=== PATIENT | female | born 1960 | race Caucasian/White ===

== ENCOUNTER → 2020-06-18 10:12 | Outpatient (BNVA) | payer MEDICARE, MEDICAID, SELFPAY | PROVIDERS: PCP Internal Medicine; Referring Provider Internal Medicine; Visit Provider Internal Medicine Gastroenterology | DX: Z13.89 Encounter for screening for other disorder (principal) | CPT/HCPCS: Q3014 ==

== ENCOUNTER 2020-06-25 15:34 | Outpatient (REF) | payer MEDICARE, MEDICAID, SELFPAY | END 2020-06-25 15:35 | disposition home or self-care (01) | LOC: HO.LAB 15:34 | PROVIDERS: Visit Provider Internal Medicine | DX: Z20.828 Contact with and (suspected) exposure to other viral communicable diseases (principal) | CPT/HCPCS: C9803; U0003 ==

== ENCOUNTER → 2020-07-04 10:17 | Outpatient (BNVA) | payer MEDICARE, MEDICAID, SELFPAY | PROVIDERS: PCP Internal Medicine; Referring Provider Internal Medicine; Visit Provider Nurse Practitioner Gerontology | DX: Z13.89 Encounter for screening for other disorder (principal) | CPT/HCPCS: Q3014 ==

== ENCOUNTER → 2020-10-12 09:39 | Outpatient (BNVA) | payer MEDICARE, MEDICAID, SELFPAY | PROVIDERS: PCP Internal Medicine; Visit Provider Internal Medicine Gastroenterology | DX: K85.80 Other acute pancreatitis without necrosis or infection (principal) | CPT/HCPCS: Q3014 ==

== ENCOUNTER 2020-11-15 12:39 | Outpatient (REF) | payer MEDICARE, MEDICAID, SELFPAY | END 2020-11-15 12:40 | disposition home or self-care (01) | LOC: HO.LAB 12:39 | PROVIDERS: PCP Internal Medicine; Visit Provider Internal Medicine | DX: Z13.89 Encounter for screening for other disorder (principal) ==

== ENCOUNTER 2020-11-16 09:38 | Outpatient (REF) | payer MEDICARE, MEDICAID, SELFPAY ==
[2020-11-16 10:18] LABS: MANUAL DIFF FLAG NO
[2020-11-16 10:31] LABS: Eosinophils Absolute Auto 0.1 X10*3/uL (0.0-0.4); Hemoglobin 12.9 g/dl (12.0-16.0); Imm Gran Abs Auto 0.01 X10*3/uL (0.00-0.03); Imm Gran Pct Auto 0.3 % (0.0-0.4); Lymphocytes Absolute Auto 1.2 X10*3/uL (1.2-4.9); Lymphocytes Percent Auto 30.2 % (20-40); Mean Corpuscular HGB Conc 32.3 g/dl (31.0-35.0); Mean Corpuscular Hemoglobin 33.6 pg (27.0-33.0); Mean Corpuscular Volume 104.2 fL (80-98); Mean Platelet Volume 9.7 fL (9.4-12.3); Monocytes Absolute Auto 0.4 X10*3/uL (0.1-1.2); Monocytes Percent Auto 9.6 % (2-11); Neutrophils Absolute Auto 2.3 X10*3/uL (2.0-8.3); Neutrophils Percent Auto 56.9 % (45-73); Platelet Count 178 X10*3/uL (160-400); Red Blood Count 3.84 X10*6/uL (4.20-5.50); Red Cell Distribution Width 13.5 % (11.0-16.0)
[2020-11-16 10:44] LABS: Amylase 62 U/L (28-100); Lipase 17 U/L (8-78)
[2020-11-16 10:50] LABS: Alanine Aminotransferase 19 U/L (0-31); Albumin Level 3.7 g/dL (3.5-5.0); Alkaline Phosphatase 98 U/L (39-117); Anion Gap 10 (12-20); Aspartate Amino Transferase 19 U/L (5-31); Bilirubin Total 0.3 mg/dL (0.0-1.0); Blood Urea Nitrogen 17 mg/dL (9-16); Carbon Dioxide 35 mmol/L (22-29); Chloride 101 mmol/L (96-108); Cholesterol 196 mg/dL; Estimated Glomerular Filt Rate > 60; Glucose Random 86 mg/dL (60-115); HDL Cholesterol 58 mg/dL; LDL Cholesterol Calculated 122 mg/dl; Potassium 4.2 mmol/L (3.3-5.1); Sodium 142 mmol/L (135-145); Total Protein 6.5 g/dL (6.5-8.0); Triglycerides 83 mg/dL
[2020-11-16 11:06] LABS: Free T4 (Free Thyroxine) 0.91 ng/dL (0.71-1.85); Vitamin D 25-OH Total 49.1 ng/mL (>30)
[2020-11-16 11:14] LABS: Ferritin 112 ng/mL (10-250)
[2020-11-16 11:24] LABS: Vitamin B12 483 pg/mL (200-900)
== END 2020-11-16 09:39 | disposition home or self-care (01) ==
LOC: HO.LAB 09:38
PROVIDERS: Internal Medicine Gastroenterology; PCP Internal Medicine; Visit Provider Internal Medicine
DX: K85.80 Other acute pancreatitis without necrosis or infection (principal); E78.00 Pure hypercholesterolemia, unspecified; E03.9 Hypothyroidism, unspecified
CPT/HCPCS: 36415; 80053; 80061; 82150; 82306; 82607; 82728; 82746; 83690; 84439; 84443; 85025

== ENCOUNTER 2020-11-19 12:59 | Outpatient (REF) | payer MEDICARE, MEDICAID, SELFPAY ==
[2020-11-19 13:18] LABS: Glucose Urine UA NEG (NEG); Leukocyte Esterase Urine 2+ (NEG); Nitrite Urine NEG (NEG); Specific Gravity - Urine 1.015 (1.005-1.025); UACC Culture Trigger YES; Urine Blood NEG (NEG); Urine Ketones NEG (NEG); Urine Protein NEG (NEG-TRACE)
[2020-11-19 13:22] LABS: Appearance Urine CLOUDY; Color Urine YELLOW
[2020-11-19 13:44] LABS: Amorphous Sediment Urine 2+ /LPF; Mucus Urine 1+ /LPF; RBC Urine 0 /HPF (0); Squamous Epithelial Cell Urine 1+ /LPF
== END 2020-11-19 13:00 | disposition home or self-care (01) ==
LOC: HO.LNP 12:59
PROVIDERS: Visit Provider Internal Medicine
DX: R30.0 Dysuria (principal)
CPT/HCPCS: 81001; 81003; 87086

== ENCOUNTER 2021-01-04 09:01 | Outpatient (REF) | payer MEDICARE, MEDICAID, SELFPAY ==
[2021-01-04 11:18] LABS: Free T4 (Free Thyroxine) 0.87 ng/dL (0.71-1.85); Thyroid Stimulating Hormone 0.91 uIU/mL (0.32-4.0)
== END 2021-01-04 09:02 | disposition home or self-care (01) ==
LOC: HO.LAB 09:01
PROVIDERS: Nurse Practitioner Gerontology; PCP Internal Medicine; Visit Provider Internal Medicine
DX: E03.8 Other specified hypothyroidism (principal)
CPT/HCPCS: 36415; 84439; 84443

== ENCOUNTER 2021-01-08 14:22 | Outpatient (REF) | payer MEDICARE, MEDICAID, SELFPAY ==
[2021-01-08 14:54] LABS: Glucose Urine UA NEG (NEG); Leukocyte Esterase Urine 1+ (NEG); Nitrite Urine NEG (NEG); Specific Gravity - Urine 1.015 (1.005-1.025); Urine Blood NEG (NEG); Urine Ketones NEG (NEG); Urine Protein NEG (NEG-TRACE)
[2021-01-08 14:57] LABS: Appearance Urine CLEAR; Color Urine YELLOW
[2021-01-08 15:12] LABS: RBC Urine 0-2 /HPF (0)
== END 2021-01-08 14:23 | disposition home or self-care (01) ==
LOC: HO.LNP 14:22
PROVIDERS: Visit Provider Internal Medicine
DX: E03.9 Hypothyroidism, unspecified (principal)
CPT/HCPCS: 81001

== ENCOUNTER → 2021-05-28 09:12 | Outpatient (BNVA) | payer MEDICARE, MEDICAID, SELFPAY | PROVIDERS: PCP Internal Medicine; Visit Provider Internal Medicine Gastroenterology | DX: K85.80 Other acute pancreatitis without necrosis or infection (principal) | CPT/HCPCS: Q3014 ==

== ENCOUNTER 2021-06-24 09:31 | Outpatient (REF) | payer MEDICARE, MEDICAID, SELFPAY | END 2021-06-24 09:32 | disposition home or self-care (01) | LOC: HO.LAB 09:31 | PROVIDERS: PCP Internal Medicine; Visit Provider Internal Medicine | DX: Z13.89 Encounter for screening for other disorder (principal) ==

== ENCOUNTER 2021-08-12 10:15 | Outpatient (REF) | payer MEDICARE, MEDICAID, SELFPAY ==
[2021-08-12 10:53] LABS: MANUAL DIFF FLAG NO
[2021-08-12 11:15] LABS: Basophils Absolute Auto 0.1 X10*3/uL (0.0-0.2); Basophils Percent Auto 1.1 % (0-2); Eosinophils Absolute Auto 0.1 X10*3/uL (0.0-0.4); Eosinophils Percent Auto 1.3 % (0-4); Hematocrit 42.9 % (37.0-47.0); Hemoglobin 13.8 g/dl (12.0-16.0); Imm Gran Abs Auto 0.02 X10*3/uL (0.00-0.03); Imm Gran Pct Auto 0.4 % (0.0-0.4); Lymphocytes Absolute Auto 1.2 X10*3/uL (1.2-4.9); Lymphocytes Percent Auto 25.7 % (20-40); Mean Corpuscular HGB Conc 32.2 g/dl (31.0-35.0); Mean Corpuscular Hemoglobin 33.2 pg (27.0-33.0); Mean Corpuscular Volume 103.1 fL (80.0-98.0); Mean Platelet Volume 9.4 fL (9.4-12.3); Monocytes Absolute Auto 0.4 X10*3/uL (0.1-1.2); Neutrophils Absolute Auto 2.9 x10*3/uL (2.0-8.3); Neutrophils Percent Auto 63.5 % (45-73); Platelet Count 183 X10*3/uL (160-400); Red Blood Count 4.16 X10*6/uL (4.20-5.50); Red Cell Distribution Width 13.7 % (11.0-16.0); White Blood Count 4.6 X10*3/uL (4.8-10.8)
[2021-08-12 11:22] LABS: Appearance Urine CLEAR; Color Urine STRAW; Glucose Urine UA NEG (NEG); Leukocyte Esterase Urine TRACE (NEG); Nitrite Urine NEG (NEG); PH 6.5 (5.0-8.0); Specific Gravity - Urine 1.015 (1.005-1.025); UACC Culture Trigger YES; Urine Blood NEG (NEG); Urine Ketones NEG (NEG); Urine Protein NEG (NEG-TRACE)
[2021-08-12 12:01] LABS: TSH reflex Free T4 0.71 uIU/mL (0.32-4.0)
[2021-08-12 12:02] LABS: Renal Epithelial Cells Urine TRACE /LPF; Squamous Epithelial Cell Urine TRACE /LPF
[2021-08-12 12:03] LABS: RBC Urine 0 /HPF (0)
[2021-08-12 12:09] LABS: Estimated Average Glucose 108 mg/dL; Hemoglobin A1c % 5.4 %
[2021-08-12 12:11] LABS: Alanine Aminotransferase 17 U/L (0-31); Albumin Level 3.8 g/dL (3.5-5.0); Alkaline Phosphatase 104 U/L (39-117); Anion Gap 9 (12-20); Aspartate Amino Transferase 21 U/L (5-31); Bilirubin Total 0.5 mg/dL (0.0-1.0); Blood Urea Nitrogen 17 mg/dL (9-16); Carbon Dioxide 34 mmol/L (22-29); Chloride 103 mmol/L (96-108); Cholesterol 223 mg/dL; Estimated Glomerular Filt Rate 53; Glucose Fasting 94 mg/dL (60-99); HDL Cholesterol 61 mg/dL; LDL Cholesterol Calculated 145 mg/dl; Lipase 14 U/L (8-78); Potassium 4.4 mmol/L (3.3-5.1); Sodium 142 mmol/L (135-145); Total Protein 6.9 g/dL (6.5-8.0); Triglycerides 88 mg/dL
== END 2021-08-12 10:16 | disposition home or self-care (01) ==
LOC: HO.LAB 10:15
PROVIDERS: PCP Internal Medicine; Visit Provider Nurse Practitioner Acute Care
DX: R41.82 Altered mental status, unspecified (principal)
CPT/HCPCS: 36415; 80053; 80061; 81001; 83036; 83690; 84443; 85025; 87086

== ENCOUNTER 2021-08-16 14:05 | Outpatient (REF) | payer MEDICARE, MEDICAID, SELFPAY ==
[2021-08-16 16:12] LABS: Free T4 (Free Thyroxine) 0.81 ng/dL (0.71-1.85); Thyroid Stimulating Hormone 0.92 uIU/mL (0.32-4.0)
[2021-08-20 18:42] LABS: Thyrotropin Receptor Antibody 3.68 IU/L (<=2.00)
[2021-08-23 15:31] LABS: Thyroid Stimulating Immunoglob <89 % baseline (<140)
== END 2021-08-16 14:06 | disposition home or self-care (01) ==
LOC: HO.LAB 14:05
PROVIDERS: PCP Internal Medicine; Visit Provider Nurse Practitioner Gerontology
DX: E03.9 Hypothyroidism, unspecified (principal); E06.3 Autoimmune thyroiditis; Q90.9 Down syndrome, unspecified; Z86.73 Personal history of transient ischemic attack (TIA), and cerebral infarction without residual deficits
CPT/HCPCS: 36415; 83520; 84439; 84443; 84445; 99212

== ENCOUNTER 2021-12-11 13:05 | Outpatient (REF) | payer MEDICARE, MEDICAID, SELFPAY ==
[2021-12-11 14:15] LABS: Appearance Urine CLEAR; Color Urine YELLOW; Glucose Urine UA NEG (NEG); Leukocyte Esterase Urine NEG (NEG); Nitrite Urine NEG (NEG); PH 5.5 (5.0-8.0); Specific Gravity - Urine <= 1.005 (1.005-1.025); Urine Blood NEG (NEG); Urine Ketones NEG (NEG); Urine Protein NEG (NEG-TRACE)
== END 2021-12-11 13:06 | disposition home or self-care (01) ==
LOC: HO.LAB 13:05
PROVIDERS: PCP Internal Medicine; Visit Provider Internal Medicine
DX: R30.0 Dysuria (principal); R41.82 Altered mental status, unspecified
CPT/HCPCS: 81003

== ENCOUNTER → 2022-06-17 09:06 | Outpatient (BNVA) | payer MEDICARE, MEDICAID, SELFPAY | PROVIDERS: PCP Internal Medicine; Visit Provider Urology | DX: R33.9 Retention of urine, unspecified (principal) | CPT/HCPCS: 99212 ==

== ENCOUNTER → 2022-07-10 09:51 | Outpatient (REF) | payer MEDICARE, MEDICAID, SELFPAY ==
--- NOTE | 2022-07-10 10:57 | ECG_ITS ---
Test Reason : preop Blood Pressure : / mmHG Vent. Rate : 055 BPM Atrial Rate : 055 BPM P-R Int : 220 ms QRS Dur : 130 ms QT Int : 478 ms P-R-T Axes : 049 -55 022 degrees QTc Int : 457 ms Sinus bradycardia with 1st degree A-V block Left axis deviation Left bundle branch block Abnormal ECG When compared with ECG of 07-SEP-2019 10:19, Left bundle branch block is now Present Referred By: Yahaira Arana Electronically Signed By:ALESHIA CID
== END ==
LOC: HO.CARD 09:51
PROVIDERS: PCP Internal Medicine; Visit Provider Nurse Practitioner Family
DX: Z01.818 Encounter for other preprocedural examination (principal); E03.9 Hypothyroidism, unspecified
CPT/HCPCS: 93005; 99212

== ENCOUNTER 2022-07-10 10:30 | Outpatient (REF) | payer MEDICARE, MEDICAID, SELFPAY ==
[2022-07-10 13:32] LABS: MANUAL DIFF FLAG NO
[2022-07-10 14:09] LABS: Basophils Percent Auto 1.2 % (0-2); Eosinophils Absolute Auto 0.1 X10*3/uL (0.0-0.4); Eosinophils Percent Auto 3.7 % (0-4); Hematocrit 40.4 % (37.0-47.0); Imm Gran Abs Auto 0.01 X10*3/uL (0.00-0.03); Imm Gran Pct Auto 0.3 % (0.0-0.4); Lymphocytes Absolute Auto 1.1 X10*3/uL (1.2-4.9); Lymphocytes Percent Auto 32.4 % (20-40); Mean Corpuscular HGB Conc 32.2 g/dl (31.0-35.0); Mean Corpuscular Hemoglobin 33.9 pg (27.0-33.0); Mean Corpuscular Volume 105.2 fL (80.0-98.0); Mean Platelet Volume 10.3 fL (9.4-12.3); Monocytes Absolute Auto 0.4 X10*3/uL (0.1-1.2); Monocytes Percent Auto 10.8 % (2-11); Neutrophils Absolute Auto 1.7 x10*3/uL (2.0-8.3); Neutrophils Percent Auto 51.6 % (45-73); Platelet Count 156 X10*3/uL (160-400); Red Blood Count 3.84 X10*6/uL (4.20-5.50); Red Cell Distribution Width 13.4 % (11.0-16.0); White Blood Count 3.2 X10*3/uL (4.8-10.8)
[2022-07-10 14:14] LABS: Prothrombin Time 11.3 SEC (10.0-13.1)
[2022-07-10 14:44] LABS: Alanine Aminotransferase 9 U/L (0-31); Albumin Level 3.7 g/dL (3.5-5.0); Alkaline Phosphatase 97 U/L (39-117); Anion Gap 11 (12-20); Aspartate Amino Transferase 17 U/L (5-31); Bilirubin Total 0.3 mg/dL (0.0-1.0); Blood Urea Nitrogen 19 mg/dL (9-16); Calcium 8.7 mg/dL (8.4-10.2); Carbon Dioxide 31 mmol/L (22-29); Chloride 104 mmol/L (96-108); Cholesterol 186 mg/dL; Estimated Glomerular Filt Rate > 60; Glucose Random 78 mg/dL (60-115); HDL Cholesterol 53 mg/dL; LDL Cholesterol Calculated 112 mg/dl; Potassium 4.2 mmol/L (3.3-5.1); Sodium 142 mmol/L (135-145); Total Protein 6.6 g/dL (6.5-8.0); Triglycerides 107 mg/dL
[2022-07-10 14:48] LABS: Free T4 (Free Thyroxine) 0.97 ng/dL (0.71-1.85); Thyroid Stimulating Hormone 0.55 uIU/mL (0.32-4.0); Vitamin D 25-OH Total 44.9 ng/mL (>30)
[2022-07-10 14:50] LABS: TSH reflex Free T4 0.56 uIU/mL (0.32-4.0)
[2022-07-10 14:51] LABS: Free T4 (Free Thyroxine) 0.93 ng/dL (0.71-1.85); Thyroid Stimulating Hormone 0.52 uIU/mL (0.32-4.0)
[2022-07-10 15:02] LABS: Vitamin B12 347 pg/mL (200-900)
== END 2022-07-10 10:31 | disposition home or self-care (01) ==
LOC: HO.10HDL 10:30
PROVIDERS: Internal Medicine Endocrinology, Diabetes & Metabolism; Absent Provider Internal Medicine; Referring Provider Nurse Practitioner Family; Visit Provider Internal Medicine
DX: Z01.818 Encounter for other preprocedural examination (principal); Z13.29 Encounter for screening for other suspected endocrine disorder; E03.9 Hypothyroidism, unspecified; R41.82 Altered mental status, unspecified; E78.00 Pure hypercholesterolemia, unspecified
CPT/HCPCS: 36415; 80053; 80061; 82306; 82607; 82746; 84439; 84443; 85025; 85610

== ENCOUNTER → 2022-07-31 14:02 | Outpatient (BNVA) | payer MEDICARE, MEDICAID, SELFPAY | PROVIDERS: PCP Internal Medicine; Referring Provider Internal Medicine; Visit Provider Internal Medicine | DX: Z01.810 Encounter for preprocedural cardiovascular examination (principal); I44.7 Left bundle-branch block, unspecified | CPT/HCPCS: 99202 ==

== ENCOUNTER → 2022-08-05 13:51 | Outpatient (REF) | payer MEDICARE, MEDICAID, SELFPAY ==
--- NOTE | 2022-08-05 13:54 | CA_ITS ---
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 The visually estimated ejection fraction is between 65-70%. - E/E prime ratio is >15, consistent with elevated filling pressures. Evidence suggests grade I (mild) diastolic dysfunction. - There is moderate posterior mitral annular calcification. Findings Left Ventricle Normal left ventricular cavity size. The left ventricular systolic function is normal. The visually estimated ejection fraction is between 65-70%. There is no evidence of regional wall motion abnormalities. E/E prime ratio is >15, consistent with elevated filling pressures. Evidence suggests grade I (mild) diastolic dysfunction. There is mild septal asymmetric hypertrophy. LV peak GLS -20.6%. Right Ventricle Normal right ventricular cavity size and systolic function. Atria The left atrium is mildly dilated. Interatrial shunt cannot be excluded. The right atrium is normal in size. Aortic Valve There is a normal trileaflet aortic valve. There is no aortic valve stenosis. There is trace (trivial) aortic valve regurgitation. Mitral Valve There is moderate posterior mitral annular calcification. There is trace mitral valve regurgitation. There is no mitral valve stenosis. Pulmonic Valve The pulmonic valve is likely normal. Tricuspid Valve Normal tricuspid valve structure. There is mild tricuspid valve regurgitation. There is no evidence of pulmonary hypertension. Great Vessels The asc aorta is normal in size. Venous The inferior vena cava is normal in size and collapses greater than 50% with inspiration. Pericardium/Pleural There is no evidence of pericardial effusion. Prior Study Comparison No significant change compared to prior study dated: 07/04/2018. Measurements 2D Linear Measurements IVSd: 1.16 0.6-0.9/0.6-1.0 cm LVIDd: 3.25 3.9-5.3/4.2-5.9 cm LVIDd Index: 2.78 2.4-3.2/2.2-3.1 cm/m2 LVIDs: 1.62 2.0-3.6 cm LVPWd: 1.00 0.7-1.1 cm LA Diam: 2.90 2.7-3.8/3.0-4.0 cm LAIDs Index: 2.48 1.5-2.3 cm/m2 LV Mass: 128.70 67-162/88-224 g LV Mass Index: 110.00 43-95/49-115 g/m2 LVOT Diam: 2.00 3.0+(-)1.3 cm 2D Systolic Function EF 4C: 69.80 >55% EF 2C: 78.10 >55% EF BiP: 74.90 >55% Mitral Valve MV Pk E: 1.03 MV PK A: 1.12 MV Decel Time: 369.00 E/A: 0.90 E'Lateral: 5.48 E'Medial: 5.03 E/E' Med: 20.50 E/E' Lat: 18.80 PHT: 108.00 MVA PHT: 2.04 Decel Blackford: 2.81 Aortic Valve AoV Pk Paul: 1.48 AoV Mn Paul: 1.10 AoV VTI: 0.37 AoV Pk Grad: 9.00 Aov Mn Grad: 5.00 HAL Cont.VTI: 2.74 LVOT LVOT Pk Paul: 1.25 LVOT Mn Paul: 0.95 LVOT VTI: 0.33 LVOT Pk Grad: 6.00 LVOT Mn Grad: 4.00 LVOT Diam: 2.00 LVOT Area: 3.14 Diastolic Function MV Pk E: 1.03 MV Pk A: 1.12 E/A: 0.90 E'Medial: 5.03 E/E' Med: 20.50 E' Laterial: 5.48 E/E' Lat: 18.80 Right Ventricle TAPSE (mm): 20.00 TVS' Paul: 11.40 Tricuspid Valve TR Pk Paul: 2.50 TR Pk Grad: 25.00 RA Press: 3.00 RVSP: 28.00 Great Vessels Aorta Sinus of Valsalva: 3.46 2.0-3.[address] Ridge: 2.36 1.7-3.4 cm Ao Asc: 3.30 2.1-3.4 cm Updated in Other Vendor System with Status of Final Tian Crane MD electronically signed on 08/06/2022 9:01:37 AM with status of Final
== END ==
LOC: HO.CARD 13:51
PROVIDERS: Visit Provider Internal Medicine
DX: Z01.810 Encounter for preprocedural cardiovascular examination (principal); I44.7 Left bundle-branch block, unspecified
CPT/HCPCS: 93306; 93356

== ENCOUNTER 2022-08-19 08:00 | Outpatient (REF) | payer MEDICARE, MEDICAID, SELFPAY ==
[2022-08-19 08:30] LABS: MANUAL DIFF FLAG NO
[2022-08-19 09:21] LABS: Basophils Absolute Auto 0.1 X10*3/uL (0.0-0.2); Basophils Percent Auto 1.3 % (0-2); Eosinophils Absolute Auto 0.1 X10*3/uL (0.0-0.4); Eosinophils Percent Auto 1.3 % (0-4); Hematocrit 38.3 % (37.0-47.0); Hemoglobin 12.2 g/dl (12.0-16.0); Imm Gran Abs Auto 0.01 X10*3/uL (0.00-0.03); Imm Gran Pct Auto 0.3 % (0.0-0.4); Lymphocytes Absolute Auto 0.8 X10*3/uL (1.2-4.9); Lymphocytes Percent Auto 21.5 % (20-40); Mean Corpuscular HGB Conc 31.9 g/dl (31.0-35.0); Mean Corpuscular Hemoglobin 33.8 pg (27.0-33.0); Mean Corpuscular Volume 106.1 fL (80.0-98.0); Mean Platelet Volume 10.2 fL (9.4-12.3); Monocytes Absolute Auto 0.3 X10*3/uL (0.1-1.2); Monocytes Percent Auto 9.1 % (2-11); Neutrophils Absolute Auto 2.5 x10*3/uL (2.0-8.3); Neutrophils Percent Auto 66.5 % (45-73); Platelet Count 159 X10*3/uL (160-400); Red Blood Count 3.61 X10*6/uL (4.20-5.50); Red Cell Distribution Width 13.2 % (11.0-16.0); White Blood Count 3.7 X10*3/uL (4.8-10.8)
[2022-08-19 10:19] LABS: Anion Gap 13 (12-20); Blood Urea Nitrogen 24 mg/dL (9-16); Calcium 8.9 mg/dL (8.4-10.2); Carbon Dioxide 31 mmol/L (22-29); Chloride 105 mmol/L (96-108); Estimated Glomerular Filt Rate 56; Glucose Random 83 mg/dL (60-115); Potassium 4.2 mmol/L (3.3-5.1); Sodium 145 mmol/L (135-145)
== END 2022-08-19 08:01 | disposition home or self-care (01) ==
LOC: HO.LAB 08:00
PROVIDERS: PCP Internal Medicine; Visit Provider Nurse Practitioner Family
DX: Z01.818 Encounter for other preprocedural examination (principal); Z13.0 Encounter for screening for diseases of the blood and blood-forming organs and certain disorders involving the immune mechanism
CPT/HCPCS: 36415; 80048; 85025

== ENCOUNTER 2023-01-07 12:56 | Outpatient (REF) | payer MEDICARE, MEDICAID, SELFPAY ==
[2023-01-07 14:02] LABS: Hematocrit 40.7 % (37.0-47.0); Hemoglobin 13.2 g/dl (12.0-16.0); Mean Corpuscular HGB Conc 32.4 g/dl (31.0-35.0); Mean Corpuscular Hemoglobin 34.6 pg (27.0-33.0); Mean Corpuscular Volume 106.5 fL (80.0-98.0); Mean Platelet Volume 10.1 fL (9.4-12.3); Platelet Count 170 X10*3/uL (160-400); Red Blood Count 3.82 X10*6/uL (4.20-5.50); Red Cell Distribution Width 13.8 % (11.0-16.0); White Blood Count 3.8 X10*3/uL (4.8-10.8)
[2023-01-07 14:33] LABS: Anion Gap 15 (12-20); Blood Urea Nitrogen 17 mg/dL (9-16); Calcium 9.2 mg/dL (8.4-10.2); Carbon Dioxide 26 mmol/L (22-29); Chloride 108 mmol/L (96-108); Estimated Glomerular Filt Rate > 60; Glucose Random 68 mg/dL (60-115); Potassium 4.5 mmol/L (3.3-5.1); Sodium 144 mmol/L (135-145)
[2023-01-07 14:53] LABS: TSH reflex Free T4 1.02 uIU/mL (0.32-4.0)
== END 2023-01-07 12:57 | disposition home or self-care (01) ==
LOC: HO.LAB 12:56
PROVIDERS: PCP Internal Medicine; Visit Provider Nurse Practitioner Family
DX: Z01.818 Encounter for other preprocedural examination (principal)
CPT/HCPCS: 36415; 80048; 84443; 85027; 85610; 93005

== ENCOUNTER 2023-04-27 15:47 | Inpatient (IN) | payer MEDICARE, MEDICAID, SELFPAY ==
--- NOTE | ~2023-04-27 | CT_ITS ---
EXAMINATION: CT ANGIOGRAM OF THE CHEST WITH AND WITHOUT CONTRAST (CT PULMONARY ANGIOGRAM FOR PE) CLINICAL INFORMATION: Reason for Exam hypoxia, covid 3wk ago COMPARISON: Previous chest x-ray most recent from 2019 TECHNIQUE: Prior to contrast administration, noncontrast localization images were obtained. Subsequently, multidetector volumetric imaging was performed from the thoracic inlet to below the diaphragms following the administration of 80 mL Omnipaque 350 intravenous contrast. No contrast reaction reported Sagittal, coronal, and MIP oblique sagittal reformatted images were obtained on the CT workstation, uploaded to PACS, and reviewed. This CT examination was performed using dose optimization techniques as appropriate, variously including the following: *Automated exposure control *Adjustment of mA and/or kV according to patient size (this includes techniques or standardized protocols for targeted exams where dose is matched to indication/reason for exam; i.e. extremities or head) *Use of iterative reconstruction technique Total exam dose-length product 137 mGy-cm FINDINGS: QUALITY OF STUDY/CONTRAST BOLUS: Satisfactory. PULMONARY ARTERIES: No pulmonary emboli. THORACIC AORTA: No aneurysm. LUNG: Large area of right or space disease suggestive of pneumonia. Smaller areas of airspace right middle lobe and left lower lobe small areas well. PLEURA: No pleural effusion or pneumothorax. MEDIASTINUM: Slightly enlarged heart size. No pericardial effusion. Enlarged right subcarinal lymph node measuring 2 cm in short axis. Additional smaller mediastinal lymph nodes. Difficult to exclude wall thickening of the midthoracic esophagus versus mediastinal adenopathy or changes due to underdistention. No evidence of septal bowing or right heart strain. CORONARY ARTERY CALCIFICATION: None visualized on this study. CHEST WALL/AXILLA: No axillary or internal mammary lymphadenopathy. OSSEOUS STRUCTURES: No acute or suspicious osseous abnormality. UPPER ABDOMEN: Small cyst in the right lobe of the liver. There is Reflux of contrast into the hepatic veins to suggest elevated right heart pressures. CT/CT angio chest PE protocol IMPRESSION: No evidence of pulmonary embolism. Right lower lobe pneumonia and smaller pneumonia in the right middle and left lower lobes. Enlarged right subcarinal mediastinal lymph node. Question enlarged left precarinal lymph node versus thickening of the esophagus. Chest CT follow-up with IV contrast following resolution of pneumonia recommended. VTE:
--- NOTE | ~2023-04-27 | CT_ITS ---
EXAMINATION: CT ABDOMEN AND PELVIS WITH CONTRAST CLINICAL INFORMATION: Abdominal pain and diarrhea COMPARISON: Previous CT ultrasound and MR of the abdomen from 2019 TECHNIQUE: Multidetector volumetric images were obtained from the superior aspect of the liver through the pubic symphysis following administration 85 mL of Omnipaque 350 intravenous contrast. Sagittal and coronal reformatted images were obtained on the technologist's workstation. Oral contrast: Yes This CT examination was performed using dose optimization techniques as appropriate, variously including the following: *Automated exposure control *Adjustment of mA and/or kV according to patient size (this includes techniques or standardized protocols for targeted exams where dose is matched to indication/reason for exam; i.e. extremities or head) *Use of iterative reconstruction technique DLP: 286 mGy-cm FINDINGS: Limited due to motion artifact. LUNG BASES: See chest CT from today LIVER, GALLBLADDER, AND BILIARY TREE: The liver is normal in size, shape, and attenuation. Stable 1 cm low-attenuation lesion in posterior segment of the right lobe the liver suggestive of a cyst. No other focal hepatic lesion or biliary ductal dilatation is present. The gallbladder is unremarkable with no evidence of radiopaque gallstones, gallbladder wall thickening, or obvious pericholecystic inflammatory changes. PANCREAS: Unremarkable. SPLEEN: Unremarkable. ADRENAL GLANDS: Unremarkable. KIDNEYS AND URETERS: The kidneys are normal in size, shape, and attenuation. No hydronephrosis, hydroureter, or calculi seen. No perinephric stranding. BLADDER: Well distended bladder. GASTROINTESTINAL TRACT: The small and large bowel are unremarkable. The appendix is not seen. The stomach is slightly dilated and fluid filled. ABDOMINAL WALL: No significant hernia is appreciated. LYMPH NODES: Normal. VASCULAR: Unremarkable. PELVIC VISCERA: Unremarkable. OSSEOUS STRUCTURES: Mild anterior subluxation of L3 with respect to L4 probably secondary to facet arthritis. CT/CT abdomen pelvis w IV con IMPRESSION: Limited due to motion artifact. Slightly dilated fluid-filled stomach. Stable liver cyst. Distended bladder. Fleischner guidelines were followed.
[2023-04-27 15:58] VITALS: BP 100/58; BP 126/83; PULSE 55; PULSE 69; RESP 18; TEMP 37.1; O2SAT 90; O2SAT 92; BMI 18.7
[2023-04-27 16:00] VITALS: O2SAT 86
--- NOTE | 2023-04-27 16:17 | ED_ITS ---
HPI - Abdominal Pain General Chief Complaint: Abdominal Pain Stated Complaint: abd pain, diarrhea, non verbal Time Seen by Provider: 04/27/23 15:57 Source: EMS and other (snf staff) Mode of arrival: EMS Limitations: physical limitation (Dementia, Down syndrome,) History of Present Illness HPI narrative: Patient is a 63-year-old female was brought to the emergency department via EMS with detention. Patient reportedly had two semi formed bowel movements today. After the last one she appeared as though she turned very white and per the anhydrous ammonia production supervisor present, the prior staff member thought as though her knees were going to give way so she lowered the patient to the floor. There was no reported loss of consciousness. Upon palpating her abdomen the patient appeared to be wincing in pain at that time, EMS was then called. When asked, staff deny any recent constipation or straining, having difficulty with bowel movements. Patient is noted to be hypoxic on room air with O2 saturation 86% upon arrival, when asked, staff reports that she has not had any recent respiratory symptoms, the household had COVID-19 3 weeks ago, patient reportedly had a mild cough in the beginning but has not had any issues since then. She does have dysphagia and is a aspiration precaution with thickened liquids and pureed diet Related Data Home Medications Medication Instructions Recorded Confirmed gabapentin 300 mg capsule 300 mg PO BID 01/10/21 04/27/23 fluoride (sodium) 1.1 % dental 1 appl PO BEDTIME 06/17/22 04/27/23 cream (SF 5000 Plus) oxcarbazepine 300 mg tablet 300 mg PO BID 06/17/22 04/27/23 ondansetron HCl 4 mg tablet 4 mg PO Q6H PRN Nausea And Vomiting 07/31/22 04/27/23 oxcarbazepine 150 mg tablet 150 mg PO BID 07/31/22 04/27/23 (Trileptal) lorazepam 1 mg tablet 1 mg PO DAILY PRN Anxiety 04/27/23 04/27/23 Previous Rx's Medication Instructions Recorded trazodone 50 mg tablet 50 mg PO BEDTIME PRN sleep 90 days 06/24/22 #90 tabs cholecalciferol (vitamin D3) 25 25 mcg PO QAM #90 tabs 07/02/22 mcg (1,000 unit) tablet starch (thickening) (Thick-It oral See Rx Instructions PO TIDWMEAL 07/25/22 powder) #6,120 grams aspirin 81 mg chewable tablet 81 mg PO DAILY #90 tabs 08/12/22 sennosides 8.6 mg-docusate sodium 1 tab PO BEDTIME #28 tabs 08/12/22 50 mg tablet (Senna Plus) calcium carbonate 600 mg-vitamin 1 tab PO BID 28 days #180 tabs 09/23/22 D3 10 mcg (400 unit) tablet Synthroid 137 mcg tablet 137 mcg PO DAILY 30 days #90 tabs 01/01/23 (levothyroxine) ibuprofen 100 mg/5 mL oral 200 mg (10 mL) PO Q6H PRN pain 03/16/23 suspension #120 mL acetaminophen 650 mg/20.3 mL oral 650 mg (20.3 mL) PO Q6H PRN fever 04/22/23 solution or pain #609 mL Allergies Allergy/AdvReac Type Severity Reaction Status Date / Time Sulfa (Sulfonamide Allergy Mild HIVES Verified 01/07/23 12:13 Antibiotics) sulfamethoxazole Allergy Mild HIVES Verified 01/07/23 12:13 [From Bactrim] amoxicillin [Amoxicillin] Allergy Unknown HIVES Verified 01/07/23 12:13 Clindamycin HCl Allergy Unknown rash Verified 01/07/23 12:13 trimethoprim [From Bactrim] Allergy Unknown HIVES Verified 01/07/23 12:13 Review of Systems Review of Systems Yes Unobtainable due to mental status PMFSH Past Medical History Attestation statement: The following information was validated with the patient. Source: old records reviewed Medical History Preoperative cardiovascular examination New onset left bundle branch block (LBBB) Lethargy COVID-19 virus infection Mental status alteration Medicare annual wellness visit, subsequent Colon cancer screening Atlantoaxial instability Cholelithiasis Mental and behavioral problem Hypercholesterolemia Vitamin D deficiency Closed right ankle fracture Patent foramen ovale Hypothyroid Megaloblastic anemia CVA (cerebral vascular accident) Cataracts, bilateral Down syndrome Jorge L's disease Surgical History Clubfoot Hx of tubal ligation Hx of cataract surgery History of colonoscopy Family History Family History Father No problems noted. Mother Hx of cancer of lung Social History Social History Household Members: Unknown / Unable to assess Household Members Other:: CHD Housing: Other Housing Other:: detention Unable to assess alcohol history related to: Unable to respond and Unknown Alcohol intake: never Patient Tobacco Use Status: Never used Tobacco e-Cigarette/Vaping Use: Never Used Second Hand Smoke Exposure: No Advance Directives Date on File: 04/27/23 service: No Current occupational status: disabled Cognitive needs: Yes Hearing needs: No Vision needs: No Physical Exam ED Vital Signs: Vital Signs - 24 hr 04/27/23 15:58 04/27/23 16:00 04/27/23 20:01 Temperature 98.8 F Pulse Rate 69 77 Respiratory Rate 18 16 Blood Pressure 100/58 L Pulse Oximetry 90 L 86 L 88 L Oxygen Delivery Method Nasal Cannula Room Air Room Air BMI result Body Mass Index 18.7 Appearance: Alert.? Nonverbal. No acute distress.? Baseline affect per staff member. Eyes: Pupils equal, round and reactive to light.? ENT: Pharynx normal.?? Neck: Normal inspection.? Neck supple.?? CVS: Heart sounds normal. Normal heart rate and rhythm.? Pulses normal.?? Respiratory: No respiratory distress.? Lung sounds clear to auscultation bilaterally. Room-air hypoxia?? Abdomen: Soft and non-tender. Hyperactive bowel sounds. No pulsatile mass.?? Skin: Skin warm and dry.? Normal skin color.? ? Extremities: No lower extremity edema.? No calf ttp? Neuro: Moves all extremities spontaneously. Course Reevaluation(s) Reevaluation #1: CBC is without leukocytosis. Does not meet SIRS criteria. Lactic acid is 2.2, likely secondary to hypoxia, not consistent with sepsis. CT angio of the chest without evidence of pulmonary embolism, there is however a multilobar pneumonia, given history of dysphagia, concern for aspiration pneumonia, will cover with ceftriaxone and metronidazole given allergies. Discussed this case with hospitalist, Dr. Patel, accepted for admission to medicine service Time: 20:03 Medical Decision Making Medical Decision Making MDM Narrative: Patient is a 63-year-old female with past medical history of Down syndrome, left bundle-branch block, urinary retention, hypercholesterolemia, Jorge L's, hypothyroidism, pancreatitis, dementia, dysphagia, CVA, patent Preston ovale, cholelithiasis presenting to emergency department after a reported near syncopal episode after bowel movement, initial concern of abdominal pain upon palpation. Upon arrival her abdominal examination is benign, she has hyperactive bowel sounds, no rigidity guarding or distension. She is noted to have room air hypoxia without any respiratory distress, she is afebrile without tachycardia. She had recent COVID-19 infection, this coupled with her history of dysphagia, plan to obtain CT angio of the chest to exclude pulmonary embolism vs. pneumonia with aspiration risk. Im addition will obtain CT of the abdomen and pelvis to exclude intra-abdominal pathology. Will obtain CBC to evaluate for leukocytosis/ anemia, CMP and lipase to evaluate for abnormal electrolytes /abnormal renal function/ abnormal hepatic/biliary function, and Urinalysis. Differential Diagnosis Differential Diagnoses: The differential diagnosis associated with the presentation includes (Gastroenteritis, diverticulitis, appendicitis, bowel obstruction, aspiration will plan, pneumonia, pulmonary embolism, presyncope, vasovagal) Admission/Observation Consideration of admission/observation: Escalation of care including admission/observation considered (Considered admission for near syncope, hypoxia, see course narrative for further detail) Lab Data MDM Lab Attestation statement: I reviewed the patient's lab results. (See course narrative for further detail) 04/27/23 16:43 04/27/23 16:43 Labs: Lab Results 04/27/23 04/27/23 04/27/23 Range/Units 16:43 19:02 19:50 WBC 5.6 (4.8-10.8) X10*3/uL RBC 4.11 L (4.20-5.50) X10*6/uL Hgb 14.0 (12.0-16.0) g/dl Hct 43.3 (37.0-47.0) % MCV 105.4 H (80.0-98.0) fL MCH 34.1 H (27.0-33.0) pg MCHC 32.3 (31.0-35.0) g/dl RDW 13.8 (11.0-16.0) % Plt Count 163 (160-400) X10*3/uL MPV 9.5 (9.4-12.3) fL Immature Gran % (Auto) 0.5 H (0.0-0.4) % Neut % (Auto) 85.4 H (45-73) % Lymph % (Auto) 11.0 L (20-40) % Barrow % (Auto) 2.3 (2-11) % Eos % (Auto) 0.4 (0-4) % Baso % (Auto) 0.4 (0-2) % Lymph # (Auto) 0.6 L (1.2-4.9) X10*3/uL Barrow # (Auto) 0.1 (0.1-1.2) X10*3/uL Eos # (Auto) 0.0 (0.0-0.4) X10*3/uL Baso # (Auto) 0.0 (0.0-0.2) X10*3/uL Abs Immat Gran (auto) 0.03 (0.00-0.03) X10*3/uL Absolute Neuts (auto) 4.8 (2.0-8.3) x10*3/uL Absolute Nucleated RBC 0.000 (0.0-0.012) X10*3/uL Nucleated RBC % (auto) 0.0 (0.0-0.2) /100WBC PT 10.4 L (11.1-13.3) SEC INR 0.9 (0.9-1.1) Sodium 143 (135-145) mmol/L Potassium 4.2 (3.3-5.1) mmol/L Chloride 104 (96-108) mmol/L Carbon Dioxide 30 H (22-29) mmol/L Anion Gap 13 (12-20) BUN 23 H (9-16) mg/dL Creatinine 0.94 (0.5-1.4) mg/dL Estim Creat Clear Calc 39.1 Estimated GFR > 60 Random Glucose 109 (60-115) mg/dL Lactic Acid 2.2 H* (0.5-2.0) mmol/L Lactic Acid F/U @ 2Hr 1.5 (0.5-2.0) mmol/L Calcium 9.2 (8.4-10.2) mg/dL Magnesium 2.1 (1.6-2.6) mg/dL Total Bilirubin 0.2 (0.0-1.0) mg/dL AST 23 (5-31) U/L ALT 16 (0-31) U/L Alkaline Phosphatase 88 (39-117) U/L B-Natriuretic Peptide 92 (<100) pg/mL Total Protein 7.0 (6.5-8.0) g/dL Albumin 3.6 (3.5-5.0) g/dL Lipase 13 (8-78) U/L Urine Color Yellow Urine Appearance Clear Urine pH 7.5 (5.0-9.0) Ur Specific Tabiona 1.020 (1.005-1.025) Urine Protein Negative (Neg-Trace) mg/dL Urine Glucose (UA) Negative (Negative) mg/dL Urine Ketones Negative (Negative) mg/dL Urine Blood Negative (Negative) Urine Nitrite Negative (Negative) Ur Leukocyte Esterase Negative (Negative) Stool Occult Blood NEGATIVE (NEGATIVE) COVID-19 (DENIZ) Positive A (Negative) COVID-19 Clin Com See Note Influenza Type A (EDILBERTO) Negative (Negative) Influenza Type B (EDILBERTO) Negative (Negative) Influenza A & B Note See Note Independent Interpretation I performed an independent interpretation of an: CT Scan Radiology Impression Discussion of test interpretation with radiology: I have reviewed the radiologist's reading. Radiologist Impression: CT/CT angio chest PE protocol IMPRESSION: No evidence of pulmonary embolism. Right lower lobe pneumonia and smaller pneumonia in the right middle and left lower lobes. Enlarged right subcarinal mediastinal lymph node. Question enlarged left precarinal lymph node versus thickening of the esophagus. Chest CT follow-up with IV contrast following resolution of pneumonia recommended. CT/CT abdomen pelvis w IV con IMPRESSION: Limited due to motion artifact. Slightly dilated fluid-filled stomach. Stable liver cyst. Distended bladder. Independent Historian Clinical information obtained from an independent historian. History obtained from or confirmed by: EMS and Other (snf staff) External Record Review External record reviewed: Outpatient record and Prior outpatient labs Medications Administered Generic Name Dose Route Start Last Admin Trade Name Freq PRN Reason Stop Dose Admin Dexamethasone Sodium Phosphate 6 mg 04/27/23 20:15 04/27/23 21:44 Dexamethasone Sod Phosphate 4 Mg/Ml Vial IVPUSH 6 mg DAILY DANDY Administration Enoxaparin Sodium 40 mg 04/27/23 21:00 04/27/23 21:44 Enoxaparin Sodium 40 Mg/0.4 Ml Syringe SUBCUT 40 mg Q24H DANDY Administration Azithromycin 500 mg/ Sodium 250 mls @ 125 mls/hr 04/27/23 21:00 04/28/23 00:43 Chloride IV Infused Q24H DANDY Infusion Sodium Chloride 3 ml 04/28/23 00:00 04/28/23 00:43 0.9 % Sodium Chloride Flush 3 Ml Syringe IVFLUSH 3 ml QSHIFT DANDY Administration Discontinued Medications Generic Name Dose Route Start Last Admin Trade Name Lion PRN Reason Stop Dose Admin Sodium Chloride 1,000 mls @ 999 mls/hr 04/27/23 17:15 04/27/23 19:26 Ns IV 04/27/23 18:15 Infused .Q1H1M DANDY Infusion Ceftriaxone Sodium 1 gm/ 50 mls @ 100 mls/hr 04/27/23 20:05 04/27/23 21:22 Sodium Chloride IV 04/27/23 20:34 Infused ONCE ONE Infusion Metronidazole 500 mg in 100 mls @ 100 mls/hr 04/27/23 20:05 04/27/23 22:26 Flagyl IV 04/27/23 21:04 Infused ONCE ONE Infusion Iohexol 100 ml 04/27/23 18:34 04/27/23 18:34 Iohexol 350 Mg/Ml 100 Ml Infus..Btl IV 04/27/23 18:35 65 ml ONCE ONE Administration Lorazepam 1 mg 04/27/23 19:14 04/27/23 19:24 Lorazepam 1 Mg Tablet PO 04/27/23 19:15 1 mg ONCE ONE Administration Lorazepam 1 mg 04/27/23 20:23 04/27/23 20:41 Lorazepam 2 Mg/Ml Vial IVPUSH 04/27/23 20:24 1 mg STAT STA Administration Oxcarbazepine 300 mg 04/27/23 20:49 04/27/23 21:44 Oxcarbazepine 300 Mg Tablet PO 04/27/23 20:50 300 mg ONCE ONE Administration Critical Care Time Critical Care Time Critical Care Time: Yes Total Critical Care Time: 35 Attestation: I personally attest to this critical care time spent taking care of the patient exclusive of all other billable procedures was approximately 35 minutes including initial evaluation of patient, ordering tests, x-ray interpretation, EKG interpretation, medical consultation, documentation, re-evaluation. Discharge Plan Discharge Clinical Impression: Acute hypoxic respiratory failure, Pneumonia Patient Disposition: Admitted As Inpatient Interventions: Admission Worksheet (ED) Last Done: 04/27/23 23:40 Discharge Date/Time: 04/27/23 23:59
[2023-04-27 16:51] LABS: MANUAL DIFF FLAG NO
[2023-04-27 16:53] LABS: OBS Int Ctl Valid YES; OBS1 NEGATIVE (NEGATIVE)
[2023-04-27 16:58] LABS: Basophils Percent Auto 0.4 % (0-2); Eosinophils Percent Auto 0.4 % (0-4); Hematocrit 43.3 % (37.0-47.0); Imm Gran Abs Auto 0.03 X10*3/uL (0.00-0.03); Imm Gran Pct Auto 0.5 % (0.0-0.4); Lymphocytes Absolute Auto 0.6 X10*3/uL (1.2-4.9); Mean Corpuscular HGB Conc 32.3 g/dl (31.0-35.0); Mean Corpuscular Hemoglobin 34.1 pg (27.0-33.0); Mean Corpuscular Volume 105.4 fL (80.0-98.0); Mean Platelet Volume 9.5 fL (9.4-12.3); Monocytes Absolute Auto 0.1 X10*3/uL (0.1-1.2); Monocytes Percent Auto 2.3 % (2-11); Neutrophils Absolute Auto 4.8 x10*3/uL (2.0-8.3); Neutrophils Percent Auto 85.4 % (45-73); Platelet Count 163 X10*3/uL (160-400); Red Blood Count 4.11 X10*6/uL (4.20-5.50); Red Cell Distribution Width 13.8 % (11.0-16.0); White Blood Count 5.6 X10*3/uL (4.8-10.8)
[2023-04-27 17:01] LABS: INTERNATIONAL NORM RATIO 0.9 (0.9-1.1); Prothrombin Time 10.4 SEC (11.1-13.3)
[2023-04-27 17:07] LABS: COVID-19 Test Positive (Negative); IDNOW Serial# BCCEAD1C; Lactic Acid 2.2 mmol/L (0.5-2.0)
[2023-04-27 17:09] LABS: IDNOW Serial# 9DB6401D; Influenza A Negative (Negative); Influenza B2 Negative (Negative)
[2023-04-27 17:12] LABS: Alanine Aminotransferase 16 U/L (0-31); Albumin Level 3.6 g/dL (3.5-5.0); Alkaline Phosphatase 88 U/L (39-117); Anion Gap 13 (12-20); Aspartate Amino Transferase 23 U/L (5-31); Bilirubin Total 0.2 mg/dL (0.0-1.0); Blood Urea Nitrogen 23 mg/dL (9-16); Calcium 9.2 mg/dL (8.4-10.2); Carbon Dioxide 30 mmol/L (22-29); Chloride 104 mmol/L (96-108); Creatinine Clr Calc Pharmacy 39.1; Estimated Glomerular Filt Rate > 60; Glucose Random 109 mg/dL (60-115); Lipase 13 U/L (8-78); Magnesium 2.1 mg/dL (1.6-2.6); Potassium 4.2 mmol/L (3.3-5.1); Sodium 143 mmol/L (135-145)
[2023-04-27 17:14] LABS: B Type Natriuretic Peptide 92 pg/mL (<100)
[2023-04-27] MEDS: 0.9 % Sodium Chloride 1,000 ML 999 ML IV (17:33)
[2023-04-27] MEDS: iohexoL 350 MG/ML 100 ML INFUS..BTL IV (18:34)
[2023-04-27 18:49] LABS: Reflex Lactate? Lactic Acid Added
[2023-04-27 19:18] LABS: ~Lactic Acid-LAB USE ONLY 1.5 mmol/L (0.5-2.0)
--- NOTE | 2023-04-27 19:20 | PC.NURSE ---
Patient refusing to put on oxygen and O2 sat monitor on. Cody RENTERIA notified [facility] gives her 1mg ativan po. Patient still refusing to put on oxygen.
[2023-04-27] MEDS: LORazepam 1 MG TABLET PO (19:24)
--- NOTE | 2023-04-27 19:59 | PC.NURSE ---
Addendum entered by Marysol Negron 04/27/23 20:20: Dr. Patel also aware. Addendum entered by Marysol Negron 04/27/23 20:01: pt also refusing bp. Original Note: pt straight cathed for UA; pt tolerated well. 300mL urine upon insertion; sent to lab for UA. retirement staff at bedside. pt refusing nasal cannula for o2 administration; sats 88% on RA. [facility] THERAPY COORDINATOR aware. respirations even and unlabored; no respiratory distress noted at this time. pt able to speak full clear sentences.
[2023-04-27 20:01] VITALS: PULSE 77; RESP 16; O2SAT 88
[2023-04-27 20:12] LABS: Appearance Urine Clear; Color Urine Yellow; Glucose Urine UA Negative (Negative); Leukocyte Esterase Urine Negative (Negative); Nitrite Urine Negative (Negative); PH 7.5 (5.0-9.0); Urine Blood Negative (Negative); Urine Ketones Negative (Negative); Urine Protein Negative (Neg-Trace)
--- NOTE | 2023-04-27 20:16 | P.HPHOSP_ITS ---
History of Present Illness Date of Service: 04/27/23 Chief Complaint: Generalized weakness This is a 63-year-old female with pertinent history of Down syndrome with moderate intellectual disability, hypothyroidism, mood disorder who was sent to the emergency department from [place] [facility] for evaluation of diarrhea and weakness. Unable to obtain history from the patient due to Down syndrome and moderate intellectual disability. History obtained from mall plant caretaker at bedside and ER provider. Patient had 2 semi-formed bowel movements and abdominal discomfort. In the emergency department and upon EMS arrival, patient was noted to be hypoxemic. Unable to obtain review of systems. Does have mild cough. No cough with eating. She is on thickened liquids with pureed diet. Review of Systems 2 Review of Systems: Yes Unobtainable due to mental condition [facility] Medical History Preoperative cardiovascular examination New onset left bundle branch block (LBBB) Lethargy COVID-19 virus infection Mental status alteration Medicare annual wellness visit, subsequent Colon cancer screening Atlantoaxial instability Cholelithiasis Mental and behavioral problem Hypercholesterolemia Vitamin D deficiency Closed right ankle fracture Patent foramen ovale Hypothyroid Megaloblastic anemia CVA (cerebral vascular accident) Cataracts, bilateral Down syndrome Jorge L's disease Family History Father No problems noted. Mother Hx of cancer of lung Surgical History Clubfoot Hx of tubal ligation Hx of cataract surgery History of colonoscopy Social History Household Members Other:: [facility] Housing: Other Housing Other:: [facility] [employer] Unable to assess alcohol history related to: Unable to respond Alcohol intake: never Patient Tobacco Use Status: Never used Tobacco Smoked in Last 30 Days: No e-Cigarette/Vaping Use: Never Used Second Hand Smoke Exposure: No Use of substances other than those prescribed or required for medical reasons: No Advance Directives: Yes Advance Directives Information Provided: No Advance Directives on File: No Patient : No service: No Current occupational status: disabled Cognitive needs: Yes Hearing needs: No Vision needs: No Meds Allergies Allergy/AdvReac Type Severity Reaction Status Date / Time Sulfa (Sulfonamide Allergy Mild HIVES Verified 01/07/23 12:13 Antibiotics) sulfamethoxazole Allergy Mild HIVES Verified 01/07/23 12:13 [From Bactrim] amoxicillin [Amoxicillin] Allergy Unknown HIVES Verified 01/07/23 12:13 Clindamycin HCl Allergy Unknown rash Verified 01/07/23 12:13 trimethoprim [From Bactrim] Allergy Unknown HIVES Verified 01/07/23 12:13 Active Medications: Current Medications Ceftriaxone Sodium 1 gm/ (Sodium Chloride) 50 mls @ 100 mls/hr IV ONCE ONE Stop: 04/27/23 20:34 Metronidazole (Flagyl) 500 mg in 100 mls @ 100 mls/hr IV ONCE ONE Stop: 04/27/23 21:04 Home Medications Medication Instructions Recorded Confirmed Last Taken Type gabapentin 300 mg capsule 300 mg PO BID 01/10/21 01/07/23 Unknown History ketoconazole 2 % topical cream 1 appl topical 07/15/21 01/07/23 Unknown History fluoride (sodium) 1.1 % dental appl PO 06/17/22 01/07/23 Unknown History cream (SF 5000 Plus) oxcarbazepine 300 mg tablet 300 mg PO BID 06/17/22 01/07/23 Unknown History ondansetron HCl 4 mg tablet 4 mg PO Q6H PRN 07/31/22 01/07/23 Unknown History oxcarbazepine 150 mg tablet 150 mg PO BID 07/31/22 01/07/23 Unknown History (Trileptal) Physical Exam 2 Vital Signs and Narrative: Vital Signs: Last Vital Signs Temp 98.8 F 04/27/23 15:58 Pulse 77 04/27/23 20:01 Resp 16 04/27/23 20:01 BP 100/58 L 04/27/23 15:58 Pulse Ox 88 L 04/27/23 20:01 O2 Del Method Room Air 04/27/23 20:01 Oxygen Flow Rate 2 04/27/23 15:58 BMI result Body Mass Index 18.7 Middle-aged female lying in bed on supplemental oxygen Neck supple, no JVD Regular rate and rhythm, S1-S2 heard Bilateral crackles without wheezing Abdomen soft nontender, no guarding, no rigidity Patient is awake, alert and minimally verbal, does not follow commands, non conversational, unable to assess orientation Psych: Anxious Results Labs 04/27/23 16:43 04/27/23 16:43 Labs: Laboratory Results - last 24 hr 04/27/23 04/27/23 04/27/23 16:43 19:02 19:50 MCV 105.4 H MCH 34.1 H MCHC 32.3 RDW 13.8 Plt Count 163 MPV 9.5 Immature Gran % (Auto) 0.5 H Neut % (Auto) 85.4 H Lymph % (Auto) 11.0 L [place] % (Auto) 2.3 Eos % (Auto) 0.4 Baso % (Auto) 0.4 Lymph # (Auto) 0.6 L [place] # (Auto) 0.1 Eos # (Auto) 0.0 Baso # (Auto) 0.0 Abs Immat Gran (auto) 0.03 Absolute Neuts (auto) 4.8 Absolute Nucleated RBC 0.000 Nucleated RBC % (auto) 0.0 PT 10.4 L INR 0.9 Anion Gap 13 Estim Creat Clear Calc 39.1 Estimated GFR > 60 Random Glucose 109 Lactic Acid 2.2 H* Lactic Acid F/U @ 2Hr 1.5 Calcium 9.2 Magnesium 2.1 Total Bilirubin 0.2 AST 23 ALT 16 Alkaline Phosphatase 88 B-Natriuretic Peptide 92 Total Protein 7.0 Albumin 3.6 Lipase 13 Urine Color Yellow Urine Appearance Clear Urine pH 7.5 Ur Specific [place] 1.020 Urine Protein Negative Urine Glucose (UA) Negative Urine Ketones Negative Urine Blood Negative Urine Nitrite Negative Ur Leukocyte Esterase Negative Stool Occult Blood NEGATIVE COVID-19 (DENIZ) Positive A COVID-19 Clin Com See Note Influenza Type A (EDILBERTO) Negative Influenza Type B (EDILBERTO) Negative Influenza A & B Note See Note Imaging Radiologist's Impressions: Impressions Abdomen/Pelvis CT 04/27/23 18:31 IMPRESSION: Limited due to motion artifact. Slightly dilated fluid-filled stomach. Stable liver cyst. Distended bladder. Fleischner guidelines were followed. Chest CTA 04/27/23 18:31 IMPRESSION: No evidence of pulmonary embolism. Right lower lobe pneumonia and smaller pneumonia in the right middle and left lower lobes. Enlarged right subcarinal mediastinal lymph node. Question enlarged left precarinal lymph node versus thickening of the esophagus. Chest CT follow-up with IV contrast following resolution of pneumonia recommended. VTE: Assessment and Plan (1) Acute hypoxemic respiratory failure due to COVID-19: Status: Acute (2) Pneumonia: Status: Acute Plan This is a 63-year-old female with pertinent history of Down syndrome with moderate intellectual disability, hypothyroidism, mood disorder who was sent to the emergency department from [place] [facility] for evaluation of weakness and found to be hypoxemic in the ER. #. Acute hypoxic repiratory failure due to COVID-19 infection and right sided PNA: Will admit patient with supplemental oxygen. Initiating empiric IV abx and IV decadron. Maintain oxygen saturation greater than 90%. No sepsis. Follow blood culture. #. Acute lactic acidosis due to hypoxia. No sepsis #. Mood disorder: Continue home mood stabilizers #. Hypothyroidism: On Synthroid #. Down's syndrome with behavioral disturbance: Maintain sleep wake cycle Med Rec pending Full code Admit as inpatient and will require two night minimum hospital stay for supplemental oxygen and IV antibiotics Time Spent With Patient Time: Total time managing care of this patient today ____ minutes. Quality Stroke Does the patient have a stroke diagnosis?: No VTE Prior VTE?: No VTE Risk Level:: Medical - moderate - high VTE Device Contraindication: Treatment Not Indicated VTE Drug Contraindication: N/A - Med Ordered
[2023-04-27] MEDS: cefTRIAXone sodium 1 GM in 0.9 % Sodium Chloride 50 ML IV (20:17)
--- NOTE | 2023-04-27 20:20 | PC.NURSE ---
Addendum entered by Marysol Negron 04/27/23 20:21: Dr. Jorge shine. Original Note: IV abx infusing per mar. pt appears agitated; requesting to go home and attempting to pull off IV.
[2023-04-27] MEDS: LORazepam 2 MG/ML VIAL 1 MG IVPUSH (20:41)
--- NOTE | 2023-04-27 21:09 | PHA.MEDREC ---
Pharmacy Consult ? Medication Reconciliation Pharmacy has completed the medication reconciliation. SPOKE TO FAMILY MEMBER AND RN AT FACILITY TO CONFIRM MEDS. NO LIST IN PTS CHART. NUMBER FOR [facility] IS [phone]
[2023-04-27] MEDS: metroNIDAZOLE/NS 500 MG/100 ML PIGGYBACK 100 MG IV (21:22)
[2023-04-27 21:43] VITALS: PULSE 79; RESP 16; O2SAT 96
[2023-04-27] MEDS: OXcarbazepine 300 MG TABLET PO (21:44)
[2023-04-27] MEDS: Enoxaparin Sodium 40 MG/0.4 ML SYRINGE SUBCUT (21:44)
[2023-04-27] MEDS: dexAMETHasone sod phosphate 4 MG/ML VIAL 6 MG IVPUSH (21:44)
--- NOTE | 2023-04-27 21:58 | PC.NURSE ---
pt medicated per sep; 2nd iv abx infusing. pt sleeping but arousable to name. able to place nasal cannula briefly on pt sats 99% on 2L. pt took of cannula; sats remain 94-95% on RA. staff at bedside. call costa within reach.
--- NOTE | 2023-04-27 22:24 | PC.NURSE ---
delay in abx administration as pt only has 1 iv access and pt continues to bend arm.
[2023-04-27] MEDS: Azithromycin 500 MG in 0.9 % Sodium Chloride 250 ML 125 MG IV (22:34)
--- NOTE | 2023-04-27 22:35 | PC.NURSE ---
abx infusing per mar. sats remain 95% on RA.
--- NOTE | 2023-04-27 23:39 | PC.NURSE ---
report given to imc rn.
[2023-04-28] VITALS (7 sets, daily range): BP systolic 90–125; BP diastolic 53–71; PULSE 53–80; RESP 16–20; TEMP 36.2–37.1; O2SAT 92–95; BMI 18.7
[2023-04-28] MEDS: 0.9 % Sodium Chloride Flush 3 ML SYRINGE IVFLUSH ×2 (00:43→08:55)
[2023-04-28 06:41] LABS: Basophils Percent Auto 0.2 % (0-2); Hematocrit 39.6 % (37.0-47.0); Hemoglobin 12.7 g/dl (12.0-16.0); Imm Gran Abs Auto 0.05 X10*3/uL (0.00-0.03); Imm Gran Pct Auto 0.3 % (0.0-0.4); Lymphocytes Absolute Auto 0.6 X10*3/uL (1.2-4.9); Lymphocytes Percent Auto 4.2 % (20-40); MANUAL DIFF FLAG SCAN; Mean Corpuscular HGB Conc 32.1 g/dl (31.0-35.0); Mean Corpuscular Hemoglobin 33.3 pg (27.0-33.0); Mean Corpuscular Volume 103.9 fL (80.0-98.0); Mean Platelet Volume 9.6 fL (9.4-12.3); Monocytes Absolute Auto 0.3 X10*3/uL (0.1-1.2); Monocytes Percent Auto 2.1 % (2-11); Neutrophils Absolute Auto 13.4 x10*3/uL (2.0-8.3); Neutrophils Percent Auto 93.2 % (45-73); Platelet Count 157 X10*3/uL (160-400); Red Blood Count 3.81 X10*6/uL (4.20-5.50); SCAN SMEAR FLAG 1; White Blood Count 14.4 X10*3/uL (4.8-10.8)
[2023-04-28 06:49] LABS: Anion Gap 13 (12-20); Blood Urea Nitrogen 18 mg/dL (9-16); Calcium 8.7 mg/dL (8.4-10.2); Carbon Dioxide 22 mmol/L (22-29); Chloride 112 mmol/L (96-108); Estimated Glomerular Filt Rate > 60; Glucose Random 119 mg/dL (60-115); Potassium 4.3 mmol/L (3.3-5.1); Sodium 143 mmol/L (135-145)
[2023-04-28 07:19] LABS: SLIDE REVIEW VERIFIED
[2023-04-28] MEDS: Lactated Ringers 1,000 ML 100 ML IVCONT (08:49)
[2023-04-28] MEDS: dexAMETHasone sod phosphate 4 MG/ML VIAL 6 MG IVPUSH (08:55)
[2023-04-28] MEDS: Aspirin 81 MG TAB.CHEW PO (08:57)
[2023-04-28] MEDS: Gabapentin 300 MG CAPSULE PO ×2 (08:57→21:40)
[2023-04-28] MEDS: OXcarbazepine 300 MG TABLET PO ×2 (08:57→21:40)
[2023-04-28] MEDS: Cholecalciferol (Vitamin D3) 25 MCG TABLET PO (08:57)
--- NOTE | 2023-04-28 08:58 | MHC.CM.PN ---
CM spoke with Patient's Guardian/Sister/Pat @ [phone] and addressed IMM with her (original will be mailed certified letter to Pat and a copy has been placed on the chart). CM has asked Pat to fax CM a copy of the Guardianship and she is agreeable to do so. [facility] [place] and returning there is the goal, once Patient is medically cleared for dc. KAMAR has initiated and will follow for dc planning. PCP is Dr. Fuentes Po.
--- NOTE | 2023-04-28 09:50 | MHC.CM.PN ---
Copy of the Guardianship has been uploaded into [employer] and placed on the chart.
[2023-04-28] MEDS: OXcarbazepine 150 MG TABLET PO ×2 (10:14→21:40)
--- NOTE | 2023-04-28 13:14 | P.PNIM_ITS ---
Subjective Subjective Date of Service: 04/28/23 Interval History: Seen and evaluated better overall non verbal Tolerating diet No fever Review of Systems Review of Systems: Yes all other systems are reviewed and are negative Physical Exam 2 Vital Signs: Vital Signs: Last Vital Signs Temp 98.5 F 04/28/23 11:07 Pulse 53 04/28/23 11:07 Resp 20 04/28/23 11:07 BP 115/53 L 04/28/23 11:07 Pulse Ox 95 04/28/23 11:07 O2 Del Method Room Air 04/28/23 11:07 O2 Flow Rate 2 04/27/23 21:43 Oxygen Flow Rate 2 04/27/23 15:58 BMI result Body Mass Index 18.7 Const: Other: Constitutional : Awake, interactive, Down syndrome, not in distress Neck : Normal inspection, Supple Cardiovascular : RRR, no JVP, no lower extremity edema Respiratory : good bilateral air entry, no crackles, fine expiratory wheezes Gastrointestinal: soft, lax, Normal bowel sounds, Non tender Skin : Warm, Dry Neurological : Alert & oriented x3, No focal deficit Objective Data Active Medications Acetaminophen (Acetaminophen 325 Mg Tablet) 650 mg PO Q6H PRN PRN Reason: Pain, Mild (Pain Scale 1-3) Acetaminophen (Acetaminophen Supp 650 Mg Supp.Rect) 650 mg DE Q6H PRN PRN Reason: Pain, Mild (Pain Scale 1-3) Acetaminophen (Acetaminophen Oral Liquid 650 Mg/20.3 Ml Solution) 650 mg PO Q6H PRN PRN Reason: fever or pain Aspirin (Aspirin 81 Mg Tab.Chew) 81 mg PO DAILY [facility] Last Admin: 04/28/23 08:57 Dose: 81 mg Documented By: BRITT Dexamethasone Sodium Phosphate (Dexamethasone Sod Phosphate 4 Mg/Ml Vial) 6 mg IVPUSH DAILY [facility] Last Admin: 04/28/23 08:55 Dose: 6 mg Documented By: BRITT Enoxaparin Sodium (Enoxaparin Sodium 40 Mg/0.4 Ml Syringe) 40 mg SUBCUT Q24H [facility] Last Admin: 04/27/23 21:44 Dose: 40 mg Documented By: FRANK Gabapentin (Gabapentin 300 Mg Capsule) 300 mg PO BID [facility] Last Admin: 04/28/23 08:57 Dose: 300 mg Documented By: BRITT Ceftriaxone Sodium 1 gm/ (Sodium Chloride) 50 mls @ 100 mls/hr IV Q24H [facility] Azithromycin 500 mg/ Sodium (Chloride) 250 mls @ 125 mls/hr IV Q24H [facility] Last Infusion: 04/28/23 00:43 Dose: Infused Documented By: TANNA Lactated Ringer's (Lr) 1,000 mls @ 100 mls/hr IVCONT .Q10H [facility] Last Admin: 04/28/23 08:49 Dose: 100 mls/hr Documented By: BRITT Levothyroxine Sodium (Levothyroxine Sodium 112 Mcg Tablet) 112 mcg PO DAILY@0600 [facility] Levothyroxine Sodium (Levothyroxine Sodium 25 Mcg Tablet) 25 mcg PO DAILY@0600 [facility] Lorazepam (Lorazepam 1 Mg Tablet) 1 mg PO DAILY PRN PRN Reason: Anxiety Melatonin (Melatonin 3 Mg Tablet) 6 mg PO BEDTIME PRN PRN Reason: Insomnia Ondansetron HCl (Ondansetron Hcl 4 Mg/2 Ml Vial) 4 mg IVPUSH Q8H PRN PRN Reason: Nausea and Vomiting Oxcarbazepine (Oxcarbazepine 300 Mg Tablet) 300 mg PO BID [facility] Last Admin: 04/28/23 08:57 Dose: 300 mg Documented By: BRITT Oxcarbazepine (Oxcarbazepine 150 Mg Tablet) 150 mg PO BID [facility] Last Admin: 04/28/23 10:14 Dose: 150 mg Documented By: BRITT Senna/Docusate Sodium (Sennosides/Docusate Sodium Tablet) 1 tab PO BEDTIME [facility] Sodium Chloride (0.9 % Sodium Chloride Flush 3 Ml Syringe) 3 ml IVFLUSH QSHIFT [facility] Last Admin: 04/28/23 08:55 Dose: 3 ml Documented By: BRITT Trazodone HCl (Trazodone Hcl 50 Mg Tablet) 50 mg PO BEDTIME PRN PRN Reason: sleep Vitamin D (Cholecalciferol (Vitamin D3) 25 Mcg Tablet) 25 mcg PO DAILY [facility] Last Admin: 04/28/23 08:57 Dose: 25 mcg Documented By: BRITT Labs 04/28/23 06:05 04/28/23 06:05 Labs: Laboratory Results - last 24 hr 04/27/23 04/27/23 04/27/23 16:43 19:02 19:50 MCV 105.4 H MCH 34.1 H MCHC 32.3 RDW 13.8 Plt Count 163 MPV 9.5 Immature Gran % (Auto) 0.5 H Neut % (Auto) 85.4 H Lymph % (Auto) 11.0 L [place] % (Auto) 2.3 Eos % (Auto) 0.4 Baso % (Auto) 0.4 Lymph # (Auto) 0.6 L [place] # (Auto) 0.1 Eos # (Auto) 0.0 Baso # (Auto) 0.0 Abs Immat Gran (auto) 0.03 Absolute Neuts (auto) 4.8 Absolute Nucleated RBC 0.000 Nucleated RBC % (auto) 0.0 Smear Tech's Comments PT 10.4 L INR 0.9 Anion Gap 13 Estim Creat Clear Calc 39.1 Estimated GFR > 60 Random Glucose 109 Lactic Acid 2.2 H* Lactic Acid F/U @ 2Hr 1.5 Calcium 9.2 Magnesium 2.1 Total Bilirubin 0.2 AST 23 ALT 16 Alkaline Phosphatase 88 B-Natriuretic Peptide 92 Total Protein 7.0 Albumin 3.6 Lipase 13 Urine Color Yellow Urine Appearance Clear Urine pH 7.5 Ur Specific [place] 1.020 Urine Protein Negative Urine Glucose (UA) Negative Urine Ketones Negative Urine Blood Negative Urine Nitrite Negative Ur Leukocyte Esterase Negative Stool Occult Blood NEGATIVE COVID-19 (DENIZ) Positive A COVID-19 Clin Com See Note Influenza Type A (EDILBERTO) Negative Influenza Type B (EDILBERTO) Negative Influenza A & B Note See Note 04/28/23 06:05 MCV 103.9 H MCH 33.3 H MCHC 32.1 RDW 14.0 Plt Count 157 L MPV 9.6 Immature Gran % (Auto) 0.3 Neut % (Auto) 93.2 H Lymph % (Auto) 4.2 L [place] % (Auto) 2.1 Eos % (Auto) 0.0 Baso % (Auto) 0.2 Lymph # (Auto) 0.6 L [place] # (Auto) 0.3 Eos # (Auto) 0.0 Baso # (Auto) 0.0 Abs Immat Gran (auto) 0.05 H Absolute Neuts (auto) 13.4 H Absolute Nucleated RBC 0.000 Nucleated RBC % (auto) 0.0 Smear Tech's Comments VERIFIED PT INR Anion Gap 13 Estim Creat Clear Calc 46.0 Estimated GFR > 60 Random Glucose 119 H Lactic Acid Lactic Acid F/U @ 2Hr Calcium 8.7 Magnesium Total Bilirubin AST ALT Alkaline Phosphatase B-Natriuretic Peptide Total Protein Albumin Lipase Urine Color Urine Appearance Urine pH Ur Specific [place] Urine Protein Urine Glucose (UA) Urine Ketones Urine Blood Urine Nitrite Ur Leukocyte Esterase Stool Occult Blood COVID-19 (DENIZ) COVID-19 Clin Com Influenza Type A (EDILBERTO) Influenza Type B (EDILBERTO) Influenza A & B Note Assessment and Plan (1) Pneumonia: Status: Acute (2) Acute hypoxic respiratory failure: Status: Acute (3) Acute hypoxemic respiratory failure due to COVID-19: Status: Acute Plan This is a 63-year-old female with pertinent history of Down syndrome with moderate intellectual disability, hypothyroidism, mood disorder who [facility] and found to be hypoxemic in the ER. # Acute hypoxic repiratory failure due to COVID-19 infection and right sided PNA Pending cultures IV abx IV decadron Wean O2 down as tolerated. # Acute lactic acidosis due to hypoxia not sepsis # Mood disorder Continue home mood stabilizers # Hypothyroidism Synthroid # Down's syndrome with behavioral disturbance: Maintain sleep wake cycle, home meds Full code will require overnight minimum hospital stay for supplemental oxygen and IV antibiotics Time Spent With Patient Time: Total time managing care of this patient today ____ minutes. Quality Stroke Does the patient have a stroke diagnosis?: No VTE Prior VTE?: No VTE Risk Level:: Medical - moderate - high VTE Device Contraindication: Treatment Not Indicated VTE Drug Contraindication: N/A - Med Ordered
[2023-04-28] MEDS: cefTRIAXone sodium 1 GM in 0.9 % Sodium Chloride 50 ML IV (21:40)
[2023-04-28] MEDS: Enoxaparin Sodium 40 MG/0.4 ML SYRINGE SUBCUT (21:40)
[2023-04-28] MEDS: Sennosides/Docusate Sodium TABLET 1 TAB PO (21:40)
[2023-04-28] MEDS: LORazepam 1 MG TABLET PO (23:14)
[2023-04-28] MEDS: Azithromycin 500 MG in 0.9 % Sodium Chloride 250 ML 125 MG IV (23:16)
[2023-04-29] VITALS (7 sets, daily range): BP systolic 100–130; BP diastolic 55–76; PULSE 51–75; RESP 14–18; TEMP 36.1–37.1; O2SAT 87–97
[2023-04-29] MEDS: traZODone HCL 50 MG TABLET PO (00:13)
[2023-04-29] MEDS: Lactated Ringers 1,000 ML 100 ML IVCONT (01:51)
[2023-04-29] MEDS: Levothyroxine Sodium 112 MCG TABLET PO (05:43)
[2023-04-29] MEDS: Levothyroxine Sodium 25 MCG TABLET PO (05:43)
[2023-04-29] MEDS: Aspirin 81 MG TAB.CHEW PO (09:06)
[2023-04-29] MEDS: 0.9 % Sodium Chloride Flush 3 ML SYRINGE IVFLUSH ×3 (09:06→23:46)
[2023-04-29] MEDS: dexAMETHasone sod phosphate 4 MG/ML VIAL 6 MG IVPUSH (09:06)
[2023-04-29] MEDS: Cholecalciferol (Vitamin D3) 25 MCG TABLET PO (09:06)
[2023-04-29] MEDS: OXcarbazepine 150 MG TABLET PO ×2 (09:06→20:19)
[2023-04-29] MEDS: Gabapentin 300 MG CAPSULE PO ×2 (09:06→20:19)
[2023-04-29] MEDS: OXcarbazepine 300 MG TABLET PO ×2 (09:06→20:19)
[2023-04-29] MEDS: LORazepam 2 MG/ML VIAL 1 MG IVPUSH (10:50)
--- NOTE | 2023-04-29 10:58 | HO.PM.IMPN ---
Subjective Subjective Date of Service: 04/29/23 Interval History: Seen and evaluated better overall non verbal Tolerating diet No fever Review of Systems Review of Systems: Yes all other systems are reviewed and are negative Physical Exam Vital Signs: Vital Signs: Last Vital Signs Temp 97.0 F 04/29/23 07:31 Pulse 51 04/29/23 07:31 Resp 16 04/29/23 07:31 BP 104/58 L 04/29/23 07:31 Pulse Ox 92 04/29/23 07:31 O2 Del Method Room Air 04/29/23 07:31 O2 Flow Rate 2 04/29/23 04:30 Oxygen Flow Rate 2 04/27/23 15:58 BMI result Body Mass Index 18.7 Const: Other: Constitutional : Awake, interactive, Down syndrome, not in distress Neck : Normal inspection, Supple Cardiovascular : RRR, no JVP, no lower extremity edema Respiratory : good bilateral air entry, no crackles, fine expiratory wheezes Gastrointestinal: soft, lax, Normal bowel sounds, Non tender Skin : Warm, Dry Neurological : Alert & oriented x3, No focal deficit Objective Data Active Medications Acetaminophen (Acetaminophen 325 Mg Tablet) 650 mg PO Q6H PRN PRN Reason: Pain, Mild (Pain Scale 1-3) Acetaminophen (Acetaminophen Supp 650 Mg Supp.Rect) [address] Q6H PRN PRN Reason: Pain, Mild (Pain Scale 1-3) Acetaminophen (Acetaminophen Oral Liquid 650 Mg/20.3 Ml Solution) 650 mg PO Q6H PRN PRN Reason: fever or pain Aspirin (Aspirin 81 Mg Tab.Chew) 81 mg PO DAILY [facility] Last Admin: 04/29/23 09:06 Dose: 81 mg Documented By: SHEILA Dexamethasone Sodium Phosphate (Dexamethasone Sod Phosphate 4 Mg/Ml Vial) 6 mg IVPUSH DAILY [facility] Last Admin: 04/29/23 09:06 Dose: 6 mg Documented By: SHEILA Enoxaparin Sodium (Enoxaparin Sodium 40 Mg/0.4 Ml Syringe) 40 mg SUBCUT Q24H [facility] Last Admin: 04/28/23 21:40 Dose: 40 mg Documented By: JOSE Gabapentin (Gabapentin 300 Mg Capsule) 300 mg PO BID [facility] Last Admin: 04/29/23 09:06 Dose: 300 mg Documented By: SHEILA Ceftriaxone Sodium 1 gm/ (Sodium Chloride) 50 mls @ 100 mls/hr IV Q24H [facility] Last Infusion: 04/28/23 23:13 Dose: Infused Documented By: WILLIAM Azithromycin 500 mg/ Sodium (Chloride) 250 mls @ 125 mls/hr IV Q24H [facility] Last Infusion: 04/29/23 01:53 Dose: Infused Documented By: JOSE Lactated Ringer's (Lr) 1,000 mls @ 100 mls/hr IVCONT .Q10H [facility] Last Admin: 04/29/23 09:20 Dose: Not Given Documented By: SHEILA Non-Admin Reason: Med D?C Levothyroxine Sodium (Levothyroxine Sodium 112 Mcg Tablet) 112 mcg PO DAILY@0600 [facility] Last Admin: 04/29/23 05:43 Dose: 112 mcg Documented By: JOSE Levothyroxine Sodium (Levothyroxine Sodium 25 Mcg Tablet) 25 mcg PO DAILY@0600 [facility] Last Admin: 04/29/23 05:43 Dose: 25 mcg Documented By: JOSE Lorazepam (Lorazepam 1 Mg Tablet) 1 mg PO DAILY PRN PRN Reason: Anxiety Last Admin: 04/28/23 23:14 Dose: 1 mg Documented By: JOSE Melatonin (Melatonin 3 Mg Tablet) 6 mg PO BEDTIME PRN PRN Reason: Insomnia Ondansetron HCl (Ondansetron Hcl 4 Mg/2 Ml Vial) 4 mg IVPUSH Q8H PRN PRN Reason: Nausea and Vomiting Oxcarbazepine (Oxcarbazepine 300 Mg Tablet) 300 mg PO BID [facility] Last Admin: 04/29/23 09:06 Dose: 300 mg Documented By: SHEILA Oxcarbazepine (Oxcarbazepine 150 Mg Tablet) 150 mg PO BID [facility] Last Admin: 04/29/23 09:06 Dose: 150 mg Documented By: SHEILA Senna/Docusate Sodium (Sennosides/Docusate Sodium Tablet) 1 tab PO BEDTIME [facility] Last Admin: 04/28/23 21:40 Dose: 1 tab Documented By: JOSE Sodium Chloride (0.9 % Sodium Chloride Flush 3 Ml Syringe) 3 ml IVFLUSH QSHIFT [facility] Last Admin: 04/29/23 09:06 Dose: 3 ml Documented By: SHEILA Trazodone HCl (Trazodone Hcl 50 Mg Tablet) 50 mg PO BEDTIME PRN PRN Reason: sleep Last Admin: 04/29/23 00:13 Dose: 50 mg Documented By: JOSE Vitamin D (Cholecalciferol (Vitamin D3) 25 Mcg Tablet) 25 mcg PO DAILY [facility] Last Admin: 04/29/23 09:06 Dose: 25 mcg Documented By: SHEILA Labs 04/28/23 06:05 04/28/23 06:05 Microbiology Microbiology Results: Microbiology 04/27/23 16:53 Blood Culture - Preliminary Blood - Venous No growth after 24 hours. 04/27/23 16:43 Blood Culture - Preliminary Blood - Venous No growth after 24 hours. Assessment and Plan (1) Pneumonia: Status: Acute (2) Acute hypoxic respiratory failure: Status: Acute (3) Acute hypoxemic respiratory failure due to COVID-19: Status: Acute Plan 63F PMH Down syndrome with moderate intellectual disability, hypothyroidism, mood disorder who was sent to the emergency department from retirement for evaluation of weakness and found to be hypoxemic in the ER. Acute hypoxic repiratory failure due to COVID-19 infection and right sided PNA - suspect aspiration now on room air Continue Rocephin, azithromycin, dexamethasone Hypothyroid Synthroid Dysphagia Pureed diet Down's syndrome with behavioral disturbance: Maintain sleep wake cycle, continue trileptal, ativan prn Full code dvt prophylaxis - lovenox reason for continued hospitalization:monitoring to see if can maintain saturation off o2 Time Spent With Patient Time: Total time managing care of this patient today ____ minutes. Quality Stroke Does the patient have a stroke diagnosis?: No VTE Prior VTE?: No VTE Risk Level:: Medical - moderate - high VTE Device Contraindication: Treatment Not Indicated VTE Drug Contraindication: N/A - Med Ordered
--- NOTE | 2023-04-29 11:19 | MHC.CM.PN ---
EMR REVIEWED, PER HOSPITALIST CECELIA PT WILL BE MEDICALLY CLEARED FOR DC TOMORROW, KAMAR CONTACTED PT'S GH ABATTOIR SUPERVISOR ERLIN AT 10:15AM AT NUMBER ON FILE, PER ERLIN SHE IS AWARE OF CECELIA D/C SHE SPOKE W/HOSPITALIST EARLIER TODAY, ERLIN WILL FAX NEEDED PAPERWORK TO BE SIGNED BY TO CM OFFICE FAX AND ONCE SIGNED ON DAY OF DC IT SHOULD BE FAXED BACK TO [phone], ERLIN ALSO REPORTS STAFF WILL TRANSPORT PT UPON DC.
[2023-04-29] MEDS: cefTRIAXone sodium 1 GM in 0.9 % Sodium Chloride 50 ML IV (20:17)
[2023-04-29] MEDS: Enoxaparin Sodium 40 MG/0.4 ML SYRINGE SUBCUT (20:19)
[2023-04-29] MEDS: Sennosides/Docusate Sodium TABLET 1 TAB PO (20:19)
[2023-04-29] MEDS: Azithromycin 500 MG in 0.9 % Sodium Chloride 250 ML 125 MG IV (21:01)
[2023-04-30 03:28] VITALS: BP 122/58; PULSE 52; RESP 14; TEMP 36; O2SAT 97
[2023-04-30] MEDS: Levothyroxine Sodium 25 MCG TABLET PO (06:20)
[2023-04-30] MEDS: Levothyroxine Sodium 112 MCG TABLET PO (06:20)
[2023-04-30 07:21] LABS: Hematocrit 40.6 % (37.0-47.0); Hemoglobin 13.2 g/dl (12.0-16.0); Mean Corpuscular HGB Conc 32.5 g/dl (31.0-35.0); Mean Corpuscular Hemoglobin 33.7 pg (27.0-33.0); Mean Corpuscular Volume 103.6 fL (80.0-98.0); Mean Platelet Volume 10.3 fL (9.4-12.3); Platelet Count 149 X10*3/uL (160-400); Red Blood Count 3.92 X10*6/uL (4.20-5.50); Red Cell Distribution Width 14.4 % (11.0-16.0); White Blood Count 7.5 X10*3/uL (4.8-10.8)
[2023-04-30 07:38] VITALS: BP 92/50; PULSE 52; RESP 18; TEMP 36.1; O2SAT 95
[2023-04-30 07:47] LABS: Anion Gap 15 (12-20); Blood Urea Nitrogen 15 mg/dL (9-16); Calcium 8.9 mg/dL (8.4-10.2); Carbon Dioxide 25 mmol/L (22-29); Chloride 109 mmol/L (96-108); Creatinine Clr Calc Pharmacy 48.4; Estimated Glomerular Filt Rate > 60; Glucose Fasting 72 mg/dL (60-99); Potassium 4.4 mmol/L (3.3-5.1); Sodium 145 mmol/L (135-145)
[2023-04-30 08:12] LABS: Folate 6.1 ng/mL (> or = 4.0); Vitamin B12 442 pg/mL (200-900)
[2023-04-30] MEDS: OXcarbazepine 300 MG TABLET PO (09:35)
[2023-04-30] MEDS: Cholecalciferol (Vitamin D3) 25 MCG TABLET PO (09:36)
[2023-04-30] MEDS: Aspirin 81 MG TAB.CHEW PO (09:36)
[2023-04-30] MEDS: 0.9 % Sodium Chloride Flush 3 ML SYRINGE IVFLUSH (09:36)
[2023-04-30] MEDS: Gabapentin 300 MG CAPSULE PO (09:36)
[2023-04-30] MEDS: dexAMETHasone sod phosphate 4 MG/ML VIAL 6 MG IVPUSH (09:36)
[2023-04-30] MEDS: OXcarbazepine 150 MG TABLET PO (09:36)
--- NOTE | 2023-04-30 09:37 | P.DS_ITS ---
DS: Providers Provider Date of Service: 04/30/23 Date of admission: 04/27/23 20:13 Primary care physician: Alfredo Walls MD DS: Diagnosis Discharge Diagnosis (1) Pneumonia: Status: Acute (2) Acute hypoxic respiratory failure: Status: Acute (3) Acute hypoxemic respiratory failure due to COVID-19: Status: Acute DS: Summary Hospital Course Hospital Course: from initial hpi: 63-year-old female with pertinent history of Down syndrome with moderate intellectual disability, hypothyroidism, mood disorder who was sent to the emergency department from [facility] for evaluation of diarrhea and weakness. Unable to obtain history from the patient due to Down syndrome and moderate intellectual disability. History obtained from residential plumber at bedside and ER provider. Patient had 2 semi-formed bowel movements and abdominal discomfort. In the emergency department and upon EMS arrival, patient was noted to be hypoxemic. Unable to obtain review of systems. Does have mild cough. No cough with eating. She is on thickened liquids with pureed diet. hospital course: Patient was admitted for acute hypoxic respiratory failure due to COVID-19 and right-sided pneumonia, possible aspiration. She was treated with ceftriaxone, azithromycin, dexamethasone. She was weaned to room air. She is feeling much better. Will be discharged home on 5 more days of cefuroxime and prednisone. For hypothyroidism was continue on Synthroid. For dysphagia was continue on pureed diet. For down syndrome with behavioral disturbances was continued on Trileptal and Ativan p.r.n. Time Spent with Patient Time attestation: Total time managing care of this patient today ____ minutes. Discharge coordination time: Greater than 30 minutes Quality: Safe Use of Opioids Does Pt have an Active Cancer Diagnosis on the Problem List?: No Quality: Stroke Does the patient have a stroke diagnosis?: No Physical Exam Vital Signs: Vital Signs: Last Vital Signs Temp 97.0 F 04/30/23 07:38 Pulse 52 04/30/23 07:38 Resp 18 04/30/23 07:38 BP 92/50 L 04/30/23 07:38 Pulse Ox 95 04/30/23 07:38 O2 Del Method Room Air 04/30/23 07:38 O2 Flow Rate 2 04/29/23 23:45 Oxygen Flow Rate 2 04/27/23 15:58 BMI result Body Mass Index 18.7 Const: Other: Constitutional : Awake, interactive, Down syndrome, not in distress Neck : Normal inspection, Supple Cardiovascular : RRR, no JVP, no lower extremity edema Respiratory : good bilateral air entry, no crackles, fine expiratory wheezes Gastrointestinal: soft, lax, Normal bowel sounds, Non tender Skin : Warm, Dry Neurological : Alert & oriented x3, No focal deficit DS: Data Data Completed and Pending Labs on day of discharge: Laboratory Results - last 24 hr 04/30/23 06:24 WBC 7.5 RBC 3.92 L Hgb 13.2 Hct 40.6 MCV 103.6 H MCH 33.7 H MCHC 32.5 RDW 14.4 Plt Count 149 L MPV 10.3 Absolute Nucleated RBC 0.000 Nucleated RBC % (auto) 0.0 Sodium 145 Potassium 4.4 Chloride 109 H Carbon Dioxide 25 Anion Gap 15 BUN 15 Creatinine 0.76 Estim Creat Clear Calc 48.4 Estimated GFR > 60 Fasting Glucose 72 Calcium 8.9 Vitamin B12 442 Folate 6.1 Preliminary micro results at discharge 04/27/23 16:53 Blood Culture - Preliminary Blood - Venous No growth after 48 hours. 04/27/23 16:43 Blood Culture - Preliminary Blood - Venous Prelim: GPC Gram Stain only Discharge Plan Discharge Anticipated Discharge Date/Time: 04/30/23 09:33 Patient Disposition: Home, Self-Care Discharge Diagnosis: pna, covid Referrals: Po,Alfredo Khalil MD [Primary Care Provider] - 1 Week Discharge Medications: New cefuroxime axetil 500 mg tablet 500 mg PO BID Qty: 10 0RF prednisone 20 mg tablet 40 mg PO DAILY Qty: 10 0RF Continued trazodone 50 mg tablet 50 mg PO BEDTIME PRN (Reason: sleep) 90 Days Qty: 90 3RF cholecalciferol (vitamin D3) 25 mcg (1,000 unit) tablet 25 mcg PO QAM Qty: 90 3RF Thick-It Powder See Rx Instructions PO TIDWMEAL Qty: 6120 4RF Rx Instructions: Thick-It - Powder as directed Orally-Mix with food 3 times a day aspirin 81 mg tablet,chewable 81 mg PO DAILY Qty: 90 3RF sennosides-docusate sodium [Senna Plus] 8.6-50 mg tablet 1 tab PO BEDTIME Qty: 28 11RF calcium carbonate-vitamin D3 600 mg-10 mcg (400 unit) tablet 1 tab PO BID 28 Days Qty: 180 2RF levothyroxine [Synthroid] 137 mcg tablet 137 mcg PO DAILY 30 Days Qty: 90 3RF ibuprofen 100 mg/5 mL suspension 200 mg PO Q6H PRN (Reason: pain) Qty: 120 0RF acetaminophen 650 mg/20.3 mL solution 650 mg PO Q6H PRN (Reason: fever or pain) Qty: 609 0RF lorazepam 1 mg tablet 1 mg PO DAILY PRN (Reason: Anxiety) gabapentin 300 mg capsule 300 mg PO BID oxcarbazepine [Trileptal] 150 mg tablet 150 mg PO BID ondansetron HCl 4 mg tablet 4 mg PO Q6H PRN (Reason: Nausea And Vomiting) fluoride (sodium) [SF 5000 Plus] 1.1 % cream 1 appl PO BEDTIME oxcarbazepine 300 mg tablet 300 mg PO BID Discharge Orders: Discharge Order (Routine); Ordered 04/30/23 Ordered By: Rayo Cutler Diet: pureed Activity on Discharge: As tolerated Stand Alone Forms: Patient Portal Discharge page Care Plan Goals: recovery Health Concerns: pna, covid Plan of Treatment: 5 days of ceftin and prednisone Assessment: see above
--- NOTE | 2023-04-30 09:38 | MHC.CM.PN ---
Addendum entered by Cynthia Heaton RN 04/30/23 09:48: MED ORDERS SIGNED BY HOSPITALIST AND GIVEN TO ELECTROTYPE FINISHER ERLIN AT BEDSIDE Original Note: PT MEDICALLY CLEARED FOR D/C, CM CONTACTED PT'S GUARDIAN THIERRY LOPEZ AT 9:35AM AT NUMBER ON FILE, PAT AGREEABLE TO DC PLAN AND IMM TO BE EMAILED TO [email or web address] PER DISCUSSION.
== END 2023-04-30 10:35 | disposition home or self-care (01) | DRG 177 ==
LOC: HO.ED 17:10 → HO.EDOVER 20:34 → HO.IMC 23:02
PROVIDERS: Nurse Practitioner Family; Admitting Provider Student in an Organized Health Care Education/Training Program; Emergency Provider Emergency Medicine; PCP Internal Medicine; Visit Provider Internal Medicine
DX: U07.1 COVID-19 (principal); J18.9 Pneumonia, unspecified organism; J96.01 Acute respiratory failure with hypoxia; E87.21 Acute metabolic acidosis; F71 Moderate intellectual disabilities; E03.9 Hypothyroidism, unspecified; F39 Unspecified mood [affective] disorder; Q90.9 Down syndrome, unspecified; Z79.890 Hormone replacement therapy; Z79.899 Other long term (current) drug therapy
CPT/HCPCS: 36415; 71275; 74177; 80048; 80053; 81003; 82272; 82607; 82746; 83605; 83690; 83735; 83880; 85025; 85027; 85610; 87040; 87205; 87502; 87635; 99285; J0456; J0696; J1100; J1650; J2060; Q9967

== ENCOUNTER → 2023-04-27 20:13 | Outpatient (BNV) | payer MEDICARE, MEDICAID, SELFPAY | PROVIDERS: Admitting Provider Student in an Organized Health Care Education/Training Program; Emergency Provider Emergency Medicine; PCP Internal Medicine; Visit Provider Student in an Organized Health Care Education/Training Program | DX: U07.1 COVID-19 (principal); J96.01 Acute respiratory failure with hypoxia; J18.9 Pneumonia, unspecified organism | CPT/HCPCS: 99222; 99232; 99233; 99239 ==

== ENCOUNTER 2023-06-11 12:00 | Outpatient (AMB) | payer MEDICARE, MEDICAID, SELFPAY ==
--- NOTE | 2023-06-11 12:02 | MHC.PC.OV ---
Vital Signs 06/11/23 12:12 06/11/23 12:36 BP 90/70 Blood Pressure Location Lt brachial Position Sitting Pulse 27 L 50 Pulse Source Pulse Oximeter Pulse Oximeter Pulse Oximetry (%) 99 Oxygen Delivery Method Room Air Intake Visit Reasons: [facility] 04/27-04/30 covid then pneumonia Geriatric Physician Required: No Administrative Support Assoc: Present Accompanied by: care provider Allergies Sulfa (Sulfonamide Antibiotics) Allergy (Mild, Verified 06/11/23 12:23) HIVES sulfamethoxazole [From Bactrim] Allergy (Mild, Verified 06/11/23 12:23) HIVES amoxicillin [Amoxicillin] Allergy (Unknown, Verified 06/11/23 12:23) HIVES Clindamycin HCl Allergy (Unknown, Verified 06/11/23 12:) rash trimethoprim [From Bactrim] Allergy (Unknown, Verified 06/11/23 12:23) HIVES Medication List - Last Reconciled 06/11/23 by JOSE Ferguson acetaminophen 650 mg (20.3 mL) PO Q6H PRN aspirin 81 mg PO DAILY calcium carbonate-vitamin D3 600 mg-10 mcg (400 unit) 1 tab PO BID 28 days cefuroxime axetil 500 mg PO BID cholecalciferol (vitamin D3) 25 mcg PO QAM gabapentin 300 mg PO BID ibuprofen 200 mg (10 mL) PO Q6H PRN lorazepam 1 mg PO DAILY PRN ondansetron HCl 4 mg PO Q6H PRN oxcarbazepine 300 mg PO BID oxcarbazepine (Trileptal) 150 mg PO BID prednisone 40 mg (2 x 20 mg) PO DAILY sennosides-docusate sodium 8.6-50 mg (Senna Plus) 1 tab PO BEDTIME starch (thickening) (Thick-It oral powder) Thick-It - Powder as directed Orally-Mix with food 3 times a day Synthroid (levothyroxine) 137 mcg PO DAILY 30 days NS trazodone 50 mg PO BEDTIME PRN 90 days Tobacco use date assessed: 01/07/23 Dental Screening Dental Screen Date: 06/11/23 Did you have a dental visit in the last 12 months?: Yes Did you have a dental problem in the last 6 months where you did not have access to dental care?: No Was dental information given to patient?: Patient has dentist HPI HPI Comments History of Present Illness Details 63-year-old female past medical history significant for Down syndrome with moderate intellectual disability, hypothyroidism, mood disorder. Patient Dr. Walls presents today for Hospital discharge follow up. For COVID/PNA in April, hospital course is noted below. hospital course: Patient was admitted for acute hypoxic respiratory failure due to COVID-19 and right-sided pneumonia, possible aspiration. She was treated with ceftriaxone, azithromycin, dexamethasone. She was weaned to room air. She is feeling much better. Will be discharged home on 5 more days of cefuroxime and prednisone. For hypothyroidism was continue on Synthroid. For dysphagia was continue on pureed diet. For down syndrome with behavioral disturbances was continued on Trileptal and Ativan p.r.n. Patient presents today with [facility] staff reports she has been overall doing well. Denies any acute concerns. Heart rate recorded by CARMEN Calderon, heart rate repeated 50 on pulse oximetry. Attempted to man manual heart rate however patient would not sit still to have this completed get moving her arms and stating she needs to get up. Patient would not sit still for examination. Patient apparently getting agitated with being at doctor's office, given repeat heart rate 50 on pulse ox located discharge back to her home. Per [facility] staff states that patient has been in good health and that when they check her heart rate at the house it is within normal limits. Patient was given Ativan prior to the arrival of this appointment as she does not tolerate going to the doctors. [facility] staff notified if they get any low heart rates to notify PCP or seek emergency medical attention for further evaluation. [facility] Medical History Preoperative cardiovascular examination New onset left bundle branch block (LBBB) Lethargy COVID-19 virus infection Mental status alteration Medicare annual wellness visit, subsequent Colon cancer screening Atlantoaxial instability Cholelithiasis Mental and behavioral problem Hypercholesterolemia Vitamin D deficiency Closed right ankle fracture Patent foramen ovale Hypothyroid Megaloblastic anemia CVA (cerebral vascular accident) Cataracts, bilateral Down syndrome Jorge L's disease Surgical History Clubfoot Hx of tubal ligation Hx of cataract surgery History of colonoscopy Family History Father No problems noted. 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 Monico Cuellar, Peggy Morris, Parvez Guerrier and colleagues, with an educational tesha from [email or web address]. Review of Systems Const Denies chills, Denies fatigue, Denies fever(s) and Denies poor appetite Eyes Denies no additional complaints ENT Reports Normal hearing present Card Denies chest pain, Denies syncope, Denies rapid heart rate and Denies dyspnea Resp Denies cough and Denies dyspnea GI Denies change in stool character, Denies constipation, Denies diarrhea, Denies nausea and Denies vomiting Denies urinary frequency, Denies dysuria and Denies urinary urgency Neuro Reports Normal hearing present, Denies confusion and Denies syncope Psych Denies confusion Endo Denies fatigue Physical exam (Primary Care) Vital Signs: Last Vital Signs Pulse 27 L 06/11/23 12:12 BP 90/70 06/11/23 12:12 Pulse Ox 99 06/11/23 12:12 Oxygen Delivery Method Room Air 06/11/23 12:12 Tobacco/Smoking Status: Tobacco use Status Tobacco use date assessed 01/07/23 06/11/23 12:10 Patient Tobacco Use Status Never used Tobacco 06/11/23 12:10 e-Cigarette/Vaping Use Never Used 06/11/23 12:10 Thrive Assessment: Date of Thrive Assessment Date Thrive assessed 04/28/23 06/11/23 12:10 Const General: No confusion Orientation/consciousness: No confusion HENMT Head: Yes normocephalic and Yes atraumatic Eyes Conjunctivae: conjunctivae normal Chest Chest palpation & inspection: normal inspection of the chest Resp Other: Patient not cooperative to allow me to listen to lungs Effort & Inspection: normal respiratory effort Cardio Rate: regular rate Rhythm: regular rhythm Heart sounds: S1 normal heart sound present and S2 normal heart sound present GI Inspection: Yes normal to inspection Neuro General: No confusion Cranial nerves: Yes Normal hearing present Extrem General: No edema Assessment and Plan Assessment & Plan (1) Down syndrome: Code(s): Q90.9 - Down syndrome, unspecified (2) Hospital discharge follow-up: Code(s): Z09 - Encounter for follow-up examination after completed treatment for conditions other than malignant neoplasm (3) New onset left bundle branch block (LBBB): Code(s): I44.7 - Left bundle-branch block, unspecified Plan: Previously noted on EKG, HR: 50. Has been seen by Cardiology for this. Signs and symptoms reviewed with [facility] staff when to seek emergency medical attention. Plan keep scheduled follow up with pcp or follow up sooner if needed. Coding Level of Care Code Est Pt Level 3 (39960) Diagnoses Down syndrome Q90.9 Hospital discharge follow-up Z09 New onset left bundle branch block (LBBB) I44.7
[2023-06-11 12:12] VITALS: BP 90/70; PULSE 27; O2SAT 99
[2023-06-11 12:36] VITALS: PULSE 50
== END 2023-06-11 12:35 | disposition home or self-care (01) ==
PROVIDERS: PCP Internal Medicine; Visit Provider Internal Medicine
DX: Q90.9 Down syndrome, unspecified (principal); Z09 Encounter for follow-up examination after completed treatment for conditions other than malignant neoplasm; I44.7 Left bundle-branch block, unspecified
CPT/HCPCS: 99213

== ENCOUNTER 2023-09-07 09:46 | Outpatient (AMB) | payer MEDICARE, MEDICAID, SELFPAY ==
--- NOTE | 2023-09-07 09:49 | AM.OFFVISMDC ---
Intake Vital Signs 09/07/23 09:53 Height 4 ft 10 in Weight 92 lb 13.034 oz BMI 19.4 BP 120/70 Blood Pressure Location Lt brachial Position Sitting Intake Visit Reasons: AWV Intake Note: Patient is here for an Annual Wellness Visit. Turf Grower Required: No Quality Systems Engineer: Quality Systems Engineer Present Accompanied by: staff Allergies Sulfa (Sulfonamide Antibiotics) Allergy (Mild, Verified 09/07/23 09:52) HIVES sulfamethoxazole [From Bactrim] Allergy (Mild, Verified 09/07/23 09:52) HIVES amoxicillin [Amoxicillin] Allergy (Unknown, Verified 09/07/23 09:52) HIVES Clindamycin HCl Allergy (Unknown, Verified 09/07/23 09:52) rash trimethoprim [From Bactrim] Allergy (Unknown, Verified 09/07/23 09:52) HIVES Medication List - Last Reconciled 09/07/23 by Alfredo Walls MD acetaminophen 650 mg (20.3 mL) PO Q6H PRN aspirin 81 mg PO DAILY calcium carbonate-vitamin D3 600 mg-10 mcg (400 unit) 1 tab PO BID 28 days cholecalciferol (vitamin D3) 25 mcg PO QAM dextromethorphan-guaifenesin 10-100 mg/5 mL 10 mL PO Q4-6H PRN fluticasone propionate 50 mcg/actuation sprays intranasal gabapentin 300 mg PO BID ibuprofen 200 mg (10 mL) PO Q6H PRN lorazepam 1 mg PO DAILY PRN oxcarbazepine 300 mg PO BID oxcarbazepine (Trileptal) 150 mg PO BID sennosides-docusate sodium 8.6-50 mg (Senna Plus) 1 tab PO BEDTIME starch (thickening) (Thick-It oral powder) Thick-It - Powder as directed Orally-Mix with food 3 times a day Synthroid (levothyroxine) 137 mcg PO DAILY 30 days NS trazodone 50 mg PO BEDTIME PRN trazodone 50 mg PO BEDTIME PRN 90 days HPI AWV HPI Details 63-year-old female with down syndrome hypothyroid hypercholesterolemia with mental and behavioral change coming in for annual well visit. Last seen in June 2023 had new onset left bundle branch block patient has been followed up by Cardiology.. Reviewed notes received notes in August for swallow evaluation as patient has risk of aspiration pneumonia moderate advised ground solids liquids compared to honey [facility] Medical History (Updated 09/07/23 @ 19:27 by Alfredo Walls MD) Medicare annual wellness visit, subsequent Preoperative cardiovascular examination New onset left bundle branch block (LBBB) Lethargy COVID-19 virus infection Mental status alteration Colon cancer screening Atlantoaxial instability Cholelithiasis Mental and behavioral problem Hypercholesterolemia Vitamin D deficiency Closed right ankle fracture Patent foramen ovale Hypothyroid Megaloblastic anemia CVA (cerebral vascular accident) Cataracts, bilateral Down syndrome Jorge L's disease Surgical History Clubfoot Hx of tubal ligation Hx of cataract surgery History of colonoscopy Family History (Updated 09/07/23 @ 09:52 by BREANNA Amador) Father No problems noted. 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 Patient Tobacco Use Status: Never used Tobacco e-Cigarette/Vaping Use: Never Used Second Hand Smoke Exposure: No Advance Directives Date on File: 04/27/23 service: No Current occupational status: disabled Cognitive needs: Yes Hearing needs: No Vision needs: No Questionnaire Medicare Wellness Checkup What is your age?: 65-69 (63) What gender do you identify with?: female During the past 4 weeks, has your physical & emotional health limited your social activities with family, friends, neighbors, or groups?: not at all During the past 4 weeks, how much bodily pain have you generally had?: mild pain During the past 4 weeks, was someone available to help you if you needed & wanted help?: yes, as much as I wanted During the past 4 weeks, what was the hardest physical activity you could do for at least 2 minutes?: moderate Can you get to places out of walking distance without help? (For eg., can you travel alone on buses, taxis or drive your car?): No Can you go shopping for groceries or clothes without someone's help?: No Can you prepare your own meals?: No Can you do your housework without help?: No Because of any health problems, do you need the help of another person with your personal care needs such as eating, bathing, dressing or getting around the house?: Yes Can you handle your own money without help?: No During the past 4 weeks, how would you rate your health in general?: fair During the past 4 weeks how have things been going for you?: pretty well Are you having difficulties driving your car?: not applicable, I don't use a car Do you always fasten your seat belt when you are in a car?: yes, usually During past 4 weeks, have you been bothered by the following: never: Falling or dizzy when standing up, Sexual problems?, Trouble eating well? and Teeth or denture problems?, sometimes: Tiredness or fatigue? and always: Problems using the telephone? Have you fallen 2 or more times in the past year?: Yes Are you afraid of falling?: Yes Are you a smoker?: no During the past 4 weeks, how many drinks of wine, beer, or other alcoholic beverages did you have?: no alcohol at all Do you exercise for about 20 minutes 3 or more times a week?: yes, most of the time Have you been given information to help with the following?: yes: Hazards in your house that might hurt you? and no: Keeping track of your medications? How often do you have trouble taking medicines the way you have been told to take them?: I always take medicine as prescribed What is your race?: White PHQ-9 Over the last 2 weeks, how often have you been bothered by any of the following problems? 3. Trouble falling or staying asleep, or sleeping too much: more than half the days 5. Poor appetite or overeating: not at all 6. Feeling bad about yourself - or that you are a failure or have let yourself or your family down: not at all 7. Trouble concentrating on things, such as reading the newspaper or watching television: nearly every day 8. Moving or speaking so slowly that other people could have noticed. Or the opposite - being so fidgety or restless that you have been moving around a lot more than usual: not at all 9. Thoughts that you would be better off or of hurting yourself in some way: not at all Depression Screening Interpretation: Negative Depression Screening Done: Yes Source: Developed by Drs. Monico Cuellar, Peggy Morris, Parvez Guerrier and colleagues, with an educational tesha from [employer]. Thrive Questionnaire Date Thrive assessed: 09/07/23 I am a: Patient What is your living situation today?: I have a steady place to live Within the past 12 months, did the food you bought not last and you didn't have the money to get more?: Never true Within the past 12 months, did you worry whether your food would run out before you got money to buy more?: Never true Do you have trouble paying for medicines?: No Do you have trouble getting transportation to medical appointments?: No Do you have trouble paying your heating and electricity bill?: No Do you have trouble taking care of your child, family member or friend?: No Do you have trouble with day-to-day activities such as bathing, preparing meals, shopping, managing finances, etc.?: No Are you currently unemployed and looking for a job?: No Are you interested in more education?: No Currently or been in a relationship where the following occur: no concerns reported THRIVE Score: 0 NEHA-7 AMB Questionnaire NEHA-7 Date NEHA - 7 assessed: 09/07/23 Feeling nervous, anxious, or on edge: 1 = Several days Not being able to stop or control worryin = Not at all Worrying too much about different things: 0 = Not at all Trouble relaxin = Not at all Being so restless that it is hard to sit still: 0 = Not at all Becoming easily annoyed or irritable: 1 = Several days Feeling afraid as if something awful might happen: 0 = Not at all Total NEHA-7 score (0-4 normal; 5-9 mild; 10-14 moderate; 15-21 severe): 2 Source: Developed by Drs. Monico Cuellar, Parvez Murdock and colleagues, with an educational tesha from [employer]. AUDIT C Alcohol Use Questionnaire (AUDIT-C) 1. How often do you have a drink containing alcohol?: Never Total Score: 0 Review of Systems Const Denies poor appetite and Denies weakness Eyes Denies no additional complaints ENT Reports Normal hearing present, Denies dizziness, Denies nasal congestion, Denies tinnitus and Denies sore throat Card Denies chest pain, Denies syncope, Denies rapid heart rate and Denies dyspnea Resp Denies cough and Denies dyspnea GI Denies change in stool character, Reports constipation, Denies diarrhea, Denies nausea and Denies vomiting Denies urinary frequency, Denies difficulty voiding and Denies dysuria Neuro Reports Normal hearing present, Denies confusion, Denies dizziness, Denies syncope and Denies weakness Psych Denies confusion Physical Exam Vital Signs: Last Vital Signs BP 120/70 09/07/23 09:53 BMI result Body Mass Index 19.4 Const General: No confusion Orientation/consciousness: No confusion HEENT Head: Yes normocephalic Ears: external ears normal and TM's normal bilaterally Face and sinus: Yes normal facial exam Mouth: moist mucous membranes Throat: Yes tonsils normal Eyes Conjunctivae: conjunctivae normal Pupils: Equal, round and reactive pupils present and Pupil accommodation reflex normal Direct Ophthalmoscopy: normal light reflex Neck Neck: No lymphadenopathy Thyroid: Thyroid normal Chest Chest palpation & inspection: normal inspection of the chest Resp Effort & Inspection: normal respiratory effort and no audible wheezes Auscultation: clear to auscultation bilaterally, no crackles, no wheezes and lung sounds not diminished Cardio Rate: regular rate Rhythm: regular rhythm Peripheral pulses: radial pulses present and dorsalis pedis present GI Palpation (GI): no masses Auscultation: normal bowel sounds and normoactive bowel sounds Rectal Exam - Female: deferred Skin General skin exam: no rashes or lesions noted Rashes: no rashes Neuro General: No confusion Cranial nerves: Yes Equal, round and reactive pupils present and Yes Normal hearing present Cognition (Neuro): normal cognition Gait exam (Neuro): Normal gait present Motor exam (neuro): 5/5 motor strength present throughout Deep tendon reflexes (DTR's): Right brachioradialis reflex intensity grade: 2+, Left brachioradialis reflex intensity grade: 2+, Right patellar reflex intensity grade: 2+ and Left patellar reflex intensity grade: 2+ Extrem General: No edema Immunizations tetanus-diphtheria toxoids-Td 2 Lf unit-2 Lf unit/0.5 mL IM suspension Performing Provider: Alfredo Walls MD [facility] Administered by: BREANNA Her on 09/07/23 10:44 Dose Route Admin Location Dispensed Lot Number Expiration Date NDC [employer] 0.5 mL IM Left Deltoid 0.5 mL [id number] 08/15/24 [address]-1 [employer] VIS Given Date VIS Provided VIS Publication Date 09/07/23 Single Vaccine 21 Eligibility Eligibility Date Funding Source Not [facility] Eligible 09/07/23 State funds Assessment & Plan Assessment & Plan (1) Hypothyroid: Comment: Myxedema March 2019 Code(s): E03.9 - Hypothyroidism, unspecified Qualifiers: Hypothyroidism type: unspecified Qualified Code(s): E03.9 - Hypothyroidism, unspecified Plan: Continue with thyroid medication blood work as needed (2) Hypercholesterolemia: Code(s): E78.00 - Pure hypercholesterolemia, unspecified Plan: Avoid fried foods, chicken skin, eggs, butter margarine, pastries and meat. Be it pork or beef they have a lot of cholesterol advised to get blood work done (3) Mental and behavioral problem: Code(s): F48.9 - Nonpsychotic mental disorder, unspecified; F69 - Unspecified disorder of adult personality and behavior Plan: Continue follow-up with counseling and therapy (4) Breast cancer screening by mammogram: Code(s): Z12.31 - Encounter for screening mammogram for malignant neoplasm of breast Plan: Reminded about mammogram (5) Medicare annual wellness visit, subsequent: Code(s): Z00.00 - Encounter for general adult medical examination without abnormal findings Plan: Keep well hydrated, eat healthy and keep active (6) Down syndrome: Code(s): Q90.9 - Down syndrome, unspecified Plan: Stable (7) New onset left bundle branch block (LBBB): Code(s): I44.7 - Left bundle-branch block, unspecified Plan: Continuing to just monitor. Orders: Orders MM tomosynthesis screening BI Today Z00.00 - Encounter for general adult medical examination without abnormal findings, Z12.31 - Encounter for screening mammogram for malignant neoplasm of breast Td State Immunization Today Z23 - Encounter for immunization Coding Level of Care Code Medicare Subsequent (G0439) Diagnoses Hypothyroidism, unspecified type E03.9 Hypothyroidism type: unspecified Hypercholesterolemia E78.00 Mental and behavioral problem F48.9; F69 Breast cancer screening by mammogram Z12.31 Medicare annual wellness visit, subsequent Z00.00 Down syndrome Q90.9 New onset left bundle branch block (LBBB) I44.7
[2023-09-07 09:53] VITALS: BP 120/70; BMI 19.4
== END 2023-09-07 10:46 | disposition home or self-care (01) ==
PROVIDERS: PCP Internal Medicine; Visit Provider Internal Medicine
DX: E03.9 Hypothyroidism, unspecified (principal); E78.00 Pure hypercholesterolemia, unspecified; F48.9 Nonpsychotic mental disorder, unspecified; F69 Unspecified disorder of adult personality and behavior; Z12.31 Encounter for screening mammogram for malignant neoplasm of breast; Z00.00 Encounter for general adult medical examination without abnormal findings; Q90.9 Down syndrome, unspecified; I44.7 Left bundle-branch block, unspecified; Z23 Encounter for immunization
CPT/HCPCS: 90471; 90714; G0439

== ENCOUNTER 2023-09-08 09:46 | Outpatient (REF) | payer MEDICARE, MEDICAID, SELFPAY ==
[2023-09-08 10:10] LABS: MANUAL DIFF FLAG NO
[2023-09-08 11:07] LABS: Hematocrit 41.8 % (37.0-47.0); Hemoglobin 13.6 g/dl (12.0-16.0); Mean Corpuscular Hemoglobin 34.1 pg (27.0-33.0); Mean Corpuscular Volume 104.8 fL (80.0-98.0); Red Blood Count 3.99 X10*6/uL (4.20-5.50); White Blood Count 5.7 X10*3/uL (4.8-10.8)
[2023-09-08 11:08] LABS: Basophils Absolute Auto 0.1 X10*3/uL (0.0-0.2); Basophils Percent Auto 0.9 % (0-2); Eosinophils Absolute Auto 0.2 X10*3/uL (0.0-0.4); Imm Gran Abs Auto 0.02 X10*3/uL (0.00-0.03); Imm Gran Pct Auto 0.4 % (0.0-0.4); Mean Corpuscular HGB Conc 32.5 g/dl (31.0-35.0); Mean Platelet Volume 9.9 fL (9.4-12.3); Monocytes Absolute Auto 0.5 X10*3/uL (0.1-1.2); Neutrophils Percent Auto 70.7 % (45-73); Platelet Count 159 X10*3/uL (160-400); Red Cell Distribution Width 13.8 % (11.0-16.0)
[2023-09-08 11:42] LABS: Alanine Aminotransferase 14 U/L (0-31); Albumin Level 3.6 g/dL (3.5-5.0); Alkaline Phosphatase 100 U/L (39-117); Anion Gap 10 (12-20); Aspartate Amino Transferase 19 U/L (5-31); Bilirubin Total 0.2 mg/dL (0.0-1.0); Blood Urea Nitrogen 16 mg/dL (9-16); Carbon Dioxide 33 mmol/L (22-29); Chloride 104 mmol/L (96-108); Cholesterol 189 mg/dL (<200); Estimated Glomerular Filt Rate > 60; Glucose Random 85 mg/dL (60-115); HDL Cholesterol 59 mg/dL (>40); LDL Cholesterol Calculated 115 mg/dL (<100); Magnesium 2.1 mg/dL (1.6-2.6); Potassium 4.5 mmol/L (3.3-5.1); Sodium 142 mmol/L (135-145); Triglycerides 78 mg/dL (<150)
[2023-09-08 12:00] LABS: Free T4 (Free Thyroxine) 0.62 ng/dL (0.71-1.85); Thyroid Stimulating Hormone 9.07 uIU/mL (0.32-4.0); Vitamin D 25-OH Total 43.6 ng/mL (>30)
[2023-09-08 12:11] LABS: Folate 9.1 ng/mL (> or = 4.0); Vitamin B12 481 pg/mL (200-900)
== END 2023-09-08 09:47 | disposition home or self-care (01) ==
LOC: HO.LAB 09:46
PROVIDERS: PCP Internal Medicine; Visit Provider Internal Medicine
DX: I44.7 Left bundle-branch block, unspecified (principal); E78.00 Pure hypercholesterolemia, unspecified
CPT/HCPCS: 36415; 80053; 80061; 82306; 82607; 82746; 83735; 84439; 84443; 85025

== ENCOUNTER 2023-09-22 09:59 | Outpatient (REF) | payer MEDICARE, MEDICAID, SELFPAY | END 2023-09-22 10:00 | disposition home or self-care (01) | LOC: HO.MAMMO 09:59 | PROVIDERS: PCP Internal Medicine; Visit Provider Internal Medicine | DX: Z13.89 Encounter for screening for other disorder (principal) ==

== ENCOUNTER 2023-09-29 14:53 | Outpatient (AMB) | payer MEDICARE, MEDICAID, SELFPAY ==
[2023-09-29 14:56] VITALS: BP 110/62; PULSE 61; O2SAT 95; BMI 19.6
--- NOTE | 2023-09-29 14:56 | A.OFFPC_ITS ---
Vital Signs 09/29/23 14:56 Height 4 ft 10 in Weight 93 lb 14.671 oz BMI 19.6 BP 110/62 Blood Pressure Location Rt brachial Position Sitting Pulse 61 Pulse Source Pulse Oximeter Pulse Oximetry (%) 95 Oxygen Delivery Method Room Air Intake Visit Reasons: Hemorrhoids Marketing Production Specialist Required: No Allergies Sulfa (Sulfonamide Antibiotics) Allergy (Mild, Verified 09/29/23 14:56) HIVES sulfamethoxazole [From Bactrim] Allergy (Mild, Verified 09/29/23 14:56) HIVES amoxicillin [Amoxicillin] Allergy (Unknown, Verified 09/29/23 14:56) HIVES Clindamycin HCl Allergy (Unknown, Verified 09/29/23 14:56) rash trimethoprim [From Bactrim] Allergy (Unknown, Verified 09/29/23 14:56) HIVES Medication List - Last Reconciled 09/29/23 by Alfredo Walls MD acetaminophen 650 mg (20.3 mL) PO Q6H PRN aspirin 81 mg PO DAILY calcium carbonate-vitamin D3 600 mg-10 mcg (400 unit) 1 tab PO BID 28 days cholecalciferol (vitamin D3) 25 mcg PO QAM dextromethorphan-guaifenesin 10-100 mg/5 mL 10 mL PO Q4-6H PRN fluticasone propionate 50 mcg/actuation sprays intranasal gabapentin 300 mg PO BID hydrocortisone 2.5% (Proctosol HC) 1 appl CA BID PRN ibuprofen 200 mg (10 mL) PO Q6H PRN lorazepam 1 mg PO DAILY PRN oxcarbazepine 300 mg PO BID oxcarbazepine (Trileptal) 150 mg PO BID sennosides-docusate sodium 8.6-50 mg (Senna Plus) 1 tab PO BEDTIME starch (thickening) (Thick-It oral powder) Thick-It - Powder as directed Orally-Mix with food 3 times a day Synthroid (levothyroxine) 137 mcg PO DAILY 30 days NS trazodone 50 mg PO BEDTIME PRN trazodone 50 mg PO BEDTIME PRN 90 days Tobacco use date assessed: 09/29/23 HPI Hemorrhoids HPI Details 63-year-old female with down syndrome wi th hypothyroidism hypercholesterolemia coming in for follow-up. Last seen early this month for annual well visit. concern on hemorhoid patient is not sure to have constipation and not sure whether there is blood in the stools. [facility] Medical History (Updated 09/29/23 @ 15:19 by Alfredo Walls MD) Medicare annual wellness visit, subsequent Preoperative cardiovascular examination New onset left bundle branch block (LBBB) Lethargy COVID-19 virus infection Mental status alteration Colon cancer screening Atlantoaxial instability Cholelithiasis Mental and behavioral problem Hypercholesterolemia Vitamin D deficiency Closed right ankle fracture Patent foramen ovale Hypothyroid Megaloblastic anemia CVA (cerebral vascular accident) Cataracts, bilateral Down syndrome Jorge L's disease Surgical History Clubfoot Hx of tubal ligation Hx of cataract surgery History of colonoscopy Family History (Updated 09/07/23 @ 09:52 by BREANNA Amador) Father No problems noted. 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 How often do you have a drink containing alcohol?: Never Total Score: 0 NEHA-7 AMB Questionnaire NEHA-7 Date NEHA - 7 assessed: 09/07/23 Source: Developed by Drs. Monico Cuellar, Peggy Morris, Parvez Guerrier and colleagues, with an educational tesha from [employer]. Physical exam (Primary Care) Vital Signs: Oxygen Delivery Method Room Air 09/29/23 14:56 BMI result Body Mass Index 19.6 Tobacco/Smoking Status: Tobacco use Status Tobacco use date assessed 09/29/23 09/29/23 15:03 Patient Tobacco Use Status Never used Tobacco 09/29/23 15:03 e-Cigarette/Vaping Use Never Used 09/29/23 15:03 Thrive Assessment: Date of Thrive Assessment Date Thrive assessed 09/07/23 09/29/23 15:03 Const General: alert; No acute distress Eyes Conjunctivae: conjunctivae normal Resp Auscultation: clear to auscultation bilaterally Cardio Rate: regular rate Rhythm: regular rhythm GI Other: Hemorrhoids noted Extrem General: Yes normal to inspection and No edema Assessment and Plan Assessment & Plan (1) Hypothyroid: Comment: Myxedema March 2019 Code(s): E03.9 - Hypothyroidism, unspecified Qualifiers: Hypothyroidism type: unspecified Qualified Code(s): E03.9 - Hypothyroidism, unspecified Plan: long discussion on the need to take synthroid by itself with no food or other medicine with it. so will take in 6 am - will need to retest in 6 weeks TSH and T4 (2) Hypercholesterolemia: Code(s): E78.00 - Pure hypercholesterolemia, unspecified Plan: Avoid fried foods, chicken skin, eggs, butter margarine, pastries and meat. Be it pork or beef they have a lot of cholesterol. Blood work is within normal limits. (3) Down syndrome: Code(s): Q90.9 - Down syndrome, unspecified (4) Constipation: Code(s): K59.00 - Constipation, unspecified Plan: Three rules for constipation 1. Diet need to have a high fiber diet less of meat 2. Increase oral fluids 3. Exercise (5) Hemorrhoid: Code(s): K64.9 - Unspecified hemorrhoids Plan: Proctosol prescription cream sent in twice a day for 1 month. But discussed the need to avoid getting constipated Medications: New hydrocortisone 2.5% (Proctosol HC) 1 appl CA BID PRN 30 grams 2RF hemorrhoids K64.9 - Unspecified hemorrhoids Coding Level of Care Code Est Pt Level 4 (48496) Diagnoses Hypothyroidism, unspecified type E03.9 Hypothyroidism type: unspecified Hypercholesterolemia E78.00 Down syndrome Q90.9 Constipation K59.00 Hemorrhoid K64.9
== END 2023-09-29 15:35 | disposition home or self-care (01) ==
PROVIDERS: PCP Internal Medicine; Visit Provider Internal Medicine
DX: E03.9 Hypothyroidism, unspecified (principal); E78.00 Pure hypercholesterolemia, unspecified; Q90.9 Down syndrome, unspecified; K59.00 Constipation, unspecified; K64.9 Unspecified hemorrhoids
CPT/HCPCS: 99214

== ENCOUNTER 2023-10-08 14:25 | Outpatient (REF) | payer MEDICARE, MEDICAID, SELFPAY ==
--- NOTE | ~2023-10-08 | MM_ITS ---
EXAMINATION: BONE DENSITOMETRY CLINICAL INDICATION: Age-related osteoporosis without current pathological fracture. COMPARISON: Previous BD dated 12/04/2017 and baseline BD dated 03/02/2012. TECHNIQUE: Using a [employer] DXA System (software version: 13.1) manufactured by [employer], dual-energy x-ray absorptiometry was performed of the lumbar spine and left hip. The images are of good technical quality. Summary results are attached. FINDINGS: LEFT FEMUR, NECK: Current: BMD 0.547 g/cm2, Z-score -1.7, T-score -3.5, osteoporosis. Prior: BMD 0.733 g/cm2. Baseline: BMD 0.784 g/cm2. LEFT FEMUR, TOTAL: Current: BMD 0.582 g/cm2, Z-score -1.7, T-score -3.4, osteoporosis, 22.4% decrease from previous, 32.9% decrease from baseline (<5% change is not significant). Prior: BMD 0.750 g/cm2. Baseline: BMD 0.867 g/cm2. AP SPINE L1-L4: Current: BMD 0.824 g/cm2, Z-score -0.8, T-score -3.0, osteoporosis, 7.5% decrease from previous, 11.6% decrease from baseline (<5% change is not significant). Prior: BMD 0.891 g/cm2. Baseline: BMD 0.932 g/cm2. IDENTIFIED RISK FACTORS: Dementia, menopause, recurrent falls, secondary osteoporosis (hyperthyroidism). HISTORY OF FRACTURE: None listed. MEDICATIONS: Calcium, vitamin D. MM/XR DEXA axial skeleton IMPRESSION: 1. DIAGNOSIS: Osteoporosis based on the lowest T-score value of -3.5 in the femoral neck applying World Health Organization criteria. 2. 10-YEAR FRACTURE RISK PREDICTION, FRAX: According to the guidelines, FRAX calculation should only be performed on patients in the osteopenia bone density category. Therefore, FRAX was not performed on this patient.? 3. Treatment Recommendations: NOF guidelines recommend consideration for treatment in postmenopausal women and men age 50 and older presenting with the following: -A hip or vertebral (clinical or morphometric) fracture. -T-score less than or equal to -2.5 at the femoral neck or spine after appropriate evaluation to exclude secondary causes. -Low bone mass at the hip or spine and a 10-year fracture probability by FRAX of greater than or equal to 3% for hip fracture or greater than or equal to 20% for major osteoporotic fracture based on the [place] adapted WHO algorithm. 4. Other Recommendations: All treatment decisions require clinical judgment and consideration of individual patient factors, including patient preferences, comorbidities, previous drug use, risk factors not captured in the FRAX model (e.g. frailty, falls, vitamin D deficiency, increased bone turnover, interval significant decline in bone density) and possible under or overestimation of fracture risk by FRAX. Additional medical evaluation for secondary cause of low bone mineral density may be appropriate. FUTURE SCAN RECOMMENDATION: People with diagnosed cases of osteoporosis or at high risk for fracture should have regular bone mineral density tests. For patients eligible for Medicare, routine testing is allowed once every 2 years. The testing frequency can be increased to one year for patients who have rapidly progressing disease, those who are receiving or discontinuing medical therapy to restore bone mass, or have additional risk factors.
== END 2023-10-08 14:26 | disposition home or self-care (01) ==
LOC: HO.MAMMO 14:25
PROVIDERS: PCP Internal Medicine; Visit Provider Internal Medicine
DX: Z13.820 Encounter for screening for osteoporosis (principal); Z78.0 Asymptomatic menopausal state; M85.80 Other specified disorders of bone density and structure, unspecified site; M81.0 Age-related osteoporosis without current pathological fracture
CPT/HCPCS: 77080

== ENCOUNTER 2023-11-04 08:30 | Outpatient (REF) | payer MEDICARE, MEDICAID, SELFPAY ==
[2023-11-04 10:10] LABS: Free T4 (Free Thyroxine) 1.05 ng/dL (0.71-1.85); Thyroid Stimulating Hormone 1.33 uIU/mL (0.32-4.0)
== END 2023-11-04 08:31 | disposition home or self-care (01) ==
LOC: HO.LAB 08:30
PROVIDERS: PCP Internal Medicine; Visit Provider Internal Medicine
DX: E03.9 Hypothyroidism, unspecified (principal)
CPT/HCPCS: 36415; 84439; 84443

== ENCOUNTER 2023-12-11 06:34 | Inpatient (IN) | payer MEDICARE, MEDICAID, SELFPAY ==
[2023-12-11] VITALS (11 sets, daily range): BP systolic 92–121; BP diastolic 60–76; PULSE 58–73; RESP 14–20; TEMP 35.9–37; O2SAT 86–98; BMI 18.4
--- NOTE | ~2023-12-11 | XR_ITS ---
EXAMINATION: XR CHEST CLINICAL INFORMATION: Syncope. Fall. COMPARISON: Previous chest x-ray from 2018 and CTA from 2022 TECHNIQUE: Frontal view of the chest was obtained. FINDINGS: The patient is rotated to the right. Cardiac and mediastinal contours are unremarkable. There is question of bronchial wall thickening at the lung bases versus changes due to patient rotation and positioning. Lungs otherwise clear. No pleural effusion or pneumothorax. Degenerative changes of the spine and right shoulder. XR/XR chest 1V IMPRESSION: Limited exam due to patient rotation. No evidence for acute acute traumatic change in the chest. Question bronchial wall thickening at the lung bases.
--- NOTE | 2023-12-11 06:56 | ED_ITS ---
HPI - Syncope General Chief Complaint: Syncope Stated Complaint: syncope Time Seen by Provider: 12/11/23 06:52 Source: patient Mode of arrival: ambulatory Limitations: no limitations History of Present Illness ED Provider: Dr. Chris Moulton HPI narrative: 63-year-old female with history of Down syndrome, Jorge L's thyroiditis, gallstones, patent foramen ovale, stroke who presents emergency department for evaluation of syncopal episode. The patient is nonverbal and does and is not able to give a history. EMS reported that the staff members at the nursing home were new and did not know the patient well. Our nursing triage note states that the patient was incontinent of stool in urine on arrival. Patient was found to be hypoxic with an O2 saturation of 86% on room air and was placed on 2 L of oxygen via nasal cannula with O2 saturations in the 92-96% range. The patient's nursing home staff member did come to emergency department states the patient has had unusual fatigue over the last several days with good oral intake, she has also had a cough that has developed over the last several days. Related Data Home Medications ?Medication ?Instructions ?Recorded ?Confirmed gabapentin 300 mg capsule 300 mg PO BID 01/10/21 09/29/23 oxcarbazepine 300 mg tablet 300 mg PO BID 06/17/22 09/29/23 oxcarbazepine 150 mg tablet 150 mg PO BID 07/31/22 09/29/23 (Trileptal) trazodone 50 mg tablet 50 mg PO BEDTIME PRN 09/07/23 09/29/23 Previous Rx's ?Medication ?Instructions ?Recorded trazodone 50 mg tablet 50 mg PO BEDTIME PRN sleep 90 days 06/24/22 #90 tabs ibuprofen 100 mg/5 mL oral 200 mg (10 mL) PO Q6H PRN pain 03/16/23 suspension #120 mL acetaminophen 650 mg/20.3 mL oral 650 mg (20.3 mL) PO Q6H PRN fever 04/22/23 solution or pain #609 mL cholecalciferol (vitamin D3) 25 25 mcg PO QAM #90 tabs 06/02/23 mcg (1,000 unit) tablet calcium carbonate 600 mg-vitamin 1 tab PO BID 28 days #180 tabs 06/14/23 D3 10 mcg (400 unit) tablet aspirin 81 mg chewable tablet 81 mg PO DAILY #90 tabs 06/30/23 sennosides 8.6 mg-docusate sodium 1 tab PO BEDTIME #28 tabs 06/30/23 50 mg tablet (Senna Plus) starch (thickening) (Thick-It oral See Rx Instructions PO TIDWMEAL 08/28/23 powder) #6,120 grams hydrocortisone 2.5 % topical cream 1 appl GA BID PRN hemorrhoids #30 09/29/23 with perineal applicator grams (Proctosol HC) dextromethorphan-guaifenesin 10 10 ml PO Q4-6H PRN cough #237 mL 10/02/23 mg-100 mg/5 mL oral syrup fluticasone propionate 50 1 spray intranasal DAILY #16 grams 10/02/23 mcg/actuation nasal spray,suspension lorazepam 1 mg tablet 1 mg PO DAILY PRN Anxiety #30 tabs 10/07/23 Synthroid 137 mcg tablet 137 mcg PO DAILY 30 days #90 tabs 12/09/23 (levothyroxine) Allergies Allergy/AdvReac Type Severity Reaction Status Date / Time Sulfa (Sulfonamide Allergy Mild HIVES Verified 12/11/23 06:45 Antibiotics) sulfamethoxazole Allergy Mild HIVES Verified 12/11/23 06:45 [From Bactrim] amoxicillin [Amoxicillin] Allergy Unknown HIVES Verified 12/11/23 06:45 Clindamycin HCl Allergy Unknown rash Verified 12/11/23 06:45 trimethoprim [From Bactrim] Allergy Unknown HIVES Verified 12/11/23 06:45 Review of Systems 2 Review of Systems: Yes Unobtainable due to mental condition (Down syndrome, nonverbal) [facility] Past Medical History Medical History (Updated 12/11/23 @ 11:11 by Chris Moulton MD) Medicare annual wellness visit, subsequent Preoperative cardiovascular examination New onset left bundle branch block (LBBB) Lethargy COVID-19 virus infection Mental status alteration Colon cancer screening Atlantoaxial instability Cholelithiasis Mental and behavioral problem Hypercholesterolemia Vitamin D deficiency Closed right ankle fracture Patent foramen ovale Hypothyroid Megaloblastic anemia CVA (cerebral vascular accident) Cataracts, bilateral Down syndrome Jorge L's disease Surgical History Clubfoot Hx of tubal ligation Hx of cataract surgery History of colonoscopy Family History Family History (Updated 09/07/23 @ 09:52 by BREANNA Amador) Father No problems noted. Mother Hx of cancer of lung Social History Social History Household Members: Unknown / Unable to assess Household Members Other:: [facility] Housing: Other Housing Other:: nursing home Unable to assess alcohol history related to: Unable to respond and Unknown Alcohol intake: never Comment: patient home care associate at bed side Patient Tobacco Use Status: Never used Tobacco e-Cigarette/Vaping Use: Never Used Second Hand Smoke Exposure: No Advance Directives: No Advance Directives Information Provided: No Advance Directives Date on File: 04/27/23 Patient : No service: No Current occupational status: disabled Cognitive needs: Yes Hearing needs: No Vision needs: No Physical Exam 2 Vital Signs: Vital Signs: Last Vital Signs Temp 98.2 F 12/11/23 11:17 Pulse 66 12/11/23 11:17 Resp 14 12/11/23 11:17 BP 107/63 12/11/23 11:17 Pulse Ox 95 12/11/23 11:17 O2 Del Method Room Air 12/11/23 11:17 O2 Flow Rate 2 12/11/23 06:45 BMI result Body Mass Index 18.4 Vital signs were normal Exam: General: Awake, alert , nonverbal, down syndrome features, does not appear to be in distress Head: atraumatic EENT: PERRL, Lids normal, sclera normal, conjunctiva normal, nose normal , ears normal, throat without erythema or exudates Neck: Supple, no adenopathy Lung: breath sounds symmetric, no wheezing, rales or rhonchi Chest: symmetric movement, nontender Heart: regular rate and rhythm, normal S1, S2 no murmurs or rubs Abdomen: soft, non-tender, nondistended, normal bowel sounds Back: no vertebral tenderness, no CVAT Extremities: no deformities, moves all extremities symmetrically Neuro: Awake, alert,cranial nerves intact appear to be intact, moves all extremities symmetrically Psych: Pleasant, cooperative Medications Administered Discontinued Medications Generic Name Dose Route Start Last Admin Trade Name Freq PRN Reason Stop Dose Admin Ceftriaxone Sodium 1 gm/ 50 mls @ 100 mls/hr 12/11/23 09:00 12/11/23 10:14 Sodium Chloride IV 12/11/23 09:29 Infused ONCE ONE Infusion Azithromycin 500 mg/ Sodium 250 mls @ 125 mls/hr 12/11/23 09:00 12/11/23 12:22 Chloride IV 12/11/23 10:59 Infused ONCE ONE Infusion Sodium Chloride 1,239 mls @ 1,239 mls/hr 12/11/23 09:25 12/11/23 10:47 Ns 30 ml/kg infuse over 1 hr (1239 ml) 12/11/23 10:24 Infused IV Infusion .Q1H STA Medical Decision Making Medical Decision Making MDM Narrative: 63-year-old female with history of Down syndrome, Jorge L's thyroiditis, gallstones, patent foramen ovale, stroke who presents emergency department for evaluation of syncopal episode while she was taking a shower, syncope was witnessed and the patient was lower to the ground and had no reported head trauma. Patient was hypoxic on arrival with an O2 saturation of 86% on room air which improved with 2 L of oxygen via nasal cannula. Vital signs were normal except for O2 saturations dropping as low as 84% on room air which improved on oxygen via nasal cannula. Exam is consistent with her down syndrome. Differential diagnosis: 09:00 Includes but is not limited to myocardial infarction, myocardial ischemia, bradyarrhythmia, tachyarrhythmia, vasovagal syncope, anemia, electrolyte abnormalities Following evaluation was ordered: CBC, CMP, troponin, COVID-19, RSV, influenza EKG, chest x-ray one view Course: 09:00 My interpretation patient's laboratory evaluation is as follows: WBC was normal 7600 with a left shift 87 neutrophils, 4 lymphocytes no bands. CO2 elevated 33, BUN elevated 23 with a normal creatinine of 1.19. LFTs were normal. Lactic acid was normal 1.1. COVID-19, RSV and influenza were negative. Initial high sensitive troponin I troponin was detectable but not elevated at 5.5. Repeat 3 hour troponin pending My interpretation the patient's chest x-ray is left lower lobe infiltrate, radiologist felt that the patient at question bronchial wall thickening of the lung bases. Given her hypoxia and need for oxygen, I suspect that she has an early left lower lobe pneumonia. Patient was treated with oxygen 2 L via nasal cannula, normal saline bolus 30 cc/kilogram, ceftriaxone 1 g IV and azithromycin 500 mg IV. I suspect that the patient's syncopal episode was more consistent with a vasovagal syncope since it occurred while she was taking shower. 12:31 Repeat 3 hour troponin was 4.9 which is not significantly changed from the 1st troponin suggesting that she did not have myocardial injury or infarction is the cause of her syncope I did discuss the patient's presentation over tiger text with the covering hospitalist, Sirisha Jefferson and the patient will be admitted for further management. Admission/Observation Consideration of admission/observation: Escalation of care including admission/observation considered Consult Healthcare Provider Management of the patient was discussed with: Hospitalist Lab Data MDM Lab Attestation statement: I reviewed the patient's lab results. 12/11/23 07:47 12/11/23 07:47 Labs: Lab Results 12/11/23 12/11/23 12/11/23 Range/Units 07:47 09:36 11:13 WBC 7.6 (4.8-10.8) X10*3/uL RBC 4.49 (4.20-5.50) X10*6/uL Hgb 15.5 (12.0-16.0) g/dl Hct 46.6 (37.0-47.0) % MCV 103.8 H (80.0-98.0) fL MCH 34.5 H (27.0-33.0) pg MCHC 33.3 (31.0-35.0) g/dl RDW 13.0 (11.0-16.0) % Plt Count 156 L (160-400) X10*3/uL MPV 9.5 (9.4-12.3) fL Immature Gran % (Auto) 0.5 H (0.0-0.4) % Neut % (Auto) 87.2 H (45-73) % Lymph % (Auto) 4.1 L (20-40) % [place] % (Auto) 6.2 (2-11) % Eos % (Auto) 1.6 (0-4) % Baso % (Auto) 0.4 (0-2) % Lymph # (Auto) 0.3 L (1.2-4.9) X10*3/uL [place] # (Auto) 0.5 (0.1-1.2) X10*3/uL Eos # (Auto) 0.1 (0.0-0.4) X10*3/uL Baso # (Auto) 0.0 (0.0-0.2) X10*3/uL Abs Immat Gran (auto) 0.04 H (0.00-0.03) X10*3/uL Absolute Neuts (auto) 6.7 (2.0-8.3) x10*3/uL Absolute Nucleated RBC 0.000 (0.0-0.012) X10*3/uL Nucleated RBC % (auto) 0.0 (0.0-0.2) /100WBC Sodium 143 (135-145) mmol/L Potassium 4.8 (3.3-5.1) mmol/L Chloride 103 (96-108) mmol/L Carbon Dioxide 33 H (22-29) mmol/L Anion Gap 12 (12-20) BUN 23 H (9-16) mg/dL Creatinine 1.19 (0.5-1.4) mg/dL Estim Creat Clear Calc 31.5 Estimated GFR 46 Random Glucose 113 (60-115) mg/dL Lactic Acid 1.1 (0.5-2.0) mmol/L Calcium 9.6 D (8.4-10.2) mg/dL Total Bilirubin 0.4 (0.0-1.0) mg/dL AST 20 (5-31) U/L ALT 18 (0-31) U/L Alkaline Phosphatase 107 (39-117) U/L Troponin I High Sens 5.5 4.9 (<3.5-17.0) ng/L B-Natriuretic Peptide 48 (<100) pg/mL Total Protein 7.5 (6.5-8.0) g/dL Albumin 3.8 (3.5-5.0) g/dL Influenza Type A (PCR) NEGATIVE (Negative) Influenza Type B (PCR) NEGATIVE (Negative) RSV RNA Qual (PCR) NEGATIVE (Negative) SARS-CoV-2 RNA (RT-PCR) NEGATIVE (Negative) Independent Interpretation I performed an independent interpretation of an: EKG and Plain X-Ray Interpretation: My interpretation patient's chest x-ray is as follows: Left lower lobe infiltrate My interpretation patient's 12 EKG done at 07:32 hours is as follows: Sinus rhythm with a first-degree AV block with a rate of 65 and a GA interval of 210 milliseconds, prolonged QRS duration of 122 milliseconds, normal QTC interval of 470 milliseconds, left bundle-branch block, no ST segment elevation, no ST segment depression Radiology Impression Discussion of test interpretation with radiology: I have reviewed the radiologist's reading. Radiologist Impression: R chest 1V IMPRESSION: Limited exam due to patient rotation. No evidence for acute acute traumatic change in the chest. Question bronchial wall thickening at the lung bases. Dictated By: Stacia Umanzor MD Critical Care Time Critical Care Time Critical Care Time: Yes Total Critical Care Time: 45 Attestation: Critical Care: The patient was critically ill with a high probability of imminent or life threatening deterioration. I spent greater than 30 minutes of discontinuous time evaluating the patient,delivering critical care at the bedside, discussing and evaluating pertinent data with consultants. Critical care time does not include time spent performing separately billable procedures or teaching. Total time spent performing critical care was 45 minutes. Discharge Plan Discharge Prescriptions: No Action trazodone 50 mg tablet 50 mg PO BEDTIME PRN (Reason: sleep) 90 Days Qty: 90 3RF ibuprofen 100 mg/5 mL suspension 200 mg PO Q6H PRN (Reason: pain) Qty: 120 0RF acetaminophen 650 mg/20.3 mL solution 650 mg PO Q6H PRN (Reason: fever or pain) Qty: 609 0RF cholecalciferol (vitamin D3) 25 mcg (1,000 unit) tablet 25 mcg PO QAM Qty: 90 3RF calcium carbonate-vitamin D3 600 mg-10 mcg (400 unit) tablet 1 tab PO BID 28 Days Qty: 180 2RF aspirin 81 mg tablet,chewable 81 mg PO DAILY Qty: 90 3RF sennosides-docusate sodium [Senna Plus] 8.6-50 mg tablet 1 tab PO BEDTIME Qty: 28 11RF Thick-It Powder See Rx Instructions PO TIDWMEAL Qty: 6120 4RF Rx Instructions: Thick-It - Powder as directed Orally-Mix with food 3 times a day fluticasone propionate 50 mcg/actuation spray,suspension 1 spray intranasal DAILY Qty: 16 5RF dextromethorphan-guaifenesin 10-100 mg/5 mL syrup 10 ml PO Q4-6H PRN (Reason: cough) Qty: 237 1RF lorazepam 1 mg tablet 1 mg PO DAILY PRN (Reason: Anxiety) Qty: 30 0RF levothyroxine [Synthroid] 137 mcg tablet 137 mcg PO DAILY 30 Days Qty: 90 0RF gabapentin 300 mg capsule 300 mg PO BID oxcarbazepine [Trileptal] 150 mg tablet 150 mg PO BID trazodone 50 mg tablet 50 mg PO BEDTIME PRN Rx Instructions: Dr. Dent hydrocortisone [Proctosol HC] 2.5 % cream with perineal applicator 1 appl GA BID PRN (Reason: hemorrhoids) Qty: 30 2RF oxcarbazepine 300 mg tablet 300 mg PO BID Print Language: Kiswahili
--- NOTE | 2023-12-11 07:09 | ECG_ITS ---
Test Reason : SYNCOPE Blood Pressure : / mmHG Vent. Rate : 065 BPM Atrial Rate : 065 BPM P-R Int : 210 ms QRS Dur : 122 ms QT Int : 452 ms P-R-T Axes : 037 -39 022 degrees QTc Int : 470 ms Sinus rhythm with 1st degree A-V block Left axis deviation Left bundle branch block Abnormal ECG When compared with ECG of 07-JAN-2023 13:19, Nonspecific T wave abnormality now evident in Lateral leads Referred By: Chris Moulton Electronically Signed By:ALESHIA CID
[2023-12-11 07:52] LABS: MANUAL DIFF FLAG NO
[2023-12-11 07:55] LABS: Basophils Percent Auto 0.4 % (0-2); Eosinophils Absolute Auto 0.1 X10*3/uL (0.0-0.4); Eosinophils Percent Auto 1.6 % (0-4); Hematocrit 46.6 % (37.0-47.0); Hemoglobin 15.5 g/dl (12.0-16.0); Imm Gran Abs Auto 0.04 X10*3/uL (0.00-0.03); Imm Gran Pct Auto 0.5 % (0.0-0.4); Lymphocytes Absolute Auto 0.3 X10*3/uL (1.2-4.9); Lymphocytes Percent Auto 4.1 % (20-40); Mean Corpuscular HGB Conc 33.3 g/dl (31.0-35.0); Mean Corpuscular Hemoglobin 34.5 pg (27.0-33.0); Mean Corpuscular Volume 103.8 fL (80.0-98.0); Mean Platelet Volume 9.5 fL (9.4-12.3); Monocytes Absolute Auto 0.5 X10*3/uL (0.1-1.2); Monocytes Percent Auto 6.2 % (2-11); Neutrophils Absolute Auto 6.7 x10*3/uL (2.0-8.3); Neutrophils Percent Auto 87.2 % (45-73); Platelet Count 156 X10*3/uL (160-400); Red Blood Count 4.49 X10*6/uL (4.20-5.50); White Blood Count 7.6 X10*3/uL (4.8-10.8)
[2023-12-11 08:10] LABS: Alanine Aminotransferase 18 U/L (0-31); Albumin Level 3.8 g/dL (3.5-5.0); Alkaline Phosphatase 107 U/L (39-117); Anion Gap 12 (12-20); Aspartate Amino Transferase 20 U/L (5-31); Bilirubin Total 0.4 mg/dL (0.0-1.0); Blood Urea Nitrogen 23 mg/dL (9-16); Calcium 9.6 mg/dL (8.4-10.2); Carbon Dioxide 33 mmol/L (22-29); Chloride 103 mmol/L (96-108); Creatinine Clr Calc Pharmacy 31.5; Estimated Glomerular Filt Rate 46; Glucose Random 113 mg/dL (60-115); Potassium 4.8 mmol/L (3.3-5.1); Sodium 143 mmol/L (135-145); Total Protein 7.5 g/dL (6.5-8.0)
[2023-12-11 08:17] LABS: Troponin-I High Sensitivity 5.5 ng/L (<3.5-17.0)
[2023-12-11 08:29] LABS: Influenza A PCR NEGATIVE (Negative); Influenza B PCR NEGATIVE (Negative); Resp Syncy Virus RNA Qual PCR NEGATIVE (Negative); SARS COV2 PCR INHOUSE NEGATIVE (Negative)
[2023-12-11] MEDS: cefTRIAXone sodium 1 GM in 0.9 % Sodium Chloride 50 ML IV (09:36)
[2023-12-11] MEDS: 0.9 % Sodium Chloride 1,239 ML 1239 ML IV (09:36)
[2023-12-11 09:46] LABS: B Type Natriuretic Peptide 48 pg/mL (<100)
[2023-12-11 09:52] LABS: Lactic Acid 1.1 mmol/L (0.5-2.0)
--- NOTE | 2023-12-11 10:05 | PC.NURSE ---
delay in abx d/t pt needing blood cultures/lactic/IV, RN and tech at bedside obtaining access/labs. 20G PIV L forearm - wrapped d/t pt pulling at lines. sepsis fld bolus running, medicated per SEP, pt resting quietly, vss - hypoxia noted on RA improved w 2L O2 via NC, provider aware.
[2023-12-11] MEDS: Azithromycin 500 MG in 0.9 % Sodium Chloride 250 ML 125 MG IV (10:14)
[2023-12-11 11:41] LABS: Troponin-I High Sensitivity 4.9 ng/L (<3.5-17.0)
--- NOTE | 2023-12-11 11:48 | PC.NURSE ---
pt arrived to ED from assisted, per staff near syncope while in shower, lowered to floor, no injuries sustained. pt non verbal at baseline. noted to by hypoxic on arrival - O2 sat improved to mid 90s on 2L, pt intermittently compliant w O2 via NC, O2 sat 86-95 on RA. provider aware. other vss. 20G PIV placed L forearm. medicated per SEP. assisted staff at bedside. this RN spoke w [facility] RN re pt status and poss admission. no new orders at this time.
--- NOTE | 2023-12-11 13:31 | PHA.MEDREC ---
Pharmacy Consult ? Medication Reconciliation Pharmacy has completed the medication reconciliation. used list from [facility].
--- NOTE | 2023-12-11 13:49 | P.HPHOSP_ITS ---
History of Present Illness Date of Service: 12/11/23 Attending physician on admission: [facility] Chief Complaint: Syncope Pt is a 63-year-old female with a PMH significant for?down syndrome with moderate intellectual disability, hypothyroidism, and hx of stroke who presents to the ED from long-term?after syncopal episode. Patient primarily nonverbal at baseline, not responding to or answering questions. HPI provided from long-term staff who is at bedside. Staff apparently found patient this morning covered in feces from ?explosive diarrhea?. They took patient into the shower to wash off where she proceeded to have an episode of vomiting and then ?passed out?. Staff where there to support patient from falling and gently lowered her to the floor. Patient was then brought to the emergency room for further evaluation where she was noted to be hypoxic as low as 86% on RA. The patient is otherwise unable provide ROS, though staff note she seemed to be in her normal state of health last night. No known physical complaints such as difficulty breathing or cough. Of note, staff report one other long-term resident has been experiencing similar GI symptoms of nausea, vomiting, and diarrhea. In the ED pt was hypoxic as low as 86% on RA, vitals otherwise stable and WNL. Labs were grossly unremarkable and around baseline for patient. No leukocytosis. Stable H&H. No significant electrolyte abnormalities. Renal and hepatic function WNL. Serial troponins negative at 5.5 with repeat 4.9. Lactic acid 1.1. BNP WNL at 48. Tested negative flu, RSV, and COVID. CXR limited due to patient rotation, but found question of bronchial wall thickening at lung bases. EKG demonstrated sinus bradycardia 50 with first-degree AV block, and nonspecific intraventricular conduction block. Pt was treated with IVF, ceftriaxone, and azithromycin. Pt will be admitted to the hospital for treatment and further evaluation of syncopal episode in the setting of acute hypoxic respiratory failure likely secondary to aspiration. Review of Systems 2 Review of Systems: Unable to obtain due to patient's mentation [facility] Medical History Medicare annual wellness visit, subsequent Preoperative cardiovascular examination New onset left bundle branch block (LBBB) Lethargy COVID-19 virus infection Mental status alteration Colon cancer screening Atlantoaxial instability Cholelithiasis Mental and behavioral problem Hypercholesterolemia Vitamin D deficiency Closed right ankle fracture Patent foramen ovale Hypothyroid Megaloblastic anemia CVA (cerebral vascular accident) Cataracts, bilateral Down syndrome Jorge L's disease Family History Father No problems noted. Mother Hx of cancer of lung Surgical History Clubfoot Hx of tubal ligation Hx of cataract surgery History of colonoscopy Social History Household Members: Unknown / Unable to assess Household Members Other:: [facility]D Housing: Other Housing Other:: long-term Unable to assess alcohol history related to: Unable to respond and Unknown Alcohol intake: never Comment: patient hearing care practitioner at bed side Patient Tobacco Use Status: Never used Tobacco e-Cigarette/Vaping Use: Never Used Second Hand Smoke Exposure: No Advance Directives: No Advance Directives Information Provided: No Advance Directives Date on File: 04/27/23 Patient : No service: No Current occupational status: disabled Cognitive needs: Yes Hearing needs: No Vision needs: No Meds Allergies Allergy/AdvReac Type Severity Reaction Status Date / Time Sulfa (Sulfonamide Allergy Mild HIVES Verified 12/11/23 06:45 Antibiotics) sulfamethoxazole Allergy Mild HIVES Verified 12/11/23 06:45 [From Bactrim] amoxicillin [Amoxicillin] Allergy Unknown HIVES Verified 12/11/23 06:45 Clindamycin HCl Allergy Unknown rash Verified 12/11/23 06:45 trimethoprim [From Bactrim] Allergy Unknown HIVES Verified 12/11/23 06:45 Home Medications ?Medication ?Instructions ?Recorded ?Confirmed ?Last Taken ?Type gabapentin 300 mg capsule 300 mg PO BID 01/10/21 12/11/23 Unknown History oxcarbazepine 300 mg tablet 300 mg PO BID 06/17/22 12/11/23 Unknown History oxcarbazepine 150 mg tablet 150 mg PO BID 07/31/22 12/11/23 Unknown History (Trileptal) trazodone 50 mg tablet 50 mg PO BEDTIME PRN Sleep 09/07/23 12/11/23 Unknown History acetaminophen 650 mg/20.3 mL oral 650 mg PO Q4H PRN fever or pain 12/11/23 12/11/23 Unknown History solution cetyl and stearate 1 appl topical MOTH 12/11/23 12/11/23 Unknown History alcohol-propylen glycol-sls topical cream (Cetaphil topical cream) dextromethorphan-guaifenesin 10 10 ml PO Q4H PRN cough 12/11/23 12/11/23 Unknown History mg-100 mg/5 mL oral syrup ketoconazole 2 % topical cream 1 appl topical MOTH 12/11/23 12/11/23 Unknown History sodium fluoride 1.1 %-potassium 1 appl PO BID 12/11/23 12/11/23 Unknown History nitrate 5 % dental paste Physical Exam 2 Vital Signs and Narrative: Vital Signs: Last Vital Signs Temp 98.2 F 12/11/23 11:17 Pulse 66 12/11/23 11:17 Resp 14 12/11/23 11:17 BP 107/63 12/11/23 11:17 Pulse Ox 95 12/11/23 11:17 O2 Del Method Room Air 12/11/23 11:17 O2 Flow Rate 2 12/11/23 06:45 BMI result Body Mass Index 18.4 General: Alert but limited ability to interact due to moderate to severe down syndrome, no acute distress Resp: CTA bilaterally CVS: S1, S2, RRR GI: +BS, NT, no distention Skin: Warm, dry Neuro: Cranial nerves II-XII grossly intact bilaterally. Motor grossly intact bilaterally Extremities: No edema Results Labs 12/11/23 07:47 12/11/23 07:47 Labs: Laboratory Results - last 24 hr 12/11/23 12/11/23 12/11/23 07:47 09:36 11:13 MCV 103.8 H MCH 34.5 H MCHC 33.3 RDW 13.0 Plt Count 156 L MPV 9.5 Immature Gran % (Auto) 0.5 H Neut % (Auto) 87.2 H Lymph % (Auto) 4.1 L [place] % (Auto) 6.2 Eos % (Auto) 1.6 Baso % (Auto) 0.4 Lymph # (Auto) 0.3 L [place] # (Auto) 0.5 Eos # (Auto) 0.1 Baso # (Auto) 0.0 Abs Immat Gran (auto) 0.04 H Absolute Neuts (auto) 6.7 Absolute Nucleated RBC 0.000 Nucleated RBC % (auto) 0.0 Anion Gap 12 Estim Creat Clear Calc 31.5 Estimated GFR 46 Random Glucose 113 Lactic Acid 1.1 Calcium 9.6 D Total Bilirubin 0.4 AST 20 ALT 18 Alkaline Phosphatase 107 Troponin I High Sens 5.5 4.9 B-Natriuretic Peptide 48 Total Protein 7.5 Albumin 3.8 Influenza Type A (PCR) NEGATIVE Influenza Type B (PCR) NEGATIVE RSV RNA Qual (PCR) NEGATIVE SARS-CoV-2 RNA (RT-PCR) NEGATIVE Imaging Radiologist's Impressions: Impressions Chest X-Ray 12/11/23 08:17 IMPRESSION: Limited exam due to patient rotation. No evidence for acute acute traumatic change in the chest. Question bronchial wall thickening at the lung bases. Assessment and Plan (1) Hypoxia: Status: Acute (2) Aspiration into lower respiratory tract: Status: Acute Plan Pt is a 63-year-old female with a PMH significant for?down syndrome with moderate intellectual disability, hypothyroidism, and hx of stroke who presents to the ED from long-term?after syncopal episode. Pt will be admitted to the hospital for treatment and further evaluation of acute hypoxic respiratory failure likely secondary to aspiration in the setting syncopal episode. Acute hypoxic respiratory failure in the setting of likely aspiration Patient desatting as low as 86% on RA, witnessed to have vomited at long-term Patient with significant dysphagia secondary to down syndrome, is on pureed diet and nectar thick liquid accurate home CXR with question of bronchial wall thickening at the lung bases Patient does not meet sepsis criteria: No tachycardia, tachypnea, or leukocytosis; lactic acid WNL Patient given IVF and treated with broad-spectrum antibiotics in the ED Will treat with ceftriaxone, started 12/11/2023 Titrate supplemental O2 >92, wean as tolerated NPO diet pending speech beside swallow evaluation Monitor respiratory status Syncopal episode Unclear etiology: Patient experienced explosive diarrhea and at least 1 episode of vomiting at long-term 1 other long-term resident with similar symptoms Cardiac versus vasovagal vs orthostatic vs GI lossess Will check orthostatics GI flow coordinator on telemetry Hypothyroidism Continue levothyroxine Hx of stroke Continue aspirin Full Code Attending:?Dr. Olivo DVT Prophylaxis: Lovenox Pt will require a hospitalization of at least two nights for treatment of acute hypoxic respiratory failure in the setting of?syncopal episode. Patient will require treatment with IV antibiotics and supplemental oxygen as well as close monitoring of vitals and respiratory status. Quality Stroke Does the patient have a stroke diagnosis?: No VTE Prior VTE?: No VTE Risk Level:: Medical - moderate - high VTE Device Contraindication: Treatment Not Indicated VTE Drug Contraindication: N/A - Med Ordered
[2023-12-11] MEDS: Enoxaparin Sodium 30 MG/0.3 ML SYRINGE SUBCUT (15:49)
[2023-12-11] MEDS: 0.9 % Sodium Chloride Flush 3 ML SYRINGE IVFLUSH (15:50)
[2023-12-11 16:45] LABS: Adenovirus PCR Not Detected (Not Detect.); Bordetella parapertussis PCR Not Detected (Not Detect.); Bordetella pertussis PCR Not Detected (Not Detect.); Chlamydia pneumoniae PCR Not Detected (Not Detect.); Coronavirus 229E PCR Not Detected (Not Detect.); Coronavirus HKU1 PCR Not Detected (Not Detect.); Coronavirus NL63 PCR Not Detected (Not Detect.); Coronavirus OC43 PCR Not Detected (Not Detect.); Human metapneumovirus PCR Not Detected (Not Detect.); Influenza A PCR Not Detected (Not Detect.); Influenza B PCR Not Detected (Not Detect.); Mycoplasma pneumoniae PCR Not Detected (Not Detect.); Parainfluenza 1 PCR Not Detected (Not Detect.); Parainfluenza 2 PCR Not Detected (Not Detect.); Parainfluenza 3 PCR Not Detected (Not Detect.); Parainfluenza 4 PCR Not Detected (Not Detect.); RSV PCR Not Detected (Not Detect.); Rhino/Enterovirus PCR Not Detected (Not Detect.)
[2023-12-11 17:26] LABS: SARS-CoV-2 PCR Not Detected (Not Detect.)
--- NOTE | 2023-12-11 18:00 | MHC.SL.SWA ---
Speech Pathologist Impression: Risk of aspiration, oropharyngeal dysphagia Risk of Aspiration Due to: Reduced Cognition Dysphasia Diet Status: Start on NDD1/NTL Liquid Consistency and Strategies for Safe Swallow: Liquid Intake Recommendation: [place] Thick Liquid Intake Strategies: Small Sips No Straws Solid Food Consistency: Dietary Recommendations: Pureed (NDD1) Additional Modifications to Solid Foods: Recommend UPGRADE from NPO, START on PUREED diet (NDD1) and NECTAR THICK liquids via teaspoon or very small sips by controlled cup, pills CRUSHED in PUREE. Patient will need 1:1 feeding and strict aspiration precautions. This is reportedly her baseline at her long-term. Oral Medication Intake: Crushed with Puree Please contact the pharmacy regarding appropriate crushable or liquid drug formulations that are available whenever modified delivery is recommended. Compensatory Strategies and Precautions to be Taken for Safe Swallow: Sitting Upright (90 deg) No Straw Liquids from Cup Liquids from Spoon Small Bites and Sips Alternate Liquids/Solids Rate of Ingestion Change Oral Check Avoid Specific Foods Supervision While Eating and Drinking for Safe Swallow: Total Assistance (1:1) Foods to Avoid: Mixed consistencies Swallowing Recommended Treatments: Compens. Strategy Educat. Recommendation for Speech: Inpatient Speech Therapy Comment: ECHO TECHNICIAN will continue to follow during inpatient stay Frequency/Duration: PRN M-F Date Range for Service Req: Timeline to reassess: Vehicle Detailer Clinican/Clinical Fellow: No Supervisory Statement: I have reviewed and agree with the student/clinical fellow's documentation: N/A Speech Language Pathologist: Mague Peralta M.A., [facility]-ECHO TECHNICIAN
--- NOTE | 2023-12-11 19:20 | PC.NURSE ---
This RN assumed pt care @ 1900. Pt resting in bed watching tv. Pt alert, calm and, cooperative, no signs of distress. Sitter at bedside. Plan of care ongoing.
--- NOTE | 2023-12-11 20:51 | PC.NURSE ---
Pt transferred into hospital bed for comfort. longterm sitter with pt. Plan of care ongoing
[2023-12-11] MEDS: Gabapentin 300 MG CAPSULE PO (21:44)
[2023-12-11] MEDS: OXcarbazepine 300 MG TABLET PO (21:44)
[2023-12-11] MEDS: OXcarbazepine 150 MG TABLET PO (21:45)
[2023-12-11] MEDS: Sennosides/Docusate Sodium TABLET 1 TAB PO (21:45)
--- NOTE | 2023-12-11 21:53 | PC.NURSE ---
Pt medicated per sep. Grp home staff remains at bedside. Plan of care ongoing.
[2023-12-12] VITALS (7 sets, daily range): BP systolic 99–139; BP diastolic 55–87; PULSE 57–67; RESP 20; TEMP 36.1–36.7; O2SAT 91–96; BMI 16.9
[2023-12-12] MEDS: 0.9 % Sodium Chloride Flush 3 ML SYRINGE IVFLUSH ×4 (01:30→20:27)
[2023-12-12] MEDS: Levothyroxine Sodium 112 MCG, Levothyroxine Sodium 25 MCG 137 MCG PO (05:33)
[2023-12-12] MEDS: Aspirin 81 MG TAB.CHEW PO (09:01)
[2023-12-12] MEDS: Gabapentin 300 MG CAPSULE PO ×2 (09:01→20:27)
[2023-12-12] MEDS: OXcarbazepine 150 MG TABLET PO ×2 (09:01→20:27)
[2023-12-12] MEDS: OXcarbazepine 300 MG TABLET PO ×2 (09:02→20:27)
[2023-12-12] MEDS: Cholecalciferol (Vitamin D3) 25 MCG TABLET PO (09:02)
[2023-12-12] MEDS: Enoxaparin Sodium 30 MG/0.3 ML SYRINGE SUBCUT (15:34)
--- NOTE | 2023-12-12 16:09 | P.PNIM_ITS ---
Subjective Subjective Date of Service: 12/12/23 Interval History: f/u synocpe, aspiration doing well, no hypoxia, no arrythmia noted Physical Exam 2 Vital Signs: Vital Signs: Last Vital Signs Temp 98.0 F 12/12/23 15:48 Pulse 67 12/12/23 15:48 Resp 20 12/12/23 15:48 BP 139/87 12/12/23 15:48 Pulse Ox 94 12/12/23 15:48 O2 Del Method Room Air 12/12/23 15:48 O2 Flow Rate 2 12/11/23 06:45 BMI result Body Mass Index 16.9 Const: Other: General:alert, not verbalizing Resp: CTA bilateral CVS: S1,S2,RRR GI: +BS, NT, no distention Skin: No rash Neuro: motor grossly intact Psych: appropriate affect Objective Data Active Medications Acetaminophen (Acetaminophen Oral Liquid 650 Mg/20.3 Ml Solution) 650 mg PO Q4H PRN PRN Reason: fever or pain Aspirin (Aspirin 81 Mg Tab.Chew) 81 mg PO DAILY [facility] Last Admin: 12/12/23 09:01 Dose: 81 mg Documented By: REID Docusate Sodium (Docusate Sodium 100 Mg Capsule) 100 mg PO DAILY PRN PRN Reason: Constipation Enoxaparin Sodium (Enoxaparin Sodium 30 Mg/0.3 Ml Syringe) 30 mg SUBCUT Q24H [facility] Last Admin: 12/12/23 15:34 Dose: 30 mg Documented By: REID Fluticasone Propionate (Fluticasone Propionate Nasal 16 Gm [place]) 1 spray NOSTRIL-B DAILY [facility] Last Admin: 12/12/23 10:31 Dose: Not Given Documented By: REID Non-Admin Reason: Med Not Available Gabapentin (Gabapentin 300 Mg Capsule) 300 mg PO BID [facility] Last Admin: 12/12/23 09:01 Dose: 300 mg Documented By: REID Guaifenesin/Dextromethorphan (Guaifenesin Dm 100/10/5 Ml 5 Ml Syrup) 10 ml PO Q4H PRN PRN Reason: cough Ceftriaxone Sodium 1 gm/ (Sodium Chloride) 50 mls @ 100 mls/hr IV Q24H [facility] Levothyroxine Sodium 112 mcg/ (Levothyroxine Sodium 25 mcg) 137 mcg PO DAILY@0600 [facility] Last Admin: 12/12/23 05:33 Dose: 137 mcg Documented By: MIKEY Lorazepam (Lorazepam 1 Mg Tablet) 1 mg PO DAILY PRN PRN Reason: Anxiety Ondansetron HCl (Ondansetron Hcl 4 Mg/2 Ml Vial) 4 mg IVPUSH Q8H PRN PRN Reason: Nausea and Vomiting Oxcarbazepine (Oxcarbazepine 300 Mg Tablet) 300 mg PO BID [facility] Last Admin: 12/12/23 09:02 Dose: 300 mg Documented By: REID Oxcarbazepine (Oxcarbazepine 150 Mg Tablet) 150 mg PO BID [facility] Last Admin: 12/12/23 09:01 Dose: 150 mg Documented By: REID Senna/Docusate Sodium (Sennosides/Docusate Sodium Tablet) 1 tab PO BEDTIME [facility] Last Admin: 12/11/23 21:45 Dose: 1 tab Documented By: COLLEEN Sodium Chloride (0.9 % Sodium Chloride Flush 3 Ml Syringe) 3 ml IVFLUSH QSHIFT [facility] Last Admin: 12/12/23 15:34 Dose: 3 ml Documented By: REID Trazodone HCl (Trazodone Hcl 50 Mg Tablet) 50 mg PO BEDTIME PRN PRN Reason: Sleep Vitamin D (Cholecalciferol (Vitamin D3) 25 Mcg Tablet) 25 mcg PO DAILY [facility] Last Admin: 12/12/23 09:02 Dose: 25 mcg Documented By: REID Labs 12/11/23 07:47 12/11/23 07:47 Labs: Laboratory Results - last 24 hr 12/11/23 14:21 Respiratory Panel Ca See Note Adenovirus (Rapid PCR) Not Detected B.pert (TEM-PCR) Not Detected B.parapertussis DNA PCR Not Detected C. pneumoniae DNA (PCR) Not Detected Coronavirus OC43 (PCR) Not Detected Coronavirus HKU1 (PCR) Not Detected Coronavirus 229E (PCR) Not Detected Coronavirus NL63 (PCR) Not Detected Human Metapneumovir PCR Not Detected Influenza A (RT-PCR) Not Detected Influenza B (RT-PCR) Not Detected M. pneumoniae (PCR) Not Detected Parainfluenza 1 (PCR) Not Detected Parainfluenza 2 (PCR) Not Detected Parainfluenza 3 (PCR) Not Detected Parainfluenza 4 (PCR) Not Detected RSV (PCR) Not Detected Entero/Rhino (PCR) Not Detected SARS-CoV-2 RNA (RT-PCR) Not Detected Microbiology Microbiology Results: Microbiology 12/11/23 09:40 Blood Culture - Preliminary Blood - Venous No growth after 24 hours. 12/11/23 09:36 Blood Culture - Preliminary Blood - Venous No growth after 24 hours. Assessment and Plan (1) Aspiration into lower respiratory tract: Status: Acute (2) Hypoxia: Status: Acute Plan Pt is a 63-year-old female with a PMH significant for?down syndrome with moderate intellectual disability, hypothyroidism, and hx of stroke who presents to the ED from snf?after syncopal episode. Pt will be admitted to the hospital for treatment and further evaluation of acute hypoxic respiratory failure likely secondary to aspiration in the setting syncopal episode. Acute hypoxic respiratory failure in the setting of likely aspiration Patient desatting as low as 86% on RA, witnessed to have vomited at snf Patient with significant dysphagia secondary to down syndrome, is on pureed diet and nectar thick liquid accurate home CXR with question of bronchial wall thickening at the lung bases Patient did not meet sepsis criteria: No tachycardia, tachypnea, or leukocytosis; lactic acid WNL Patient given IVF and treated with broad-spectrum antibiotics in the ED Will treat with ceftriaxone, started 12/11/2023 Titrate supplemental O2 >92, wean as tolerated per speech recommendation Syncopal episode Unclear etiology: Patient experienced explosive diarrhea and at least 1 episode of vomiting at snf 1 other snf resident with similar symptoms Cardiac versus vasovagal vs orthostatic vs GI lossess no arrythmia noted Monitor on telemetry Hypothyroidism Continue levothyroxine Hx of stroke Continue aspirin Full Code lovenox for dvt need for inpatient: syncope, aspiration pna Discharge tomorrow Quality Stroke Does the patient have a stroke diagnosis?: No VTE Prior VTE?: No VTE Risk Level:: Medical - moderate - high VTE Device Contraindication: Treatment Not Indicated VTE Drug Contraindication: N/A - Med Ordered
[2023-12-12] MEDS: traZODone HCL 50 MG TABLET PO (20:27)
[2023-12-12] MEDS: cefTRIAXone sodium 1 GM in 0.9 % Sodium Chloride 50 ML IV (20:34)
[2023-12-13] VITALS (7 sets, daily range): BP systolic 91–104; BP diastolic 50–64; PULSE 50–65; RESP 16–20; TEMP 36.1–36.7; O2SAT 91–96
[2023-12-13] MEDS: Aspirin 81 MG TAB.CHEW PO (09:26)
[2023-12-13] MEDS: OXcarbazepine 300 MG TABLET PO ×2 (09:26→20:47)
[2023-12-13] MEDS: Cholecalciferol (Vitamin D3) 25 MCG TABLET PO (09:26)
[2023-12-13] MEDS: OXcarbazepine 150 MG TABLET PO ×2 (09:26→20:47)
[2023-12-13] MEDS: 0.9 % Sodium Chloride Flush 3 ML SYRINGE IVFLUSH ×3 (09:26→20:47)
[2023-12-13] MEDS: Gabapentin 300 MG CAPSULE PO ×2 (09:26→20:47)
[2023-12-13] MEDS: Fluticasone Propionate Nasal 16 GM SPRAY 1 SPRAY NOSTRIL-B (09:31)
--- NOTE | 2023-12-13 10:11 | MHC.CM.PN ---
Addendum entered by Elizabeth Henderson 12/13/23 10:21: KAMAR SPOKE TO PTS SISTER/GUARDIAN, THIERRY LOPEZ [phone] MEDICARE RIGHTS DELIVERED COPY EMAILED TO HER AT [email or web address] THIERRY IS AWARE THE CURRENT PLAN IS FOR PT TO DC HOME TOMORROW AND THAT SHE WILL BE CONTACTED ONCE CONFIRMED Original Note: KAMAR SPOKE TO [facility] HOUSING QUALITY STANDARD INSPECTOR, ERLIN [phone] SHE REPORTS THE PT IS INDEPENDENT WITH AMBULATION, ALTHOUGH REQUIRES SOME SUPERVISION SHE IS A FALL RISK SHE SAYS THE PT ENJOYS FOLDING LAUNDRY WHEN SHE IS BORED PTS MEDS ARE BUBBLE PACKED, THEY DO NOT HAVE A NURSE ON DUTY DAILY IN THE THEY USE [facility] ON [facility] IN [place] ERLIN WILL FAX PTS MED ORDER FORMS TO CM TODAY FOR MD TO SIGN NEW MEDS SHOULD BE WRITTEN IN ERLIN IS AWARE PT WILL DC TOMORROW, SHE WILL TRANSPORT
--- NOTE | 2023-12-13 10:29 | HO.PM.IMPN ---
Subjective Subjective Date of Service: 12/13/23 Interval History: f/u on aspiration eventk, syncope interval history; no new issues comfortable, with no difficulty breathing Physical Exam Vital Signs: Vital Signs: Last Vital Signs Temp 97.2 F 12/13/23 07:57 Pulse 50 12/13/23 07:57 Resp 19 12/13/23 07:57 BP 92/64 12/13/23 07:57 Pulse Ox 93 12/13/23 07:57 O2 Del Method Room Air 12/13/23 07:57 O2 Flow Rate 2 12/11/23 06:45 BMI result Body Mass Index 16.9 Const: Other: General:alert, not verbalizing Resp: CTA bilateral CVS: S1,S2,RRR GI: +BS, NT, no distention Skin: No rash Neuro: motor grossly intact Psych: appropriate affect Objective Data Active Medications Acetaminophen (Acetaminophen Oral Liquid 650 Mg/20.3 Ml Solution) 650 mg PO Q4H PRN PRN Reason: fever or pain Aspirin (Aspirin 81 Mg Tab.Chew) 81 mg PO DAILY [facility] Last Admin: 12/13/23 09:26 Dose: 81 mg Documented By: REID Docusate Sodium (Docusate Sodium 100 Mg Capsule) 100 mg PO DAILY PRN PRN Reason: Constipation Enoxaparin Sodium (Enoxaparin Sodium 30 Mg/0.3 Ml Syringe) 30 mg SUBCUT Q24H [facility] Last Admin: 12/12/23 15:34 Dose: 30 mg Documented By: REID Fluticasone Propionate (Fluticasone Propionate Nasal 16 Gm [place]) 1 spray NOSTRIL-B DAILY [facility] Last Admin: 12/13/23 09:31 Dose: 1 spray Documented By: REID Gabapentin (Gabapentin 300 Mg Capsule) 300 mg PO BID [facility] Last Admin: 12/13/23 09:26 Dose: 300 mg Documented By: REID Guaifenesin/Dextromethorphan (Guaifenesin Dm 100/10/5 Ml 5 Ml Syrup) 10 ml PO Q4H PRN PRN Reason: cough Ceftriaxone Sodium 1 gm/ (Sodium Chloride) 50 mls @ 100 mls/hr IV Q24H [facility] Last Infusion: 12/12/23 21:04 Dose: Infused Documented By: MIKEY Levothyroxine Sodium 112 mcg/ (Levothyroxine Sodium 25 mcg) 137 mcg PO DAILY@0600 [facility] Last Admin: 12/13/23 06:00 Dose: Not Given Documented By: MIKEY Non-Admin Reason: Patient Asleep Lorazepam (Lorazepam 1 Mg Tablet) 1 mg PO DAILY PRN PRN Reason: Anxiety Ondansetron HCl (Ondansetron Hcl 4 Mg/2 Ml Vial) 4 mg IVPUSH Q8H PRN PRN Reason: Nausea and Vomiting Oxcarbazepine (Oxcarbazepine 300 Mg Tablet) 300 mg PO BID [facility] Last Admin: 12/13/23 09:26 Dose: 300 mg Documented By: REID Oxcarbazepine (Oxcarbazepine 150 Mg Tablet) 150 mg PO BID [facility] Last Admin: 12/13/23 09:26 Dose: 150 mg Documented By: REID Senna/Docusate Sodium (Sennosides/Docusate Sodium Tablet) 1 tab PO BEDTIME [facility] Last Admin: 12/12/23 21:27 Dose: Not Given Documented By: MIKEY Non-Admin Reason: Patient Condition Contraindication Sodium Chloride (0.9 % Sodium Chloride Flush 3 Ml Syringe) 3 ml IVFLUSH QSHIFT [facility] Last Admin: 12/13/23 09:26 Dose: 3 ml Documented By: REID Trazodone HCl (Trazodone Hcl 50 Mg Tablet) 50 mg PO BEDTIME PRN PRN Reason: Sleep Last Admin: 12/12/23 20:27 Dose: 50 mg Documented By: MIKEY Vitamin D (Cholecalciferol (Vitamin D3) 25 Mcg Tablet) 25 mcg PO DAILY [facility] Last Admin: 12/13/23 09:26 Dose: 25 mcg Documented By: REID Labs 12/11/23 07:47 12/11/23 07:47 Microbiology Microbiology Results: Microbiology 12/11/23 09:40 Blood Culture - Preliminary Blood - Venous No growth after 24 hours. 12/11/23 09:36 Blood Culture - Preliminary Blood - Venous No growth after 24 hours. Assessment and Plan (1) Aspiration into lower respiratory tract: Status: Acute (2) Hypoxia: Status: Acute Plan 63-year-old female with a PMH significant for?down syndrome with moderate intellectual disability, hypothyroidism, and hx of stroke who presents to the ED from senior care?after syncopal episode. Pt will be admitted to the hospital for treatment and further evaluation of acute hypoxic respiratory failure likely secondary to aspiration in the setting syncopal episode. Acute hypoxic respiratory failure in the setting of likely aspiration--hypoxia resolved. suspected aspiration--no symptoms of PNA at this time. Continue Abx, change to Ceftin for total of 7 days Syncopal episode Unclear etiology: Patient experienced explosive diarrhea and at least 1 episode of vomiting at senior care 1 other senior care resident with similar symptoms likely vasovagal episode, no arrythmia noted on tele. Doesn't appear that further testing indicated at this time Hypothyroidism Continue levothyroxine Hx of stroke Continue aspirin Full Code lovenox for dvt need for inpatient: syncope, aspiration pna on iv ab Discharge tomorrow Quality Stroke Does the patient have a stroke diagnosis?: No VTE Prior VTE?: No VTE Risk Level:: Medical - moderate - high VTE Device Contraindication: Treatment Not Indicated VTE Drug Contraindication: N/A - Med Ordered
[2023-12-13] MEDS: Enoxaparin Sodium 30 MG/0.3 ML SYRINGE SUBCUT (15:28)
[2023-12-13] MEDS: Sennosides/Docusate Sodium TABLET 1 TAB PO (20:47)
[2023-12-13] MEDS: cefTRIAXone sodium 1 GM in 0.9 % Sodium Chloride 50 ML IV (20:49)
[2023-12-14 03:46] VITALS: BP 84/56; PULSE 50; RESP 16; TEMP 36; O2SAT 94
[2023-12-14] MEDS: 0.9 % Sodium Chloride 1,000 ML 999 ML IV (03:51)
[2023-12-14 05:08] VITALS: BP 113/61; PULSE 54
[2023-12-14] MEDS: Levothyroxine Sodium 112 MCG, Levothyroxine Sodium 25 MCG 137 MCG PO (05:27)
[2023-12-14 07:38] VITALS: BP 94/58; PULSE 51; RESP 12; TEMP 36; O2SAT 97
[2023-12-14 08:29] VITALS: BP 102/69; PULSE 51
[2023-12-14] MEDS: Cholecalciferol (Vitamin D3) 25 MCG TABLET PO (08:44)
[2023-12-14] MEDS: OXcarbazepine 150 MG TABLET PO (08:44)
[2023-12-14] MEDS: Gabapentin 300 MG CAPSULE PO (08:44)
[2023-12-14] MEDS: OXcarbazepine 300 MG TABLET PO (08:44)
[2023-12-14] MEDS: Aspirin 81 MG TAB.CHEW PO (08:44)
[2023-12-14] MEDS: 0.9 % Sodium Chloride Flush 3 ML SYRINGE IVFLUSH (08:45)
--- NOTE | 2023-12-14 10:25 | P.DS_ITS ---
DS: Providers Provider Date of Service: 12/14/23 Date of admission: 12/11/23 15:23 Primary care physician: Alfredo Walls MD DS: Diagnosis Discharge Diagnosis (1) Aspiration into lower respiratory tract: Status: Acute (2) Hypoxia: Status: Acute DS: Summary Hospital Course Hospital Course: admission hpi Chief Complaint: Syncope Pt is a 63-year-old female with a PMH significant for?down syndrome with moderate intellectual disability, hypothyroidism, and hx of stroke who [facility]. Patient primarily nonverbal at baseline, not responding to or answering questions. HPI provided from [facility]iary staff who is at bedside. Staff apparently found patient this morning covered in feces from ?explosive diarrhea?. They took patient into the shower to wash off where she proceeded to have an episode of vomiting and then ?passed out?. Staff where there to support patient from falling and gently lowered her to the floor. Patient was then brought to the emergency room for further evaluation where she was noted to be hypoxic as low as 86% on RA. The patient is otherwise unable provide ROS, though staff note she seemed to be in her normal state of health last night. No known physical complaints such as difficulty breathing or cough. Of note, staff report one other [facility]iary resident has been experiencing similar GI symptoms of nausea, vomiting, and diarrhea. In the ED pt was hypoxic as low as 86% on RA, vitals otherwise stable and WNL. Labs were grossly unremarkable and around baseline for patient. No leukocytosis. Stable H&H. No significant electrolyte abnormalities. Renal and hepatic function WNL. Serial troponins negative at 5.5 with repeat 4.9. Lactic acid 1.1. BNP WNL at 48. Tested negative flu, RSV, and COVID. CXR limited due to patient rotation, but found question of bronchial wall thickening at lung bases. EKG demonstrated sinus bradycardia 50 with first-degree AV block, and nonspecific intraventricular conduction block. Pt was treated with IVF, ceftriaxone, and azithromycin. Pt will be admitted to the hospital for treatment and further evaluation of syncopal episode in the setting of acute hypoxic respiratory failure likely secondary to aspiration. hospital course: The patient presented after a syncopal episode preceded by explosive diarrhea and vomiting. She lost consciousness and was safely lowered to the floor. Subsequently, she was noted to be hypoxic. A chest X-ray revealed bronchial wall thickening without discrete infiltrates. She was empirically started on intravenous antibiotics and admitted for observation. Since admission, she has had no further hypoxia or fever, and her white blood cell count has remained normal. Cardiac telemetry showed no arrhythmias contributing to the syncopal event. It is likely that the syncopal episode was vasovagal in nature, leading to aspiration. She has been receiving Ceftriaxone for 3 days, CXR finding are more suggestive of bronchitis rather pneumonia and therefore will add Doxycyline for possible bronchitis. The patient has returned to her baseline status, including normal eating and drinking. She can resume her prior medications and activities. Time Attestation Discharge Coordination Time (in mins): 35 Quality: Safe Use of Opioids Does Pt have an Active Cancer Diagnosis on the Problem List?: No Quality: Stroke Does the patient have a stroke diagnosis?: No Physical Exam Vital Signs: Vital Signs: Last Vital Signs Temp 96.8 F 12/14/23 07:38 Pulse 51 12/14/23 08:29 Resp 12 12/14/23 07:38 BP 102/69 12/14/23 08:29 Pulse Ox 97 12/14/23 07:38 O2 Del Method Room Air 12/14/23 07:38 O2 Flow Rate 2 12/11/23 06:45 BMI result Body Mass Index 16.9 Const: Other: General:alert, not verbalizing Resp: CTA bilateral CVS: S1,S2,RRR GI: +BS, NT, no distention Skin: No rash Neuro: motor grossly intact Psych: appropriate affect DS: Data Data Completed and Pending Labs on day of discharge: Preliminary micro results at discharge 12/11/23 09:40 Blood Culture - Preliminary Blood - Venous No growth after 48 hours. 12/11/23 09:36 Blood Culture - Preliminary Blood - Venous No growth after 48 hours. Discharge Plan Discharge Anticipated Discharge Date/Time: 12/14/23 10:28 Patient Disposition: Home, Self-Care Discharge Diagnosis: Syncope, aspiration, Pneumonia Referrals: Po,Alfredo Khalil MD [Primary Care Provider] - 1 Week Discharge Medications: No Action ibuprofen 100 mg/5 mL suspension 200 mg PO Q6H PRN (Reason: pain) Qty: 120 0RF cholecalciferol (vitamin D3) 25 mcg (1,000 unit) tablet 25 mcg PO QAM Qty: 90 3RF calcium carbonate-vitamin D3 600 mg-10 mcg (400 unit) tablet 1 tab PO BID 28 Days Qty: 180 2RF aspirin 81 mg tablet,chewable 81 mg PO DAILY Qty: 90 3RF sennosides-docusate sodium [Senna Plus] 8.6-50 mg tablet 1 tab PO BEDTIME Qty: 28 11RF Thick-It Powder See Rx Instructions PO TIDWMEAL Qty: 6120 4RF Rx Instructions: Thick-It - Powder as directed Orally-Mix with food 3 times a day with food and beverages fluticasone propionate 50 mcg/actuation spray,suspension 1 spray intranasal DAILY Qty: 16 5RF lorazepam 1 mg tablet 1 mg PO DAILY PRN (Reason: Anxiety) Qty: 30 0RF Rx Instructions: and prn 30 min before appointments levothyroxine [Synthroid] 137 mcg tablet 137 mcg PO DAILY 30 Days Qty: 90 0RF ketoconazole 2 % cream 1 appl topical MOTH Cetaphil Cream 1 appl TOPICAL MOTH Rx Instructions: after showers on Thursday and sodium fluoride-pot nitrate 1.1-5 % paste 1 appl PO BID dextromethorphan-guaifenesin 10-100 mg/5 mL syrup 10 ml PO Q4H PRN (Reason: cough) acetaminophen 650 mg/20.3 mL solution 650 mg PO Q4H PRN (Reason: fever or pain) gabapentin 300 mg capsule 300 mg PO BID oxcarbazepine [Trileptal] 150 mg tablet 150 mg PO BID trazodone 50 mg tablet 50 mg PO BEDTIME PRN (Reason: Sleep) Rx Instructions: Dr. Dent hydrocortisone [Proctosol HC] 2.5 % cream with perineal applicator 1 appl MO BID PRN (Reason: hemorrhoids) Qty: 30 2RF oxcarbazepine 300 mg tablet 300 mg PO BID Discharge Orders: Discharge Order (Routine); Ordered 12/14/23 Ordered By: Salvador Olivo Diet: Advance to usual diet Activity on Discharge: As tolerated Stand Alone Forms: Patient Portal Discharge page Print Language: Divehi Care Plan Goals: recovery from pneumonia, aspiration and a syncopal episode Health Concerns: aspiration, pneumonia, and syncope Plan of Treatment: take Cefuroxime (Ceftin) 500 mg twice daily for 3 more days follow up with PCP Assessment: see the above
--- NOTE | 2023-12-14 11:13 | MHC.CM.PN ---
PT WILL DC BACK TO [facility] TODAY COLLISION WORKER, ERLIN, BEDSIDE MED ORDER FORMS SIGNED BY AND GIVEN TO ERLIN WHO WILL PROVIDE PT TRANSPORT CM CALLED PTS GUARDIAN, PAT, SHE IS ALSO AWARE OF DC/TIME/PLAN
--- NOTE | 2023-12-14 11:29 | MHC.SLORD ---
Speech Language Pathology Order Status: PUBLIC RELATIONS ANALYST visited patient at bedside this morning. Patient was awake and alert, sitting up in bed, and accompanied by a staff member from her halfway. TABLEAU ARCHITECT was present as well and attempting to get patient's vitals with patient uncooperative with care and refusing. Patient also refused PO trials, despite encouragement from PUBLIC RELATIONS ANALYST and halfway staff. Per staff, patient has been tolerating pureed diet with nectar thick liquids, which was recommended to her after she had an MBSS with [facility] a couple months ago. Patient is being discharged today. Recommend continue on modified diet with 1:1 feeding and strict aspiration precautions.
[2023-12-14] MEDS: Doxycycline Monohydrate 100 MG CAPSULE PO (11:35)
--- NOTE | 2023-12-14 12:33 | P.CDIM_ITS ---
PROVIDER RESPONSE TEXT: To clarify, the appropriate diagnosis supported by the clinical indicators: Underweight QUERY TEXT: PHYSICIAN'S DOCUMENTATION REQUEST Date of Query: 12/14/2023 08:29 AM EDT Patient Name: Whitney Lucero Admit Date: 12/11/2023 Dear Salvador Olivo, A review of the medical record indicates additional documentation may be needed. Please review below and update the documentation accordingly. Clinical Indicators: Height: 4ft 11in Weight: 38kg BMI: 16.9 Other Clinical Notes Supporting Significance of the BMI: Nursing notes Height and Weight: Underweight with BMI 16.9. If possible, please provide an associated diagnosis related to the abnormal BMI, such as: Underweight Weight loss Cachexia Anorexia Other (explain) Clinically unable to determine (explain) Thank you, Colleen Beckford, CCS, CDIS Use of terms such as suspected, likely, concern for, or probable (associated with a specific diagnosi s that is being evaluated, monitored, or treated as if it exists) are acceptable and can be coded in the inpatient se tting, when documented at the time of discharge. Please use your independent medical judgment in providing your response. THIS QUERY IS PART OF THE PERMANENT MEDICAL RECORD
== END 2023-12-14 11:43 | disposition home or self-care (01) | DRG 202 ==
LOC: HO.ED 11:11 → HO.EDOVER 15:25 → HO.IMC 22:47 → HO.S3 12-13 18:15
PROVIDERS: Admitting Provider Student in an Organized Health Care Education/Training Program; Emergency Provider Emergency Medicine Emergency Medical Services; PCP Internal Medicine; Visit Provider Internal Medicine
DX: J40 Bronchitis, not specified as acute or chronic (principal); J96.01 Acute respiratory failure with hypoxia; Q21.12 Patent foramen ovale; Z68.1 Body mass index [BMI] 19.9 or less, adult; Q90.9 Down syndrome, unspecified; R55 Syncope and collapse; E06.3 Autoimmune thyroiditis; R63.6 Underweight; F71 Moderate intellectual disabilities; Z20.822 Contact with and (suspected) exposure to COVID-19; Z86.73 Personal history of transient ischemic attack (TIA), and cerebral infarction without residual deficits; Z79.51 Long term (current) use of inhaled steroids; Z79.82 Long term (current) use of aspirin; Z79.890 Hormone replacement therapy; Z79.899 Other long term (current) drug therapy
CPT/HCPCS: 0241U; 36415; 71045; 80053; 83605; 83880; 84484; 85025; 87040; 87633; 92610; 93005; 99285; J0456; J0696; J1650

== ENCOUNTER → 2023-12-11 07:09 | Outpatient (BNV) | payer MEDICARE, MEDICAID, SELFPAY | PROVIDERS: Admitting Provider Student in an Organized Health Care Education/Training Program; Emergency Provider Emergency Medicine Emergency Medical Services; PCP Internal Medicine; Visit Provider Internal Medicine | DX: R55 Syncope and collapse (principal) | CPT/HCPCS: 93010 ==

== ENCOUNTER → 2023-12-11 15:23 | Outpatient (BNV) | payer MEDICARE, MEDICAID, SELFPAY | PROVIDERS: Admitting Provider Student in an Organized Health Care Education/Training Program; Emergency Provider Emergency Medicine Emergency Medical Services; PCP Internal Medicine; Visit Provider Student in an Organized Health Care Education/Training Program | DX: R55 Syncope and collapse (principal); J96.01 Acute respiratory failure with hypoxia; E03.9 Hypothyroidism, unspecified | CPT/HCPCS: 99223; 99232; 99239 ==

== ENCOUNTER 2023-12-15 13:21 | Outpatient (AMB) | payer MEDICARE, MEDICAID, SELFPAY ==
[2023-12-15 13:25] VITALS: BP 110/58; PULSE 59; O2SAT 96; BMI 18.0
--- NOTE | 2023-12-15 13:25 | A.OFFPC_ITS ---
Vital Signs 12/15/23 13:25 Height 4 ft 11 in Weight 89 lb BMI 18.0 BP 110/58 L Blood Pressure Location Lt brachial Position Sitting Pulse 59 Pulse Source Pulse Oximeter Pulse Oximetry (%) 96 Oxygen Delivery Method Room Air Intake Visit Reasons: anemia Intake Note: Looking to decrease ativan medication. Patient is refusing to drink anything. Allergies Sulfa (Sulfonamide Antibiotics) Allergy (Mild, Verified 12/15/23 13:26) HIVES sulfamethoxazole [From Bactrim] Allergy (Mild, Verified 12/15/23 13:26) HIVES amoxicillin [Amoxicillin] Allergy (Unknown, Verified 12/15/23 13:26) HIVES Clindamycin HCl Allergy (Unknown, Verified 12/15/23 13:26) rash trimethoprim [From Bactrim] Allergy (Unknown, Verified 12/15/23 13:26) HIVES Tobacco use date assessed: 09/29/23 Dental Screening Dental Screen Date: 12/15/23 Did you have a dental visit in the last 12 months?: Yes Did you have a dental problem in the last 6 months where you did not have access to dental care?: No Was dental information given to patient?: Patient has dentist HPI anemia HPI Details 63-year-old female with down syndrome desouza ving hypothyroidism hypercholesterolemia coming in for follow-up. Last seen in 09/23/2023 review of the notes had a recent hospitalization for aspiration. Had a syncopal episode having had diarrhea as they wash her she started vomiting and passed out. In the ER noted to have hypoxia treated for aspiration with doxycycline. PAtent , had episode of urinary incotinence, and poor apetitte, presently , does not wants anybody touching her but [facility] Medical History Medicare annual wellness visit, subsequent Preoperative cardiovascular examination New onset left bundle branch block (LBBB) Lethargy COVID-19 virus infection Mental status alteration Colon cancer screening Atlantoaxial instability Cholelithiasis Mental and behavioral problem Hypercholesterolemia Vitamin D deficiency Closed right ankle fracture Patent foramen ovale Hypothyroid Megaloblastic anemia CVA (cerebral vascular accident) Cataracts, bilateral Down syndrome Jorge L's disease Surgical History Clubfoot Hx of tubal ligation Hx of cataract surgery History of colonoscopy Family History Father No problems noted. Mother Hx of cancer of lung Social History Household Members: Other Household Members Other:: [facility] Housing: Assisted Living Facility Housing Other:: half-way Do you presently have visiting nurse or other home services: No Unable to assess alcohol history related to: Unable to respond and Unknown Alcohol intake: never Comment: half-way staff at bedside Patient Tobacco Use Status: Never used Tobacco e-Cigarette/Vaping Use: Never Used Second Hand Smoke Exposure: No Advance Directives Date on File: 04/27/23 service: No Current occupational status: disabled Cognitive needs: Yes Hearing needs: No Vision needs: No Questionnaire PHQ-9 Over the last 2 weeks, how often have you been bothered by any of the following problems? 3. Trouble falling or staying asleep, or sleeping too much: more than half the days 5. Poor appetite or overeating: not at all 6. Feeling bad about yourself - or that you are a failure or have let yourself or your family down: not at all 7. Trouble concentrating on things, such as reading the newspaper or watching television: nearly every day 8. Moving or speaking so slowly that other people could have noticed. Or the opposite - being so fidgety or restless that you have been moving around a lot more than usual: not at all 9. Thoughts that you would be better off or of hurting yourself in some way: not at all Depression Screening Interpretation: Negative Depression Screening Done: Yes Source: Developed by Drs. Monico Cuellar, Parvez Murdock and colleagues, with an educational tesha from [employer]. Thrive Questionnaire Date Thrive assessed: 12/13/23 AUDIT C Alcohol Use Questionnaire (AUDIT-C) 1. How often do you have a drink containing alcohol?: Never Total Score: 0 NEHA-7 AMB Questionnaire NEHA-7 Date NEHA - 7 assessed: 09/07/23 Source: Developed by Drs. Monico Cuellar, Parvez Murdock and colleagues, with an educational tesha from [employer]. Physical exam (Primary Care) Vital Signs: Last Vital Signs Pulse 59 12/15/23 13:25 BP 110/58 L 12/15/23 13:25 Pulse Ox 96 12/15/23 13:25 Oxygen Delivery Method Room Air 12/15/23 13:25 BMI result Body Mass Index 18.0 Tobacco/Smoking Status: Tobacco use Status Tobacco use date assessed 09/29/23 12/15/23 13:35 Patient Tobacco Use Status Never used Tobacco 12/15/23 13:35 e-Cigarette/Vaping Use Never Used 12/15/23 13:35 Depression Screening Interpretation: Negative Thrive Assessment: Date of Thrive Assessment Date Thrive assessed 12/13/23 12/15/23 13:35 Const General: alert; No acute distress Eyes Conjunctivae: conjunctivae normal Resp Auscultation: clear to auscultation bilaterally Cardio Rate: regular rate Rhythm: regular rhythm GI Inspection: Yes normal to inspection Extrem General: Yes normal to inspection and No edema Assessment and Plan Assessment & Plan (1) Aspiration into lower respiratory tract: Code(s): T17.800A - Unspecified foreign body in other parts of respiratory tract causing asphyxiation, initial encounter Plan: continue with Antibiotics (2) Gastroenteritis: Code(s): K52.9 - Noninfective gastroenteritis and colitis, unspecified Plan: keep well hydrated (3) Hypothyroid: Comment: Myxedema March 2019 Code(s): E03.9 - Hypothyroidism, unspecified Qualifiers: Hypothyroidism type: unspecified Qualified Code(s): E03.9 - Hypothyroidism, unspecified Plan: continue with meds (4) Down syndrome: Code(s): Q90.9 - Down syndrome, unspecified (5) Urinary incontinence: Code(s): R32 - Unspecified urinary incontinence Orders: Orders UA CC w/rflx Micro + Cult Today R30.0 - Dysuria, R32 - Unspecified urinary incontinence Coding Level of Care Code Est Pt Level 4 (18486) Diagnoses Aspiration into lower respiratory tract T17.800A Gastroenteritis K52.9 Hypothyroidism, unspecified type E03.9 Hypothyroidism type: unspecified Down syndrome Q90.9 Urinary incontinence R32
== END 2023-12-15 14:08 | disposition home or self-care (01) ==
PROVIDERS: PCP Internal Medicine; Visit Provider Internal Medicine
DX: T17.800A Unspecified foreign body in other parts of respiratory tract causing asphyxiation, initial encounter (principal); K52.9 Noninfective gastroenteritis and colitis, unspecified; E03.9 Hypothyroidism, unspecified; Q90.9 Down syndrome, unspecified; R32 Unspecified urinary incontinence
CPT/HCPCS: 99214

== ENCOUNTER 2023-12-18 12:38 | Outpatient (REF) | payer MEDICARE, MEDICAID, SELFPAY ==
[2023-12-18 12:50] LABS: Appearance Urine Clear; Color Urine Straw; Glucose Urine UA Negative (Negative); Leukocyte Esterase Urine Trace (Negative); Nitrite Urine Negative (Negative); Specific Gravity - Urine >= 1.030 (1.005-1.025); UMIC TRIGGER UACC YES; Urine Blood Negative (Negative); Urine Ketones Negative (Negative); Urine Protein Negative (Neg-Trace)
[2023-12-18 13:36] LABS: Bacteria Urine None Seen (None Seen); Hyaline Casts Urine 0-2 /LPF (0-2); RBC Urine 0-2 /HPF (0-2); WBC Urine 0-5 /HPF (0-5)
== END 2023-12-18 12:39 | disposition home or self-care (01) ==
LOC: HO.LNP 12:38
PROVIDERS: Visit Provider Internal Medicine
DX: R30.0 Dysuria (principal); R32 Unspecified urinary incontinence
CPT/HCPCS: 81001; 81003

== ENCOUNTER 2024-01-18 16:26 | Emergency (ER) | payer MEDICARE, MEDICAID, SELFPAY ==
--- NOTE | ~2024-01-18 | CT_ITS ---
EXAMINATION: CT KNEE WITHOUT CONTRAST, LEFT CLINICAL INFORMATION: Fracture/irregularity on prior radiograph. COMPARISON: Radiograph left knee earlier today. TECHNIQUE: Contiguous axial imaging was performed of the left knee without intravenous administration of contrast. Coronal and sagittal reformats were obtained at the acquisition workstation. This CT examination was performed using dose optimization techniques as appropriate, variously including the following: *Automated exposure control *Adjustment of mA and/or kV according to patient size (this includes techniques or standardized protocols for targeted exams where dose is matched to indication/reason for exam; i.e. extremities or head) *Use of iterative reconstruction technique DLP: 194.5 mGy-cm FINDINGS: No acute fracture or subluxation. Mild tricompartmental degenerative changes with trace subcortical sclerosis and joint space narrowing, more prominent in the medial and patellofemoral compartments. Small subchondral cystic changes in the lateral femoral condyle (7:64). No aggressive appearing osseous lesions. Prominent mixed density soft tissue thickening in the anteromedial compartment of the knee for example measuring 6.4 x 2 x 7.4 cm (4:107:27). Trace joint effusion. A few foci of subcutaneous air in the medial thigh (4:3). CT/CT knee LT wo IV con IMPRESSION: 1. No acute fracture or subluxation. 2. Significant mixed density soft tissue thickening in the anteromedial compartment of the knee, possibly representing a hematoma in the setting of recent trauma. 3. Mild tricompartmental degenerative changes, more prominent in the medial and patellofemoral compartments. 4. Trace joint effusion.
--- NOTE | ~2024-01-18 | XR_ITS ---
EXAMINATION: XR KNEE, LEFT CLINICAL INFORMATION: Fall, pain/hematoma. COMPARISON: None available. TECHNIQUE: Two views of the left knee. FINDINGS: Equivocal nonspecific minimal irregularity of the lateral femoral condyle and lateral tibial plateau with adjacent soft tissue swelling. No joint effusion. No unexpected radiopaque foreign bodies. XR/XR knee LT 2V IMPRESSION: Equivocal minimal irregularity of the lateral femoral condyle and lateral tibial plateau with adjacent soft tissue swelling. Recommend correlation for point tenderness and if indicated further evaluation with a CT of the left knee without IV contrast, underlying fracture is not excluded.
[2024-01-18 16:29] VITALS: BP 110/80
[2024-01-18 16:52] VITALS: BP 91/54; PULSE 62; RESP 16; O2SAT 98; BMI 26.5
--- NOTE | 2024-01-18 17:04 | ED_ITS ---
HPI - Fall General Chief Complaint: Fall Stated Complaint: FALL, L KNEE INJ, -LOC, -HS, FROM PER EMS Time Seen by Provider: 01/18/24 16:31 Source: EMS and other ([facility] staff member) Mode of arrival: EMS Limitations: other (History obtained from care home staff member due to patient's underlying Down syndrome and inability to provide history) History of Present Illness HPI Narrative: Patient is a 63-year-old female who presents to the emergency department via EMS coming from a care home. She had a mechanical fall, according to her care home staff member; Declan. There was a commode that was set aside against a wall that was donated to the home, patient was moving this and subsequently fell landing on the bilateral hands and knees. No reported head strike or loss of consciousness. She was able to ambulate after this occurred. Staff noted bruising and swelling to the left lateral knee and she was brought for evaluation. Related Data Home Medications ?Medication ?Instructions ?Recorded ?Confirmed gabapentin 300 mg capsule 300 mg PO BID 01/10/21 12/11/23 oxcarbazepine 300 mg tablet 300 mg PO BID 06/17/22 12/11/23 oxcarbazepine 150 mg tablet 150 mg PO BID 07/31/22 12/11/23 (Trileptal) trazodone 50 mg tablet 50 mg PO BEDTIME PRN Sleep 09/07/23 12/11/23 acetaminophen 650 mg/20.3 mL oral 650 mg PO Q4H PRN fever or pain 12/11/23 12/11/23 solution cetyl and stearate 1 appl topical MOTH 12/11/23 12/11/23 alcohol-propylen glycol-sls topical cream (Cetaphil topical cream) ketoconazole 2 % topical cream 1 appl topical MOTH 12/11/23 12/11/23 sodium fluoride 1.1 %-potassium 1 appl PO BID 12/11/23 12/11/23 nitrate 5 % dental paste Previous Rx's ?Medication ?Instructions ?Recorded ibuprofen 100 mg/5 mL oral 200 mg (10 mL) PO Q6H PRN pain 03/16/23 suspension #120 mL cholecalciferol (vitamin D3) 25 25 mcg PO QAM #90 tabs 06/02/23 mcg (1,000 unit) tablet calcium carbonate 600 mg-vitamin 1 tab PO BID 28 days #180 tabs 06/14/23 D3 10 mcg (400 unit) tablet aspirin 81 mg chewable tablet 81 mg PO DAILY #90 tabs 06/30/23 sennosides 8.6 mg-docusate sodium 1 tab PO BEDTIME #28 tabs 06/30/23 50 mg tablet (Senna Plus) starch (thickening) (Thick-It oral See Rx Instructions PO TIDWMEAL 08/28/23 powder) #6,120 grams hydrocortisone 2.5 % topical cream 1 appl AL BID PRN hemorrhoids #30 09/29/23 with perineal applicator grams (Proctosol HC) fluticasone propionate 50 1 spray intranasal DAILY #16 grams 10/02/23 mcg/actuation nasal spray,suspension Synthroid 137 mcg tablet 137 mcg PO DAILY 30 days #90 tabs 12/09/23 (levothyroxine) doxycycline monohydrate 100 mg 100 mg PO Q12H #6 caps 12/14/23 capsule lorazepam 0.5 mg tablet 0.5 mg PO DAILY PRN Anxiety #7 tabs 12/18/23 dextromethorphan-guaifenesin 10 10 ml PO Q4H PRN cough #500 mL 12/24/23 mg-100 mg/5 mL oral syrup Allergies Allergy/AdvReac Type Severity Reaction Status Date / Time Sulfa (Sulfonamide Allergy Mild HIVES Verified 01/18/24 16:58 Antibiotics) sulfamethoxazole Allergy Mild HIVES Verified 01/18/24 16:58 [From Bactrim] amoxicillin [Amoxicillin] Allergy Unknown HIVES Verified 01/18/24 16:58 Clindamycin HCl Allergy Unknown rash Verified 01/18/24 16:58 trimethoprim [From Bactrim] Allergy Unknown HIVES Verified 01/18/24 16:58 Review of Systems Review of Systems: Yes all other systems are reviewed and are negative PMFSH Past Medical History Attestation statement: The following information was validated with the patient. Source: old records reviewed Medical History Medicare annual wellness visit, subsequent Preoperative cardiovascular examination New onset left bundle branch block (LBBB) Lethargy COVID-19 virus infection Mental status alteration Colon cancer screening Atlantoaxial instability Cholelithiasis Mental and behavioral problem Hypercholesterolemia Vitamin D deficiency Closed right ankle fracture Patent foramen ovale Hypothyroid Megaloblastic anemia CVA (cerebral vascular accident) Cataracts, bilateral Down syndrome Jorge L's disease Surgical History Clubfoot Hx of tubal ligation Hx of cataract surgery History of colonoscopy Family History Family History Father No problems noted. Mother Hx of cancer of lung Social History Social History Household Members: Other Household Members Other:: [facility] Housing: Assisted Living Facility Housing Other:: care home Do you presently have visiting nurse or other home services: No Unable to assess alcohol history related to: Unable to respond and Unknown Alcohol intake: never Comment: care home staff at bedside Patient Tobacco Use Status: Never used Tobacco Smoked in Last 30 Days: No e-Cigarette/Vaping Use: Never Used Second Hand Smoke Exposure: No Use of substances other than those prescribed or required for medical reasons: No Advance Directives: Yes Advance Directives on File: Yes Advance Directives Date on File: 04/27/23 Do you have a plan to hurt others: No Plan service: No Current occupational status: disabled Cognitive needs: Yes Hearing needs: No Vision needs: No Physical Exam Vital Signs: Vital Signs: Last Vital Signs Pulse 58 01/18/24 21:21 Resp 18 01/18/24 21:21 BP 123/85 01/18/24 21:21 Pulse Ox 94 01/18/24 21:21 O2 Del Method Room Air 01/18/24 21:21 BMI result Body Mass Index 26.5 Appearance: Alert.? No acute distress.?Normal affect. Eyes: Pupils equal, round and reactive to light.? ENT: Pharynx normal.?? Neck: Normal inspection.? Neck supple.?? CVS: Heart sounds normal. Normal heart rate and rhythm.? Pulses normal.?? Respiratory: No respiratory distress.? Lung sounds clear to auscultation bilaterally?? Abdomen: Soft and non-tender. Normoactive bowel sounds. ? Skin: Skin warm and dry.? Normal skin color.? Extremities: No pedal edema.? No calf ttp. Left knee with ecchymosis and hematoma, tenderness upon palpation, appears to be in pain with flexion of the knee. 2+ DP/PT pulse bilaterally. Neuro: Moves all extremities spontaneously. Sensation intact bilaterally. Ambulates with normal steady gait. Medications Administered Discontinued Medications Generic Name Dose Route Start Last Admin Trade Name Lion PRN Reason Stop Dose Admin Diphenhydramine HCl 25 mg 01/18/24 21:58 01/18/24 22:39 Diphenhydramine Hcl 50 Mg/Ml Vial IM 01/18/24 21:59 Not Given ONCE ONE Haloperidol Lactate 2.5 mg 01/18/24 21:58 01/18/24 22:39 Haloperidol Lactate 5 Mg/Ml Vial IM 01/18/24 21:59 Not Given ONCE ONE Lorazepam 1 mg 01/18/24 20:26 01/18/24 20:40 Lorazepam 2 Mg/Ml Vial IM 01/18/24 20:27 1 mg ONCE ONE Administration Medical Decision Making Medical Decision Making [facility] Narrative: Patient is a 63-year-old female with history of Down syndrome, Jorge L's thyroiditis, gallstones, patent foramen ovale, stroke who presents to the em ergency department for evaluation after a mechanical fall without reported head or loss consciousness, found to have ecchymosis and hematoma to the left knee. On examination does appear to have tenderness upon palpation, decreased flexion of the knee. The extremity is neurovascularly intact distally. XR was obtained to evaluate for fracture/dislocation there is a subtle irregularity concerning for possible fracture along the lateral tibial plateau, corresponding with point tenderness in area of ecchymosis. Radiology recommendation for evaluation with CT scan. Discussed this with home member, patient had difficulty remaining still for XR to be obtained. She typically takes lorazepam prior to doctor's appointment, trial lorazepam at this time for CT to be obtained. - CT negative for acute fracture stable for discharge back to care home, outpatient follow-up with PCP Differential Diagnosis Differential Diagnoses: The differential diagnosis associated with the presentation includes (See narrative above) Admission/Observation Consideration of admission/observation: Escalation of care including admission/observation considered Independent Interpretation I performed an independent interpretation of an: Plain X-Ray (No obvious fracture or dislocation) Radiology Impression Discussion of test interpretation with radiology: I have reviewed the radiologist's reading. Radiologist Impression: CT/CT knee LT wo IV con IMPRESSION: 1. No acute fracture or subluxation. 2. Significant mixed density soft tissue thickening in the anteromedial compartment of the knee, possibly representing a hematoma in the setting of recent trauma. 3. Mild tricompartmental degenerative changes, more prominent in the medial and patellofemoral compartments. 4. Trace joint effusion. XR/XR knee LT 2V IMPRESSION: Equivocal minimal irregularity of the lateral femoral condyle and lateral tibial plateau with adjacent soft tissue swelling. Recommend correlation for point tenderness and if indicated further evaluation with a CT of the left knee without IV contrast, underlying fracture is not excluded. Independent Historian Clinical information obtained from an independent historian. History obtained from or confirmed by: Other ([facility] staff member) External Record Review External record reviewed: Outpatient record Prescription Management I considered prescription management with: Pain Medication Discharge Plan Discharge Clinical Impression: Contusion of knee, left Qualifiers: Encounter type: initial encounter Qualified Code(s): S80.02XA - Contusion of left knee, initial encounter Patient Disposition: Home, Self-Care Instructions: Contusion in Adults (ED), R.I.C.E. Treatment (ED) Prescriptions: No Action ibuprofen 100 mg/5 mL suspension 200 mg PO Q6H PRN (Reason: pain) Qty: 120 0RF cholecalciferol (vitamin D3) 25 mcg (1,000 unit) tablet 25 mcg PO QAM Qty: 90 3RF calcium carbonate-vitamin D3 600 mg-10 mcg (400 unit) tablet 1 tab PO BID 28 Days Qty: 180 2RF aspirin 81 mg tablet,chewable 81 mg PO DAILY Qty: 90 3RF sennosides-docusate sodium [Senna Plus] 8.6-50 mg tablet 1 tab PO BEDTIME Qty: 28 11RF Thick-It Powder See Rx Instructions PO TIDWMEAL Qty: 6120 4RF Rx Instructions: Thick-It - Powder as directed Orally-Mix with food 3 times a day with food and beverages fluticasone propionate 50 mcg/actuation spray,suspension 1 spray intranasal DAILY Qty: 16 5RF levothyroxine [Synthroid] 137 mcg tablet 137 mcg PO DAILY 30 Days Qty: 90 0RF lorazepam 0.5 mg tablet 0.5 mg PO DAILY PRN (Reason: Anxiety) Qty: 7 0RF Rx Instructions: and prn 30 min before appointments dextromethorphan-guaifenesin 10-100 mg/5 mL syrup 10 ml PO Q4H PRN (Reason: cough) Qty: 500 0RF ketoconazole 2 % cream 1 appl topical MOTH Cetaphil Cream 1 appl TOPICAL MOTH Rx Instructions: after showers on Thursday and sodium fluoride-pot nitrate 1.1-5 % paste 1 appl PO BID acetaminophen 650 mg/20.3 mL solution 650 mg PO Q4H PRN (Reason: fever or pain) doxycycline monohydrate 100 mg Capsule 100 mg PO Q12H Qty: 6 0RF gabapentin 300 mg capsule 300 mg PO BID oxcarbazepine [Trileptal] 150 mg tablet 150 mg PO BID trazodone 50 mg tablet 50 mg PO BEDTIME PRN (Reason: Sleep) Rx Instructions: Dr. Dent hydrocortisone [Proctosol HC] 2.5 % cream with perineal applicator 1 appl AL BID PRN (Reason: hemorrhoids) Qty: 30 2RF oxcarbazepine 300 mg tablet 300 mg PO BID Referrals: Po,Alfredo Khalil MD [Primary Care Provider] - Discharge Date/Time: 01/19/24 00:40 Print Language: Omani
[2024-01-18] MEDS: LORazepam 2 MG/ML VIAL 1 MG IM (20:40)
[2024-01-18 21:21] VITALS: BP 123/85; PULSE 58; RESP 18; O2SAT 94
== END 2024-01-19 00:40 | disposition home or self-care (01) ==
PROVIDERS: Emergency Provider Emergency Medicine; PCP Internal Medicine
DX: S80.02XA Contusion of left knee, initial encounter (principal); M25.562 Pain in left knee; X58.XXXA Exposure to other specified factors, initial encounter; W01.0XXA Fall on same level from slipping, tripping and stumbling without subsequent striking against object, initial encounter; Y93.9 Activity, unspecified; Y92.099 Unspecified place in other non-institutional residence as the place of occurrence of the external cause; Y99.8 Other external cause status; Z79.899 Other long term (current) drug therapy
CPT/HCPCS: 73560; 73700; 96372; 99284; J2060

== ENCOUNTER 2024-01-29 11:52 | Outpatient (AMB) | payer MEDICARE, MEDICAID, SELFPAY ==
[2024-01-29 11:54] VITALS: BP 100/60; PULSE 62; O2SAT 90; BMI 26.9
--- NOTE | 2024-01-29 11:54 | MHC.PC.OV ---
Vital Signs 01/29/24 11:54 Height 4 ft Weight 88 lb BMI 26.9 BP 100/60 Blood Pressure Location Lt brachial Position Sitting Pulse 62 Pulse Source Pulse Oximeter Pulse Oximetry (%) 90 L Oxygen Delivery Method Room Air Intake Visit Reasons: hypothyroid Theatre Instructor: Present Allergies Sulfa (Sulfonamide Antibiotics) Allergy (Mild, Verified 01/29/24 11:55) HIVES sulfamethoxazole [From Bactrim] Allergy (Mild, Verified 01/29/24 11:55) HIVES amoxicillin [Amoxicillin] Allergy (Unknown, Verified 01/29/24 11:55) HIVES Clindamycin HCl Allergy (Unknown, Verified 01/29/24 11:55) rash trimethoprim [From Bactrim] Allergy (Unknown, Verified 01/29/24 11:55) HIVES Tobacco use date assessed: 09/29/23 Dental Screening Dental Screen Date: 12/15/23 HPI hypothyroid HPI Details 63-year-old female with down syndrome having hypothyroidism urinary incontinence last seen in December 2023 due to aspiration. Patient is here for follow-up. Noted ER visit in January 17 for mechanical fall landing on both hands and knees no head trauma patient had a CT of the knee did show mild arthritis trace joint effusion. unwitnessed fall but was found on the knee. PAtient is able to walk with a little limp L side [facility] Medical History Medicare annual wellness visit, subsequent Preoperative cardiovascular examination New onset left bundle branch block (LBBB) Lethargy COVID-19 virus infection Mental status alteration Colon cancer screening Atlantoaxial instability Cholelithiasis Mental and behavioral problem Hypercholesterolemia Vitamin D deficiency Closed right ankle fracture Patent foramen ovale Hypothyroid Megaloblastic anemia CVA (cerebral vascular accident) Cataracts, bilateral Down syndrome Jorge L's disease Surgical History Clubfoot Hx of tubal ligation Hx of cataract surgery History of colonoscopy Family History Father No problems noted. Mother Hx of cancer of lung Social History Household Members: Other Household Members Other:: [facility] Housing: Assisted Living Facility Housing Other:: snf Do you presently have visiting nurse or other home services: No Unable to assess alcohol history related to: Unable to respond and Unknown Alcohol intake: never Comment: snf staff at bedside Patient Tobacco Use Status: Never used Tobacco e-Cigarette/Vaping Use: Never Used Second Hand Smoke Exposure: No Advance Directives Date on File: 04/27/23 service: No Current occupational status: disabled Cognitive needs: Yes Hearing needs: No Vision needs: No Questionnaire Thrive Questionnaire Date Thrive assessed: 12/13/23 NEHA-7 AMB Questionnaire NEHA-7 Date NEHA - 7 assessed: 09/07/23 Source: Developed by Drs. Monico Cuellar, Peggy Morris, Parvez Guerrier and colleagues, with an educational tesha from [employer] Physical exam (Primary Care) Vital Signs: Last Vital Signs Pulse 62 01/29/24 11:54 BP 100/60 01/29/24 11:54 Pulse Ox 90 L 01/29/24 11:54 Oxygen Delivery Method Room Air 01/29/24 11:54 Next steps: hematoma L knee, but no grimace on moving legs BMI result Body Mass Index 26.9 Tobacco/Smoking Status: Tobacco use Status Tobacco use date assessed 09/29/23 01/29/24 12:03 Patient Tobacco Use Status Never used Tobacco 01/29/24 12:03 e-Cigarette/Vaping Use Never Used 01/29/24 12:03 Thrive Assessment: Date of Thrive Assessment Date Thrive assessed 12/13/23 01/29/24 12:03 Const General: alert; No acute distress Eyes Conjunctivae: conjunctivae normal Resp Auscultation: clear to auscultation bilaterally Cardio Rate: regular rate Rhythm: regular rhythm GI Inspection: Yes normal to inspection Assessment and Plan Assessment & Plan (1) Hypothyroid: Comment: Myxedema March 2019 Code(s): E03.9 - Hypothyroidism, unspecified Qualifiers: Hypothyroidism type: unspecified Qualified Code(s): E03.9 - Hypothyroidism, unspecified Plan: 11/2023 continue with present dose (2) Down syndrome: Code(s): Q90.9 - Down syndrome, unspecified (3) Contusion of knee, left: Code(s): S80.02XA - Contusion of left knee, initial encounter Qualifiers: Encounter type: initial encounter Qualified Code(s): S80.02XA - Contusion of left knee, initial encounter Plan: resolving , hot compress, tesha active Coding Level of Care Code Est Pt Level 3 (73983) Diagnoses Hypothyroidism, unspecified type E03.9 Hypothyroidism type: unspecified Down syndrome Q90.9 Contusion of knee, left S80.02XA Encounter type: initial encounter
== END 2024-01-29 12:32 | disposition home or self-care (01) ==
PROVIDERS: PCP Internal Medicine; Visit Provider Internal Medicine
DX: E03.9 Hypothyroidism, unspecified (principal); Q90.9 Down syndrome, unspecified; S80.02XA Contusion of left knee, initial encounter
CPT/HCPCS: 99213

== ENCOUNTER 2024-08-24 09:48 | Outpatient (REF) | payer MEDICARE, MEDICAID, SELFPAY ==
--- NOTE | ~2024-08-24 | XR_ITS ---
EXAMINATION: XR CHEST CLINICAL INFORMATION: R05.9 - Cough, unspecified COMPARISON: December 11, 2023. TECHNIQUE: 2 views of the chest were obtained. FINDINGS: Pulmonary reticular pattern. Indistinct margins in the perihilar regions. Linear opacities both mid lower hemithoraces. Cardiomediastinal silhouette is enlarged. No pneumothorax. No gross pleural effusion. S-shaped curvature of the thoracolumbar spine. Multilevel thoracolumbar spondylosis. Degenerative changes in the right shoulder. XR/XR chest 2V IMPRESSION: Pulmonary edema versus multifocal pneumonia. Cardiomegaly versus pericardial effusion. Electronically signed by: Jordan Woods MD 08/24/2024 10:36 AM [facility]
--- OUTSIDE RECORDS SUMMARY | 2024-08-24 10:15 | XMS_ITS | Data Portability ---
Author Organization [facility], [address] Address [address] [place] [address] Assessment No assessment recorded. Plan of Treatment Reminders Order Date Submit Date Provider Last Modified By Organization Details Last Modified Time Details Appointments None recorded. Lab None recorded. Referral emergency medicine referral 2022 023 [email or web address] [facility], [address] [place], [address], 3 08:00:22 Procedures None recorded. Surgeries None recorded. Imaging None recorded. Medication Orders None recorded. Patient TargetsNo targets recorded. Patient Instructions Encounter Date Encounter Id Patient Instructions Last Modified By Organization Details Last Modified Time 10/21/2022 [id number] You have been advised to go now to the Emergency Department for further evaluation. [facility] ER has been advised of your impending arrival. [email or web address] Not available 10/21/2022 17:01:48 Reason for Referral Emergency Medicine Referral for Petechiae of skin New petechial rash bilateral lower extremities (since last night) Referring Physician: vSeta Martin, Urgent Care, Encounter Date: 10/21/2022 Problems Name Problem SNOMED Code Status Onset Date Resolution Date Notes Provider Name and Address Organization Details Recorded Time Feeling agitated 63698379 Active 2022 IRIS COUVERTIE R null, [place] - [facility] 3 15:15:15 Mood disorder 19394760 Active 2022 IRIS COUVERTIE R null, [place] - [facility] 3 15:15:25 Aggressive behavior 60620432 Active 2022 IRIS COUVERTIE R null, [place] - [facility] 3 15:15:36 Constipation 43154739 Active 2022 IRIS COUVERTIE R null, [place] - [facility] 3 15:15:52 Hypothyroidism 08140413 Active 2022 IRIS COUVERTIE R null, [place] - [facility] 3 15:16:05 Allergic rhinitis 19721870 Active 2022 IRIS COUVERTIE R null, [place] - [facility] 3 15:16:38 Tinea pedis 8226350 Active 2022 IRIS COUVERTIE R null, [place] - [facility] 3 15:16:53 Sleep disorder 58296919 Active 2022 IRIS COUVERTIE R null, [place] - [facility] 3 15:18:09 Problem Notes None recorded. Medical Equipment None Reported. Allergies Allergen ID Allergen Name Allergen Category Reaction Reaction Severity Criticality Documentation Date Start Date Code Code System Note Provider Name and Address Organization Details Recorded Time 281269 amoxicill in medicatio n Not available Not available Not available 10/21/2022 723 RxNorm IRIS COUVERTIE R null, [place] - [facility] 3 15:04:10 755225 Bactrim medicatio n Not available Not available Not available 10/21/2022 43163 9 RxNorm IRIS COUVERTIE R null, [place] - [facility] 3 15:04:17 441970 Substance with sulfonami de structure and antibacte rial mechanism of action (substanc e) medicatio n Not available Not available Not available 10/21/2022 31126 8003 SNOMED IRIS COUVERTIE R null, [place] - [facility] 3 15:04:22 191908 clindamyc in Not available Not available Not available Not available 10/21/2022 2582 RxNorm IRIS COUVERTIE R null, [place] - [facility] 3 15:04:27 Medications Name Sig Start Date Stop Date Status Note LastModified by Organization Details LastModified Time oxcarbazepine 150 mg tablet 10/21 completed Not Available Not Available Not Available acetaminophen 325 mg tablet 10/21 completed Not Available Not Available Not Available trazodone 50 mg tablet active Not Available Not Available Not Available Thick-It oral powder active Not Available Not Available Not Available oxcarbazepine 300 mg tablet 10/21 completed Not Available Not Available Not Available gabapentin 300 mg capsule 10/21 completed Not Available Not Available Not Available aspirin 81 mg chewable tablet active Not Available Not Availa ble Not Available lorazepam 1 mg tablet active Not Available Not Available Not Available ibuprofen 100 mg/5 mL oral suspension active Not Available Not Available N ot Available ketoconazole 2 % topical cream active Not Available Not Availabl e Not Available SF 5000 Plus 1.1 % dental cream active Not Available Not Availab le Not Available fluticasone propionate 50 mcg/actuation nasal spray,suspension active Not Available Not Avail able Not Available Synthroid 137 mcg tablet active Not Available Not Available N ot Available senna active Not Available Not Availa ble Not Available Desyrel active Not Available Not Avail able Not Available Tylenol active Not Available Not Avail able Not Available Neurontin active Not Available Not Rachel ilable Not Available Trileptal active Not Available Not Rachel ilable Not Available cholecalciferol (vitamin D3) 25 mcg (1,000 unit) tablet active Not Available Not Available Not Available calcium 600 mg (as carbonate)-vitam in D3 10 mcg (400 unit) tablet 10/21 completed Not Available Not Available Not Available Stimulant Laxative Plus 8.6 mg-50 mg tablet active Not Available Not Available Not Available Zofran (base) active Not Available Not Available Not Available Vitals Date Recorded Body temperature Respiratory rate Heart rate Oxygen saturation Oxygen saturation in Arterial blood by Pulse oximetry Body height Body mass index (BMI) Body weight Systolic blood pressure Diastolic blood pressure Provider Name and Address Organization Details Last Updated DateTime 3 98.2 [degF] 18 /min 58 /min 94 % 94 % 124.46 cm 24.7 kg/m2 65412.8 6 g 96 mm[Hg] 69 mm[Hg] [facility] 3 15:11:15 Social History Question Answer Notes LastModified by Organizat ion Details LastModified Time Tobacco Smoking Status Never Smoker [facility] 10/21/2022 15:06:57 What Is Your Level Of Alcohol Consumption? None Information not available 10/21/2022 What Is Your Water Source? City Information not available 10/21/2022 What Is Your Heat Source? Other Information not available 10/21/2022 Have You Had Direct Contact, Or Contact During Intimacy, With Monkeypox Rash, Scabs, Or Body Fluids From A Person With Monkeypox? No Information not available 10/21/2022 Do You Use Any Illicit Or Recreational Drugs? No Information not available 10/21/2022 Have You Recently Traveled Abroad? No Information not available 10/21/2022 Do You Or Have You Ever Used Any Other Forms Of Tobacco Or Nicotine? No Information not available 10/21/2022 Sex: Unknown Functional Status None recorded. Mental Status None recorded. Family History Nothing Reported. Medical History No medical history recorded. Gynecological HistoryNo gynecological history recorded. Obstetrics History GPAL:G 0 P 0 0 0 0 Past Encounters Encounter ID Performer Location Encounter Start Date Encounter Closed Date Diagnosis/Indication Diagnosis SNOMED-CT Code Diagnosis ICD10 Code Diagnosis Note [id number] [place] [address] [address] 10/21/2022 09:24:57 10/21/2022 17:07:10 Petechiae of skin 935685229 R23.3 Health Concerns Section Related Observation LastModified by Organization Detai ls LastModified Time None Recorded Concern Status LastModified by Organization Details LastModified Time None Recorded Advance Directives Directive None Recorded Payers Encounter Date Sequence Insurance Name Policy Number Policy Lu Covered Member ID Lu Member ID Guarantor Name 10/21/2022 1 [place] [employer] Whitney Lucero [id number] Whitney Lucero 10/21/2022 2 [place] [facility] Whitney Lucero [id number] Whitney Lucero Notes Date Note Type Note Provider Name and Address Organization Details Recorded Time 3 text/html UC Rash/Skin LesionReported bypatient.source of patient informationInformation obtained from other; Patient arrived at Urgent Care ambulatory Location:legs Quality:spreading Severity:moderate Duration:Began last night. Context:no new detergent or skin product; no recent change in medication; no recent travel; no recent illness; not affiliated with chemicals/pesticides Associated Symptoms:no fever; no fatigue Treatment History:no history of treatmentNotes:62 year old female with hx of Down's syndrome brought by senior living staff member for evaluation of a red rash to her lower legs noted first last night. The patient is a poor historian and history obtained by senior living staff member. No hx of fever, runny nose, cough, vomiting, diarrhea. No new medications, soaps or lotions. The rash does not appear to be itchy but seems to be spreading. Sveta Martin MD [address] [place], [address], [place] - [facility] 10/21/2022 17:07:58 OBGyn Episode No OBEpisode recorded.
[2024-08-24 10:49] LABS: Influenza A PCR NEGATIVE (Negative); Influenza B PCR NEGATIVE (Negative); Resp Syncy Virus RNA Qual PCR NEGATIVE (Negative); SARS COV2 PCR INHOUSE NEGATIVE (Negative)
== END 2024-08-24 09:49 | disposition home or self-care (01) ==
LOC: HO.LAB 09:48
PROVIDERS: PCP Internal Medicine; Visit Provider Internal Medicine
DX: Z13.89 Encounter for screening for other disorder (principal)
CPT/HCPCS: 0241U; 71046

== ENCOUNTER → 2024-08-24 10:10 | Outpatient (BNV) | payer MEDICARE, MEDICAID, SELFPAY | PROVIDERS: PCP Internal Medicine; Visit Provider Radiology Diagnostic Radiology | DX: R05.9 Cough, unspecified (principal) | CPT/HCPCS: 71046; 71275 ==

== ENCOUNTER 2024-08-24 12:10 | Inpatient (IN) | payer MEDICARE, MEDICAID, SELFPAY ==
[2024-08-24] VITALS (33 sets, daily range): BP systolic 80–148; BP diastolic 40–80; PULSE 1–93; RESP 10–22; TEMP 35.4–37; O2SAT 74–100; BMI 18.8
--- NOTE | ~2024-08-24 | XR_ITS ---
CLINICAL HISTORY: ETT placement 1 view chest x-ray. Comparison: CT/[place]/SR - CT ANGIO CHEST PE PROTOCOL - 08/24/24 13:58 EST CR/SR - XR CHEST 2V - 08/24/24 10:17 EST Findings: Endotracheal tube in place. The distal tip of the endotracheal tube is visualized near the caridad. The caridad is obscured by an overlying cardiac lead. The heart size is borderline enlarged. Minimal to mild bibasilar opacities are present. No pneumothorax or significant pleural effusion visualized. Enteric tube identified coursing below the diaphragm. The distal tip of the enteric tube is not included on this examination. Impression: 1. Endotracheal tube in place with the distal tip near the caridad. The caridad is obscured by an overlying cardiac lead. Recommend endotracheal tube retraction. 2. Borderline cardiomegaly with minimal to mild bibasilar atelectasis versus infiltrates. This document has been electronically signed by: Rigo Davis MD on 08/25/2024 00:52:04
--- NOTE | ~2024-08-24 | CT_ITS ---
EXAMINATION: CT ANGIOGRAM CHEST CLINICAL INFORMATION: Hypoxia, cough, shortness of breath COMPARISON: 04/27/2023. Chest x-ray dated 08/24/2024. TECHNIQUE: Multiple axial images were obtained through the chest after the administration of 65 mL of Omnipaque 350 intravenous contrast. Extensive vascular post-processing including two-dimensional and three-dimensional reformatted images were created and reviewed on an independent workstation. This CT examination was performed using dose optimization techniques as appropriate, variously including the following: *Automated exposure control *Adjustment of mA and/or kV according to patient size (this includes techniques or standardized protocols for targeted exams where dose is matched to indication/reason for exam; i.e. extremities or head) *Use of iterative reconstruction technique FINDINGS: VASCULAR: There is no evidence of pulmonary embolus. Mildly prominent main normally artery. No evidence of acute aortic syndrome. No aortic aneurysm. Moderate cardiomegaly. Calcification of the mitral annulus. No pericardial effusion. LUNGS: Expiratory appearance, with indwelling of the posterior membranous trachea. Mild motion degradation. There are bibasilar consolidations consistent with bibasilar pneumonia. Generalized mosaic attenuation in mild haziness of the interstitium with interlobular septal thickening suggests superimposed mild interstitial edema. Evaluation for nodule is limited due to motion. Grossly no nodules seen. PLEURA: There is no pleural effusion. No pleural mass or thickening. MEDIASTINUM: There is no definite lymphadenopathy. There is mild anasarca. The esophagus appears unremarkable. AXILLA/CHEST WALL: No lymphadenopathy. Mild anasarca. UPPER ABDOMEN: Limited evaluation due to contrast timing. There is a right hepatic cyst in segment 7 measuring 1.6 cm. OSSEOUS STRUCTURES: No suspicious lytic or blastic bone lesions. Advanced degenerative spondylosis of the mid and upper thoracic spine with extensive sclerosis of the endplates. Associated scoliosis. CT/CT angio chest PE protocol IMPRESSION: 1. No evidence of pulmonary embolus. No evidence acute aortic syndrome. 2. Evaluation of lungs limited due to expiratory state and respiratory motion. There are bibasilar airspace consolidations consistent with bibasilar pneumonia. There is likely a degree of superimposed interstitial pulmonary edema. There are no effusions or pneumothorax. 3. There is moderate cardiomegaly. 4. There is mild anasarca of the soft tissues. Electronically signed by: Logan Singh MD 08/24/2024 02:38 PM EST RP
--- NOTE | ~2024-08-24 | XR_ITS ---
EXAMINATION: XR CHEST CLINICAL INFORMATION: ETT position COMPARISON: August 25, 2024 TECHNIQUE: Frontal view of the chest was obtained. FINDINGS: The endotracheal tube is 2 cm above caridad. Bilateral multifocal patchy opacities both lungs. No pneumothorax. No gross pleural effusion. Cardiomediastinal silhouette size is enlarged. S-shaped curvature of the thoracic spine. Degenerative changes in the shoulders. XR/XR chest 1V IMPRESSION: ET tube 2 cm above caridad. Overall worsening airspace disease versus increased pulmonary edema versus pulmonary hemorrhage versus pneumonitis among other etiologies. Electronically signed by: Jordan Woods MD 09/01/2024 03:57 PM EST
--- NOTE | 2024-08-24 12:43 | ED.URI ---
HPI - URI/Sore Throat General Chief Complaint: Dyspnea Stated Complaint: intermediate, low SpO2/lethargy, down syndrome Time Seen by Provider: 08/24/24 12:36 Source: patient, EMS, RN notes reviewed and old records reviewed Mode of arrival: EMS Limitations: other History of Present Illness ED Provider: Octavia Becker PA-C HPI Narrative: 64-year-old female with a past medical history of HLD, hypothyroid, CVA, Down syndrome, dementia, Jorge L's, presenting to the ED via EMS from intermediate complaining of upper respiratory symptoms of cough, SOB, and lethargy times 2-3 days. Patient had outpatient viral testing and CXR done today. Per intermediate staff at baseline patient is alert and oriented, ambulatory however has not been walking today, increasing lethargic. No reported falls or trauma. Remaining history limited due to patient's baseline and acute mental status Related Data Home Medications ?Medication ?Instructions ?Recorded ?Confirmed gabapentin 300 mg capsule 300 mg PO BID 01/10/21 08/24/24 oxcarbazepine 300 mg tablet 300 mg PO BID 06/17/22 08/24/24 oxcarbazepine 150 mg tablet 150 mg PO BID 07/31/22 08/24/24 (Trileptal) acetaminophen 650 mg/20.3 mL oral 650 mg PO Q4H PRN fever or pain 12/11/23 08/24/24 solution cetyl and stearate 1 appl topical MOTH 12/11/23 08/24/24 alcohol-propylen glycol-sls topical cream (Cetaphil topical cream) ketoconazole 2 % topical cream 1 appl topical MOTH 12/11/23 08/24/24 sodium fluoride 1.1 %-potassium 1 appl PO BID 12/11/23 08/24/24 nitrate 5 % dental paste calcium 600 mg (as 1 tab PO BID@1600,2000 08/24/24 08/24/24 carbonate)-vitamin D3 10 mcg (400 unit) tablet cholecalciferol (vitamin D3) 25 25 mcg PO DAILY 08/24/24 08/24/24 mcg (1,000 unit) tablet levothyroxine 137 mcg tablet 137 mcg PO DAILY@0600 08/24/24 08/24/24 (Synthroid) trazodone 50 mg tablet 50 mg PO BEDTIME PRN Sleep 08/24/24 08/24/24 Previous Rx's ?Medication ?Instructions ?Recorded hydrocortisone 2.5 % topical cream 1 appl RI BID PRN hemorrhoids #30 09/29/23 with perineal applicator grams (Proctosol HC) lorazepam 0.5 mg tablet 0.5 mg PO DAILY PRN Anxiety #7 tabs 12/18/23 dextromethorphan-guaifenesin 10 10 ml PO Q4H PRN cough #500 mL 08/11/24 mg-100 mg/5 mL oral syrup fluticasone propionate 50 1 spray intranasal DAILY #16 grams 08/11/24 mcg/actuation nasal spray,suspension ibuprofen 100 mg/5 mL oral 200 mg (10 mL) PO Q6H PRN pain 08/11/24 suspension #120 mL sennosides 8.6 mg-docusate sodium 1 tab PO BEDTIME #28 tabs 08/11/24 50 mg tablet (Senna Plus) aspirin 81 mg chewable tablet 81 mg PO DAILY #90 tabs 08/23/24 Allergies Allergy/AdvReac Type Severity Reaction Status Date / Time Sulfa (Sulfonamide Allergy Mild HIVES Verified 08/24/24 12:37 Antibiotics) sulfamethoxazole Allergy Mild HIVES Verified 08/24/24 12:37 [From Bactrim] amoxicillin [Amoxicillin] Allergy Unknown HIVES Verified 08/24/24 12:37 Clindamycin HCl Allergy Unknown rash Verified 08/24/24 12:37 trimethoprim [From Bactrim] Allergy Unknown HIVES Verified 08/24/24 12:37 Review of Systems Review of Systems: Yes all other systems are reviewed and are negative Constitutional: Constitutional: Reports as per [facility] Past Medical History Attestation statement: The following information was validated with the patient. Source: old records reviewed Medical History Medicare annual wellness visit, subsequent Preoperative cardiovascular examination New onset left bundle branch block (LBBB) Lethargy COVID-19 virus infection Mental status alteration Colon cancer screening Atlantoaxial instability Cholelithiasis Mental and behavioral problem Hypercholesterolemia Vitamin D deficiency Closed right ankle fracture Patent foramen ovale Hypothyroid Megaloblastic anemia CVA (cerebral vascular accident) Cataracts, bilateral Down syndrome Jorge L's disease Surgical History Clubfoot Hx of tubal ligation Hx of cataract surgery History of colonoscopy Family History Family History Father No problems noted. Mother Hx of cancer of lung Social History Social History Household Members: Other Household Members Other:: [facility] Housing: Assisted Living Facility Housing Other:: intermediate Do you presently have visiting nurse or other home services: No Unable to assess alcohol history related to: Unable to respond and Unknown Alcohol intake: never Comment: intermediate staff at bedside Patient Tobacco Use Status: Never used Tobacco Smoked in Last 30 Days: No e-Cigarette/Vaping Use: Never Used Second Hand Smoke Exposure: No Use of substances other than those prescribed or required for medical reasons: No Advance Directives: No Advance Directives Information Provided: No Advance Directives Date on File: 04/27/23 Patient : No service: No Current occupational status: disabled Cognitive needs: Yes Hearing needs: No Vision needs: No Physical Exam Vital Signs: Vital Signs: Last Vital Signs Temp 98.6 F 08/24/24 15:54 Pulse 78 08/24/24 16:39 Resp 20 08/24/24 16:39 BP 93/51 L 08/24/24 16:39 Pulse Ox 94 08/24/24 16:39 O2 Del Method Oxymask 08/24/24 16:39 O2 Flow Rate 10 08/24/24 16:39 Oxygen Flow Rate 5 08/24/24 12:35 BMI result Body Mass Index 18.8 Const: General: no acute distress and lethargic Orientation/consciousness: lethargic Limitations: no limitations HEENT: Head: Yes normal to inspection and Yes atraumatic Ears: hearing grossly normal bilaterally General nose exam: Normal external nose present Face and sinus: Yes normal facial exam Eyes: General: appearance normal, both eyes and all related structures EOM: EOMs intact bilaterally Neck: Neck: Yes normal visual inspection and Yes no meningeal signs Resp: Effort & Inspection: normal respiratory effort and no respiratory distress Auscultation: crackles on the right in the upper lung pelayo and diminished lung sounds diffuse Cardio: Rate: regular rate Heart sounds: S1 normal heart sound present and S2 normal heart sound present GI: Inspection: Yes normal to inspection Palpation (GI): Soft to palpation, nontender, no guarding and not rigid Skin: Rashes: no rashes Wounds: no wounds Neuro: General: tone normal and no meningeal signs Cranial nerves: Yes CN's II-XII intact bilaterally Gait exam (Neuro): Normal gait present Extrem: Other: 1+ bilateral LE pitting edema General: Yes normal to inspection Course Course Course Narrative: XR chest 2V IMPRESSION: Pulmonary edema versus multifocal pneumonia. Cardiomegaly versus pericardial effusion. -viral testing negative 1357--infection now suspected. Leukocytosis of 17.4 > will obtain lactic/blood cultures and give empiric IV antibiotics -BUN acute on chronically elevated. Troponin 21 > will obtain 3 hour repeat. BNP 705 > Lasix ordered 1443--CT angio chest PE protocol IMPRESSION: 1. No evidence of pulmonary embolus. No evidence acute aortic syndrome. 2. Evaluation of lungs limited due to expiratory state and respiratory motion. There are bibasilar airspace consolidations consistent with bibasilar pneumonia. There is likely a degree of superimposed interstitial pulmonary edema. There are no effusions or pneumothorax. 3. There is moderate cardiomegaly. 4. There is mild anasarca of the soft tissues. > plan to admit for further management, case discussed with hospitalist > BP soft, holding on admission until improvement. We will give albumin and small bolus of slow fluids. Avoiding 30 mg / kg IVF secondary to fluid overload concern 1705--ED care transferred to [facility] pending BP improvement and admission. Hospitalist aware Medications Administered Discontinued Medications Generic Name Dose Route Start Last Admin Trade Name Lion PRN Reason Stop Dose Admin Ceftriaxone Sodium 1 gm 08/24/24 13:56 08/24/24 14:24 Ceftriaxone Sodium 1 Gm Vial IVPUSH 08/24/24 13:57 1 gm ONCE ONE Administration Albuterol Sulfate 2.5 mg/ 0 mg 08/24/24 12:52 08/24/24 12:59 Albuterol/Ipratropium 3 ml INHALE 08/24/24 12:53 5 dose ONCE ONE Administration Furosemide 40 mg 08/24/24 13:58 08/24/24 14:29 Furosemide 40 Mg/4 Ml Vial IVPUSH 08/24/24 13:59 40 mg ONCE ONE Administration Protocol Azithromycin 500 mg/ Sodium 250 mls @ 125 mls/hr 08/24/24 13:56 08/24/24 16:36 Chloride IV 08/24/24 15:55 Infused ONCE ONE Infusion Sodium Chloride 500 mls @ 999 mls/hr 08/24/24 16:15 08/24/24 16:58 Ns IV 08/24/24 16:45 Infused .Q31M DANDY Infusion Albumin Human 50 mls @ 100 mls/hr 08/24/24 16:10 08/24/24 16:34 Kedbumin 25 % IV 08/24/24 16:39 100 mls/hr ONCE ONE Administration Iohexol 65 ml 08/24/24 14:24 08/24/24 14:24 Iohexol 350 Mg/Ml 100 Ml Infus..Btl IV 08/24/24 14:25 65 ml ONCE ONE Administration Lorazepam 1 mg 08/24/24 14:18 08/24/24 14:31 Lorazepam 1 Mg Tablet PO 08/24/24 14:19 1 mg ONCE ONE Administration Lorazepam 0.5 mg 08/24/24 14:38 08/24/24 14:42 Lorazepam 2 Mg/Ml Vial IVPUSH 08/24/24 14:39 0.5 mg STAT STA Administration Methylprednisolone Sodium Succinate 60 mg 08/24/24 12:53 08/24/24 13:17 Methylprednisolone Sod Succ 125 Mg/2 Ml Vial IVPUSH 08/24/24 12:54 60 mg ONCE ONE Administration Medical Decision Making Medical Decision Making MDM Narrative: 64-year-old female with a past medical history of HLD, hypothyroid, CVA, Down syndrome, dementia, Jorge L's, presenting to the ED via EMS from intermediate complaining of upper respiratory symptoms of cough, SOB, and lethargy times 2-3 days. On exam de-satted 70's on room air, diminished lung sound throughout with crackles in RUL. 1+ LE pitting edema. Concern for URI sx vs pneumonia/bronchitis vs CHF vs PE. Low suspicion for severe sepsis at this time Plan: EKG, labs, CTA, ED bronch protocol, IV Solu-Medrol, anticipated admission Please refer to course for remaining clinical decision making, interpretation of labs/imaging results, and discussions with consultants and/or family members. Differential Diagnosis Differential Diagnoses: The differential diagnosis associated with the presentation includes As above Admission/Observation Consideration of admission/observation: Escalation of care including admission/observation considered Consult Healthcare Provider Management of the patient was discussed with: Hospitalist Lab Data MDM Lab Attestation statement: I reviewed the patient's lab results. 08/24/24 13:32 08/24/24 13:13 Labs: Lab Results 08/24/24 08/24/24 08/24/24 Range/Units 13:13 13:32 15:48 WBC 17.4 H (4.8-10.8) X10*3/uL RBC 3.91 L (4.20-5.50) X10*6/uL Hgb 13.6 (12.0-16.0) g/dl Hct 41.9 (37.0-47.0) % MCV 107.2 H (80.0-98.0) fL MCH 34.8 H (27.0-33.0) pg MCHC 32.5 (31.0-35.0) g/dl RDW 14.5 (11.0-16.0) % Plt Count 145 L (160-400) X10*3/uL MPV 9.7 (9.4-12.3) fL Immature Gran % (Auto) 0.7 H (0.0-0.4) % Neut % (Auto) 84.2 H (45-73) % Lymph % (Auto) 10.3 L (20-40) % [place] % (Auto) 4.4 (2-11) % Eos % (Auto) 0.1 (0-4) % Baso % (Auto) 0.3 (0-2) % Lymph # (Auto) 1.8 (1.2-4.9) X10*3/uL [place] # (Auto) 0.8 (0.1-1.2) X10*3/uL Eos # (Auto) 0.0 (0.0-0.4) X10*3/uL Baso # (Auto) 0.1 (0.0-0.2) X10*3/uL Abs Immat Gran (auto) 0.12 H (0.00-0.03) X10*3/uL Absolute Neuts (auto) 14.6 H (2.0-8.3) x10*3/uL Absolute Nucleated RBC 0.000 (0.0-0.012) X10*3/uL Nucleated RBC % (auto) 0.0 (0.0-0.2) /100WBC Sodium 144 (135-145) mmol/L Potassium 4.6 (3.3-5.1) mmol/L Chloride 111 H (96-108) mmol/L Carbon Dioxide 23 (22-29) mmol/L Anion Gap 15 (12-20) BUN 29 H (9-16) mg/dL Creatinine 1.11 (0.5-1.4) mg/dL Estim Creat Clear Calc 31.2 Estimated GFR 49 Random Glucose 109 (60-115) mg/dL Lactic Acid 3.2 H* (0.5-2.0) mmol/L Calcium 9.3 (8.4-10.2) mg/dL Magnesium 2.2 (1.6-2.6) mg/dL Total Bilirubin 0.4 (0.0-1.0) mg/dL Direct Bilirubin 0.1 (0.0-0.5) mg/dL AST 24 (5-31) U/L ALT 18 (0-31) U/L Alkaline Phosphatase 88 (39-117) U/L Troponin I High Sens 21.0 H D 17.9 H (<3.5-17.0) ng/L B-Natriuretic Peptide 705 H (<100) pg/mL Total Protein 7.7 (6.5-8.0) g/dL Albumin 3.5 (3.5-5.0) g/dL Urine Color Urine Appearance Urine pH (5.0-9.0) Ur Specific [place] (1.005-1.025) Urine Protein (Neg-Trace) mg/dL Urine Glucose (UA) (Negative) mg/dL Urine Ketones (Negative) mg/dL Urine Blood (Negative) Urine Nitrite (Negative) Ur Leukocyte Esterase (Negative) Urine RBC (0-2) /HPF Urine WBC (0-5) /HPF Ur Squamous Epith Cells (0-2) /HPF Urine Bacteria (None Seen) Hyaline Casts (0-2) /LPF 08/24/24 Range/Units 16:05 WBC (4.8-10.8) X10*3/uL RBC (4.20-5.50) X10*6/uL Hgb (12.0-16.0) g/dl Hct (37.0-47.0) % MCV (80.0-98.0) fL MCH (27.0-33.0) pg MCHC (31.0-35.0) g/dl RDW (11.0-16.0) % Plt Count (160-400) X10*3/uL MPV (9.4-12.3) fL Immature Gran % (Auto) (0.0-0.4) % Neut % (Auto) (45-73) % Lymph % (Auto) (20-40) % [place] % (Auto) (2-11) % Eos % (Auto) (0-4) % Baso % (Auto) (0-2) % Lymph # (Auto) (1.2-4.9) X10*3/uL [place] # (Auto) (0.1-1.2) X10*3/uL Eos # (Auto) (0.0-0.4) X10*3/uL Baso # (Auto) (0.0-0.2) X10*3/uL Abs Immat Gran (auto) (0.00-0.03) X10*3/uL Absolute Neuts (auto) (2.0-8.3) x10*3/uL Absolute Nucleated RBC (0.0-0.012) X10*3/uL Nucleated RBC % (auto) (0.0-0.2) /100WBC Sodium (135-145) mmol/L Potassium (3.3-5.1) mmol/L Chloride (96-108) mmol/L Carbon Dioxide (22-29) mmol/L Anion Gap (12-20) BUN (9-16) mg/dL Creatinine (0.5-1.4) mg/dL Estim Creat Clear Calc Estimated GFR Random Glucose (60-115) mg/dL Lactic Acid (0.5-2.0) mmol/L Calcium (8.4-10.2) mg/dL Magnesium (1.6-2.6) mg/dL Total Bilirubin (0.0-1.0) mg/dL Direct Bilirubin (0.0-0.5) mg/dL AST (5-31) U/L ALT (0-31) U/L Alkaline Phosphatase (39-117) U/L Troponin I High Sens (<3.5-17.0) ng/L B-Natriuretic Peptide (<100) pg/mL Total Protein (6.5-8.0) g/dL Albumin (3.5-5.0) g/dL Urine Color Yellow Urine Appearance Clear Urine pH 6.0 (5.0-9.0) Ur Specific [place] 1.025 (1.005-1.025) Urine Protein Negative (Neg-Trace) mg/dL Urine Glucose (UA) Negative (Negative) mg/dL Urine Ketones Negative (Negative) mg/dL Urine Blood Negative (Negative) Urine Nitrite Negative (Negative) Ur Leukocyte Esterase Small (1+) H (Negative) Urine RBC 0-2 (0-2) /HPF Urine WBC 11-20 H (0-5) /HPF Ur Squamous Epith Cells 0-2 (0-2) /HPF Urine Bacteria None Seen (None Seen) Hyaline Casts 0-2 (0-2) /LPF Independent Interpretation I performed an independent interpretation of an: EKG, Plain X-Ray and CT Scan Radiology Impression Discussion of test interpretation with radiology: I have reviewed the radiologist's reading. Independent Historian Clinical information obtained from an independent historian. History obtained from or confirmed by: EMS and Other ([facility] staff) External Record Review External record reviewed: Inpatient record, Office record, Outpatient record, Prior outpatient labs, Prior outpatient radiology, Primary care record and Outside ED record Tests considered The following testing was considered but not selected: As above Prescription Management I considered prescription management with: Pain Medication and Antibiotic Chronic Conditions Patient?s care impacted by: Other (Dementia, Down syndrome, hypothyroid) Social Determinants Patient?s care significantly limited by Social Determinants of Health including: Problems related to primary support group and Other Social Determinant of Health Critical Care Time Critical Care Time Critical Care Time: Yes Total Critical Care Time: 45 Attestation: I have personally provided critical care time exclusive of time spent on separately billable procedures. Time includes review of lab data, radiology results, discussion with consultants, and monitoring for potential decompensation. Intervention performed as documented. Discharge Plan Discharge Clinical Impression: Multifocal pneumonia, Hypoxia, Pulmonary edema Patient Disposition: Admitted As Inpatient Print Language: Danish
--- NOTE | 2024-08-24 12:44 | ECG_ITS ---
Test Reason : SOB Blood Pressure : */* mmHG Vent. Rate : 67 BPM Atrial Rate : 67 BPM P-R Int : 192 ms QRS Dur : 126 ms QT Int : 444 ms P-R-T Axes : 44 -46 21 degrees QTcB Int : 469 ms Normal sinus rhythm Left axis deviation Left bundle branch block Abnormal ECG When compared with ECG of 11-Dec-2023 07:32, No significant change was found Referred By: Octavia Becker Electronically Signed By: ALESHIA CID
[2024-08-24] MEDS: Albuterol Sulfate 2.5 MG, Albuterol/Iprat 2.5/0.5MG 3 ML 3 ML INHALE (12:59)
[2024-08-24] MEDS: methylPREDNISolone Sod Succ 125 MG/2 ML VIAL 60 MG IVPUSH (13:17)
[2024-08-24 13:40] LABS: Alanine Aminotransferase 18 U/L (0-31); Albumin Level 3.5 g/dL (3.5-5.0); Alkaline Phosphatase 88 U/L (39-117); Anion Gap 15 (12-20); Aspartate Amino Transferase 24 U/L (5-31); Bilirubin Direct 0.1 mg/dL (0.0-0.5); Bilirubin Total 0.4 mg/dL (0.0-1.0); Blood Urea Nitrogen 29 mg/dL (9-16); Calcium 9.3 mg/dL (8.4-10.2); Carbon Dioxide 23 mmol/L (22-29); Chloride 111 mmol/L (96-108); Creatinine Clr Calc Pharmacy 31.2; Estimated Glomerular Filt Rate 49; Glucose Random 109 mg/dL (60-115); Magnesium 2.2 mg/dL (1.6-2.6); Potassium 4.6 mmol/L (3.3-5.1); Sodium 144 mmol/L (135-145); Total Protein 7.7 g/dL (6.5-8.0)
[2024-08-24 13:42] LABS: Basophils Absolute Auto 0.1 X10*3/uL (0.0-0.2); Basophils Percent Auto 0.3 % (0-2); Eosinophils Percent Auto 0.1 % (0-4); Hematocrit 41.9 % (37.0-47.0); Hemoglobin 13.6 g/dl (12.0-16.0); Imm Gran Abs Auto 0.12 X10*3/uL (0.00-0.03); Imm Gran Pct Auto 0.7 % (0.0-0.4); Lymphocytes Absolute Auto 1.8 X10*3/uL (1.2-4.9); Lymphocytes Percent Auto 10.3 % (20-40); Mean Corpuscular HGB Conc 32.5 g/dl (31.0-35.0); Mean Corpuscular Hemoglobin 34.8 pg (27.0-33.0); Mean Corpuscular Volume 107.2 fL (80.0-98.0); Mean Platelet Volume 9.7 fL (9.4-12.3); Monocytes Absolute Auto 0.8 X10*3/uL (0.1-1.2); Monocytes Percent Auto 4.4 % (2-11); Neutrophils Absolute Auto 14.6 x10*3/uL (2.0-8.3); Neutrophils Percent Auto 84.2 % (45-73); Platelet Count 145 X10*3/uL (160-400); Red Blood Count 3.91 X10*6/uL (4.20-5.50); Red Cell Distribution Width 14.5 % (11.0-16.0); White Blood Count 17.4 X10*3/uL (4.8-10.8)
[2024-08-24 13:44] LABS: B Type Natriuretic Peptide 705 pg/mL (<100)
[2024-08-24] MEDS: cefTRIAXone sodium 1 GM VIAL IVPUSH (14:24)
[2024-08-24] MEDS: iohexoL 350 MG/ML 100 ML INFUS..BTL 65 ML IV (14:24)
[2024-08-24] MEDS: Furosemide 40 MG/4 ML VIAL IVPUSH (14:29)
[2024-08-24] MEDS: Azithromycin 500 MG in 0.9 % Sodium Chloride 250 ML 125 MG IV (14:31)
[2024-08-24] MEDS: LORazepam 1 MG TABLET PO (14:31)
--- NOTE | 2024-08-24 14:35 | PC.NURSE ---
Pt spit out ativan. Provider alerted
[2024-08-24] MEDS: LORazepam 2 MG/ML VIAL 0.5 MG IVPUSH (14:42)
--- NOTE | 2024-08-24 15:09 | PC.NURSE ---
[facility] cough and lethargy, sick X2 days. Pt has down syndrome and has communication barriers at baseline, staff staying with her at baseline. Pt went to urgent care earlier today and had labs and x-ray done. Pt is very lethargic on arrival but had period of restlessness, ripping off wires and O2. Pt had to be continually redirected by staff, medicated per MAR with good effect. RA SPO2 drops to 70s, improves quickly on oxymask 7-9L to >92%. NSR on bedside monitor.
--- NOTE | 2024-08-24 15:15 | PC.NURSE ---
Per staff, pt takes pills crushed in applesauce or pudding. med list and [facility] information sheets in pts chart
--- NOTE | 2024-08-24 15:16 | PC.NURSE ---
Delay in urine sample and some labs due to increase in agitation which staff reports happens from time to time. Pt gets ativan at correction, medicated here and pt becoming more calm. Will complete tasks.
--- NOTE | 2024-08-24 15:20 | PHA.MEDREC ---
Addendum entered by Palmer Sarah RPh 08/24/24 16:24: Med rec was reviewed by [facility]. Spoke to Tiffany Renteria and Edy to confirm direction of flonase nasal spray as 1 spray in each nostril every morning . Original Note: Pharmacy Consult ? Medication Reconciliation Pharmacy has completed the medication reconciliation. Utilized list from [facility] to confirm med list.
--- NOTE | 2024-08-24 15:31 | PM.IMHP ---
History of Present Illness Date of Service: 08/24/24 Chief Complaint: Hypoxia A 64 years old lady with PMH of HLD, hypothyroid, CVA, Down syndrome, dementia, Jorge L's, [facility] with cough, SOB and Hypoxia with lethargy for 2-3 days now. The patient was noted to thave low O2 sat of 74% on RA. Had outpatient work u before presenting to hospital as her baseline is alert and oriented but has been more lethargic and tired for the last 2 days. unable to provide much of history from altered mentation. In ED found to have low O2 sat improved on O2 supplement. BNP elevated at 705. Leukocytosis. CTA negative for PE but showing bilateral pneumonia with pulmonary edema. Started on Lasix, Azithromycin and Ceftriaxone. Admitted for further work up and management. Review of Systems Review of Systems: Yes Unobtainable due to mental status [facility] Medical History Medicare annual wellness visit, subsequent Preoperative cardiovascular examination New onset left bundle branch block (LBBB) Lethargy COVID-19 virus infection Mental status alteration Colon cancer screening Atlantoaxial instability Cholelithiasis Mental and behavioral problem Hypercholesterolemia Vitamin D deficiency Closed right ankle fracture Patent foramen ovale Hypothyroid Megaloblastic anemia CVA (cerebral vascular accident) Cataracts, bilateral Down syndrome Jorge L's disease Family History Father No problems noted. Mother Hx of cancer of lung Surgical History Clubfoot Hx of tubal ligation Hx of cataract surgery History of colonoscopy Social History Household Members: Other Household Members Other:: CHD Housing: Assisted Living Facility Housing Other:: jail Do you presently have visiting nurse or other home services: No Unable to assess alcohol history related to: Unable to respond and Unknown Alcohol intake: never Comment: jail staff at bedside Patient Tobacco Use Status: Never used Tobacco Smoked in Last 30 Days: No e-Cigarette/Vaping Use: Never Used Second Hand Smoke Exposure: No Use of substances other than those prescribed or required for medical reasons: No Advance Directives: No Advance Directives Information Provided: No Advance Directives Date on File: 04/27/23 Patient : No service: No Current occupational status: disabled Cognitive needs: Yes Hearing needs: No Vision needs: No Meds Allergies Allergy/AdvReac Type Severity Reaction Status Date / Time Sulfa (Sulfonamide Allergy Mild HIVES Verified 08/24/24 12:37 Antibiotics) sulfamethoxazole Allergy Mild HIVES Verified 08/24/24 12:37 [From Bactrim] amoxicillin [Amoxicillin] Allergy Unknown HIVES Verified 08/24/24 12:37 Clindamycin HCl Allergy Unknown rash Verified 08/24/24 12:37 trimethoprim [From Bactrim] Allergy Unknown HIVES Verified 08/24/24 12:37 Active Medications: Current Medications Azithromycin 500 mg/ Sodium (Chloride) 250 mls @ 125 mls/hr IV ONCE ONE Stop: 08/24/24 15:55 Last Admin: 08/24/24 14:31 Dose: 125 mls/hr Home Medications ?Medication ?Instructions ?Recorded ?Confirmed ?Last Taken ?Type gabapentin 300 mg capsule 300 mg PO BID 01/10/21 08/24/24 Unknown History oxcarbazepine 300 mg tablet 300 mg PO BID 06/17/22 08/24/24 Unknown History oxcarbazepine 150 mg tablet 150 mg PO BID 07/31/22 08/24/24 Unknown History (Trileptal) acetaminophen 650 mg/20.3 mL oral 650 mg PO Q4H PRN fever or pain 12/11/23 08/24/24 Unknown History solution cetyl and stearate 1 appl topical MOTH 12/11/23 08/24/24 Unknown History alcohol-propylen glycol-sls topical cream (Cetaphil topical cream) ketoconazole 2 % topical cream 1 appl topical MOTH 12/11/23 08/24/24 Unknown History sodium fluoride 1.1 %-potassium 1 appl PO BID 12/11/23 08/24/24 Unknown History nitrate 5 % dental paste cholecalciferol (vitamin D3) 25 25 mcg PO DAILY 08/24/24 08/24/24 Unknown History mcg (1,000 unit) tablet levothyroxine 137 mcg tablet 137 mcg PO DAILY@0600 08/24/24 08/24/24 Unknown History (Synthroid) trazodone 50 mg tablet 50 mg PO BEDTIME PRN Sleep 08/24/24 08/24/24 Unknown History Physical Exam Vital Signs and Narrative: Vital Signs: Last Vital Signs Temp 98.1 F 08/24/24 12:35 Pulse 90 08/24/24 14:36 Resp 22 H 08/24/24 14:36 BP 111/76 08/24/24 14:36 Pulse Ox 94 08/24/24 14:36 O2 Del Method Oxymask 08/24/24 14:36 O2 Flow Rate 8 08/24/24 14:36 Oxygen Flow Rate 5 08/24/24 12:35 BMI result Body Mass Index 18.8 Const: Other: Constitutional : Awake, interactive, not in distress Neck : Normal inspection, Supple Cardiovascular : RRR, no JVP, no lower extremity edema Respiratory : dcecreased bilateral air entry, basal bilateral crackles, fine expiratory wheezes , On O2 supplement Gastrointestinal: soft, lax, Normal bowel sounds, Non tender Skin : Warm, Dry Neurological : Alert with stimulation, oriented to self , Moving extremities Results Labs 08/24/24 13:32 08/24/24 13:13 Labs: Laboratory Results - last 24 hr 08/24/24 08/24/24 13:13 13:32 MCV 107.2 H MCH 34.8 H MCHC 32.5 RDW 14.5 Plt Count 145 L MPV 9.7 Immature Gran % (Auto) 0.7 H Neut % (Auto) 84.2 H Lymph % (Auto) 10.3 L [place] % (Auto) 4.4 Eos % (Auto) 0.1 Baso % (Auto) 0.3 Lymph # (Auto) 1.8 [place] # (Auto) 0.8 Eos # (Auto) 0.0 Baso # (Auto) 0.1 Abs Immat Gran (auto) 0.12 H Absolute Neuts (auto) 14.6 H Absolute Nucleated RBC 0.000 Nucleated RBC % (auto) 0.0 Anion Gap 15 Estim Creat Clear Calc 31.2 Estimated GFR 49 Random Glucose 109 Calcium 9.3 Magnesium 2.2 Total Bilirubin 0.4 Direct Bilirubin 0.1 AST 24 ALT 18 Alkaline Phosphatase 88 B-Natriuretic Peptide 705 H Total Protein 7.7 Albumin 3.5 Imaging Radiologist's Impressions: Impressions Chest CTA 08/24/24 13:58 IMPRESSION: 1. No evidence of pulmonary embolus. No evidence acute aortic syndrome. 2. Evaluation of lungs limited due to expiratory state and respiratory motion. There are bibasilar airspace consolidations consistent with bibasilar pneumonia. There is likely a degree of superimposed interstitial pulmonary edema. There are no effusions or pneumothorax. 3. There is moderate cardiomegaly. 4. There is mild anasarca of the soft tissues. Electronically signed by: Logan Singh MD 08/24/2024 02:38 PM [facility] Assessment and Plan (1) Pulmonary edema: Status: Acute (2) Hypoxia: Status: Acute (3) Multifocal pneumonia: Status: Acute Plan A 64 years old lady with PMH of HLD, hypothyroid, CVA, Down syndrome, dementia, Jorge L's, presenting [facility] with cough, SOB and Hypoxia. Acute hypoxic respiratory fdailure 2/2 pneumonia complicated with acute toxic-metabolic encephalopathy not septic Treated with IV Azithromycin and Ceftriaxone Pending cultures Wean O2 down as toelrated recurrent orientation Fluid overload seen on CT scan Elevated BNP IV Lasix follow I\O Elevated Trop I no T\ST wave changes no chest pain likely type 2 , follow trend Mood disorder Continue home mood stabilizers Hypothyroidism Synthroid Down's syndrome with behavioral disturbance: Maintain sleep wake cycle, home meds Full code will require 2 overnight hospital stay for treatment of pneumonia and hypoxia on supplemental oxygen and IV antibiotics
[2024-08-24] MEDS: 0.9 % Sodium Chloride 500 ML 999 ML IV (16:11)
--- NOTE | 2024-08-24 16:12 | PC.NURSE ---
Pt straight cath without issue, approx 500 mL of urine output. Brief soaked in urine. Purewick placed for urine incontinence
[2024-08-24 16:15] LABS: Troponin-I High Sensitivity 17.9 ng/L (<3.5-17.0)
[2024-08-24 16:17] LABS: Appearance Urine Clear; Color Urine Yellow; Glucose Urine UA Negative (Negative); Leukocyte Esterase Urine Small (1+) (Negative); Nitrite Urine Negative (Negative); Specific Gravity - Urine 1.025 (1.005-1.025); UMIC TRIGGER UACC YES; Urine Blood Negative (Negative); Urine Ketones Negative (Negative); Urine Protein Negative (Neg-Trace)
[2024-08-24 16:19] LABS: Bacteria Urine None Seen (None Seen); Hyaline Casts Urine 0-2 /LPF (0-2); RBC Urine 0-2 /HPF (0-2); Squamous Epithelial Cell Urine 0-2 /HPF (0-2); UACC Culture Trigger YES
[2024-08-24] MEDS: Albumin Human 25 % 50 ML 100 ML IV ×2 (16:34→17:07)
--- NOTE | 2024-08-24 16:38 | PC.NURSE ---
Provider aware of low BPs, meds infusing
[2024-08-24] MEDS: Lactated Ringers 500 ML 999 ML IV ×2 (17:42→18:49)
[2024-08-24 17:52] LABS: Reflex Lactate? Lactic Acid Added
--- NOTE | 2024-08-24 18:45 | PC.NURSE ---
BPs continue to be low, pt continues to sleep. airway patent, sating well on 10L oxy mask. Provider aware
--- NOTE | 2024-08-24 19:17 | PC.NURSE ---
Took over care from JUSTINA Villatoro, pt been having low blood pressure, Dr. Goins at the bed side to assess pt and discuss plan of care, awaiting disposition.
[2024-08-24 19:22] LABS: Lactic Acid 3.8 mmol/L (0.5-2.0)
[2024-08-24] MEDS: Norepinephrine Bitartrate/D5W 8 MG/250 ML PLAST..BAG 3.7 MG IVCONT (19:46)
--- NOTE | 2024-08-24 19:54 | PC.NURSE ---
levo started, verified with JUSTINA Ann.
[2024-08-24 20:28] LABS: Lactic Acid 3.2 mmol/L (0.5-2.0)
[2024-08-24 20:55] LABS: Reflex Lactate? Lactic Acid Added
[2024-08-24] MEDS: Heparin Sodium,Porcine 5,000 UNIT/ML VIAL 5000 UNIT SUBCUT (21:26)
[2024-08-24 21:36] LABS: Phosphorus 3.4 mg/dL (2.7-4.5)
--- NOTE | 2024-08-24 21:43 | PC.NURSE ---
pt incontinent of urine, complete bed changed, pt medicated per mar, pt transferred to [facility] with respiratory.
[2024-08-24 21:52] LABS: ~Lactic Acid-LAB USE ONLY 3.3 mmol/L (0.5-2.0)
--- NOTE | 2024-08-24 22:14 | P.HPCC_ITS ---
History of Present Illness Date of Service: 08/24/24 Attending physician on admission: Keisha Krishna Chief Complaint: Dyspnea Review of Systems 2 Review of Systems: Yes Unobtainable due to mental status Neurologic: Reports Abnormal speech present [facility] Past Medical History Medical History Medicare annual wellness visit, subsequent Preoperative cardiovascular examination New onset left bundle branch block (LBBB) Lethargy COVID-19 virus infection Mental status alteration Colon cancer screening Atlantoaxial instability Cholelithiasis Mental and behavioral problem Hypercholesterolemia Vitamin D deficiency Closed right ankle fracture Patent foramen ovale Hypothyroid Megaloblastic anemia CVA (cerebral vascular accident) Cataracts, bilateral Down syndrome Jorge L's disease Family History Family History Father No problems noted. Mother Hx of cancer of lung Surgical History Surgical History Clubfoot Hx of tubal ligation Hx of cataract surgery History of colonoscopy Social History Social History Household Members: Other Household Members Other:: CHD Housing: Other Housing Other:: care home Do you presently have visiting nurse or other home services: Yes Unable to assess alcohol history related to: Unable to respond and Unknown Alcohol intake: never Comment: [place] [facility] staff at bedside Patient Tobacco Use Status: Never used Tobacco Smoked in Last 30 Days: No e-Cigarette/Vaping Use: Never Used Second Hand Smoke Exposure: No Use of substances other than those prescribed or required for medical reasons: Unable to respond Advance Directives: No Advance Directives Information Provided: No Advance Directives Date on File: 04/27/23 Do you have a plan to hurt others: No Plan Recently lost weight without trying: Unsure Patient : No Poor oral hygiene: Yes service: No Current occupational status: disabled Cognitive needs: Yes Hearing needs: No Vision needs: No Narrative Narrative: Miss Whitney Lucero is a 64 year old lady with PMH of HLD, hypothyroid, CVA, Down syndrome, dementia, Jorge L's who presented to the ED via EMS from her [place] [facility] with cough, SOB, hypoxia and lethargy for the last 2-3 days. She is alert and oriented, ambulatory at baseline. The Pt had outpatient viral testing and CXR done today. On arrival to the ER, her BP was 105/58, heart rate 64, respiratory rate 20, O2 sat 93% on 5 L NC. Temp 98.1? F. Laboratory data significant for WBC 17.4, BUN 29 (baseline), troponin 21.0, BNP 705.? Initial lactic acid 3.2.? VBG 7.38 51 100 31. UA negative for UTI.? Influenza, RSV, COVID 19? negative. Imaging:? CTA negative for PE but showing bilateral pneumonia with pulmonary edema. ED course:? The pt was given 1 L? LR, albumin, furosemide 40 mg, lorazepam, azithromycin 500 mg, ceftriaxone 1 g, DuoNeb, Solu-Medrol 60 mg. Sepsis suspected; bolus exclusion due to concern for volume overload.? She became hypotensive and was started on Levophed.? She became hypothermic; a Dez Hugger was placed. Meds Allergies Allergy/AdvReac Type Severity Reaction Status Date / Time Sulfa (Sulfonamide Allergy Mild HIVES Verified 08/24/24 12:37 Antibiotics) sulfamethoxazole Allergy Mild HIVES Verified 08/24/24 12:37 [From Bactrim] amoxicillin [Amoxicillin] Allergy Unknown HIVES Verified 08/24/24 12:37 Clindamycin HCl Allergy Unknown rash Verified 08/24/24 12:37 trimethoprim [From Bactrim] Allergy Unknown HIVES Verified 08/24/24 12:37 Active Medications: Current Medications Heparin Sodium (Porcine) (Heparin Sodium,Porcine 5,000 Unit/Ml Vial) 5,000 unit SUBCUT Q12H [facility] Last Admin: 08/24/24 21:26 Dose: 5,000 unit Norepinephrine Bitartrate (Levophed) 8 mg in 250 mls @ 0 mls/hr IVCONT .Q0M DANDY; Protocol Last Titration: 08/24/24 21:14 Dose: 0.07 mcg/kg/min, 5.17 mls/hr Home Medications ?Medication ?Instructions ?Recorded ?Confirmed ?Last Taken ?Type gabapentin 300 mg capsule 300 mg PO BID 01/10/21 08/24/24 Unknown History oxcarbazepine 300 mg tablet 300 mg PO BID 06/17/22 08/24/24 Unknown History oxcarbazepine 150 mg tablet 150 mg PO BID 07/31/22 08/24/24 Unknown History (Trileptal) acetaminophen 650 mg/20.3 mL oral 650 mg PO Q4H PRN fever or pain 12/11/23 08/24/24 Unknown History solution cetyl and stearate 1 appl topical MOTH 12/11/23 08/24/24 Unknown History alcohol-propylen glycol-sls topical cream (Cetaphil topical cream) ketoconazole 2 % topical cream 1 appl topical MOTH 12/11/23 08/24/24 Unknown History sodium fluoride 1.1 %-potassium 1 appl PO BID 12/11/23 08/24/24 Unknown History nitrate 5 % dental paste calcium 600 mg (as 1 tab PO BID@1600,199908/24/24 08/24/24 Unknown History carbonate)-vitamin D3 10 mcg (400 unit) tablet cholecalciferol (vitamin D3) 25 25 mcg PO DAILY 08/24/24 08/24/24 Unknown History mcg (1,000 unit) tablet levothyroxine 137 mcg tablet 137 mcg PO DAILY@0600 08/24/24 08/24/24 Unknown History (Synthroid) trazodone 50 mg tablet 50 mg PO BEDTIME PRN Sleep 08/24/24 08/24/24 Unknown History Physical Exam 2 Vital Signs: Vital Signs: Last Vital Signs Temp 97.6 F 08/24/24 22:00 Pulse 56 08/24/24 22:00 Resp 12 08/24/24 22:00 BP 87/42 L 08/24/24 22:00 Pulse Ox 91 L 08/24/24 22:00 O2 Del Method High Flow Nasal C annula 08/24/24 22:00 O2 Flow Rate 40 08/24/24 22:00 FiO2 40 08/24/24 22:00 Oxygen Flow Rate 5 08/24/24 12:35 BMI result Body Mass Index 18.8 Const: General: no acute distress Nutritional Appearance: thin L imitations: behavioral limitations (d/t down's syndrome. Pt is redirectable) HEENT: Head: Yes normocephalic and Yes atraumatic Ears: hearing grossly normal bilaterally General nose exam: Normal external nose present Mouth: mucous membranes dry (mouth, tongue, lips very dry. ) and tongue abnormal (macroglossia) Teeth and gingiva: caries and poor dentition Neck: Neck: Yes supple (no thyromegaly, trachea midline.) Carotids: normal carotid upstroke Resp: Effort & Inspection: symmetric chest movement Auscultation: rales bilateral in the lower lung pelayo Cardio: Jugular venous distension: no JVD Rate: regular rate Rhythm: r egular rhythm Heart sounds: no gallops, no murmurs and no rubs Peripheral pulses: Peripheral pulses 2+ throughout GI: Palpation (GI): Soft to palpation (nondistended.) and nontender Skin: General skin exam: no rashes or lesions noted Wounds: no wounds H air: normal Neuro: General: CN's II-XI intact bilaterally and other (lethargic but arousable. ) Speech: Abnormal speech present Extrem: General: Yes full ROM, Yes capillary refill normal and Yes no clubbing, cyanosis or edema Psych: Appearance: well kempt Speech and movement: No Clear speech present Results Labs 08/24/24 13:32 08/24/24 13:13 Labs: Laboratory Results - last 24 hr 08/24/24 08/24/24 08/24/24 13:13 13:32 15:48 MCV 107.2 H MCH 34.8 H MCHC 32.5 RDW 14.5 Plt Count 145 L MPV 9.7 Immature Gran % (Auto) 0.7 H Neut % (Auto) 84.2 H Lymph % (Auto) 10.3 L [place] % (Auto) 4.4 Eos % (Auto) 0.1 Baso % (Auto) 0.3 Lymph # (Auto) 1.8 [place] # (Auto) 0.8 Eos # (Auto) 0.0 Baso # (Auto) 0.1 Abs Immat Gran (auto) 0.12 H Absolute Neuts (auto) 14.6 H Absolute Nucleated RBC 0.000 Nucleated RBC % (auto) 0.0 Anion Gap 15 Estim Creat Clear Calc 31.2 Estimated GFR 49 Random Glucose 109 Lactic Acid 3.2 H* Lactic Acid F/U @ 2Hr Calcium 9.3 Phosphorus Magnesium 2.2 Total Bilirubin 0.4 Direct Bilirubin 0.1 AST 24 ALT 18 Alkaline Phosphatase 88 B-Natriuretic Peptide 705 H Total Protein 7.7 Albumin 3.5 Urine Color Urine Appearance Urine pH Ur Specific [place] Urine Protein Urine Glucose (UA) Urine Ketones Urine Blood Urine Nitrite Ur Leukocyte Esterase Urine RBC Urine WBC Ur Squamous Epith Cells Urine Bacteria Hyaline Casts 08/24/24 08/24/24 08/24/24 16:05 18:52 21:13 MCV MCH MCHC RDW Plt Count MPV Immature Gran % (Auto) Neut % (Auto) Lymph % (Auto) [place] % (Auto) Eos % (Auto) Baso % (Auto) Lymph # (Auto) [place] # (Auto) Eos # (Auto) Baso # (Auto) Abs Immat Gran (auto) Absolute Neuts (auto) Absolute Nucleated RBC Nucleated RBC % (auto) Anion Gap Estim Creat Clear Calc Estimated GFR Random Glucose Lactic Acid 3.8 H* Lactic Acid F/U @ 2Hr 3.3 H* Calcium Phosphorus 3.4 Magnesium Total Bilirubin Direct Bilirubin AST ALT Alkaline Phosphatase B-Natriuretic Peptide Total Protein Albumin Urine Color Yellow Urine Appearance Clear Urine pH 6.0 Ur Specific [place] 1.025 Urine Protein Negative Urine Glucose (UA) Negative Urine Ketones Negative Urine Blood Negative Urine Nitrite Negative Ur Leukocyte Esterase Small (1+) H Urine RBC 0-2 Urine WBC 11-20 H Ur Squamous Epith Cells 0-2 Urine Bacteria None Seen Hyaline Casts 0-2 Imaging Radiologist's Impressions: Impressions Chest CTA 08/24/24 13:58 IMPRESSION: 1. No evidence of pulmonary embolus. No evidence acute aortic syndrome. 2. Evaluation of lungs limited due to expiratory state and respiratory motion. There are bibasilar airspace consolidations consistent with bibasilar pneumonia. There is likely a degree of superimposed interstitial pulmonary edema. There are no effusions or pneumothorax. 3. There is moderate cardiomegaly. 4. There is mild anasarca of the soft tissues. Electronically signed by: Logan Singh MD 08/24/2024 02:[address] [facility] Assessment and Plan (1) Acute hypoxic respiratory failure: Status: Acute (2) Multifocal pneumonia: Status: Acute (3) Pulmonary edema: Qualifiers: Chronicity: acute Qualified Code(s): J81.0 - Acute pulmonary edema Status: Acute Plan 64 yo F with history of HLD, hypothyroid, CVA, Down syndrome, dementia, Jorge L's admitted with acute hypoxic respiratory failure d/t? bilateral pneumonia c/b?acute encephalopathy. Neuro: Acute encephalopathy Cardiac: Sepsis. hypothermia, leukocytosis, hypotension. Elevated BNP.? Bilateral pneumonia likely source. Fluid?bolus exclusion due to concern for volume overload;?received 1 L crystalloid,100 mL colloid. Levophed, cross- titrate to dopamine d/t? bradycardia. Wean as tolerated. Pulmonary: CTA negative for PE but showing bilateral pneumonia with pulmonary edema. Hi-Flow. Wean as able. Renal: ?underlying Jorge L?s.? Check TSH Endo: ?no acute issues GI: ?no acute issues ID: Sepsis. Bilateral pneumonia likely source. Cultures pending. Continue empiric antibiotics. Heme/Onc: ?No acute issues. Psych: No acute issues Prophylaxis: pneumatic hoses,? Heparin Diet: NPO Of note:? Patient?s guardian is her sister Karyna Suazo [phone].?Karyna requested that information be given to the patient?s caseworker intake at her [place] [facility], [facility], if she calls for an update. Patient's care was discussed in detail with Dr. Krishna.?She is aware of all the above as well as the plan of care for this patient. Total time managing care of this patient today: 60 minutes.
[2024-08-24] MEDS: DOPamine HCL/D5W 400 MG/250 ML PLAST..BAG 7.4 MG IVCONT (22:35)
[2024-08-24 23:16] LABS: Reflex Lactate? 2 Y
[2024-08-24] MEDS: propofoL 200 MG/20 ML VIAL 100 MG IVPUSH (23:24)
[2024-08-24] MEDS: Etomidate 20 MG/10 ML VIAL IVPUSH (23:39)
[2024-08-24] MEDS: Rocuronium Bromide 50 MG/5 ML VIAL 30 MG IVPUSH (23:41)
[2024-08-24] MEDS: propofoL 1,000 MG/100 ML VIAL 7.1 MG IVCONT (23:54)
--- NOTE | 2024-08-24 23:57 | W.PM.CCHP ---
Procedures Date of Service Date of Service: 08/24/24 Intubation Consent for Procedure: Elective - informed consent obtained (phone consent: Pt's guardian - Karyna Machado (sister)) Time out performed: Yes Sedative: etomidate (100) Mg given: 20 Paralytic: rocuronium Mg given: 30 Laryngoscope: fiber optic video scope ET tube size: 7 ET tube uncuffed: Yes Tube secured depth (cm): 24 Tube secured location: lips Tube placement confirmation: visualized tube passing through cords, equal breath sounds bilaterally, no breath sounds over epigastrium and confirmation by capnometry Patient tolerated procedure: well Intubation complications: difficult intubation (macroglossia)
[2024-08-25] VITALS (57 sets, daily range): BP systolic 50–169; BP diastolic 16–103; PULSE 44–77; RESP 14–20; TEMP 33–37.2; O2SAT 90–100; BMI 14.8; BMI 15.6
--- NOTE | 2024-08-25 | ECG_ITS ---
Test Reason : arrhythmia Blood Pressure : */* mmHG Vent. Rate : 61 BPM Atrial Rate : 53 BPM P-R Int : 248 ms QRS Dur : 126 ms QT Int : 488 ms P-R-T Axes : * -52 -19 degrees QTcB Int : 491 ms Sinus bradycardia with 1st degree A-V block with Premature atrial complexes Left axis deviation Left bundle branch block Abnormal ECG When compared with ECG of 24-Aug-2024 13:00, Premature atrial complexes are now Present OK interval has increased Referred By: Nesha Raines Electronically Signed By: ALESHIA CID
[2024-08-25 00:10] LABS: VBG Base Excess 5.1 mmol/L; VBG HCO3 31 mmol/L (22-26); VBG pCO2 51 mmHg; VBG pH 7.38 (7.32-7.43); VBG pO2 100 mmHg
[2024-08-25] MEDS: Rocuronium Bromide 50 MG/5 ML VIAL 30 MG IVPUSH (00:18)
[2024-08-25 00:21] LABS: Venous Blood Gas Refer to POC result
[2024-08-25 00:35] LABS: ~Lactic Acid-LAB USE ONLY 2.2 mmol/L (0.5-2.0)
[2024-08-25 01:22] LABS: TSH reflex Free T4 1.34 uIU/mL (0.32-4.0)
[2024-08-25] MEDS: cefTRIAXone sodium 1 GM VIAL IVPUSH (01:39)
[2024-08-25] MEDS: vancomycin HCL 1,000 MG in 0.9 % Sodium Chloride 250 ML 270 MG IV (01:39)
--- NOTE | 2024-08-25 01:58 | PM.CCN ---
Critical Care Event Note Summary Date of Service: 08/24/24 Code activated: No Narrative: This case had a high probability of a clinically significant, sudden, or life threatening deterioration of this patient's condition which required my full and direct attention, intervention and personal management. Critical Care Time (minutes): 60 Comment: At approx 11pm after arriving in the ICU, the patient was noted to be bradycardic down to the 30s sustaining, likely due to aspiration. She was lethargic with periods of apnea, rales auscultated at bilateral lung bases. Persistent productive cough noted. Levophed cross titrated to dopamine. Decision was made to intubate for airway protection. The patient?s guardian Karyna Suazo, who is her sister,? was updated on the patient?s condition by phone. Verbal consent was given for the intubation.
[2024-08-25] MEDS: propofoL 1,000 MG/100 ML VIAL 11.84 MG IVCONT ×3 (05:20→19:34)
[2024-08-25] MEDS: Pantoprazole Sodium 40 MG/10 ML VIAL IVPUSH (05:21)
[2024-08-25 05:48] LABS: VBG Base Excess 6.8 mmol/L; VBG HCO3 28 mmol/L (22-26); VBG pCO2 31 mmHg; VBG pH 7.57 (7.32-7.43); VBG pO2 105 mmHg
[2024-08-25 05:48] LABS: Venous Blood Gas Refer to POC result
--- NOTE | 2024-08-25 05:50 | PC.NURSE ---
Pt arrived to ICU at 2150. Pt has developmental disability?- oriented to name only. Drowsy, but restless when awake. HR 30-50s sinus yesica with 1st degree avb/bundle branch block on tele. BP stable with MAP > 65 on levophed at 0.07 mcg/kg/min. Order for dopamine gtt d/t bradycardia, started per protocol -? Per SALVAGE GRINDER cross titrate off levophed - see emar for titrations. Arrived on 15L oxymask, placed on HFNC by RT, maintaining spO2 >90%. Temp sensing?Bartholomew placed - draining clear yellow urine. Coccyx red and blanchable - foam applied. long termadult family home program manager?at bedside. 0 - Pt lethargic, HR dropping more frequently to 30s. Decision to intubate for airway protection per SALVAGE GRINDER. Propofol 100 mg IVP, Etomidate 20 mg IVP, and Rocuronium?30 mg IVP given for RSI. ETT #7.0, 24?@ lip. ET suctioned - thick olmstead, blood streaked secretions. On AC settings - see vent flow sheet. OG tube placed.?Cxr to confirm placement. Propofol gtt started and titrated per emar.?Pt adequately sedated and having vent?dyssynchrony?- SALVAGE GRINDER notified. Rocuronium 30 mg IVP ordered and administered with good effect.? Core temp 96.4 - ruslan hugger applied. Oral care provided and repositioned Q2H.?Safety measures in place.
[2024-08-25 06:01] LABS: MANUAL DIFF FLAG NO
[2024-08-25 06:04] LABS: Basophils Percent Auto 0.1 % (0-2); Hematocrit 37.2 % (37.0-47.0); Hemoglobin 12.6 g/dl (12.0-16.0); Imm Gran Abs Auto 0.07 X10*3/uL (0.00-0.03); Imm Gran Pct Auto 0.7 % (0.0-0.4); Lymphocytes Absolute Auto 0.8 X10*3/uL (1.2-4.9); Lymphocytes Percent Auto 7.9 % (20-40); Mean Corpuscular HGB Conc 33.9 g/dl (31.0-35.0); Mean Corpuscular Hemoglobin 34.5 pg (27.0-33.0); Mean Corpuscular Volume 101.9 fL (80.0-98.0); Mean Platelet Volume 10.1 fL (9.4-12.3); Monocytes Absolute Auto 0.3 X10*3/uL (0.1-1.2); Monocytes Percent Auto 2.7 % (2-11); Neutrophils Absolute Auto 8.8 x10*3/uL (2.0-8.3); Neutrophils Percent Auto 88.6 % (45-73); Platelet Count 162 X10*3/uL (160-400); Red Blood Count 3.65 X10*6/uL (4.20-5.50); Red Cell Distribution Width 13.8 % (11.0-16.0); White Blood Count 9.9 X10*3/uL (4.8-10.8)
[2024-08-25 06:30] LABS: Albumin Level 3.6 g/dL (3.5-5.0); Anion Gap 13 (12-20); Blood Urea Nitrogen 22 mg/dL (9-16); Calcium 8.9 mg/dL (8.4-10.2); Carbon Dioxide 25 mmol/L (22-29); Chloride 111 mmol/L (96-108); Creatinine Clr Calc Pharmacy 33.9; Estimated Glomerular Filt Rate > 60; Glucose Random 149 mg/dL (60-115); Magnesium 1.9 mg/dL (1.6-2.6); Potassium 3.2 mmol/L (3.3-5.1); Sodium 146 mmol/L (135-145)
--- NOTE | 2024-08-25 06:34 | PHA.PROG ---
Admission Date/Time: August 24, 2024 20:24 Indication: Respiratory Weight in k kg Adjusted body weight in Kg: [place] body weight in Kg: Obesity Dosing Indication % IBW: Serum Creatinine - Last 168 Hours 08/24/24 08/25/24 13:13 05:40 Creatinine 1.11 0.82 Estimated CrCl and GFR - Last 168 Hours 08/24/24 08/25/24 13:13 05:40 Estim Creat Clear Calc 31.2 33.9 Estimated GFR 49 > 60 Vancomycin Loading Dose: 1000mg Current Vancomycin Dosing Regimen: 750mg q24h Vancomycin Monitoring using AUC goal of 400 - 600 range with trough as surrogate marker: ~480mg/L Date and Time for next Vancomycin Level to be drawn: 08/26/2024 @0700 Pharmacist Comments on Vancomycin Plan: Pt is small and received a 31mg/kg loading dose. Will get random tomorrow before start of regimen to make sure it has cleared effectively before starting 750mg q24h Vancomycin dosing will take advantage of [employer] as a clinical decision support tool that uses Bayesian modeling to calculate individual patient's pharmacokinetic parameters and forecast the patient's drug concentration time course with the target goal AUC 24 range of 400 - 600 mg/L/hr.
[2024-08-25 06:59] LABS: Phosphorus 1.4 mg/dL (2.7-4.5)
[2024-08-25] MEDS: Heparin Sodium,Porcine 5,000 UNIT/ML VIAL 5000 UNIT SUBCUT (07:24)
[2024-08-25] MEDS: Chlorhexidine Gluc Oral Rinse 15 ML MOUTHWASH BUCCAL ×3 (07:24→20:23)
[2024-08-25] MEDS: Potassium Chloride Packet 20 MEQ PACKET 40 MEQ PO (07:25)
--- NOTE | 2024-08-25 07:56 | PM.CCPN ---
Subjective Subjective Date of Service: 08/25/24 Critical Care Time (minutes): 60 Physical Exam Vital Signs: Vital Signs: Last Vital Signs Temp 98.6 F 08/25/24 07:00 Pulse 56 08/25/24 07:00 Resp 20 08/25/24 07:00 BP 99/49 L 08/25/24 07:00 Pulse Ox 98 08/25/24 07:40 O2 Del Method Mechanical Ventil ation 08/25/24 07:00 O2 Flow Rate 40 08/24/24 22:59 FiO2 50 08/25/24 07:40 Oxygen Flow Rate 5 08/24/24 12:35 BMI result Body Mass Index 14.8 Const: Other: intubated, sedated; no appreciable spontaneous movements; no appreciable movements to noxious stimulus General: no acute distress HEENT: Head: Yes normal to inspection, Yes normocephalic and Yes atraumatic Eyes: General: appearance normal, both eyes and all related structures Neck: Neck: Yes normal visual inspection, Yes full ROM, Yes no meningeal signs, Yes trachea midline and Yes supple Chest: Chest palpation & inspection: normal inspection of the chest Resp: Other: no appreciable overt rales, rhonchi, wheezing Effort & Inspection: normal respiratory effort Cardio: Rate: bradycardic Rhythm: regular rhythm GI: Inspection: Yes normal to inspection, No Abdominal wall edema and No distended Palpation (GI): Soft to palpation, not firm, nontender, no guarding and not rigid Skin: General skin exam: no rashes or lesions noted Neuro: General: tone normal and no meningeal signs Extrem: Other: appreciable trace pitting edema to bilateral shins General: Yes normal to inspection, Yes full ROM and Yes capillary refill normal Psych: Other: unable to assess Objective Data Labs 08/25/24 05:40 08/25/24 05:40 Labs: Laboratory Results - last 24 hr 08/24/24 08/24/24 08/24/24 13:13 13:32 15:48 WBC 17.4 H RBC 3.91 L Hgb 13.6 Hct 41.9 MCV 107.2 H MCH 34.8 H MCHC 32.5 RDW 14.5 Plt Count 145 L MPV 9.7 Immature Gran % (Auto) 0.7 H Neut % (Auto) 84.2 H Lymph % (Auto) 10.3 L [place] % (Auto) 4.4 Eos % (Auto) 0.1 Baso % (Auto) 0.3 Lymph # (Auto) 1.8 [place] # (Auto) 0.8 Eos # (Auto) 0.0 Baso # (Auto) 0.1 Abs Immat Gran (auto) 0.12 H Absolute Neuts (auto) 14.6 H Absolute Nucleated RBC 0.000 Nucleated RBC % (auto) 0.0 VBG pH VBG pCO2 VBG pO2 VBG HCO3 VBG O2 Saturation VBG Base Excess Sodium 144 Potassium 4.6 Chloride 111 H Carbon Dioxide 23 Anion Gap 15 BUN 29 H Creatinine 1.11 Estim Creat Clear Calc 31.2 Estimated GFR 49 Random Glucose 109 Lactic Acid 3.2 H* Lactic Acid F/U @ 2Hr Lactic Acid F/U @ 4Hr Calcium 9.3 Phosphorus Magnesium 2.2 Total Bilirubin 0.4 Direct Bilirubin 0.1 AST 24 ALT 18 Alkaline Phosphatase 88 Troponin I High Sens 21.0 H D 17.9 H B-Natriuretic Peptide 705 H Total Protein 7.7 Albumin 3.5 TSH Urine Color Urine Appearance Urine pH Ur Specific Salol Urine Protein Urine Glucose (UA) Urine Ketones Urine Blood Urine Nitrite Ur Leukocyte Esterase Urine RBC Urine WBC Ur Squamous Epith Cells Urine Bacteria Hyaline Casts 08/24/24 08/24/24 08/24/24 16:05 18:52 21:13 WBC RBC Hgb Hct MCV MCH MCHC RDW Plt Count MPV Immature Gran % (Auto) Neut % (Auto) Lymph % (Auto) [place] % (Auto) Eos % (Auto) Baso % (Auto) Lymph # (Auto) [place] # (Auto) Eos # (Auto) Baso # (Auto) Abs Immat Gran (auto) Absolute Neuts (auto) Absolute Nucleated RBC Nucleated RBC % (auto) VBG pH VBG pCO2 VBG pO2 VBG HCO3 VBG O2 Saturation VBG Base Excess Sodium Potassium Chloride Carbon Dioxide Anion Gap BUN Creatinine Estim Creat Clear Calc Estimated GFR Random Glucose Lactic Acid 3.8 H* Lactic Acid F/U @ 2Hr 3.3 H* Lactic Acid F/U @ 4Hr Calcium Phosphorus 3.4 Magnesium Total Bilirubin Direct Bilirubin AST ALT Alkaline Phosphatase Troponin I High Sens B-Natriuretic Peptide Total Protein Albumin TSH 1.34 Urine Color Yellow Urine Appearance Clear Urine pH 6.0 Ur Specific [place] 1.025 Urine Protein Negative Urine Glucose (UA) Negative Urine Ketones Negative Urine Blood Negative Urine Nitrite Negative Ur Leukocyte Esterase Small (1+) H Urine RBC 0-2 Urine WBC 11-20 H Ur Squamous Epith Cells 0-2 Urine Bacteria None Seen Hyaline Casts 0-2 08/25/24 08/25/24 08/25/24 00:06 00:07 05:40 WBC 9.9 RBC 3.65 L Hgb 12.6 Hct 37.2 MCV 101.9 H D MCH 34.5 H MCHC 33.9 RDW 13.8 Plt Count 162 MPV 10.1 Immature Gran % (Auto) 0.7 H Neut % (Auto) 88.6 H Lymph % (Auto) 7.9 L [place] % (Auto) 2.7 Eos % (Auto) 0.0 Baso % (Auto) 0.1 Lymph # (Auto) 0.8 L [place] # (Auto) 0.3 Eos # (Auto) 0.0 Baso # (Auto) 0.0 Abs Immat Gran (auto) 0.07 H Absolute Neuts (auto) 8.8 H Absolute Nucleated RBC 0.000 Nucleated RBC % (auto) 0.0 VBG pH 7.38 VBG pCO2 51 VBG pO2 100 VBG HCO3 31 H VBG O2 Saturation 99.0 VBG Base Excess 5.1 Sodium 146 H Potassium 3.2 L D Chloride 111 H Carbon Dioxide 25 Anion Gap 13 BUN 22 H Creatinine 0.82 Estim Creat Clear Calc 33.9 Estimated GFR > 60 Random Glucose 149 H Lactic Acid Lactic Acid F/U @ 2Hr Lactic Acid F/U @ 4Hr 2.2 H* Calcium 8.9 Phosphorus 1.4 L Magnesium 1.9 Total Bilirubin Direct Bilirubin AST ALT Alkaline Phosphatase Troponin I High Sens B-Natriuretic Peptide Total Protein Albumin 3.6 TSH Urine Color Urine Appearance Urine pH Ur Specific Salol Urine Protein Urine Glucose (UA) Urine Ketones Urine Blood Urine Nitrite Ur Leukocyte Esterase Urine RBC Urine WBC Ur Squamous Epith Cells Urine Bacteria Hyaline Casts 08/25/24 05:45 WBC RBC Hgb Hct MCV MCH MCHC RDW Plt Count MPV Immature Gran % (Auto) Neut % (Auto) Lymph % (Auto) [place] % (Auto) Eos % (Auto) Baso % (Auto) Lymph # (Auto) [place] # (Auto) Eos # (Auto) Baso # (Auto) Abs Immat Gran (auto) Absolute Neuts (auto) Absolute Nucleated RBC Nucleated RBC % (auto) VBG pH 7.57 H VBG pCO2 31 VBG pO2 105 VBG HCO3 28 H VBG O2 Saturation 99.0 VBG Base Excess 6.8 Sodium Potassium Chloride Carbon Dioxide Anion Gap BUN Creatinine Estim Creat Clear Calc Estimated GFR Random Glucose Lactic Acid Lactic Acid F/U @ 2Hr Lactic Acid F/U @ 4Hr Calcium Phosphorus Magnesium Total Bilirubin Direct Bilirubin AST ALT Alkaline Phosphatase Troponin I High Sens B-Natriuretic Peptide Total Protein Albumin TSH Urine Color Urine Appearance Urine pH Ur Specific Salol Urine Protein Urine Glucose (UA) Urine Ketones Urine Blood Urine Nitrite Ur Leukocyte Esterase Urine RBC Urine WBC Ur Squamous Epith Cells Urine Bacteria Hyaline Casts Progress Note: A&P Assessment and plan (1) Acute hypoxic respiratory failure: Status: Acute (2) Pneumonia: Status: Acute (3) Pulmonary edema: Status: Acute Plan Patient is a 64 Y F w/ hyperlipidemia c/b prior CVA, hasimoto's thyroiditis c/b hypothyoridism, trisomy 21 c/b dementia presenting from [facility] on 08/24 w/ cough, dyspnea, found to have CT C c/f pneumonia and pulmonary edema; emergency department course c/b hypoxic respiratory failure and shock, intubated 08/24 PM N: intubated, sedated w/ propofol gtt, wean as tolerated; trisomy 21 c/b dementia CV: shock, c/f septic shock; bradycardia on dopamine gtt, wean as tolerated R: acute hypoxic respiratory failure, likely mult-factorial, d/t pneumonia, pulmonary edema, intubated 08/25, wean as tolerated GI: NPO : no acute issues; to closely monitor renal indices, electrolytes H: no acute issues; chemical DVT prophylaxis w/ enoxaparin SQ ID: c/f pneumonia, on vancomycin/cefepime/azithromycin E: hypothyroidism on home levothyroxine P: no acute issues Quality Stroke Does the patient have a stroke diagnosis?: No VTE Prior VTE?: No VTE Risk Level:: Medical - moderate - high VTE Device Contraindication: N/A - Device Ordered VTE Drug Contraindication: N/A - Med Ordered
[2024-08-25] MEDS: Magnesium Sulfate/D5W 1 GM/100 ML PIGGYBACK IV (08:08)
[2024-08-25] MEDS: Potassium Phosphate/NS 15 MMOL/250 ML PLAST..BAG 62.5 MMOL IV ×2 (08:08→12:23)
[2024-08-25] MEDS: Aspirin 81 MG TAB.CHEW PO (08:12)
[2024-08-25] MEDS: Furosemide 20 MG/2 ML VIAL IVPUSH (08:24)
[2024-08-25] MEDS: cefEPime HCl/D5W 2 GM/50 ML PIGGYBACK IV ×2 (08:25→20:24)
[2024-08-25] MEDS: Azithromycin 500 MG TABLET PO (13:06)
--- NOTE | 2024-08-25 14:27 | MHC.CM.PN ---
Pt intubated and unable to participate in CM assessment: information obtained from EMR, pt's sister/HCP and longterm staff in with pt. Pt resides at a [facility] - no services or DME. She requires cueing for ADL completion and is on a puree and thickened liquid diet. Pt's sister serve as coguardians. Pt will return to home when medically cleared; longterm will transport and will bring in forms necessary for MD to complete prior to pt's discharge. Long Term RN Director is Marissa [phone]. CM to follow for finalization of d/c needs: Guardianship on file, IMM in chart
[2024-08-25] MEDS: DOPamine HCL/D5W 400 MG/250 ML PLAST..BAG 22.2 MG IVCONT (16:18)
[2024-08-26] VITALS (40 sets, daily range): BP systolic 73–137; BP diastolic 41–73; PULSE 44–82; RESP 17–21; TEMP 34.8–37.7; O2SAT 90–99; BMI 15.6
[2024-08-26] MEDS: propofoL 1,000 MG/100 ML VIAL 11.84 MG IVCONT ×2 (01:18→07:47)
[2024-08-26] MEDS: DOPamine HCL/D5W 400 MG/250 ML PLAST..BAG 22.2 MG IVCONT ×2 (02:34→13:48)
[2024-08-26 05:24] LABS: Venous Blood Gas Refer to POC result
[2024-08-26 05:27] LABS: VBG Base Excess 5.3 mmol/L; VBG HCO3 26 mmol/L (22-26); VBG pCO2 29 mmHg; VBG pH 7.56 (7.32-7.43); VBG pO2 77 mmHg
[2024-08-26 05:40] LABS: MANUAL DIFF FLAG NO
[2024-08-26 05:43] LABS: Basophils Absolute Auto 0.1 X10*3/uL (0.0-0.2); Basophils Percent Auto 0.5 % (0-2); Eosinophils Percent Auto 0.2 % (0-4); Hematocrit 40.2 % (37.0-47.0); Hemoglobin 13.4 g/dl (12.0-16.0); Imm Gran Abs Auto 0.03 X10*3/uL (0.00-0.03); Imm Gran Pct Auto 0.3 % (0.0-0.4); Mean Corpuscular HGB Conc 33.3 g/dl (31.0-35.0); Mean Corpuscular Hemoglobin 33.8 pg (27.0-33.0); Mean Corpuscular Volume 101.5 fL (80.0-98.0); Mean Platelet Volume 9.7 fL (9.4-12.3); Monocytes Absolute Auto 0.3 X10*3/uL (0.1-1.2); Neutrophils Absolute Auto 7.2 x10*3/uL (2.0-8.3); Platelet Count 167 X10*3/uL (160-400); Red Blood Count 3.96 X10*6/uL (4.20-5.50); Red Cell Distribution Width 14.2 % (11.0-16.0); White Blood Count 9.6 X10*3/uL (4.8-10.8)
[2024-08-26] MEDS: Levothyroxine Sodium 100 MCG/5 ML VIAL 75 MCG IVPUSH (05:43)
[2024-08-26] MEDS: Pantoprazole Sodium 40 MG/10 ML VIAL IVPUSH (05:43)
[2024-08-26 05:58] LABS: Anion Gap 14 (12-20); Blood Urea Nitrogen 20 mg/dL (9-16); Calcium 8.6 mg/dL (8.4-10.2); Carbon Dioxide 23 mmol/L (22-29); Chloride 111 mmol/L (96-108); Creatinine Clr Calc Pharmacy 36.6; Estimated Glomerular Filt Rate > 60; Glucose Random 93 mg/dL (60-115); Magnesium 2.1 mg/dL (1.6-2.6); Phosphorus 2.4 mg/dL (2.7-4.5); Potassium 3.6 mmol/L (3.3-5.1); Sodium 144 mmol/L (135-145)
--- NOTE | 2024-08-26 06:34 | PC.NURSE ---
Assumed care at 1900, pt intubated and sedated. RASS -3 on propofol at 50 mcg/kg/min. On AC settings - see vent flowsheet. Sinus yesica on tele HR 40-50s, dropping to 30s at times. Maintaining?MAPs >65. On dopamine at 15 mcg/kg/min - see emar for titrations. Titrated off epi gtt per RECYCLING PROGRAM MANAGER - see emar. Oral care provided, repositioned?Q2H. Safety measures in place.
--- NOTE | 2024-08-26 07:41 | P.CDIM_ITS ---
PROVIDER RESPONSE TEXT: To clarify, the appropriate diagnosis supported by the clinical indicators: Aspiration Pneumonitis: saliva QUERY TEXT: PHYSICIAN'S DOCUMENTATION REQUEST Date of Query: 08/25/2024 08:28 AM EST Patient Name: Whitney Lucero Admit Date: 08/25/2024 Dear Keisha Krishna MD, A review of the medical record indicates additional documentation may be needed. Please review below and update the documentation accordingly. Clinical Indicators: ICU progress note dated 08/25 - At approx 11pm patient was noted to be bradycardic down to the 30's wells staining, likely due to Aspiration. She was lethargic with periods of apnea, rales auscultated at bilateral franki g bases. Intubated on vent. Based on the above, could you clarify in the Progress Notes further information regarding the noted A spiration, if known: Aspiration Pneumonia Please indicate substance such as food or vomitus, oils, or other solids or liquids Aspiration Pneumonitis Please indicate substance such as foot or vomitus, gastric secretions etc. Other specifics Other (explain) Clinically unable to determine (explain) Thank you, Colleen Beckford, CCS, CDIS Use of terms such as suspected, likely, concern for, or probable (associated with a specific diagnosi s that is being evaluated, monitored, or treated as if it exists) are acceptable and can be coded in the inpatient se tting, when documented at the time of discharge. Please use your independent medical judgment in providing your response. THIS QUERY IS PART OF THE PERMANENT MEDICAL RECORD
--- NOTE | 2024-08-26 07:41 | P.CDIM_ITS ---
PROVIDER RESPONSE TEXT: To clarify, the appropriate diagnosis supported by the clinical indicators: Underweight QUERY TEXT: PHYSICIAN'S DOCUMENTATION REQUEST Date of Query: 08/25/2024 09:47 AM EST Patient Name: Whitney Lucero Admit Date: 08/25/2024 Dear Keisha Krishna MD, A review of the medical record indicates additional documentation may be needed. Please review below and update the documentation accordingly. Clinical Indicators: Height: 4 ft 9in Weight: 31kg BMI: 14.8 Other Clinical Notes Supporting Significance of the BMI: Clinical nutrition notes Underweight. Significant wt loss x 7 months with usual body weight approx 41kg. If possible, please provide an associated diagnosis related to the abnormal BMI, such as: Underweight Cachexia Anorexia Other (explain) Clinically unable to determine (explain) Thank you, Colleen Beckford, CCS, CDIS Use of terms such as suspected, likely, concern for, or probable (associated with a specific diagnosi s that is being evaluated, monitored, or treated as if it exists) are acceptable and can be coded in the inpatient se tting, when documented at the time of discharge. Please use your independent medical judgment in providing your response. THIS QUERY IS PART OF THE PERMANENT MEDICAL RECORD
--- NOTE | 2024-08-26 07:42 | PM.CCPN ---
Subjective Subjective Date of Service: 08/26/24 Interval History: no significant overnight events Critical Care Time (minutes): 60 Physical Exam Vital Signs: Vital Signs: Last Vital Signs Temp 97.9 F 08/26/24 07:00 Pulse 52 08/26/24 07:00 Resp 20 08/26/24 07:00 BP 123/66 08/26/24 07:00 Pulse Ox 97 08/26/24 07:31 O2 Del Method Mechanical Ventil ation 08/26/24 07:00 O2 Flow Rate 40 08/24/24 22:59 FiO2 50 08/26/24 07:31 Oxygen Flow Rate 5 08/24/24 12:35 BMI result Body Mass Index 15.6 Const: Other: intubated, sedated; no appreciable spontaneous movements General: no acute distress HEENT: Head: Yes normal to inspection, Yes normocephalic and Yes atraumatic Eyes: General: appearance normal, both eyes and all related structures Neck: Neck: Yes normal visual inspection, Yes full ROM, Yes no meningeal signs, Yes trachea midline and Yes supple Chest: Chest palpation & inspection: normal inspection of the chest Resp: Other: no appreciable overt rales, rhonchi, wheezing Effort & Inspection: normal respiratory effort Cardio: Rate: bradycardic Rhythm: regular rhythm GI: Inspection: Yes normal to inspection, No Abdominal wall edema and No distended Palpation (GI): Soft to palpation, not firm, nontender, no guarding and not rigid Skin: General skin exam: no rashes or lesions noted Neuro: General: tone normal and no meningeal signs Extrem: Other: appreciable 1+ pitting edema to bilateral shins General: Yes normal to inspection, Yes full ROM and Yes capillary refill normal Psych: Other: unable to assess Objective Data Labs 08/26/24 05:13 08/26/24 05:13 Labs: Laboratory Results - last 24 hr 08/26/24 08/26/24 05:13 05:22 WBC 9.6 RBC 3.96 L Hgb 13.4 Hct 40.2 MCV 101.5 H MCH 33.8 H MCHC 33.3 RDW 14.2 Plt Count 167 MPV 9.7 Immature Gran % (Auto) 0.3 Neut % (Auto) 75.0 H Lymph % (Auto) 21.0 [place] % (Auto) 3.0 Eos % (Auto) 0.2 Baso % (Auto) 0.5 Lymph # (Auto) 2.0 [place] # (Auto) 0.3 Eos # (Auto) 0.0 Baso # (Auto) 0.1 Abs Immat Gran (auto) 0.03 Absolute Neuts (auto) 7.2 Absolute Nucleated RBC 0.000 Nucleated RBC % (auto) 0.0 VBG pH 7.56 H VBG pCO2 29 VBG pO2 77 VBG HCO3 26 VBG O2 Saturation 99.0 VBG Base Excess 5.3 Sodium 144 Potassium 3.6 Chloride 111 H Carbon Dioxide 23 Anion Gap 14 BUN 20 H Creatinine 0.80 Estim Creat Clear Calc 36.6 Estimated GFR > 60 Random Glucose 93 Calcium 8.6 Phosphorus 2.4 L Magnesium 2.1 Microbiology Microbiology Results: Microbiology 08/24/24 13:13 Blood - Venous Blood Culture - Preliminary No growth after 24 hours. 08/24/24 13:13 Blood - Venous Blood Culture - Preliminary No growth after 24 hours. 08/24/24 Unknown Urine clean catch - Clean Catch Midstream Urine Culture - Preliminary No growth to date. Progress Note: A&P Assessment and plan (1) Aspiration pneumonia: Status: Acute (2) Acute hypoxic respiratory failure: Status: Acute Plan Patient is a 64 Y F w/ hyperlipidemia c/b prior CVA, hasimoto's thyroiditis c/b hypothyoridism, trisomy 21 c/b dementia presenting from [facility] on 08/[facility] w/ cough, dyspnea, found to have CT C c/f pneumonia and pulmonary edema; emergency department course c/b hypoxic respiratory failure and shock, intubated 08/24 PM N: intubated, sedated w/ propofol gtt, wean as tolerated; trisomy 21 c/b dementia CV: shock, c/f septic shock; bradycardia on dopamine gtt, wean as tolerated R: acute hypoxic respiratory failure, likely multi-factorial, d/t aspiration pneumonia, pulmonary edema, intubated 08/25, wean as tolerated GI: NPO; of note, sister reports history of aspiration : no acute issues; to closely monitor renal indices, electrolytes H: no acute issues; chemical DVT prophylaxis w/ enoxaparin SQ ID: c/f pneumonia, on vancomycin/cefepime/azithromycin E: hypothyroidism on home levothyroxine P: no acute issues Quality Stroke Does the patient have a stroke diagnosis?: No VTE Prior VTE?: No VTE Risk Level:: Medical - moderate - high VTE Device Contraindication: N/A - Device Ordered VTE Drug Contraindication: N/A - Med Ordered
[2024-08-26] MEDS: Potassium Phosphate/NS 15 MMOL/250 ML PLAST..BAG 62.5 MMOL IV (07:57)
[2024-08-26 07:59] LABS: Vancomycin Random 5.2 mcg/mL (15-20)
[2024-08-26] MEDS: Furosemide 20 MG/2 ML VIAL IVPUSH ×2 (08:00→17:17)
[2024-08-26] MEDS: Aspirin 81 MG TAB.CHEW PO (08:00)
[2024-08-26] MEDS: Enoxaparin Sodium 40 MG/0.4 ML SYRINGE SUBCUT (08:00)
[2024-08-26] MEDS: Chlorhexidine Gluc Oral Rinse 15 ML MOUTHWASH BUCCAL (08:01)
[2024-08-26] MEDS: cefEPime HCl/D5W 2 GM/50 ML PIGGYBACK IV ×2 (08:01→20:31)
--- NOTE | 2024-08-26 08:10 | HE.PHANOTE ---
RE: bhakti Changed dose to 500mg Q12H with predicted trough of 15.8mg/L, AUC of 494 mg/L. Next level to be drawn 08/27 @0700
[2024-08-26] MEDS: vancomycin HCL 500 MG in 0.9 % Sodium Chloride 100 ML 110 MG IV ×2 (09:08→20:35)
--- NOTE | 2024-08-26 10:37 | MHC.CLN ---
NUTRITION PATIENT IS INTUBATED. SEDATION CURRENTLY ON HOLD. BMI=15.6, UNDERWEIGHT, SHOWING SIGNIFICANT WEIGHT LOSS X 7 MONTHS WITH USUAL BODY WEIGHT APPROX 41 KG. MILD DEPLETION OF BODY FAT NOTED WITH RIB CAGE. QUALIFIES MODERATELY MALNOURISHED IN THE CONTEXT OF CHRONIC ILLNESS. RD FOLLOWING FOR NUTRITION SUPPORT AND PLAN OF CARE. SEE CLINICAL NUTRITION ASESSMENT.
[2024-08-26] MEDS: Azithromycin 500 MG in 0.9 % Sodium Chloride 250 ML 125 MG IV (14:24)
--- NOTE | 2024-08-26 14:41 | MHC.CM.PN ---
Pt extubated and on n/c O2. Pt from a [facility] and will return when medically cleared. Pt's sister/guardian and snf staff in to visit today: [facility] to transport. CM to follow
--- NOTE | 2024-08-26 18:10 | PC.NURSE ---
Patient extubated to [place] at 1030. Unable to titrate dopamine gtt down - MD aware. Care ongoing.
[2024-08-26] MEDS: 0.9 % Sodium Chloride Flush 3 ML SYRINGE IVFLUSH (20:36)
[2024-08-26] MEDS: DOPamine HCL/D5W 400 MG/250 ML PLAST..BAG 25.9 MG IVCONT (22:53)
[2024-08-27] VITALS (47 sets, daily range): BP systolic 57–161; BP diastolic 30–88; PULSE 38–122; RESP 13–25; TEMP 36.5–37.7; O2SAT 86–99; BMI 15.6
[2024-08-27] MEDS: Levothyroxine Sodium 100 MCG/5 ML VIAL 75 MCG IVPUSH (04:54)
--- NOTE | 2024-08-27 05:05 | PC.NURSE ---
Upon initial assessment at 1999- pt alert, difficult to assess orientation but near baseline per group leader wafer polishing at bedside. Afebrile. NSR/SB on tele, HR 50-60s. Dopmaine gtt infusing per SEP, attempted but unable to titrate down d/t HR dropping < 60 and MAP < 65. Oxygen titrated up to 5L NC to maintain SpO2 > 92%. Remains NPO pending speech eval. No BM. Urinary catheter in place, UOP approx 30-50 mL/hr. Skin overall intact. Repositioned in bed q2hr with pillows. Bed locked in lowest position.
[2024-08-27 06:55] LABS: MANUAL DIFF FLAG NO
[2024-08-27 07:01] LABS: Basophils Absolute Auto 0.1 X10*3/uL (0.0-0.2); Basophils Percent Auto 0.7 % (0-2); Eosinophils Absolute Auto 0.1 X10*3/uL (0.0-0.4); Eosinophils Percent Auto 2.1 % (0-4); Hematocrit 44.7 % (37.0-47.0); Hemoglobin 14.9 g/dl (12.0-16.0); Imm Gran Abs Auto 0.03 X10*3/uL (0.00-0.03); Imm Gran Pct Auto 0.4 % (0.0-0.4); Lymphocytes Absolute Auto 1.1 X10*3/uL (1.2-4.9); Lymphocytes Percent Auto 15.6 % (20-40); Mean Corpuscular HGB Conc 33.3 g/dl (31.0-35.0); Mean Corpuscular Hemoglobin 33.9 pg (27.0-33.0); Mean Corpuscular Volume 101.6 fL (80.0-98.0); Mean Platelet Volume 9.6 fL (9.4-12.3); Monocytes Absolute Auto 0.5 X10*3/uL (0.1-1.2); Monocytes Percent Auto 7.9 % (2-11); Neutrophils Percent Auto 73.3 % (45-73); Platelet Count 149 X10*3/uL (160-400); Red Cell Distribution Width 13.5 % (11.0-16.0); White Blood Count 6.8 X10*3/uL (4.8-10.8)
[2024-08-27 07:12] LABS: Vancomycin Trough 10.8 mcg/mL (10.0-20.0)
[2024-08-27] MEDS: DOPamine HCL/D5W 400 MG/250 ML PLAST..BAG 25.9 MG IVCONT (07:13)
[2024-08-27 07:15] LABS: Albumin Level 3.7 g/dL (3.5-5.0); Anion Gap 15 (12-20); Blood Urea Nitrogen 21 mg/dL (9-16); Calcium 9.2 mg/dL (8.4-10.2); Carbon Dioxide 25 mmol/L (22-29); Chloride 105 mmol/L (96-108); Creatinine Clr Calc Pharmacy 37.1; Estimated Glomerular Filt Rate > 60; Glucose Random 112 mg/dL (60-115); Magnesium 2.3 mg/dL (1.6-2.6); Phosphorus 3.4 mg/dL (2.7-4.5); Potassium 3.4 mmol/L (3.3-5.1); Sodium 142 mmol/L (135-145)
[2024-08-27] MEDS: 0.9 % Sodium Chloride Flush 3 ML SYRINGE IVFLUSH ×2 (07:15→15:51)
--- NOTE | 2024-08-27 08:23 | PM.CCPN ---
Subjective Subjective Date of Service: 08/27/24 Interval History: no significant overnight events Critical Care Time (minutes): 60 Physical Exam Vital Signs: Vital Signs: Last Vital Signs Temp 99.1 F 08/27/24 08:00 Pulse 57 08/27/24 08:00 Resp 15 08/27/24 08:00 BP 100/65 08/27/24 08:00 Pulse Ox 92 08/27/24 08:00 O2 Del Method Nasal Cannula 08/27/24 08:00 O2 Flow Rate 5 08/27/24 08:00 FiO2 50 08/26/24 09:00 Oxygen Flow Rate 3 08/26/24 22:47 BMI result Body Mass Index 15.6 Const: General: cooperative, healthy appearing, comfortable, no acute distress, well developed, alert, awake and Physically active HEENT: Head: Yes normal to inspection, Yes normocephalic and Yes atraumatic Eyes: General: appearance normal, both eyes and all related structures Neck: Neck: Yes normal visual inspection, Yes full ROM, Yes no meningeal signs, Yes trachea midline and Yes supple Chest: Chest palpation & inspection: normal inspection of the chest Resp: Other: no appreciable overt rales, rhonchi, wheezing Effort & Inspection: normal respiratory effort Cardio: Rate: bradycardic Rhythm: regular rhythm GI: Inspection: Yes normal to inspection, No Abdominal wall edema and No distended Palpation (GI): Soft to palpation, not firm, nontender, no guarding and not rigid Skin: General skin exam: no rashes or lesions noted Neuro: General: tone normal, moves all extremities, no meningeal signs and no focal motor deficits Extrem: Other: some appreciable non-pitting edema to bilateral shins General: Yes normal to inspection, Yes full ROM and Yes capillary refill normal Psych: Appearance: grossly normal Objective Data Labs 08/27/24 06:47 08/27/24 06:47 Labs: Laboratory Results - last 24 hr 08/27/24 06:47 WBC 6.8 RBC 4.40 Hgb 14.9 Hct 44.7 MCV 101.6 H MCH 33.9 H MCHC 33.3 RDW 13.5 Plt Count 149 L MPV 9.6 Immature Gran % (Auto) 0.4 Neut % (Auto) 73.3 H Lymph % (Auto) 15.6 L [place] % (Auto) 7.9 Eos % (Auto) 2.1 Baso % (Auto) 0.7 Lymph # (Auto) 1.1 L [place] # (Auto) 0.5 Eos # (Auto) 0.1 Baso # (Auto) 0.1 Abs Immat Gran (auto) 0.03 Absolute Neuts (auto) 5.0 Absolute Nucleated RBC 0.000 Nucleated RBC % (auto) 0.0 Sodium 142 Potassium 3.4 Chloride 105 Carbon Dioxide 25 Anion Gap 15 BUN 21 H Creatinine 0.79 Estim Creat Clear Calc 37.1 Estimated GFR > 60 Random Glucose 112 Calcium 9.2 D Phosphorus 3.4 Magnesium 2.3 Albumin 3.7 Vancomycin Trough 10.8 Microbiology Microbiology Results: Microbiology 08/24/24 13:13 Blood - Venous Blood Culture - Preliminary No growth after 48 hours. 08/24/24 13:13 Blood - Venous Blood Culture - Preliminary No growth after 48 hours. 08/24/24 Unknown Urine clean catch - Clean Catch Midstream Urine Culture - Final No growth. Progress Note: A&P Assessment and plan (1) Acute hypoxic respiratory failure: Status: Acute (2) Aspiration pneumonia: Status: Acute (3) Pulmonary edema: Status: Acute Plan Patient is a 64 Y F w/ hyperlipidemia c/b prior CVA, hasimoto's thyroiditis c/b hypothyoridism, trisomy 21 c/b dementia presenting from [facility] w/ cough, dyspnea, found to have CT C c/f pneumonia and pulmonary edema; emergency department course c/b hypoxic respiratory failure and shock, intubated 08/24 PM N: no acute issues; trisomy 21 c/b dementia, appears at baseline per family CV: shock, c/f septic shock; bradycardia on dopamine gtt, wean as tolerated R: acute hypoxic respiratory failure, likely multi-factorial, d/t aspiration pneumonia, pulmonary edema, intubated 08/25, extubated 08/26, 5L NC, wean as tolerated GI: NPO; of note, sister reports history of aspiration; to follow-up speech/swallow evaluation : no acute issues; diuresis as tolerated; to closely monitor renal indices, electrolytes H: no acute issues; chemical DVT prophylaxis w/ enoxaparin SQ ID: c/f pneumonia, on vancomycin/cefepime/azithromycin E: hypothyroidism on home levothyroxine P: no acute issues Quality Stroke Does the patient have a stroke diagnosis?: No VTE Prior VTE?: No VTE Risk Level:: Medical - moderate - high VTE Device Contraindication: N/A - Device Ordered VTE Drug Contraindication: N/A - Med Ordered
[2024-08-27] MEDS: Furosemide 20 MG/2 ML VIAL 10 MG IVPUSH ×2 (09:01→17:23)
[2024-08-27] MEDS: cefEPime HCl/D5W 2 GM/50 ML PIGGYBACK IV ×2 (09:04→20:40)
[2024-08-27] MEDS: Enoxaparin Sodium 40 MG/0.4 ML SYRINGE SUBCUT (09:05)
[2024-08-27] MEDS: vancomycin HCL 500 MG in 0.9 % Sodium Chloride 100 ML 110 MG IV ×2 (09:41→20:40)
[2024-08-27 10:42] LABS: Cortisol Random 16.1 ug/dL
--- NOTE | 2024-08-27 11:32 | MHC.SL.SWA ---
Speech Pathologist Impression: Baseline oropharyngeal dysphagia Risk of Aspiration Due to: Reduced Cognition Weak Cough Hx of dysphagia Hx of PNA Dysphasia Diet Status: Patient comes from a senior care. At baseline she eats a pureed diet with nectar thick liquids. Per staff, pt has had MBSS with [facility]. Liquid Consistency and Strategies for Safe Swallow: Liquid Intake Recommendation: NPO Liquid Intake Strategies: Solid Food Consistency: Dietary Recommendations: NPO Additional Modifications to Solid Foods: Oral Medication Intake: NPO Please contact the pharmacy regarding appropriate crushable or liquid drug formulations that are available whenever modified delivery is recommended. Compensatory Strategies and Precautions to be Taken for Safe Swallow: Supervision While Eating and Drinking for Safe Swallow: PO with ATTENDING PHYSICIAN Foods to Avoid: Swallowing Recommended Treatments: Compens. Strategy Educat. Recommendation for Speech: Inpatient Speech Therapy Comment: Cough on all trials, ATTENDING PHYSICIAN to re-assess daily, anticipate resumption of PO baseline diet within a day or two. Frequency/Duration: Daily M-F Date Range for Service Req: Timeline to reassess: Special Population Paraprofessional Clinican/Clinical Fellow: No Supervisory Statement: I have reviewed and agree with the student/clinical fellow's documentation: N/A Speech Language Pathologist: Mattie Mann M.S., CCC-ATTENDING PHYSICIAN
[2024-08-27] MEDS: DOPamine HCL/D5W 400 MG/250 ML PLAST..BAG 29.6 MG IVCONT (15:49)
[2024-08-27] MEDS: Azithromycin 500 MG in 0.9 % Sodium Chloride 250 ML 125 MG IV (15:50)
[2024-08-27] MEDS: Norepinephrine Bitartrate/D5W 8 MG/250 ML PLAST..BAG 3.07 MG IVCONT (17:19)
[2024-08-27] MEDS: Lactated Ringers 1,000 ML 999 ML IV (18:30)
--- NOTE | 2024-08-27 19:13 | PC.NURSE ---
Patient Alert, minimally verbal at baseline, smiles and winks, calm, pulling at NC this evening regrettable. Dopamine titrated up to 20mcg/hr for decreasing BP. HR elevated 120's and Provider aware, ordered patient be titrated to Levophed, on titration patient became Hypotensive, 1L LR bolus ordered and started. Urine output decreased to 15ml for 3 hours, but increased with Lasix small BM noted this shift
[2024-08-28] VITALS (31 sets, daily range): BP systolic 66–154; BP diastolic 29–88; PULSE 53–65; RESP 13–21; TEMP 37.2–37.7; O2SAT 5–97; BMI 15.6
[2024-08-28] MEDS: DOPamine HCL/D5W 400 MG/250 ML PLAST..BAG 14.8 MG IVCONT ×2 (05:50→19:29)
[2024-08-28] MEDS: Levothyroxine Sodium 100 MCG/5 ML VIAL 75 MCG IVPUSH (05:50)
[2024-08-28 05:59] LABS: MANUAL DIFF FLAG NO
[2024-08-28 06:15] LABS: Lactic Acid 0.7 mmol/L (0.5-2.0)
[2024-08-28 06:16] LABS: Anion Gap 13 (12-20); Blood Urea Nitrogen 23 mg/dL (9-16); Calcium 8.6 mg/dL (8.4-10.2); Carbon Dioxide 26 mmol/L (22-29); Chloride 106 mmol/L (96-108); Creatinine Clr Calc Pharmacy 40.7; Estimated Glomerular Filt Rate > 60; Glucose Random 118 mg/dL (60-115); Magnesium 2.1 mg/dL (1.6-2.6); Potassium 3.5 mmol/L (3.3-5.1); Sodium 141 mmol/L (135-145)
[2024-08-28 06:35] LABS: Basophils Absolute Auto 0.1 X10*3/uL (0.0-0.2); Eosinophils Absolute Auto 0.2 X10*3/uL (0.0-0.4); Eosinophils Percent Auto 2.7 % (0-4); Hemoglobin 13.9 g/dl (12.0-16.0); Imm Gran Abs Auto 0.05 X10*3/uL (0.00-0.03); Imm Gran Pct Auto 0.7 % (0.0-0.4); Lymphocytes Percent Auto 15.1 % (20-40); Mean Corpuscular HGB Conc 33.1 g/dl (31.0-35.0); Mean Corpuscular Hemoglobin 33.9 pg (27.0-33.0); Mean Corpuscular Volume 102.4 fL (80.0-98.0); Mean Platelet Volume 9.5 fL (9.4-12.3); Monocytes Absolute Auto 0.5 X10*3/uL (0.1-1.2); Monocytes Percent Auto 7.9 % (2-11); Neutrophils Absolute Auto 4.9 x10*3/uL (2.0-8.3); Neutrophils Percent Auto 72.6 % (45-73); Platelet Count 162 X10*3/uL (160-400); Red Cell Distribution Width 13.2 % (11.0-16.0); White Blood Count 6.7 X10*3/uL (4.8-10.8)
[2024-08-28] MEDS: cefEPime HCl/D5W 2 GM/50 ML PIGGYBACK IV ×2 (08:19→21:10)
[2024-08-28] MEDS: vancomycin HCL 500 MG in 0.9 % Sodium Chloride 100 ML 110 MG IV (08:19)
[2024-08-28] MEDS: Enoxaparin Sodium 40 MG/0.4 ML SYRINGE SUBCUT (08:19)
[2024-08-28] MEDS: 0.9 % Sodium Chloride Flush 3 ML SYRINGE IVFLUSH ×3 (08:20→21:12)
--- NOTE | 2024-08-28 10:36 | P.PNCC_ITS ---
Subjective Subjective Date of Service: 08/28/24 Interval History: no significant overnight events Critical Care Time (minutes): 60 Physical Exam 2 Vital Signs: Vital Signs: Last Vital Signs Temp 99.1 F 08/28/24 09:00 Pulse 61 08/28/24 09:00 Resp 20 08/28/24 09:00 BP 95/54 L 08/28/24 09:00 Pulse Ox 90 L 08/28/24 09:00 O2 Del Method Mechanical Ventil ation 08/28/24 09:00 O2 Flow Rate 7 08/28/24 09:00 FiO2 50 08/26/24 09:00 Oxygen Flow Rate 3 08/26/24 22:47 BMI result Body Mass Index 15.6 Const: General: cooperative, healthy appearing, comfortable, no acute distress, well developed, alert, awake and Physically active HEENT: Head: Yes normal to inspection, Yes normocephalic and Yes atraumatic Eyes: General: appearance normal, both eyes and all related structures Neck: Neck: Yes normal visual inspection, Yes full ROM, Yes no meningeal signs, Yes trachea midline and Yes supple Chest: Chest palpation & inspection: normal inspection of the chest Resp: Other: no appreciable overt rales, rhonchi, wheezing Effort & Inspection: normal respiratory effort Cardio: Rate: bradycardic Rhythm: regular rhythm GI: Inspection: Yes normal to inspection, No Abdominal wall edema and No distended Palpation (GI): Soft to palpation, not firm, nontender, no guarding and not rigid Skin: General skin exam: no rashes or lesions noted Neuro: Other: answers some yes-no questions General: tone normal, moves all extremities, no meningeal signs and no focal motor deficits Extrem: General: Yes normal to inspection, Yes full ROM, Yes capillary refill normal and Yes no clubbing, cyanosis or edema Psych: Appearance: grossly normal Objective Data Labs 08/28/24 05:52 08/28/24 05:52 Labs: Laboratory Results - last 24 hr 08/27/24 08/28/24 09:39 05:52 WBC 6.7 RBC 4.10 L Hgb 13.9 Hct 42.0 MCV 102.4 H MCH 33.9 H MCHC 33.1 RDW 13.2 Plt Count 162 MPV 9.5 Immature Gran % (Auto) 0.7 H Neut % (Auto) 72.6 Lymph % (Auto) 15.1 L [place] % (Auto) 7.9 Eos % (Auto) 2.7 Baso % (Auto) 1.0 Lymph # (Auto) 1.0 L [place] # (Auto) 0.5 Eos # (Auto) 0.2 Baso # (Auto) 0.1 Abs Immat Gran (auto) 0.05 H Absolute Neuts (auto) 4.9 Absolute Nucleated RBC 0.000 Nucleated RBC % (auto) 0.0 Sodium 141 Potassium 3.5 Chloride 106 Carbon Dioxide 26 Anion Gap 13 BUN 23 H Creatinine 0.72 Estim Creat Clear Calc 40.7 Estimated GFR > 60 Random Glucose 118 H Lactic Acid 0.7 Calcium 8.6 D Phosphorus 2.0 L Magnesium 2.1 Random Cortisol 16.1 Microbiology Microbiology Results: Microbiology 08/24/24 13:13 Blood - Venous Blood Culture - Preliminary No growth after 48 hours. 08/24/24 13:13 Blood - Venous Blood Culture - Preliminary No growth after 48 hours. 08/24/24 Unknown Urine clean catch - Clean Catch Midstream Urine Culture - Final No growth. Progress Note: A&P Assessment and plan (1) Acute hypoxic respiratory failure: Status: Acute (2) Aspiration pneumonia: Status: Acute (3) Bradycardia: Status: Acute Plan Patient is a 64 Y F w/ hyperlipidemia c/b prior CVA, hasimoto's thyroiditis c/b hypothyoridism, trisomy 21 c/b dementia presenting [facility] w/ cough, dyspnea, found to have CT C c/f pneumonia and pulmonary edema; emergency department course c/b hypoxic respiratory failure and shock, intubated 08/24 PM N: no acute issues; trisomy 21 c/b dementia, appears at baseline per family, caretakers CV: shock, c/f septic shock; bradycardia on dopamine and norepinephrine gtt, wean as tolerated R: acute hypoxic respiratory failure, likely multi-factorial, d/t aspiration pneumonia, pulmonary edema, intubated 08/25, extubated 08/26, 5L NC, wean as tolerated GI: NPO; of note, sister reports history of aspiration; to follow-up speech/swallow evaluation : no acute issues; diuresis as tolerated; to closely monitor renal indices, electrolytes H: no acute issues; chemical DVT prophylaxis w/ enoxaparin SQ ID: c/f pneumonia, on vancomycin/cefepime/azithromycin E: hypothyroidism on home levothyroxine P: no acute issues Quality Stroke Does the patient have a stroke diagnosis?: No VTE Prior VTE?: No VTE Risk Level:: Medical - moderate - high VTE Device Contraindication: N/A - Device Ordered VTE Drug Contraindication: N/A - Med Ordered
[2024-08-28] MEDS: Potassium Phosphate/NS 15 MMOL/250 ML PLAST..BAG 62.5 MMOL IV (11:32)
[2024-08-28] MEDS: Azithromycin 500 MG in 0.9 % Sodium Chloride 250 ML 125 MG IV (14:32)
--- NOTE | 2024-08-28 18:42 | PC.NURSE ---
N- patient alert but minimally verbal, does not follow commands, cognitive deficits. CV- patient continues on Levophen and Dopamine, unable to titrate Dopamine due to HR low 50?s, increased Levophed this afternoon for MAP <65, see MAR for rates. MD aware. Pulm- increased O2 to 7L [place] from 5l NC due to O2 sat drop to 85-88%, goal to keep above 90% GI- no BM noted today, continues to be NPO due to failed swallow eval yesterday with speech therapy - araiza in place, decreased urine output. MD aware. Turn and repo as tolerated every 2hours to maintain skin integrity
[2024-08-28 19:23] LABS: Vancomycin Trough 12.4 mcg/mL (10.0-20.0)
[2024-08-28] MEDS: Norepinephrine Bitartrate/D5W 8 MG/250 ML PLAST..BAG 8.58 MG IVCONT (19:24)
[2024-08-28] MEDS: vancomycin HCL 750 MG in 0.9 % Sodium Chloride 250 ML 265 MG IV (21:33)
[2024-08-29] VITALS (37 sets, daily range): BP systolic 63–153; BP diastolic 21–116; PULSE 50–90; RESP 14–26; TEMP 36.8–37.5; O2SAT 91–99; BMI 16.5
[2024-08-29 04:34] LABS: VBG Base Excess 4.6 mmol/L; VBG HCO3 28 mmol/L (22-26); VBG pCO2 38 mmHg; VBG pH 7.47 (7.32-7.43); VBG pO2 55 mmHg
[2024-08-29 05:06] LABS: MANUAL DIFF FLAG NO
[2024-08-29 05:14] LABS: Basophils Absolute Auto 0.1 X10*3/uL (0.0-0.2); Basophils Percent Auto 0.8 % (0-2); Eosinophils Absolute Auto 0.2 X10*3/uL (0.0-0.4); Eosinophils Percent Auto 2.5 % (0-4); Hematocrit 38.3 % (37.0-47.0); Hemoglobin 12.6 g/dl (12.0-16.0); Imm Gran Abs Auto 0.09 X10*3/uL (0.00-0.03); Lymphocytes Absolute Auto 1.2 X10*3/uL (1.2-4.9); Lymphocytes Percent Auto 13.6 % (20-40); Mean Corpuscular HGB Conc 32.9 g/dl (31.0-35.0); Mean Corpuscular Hemoglobin 33.8 pg (27.0-33.0); Mean Corpuscular Volume 102.7 fL (80.0-98.0); Mean Platelet Volume 9.8 fL (9.4-12.3); Monocytes Absolute Auto 0.7 X10*3/uL (0.1-1.2); Monocytes Percent Auto 7.4 % (2-11); Neutrophils Absolute Auto 6.5 x10*3/uL (2.0-8.3); Neutrophils Percent Auto 74.7 % (45-73); Platelet Count 177 X10*3/uL (160-400); Red Blood Count 3.73 X10*6/uL (4.20-5.50); Red Cell Distribution Width 12.9 % (11.0-16.0); White Blood Count 8.7 X10*3/uL (4.8-10.8)
[2024-08-29] MEDS: Levothyroxine Sodium 100 MCG/5 ML VIAL 75 MCG IVPUSH (05:30)
[2024-08-29 05:32] LABS: Albumin Level 3.5 g/dL (3.5-5.0); Anion Gap 13 (12-20); Blood Urea Nitrogen 22 mg/dL (9-16); Calcium 8.7 mg/dL (8.4-10.2); Carbon Dioxide 27 mmol/L (22-29); Chloride 108 mmol/L (96-108); Creatinine Clr Calc Pharmacy 39.1; Estimated Glomerular Filt Rate > 60; Glucose Random 117 mg/dL (60-115); Magnesium 2.2 mg/dL (1.6-2.6); Phosphorus 2.3 mg/dL (2.7-4.5); Potassium 3.6 mmol/L (3.3-5.1); Sodium 144 mmol/L (135-145)
[2024-08-29] MEDS: Potassium Phosphate/NS 15 MMOL/250 ML PLAST..BAG 62.5 MMOL IV ×2 (06:24→11:49)
[2024-08-29 08:31] LABS: Venous Blood Gas Refer to POC result
[2024-08-29] MEDS: 0.9 % Sodium Chloride Flush 3 ML SYRINGE IVFLUSH ×3 (08:38→19:53)
[2024-08-29] MEDS: Enoxaparin Sodium 40 MG/0.4 ML SYRINGE SUBCUT (08:47)
--- NOTE | 2024-08-29 09:41 | MHC.SL.SWA ---
Speech Pathologist Impression: High risk for aspiration d/t severity of dysphagia, overt s/s of aspiration on minimal trials. MD and RN consulted, STICK FEEDER will follow as indicated. Risk of Aspiration Due to: Reduced Cognition Weak Cough Dysphasia Diet Status: Patient comes from a intermediate. At baseline she eats a pureed diet with nectar thick liquids. Per staff, she had MBSS with [facility] a couple months ago and has this done every once in a while. Liquid Consistency and Strategies for Safe Swallow: Liquid Intake Recommendation: NPO Liquid Intake Strategies: Solid Food Consistency: Dietary Recommendations: NPO Additional Modifications to Solid Foods: Oral Medication Intake: NPO Please contact the pharmacy regarding appropriate crushable or liquid drug formulations that are available whenever modified delivery is recommended. Compensatory Strategies and Precautions to be Taken for Safe Swallow: Supervision While Eating and Drinking for Safe Swallow: PO with STICK FEEDER Foods to Avoid: Swallowing Recommended Treatments: Compens. Strategy Educat. Recommendation for Speech: Inpatient Speech Therapy Comment: Daily re-assess, remains NPO d/t overt s/s of aspiration, high risk for respiratory compromise. Frequency/Duration: Daily M-F Date Range for Service Req: Timeline to reassess: Manufacturing Quality Technician Clinican/Clinical Fellow: No Supervisory Statement: I have reviewed and agree with the student/clinical fellow's documentation: N/A Speech Language Pathologist: Mattie Mann M.S., CCC-STICK FEEDER
[2024-08-29] MEDS: vancomycin HCL 750 MG in 0.9 % Sodium Chloride 250 ML 265 MG IV (10:14)
--- NOTE | 2024-08-29 10:30 | MHC.CLN ---
PT IS DAY 6 NPO IN ICU DISCUSSED AT ROUNDS WITH MD-PLAN TO START PPN REVIEWED LABS AND DISCUSSED WITH PHARMACY RECOMMEND PPN AT 45ML/HR TO PROVIDE 551KCALS, 108G DEXTROSE, 46G PROTEIN REPLETE LYTES NEEDED SEE ALSO FULL CLINICAL NUTRITION ASSESSMENT
[2024-08-29] MEDS: cefEPime HCl/D5W 2 GM/50 ML PIGGYBACK IV (11:37)
[2024-08-29] MEDS: DOPamine HCL/D5W 400 MG/250 ML PLAST..BAG 10.36 MG IVCONT (13:05)
--- NOTE | 2024-08-29 13:33 | PM.CCPN ---
Subjective Subjective Date of Service: 08/29/24 Interval History: 64-year-old lady with underlying Down syndrome, hypothyroidism, dementia, Jorge L's admitted on 08/24/2024 with dyspnea, hypoxia, and worsening lethargy. On ER evaluation patient hypotensive with poor response to initial IV fluids requiring pressor support, admitted to the intensive care unit. Hospital course further complicated by aspiration pneumonia requiring intubation 08/25/2024 and extubation within 24 hours. Patient continues with recurrent small volume aspiration resulting in hypoxemia and bradycardia requiring further supplemental oxygen and pressor support. No events overnight. Critical Care Time (minutes): 60 Physical Exam Vital Signs: Vital Signs: Last Vital Signs Temp 99.0 F 08/29/24 13:00 Pulse 61 08/29/24 13:05 Resp 26 H 08/29/24 13:00 BP 140/68 H 08/29/24 13:05 Pulse Ox 96 08/29/24 13:00 O2 Del Method Nasal Cannula 08/29/24 13:00 O2 Flow Rate 7 08/29/24 13:00 FiO2 50 08/26/24 09:00 Oxygen Flow Rate 3 08/26/24 22:47 BMI result Body Mass Index 16.5 Const: General: no acute distress, alert and awake Eyes: Sclerae: sclerae normal EOM: EOMs intact bilaterally Neck: Neck: Yes no lymphadenopathy, Yes trachea midline and Yes supple Resp: Effort & Inspection: normal respiratory effort and no respiratory distress Auscultation: rales (Bilateral) diffuse Cardio: Rate: bradycardic Rhythm: regular rhythm Heart sounds: no gallops, no murmurs and no rubs GI: Palpation (GI): Soft to palpation and Other GI palpation findings present ( Nontender) Auscultation: normal bowel sounds Extrem: General: Yes no pedal edema, No clubbing and No cyanosis Objective Data Labs 08/29/24 04:25 08/29/24 04:25 Labs: Laboratory Results - last 24 hr 08/28/24 08/29/24 08/29/24 19:04 04:25 04:29 WBC 8.7 RBC 3.73 L Hgb 12.6 Hct 38.3 MCV 102.7 H MCH 33.8 H MCHC 32.9 RDW 12.9 Plt Count 177 MPV 9.8 Immature Gran % (Auto) 1.0 H Neut % (Auto) 74.7 H Lymph % (Auto) 13.6 L [place] % (Auto) 7.4 Eos % (Auto) 2.5 Baso % (Auto) 0.8 Lymph # (Auto) 1.2 [place] # (Auto) 0.7 Eos # (Auto) 0.2 Baso # (Auto) 0.1 Abs Immat Gran (auto) 0.09 H Absolute Neuts (auto) 6.5 Absolute Nucleated RBC 0.000 Nucleated RBC % (auto) 0.0 VBG pH 7.47 H VBG pCO2 38 VBG pO2 55 VBG HCO3 28 H VBG O2 Saturation 87.0 VBG Base Excess 4.6 Sodium 144 Potassium 3.6 Chloride 108 Carbon Dioxide 27 Anion Gap 13 BUN 22 H Creatinine 0.79 Estim Creat Clear Calc 39.1 Estimated GFR > 60 Random Glucose 117 H Calcium 8.7 Phosphorus 2.3 L Magnesium 2.2 Albumin 3.5 Vancomycin Trough 12.4 Microbiology Microbiology Results: Microbiology 08/24/24 13:13 Blood - Venous Blood Culture - Preliminary No growth after 48 hours. 08/24/24 13:13 Blood - Venous Blood Culture - Preliminary No growth after 48 hours. 08/24/24 Unknown Urine clean catch - Clean Catch Midstream Urine Culture - Final No growth. Progress Note: A&P Assessment and plan (1) Down syndrome: Status: Acute (2) Jorge L's disease: Status: Acute (3) Acute hypoxic respiratory failure: Status: Acute (4) Pulmonary aspiration: Status: Acute (5) Bradycardia: Status: Acute (6) Shock: Status: Acute Plan Assessment: 64-year-old lady with underlying Down syndrome admitted with dyspnea/hypoxia/hypotension secondary to pulmonary aspiration initially requiring ventilatory support, now extubated, however with persistent recurrent small volume aspirations resulting in hypoxia and bradycardia requiring supplemental oxygen and pressor support Plan: Neuro: Underlying Down syndrome and dementia. Cardiac: Shock, continue to titrate off pressor support as tolerated. Underlying diastolic dysfunction. Pulmonary: Acute hypoxic respiratory failure secondary to recurrent aspirations, continue to titrate off pressor support as tolerated. Renal: No acute issues. Endo: No acute issues. Underlying history of Jorge L's hypothyroidism, continue Synthroid. GI: No acute issues. ID: Empiric coverage pulmonary aspiration. Heme/Onc: No acute issues. Psych: No acute issues. Miscellaneous: No acute issues. Prophylaxis: Heparin Diet: PPN Critical care time spent: 60 minutes Quality Stroke Does the patient have a stroke diagnosis?: No VTE Prior VTE?: No VTE Risk Level:: Medical - moderate - high VTE Device Contraindication: N/A - Device Ordered VTE Drug Contraindication: N/A - Med Ordered
--- NOTE | 2024-08-29 14:02 | MHC.CM.PN ---
Pt continues care in ICU: Remains on IV levophed and dopamine for BP support. Pt to continue on PPN at this time. Pt is from a [facility] and would return if home could meet her medical needs. No referrals to SNF at this time pending improvement in physical condition. CM to follow
[2024-08-29] MEDS: levoFLOXacin/D5W 750 MG/150 ML PIGGYBACK 100 MG IV (14:35)
[2024-08-29] MEDS: Norepinephrine Bitartrate/D5W 8 MG/250 ML PLAST..BAG 9.81 MG IVCONT (16:12)
[2024-08-29] MEDS: Parenteral Nutrition 1,080 ML 45 ML IV (19:52)
[2024-08-30] VITALS (33 sets, daily range): BP systolic 77–132; BP diastolic 42–74; PULSE 50–77; RESP 16–26; TEMP 36.3–38; O2SAT 91–98; BMI 17.3
[2024-08-30] MEDS: Levothyroxine Sodium 100 MCG/5 ML VIAL 75 MCG IVPUSH (05:16)
[2024-08-30 05:32] LABS: VBG Base Excess 4.1 mmol/L; VBG HCO3 28 mmol/L (22-26); VBG pCO2 41 mmHg; VBG pH 7.44 (7.32-7.43); VBG pO2 51 mmHg
[2024-08-30 05:33] LABS: Venous Blood Gas Refer to POC result
[2024-08-30 05:50] LABS: MANUAL DIFF FLAG NO
[2024-08-30 05:52] LABS: Basophils Percent Auto 0.5 % (0-2); Eosinophils Absolute Auto 0.2 X10*3/uL (0.0-0.4); Eosinophils Percent Auto 2.9 % (0-4); Hematocrit 35.5 % (37.0-47.0); Hemoglobin 12.2 g/dl (12.0-16.0); Imm Gran Abs Auto 0.09 X10*3/uL (0.00-0.03); Imm Gran Pct Auto 1.1 % (0.0-0.4); Lymphocytes Absolute Auto 1.1 X10*3/uL (1.2-4.9); Lymphocytes Percent Auto 13.4 % (20-40); Mean Corpuscular HGB Conc 34.4 g/dl (31.0-35.0); Mean Corpuscular Hemoglobin 34.1 pg (27.0-33.0); Mean Corpuscular Volume 99.2 fL (80.0-98.0); Monocytes Absolute Auto 0.8 X10*3/uL (0.1-1.2); Monocytes Percent Auto 9.6 % (2-11); Neutrophils Absolute Auto 6.1 x10*3/uL (2.0-8.3); Neutrophils Percent Auto 72.5 % (45-73); Platelet Count 167 X10*3/uL (160-400); Red Blood Count 3.58 X10*6/uL (4.20-5.50); White Blood Count 8.3 X10*3/uL (4.8-10.8)
[2024-08-30 06:07] LABS: Anion Gap 11 (12-20); Blood Urea Nitrogen 22 mg/dL (9-16); Calcium 8.3 mg/dL (8.4-10.2); Carbon Dioxide 25 mmol/L (22-29); Chloride 111 mmol/L (96-108); Creatinine Clr Calc Pharmacy 47.9; Estimated Glomerular Filt Rate > 60; Glucose Random 129 mg/dL (60-115); Magnesium 2.2 mg/dL (1.6-2.6); Phosphorus 2.2 mg/dL (2.7-4.5); Sodium 143 mmol/L (135-145); Triglycerides 113 mg/dL (<150)
--- NOTE | 2024-08-30 06:39 | PC.NURSE ---
Upon initial assessment at 1999: patient alert but difficult to assess orientation. Patient minimally verbal at baseline, able to occasionally say yes/no. Speech largely incomprehensible, occasionally follows commands. SB on tele, HR 50s-60s. Dopamine gtt dc'd per MEDICAL LAB SPECIALIST [place], see SEP. Levophed gtt continued for BP support. Pt lung sounds dim, with intermittent non-productive cough. 8L on Sharp NC, O2 goal >90%. Abdomen soft and active bs x4. Incontinent of small loose BM. PPN started per SEP. Bartholomew catheter patent, draining clear yellow urine. Skin warm dry and intact, patient largely repositions self. intermediatemotor home electrical foreman at bedside. Bed locked in lowest possible?position, bed alarm on, [employer] camera in place.? Approx 0240: Patient notably more vocal and restless. Speech?still garbled and largely incomprehensible.? Now: Patient resting comfortably, RR even and unlabored. Bed locked in lowest possible position, personal belongings within reach, bed alarm on.?
[2024-08-30] MEDS: Potassium Phosphate/NS 15 MMOL/250 ML PLAST..BAG 62.5 MMOL IV ×2 (07:52→20:21)
[2024-08-30] MEDS: Albumin Human 25 % 100 ML IV ×3 (07:55→20:20)
[2024-08-30] MEDS: 0.9 % Sodium Chloride Flush 3 ML SYRINGE IVFLUSH ×3 (07:55→21:23)
[2024-08-30] MEDS: Enoxaparin Sodium 40 MG/0.4 ML SYRINGE SUBCUT (08:00)
--- NOTE | 2024-08-30 09:20 | PM.CCPN ---
Subjective Subjective Date of Service: 08/30/24 Interval History: 64-year-old lady with underlying Down syndrome, hypothyroidism, dementia, Jorge L's admitted on 08/24/2024 with dyspnea, hypoxia, and worsening lethargy. On ER evaluation patient hypotensive with poor response to initial IV fluids requiring pressor support, admitted to the intensive care unit. Hospital course further complicated by aspiration pneumonia requiring intubation 08/25/2024 and extubation within 24 hours. Patient continues with recurrent small volume aspiration resulting in hypoxemia and bradycardia requiring further supplemental oxygen and pressor support. No events overnight. Titrated off dopamine, but continues to require Levophed drip. Critical Care Time (minutes): 45 Physical Exam Vital Signs: Vital Signs: Last Vital Signs Temp 99.7 F 08/30/24 09:00 Pulse 53 08/30/24 09:00 Resp 18 08/30/24 09:00 BP 99/57 L 08/30/24 09:00 Pulse Ox 94 08/30/24 09:00 O2 Del Method Nasal Cannula 08/30/24 09:00 O2 Flow Rate 7 08/30/24 09:00 FiO2 50 08/26/24 09:00 Oxygen Flow Rate 3 08/26/24 22:47 BMI result Body Mass Index 17.3 Const: General: no acute distress and alert Nutritional Appearance: not obese Orientation/consciousness: Other orientation findings ( oriented) HEENT: Head: Yes atraumatic Eyes: General: appearance normal, both eyes and all related structures Sclerae: sclerae normal EOM: EOMs intact bilaterally Neck: Neck: Yes supple Lymphatic: no lymphadenopathy noted Resp: Effort & Inspection: normal respiratory effort and no use of accessory muscles Auscultation: crackles (Mild bibasilar) Cardio: Rate: regular rate Rhythm: regular rhythm Heart sounds: no gallops, no murmurs and no rubs Skin: General skin exam: other ( warm) Extrem: General: No clubbing, No cyanosis and No edema Objective Data Labs 08/30/24 05:15 08/30/24 05:15 Labs: Laboratory Results - last 24 hr 08/30/24 08/30/24 05:15 05:27 WBC 8.3 RBC 3.58 L Hgb 12.2 Hct 35.5 L MCV 99.2 H MCH 34.1 H MCHC 34.4 RDW 13.0 Plt Count 167 MPV 10.0 Immature Gran % (Auto) 1.1 H Neut % (Auto) 72.5 Lymph % (Auto) 13.4 L [place] % (Auto) 9.6 Eos % (Auto) 2.9 Baso % (Auto) 0.5 Lymph # (Auto) 1.1 L [place] # (Auto) 0.8 Eos # (Auto) 0.2 Baso # (Auto) 0.0 Abs Immat Gran (auto) 0.09 H Absolute Neuts (auto) 6.1 Absolute Nucleated RBC 0.000 Nucleated RBC % (auto) 0.0 VBG pH 7.44 H VBG pCO2 41 VBG pO2 51 VBG HCO3 28 H VBG O2 Saturation 83.0 VBG Base Excess 4.1 Sodium 143 Potassium 4.0 Chloride 111 H Carbon Dioxide 25 Anion Gap 11 L BUN 22 H Creatinine 0.68 Estim Creat Clear Calc 47.9 Estimated GFR > 60 Random Glucose 129 H Calcium 8.3 L Phosphorus 2.2 L Magnesium 2.2 Albumin 3.0 L Triglycerides 113 Microbiology Microbiology Results: Microbiology 08/24/24 13:13 Blood - Venous Blood Culture - Final No growth after 5 days. 08/24/24 13:13 Blood - Venous Blood Culture - Final No growth after 5 days. 08/24/24 Unknown Urine clean catch - Clean Catch Midstream Urine Culture - Final No growth. Progress Note: A&P Assessment and plan (1) Bradycardia: Status: Acute (2) Shock: Status: Acute (3) Down syndrome: Status: Acute (4) Jorge L's disease: Status: Acute (5) Acute hypoxic respiratory failure: Status: Acute (6) Pulmonary aspiration: Status: Acute Plan Assessment: 64-year-old lady with underlying Down syndrome admitted with dyspnea/hypoxia/hypotension secondary to pulmonary aspiration initially requiring ventilatory support, now extubated, however with persistent recurrent small volume aspirations resulting in hypoxia and bradycardia requiring supplemental oxygen and pressor support Plan: Neuro: Underlying Down syndrome and dementia. Cardiac: Shock, continue to titrate off pressor support as tolerated. Underlying diastolic dysfunction. Pulmonary: Acute hypoxic respiratory failure secondary to recurrent aspirations, continue to titrate off pressor support as tolerated. Renal: No acute issues. Endo: No acute issues. Underlying history of Jorge L's hypothyroidism, continue Synthroid. GI: Continues to fail swallowing evaluation, will likely require PEG placement. ID: Empiric coverage pulmonary aspiration. Heme/Onc: No acute issues. Psych: No acute issues. Miscellaneous: No acute issues. Prophylaxis: Heparin Diet: PPN Critical care time spent: 45 minutes Quality Stroke Does the patient have a stroke diagnosis?: No VTE Prior VTE?: No VTE Risk Level:: Medical - moderate - high VTE Device Contraindication: N/A - Device Ordered VTE Drug Contraindication: N/A - Med Ordered
--- NOTE | 2024-08-30 10:08 | MHC.CLN ---
F/U DISCUSSED AT ROUNDS WITH MD-PLAN TO CONTINUE PPN REVIEWED LABS TRIGS 113 DISCUSSED WITH PHARMACY RECOMMEND PPN AT 55ML/HR WITH 49G LIPIDS TO PROVIDE 1163KCALS, 132G DEXTROSE, 56G PROTEIN REPLETE LYTES NEEDED
[2024-08-30] MEDS: Norepinephrine Bitartrate/D5W 8 MG/250 ML PLAST..BAG 7.36 MG IVCONT (12:36)
[2024-08-30] MEDS: levoFLOXacin/D5W 750 MG/150 ML PIGGYBACK 100 MG IV (13:09)
--- NOTE | 2024-08-30 14:43 | MHC.CM.PN ---
Addendum entered by Sheba Mascorro 08/30/24 14:55: Call placed to [facility] who states the long-term is able to take pt back with a gastric feeding tube if family opts to have this placed. Family has not made a definitive decision and would like to see how pt does clinically in the next 48 hours. CM to follow. Original Note: Pt continues on vasopressors: weaned down to Levophed: pt likely to transfer to medical floor once off of pressors. Pt may require a peg tube d/t continued aspirations - will contact the long-term to ensure they could potentially manage pt. CM to follow
--- NOTE | 2024-08-30 17:05 | PC.NURSE ---
Assumed care at 0700. Pt remains on norepinephrine gtt, titrated per MAR. Pt. remains SR/SB on tele, rate 50s-60s with PVCs. Pt. remains on NC, titrated to 5L, 02 sats remain >92%. PPN infusing per SEP. Pt. re-evaluated by speech therapy- see note. Bartholomew removed at 1700, DTV by 2300. Q2 repositioning and oral care performed. Bed locked in lowest position, call costa within reach, avasys camera in place. Plan of care ongoing.
--- NOTE | 2024-08-30 18:03 | MHC.SL.SWA ---
Speech Pathologist Impression: Risk of Aspiration, Oropharyngeal Dysphagia Risk of Aspiration Due to: Reduced Cognition Weak Cough Dysphasia Diet Status: No change. Patient comes from a correction. At baseline she eats a pureed diet with nectar thick liquids. Per staff, she had MBSS with [facility] a couple months ago and has this done every once in a while. Liquid Consistency and Strategies for Safe Swallow: Liquid Intake Recommendation: NPO Solid Food Consistency: Dietary Recommendations: NPO Additional Modifications to Solid Foods: Per RD, patient continues on PPN. Provide frequent oral care for hygiene and comfort Oral Medication Intake: NPO Please contact the pharmacy regarding appropriate crushable or liquid drug formulations that are available whenever modified delivery is recommended. Supervision While Eating and Drinking for Safe Swallow: PO with OPEN HEARTH WORKER Recommendation for Speech: Inpatient Speech Therapy Comment: Re-assess tomorrow. Frequency/Duration: Daily M-F Date Range for Service Req: Timeline to reassess: Health Promotion Specialist Clinican/Clinical Fellow: No Supervisory Statement: I have reviewed and agree with the student/clinical fellow's documentation: N/A Speech Language Pathologist: Mague Peralta M.A., CCC-OPEN HEARTH WORKER
[2024-08-30 19:49] LABS: Anion Gap 13 (12-20); Blood Urea Nitrogen 15 mg/dL (9-16); Calcium 8.7 mg/dL (8.4-10.2); Carbon Dioxide 26 mmol/L (22-29); Chloride 108 mmol/L (96-108); Creatinine Clr Calc Pharmacy 48.5; Estimated Glomerular Filt Rate > 60; Glucose Random 126 mg/dL (60-115); Magnesium 2.3 mg/dL (1.6-2.6); Phosphorus 2.3 mg/dL (2.7-4.5); Potassium 4.1 mmol/L (3.3-5.1); Sodium 143 mmol/L (135-145)
[2024-08-30] MEDS: Parenteral Nutrition 1,320 ML 55 ML IV (21:21)
[2024-08-30] MEDS: LORazepam 2 MG/ML VIAL 0.5 MG IVPUSH (22:06)
[2024-08-31] VITALS (33 sets, daily range): BP systolic 61–128; BP diastolic 35–93; PULSE 60–90; RESP 15–29; TEMP 36.4–37.3; O2SAT 91–97; BMI 17.1
[2024-08-31] MEDS: Albumin Human 25 % 100 ML IV (02:08)
[2024-08-31] MEDS: Levothyroxine Sodium 100 MCG/5 ML VIAL 75 MCG IVPUSH (05:29)
[2024-08-31 05:43] LABS: VBG Base Excess 6.4 mmol/L; VBG HCO3 28 mmol/L (22-26); VBG pCO2 31 mmHg; VBG pH 7.56 (7.32-7.43); VBG pO2 66 mmHg
[2024-08-31 05:44] LABS: Venous Blood Gas Refer to POC result
[2024-08-31 05:48] LABS: MANUAL DIFF FLAG NO
[2024-08-31 05:51] LABS: Basophils Percent Auto 0.5 % (0-2); Eosinophils Absolute Auto 0.2 X10*3/uL (0.0-0.4); Eosinophils Percent Auto 2.8 % (0-4); Hematocrit 34.3 % (37.0-47.0); Hemoglobin 11.4 g/dl (12.0-16.0); Imm Gran Abs Auto 0.33 X10*3/uL (0.00-0.03); Imm Gran Pct Auto 4.4 % (0.0-0.4); Lymphocytes Absolute Auto 1.1 X10*3/uL (1.2-4.9); Lymphocytes Percent Auto 14.5 % (20-40); Mean Corpuscular HGB Conc 33.2 g/dl (31.0-35.0); Mean Corpuscular Hemoglobin 33.5 pg (27.0-33.0); Mean Corpuscular Volume 100.9 fL (80.0-98.0); Mean Platelet Volume 10.1 fL (9.4-12.3); Monocytes Absolute Auto 0.6 X10*3/uL (0.1-1.2); Monocytes Percent Auto 7.9 % (2-11); Neutrophils Absolute Auto 5.2 x10*3/uL (2.0-8.3); Neutrophils Percent Auto 69.9 % (45-73); Platelet Count 143 X10*3/uL (160-400); Red Cell Distribution Width 13.1 % (11.0-16.0); White Blood Count 7.4 X10*3/uL (4.8-10.8)
[2024-08-31 06:04] LABS: Albumin Level 4.7 g/dL (3.5-5.0); Anion Gap 12 (12-20); Blood Urea Nitrogen 13 mg/dL (9-16); Carbon Dioxide 28 mmol/L (22-29); Chloride 108 mmol/L (96-108); Creatinine Clr Calc Pharmacy 46.7; Estimated Glomerular Filt Rate > 60; Glucose Random 119 mg/dL (60-115); Magnesium 2.4 mg/dL (1.6-2.6); Phosphorus 3.3 mg/dL (2.7-4.5); Potassium 3.9 mmol/L (3.3-5.1); Sodium 144 mmol/L (135-145)
--- NOTE | 2024-08-31 07:18 | PC.NURSE ---
1999: Upon initial assessment, patient remains alert to name though difficult to assess orientation. Speech slightly clearer but still garbled. Moves all extremities and occasionally follows commands. SB/SR on tele, continues on pressor support with goals of titrating down. Lung sounds dim, 5L NC for O2 goal >90%. Intermittent weak wet cough. Attempted suctioning?but patient resistant. Abdomen soft and nontender, PPN continues per SEP. Bartholomew removed on previous shift, DTV by 230. Skin warm dry and intact, patient repositions self with assistance. FDChome stager at bedside, personal items within reach, bed alarm on, avasys camera in place for safety. 2099: FDChome stager's shift ended, patient became restless and agitated, pulling off O2 and requiring frequent redirection. 0.5mg of ativan IVP ordered, see SEP. 1-1 sitter obtained for safety. 0700: Report given to oncoming RN. Patient resting comfortably, bed locked in lowest possible possible position, 1-1 sitter at bedside, avasys camera in place.
[2024-08-31] MEDS: 0.9 % Sodium Chloride Flush 3 ML SYRINGE IVFLUSH ×2 (08:40→16:31)
[2024-08-31] MEDS: Enoxaparin Sodium 40 MG/0.4 ML SYRINGE SUBCUT (08:43)
--- NOTE | 2024-08-31 09:39 | MHC.CLN ---
F/U DISCUSSED AT ROUNDS WITH MD-FAMILY MEETING TO DISCUSS PEG PLACEMENT REVIEWED LABS DISCUSSED WITH PHARMACY CONTINUE PPN AT 55ML/HR WITH 49G LIPIDS PROVIDES 1163KCALS (32KCALS/KG), 132G DEXTROSE, 56G PROTEIN (1.5G/KG) REPLETE LYTES NEEDED
--- NOTE | 2024-08-31 10:17 | PM.CCPN ---
Subjective Subjective Date of Service: 08/31/24 Interval History: 64-year-old lady with underlying Down syndrome, hypothyroidism, dementia, Jorge L's admitted on 08/24/2024 with dyspnea, hypoxia, and worsening lethargy. On ER evaluation patient hypotensive with poor response to initial IV fluids requiring pressor support, admitted to the intensive care unit. Hospital course further complicated by aspiration pneumonia requiring intubation 08/25/2024 and extubation within 24 hours. Patient continues with recurrent small volume aspiration resulting in hypoxemia and bradycardia requiring further supplemental oxygen and pressor support. No events overnight. Continues to fail swallow evaluation. Critical Care Time (minutes): 45 Physical Exam Vital Signs: Vital Signs: Last Vital Signs Temp 97.5 F 08/31/24 08:00 Pulse 67 08/31/24 10:00 Resp 18 08/31/24 10:00 BP 101/59 L 08/31/24 10:00 Pulse Ox 95 08/31/24 10:00 O2 Del Method Nasal Cannula 08/31/24 10:00 O2 Flow Rate 5 08/31/24 10:00 FiO2 50 08/26/24 09:00 Oxygen Flow Rate 3 08/26/24 22:47 BMI result Body Mass Index 17.1 Const: General: no acute distress and awake Eyes: Sclerae: sclerae normal EOM: EOMs intact bilaterally Neck: Neck: Yes no lymphadenopathy, Yes trachea midline and Yes supple Resp: Effort & Inspection: normal respiratory effort and no respiratory distress Auscultation: crackles (Mild bibasilar) Cardio: Rate: regular rate Rhythm: regular rhythm Heart sounds: no gallops, no murmurs and no rubs GI: Palpation (GI): Soft to palpation and Other GI palpation findings present ( Nontender) Auscultation: normal bowel sounds Extrem: General: Yes no pedal edema, No clubbing and No cyanosis Objective Data Labs 08/31/24 05:32 08/31/24 05:32 Labs: Laboratory Results - last 24 hr 08/30/24 08/31/24 08/31/24 19:27 05:32 05:39 WBC 7.4 RBC 3.40 L Hgb 11.4 L Hct 34.3 L MCV 100.9 H MCH 33.5 H MCHC 33.2 RDW 13.1 Plt Count 143 L MPV 10.1 Immature Gran % (Auto) 4.4 H Neut % (Auto) 69.9 Lymph % (Auto) 14.5 L [place] % (Auto) 7.9 Eos % (Auto) 2.8 Baso % (Auto) 0.5 Lymph # (Auto) 1.1 L [place] # (Auto) 0.6 Eos # (Auto) 0.2 Baso # (Auto) 0.0 Abs Immat Gran (auto) 0.33 H Absolute Neuts (auto) 5.2 Absolute Nucleated RBC 0.000 Nucleated RBC % (auto) 0.0 VBG pH 7.56 H VBG pCO2 31 VBG pO2 66 VBG HCO3 28 H VBG O2 Saturation 94.0 VBG Base Excess 6.4 Sodium 143 144 Potassium 4.1 3.9 Chloride 108 108 Carbon Dioxide 26 28 Anion Gap 13 12 BUN 15 13 Creatinine 0.67 0.69 Estim Creat Clear Calc 48.5 46.7 Estimated GFR > 60 > 60 Random Glucose 126 H 119 H Calcium 8.7 9.0 Phosphorus 2.3 L 3.3 Magnesium 2.3 2.4 Albumin 4.7 Microbiology Microbiology Results: Microbiology 08/24/24 13:13 Blood - Venous Blood Culture - Final No growth after 5 days. 08/24/24 13:13 Blood - Venous Blood Culture - Final No growth after 5 days. 08/24/24 Unknown Urine clean catch - Clean Catch Midstream Urine Culture - Final No growth. Progress Note: A&P Assessment and plan (1) Shock: Status: Acute (2) Acute hypoxic respiratory failure: Status: Acute (3) Pulmonary aspiration: Status: Acute (4) Down syndrome: Status: Acute Plan Assessment: 64-year-old lady with underlying Down syndrome admitted with dyspnea/hypoxia/hypotension secondary to pulmonary aspiration initially requiring ventilatory support, now extubated, however with persistent recurrent small volume aspirations resulting in hypoxia and bradycardia requiring supplemental oxygen and pressor support Plan: Neuro: Underlying Down syndrome and dementia. Cardiac: Shock, continue to titrate off pressor support as tolerated. Underlying diastolic dysfunction. Pulmonary: Acute hypoxic respiratory failure secondary to recurrent aspirations, continue to titrate off pressor support as tolerated. Renal: No acute issues. Endo: No acute issues. Underlying history of Jorge L's hypothyroidism, continue Synthroid. GI: Continues to fail swallowing evaluation, requires PEG placement, will discuss with healthcare proxy. ID: Empiric coverage pulmonary aspiration. Heme/Onc: No acute issues. Psych: No acute issues. Miscellaneous: No acute issues. Prophylaxis: Heparin Diet: PPN Critical care time spent: 45 minutes Quality Stroke Does the patient have a stroke diagnosis?: No VTE Prior VTE?: No VTE Risk Level:: Medical - moderate - high VTE Device Contraindication: N/A - Device Ordered VTE Drug Contraindication: N/A - Med Ordered
--- NOTE | 2024-08-31 12:23 | MHC.SLORD ---
Speech Language Pathology Order Status: TOP COATER, MD and RN consulted, pt [place] [employer] [facility] [place] Diagnosis was as follows: Patient presents with severe oropharyngeal dysphagia, affecting the safety and efficiency of the swallow. Nutrition/hydration as well as the respiratory status may be impacted by this patine'st current pathophysiology and swallowing profile . Recommendations were as follows: Ground solids, moistened by puree or sauce to bind itmes together, Mildly thick liquids via 5 cc or 10 cc Provale Cup, HTL, [place] Free Water Protocol, speech treatment to improve swallow function, upright positioning/reduce distractions/supervised PO feedings'. Inpatient course complicated by respiratory decline. TOP COATER recc NPO strict, alternative nutrition d/t severity and likelihood of recurrent PNAs. MD meeting with pt caregivers today to discuss POC.
--- NOTE | 2024-08-31 14:00 | MHC.CM.PN ---
Addendum entered by Sheba Mascorro 08/31/24 15:32: Received call from Angela Lara RN at [facility] [place] [phone]: she states if family opts for more comfort focused goals of care, [facility] will need to have a virtual meeting with family, [facility] and hospital dermatology sales representative to ensure the goals of care are appropriate and in agreement by all parties. Informed Angela that plans have not been finalized at this time. CM to contact Angela should family move toward palliative/hospice level of care. Original Note: Pt continues care in ICU - pressor weaning - MD to speak with pt's HCP's re: possible Peg tube placement. Pt's detention is able to accomodate pts return should she require Peg feedings. CM to follow for coordination of d/c planning needs.
[2024-08-31] MEDS: levoFLOXacin/D5W 750 MG/150 ML PIGGYBACK 100 MG IV (14:21)
--- NOTE | 2024-08-31 14:57 | P.CONGS_ITS ---
History of Present Illness Consult details Consult date: 08/31/24 Narrative: 64 year female with Down syndrome, dementia, referred for PEG tube placement. She was admitted to the ICU on 08/24/2024 because of hypoxic respiratory failure. She was diagnosed to have pneumonia, bilateral and likely secondary aspiration at that time. She remained on the ventilator but was extubated yesterday. She apparently had a swallow eval last year which showed aspiration. Since this is the likely etiology of her pneumonia, she is being referred for PEG tube placement because of this risk of we aspiration. She is from a senior living Her healthcare proxy is her sister Karyna Machado. She is awake answers some questions. She appears comfortable currently. Review of Systems 2 Constitutional: Constitutional: Denies chills and Denies fever(s) Cardiovascular: Cardiovascular: Denies chest pain Respiratory: Comments: Recently on the ventilator, extubated yesterday Gastrointestinal: Gastrointestinal: Denies abdominal pain PMFSH Past Medical History Medical History Medicare annual wellness visit, subsequent Preoperative cardiovascular examination New onset left bundle branch block (LBBB) Lethargy COVID-19 virus infection Mental status alteration Colon cancer screening Atlantoaxial instability Cholelithiasis Mental and behavioral problem Hypercholesterolemia Vitamin D deficiency Closed right ankle fracture Patent foramen ovale Hypothyroid Megaloblastic anemia CVA (cerebral vascular accident) Cataracts, bilateral Down syndrome Jorge L's disease Family History Family History Father No problems noted. Mother Hx of cancer of lung Surgical History Surgical History Clubfoot Hx of tubal ligation Hx of cataract surgery History of colonoscopy Social History Social History Household Members: Other Household Members Other:: [facility] Housing: Other Housing Other:: shelter Do you presently have visiting nurse or other home services: Yes Unable to assess alcohol history related to: Unable to respond and Unknown Alcohol intake: never Comment: senior living staff at bedside Patient Tobacco Use Status: Never used Tobacco Smoked in Last 30 Days: No e-Cigarette/Vaping Use: Never Used Second Hand Smoke Exposure: No Use of substances other than those prescribed or required for medical reasons: Unable to respond Currently Displaying Signs/Symptoms of Drug Intoxication Withdrawal: No Advance Directives: No Advance Directives Information Provided: No Advance Directives Date on File: 04/27/23 Do you have a plan to hurt others: No Plan Recently lost weight without trying: Unsure Patient : No Poor oral hygiene: Yes service: No Current occupational status: disabled Cognitive needs: Yes Hearing needs: No Vision needs: No Meds Allergies Allergy/AdvReac Type Severity Reaction Status Date / Time Sulfa (Sulfonamide Allergy Mild HIVES Verified 08/24/24 12:37 Antibiotics) sulfamethoxazole Allergy Mild HIVES Verified 08/24/24 12:37 [From Bactrim] amoxicillin [Amoxicillin] Allergy Unknown HIVES Verified 08/24/24 12:37 Clindamycin HCl Allergy Unknown rash Verified 08/24/24 12:37 trimethoprim [From Bactrim] Allergy Unknown HIVES Verified 08/24/24 12:37 Active Medications: Current Medications Enoxaparin Sodium (Enoxaparin Sodium 40 Mg/0.4 Ml Syringe) 40 mg SUBCUT Q24H COUNTS INCLUDE 234 BEDS AT THE [facility] Last Admin: 08/31/24 08:43 Dose: 40 mg Norepinephrine Bitartrate (Levophed) 8 mg in 250 mls @ 0 mls/hr IVCONT .Q0M COUNTS INCLUDE 234 BEDS AT THE [facility]; Protocol Last Titration: 08/31/24 09:14 Dose: 0.08 mcg/kg/min, 4.91 mls/hr Levofloxacin (Levaquin) 750 mg in 150 mls @ 100 mls/hr IV Q24H COUNTS INCLUDE 234 BEDS AT THE [facility] Last Admin: 08/31/24 14:21 Dose: 100 mls/hr Nutrition (Parenteral) (Parenteral Nutrition) 1,320 mls @ 55 mls/hr IV .Q24H COUNTS INCLUDE 234 BEDS AT THE [facility]; Protocol Stop: 08/31/24 20:59 Last Admin: 08/30/24 21:21 Dose: 55 mls/hr Nutrition (Parenteral) (Parenteral Nutrition) 1,320 mls @ 55 mls/hr IV .Q24H COUNTS INCLUDE 234 BEDS AT THE [facility]; Protocol Stop: 09/01/24 20:59 Levothyroxine Sodium (Levothyroxine Sodium 100 Mcg/5 Ml Vial) 75 mcg IVPUSH DAILY@0600 COUNTS INCLUDE 234 BEDS AT THE [facility] Last Admin: 08/31/24 05:29 Dose: 75 mcg Pharmacy Consult (Consult Rx Parenteral Nutrition Ordering) 1 each MISCELLANE DAILY PRN PRN Reason: Consult order Sodium Chloride (0.9 % Sodium Chloride Flush 3 Ml Syringe) [facility] Last Admin: 08/31/24 08:40 Dose: 3 ml Home Medications ?Medication ?Instructions ?Recorded ?Confirmed ?Last Taken ?Type gabapentin 300 mg capsule 300 mg PO BID 01/10/21 08/24/24 Unknown History oxcarbazepine 300 mg tablet 300 mg PO BID 06/17/22 08/24/24 Unknown History oxcarbazepine 150 mg tablet 150 mg PO BID 07/31/22 08/24/24 Unknown History (Trileptal) acetaminophen 650 mg/20.3 mL oral 650 mg PO Q4H PRN fever or pain 12/11/23 08/24/24 Unknown History solution cetyl and stearate 1 appl topical MOTH 12/11/23 08/24/24 Unknown History alcohol-propylen glycol-sls topical cream (Cetaphil topical cream) ketoconazole 2 % topical cream 1 appl topical MOTH 12/11/23 08/24/24 Unknown History sodium fluoride 1.1 %-potassium 1 appl PO BID 12/11/23 08/24/24 Unknown History nitrate 5 % dental paste calcium 600 mg (as 1 tab PO BID@1600,2000 08/24/24 08/24/24 Unknown History carbonate)-vitamin D3 10 mcg (400 unit) tablet cholecalciferol (vitamin D3) 25 25 mcg PO DAILY 08/24/24 08/24/24 Unknown History mcg (1,000 unit) tablet levothyroxine 137 mcg tablet 137 mcg PO DAILY@0600 08/24/24 08/24/24 Unknown History (Synthroid) trazodone 50 mg tablet 50 mg PO BEDTIME PRN Sleep 08/24/24 08/24/24 Unknown History Physical Exam 2 Vital Signs: Vital Signs: Last Vital Signs Temp 98.8 F 08/31/24 12:00 Pulse 64 08/31/24 13:00 Resp 22 H 08/31/24 13:00 BP 93/50 L 08/31/24 13:00 Pulse Ox 97 08/31/24 13:00 O2 Del Method Nasal Cannula 08/31/24 13:00 O2 Flow Rate 5 08/31/24 13:00 FiO2 50 08/26/24 09:00 Oxygen Flow Rate 3 08/26/24 22:47 BMI result Body Mass Index 17.1 Const: Other: Awake, answers simple questions General: comfortable Resp: Effort & Inspection: normal respiratory effort Cardio: Rate: regular rate GI: Other: No surgical scars on the abdomen Palpation (GI): Soft to palpation, not firm and nontender Results Labs 09/01/24 05:05 09/01/24 05:05 Labs: Abnormal lab results 08/30/24 08/31/24 08/31/24 Range/Units 19:27 05:32 05:39 RBC 3.40 L (4.20-5.50) X10*6/uL Hgb 11.4 L (12.0-16.0) g/dl Hct 34.3 L (37.0-47.0) % MCV 100.9 H (80.0-98.0) fL MCH 33.5 H (27.0-33.0) pg Plt Count 143 L (160-400) X10*3/uL Immature Gran % (Auto) 4.4 H (0.0-0.4) % Lymph % (Auto) 14.5 L (20-40) % Lymph # (Auto) 1.1 L (1.2-4.9) X10*3/uL Abs Immat Gran (auto) 0.33 H (0.00-0.03) X10*3/uL VBG pH 7.56 H (7.32-7.43) VBG HCO3 28 H (22-26) mmol/L Random Glucose 126 H 119 H (60-115) mg/dL Phosphorus 2.3 L (2.7-4.5) mg/dL Short CBC 08/31/24 Range/Units 05:32 WBC 7.4 (4.8-10.8) X10*3/uL Hgb 11.4 L (12.0-16.0) g/dl Hct 34.3 L (37.0-47.0) % Plt Count 143 L (160-400) X10*3/uL BMP 08/30/24 08/31/24 19:27 05:32 Sodium 143 144 Potassium 4.1 3.9 Chloride 108 108 Carbon Dioxide 26 28 BUN 15 13 Creatinine 0.67 0.69 Calcium 8.7 9.0 Liver Function 08/31/24 Range/Units 05:32 Albumin 4.7 (3.5-5.0) g/dL Urine 08/24/24 Range/Units 16:05 Urine Color Yellow Urine Appearance Clear Urine pH 6.0 (5.0-9.0) Ur Specific [place] 1.025 (1.005-1.025) Urine Protein Negative (Neg-Trace) mg/dL Urine Glucose (UA) Negative (Negative) mg/dL All other labs normal. Assessment and Plan (1) Aspiration pneumonia: Status: Acute She had been admitted last week and had been on the ventilator because of bilateral pneumonia secondary to aspiration. She apparently had a failed swallow eval last year I was therefore consulted for PEG tube placement in view of her risk for we aspiration in view of her dysphagia. I had a long discussion with her sister Kaylen Machado about the technique of PEG tube placement. I explained the risks including but not limited to bleeding, infections, injury to bowel, loss of airway, tube dislodgement, as well as the benefits and alternatives. She has given consent on her behalf. We will put her on the schedule for tomorrow for PEG tube placement in the OR and we will proceed if she is medically ready. Procedures Date of Service Date of Service: 09/01/24
[2024-08-31] MEDS: Norepinephrine Bitartrate/D5W 8 MG/250 ML PLAST..BAG 8.58 MG IVCONT (18:09)
--- NOTE | 2024-08-31 18:29 | PC.NURSE ---
General surgery consulted for PEG tube placement, consent signed. Levo drip titrated up for MAP goal, currently at .16. PPN running for nutrition. Bathe done 0800, tolerated well
[2024-08-31] MEDS: Parenteral Nutrition 1,320 ML 55 ML IV (20:55)
[2024-09-01] VITALS (35 sets, daily range): BP systolic 81–139; BP diastolic 47–71; PULSE 46–78; RESP 14–30; TEMP 34.8–37.1; O2SAT 90–98; BMI 17.1
[2024-09-01] MEDS: 0.9 % Sodium Chloride Flush 3 ML SYRINGE IVFLUSH ×4 (01:10→21:40)
[2024-09-01] MEDS: LORazepam 2 MG/ML VIAL 0.5 MG IVPUSH (01:10)
[2024-09-01 05:20] LABS: VBG HCO3 27 mmol/L (22-26); VBG pCO2 31 mmHg; VBG pH 7.54 (7.32-7.43); VBG pO2 96 mmHg
[2024-09-01 05:23] LABS: Venous Blood Gas Refer to POC result
[2024-09-01 05:56] LABS: MANUAL DIFF FLAG NO
[2024-09-01 06:06] LABS: Basophils Absolute Auto 0.1 X10*3/uL (0.0-0.2); Basophils Percent Auto 0.7 % (0-2); Eosinophils Absolute Auto 0.2 X10*3/uL (0.0-0.4); Hematocrit 34.7 % (37.0-47.0); Hemoglobin 11.6 g/dl (12.0-16.0); Imm Gran Abs Auto 0.17 X10*3/uL (0.00-0.03); Lymphocytes Absolute Auto 1.3 X10*3/uL (1.2-4.9); Lymphocytes Percent Auto 15.5 % (20-40); Mean Corpuscular HGB Conc 33.4 g/dl (31.0-35.0); Mean Corpuscular Hemoglobin 33.6 pg (27.0-33.0); Mean Corpuscular Volume 100.6 fL (80.0-98.0); Mean Platelet Volume 10.7 fL (9.4-12.3); Monocytes Absolute Auto 0.6 X10*3/uL (0.1-1.2); Monocytes Percent Auto 6.5 % (2-11); Neutrophils Absolute Auto 6.3 x10*3/uL (2.0-8.3); Neutrophils Percent Auto 73.3 % (45-73); Platelet Count 181 X10*3/uL (160-400); Red Blood Count 3.45 X10*6/uL (4.20-5.50); Red Cell Distribution Width 13.3 % (11.0-16.0); White Blood Count 8.6 X10*3/uL (4.8-10.8)
[2024-09-01] MEDS: Levothyroxine Sodium 100 MCG/5 ML VIAL 75 MCG IVPUSH (06:06)
[2024-09-01 06:12] LABS: Albumin Level 4.1 g/dL (3.5-5.0); Anion Gap 13 (12-20); Blood Urea Nitrogen 22 mg/dL (9-16); Calcium 8.8 mg/dL (8.4-10.2); Carbon Dioxide 25 mmol/L (22-29); Chloride 107 mmol/L (96-108); Creatinine Clr Calc Pharmacy 42.9; Estimated Glomerular Filt Rate > 60; Glucose Random 116 mg/dL (60-115); Magnesium 2.5 mg/dL (1.6-2.6); Phosphorus 3.6 mg/dL (2.7-4.5); Potassium 3.9 mmol/L (3.3-5.1); Sodium 141 mmol/L (135-145)
[2024-09-01] MEDS: Enoxaparin Sodium 40 MG/0.4 ML SYRINGE SUBCUT (08:25)
--- NOTE | 2024-09-01 09:43 | PM.PNGS ---
Subjective Subjective Date of Service: 09/01/24 Interval history: No events overnight On low-dose Levo Physical Exam Vital Signs: Vital Signs: Last Vital Signs Temp 98.5 F 09/01/24 08:00 Pulse 61 09/01/24 09:00 Resp 18 09/01/24 09:00 BP 111/54 L 09/01/24 09:00 Pulse Ox 93 09/01/24 09:00 O2 Del Method Nasal Cannula 09/01/24 09:00 O2 Flow Rate 5 09/01/24 09:00 FiO2 50 08/26/24 09:00 Oxygen Flow Rate 3 08/26/24 22:47 BMI result Body Mass Index 17.1 Const: General: comfortable and no acute distress Resp: Effort & Inspection: normal respiratory effort Cardio: Rate: regular rate GI: Other: No obvious surgical scars Palpation (GI): Soft to palpation, not firm and nontender Objective Data Active Medications Enoxaparin Sodium (Enoxaparin Sodium 40 Mg/0.4 Ml Syringe) 40 mg SUBCUT Q24H [facility] Last Admin: 09/01/24 08:25 Dose: 40 mg Documented By: BENJAMIN Norepinephrine Bitartrate (Levophed) 8 mg in 250 mls @ 0 mls/hr IVCONT .Q0M [facility]; Protocol Last Titration: 09/01/24 08:47 Dose: 0.14 mcg/kg/min, 8.58 mls/hr Documented By: BENJAMIN Levofloxacin (Levaquin) 750 mg in 150 mls @ 100 mls/hr IV Q24H [facility] Last Infusion: 08/31/24 16:24 Dose: Infused Documented By: BENJAMIN Nutrition (Parenteral) (Parenteral Nutrition) 1,320 mls @ 55 mls/hr IV .Q24H [facility]; Protocol Stop: 09/01/24 20:59 Last Admin: 08/31/24 20:55 Dose: 55 mls/hr Documented By: SARA Levothyroxine Sodium (Levothyroxine Sodium 100 Mcg/5 Ml Vial) 75 mcg IVPUSH DAILY@0600 [facility] Last Admin: 09/01/24 06:06 Dose: 75 mcg Documented By: SARA Pharmacy Consult (Consult Rx Parenteral Nutrition Ordering) 1 each MISCELLANE DAILY PRN PRN Reason: Consult order Sodium Chloride (0.9 % Sodium Chloride Flush 3 Ml Syringe) 3 ml IVFLUSH QSHIFT [facility] Last Admin: 09/01/24 08:25 Dose: 3 ml Documented By: BENJAMIN Labs 09/01/24 05:05 09/01/24 05:05 Labs: Laboratory Results - last 24 hr 09/01/24 09/01/24 05:05 05:16 MCV 100.6 H MCH 33.6 H MCHC 33.4 RDW 13.3 Plt Count 181 D MPV 10.7 Immature Gran % (Auto) 2.0 H Neut % (Auto) 73.3 H Lymph % (Auto) 15.5 L [place] % (Auto) 6.5 Eos % (Auto) 2.0 Baso % (Auto) 0.7 Lymph # (Auto) 1.3 [place] # (Auto) 0.6 Eos # (Auto) 0.2 Baso # (Auto) 0.1 Abs Immat Gran (auto) 0.17 H Absolute Neuts (auto) 6.3 Absolute Nucleated RBC 0.000 Nucleated RBC % (auto) 0.0 VBG pH 7.54 H VBG pCO2 31 VBG pO2 96 VBG HCO3 27 H VBG O2 Saturation 99.0 VBG Base Excess 5.0 Anion Gap 13 Estim Creat Clear Calc 42.9 Estimated GFR > 60 Random Glucose 116 H Calcium 8.8 Phosphorus 3.6 Magnesium 2.5 Albumin 4.1 Procedures Date of Service Date of Service: 09/01/24 Progress Note: A&P Assessment and plan (1) Aspiration pneumonia: Status: Acute Assessment and Plan: Referred for PEG tube placement in view of risks of recurrent aspiration I had discussed the procedure with the patient's healthcare proxy Pat and she was given consent I have reviewed old CT scan images of the abdomen and there appears to be a good window for accessing the stomach epigastric area Anesthesia wants to hold off on peg tube placement until patient is off Levophed Time Spent With Patient Time: Total time managing care of this patient today ____ minutes. Quality Stroke Does the patient have a stroke diagnosis?: No VTE Prior VTE?: No VTE Risk Level:: Medical - moderate - high VTE Device Contraindication: N/A - Device Ordered VTE Drug Contraindication: N/A - Med Ordered
--- NOTE | 2024-09-01 10:11 | MHC.CLN ---
F/U DISCUSSED AT ROUNDS WITH PEG PLACEMENT PENDING REVIEWED LABS DISCUSSED WITH PHARMACY CONTINUE PPN AT 55ML/HR WITH 49G LIPIDS PROVIDES 1163KCALS (32KCALS/KG), 132G DEXTROSE, 56G PROTEIN (1.5G/KG) REPLETE LYTES NEEDED
--- NOTE | 2024-09-01 10:23 | MHC.CM.PN ---
Pt continues care in ICU: on low dose levophed: family has opted for peg placement: unknown OR date/time. call placed to JUSTINA Miller [facility] director to relay information. Discussed pt's need for peg feedings, home O2, VNA: theses are treatments the retirement is able to manage but will need 24-48 hours for all staff to be trained. Angela will call JUSTINA Ann the director of pt's retirement to relay above information and to initiate staff training. CM to refer pt to VNA and home infusion for feedings.
--- NOTE | 2024-09-01 13:28 | P.CONAN_ITS ---
HPI - Anesthesia Eval Consult details Narrative: 64 yo F with Trisomy 21 and dementia admitted to ICU due to respiratory failure from pneumonia secondary to chronic aspiration. Previously intubated during this admission, now extubated and on levophed 0.14 mcg/kg/min. PMF Active Problems Active Problems: All Active Problems Shock (Acute) Pulmonary aspiration (Acute) Bradycardia (Acute) Aspiration pneumonia (Acute) Pulmonary edema (Acute) Hypoxia (Acute) Multifocal pneumonia (Acute) Cough (Acute) Urinary incontinence (Acute) Gastroenteritis (Acute) Pneumonia (Acute) Hemorrhoid (Acute) Constipation (Acute) Medicare annual wellness visit, subsequent (Acute) Pneumonia (Acute) Acute hypoxic respiratory failure (Acute) Pneumonia (Acute) Acute hypoxemic respiratory failure due to COVID-19 (Acute) Extraction of tooth needed (Acute) Preoperative clearance (Acute) Osteopenia (Acute) Down syndrome (Acute) New onset left bundle branch block (LBBB) (Acute) Urinary retention with incomplete bladder emptying (Acute) Breast cancer screening by mammogram (Acute) Annual physical exam (Acute) Allergic rhinitis (Acute) Mental and behavioral problem (Acute) Hypercholesterolemia (Acute) Hypothyroid (Acute) Jorge L's disease (Acute) Pancreatitis (Acute) Past Medical History Medical History Medicare annual wellness visit, subsequent Preoperative cardiovascular examination New onset left bundle branch block (LBBB) Lethargy COVID-19 virus infection Mental status alteration Colon cancer screening Atlantoaxial instability Cholelithiasis Mental and behavioral problem Hypercholesterolemia Vitamin D deficiency Closed right ankle fracture Patent foramen ovale Hypothyroid Megaloblastic anemia CVA (cerebral vascular accident) Cataracts, bilateral Down syndrome Jorge L's disease Family History Family History Father No problems noted. Mother Hx of cancer of lung Family history of problems with anesthesia: No Surgical History Surgical History Clubfoot Hx of tubal ligation Hx of cataract surgery History of colonoscopy History of Problems with Anesthesia: No Social History Social History Household Members: Other Household Members Other:: CHD Housing: Other Housing Other:: custodial Do you presently have visiting nurse or other home services: Yes Unable to assess alcohol history related to: Unable to respond and Unknown Alcohol intake: never Comment: [facility] staff at bedside Patient Tobacco Use Status: Never used Tobacco Smoked in Last 30 Days: No e-Cigarette/Vaping Use: Never Used Second Hand Smoke Exposure: No Use of substances other than those prescribed or required for medical reasons: Unable to respond Currently Displaying Signs/Symptoms of Drug Intoxication Withdrawal: No Advance Directives: No Advance Directives Information Provided: No Advance Directives Date on File: 04/27/23 Do you have a plan to hurt others: No Plan Recently lost weight without trying: Unsure Patient : No Poor oral hygiene: Yes service: No Current occupational status: disabled Cognitive needs: Yes Hearing needs: No Vision needs: No Meds Allergies Allergy/AdvReac Type Severity Reaction Status Date / Time Sulfa (Sulfonamide Allergy Mild HIVES Verified 08/24/24 12:37 Antibiotics) sulfamethoxazole Allergy Mild HIVES Verified 08/24/24 12:37 [From Bactrim] amoxicillin [Amoxicillin] Allergy Unknown HIVES Verified 08/24/24 12:37 Clindamycin HCl Allergy Unknown rash Verified 08/24/24 12:37 trimethoprim [From Bactrim] Allergy Unknown HIVES Verified 08/24/24 12:37 Active Medications: Current Medications Enoxaparin Sodium (Enoxaparin Sodium 40 Mg/0.4 Ml Syringe) 40 mg SUBCUT Q24H [facility] Last Admin: 09/01/24 08:25 Dose: 40 mg Norepinephrine Bitartrate (Levophed) 8 mg in 250 mls @ 0 mls/hr IVCONT .Q0M DNADY; Protocol Last Titration: 09/01/24 08:47 Dose: 0.14 mcg/kg/min, 8.58 mls/hr Levofloxacin (Levaquin) 750 mg in 150 mls @ 100 mls/hr IV Q24H [facility]ANDY Last Infusion: 08/31/24 16:24 Dose: Infused Nutrition (Parenteral) (Parenteral Nutrition) 1,320 mls @ 55 mls/hr IV .Q24H [facility]; Protocol Stop: 09/01/24 20:59 Last Admin: 08/31/24 20:55 Dose: 55 mls/hr Nutrition (Parenteral) (Parenteral Nutrition) 1,320 mls @ 55 mls/hr IV .Q24H [facility]; Protocol Stop: 09/02/24 20:59 Levothyroxine Sodium (Levothyroxine Sodium 100 Mcg/5 Ml Vial) 75 mcg IVPUSH DAILY@0600 [facility] Last Admin: 09/01/24 06:06 Dose: 75 mcg Pharmacy Consult (Consult Rx Parenteral Nutrition Ordering) 1 each MISCELLANE DAILY PRN PRN Reason: Consult order Sodium Chloride (0.9 % Sodium Chloride Flush 3 Ml Syringe) 3 ml IVFLUSH QSHIFT [facility] Last Admin: 09/01/24 08:25 Dose: 3 ml Home Medications ?Medication ?Instructions ?Recorded ?Confirmed ?Last Taken ?Type gabapentin 300 mg capsule 300 mg PO BID 01/10/21 08/24/24 Unknown History oxcarbazepine 300 mg tablet 300 mg PO BID 06/17/22 08/24/24 Unknown History oxcarbazepine 150 mg tablet 150 mg PO BID 07/31/22 08/24/24 Unknown History (Trileptal) acetaminophen 650 mg/20.3 mL oral 650 mg PO Q4H PRN fever or pain 12/11/23 08/24/24 Unknown History solution cetyl and stearate 1 appl topical MOTH 12/11/23 08/24/24 Unknown History alcohol-propylen glycol-sls topical cream (Cetaphil topical cream) ketoconazole 2 % topical cream 1 appl topical MOTH 12/11/23 08/24/24 Unknown History sodium fluoride 1.1 %-potassium 1 appl PO BID 12/11/23 08/24/24 Unknown History nitrate 5 % dental paste calcium 600 mg (as 1 tab PO BID@1600,2000 08/24/24 08/24/24 Unknown History carbonate)-vitamin D3 10 mcg (400 unit) tablet cholecalciferol (vitamin D3) 25 25 mcg PO DAILY 08/24/24 08/24/24 Unknown History mcg (1,000 unit) tablet levothyroxine 137 mcg tablet 137 mcg PO DAILY@0600 08/24/24 08/24/24 Unknown History (Synthroid) trazodone 50 mg tablet 50 mg PO BEDTIME PRN Sleep 08/24/24 08/24/24 Unknown History Exam Exam Date and Time: 09/01/24 1330 Height,Weight and Vital Signs: Height 4 ft 9 in Weight 35.9 kg Last Vital Signs Temp 98.5 F 09/01/24 08:00 Pulse 57 09/01/24 12:00 Resp 20 09/01/24 12:00 BP 115/59 L 09/01/24 12:00 Pulse Ox 90 L 09/01/24 12:00 O2 Del Method Nasal Cannula 09/01/24 12:00 O2 Flow Rate 5 09/01/24 12:00 FiO2 50 08/26/24 09:00 Oxygen Flow Rate 3 08/26/24 22:47 Pertinent Lab Results Pertinent Lab Results: Laboratory Tests 08/24/24 08/24/24 08/24/24 13:13 13:32 15:48 WBC 17.4 H RBC 3.91 L Hgb 13.6 Hct 41.9 MCV 107.2 H MCH 34.8 H MCHC 32.5 RDW 14.5 Plt Count 145 L MPV 9.7 Immature Gran % (Auto) 0.7 H Neut % (Auto) 84.2 H Lymph % (Auto) 10.3 L Petroleum % (Auto) 4.4 Eos % (Auto) 0.1 Baso % (Auto) 0.3 Lymph # (Auto) 1.8 Petroleum # (Auto) 0.8 Eos # (Auto) 0.0 Baso # (Auto) 0.1 Abs Immat Gran (auto) 0.12 H Absolute Neuts (auto) 14.6 H Absolute Nucleated RBC 0.000 Nucleated RBC % (auto) 0.0 VBG pH VBG pCO2 VBG pO2 VBG HCO3 VBG O2 Saturation VBG Base Excess Sodium 144 Potassium 4.6 Chloride 111 H Carbon Dioxide 23 Anion Gap 15 BUN 29 H Creatinine 1.11 Estim Creat Clear Calc 31.2 Estimated GFR 49 Random Glucose 109 Lactic Acid 3.2 H* Lactic Acid F/U @ 2Hr Lactic Acid F/U @ 4Hr Calcium 9.3 Phosphorus Magnesium 2.2 Total Bilirubin 0.4 Direct Bilirubin 0.1 AST 24 ALT 18 Alkaline Phosphatase 88 Troponin I High Sens 21.0 H D 17.9 H B-Natriuretic Peptide 705 H Total Protein 7.7 Albumin 3.5 Triglycerides TSH Random Cortisol Urine Color Urine Appearance Urine pH Ur Specific [place] Urine Protein Urine Glucose (UA) Urine Ketones Urine Blood Urine Nitrite Ur Leukocyte Esterase Urine RBC Urine WBC Ur Squamous Epith Cells Urine Bacteria Hyaline Casts Vancomycin Trough Random Vancomycin 08/24/24 08/24/24 08/24/24 16:05 18:52 21:13 WBC RBC Hgb Hct MCV MCH MCHC RDW Plt Count MPV Immature Gran % (Auto) Neut % (Auto) Lymph % (Auto) Petroleum % (Auto) Eos % (Auto) Baso % (Auto) Lymph # (Auto) Petroleum # (Auto) Eos # (Auto) Baso # (Auto) Abs Immat Gran (auto) Absolute Neuts (auto) Absolute Nucleated RBC Nucleated RBC % (auto) VBG pH VBG pCO2 VBG pO2 VBG HCO3 VBG O2 Saturation VBG Base Excess Sodium Potassium Chloride Carbon Dioxide Anion Gap BUN Creatinine Estim Creat Clear Calc Estimated GFR Random Glucose Lactic Acid 3.8 H* Lactic Acid F/U @ 2Hr 3.3 H* Lactic Acid F/U @ 4Hr Calcium Phosphorus 3.4 Magnesium Total Bilirubin Direct Bilirubin AST ALT Alkaline Phosphatase Troponin I High Sens B-Natriuretic Peptide Total Protein Albumin Triglycerides TSH 1.34 Random Cortisol Urine Color Yellow Urine Appearance Clear Urine pH 6.0 Ur Specific [place] 1.025 Urine Protein Negative Urine Glucose (UA) Negative Urine Ketones Negative Urine Blood Negative Urine Nitrite Negative Ur Leukocyte Esterase Small (1+) H Urine RBC 0-2 Urine WBC 11-20 H Ur Squamous Epith Cells 0-2 Urine Bacteria None Seen Hyaline Casts 0-2 Vancomycin Trough Random Vancomycin 08/25/24 08/25/24 08/25/24 00:06 00:07 05:40 WBC 9.9 RBC 3.65 L Hgb 12.6 Hct 37.2 MCV 101.9 H D MCH 34.5 H MCHC 33.9 RDW 13.8 Plt Count 162 MPV 10.1 Immature Gran % (Auto) 0.7 H Neut % (Auto) 88.6 H Lymph % (Auto) 7.9 L Petroleum % (Auto) 2.7 Eos % (Auto) 0.0 Baso % (Auto) 0.1 Lymph # (Auto) 0.8 L Petroleum # (Auto) 0.3 Eos # (Auto) 0.0 Baso # (Auto) 0.0 Abs Immat Gran (auto) 0.07 H Absolute Neuts (auto) 8.8 H Absolute Nucleated RBC 0.000 Nucleated RBC % (auto) 0.0 VBG pH 7.38 VBG pCO2 51 VBG pO2 100 VBG HCO3 31 H VBG O2 Saturation 99.0 VBG Base Excess 5.1 Sodium 146 H Potassium 3.2 L D Chloride 111 H Carbon Dioxide 25 Anion Gap 13 BUN 22 H Creatinine 0.82 Estim Creat Clear Calc 33.9 Estimated GFR > 60 Random Glucose 149 H Lactic Acid Lactic Acid F/U @ 2Hr Lactic Acid F/U @ 4Hr 2.2 H* Calcium 8.9 Phosphorus 1.4 L Magnesium 1.9 Total Bilirubin Direct Bilirubin AST ALT Alkaline Phosphatase Troponin I High Sens B-Natriuretic Peptide Total Protein Albumin 3.6 Triglycerides TSH Random Cortisol Urine Color Urine Appearance Urine pH Ur Specific [place] Urine Protein Urine Glucose (UA) Urine Ketones Urine Blood Urine Nitrite Ur Leukocyte Esterase Urine RBC Urine WBC Ur Squamous Epith Cells Urine Bacteria Hyaline Casts Vancomycin Trough Random Vancomycin 08/25/24 08/26/24 08/26/24 05:45 05:13 05:22 WBC 9.6 RBC 3.96 L Hgb 13.4 Hct 40.2 MCV 101.5 H MCH 33.8 H MCHC 33.3 RDW 14.2 Plt Count 167 MPV 9.7 Immature Gran % (Auto) 0.3 Neut % (Auto) 75.0 H Lymph % (Auto) 21.0 Petroleum % (Auto) 3.0 Eos % (Auto) 0.2 Baso % (Auto) 0.5 Lymph # (Auto) 2.0 Petroleum # (Auto) 0.3 Eos # (Auto) 0.0 Baso # (Auto) 0.1 Abs Immat Gran (auto) 0.03 Absolute Neuts (auto) 7.2 Absolute Nucleated RBC 0.000 Nucleated RBC % (auto) 0.0 VBG pH 7.57 H 7.56 H VBG pCO2 31 29 VBG pO2 105 77 VBG HCO3 28 H 26 VBG O2 Saturation 99.0 99.0 VBG Base Excess 6.8 5.3 Sodium 144 Potassium 3.6 Chloride 111 H Carbon Dioxide 23 Anion Gap 14 BUN 20 H Creatinine 0.80 Estim Creat Clear Calc 36.6 Estimated GFR > 60 Random Glucose 93 Lactic Acid Lactic Acid F/U @ 2Hr Lactic Acid F/U @ 4Hr Calcium 8.6 Phosphorus 2.4 L Magnesium 2.1 Total Bilirubin Direct Bilirubin AST ALT Alkaline Phosphatase Troponin I High Sens B-Natriuretic Peptide Total Protein Albumin Triglycerides TSH Random Cortisol Urine Color Urine Appearance Urine pH Ur Specific [place] Urine Protein Urine Glucose (UA) Urine Ketones Urine Blood Urine Nitrite Ur Leukocyte Esterase Urine RBC Urine WBC Ur Squamous Epith Cells Urine Bacteria Hyaline Casts Vancomycin Trough Random Vancomycin 08/26/24 08/27/24 08/27/24 07:37 06:47 09:39 WBC 6.8 RBC 4.40 Hgb 14.9 Hct 44.7 MCV 101.6 H MCH 33.9 H MCHC 33.3 RDW 13.5 Plt Count 149 L MPV 9.6 Immature Gran % (Auto) 0.4 Neut % (Auto) 73.3 H Lymph % (Auto) 15.6 L Petroleum % (Auto) 7.9 Eos % (Auto) 2.1 Baso % (Auto) 0.7 Lymph # (Auto) 1.1 L Petroleum # (Auto) 0.5 Eos # (Auto) 0.1 Baso # (Auto) 0.1 Abs Immat Gran (auto) 0.03 Absolute Neuts (auto) 5.0 Absolute Nucleated RBC 0.000 Nucleated RBC % (auto) 0.0 VBG pH VBG pCO2 VBG pO2 VBG HCO3 VBG O2 Saturation VBG Base Excess Sodium 142 Potassium 3.4 Chloride 105 Carbon Dioxide 25 Anion Gap 15 BUN 21 H Creatinine 0.79 Estim Creat Clear Calc 37.1 Estimated GFR > 60 Random Glucose 112 Lactic Acid Lactic Acid F/U @ 2Hr Lactic Acid F/U @ 4Hr Calcium 9.2 D Phosphorus 3.4 Magnesium 2.3 Total Bilirubin Direct Bilirubin AST ALT Alkaline Phosphatase Troponin I High Sens B-Natriuretic Peptide Total Protein Albumin 3.7 Triglycerides TSH Random Cortisol 16.1 Urine Color Urine Appearance Urine pH Ur Specific [place] Urine Protein Urine Glucose (UA) Urine Ketones Urine Blood Urine Nitrite Ur Leukocyte Esterase Urine RBC Urine WBC Ur Squamous Epith Cells Urine Bacteria Hyaline Casts Vancomycin Trough 10.8 Random Vancomycin 5.2 L 08/28/24 08/28/24 08/29/24 05:52 19:04 04:25 WBC 6.7 8.7 RBC 4.10 L 3.73 L Hgb 13.9 12.6 Hct 42.0 38.3 MCV 102.4 H 102.7 H MCH 33.9 H 33.8 H MCHC 33.1 32.9 RDW 13.2 12.9 Plt Count 162 177 MPV 9.5 9.8 Immature Gran % (Auto) 0.7 H 1.0 H Neut % (Auto) 72.6 74.7 H Lymph % (Auto) 15.1 L 13.6 L Petroleum % (Auto) 7.9 7.4 Eos % (Auto) 2.7 2.5 Baso % (Auto) 1.0 0.8 Lymph # (Auto) 1.0 L 1.2 Petroleum # (Auto) 0.5 0.7 Eos # (Auto) 0.2 0.2 Baso # (Auto) 0.1 0.1 Abs Immat Gran (auto) 0.05 H 0.09 H Absolute Neuts (auto) 4.9 6.5 Absolute Nucleated RBC 0.000 0.000 Nucleated RBC % (auto) 0.0 0.0 VBG pH VBG pCO2 VBG pO2 VBG HCO3 VBG O2 Saturation VBG Base Excess Sodium 141 144 Potassium 3.5 3.6 Chloride 106 108 Carbon Dioxide 26 27 Anion Gap 13 13 BUN 23 H 22 H Creatinine 0.72 0.79 Estim Creat Clear Calc 40.7 39.1 Estimated GFR > 60 > 60 Random Glucose 118 H 117 H Lactic Acid 0.7 Lactic Acid F/U @ 2Hr Lactic Acid F/U @ 4Hr Calcium 8.6 D 8.7 Phosphorus 2.0 L 2.3 L Magnesium 2.1 2.2 Total Bilirubin Direct Bilirubin AST ALT Alkaline Phosphatase Troponin I High Sens B-Natriuretic Peptide Total Protein Albumin 3.5 Triglycerides TSH Random Cortisol Urine Color Urine Appearance Urine pH Ur Specific [place] Urine Protein Urine Glucose (UA) Urine Ketones Urine Blood Urine Nitrite Ur Leukocyte Esterase Urine RBC Urine WBC Ur Squamous Epith Cells Urine Bacteria Hyaline Casts Vancomycin Trough 12.4 Random Vancomycin 08/29/24 08/30/24 08/30/24 04:29 05:15 05:27 WBC 8.3 RBC 3.58 L Hgb 12.2 Hct 35.5 L MCV 99.2 H MCH 34.1 H MCHC 34.4 RDW 13.0 Plt Count 167 MPV 10.0 Immature Gran % (Auto) 1.1 H Neut % (Auto) 72.5 Lymph % (Auto) 13.4 L Petroleum % (Auto) 9.6 Eos % (Auto) 2.9 Baso % (Auto) 0.5 Lymph # (Auto) 1.1 L Petroleum # (Auto) 0.8 Eos # (Auto) 0.2 Baso # (Auto) 0.0 Abs Immat Gran (auto) 0.09 H Absolute Neuts (auto) 6.1 Absolute Nucleated RBC 0.000 Nucleated RBC % (auto) 0.0 VBG pH 7.47 H 7.44 H VBG pCO2 38 41 VBG pO2 55 51 VBG HCO3 28 H 28 H VBG O2 Saturation 87.0 83.0 VBG Base Excess 4.6 4.1 Sodium 143 Potassium 4.0 Chloride 111 H Carbon Dioxide 25 Anion Gap 11 L BUN 22 H Creatinine 0.68 Estim Creat Clear Calc 47.9 Estimated GFR > 60 Random Glucose 129 H Lactic Acid Lactic Acid F/U @ 2Hr Lactic Acid F/U @ 4Hr Calcium 8.3 L Phosphorus 2.2 L Magnesium 2.2 Total Bilirubin Direct Bilirubin AST ALT Alkaline Phosphatase Troponin I High Sens B-Natriuretic Peptide Total Protein Albumin 3.0 L Triglycerides 113 TSH Random Cortisol Urine Color Urine Appearance Urine pH Ur Specific [place] Urine Protein Urine Glucose (UA) Urine Ketones Urine Blood Urine Nitrite Ur Leukocyte Esterase Urine RBC Urine WBC Ur Squamous Epith Cells Urine Bacteria Hyaline Casts Vancomycin Trough Random Vancomycin 08/30/24 08/31/24 08/31/24 19:27 05:32 05:39 WBC 7.4 RBC 3.40 L Hgb 11.4 L Hct 34.3 L MCV 100.9 H MCH 33.5 H MCHC 33.2 RDW 13.1 Plt Count 143 L MPV 10.1 Immature Gran % (Auto) 4.4 H Neut % (Auto) 69.9 Lymph % (Auto) 14.5 L Petroleum % (Auto) 7.9 Eos % (Auto) 2.8 Baso % (Auto) 0.5 Lymph # (Auto) 1.1 L Petroleum # (Auto) 0.6 Eos # (Auto) 0.2 Baso # (Auto) 0.0 Abs Immat Gran (auto) 0.33 H Absolute Neuts (auto) 5.2 Absolute Nucleated RBC 0.000 Nucleated RBC % (auto) 0.0 VBG pH 7.56 H VBG pCO2 31 VBG pO2 66 VBG HCO3 28 H VBG O2 Saturation 94.0 VBG Base Excess 6.4 Sodium 143 144 Potassium 4.1 3.9 Chloride 108 108 Carbon Dioxide 26 28 Anion Gap 13 12 BUN 15 13 Creatinine 0.67 0.69 Estim Creat Clear Calc 48.5 46.7 Estimated GFR > 60 > 60 Random Glucose 126 H 119 H Lactic Acid Lactic Acid F/U @ 2Hr Lactic Acid F/U @ 4Hr Calcium 8.7 9.0 Phosphorus 2.3 L 3.3 Magnesium 2.3 2.4 Total Bilirubin Direct Bilirubin AST ALT Alkaline Phosphatase Troponin I High Sens B-Natriuretic Peptide Total Protein Albumin 4.7 Triglycerides TSH Random Cortisol Urine Color Urine Appearance Urine pH Ur Specific [place] Urine Protein Urine Glucose (UA) Urine Ketones Urine Blood Urine Nitrite Ur Leukocyte Esterase Urine RBC Urine WBC Ur Squamous Epith Cells Urine Bacteria Hyaline Casts Vancomycin Trough Random Vancomycin 09/01/24 09/01/24 05:05 05:16 WBC 8.6 RBC 3.45 L Hgb 11.6 L Hct 34.7 L MCV 100.6 H MCH 33.6 H MCHC 33.4 RDW 13.3 Plt Count 181 D MPV 10.7 Immature Gran % (Auto) 2.0 H Neut % (Auto) 73.3 H Lymph % (Auto) 15.5 L Petroleum % (Auto) 6.5 Eos % (Auto) 2.0 Baso % (Auto) 0.7 Lymph # (Auto) 1.3 Petroleum # (Auto) 0.6 Eos # (Auto) 0.2 Baso # (Auto) 0.1 Abs Immat Gran (auto) 0.17 H Absolute Neuts (auto) 6.3 Absolute Nucleated RBC 0.000 Nucleated RBC % (auto) 0.0 VBG pH 7.54 H VBG pCO2 31 VBG pO2 96 VBG HCO3 27 H VBG O2 Saturation 99.0 VBG Base Excess 5.0 Sodium 141 Potassium 3.9 Chloride 107 Carbon Dioxide 25 Anion Gap 13 BUN 22 H Creatinine 0.75 Estim Creat Clear Calc 42.9 Estimated GFR > 60 Random Glucose 116 H Lactic Acid Lactic Acid F/U @ 2Hr Lactic Acid F/U @ 4Hr Calcium 8.8 Phosphorus 3.6 Magnesium 2.5 Total Bilirubin Direct Bilirubin AST ALT Alkaline Phosphatase Troponin I High Sens B-Natriuretic Peptide Total Protein Albumin 4.1 Triglycerides TSH Random Cortisol Urine Color Urine Appearance Urine pH Ur Specific [place] Urine Protein Urine Glucose (UA) Urine Ketones Urine Blood Urine Nitrite Ur Leukocyte Esterase Urine RBC Urine WBC Ur Squamous Epith Cells Urine Bacteria Hyaline Casts Vancomycin Trough Random Vancomycin Airway Mallampati Class: III TM Dist: <=3cm Loose/Missing/Broken Teeth: Yes Heart: S1S2 Lungs: Bilateral rhonchi Assessment and Plan Assessment Anesthesia Assessment: Anesthesia Plan Discussed and Chart Reviewed Final Anesthetic Review Family History of Problems with Anesthesia: No History of Problems with Anesthesia: No NPO: Yes ASA Class: III Final Preanesthetic Review: No Changes in Pt Med Stat, Meds/Allgs Chart Reviewed, Consent Obtained/Reviewed (consent obtained from Karyna Burton (sister and healthcare proxy)) and Anes Risks/Benef Reviewed Patient Risk: High Procedure Risk: Low Anesthetic Plan Anesthetic Plan: GA and Agree w/ Assess. and Plan Disposition: Inp. Admit - ICU (patient will remain intubated after procedure and transferrred back to ICU)
--- NOTE | 2024-09-01 14:05 | P.OP_ITS ---
Operative Note Operative Note Date of Service: 09/01/24 Narrative: Preop diagnosis: Dysphagia, aspiration pneumonia Postop diagnosis: The same Procedure: PEG tube placement Surgeon: Magnus Cornelius MD paralegal assistant: MYRA Pérez The patient is a 64 year female admitted for the patient pneumonia. She was therefore referred to me for PEG tube placement in view of the risk of we aspiration with her dysphagia. Her sister Karyna who was her healthcare proxy had given consent on her behalf. The patient was brought to the operating room from the ICU. She was intubated on the ICU bed. She was placed in a reverse Trendelenburg position. A surgical time-out was done. The patient was receiving scheduled IV antibiotics in the ICU I inserted the scope into the oral orifice all the way to the oropharynx. The esophageal slit was seen. This was intubated and the scope was advanced gently through the entire length of the esophagus into the stomach. The stomach was insufflated and transillumination was easily seen in the left upper quadrant. Indentation of the anterior stomach wall on this same area was also seen with pressure on this abdominal wall with an index finger. This area was therefore chosen for the insertion site. This was prepped and draped. Lidocaine 1% was used for local anesthesia. A small stab incision was made. A large bore needle with the cannula sheath was inserted all the way to the stomach lumen. The needle was removed. The guidewire was inserted through the cannula and this was has with a snare. I put the guidewire out through the oral cavity and we loop the PEG tube into this. The guidewire was pulled out from the abdominal wall along with the PEG tube until this felt snug on the abdominal wall. I reinserted the scope. I examined the stomach lumen. The inner bolster was seen. This appeared to be in good position. There was no bleeding or any lesions seen. The scope was then withdrawn completely The external bolster was positioned to be snug on the skin. The procedure was then completed. The patient tolerated procedure well. There were no immediate complications. There was minimal blood loss. The patient was then transferred to the ICU intubated.
--- NOTE | 2024-09-01 14:30 | PM.CCPN ---
Subjective Subjective Date of Service: 09/01/24 Interval History: 64-year-old lady with underlying Down syndrome, hypothyroidism, dementia, Jorge L's admitted on 08/24/2024 with dyspnea, hypoxia, and worsening lethargy. On ER evaluation patient hypotensive with poor response to initial IV fluids requiring pressor support, admitted to the intensive care unit. Hospital course further complicated by aspiration pneumonia requiring intubation 08/25/2024 and extubation within 24 hours. Patient continues with recurrent small volume aspiration resulting in hypoxemia and bradycardia requiring further supplemental oxygen and pressor support. Now status post placement of prednisone gastrostomy on 09/01/2024, returned postop intubated. No events overnight. Critical Care Time (minutes): 60 Physical Exam Vital Signs: Vital Signs: Last Vital Signs Temp 98.5 F 09/01/24 08:00 Pulse 70 09/01/24 13:00 Resp 20 09/01/24 13:00 BP 105/56 L 09/01/24 13:00 Pulse Ox 98 09/01/24 13:00 O2 Del Method Nasal Cannula 09/01/24 13:00 O2 Flow Rate 5 09/01/24 13:00 FiO2 50 08/26/24 09:00 Oxygen Flow Rate 3 08/26/24 22:47 BMI result Body Mass Index 17.1 Const: General: no acute distress and other (Sedated on ventilatory support) Eyes: Sclerae: sclerae normal EOM: EOMs intact bilaterally Neck: Neck: Yes no lymphadenopathy, Yes trachea midline and Yes supple Resp: Auscultation: clear to auscultation bilaterally Cardio: Rate: regular rate Rhythm: regular rhythm Heart sounds: no gallops, no murmurs and no rubs GI: Inspection: Yes G-tube present Palpation (GI): Soft to palpation and Other GI palpation findings present ( Nontender) Auscultation: normal bowel sounds Extrem: General: Yes no pedal edema, No clubbing and No cyanosis Objective Data Labs 09/01/24 05:05 09/01/24 05:05 Labs: Laboratory Results - last 24 hr 09/01/24 09/01/24 05:05 05:16 WBC 8.6 RBC 3.45 L Hgb 11.6 L Hct 34.7 L MCV 100.6 H MCH 33.6 H MCHC 33.4 RDW 13.3 Plt Count 181 D MPV 10.7 Immature Gran % (Auto) 2.0 H Neut % (Auto) 73.3 H Lymph % (Auto) 15.5 L [place] % (Auto) 6.5 Eos % (Auto) 2.0 Baso % (Auto) 0.7 Lymph # (Auto) 1.3 [place] # (Auto) 0.6 Eos # (Auto) 0.2 Baso # (Auto) 0.1 Abs Immat Gran (auto) 0.17 H Absolute Neuts (auto) 6.3 Absolute Nucleated RBC 0.000 Nucleated RBC % (auto) 0.0 VBG pH 7.54 H VBG pCO2 31 VBG pO2 96 VBG HCO3 27 H VBG O2 Saturation 99.0 VBG Base Excess 5.0 Sodium 141 Potassium 3.9 Chloride 107 Carbon Dioxide 25 Anion Gap 13 BUN 22 H Creatinine 0.75 Estim Creat Clear Calc 42.9 Estimated GFR > 60 Random Glucose 116 H Calcium 8.8 Phosphorus 3.6 Magnesium 2.5 Albumin 4.1 Microbiology Microbiology Results: Microbiology 08/24/24 13:13 Blood - Venous Blood Culture - Final No growth after 5 days. 08/24/24 13:13 Blood - Venous Blood Culture - Final No growth after 5 days. 08/24/24 Unknown Urine clean catch - Clean Catch Midstream Urine Culture - Final No growth. Progress Note: A&P Assessment and plan (1) PEG (percutaneous endoscopic gastrostomy) status: Status: Acute (2) Shock: Status: Acute (3) Down syndrome: Status: Acute (4) Jorge L's disease: Status: Acute (5) Pulmonary aspiration: Status: Acute Plan Assessment: 64-year-old lady with underlying Down syndrome admitted with dyspnea/hypoxia/hypotension secondary to pulmonary aspiration initially requiring ventilatory support, now extubated, however with persistent recurrent small volume aspirations resulting in hypoxia and bradycardia requiring supplemental oxygen and pressor support Plan: Neuro: Underlying Down syndrome and dementia. Cardiac: Shock, continue to titrate off pressor support as tolerated. Underlying diastolic dysfunction. Pulmonary: Acute hypoxic respiratory failure secondary to recurrent aspirations, now status post pilonidal gastrostomy, returned intubated postop, continue to titrate off ventilatory support as tolerated. Renal: No acute issues. Endo: No acute issues. Underlying history of Jorge L's hypothyroidism, continue Synthroid. GI: Status post PEG on 09/01/2024. General surgery service care appreciated. ID: Empiric coverage pulmonary aspiration. Heme/Onc: No acute issues. Psych: No acute issues. Miscellaneous: No acute issues. Prophylaxis: Heparin Diet: PPN Critical care time spent: 60 minutes Quality Stroke Does the patient have a stroke diagnosis?: No VTE Prior VTE?: No VTE Risk Level:: Medical - moderate - high VTE Device Contraindication: N/A - Device Ordered VTE Drug Contraindication: N/A - Med Ordered
[2024-09-01] MEDS: propofoL 1,000 MG/100 ML VIAL 6.46 MG IVCONT (14:35)
[2024-09-01 14:39] LABS: VBG HCO3 26 mmol/L (22-26); VBG pCO2 30 mmHg; VBG pH 7.54 (7.32-7.43); VBG pO2 114 mmHg
[2024-09-01] MEDS: levoFLOXacin/D5W 750 MG/150 ML PIGGYBACK 100 MG IV (14:47)
[2024-09-01] MEDS: Chlorhexidine Gluc Oral Rinse 15 ML MOUTHWASH BUCCAL ×2 (14:47→21:39)
[2024-09-01] MEDS: Norepinephrine Bitartrate/D5W 8 MG/250 ML PLAST..BAG 11.04 MG IVCONT (15:18)
[2024-09-01 19:16] LABS: Venous Blood Gas Refer to POC result
[2024-09-01] MEDS: Parenteral Nutrition 1,320 ML 55 ML IV (21:40)
[2024-09-01] MEDS: propofoL 1,000 MG/100 ML VIAL 10.77 MG IVCONT (23:18)
[2024-09-02] VITALS (44 sets, daily range): BP systolic 87–127; BP diastolic 40–88; PULSE 48–82; RESP 14–29; TEMP 35–36.9; O2SAT 65–99; BMI 16.3
[2024-09-02] MEDS: Levothyroxine Sodium 100 MCG/5 ML VIAL 75 MCG IVPUSH (05:14)
[2024-09-02 05:20] LABS: VBG Base Excess 4.2 mmol/L; VBG HCO3 27 mmol/L (22-26); VBG pCO2 34 mmHg; VBG pO2 64 mmHg
[2024-09-02 05:21] LABS: Venous Blood Gas Refer to POC result
[2024-09-02 05:42] LABS: MANUAL DIFF FLAG NO
[2024-09-02 05:46] LABS: Basophils Absolute Auto 0.1 X10*3/uL (0.0-0.2); Basophils Percent Auto 0.8 % (0-2); Eosinophils Absolute Auto 0.2 X10*3/uL (0.0-0.4); Hematocrit 34.8 % (37.0-47.0); Hemoglobin 11.7 g/dl (12.0-16.0); Imm Gran Abs Auto 0.15 X10*3/uL (0.00-0.03); Imm Gran Pct Auto 1.5 % (0.0-0.4); Lymphocytes Absolute Auto 1.2 X10*3/uL (1.2-4.9); Lymphocytes Percent Auto 11.6 % (20-40); Mean Corpuscular HGB Conc 33.6 g/dl (31.0-35.0); Mean Corpuscular Hemoglobin 34.2 pg (27.0-33.0); Mean Corpuscular Volume 101.8 fL (80.0-98.0); Mean Platelet Volume 10.7 fL (9.4-12.3); Monocytes Absolute Auto 0.6 X10*3/uL (0.1-1.2); Monocytes Percent Auto 6.1 % (2-11); Neutrophils Absolute Auto 7.9 x10*3/uL (2.0-8.3); Platelet Count 205 X10*3/uL (160-400); Red Blood Count 3.42 X10*6/uL (4.20-5.50); Red Cell Distribution Width 13.3 % (11.0-16.0); White Blood Count 10.1 X10*3/uL (4.8-10.8)
--- NOTE | 2024-09-02 05:57 | PC.NURSE ---
Addendum entered by Tyron Stanford RN 09/02/24 06:41: PROPOFOL WEANED FROM 50 TO 30 MCG/KG/MIN THIS AM...PATIENT AWAKE..TRACKS SPEAKER...DOWNS SPONTANEOUSLY BUT NOT TO COMMAND..BILATERAL SOFT WRIST RESTRAINTS REMAIN IN PLACE FOR AIRWAY SAFETY Original Note: CARE ASSUMED 7PM..REMAINS INTUBATED/VCV VENT SUPPORT POST-OP FROM PEG PLACEMENT...PROPOFOL AND LEVOPHED PER SEP....HAD NOT VOIDED 7PM-12AM...BLADDER SCANNED 401ml 12AM AND 696ml 5AM....TO STRAIGHT CATH PER ICU PHOTOFLASH POWDER MIXER BUT VOIDED 400ml VIA PURWIK EXTERNAL CATHETER BEFORE CATHETERIZATION...CATHETERIZATION HELD AT PRESENT PER ICU PHOTOFLASH POWDER MIXER.....MAP GOAL 60 OR . PER PROVIDER
[2024-09-02 06:02] LABS: Albumin Level 3.7 g/dL (3.5-5.0); Anion Gap 13 (12-20); Blood Urea Nitrogen 24 mg/dL (9-16); Calcium 8.8 mg/dL (8.4-10.2); Carbon Dioxide 24 mmol/L (22-29); Chloride 106 mmol/L (96-108); Creatinine Clr Calc Pharmacy 45.7; Estimated Glomerular Filt Rate > 60; Glucose Random 123 mg/dL (60-115); Magnesium 2.5 mg/dL (1.6-2.6); Phosphorus 3.6 mg/dL (2.7-4.5); Potassium 4.3 mmol/L (3.3-5.1); Sodium 139 mmol/L (135-145)
[2024-09-02] MEDS: 0.9 % Sodium Chloride Flush 3 ML SYRINGE IVFLUSH ×3 (08:11→23:22)
--- NOTE | 2024-09-02 08:11 | HO.POSTANES ---
Post Anesthesia Evaluation Post Anesthesia Evaluation Date of Service: 09/02/24 Vital Signs: Vital Signs Temp Pulse Resp BP Pulse Ox O2 Del Method FiO2 09/02/24 07:37 99 30 09/02/24 07:28 30 09/02/24 06:59 53 18 110/53 L 92 Mechanical Ventilation 35 09/02/24 06:21 56 24 H 111/59 L 94 09/02/24 06:00 56 21 H 111/59 L 92 Mechanical Ventilation 09/02/24 04:58 52 17 109/58 L 94 Mechanical Ventilation 09/02/24 04:46 30 09/02/24 03:55 97.3 F 50 14 103/47 L 94 Mechanical Ventilation 09/02/24 03:21 30 09/02/24 02:57 53 17 98/49 L 95 Mechanical Ventilation 09/02/24 02:00 48 L 16 98/44 L 95 Mechanical Ventilation 09/02/24 01:17 52 94/41 L 09/02/24 00:57 48 L 15 100/40 L 93 Mechanical Ventilation 09/02/24 00:43 52 16 90/41 L 93 09/02/24 00:00 30 09/02/24 00:00 97.7 F 59 16 99/45 L 94 Mechanical Ventilation 09/01/24 23:45 30 09/01/24 23:18 54 18 96/52 L 95 09/01/24 23:18 54 18 96/52 L 95 09/01/24 22:52 50 17 101/47 L 95 Mechanical Ventilation 09/01/24 21:51 48 L 14 98/50 L 94 Mechanical Ventilation 09/01/24 21:00 98.4 F 50 14 102/56 L 96 Mechanical Ventilation 09/01/24 20:12 30 Anesthesia: General Endotracheal-GETA Mental Status: Sedated Hydration: Adequate Anesthesia-Related Issues: No Anes. Related Issues Comments: Patient remains intubated and sedated in ICU. Still on levophed. Care per primary ICU team. Anesthesia team to follow-up as necessary.
--- NOTE | 2024-09-02 08:19 | P.PNGS_ITS ---
Subjective Subjective Date of Service: 09/02/24 <Gill Pérez PA-C - Last Filed: 09/02/24 08:27> 09/02/24 <Magnus Cornelius MD - Last Filed: 09/02/24 10:06> Interval history: No events overnight. Remains intubated, on vent. Weaning sedation per RN. <Gill Pérez PA-C - Last Filed: 09/02/24 08:27> Physical Exam 2 Vital Signs: Vital Signs: Last Vital Signs Temp 97.3 F 09/02/24 03:55 Pulse 62 09/02/24 08:11 Resp 18 09/02/24 06:59 BP 112/59 L 09/02/24 08:11 Pulse Ox 99 09/02/24 07:37 O2 Del Method Mechanical Ventil ation 09/02/24 06:59 O2 Flow Rate 5 09/01/24 15:00 FiO2 30 09/02/24 07:37 Oxygen Flow Rate 3 08/26/24 22:47 BMI result Body Mass Index 16.3 <Gill Pérez PA-C - Last Filed: 09/02/24 08:27> Const: Other: moves to verbal and tactile stimuli <Gill Pérez PA-C - Last Filed: 09/02/24 08:27> General: no acute distress <Gill Pérez PA-C - Last Filed: 09/02/24 08:27> GI: Other: abd soft bolster snug and in place <Gill Pérez PA-C - Last Filed: 09/02/24 08:27> Palpation (GI): nontender and no guarding <Gill Pérez PA-C - Last Filed: 09/02/24 08:27> Skin: General skin exam: no rashes or lesions noted <DANIEL Gray Last Filed: 09/02/24 08:27> Objective Data Active Medications Chlorhexidine Gluconate (Chlorhexidine Gluc Oral Rinse 15 Ml Mouthwash) 15 ml BUCCAL TID [facility] Last Admin: 09/01/24 21:39 Dose: 15 ml Documented By: VIVIANA Enoxaparin Sodium (Enoxaparin Sodium 40 Mg/0.4 Ml Syringe) 40 mg SUBCUT Q24H DANDY Last Admin: 09/01/24 08:25 Dose: 40 mg Documented By: BENJAMIN Famotidine (Famotidine/Pf 20 Mg/2 Ml Vial) 20 mg IVPUSH DAILY [facility] Norepinephrine Bitartrate (Levophed) 8 mg in 250 mls @ 0 mls/hr IVCONT .Q0M DANDY; Protocol Last Titration: 09/02/24 08:11 Dose: 0.2 mcg/kg/min, 12.26 mls/hr Documented By: FARZANEH Levofloxacin (Levaquin) 750 mg in 150 mls @ 100 mls/hr IV Q24H DANDY Last Infusion: 09/01/24 16:19 Dose: Infused Documented By: SOLISPE Nutrition (Parenteral) (Parenteral Nutrition) 1,320 mls @ 55 mls/hr IV .Q24H DANDY; Protocol Stop: 09/02/24 20:59 Last Admin: 09/01/24 21:40 Dose: 55 mls/hr Documented By: VIVIANA Propofol (Diprivan) 1,000 mg in 100 mls @ 0 mls/hr IVCONT .Q0M DANDY; Protocol Last Titration: 09/02/24 08:11 Dose: 20 mcg/kg/min, 4.31 mls/hr Documented By: FARZANEH Levothyroxine Sodium (Levothyroxine Sodium 100 Mcg/5 Ml Vial) 75 mcg IVPUSH DAILY@0600 [facility] Last Admin: 09/02/24 05:14 Dose: 75 mcg Documented By: VIVIANA Pharmacy Consult (Consult Rx Parenteral Nutrition Ordering) 1 each MISCELLANE DAILY PRN PRN Reason: Consult order Sodium Chloride (0.9 % Sodium Chloride Flush 3 Ml Syringe) 3 ml IVFLUSH QSHIFT [facility] Last Admin: 09/02/24 08:11 Dose: 3 ml Documented By: FARZANEH <Gill Pérez PA-C - Last Filed: 09/02/24 08:27> Labs CBC & Chem 7: 09/02/24 05:12 09/02/24 05:12 <Gill Pérez PA-C - Last Filed: 09/02/24 08:27> Labs: Laboratory Results - last 24 hr 09/01/24 09/02/24 09/02/24 14:35 05:12 05:16 MCV 101.8 H MCH 34.2 H MCHC 33.6 RDW 13.3 Plt Count 205 MPV 10.7 Immature Gran % (Auto) 1.5 H Neut % (Auto) 78.0 H Lymph % (Auto) 11.6 L [place] % (Auto) 6.1 Eos % (Auto) 2.0 Baso % (Auto) 0.8 Lymph # (Auto) 1.2 [place] # (Auto) 0.6 Eos # (Auto) 0.2 Baso # (Auto) 0.1 Abs Immat Gran (auto) 0.15 H Absolute Neuts (auto) 7.9 Absolute Nucleated RBC 0.000 Nucleated RBC % (auto) 0.0 VBG pH 7.54 H 7.50 H VBG pCO2 30 34 VBG pO2 114 64 VBG HCO3 26 27 H VBG O2 Saturation 100.0 92.0 VBG Base Excess 4.0 4.2 Anion Gap 13 Estim Creat Clear Calc 45.7 Estimated GFR > 60 Random Glucose 123 H Calcium 8.8 Phosphorus 3.6 Magnesium 2.5 Albumin 3.7 <Gill Pérez PA-C - Last Filed: 09/02/24 08:27> Procedures Date of Service Date of Service: 09/02/24 <Gill Pérez PA-C - Last Filed: 09/02/24 08:27> 09/02/24 <Magnus Cornelius MD - Last Filed: 09/02/24 10:06> Progress Note: A&P Assessment and plan (1) PEG (percutaneous endoscopic gastrostomy) status: Status: Acute <Gill Pérez PA-C - Last Filed: 09/02/24 08:27> Assessment and Plan: No events overnight Looks comfortable Still intubated but with good spontaneous breaths, good volumes Abdomen is soft and benign Okay to start tube feeds today To be extubated as well Seen and examined independently <Magnus Cornelius MD - Last Filed: 09/02/24 10:06> (2) Aspiration pneumonia: Status: Acute <Gill Pérez PA-C - Last Filed: 09/02/24 08:27> Assessment and Plan: POD #1 s/p PEG tube placement. Abd benign, peg tube in place, bolster remains snug, site clean and dry. Ok to begin to use PEG tube today. <Gill Pérez PA-C - Last Filed: 09/02/24 08:27> Time Spent With Patient Time: Total time managing care of this patient today ____ minutes. <Gill Pérez PA-C - Last Filed: 09/02/24 08:27> Quality Stroke Does the patient have a stroke diagnosis?: No <Gill Pérez PA-C - Last Filed: 09/02/24 08:27> VTE Prior VTE?: No <Gill Pérez PA-C - Last Filed: 09/02/24 08:27> VTE Risk Level:: Medical - moderate - high <Gill Pérez PA-C - Last Filed: 09/02/24 08:27> VTE Device Contraindication: N/A - Device Ordered <DANIEL Gray Last Filed: 09/02/24 08:27> VTE Drug Contraindication: N/A - Med Ordered <Gill Pérez PA-C - Last Filed: 09/02/24 08:27>
[2024-09-02] MEDS: Chlorhexidine Gluc Oral Rinse 15 ML MOUTHWASH BUCCAL (08:50)
[2024-09-02] MEDS: Famotidine/PF 20 MG/2 ML VIAL IVPUSH (08:51)
[2024-09-02] MEDS: Enoxaparin Sodium 40 MG/0.4 ML SYRINGE SUBCUT (08:51)
--- NOTE | 2024-09-02 09:53 | P.CDIM_ITS ---
PROVIDER RESPONSE TEXT: To clarify, the appropriate diagnosis supported by the clinical indicators: Acute pulmonary edema due to heart failure: Secondary to acute on chronic diastolic heart failure QUERY TEXT: PHYSICIAN'S DOCUMENTATION REQUEST Date of Query: 09/02/2024 07:55 AM EST Patient Name: Whitney Lucero Admit Date: 08/25/2024 Dear Alan Abraham MD, A review of the medical record indicates additional documentation may be needed. Please review below and update the documentation accordingly. Clinical Indicators: ICU progress note 08/28 - Acute hypoxic respiratory failure, likely multi-factorial, d/t aspiration pn eumonia, pulmonary edema. ICU progress note 09/01 - Shock, continue to titrate off pressor support as tolerated. Underlying diastolic dysfunction. pitting edema, BNP 705 History of Echo performed. Based on the above, could you please provide, in the Progress Notes, further specificity regarding th e acuity and etiology of the pulmonary edema? Acute non-cardiac pulmonary edema due to other cause Please specify other cause Acute pulmonary edema due to heart failure Please further specify the type and acuity Chronic pulmonary edema due to non-cardiac etiology Please specify cause Chronic pulmonary edema due to heart failure Please further specify the type and acuity Other (explain) Clinically unable to determine (explain) Thank you, Colleen Beckford, CCS, CDIS Use of terms such as suspected, likely, concern for, or probable (associated with a specific diagnosi s that is being evaluated, monitored, or treated as if it exists) are acceptable and can be coded in the inpatient se tting, when documented at the time of discharge. Please use your independent medical judgment in providing your response. THIS QUERY IS PART OF THE PERMANENT MEDICAL RECORD
--- NOTE | 2024-09-02 10:28 | MHC.CLN ---
PT IS S/P PEG TUBE DISCUSSED AT ROUNDS WITH MD-PLAN TO START TF REVIEWED LABS RECOMMEND TF OSMOLITE 1.5 AT MAX GOAL RATE 30ML/HR WITH 240ML FREE WATER FLUSHES Q 8 HRS TO PROVIDE 1080KCALS (30KCALS/KG), 45G PROTEIN (1.2G/KG), 1269ML TOTAL WATER FROM FORMULA AND FLUSHES (35ML/KG) START FORMULA AT 20ML/HR AND INCREASE BY 10ML Q 4 HRS UNTIL MAX GOAL IS ACHIEVED MONITOR TOLERANCE AND LYTES REPLETE LYTES NEEDED SEE ALSO FULL CLINICAL NUTRITION ASSESSMENT
[2024-09-02] MEDS: Norepinephrine Bitartrate/D5W 8 MG/250 ML PLAST..BAG 9.81 MG IVCONT (10:41)
--- NOTE | 2024-09-02 11:55 | PM.CCPN ---
Subjective Subjective Date of Service: 09/02/24 Interval History: 64-year-old lady with underlying Down syndrome, hypothyroidism, dementia, Jorge L's admitted on 08/24/2024 with dyspnea, hypoxia, and worsening lethargy. On ER evaluation patient hypotensive with poor response to initial IV fluids requiring pressor support, admitted to the intensive care unit. Hospital course further complicated by aspiration pneumonia requiring intubation 08/25/2024 and extubation within 24 hours. Patient continues with recurrent small volume aspiration resulting in hypoxemia and bradycardia requiring further supplemental oxygen and pressor support. Now status post placement of prednisone gastrostomy on 09/01/2024, returned postop intubated. No events overnight. Extubated uneventfully this a.m. Critical Care Time (minutes): 45 Physical Exam Vital Signs: Vital Signs: Last Vital Signs Temp 97.6 F 09/02/24 08:00 Pulse 70 09/02/24 11:21 Resp 17 09/02/24 11:00 BP 107/64 09/02/24 11:21 Pulse Ox 96 09/02/24 11:00 O2 Del Method Nasal Cannula 09/02/24 11:00 O2 Flow Rate 2 09/02/24 11:00 FiO2 30 09/02/24 09:44 Oxygen Flow Rate 3 08/26/24 22:47 BMI result Body Mass Index 16.3 Const: General: no acute distress, alert and awake Eyes: Sclerae: sclerae normal EOM: EOMs intact bilaterally Neck: Neck: Yes no lymphadenopathy, Yes trachea midline and Yes supple Resp: Effort & Inspection: normal respiratory effort and no respiratory distress Auscultation: clear to auscultation bilaterally Cardio: Rate: regular rate Rhythm: regular rhythm Heart sounds: no gallops, no murmurs and no rubs GI: Inspection: Yes G-tube present Palpation (GI): Soft to palpation and Other GI palpation findings present ( Nontender) Auscultation: normal bowel sounds Extrem: General: Yes no pedal edema, No clubbing and No cyanosis Objective Data Labs 09/02/24 05:12 09/02/24 05:12 Labs: Laboratory Results - last 24 hr 09/01/24 09/02/24 09/02/24 14:35 05:12 05:16 WBC 10.1 RBC 3.42 L Hgb 11.7 L Hct 34.8 L MCV 101.8 H MCH 34.2 H MCHC 33.6 RDW 13.3 Plt Count 205 MPV 10.7 Immature Gran % (Auto) 1.5 H Neut % (Auto) 78.0 H Lymph % (Auto) 11.6 L [place] % (Auto) 6.1 Eos % (Auto) 2.0 Baso % (Auto) 0.8 Lymph # (Auto) 1.2 [place] # (Auto) 0.6 Eos # (Auto) 0.2 Baso # (Auto) 0.1 Abs Immat Gran (auto) 0.15 H Absolute Neuts (auto) 7.9 Absolute Nucleated RBC 0.000 Nucleated RBC % (auto) 0.0 VBG pH 7.54 H 7.50 H VBG pCO2 30 34 VBG pO2 114 64 VBG HCO3 26 27 H VBG O2 Saturation 100.0 92.0 VBG Base Excess 4.0 4.2 Sodium 139 Potassium 4.3 Chloride 106 Carbon Dioxide 24 Anion Gap 13 BUN 24 H Creatinine 0.67 Estim Creat Clear Calc 45.7 Estimated GFR > 60 Random Glucose 123 H Calcium 8.8 Phosphorus 3.6 Magnesium 2.5 Albumin 3.7 Microbiology Microbiology Results: Microbiology 08/24/24 13:13 Blood - Venous Blood Culture - Final No growth after 5 days. 08/24/24 13:13 Blood - Venous Blood Culture - Final No growth after 5 days. 08/24/24 Unknown Urine clean catch - Clean Catch Midstream Urine Culture - Final No growth. Progress Note: A&P Assessment and plan (1) Shock: Status: Acute (2) Down syndrome: Status: Acute (3) Jorge L's disease: Status: Acute (4) PEG (percutaneous endoscopic gastrostomy) status: Status: Acute (5) Pulmonary aspiration: Status: Acute Plan Assessment: 64-year-old lady with underlying Down syndrome admitted with dyspnea/hypoxia/hypotension secondary to pulmonary aspiration initially requiring ventilatory support, now extubated, however with persistent recurrent small volume aspirations resulting in hypoxia and bradycardia requiring supplemental oxygen and pressor support Plan: Neuro: Underlying Down syndrome and dementia. Cardiac: Shock, continue to titrate off pressor support as tolerated. Underlying diastolic dysfunction. Pulmonary: Acute hypoxic respiratory failure secondary to recurrent aspirations, now status post pilonidal gastrostomy, returned intubated postop, extubated uneventfully this a.m. Renal: No acute issues. Endo: No acute issues. Underlying history of Jorge L's hypothyroidism, continue Synthroid. GI: Status post PEG on 09/01/2024. General surgery service care appreciated. ID: Empiric coverage for pulmonary aspiration. Heme/Onc: No acute issues. Psych: No acute issues. Miscellaneous: No acute issues. Prophylaxis: Heparin Diet: Tube feeds Critical care time spent: 45 minutes Quality Stroke Does the patient have a stroke diagnosis?: No VTE Prior VTE?: No VTE Risk Level:: Medical - moderate - high VTE Device Contraindication: N/A - Device Ordered VTE Drug Contraindication: N/A - Med Ordered
--- NOTE | 2024-09-02 13:30 | MHC.SLORD ---
Speech Language Pathology Order Status: Per RN, patient was extubated today. Patient is s/p PEG placement, with plan to start TFs. Patient is resting comfortably in bed. No PO trials given d/t elevated aspiration risk. [employer] RECEIPT [employer]ER will continue to follow.
--- NOTE | 2024-09-02 14:34 | MHC.CM.PN ---
PT REMAINS IN ICU, CONTINUES WITH PRESSOR SUPPORT. PT TO START ON TUBE FEEDS S/P PEG PLACEMENT, [facility]
--- NOTE | 2024-09-02 18:56 | PC.NURSE ---
Assumed care at 0700- pt. vented and sedated. Sedation vacation performed per SEP, PSV trial done per vent assessment. Pt. extubated at approx. 0935 without incident. Norepinephrine gtt titrated per SEP. TF began via PEG- see TF assessment. Plan of care ongoing.
[2024-09-02] MEDS: diphenhydrAMINE HCL 50 MG/ML VIAL 25 MG IVPUSH (23:20)
--- NOTE | 2024-09-02 23:31 | HO.SKINPHOTO ---
Location: R forearm Category: Stage: Length: Width: Depth: cm Location: L lateral forearm Category: Stage: Length: Width: Depth: cm
[2024-09-03] VITALS (30 sets, daily range): BP systolic 84–145; BP diastolic 42–90; PULSE 55–93; RESP 15–28; TEMP 36.2–37.1; O2SAT 89–98; BMI 13.4
[2024-09-03] MEDS: Levothyroxine Sodium 100 MCG/5 ML VIAL 75 MCG IVPUSH (04:59)
[2024-09-03] MEDS: Furosemide 40 MG/4 ML VIAL IVPUSH (04:59)
[2024-09-03 05:24] LABS: VBG Base Excess 7.3 mmol/L; VBG HCO3 32 mmol/L (22-26); VBG pCO2 44 mmHg; VBG pH 7.46 (7.32-7.43); VBG pO2 58 mmHg
[2024-09-03 05:55] LABS: MANUAL DIFF FLAG NO
[2024-09-03 05:57] LABS: Basophils Absolute Auto 0.1 X10*3/uL (0.0-0.2); Basophils Percent Auto 0.6 % (0-2); Eosinophils Absolute Auto 0.1 X10*3/uL (0.0-0.4); Eosinophils Percent Auto 0.9 % (0-4); Hematocrit 36.1 % (37.0-47.0); Hemoglobin 12.1 g/dl (12.0-16.0); Imm Gran Abs Auto 0.08 X10*3/uL (0.00-0.03); Lymphocytes Absolute Auto 1.1 X10*3/uL (1.2-4.9); Lymphocytes Percent Auto 13.6 % (20-40); Mean Corpuscular HGB Conc 33.5 g/dl (31.0-35.0); Mean Corpuscular Hemoglobin 33.5 pg (27.0-33.0); Monocytes Absolute Auto 0.6 X10*3/uL (0.1-1.2); Monocytes Percent Auto 7.2 % (2-11); Neutrophils Absolute Auto 6.3 x10*3/uL (2.0-8.3); Neutrophils Percent Auto 76.7 % (45-73); Platelet Count 208 X10*3/uL (160-400); Red Blood Count 3.61 X10*6/uL (4.20-5.50); Red Cell Distribution Width 13.8 % (11.0-16.0); White Blood Count 8.2 X10*3/uL (4.8-10.8)
[2024-09-03 06:13] LABS: Albumin Level 3.9 g/dL (3.5-5.0); Anion Gap 14 (12-20); Blood Urea Nitrogen 21 mg/dL (9-16); Calcium 9.4 mg/dL (8.4-10.2); Carbon Dioxide 27 mmol/L (22-29); Chloride 108 mmol/L (96-108); Creatinine Clr Calc Pharmacy 38.8; Estimated Glomerular Filt Rate > 60; Glucose Random 110 mg/dL (60-115); Magnesium 2.4 mg/dL (1.6-2.6); Phosphorus 3.5 mg/dL (2.7-4.5); Sodium 145 mmol/L (135-145)
--- NOTE | 2024-09-03 06:32 | PC.NURSE ---
Assumed care at 1900 - pt alert to name only at baseline. On levophed maintaining MAPs >60 - see emar for titrations. HR 60-80s SR on tele. Tolerating tube feeds - see? tube feed assessment. Redness, swelling, and tenderness noted to previously removed? IV sites (R forearm, L forearm) - see previous skin note/photo. [employer] made aware. Benadryl ordered and administered. Sites marked and heat packs applied.? 0500 - Pt sounds course throughout lung pelayo, with audible congestion, spO2 86% on 4L NC increased to 10L NC to maintain spO2 >90%.? NT suctioned - thick [place] blood streak secretions out. [employer] notified. Lasix 40 mg IVP ordered and administered. Purewick in place.? Oral care provided, repositioned Q2H. Safety measures in place.?
[2024-09-03] MEDS: 0.9 % Sodium Chloride Flush 3 ML SYRINGE IVFLUSH ×2 (08:06→17:53)
[2024-09-03] MEDS: Enoxaparin Sodium 40 MG/0.4 ML SYRINGE SUBCUT (08:06)
[2024-09-03] MEDS: Midodrine HCl 10 MG TABLET PO ×3 (09:50→17:53)
--- NOTE | 2024-09-03 10:20 | PM.CCPN ---
Subjective Subjective Date of Service: 09/03/24 Interval History: 64-year-old lady with underlying Down syndrome, hypothyroidism, dementia, Jorge L's admitted on 08/24/2024 with dyspnea, hypoxia, and worsening lethargy. On ER evaluation patient hypotensive with poor response to initial IV fluids requiring pressor support, admitted to the intensive care unit. Hospital course further complicated by aspiration pneumonia requiring intubation 08/25/2024 and extubation within 24 hours. Patient continues with recurrent small volume aspiration resulting in hypoxemia and bradycardia requiring further supplemental oxygen and pressor support. Now status post placement of prednisone gastrostomy on 09/01/2024, returned postop intubated, extubated 09/02/2024. No events overnight. Critical Care Time (minutes): 45 Physical Exam Vital Signs: Vital Signs: Last Vital Signs Temp 98.5 F 09/03/24 08:00 Pulse 62 09/03/24 10:00 Resp 15 09/03/24 10:00 BP 98/50 L 09/03/24 10:00 Pulse Ox 96 09/03/24 10:00 O2 Del Method Nasal Cannula 09/03/24 10:00 O2 Flow Rate 6 09/03/24 10:00 FiO2 30 09/02/24 09:44 Oxygen Flow Rate 3 08/26/24 22:47 BMI result Body Mass Index 13.4 Const: General: no acute distress, alert and awake Eyes: Sclerae: sclerae normal EOM: EOMs intact bilaterally Neck: Neck: Yes no lymphadenopathy, Yes trachea midline and Yes supple Resp: Effort & Inspection: normal respiratory effort and no respiratory distress Auscultation: clear to auscultation bilaterally Cardio: Rate: regular rate Rhythm: regular rhythm Heart sounds: no gallops, no murmurs and no rubs GI: Inspection: Yes G-tube present Palpation (GI): Soft to palpation and Other GI palpation findings present ( Nontender) Auscultation: normal bowel sounds Extrem: General: Yes no pedal edema, No clubbing and No cyanosis Objective Data Labs 09/03/24 05:16 09/03/24 05:16 Labs: Laboratory Results - last 24 hr 09/03/24 09/03/24 05:16 05:20 WBC 8.2 RBC 3.61 L Hgb 12.1 Hct 36.1 L MCV 100.0 H MCH 33.5 H MCHC 33.5 RDW 13.8 Plt Count 208 MPV 11.0 Immature Gran % (Auto) 1.0 H Neut % (Auto) 76.7 H Lymph % (Auto) 13.6 L [place] % (Auto) 7.2 Eos % (Auto) 0.9 Baso % (Auto) 0.6 Lymph # (Auto) 1.1 L [place] # (Auto) 0.6 Eos # (Auto) 0.1 Baso # (Auto) 0.1 Abs Immat Gran (auto) 0.08 H Absolute Neuts (auto) 6.3 Absolute Nucleated RBC 0.000 Nucleated RBC % (auto) 0.0 VBG pH 7.46 H VBG pCO2 44 VBG pO2 58 VBG HCO3 32 H VBG O2 Saturation 87.0 VBG Base Excess 7.3 Sodium 145 Potassium 4.0 Chloride 108 Carbon Dioxide 27 Anion Gap 14 BUN 21 H Creatinine 0.79 Estim Creat Clear Calc 38.8 Estimated GFR > 60 Random Glucose 110 Calcium 9.4 D Phosphorus 3.5 Magnesium 2.4 Albumin 3.9 Microbiology Microbiology Results: Microbiology 08/24/24 13:13 Blood - Venous Blood Culture - Final No growth after 5 days. 08/24/24 13:13 Blood - Venous Blood Culture - Final No growth after 5 days. 08/24/24 Unknown Urine clean catch - Clean Catch Midstream Urine Culture - Final No growth. Progress Note: A&P Assessment and plan (1) Down syndrome: Status: Acute (2) Jorge L's disease: Status: Acute (3) PEG (percutaneous endoscopic gastrostomy) status: Status: Acute (4) Pulmonary aspiration: Status: Acute (5) Acute hypoxic respiratory failure: Status: Acute Plan Assessment: 64-year-old lady with underlying Down syndrome admitted with dyspnea/hypoxia/hypotension secondary to pulmonary aspiration initially requiring ventilatory support, now extubated, however with persistent recurrent small volume aspirations resulting in hypoxia and bradycardia requiring supplemental oxygen and pressor support Plan: Neuro: Underlying Down syndrome and dementia. Cardiac: Shock, continue to titrate off pressor support as tolerated. Underlying diastolic dysfunction. Pulmonary: Acute hypoxic respiratory failure secondary to recurrent aspirations, now status post parenteral gastrostomy, returned intubated postop, extubated 09/02/2024. Renal: No acute issues. Endo: No acute issues. Underlying history of Jorge L's hypothyroidism, continue Synthroid. GI: Status post PEG on 09/01/2024. General surgery service care appreciated. ID: Empiric coverage for pulmonary aspiration. Heme/Onc: No acute issues. Psych: No acute issues. Miscellaneous: No acute issues. Prophylaxis: Heparin Diet: Tube feeds Critical care time spent: 45 minutes Quality Stroke Does the patient have a stroke diagnosis?: No VTE Prior VTE?: No VTE Risk Level:: Medical - moderate - high VTE Device Contraindication: N/A - Device Ordered VTE Drug Contraindication: N/A - Med Ordered
[2024-09-03] MEDS: Norepinephrine Bitartrate/D5W 8 MG/250 ML PLAST..BAG 3.68 MG IVCONT (11:33)
[2024-09-03 12:12] LABS: Venous Blood Gas Refer to POC result
[2024-09-03] MEDS: levoFLOXacin/D5W 750 MG/150 ML PIGGYBACK 100 MG IV (14:08)
--- NOTE | 2024-09-03 18:30 | PC.NURSE ---
Assumed care at 0700. Pt was drowsy but roused to name. titrated levophed and began midodrine per mar. Pt became more active and vocal as the day progressed.
[2024-09-04] VITALS (24 sets, daily range): BP systolic 94–138; BP diastolic 45–63; PULSE 53–94; RESP 13–26; TEMP 36.1–36.8; O2SAT 90–97; BMI 14.1
[2024-09-04] MEDS: 0.9 % Sodium Chloride Flush 3 ML SYRINGE IVFLUSH ×3 (01:09→16:39)
[2024-09-04] MEDS: Levothyroxine Sodium 100 MCG/5 ML VIAL 75 MCG IVPUSH (06:13)
[2024-09-04 06:34] LABS: MANUAL DIFF FLAG NO
[2024-09-04 06:36] LABS: Basophils Absolute Auto 0.1 X10*3/uL (0.0-0.2); Basophils Percent Auto 0.7 % (0-2); Eosinophils Absolute Auto 0.1 X10*3/uL (0.0-0.4); Eosinophils Percent Auto 1.1 % (0-4); Hematocrit 33.8 % (37.0-47.0); Hemoglobin 11.2 g/dl (12.0-16.0); Imm Gran Abs Auto 0.06 X10*3/uL (0.00-0.03); Imm Gran Pct Auto 0.7 % (0.0-0.4); Lymphocytes Absolute Auto 0.8 X10*3/uL (1.2-4.9); Lymphocytes Percent Auto 9.2 % (20-40); Mean Corpuscular HGB Conc 33.1 g/dl (31.0-35.0); Mean Corpuscular Hemoglobin 34.3 pg (27.0-33.0); Mean Corpuscular Volume 103.4 fL (80.0-98.0); Mean Platelet Volume 10.9 fL (9.4-12.3); Monocytes Absolute Auto 0.7 X10*3/uL (0.1-1.2); Monocytes Percent Auto 7.8 % (2-11); Neutrophils Absolute Auto 7.3 x10*3/uL (2.0-8.3); Neutrophils Percent Auto 80.5 % (45-73); Platelet Count 216 X10*3/uL (160-400); Red Blood Count 3.27 X10*6/uL (4.20-5.50); Red Cell Distribution Width 13.7 % (11.0-16.0)
--- NOTE | 2024-09-04 06:36 | PC.NURSE ---
Assumed care at 1900 - pt awake and alert to name only. Titrated off levophed - see emar for titrations. Maintaining spO2 >90% on 6L NC. Tolerating tube feeds. Pt had not voided - bladder scanned?at 0200 for 280 ml. MUSIC COMPOSITION TEACHER notified, order for straight cath - 200 ml clear yellow urine out. Repositioned Q2H, safety measures in place.
[2024-09-04 06:58] LABS: Albumin Level 3.5 g/dL (3.5-5.0); Anion Gap 15 (12-20); Blood Urea Nitrogen 28 mg/dL (9-16); Calcium 9.5 mg/dL (8.4-10.2); Carbon Dioxide 27 mmol/L (22-29); Chloride 104 mmol/L (96-108); Creatinine Clr Calc Pharmacy 33.6; Estimated Glomerular Filt Rate > 60; Glucose Random 112 mg/dL (60-115); Magnesium 2.2 mg/dL (1.6-2.6); Phosphorus 3.3 mg/dL (2.7-4.5); Sodium 142 mmol/L (135-145)
[2024-09-04] MEDS: Midodrine HCl 10 MG TABLET PO ×3 (07:50→16:39)
[2024-09-04] MEDS: Enoxaparin Sodium 40 MG/0.4 ML SYRINGE SUBCUT (09:25)
--- NOTE | 2024-09-04 09:38 | P.PNCC_ITS ---
Subjective Subjective Date of Service: 09/04/24 Interval History: 64-year-old lady with underlying Down syndrome, hypothyroidism, dementia, Jorge L's admitted on 08/24/2024 with dyspnea, hypoxia, and worsening lethargy. On ER evaluation patient hypotensive with poor response to initial IV fluids requiring pressor support, admitted to the intensive care unit. Hospital course further complicated by aspiration pneumonia requiring intubation 08/25/2024 and extubation within 24 hours. Patient continues with recurrent small volume aspiration resulting in hypoxemia and bradycardia requiring further supplemental oxygen and pressor support. Now status post placement of prednisone gastrostomy on 09/01/2024, returned postop intubated, extubated 09/02/2024. No events overnight. Titrated off pressor support. Critical Care Time (minutes): 45 Physical Exam 2 Vital Signs: Vital Signs: Last Vital Signs Temp 97.3 F 09/04/24 08:00 Pulse 66 09/04/24 09:00 Resp 13 09/04/24 09:00 BP 94/52 L 09/04/24 09:00 Pulse Ox 94 09/04/24 09:00 O2 Del Method Nasal Cannula 09/04/24 09:00 O2 Flow Rate 4 09/04/24 09:00 FiO2 30 09/02/24 09:44 Oxygen Flow Rate 3 08/26/24 22:47 BMI result Body Mass Index 14.1 Const: General: no acute distress and alert Nutritional Appearance: not obese Orientation/consciousness: Other orientation findings ( oriented) HEENT: Head: Yes atraumatic Eyes: General: appearance normal, both eyes and all related structures S clerae: sclerae normal EOM: EOMs intact bilaterally Neck: Neck: Yes supple Lymphatic: no lymphadenopathy noted Resp: Effort & Inspection: normal respiratory effort and no use of accessory muscles Auscultation: clear to auscultation bilaterally Cardio: Rate: regular rate Rhythm: regular rhythm Heart sounds: no gallops, no murmurs and no rubs GI: Inspection: Yes G-tube present Skin: General skin exam: other ( warm) Extrem: General: No clubbing, No cyanosis and No edema Objective Data Labs 09/04/24 01:07 09/04/24 05:23 Labs: Laboratory Results - last 24 hr 09/04/24 09/04/24 01:07 05:23 WBC 9.0 RBC 3.27 L Hgb 11.2 L Hct 33.8 L MCV 103.4 H MCH 34.3 H MCHC 33.1 RDW 13.7 Plt Count 216 MPV 10.9 Immature Gran % (Auto) 0.7 H Neut % (Auto) 80.5 H Lymph % (Auto) 9.2 L [place] % (Auto) 7.8 Eos % (Auto) 1.1 Baso % (Auto) 0.7 Lymph # (Auto) 0.8 L [place] # (Auto) 0.7 Eos # (Auto) 0.1 Baso # (Auto) 0.1 Abs Immat Gran (auto) 0.06 H Absolute Neuts (auto) 7.3 Absolute Nucleated RBC 0.000 Nucleated RBC % (auto) 0.0 Sodium 142 Potassium 4.0 Chloride 104 Carbon Dioxide 27 Anion Gap 15 BUN 28 H Creatinine 0.79 Estim Creat Clear Calc 33.6 Estimated GFR > 60 Random Glucose 112 Calcium 9.5 Phosphorus 3.3 Magnesium 2.2 Albumin 3.5 Microbiology Microbiology Results: Microbiology 08/24/24 13:13 Blood - Venous Blood Culture - Final No growth after 5 days. 08/24/24 13:13 Blood - Venous Blood Culture - Final No growth after 5 days. 08/24/24 Unknown Urine clean catch - Clean Catch Midstream Urine Culture - Final No growth. Progress Note: A&P Assessment and plan (1) Down syndrome: Status: Acute (2) Jorge L's disease: Status: Acute (3) PEG (percutaneous endoscopic gastrostomy) status: Status: Acute (4) Acute hypoxic respiratory failure: Status: Acute (5) Pulmonary aspiration: Status: Acute Plan Assessment: 64-year-old lady with underlying Down syndrome admitted with dyspnea/hypoxia/hypotension secondary to pulmonary aspiration initially requiring ventilatory support, now extubated, however with persistent recurrent small volume aspirations resulting in hypoxia and bradycardia requiring supplemental oxygen and pressor support Plan: Neuro: Underlying Down syndrome and dementia. Cardiac: Shock, reolved, titrated off pressor support as tolerated. Underlying diastolic dysfunction. Pulmonary: Acute hypoxic respiratory failure secondary to recurrent aspirations, now status post parenteral gastrostomy, returned intubated postop, extubated 09/02/2024. Continue to titrate off supplemental oxygen as tolerated. Renal: No acute issues. Endo: No acute issues. Underlying history of Jorge L's hypothyroidism, continue Synthroid. GI: Status post PEG on 09/01/2024. General surgery service care appreciated. ID: Empiric coverage for pulmonary aspiration. Heme/Onc: No acute issues. Psych: No acute issues. Miscellaneous: No acute issues. Prophylaxis: Heparin Diet: Tube feeds Critical care time spent: 45 minutes Quality Stroke Does the patient have a stroke diagnosis?: No VTE Prior VTE?: No VTE Risk Level:: Medical - moderate - high VTE Device Contraindication: N/A - Device Ordered VTE Drug Contraindication: N/A - Med Ordered
--- NOTE | 2024-09-04 18:06 | PC.NURSE ---
Assumed care at 0700. Pt able to answer simple questions and make some needs known. TF continued at goal rate of 30mL/hr. Pt did require frequent redirection and education regarding removal of nasal cannula. For details regarding medications, see mar. Pt to be transferred to [facility].
[2024-09-05 04:00] VITALS: BP 115/55; PULSE 66; RESP 17; TEMP 36.3; O2SAT 92
[2024-09-05] MEDS: Levothyroxine Sodium 112 MCG, Levothyroxine Sodium 25 MCG 137 MCG PO (04:57)
[2024-09-05] MEDS: 0.9 % Sodium Chloride Flush 3 ML SYRINGE IVFLUSH ×4 (04:57→19:24)
[2024-09-05 07:35] LABS: Albumin Level 3.5 g/dL (3.5-5.0); Blood Urea Nitrogen 23 mg/dL (9-16); Calcium 9.3 mg/dL (8.4-10.2); Creatinine Clr Calc Pharmacy 38.4; Estimated Glomerular Filt Rate > 60; Glucose Random 101 mg/dL (60-115); Magnesium 2.3 mg/dL (1.6-2.6); Phosphorus 4.3 mg/dL (2.7-4.5)
[2024-09-05 07:43] LABS: Anion Gap 12 (12-20); Carbon Dioxide 32 mmol/L (22-29); Chloride 102 mmol/L (96-108); Sodium 142 mmol/L (135-145)
[2024-09-05] MEDS: Enoxaparin Sodium 40 MG/0.4 ML SYRINGE SUBCUT (08:43)
[2024-09-05] MEDS: Midodrine HCl 10 MG TABLET PO ×3 (08:43→17:44)
--- NOTE | 2024-09-05 11:08 | MHC.CLN ---
F/U PT IS S/P PEG TUBE REVIEWED LABS-UNREMARKABLE CONTINUE TF OSMOLITE 1.5 AT MAX GOAL RATE 30ML/HR WITH 240ML FREE WATER FLUSHES Q 8 HRS PROVIDES 1080KCALS (30KCALS/KG), 45G PROTEIN (1.2G/KG), 1269ML TOTAL WATER FROM FORMULA AND FLUSHES (35ML/KG) MONITOR TOLERANCE AND LYTES
[2024-09-05 11:20] VITALS: BP 96/60; PULSE 65; RESP 18; TEMP 36.2; O2SAT 92
--- NOTE | 2024-09-05 13:00 | MHC.CM.PN ---
Per rounds, pt. is not medically cleared for DC yet. She has a new PEG tube and requires supplemental O2. CM reached out to [facility] residential nurse, Marissa, she is on vacation, covering nurse is Cynthia Jackson at [phone]. Cynthia will send info via email and reach out to her training nurse to begin to prepare for care of pt. when she is medically ready to return to residential.
--- NOTE | 2024-09-05 13:02 | MHC.SLORD ---
Speech Language Pathology Order Status: RN consulted. Pt is stable. ST tx not indicated in acute setting d/t severity of pt dysphagia; pt is s/p PEG placement, nutrition has been started. SOCIAL SERVICES COUNSELOR intervention to be requested if indicated post d/c.
[2024-09-05] MEDS: levoFLOXacin/D5W 750 MG/150 ML PIGGYBACK 100 MG IV (14:45)
[2024-09-05 16:00] VITALS: BP 100/56; PULSE 61; RESP 18; TEMP 36.2; O2SAT 92
--- NOTE | 2024-09-05 18:28 | HO.PM.IMPN ---
Subjective Subjective Date of Service: 09/05/24 Interval History: 64-year-old lady with underlying Down syndrome, hypothyroidism, dementia, Jorge L's admitted on 08/24/2024 with dyspnea, hypoxia, and worsening lethargy. On ER evaluation patient hypotensive with poor response to initial IV fluids requiring pressor support, admitted to the intensive care unit. Hospital course further complicated by aspiration pneumonia requiring intubation 08/25/2024 and extubation within 24 hours. Patient continues with recurrent small volume aspiration resulting in hypoxemia and bradycardia requiring further supplemental oxygen and pressor support. Now status post placement of gastrostomy tube on 09/01/2024, returned postop intubated, extubated 09/02/2024. Transfered to medical floor on 09/04. Respiratory status appear ok, however sounds congested and seems to be tolerating tube feed. Physical Exam Vital Signs: Vital Signs: Last Vital Signs Temp 97.2 F 09/05/24 16:00 Pulse 61 09/05/24 16:00 Resp 18 09/05/24 16:00 BP 100/56 L 09/05/24 16:00 Pulse Ox 92 09/05/24 16:00 O2 Del Method Nasal Cannula 09/05/24 16:00 O2 Flow Rate 2.5 09/05/24 16:00 FiO2 30 09/02/24 09:44 Oxygen Flow Rate 3 08/26/24 22:47 BMI result Body Mass Index 14.1 Const: Other: General: no acute distress Resp: rhonchi CVS: S1,S2,RRR GI: +BS, NT, no distention Skin: No rash Neuro: motor grossly intact Psych: appropriate affect Objective Data Active Medications Enoxaparin Sodium (Enoxaparin Sodium 40 Mg/0.4 Ml Syringe) 40 mg SUBCUT Q24H [facility] Last Admin: 09/05/24 08:43 Dose: 40 mg Documented By: ARNULFO Levofloxacin (Levaquin) 750 mg in 150 mls @ 100 mls/hr IV Q48H [facility] Last Infusion: 09/05/24 17:42 Dose: 100 mls/hr Documented By: ARNULFO Levothyroxine Sodium 112 mcg/ (Levothyroxine Sodium 25 mcg) 137 mcg PO DAILY@0600 [facility] Last Admin: 09/05/24 04:57 Dose: 137 mcg Documented By: LUCERO Midodrine (Midodrine Hcl 10 Mg Tablet) 10 mg PO TIDWM [facility] Last Admin: 09/05/24 17:44 Dose: 10 mg Documented By: ARNULFO Pharmacy Consult (Consult Rx Parenteral Nutrition Ordering) 1 each MISCELLANE DAILY PRN PRN Reason: Consult order Sodium Chloride (0.9 % Sodium Chloride Flush 3 Ml Syringe) 3 ml IVFLUSH QSHIFT [facility] Last Admin: 09/05/24 14:46 Dose: 3 ml Documented By: ARNULFO Labs 09/04/24 01:07 09/05/24 06:30 Labs: Laboratory Results - last 24 hr 09/05/24 06:30 Anion Gap 12 Estim Creat Clear Calc 38.4 Estimated GFR > 60 Random Glucose 101 Calcium 9.3 Phosphorus 4.3 Magnesium 2.3 Albumin 3.5 Assessment and Plan (1) Shock: Status: Acute (2) Jorge L's disease: Status: Acute (3) Acute hypoxemic respiratory failure due to COVID-19: Status: Acute (4) Pneumonia: Status: Acute Plan 64-year-old lady with underlying Down syndrome admitted with dyspnea/hypoxia/hypotension secondary to pulmonary aspiration initially requiring ventilatory support, now extubated, however with persistent recurrent small volume aspirations resulting in hypoxia and bradycardia requiring supplemental oxygen and pressor support Plan: Neuro: Underlying Down syndrome and dementia. stable Cardiac: Shock requied vasopressors. resolved., Pulmonary: Acute hypoxic respiratory failure secondary to recurrent aspirations, now status post parenteral gastrostomy, intubated postop, extubated 09/02/2024. Continue to titrate off supplemental oxygen as tolerated. Renal: No acute issues. Endo: No acute issues. Underlying history of Jorge L's hypothyroidism, continue Synthroid. GI: Status post PEG on 09/01/2024. General surgery service care appreciated. ID: Empiric coverage for pulmonary aspiration. Heme/Onc: No acute issues. Psych: No acute issues. Miscellaneous: No acute issues. Prophylaxis: Heparin Diet: Tube feeds Full code, Dispo: [place] is ultimately to return to intermediate. Quality Stroke Does the patient have a stroke diagnosis?: No VTE Prior VTE?: No VTE Risk Level:: Medical - moderate - high VTE Device Contraindication: N/A - Device Ordered VTE Drug Contraindication: N/A - Med Ordered
[2024-09-05 19:28] VITALS: BP 95/60; PULSE 71; RESP 17; TEMP 36.4; O2SAT 92
[2024-09-06] VITALS: BP 100/60; PULSE 76; RESP 18; TEMP 36.5; O2SAT 92
[2024-09-06 04:00] VITALS: BP 92/52; PULSE 55; RESP 17; TEMP 36.8; O2SAT 95
[2024-09-06] MEDS: Levothyroxine Sodium 112 MCG, Levothyroxine Sodium 25 MCG 137 MCG PO (05:42)
[2024-09-06 07:13] LABS: Albumin Level 3.3 g/dL (3.5-5.0); Anion Gap 11 (12-20); Blood Urea Nitrogen 21 mg/dL (9-16); Calcium 9.1 mg/dL (8.4-10.2); Carbon Dioxide 34 mmol/L (22-29); Chloride 102 mmol/L (96-108); Creatinine Clr Calc Pharmacy 37.4; Estimated Glomerular Filt Rate > 60; Glucose Random 98 mg/dL (60-115); Magnesium 2.4 mg/dL (1.6-2.6); Phosphorus 3.7 mg/dL (2.7-4.5); Sodium 143 mmol/L (135-145)
[2024-09-06] MEDS: Midodrine HCl 10 MG TABLET PO ×3 (07:17→16:11)
[2024-09-06] MEDS: 0.9 % Sodium Chloride Flush 3 ML SYRINGE IVFLUSH ×3 (07:17→22:39)
[2024-09-06 07:54] VITALS: BP 101/56; PULSE 60; RESP 18; TEMP 36.7; O2SAT 95
--- NOTE | 2024-09-06 08:25 | MHC.CM.PN ---
[facility] nurse informed CM that the [facility] that they work with and request referral to is [facility]: phone: [phone], fax: [phone]. The nurse said that this [facility] is able to cover for the home infusion needs. Referral submitted via [facility].
--- NOTE | 2024-09-06 09:00 | P.PNIM_ITS ---
Subjective Subjective Date of Service: 09/06/24 Interval History: 64-year-old lady with underlying Down syndrome, hypothyroidism, dementia, Jorge L's admitted on 08/24/2024 with dyspnea, hypoxia, and worsening lethargy. On ER evaluation patient hypotensive with poor response to initial IV fluids requiring pressor support, admitted to the intensive care unit. Hospital course further complicated by aspiration pneumonia requiring intubation 08/25/2024 and extubation within 24 hours. Patient continues with recurrent small volume aspiration resulting in hypoxemia and bradycardia requiring further supplemental oxygen and pressor support. Now status post placement of gastrostomy tube on 09/01/2024, returned postop intubated, extubated 09/02/2024. Transfered to medical floor on 09/04. Respiratory status appear ok, however sounds congested and seems to be tolerating tube feed. Physical Exam 2 Vital Signs: Vital Signs: Last Vital Signs Temp 98.1 F 09/06/24 07:54 Pulse 60 09/06/24 07:54 Resp 18 09/06/24 07:54 BP 101/56 L 09/06/24 07:54 Pulse Ox 95 09/06/24 07:54 O2 Del Method Room Air 09/06/24 07:54 O2 Flow Rate 4 09/06/24 04:00 FiO2 30 09/02/24 09:44 Oxygen Flow Rate 3 08/26/24 22:47 BMI result Body Mass Index 14.1 Const: Other: General: no acute distress Resp: rhonchi CVS: S1,S2,RRR GI: +BS, NT, no distention Skin: No rash Neuro: motor grossly intact Psych: appropriate affect Objective Data Active Medications Enoxaparin Sodium (Enoxaparin Sodium 40 Mg/0.4 Ml Syringe) 40 mg SUBCUT Q24H [facility] Last Admin: 09/05/24 08:43 Dose: 40 mg Documented By: ARNULFO Levofloxacin (Levofloxacin 750 Mg Tablet) 750 mg PO Q48H [facility] Levothyroxine Sodium 112 mcg/ (Levothyroxine Sodium 25 mcg) 137 mcg PO DAILY@0600 [facility] Last Admin: 09/06/24 05:42 Dose: 137 mcg Documented By: ELIZABETH Midodrine (Midodrine Hcl 10 Mg Tablet) 10 mg PO TIDWM [facility] Last Admin: 09/06/24 07:17 Dose: 10 mg Documented By: ARNULFO Pharmacy Consult (Consult Rx Parenteral Nutrition Ordering) 1 each MISCELLANE DAILY PRN PRN Reason: Consult order Sodium Chloride (0.9 % Sodium Chloride Flush 3 Ml Syringe) 3 ml IVFLUSH QSHIFT [facility] Last Admin: 09/06/24 07:17 Dose: 3 ml Documented By: ARNULFO Labs 09/04/24 01:07 09/06/24 06:25 Labs: Laboratory Results - last 24 hr 09/06/24 06:25 Hold Purple Top SEE NOTE Anion Gap 11 L Estim Creat Clear Calc 37.4 Estimated GFR > 60 Random Glucose 98 Calcium 9.1 Phosphorus 3.7 Magnesium 2.4 Albumin 3.3 L Assessment and Plan (1) Shock: Status: Acute (2) Jorge L's disease: Status: Acute (3) Acute hypoxemic respiratory failure due to COVID-19: Status: Acute (4) Pneumonia: Status: Acute Plan 64-year-old lady with underlying Down syndrome admitted with dyspnea/hypoxia/hypotension secondary to pulmonary aspiration initially requiring ventilatory support, now extubated, however with persistent recurrent small volume aspirations resulting in hypoxia and bradycardia requiring supplemental oxygen and pressor support Shock required vasopressors. resolved. Acute hypoxic respiratory failure secondary due to recurrent aspirations, now status post parenteral gastrostomy, intubated postop, extubated 09/02/2024 (second time). Continue to titrate off supplemental oxygen as tolerated. Empiric coverage for pulmonary aspiration with Levaquin stop after 7 dayss Underlying history of Jorge L's hypothyroidism continue Synthroid. Chronic Hypotension midodrine Dysphagia/recurrent aspiration Status post PEG on 09/01/2024. Continue tube feed seizure d/o--Trileptal Underlying Down syndrome and dementia. stable Miscellaneous: No acute issues. Prophylaxis: Heparin Diet: Tube feeds Full code, Dispo: [place] is ultimately to return to halfway. Quality Stroke Does the patient have a stroke diagnosis?: No VTE Prior VTE?: No VTE Risk Level:: Medical - moderate - high VTE Device Contraindication: N/A - Device Ordered VTE Drug Contraindication: N/A - Med Ordered
--- NOTE | 2024-09-06 09:37 | MHC.CM.PN ---
Addendum entered by Cynthia Heaton, RN 09/06/24 09:47: CM CONTACTED CYNTHIA ORTEGA [facility] NURSE AT 9:42AM [phone], CYNTHIA AWARE [facility] IS REVIEWING PT'S REFERRAL AND THAT THEY DO NOT DELIVER GTUBE FEEDS/MEDS. CYNTHIA HAS NO PREFERENCE ON O2 COMPANIES. CYNTHIA ALSO REQUESTING PT/OT EVALS PT IS INDEP AT BASELINE. Original Note: PT W/NEW GTUBE FEEDS AND POSSIBLE NEW HOME O2, REF PLACED TO [facility] PER [facility] REQUEST, NO ANSWER RECEIVED OVER [facility], KAMAR CALLED [facility] WHO REPORTED THE [facility] INFUSIONS HOWEVER THEY DO NOT SUPPLY THE NUTRITION/GTUBE SUPPLIES, CM WILL FOLLOW UP W/[facility] NURSE CYNTHIA.
[2024-09-06] MEDS: Enoxaparin Sodium 40 MG/0.4 ML SYRINGE SUBCUT (09:43)
[2024-09-06] MEDS: OXcarbazepine 150 MG TABLET PO ×2 (10:17→22:39)
[2024-09-06] MEDS: OXcarbazepine 300 MG TABLET PO ×2 (10:17→22:39)
[2024-09-06 11:39] VITALS: BP 97/59; PULSE 62; RESP 19; TEMP 37; O2SAT 95
--- NOTE | 2024-09-06 14:03 | MHC.CM.PN ---
Addendum entered by Cynthia eHaton RN 09/06/24 14:34: DIETARY WILL CHANGE GTUBE NUTRITION TO BOLUS FEEDS. Original Note: CM PARTICIPATED IN DC MEETING W/ NURSE PENNY, PT'S SISTER THIERRY AND MULTIPLE OTHER NURSES/STAFF AT 1300PM. THE FOLLOWING ARE REQUESTS FOR DC. 1) WILL HAVE A FAVORITE STAFF OF PT TO BE HERE WHEN P.T. WORKS W/PT TOMORROW. 2) IF HOSPITALIST HAS ANY CONCERNS FOR DROP IN HR OR BP WHEN STANDING/AMBULATING. 3) IF PT CAN DO A TRIAL OF BOLUS FEEDS PRIOR TO DC 4) O2 WILL NEED TO BE DELIVERED PRIOR TO DC HOME FOR TRAINING PURPOSES. 5) MED LIST W/GTUBE FOR ROUTE AND IF MED CAN BE CRUSHED, IF MED CAN BE ORDERED IN LIQUID FORM 6) THIERRY IS AGREEABLE TO STR IF PT DOES NOT DO WELL W/P.T. TOMORROW HOWEVER DOES PREFER PT RETURN TO . CM WILL FOLLOW UP W/ NURSE PENNY TOMORROW 3/, THEY ARE REQUESTING EXTRADAYS FOR TRAINING STAFF ON O2/GTUBE FEEDS.
--- NOTE | 2024-09-06 14:38 | MHC.CLN ---
RE: CONSULT PER CM CM REPORTED GH AND FAMILY WANTED TO TRIAL BOLUS TUBE FEEDING BEFORE DISCHARGE DISCUSSED WITH NURSE REVIEWED LABS-UNREMARKABLE RECOMMEND TF OSMOLITE 1.5 BOLUS FEED 240ML (8OZ) TID (WHILE AWAKE) WITH 240ML FREE WATER FLUSHES Q 8 HRS PROVIDES 1080KCALS (30KCALS/KG), 45G PROTEIN (1.2G/KG), 1269ML TOTAL WATER FROM FORMULA AND FLUSHES (35ML/KG) MONITOR TOLERANCE AND LYTES
[2024-09-06 15:54] VITALS: BP 104/61; PULSE 61; RESP 19; TEMP 37.1; O2SAT 91
[2024-09-06] MEDS: Calcium + Vitamin D 250 MG TABLET PO ×2 (16:11→22:39)
[2024-09-06 20:00] VITALS: BP 125/56; PULSE 58; RESP 20; TEMP 36.6; O2SAT 96
[2024-09-06] MEDS: Sennosides/Docusate Sodium TABLET 1 TAB PO (22:40)
[2024-09-07] VITALS (12 sets, daily range): BP systolic 96–142; BP diastolic 51–90; PULSE 56–80; RESP 12–20; TEMP 36.2–37.2; O2SAT 94–100
[2024-09-07] MEDS: Levothyroxine Sodium 112 MCG, Levothyroxine Sodium 25 MCG 137 MCG PO (05:31)
[2024-09-07 07:11] LABS: Albumin Level 3.6 g/dL (3.5-5.0); Anion Gap 11 (12-20); Blood Urea Nitrogen 22 mg/dL (9-16); Calcium 9.6 mg/dL (8.4-10.2); Carbon Dioxide 37 mmol/L (22-29); Chloride 100 mmol/L (96-108); Creatinine Clr Calc Pharmacy 35.4; Estimated Glomerular Filt Rate > 60; Glucose Random 95 mg/dL (60-115); Magnesium 2.4 mg/dL (1.6-2.6); Phosphorus 4.3 mg/dL (2.7-4.5); Potassium 4.2 mmol/L (3.3-5.1); Sodium 144 mmol/L (135-145)
[2024-09-07] MEDS: 0.9 % Sodium Chloride Flush 3 ML SYRINGE IVFLUSH ×3 (09:01→22:28)
[2024-09-07] MEDS: Midodrine HCl 10 MG TABLET PO ×3 (09:01→16:44)
[2024-09-07] MEDS: Cholecalciferol (Vitamin D3) 25 MCG TABLET PO (09:01)
[2024-09-07] MEDS: Enoxaparin Sodium 40 MG/0.4 ML SYRINGE SUBCUT (09:01)
[2024-09-07] MEDS: OXcarbazepine 150 MG TABLET PO ×2 (09:01→22:28)
[2024-09-07] MEDS: OXcarbazepine 300 MG TABLET PO ×2 (09:01→22:28)
--- NOTE | 2024-09-07 09:22 | MHC.CM.PN ---
Addendum entered by Cynthia Heaton RN 09/07/24 09:30: CM RECEIVED MESSAGE FROM [facility] THAT THEY ARE WORKING ON REFERRAL AND WORKING W/TANK PUMPER PANELBOARD NATHEN. Original Note: EMR REVIEWED, PER PLAN PT'S WILL SEND ONE OF PT'S FAVORITE STAFF IN FROM 9AM-3PM TODAY TO ASSIST IN MOTIVATING PT TO PARTICIPATE MORE IN P.T., CM DISCUSSED W/P.T. AND ATTEMPTED TO DISCUSS W/PT'S STAFF HOWEVER NO STAFF AT BEDSIDE AT TIME OF THIS NOTE, CM REQUESTED PT'S NURSE MESSAGE CM ONCE STAFF COMES IN. PT WILL LIKELY NEED STR, CM WILL CONTACT PT'S GUARDIAN/SISTER ERIN AFTER P.T. WORKS WITH PT. CM STILL AWAITING PAPERWORK FROM AND PROTOCOLS THAT NEED WILL NEED TO BE SIGNED IF PLAN IS FOR HOME.
--- NOTE | 2024-09-07 13:30 | MHC.CM.PN ---
CM CONTACTED PT'S SISTER/GUARDIAN PAT AT NUMBER ON FILE TO DISCUSS DISPO EARLIER IN SHIFT, PAT AWARE PT WILL NEED STR AND WILL DISCUSS PREFERENCES W/FAMILY MEMBER AND LET CM KNOW. CM RECEIVED MESSAGE FROM CM CROFT ERGONOMICS TECHNICIAN THAT PAT'S PREFERRED FACILITIES WERE [facility] AND [facility], REFERRAL PLACED AND [facility] ACCEPTING AND REQUESTING LESS THAN 30 DAY FOR PASRR, HOSPITALIST AWARE, NOTICE OF INTENT TO ADMIT AND PT TO DC ON THURSDAY W/ENOUGH GTUBE NUTRITION TO GET THROUGH UNTIL TUESDAY 09/12, CM CHECKED W/PLATE FITTER WHO REPORTS WE WOULD BE ABLE TO SEND REQUESTED AMT. CM DIRECTOR COMPLETED NOTICE OF INTENT AND CM DELIVERED TO PAT AT BEDSIDE. PLAN FOR PT TO DC TO [facility] EARLY THURSDAY VIA BLS.
--- NOTE | 2024-09-07 13:54 | HO.PM.IMPN ---
Subjective Subjective Date of Service: 09/07/24 Interval History: Patient refusing to keep O2, case mgr at bedside, feels patient is not ready for discharge to retirement No bowel movement in last several days Tolerating G-tube feeds Review of Systems Unable to obtain due to mental status Physical Exam Vital Signs: Vital Signs: Last Vital Signs Temp 97.3 F 09/07/24 11:27 Pulse 73 09/07/24 11:27 Resp 20 09/07/24 11:27 BP 106/56 L 09/07/24 11:54 Pulse Ox 97 09/07/24 11:27 O2 Del Method Nasal Cannula 09/07/24 11:27 O2 Flow Rate 2 09/07/24 11:27 FiO2 30 09/02/24 09:44 Oxygen Flow Rate 3 08/26/24 22:47 BMI result Body Mass Index 14.1 Const: Other: General in no acute distress. Neck no JVD. CVS regular rate rhythm, Respiratory lungs bilateral rhonchi, no respiratory distress. Gastrointestinal abdomen soft, G-tube in place, no guarding , no rigidity. Extremities no edema. Neuro moving all 4 extremity. Objective Data Active Medications Calcium Carbonate/Cholecalciferol (Calcium + Vitamin D 250 Mg Tablet) 250 mg PO BID@1600,2000 [facility] Last Admin: 09/06/24 22:39 Dose: 250 mg Documented By: CORNELIUS Clotrimazole (Clotrimazole 1 % Cream 15 Gm Tube) 1 appl TOPICAL MOTH [facility] Enoxaparin Sodium (Enoxaparin Sodium 40 Mg/0.4 Ml Syringe) 40 mg SUBCUT Q24H [facility] Last Admin: 09/07/24 09:01 Dose: 40 mg Documented By: AMARILIS Guaifenesin/Dextromethorphan (Guaifenesin Dm 100/10/5 Ml 5 Ml Syrup) 10 ml PO Q4H PRN PRN Reason: cough Levothyroxine Sodium 112 mcg/ (Levothyroxine Sodium 25 mcg) 137 mcg PO DAILY@0600 [facility] Last Admin: 09/07/24 05:31 Dose: 137 mcg Documented By: CORNELIUS Lorazepam (Lorazepam 0.5 Mg Tablet) 0.5 mg PO DAILY PRN PRN Reason: Anxiety Magnesium Citrate (Magnesium Citrate 300 Ml Solution) 300 ml PO ONCE ONE Stop: 09/07/24 13:54 Midodrine (Midodrine Hcl 10 Mg Tablet) 10 mg PO TIDWM [facility] Last Admin: 09/07/24 11:54 Dose: 10 mg Documented By: AMARILIS Non-Formulary Medication (Sodium Fluoride-Pot Nitrate) 1 appl PO BID [facility] Oxcarbazepine (Oxcarbazepine 150 Mg Tablet) 150 mg PO BID [facility] Last Admin: 09/07/24 09:01 Dose: 150 mg Documented By: AMARILIS Oxcarbazepine (Oxcarbazepine 300 Mg Tablet) 300 mg PO BID [facility] Last Admin: 09/07/24 09:01 Dose: 300 mg Documented By: AMARILIS Pharmacy Consult (Consult Rx Parenteral Nutrition Ordering) 1 each MISCELLANE DAILY PRN PRN Reason: Consult order Senna/Docusate Sodium (Sennosides/Docusate Sodium Tablet) 1 tab PO BEDTIME [facility] Last Admin: 09/06/24 22:40 Dose: 1 tab Documented By: MARTHA-SINDHU Sodium Chloride (0.9 % Sodium Chloride Flush 3 Ml Syringe) 3 ml IVFLUSH QSHIFT [facility] Last Admin: 09/07/24 09:01 Dose: 3 ml Documented By: AMARILIS Trazodone HCl (Trazodone Hcl 50 Mg Tablet) 50 mg PO BEDTIME PRN PRN Reason: Sleep Vitamin D (Cholecalciferol (Vitamin D3) 25 Mcg Tablet) 25 mcg PO DAILY [facility] Last Admin: 09/07/24 09:01 Dose: 25 mcg Documented By: AMARILIS Labs 09/04/24 01:07 09/07/24 06:23 Labs: Laboratory Results - last 24 hr 09/07/24 06:23 Hold Purple Top SEE NOTE Anion Gap 11 L Estim Creat Clear Calc 35.4 Estimated GFR > 60 Random Glucose 95 Calcium 9.6 Phosphorus 4.3 Magnesium 2.4 Albumin 3.6 Assessment and Plan (1) PEG (percutaneous endoscopic gastrostomy) status: Status: Acute (2) Constipation: Status: Acute (3) Acute hypoxic respiratory failure: Status: Acute Plan 64-year-old lady with underlying Down syndrome, hypothyroidism, dementia, Jorge L's admitted on 08/24/2024 with dyspnea, hypoxia, and worsening lethargy. On ER evaluation patient hypotensive with poor response to initial IV fluids requiring pressor support, admitted to the intensive care unit. Hospital course further complicated by aspiration pneumonia requiring intubation 08/25/2024 and extubation within 24 hours. Patient continues with recurrent small volume aspiration resulting in hypoxemia and bradycardia requiring further supplemental oxygen and pressor support. Now status post placement of gastrostomy tube on 09/01/2024, returned postop intubated, extubated 09/02/2024. Transfered to medical floor on 09/04. Respiratory status appear ok, tolerating tube feed. Hypotensive Shock required vasopressors. resolved. Acute hypoxic respiratory failure secondary due to recurrent aspirations, now status post parenteral gastrostomy, intubated postop, extubated 09/02/2024 (second time). Continue to titrate off supplemental oxygen as tolerated. DC Levaquin Underlying history of Jorge L's hypothyroidism continue levothyroxine Constipation continue Senokot S will give Mag citrate x1,follow clinical Chronic Hypotension Stable, continue midodrine Dysphagia/recurrent aspiration Status post PEG on 09/01/2024. Continue tube feed seizure d/o--Trileptal Underlying Down syndrome and unspecified dementia. stable Prophylaxis: Lovenox Full code, Dispo: Short-term rehab/CM arranging for safe disposition to [place] [facility] via [facility] for less than 30 days stay Quality Stroke Does the patient have a stroke diagnosis?: No VTE Prior VTE?: No VTE Risk Level:: Medical - moderate - high VTE Device Contraindication: N/A - Device Ordered VTE Drug Contraindication: N/A - Med Ordered
[2024-09-07] MEDS: Magnesium Citrate 300 ML SOLUTION PO (14:19)
--- NOTE | 2024-09-07 15:13 | MHC.CLN ---
F/U TF BOLUS TRIAL CONTINUE NOTED CONSTIPATION REVIEWED LABS-UNREMARKABLE RECEIVING TF OSMOLITE 1.5 BOLUS FEED 240ML (8OZ) TID (WHILE AWAKE) WITH 240ML FREE WATER FLUSHES Q 8 HRS PROVIDES 1080KCALS (30KCALS/KG), 45G PROTEIN (1.2G/KG), 1269ML TOTAL WATER FROM FORMULA AND FLUSHES (35ML/KG) TOLERATING BOLUS TF PER NURSING CONTINUE TO MONITOR TOLERANCE AND LYTES
[2024-09-07] MEDS: Calcium + Vitamin D 250 MG TABLET PO ×2 (16:44→22:28)
[2024-09-07] MEDS: guaiFENesin DM 100/10/5 ML 5 ML SYRUP 10 ML PO (22:28)
[2024-09-07] MEDS: traZODone HCL 50 MG TABLET PO (23:17)
[2024-09-07] MEDS: LORazepam 0.5 MG TABLET PO (23:18)
[2024-09-08] VITALS (10 sets, daily range): BP systolic 88–117; BP diastolic 53–80; PULSE 60–74; RESP 16–20; TEMP 36.3–37.1; O2SAT 96–100
[2024-09-08] MEDS: Levothyroxine Sodium 112 MCG, Levothyroxine Sodium 25 MCG 137 MCG PO (05:49)
[2024-09-08 07:06] LABS: Albumin Level 3.4 g/dL (3.5-5.0); Anion Gap 11 (12-20); Blood Urea Nitrogen 19 mg/dL (9-16); Calcium 9.2 mg/dL (8.4-10.2); Carbon Dioxide 35 mmol/L (22-29); Chloride 100 mmol/L (96-108); Creatinine Clr Calc Pharmacy 33.6; Estimated Glomerular Filt Rate > 60; Glucose Random 83 mg/dL (60-115); Magnesium 2.7 mg/dL (1.6-2.6); Phosphorus 4.5 mg/dL (2.7-4.5); Potassium 4.4 mmol/L (3.3-5.1); Sodium 142 mmol/L (135-145)
[2024-09-08] MEDS: OXcarbazepine 300 MG TABLET PO ×2 (08:51→21:54)
[2024-09-08] MEDS: Midodrine HCl 10 MG TABLET PO ×3 (08:51→16:30)
[2024-09-08] MEDS: guaiFENesin DM 100/10/5 ML 5 ML SYRUP 10 ML PO (08:51)
[2024-09-08] MEDS: OXcarbazepine 150 MG TABLET PO ×2 (08:51→21:54)
[2024-09-08] MEDS: Cholecalciferol (Vitamin D3) 25 MCG TABLET PO (08:51)
[2024-09-08] MEDS: Enoxaparin Sodium 40 MG/0.4 ML SYRINGE SUBCUT (08:51)
[2024-09-08] MEDS: 0.9 % Sodium Chloride Flush 3 ML SYRINGE IVFLUSH ×2 (08:51→16:30)
[2024-09-08] MEDS: Clotrimazole 1 % Cream 15 GM TUBE 1 APPL TOPICAL (11:04)
--- NOTE | 2024-09-08 13:37 | HO.PM.IMPN ---
Subjective Subjective Date of Service: 09/08/24 Interval History: Resting comfortably, no acute events overnight keeping nasal cannula , residual 45, vitals stable. Review of Systems Unable to obtain due to mental status Physical Exam Vital Signs: Vital Signs: Last Vital Signs Temp 98.2 F 09/08/24 11:49 Pulse 69 09/08/24 11:49 Resp 20 09/08/24 11:49 BP 96/59 L 09/08/24 12:22 Pulse Ox 98 09/08/24 11:49 O2 Del Method Nasal Cannula 09/08/24 11:49 O2 Flow Rate 2 09/08/24 11:49 FiO2 30 09/02/24 09:44 Oxygen Flow Rate 3 08/26/24 22:47 BMI result Body Mass Index 14.1 Const: Other: General in no acute distress. Neck no JVD. CVS regular rate rhythm, Respiratory no respiratory distress. Gastrointestinal abdomen soft, G-tube in place, no guarding , no rigidity. Extremities no edema. Neuro moving all 4 extremity. Objective Data Active Medications Calcium Carbonate/Cholecalciferol (Calcium + Vitamin D 250 Mg Tablet) 250 mg PO BID@1600,2000 [facility] Last Admin: 09/07/24 22:28 Dose: 250 mg Documented By: CORNELIUS Clotrimazole (Clotrimazole 1 % Cream 15 Gm Tube) 1 appl TOPICAL MOTH [facility] Last Admin: 09/08/24 11:04 Dose: 1 appl Documented By: AMARILIS Enoxaparin Sodium (Enoxaparin Sodium 40 Mg/0.4 Ml Syringe) 40 mg SUBCUT Q24H [facility] Last Admin: 09/08/24 08:51 Dose: 40 mg Documented By: AMARILIS Guaifenesin/Dextromethorphan (Guaifenesin Dm 100/10/5 Ml 5 Ml Syrup) 10 ml PO Q4H PRN PRN Reason: cough Last Admin: 09/08/24 08:51 Dose: 10 ml Documented By: AMARILIS Levothyroxine Sodium 112 mcg/ (Levothyroxine Sodium 25 mcg) 137 mcg PO DAILY@0600 [facility] Last Admin: 09/08/24 05:49 Dose: 137 mcg Documented By: CORNELIUS Lorazepam (Lorazepam 0.5 Mg Tablet) 0.5 mg PO DAILY PRN PRN Reason: Anxiety Last Admin: 09/07/24 23:18 Dose: 0.5 mg Documented By: CORNELIUS Midodrine (Midodrine Hcl 10 Mg Tablet) 10 mg PO TIDWM [facility] Last Admin: 09/08/24 12:22 Dose: 10 mg Documented By: AMARILIS Oxcarbazepine (Oxcarbazepine 150 Mg Tablet) 150 mg PO BID [facility] Last Admin: 09/08/24 08:51 Dose: 150 mg Documented By: AMARILIS Oxcarbazepine (Oxcarbazepine 300 Mg Tablet) 300 mg PO BID [facility] Last Admin: 09/08/24 08:51 Dose: 300 mg Documented By: AMARILIS Senna/Docusate Sodium (Sennosides/Docusate Sodium Tablet) 1 tab PO BEDTIME [facility] Last Admin: 09/07/24 23:26 Dose: Not Given Documented By: CORNELIUS Non-Admin Reason: diarrhea Sodium Chloride (0.9 % Sodium Chloride Flush 3 Ml Syringe) 3 ml IVFLUSH QSHIFT [facility] Last Admin: 09/08/24 08:51 Dose: 3 ml Documented By: AMARILIS Trazodone HCl (Trazodone Hcl 50 Mg Tablet) 50 mg PO BEDTIME PRN PRN Reason: Sleep Last Admin: 09/07/24 23:17 Dose: 50 mg Documented By: CORNELIUS Vitamin D (Cholecalciferol (Vitamin D3) 25 Mcg Tablet) 25 mcg PO DAILY [facility] Last Admin: 09/08/24 08:51 Dose: 25 mcg Documented By: AMARILIS Labs 09/04/24 01:07 09/08/24 06:06 Labs: Laboratory Results - last 24 hr 09/08/24 06:06 Anion Gap 11 L Estim Creat Clear Calc 33.6 Estimated GFR > 60 Random Glucose 83 Calcium 9.2 Phosphorus 4.5 Magnesium 2.7 H Albumin 3.4 L Assessment and Plan (1) PEG (percutaneous endoscopic gastrostomy) status: Status: Acute (2) Pulmonary aspiration: Status: Acute (3) Hypoxia: Status: Acute (4) Multifocal pneumonia: Status: Acute Plan 64-year-old lady with underlying Down syndrome, hypothyroidism, dementia, Jorge L's admitted on 08/24/2024 with dyspnea, hypoxia, and worsening lethargy. On ER evaluation patient hypotensive with poor response to initial IV fluids requiring pressor support, admitted to the intensive care unit. Hospital course further complicated by aspiration pneumonia requiring intubation 08/25/2024 and extubation within 24 hours. Patient continues with recurrent small volume aspiration resulting in hypoxemia and bradycardia requiring further supplemental oxygen and pressor support. Now status post placement of gastrostomy tube on 09/01/2024, returned postop intubated, extubated 09/02/2024. Transfered to medical floor on 09/04. Respiratory status appear ok, tolerating tube feed. Hypotensive Shock required vasopressors. resolved. Acute hypoxic respiratory failure secondary to recurrent aspirations, now status post parenteral gastrostomy, intubated postop, extubated 09/02/2024 (second time). Continue to titrate off supplemental oxygen as tolerated. Finished course of antibiotic Underlying history of Jorge L's hypothyroidism continue levothyroxine all meds given through feeding tube Constipation resolved continue Senokot S Chronic Hypotension Stable, continue midodrine Dysphagia/recurrent aspiration Status post PEG on 09/01/2024.Continue tube feed seizure d/o--on Trileptal Underlying Down syndrome and unspecified dementia. stable Prophylaxis: Lovenox Full code, Dispo: Short-term rehab/CM arranging for safe disposition to [place] [facility] via [facility] for less than 30 days stay Quality Stroke Does the patient have a stroke diagnosis?: No VTE Prior VTE?: No VTE Risk Level:: Medical - moderate - high VTE Device Contraindication: N/A - Device Ordered VTE Drug Contraindication: N/A - Med Ordered
--- NOTE | 2024-09-08 15:33 | MHC.CM.PN ---
DP is to [facility]. A < 30 days clause was provided to the [facility], on a progress note 09/07/24. It was sent to the facility today. The completed Intent to admit form has been requested. It will be obtained from [facility] and sent to the SNF. The Tube feeds requested by the SNF have been obtained from [facility] [place] [place] dietitian.
[2024-09-08] MEDS: Calcium + Vitamin D 250 MG TABLET PO ×2 (16:30→21:54)
[2024-09-09] VITALS: BP 114/63; PULSE 71; RESP 20; TEMP 37.1; O2SAT 92
[2024-09-09 04:00] VITALS: BP 114/56; PULSE 66; RESP 20; TEMP 36.9; O2SAT 94
[2024-09-09] MEDS: Levothyroxine Sodium 112 MCG, Levothyroxine Sodium 25 MCG 137 MCG PO (06:22)
[2024-09-09 08:00] VITALS: PULSE 67; RESP 20; TEMP 36.8; O2SAT 93
--- NOTE | 2024-09-09 10:47 | P.DS_ITS ---
DS: Providers Provider Date of Service: 09/09/24 Date of admission: 08/24/24 20:24 Date of discharge: 09/09/24 Primary care physician: Alfredo Walls MD Consults: 08/31/24 13:29 Consult to General Surgery Routine Consulting Provider: [facility] General Surgeons Reason for consultation: Evaluate for PEG placement Has provider been notified: No DS: Diagnosis Discharge Diagnosis (1) PEG (percutaneous endoscopic gastrostomy) status: Status: Acute (2) Pulmonary aspiration: Status: Acute (3) Hypoxia: Status: Acute (4) Multifocal pneumonia: Status: Acute DS: Summary Hospital Course Hospital Course: History of presenting illness. Miss Whitney Lucero is a 64 year old lady with PMH of HLD, hypothyroid, CVA, Down syndrome, dementia, Jorge L's who presented to the ED via EMS from her long-term with cough, SOB, hypoxia and lethargy for the last 2-3 days. She is alert and oriented, ambulatory at baseline. The Pt had outpatient viral testing and CXR done today. On arrival to the ER, her BP was 105/58, heart rate 64, respiratory rate 20, O2 sat 93% on 5 L NC. Temp 98.1? F. Laboratory data significant for WBC 17.4, BUN 29 (baseline), troponin 21.0, BNP 705.? Initial lactic acid 3.2.? VBG 7.38 51 100 31. UA negative for UTI.? Influenza, RSV, COVID 19? negative. Imaging:? CTA negative for PE but showing bilateral pneumonia with pulmonary edema. ED course:? The pt was given 1 L? LR, albumin, furosemide 40 mg, lorazepam, azithromycin 500 mg, ceftriaxone 1 g, DuoNeb, Solu-Medrol 60 mg. Sepsis suspected; bolus exclusion due to concern for volume overload.? She became hypotensive and was started on Levophed.? She became hypothermic; a Dez Hugger was placed and subsequently admitted to intensive care unit. With diagnosis of acute hypoxic respiratory failure due to bilateral pneumonia complicated by acute encephalopathy. Hospital course: 64-year-old lady with underlying Down syndrome, hypothyroidism, dementia, Jorge L's admitted on 08/24/2024 with dyspnea, hypoxia, and worsening lethargy. On ER evaluation patient hypotensive with poor response to initial IV fluids requiring pressor support, admitted to the intensive care unit. Hospital course further complicated by aspiration pneumonia requiring intubation 08/25/2024 and extubation within 24 hours. Patient continues with recurrent small volume aspiration resulting in hypoxemia and bradycardia requiring further supplemental oxygen and pressor support subsequently gastrostomy tube placed on 09/01/2024 due to recurrent aspiration, postop intubated, extubated 09/02/2024. Transfered to medical floor on 09/04 since respiratory status improved and patient tolerating tube feed. Hypotensive Shock required vasopressors and treatment and ICU resolved. Acute hypoxic respiratory failure secondary to recurrent aspirations, pneumonia, status post parenteral gastrostomy, intubated postop, extubated 09/02/2024 (second time), currently tolerating G-tube feedings with no residual, has finished course of antibiotic requiring 1-2 L of oxygen keep finger oximetry> 90. History of Jorge L's hypothyroidism continue levothyroxine all meds given through feeding tube Constipation resolved continue Senokot S . Chronic Hypotension Stable, continue midodrine. seizure d/o continue Trileptal . Underlying Down syndrome and unspecified dementia. stable Time Attestation Discharge Coordination Time (in mins): 40 Quality: Safe Use of Opioids Does Pt have an Active Cancer Diagnosis on the Problem List?: No Quality: Stroke Does the patient have a stroke diagnosis?: No Physical Exam Vital Signs: Vital Signs: Last Vital Signs Temp 98.3 F 09/09/24 08:00 Pulse 67 09/09/24 08:00 Resp 20 09/09/24 08:00 BP 114/56 L 09/09/24 04:00 Pulse Ox 93 09/09/24 08:00 O2 Del Method Nasal Cannula, Hu midified O2 09/09/24 08:00 O2 Flow Rate 5 09/09/24 08:00 FiO2 30 09/02/24 09:44 Oxygen Flow Rate 3 08/26/24 22:47 BMI result Body Mass Index 14.1 Const: Other: General resting comfortably in no acute distress. Neck no JVD. CVS regular rate rhythm, Respiratory no respiratory distress. Gastrointestinal abdomen soft, G-tube in place, no guarding , no rigidity. Extremities no edema. Neuro moving all 4 extremity. Discharge Plan Discharge Anticipated Discharge Date/Time: 09/09/24 10:43 Patient Disposition: [facility] Discharge Diagnosis: Hypotensive shock Acute hypoxic respiratory failure due to recurrent aspirations Status post PEG tube placement Referrals: [facility] [Outside] - 1 Week Po,Alfredo Khalil MD [Primary Care Provider] - 1 Week Discharge Medications: Continued fluticasone propionate 50 mcg/actuation spray,suspension 1 spray intranasal DAILY Qty: 16 0RF sennosides-docusate sodium [Senna Plus] 8.6-50 mg tablet 1 tab PO BEDTIME Qty: 28 0RF calcium carbonate-vitamin D3 600 mg-10 mcg (400 unit) tablet 1 tab PO BID@1600,2000 ketoconazole 2 % cream 1 appl topical MOTH Cetaphil Cream 1 appl TOPICAL MOTH Rx Instructions: after showers on Thursday and hydrocortisone [Proctosol HC] 2.5 % cream with perineal applicator 1 appl KS BID PRN (Reason: hemorrhoids) Qty: 30 2RF Changed levothyroxine [Synthroid] 137 mcg tablet 137 mcg feeding tube DAILY@0600 Qty: 30 0RF oxcarbazepine [Trileptal] 150 mg tablet 150 mg feeding tube BID Qty: 60 0RF trazodone 50 mg Tablet 50 mg feeding tube BEDTIME PRN (Reason: Sleep) Qty: 30 0RF oxcarbazepine 300 mg tablet 300 mg feeding tube BID Qty: 60 0RF dextromethorphan-guaifenesin 10-100 mg/5 mL syrup 10 ml feeding tube Q4H PRN (Reason: cough) Qty: 500 0RF gabapentin 300 mg capsule 300 mg feeding tube BID Qty: 60 0RF aspirin 81 mg tablet,chewable 81 mg feeding tube DAILY Qty: 90 0RF cholecalciferol (vitamin D3) 25 mcg (1,000 unit) tablet 25 mcg feeding tube DAILY Qty: 30 0RF acetaminophen 650 mg/20.3 mL solution 650 mg feeding tube Q4H PRN (Reason: fever or pain) Qty: 609 0RF Discontinued ibuprofen 100 mg/5 mL suspension 200 mg PO Q6H PRN (Reason: pain) Qty: 120 0RF sodium fluoride-pot nitrate 1.1-5 % paste 1 appl PO BID Discharge Orders: Discharge Order (Routine); Ordered 09/09/24 Ordered By: Don Tyler Diet: G-tube feedings Activity on Discharge: As tolerated Stand Alone Forms: Patient Portal Discharge page Print Language: Kazakh Care Plan Goals: Continue G-tube feedings Osmolite 1.5 240 mL every 8 hours x3, water flush 240 mL every 8 hours Acute hypoxic respiratory failure continue O2 support to keep finger oximetry greater than 90% All meds needs to be given through G-tube including senna and calcium carbonate. Health Concerns: Down syndrome Jorge L thyroiditis Plan of Treatment: Outpatient follow-up with primary care physician Assessment: As above Discharge Date/Time: 09/09/24 12:50
[2024-09-09] MEDS: Enoxaparin Sodium 40 MG/0.4 ML SYRINGE SUBCUT (10:59)
[2024-09-09] MEDS: OXcarbazepine 300 MG TABLET PO (11:00)
[2024-09-09] MEDS: OXcarbazepine 150 MG TABLET PO (11:00)
[2024-09-09] MEDS: Cholecalciferol (Vitamin D3) 25 MCG TABLET PO (11:00)
[2024-09-09] MEDS: Midodrine HCl 10 MG TABLET PO (11:01)
[2024-09-09] MEDS: 0.9 % Sodium Chloride Flush 3 ML SYRINGE IVFLUSH (11:01)
--- NOTE | 2024-09-09 11:03 | MHC.CM.PN ---
Patient is discharged today to [facility]. BLS transport is scheduled 12pm pick up operator. Patients sister Kaylen has been notified of the transfer time. Feeds sent with patient @ facility request.
== END 2024-09-09 12:50 | disposition skilled nursing facility (03) | DRG 871 ==
LOC: HO.ED 14:12 → HO.EDOVER 20:47 → HO.ICU 20:49 → HO.IMC 09-04 18:11
PROVIDERS: Internal Medicine Critical Care Medicine; Internal Medicine Pulmonary Disease; Physician Assistant; Registered Nurse Community Health; Student in an Organized Health Care Education/Training Program; Surgery; Admitting Provider Nurse Practitioner Family; Emergency Provider Emergency Medicine; PCP Internal Medicine; Visit Provider Hospitalist
PROC: 0DH63UZ Insertion of Feeding Device into Stomach, Percutaneous Approach (ICD-10-PCS; CPT 43246; principal; 2024-09-01 13:00)
DX: A41.9 Sepsis, unspecified organism (principal); I50.33 Acute on chronic diastolic (congestive) heart failure; J69.0 Pneumonitis due to inhalation of food and vomit; J96.01 Acute respiratory failure with hypoxia; R65.21 Severe sepsis with septic shock; R57.8 Other shock; Z68.1 Body mass index [BMI] 19.9 or less, adult; E44.0 Moderate protein-calorie malnutrition; G93.40 Encephalopathy, unspecified; G40.909 Epilepsy, unspecified, not intractable, without status epilepticus; E06.3 Autoimmune thyroiditis; R13.10 Dysphagia, unspecified; F03.90 Unspecified dementia, unspecified severity, without behavioral disturbance, psychotic disturbance, mood disturbance, and anxiety; I95.89 Other hypotension; Q90.9 Down syndrome, unspecified; Z79.51 Long term (current) use of inhaled steroids; Z79.82 Long term (current) use of aspirin; Z79.890 Hormone replacement therapy; Z79.899 Other long term (current) drug therapy
CPT/HCPCS: 0241U; 36415; 71045; 71046; 71275; 80048; 80076; 80202; 81001; 82040; 82533; 82803; 83605; 83735; 83880; 84100; 84443; 84478; 84484; 85025; 87040; 87086; 92526; 92610; 93005; 94002; 94003; 94640; 94799; 97162; 97530; 99285; C1758; J0171; J0456; J0651; J0692; J0696; J1200; J1265; J1596; J1644; J1650; J1940; J1956; J2003; J2060; J2371; J2470; J2704; J2919; J3010; J3370; J3475; J7120; P9047; Q9967

== ENCOUNTER → 2024-08-24 12:44 | Outpatient (BNV) | payer MEDICARE, MEDICAID, SELFPAY | PROVIDERS: Emergency Provider Emergency Medicine; PCP Internal Medicine; Visit Provider Internal Medicine | DX: I44.7 Left bundle-branch block, unspecified (principal); I44.0 Atrioventricular block, first degree; I49.1 Atrial premature depolarization | CPT/HCPCS: 93010 ==

== ENCOUNTER 2024-08-24 20:24 | Outpatient (BNV) | payer MEDICARE, MEDICAID, SELFPAY | END 2024-08-25 02:03 | PROVIDERS: Admitting Provider Nurse Practitioner Family; Emergency Provider Emergency Medicine; PCP Internal Medicine; Visit Provider Internal Medicine | DX: I44.0 Atrioventricular block, first degree (principal); I49.1 Atrial premature depolarization; I44.7 Left bundle-branch block, unspecified; R00.1 Bradycardia, unspecified | CPT/HCPCS: 93010 ==

== ENCOUNTER 2024-08-24 20:24 | Outpatient (BNV) | payer MEDICARE, MEDICAID, SELFPAY | END 2024-09-01 15:30 | PROVIDERS: Admitting Provider Nurse Practitioner Family; Emergency Provider Emergency Medicine; PCP Internal Medicine; Visit Provider Radiology Diagnostic Radiology | DX: R06.00 Dyspnea, unspecified (principal) | CPT/HCPCS: 71045 ==

== ENCOUNTER → 2024-08-24 20:24 | Outpatient (BNV) | payer MEDICARE, MEDICAID, SELFPAY | PROVIDERS: Admitting Provider Nurse Practitioner Family; Emergency Provider Emergency Medicine; PCP Internal Medicine; Visit Provider Internal Medicine Pulmonary Disease | DX: J96.01 Acute respiratory failure with hypoxia (principal); R00.1 Bradycardia, unspecified; R57.9 Shock, unspecified; Q90.9 Down syndrome, unspecified; E06.3 Autoimmune thyroiditis; T17.900A Unspecified foreign body in respiratory tract, part unspecified causing asphyxiation, initial encounter | CPT/HCPCS: 99291 ==

== ENCOUNTER → 2024-08-24 20:24 | Outpatient (BNV) | payer MEDICARE, MEDICAID, SELFPAY | PROVIDERS: Admitting Provider Nurse Practitioner Family; Emergency Provider Emergency Medicine; PCP Internal Medicine; Visit Provider Internal Medicine | DX: J18.9 Pneumonia, unspecified organism (principal); T17.900A Unspecified foreign body in respiratory tract, part unspecified causing asphyxiation, initial encounter; Z93.1 Gastrostomy status | CPT/HCPCS: 99232; 99233; 99239 ==

== ENCOUNTER → 2024-08-24 20:24 | Outpatient (BNV) | payer MEDICARE, MEDICAID, SELFPAY | PROVIDERS: Admitting Provider Nurse Practitioner Family; Emergency Provider Emergency Medicine; PCP Internal Medicine; Visit Provider Surgery | DX: R13.10 Dysphagia, unspecified (principal); J69.0 Pneumonitis due to inhalation of food and vomit; Z93.1 Gastrostomy status | CPT/HCPCS: 43246; 99222; 99232 ==

== ENCOUNTER → 2024-08-24 20:24 | Outpatient (BNV) | payer MEDICARE, MEDICAID, SELFPAY | PROVIDERS: Admitting Provider Nurse Practitioner Family; Emergency Provider Emergency Medicine; PCP Internal Medicine; Visit Provider Nurse Practitioner Family | DX: J96.01 Acute respiratory failure with hypoxia (principal); J69.0 Pneumonitis due to inhalation of food and vomit; R00.1 Bradycardia, unspecified | CPT/HCPCS: 31500; 99291; 99292 ==

== ENCOUNTER 2024-09-23 11:11 | Emergency (ER) | payer MEDICARE, MEDICAID, SELFPAY ==
[2024-09-23] VITALS (7 sets, daily range): BP systolic 113–130; BP diastolic 67–82; PULSE 60–76; RESP 16–19; TEMP 36.6–37.6; O2SAT 92–97; BMI 17.5
--- NOTE | ~2024-09-23 | XR_ITS ---
EXAMINATION: XR CHEST CLINICAL INFORMATION: cough, concern for aspiration COMPARISON: September 01, 2024. TECHNIQUE: Frontal view of the chest was obtained. FINDINGS: Patchy opacity in the right lower hemithorax and likely left retrocardiac region. Pulmonary reticular pattern. No pleural effusion. No pneumothorax. Cardiomediastinal silhouette size is normal. Mild multilevel thoracic spondylosis with a dextroconvex curvature. XR/XR chest 1V IMPRESSION: Concerning multifocal pneumonia, lung bases. EXAMINATION: X-RAY KUB. CLINICAL INFORMATION: Gastric tube placement. COMPARISON: Correlated to CT dated April 27, 2023. TECHNIQUE: AP view chest upper abdomen in supine position following the instillation of contrast through the J-tube by the technologist. FINDINGS: Intraluminal contrast stomach and gastric antrum. No extraluminal contrast. Airspace disease lung bases. IMPRESSION: Contrast within the lumen of the stomach without leak. Negative. Electronically signed by: Jordan Woods MD 09/23/2024 03:24 PM EDT
--- NOTE | ~2024-09-23 | XR_ITS ---
EXAMINATION: XR CHEST CLINICAL INFORMATION: cough, concern for aspiration COMPARISON: September 01, 2024. TECHNIQUE: Frontal view of the chest was obtained. FINDINGS: Patchy opacity in the right lower hemithorax and likely left retrocardiac region. Pulmonary reticular pattern. No pleural effusion. No pneumothorax. Cardiomediastinal silhouette size is normal. Mild multilevel thoracic spondylosis with a dextroconvex curvature. XR/XR KUB IMPRESSION: Concerning multifocal pneumonia, lung bases. EXAMINATION: X-RAY KUB. CLINICAL INFORMATION: Gastric tube placement. COMPARISON: Correlated to CT dated April 27, 2023. TECHNIQUE: AP view chest upper abdomen in supine position following the instillation of contrast through the J-tube by the technologist. FINDINGS: Intraluminal contrast stomach and gastric antrum. No extraluminal contrast. Airspace disease lung bases. IMPRESSION: Contrast within the lumen of the stomach without leak. Negative. Electronically signed by: Jordan Woods MD 09/23/2024 03:24 PM EDT
[2024-09-23] MEDS: cefTRIAXone sodium 1 GM VIAL IVPUSH (14:16)
--- NOTE | 2024-09-23 14:24 | PC.NURSE ---
Medication delay d/t difficult stick. Unable to obtain IV access. 22g IV placed in right hand
--- NOTE | 2024-09-23 14:27 | P.CONGS_ITS ---
History of Present Illness Consult details Consult date: 09/23/24 <Gill Pérez PA-C - Last Filed: 09/23/24 15:28> Narrative: 64 year old female with PMH significant for HLD, hypothyroid, CVA, Down syndrome, dementia, Jorge L's admitted to [facility] [place] [facility] from 08/22/24-09/09/24 for sepsis, aspiration PNA requiring intubation and pressor support in ICU. She had recurrent aspirations and required PEG tube placement on 09/01/24. Procedure was uncomplicated. She was tolerating tube feeds without residual. She was transferred to SNF on 09/09/24. She was sent to ED from the SNF after pulling out her PEG tube. <DANIEL Gray Last Filed: 09/23/24 15:28> Review of Systems 2 Review of Systems: Yes Unobtainable due to mental condition <DANIEL Gray Last Filed: 09/23/24 15:28> [facility] Past Medical History Medical History: Medical History Medicare annual wellness visit, subsequent Preoperative cardiovascular examination New onset left bundle branch block (LBBB) Lethargy COVID-19 virus infection Mental status alteration Colon cancer screening Atlantoaxial instability Cholelithiasis Mental and behavioral problem Hypercholesterolemia Vitamin D deficiency Closed right ankle fracture Patent foramen ovale Hypothyroid Megaloblastic anemia CVA (cerebral vascular accident) Cataracts, bilateral Down syndrome Jorge L's disease <DANIEL Gray Last Filed: 09/23/24 15:28> Family History Family History: Family History Father No problems noted. Mother Hx of cancer of lung <DANIEL Gray Last Filed: 09/23/24 15:28> Surgical History Surgical History: Surgical History Clubfoot Hx of tubal ligation Hx of cataract surgery History of colonoscopy <DANIEL Gray Last Filed: 09/23/24 15:28> Social History Social History: Social History Household Members: Other Household Members Other:: CHD Housing: Other Housing Other:: alf Do you presently have visiting nurse or other home services: Yes Unable to assess alcohol history related to: Unable to respond and Unknown Alcohol intake: never Comment: nursing home staff at bedside Patient Tobacco Use Status: Never used Tobacco Smoked in Last 30 Days: No e-Cigarette/Vaping Use: Never Used Second Hand Smoke Exposure: No Use of substances other than those prescribed or required for medical reasons: No Advance Directives: Yes Advance Directives on File: Yes Advance Directives Date on File: 04/27/23 Do you have a plan to hurt others: No Plan Patient : No service: No Current occupational status: disabled Cognitive needs: Yes Hearing needs: No Vision needs: No <Gill Pérez PA-C - Last Filed: 09/23/24 15:28> Meds Allergies/Adverse reactions: Allergies Allergy/AdvReac Type Severity Reaction Status Date / Time Sulfa (Sulfonamide Allergy Mild HIVES Verified 09/23/24 11:25 Antibiotics) sulfamethoxazole Allergy Mild HIVES Verified 09/23/24 11:25 [From Bactrim] amoxicillin [Amoxicillin] Allergy Unknown HIVES Verified 09/23/24 11:25 Clindamycin HCl Allergy Unknown rash Verified 09/23/24 11:25 trimethoprim [From Bactrim] Allergy Unknown HIVES Verified 09/23/24 11:25 <Gill Pérez PA-C - Last Filed: 09/23/24 15:28> Home medications: Home Medications ?Medication ?Instructions ?Recorded ?Confirmed ?Last Taken ?Type cetyl and stearate 1 appl topical MOTH 12/11/23 08/24/24 Unknown History alcohol-propylen glycol-sls topical cream (Cetaphil topical cream) ketoconazole 2 % topical cream 1 appl topical MOTH 12/11/23 08/24/24 Unknown History <Gill Pérez PA-C - Last Filed: 09/23/24 15:28> Physical Exam 2 Vital Signs: Vital Signs: Last Vital Signs Pulse 63 09/23/24 11:22 Resp 16 09/23/24 11:22 BP 113/71 09/23/24 11:22 Pulse Ox 97 09/23/24 11:22 O2 Del Method Nasal Cannula 09/23/24 11:22 Oxygen Flow Rate 4 09/23/24 11:22 BMI result Body Mass Index 17.5 <Gill Pérez PA-C - Last Filed: 09/23/24 15:28> Const: General: comfortable, no acute distress and alert <Gill Pérez PA-C - Last Filed: 09/23/24 15:28> Resp: Effort & Inspection: normal respiratory effort <Gill Pérez PA-C - Last Filed: 09/23/24 15:28> GI: Other: gastrostomy tube site in epigastric/left upper quadrant, tract appears normal <Gill Pérez PA-C - Last Filed: 09/23/24 15:28> Inspection: No distended <Gill Pérez PA-C - Last Filed: 09/23/24 15:28> Palpation (GI): Soft to palpation and nontender <Gill Pérez PA-C - Last Filed: 09/23/24 15:28> Skin: General skin exam: no rashes or lesions noted <DANIEL Gray Last Filed: 09/23/24 15:28> Neuro: General: moves all extremities <Gill Pérez PA-C - Last Filed: 09/23/24 15:28> Results Labs Result diagrams: 09/23/24 14:37 09/23/24 14:37 <Gill Pérez PA-C - Last Filed: 09/23/24 15:28> Labs: All other labs normal. <Gill Pérez PA-C - Last Filed: 09/23/24 15:28> Assessment and Plan (1) PEG (percutaneous endoscopic gastrostomy) status: Status: Acute <Gill Pérez PA-C - Last Filed: 09/23/24 15:28> (2) Dislodged gastrostomy tube: Status: Acute <Gill Pérez PA-C - Last Filed: 09/23/24 15:28> PEG TUBE replaced with a grayson 16 Fr tube Tested with bulb syringe and normal saline Gastric contents aspirated after irrigation Abdomen is soft Rest of care as per ER Seen and examined independently <Magnus Cornelius MD - Last Filed: 09/23/24 16:11> 64 year old female with PMH significant for HLD, hypothyroid, CVA, Down syndrome, dementia, Jorge L's with PEG tube placed on 09/01/24 for recurrent aspiration sent from SNF for dislodged PEG tube. Her abdomen is benign with well formed normal appearing tract in LUQ/epigastric region. A lubricated 14F red rubber was inserted into the G tube tract easily and then the tract was dilated with a lubricated 16F red rubber. A 16F GRAYSON G tube was then inserted into the tract. The balloon was inflated and the tube was aspirated which demonstrated bilious drainage and saline was flushed easily. Patient tolerated this well. < Gill Pérez PA-C - Last Filed: 09/23/24 15:28> Procedures Date of Service Date of Service: 09/23/24 <Gill Pérez PA-C - Last Filed: 09/23/24 15:28> 09/23/24 <Magnus Corenlius MD - Last Filed: 09/23/24 16:11>
--- NOTE | 2024-09-23 14:39 | ED_ITS ---
HPI - General Adult General Chief complaint: General Medical Stated complaint: DISLODGE G TUBE PER EMS Time Seen by Provider: 09/23/24 13:12 Source: EMS and old records reviewed Mode of arrival: EMS Limitations: altered mental status History of Present Illness ED Provider: SHANA BISHOP narrative: 64 yo female with PMH of multifocal pneumonia, dysphagia, dementia, aspiration, down syndrome, who is here with c/o dislodged feeding tube and coarse cough. Tube out for 3 hours it was first placed 09/01/24. She is also removing her O2 and has been 88% on RA. The patient cannot provide any other complaints. She does respond to 2L NC. Patient was just admitted here until 09/09 in ICU on pressors and was sent home on O2 complaint: disloged feeding tube Onset (ago): hour(s) (few) Location: abdomen Radiation: non-radiation Severity: mild Relieving factors: none Exacerbating factors: none Associated symptoms: denies other symptoms Treatments prior to arrival: none Related Data Home Medications ?Medication ?Instructions ?Recorded ?Confirmed cetyl and stearate 1 appl topical MOTH 12/11/23 08/24/24 alcohol-propylen glycol-sls topical cream (Cetaphil topical cream) ketoconazole 2 % topical cream 1 appl topical MOTH 12/11/23 08/24/24 Previous Rx's ?Medication ?Instructions ?Recorded hydrocortisone 2.5 % topical cream 1 appl MA BID PRN hemorrhoids #30 09/29/23 with perineal applicator grams (Proctosol HC) fluticasone propionate 50 1 spray intranasal DAILY #16 grams 08/11/24 mcg/actuation nasal spray,suspension acetaminophen 650 mg/20.3 mL oral 650 mg (20.3 mL) feeding tube Q4H 09/08/24 solution PRN fever or pain #609 mL aspirin 81 mg chewable tablet 81 mg feeding tube DAILY #90 tabs 09/08/24 cholecalciferol (vitamin D3) 25 25 mcg feeding tube DAILY #30 tabs 09/08/24 mcg (1,000 unit) tablet dextromethorphan-guaifenesin 10 10 ml feeding tube Q4H PRN cough 09/08/24 mg-100 mg/5 mL oral syrup #500 mL gabapentin 300 mg capsule 300 mg feeding tube BID #60 caps 09/08/24 levothyroxine 137 mcg tablet 137 mcg feeding tube DAILY@0600 09/08/24 (Synthroid) #30 tabs oxcarbazepine 150 mg tablet 150 mg feeding tube BID #60 tabs 09/08/24 (Trileptal) oxcarbazepine 300 mg tablet 300 mg feeding tube BID #60 tabs 09/08/24 trazodone 50 mg tablet 50 mg feeding tube BEDTIME PRN 09/08/24 Sleep #30 tabs calcium 600 mg (as 1 tab PO BID@1600,2000 #60 tabs 09/21/24 carbonate)-vitamin D3 10 mcg (400 unit) tablet sennosides 8.6 mg-docusate sodium 1 tab PO BEDTIME #28 tabs 09/21/24 50 mg tablet (Senna Plus) cefdinir 250 mg/5 mL oral 300 mg (6 mL) PO BID 7 days #84 mL 09/23/24 suspension metronidazole 500 mg/5 mL oral 500 mg (5 mL) PO BID 6 days #60 mL 09/23/24 suspension Allergies Allergy/AdvReac Type Severity Reaction Status Date / Time Sulfa (Sulfonamide Allergy Mild HIVES Verified 09/23/24 11:25 Antibiotics) sulfamethoxazole Allergy Mild HIVES Verified 09/23/24 11:25 [From Bactrim] amoxicillin [Amoxicillin] Allergy Unknown HIVES Verified 09/23/24 11:25 Clindamycin HCl Allergy Unknown rash Verified 09/23/24 11:25 trimethoprim [From Bactrim] Allergy Unknown HIVES Verified 09/23/24 11:25 Review of Systems 2 Review of Systems: ROS unable to be obtained due to altered mental status PMFSH Past Medical History Attestation statement: The following information was validated with the patient. Source: old records reviewed Medical History Medicare annual wellness visit, subsequent Preoperative cardiovascular examination New onset left bundle branch block (LBBB) Lethargy COVID-19 virus infection Mental status alteration Colon cancer screening Atlantoaxial instability Cholelithiasis Mental and behavioral problem Hypercholesterolemia Vitamin D deficiency Closed right ankle fracture Patent foramen ovale Hypothyroid Megaloblastic anemia CVA (cerebral vascular accident) Cataracts, bilateral Down syndrome Jorge L's disease Surgical History Clubfoot Hx of tubal ligation Hx of cataract surgery History of colonoscopy Family History Family History Father No problems noted. Mother Hx of cancer of lung Social History Social History Household Members: Other Household Members Other:: CHD Housing: Other Housing Other:: senior living Do you presently have visiting nurse or other home services: Yes Unable to assess alcohol history related to: Unable to respond and Unknown Alcohol intake: never Comment: [facility] staff at bedside Patient Tobacco Use Status: Never used Tobacco Smoked in Last 30 Days: No e-Cigarette/Vaping Use: Never Used Second Hand Smoke Exposure: No Use of substances other than those prescribed or required for medical reasons: No Advance Directives: Yes Advance Directives on File: Yes Advance Directives Date on File: 04/27/23 Do you have a plan to hurt others: No Plan Patient : No service: No Current occupational status: disabled Cognitive needs: Yes Hearing needs: No Vision needs: No Physical Exam ED Vital Signs: Vital Signs - 24 hr 09/23/24 11:22 09/23/24 14:24 09/23/24 15:50 Temperature 97.9 F 99.7 F Pulse Rate 63 74 76 Respiratory Rate 16 19 18 Blood Pressure 113/71 119/67 120/73 Pulse Oximetry 97 92 95 Oxygen Delivery Method Nasal Cannula Room Air Oxymask Nasal Cannula Oxygen Flow Rate 2 2 BMI result Body Mass Index 17.5 Appearance: Alert. Nonverbal No acute distress. Eyes: Pupils equal, round and reactive to light. ENT: Pharynx normal. Has coarse cough. Neck: Normal inspection. Neck supple. CVS: Normal heart rate and rhythm. Pulses normal. Respiratory: No respiratory distress. Breath sounds diminished bases. Abdomen: Soft and non-tender. does not grimace, PEG tube site is not bleeding appears somewhat closed. Skin: Skin warm and dry. Normal skin color. Normal skin turgor. Extremities: No lower extremity edema. Neuro: No motor deficit. No sensory deficit. Medications Administered Discontinued Medications Generic Name Dose Route Start Last Admin Trade Name Freq PRN Reason Stop Dose Admin Ceftriaxone Sodium 1 gm 09/23/24 13:35 09/23/24 14:16 Ceftriaxone Sodium 1 Gm Vial IVPUSH 09/23/24 13:36 1 gm ONCE ONE Administration Medical Decision Making Medical Decision Making [facility] Narrative: 64 yo female with PMH of multifocal pneumonia, dysphagia, aspiration, down syndrome, who is here with c/o very coarse cough and pulled her feeding tube out at this time I am going to obtain labs, cultures, lactic acid, CXR for aspiration given fresh feeding tube I plan on consulting surgery for placement Differential Diagnosis Differential Diagnoses: The differential diagnosis associated with the presentation includes pulled feeding tube, aspiration Admission/Observation Consideration of admission/observation: Escalation of care including admission/observation considered no WBC count, neg lactic acid, VS stable, rectal temp only 99.7, CRP only 2 at this time review of chest xray shows no sig worsening from most recent it actually looks better compared to 09/01 I feel she can go home on G tube antibiotics sister Pat aware and okay to go back Consult Healthcare Provider Management of the patient was discussed with: Hospitalist Lab Data MDM Lab Attestation statement: I reviewed the patient's lab results. 09/23/24 14:37 09/23/24 15:50 Labs: Lab Results 09/23/24 09/23/24 Range/Units 14:37 15:50 WBC 5.2 (4.8-10.8) X10*3/uL RBC 3.83 L (4.20-5.50) X10*6/uL Hgb 12.7 (12.0-16.0) g/dl Hct 40.6 D (37.0-47.0) % MCV 106.0 H (80.0-98.0) fL MCH 33.2 H (27.0-33.0) pg MCHC 31.3 (31.0-35.0) g/dl RDW 15.6 (11.0-16.0) % Plt Count 283 D (160-400) X10*3/uL MPV 10.6 (9.4-12.3) fL Immature Gran % (Auto) 1.2 H (0.0-0.4) % Neut % (Auto) 72.1 (45-73) % Lymph % (Auto) 17.9 L (20-40) % Hamlin % (Auto) 6.6 (2-11) % Eos % (Auto) 1.6 (0-4) % Baso % (Auto) 0.6 (0-2) % Lymph # (Auto) 0.9 L (1.2-4.9) X10*3/uL [place]lin # (Auto) 0.3 (0.1-1.2) X10*3/uL Eos # (Auto) 0.1 (0.0-0.4) X10*3/uL Baso # (Auto) 0.0 (0.0-0.2) X10*3/uL Abs Immat Gran (auto) 0.06 H (0.00-0.03) X10*3/uL Absolute Neuts (auto) 3.7 (2.0-8.3) x10*3/uL Absolute Nucleated RBC 0.000 (0.0-0.012) X10*3/uL Nucleated RBC % (auto) 0.0 (0.0-0.2) /100WBC PT 11.0 (10.9-12.4) SEC INR 0.9 (0.9-1.1) Sodium 145 (135-145) mmol/L Potassium 4.3 (3.3-5.1) mmol/L Chloride 100 (96-108) mmol/L Carbon Dioxide 34 H (22-29) mmol/L Anion Gap 15 (12-20) BUN 20 H (9-16) mg/dL Creatinine 0.77 (0.5-1.4) mg/dL Estim Creat Clear Calc 47.3 Estimated GFR > 60 Random Glucose 107 (60-115) mg/dL Lactic Acid 1.3 (0.5-2.0) mmol/L Calcium 8.9 (8.4-10.2) mg/dL Magnesium 2.3 (1.6-2.6) mg/dL Total Bilirubin 0.2 (0.0-1.0) mg/dL Direct Bilirubin < 0.2 (0.0-0.5) mg/dL AST 49 H (5-31) U/L ALT 31 (0-31) U/L Alkaline Phosphatase 136 H (39-117) U/L Troponin I High Sens 6.3 D (<3.5-17.0) ng/L C-Reactive Protein 2.57 H (< or = 0.50) mg/dL B-Natriuretic Peptide 158 H (<100) pg/mL Total Protein 7.5 (6.5-8.0) g/dL Albumin 3.2 L (3.5-5.0) g/dL Lipase 14 (8-78) U/L Independent Interpretation I performed an independent interpretation of an: EKG and Plain X-Ray (g tube in place, opacities in both lungs) Interpretation: Rate: 65 Rhythm: NSR [place]: left, LVH Normal P waves. Normal DEE. NSIVCD ST T wave : flat t waves anterior leads, no NICOLETTE, artifact noted qTC: 455 prior studies: no acute ischemia The study has been interpreted contemporaneously by me. . Radiology Impression Discussion of test interpretation with radiology: I have reviewed the radiologist's reading. External Record Review External record reviewed: Inpatient record and Outpatient record Prescription Management I considered prescription management with: Antibiotic Discharge Plan Discharge Clinical Impression: Complaint associated with gastric tube, At high risk for aspiration Patient Disposition: Home, Self-Care Instructions: How to Use and Care for Your PEG Tube (ED) Additional Instructions: feeding tube placed by Dr. Cornelius no issues wear an abdominal binder to prevent it from coming off labs reassuring, no new O2 needs Chest xray improved from August given cough and risk of aspiration would continue ceftin and flagyl for 6 more days. return for any worsening symptoms such as fever, unable to eat or drink, drop in O2 while on oxygen, Prescriptions: New metronidazole 500 mg/5 mL suspension 500 mg PO BID 6 Days Qty: 60 0RF cefdinir 250 mg/5 mL suspension for reconstitution 300 mg PO BID 7 Days Qty: 84 0RF No Action fluticasone propionate 50 mcg/actuation spray,suspension 1 spray intranasal DAILY Qty: 16 0RF sennosides-docusate sodium [Senna Plus] 8.6-50 mg tablet 1 tab PO BEDTIME Qty: 28 0RF calcium carbonate-vitamin D3 600 mg-10 mcg (400 unit) tablet 1 tab PO BID@1600,2000 Qty: 60 0RF levothyroxine [Synthroid] 137 mcg tablet 137 mcg feeding tube DAILY@0600 Qty: 30 0RF oxcarbazepine [Trileptal] 150 mg tablet 150 mg feeding tube BID Qty: 60 0RF trazodone 50 mg Tablet 50 mg feeding tube BEDTIME PRN (Reason: Sleep) Qty: 30 0RF oxcarbazepine 300 mg tablet 300 mg feeding tube BID Qty: 60 0RF dextromethorphan-guaifenesin 10-100 mg/5 mL syrup 10 ml feeding tube Q4H PRN (Reason: cough) Qty: 500 0RF gabapentin 300 mg capsule 300 mg feeding tube BID Qty: 60 0RF aspirin 81 mg tablet,chewable 81 mg feeding tube DAILY Qty: 90 0RF cholecalciferol (vitamin D3) 25 mcg (1,000 unit) tablet 25 mcg feeding tube DAILY Qty: 30 0RF acetaminophen 650 mg/20.3 mL solution 650 mg feeding tube Q4H PRN (Reason: fever or pain) Qty: 609 0RF ketoconazole 2 % cream 1 appl topical MOTH Cetaphil Cream 1 appl TOPICAL MOTH Rx Instructions: after showers on Thursday and hydrocortisone [Proctosol HC] 2.5 % cream with perineal applicator 1 appl MA BID PRN (Reason: hemorrhoids) Qty: 30 2RF Print Language: French
[2024-09-23 14:44] LABS: MANUAL DIFF FLAG NO
[2024-09-23 14:55] LABS: INTERNATIONAL NORM RATIO 0.9 (0.9-1.1)
[2024-09-23 14:56] LABS: Basophils Percent Auto 0.6 % (0-2); Eosinophils Absolute Auto 0.1 X10*3/uL (0.0-0.4); Eosinophils Percent Auto 1.6 % (0-4); Hematocrit 40.6 % (37.0-47.0); Hemoglobin 12.7 g/dl (12.0-16.0); Imm Gran Abs Auto 0.06 X10*3/uL (0.00-0.03); Imm Gran Pct Auto 1.2 % (0.0-0.4); Lymphocytes Absolute Auto 0.9 X10*3/uL (1.2-4.9); Lymphocytes Percent Auto 17.9 % (20-40); Mean Corpuscular HGB Conc 31.3 g/dl (31.0-35.0); Mean Corpuscular Hemoglobin 33.2 pg (27.0-33.0); Mean Platelet Volume 10.6 fL (9.4-12.3); Monocytes Absolute Auto 0.3 X10*3/uL (0.1-1.2); Monocytes Percent Auto 6.6 % (2-11); Neutrophils Absolute Auto 3.7 x10*3/uL (2.0-8.3); Neutrophils Percent Auto 72.1 % (45-73); Platelet Count 283 X10*3/uL (160-400); Red Blood Count 3.83 X10*6/uL (4.20-5.50); Red Cell Distribution Width 15.6 % (11.0-16.0); White Blood Count 5.2 X10*3/uL (4.8-10.8)
[2024-09-23 15:00] LABS: Lactic Acid 1.3 mmol/L (0.5-2.0)
--- NOTE | 2024-09-23 15:11 | ECG_ITS ---
Test Reason : DYSPNEA Blood Pressure : */* mmHG Vent. Rate : 65 BPM Atrial Rate : 65 BPM P-R Int : 184 ms QRS Dur : 110 ms QT Int : 438 ms P-R-T Axes : 55 -47 13 degrees QTcB Int : 455 ms Normal sinus rhythm Left axis deviation Minimal voltage criteria for LVH, may be normal variant ( Tushar product ) Anteroseptal infarct , age undetermined Abnormal ECG When compared with ECG of 25-Aug-2024 02:03, Premature atrial complexes are no longer Present CA interval has decreased Left bundle branch block is no longer Present Anteroseptal infarct is now Present Referred By: Lelia Goins Electronically Signed By: Zaki Pepe
[2024-09-23 15:50] LABS: B Type Natriuretic Peptide 158 pg/mL (<100)
[2024-09-23 16:14] LABS: Anion Gap 15 (12-20)
[2024-09-23 16:17] LABS: Alanine Aminotransferase 31 U/L (0-31); Albumin Level 3.2 g/dL (3.5-5.0); Aspartate Amino Transferase 49 U/L (5-31); Bilirubin Direct < 0.2 mg/dL (0.0-0.5); Bilirubin Total 0.2 mg/dL (0.0-1.0); Blood Urea Nitrogen 20 mg/dL (9-16); Calcium 8.9 mg/dL (8.4-10.2); Carbon Dioxide 34 mmol/L (22-29); Chloride 100 mmol/L (96-108); Creatinine Clr Calc Pharmacy 47.3; Estimated Glomerular Filt Rate > 60; Glucose Random 107 mg/dL (60-115); Lipase 14 U/L (8-78); Magnesium 2.3 mg/dL (1.6-2.6); Potassium 4.3 mmol/L (3.3-5.1); Sodium 145 mmol/L (135-145); Total Protein 7.5 g/dL (6.5-8.0)
[2024-09-23 16:19] LABS: Troponin-I High Sensitivity 6.3 ng/L (<3.5-17.0)
[2024-09-23 16:29] LABS: Alkaline Phosphatase 136 U/L (39-117); C Reactive Protein 2.57 mg/dL (< or = 0.50)
[2024-09-23 16:59] LABS: Influenza A PCR NEGATIVE (Negative); Influenza B PCR NEGATIVE (Negative); Resp Syncy Virus RNA Qual PCR NEGATIVE (Negative); SARS COV2 PCR INHOUSE NEGATIVE (Negative)
[2024-09-23] MEDS: metroNIDAZOLE/NS 500 MG/100 ML PIGGYBACK 100 MG IV (17:13)
[2024-09-23] MEDS: Acetaminophen 1,000 MG/100 ML PIGGYBACK 400 MG IV (17:14)
== END 2024-09-23 18:20 | disposition home or self-care (01) ==
PROVIDERS: Emergency Provider Emergency Medicine; PCP Internal Medicine
DX: K94.20 Gastrostomy complication, unspecified (principal); R06.02 Shortness of breath; R94.31 Abnormal electrocardiogram [ECG] [EKG]; R05.9 Cough, unspecified; Z79.899 Other long term (current) drug therapy; Z03.818 Encounter for observation for suspected exposure to other biological agents ruled out
CPT/HCPCS: 0241U; 36415; 71045; 74018; 80048; 80076; 83605; 83690; 83735; 83880; 84484; 85025; 85610; 86140; 87040; 93005; 96365; 96375; 99284; 99285; J0131; J0696; J1836

== ENCOUNTER → 2024-09-23 11:46 | Outpatient (BNV) | payer MEDICARE, MEDICAID, SELFPAY | PROVIDERS: Emergency Provider Emergency Medicine; PCP Internal Medicine; Visit Provider Physician Assistant Surgical | DX: Z93.1 Gastrostomy status (principal); T85.528A Displacement of other gastrointestinal prosthetic devices, implants and grafts, initial encounter | CPT/HCPCS: 43762; 99284 ==

== ENCOUNTER → 2024-09-23 13:36 | Outpatient (BNV) | payer MEDICARE, MEDICAID, SELFPAY | PROVIDERS: Emergency Provider Emergency Medicine; PCP Internal Medicine; Visit Provider Radiology Diagnostic Radiology | DX: R05.9 Cough, unspecified (principal); Z46.59 Encounter for fitting and adjustment of other gastrointestinal appliance and device | CPT/HCPCS: 71045; 74018 ==

== ENCOUNTER → 2024-09-23 15:11 | Outpatient (BNV) | payer MEDICARE, MEDICAID, SELFPAY | PROVIDERS: Emergency Provider Emergency Medicine; PCP Internal Medicine; Visit Provider Internal Medicine Cardiovascular Disease | DX: R94.31 Abnormal electrocardiogram [ECG] [EKG] (principal); R06.00 Dyspnea, unspecified | CPT/HCPCS: 93010 ==

== ENCOUNTER 2024-09-28 07:06 | Emergency (ER) | payer MEDICARE, MEDICAID, SELFPAY ==
--- NOTE | ~2024-09-28 | XR_ITS ---
EXAMINATION: XR CHEST CLINICAL INFORMATION: cough COMPARISON: September 23, 2024. TECHNIQUE: Frontal view of the chest was obtained. FINDINGS: Patchy opacities in the perihilar regions and extending into the right middle lung lobe lingula. Prominence of the interstitial markings. No gross pleural effusion or pneumothorax. Cardiomediastinal silhouette margins are indistinct. Dextroconvex curvature of the mid thoracic spine. XR/XR chest 1V IMPRESSION: Consider pulmonary edema in the correct clinical settings. Superimposed pneumonia cannot be excluded. Electronically signed by: Jordan Woods MD 09/28/2024 10:11 AM EDT
--- NOTE | 2024-09-28 07:12 | ED_ITS ---
HPI - GI Bleed General Chief complaint: GI Bleed Stated complaint: BRIGHT RED BLOOD IN STOOL Source: patient, EMS and old records reviewed Mode of arrival: EMS Limitations: altered mental status History of Present Illness ED Provider: SHANA BISHOP Narrative: 64 yo female with PMH of multifocal pneumonia now with home O2, dysphagia, dementia, aspiration, down syndrome, s/p G tube 09/01/24 who pulled it out on 09/23 and was replaced by surgery with confirmatory xray. She is not on blood thinners. She is sent back to the ED today with c/o diarrhea since this AM with blood in it. She offers no other complaints given her CXR appearance and cough on last visit she was started on flagyl and cefdinir. Patient has no complaints on arrival she has a large amount of brown stool in her adult brief MD complaint: other (diarrhea) Onset (ago): day(s) (1) Severity: moderate Relieving factors: none Exacerbating factors: none Context: other (recent abx use) Associated symptoms: denies other symptoms Treatments Prior to Arrival: none Related Data Home Medications ?Medication ?Instructions ?Recorded ?Confirmed cetyl and stearate 1 appl topical MOTH 12/11/23 09/28/24 alcohol-propylen glycol-sls topical cream (Cetaphil topical cream) acetaminophen 650 mg/20.3 mL oral 640 mg feeding tube Q4H PRN fever 09/28/24 09/28/24 solution or pain bisacodyl 10 mg rectal suppository 10 mg NM DAILY PRN Constipation 09/28/24 09/28/24 ipratropium 0.5 mg-albuterol 3 mg 3 ml inhalation Q6H PRN Dyspnea 09/28/24 09/28/24 (2.5 mg base)/3 mL nebulization soln magnesium hydroxide 400 mg/5 mL 30 ml PO DAILY PRN Constipation 09/28/24 09/28/24 oral suspension midodrine 5 mg tablet 5 mg PO DAILY 09/28/24 09/28/24 sodium phosphates 19 gram-7 118 ml NM DAILY PRN Constipation 09/28/24 09/28/24 gram/118 mL enema (Fleet Enema) Previous Rx's ?Medication ?Instructions ?Recorded hydrocortisone 2.5 % topical cream 1 appl NM BID PRN hemorrhoids #30 09/29/23 with perineal applicator grams (Proctosol HC) aspirin 81 mg chewable tablet 81 mg feeding tube DAILY #90 tabs 09/08/24 cholecalciferol (vitamin D3) 25 25 mcg feeding tube DAILY #30 tabs 09/08/24 mcg (1,000 unit) tablet dextromethorphan-guaifenesin 10 10 ml feeding tube Q4H PRN cough 09/08/24 mg-100 mg/5 mL oral syrup #500 mL gabapentin 300 mg capsule 300 mg feeding tube BID #60 caps 09/08/24 levothyroxine 137 mcg tablet 137 mcg feeding tube DAILY@0600 09/08/24 (Synthroid) #30 tabs oxcarbazepine 150 mg tablet 150 mg feeding tube BID #60 tabs 09/08/24 (Trileptal) oxcarbazepine 300 mg tablet 300 mg feeding tube BID #60 tabs 09/08/24 trazodone 50 mg tablet 50 mg feeding tube BEDTIME PRN 09/08/24 Sleep #30 tabs calcium 600 mg (as 1 tab PO BID@1600,2000 #60 tabs 09/21/24 carbonate)-vitamin D3 10 mcg (400 unit) tablet sennosides 8.6 mg-docusate sodium 1 tab PO BEDTIME #28 tabs 09/21/24 50 mg tablet (Senna Plus) cefdinir 250 mg/5 mL oral 300 mg (6 mL) PO BID 7 days #84 mL 09/23/24 suspension metronidazole 500 mg/5 mL oral 500 mg (5 mL) PO BID 6 days #60 mL 09/23/24 suspension fluticasone propionate 50 1 spray intranasal DAILY #16 grams 09/27/24 mcg/actuation nasal spray,suspension vancomycin 50 mg/mL oral solution 125 mg (2.5 mL) PO QID 10 days 09/28/24 #100 mL Allergies Allergy/AdvReac Type Severity Reaction Status Date / Time Sulfa (Sulfonamide Allergy Mild HIVES Verified 09/28/24 07:16 Antibiotics) sulfamethoxazole Allergy Mild HIVES Verified 09/23/24 11:25 [From Bactrim] amoxicillin [Amoxicillin] Allergy Unknown HIVES Verified 09/23/24 11:25 Clindamycin HCl Allergy Unknown rash Verified 09/23/24 11:25 trimethoprim [From Bactrim] Allergy Unknown HIVES Verified 09/23/24 11:25 Review of Systems 2 Review of Systems: ROS unable to be obtained due to altered mental status [facility] Past Medical History Attestation statement: The following information was validated with the patient. Source: old records reviewed Medical History Medicare annual wellness visit, subsequent Preoperative cardiovascular examination New onset left bundle branch block (LBBB) Lethargy COVID-19 virus infection Mental status alteration Colon cancer screening Atlantoaxial instability Cholelithiasis Mental and behavioral problem Hypercholesterolemia Vitamin D deficiency Closed right ankle fracture Patent foramen ovale Hypothyroid Megaloblastic anemia CVA (cerebral vascular accident) Cataracts, bilateral Down syndrome Jorge L's disease Surgical History Clubfoot Hx of tubal ligation Hx of cataract surgery History of colonoscopy Family History Family History Father No problems noted. Mother Hx of cancer of lung Social History Social History Household Members: Other Household Members Other:: CHD Housing: Other Housing Other:: half-way Do you presently have visiting nurse or other home services: Yes Unable to assess alcohol history related to: Unable to respond and Unknown Alcohol intake: never Comment: [facility] staff at bedside Patient Tobacco Use Status: Never used Tobacco Smoked in Last 30 Days: No e-Cigarette/Vaping Use: Never Used Second Hand Smoke Exposure: No Advance Directives: Yes Advance Directives on File: Yes Advance Directives Date on File: 04/27/23 service: No Current occupational status: disabled Cognitive needs: Yes Hearing needs: No Vision needs: No Physical Exam 2 Vital Signs: Vital Signs: Last Vital Signs Temp 97.5 F 09/28/24 07:14 Pulse 56 09/28/24 07:14 Resp 16 09/28/24 07:14 BP 103/55 L 09/28/24 07:14 Pulse Ox 93 09/28/24 07:14 O2 Del Method Nasal Cannula 09/28/24 07:14 Oxygen Flow Rate 2 09/28/24 07:14 BMI result Body Mass Index 21.5 Appearance: Alert. Nonverbal sometimes but then occasionally says yes or no and nurse. No acute distress. Eyes: Pupils equal, round and reactive to light. ENT: Pharynx normal. Neck: Normal inspection. Neck supple. CVS: Normal heart rate and rhythm. Pulses normal. Respiratory: No respiratory distress. Breath sounds normal. Has coarse cough again Abdomen: Soft and nontender. G tube in place slight yellow mucous around opening but no signs of infection Rectal: brown stool copious amounts in adult brief no blood noted visually Skin: Skin warm and dry. Normal skin color. Normal skin turgor. Extremities: No lower extremity edema. Neuro: appears at baseline. No motor deficit. No sensory deficit. CN2-12 intact Medications Administered Discontinued Medications Generic Name Dose Route Start Last Admin Trade Name Freq PRN Reason Stop Dose Admin Vancomycin HCl 125 mg 09/28/24 09:46 09/28/24 10:18 Vancomycin Hcl Oral Solution 125 Mg/5 Ml Soln.Recon PO 09/28/24 09:47 125 mg ONCE ONE Administration Medical Decision Making Medical Decision Making [facility] Narrative: 64 yo female with PMH of multifocal pneumonia now with home O2, dysphagia, dementia, aspiration, down syndrome, s/p G tube 09/01/24 here with reported diarrhea with blood in it on exam large watery amounts of diarrhea - no blood noted at this time she has no grimace to palpation of the abdomen - she will need labs, stool studies, occult blood stool suspect more cdiff vs abx associated diarrhea. Differential Diagnosis Differential Diagnoses: The differential diagnosis associated with the presentation includes abx associated diarrhea, cdiff, colitis from abx Admission/Observation Consideration of admission/observation: Escalation of care including admission/observation considered CXR unchanged BNP negative occult blood negative lytes normal WBC count normal abdominal exam benign would start on vancomycin and DC back Lab Data [facility] Lab Attestation statement: I reviewed the patient's lab results. 09/28/24 08:01 09/28/24 09:13 Labs: Lab Results 09/28/24 09/28/24 Range/Units 08:01 09:13 WBC 5.7 (4.8-10.8) X10*3/uL RBC 3.65 L (4.20-5.50) X10*6/uL Hgb 12.5 (12.0-16.0) g/dl Hct 38.1 (37.0-47.0) % MCV 104.4 H (80.0-98.0) fL MCH 34.2 H (27.0-33.0) pg MCHC 32.8 (31.0-35.0) g/dl RDW 16.7 H (11.0-16.0) % Plt Count 284 (160-400) X10*3/uL MPV 10.0 (9.4-12.3) fL Immature Gran % (Auto) 0.5 H (0.0-0.4) % Neut % (Auto) 70.8 (45-73) % Lymph % (Auto) 17.3 L (20-40) % Randolph % (Auto) 6.3 (2-11) % Eos % (Auto) 4.4 H (0-4) % Baso % (Auto) 0.7 (0-2) % Lymph # (Auto) 1.0 L (1.2-4.9) X10*3/uL Randolph # (Auto) 0.4 (0.1-1.2) X10*3/uL Eos # (Auto) 0.3 (0.0-0.4) X10*3/uL Baso # (Auto) 0.0 (0.0-0.2) X10*3/uL Abs Immat Gran (auto) 0.03 (0.00-0.03) X10*3/uL Absolute Neuts (auto) 4.0 (2.0-8.3) x10*3/uL Absolute Nucleated RBC 0.000 (0.0-0.012) X10*3/uL Nucleated RBC % (auto) 0.0 (0.0-0.2) /100WBC PT 10.4 L (10.9-12.4) SEC INR 0.9 (0.9-1.1) Sodium 141 (135-145) mmol/L Potassium 5.1 (3.3-5.1) mmol/L Chloride 104 (96-108) mmol/L Carbon Dioxide 31 H (22-29) mmol/L Anion Gap 11 L (12-20) BUN 16 (9-16) mg/dL Creatinine 0.65 (0.5-1.4) mg/dL Estim Creat Clear Calc 62.7 Estimated GFR > 60 Random Glucose 84 (60-115) mg/dL Calcium 8.8 (8.4-10.2) mg/dL Magnesium 2.2 (1.6-2.6) mg/dL Total Bilirubin 0.2 (0.0-1.0) mg/dL Direct Bilirubin < 0.2 (0.0-0.5) mg/dL AST 50 H (5-31) U/L ALT 46 H (0-31) U/L Alkaline Phosphatase 115 (39-117) U/L B-Natriuretic Peptide 95 (<100) pg/mL Total Protein 7.0 (6.5-8.0) g/dL Albumin 3.1 L (3.5-5.0) g/dL Lipase 24 (8-78) U/L Stool Occult Blood NEGATIVE (NEGATIVE) Stl C. cayetanensis PCR Not Detected (Not Detect.) Stool Rotavirus A PCR Not Detected (Not Detect.) Stl Adenov F 40/41 PCR Not Detected (Not Detect.) Stool Astrovirus (PCR) Not Detected (Not Detect.) Stool Campylobacter PCR Not Detected (Not Detect.) Stool Cryptosporidium PCR Not Detected (Not Detect.) Stl Sh Tox Pr E STEC PCR Not Detected (Not Detect.) Stool E coli O157 PCR Not applicable (Not Detect.) Stl Enterotoxigenic E PCR Not Detected (Not Detect.) Stool EPEC (PCR) Not Detected (Not Detect.) Stool EAEC (PCR) Not Detected (Not Detect.) Stl E. histolytica PCR Not Detected (Not Detect.) Stool Giardia Lamblia PCR Not Detected (Not Detect.) Stl P. shigelloides PCR Not Detected (Not Detect.) Stool Salmonella PCR Not Detected (Not Detect.) Stool Sapovirus (PCR) Not Detected (Not Detect.) Stl Shigella/EIEC PCR Not Detected (Not Detect.) St Y.enterocolitica PCR Not Detected (Not Detect.) Stool Vibrio (PCR) Not Detected (Not Detect.) Stl Vibrio cholerae PCR Not Detected (Not Detect.) Stl Norovirus GI/GII PCR Not Detected (Not Detect.) C. difficile Tox B Gene POSITIVE A* (Negative) C. difficile Toxin A&B Positive A* (Negative) C. difficile Interpret SEE NOTE Blood Type A Positive Antibody Screen NEGATIVE Independent Interpretation I performed an independent interpretation of an: Plain X-Ray (unchanged) Radiology Impression Discussion of test interpretation with radiology: I have reviewed the radiologist's reading. Independent Historian Clinical information obtained from an independent historian. History obtained from or confirmed by: EMS External Record Review External record reviewed: Inpatient record and Outpatient record Prescription Management I considered prescription management with: Antibiotic Discharge Plan Discharge Clinical Impression: C. difficile diarrhea Patient Disposition: Home, Self-Care Instructions: C. Diff (Clostridioides Difficile) Infection (ED) Additional Instructions: negative for blood in stool labs and lytes reassuring chest xray the same from last visit, CHF markers negative given first dose of oral vancomycin return for fevers, unable to eat or drink, abdominal distention, worsening symptoms Prescriptions: New vancomycin 50 mg/mL recon soln 125 mg PO QID 10 Days Qty: 100 0RF No Action sennosides-docusate sodium [Senna Plus] 8.6-50 mg tablet 1 tab PO BEDTIME Qty: 28 0RF calcium carbonate-vitamin D3 600 mg-10 mcg (400 unit) tablet 1 tab PO BID@1600,2000 Qty: 60 0RF fluticasone propionate 50 mcg/actuation spray,suspension 1 spray intranasal DAILY Qty: 16 0RF levothyroxine [Synthroid] 137 mcg tablet 137 mcg feeding tube DAILY@0600 Qty: 30 0RF oxcarbazepine [Trileptal] 150 mg tablet 150 mg feeding tube BID Qty: 60 0RF trazodone 50 mg Tablet 50 mg feeding tube BEDTIME PRN (Reason: Sleep) Qty: 30 0RF oxcarbazepine 300 mg tablet 300 mg feeding tube BID Qty: 60 0RF dextromethorphan-guaifenesin 10-100 mg/5 mL syrup 10 ml feeding tube Q4H PRN (Reason: cough) Qty: 500 0RF gabapentin 300 mg capsule 300 mg feeding tube BID Qty: 60 0RF aspirin 81 mg tablet,chewable 81 mg feeding tube DAILY Qty: 90 0RF cholecalciferol (vitamin D3) 25 mcg (1,000 unit) tablet 25 mcg feeding tube DAILY Qty: 30 0RF metronidazole 500 mg/5 mL suspension 500 mg PO BID 6 Days Qty: 60 0RF Rx Instructions: END DATE 10/02/2024 cefdinir 250 mg/5 mL suspension for reconstitution 300 mg PO BID 7 Days Qty: 84 0RF Rx Instructions: END DATE 10/01/2024 Cetaphil Cream 1 appl TOPICAL MOTH Rx Instructions: after showers on Thursday and ipratropium-albuterol 0.5 mg-3 mg(2.5 mg base)/3 mL Solution For Nebulization 3 ml INHALATION Q6H PRN (Reason: Dyspnea) midodrine 5 mg Tablet 5 mg PO DAILY Rx Instructions: hold for SBP >130 magnesium hydroxide 400 mg/5 mL Suspension 30 ml PO DAILY PRN (Reason: Constipation) bisacodyl 10 mg Suppository 10 mg NM DAILY PRN (Reason: Constipation) Fleet Enema 19-7 gram/118 mL Enema 118 ml NM DAILY PRN (Reason: Constipation) acetaminophen 650 mg/20.3 mL solution 640 mg feeding tube Q4H PRN (Reason: fever or pain) hydrocortisone [Proctosol HC] 2.5 % cream with perineal applicator 1 appl NM BID PRN (Reason: hemorrhoids) Qty: 30 2RF Print Language: German
[2024-09-28 07:14] VITALS: BP 103/55; BP 118/70; PULSE 56; RESP 16; TEMP 36.4; O2SAT 93; O2SAT 94; BMI 21.5
[2024-09-28 08:11] LABS: MANUAL DIFF FLAG NO
[2024-09-28 08:14] LABS: Basophils Percent Auto 0.7 % (0-2); Eosinophils Absolute Auto 0.3 X10*3/uL (0.0-0.4); Eosinophils Percent Auto 4.4 % (0-4); Hematocrit 38.1 % (37.0-47.0); Hemoglobin 12.5 g/dl (12.0-16.0); Imm Gran Abs Auto 0.03 X10*3/uL (0.00-0.03); Imm Gran Pct Auto 0.5 % (0.0-0.4); Lymphocytes Percent Auto 17.3 % (20-40); Mean Corpuscular HGB Conc 32.8 g/dl (31.0-35.0); Mean Corpuscular Hemoglobin 34.2 pg (27.0-33.0); Mean Corpuscular Volume 104.4 fL (80.0-98.0); Monocytes Absolute Auto 0.4 X10*3/uL (0.1-1.2); Monocytes Percent Auto 6.3 % (2-11); Neutrophils Percent Auto 70.8 % (45-73); Platelet Count 284 X10*3/uL (160-400); Red Blood Count 3.65 X10*6/uL (4.20-5.50); Red Cell Distribution Width 16.7 % (11.0-16.0); White Blood Count 5.7 X10*3/uL (4.8-10.8)
[2024-09-28 08:18] LABS: OBS1 NEGATIVE (NEGATIVE)
[2024-09-28 08:19] LABS: OBS Int Ctl Valid YES
[2024-09-28 08:21] LABS: INTERNATIONAL NORM RATIO 0.9 (0.9-1.1); Prothrombin Time 10.4 SEC (10.9-12.4)
[2024-09-28 09:36] LABS: Alanine Aminotransferase 46 U/L (0-31); Albumin Level 3.1 g/dL (3.5-5.0); Alkaline Phosphatase 115 U/L (39-117); Anion Gap 11 (12-20); Aspartate Amino Transferase 50 U/L (5-31); Bilirubin Direct < 0.2 mg/dL (0.0-0.5); Bilirubin Total 0.2 mg/dL (0.0-1.0); Blood Urea Nitrogen 16 mg/dL (9-16); Calcium 8.8 mg/dL (8.4-10.2); Carbon Dioxide 31 mmol/L (22-29); Chloride 104 mmol/L (96-108); Creatinine Clr Calc Pharmacy 62.7; Estimated Glomerular Filt Rate > 60; Glucose Random 84 mg/dL (60-115); Lipase 24 U/L (8-78); Magnesium 2.2 mg/dL (1.6-2.6); Potassium 5.1 mmol/L (3.3-5.1); Sodium 141 mmol/L (135-145)
[2024-09-28 09:39] LABS: CDiff Gene PCR POSITIVE (Negative)
[2024-09-28 09:41] LABS: Adenovirus F 40/41 Not Detected (Not Detect.); Astrovirus Not Detected (Not Detect.); Campylobacter Not Detected (Not Detect.); Cryptosporidium Not Detected (Not Detect.); Cyclospora cayetanensis Not Detected (Not Detect.); E. coli EAEC Not Detected (Not Detect.); E. coli EPEC Not Detected (Not Detect.); E. coli ETEC Not Detected (Not Detect.); E. coli STEC Not Detected (Not Detect.); Entamoeba histolytica Not Detected (Not Detect.); Giardia lamblia Not Detected (Not Detect.); Norovirus GI/GII Not Detected (Not Detect.); Plesiomonas shigelloides Not Detected (Not Detect.); Rotavirus A Not Detected (Not Detect.); Salmonella Not Detected (Not Detect.); Sapovirus Not Detected (Not Detect.); Shigella sp./EIEC Not Detected (Not Detect.); Vibrio Not Detected (Not Detect.); Vibrio Cholerae Not Detected (Not Detect.); Yersinia enterocolitica Not Detected (Not Detect.)
[2024-09-28 10:05] LABS: CDiff Toxin Positive (Negative)
[2024-09-28 10:06] LABS: CDIFF Internal ctrl Dots and bkg OK (V)
[2024-09-28] MEDS: vancomycin HCL Oral Solution 125 MG/5 ML SOLN.RECON PO (10:18)
--- NOTE | 2024-09-28 10:31 | PHA.MEDREC ---
Pharmacy Consult ? Medication Reconciliation Pharmacy has completed the medication reconciliation, utilized list from [facility] and [facility], also utilized claims for things patient had on list and most recently filled.
[2024-09-28 11:19] LABS: B Type Natriuretic Peptide 95 pg/mL (<100)
[2024-09-28 11:26] VITALS: BP 117/66; PULSE 65; RESP 15; TEMP 36.7; O2SAT 90
[2024-09-28 12:40] VITALS: BP 117/66; PULSE 65; RESP 15; TEMP 36.7; O2SAT 90
== END 2024-09-28 12:42 | disposition home or self-care (01) ==
PROVIDERS: Emergency Provider Emergency Medicine; PCP Internal Medicine
DX: A04.8 Other specified bacterial intestinal infections (principal); E78.00 Pure hypercholesterolemia, unspecified; E03.9 Hypothyroidism, unspecified; I44.7 Left bundle-branch block, unspecified; Q90.9 Down syndrome, unspecified; D53.1 Other megaloblastic anemias, not elsewhere classified; J96.01 Acute respiratory failure with hypoxia; J18.8 Other pneumonia, unspecified organism; Z99.81 Dependence on supplemental oxygen; Z79.82 Long term (current) use of aspirin; Z79.899 Other long term (current) drug therapy; Z86.73 Personal history of transient ischemic attack (TIA), and cerebral infarction without residual deficits
CPT/HCPCS: 36415; 71045; 80048; 80076; 82272; 83690; 83735; 83880; 85025; 85610; 86850; 86900; 86901; 87324; 87493; 87507; 99283; 99284

== ENCOUNTER → 2024-09-28 09:37 | Outpatient (BNV) | payer MEDICARE, MEDICAID, SELFPAY | PROVIDERS: Emergency Provider Emergency Medicine; PCP Internal Medicine; Visit Provider Radiology Diagnostic Radiology | DX: R05.9 Cough, unspecified (principal) | CPT/HCPCS: 71045 ==

== ENCOUNTER 2024-10-26 15:39 | Emergency (ER) | payer MEDICARE, MEDICAID, SELFPAY ==
--- NOTE | ~2024-10-26 | CT_ITS ---
CLINICAL HISTORY: sob CT head without contrast COMPARISON: CT/SR - CT HEAD/BRAIN WO IV CON - 10/26/24 19:08 EDT FINDINGS: Global cerebral volume loss and chronic microvascular ischemic changes. No acute intracranial hemorrhage, extra-axial fluid collection, mass effect, or midline shift. Ventricular system and basilar cisterns are patent. Gonsalves-white matter differentiation is maintained. No gross orbital abnormality. No suspicious or acute bone lesion. Mastoid air cells and paranasal sinuses are predominantly clear. IMPRESSION: 1. No acute intracranial abnormality. 2. Global cerebral volume loss and chronic microvascular ischemic changes. This document has been electronically signed by: Kalyan Rawls MD on 10/26/2024 22:16:05
--- NOTE | ~2024-10-26 | XR_ITS ---
CLINICAL HISTORY: seizure Single view of the chest. Comparison comparison 09/28/2024. Findings: The heart is enlarged. There is possible ill-defined consolidation in the lower lungs. No pleural effusion is seen. Impression: Possible ill-defined consolidation in the lower lungs. There is mild nonspecific interstitial prominence. Mild edema is a possibility. This document has been electronically signed by: Galen Fuentes MD on 10/26/2024 17:34:02
--- NOTE | ~2024-10-26 | CT_ITS ---
CLINICAL HISTORY: sob CT chest without contrast Comparison: CT/PA/SR - CT ANGIO CHEST PE PROTOCOL - 08/24/24 13:58 EST Findings: Bilateral lower lobe consolidation with associated atelectasis and bronchiectasis. Findings of not significantly changed overall when compared with the prior study. No pleural effusion or pneumothorax. Cardiomegaly. No pericardial effusion. No thoracic aortic aneurysm. No acute fracture or suspicious bone lesion. IMPRESSION: 1. Bilateral lower lobe consolidation consistent with pneumonia, possibly due to aspiration given the distribution. Findings are not significantly changed from the previous study and appear chronic as there is some associated bronchiectasis. 2. Cardiomegaly with findings of pulmonary edema similar to the previous exam. This document has been electronically signed by: Kalyan Rawls MD on 10/26/2024 22:15:41
--- NOTE | ~2024-10-26 | CT_ITS ---
CLINICAL HISTORY: sz new CT of the head without contrast. No comparison. Findings: Motion artifact markedly limits the exam. There is atrophy with white matter changes. There is mild encephalomalacia bilaterally. There is mild relative enlargement of the lateral ventricles that is indeterminate. There is basilar invagination with prominent protrusion of the dens into the foramen magnum. Impression: Markedly limited study with no definite acute hemorrhage or infarct. Indeterminate enlargement of the lateral ventricles. Recommend comparison to previous or follow-up to exclude the possibility of mild hydrocephalus. This document has been electronically signed by: Galen Fuentes MD on 10/26/2024 20:06:26
[2024-10-26 15:55] VITALS: BP 112/60; BP 94/66; PULSE 77; PULSE 94; RESP 20; O2SAT 74; O2SAT 96; BMI 18.6
[2024-10-26 15:58] VITALS: O2SAT 92
--- NOTE | 2024-10-26 16:16 | ECG_ITS ---
Test Reason : siezure Blood Pressure : */* mmHG Vent. Rate : 60 BPM Atrial Rate : 60 BPM P-R Int : 194 ms QRS Dur : 120 ms QT Int : 448 ms P-R-T Axes : 25 -48 26 degrees QTcB Int : 448 ms Normal sinus rhythm Left axis deviation Incomplete left bundle branch block Minimal voltage criteria for LVH, may be normal variant ( Tushar product ) Nonspecific ST abnormality Abnormal ECG When compared with ECG of 23-Sep-2024 15:39, No significant change was found Referred By: Octavia Becker Electronically Signed By: ALESHIA CID
[2024-10-26 16:47] LABS: MANUAL DIFF FLAG NO
[2024-10-26 16:48] LABS: Basophils Absolute Auto 0.1 X10*3/uL (0.0-0.2); Basophils Percent Auto 0.3 % (0-2); Eosinophils Absolute Auto 0.1 X10*3/uL (0.0-0.4); Eosinophils Percent Auto 0.3 % (0-4); Hematocrit 39.7 % (37.0-47.0); Hemoglobin 12.9 g/dl (12.0-16.0); Imm Gran Abs Auto 0.08 X10*3/uL (0.00-0.03); Imm Gran Pct Auto 0.5 % (0.0-0.4); Lymphocytes Percent Auto 5.9 % (20-40); Mean Corpuscular HGB Conc 32.5 g/dl (31.0-35.0); Mean Corpuscular Hemoglobin 34.4 pg (27.0-33.0); Mean Corpuscular Volume 105.9 fL (80.0-98.0); Monocytes Percent Auto 5.8 % (2-11); Neutrophils Absolute Auto 15.1 x10*3/uL (2.0-8.3); Neutrophils Percent Auto 87.2 % (45-73); Platelet Count 194 X10*3/uL (160-400); Red Blood Count 3.75 X10*6/uL (4.20-5.50); Red Cell Distribution Width 17.2 % (11.0-16.0); White Blood Count 17.3 X10*3/uL (4.8-10.8)
[2024-10-26 17:04] LABS: Alanine Aminotransferase 24 U/L (0-31); Albumin Level 3.5 g/dL (3.5-5.0); Alkaline Phosphatase 91 U/L (39-117); Anion Gap 15 (12-20); Aspartate Amino Transferase 38 U/L (5-31); Bilirubin Direct < 0.2 mg/dL (0.0-0.5); Bilirubin Total 0.2 mg/dL (0.0-1.0); Blood Urea Nitrogen 37 mg/dL (9-16); Calcium 9.4 mg/dL (8.4-10.2); Carbon Dioxide 30 mmol/L (22-29); Chloride 102 mmol/L (96-108); Creatinine Clr Calc Pharmacy 35.3; Estimated Glomerular Filt Rate 57; Ethanol < 10 mg/dL; Glucose Random 108 mg/dL (60-115); Magnesium 2.5 mg/dL (1.6-2.6); Potassium 4.8 mmol/L (3.3-5.1); Sodium 142 mmol/L (135-145); Total Protein 7.5 g/dL (6.5-8.0)
--- NOTE | 2024-10-26 17:11 | ED.SEIZURE ---
HPI - Seizure General Chief Complaint: Seizure Stated Complaint: seizure lasting 1 min with no previous history Time Seen by Provider: 10/26/24 16:42 History of Present Illness HPI Narrative: 64-year-old female with Down syndrome having hypothyroidism from Jorge L's, hypercholesterolemia baseline is on Trileptal 300 mg twice a day initially. Now weaned down recently to 150 mg twice a day. Also on Neurontin 450 mg twice a day down to 150 mg twice a day. Patient was noted to have a seizure episode it seems to be tonic clonic. It lasted for about a minute. Patient was sitting on the couch at that time. Patient has significant support in the family. No fever no chills. No chest pain or shortness breath no diaphoresis. Mental status is back to baseline moving all extremities. There was no trauma. Baseline oriented to self only. Related Data Home Medications ?Medication ?Instructions ?Recorded ?Confirmed cetyl and stearate 1 appl topical MOTH 12/11/23 09/28/24 alcohol-propylen glycol-sls topical cream (Cetaphil topical cream) acetaminophen 650 mg/20.3 mL oral 640 mg feeding tube Q4H PRN fever 09/28/24 09/28/24 solution or pain bisacodyl 10 mg rectal suppository 10 mg GA DAILY PRN Constipation 09/28/24 09/28/24 ipratropium 0.5 mg-albuterol 3 mg 3 ml inhalation Q6H PRN Dyspnea 09/28/24 09/28/24 (2.5 mg base)/3 mL nebulization soln magnesium hydroxide 400 mg/5 mL 30 ml PO DAILY PRN Constipation 09/28/24 09/28/24 oral suspension midodrine 5 mg tablet 5 mg PO DAILY 09/28/24 09/28/24 sodium phosphates 19 gram-7 118 ml GA DAILY PRN Constipation 09/28/24 09/28/24 gram/118 mL enema (Fleet Enema) Previous Rx's ?Medication ?Instructions ?Recorded hydrocortisone 2.5 % topical cream 1 appl GA BID PRN hemorrhoids #30 09/29/23 with perineal applicator grams (Proctosol HC) aspirin 81 mg chewable tablet 81 mg feeding tube DAILY #90 tabs 09/08/24 cholecalciferol (vitamin D3) 25 25 mcg feeding tube DAILY #30 tabs 03/06/25 mcg (1,000 unit) tablet dextromethorphan-guaifenesin 10 10 ml feeding tube Q4H PRN cough 09/08/24 mg-100 mg/5 mL oral syrup #500 mL gabapentin 300 mg capsule 300 mg feeding tube BID #60 caps 09/08/24 levothyroxine 137 mcg tablet 137 mcg feeding tube DAILY@0600 09/08/24 (Synthroid) #30 tabs oxcarbazepine 150 mg tablet 150 mg feeding tube BID #60 tabs 09/08/24 (Trileptal) oxcarbazepine 300 mg tablet 300 mg feeding tube BID #60 tabs 09/08/24 trazodone 50 mg tablet 50 mg feeding tube BEDTIME PRN 09/08/24 Sleep #30 tabs calcium 600 mg (as 1 tab PO BID@1600,2000 #60 tabs 09/21/24 carbonate)-vitamin D3 10 mcg (400 unit) tablet sennosides 8.6 mg-docusate sodium 1 tab PO BEDTIME #28 tabs 09/21/24 50 mg tablet (Senna Plus) cefdinir 250 mg/5 mL oral 300 mg (6 mL) PO BID 7 days #84 mL 09/23/24 suspension metronidazole 500 mg/5 mL oral 500 mg (5 mL) PO BID 6 days #60 mL 09/23/24 suspension fluticasone propionate 50 1 spray intranasal DAILY #16 grams 09/27/24 mcg/actuation nasal spray,suspension vancomycin 50 mg/mL oral solution 125 mg (2.5 mL) PO QID 10 days 09/28/24 #100 mL Allergies Allergy/AdvReac Type Severity Reaction Status Date / Time Sulfa (Sulfonamide Allergy Mild HIVES Verified 10/26/24 15:58 Antibiotics) sulfamethoxazole Allergy Mild HIVES Verified 10/26/24 15:58 [From Bactrim] amoxicillin [Amoxicillin] Allergy Unknown HIVES Verified 10/26/24 15:58 Clindamycin HCl Allergy Unknown rash Verified 10/26/24 15:58 trimethoprim [From Bactrim] Allergy Unknown HIVES Verified 10/26/24 15:58 Review of Systems Review of Systems: Positive seizure episode Unable to give detailed review of systems PMFSH Past Medical History Attestation statement: The following information was validated with the patient. Medical History Medicare annual wellness visit, subsequent Preoperative cardiovascular examination New onset left bundle branch block (LBBB) Lethargy COVID-19 virus infection Mental status alteration Colon cancer screening Atlantoaxial instability Cholelithiasis Mental and behavioral problem Hypercholesterolemia Vitamin D deficiency Closed right ankle fracture Patent foramen ovale Hypothyroid Megaloblastic anemia CVA (cerebral vascular accident) Cataracts, bilateral Down syndrome Jorge L's disease Surgical History Clubfoot Hx of tubal ligation Hx of cataract surgery History of colonoscopy Family History Family History Father No problems noted. Mother Hx of cancer of lung Social History Social History Household Members: Other Household Members Other:: CHD Housing: Other Housing Other:: long-term Do you presently have visiting nurse or other home services: Yes Unable to assess alcohol history related to: Unknown Alcohol intake: never Comment: skilled nursing staff at bedside Patient Tobacco Use Status: Never used Tobacco Smoked in Last 30 Days: No e-Cigarette/Vaping Use: Never Used Second Hand Smoke Exposure: No Use of substances other than those prescribed or required for medical reasons: No Advance Directives: Yes Advance Directives on File: Yes Advance Directives Date on File: 04/27/23 service: No Current occupational status: disabled Cognitive needs: Yes Hearing needs: No Vision needs: No Physical Exam Vital Signs: Vital Signs: Last Vital Signs Temp 99.8 F 10/26/24 17:43 Pulse 63 10/26/24 22:09 Resp 16 10/26/24 22:09 BP 120/65 10/26/24 22:09 Pulse Ox 97 10/26/24 22:09 O2 Del Method Room Air 10/26/24 22:09 O2 Flow Rate 4 10/26/24 15:58 BMI result Body Mass Index 18.6 Appearance: Alert. Oriented X3. No acute distress. Eyes: Pupils equal, round and reactive to light. ENT: Pharynx normal. Neck: Normal inspection. Neck supple. No lymph nodes noted. No crepitus CVS: Normal heart rate and rhythm. Pulses normal. Normal S1 and S2 Respiratory: No respiratory distress. Breath sounds normal. No Wheezing. No rales Abdomen: Soft and nontender. No rigidity. No distention. good BS x4 Skin: Skin warm and dry. Normal skin color. Normal skin turgor. Extremities: No lower extremity edema. Neurovascular intact to all extremities. No Lacerations. No Rash Neuro: Oriented X 3. No motor deficit. No sensory deficit. Moving all extermities. No slurred speech Medications Administered Discontinued Medications Generic Name Dose Route Start Last Admin Trade Name Lion PRN Reason Stop Dose Admin Diazepam 2.5 mg 10/26/24 19:39 10/26/24 19:54 Diazepam 10 Mg/2 Ml Cartridge IM 10/26/24 19:40 2.5 mg STAT STA Administration Medical Decision Making Medical Decision Making [facility] Narrative: 64 years old has a history of being on gabapentin and Trileptal the dose of which was recently reduced. Patient baseline has no history of seizure has a history of Down syndrome. Is more advanced in age at 64. We did a CT scan of the head which was grossly negative for any acute evidence of bleeding. Patient's labs showed an elevated white count. Chest x-ray showed question infiltrate. Had a long discussion with patient's family. Patient has a history of aspiration. Was on antibiotics. Was evaluated previously for the aspiration in the past. Patient had a previous CT scan which showed the infiltrate. Because of the elevated white count we did additional lab testing. Including a COVID flu RSV which were all negative. Patient's urine showed a question UTI with small amount of leukocyte esterase 21-50 white cells but some squamous cell 3-5. Patient is flu COVID RSV were all negative. My interpretation patient's chest x-ray showed a question bilateral infiltrate because of this we went ahead and did a CT scan of the chest. It did show chronic appearing infiltrate. There is no changes. Patient recently was discharged with a diagnosis of C diff. question the white count secondary to C diff. family complaints patient is still having some diarrhea. Considering patient's age patient's condition elected not to treat patient's chronic aspiration. Not to treat patient's questionable UTI. Will ask for patient to be maintained on current Trileptal and Neurontin. Patient is at risk for additional seizures. [place] at this time risk and benefit warrants us not to give another antibiotic in the setting of history of C diff recently. Still having diarrhea. Had a long discussion with family feel comfortable with that plan. Will discharge patient home. Close follow-up on an outpatient basis. Seizure precaution. Of note patient's O2 sat was 97% on room air on recheck multiple times. There is no hypoxia there is no increased work of breathing. Differential Diagnosis Differential Diagnoses: The differential diagnosis associated with the presentation includes New seizure, aspiration, UTI, C diff Admission/Observation Consideration of admission/observation: Escalation of care including admission/observation considered Consult Healthcare Provider Attempted to contact patient's primary physician multiple times unfortunately we are not able to get a hold of him. Lab Data MDM Lab Attestation statement: I reviewed the patient's lab results. 10/26/24 16:43 10/26/24 16:43 Labs: Lab Results 10/26/24 10/26/24 10/26/24 Range/Units 16:42 16:43 17:42 WBC 17.3 H (4.8-10.8) X10*3/uL RBC 3.75 L (4.20-5.50) X10*6/uL Hgb 12.9 (12.0-16.0) g/dl Hct 39.7 (37.0-47.0) % MCV 105.9 H (80.0-98.0) fL MCH 34.4 H (27.0-33.0) pg MCHC 32.5 (31.0-35.0) g/dl RDW 17.2 H (11.0-16.0) % Plt Count 194 D (160-400) X10*3/uL MPV 11.0 (9.4-12.3) fL Immature Gran % (Auto) 0.5 H (0.0-0.4) % Neut % (Auto) 87.2 H (45-73) % Lymph % (Auto) 5.9 L (20-40) % [place] % (Auto) 5.8 (2-11) % Eos % (Auto) 0.3 (0-4) % Baso % (Auto) 0.3 (0-2) % Lymph # (Auto) 1.0 L (1.2-4.9) X10*3/uL [place] # (Auto) 1.0 (0.1-1.2) X10*3/uL Eos # (Auto) 0.1 (0.0-0.4) X10*3/uL Baso # (Auto) 0.1 (0.0-0.2) X10*3/uL Abs Immat Gran (auto) 0.08 H (0.00-0.03) X10*3/uL Absolute Neuts (auto) 15.1 H (2.0-8.3) x10*3/uL Absolute Nucleated RBC 0.000 (0.0-0.012) X10*3/uL Nucleated RBC % (auto) 0.0 (0.0-0.2) /100WBC Sodium 142 (135-145) mmol/L Potassium 4.8 (3.3-5.1) mmol/L Chloride 102 (96-108) mmol/L Carbon Dioxide 30 H (22-29) mmol/L Anion Gap 15 (12-20) BUN 37 H (9-16) mg/dL Creatinine 0.98 (0.5-1.4) mg/dL Estim Creat Clear Calc 35.3 Estimated GFR 57 Random Glucose 108 (60-115) mg/dL Lactic Acid 2.0 (0.5-2.0) mmol/L Calcium 9.4 D (8.4-10.2) mg/dL Magnesium 2.5 (1.6-2.6) mg/dL Total Bilirubin 0.2 (0.0-1.0) mg/dL Direct Bilirubin < 0.2 (0.0-0.5) mg/dL AST 38 H (5-31) U/L ALT 24 (0-31) U/L Alkaline Phosphatase 91 (39-117) U/L Total Protein 7.5 (6.5-8.0) g/dL Albumin 3.5 (3.5-5.0) g/dL TSH 15.64 H (0.32-4.0) uIU/mL Urine Color Dark Yellow Urine Appearance Clear Urine pH 6.0 (5.0-9.0) Ur Specific [place] 1.020 (1.005-1.025) Urine Protein 30 (1+) H (Neg-Trace) mg/dL Urine Glucose (UA) Negative (Negative) mg/dL Urine Ketones Negative (Negative) mg/dL Urine Blood Negative (Negative) Urine Nitrite Negative (Negative) Ur Leukocyte Esterase Small (1+) H (Negative) Urine RBC 0-2 (0-2) /HPF Urine WBC 21-50 H (0-5) /HPF Ur Squamous Epith Cells 3-5 (0-2) /HPF Urine Bacteria None Seen (None Seen) Hyaline Casts 6-10 (0-2) /LPF WBC Casts Present Urine Opiates Screen Not Detected (Not Detect) Ur Buprenorphine Scrn Not Detected (Not Detect) ng/mL Ur Oxycodone Screen Not Detected (Not Detect) ng/mL Urine Methadone Screen Not Detected (Not Detect) ng/mL Urine Fentanyl Screen Not Detected (Not Detect) Ur Barbiturates Screen Not Detected (Not Detect) Ur Phencyclidine Scrn Not Detected (Not Detect) Ur Amphetamines Screen Not Detected (Not Detect) U Benzodiazepines Scrn Not Detected (Not Detect) Urine Cocaine Screen Not Detected (Not Detect) U Marijuana (THC) Screen Not Detected (Not Detect) Ethyl Alcohol < 10 mg/dL Influenza Type A (PCR) NEGATIVE (Negative) Influenza Type B (PCR) NEGATIVE (Negative) RSV RNA Qual (PCR) NEGATIVE (Negative) SARS-CoV-2 RNA (RT-PCR) NEGATIVE (Negative) Independent Interpretation I performed an independent interpretation of an: CT Scan (CT head was grossly negative) Radiology Impression Discussion of test interpretation with radiology: I have reviewed the radiologist's reading. External Record Review External record reviewed: Office record Discharge Plan Discharge Clinical Impression: New onset seizure Patient Disposition: Home, Self-Care Instructions: Epilepsy in Older Adults (ED) Additional Instructions: Seizure precautions. No activities where if patient had a seizure at that time would cause her harm. Recommend to keep current doses of Trileptal and also gabapentin Prescriptions: No Action sennosides-docusate sodium [Senna Plus] 8.6-50 mg tablet 1 tab PO BEDTIME Qty: 28 0RF calcium carbonate-vitamin D3 600 mg-10 mcg (400 unit) tablet 1 tab PO BID@1600,2000 Qty: 60 0RF fluticasone propionate 50 mcg/actuation spray,suspension 1 spray intranasal DAILY Qty: 16 0RF levothyroxine [Synthroid] 137 mcg tablet 137 mcg feeding tube DAILY@0600 Qty: 30 0RF oxcarbazepine [Trileptal] 150 mg tablet 150 mg feeding tube BID Qty: 60 0RF trazodone 50 mg Tablet 50 mg feeding tube BEDTIME PRN (Reason: Sleep) Qty: 30 0RF oxcarbazepine 300 mg tablet 300 mg feeding tube BID Qty: 60 0RF dextromethorphan-guaifenesin 10-100 mg/5 mL syrup 10 ml feeding tube Q4H PRN (Reason: cough) Qty: 500 0RF gabapentin 300 mg capsule 300 mg feeding tube BID Qty: 60 0RF aspirin 81 mg tablet,chewable 81 mg feeding tube DAILY Qty: 90 0RF cholecalciferol (vitamin D3) 25 mcg (1,000 unit) tablet 25 mcg feeding tube DAILY Qty: 30 0RF metronidazole 500 mg/5 mL suspension 500 mg PO BID 6 Days Qty: 60 0RF Rx Instructions: END DATE 10/02/2024 cefdinir 250 mg/5 mL suspension for reconstitution 300 mg PO BID 7 Days Qty: 84 0RF Rx Instructions: END DATE 10/01/2024 Cetaphil Cream 1 appl TOPICAL MOTH Rx Instructions: after showers on Thursday and ipratropium-albuterol 0.5 mg-3 mg(2.5 mg base)/3 mL Solution For Nebulization 3 ml INHALATION Q6H PRN (Reason: Dyspnea) midodrine 5 mg Tablet 5 mg PO DAILY Rx Instructions: hold for SBP >130 magnesium hydroxide 400 mg/5 mL Suspension 30 ml PO DAILY PRN (Reason: Constipation) bisacodyl 10 mg Suppository 10 mg GA DAILY PRN (Reason: Constipation) Fleet Enema 19-7 gram/118 mL Enema 118 ml GA DAILY PRN (Reason: Constipation) acetaminophen 650 mg/20.3 mL solution 640 mg feeding tube Q4H PRN (Reason: fever or pain) vancomycin 50 mg/mL recon soln 125 mg PO QID 10 Days Qty: 100 0RF hydrocortisone [Proctosol HC] 2.5 % cream with perineal applicator 1 appl GA BID PRN (Reason: hemorrhoids) Qty: 30 2RF Referrals: Dulce Krishnamurthy MD [Physician] - 11/04/24 Print Language: Persian
[2024-10-26 17:27] LABS: Influenza A PCR NEGATIVE (Negative); Influenza B PCR NEGATIVE (Negative); Resp Syncy Virus RNA Qual PCR NEGATIVE (Negative); SARS COV2 PCR INHOUSE NEGATIVE (Negative)
[2024-10-26 17:43] VITALS: TEMP 37.7
--- NOTE | 2024-10-26 17:43 | MHC.EDTECH ---
Attempted to call listed provider, , in pt's chart per request of . Number was not in service. Called other numbers listed online for this provider but they were also not in service or did not lead to any real progress in contacting provider or answering service. Reached out to [facility] to get an updated number but the one given also did not work.
[2024-10-26 17:56] LABS: Appearance Urine Clear; Color Urine Dark Yellow; Glucose Urine UA Negative (Negative); Leukocyte Esterase Urine Small (1+) (Negative); Nitrite Urine Negative (Negative); UMIC TRIGGER UACC YES; Urine Blood Negative (Negative); Urine Ketones Negative (Negative); Urine Protein 30 (1+) mg/dL (Neg-Trace)
[2024-10-26 18:08] LABS: Amphetamine Screen Urine Not Detected (Not Detect); Barbiturates, Urine Not Detected (Not Detect); Benzodiazepines Screen Urine Not Detected (Not Detect); Buprenorphine Scr Not Detected (Not Detect); Cannabinoid Screen Urine Not Detected (Not Detect); Cocaine Screen Urine Not Detected (Not Detect); Fentanyl, urine Not Detected (Not Detect); Methadone Screen, Urine Not Detected (Not Detect); Opiate Screen Urine Not Detected (Not Detect); Oxycodone Screen Urine Not Detected (Not Detect); Phencyclidine Screen Urine Not Detected (Not Detect)
[2024-10-26 18:08] LABS: Thyroid Stimulating Hormone 15.64 uIU/mL (0.32-4.0)
[2024-10-26 18:10] LABS: Bacteria Urine None Seen (None Seen); RBC Urine 0-2 /HPF (0-2); UACC Culture Trigger YES; WBC Urine 21-50 /HPF (0-5); White Blood Cell Casts Urine Present
[2024-10-26 18:30] VITALS: BP 103/59; PULSE 73; RESP 18; O2SAT 96
--- OUTSIDE RECORDS SUMMARY | 2024-10-26 18:37 | XMS_ITS | Encounter Summary ---
Author Organization [facility] Address [address] [place] [address] Care Team Providers Care Fabric Worker Supervisor Name Role Phone Erickson Melton MD Primary Care Provider [phone] Encounter Details Date Type Department Care Team (Late st Contact Info) Description 10/26/2024 Lab Requisition [facility] - Main Lab [address] [facility] [place] [address] Erickson Melton MD [address] [place] [address] Diarrhea, unspecified Social History Tobacco Use Types Packs/Day Years Used Date Smoking Tobacco: Never Smokeless Tobacco: Never Housing Instability Answer Date Recorde d Are you worried that in the next 2 months you may not have stable housing? Unable to respond 10/06/2024 Food Access & Nutrition Answer Date Rec orded Do you have access to a vari ety of food including fruits and vegetables? Unable to respond 10/06/2024 Health Literacy Answer Date Recorded How often do you need to hav e someone help you when you read instructions, pamphlets, or other written material from your doctor or pharmacy? Unable to respond 10/06/2024 Caregiver: How often do you need to have someone help you when you read instructions, pamphlets, or other written material from your doctor or pharmacy? Not on file 025 Financial Risk Answer Date Recorded How hard is it for you to pa y for the very basics like food, housing, medical care, and air conditioning / heating? Unable to respond 10/06/2024 Transportation Answer Date Recorded Has the lack of transportati on kept you from meetings, work, or from getting things needed for daily living? Unable to respond 10/06/2024 Has the lack of transportati on kept you from medical appointments or from getting medications? Unable to respond 10/06/2024 Social Isolation Answer Date Recorded How often do you feel lonely or isolated from those around you? Unable to respond 10/06/2024 Food Risk Answer Date Recorded Within the past 12 months we worried whether our food would run out before we got money to buy more. Unable to respond 025 Within the past 12 months th e food we bought just didn't last and we didn't have money to get more. Unable to respond 09/2024 Dependent Care Answer Date Recorded Do you need help finding or paying for care for your loved ones. For example, child welfare counselor or elderly care for an older adult? Unable to respond 10/06/2024 Education Answer Date Recorded Do you think completing more education or training, like finishing a GED, going to college, or learning a trade, would be helpful for you? Unable to respond 10/06/2024 Employment and Income Answer Date Recor ded During the last four weeks, have you been actively looking for work? Unable to respond 10/06/2024 Living Situation Answer Date Recorded What is your living situation? 0 10/06/2024 Interpersonal Safety Answer Date Record ed Physical Abuse 10/10/2024 Verbal Abuse 10/10/2024 Comments No Sex and Gender Information Value Date Recorded Sex Assigned at Female 09/30/2024 10:42 PM EDT Legal Sex Female 5:46 PM EST Gender Identity Female 09/30/2024 10:42 PM EDT Sexual Orientation Straight 09/30/2024 10 :42 PM EDT documented as of this encounter Plan of Treatment Not on file documented as of this encounter Procedures Procedure Name Priority Date/Time Associated Diagnosis Comments CLOSTRIDIUM DIFFICILE TOXIN Routine 10/26/2024 12:00 AM EDT Diarrhea, unspecified documented in this encounter Results * (ABNORMAL) Clostridium difficile toxin (10/26/2024 12:00 AM EDT) Clostridium difficile GDH Antigen Positive( A) Negative 10/26/2024 4:33 PM EDT [facility] C difficile Toxins A+B, EIA Positive( AA) Negative 10/26/2024 4:33 PM EDT [facility] Comment: CRITICAL RESULT POSITIVE FOR TOXIN PRODUCING CLOSTRIDIOIDES DIFFICILE, NO ADDITIONAL TESTING IS NECESSARY. REPEAT SAMPLES SHOULD NOT BE SUBMITTED FOR TEST OF CURE. Stool Rectum structure / Unknown 10/26/2024 10/26/2024 3:36 PM EDT us Erickson Melton MD LAB MICROBIOLOGY - GENERAL ORDERABLES Final Result [facility] [address] [place] [address], documented in this encounter Visit Diagnoses Diagnosis Diarrhea, unspecified documented in this encounter Additional Health Concerns Infection Onset Date Last Indicated Resolved Time C. difficile Comment:Tested (+) at SNF; started on PO ABT 09/29/24 NL 09/29/2024 10/26/2024 documented as of this encounter Care Teams Fabric Worker Supervisor Relationship Specialty Start Date End Date Erickson Melton MD [address] [place] [address] PCP - General Internal Medicine 09/13/24 documented as of this encounter
--- OUTSIDE RECORDS SUMMARY | 2024-10-26 18:37 | XMS_ITS | Encounter Summary ---
Author Organization [facility] Address [address] [place] [address] Care Team Providers Care Ball Winder Name Role Phone Erickson Melton MD Primary Care Provider +1- [phone] Encounter Details Date Type Department Care Team (Late st Contact Info) Description 10/17/2024 Lab Requisition [facility] - Main Lab [address] [facility] [place] [address] Erickson Melton MD [address] [place] [address] Pneumonia, unspecified organism; Anemia, unspecified Social History Tobacco Use Types Packs/Day [...] care for your loved ones. For example, childcare center administrator or elderly care for an older adult? [...] Procedure Name Priority Date/Time Associated Diagnosis Comments COMPLETE BLOOD COUNT Routine 10/18/2024 8:38 AM EDT Pneumonia, unspecified organism Anemia, unspecified BASIC METABOLIC PANEL Routine 10/18/2024 8:38 AM EDT Pneumonia, unspecified organism Anemia, unspecified documented in this encounter Results * (ABNORMAL) Basic metabolic panel (10/18/2024 8:38 AM EDT) Sodium 139 133 - 145 mmol/L LAB CHEMISTRY METHOD 10/18/2024 11:47 AM [facility] Potassium 4.0 3.5 - 5.5 mmol/L LAB CHEMISTRY METHOD 10/18/2024 11:47 AM [facility] Chloride 99 96 - 110 mmol/L LAB CHEMISTRY METHOD 10/18/2024 11:47 AM [facility] CO2 35(H) 21 - 32 mmol/L LAB CHEMISTRY METHOD 10/18/2024 11:47 AM [facility] Anion Gap 5 3 - 11 LAB CHEMISTRY METHOD 10/18/2024 11:47 AM [facility] Glucose 76 70 - 100 mg/dL LAB CHEMISTRY METHOD 10/18/2024 11:47 AM [facility] BUN 19 5 - 25 mg/dL LAB CHEMISTRY METHOD 10/18/2024 11:47 AM [facility] Creatinine 0.71 0.50 - 1.10 mg/dL LAB CHEMISTRY METHOD 10/18/2024 11:47 AM [facility] eGFR 95 >=60 mL/min/1. 73m2 LAB CHEMISTRY METHOD 10/18/2024 11:47 AM [facility] Comment:Calculation based on the??Chronic Kidney Disease Epidemiology Collaboration (CKD-EPI) equation refit??without adjustment for race. BUN/Creatinine Ratio 26.8 LAB CHEMISTRY METHOD 10/18/2024 11:47 AM [facility] Calcium 9.4 8.5 - 10.5 mg/dL LAB CHEMISTRY METHOD 10/18/2024 11:47 AM [facility] Blood Venous blood specimen / Unknown Venipuncture / Unknown 10/18/2024 8:38 AM EDT 10/18/2024 10:05 AM EDT Erickson Melton MD LAB BLOOD ORDERABLES Final Result [facility] [address] [place] [address], * (ABNORMAL) Complete blood count (10/18/2024 8:38 AM EDT) WBC 2.4(L) 4.8 - 10.8 K/mcL LAB HEMETOLOGY METHOD 10/18/2024 11:22 AM EDT [facility] RBC 3.60(L) 3.80 - 4.80 M/mcL LAB HEMETOLOGY METHOD 10/18/2024 11:22 AM [facility] Hemoglobin 12.3 11.5 - 16.0 g/dL LAB HEMETOLOGY METHOD 10/18/2024 11:22 AM [facility] Hematocrit 39.0 35.0 - 47.0 % LAB HEMETOLOGY METHOD 10/18/2024 11:22 AM [facility] MCV 107.7(H) 79.0 - 98.0 FL LAB HEMETOLOGY METHOD 10/18/2024 11:22 AM [facility] MCH 34.0(H) 27.0 - 32.0 pcg LAB HEMETOLOGY METHOD 10/18/2024 11:22 AM [facility] MCHC 31.5(L) 32.0 - 37.0 g/dL LAB HEMETOLOGY METHOD 10/18/2024 11:22 AM [facility] RDW 17.2(H) 11.0 - 15.0 % LAB HEMETOLOGY METHOD 10/18/2024 11:22 AM [facility] Platelets 238 130 - 400 K/mcL LAB HEMETOLOGY METHOD 10/18/2024 11:22 AM [facility] MPV 10.8 7.0 - 11.0 FL LAB HEMETOLOGY METHOD 10/18/2024 11:22 AM EDT [facility] NRBC 0.0 <1.0 % LAB HEMETOLOGY METHOD 10/18/2024 11:22 AM EDT [facility] NRBC Absolute 0.00 <0.10 K/mcL LAB HEMETOLOGY METHOD 10/18/2024 11:22 AM EDT [facility] Blood Venous blood specimen / Unknown Venipuncture / Unknown 10/18/2024 8:38 AM EDT 10/18/2024 10:05 AM EDT us Erickson Melton MD LAB BLOOD ORDERABLES Final Result [facility] [address] [place] [address], documented in this encounter Visit Diagnoses Diagnosis Pneumonia, unspecified organism Anemia, unspecified documented in this encounter Additional Health Concerns Infection Onset Date Last Indicated Resolved Time C. difficile Comment:Tested (+) at SNF; started on PO ABT 09/29/24 NL 09/29/2024 10/26/2024 documented as of this encounter Care Teams Ball Winder Relationship Specialty Start Date End Date Erickson Melton MD [address] [place] [address] PCP - General Internal Medicine 09/13/24 documented as of this encounter
--- OUTSIDE RECORDS SUMMARY | 2024-10-26 18:37 | XMS_ITS | Data Portability ---
Author Organization [facility], [address] Address [address] [place] [address] Assessment No assessment recorded. Plan of Treatment Reminders Order Date Submit Date Provider Last Modified By Organization Details Last Modified Time Details Appointments None recorded. Lab None recorded. Referral emergency medicine referral 2022 023 [email or web address] [facility] Emergency Room, [address] [place], [address], 3 08:00:22 Procedures None recorded. Surgeries None recorded. Imaging None recorded. Medication Orders None recorded. Patient TargetsNo targets recorded. Patient Instructions Encounter Date Encounter Id Patient Instructions Last Modified By Organization Details Last Modified Time 10/21/2022 [id number] You have been advised to go now to the Emergency Department for further evaluation. [facility] ER has been advised of your impending arrival. [email or web address] Not available 10/21/2022 17:01:48 Reason for Referral Emergency Medicine Referral for Petechiae of skin New petechial rash bilateral lower extremities (since last night) Referring Physician: Sveta Martin, Urgent Care, Encounter Date: 10/21/2022 Problems Name Problem SNOMED Code Status Onset Date Resolution Date Notes Provider Name and Address Organization Details Recorded Time Feeling agitated 10755614 Active 2022 IRIS COUVERTIE R null, [place] - [facility] 3 15:15:15 Mood disorder 51613307 Active 2022 IRIS COUVERTIE R null, [place] - [facility] 3 15:15:25 Aggressive behavior 37044334 Active 2022 IRIS COUVERTIE R null, [place] - [facility] 3 15:15:36 Constipation 32604194 Active 2022 IRIS COUVERTIE R null, [place] - [facility] 3 15:15:52 Hypothyroidism 89998020 Active 2022 IRIS COUVERTIE R null, [place] - [facility] 3 15:16:05 Allergic rhinitis 65423707 Active 2022 IRIS COUVERTIE R null, [place] - [facility] 3 15:16:38 Tinea pedis 9222257 Active 2022 IRIS COUVERTIE R null, [place] - [facility] 3 15:16:53 Sleep disorder 78818137 Active 2022 IRIS COUVERTIE R null, [place] - [facility] 3 15:18:09 Problem Notes None recorded. Medical Equipment None Reported. Allergies Allergen ID Allergen Name Allergen Category Reaction Reaction Severity Criticality Documentation Date Start Date Code Code System Note Provider Name and Address Organization Details Recorded Time 000904 amoxicill in medicatio n Not available Not available Not available 10/21/2022 723 RxNorm IRIS COUVERTIE R null, [place] - [facility] 3 15:04:10 255713 Bactrim medicatio n Not available Not available Not available 10/21/2022 78441 9 RxNorm IRIS COUVERTIE R null, [place] - [facility] 3 15:04:17 972153 Substance with sulfonami de structure and antibacte rial mechanism of action (substanc e) medicatio n Not available Not available Not available 10/21/2022 91697 8003 SNOMED IRIS COUVERTIE R null, [place] - [facility] 3 15:04:22 687458 clindamyc in Not available Not available Not [...] % 94 % 124.46 cm 24.7 kg/m2 93837.8 6 g 96 mm[Hg] 69 mm[Hg] LIBORIO [...] SNOMED-CT Code Diagnosis ICD10 Code Diagnosis Note [id number] [place] [address] [address] 10/21/2022 09:24:57 10/21/2022 17:07:10 Petechiae of skin 329024005 R23.3 Health Concerns Section Related Observation LastModified by Organization Detai ls LastModified Time None Recorded Concern Status LastModified by Organization Details LastModified Time None Recorded Advance Directives Directive None Recorded Payers Encounter Date Sequence Insurance Name Policy Number Policy Lu Covered Member ID Lu Member ID Guarantor Name 10/21/2022 1 [place] [employer] Whitney Lucero [id number] Whitney Lucero 10/21/2022 2 [place] [facility] Whitney Lucero [id number] Whitney Lucero Notes Date Note Type Note [...] with hx of Down's syndrome brought by skilled nursing staff member for evaluation of a red rash to her lower legs noted first last night. The patient is a poor historian and history obtained by skilled nursing staff member. No hx of fever, runny nose, cough, vomiting, diarrhea. No new medications, soaps or lotions. The rash does not appear to be itchy but seems to be spreading. Sveta Martin MD [address] [facility] [place], [address], [place] - [facility] 10/21/2022 17:07:58 OBGyn Episode No OBEpisode recorded.
--- OUTSIDE RECORDS SUMMARY | 2024-10-26 18:37 | XMS_ITS | Encounter Summary ---
Author Organization [facility] Address [address] [place] [address] Care Team Providers Care Payroll Examiner Name Role Phone Erickson Melton MD Primary Care Provider +1- [phone] Encounter Details Date Type Department Care Team (Late st Contact Info) Description 09/19/2024 Lab Requisition [facility] - Main Lab 299 [facility] [place] [address] Erickson Melton MD [address] [place] [address] Other seizures (CMS/HCC V24, CMS/HCC V28); Hypothyroidism, unspecified Social History Tobacco Use Types Packs/Day Years Used Date Smoking Tobacco: Never Assessed Comments Unknown Sex and Gender Information Value Date Recorded [...] Associated Diagnosis Comments COMPLETE BLOOD COUNT Routine 09/19/2024 9:04 AM EDT Other seizures (CMS/HCC) Hypothyroidism, unspecified THYROXINE TOTAL Routine 09/19/2024 9:04 AM EDT Other seizures (CMS/HCC) Hypothyroidism, unspecified COMPREHENSIVE METABOLIC PANEL Routine 09/19/2024 9:04 AM EDT Other seizures (CMS/HCC) Hypothyroidism, unspecified documented in this encounter Results * (ABNORMAL) Thyroxine total (09/19/2024 9:04 AM EDT) [facility] T4, Total 2.8(L) 4.5 - 10.9 mcg/dL LAB CHEMISTRY METHOD 09/19/2024 1:40 PM EDT [facility] Blood Venous blood specimen / Unknown Venipuncture / Unknown 09/19/2024 9:04 AM EDT 09/19/2024 11:18 AM EDT Erickson Melton MD LAB BLOOD ORDERABLES Final Result [facility] [address] [place] [address], * (ABNORMAL) Comprehensive metabolic panel (09/19/2024 9:04 AM EDT) [facility] Sodium 139 133 - 145 mmol/L LAB CHEMISTRY METHOD 09/19/2024 1:38 PM [facility] Potassium 4.2 3.5 - 5.5 mmol/L LAB CHEMISTRY METHOD 09/19/2024 1:38 PM [facility] Chloride 97 96 - 110 mmol/L LAB CHEMISTRY METHOD 09/19/2024 1:38 PM T [facility] CO2 38(H) 21 - 32 mmol/L LAB CHEMISTRY METHOD 09/19/2024 1:38 PM [facility] Anion Gap 4 3 - 11 LAB CHEMISTRY METHOD 09/19/2024 1:38 PM [facility] Glucose 98 70 - 100 mg/dL LAB CHEMISTRY METHOD 09/19/2024 1:38 PM [facility] BUN 27(H) 5 - 25 mg/dL LAB CHEMISTRY METHOD 09/19/2024 1:38 PM T [facility] Creatinine 0.67 0.50 - 1.10 mg/dL LAB CHEMISTRY METHOD 09/19/2024 1:38 PM T [facility] eGFR 98 >=60 mL/min/1. 73m2 LAB CHEMISTRY METHOD 09/19/2024 1:38 PM T [facility] Comment:Calculation based on the??Chronic Kidney Disease Epidemiology Collaboration (CKD-EPI) equation refit??without adjustment for race. BUN/Creatinine Ratio 40.3 LAB CHEMISTRY METHOD 09/19/2024 1:38 PM T [facility] Calcium 8.9 8.5 - 10.5 mg/dL LAB CHEMISTRY METHOD 09/19/2024 1:38 PM [facility] AST (SGOT) 20 10 - 42 unit/L LAB CHEMISTRY METHOD 09/19/2024 1:38 PM [facility] ALT (SGPT) 32 10 - 60 unit/L LAB CHEMISTRY METHOD 09/19/2024 1:38 PM [facility] Alkaline Phosphatase 144(H) 42 - 121 unit/L LAB CHEMISTRY METHOD 09/19/2024 1:38 PM [facility] Total Protein 6.6 6.0 - 8.0 g/dL LAB CHEMISTRY METHOD 09/19/2024 1:38 PM [facility] Albumin 2.6(L) 3.2 - 5.0 g/dL LAB CHEMISTRY METHOD 09/19/2024 1:38 PM EDT [facility] Total Bilirubin 0.2 0.0 - 1.4 mg/dL LAB CHEMISTRY METHOD 09/19/2024 1:38 PM [facility] Blood Venous blood specimen / Unknown Venipuncture / Unknown 09/19/2024 9:04 AM EDT 09/19/2024 11:18 AM EDT us Erickson Melton MD LAB BLOOD ORDERABLES Final Result [facility] [address] [place] [address], * (ABNORMAL) Complete blood count (09/19/2024 9:04 AM EDT) [facility] WBC 7.4 4.8 - 10.8 K/mcL LAB HEMETOLOGY METHOD 09/19/2024 11:51 AM EDT [facility] RBC 3.30(L) 3.80 - 4.80 M/mcL LAB HEMETOLOGY METHOD 09/19/2024 11:51 AM EDT [facility] Hemoglobin 11.0(L) 11.5 - 16.0 g/dL LAB HEMETOLOGY METHOD 09/19/2024 11:51 AM EDT [facility] Hematocrit 35.4 35.0 - 47.0 % LAB HEMETOLOGY METHOD 09/19/2024 11:51 AM EDT [facility] MCV 108.3(H) 79.0 - 98.0 FL LAB HEMETOLOGY METHOD 09/19/2024 11:51 AM EDT [facility] MCH 33.6(H) 27.0 - 32.0 pcg LAB HEMETOLOGY METHOD 09/19[facility]2024 11[facility] MCHC 31.1(L) 32.0 - 37.0 g/dL LAB HEMETOLOGY METHOD 09/19/2024 11:51 AM EDT [facility] RDW 14.5 11.0 - 15.0 % LAB HEMETOLOGY METHOD 09/19/2024 11:51 AM EDT [facility] Platelets 291 130 - 400 K/mcL LAB HEMETOLOGY METHOD 09/19/2024 11:51 AM EDT [facility] MPV 11.1(H) 7.0 - 11.0 FL LAB HEMETOLOGY METHOD 09/19/2024 11:51 AM EDT [facility] NRBC 0.0 <1.0 % LAB HEMETOLOGY METHOD 09/19/2024 11:51 AM EDT [facility] NRBC Absolute 0.00 <0.10 K/mcL LAB HEMETOLOGY METHOD 09/19/2024 11:51 AM EDT [facility] Blood Venous blood specimen / Unknown Venipuncture / Unknown 09/19/2024 9:04 AM EDT 09/19/2024 11:18 AM EDT us Erickson Melton MD LAB BLOOD ORDERABLES Final Result [facility] [address] [place] [address], documented in this encounter Visit Diagnoses Diagnosis Other seizures (CMS/HCC V24, CMS/HCC V28) Hypothyroidism, unspecified documented in this encounter Additional Health Concerns Infection Onset Date Last Indicated Resolved Time C. difficile Comment:Tested (+) at SNF; started on PO ABT 09/29/24 NL 09/29/2024 10/26/2024 Respiratory Rule-Out 09/30/2024 09/30/2024 025 11:14 PM EDT COVID-19 Rule-Out 09/30/2024 09/30/2024 09/30/2024 11:14 PM EDT Respiratory Rule-Out 10/05/2024 10/05/2024 025 5:43 PM EDT COVID-19 Rule-Out 10/05/2024 10/05/2024 10/05/2024 5:43 PM EDT documented as of this encounter Care Teams Payroll Examiner Relationship Specialty Start Date End Date Erickson Melton MD [address] [place] [id number] PCP - General Internal Medicine 09/13/24 documented as of this encounter
--- OUTSIDE RECORDS SUMMARY | 2024-10-26 18:37 | XMS_ITS | Encounter Summary ---
Author Organization [facility] Address [address] [place] [address] Care Team Providers Care Senior Field Engineer Name Role Phone Erickson Melton MD Primary Care Provider +1- [phone] Encounter Details Date Type Department Care Team (Late st Contact Info) Description 09/26/2024 Lab Requisition [facility] - Main Lab 299 [facility] [place] [address] Erickson Melton MD [address] [place] [address] Anemia, unspecified; Hypothyroidism, unspecified; Other seizures (CMS/HCC V24, CMS/HCC V28) Social History Tobacco Use Types Packs/Day Years [...] Associated Diagnosis Comments COMPLETE BLOOD COUNT Routine 09/27/2024 7:12 AM EDT Anemia, unspecified Hypothyroidism, unspecified Other seizures (CMS/HCC) BASIC METABOLIC PANEL Routine 09/27/2024 7:12 AM EDT Anemia, unspecified Hypothyroidism, unspecified Other seizures (CMS/HCC) documented in this encounter Results * (ABNORMAL) Basic metabolic panel (09/27/2024 7:12 AM EDT) Sodium 142 133 - 145 mmol/L LAB CHEMISTRY METHOD 09/27/2024 8:30 AM [facility] Potassium 3.9 3.5 - 5.5 mmol/L LAB CHEMISTRY METHOD 09/27/2024 8:30 AM [facility] Chloride 102 96 - 110 mmol/L LAB CHEMISTRY METHOD 09/27/2024 8:30 AM [facility] CO2 37(H) 21 - 32 mmol/L LAB CHEMISTRY METHOD 09/27/2024 8:30 AM [facility] Anion Gap 3 3 - 11 LAB CHEMISTRY METHOD 09/27/2024 8:30 AM [facility] Glucose 108(H) 70 - 100 mg/dL LAB CHEMISTRY METHOD 09/27/2024 8:30 AM [facility] BUN 18 5 - 25 mg/dL LAB CHEMISTRY METHOD 09/27/2024 8:30 AM [facility] Creatinine 0.67 0.50 - 1.10 mg/dL LAB CHEMISTRY METHOD 09/27/2024 8:30 AM [facility] eGFR 98 >=60 mL/min/1. 73m2 LAB CHEMISTRY METHOD 09/27/2024 8:30 AM [facility] Comment:Calculation based on the??Chronic Kidney Disease Epidemiology Collaboration (CKD-EPI) equation refit??without adjustment for race. BUN/Creatinine Ratio 26.9 LAB CHEMISTRY METHOD 09/27/2024 8:30 AM [facility] Calcium 8.7 8.5 - 10.5 mg/dL LAB CHEMISTRY METHOD 09/27/2024 8:30 AM [facility] Blood Venous blood specimen / Unknown Venipuncture / Unknown 09/27/2024 7:12 AM EDT 09/27/2024 8:01 AM EDT us Erickson Melton MD LAB BLOOD ORDERABLES Final Result [facility] [address] [place] [address], * (ABNORMAL) Complete blood count (09/27/2024 7:12 AM EDT) WBC 7.2 4.8 - 10.8 K/mcL LAB HEMETOLOGY METHOD 09/27/2024 8:09 AM EDT [facility] RBC 3.20(L) 3.80 - 4.80 M/mcL LAB HEMETOLOGY METHOD 09/27/2024 8:09 AM EDT [facility] Hemoglobin 10.9(L) 11.5 - 16.0 g/dL LAB HEMETOLOGY METHOD 09/27/2024 8:09 AM EDT [facility] Hematocrit 35.3 35.0 - 47.0 % LAB HEMETOLOGY METHOD 09/27/2024 8:09 AM EDT [facility] MCV 109.6(H) 79.0 - 98.0 FL LAB HEMETOLOGY [facility] M[facility] 33.9(H) 27.0 - 32.0 pcg LAB HEMETOLOGY METHOD [facility]24 [facility] MCHC 30.9(L) 32.0 - 37.0 g/dL LAB HEMETOLOGY METHOD [facility]24 [facility] RDW 16.3(H) 11.0 - 15.0 % LAB HEMETOLOGY METHOD 09/27/2024 8[facility] Platelets 268 130 - 400 K/mcL LAB HEMETOLOGY METHOD 09/27/2024 8:09 AM EDT [facility] MPV 10.7 7.0 - 11.0 FL LAB HEMETOLOGY METHOD 09/27/2024 8:09 AM EDT [facility] NRBC 0.0 <1.0 % LAB HEMETOLOGY METHOD 09/27/2024 8:09 AM EDT [facility] NRBC Absolute 0.00 <0.10 K/mcL LAB HEMETOLOGY METHOD 09/27/2024 8:09 AM EDT [facility] Blood Venous blood specimen / Unknown Venipuncture / Unknown 09/27/2024 7:12 AM EDT 09/27/2024 8:01 AM EDT Erickson Melton MD LAB BLOOD ORDERABLES Final Result [facility] [address] [place] [address], documented in this encounter Visit Diagnoses Diagnosis Anemia, unspecified Hypothyroidism, unspecified Other seizures (CMS/HCC V24, CMS/HCC V28) documented in this encounter Additional Health Concerns [...] documented as of this encounter Care Teams Senior Field Engineer Relationship Specialty Start Date End Date Erickson Melton MD [address] [place] [id number] PCP - General Internal Medicine 09/13/24 documented as of this encounter
--- OUTSIDE RECORDS SUMMARY | 2024-10-26 18:37 | XMS_ITS | Encounter Summary ---
Author Organization [facility] Address [address] [place] [address] Care Team Providers Care Foundry Operator Name Role Phone Erickson Melton MD Primary Care Provider [phone]- [phone] Encounter Details Date Type Department Care Team (Late st Contact Info) Description 10/24/2024 Lab Requisition [facility] - Main Lab [address] [facility] [place] [address] Erickson Melton MD [address] [place] [address] Pneumonia, unspecified organism; Anemia, unspecified Social History [...] care for your loved ones. For example, children's author or elderly care for an older adult? [...] Associated Diagnosis Comments COMPLETE BLOOD COUNT Routine 10/25/2024 8:09 AM EDT Pneumonia, unspecified organism Anemia, unspecified BASIC METABOLIC PANEL Routine 10/25/2024 8:09 AM EDT Pneumonia, unspecified organism Anemia, unspecified documented in this encounter Results * (ABNORMAL) Basic metabolic panel (10/25/2024 8:09 AM EDT) Sodium 142 133 - 145 mmol/L LAB CHEMISTRY METHOD 10/25/2024 11:17 AM [facility] Potassium 4.2 3.5 - 5.5 mmol/L LAB CHEMISTRY METHOD 10/25/2024 11:17 AM [facility] Chloride 102 96 - 110 mmol/L LAB CHEMISTRY METHOD 10/25/2024 11:17 AM [facility] CO2 31 21 - 32 mmol/L LAB CHEMISTRY METHOD 10/25/2024 11:17 AM [facility] Anion Gap 9 3 - 11 LAB CHEMISTRY METHOD 10/25/2024 11:17 AM [facility] Glucose 98 70 - 100 mg/dL LAB CHEMISTRY METHOD 10/25/2024 11:17 AM [facility] BUN 26(H) 5 - 25 mg/dL LAB CHEMISTRY METHOD 10/25/2024 11:17 AM [facility] Creatinine 0.71 0.50 - 1.10 mg/dL LAB CHEMISTRY METHOD 10/25/2024 11:17 AM [facility] eGFR 95 >=60 mL/min/1. 73m2 LAB CHEMISTRY METHOD 10/25/2024 11:17 AM [facility] Comment:Calculation based on the??Chronic Kidney Disease Epidemiology Collaboration (CKD-EPI) equation refit??without adjustment for race. BUN/Creatinine Ratio 36.6 LAB CHEMISTRY METHOD 10/25/2024 11:17 AM [facility] Calcium 8.8 8.5 - 10.5 mg/dL LAB CHEMISTRY METHOD 10/25/2024 11:17 AM [facility] Blood Venous blood specimen / Unknown Venipuncture / Unknown 10/25/2024 8:09 AM EDT 10/25/2024 9:05 AM EDT Erickson Melton MD LAB BLOOD ORDERABLES Final Result [facility] [address] [place] [address], * (ABNORMAL) Complete blood count (10/25/2024 8:09 AM EDT) [facility] Signature WBC 5.1 4.8 - 10.8 K/mcL LAB HEMETOLOGY METHOD 10/25/2024 10:40 AM EDT [facility] RBC 3.70(L) 3.80 - 4.80 M/mcL LAB HEMETOLOGY METHOD 10/25/2024 10:40 AM EDT [facility] Hemoglobin 12.7 11.5 - 16.0 g/dL LAB HEMETOLOGY METHOD 10/25/2024 10:40 AM [facility] Hematocrit 40.0 35.0 - 47.0 % LAB HEMETOLOGY METHOD 10/[facility] MCV 107.2(H) 79.0 - 98.0 FL LAB HEMETOLOGY METHOD 10/25/2024 10:40 AM [facility] MCH 34.0(H) 27.0 - 32.0 pcg LAB HEMETOLOGY METHOD 10/25/2024 10:40 AM [facility] MCHC 31.8(L) 32.0 - 37.0 g/dL LAB HEMETOLOGY METHOD 10/25/2024 10:40 AM EDT [facility] RDW 16.7(H) 11.0 - 15.0 % LAB HEMETOLOGY METHOD 10/25/2024 10:40 AM EDT [facility] Platelets 189 130 - 400 K/mcL LAB HEMETOLOGY METHOD 10/25/2024 10:40 AM [facility] MPV 11.2(H) 7.0 - 11.0 FL LAB HEMETOLOGY METHOD 10/25/2024 10:40 AM EDT [facility] NRBC 0.0 <1.0 % LAB HEMETOLOGY METHOD 10/25/2024 10:40 AM EDT [facility] NRBC Absolute 0.00 <0.10 K/mcL LAB HEMETOLOGY METHOD 10/25/2024 10:40 AM EDT [facility] Blood Venous blood specimen / Unknown Venipuncture / Unknown 10/25/2024 8:09 AM EDT 10/25/2024 9:05 AM EDT us Erickson Melton MD LAB BLOOD ORDERABLES Final Result [facility] [address] [place] [address], documented in this encounter Visit Diagnoses Diagnosis Pneumonia, unspecified organism Anemia, unspecified documented in this encounter Additional Health Concerns Infection Onset Date Last Indicated Resolved Time C. difficile Comment:Tested (+) at [facility]; started on PO ABT 09/29/24 NL 09/29/2024 10/26/2024 documented as of this encounter Care Teams Foundry Operator Relationship Specialty Start Date End Date Erickson Mleton MD [address] [place] [id number] PCP - General Internal Medicine 09/13/24 documented as of this encounter
--- OUTSIDE RECORDS SUMMARY | 2024-10-26 18:37 | XMS_ITS | Clinical Summary ---
Author Organization [address] Address [address] [place] [phone] Phone Care Team Providers Care Senior System Operator Name Role Phone Erickson Melton MD Primary Care Provider [phone] Allergies Active Allergy Reactions Criticality Noted Date Comments Amoxicillin Unknown 09/30/2024 Patient has tolerated cefdinir in 2024 at [facility] and also ceftriaxone at [facility] 2024 Clindamycin Unknown 09/30/2024 Sulfa (Sulfonamide Antibiotics) 09/30/2024 Sulfamethoxazole Unknown 09/30/2024 Trimethoprim Unknown 09/30/2024 Medications Synthroid 137 mcg tablet Take 1 tablet (137 mcg total) via g-tube 1 (one) time each day before breakfast. 8 Active traZODone (DESYREL) 50 mg tablet Take 1 tablet (50 mg total) by mouth at bedtime as needed for sleep. 3 Active aspirin 81 mg EC tablet Take 1 tablet (81 mg total) by mouth 1 (one) time each day. Active OXcarbazepine (TRILEPTAL) 300 mg tablet Take 1 tablet (300 mg total) via g-tube 2 (two) times a day. Active acetaminophen 160 mg/5 mL elixir Take 640 mg via g-tube every 6 (six) hours if needed (fever). Active gabapentin (NEURONTIN) 300 mg capsule Take 1 capsule (300 mg total) via g-tube at bedtime. 5 Active midodrine (PROAMATINE) 5 mg tablet Take 2 tablets (10 mg total) via g-tube 3 (three) times a day before meals. 5 Active multivitamin with iron-minerals 9 mg iron/15 mL liquid Take 15 mL via g-tube 1 (one) time each day. 5 11/05/19 25 Active midodrine (PROAMATINE) 5 mg tablet Take 1 tablet (5 mg total) via g-tube 3 (three) times a day before meals. 10/05/19 25 Discontinued vancomycin 50 mg/mL recon soln Take 2.5 mL by mouth 4 (four) times a day. 10/05/19 25 Discontinued gabapentin (NEURONTIN) 300 mg capsule Take 1 capsule (300 mg total) via g-tube 2 (two) times a day. 10/05/19 25 Discontinued vancomycin 50 mg/mL recon soln Take 2.5 mL by mouth 4 (four) times a day for 11 days. 5 10/16/19 25 cefpodoxime (VANTIN) 200 mg tablet Take 1 tablet (200 mg total) by mouth 2 (two) times a day for 4 days. 5 10/07/19 25 Discontinued guaiFENesin (ROBITUSSIN) 100 mg/5 mL liquid Take 10 mL (200 mg total) by mouth 3 (three) times a day if needed for cough for up to 10 days. 120 mL 5 10/15/19 25 Active Problems Problem Noted Date Diagnosed Date Pneumonia of both lower lobes due to infectious organism 10/01/2024 Resolved Problems Problem Noted Date Diagnosed Date Resolved Date Fever 10/01/2024 10/01/2024 Encounters Date Type Department Care Team Description 10/26/2024 Lab Requisition [facility] Lab [address] [place] [address] Erickson Melton MD Diarrhea, unspecified 10/24/2024 Lab Requisition [facility] Lab [address] [place] [address] Erickson Melton MD Pneumonia, unspecified organism; Anemia, unspecified 10/17/2024 Lab Requisition [facility] Lab [address] [place] [address] Erickson Melton MD Pneumonia, unspecified organism; Anemia, unspecified 10/08/2024 11:59 PM EDT Anesthesia Event [facility] Main OR [address] [place] [phone] Martin Faria CRNA 10/08/2024 12:44 PM EDT Anesthesia Event [facility] Interventional Radiology [address] [place] [phone] Denilson Sharpe MD 10/05/2024 3:50 PM EDT - 10/10/2024 4:30 PM EDT Hospital Encounter [facility] Urology Unit [address] [place] [phone] Bayron Dias MD Mohani, Priya, MD Seralathan, Manikandan, MD Rasul, Yar M, MD Pneumonia of both lower lobes due to infectious organism (Primary Dx); 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[facility] V24, [facility] V28) Discharge Disposition: Halfway Facility 10/03/2024 Lab Requisition [facility] Lab [address] [facility] [place] [phone] Erickson Melton MD Anemia, unspecified; Hypothyroidism, unspecified; Other seizures ([facility] V24, [facility] V28) 09/30/2024 9:22 PM EDT - 10/04/2024 2:46 PM EDT Hospital Encounter [facility] Urology Unit [address] [place] [phone] Madelyn Woodard MD Maduakor, Emmanuel C, MD Japaridze, Anna, MD Kokosadze, Estate, MD Pneumonia of both lower lobes due to infectious organism (Primary Dx); Sepsis with acute hypoxic respiratory failure without septic shock, due to unspecified organism ([facility] V24, [facility] V28); C. difficile colitis Discharge Disposition: Halfway Facility 09/26/2024 Lab Requisition [facility] Lab [address] [place] [phone] Erickson Melton MD Anemia, unspecified; Hypothyroidism, unspecified; Other seizures ([facility] V24, [facility] V28) 09/19/2024 Lab Requisition [facility] [address] [place] [phone] Erickson Melton MD Anemia, unspecified; Hypothyroidism, unspecified; Other seizures ([facility] V24, [facility] V28) 09/19/2024 Lab Requisition [facility] [address] [place] [phone] Erickson Melton MD Other seizures ([facility] V24, [facility] V28); Hypothyroidism, unspecified 09/13/2024 Lab Requisition [facility] [address] [place] [phone] Erickson Melton MD Anemia, unspecified; Hypothyroidism, unspecified; Other seizures ([facility] V24, [facility] V28) from Last 3 Months Surgical History Surgery Date Site/Laterality Comments TUBAL LIGATION GASTROTOMY CATARACT EXTRACTION Medical History Medical History Date Comments Down syndrome Dementia ([facility] V24, [facility] V28) CVA (cerebral vascular accident) ([facility] V24, [place] V28) Hypothyroidism Aspiration pneumonia ([facility] V24, [facility] V28) C. difficile colitis Social History Tobacco Use Types Packs/Day Years Used Date Smoking Tobacco: Never Smokeless Tobacco: Never Tobacco Cessation:Counseling Given: Not Answered Housing Instability Answer Date Recorde d Are [...] for your loved ones. For example, child psychology teacher or elderly care for an older adult? [...] Orientation Straight 09/30/2024 10 :42 PM EDT Obstetrics History Last Filed Vital Signs Vital Sign Reading Time Taken Comments Blood Pressure 143/69 10/10/2024 2:15 PM EDT Pulse 60 10/10/2024 2:15 PM EDT Temperature 36.3 ??C (97.3 ??F) 10/10/2024 7:28 AM ED T Respiratory Rate 18 10/10/2024 2:15 PM EDT Oxygen Saturation 98% 10/10/2024 2:15 PM EDT Inhaled Oxygen Concentration - - Weight 40.8 kg (90 lb) 10/05/2024 3:59 PM EDT Height 121.9 cm (4') 10/05/2024 3:59 PM EDT Body Mass Index 27.46 10/05/2024 3:59 PM EDT Plan of Treatment Health Maintenance Due Date Last Done Comments Cervical Cancer Screening: Pap Smear 1981 Pneumococcal Vaccine: 50+ Years (1 of 1 - PCV) 2010 Zoster Vaccines (1 of 2) 2010 Breast Cancer Screening 11/02/2011 11/01/2009 Cholesterol Screening (Lipid Panel) 09/13/2024 Colorectal Cancer Screening: Colonoscopy 09/13/2024 Depression Screening 09/13/2024 HIV Screening 09/13/2024 Hepatitis C Screening 09/13/2024 Medicare Annual Wellness Visit 09/13/2024 Social Influencers of Health Screening 10/06/2025 10/06/2024 DTaP,Tdap,and Td Vaccines (2 - Td or Tdap) 09/06/2033 09/07/2023 RSV Immunization Adult Patients (1 - 1-dose 75+ series) 2035 COVID-19 Vaccine Completed 04/29/2024, , 04/30/2021, Additional history exists Influenza Vaccine Completed 04/29/2024, , 05/16/2022, Additional history exists HIB Vaccines Aged Out No longer eligi ble based on patient's age to complete this topic HPV Vaccines Aged Out No longer eligi ble based on patient's age to complete this topic Hepatitis A Vaccines Aged Out No long er eligible based on patient's age to complete this topic Hepatitis B Vaccines Aged Out No long er eligible based on patient's age to complete this topic IPV Vaccines Aged Out No longer eligi ble based on patient's age to complete this topic MMR Vaccines Aged Out No longer eligi ble based on patient's age to complete this topic Meningococcal ACWY Vaccine Aged Out N o longer eligible based on patient's age to complete this topic Meningococcal B Vaccine Aged Out No l onger eligible based on patient's age to complete this topic Pneumococcal Vaccine: Pediatrics (0 to 5 Years) and At-Risk Patients (6 to 64 Years) Aged Out No longer eligible based on patient's age to complete this topic RSV Immunization Patients Under 20 months Aged Out No longer eligible based on patient's age to complete this topic Varicella Vaccines Aged Out No longer eligible based on patient's age to complete this topic Procedures Procedure Name Priority Date/Time Associated Diagnosis Comments CLOSTRIDIUM DIFFICILE TOXIN Routine 10/26/2024 12:00 AM EDT Diarrhea, unspecified BASIC METABOLIC PANEL Routine 10/25/2024 8:09 AM EDT Pneumonia, unspecified organism Anemia, unspecified COMPLETE BLOOD COUNT Routine 10/25/2024 8:09 AM EDT Pneumonia, unspecified organism Anemia, unspecified BASIC METABOLIC PANEL Routine 10/18/2024 8:38 AM EDT Pneumonia, unspecified organism Anemia, unspecified COMPLETE BLOOD COUNT Routine 10/18/2024 8:38 AM EDT Pneumonia, unspecified organism Anemia, unspecified ECG ANNOTATED 10/11/2024 MANUAL DIFFERENTIAL - SYSMEX WAM Routine 10/10/2024 6:46 AM EDT CBC WITH AUTO DIFFERENTIAL Routine 10/10/2024 6:46 AM EDT CBC AND DIFFERENTIAL Routine 10/10/2024 6:46 AM EDT BASIC METABOLIC PANEL Routine 10/10/2024 6:46 AM EDT MAGNESIUM Routine 10/10/2024 6:46 AM EDT PHOSPHORUS Routine 10/10/2024 6:46 AM EDT MANUAL DIFFERENTIAL - SYSMEX WAM Routine 10/09/2024 8:54 AM EDT CBC WITH AUTO DIFFERENTIAL Routine 10/09/2024 8:54 AM EDT CBC AND DIFFERENTIAL Routine 10/09/2024 8:54 AM EDT BASIC METABOLIC PANEL Routine 10/09/2024 8:54 AM EDT MAGNESIUM Routine 10/09/2024 8:54 AM EDT PHOSPHORUS Routine 10/09/2024 8:54 AM EDT TH AN ENDOTRACHEAL(NO CHARGE) Routine 10/08/2024 2:30 PM EDT IR REPLACE G-TUBE PERC W FLUORO Routine 10/08/2024 1:39 PM EDT OXCARBAZEPINE LEVEL Timed 10/08/2024 6 :21 AM EDT LAVENDER - EDTA Routine 10/08/2024 6:14 AM EDT SST - GOLD Routine 10/08/2024 6:14 AM EDT EXTRA TUBES Routine 10/08/2024 6:14 AM EDT CBC WITH AUTO DIFFERENTIAL Routine 10/07/2024 6:09 AM EDT PHOSPHORUS Routine 10/07/2024 6:09 AM EDT MAGNESIUM Routine 10/07/2024 6:09 AM EDT CBC AND DIFFERENTIAL Routine 10/07/2024 6:09 AM EDT BASIC METABOLIC PANEL Routine 10/07/2024 6:09 AM EDT XR ABDOMEN 1 VIEW STAT 10/06/2024 3:3 7 PM EDT GONSALVES URINE CULTURE TUBE STAT 10/06/2024 1:13 PM EDT URINALYSIS WITH REFLEX MICROSCOPIC AND CULTURE STAT 10/06/2024 1:13 PM EDT URINALYSIS WITH REFLEX MICROSCOPIC AND CULTURE STAT 10/06/2024 1:13 PM EDT CBC WITH AUTO DIFFERENTIAL Routine 10/06/2024 6:16 AM EDT CBC AND DIFFERENTIAL Routine 10/06/2024 6:16 AM EDT BASIC METABOLIC PANEL Routine 10/06/2024 6:16 AM EDT MRSA PCR Routine 10/06/2024 2:10 AM EDT MRSA PCR Routine 10/05/2024 9:28 PM EDT TROPONIN I HIGH SENSITIVITY STAT 10/05/2024 7:01 PM EDT TROPONIN I HIGH SENSITIVITY STAT 10/05/2024 5:44 PM EDT XR CHEST 1 VIEW STAT 10/05/2024 5:[address] ABDOMEN PELVIS W CONTRAST STAT 10/05/2024 5:22 PM EDT BASIC METABOLIC PANEL STAT 10/05/2024 5:07 PM EDT ECG 12-LEAD STAT 10/05/2024 4:32 PM EDT RESPIRATORY VIRUS PANEL MOLECULAR STUDY STAT 10/05/2024 4:18 PM EDT CBC WITH AUTO DIFFERENTIAL STAT 10/05/2024 4:02 PM EDT CBC AND DIFFERENTIAL STAT 10/05/2024 4:02 PM EDT POCT GLUCOSE BLOOD Routine 10/04/2024 7: 26 AM EDT CBC WITH AUTO DIFFERENTIAL Routine 10/04/2024 6:43 AM EDT PHOSPHORUS Routine 10/04/2024 6:43 AM EDT MAGNESIUM Routine 10/04/2024 6:43 AM EDT BASIC METABOLIC PANEL Routine 10/04/2024 6:43 AM EDT CBC AND DIFFERENTIAL Routine 10/04/2024 6:43 AM EDT POCT GLUCOSE BLOOD Routine 10/04/2024 2: 28 AM EDT POCT GLUCOSE BLOOD Routine 10/03/2024 6: 28 PM EDT POCT GLUCOSE BLOOD Routine 10/03/2024 11 :39 AM EDT ECG 12-LEAD Routine 10/03/2024 8:43 AM EDT OXYGEN THERAPY, ADULT Routine 10/03/2024 8:02 AM EDT POCT GLUCOSE BLOOD Routine 10/03/2024 6: 04 AM EDT CBC WITH AUTO DIFFERENTIAL Routine 10/03/2024 5:27 AM EDT CBC AND DIFFERENTIAL Routine 10/03/2024 5:27 AM EDT BASIC METABOLIC PANEL Routine 10/03/2024 5:27 AM EDT POCT GLUCOSE BLOOD Routine 10/02/2024 11 :34 PM EDT OXYGEN THERAPY, ADULT Routine 10/02/2024 8:01 PM EDT POCT GLUCOSE BLOOD Routine 10/02/2024 5: 42 PM EDT OXYGEN THERAPY, ADULT Routine 10/02/2024 12:08 PM EDT OXYGEN THERAPY, ADULT Routine 10/02/2024 12:08 PM EDT OXYGEN THERAPY, ADULT Routine 10/02/2024 12:08 PM EDT CBC WITH AUTO DIFFERENTIAL Routine 10/02/2024 6:38 AM EDT MAGNESIUM Routine 10/02/2024 6:38 AM EDT CBC AND DIFFERENTIAL Routine 10/02/2024 6:38 AM EDT BASIC METABOLIC PANEL Routine 10/02/2024 6:38 AM EDT POCT GLUCOSE BLOOD Routine 10/02/2024 4: 43 AM EDT POCT GLUCOSE BLOOD Routine 10/01/2024 8: 40 PM EDT POCT GLUCOSE BLOOD Routine 10/01/2024 4: 03 PM EDT MRSA PCR Routine 10/01/2024 9:29 AM EDT MRSA PCR STAT 10/01/2024 7:45 AM EDT LACTATE Routine 10/01/2024 7:00 AM EDT CBC WITH AUTO DIFFERENTIAL Routine 10/01/2024 7:00 AM EDT BASIC METABOLIC PANEL Routine 10/01/2024 7:00 AM EDT CBC AND DIFFERENTIAL Routine 10/01/2024 7:00 AM EDT LACTATE, WITH REFLEX Timed 10/01/2024 2:[address] CHEST WO CONTRAST STAT 10/01/2024 1:[address] ABDOMEN PELVIS W CONTRAST STAT 10/01/2024 1:59 AM EDT MRSA PCR STAT 10/01/2024 12:22 AM EDT XR CHEST 1 VIEW STAT 10/01/2024 12:20 AM EDT CULTURE BLOOD STAT 09/30/2024 11:46 PM EDT GONSALVES URINE CULTURE TUBE STAT 09/30/2024 10:57 PM EDT URINALYSIS WITH REFLEX MICROSCOPIC AND CULTURE STAT 09/30/2024 10:57 PM EDT URINALYSIS WITH REFLEX MICROSCOPIC AND CULTURE STAT 09/30/2024 10:57 PM EDT LEGIONELLA ANTIGEN URINE, EIA STAT Add-on 09/30/2024 10:57 PM EDT CULTURE URINE STAT 09/30/2024 10:57 PM EDT ECG 12-LEAD STAT 09/30/2024 10:15 PM EDT RESPIRATORY VIRUS PANEL MOLECULAR STUDY STAT 09/30/2024 10:15 PM EDT CBC WITH AUTO DIFFERENTIAL STAT 09/30/2024 10:13 PM EDT LIPASE STAT 09/30/2024 10:13 PM EDT MAGNESIUM STAT 09/30/2024 10:13 PM EDT COMPREHENSIVE METABOLIC PANEL STAT 09/30/2024 10:13 PM EDT CBC AND DIFFERENTIAL STAT 09/30/2024 10:13 PM EDT LACTATE, WITH REFLEX STAT 09/30/2024 10:13 PM EDT CULTURE BLOOD STAT 09/30/2024 10:13 PM EDT BASIC METABOLIC PANEL Routine 09/27/2024 7:12 AM EDT Anemia, unspecified Hypothyroidism, unspecified Other seizures (CMS/HCC) COMPLETE BLOOD COUNT Routine 09/27/2024 7:12 AM EDT Anemia, unspecified Hypothyroidism, unspecified Other seizures (CMS/HCC) BASIC METABOLIC PANEL Routine 09/20/2024 7:49 AM EDT Anemia, unspecified Hypothyroidism, unspecified Other seizures (CMS/HCC) COMPLETE BLOOD COUNT Routine 09/20/2024 7:49 AM EDT Anemia, unspecified Hypothyroidism, unspecified Other seizures (CMS/HCC) THYROXINE TOTAL Routine 09/19/2024 9:04 AM EDT Other seizures (CMS/HCC) Hypothyroidism, unspecified COMPREHENSIVE METABOLIC PANEL Routine 09/19/2024 9:04 AM EDT Other seizures (CMS/HCC) Hypothyroidism, unspecified COMPLETE BLOOD COUNT Routine 09/19/2024 9:04 AM EDT Other seizures (CMS/HCC) Hypothyroidism, unspecified OXCARBAZEPINE LEVEL Routine 09/13/2024 8 :54 AM EDT Anemia, unspecified Hypothyroidism, unspecified Other seizures (CMS/HCC) THYROID STIMULATING HORMONE Routine 09/13/2024 8:54 AM EDT Anemia, unspecified Hypothyroidism, unspecified Other seizures (CMS/HCC) COMPREHENSIVE METABOLIC PANEL Routine 09/13/2024 8:54 AM EDT Anemia, unspecified Hypothyroidism, unspecified Other seizures (CMS/HCC) COMPLETE BLOOD COUNT Routine 09/13/2024 8:54 AM EDT Anemia, unspecified Hypothyroidism, unspecified Other seizures (CMS/HCC) from Last 3 Months Results * (ABNORMAL) Clostridium difficile toxin (10/26/2024 12:00 AM EDT) Pathologist [facility] [place] Clostridium difficile GDH Antigen Positive( A) Negative 10/26/2024 4:33 PM EDT [facility] LAB C difficile Toxins A+B, EIA Positive( AA) Negative [facility]: CRITICAL RESULT POSITIVE FOR TOXIN PRODUCING CLOSTRIDIOIDES DIFFICILE, NO ADDITIONAL TESTING IS NECESSARY. REPEAT SAMPLES SHOULD NOT BE SUBMITTED FOR TEST OF CURE. Stool Rectum structure / Unknown 10/26/2024 10/26/2024 3:36 PM EDT us Erickson Melton MD LAB MICROBIOLOGY - GENERAL ORDERABLES Final Result [facility] [address] [place] [address], [place] [phone] * (ABNORMAL) Complete blood count (10/25/2024 8:09 AM EDT) Only the most recent of6 resultswithin the time period is included. WBC 5.1 4.8 - 10.8 K/mcL LAB HEMETOLOGY METHOD 10/25/2024 10:40 AM [facility] RBC 3.70(L) 3.80 - 4.80 M/mcL LAB HEMETOLOGY METHOD 10/25/2024 10:40 AM [facility] Hemoglobin 12.7 11.5 - 16.0 g/dL LAB HEMETOLOGY METHOD 10/25/2024 10:40 AM [facility] Hematocrit 40.0 35.0 - 47.0 % LAB HEMETOLOGY METHOD 10/25/2024 10:40 AM [facility] MCV 107.2(H) 79.0 - 98.0 FL LAB HEMETOLOGY METHOD 10/25/2024 10:40 AM [facility] MCH 34.0(H) 27.0 - 32.0 pcg LAB HEMETOLOGY METHOD 10/25/2024 10:40 AM [facility] MCHC 31.8(L) 32.0 - 37.0 g/dL LAB HEMETOLOGY METHOD 10/25/2024 10:40 AM [facility] RDW 16.7(H) 11.0 - 15.0 % LAB HEMETOLOGY METHOD 10/25/2024 10:40 AM EDT [facility] Platelets 189 130 - 400 K/mcL LAB HEMETOLOGY METHOD 10/25/2024 10:40 AM EDT [facility] MPV 11.2(H) 7.0 - 11.0 FL LAB HEMETOLOGY METHOD 10/25/2024 10:40 AM EDT [facility] NRBC 0.0 <1.0 % LAB HEMETOLOGY METHOD 10/25/2024 10:40 AM EDT [facility] NRBC Absolute 0.00 <0.10 K/mcL LAB HEMETOLOGY METHOD 10/25/2024 10:40 AM EDT [facility] Blood Venous blood specimen / Unknown Venipuncture / Unknown 10/25/2024 8:09 AM EDT 10/25/2024 9:05 AM EDT us Erickson Melton MD LAB BLOOD ORDERABLES Final Result [facility] [address] [place] [address], [place] [phone] * (ABNORMAL) Basic metabolic panel (10/25/2024 8:09 AM EDT) Only the most recent of13 resultswithin the time period is included. Sodium 142 133 - 145 mmol/L LAB CHEMISTRY METHOD 10/25/2024 11:17 AM EDT [facility] Potassium 4.2 3.5 - 5.5 mmol/L LAB CHEMISTRY METHOD 10/25/2024 11:17 AM EDT [facility] Chloride 102 96 - 110 mmol/L LAB CHEMISTRY METHOD 10/25/2024 11:17 AM T [facility] CO2 31 21 - 32 mmol/L LAB CHEMISTRY METHOD 10/25/2024 11:17 AM [facility] Anion Gap 9 3 - 11 LAB CHEMISTRY METHOD 10/25/2024 11:17 AM [facility] Glucose 98 70 - 100 mg/dL LAB CHEMISTRY METHOD 10/25/2024 11:17 AM [facility] BUN 26(H) 5 - 25 mg/dL LAB CHEMISTRY METHOD 10/25/2024 11:17 AM [facility] Creatinine 0.71 0.50 - 1.10 mg/dL LAB CHEMISTRY METHOD 10/25/2024 11:17 AM [facility] eGFR 95 >=60 mL/min/1. 73m2 LAB CHEMISTRY METHOD 10/25/2024 11:17 AM [facility] Comment:Calculation based on the??Chronic Kidney Disease Epidemiology Collaboration (CKD-EPI) equation refit??without adjustment for race. BUN/Creatinine Ratio 36.6 LAB CHEMISTRY METHOD 10/25/2024 11:17 AM [facility] Calcium 8.8 8.5 - 10.5 mg/dL LAB CHEMISTRY METHOD 10/25/2024 11:17 AM [facility] Blood Venous blood specimen / Unknown Venipuncture / Unknown 10/25/2024 8:09 AM EDT 10/25/2024 9:05 AM EDT Erickson Melton MD LAB BLOOD ORDERABLES Final Result [facility] [address] [place] [address], * ECG-Annotated (10/11/2024) us Provider Onbase ECG ORDERABLES Final Result * (ABNORMAL) Manual differential (10/10/2024 6:46 AM EDT) Only the most recent of2 resultswithin the time period is included. Neutrophils % 70.0 % LAB HEMETOLOGY METHOD 10/10/2024 7:51 AM [facility] Lymphocytes % 22.0 % LAB HEMETOLOGY METHOD 10/10/2024 7:51 AM [facility] Monocytes % 5.0 % LAB HEMETOLOGY METHOD 10/10/2024 7:51 AM [facility] Eosinophils % 2.0 % LAB HEMETOLOGY METHOD 10/10/2024 7:51 AM [facility] Basophils % 1.0 % LAB HEMETOLOGY METHOD 10/10/2024 7:51 AM [facility] Metamyelocytes % 1.0(H) % LAB HEMETOLOGY METHOD 10/10/2024 7:51 AM [facility] Neutrophils Absolute Manual 2.94 1.50 - 7.00 K/mcL LAB HEMETOLOGY METHOD 10/10/2024 7:51 AM [facility] Lymphocytes Absolute 0.92(L) 1.00 - 5.00 K/mcL LAB HEMETOLOGY METHOD 10/10/2024 7:51 AM [facility] Monocytes Absolute Manual 0.21 0.20 - 1.00 K/mcL LAB HEMETOLOGY METHOD 10/10/2024 7:51 AM [facility] Eosinophils Absolute Manual 0.08 0.00 - 0.50 K/mcL LAB HEMETOLOGY METHOD 10/10/2024 7:51 AM [facility] Basophils Absolute Manual 0.04 0.00 - 0.20 K/mcL LAB HEMETOLOGY METHOD 10/10/2024 7:51 AM [facility] Metamyelocytes Absolute Manual 0.04(H) 0.00 - 0.00 K/mcL LAB HEMETOLOGY METHOD 10/10/2024 7:51 AM [facility] Rbc Morphology See comment( A) Consistent with indices, Normal for [place] LAB HEMETOLOGY METHOD 10/10/2024 7:51 AM EDT [facility] Comment:RBC: Morphology agre es with CBC Platelet Morphology - WAM See Note(A) Normal LAB HEMETOLOGY METHOD 10/10/2024 7:51 AM EDT [facility] Comment:PLT: Normal Blood Venous blood specimen / Unknown Venipuncture / Unknown 10/10/2024 6:46 AM EDT 10/10/2024 7:00 AM EDT Kunal Jade MD LAB BLOOD ORDERABLES Fi nal Result [facility] [address] [place] [address], [place] [phone] * (ABNORMAL) CBC auto differential (10/10/2024 6:46 AM EDT) Only the most recent of10 resultswithin the time period is included. WBC 4.2(L) 4.8 - 10.8 K/mcL LAB HEMETOLOGY METHOD 10/10/2024 7:51 AM [facility] RBC 3.20(L) 3.80 - 4.80 M/mcL LAB HEMETOLOGY METHOD 10/10/2024 7:51 AM [facility] Hemoglobin 10.7(L) 11.5 - 16.0 g/dL LAB HEMETOLOGY METHOD 10/10/2024 7:51 AM EDT [facility] Hematocrit 34.0(L) 35.0 - 47.0 % LAB HEMETOLOGY METHOD [facility]24 [facility] MCV 105.9(H) 79.0 - 98.0 FL LAB HEMETOLOGY METHOD 10/10/2024 7:51 AM [facility] MCH 33.3(H) 27.0 - 32.0 pcg LAB HEMETOLOGY METHOD 10/10/2024 7:51 AM EDT [facility] MCHC 31.5(L) 32.0 - 37.0 g/dL LAB HEMETOLOGY METHOD 10/10/2024 7:51 AM EDT [facility] RDW 16.5(H) 11.0 - 15.0 % LAB HEMETOLOGY METHOD 10/10/2024 7:51 AM EDT [facility] Platelets 233 130 - 400 K/mcL LAB HEMETOLOGY METHOD 10/10/2024 7:51 AM EDT [facility] MPV 10.5 7.0 - 11.0 FL LAB HEMETOLOGY METHOD 10/10/2024 7:51 AM EDT [facility] NRBC 0.0 <1.0 % LAB HEMETOLOGY METHOD 10/10/2024 7:51 AM EDT [facility] NRBC Absolute 0.00 <0.10 K/mcL LAB HEMETOLOGY METHOD 10/10/2024 7:51 AM EDT [facility] Blood Venous blood specimen / Unknown Venipuncture / Unknown 10/10/2024 6:46 AM EDT 10/10/2024 7:00 AM EDT Kunal Jade MD LAB BLOOD ORDERABLES Fi nal Result [facility] [address] [place] [address], * Phosphorus (10/10/2024 6:46 AM EDT) Only the most recent of4 resultswithin the time period is included. Phosphorus 3.5 2.5 - 4.5 mg/dL LAB CHEMISTRY METHOD 10/10/2024 7:38 AM EDT [facility] Blood Venous blood specimen / Unknown Venipuncture / Unknown 10/10/2024 6:46 AM EDT 10/10/2024 7:00 AM EDT Kunal Jade MD LAB BLOOD ORDERABLES Fi nal Result Performing Organization Address [facility]/ZIP Co de Phone Number [facility] [address] [place] [address], [place] [phone] * Magnesium (10/10/2024 6:46 AM EDT) Only the most recent of6 resultswithin the time period is included. Magnesium 1.9 1.9 - 2.6 mg/dL LAB CHEMISTRY METHOD 10/10/2024 7:38 AM EDT [facility] Blood Venous blood specimen / Unknown Venipuncture / Unknown 10/10/2024 6:46 AM EDT 10/10/2024 7:00 AM EDT Kunal Jade MD LAB BLOOD ORDERABLES Fi nal Result Performing Organization Address [facility] de Phone Number [facility] [address] [place] [address], [place] [phone] * TH AN ENDOTRACHEAL(NO CHARGE) (10/08/2024 2:30 PM EDT) Martin Batres CRNA - 10/08/2024 2:30 PM EDT Martin Faria CRNA ? 10/08/2024 ??2:35 PM General Information and Staff Patient location during procedure: OR Performed: resident/DENTAL SERVICES DIRECTOR/CAA Performed by: Martin Faria CRNA Authorized by: Denilson Sharpe MD ?? Intubation Airway not difficult Urgency: elective Final Airway Details Successful airway: ETT Cuffed: yes Successful intubation technique: video laryngoscopy Facilitating devices/methods: intubating stylet Endotracheal tube insertion site: oral Blade: Anjana Blade size: #3 ETT size (mm): 6.0 Cormack-Lehane Classification: grade I - full view of glottis Placement verified by: chest auscultation and capnometry Cuff volume (mL): 7 Measured from: lips ETT to lips (cm): 20 Number of attempts at approach: 1Final airway type: endotracheal airway Indications and Patient Condition Indications for airway management: anesthesia and airway protection Spontaneous ventilation: present Sedation level: Yes Preoxygenated: yes Soft Tissue Damage: No Dentition Unchanged: Yes Patient position: reverse Trendelenburg MILS not maintained throughout Mask difficulty assessment: 1 - vent by mask us Denilson Sharpe MD ANESTHESIA ORDERABLES Final Re sult * IR Replace G-Tube Perc w Fluoro (10/08/2024 1:39 PM EDT) Anatomical Region Laterality Modality N/A Interventional R adiology 10/08/2024 2:04 PM EDT Impressions 10/08/2024 2:11 PM EDT Gastrostomy tube replacement with fluoroscopic guidance. -------- FINAL REPORT -------- Dictated By: Shola Leija Dictated Date: 10/08/2024 14:04 ET Assigned Physician: Shola Leija Reviewed and Electronically Signed By: Shola Leija Signed Date: 10/08/2024 14:11 ET Workstation ID: [id number] Transcribed By: Self Edit Transcribed Date: 10/08/2024 14:04 ET Narrative 10/08/2024 2:11 PM EDT Indication: Dislodgment of gastrostomy tube Procedure: Written informed consent obtained from the patient's healthcare proxy. Anesthesia services were utilized for sedation during the procedure. Gastric tube site prepped and draped sterilely. 7 Venezuelan dilator placed into the tract and contrast injected demonstrating opacification of the tract and gastric lumen. Short Amplatz wire advanced into the gastric lumen. Tract dilated up to 20 Venezuelan and placement of a 18 Venezuelan gastric tube. 10 mL of sterile water injected into the retention balloon. Catheter retracted and then external fixation disc advanced to the skin surface. Subsequent injection of tube demonstrates adequate positioning within the gastric lumen with balloon well insufflated. Total patient dose (air kerma): 3 mGy Procedure Note Shola Leija MD - 10/08/2024 Indication: Dislodgment of gastrostomy tube Procedure: Written informed consent obtained from the patient's healthcareproxy. Anesthesia services were utilized for sedation during theprocedure. Gastric tube site prepped and draped sterilely. 7 Venezuelan dilator placedinto the tract and contrast injected demonstrating opacification of thetract and gastric lumen. Short Amplatz wire advanced into the gastriclumen. Tract dilated up to 20 Venezuelan and placement of a 18 Venezuelan gastrictube. 10 mL of sterile water injected into the retention balloon. Catheterretracted and then external fixation disc advanced to the skin surface.Subsequent injection of tube demonstrates adequate positioning within thegastric lumen with balloon well insufflated. Total patient dose (air kerma): 3 mGy IMPRESSION: Gastrostomy tube replacement with fluoroscopic guidance. -------- FINAL REPORT -------- Dictated By: Shola Leija Dictated Date: 10/08/2024 14:04 ET Assigned Physician: Shola Leija Reviewed and Electronically Signed By: Shola Leija Signed Date: 10/08/2024 14:11 ET Workstation ID: [id number] Transcribed By: Self Edit Transcribed Date: 10/08/2024 14:04 ET Carmita RENTERIA IMG IR PROCEDURES Final Result * (ABNORMAL) Oxcarbazepine level (10/08/2024 6:21 AM EDT) Only the most recent of2 resultswithin the time period is included. Oxcarbazepine 3.3(L) 10 - 35 ug/mL 10/10/2024 11:[address] [facility] Comment: If applicable, any drug confirmation testing reported here was developed and the performance characteristics determined by [facility]. This confirmation testing has not been cleared or approved by the FDA. The laboratory is regulated under CLIA as qualified to perform high-complexity testing. This test is used for patient testing purposes. It should not be regarded as investigational or for research. Test performed at [facility], [email or web address] , [place], [place] ??[address] ? [phone] Yessy Coulter MD, PhD - [employer] Blood Venous blood specimen / Unknown Venipuncture / Unknown 10/08/2024 6:21 AM EDT 10/08/2024 6:47 AM EDT Zelalem RENTERIA LAB BLOOD ORDERABLES Final Res ult [facility] [address] [place] [address] * SST tube (10/08/2024 6:14 AM EDT) Extra Tube Hold for add-ons. 10/08/2024 8:01 AM EDT [facility] Comment:Auto resulted. Blood Venous blood specimen / Unknown Venipuncture / Unknown 10/08/2024 6:14 AM EDT 10/08/2024 6:49 AM EDT Kunal Jade MD LAB BLOOD ORDERABLES Fi nal Result Performing Organization Address [facility] de Phone Number [facility] [address] [place] [address], [place] [phone] * Lavender tube (10/08/2024 6:14 AM EDT) Extra Tube Hold for add-ons. 10/08/2024 8:01 AM EDT [facility] Comment:Auto resulted. Blood Venous blood specimen / Unknown Venipuncture / Unknown 10/08/2024 6:14 AM EDT 10/08/2024 6:49 AM EDT us Kunal Jade MD LAB BLOOD ORDERABLES Fi nal Result Performing Organization Address [facility] Co de Phone Number [facility] [address] [place] [address], [place] [phone] * XR Abdomen 1 View (10/06/2024 3:37 PM EDT) Anatomical Region Laterality Modality Body Radiographic Caridad ging 10/06/2024 4:3 6 PM EDT Impressions 10/06/2024 4:37 PM EDT FINDINGS/IMPRESSION: Limited examination status post contrast injection to percutaneous enteric tube demonstrates opacification of the stomach. -------- FINAL REPORT -------- Dictated By: Sima Lawrence Dictated Date: 10/06/2024 16:36 ET Assigned Physician: Sima Lawrence Reviewed and Electronically Signed By: Sima Lawrence Signed Date: 10/06/2024 16:37 ET Workstation ID: [id number] Transcribed By: Self Edit Transcribed Date: 10/06/2024 16:36 ET Narrative 10/06/2024 4:37 PM EDT XR ABDOMEN 1 VIEW INDICATION: confirm G tube placement TECHNIQUE: XR ABDOMEN 1 VIEW COMPARISON: No priors available. Procedure Note Sima Lawrence MD - 10/06/2024 XR ABDOMEN 1 VIEW INDICATION: confirm G tube placement TECHNIQUE: XR ABDOMEN 1 VIEW COMPARISON: No priors available. IMPRESSION: FINDINGS/IMPRESSION: Limited examination status post contrast injection topercutaneous enteric tube demonstrates opacification of the stomach. -------- FINAL REPORT -------- Dictated By: Sima Lawrence Dictated Date: 10/06/2024 16:36 ET Assigned Physician: Sima Lawrence Reviewed and Electronically Signed By: Sima Lawrence Signed Date: 10/06/2024 16:37 ET Workstation ID: [id number] Transcribed By: Self Edit Transcribed Date: 10/06/2024 16:36 ET Anna RENTERIA IMG XR PROCEDURES Final Result * Urinalysis with reflex microscopic and culture (10/06/2024 1:13 PM EDT) Only the most recent of2 resultswithin the time period is included. Specific [place] Urine 1.018 1.003 - 1.030 LAB URINALYSIS - AUTOMATED METHOD 10/06/2024 1:56 PM EDT [facility] pH, Urine 7.5 5.0 - 8.0 pH LAB URINALYSIS - AUTOMATED METHOD 10/06/2024 1:56 PM EDT [facility] Leukocytes, Urine Negative Negative LAB URINALYSIS - AUTOMATED METHOD 10/06/2024 1:56 PM EDT [facility] Nitrite, Urine Negative Negative LAB URINALYSIS - AUTOMATED METHOD 10/06/2024 1:56 PM EDT [facility] Protein, Urine Negative <=Trace mg/dL LAB URINALYSIS - AUTOMATED METHOD 10/06/2024 1:56 PM EDT [facility] Glucose, Urine Negative Negative mg/dL LAB URINALYSIS - AUTOMATED METHOD 10/06/2024 1:56 PM EDT [facility] Ketones, Urine Negative Negative mg/dL LAB URINALYSIS - AUTOMATED METHOD 10/06/2024 1:56 PM EDT [facility] Urobilinogen, Urine 0.2 0.2 - 1.0 mg/dL LAB URINALYSIS - AUTOMATED METHOD 10/06/2024 1:56 PM EDT [facility] Bilirubin, Urine Negative Negative LAB URINALYSIS - AUTOMATED METHOD 10/06/2024 1:56 PM EDT [facility] Blood, Urine Negative Negative LAB URINALYSIS - AUTOMATED METHOD 10/06/2024 1:56 PM EDT [facility] Urine Urine specimen obtained by clean catch procedure / Unknown Non-blood Collection / Unknown 10/06/2024 1:13 PM EDT 10/06/2024 1:45 PM EDT us Anna RENTERIA LAB URINE ORDERABLES Final Resul t [facility] [address] [place] [address], * Gonsalves urine culture tube (10/06/2024 1:13 PM EDT) Only the most recent of2 resultswithin the time period is included. Extra Tube Hold for add-ons. 10/06/2024 3:02 PM EDT [facility] Comment:Auto resulted. Urine Urine specimen obtained by clean catch procedure / Unknown Non-blood Collection / Unknown 10/06/2024 1:13 PM EDT 10/06/2024 1:45 PM EDT Anna RENTERIA LAB URINE ORDERABLES Final Resul t Performing Organization Address City/[facility]/ZIP Co de Phone Number [facility] [address] [place] [address], [place] [phone] * MRSA molecular study (10/06/2024 2:10 AM EDT) Only the most recent of5 resultswithin the time period is included. [facility] MRSA Screen PCR Not Detected Not Detected LAB MICROBIOLOGY METHOD 10/06/2024 8:38 AM EDT [facility] Swab Both anterior nares / Unknown Non-blood Collection / Unknown 10/06/2024 2:10 AM EDT 10/06/2024 2:19 AM EDT Nadege RENTERIA LAB MICROBIOLOGY - GENE RAL ORDERABLES Final Result Performing Organization Address [facility] de Phone Number [facility] [address] [place] [address], [place] [phone] * Troponin I high sensitivity (10/05/2024 7:01 PM EDT) Only the most recent of2 resultswithin the time period is included. [facility] High Sensitivity Troponin I 52 <=54 ng/L LAB CHEMISTRY METHOD 10/05/2024 7:53 PM EDT [facility] Blood Venous blood specimen / Unknown Venipuncture / Unknown 10/05/2024 7:01 PM EDT 10/05/2024 7:25 PM EDT Narrative [facility] - 10/05/2024 7:53 PM EDT High levels of biotin in samples may falsely decrease hsTroponin values. ??Use caution when interpreting hsTroponin results in patients taking biotin who exhibit renal impairment (eGFR <60) or in patients taking more than 20 mg/day of biotin. Peewee [facility] LAB BLOOD ORDERABLES Final Re sult [facility] ([facility] [address] [place] [address], * XR Chest 1 View (10/05/2024 5:27 PM EDT) Only the most recent of2 resultswithin the time period is included. Anatomical Region Laterality Modality Body Radiographic Caridad ging 10/06/2024 11:1 3 AM EDT Impressions 10/06/2024 11:13 AM EDT FINDINGS/IMPRESSION: Increased pulmonary edema with small bilateral pleural effusions and adjacent atelectasis. ??Cardiac silhouette is stably enlarged. ??No pneumothorax. ??Bones are unchanged. -------- FINAL REPORT -------- Dictated By: ONUR TOPETE Dictated Date: 10/06/2024 11:13 ET Assigned Physician: ONUR TOPETE Reviewed and Electronically Signed By: ONUR TOPETE Signed Date: 10/06/2024 11:13 ET Workstation ID: [id number] Transcribed By: Self Edit Transcribed Date: 10/06/2024 11:13 ET Narrative 10/06/2024 11:13 AM EDT XR CHEST 1 VIEW INDICATION: ??Dyspnea TECHNIQUE: XR CHEST 1 VIEW COMPARISON: 10/01/2024 Procedure Note Onur Topete MD - 10/06/2024 XR CHEST 1 VIEW INDICATION: Dyspnea TECHNIQUE: XR CHEST 1 VIEW COMPARISON: 10/01/2024 IMPRESSION: FINDINGS/IMPRESSION: Increased pulmonary edema with small bilateralpleural effusions and adjacent atelectasis. Cardiac silhouette is stablyenlarged. No pneumothorax. Bones are unchanged. -------- FINAL REPORT -------- Dictated By: ONUR TOPETE Dictated Date: 10/06/2024 11:13 ET Assigned Physician: ONUR TOPETE Reviewed and Electronically Signed By: ONUR TOPETE Signed Date: 10/06/2024 11:13 ET Workstation ID: [id number] Transcribed By: Self Edit Transcribed Date: 10/06/2024 11:13 ET Peewee RENTERIA IMG XR PROCEDURES Final Resul t * CT Abdomen Pelvis w Contrast (10/05/2024 5:22 PM EDT) Only the most recent of2 resultswithin the time period is included. Anatomical Region Laterality Modality Body Computed Tomogra phy 10/05/2024 6:00 PM EDT Impressions 10/05/2024 6:00 PM EDT 1. Decompressed colon with apparent wall thickening could be due to decompression or due to pancolitis. 2. Mild free fluid in the abdomen and pelvis could be reactive. 3. Urinary bladder wall thickening, correlate with urinalysis for cystitis. 4. Interval worsening of bilateral basilar consolidation suspicious for pneumonia with new small bilateral pleural effusions and new small pericardial effusion. 5. Diffuse subcutaneous fat stranding/edema. 6. Additional findings as described. This document has been electronically signed by: Tawana Guzmán MD on 10/05/2024 18:00:27 Narrative 10/05/2024 6:00 PM EDT INDICATION: pain CT abdomen and pelvis with contrast Comparison: CT - CT ABD PEL W CONTRAST - 10/01/24 01:35 EDT Findings: Study limited and degraded by significant diffuse artifact. Cardiac enlargement and small pericardial effusion. Interval worsening of bilateral lower lobe consolidations/airspace opacities with new small pleural effusions. The liver is enlarged. 1.8 cm right hepatic lobe cyst. Spleen grossly within normal limits. Pancreas within normal limits. Gallbladder is contracted with possible small stones or mild sludge. Mild free fluid anterior to the liver and around the gallbladder. No biliary ductal dilatation. PEG tube in the stomach. Focal thickening in the region of the pylorus/1st part of the duodenum. The colon is decompressed with apparent wall thickening which could be due to decompression but colitis not excluded. Mild free fluid in lower abdomen and pelvis. No bowel obstruction, pneumoperitoneum, or pneumatosis. Appendix not visualized. Urinary bladder nearly empty with significant wall thickening up to 1.5 cm, correlate with urinalysis for cystitis. Uterus is absent. No aneurysm of abdominal aorta. No acute osseous process diffuse subcutaneous fat stranding/edema. Procedure Note Tawana Guzmán MD - 10/05/2024 INDICATION: pain CT abdomen and pelvis with contrast Comparison: CT - CT ABD PEL W CONTRAST - 10/01/24 01:35 EDT Findings: Study limited and degraded by significant diffuse artifact. Cardiac enlargement and small pericardial effusion. Interval worsening of bilateral lower lobe consolidations/airspace opacities with new small pleural effusions. The liver is enlarged. 1.8 cm right hepatic lobe cyst. Spleen grossly within normal limits. Pancreas within normal limits. Gallbladder is contracted with possible small stones or mild sludge.Mild free fluid anterior to the liver and around the gallbladder. No biliary ductal dilatation. PEG tube in the stomach. Focal thickening in the region of thepylorus/1st part of the duodenum. The colon is decompressed with apparent wall thickening which could bedue to decompression but colitis not excluded. Mild free fluid in lower abdomen and pelvis. No bowel obstruction, pneumoperitoneum, or pneumatosis. Appendix not visualized. Urinary bladder nearly empty with significant wall thickening up to 1.5 cm, correlate with urinalysis for cystitis. Uterus is absent. No aneurysm of abdominal aorta. No acute osseous process diffuse subcutaneous fat stranding/edema. IMPRESSION: 1. Decompressed colon with apparent wall thickening could be due to decompression or due to pancolitis. 2. Mild free fluid in the abdomen and pelvis could be reactive. 3. Urinary bladder wall thickening, correlate with urinalysis forcystitis. 4. Interval worsening of bilateral basilar consolidation suspicious for pneumonia with new small bilateral pleural effusions and new small pericardial effusion. 5. Diffuse subcutaneous fat stranding/edema. 6. Additional findings as described. This document has been electronically signed by: Tawana Guzmán MD on 10/05/2024 18:00:[address] PROCEDURES Final Resul t * ECG 12 lead (10/05/2024 4:32 PM EDT) Only the most recent of3 resultswithin the time period is included. Ventricular Rate ECG 62 BPM GEMUSE Atrial Rate 62 BPM GEMUSE P-R Interval 202 ms GEMUSE QRS Duration 110 ms GEMUSE Q-T Interval 404 ms GEMUSE QTc 410 ms GEMUSE P Wave [place] 16 degrees GEMUSE R [place] -33 degrees GEMUSE T [place] 2 degrees GEMUSE ECG Interpretation Normal sinus rhythm Left axis deviation Non-specific intra-ventricu lar conduction delay Possible Septal infarct (cited on or before 05-OCT-2024) Abnormal ECG When compared with ECG of 03-OCT-2024 08:43, Premature ventricular complexes are no longer Present Confirmed by DENILSON SULLIVAN ([id number]) on 10/05/2024 8:20:07 PM GEMUSE 10/05/2024 4:32 PM EDT 10/05/2024 8:20 PM EDT Peewee RENTERIA ECG ORDERABLES Final Result GEMUSE * Respiratory virus panel molecular study (10/05/2024 4:18 PM EDT) Only the most recent of2 resultswithin the time period is included. [facility] Adenovirus Detection by PCR Not Detected Not Detected LAB MICROBIOLOGY METHOD 10/05/2024 5:43 PM EDT [facility] Influenza A PCR Not Detected Not Detected LAB MICROBIOLOGY METHOD 10/05/2024 5:43 PM EDT [facility] Influenza B PCR Not Detected Not Detected LAB MICROBIOLOGY METHOD 10/05/2024 5:43 PM EDT [facility] Coronavirus 229E Not Detected Not Detected LAB MICROBIOLOGY METHOD 10/05/2024 5:43 PM EDT [facility] Coronavirus HKU1 Not Detected Not Detected LAB MICROBIOLOGY METHOD 10/05/2024 5:43 PM EDT [facility] Coronavirus OC43 Not Detected Not Detected LAB MICROBIOLOGY METHOD 10/05/2024 5:43 PM EDT [facility] Coronavirus NL63 Not Detected Not Detected LAB MICROBIOLOGY METHOD 10/05/2024 5:43 PM EDT [facility] Parainfluenza Virus 1 Not Detected Not Detected LAB MICROBIOLOGY METHOD 10/05/2024 5:43 PM EDT [facility] Parainfluenza Virus 2 Not Detected Not Detected LAB MICROBIOLOGY METHOD 10/05/2024 5:43 PM EDT [facility] Parainfluenza Virus 3 Not Detected Not Detected LAB MICROBIOLOGY METHOD 10/05/2024 5:43 PM EDT [facility] Parainfluenza Virus 4 Not Detected Not Detected LAB MICROBIOLOGY METHOD 10/05/2024 5:43 PM EDT [facility] RSV PCR Not Detected Not Detected LAB MICROBIOLOGY METHOD 10/05/2024 5:43 PM EDT [facility] Human Metapneumovirus A and B Not Detected Not Detected LAB MICROBIOLOGY METHOD 10/05/2024 5:43 PM EDT [facility] Rhinovirus/Entero virus Not Detected Not Detected LAB MICROBIOLOGY METHOD 10/05/2024 5:43 PM EDT [facility] Bordetella pertussis Not Detected Not Detected LAB MICROBIOLOGY METHOD 10/05/2024 5:43 PM EDT [facility] Bordetella parapertussis Not Detected Not Detected LAB MICROBIOLOGY METHOD 10/05/2024 5:43 PM EDT [facility] Mycoplasma pneumo by PCR Not Detected Not Detected LAB MICROBIOLOGY METHOD 10/05/2024 5:43 PM EDT [facility] Chlamydia pneumoniae Not Detected Not Detected LAB MICROBIOLOGY METHOD 10/05/2024 5:43 PM EDT [facility] SARS COV-2 Not Detected Not Detected LAB MICROBIOLOGY METHOD 10/05/2024 5:43 PM EDT [facility] Swab Both anterior nares / Unknown Non-blood Collection / Unknown 10/05/2024 4:18 PM EDT 10/05/2024 4:39 PM EDT Narrative [facility] - 10/05/2024 5:43 PM EDT Testing was performed using the [employer] Respiratory Pathogen PCR Assay. All results must be correlated with the clinical findings. Results should not be used as the sole basis for diagnosis. False Negative results may occur from the presence of sequence variants in the region targeted by the assay or the presence of inhibitors. Results may be affected by concurrent antiviral/antimicrobial therapy or levels of organisms that are below the limit of detection. Peewee R[facility] LAB MICROBIOLOGY - GENERAL OR DERABLES Final Result Performing Organization Address [facility]/ZIP Co de Phone Number [facility] [address] [place] [address], * (ABNORMAL) POCT Glucose, blood (10/04/2024 7:26 AM EDT) Only the most recent of10 resultswithin the time period is included. Glucose POCT 123(H) 70 - 100 mg/dL 10/04/2024 7:27 AM EDT [facility] Blood Capillary blood specimen / Unknown 10/04/2024 7:26 AM EDT 10/04/2024 7:28 AM EDT Rolanda Granados MD LAB POINT OF CARE TE ST DOCKED DEVICE UNSOLICITED RESULTS Final Result Performing Organization Address [facility]/ZIP Co de Phone Number [facility] [address] [place] [address], * Lactate (10/01/2024 7:00 AM EDT) Lactate 2.0 0.4 - 2.0 mmol/L LAB CHEMISTRY METHOD 10/01/2024 8:34 AM EDT [facility] Blood Venous blood specimen / Unknown Venipuncture / Unknown 10/01/2024 7:00 AM EDT 10/01/2024 7:38 AM EDT Zelalem RENTERIA LAB BLOOD ORDERABLES Final Res ult Performing Organization Address City/[facility]/ZIP Co de Phone Number [facility] [address] [place] [address], [place] [phone] * (ABNORMAL) Lactate, with reflex (10/01/2024 2:10 AM EDT) Only the most recent of2 resultswithin the time period is included. LACTIC ACID 2.2(H) 0.4 - 2.0 mmol/L LAB CHEMISTRY METHOD 10/01/2024 2:52 AM EDT [facility] Blood Venous blood specimen / Unknown Venipuncture / Unknown 10/01/2024 2:10 AM EDT 10/01/2024 2:26 AM EDT Madelyn Woodard MD LAB BLOOD ORDERABLES Fin al Result Performing Organization Address [facility]/ZIP Co de Phone Number [facility] [address] [place] [address], [place] [phone] * CT Chest wo Contrast (10/01/2024 1:59 AM EDT) Anatomical Region Laterality Modality Body Computed Tomogra phy 10/01/2024 2:26 AM EDT Impressions 10/01/2024 2:26 AM EDT Impression: Prominent coarse bilateral lower lobe infiltrates with air bronchograms and bronchial wall thickening. Moderate cardiomegaly. This document has been electronically signed by: Kitty Kramer MD on 10/01/2024 02:26:59 Narrative 10/01/2024 2:26 AM EDT INDICATION: Respiratory failure Exam: CT chest without IV contrast. Comparison: None Findings: Lungs: Prominent coarse bilateral lower lobe infiltrates with air bronchograms and bronchial wall thickening. No mass. No edema. Mediastinum: Moderate cardiomegaly. Dense mitral valve annular calcification. Trace pericardial effusion. No thoracic aortic aneurysm. Pleura: No pneumothorax or significant effusion. Lymphatic: No adenopathy. Upper abdomen: Refer to CT AP report. Soft tissues: No acute pathology. Bones: No acute pathology. Degenerative changes. Procedure Note Kitty Kramer MD - 10/01/2024 INDICATION: Respiratory failure Exam: CT chest without IV contrast. Comparison: None Findings: Lungs: Prominent coarse bilateral lower lobe infiltrates with air bronchograms and bronchial wall thickening. No mass. No edema. Mediastinum: Moderate cardiomegaly. Dense mitral valve annular calcification. Trace pericardial effusion. No thoracic aortic aneurysm. Pleura: No pneumothorax or significant effusion. Lymphatic: No adenopathy. Upper abdomen: Refer to CT AP report. Soft tissues: No acute pathology. Bones: No acute pathology. Degenerative changes. IMPRESSION: Impression: Prominent coarse bilateral lower lobe infiltrates with air bronchograms and bronchial wall thickening. Moderate cardiomegaly. This document has been electronically signed by: Kitty Kramer MD on 10/01/2024 02:26:[address] PROCEDURES Ness l Result * Culture blood (09/30/2024 11:46 PM EDT) Only the most recent of2 resultswithin the time period is included. Culture, Blood No growth at 5 days 10/06/2024 3:09 AM EDT [facility] Blood Venous blood specimen / Unknown Venipuncture / Unknown 09/30/2024 11:46 PM EDT 09/30/2024 11:51 PM EDT Madelyn Woodard MD LAB MICROBIOLOGY - GENER AL ORDERABLES Final Result [facility] [address] [place] [address], * Legionella antigen urine, EIA (09/30/2024 10:57 PM EDT) Legionella Antigen, Ur Negative Negative 10/01/2024 9:25 AM EDT [facility] Urine Urine specimen obtained by clean catch procedure / Unknown Non-blood Collection / Unknown 09/30/2024 10:57 PM EDT 09/30/2024 11:40 PM EDT Narrative [facility] - 10/01/2024 9:25 AM EDT Negative for Legionella pneumophilia serogroup 1 antigen. This presumptive result suggests no current or recent infection due to L. pneumophilia serogroup 1. Culture is recommended if Legionella infection is till suspected, as other serogroups and species of Legionella are not detected by this test. Zelalem RENTERIA LAB URINE ORDERABLES Final Res ult Performing Organization Address City/[facility]/ZIP Co de Phone Number [facility] [address] [place] [address], [place] [phone] * Culture urine (09/30/2024 10:57 PM EDT) Culture, Urine No growth 10/02/2024 11:03 AM EDT [facility] Urine Urine specimen obtained by clean catch procedure / Unknown Non-blood Collection / Unknown 09/30/2024 10:57 PM EDT 09/30/2024 11:40 PM EDT Carline RENTERIA LAB MICROBIOLOGY - GEN ERAL ORDERABLES Final Result [facility] [address] [place] [address], [place] [phone] * Lipase (09/30/2024 10:13 PM EDT) Lipase 22 13 - 75 unit/L LAB CHEMISTRY METHOD 09/30/2024 10:50 PM EDT [facility] Blood Venous blood specimen / Unknown Venipuncture / Unknown 09/30/2024 10:13 PM EDT 09/30/2024 10:24 PM EDT Madelyn Woodard MD LAB BLOOD ORDERABLES Fin al Result [facility] [address] [place] [address], [place] [phone] * (ABNORMAL) Comprehensive metabolic panel (09/30/2024 10:13 PM EDT) Only the most recent of3 resultswithin the time period is included. Sodium 140 133 - 145 mmol/L LAB CHEMISTRY METHOD 09/30/2024 10:50 PM EDT [facility] Potassium 4.4 3.5 - 5.5 mmol/L LAB CHEMISTRY METHOD 09/30/2024 10:50 PM EDT [facility] Chloride 101 96 - 110 mmol/L LAB CHEMISTRY METHOD 09/30/2024 10:50 PM [facility] CO2 35(H) 21 - 32 mmol/L LAB CHEMISTRY METHOD 09/30/2024 10:50 PM EDT [facility] Anion Gap 4 3 - 11 LAB CHEMISTRY METHOD 09/30/2024 10:50 PM EDT [facility] Glucose 107(H) 70 - 100 mg/dL LAB CHEMISTRY METHOD 09/30/2024 10:50 PM [facility] BUN 19 5 - 25 mg/dL LAB CHEMISTRY METHOD 09/30/2024 10:50 PM EDT [facility] Creatinine 0.85 0.50 - 1.10 mg/dL LAB CHEMISTRY METHOD 09/30/2024 10:50 PM EDT [facility] eGFR 77 >=60 mL/min/1. 73m2 LAB CHEMISTRY METHOD 09/30/2024 10:50 PM EDT [facility] Comment:Calculation based on the??Chronic Kidney Disease Epidemiology Collaboration (CKD-EPI) equation refit??without adjustment for race. BUN/Creatinine Ratio 22.4 LAB CHEMISTRY METHOD 09/30/2024 10:50 PM EDT [facility] Calcium 8.9 8.5 - 10.5 mg/dL LAB CHEMISTRY METHOD 09/30/2024 10:50 PM EDT [facility] AST (SGOT) 22 10 - 42 unit/L LAB CHEMISTRY METHOD 09/30/2024 10:50 PM EDT [facility] ALT (SGPT) 33 10 - 60 unit/L LAB CHEMISTRY METHOD 09/30/2024 10:50 PM EDT [facility] Alkaline Phosphatase 125(H) 42 - 121 unit/L LAB CHEMISTRY METHOD 09/30/2024 10:50 PM EDT [facility] Total Protein 6.9 6.0 - 8.0 g/dL LAB CHEMISTRY METHOD 09/30/2024 10:50 PM EDT [facility] Albumin 2.9(L) 3.2 - 5.0 g/dL LAB CHEMISTRY METHOD 09/30/2024 10:50 PM EDT [facility] Total Bilirubin 0.3 0.0 - 1.4 mg/dL LAB CHEMISTRY METHOD 09/30/2024 10:50 PM EDT [facility] Blood Venous blood specimen / Unknown Venipuncture / Unknown 09/30/2024 10:13 PM EDT 09/30/2024 10:24 PM EDT us Madelyn Woodard MD LAB BLOOD ORDERABLES Fin al Result [facility] [address] [place] [address], * (ABNORMAL) Thyroxine total (09/19/2024 9:04 AM EDT) T4, Total 2.8(L) 4.5 - 10.9 mcg/dL LAB CHEMISTRY METHOD 09/19/2024 1:40 PM EDT [facility] Blood Venous blood specimen / Unknown Venipuncture / Unknown 09/19/2024 9:04 AM EDT 09/19/2024 11:18 AM EDT us Erickson Melton MD LAB BLOOD ORDERABLES Final Result Performing Organization Address [facility]/ZIP Co de Phone Number [facility] [address] [place] [address], [place] [phone] * (ABNORMAL) Thyroid stimulating hormone (09/13/2024 8:54 AM EDT) TSH 7.10(H) 0.40 - 4.00 mcIU/mL LAB CHEMISTRY METHOD 09/13/2024 1:18 PM EDT [facility] Blood Venous blood specimen / Unknown Venipuncture / Unknown 09/13/2024 8:54 AM EDT 09/13/2024 10:34 AM EDT us Erickson Melton MD LAB BLOOD ORDERABLES Final Result Performing Organization Address [facility]/RUST de Phone Number [facility] [address] [place] [address], [place] [phone] from Last 3 Months Additional Health Concerns Infection Onset Date Last Indicated C. difficile Comment:Tested (+) at SNF; started on PO ABT 09/29/24 NL 09/29/2024 10/26/2024 Insurance MEDICARE [place]ICA[place] - [place] Advance Directives Documents on File Type Date Recorded Patient Government Relations Analyst Expl anation Advance Directives and Livin g Will 10/06/2024 9:25 AM [facility]OLST * Full Code - Default (Latest Code Status on File) Date Activated Date Inactivated Comments 10/05/2024 9:03 PM 10/10/2024 7:25 PM This is order is used when code status has not been discussed with the patient, or code status is otherwise unknown/unconfirmed To update the patient's code status, place a code status order. Do not modify or discontinue any currently active code status orders. * Full Code - Default Date Activated Date Inactivated Comments 10/01/2024 4:35 AM 10/04/2024 4:46 PM This is order is used when code status has not been discussed with the patient, or code status is otherwise unknown/unconfirmed To update the patient's code status, place a code status order. Do not modify or discontinue any currently active code status orders. Healthcare Agents on File Name Relationship Healthcare Agent [facility] Communication [facility] Care Agent Care Teams Senior System Operator Relationship Specialty Start Date End Date Erickson Melton MD [address] [place] [id number] PCP - General Internal Medicine 09/13/24
--- OUTSIDE RECORDS SUMMARY | 2024-10-26 18:37 | XMS_ITS | Encounter Summary ---
Author Organization [facility] Address [address] [place] [address] Care Team Providers Care Lubrication Equipment Servicer Name Role Phone Erickson Melton MD Primary Care Provider [phone]- [phone] Encounter Details Date Type Department Care Team (Late st Contact Info) Description 09/19/2024 Lab Requisition [facility] - Main Lab [address] [facility] [place] [address] Erickson Melton MD [address] [place] [id number] Anemia, unspecified; Hypothyroidism, unspecified; Other seizures (CMS/HCC [...] Associated Diagnosis Comments COMPLETE BLOOD COUNT Routine 09/20/2024 7:49 AM EDT Anemia, unspecified Hypothyroidism, unspecified Other seizures (CMS/HCC) BASIC METABOLIC PANEL Routine 09/20/2024 7:49 AM EDT Anemia, unspecified Hypothyroidism, unspecified Other seizures (CMS/HCC) documented in this encounter Results * (ABNORMAL) Basic metabolic panel (09/20/2024 7:49 AM EDT) Sodium 139 133 - 145 mmol/L LAB CHEMISTRY METHOD 09/20/2024 11:27 AM [facility] Potassium 4.0 3.5 - 5.5 mmol/L LAB CHEMISTRY METHOD 09/20/2024 11:27 AM [facility] Chloride 97 96 - 110 mmol/L LAB CHEMISTRY METHOD 09/20/2024 11:27 AM [facility] CO2 36(H) 21 - 32 mmol/L LAB CHEMISTRY METHOD 09/20/2024 11:27 AM [facility] Anion Gap 6 3 - 11 LAB CHEMISTRY METHOD 09/20/2024 11:27 AM [facility] Glucose 121(H) 70 - 100 mg/dL LAB CHEMISTRY METHOD 09/20/2024 11:27 AM [facility] BUN 27(H) 5 - 25 mg/dL LAB CHEMISTRY METHOD 09/20/2024 11:27 AM [facility] Creatinine 0.71 0.50 - 1.10 mg/dL LAB CHEMISTRY METHOD 09/20/2024 11:27 AM [facility] eGFR 95 >=60 mL/min/1. 73m2 LAB CHEMISTRY METHOD 09/20/2024 11:27 AM [facility] Comment:Calculation based on the??Chronic Kidney Disease Epidemiology Collaboration (CKD-EPI) equation refit??without adjustment for race. BUN/Creatinine Ratio 38.0 LAB CHEMISTRY METHOD 09/20/2024 11:27 AM [facility] Calcium 8.4(L) 8.5 - 10.5 mg/dL LAB CHEMISTRY METHOD 09/20/2024 11:27 AM [facility] Blood Venous blood specimen / Unknown Venipuncture / Unknown 09/20/2024 7:49 AM EDT 09/20/2024 10:04 AM EDT us Erickson Melton MD LAB BLOOD ORDERABLES Final Result [facility] [address] [place] [address], [place] [phone] * (ABNORMAL) Complete blood count (09/20/2024 7:49 AM EDT) WBC 6.1 4.8 - 10.8 K/mcL LAB HEMETOLOGY METHOD 09/20/2024 10:34 AM EDT [facility] RBC 3.30(L) 3.80 - 4.80 M/mcL LAB HEMETOLOGY METHOD 09/20/2024 10:34 AM EDT [facility] Hemoglobin 11.1(L) 11.5 - 16.0 g/dL LAB HEMETOLOGY METHOD 09/20/2024 10:34 AM EDT [facility] Hematocrit 36.2 35.0 - 47.0 % LAB HEMETOLOGY METHOD 09/20/2024 10:34 AM EDT [facility] MCV 109.7(H) 79.0 - 98.0 FL LAB HEMETOLOGY METHOD [facility] MCH 33.6(H) 27.0 - 32.0 pcg LAB HEMETOLOGY METHOD 09/20/2024 10:34 AM EDT [facility] MCHC 30.7(L) 32.0 - 37.0 g/dL LAB HEMETOLOGY METHOD 09/20/2024 10:34 AM EDT [facility] RDW 14.6 11.0 - 15.0 % LAB HEMETOLOGY METHOD [facility]20[facility]24 [facility] Platelets 269 130 - 400 K/mcL LAB HEMETOLOGY METHOD 09/20/2024 10:34 AM EDT [facility] MPV 11.5(H) 7.0 - 11.0 FL LAB HEMETOLOGY METHOD 09/20/2024 10:34 AM EDT [facility] NRBC 0.0 <1.0 % LAB HEMETOLOG METHOD 09/20/2024 10:34 AM EDT [facility] NRBC Absolute 0.00 <0.10 K/mcL LAB HEMETOLOGY METHOD 09/20/2024 10:34 AM EDT [facility] Blood Venous blood specimen / Unknown Venipuncture / Unknown 09/20/2024 7:49 AM EDT 09/20/2024 10:04 AM EDT Erickson Melton MD LAB BLOOD ORDERABLES Final Result [facility] [address] [place] [address], documented in this encounter Visit Diagnoses Diagnosis [...] documented as of this encounter Care Teams Lubrication Equipment Servicer Relationship Specialty Start Date End Date Erickson Melton MD [address] [place] [address] PCP - General Internal Medicine 09/13/24 documented as of this encounter
--- OUTSIDE RECORDS SUMMARY | 2024-10-26 18:37 | XMS_ITS | Encounter Summary ---
Author Organization [facility] Address [address] [place] [address] Care Team Providers Care Chick Grader Name Role Phone Erickson Melton MD Primary Care Provider +1- [phone] Encounter Details Date Type Department Care Team (Late st Contact Info) Description 09/13/2024 Lab Requisition [facility] - Main Lab [address] [facility] [place] [address] Erickson Melton MD [address] [place] [address] Anemia, unspecified; Hypothyroidism, unspecified; Other seizures (CMS/HCC [...] Procedure Name Priority Date/Time Associated Diagnosis Comments OXCARBAZEPINE LEVEL Routine 09/13/2024 8 :54 AM [...] (CMS/HCC) documented in this encounter Results * Oxcarbazepine level (09/13/2024 8:54 AM EDT) Oxcarbazepine 24.4 10 - 35 ug/mL 09/16/2024 12:30 PM EDT [facility] Comment: If applicable, any drug confirmation testing reported here was developed and the performance characteristics determined by [facility]. This confirmation testing has not been cleared or approved by the FDA. The laboratory is regulated under CLIA as qualified to perform high-complexity testing. This test is used for patient testing purposes. It should not be regarded as investigational or for research. Test performed at [facility], [address] , [place], [place] ??[address] ? [phone] Yessy Coulter MD, PhD - Aircraft Powerplant Repairer Blood Venous blood specimen / Unknown Venipuncture / Unknown 09/13/2024 8:54 AM EDT 09/13/2024 10:34 AM EDT Erickson Melton MD LAB BLOOD ORDERABLES Final Result [facility] [address] [place] [address] * (ABNORMAL) Thyroid stimulating hormone (09/13/2024 8:54 AM EDT) TSH 7.10(H) 0.40 - 4.00 mcIU/mL LAB CHEMISTRY METHOD 09/13/2024 1:18 PM EDT [facility] Blood Venous blood specimen / Unknown Venipuncture / Unknown 09/13/2024 8:54 AM EDT 09/13/2024 10:34 AM EDT us Erickson Melton MD LAB BLOOD ORDERABLES Final Result [facility] [address] [place] [address], * (ABNORMAL) Comprehensive metabolic panel (09/13/2024 8:54 AM EDT) Sodium 142 133 - 145 mmol/L LAB CHEMISTRY METHOD 09/13/2024 1:41 PM [facility] Potassium 4.3 3.5 - 5.5 mmol/L LAB CHEMISTRY METHOD 09/13/2024 1:41 PM [facility] Chloride 99 96 - 110 mmol/L LAB CHEMISTRY METHOD 09/13/2024 1:41 PM [facility] CO2 36(H) 21 - 32 mmol/L LAB CHEMISTRY METHOD 09/13/2024 1:41 PM [facility] Comment:Results verified by repeat testing Anion Gap 7 3 - 11 LAB CHEMISTRY METHOD 09/13/2024 1:41 PM [facility] Glucose 105(H) 70 - 100 mg/dL LAB CHEMISTRY METHOD 09/13/2024 1:41 PM [facility] BUN 23 5 - 25 mg/dL LAB CHEMISTRY METHOD 09/13/2024 1:41 PM [facility] Creatinine 0.77 0.50 - 1.10 mg/dL LAB CHEMISTRY METHOD 09/13/2024 1:41 PM [facility] eGFR 86 >=60 mL/min/1. 73m2 LAB CHEMISTRY METHOD 09/13/2024 1:41 PM [facility] Comment:Calculation based on the??Chronic Kidney Disease Epidemiology Collaboration (CKD-EPI) equation refit??without adjustment for race. BUN/Creatinine Ratio 29.9 LAB CHEMISTRY METHOD 09/13/2024 1:41 PM [facility] Calcium 8.9 8.5 - 10.5 mg/dL LAB CHEMISTRY METHOD 09/13/2024 1:41 PM EDT [facility] AST (SGOT) 25 10 - 42 unit/L LAB CHEMISTRY METHOD 09/13/2024 1:41 PM T [facility] ALT (SGPT) 24 10 - 60 unit/L LAB CHEMISTRY METHOD 09/13/2024 1:41 PM T [facility] Alkaline Phosphatase 118 42 - 121 unit/L LAB CHEMISTRY METHOD 09/13/2024 1:41 PM T [facility] Total Protein 6.9 6.0 - 8.0 g/dL LAB CHEMISTRY METHOD 09/13/2024 1:41 PM [facility] Albumin 2.8(L) 3.2 - 5.0 g/dL LAB CHEMISTRY METHOD 09/13/2024 1:41 PM [facility] Total Bilirubin 0.2 0.0 - 1.4 mg/dL LAB CHEMISTRY METHOD 09/13/2024 1:41 PM [facility] Blood Venous blood specimen / Unknown Venipuncture / Unknown 09/13/2024 8:54 AM EDT 09/13/2024 10:34 AM EDT Erickson Melton MD LAB BLOOD ORDERABLES Final Result [facility] [address] [place] [address], * (ABNORMAL) Complete blood count (09/13/2024 8:54 AM EDT) WBC 7.6 4.8 - 10.8 K/mcL LAB HEMETOLOGY METHOD 09/13/2024 12:06 PM [facility] RBC 3.60(L) 3.80 - 4.80 M/mcL LAB HEMETOLOGY METHOD 09/13/2024 12:06 PM [facility] Hemoglobin 12.1 11.5 - 16.0 g/dL LAB HEMETOLOGY METHOD 09/13/2024 12:06 PM [facility] Hematocrit 38.2 35.0 - 47.0 % LAB HEMETOLOGY METHOD 09/13/2024 12:06 PM [facility] MCV 107.0(H) 79.0 - 98.0 FL LAB HEMETOLOGY METHOD 09/13/2024 12:06 PM [facility] MCH 33.9(H) 27.0 - 32.0 pcg LAB HEMETOLOGY METHOD 09/13/2024 12:06 PM [facility] MCHC 31.7(L) 32.0 - 37.0 g/dL LAB HEMETOLOGY METHOD 09/13/2024 12:06 PM [facility] RDW 14.0 11.0 - 15.0 % LAB HEMETOLOGY METHOD 09/13/2024 12:06 PM [facility] Platelets 327 130 - 400 K/mcL LAB HEMETOLOGY METHOD 09/13/2024 12:06 PM [facility] MPV 11.0 7.0 - 11.0 FL LAB HEMETOLOGY METHOD 09/13/2024 12:06 PM [facility] NRBC 0.0 <1.0 % LAB HEMETOLOGY METHOD 09/13/2024 12:06 PM [facility] NRBC Absolute 0.00 <0.10 K/mcL LAB HEMETOLOGY METHOD 09/13/2024 12:06 PM [facility] Blood Venous blood specimen / Unknown Venipuncture / Unknown 09/13/2024 8:54 AM EDT 09/13/2024 10:34 AM EDT us Erickson Melton MD LAB BLOOD ORDERABLES Final Result [facility] [place] [facility] [address] [place] [address], documented in this encounter Visit Diagnoses Diagnosis [...] documented as of this encounter Care Teams Chick Grader Relationship Specialty Start Date End Date Erickson Melton MD [address] [place] [address] PCP - General Internal Medicine 09/13/24 documented as of this encounter
--- OUTSIDE RECORDS SUMMARY | 2024-10-26 18:37 | XMS_ITS | Encounter Summary ---
Author Organization [facility] Address [address] [place] [address] Care Team Providers Care Final Cleaner Name Role Phone Erickson Melton MD Primary Care Provider +1- [phone] Encounter Details Date Type Department Care Team (Late st Contact Info) Description 10/03/2024 Lab Requisition [facility] - Main Lab [address] [facility] [place] [address] Erickson Melton MD [address] [place] [address] Anemia, unspecified; Hypothyroidism, unspecified; Other seizures (CMS/HCC [...] care for your loved ones. For example, early childhood associate or elderly care for an older adult? [...] Safety Answer Date Record ed Physical Abuse 10/07/2024 Verbal Abuse 10/07/2024 Comments Unknown Sex and Gender Information Value Date Recorded Sex Assigned at Female 09/30/2024 10:42 PM EDT Legal Sex Female 5:46 PM EST Gender Identity Female 09/30/2024 10:42 PM EDT Sexual Orientation Straight 09/30/2024 10 :42 PM EDT documented as of this encounter Plan of Treatment Not on file documented as of this encounter Visit Diagnoses Diagnosis Anemia, unspecified Hypothyroidism, unspecified Other seizures (CMS/HCC V24, CMS/HCC V28) documented in this encounter Additional Health Concerns Infection Onset Date Last Indicated Resolved Time C. difficile Comment:Tested (+) at SNF; started on PO ABT 09/29/24 NL 09/29/2024 10/26/2024 Respiratory Rule-Out 10/05/2024 10/05/2024 025 5:43 PM EDT COVID-19 Rule-Out 10/05/2024 10/05/2024 10/05/2024 5:43 PM EDT documented as of this encounter Care Teams Final Cleaner Relationship Specialty Start Date End Date Erickson Melton MD [address] [place] [address] PCP - General Internal Medicine 09/13/24 documented as of this encounter
[2024-10-26 19:03] VITALS: PULSE 77; O2SAT 97
--- NOTE | 2024-10-26 19:03 | PC.NURSE ---
this rn assumed care of pt, pt taken off o2 at this time,sating 97% on room air. pt unable to voice complaints, pt appears comfortable in stretcher, sister remains at bedside.
[2024-10-26] MEDS: diazePAM 10 MG/2 ML CARTRIDGE 2.5 MG IM (19:54)
--- NOTE | 2024-10-26 20:07 | PC.NURSE ---
pt unable to lay still during ct. aware. pt medicated per mar
[2024-10-26 22:09] VITALS: BP 120/65; PULSE 63; RESP 16; O2SAT 97
== END 2024-10-26 23:43 | disposition home or self-care (01) ==
PROVIDERS: Physician Assistant; Emergency Provider Emergency Medicine Emergency Medical Services
DX: R56.9 Unspecified convulsions (principal); R06.02 Shortness of breath; Q90.9 Down syndrome, unspecified; E06.3 Autoimmune thyroiditis; E78.00 Pure hypercholesterolemia, unspecified; Z79.899 Other long term (current) drug therapy; Z03.818 Encounter for observation for suspected exposure to other biological agents ruled out
CPT/HCPCS: 0241U; 36415; 70450; 71045; 71250; 80048; 80076; 80307; 81001; 83605; 83735; 84443; 85025; 87086; 93005; 96372; 99284; J3360

== ENCOUNTER → 2024-10-26 16:15 | Outpatient (BNV) | payer MEDICARE, MEDICAID, SELFPAY | PROVIDERS: Emergency Provider Emergency Medicine Emergency Medical Services; Visit Provider Radiology Diagnostic Radiology | DX: R56.9 Unspecified convulsions (principal) | CPT/HCPCS: 70450; 71250 ==

== ENCOUNTER → 2024-10-26 16:16 | Outpatient (BNV) | payer MEDICARE, MEDICAID, SELFPAY | PROVIDERS: Emergency Provider Emergency Medicine Emergency Medical Services; Visit Provider Internal Medicine | DX: I44.7 Left bundle-branch block, unspecified (principal) | CPT/HCPCS: 93010 ==

== ENCOUNTER 2024-11-07 11:49 | Emergency (ER) | payer MEDICARE, MEDICAID, SELFPAY ==
--- NOTE | ~2024-11-07 | XR_ITS ---
EXAMINATION: XR ABDOMEN KUB CLINICAL INDICATION: Proving G-tube is in place COMPARISON: 09/23/2024. TECHNIQUE: AP view of the abdomen. FINDINGS: G-tube is in place, which has been injected with a small amount water-soluble contrast material. Contrast opacifies the stomach, proving appropriate positioning of the G-tube balloon. There is no extravasation of contrast. Bowel gas pattern is normal/nonspecific. There is no focally dilated loop. There is no indirect evidence of free air. No significant stool burden seen. Mild linear opacities in both lung bases medially, similar to prior exams and likely chronic. No effusions. The heart appears mildly enlarged. No suspicious bony abnormalities. There is a mild to moderate right convex lumbar scoliosis with a rotatory component. XR/XR KUB IMPRESSION: 1 no acute findings in the abdomen. 2. G-tube is appropriately situated within the gastric body. No extravasation of contrast. Electronically signed by: Logan Singh MD 11/07/2024 01:01 PM EDT
[2024-11-07 11:59] VITALS: BP 110/86; PULSE 94; O2SAT 99
[2024-11-07 12:25] VITALS: BMI 17.5
--- NOTE | 2024-11-07 12:27 | ED_ITS ---
HPI - Abdominal Pain General Chief Complaint: General Medical Stated Complaint: WEAK,GI BLOCK PER EMS Time Seen by Provider: 11/07/24 11:53 History of Present Illness HPI narrative: Patient is a 64-year-old female G-tube got clogged. Has a history of Down syndrome. Presented to the ED for help. The G-tube was placed in August it has fell out multiple times in the past. Related Data Home Medications ?Medication ?Instructions ?Recorded ?Confirmed cetyl and stearate 1 appl topical MOTH 12/11/23 09/28/24 alcohol-propylen glycol-sls topical cream (Cetaphil topical cream) acetaminophen 650 mg/20.3 mL oral 640 mg feeding tube Q4H PRN fever 09/28/24 09/28/24 solution or pain bisacodyl 10 mg rectal suppository 10 mg OK DAILY PRN Constipation 09/28/24 09/28/24 ipratropium 0.5 mg-albuterol 3 mg 3 ml inhalation Q6H PRN Dyspnea 09/28/24 09/28/24 (2.5 mg base)/3 mL nebulization soln magnesium hydroxide 400 mg/5 mL 30 ml PO DAILY PRN Constipation 09/28/24 09/28/24 oral suspension midodrine 5 mg tablet 5 mg PO DAILY 09/28/24 09/28/24 sodium phosphates 19 gram-7 118 ml OK DAILY PRN Constipation 09/28/24 09/28/24 gram/118 mL enema (Fleet Enema) Previous Rx's ?Medication ?Instructions ?Recorded hydrocortisone 2.5 % topical cream 1 appl OK BID PRN hemorrhoids #30 09/29/23 with perineal applicator grams (Proctosol HC) aspirin 81 mg chewable tablet 81 mg feeding tube DAILY #90 tabs 09/08/24 cholecalciferol (vitamin D3) 25 25 mcg feeding tube DAILY #30 tabs 09/08/24 mcg (1,000 unit) tablet dextromethorphan-guaifenesin 10 10 ml feeding tube Q4H PRN cough 09/08/24 mg-100 mg/5 mL oral syrup #500 mL gabapentin 300 mg capsule 300 mg feeding tube BID #60 caps 09/08/24 levothyroxine 137 mcg tablet 137 mcg feeding tube DAILY@0600 09/08/24 (Synthroid) #30 tabs oxcarbazepine 150 mg tablet 150 mg feeding tube BID #60 tabs 09/08/24 (Trileptal) oxcarbazepine 300 mg tablet 300 mg feeding tube BID #60 tabs 09/08/24 trazodone 50 mg tablet 50 mg feeding tube BEDTIME PRN 09/08/24 Sleep #30 tabs calcium 600 mg (as 1 tab PO BID@1600,2000 #60 tabs 09/21/24 carbonate)-vitamin D3 10 mcg (400 unit) tablet sennosides 8.6 mg-docusate sodium 1 tab PO BEDTIME #28 tabs 09/21/24 50 mg tablet (Senna Plus) cefdinir 250 mg/5 mL oral 300 mg (6 mL) PO BID 7 days #84 mL 09/23/24 suspension metronidazole 500 mg/5 mL oral 500 mg (5 mL) PO BID 6 days #60 mL 09/23/24 suspension fluticasone propionate 50 1 spray intranasal DAILY #16 grams 09/27/24 mcg/actuation nasal spray,suspension vancomycin 50 mg/mL oral solution 125 mg (2.5 mL) PO QID 10 days 09/28/24 #100 mL Allergies Allergy/AdvReac Type Severity Reaction Status Date / Time Sulfa (Sulfonamide Allergy Mild HIVES Verified 11/07/24 12:29 Antibiotics) sulfamethoxazole Allergy Mild HIVES Verified 11/07/24 12:29 [From Bactrim] amoxicillin [Amoxicillin] Allergy Unknown HIVES Verified 11/07/24 12:29 Clindamycin HCl Allergy Unknown rash Verified 11/07/24 12:29 trimethoprim [From Bactrim] Allergy Unknown HIVES Verified 11/07/24 12:29 Review of Systems Review of Systems No specific complaints per family. G-tube not working Yes all other systems are reviewed and are negative [facility] Past Medical History Source: unable to obtain Medical History Medicare annual wellness visit, subsequent Preoperative cardiovascular examination New onset left bundle branch block (LBBB) Lethargy COVID-19 virus infection Mental status alteration Colon cancer screening Atlantoaxial instability Cholelithiasis Mental and behavioral problem Hypercholesterolemia Vitamin D deficiency Closed right ankle fracture Patent foramen ovale Hypothyroid Megaloblastic anemia CVA (cerebral vascular accident) Cataracts, bilateral Down syndrome Jorge L's disease Surgical History Clubfoot Hx of tubal ligation Hx of cataract surgery History of colonoscopy Family History Family History Father No problems noted. Mother Hx of cancer of lung Social History Social History Household Members: Other Household Members Other:: CHD Housing: Other Housing Other:: [facility]DC Do you presently have visiting nurse or other home services: Yes Unable to assess alcohol history related to: Unknown Alcohol intake: never Comment: care home staff at bedside Patient Tobacco Use Status: Never used Tobacco e-Cigarette/Vaping Use: Never Used Second Hand Smoke Exposure: No Advance Directives: Yes Advance Directives Information Provided: No Advance Directives on File: No Advance Directives Date on File: 04/27/23 Do you have a plan to hurt others: No Plan service: No Current occupational status: disabled Cognitive needs: Yes Hearing needs: No Vision needs: No Physical Exam ED Vital Signs: Vital Signs - 24 hr 11/07/24 12:59 Temperature 97.4 F Pulse Rate 68 Respiratory Rate 16 Blood Pressure 130/98 H Pulse Oximetry 96 Oxygen Delivery Method Room Air BMI result Body Mass Index 17.5 Appearance: Alert. No acute distress. Eyes: Pupils equal, round and reactive to light. ENT: Pharynx normal. Neck: Normal inspection. Neck supple. No lymph nodes noted. No crepitus CVS: Normal heart rate and rhythm. Pulses normal. Normal S1 and S2 Respiratory: No respiratory distress. Breath sounds normal. No Wheezing. No rales Abdomen: Soft and nontender. No rigidity. No distention. good BS x4 Skin: Skin warm and dry. Normal skin color. Normal skin turgor. Extremities: No lower extremity edema. Neurovascular intact to all extremities. No Lacerations. No Rash Neuro: Alert contracted Medical Decision Making Medical Decision Making MDM Narrative: Patient positive G-tube that is seems to be clogged. I replaced the G-tube without any complications. Procedure note patient identified with a 18 Lithuanian G-tube. The old G-tube was checked it was grossly clot. The balloon was deflated. Subsequently a new 18 Lithuanian G-tube was replaced. There was no complication to balloon popped up to 9 cc without any complications. A KUB was then done. My interpretation of the K UB shows good placement of the G-tube. Differential Diagnosis Differential Diagnoses: The differential diagnosis associated with the presen tation includes Clogged G-tube Admission/Observation Consideration of admission/observation: Escalation of care including admis judy/observation considered No need to admit patient did not grossly appear dehydrated Consult Healthcare Provider Additional history obtained through patient's sister Lab Data MDM Lab Attestation statement: I reviewed the patient's lab results. External Record Review External record reviewed: Inpatient record Chronic Conditions Down syndrome Medications Administered Discontinued Medications Generic Name Dose Route Start Last Admin Trade Name Freq PRN Reason Stop Dose Admin Diatrizoate Meglum/Diatrizoate Sod 30 ml 11/07/24 12:53 11/07/24 12:54 Diatrizoate Meglumine, Sodium 30 Ml Solution PO 11/07/24 12:54 30 ml ONCE ONE Administration Discharge Plan Discharge Clinical Impression: Complaint associated with gastric tube Patient Disposition: Home, Self-Care Instructions: How to Use and Care for Your PEG Tube (DC) Prescriptions: No Action sennosides-docusate sodium [Senna Plus] 8.6-50 mg tablet 1 tab PO BEDTIME Qty: 28 0RF calcium carbonate-vitamin D3 600 mg-10 mcg (400 unit) tablet 1 tab PO BID@1600,2000 Qty: 60 0RF fluticasone propionate 50 mcg/actuation spray,suspension 1 spray intranasal DAILY Qty: 16 0RF levothyroxine [Synthroid] 137 mcg tablet 137 mcg feeding tube DAILY@0600 Qty: 30 0RF oxcarbazepine [Trileptal] 150 mg tablet 150 mg feeding tube BID Qty: 60 0RF trazodone 50 mg Tablet 50 mg feeding tube BEDTIME PRN (Reason: Sleep) Qty: 30 0RF oxcarbazepine 300 mg tablet 300 mg feeding tube BID Qty: 60 0RF dextromethorphan-guaifenesin 10-100 mg/5 mL syrup 10 ml feeding tube Q4H PRN (Reason: cough) Qty: 500 0RF gabapentin 300 mg capsule 300 mg feeding tube BID Qty: 60 0RF aspirin 81 mg tablet,chewable 81 mg feeding tube DAILY Qty: 90 0RF cholecalciferol (vitamin D3) 25 mcg (1,000 unit) tablet 25 mcg feeding tube DAILY Qty: 30 0RF metronidazole 500 mg/5 mL suspension 500 mg PO BID 6 Days Qty: 60 0RF Rx Instructions: END DATE 10/02/2024 cefdinir 250 mg/5 mL suspension for reconstitution 300 mg PO BID 7 Days Qty: 84 0RF Rx Instructions: END DATE 10/01/2024 Cetaphil Cream 1 appl TOPICAL MOTH Rx Instructions: after showers on Thursday and ipratropium-albuterol 0.5 mg-3 mg(2.5 mg base)/3 mL Solution For Nebulization 3 ml INHALATION Q6H PRN (Reason: Dyspnea) midodrine 5 mg Tablet 5 mg PO DAILY Rx Instructions: hold for SBP >130 magnesium hydroxide 400 mg/5 mL Suspension 30 ml PO DAILY PRN (Reason: Constipation) bisacodyl 10 mg Suppository 10 mg OK DAILY PRN (Reason: Constipation) Fleet Enema 19-7 gram/118 mL Enema 118 ml OK DAILY PRN (Reason: Constipation) acetaminophen 650 mg/20.3 mL solution 640 mg feeding tube Q4H PRN (Reason: fever or pain) vancomycin 50 mg/mL recon soln 125 mg PO QID 10 Days Qty: 100 0RF hydrocortisone [Proctosol HC] 2.5 % cream with perineal applicator 1 appl OK BID PRN (Reason: hemorrhoids) Qty: 30 2RF Print Language: Northern Irish
--- NOTE | 2024-11-07 12:45 | PC.NURSE ---
Chaves at bedside to replaced patient G-tube. Per patient sister patient denies pain to site but some with tube movement.
[2024-11-07] MEDS: Diatrizoate Meglumine, Sodium 30 ML SOLUTION PO (12:54)
[2024-11-07 12:59] VITALS: BP 130/98; PULSE 68; RESP 16; TEMP 36.3; O2SAT 96
--- OUTSIDE RECORDS SUMMARY | 2024-11-07 14:53 | XMS_ITS | Encounter Summary ---
Author Organization [facility] Address [address] [place] [address] Care Team Providers Care Hi Low Truck Driver Name Role Phone Erickson Melton MD Primary Care Provider [phone]- [phone] Encounter Details Date Type Department Care Team (Late st Contact Info) Description 09/19/2024 Lab Requisition [facility] - Main Lab [address] [facility] [place] [address] Erickson Melton MD [address] [place] [id number] Other seizures (CMS/HCC V24, CMS/HCC V28); Hypothyroidism, [...] (ABNORMAL) Thyroxine total (09/19/2024 9:04 AM EDT) [facility] T4, Total 2.8(L) 4.5 - 10.9 mcg/dL LAB CHEMISTRY METHOD 09/19/2024 1:[address] [facility] Blood Venous blood specimen / Unknown Venipuncture / Unknown 09/19/2024 9:04 AM EDT 09/19/2024 11:18 AM EDT Erickson Melton MD LAB BLOOD ORDERABLES Final Result [facility] [address] [place] [address], * (ABNORMAL) Comprehensive metabolic panel (09/19/2024 9:04 AM EDT) [facility] Sodium 139 133 - 145 mmol/L LAB CHEMISTRY METHOD 09/19/2024 1:38 PM [facility] Potassium 4.2 3.5 - 5.5 mmol/L LAB CHEMISTRY METHOD 09/19/2024 1:38 PM [facility] Chloride 97 96 - 110 mmol/L LAB CHEMISTRY METHOD 09/19/2024 1:[address] [facility] CO2 38(H) 21 - 32 mmol/L LAB CHEMISTRY METHOD 09/19/2024 1:38 PM [facility] Anion Gap 4 3 - 11 LAB CHEMISTRY METHOD 09/19/2024 1:38 PM [facility] Glucose 98 70 - 100 mg/dL LAB CHEMISTRY METHOD 09/19/2024 1:38 PM [facility] BUN 27(H) 5 - 25 mg/dL LAB CHEMISTRY METHOD 09/19/2024 1:[address] [facility] Creatinine 0.67 0.50 - 1.10 mg/dL LAB CHEMISTRY METHOD 09/19/2024 1:[address] [facility] eGFR 98 >=60 mL/min/1. 73m2 LAB CHEMISTRY METHOD 09/19/2024 1:[address] [facility] Comment:Calculation based on the??Chronic Kidney Disease Epidemiology Collaboration (CKD-EPI) equation refit??without adjustment for race. BUN/Creatinine Ratio 40.3 LAB CHEMISTRY METHOD 09/19/2024 1:[address] [facility] Calcium 8.9 8.5 - 10.5 mg/dL LAB CHEMISTRY METHOD 09/19/2024 1:38 PM [facility] AST (SGOT) 20 10 - 42 unit/L LAB CHEMISTRY METHOD 09/19/2024 1:38 PM [facility] ALT (SGPT) 32 10 - 60 unit/L LAB CHEMISTRY METHOD 09/19/2024 1:38 PM [facility] Alkaline Phosphatase 144(H) 42 - 121 unit/L LAB CHEMISTRY METHOD 09/19/2024 1:38 PM [facility] Total Protein 6.6 6.0 - 8.0 g/dL LAB CHEMISTRY METHOD 09/19/2024 1:38 PM [facility] Albumin 2.6(L) 3.2 - 5.0 g/dL LAB CHEMISTRY METHOD 09/19/2024 1:[address] [facility] Total Bilirubin 0.2 0.0 - 1.4 mg/dL LAB CHEMISTRY METHOD 09/19/2024 1:38 PM [facility] Blood Venous blood specimen / Unknown Venipuncture / Unknown 09/19/2024 9:04 AM EDT 09/19/2024 11:18 AM EDT us Erickson Melton MD LAB BLOOD ORDERABLES Final Result [facility] [address] [place] [address], * (ABNORMAL) Complete blood count (09/19/2024 9:04 AM EDT) [facility] WBC 7.4 4.8 - 10.8 K/mcL LAB HEMETOLOGY METHOD 09/19/2024 11:[address] [facility] RBC 3.30(L) 3.80 - 4.80 M/mcL LAB HEMETOLOGY METHOD 09/19/2024 11:[address] [facility] Hemoglobin 11.0(L) 11.5 - 16.0 g/dL LAB HEMETOLOGY METHOD 09/19/2024 11:[address] [facility] Hematocrit 35.4 35.0 - 47.0 % LAB HEMETOLOGY METHOD 09/19/2024 11:[address] [facility] MCV 108.3(H) 79.0 - 98.0 FL LAB HEMETOLOGY METHOD 09/19/2024 11:[address] [facility] MCH 33.6(H) 27.0 - 32.0 pcg LAB HEMETOLOGY [facility] MCHC 31.1(L) 32.0 - 37.0 g/dL LAB HEMETOLOGY METHOD 09/19/2024 11:[address] [facility] RDW 14.5 11.0 - 15.0 % LAB HEMETOLOGY METHOD 09/19/2024 11:[address] [facility] Platelets 291 130 - 400 K/mcL LAB HEMETOLOGY METHOD 09/19/2024 11:[address] [facility] MPV 11.1(H) 7.0 - 11.0 FL LAB HEMETOLOGY METHOD 09/19/2024 11:[address] [facility] NRBC 0.0 <1.0 % LAB HEMETOLOGY METHOD 09/19/2024 11:[address] [facility] NRBC Absolute 0.00 <0.10 K/mcL LAB HEMETOLOGY METHOD 09/19/2024 11:[address] [facility] Blood Venous blood specimen / Unknown Venipuncture / Unknown 09/19/2024 9:04 AM EDT 09/19/2024 11:18 AM EDT us Erickson Melton MD LAB BLOOD ORDERABLES Final Result [facility] [address] [place] [address], documented in this encounter Visit Diagnoses Diagnosis [...] documented as of this encounter Care Teams Hi Low Truck Driver Relationship Specialty Start Date End Date Erickson Melton MD [address] [place] [phone] PCP - General Internal Medicine 09/13/24 documented as of this encounter
--- OUTSIDE RECORDS SUMMARY | 2024-11-07 14:53 | XMS_ITS | Data Portability ---
Author Organization [facility], [id number] Address [address] [place] [address] Assessment No assessment recorded. Plan of Treatment Reminders Order Date Submit Date Provider Last Modified By Organization Details Last Modified Time Details Appointments None recorded. Lab None recorded. Referral emergency medicine referral 2022 023 [email or web address] [facility] Emergency Room, [address] [place], [address], 3 08:00:22 Procedures None recorded. Surgeries None recorded. Imaging None recorded. Medication Orders None recorded. Patient TargetsNo targets recorded. Patient Instructions Encounter Date Encounter Id Patient Instructions Last Modified By Organization Details Last Modified Time 10/21/2022 [id number] You have been advised to go now to the Emergency Department for further evaluation. [facility] ER has been advised of your impending arrival. [email or web address] Not available 10/21/2022 17:01:48 Reason for Referral Emergency Medicine Referral for Petechiae of skin New petechial rash bilateral lower extremities (since last night) Referring Physician: Sveta Martin, Urgent Care, Encounter Date: 10/21/2022 Problems Name Problem SNOMED Code Status Onset Date Resolution Date Notes Provider Name and Address Organization Details Recorded Time Feeling agitated 58566422 Active 2022 IRIS COUVERTIE R null, [place] - [facility] 3 15:15:15 Mood disorder 54863478 Active 2022 IRIS COUVERTIE R null, [place] - [facility] 3 15:15:25 Aggressive behavior 35984117 Active 2022 IRIS COUVERTIE R null, [place] - [facility] 3 15:15:36 Constipation 24730222 Active 2022 IRIS COUVERTIE R null, [place] - [facility] 3 15:15:52 Hypothyroidism 11771693 Active 2022 IRIS COUVERTIE R null, [place] - [facility] 3 15:16:05 Allergic rhinitis 83062159 Active 2022 IRIS COUVERTIE R null, [place] - [facility] 3 15:16:38 Tinea pedis 7119403 Active 2022 IRIS COUVERTIE R null, [place] - [facility] 3 15:16:53 Sleep disorder 45151762 Active 2022 IRIS COUVERTIE R null, [place] - [facility] 3 15:18:09 Problem Notes None recorded. Medical Equipment None Reported. Allergies Allergen ID Allergen Name Allergen Category Reaction Reaction Severity Criticality Documentation Date Start Date Code Code System Note Provider Name and Address Organization Details Recorded Time 168638 amoxicill in medicatio n Not available Not available Not available 10/21/2022 723 RxNorm IRIS COUVERTIE R null, [place] - [facility] 3 15:04:10 625013 Bactrim medicatio n Not available Not available Not available 10/21/2022 43521 9 RxNorm IRIS COUVERTIE R null, [place] - [facility] 3 15:04:17 958693 Substance with sulfonami de structure and antibacte rial mechanism of action (substanc e) medicatio n Not available Not available Not available 10/21/2022 85278 8003 SNOMED IRIS COUVERTIE R null, [place] - [facility] 3 15:04:22 424246 clindamyc in Not available Not available Not [...] % 94 % 124.46 cm 24.7 kg/m2 19410.8 6 g 96 mm[Hg] 69 mm[Hg] LIBORIO [...] SNOMED-CT Code Diagnosis ICD10 Code Diagnosis Note [id number] [place] [id number] [address] 10/21/2022 09:24:57 10/21/2022 17:07:10 Petechiae of skin 621252285 R23.3 Health Concerns Section Related Observation LastModified by Organization Detai ls LastModified Time None Recorded Concern Status LastModified by Organization Details LastModified Time None Recorded Advance Directives Directive None Recorded Payers Encounter Date Sequence Insurance Name Policy Number Policy Lu Covered Member ID Lu Member ID Guarantor Name 10/21/2022 1 [place] [employer] Whitney Lucero [id number] Whitney Lucero 10/21/2022 2 [place] [facility] Lucero [id number] Whitney Lucero Notes Date Note Type Note [...] with hx of Down's syndrome brought by long-term staff member for evaluation of a red rash to her lower legs noted first last night. The patient is a poor historian and history obtained by long-term staff member. No hx of fever, runny nose, cough, vomiting, diarrhea. No new medications, soaps or lotions. The rash does not appear to be itchy but seems to be spreading. Sveta Martin MD [address] [place], [address], [place] - [facility] 10/21/2022 17:07:58 OBGyn Episode No OBEpisode recorded.
--- OUTSIDE RECORDS SUMMARY | 2024-11-07 14:53 | XMS_ITS | Encounter Summary ---
Author Organization [facility] Address [address] [place] [address] Care Team Providers Care Unit Trust Manager Name Role Phone Erickson Melton MD Primary Care Provider +1- [phone] Encounter Details Date Type Department Care Team (Late st Contact Info) Description 10/31/2024 Lab Requisition [facility] - Main Lab [address] [facility] [place] [address] Erickson Melton MD [address] [place] [address] Pneumonia, unspecified organism; Anemia, unspecified Social History [...] for your loved ones. For example, child and family counselor or elderly care for an older [...] Associated Diagnosis Comments COMPLETE BLOOD COUNT Routine 11/01/2024 6:41 AM EDT Pneumonia, unspecified organism Anemia, unspecified BASIC METABOLIC PANEL Routine 11/01/2024 6:41 AM EDT Pneumonia, unspecified organism Anemia, unspecified documented in this encounter Results * (ABNORMAL) Basic metabolic panel (11/01/2024 6:41 AM EDT) Sodium 141 133 - 145 mmol/L LAB CHEMISTRY METHOD 11/01/2024 11:26 AM [facility] Potassium 4.1 3.5 - 5.5 mmol/L LAB CHEMISTRY METHOD 11/01/2024 11:26 AM [facility] Chloride 102 96 - 110 mmol/L LAB CHEMISTRY METHOD 11/01/2024 11:26 AM [facility] CO2 34(H) 21 - 32 mmol/L LAB CHEMISTRY METHOD 11/01/2024 11:26 AM [facility] Anion Gap 5 3 - 11 LAB CHEMISTRY METHOD 11/01/2024 11:26 AM [facility] Glucose 86 70 - 100 mg/dL LAB CHEMISTRY METHOD 11/01/2024 11:26 AM [facility] BUN 23 5 - 25 mg/dL LAB CHEMISTRY METHOD 11/01/2024 11:26 AM [facility] Creatinine 0.74 0.50 - 1.10 mg/dL LAB CHEMISTRY METHOD 11/01/2024 11:26 AM [facility] eGFR 90 >=60 mL/min/1. 73m2 LAB CHEMISTRY METHOD 11/01/2024 11:26 AM [facility] Comment:Calculation based on the??Chronic Kidney Disease Epidemiology Collaboration (CKD-EPI) equation refit??without adjustment for race. BUN/Creatinine Ratio 31.1 LAB CHEMISTRY METHOD 11/01/2024 11:26 AM [facility] Calcium 8.6 8.5 - 10.5 mg/dL LAB CHEMISTRY METHOD 11/01/2024 11:26 AM [facility] Blood Venous blood specimen / Unknown Venipuncture / Unknown 11/01/2024 6:41 AM EDT 11/01/2024 10:40 AM EDT Erickson Melton MD LAB BLOOD ORDERABLES Final Result [facility] [address] [place] [address], * (ABNORMAL) Complete blood count (11/01/2024 6:41 AM EDT) [facility] Signature WBC 9.2 4.8 - 10.8 K/mcL LAB HEMETOLOGY METHOD 11/01/2024 10:[address] [facility] RBC 3.90 3.80 - 4.80 M/mcL LAB HEMETOLOGY METHOD 11/01/2024 10:[address] [facility] Hemoglobin 13.5 11.5 - 16.0 g/dL LAB HEMETOLOGY METHOD [facility]24 [facility] Hematocrit 43.3 35.0 - 47.0 % LAB HEMETOLOGY METHOD 11/01/2024 10[facility] MCV 110.7(H) 79.0 - 98.0 FL LAB HEMETOLOGY METHOD 11/01/2024 10[facility] MCH 34.5(H) 27.0 - 32.0 pcg LAB HEMETOLOGY METHOD 11/01/2024 10[facility]57 [facility] MCHC 31.2(L) 32.0 - 37.0 g/dL LAB HEMETOLOGY METHOD 11/01/2024 10:[address] [facility] RDW 16.9(H) 11.0 - 15.0 % LAB HEMETOLOGY METHOD 11/01/2024 10:[address] [facility] Platelets 210 130 - 400 K/mcL LAB HEMETOLOGY METHOD 11/01/2024 10[facility]57 [facility] MPV 11.2(H) 7.0 - 11.0 FL LAB HEMETOLOGY METHOD 11/01/2024 10:[address] [facility] NRBC 0.0 <1.0 % LAB HEMETOLOGY METHOD 11/01/2024 10:[address] [facility] NRBC Absolute 0.00 <0.10 K/mcL LAB HEMETOLOGY METHOD 11/01/2024 10:[address] [facility] Blood Venous blood specimen / Unknown Venipuncture / Unknown 11/01/2024 6:41 AM EDT 11/01/2024 10:36 AM EDT us Erickson Melton MD LAB BLOOD ORDERABLES Final Result [facility] [address] [place] [address], documented in this encounter Visit Diagnoses Diagnosis Pneumonia, unspecified organism Anemia, unspecified documented in this encounter Additional Health Concerns Infection Onset Date Last Indicated Resolved Time C. difficile Comment:Tested (+) at SNF; started on PO ABT 09/29/24 NL 09/29/2024 10/26/2024 documented as of this encounter Care Teams Unit Trust Manager Relationship Specialty Start Date End Date Erickson Melton MD [address] [place] [address] PCP - General Internal Medicine 09/13/24 documented as of this encounter
--- OUTSIDE RECORDS SUMMARY | 2024-11-07 14:53 | XMS_ITS | Encounter Summary ---
Author Organization [facility] Address [address] [place] [address] Care Team Providers Care Relief Driller Name Role Phone Erickson Melton MD Primary Care Provider +1- [phone] Encounter Details Date Type Department Care Team (Late st Contact Info) Description 10/27/[address] [facility] - Main Lab [address] [facility] [place] [address] Erickson Melton MD [address] [place] [address] Enterocolitis due to Clostridium difficile, not specified as recurrent Social History Tobacco Use Types Packs/Day Years [...] for your loved ones. For example, child care center assistant director or elderly care for an older adult? [...] Associated Diagnosis Comments COMPLETE BLOOD COUNT Routine 10/27/2024 6:46 AM EDT Enterocolitis due to Clostridium difficile, not specified as recurrent BASIC METABOLIC PANEL Routine 10/27/2024 6:46 AM EDT Enterocolitis due to Clostridium difficile, not specified as recurrent documented in this encounter Results * (ABNORMAL) Basic metabolic panel (10/27/2024 6:46 AM EDT) Sodium 140 133 - 145 mmol/L LAB CHEMISTRY METHOD 10/27/2024 9:33 AM [facility] Potassium 4.3 3.5 - 5.5 mmol/L LAB CHEMISTRY METHOD 10/27/2024 9:33 AM [facility] Comment:Hemolysis present Chloride 105 96 - 110 mmol/L LAB CHEMISTRY METHOD 10/27/2024 9:33 AM [facility] CO2 29 21 - 32 mmol/L LAB CHEMISTRY METHOD 10/27/2024 9:33 AM [facility] Anion Gap 6 3 - 11 LAB CHEMISTRY METHOD 10/27/2024 9:33 AM [facility] Glucose 82 70 - 100 mg/dL LAB CHEMISTRY METHOD 10/27/2024 9:33 AM [facility] BUN 33(H) 5 - 25 mg/dL LAB CHEMISTRY METHOD 10/27/2024 9:33 AM [facility] Creatinine 0.68 0.50 - 1.10 mg/dL LAB CHEMISTRY METHOD 10/27/2024 9:33 AM [facility] eGFR 97 >=60 mL/min/1. 73m2 LAB CHEMISTRY METHOD 10/27/2024 9:33 AM [facility] Comment:Calculation based on the??Chronic Kidney Disease Epidemiology Collaboration (CKD-EPI) equation refit??without adjustment for race. BUN/Creatinine Ratio 48.5 LAB CHEMISTRY METHOD 10/27/2024 9:33 AM [facility] Calcium 8.7 8.5 - 10.5 mg/dL LAB CHEMISTRY METHOD 10/27/2024 9:33 AM [facility] Blood Venous blood specimen / Unknown Venipuncture / Unknown 10/27/2024 6:46 AM EDT 10/27/2024 7:59 AM EDT us Erickson Melton MD LAB BLOOD ORDERABLES Final Result [facility] [address] [place] [address], * (ABNORMAL) Complete blood count (10/27/2024 6:46 AM EDT) WBC 10.5 4.8 - 10.8 K/mcL LAB HEMETOLOGY METHOD 10/27/2024 8:39 AM EDT [facility] RBC 3.80 3.80 - 4.80 M/mcL LAB HEMETOLOGY METHOD 10/27/2024 8:39 AM [facility] Hemoglobin 13.0 11.5 - 16.0 g/dL LAB HEMETOLOGY METHOD 10/27/2024 8:39 AM [facility] Hematocrit 42.2 35.0 - 47.0 % LAB HEMETOLOGY METHOD 10/27/2024 8:39 AM [facility] MCV 111.9(H) 79.0 - 98.0 FL LAB HEMETOLOGY METHOD 10/27/2024 8:39 AM [facility] MCH 34.5(H) 27.0 - 32.0 pcg LAB HEMETOLOGY METHOD 10/27/2024 8:39 AM [facility] MCHC 30.8(L) 32.0 - 37.0 g/dL LAB HEMETOLOGY METHOD 10/27/2024 8:39 AM [facility] RDW 17.3(H) 11.0 - 15.0 % LAB HEMETOLOGY METHOD 10/27/2024 8:39 AM [facility] Platelets 181 130 - 400 K/mcL LAB HEMETOLOGY METHOD 10/27/2024 8:39 AM T [facility] MPV 10.6 7.0 - 11.0 FL LAB HEMETOLOGY METHOD 10/27/2024 8:39 AM EDT [facility] NRBC 0.0 <1.0 % LAB HEMETOLOGY METHOD 10/27/2024 8:39 AM EDT [facility] NRBC Absolute 0.00 <0.10 K/mcL LAB HEMETOLOGY METHOD 10/27/2024 8:39 AM EDT [facility] Blood Venous blood specimen / Unknown Venipuncture / Unknown 10/27/2024 6:46 AM EDT 10/27/2024 7:59 AM EDT Erickson Melton MD LAB BLOOD ORDERABLES Final Result [facility] [address] [place] [address], documented in this encounter Visit Diagnoses Diagnosis Enterocolitis due to Clostridium difficile, not specified as recurrent documented in this encounter Additional Health Concerns Infection Onset Date Last Indicated Resolved Time C. difficile Comment:Tested (+) at SNF; started on PO ABT 09/29/24 NL 09/29/2024 10/26/2024 documented as of this encounter Care Teams Relief Driller Relationship Specialty Start Date End Date Erickson Melton MD [address] [place] [id number] PCP - General Internal Medicine 09/13/24 documented as of this encounter
--- OUTSIDE RECORDS SUMMARY | 2024-11-07 14:53 | XMS_ITS | Encounter Summary ---
Author Organization [facility] Address [address] [place] [address] Care Team Providers Care Butcher Chicken And Fish Name Role Phone Erickson Melton MD Primary Care Provider +1- [phone] Encounter Details Date Type Department Care Team (Late st Contact Info) Description 10/26/2024 Lab Requisition [facility] - Main Lab [address] [facility] [place] [address] Erickson Melton MD [address] [place] [address] Diarrhea, unspecified Social History Tobacco Use Types [...] for your loved ones. For example, child psychologist or elderly care for an older adult? [...] Positive( A) Negative 10/26/2024 4:33 PM EDT [facility] C difficile Toxins A+B, EIA Positive( AA) Negative 10/26/2024 4:33 PM EDT [facility] Comment: CRITICAL RESULT POSITIVE FOR TOXIN PRODUCING CLOSTRIDIOIDES DIFFICILE, NO ADDITIONAL TESTING IS NECESSARY. REPEAT SAMPLES SHOULD NOT BE SUBMITTED FOR TEST OF CURE. Stool Rectum structure / Unknown 10/26/2024 10/26/2024 3:36 PM EDT us Erikcson Melton MD LAB MICROBIOLOGY - GENERAL ORDERABLES Final Result [facility] [address] [place] [address], documented in this encounter Visit Diagnoses Diagnosis Diarrhea, unspecified documented in this encounter Additional Health Concerns Infection Onset Date Last Indicated Resolved Time C. difficile Comment:Tested (+) at SNF; started on PO ABT 09/29/24 NL 09/29/2024 10/26/2024 documented as of this encounter Care Teams Butcher Chicken And Fish Relationship Specialty Start Date End Date Erickson Melton MD [address] [place] [address] PCP - General Internal Medicine 09/13/24 documented as of this encounter
--- OUTSIDE RECORDS SUMMARY | 2024-11-07 14:53 | XMS_ITS | Encounter Summary ---
Author Organization [facility] Address [address] [place] [address] Care Team Providers Care Lawn Mower Repairer Name Role Phone Erickson Melton MD Primary Care Provider +1- [phone] Encounter Details Date Type Department Care Team (Late st Contact Info) Description 09/13/2024 Lab Requisition [facility] - Main Lab 299 [facility] [place] [address] Erickson Melton MD [address] [place] [address] Anemia, unspecified; Hypothyroidism, unspecified; Other seizures (CMS/HCC [...] - 35 ug/mL 09/16/2024 12:30 PM EDT [facility] Comment: If applicable, any drug confirmation testing reported here was developed and the performance characteristics determined by [facility]. This confirmation testing has not been cleared or approved by the FDA. The laboratory is regulated under CLIA as qualified to perform high-complexity testing. This test is used for patient testing purposes. It should not be regarded as investigational or for research. Test performed at [facility], [address] , [place], [place] ??[address] ? [phone] Yessy Coulter MD, PhD - Computer Systems Support Specialist Blood Venous blood specimen / Unknown Venipuncture / Unknown 09/13/2024 8:54 AM EDT 09/13/2024 10:34 AM EDT Erickson Melton MD LAB BLOOD ORDERABLES Final Result [facility] [address] [place] [address] * (ABNORMAL) Thyroid stimulating hormone (09/13/2024 8:54 AM EDT) TSH 7.10(H) 0.40 - 4.00 mcIU/mL LAB CHEMISTRY METHOD 09/13/2024 1:18 PM EDT [facility] Blood Venous blood specimen / Unknown Venipuncture / Unknown 09/13/2024 8:54 AM EDT 09/13/2024 10:34 AM EDT us Erickson Melton MD LAB BLOOD ORDERABLES Final Result [facility] [address] [place] [address], * (ABNORMAL) Comprehensive metabolic panel (09/13/2024 8:54 AM EDT) Sodium 142 133 - 145 mmol/L LAB CHEMISTRY METHOD 09/13/2024 1:41 PM [facility] Potassium 4.3 3.5 - 5.5 mmol/L LAB CHEMISTRY METHOD 09/13/2024 1:41 PM [facility] Chloride 99 96 - 110 mmol/L LAB CHEMISTRY METHOD 09/13/2024 1:41 PM [facility] CO2 36(H) 21 - 32 mmol/L LAB CHEMISTRY METHOD 09/13/2024 1:41 PM [facility] Comment:Results verified by repeat testing Anion Gap 7 3 - 11 LAB CHEMISTRY METHOD 09/13/2024 1:41 PM [facility] Glucose 105(H) 70 - 100 mg/dL LAB CHEMISTRY METHOD 09/13/2024 1:41 PM [facility] BUN 23 5 - 25 mg/dL LAB CHEMISTRY METHOD 09/13/2024 1:41 PM [facility] Creatinine 0.77 0.50 - 1.10 mg/dL LAB CHEMISTRY METHOD 09/13/2024 1:41 PM [facility] eGFR 86 >=60 mL/min/1. 73m2 LAB CHEMISTRY METHOD 09/13/2024 1:41 PM [facility] Comment:Calculation based on the??Chronic Kidney Disease Epidemiology Collaboration (CKD-EPI) equation refit??without adjustment for race. BUN/Creatinine Ratio 29.9 LAB CHEMISTRY METHOD 09/13/2024 1:41 PM [facility] Calcium 8.9 8.5 - 10.5 mg/dL LAB CHEMISTRY METHOD 09/13/2024 1:41 PM EDT [facility] AST (SGOT) 25 10 - 42 unit/L LAB CHEMISTRY METHOD 09/13/2024 1:41 PM T [facility] ALT (SGPT) 24 10 - 60 unit/L LAB CHEMISTRY METHOD 09/13/2024 1:41 PM T [facility] Alkaline Phosphatase 118 42 - 121 unit/L LAB CHEMISTRY METHOD 09/13/2024 1:41 PM T [facility] Total Protein 6.9 6.0 - 8.0 g/dL LAB CHEMISTRY METHOD 09/13/2024 1:41 PM [facility] Albumin 2.8(L) 3.2 - 5.0 g/dL LAB CHEMISTRY METHOD 09/13/2024 1:41 PM [facility] Total Bilirubin 0.2 0.0 - 1.4 mg/dL LAB CHEMISTRY METHOD 09/13/2024 1:41 PM [facility] Blood Venous blood specimen / Unknown Venipuncture / Unknown 09/13/2024 8:54 AM EDT 09/13/2024 10:34 AM EDT Erickson Melton MD LAB BLOOD ORDERABLES Final Result [facility] [address] [place] [address], * (ABNORMAL) Complete blood count (09/13/2024 8:54 AM EDT) WBC 7.6 4.8 - 10.8 K/mcL LAB HEMETOLOGY METHOD 09/13/2024 12:06 PM [facility] RBC 3.60(L) 3.80 - 4.80 M/mcL LAB HEMETOLOGY METHOD 09/13/2024 12:06 PM [facility] Hemoglobin 12.1 11.5 - 16.0 g/dL LAB HEMETOLOGY METHOD 09/13/2024 12:06 PM [facility] Hematocrit 38.2 35.0 - 47.0 % LAB HEMETOLOGY METHOD 09/13/2024 12:06 PM [facility] MCV 107.0(H) 79.0 - 98.0 FL LAB HEMETOLOGY METHOD 09/13/2024 12:06 PM [facility] MCH 33.9(H) 27.0 - 32.0 pcg LAB HEMETOLOGY METHOD 09/13/2024 12:06 PM [facility] MCHC 31.7(L) 32.0 - 37.0 g/dL LAB HEMETOLOGY METHOD 09/13/2024 12:06 PM [facility] RDW 14.0 11.0 - 15.0 % LAB HEMETOLOGY METHOD 09/13/2024 12:06 PM [facility] Platelets 327 130 - 400 K/mcL LAB HEMETOLOGY METHOD 09/13/2024 12:06 PM [facility] MPV 11.0 7.0 - 11.0 FL LAB HEMETOLOGY METHOD 09/13/2024 12:06 PM [facility] NRBC 0.0 <1.0 % LAB HEMETOLOGY METHOD 09/13/2024 12:06 PM [facility] NRBC Absolute 0.00 <0.10 K/mcL LAB HEMETOLOGY METHOD 09/13/2024 12:06 PM [facility] Blood Venous blood specimen / Unknown Venipuncture / Unknown 09/13/2024 8:54 AM EDT 09/13/2024 10:34 AM EDT us Erickson Melton MD LAB BLOOD ORDERABLES Final Result [facility] [place] [facility] [address] [place] [address], documented in this encounter Visit Diagnoses Diagnosis [...] documented as of this encounter Care Teams Lawn Mower Repairer Relationship Specialty Start Date End Date Erickson Melton MD [address] [place] [id number] PCP - General Internal Medicine 09/13/24 documented as of this encounter
--- OUTSIDE RECORDS SUMMARY | 2024-11-07 14:53 | XMS_ITS | Encounter Summary ---
Author Organization [facility] Address [address] [place] [address] Care Team Providers Care Agility Instructor Name Role Phone Erickson Melton MD Primary Care Provider +1- [phone] Encounter Details Date Type Department Care Team (Late st Contact Info) Description 10/24/2024 Lab Requisition [facility] - Main Lab 299 [facility] [place] [address] Erickson Melton MD [address] [place] [address] Pneumonia, unspecified organism; Anemia, unspecified Social History [...] your loved ones. For example, child and adolescent psychologist or elderly care for an older [...] mmol/L LAB CHEMISTRY METHOD 10/25/2024 11:17 AM [facility] Potassium 4.2 3.5 - 5.5 mmol/L LAB CHEMISTRY METHOD 10/25/2024 11:17 AM [facility] Chloride 102 96 - 110 mmol/L LAB CHEMISTRY METHOD 10/25/2024 11:17 AM [facility] CO2 31 21 - 32 mmol/L LAB CHEMISTRY METHOD 10/25/2024 11:17 AM [facility] Anion Gap 9 3 - 11 LAB CHEMISTRY METHOD 10/25/2024 11:17 AM [facility] Glucose 98 70 - 100 mg/dL LAB CHEMISTRY METHOD 10/25/2024 11:17 AM [facility] BUN 26(H) 5 - 25 mg/dL LAB CHEMISTRY METHOD 10/25/2024 11:17 AM [facility] Creatinine 0.71 0.50 - 1.10 mg/dL LAB CHEMISTRY METHOD 10/25/2024 11:17 AM [facility] eGFR 95 >=60 mL/min/1. 73m2 LAB CHEMISTRY METHOD 10/25/2024 11:17 AM [facility] Comment:Calculation based on the??Chronic Kidney Disease Epidemiology Collaboration (CKD-EPI) equation refit??without adjustment for race. BUN/Creatinine Ratio 36.6 LAB CHEMISTRY METHOD 10/25/2024 11:17 AM [facility] Calcium 8.8 8.5 - 10.5 mg/dL LAB CHEMISTRY METHOD 10/25/2024 11:17 AM [facility] Blood Venous blood specimen / Unknown Venipuncture / Unknown 10/25/2024 8:09 AM EDT 10/25/2024 9:05 AM EDT Erickson Melton MD LAB BLOOD ORDERABLES Final Result [facility] [address] [place] [address], * (ABNORMAL) Complete blood count (10/25/2024 8:09 AM EDT) [facility] Signature WBC 5.1 4.8 - 10.8 K/mcL LAB HEMETOLOGY METHOD 10/25/2024 10:40 AM EDT [facility] RBC 3.70(L) 3.80 - 4.80 M/mcL LAB HEMETOLOGY METHOD 10/25/2024 10:40 AM EDT [facility] Hemoglobin 12.7 11.5 - 16.0 g/dL LAB HEMETOLOGY METHOD 10/25/2024 10:40 AM [facility] Hematocrit 40.0 35.0 - 47.0 % LAB HEMETOLOGY METHOD [facility]24 [facility] MCV 107.2(H) 79.0 - 98.0 FL LAB HEMETOLOGY METHOD 10/25/2024 10:40 AM [facility] MCH 34.0(H) 27.0 - 32.0 pcg LAB HEMETOLOGY METHOD 10/25/2024 10:40 AM [facility] MCHC 31.8(L) 32.0 - 37.0 g/dL LAB HEMETOLOGY METHOD 10/25/2024 10:40 AM EDT [facility] RDW 16.7(H) 11.0 - 15.0 % LAB HEMETOLOGY METHOD 10/25/2024 10:40 AM EDT [facility] Platelets 189 130 - 400 K/mcL LAB HEMETOLOGY METHOD 10/25/2024 10:40 AM [facility] MPV 11.2(H) 7.0 - 11.0 FL LAB HEMETOLOGY METHOD 10/25/2024 10:40 AM EDT [facility] NRBC 0.0 <1.0 % LAB HEMETOLOGY METHOD 10/25/2024 10:40 AM EDT [facility] NRBC Absolute 0.00 <0.10 K/mcL LAB HEMETOLOGY METHOD 10/25/2024 10:40 AM EDT [facility] Blood Venous blood specimen / Unknown Venipuncture / Unknown 10/25/2024 8:09 AM EDT 10/25/2024 9:05 AM EDT us Erickson Melton MD LAB BLOOD ORDERABLES Final Result [facility] [address] [place] [address], documented in this encounter Visit Diagnoses Diagnosis Pneumonia, unspecified organism Anemia, unspecified documented in this encounter Additional Health Concerns Infection Onset Date Last Indicated Resolved Time C. difficile Comment:Tested (+) at SNF; started on PO ABT 09/29/24 NL 09/29/2024 10/26/2024 documented as of this encounter Care Teams Agility Instructor Relationship Specialty Start Date End Date Erickson Melton MD [address] [place] [id number] PCP - General Internal Medicine 09/13/24 documented as of this encounter
--- OUTSIDE RECORDS SUMMARY | 2024-11-07 14:53 | XMS_ITS | Encounter Summary ---
Author Organization [facility] Address [address] [place] [address] Care Team Providers Care Pug Mill Operator Name Role Phone Erickson Melton MD Primary Care Provider +1- [phone] Encounter Details Date Type Department Care Team (Late st Contact Info) Description 09/19/2024 Lab Requisition [facility] - Main Lab [address] [facility] [place] [address] Erickson Melton MD [address] [place] [id number] Anemia, unspecified; Hypothyroidism, unspecified; Other seizures (CMS/HCC [...] mmol/L LAB CHEMISTRY METHOD 09/20/2024 11:27 AM [facility] Potassium 4.0 3.5 - 5.5 mmol/L LAB CHEMISTRY METHOD 09/20/2024 11:27 AM [facility] Chloride 97 96 - 110 mmol/L LAB CHEMISTRY METHOD 09/20/2024 11:27 AM [facility] CO2 36(H) 21 - 32 mmol/L LAB CHEMISTRY METHOD 09/20/2024 11:27 AM [facility] Anion Gap 6 3 - 11 LAB CHEMISTRY METHOD 09/20/2024 11:27 AM [facility] Glucose 121(H) 70 - 100 mg/dL LAB CHEMISTRY METHOD 09/20/2024 11:27 AM [facility] BUN 27(H) 5 - 25 mg/dL LAB CHEMISTRY METHOD 09/20/2024 11:27 AM [facility] Creatinine 0.71 0.50 - 1.10 mg/dL LAB CHEMISTRY METHOD 09/20/2024 11:27 AM [facility] eGFR 95 >=60 mL/min/1. 73m2 LAB CHEMISTRY METHOD 09/20/2024 11:27 AM [facility] Comment:Calculation based on the??Chronic Kidney Disease Epidemiology Collaboration (CKD-EPI) equation refit??without adjustment for race. BUN/Creatinine Ratio 38.0 LAB CHEMISTRY METHOD 09/20/2024 11:27 AM [facility] Calcium 8.4(L) 8.5 - 10.5 mg/dL LAB CHEMISTRY METHOD 09/20/2024 11:27 AM [facility] Blood Venous blood specimen / Unknown Venipuncture / Unknown 09/20/2024 7:49 AM EDT 09/20/2024 10:04 AM EDT us Erickson Melton MD LAB BLOOD ORDERABLES Final Result [facility] [address] [place] [address], [place] [phone] * (ABNORMAL) Complete blood count (09/20/2024 7:49 AM EDT) WBC 6.1 4.8 - 10.8 K/mcL LAB HEMETOLOGY METHOD 09/20/2024 10:34 AM EDT [facility] RBC 3.30(L) 3.80 - 4.80 M/mcL LAB HEMETOLOGY METHOD 09/20/2024 10:34 AM EDT [facility] Hemoglobin 11.1(L) 11.5 - 16.0 g/dL LAB HEMETOLOGY METHOD 09/20/2024 10:34 AM EDT [facility] Hematocrit 36.2 35.0 - 47.0 % LAB HEMETOLOGY METHOD 09/20/2024 10:34 AM EDT [facility] MCV 109.7(H) 79.0 - 98.0 FL LAB HEMETOLOGY METHOD 09/20[facility]2024 10[facility] MCH 33.6(H) 27.0 - 32.0 pcg LAB HEMETOLOGY METHOD 09/20/2024 10:34 AM EDT [facility] MCHC 30.7(L) 32.0 - 37.0 g/dL LAB HEMETOLOGY METHOD 09/20/2024 10:34 AM EDT [facility] RDW 14.6 11.0 - 15.0 % LAB HEMETOLOGY METHOD 09/20/2024 10:34 [facility] Platelets 269 130 - 400 K/mcL LAB HEMETOLOGY METHOD 09/20/2024 10:34 AM EDT [facility] MPV 11.5(H) 7.0 - 11.0 FL LAB HEMETOLOGY METHOD 09/20/2024 10:34 AM EDT [facility] NRBC 0.0 <1.0 % LAB HEMETOLOG METHOD 09/20/2024 10:34 AM EDT [facility] NRBC Absolute 0.00 <0.10 K/mcL LAB HEMETOLOGY METHOD 09/20/2024 10:34 AM EDT [facility] Blood Venous blood specimen / Unknown Venipuncture / Unknown 09/20/2024 7:49 AM EDT 09/20/2024 10:04 AM EDT Erickson Melton MD LAB BLOOD ORDERABLES Final Result [facility] [address] [place] [address], documented in this encounter Visit Diagnoses Diagnosis [...] documented as of this encounter Care Teams Pug Mill Operator Relationship Specialty Start Date End Date Erickson Melton MD [address] [place] [address] PCP - General Internal Medicine 09/13/24 documented as of this encounter
--- OUTSIDE RECORDS SUMMARY | 2024-11-07 14:53 | XMS_ITS | Encounter Summary ---
Author Organization [facility] Address [address] [place] [address] Care Team Providers Care Waste Baler Name Role Phone Erickson Melton MD Primary Care Provider [phone]- [phone] Encounter Details Date Type Department Care Team (Late st Contact Info) Description 10/17/2024 Lab Requisition [facility] - Main Lab [address] [facility] [place] [address] Erickson Melton MD [address] [place] [address] Pneumonia, unspecified organism; Anemia, unspecified Social History [...] care for your loved ones. For example, assistant child care teacher or elderly care for an older [...] mmol/L LAB CHEMISTRY METHOD 10/18/2024 11:47 AM [facility] Potassium 4.0 3.5 - 5.5 mmol/L LAB CHEMISTRY METHOD 10/18/2024 11:47 AM [facility] Chloride 99 96 - 110 mmol/L LAB CHEMISTRY METHOD 10/18/2024 11:47 AM [facility] CO2 35(H) 21 - 32 mmol/L LAB CHEMISTRY METHOD 10/18/2024 11:47 AM [facility] Anion Gap 5 3 - 11 LAB CHEMISTRY METHOD 10/18/2024 11:47 AM [facility] Glucose 76 70 - 100 mg/dL LAB CHEMISTRY METHOD 10/18/2024 11:47 AM [facility] BUN 19 5 - 25 mg/dL LAB CHEMISTRY METHOD 10/18/2024 11:47 AM [facility] Creatinine 0.71 0.50 - 1.10 mg/dL LAB CHEMISTRY METHOD 10/18/2024 11:47 AM [facility] eGFR 95 >=60 mL/min/1. 73m2 LAB CHEMISTRY METHOD 10/18/2024 11:47 AM [facility] Comment:Calculation based on the??Chronic Kidney Disease Epidemiology Collaboration (CKD-EPI) equation refit??without adjustment for race. BUN/Creatinine Ratio 26.8 LAB CHEMISTRY METHOD 10/18/2024 11:47 AM [facility] Calcium 9.4 8.5 - 10.5 mg/dL LAB CHEMISTRY METHOD 10/18/2024 11:47 AM [facility] Blood Venous blood specimen / Unknown Venipuncture / Unknown 10/18/2024 8:38 AM EDT 10/18/2024 10:05 AM EDT Erickson Melton MD LAB BLOOD ORDERABLES Final Result [facility] [address] [place] [address], * (ABNORMAL) Complete blood count (10/18/2024 8:38 AM EDT) WBC 2.4(L) 4.8 - 10.8 K/mcL LAB HEMETOLOGY METHOD 10/18/2024 11:22 AM EDT [facility] RBC 3.60(L) 3.80 - 4.80 M/mcL LAB HEMETOLOGY METHOD 10/18/2024 11:22 AM [facility] Hemoglobin 12.3 11.5 - 16.0 g/dL LAB HEMETOLOGY METHOD 10/18/2024 11:22 AM [facility] Hematocrit 39.0 35.0 - 47.0 % LAB HEMETOLOGY METHOD 10/18/2024 11:22 AM [facility] MCV 107.7(H) 79.0 - 98.0 FL LAB HEMETOLOGY METHOD 10/18/2024 11:22 AM [facility] MCH 34.0(H) 27.0 - 32.0 pcg LAB HEMETOLOGY METHOD 10/18/2024 11:22 AM [facility] MCHC 31.5(L) 32.0 - 37.0 g/dL LAB HEMETOLOGY METHOD 10/18/2024 11:22 AM [facility] RDW 17.2(H) 11.0 - 15.0 % LAB HEMETOLOGY METHOD 10/18/2024 11:22 AM [facility] Platelets 238 130 - 400 K/mcL LAB HEMETOLOGY METHOD 10/18/2024 11:22 AM [facility] MPV 10.8 7.0 - 11.0 FL LAB HEMETOLOGY METHOD 10/18/2024 11:22 AM EDT [facility] NRBC 0.0 <1.0 % LAB HEMETOLOGY METHOD 10/18/2024 11:22 AM EDT [facility] NRBC Absolute 0.00 <0.10 K/mcL LAB HEMETOLOGY METHOD 10/18/2024 11:22 AM EDT [facility] Blood Venous blood specimen / Unknown Venipuncture / Unknown 10/18/2024 8:38 AM EDT 10/18/2024 10:05 AM EDT us Erickson Melton MD LAB BLOOD ORDERABLES Final Result [facility] [address] [place] [address], documented in this encounter Visit Diagnoses Diagnosis Pneumonia, unspecified organism Anemia, unspecified documented in this encounter Additional Health Concerns Infection Onset Date Last Indicated Resolved Time C. difficile Comment:Tested (+) at [facility]; started on PO ABT 09/29/24 NL 09/29/2024 10/26/2024 documented as of this encounter Care Teams Waste Baler Relationship Specialty Start Date End Date Erickson Melton MD [address] [place] [id number] PCP - General Internal Medicine 09/13/24 documented as of this encounter
--- OUTSIDE RECORDS SUMMARY | 2024-11-07 14:54 | XMS_ITS | Clinical Summary ---
Author Organization [address] Address [address] [place] [phone] Phone Care Team Providers Care Elastic Yarn Twister Helper Name Role Phone Erickson Melton MD Primary Care Provider [phone] Allergies Active Allergy Reactions Criticality Noted Date Comments Amoxicillin Unknown 09/30/2024 Patient has tolerated cefdinir in 2024 at [facility] and also ceftriaxone at [facility] 2024 Clindamycin Unknown 09/30/2024 Sulfa (Sulfonamide Antibiotics) 09/30/2024 Sulfamethoxazole Unknown 09/30/2024 Trimethoprim Unknown 09/30/2024 Medications Synthroid 137 mcg tablet Take 1 tablet (137 mcg total) via g-tube 1 (one) time each day before breakfast. 12/14/2017 Active traZODone (DESYREL) 50 mg tablet Take 1 tablet (50 mg total) by mouth at bedtime as needed for sleep. 01/23/2023 Active aspirin 81 mg EC tablet Take [...] (300 mg total) via g-tube at bedtime. 10/04/2024 Active midodrine (PROAMATINE) 5 mg tablet Take 2 tablets (10 mg total) via g-tube 3 (three) times a day before meals. 10/04/2024 Active vancomycin 50 mg/mL recon soln Take 2.5 mL by mouth 4 (four) times a day for 11 days. 10/04/2024 10/16/19 25 multivitamin with iron-minerals 9 mg iron/15 mL liquid Take 15 mL via g-tube 1 (one) time each day. 10/05/2024 11/05/19 25 guaiFENesin (ROBITUSSIN) 100 mg/5 mL liquid Take 10 mL (200 mg total) by mouth 3 (three) times a day if needed for cough for up to 10 days. 120 mL 10/04/2024 10/15/19 25 Active Problems Problem Noted Date Diagnosed Date Pneumonia of both lower lobes due to infectious organism 10/01/2024 Resolved Problems Problem Noted Date Diagnosed Date Resolved Date Fever 10/01/2024 10/01/2024 Encounters Date Type Department Care Team Description 10/31/2024 Lab Requisition [facility] [address] [place] [phone] Erickson Melton MD Pneumonia, unspecified organism; Anemia, unspecified 10/27/2024 Lab Requisition [facility] [address] [place] [phone] Erickson Melton MD Enterocolitis due to Clostridium difficile, not specified as recurrent 10/26/2024 Lab Requisition [facility] [address] [place] [phone] Erickson Melton MD Diarrhea, unspecified 10/24/2024 Lab Requisition [facility] [address] [place] [phone] Erickson Melton MD Pneumonia, unspecified organism; Anemia, unspecified 10/17/2024 Lab Requisition [facility] [address] [place] [phone] Erickson Melton MD Pneumonia, unspecified organism; Anemia, unspecified 10/08/2024 11:59 PM EDT Anesthesia Event [facility] OR [address] [place] [address] [place] [phone] Martin Faria CRNA 10/08/2024 12:44 PM EDT Anesthesia Event [facility] [address] [place] [phone] Denilson Sharpe MD 10/05/2024 3:50 PM EDT - 10/10/2024 4:30 PM EDT Hospital Encounter [facility] [address] [place] [phone] Bayron Dias MD Mohani, Priya, MD Seralathan, Manikandan, MD Rasul, Yar M, MD Pneumonia of both lower lobes due to infectious organism (Primary Dx); 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[facility] V24, [facility] V28) Discharge Disposition: Jail Facility 10/03/2024 Lab Requisition [facility] Lab [address] [place] [address] Erickson Melton MD Anemia, unspecified; Hypothyroidism, unspecified; Other seizures ([facility] V24, [facility] V28) 09/30/2024 9:22 PM EDT - 10/04/2024 2:46 PM EDT Hospital Encounter [facility] [address] [place] [phone] Madelyn Woodard MD Maduakor, Emmanuel C, MD Japaridze, Anna, MD Kokosadze, Estate, MD Pneumonia of both lower lobes due to infectious organism (Primary Dx); Sepsis with acute hypoxic respiratory failure without septic shock, due to unspecified organism ([facility] V24, [facility] V28); C. difficile colitis Discharge Disposition: Jail Facility 09/26/2024 Lab Requisition [facility] [address] [place] [phone] Erickson Melton MD Anemia, unspecified; Hypothyroidism, unspecified; Other seizures ([facility] V24, [facility] V28) 09/19/2024 Lab Requisition [facility] [address] [place] [address] Erickson Melton MD Anemia, unspecified; Hypothyroidism, unspecified; Other seizures ([facility] V24, [facility] V28) 09/19/2024 Lab Requisition [facility] [address] [place] [address] Erickson Melton MD Other seizures ([facility] V24, [facility] V28); Hypothyroidism, unspecified 09/13/2024 Lab Requisition [facility] [address] [place] [phone] Erickson Melton MD Anemia, unspecified; Hypothyroidism, unspecified; Other seizures ([facility] V24, [facility] V28) from Last 3 Months Surgical History Surgery Date Site/Laterality Comments TUBAL LIGATION GASTROTOMY CATARACT EXTRACTION Medical History Medical History Date Comments Down syndrome Dementia ([facility] V24, [facility] V28) CVA (cerebral vascular accident) ([facility] V24, [facility] V28) Hypothyroidism Aspiration pneumonia ([facility] V24, [facility] V28) C. difficile colitis Social History Tobacco [...] for your loved ones. For example, child protective investigator or elderly care for an older adult? [...] 36.3 ??C (97.3 ??F) 10/10/2024 7:28 AM E DT Respiratory Rate 18 10/10/2024 2:15 PM EDT [...] Procedure Name Priority Date/Time Associated Diagnosis Comments BASIC METABOLIC PANEL Routine 11/01/2024 6:41 AM EDT Pneumonia, unspecified organism Anemia, unspecified COMPLETE BLOOD COUNT Routine 11/01/2024 6:41 AM EDT Pneumonia, unspecified organism Anemia, unspecified BASIC METABOLIC PANEL Routine 10/27/2024 6:46 AM EDT Enterocolitis due to Clostridium difficile, not specified as recurrent COMPLETE BLOOD COUNT Routine 10/27/2024 6:46 AM EDT Enterocolitis due to Clostridium difficile, not specified as recurrent CLOSTRIDIUM DIFFICILE TOXIN Routine 10/26/2024 12:00 AM [...] from Last 3 Months Results * (ABNORMAL) Complete blood count (11/01/2024 6:41 AM EDT) Only the most recent of8 resultswithin the time period is included. WBC 9.2 4.8 - 10.8 K/mcL LAB HEMETOLOGY METHOD 11/01/2024 10:57 AM [facility] RBC 3.90 3.80 - 4.80 M/mcL LAB HEMETOLOGY METHOD 11/01/2024 10:57 AM [facility] Hemoglobin 13.5 11.5 - 16.0 g/dL LAB HEMETOLOGY METHOD 11/01/2024 10:57 AM [facility] Hematocrit 43.3 35.0 - 47.0 % LAB HEMETOLOGY METHOD 11/01/2024 10:57 AM [facility] MCV 110.7(H) 79.0 - 98.0 FL LAB HEMETOLOGY METHOD 11/01/2024 10:57 AM [facility] MCH 34.5(H) 27.0 - 32.0 pcg LAB HEMETOLOGY METHOD 11/01/2024 10:57 AM [facility] MCHC 31.2(L) 32.0 - 37.0 g/dL LAB HEMETOLOGY METHOD 11/01/2024 10:57 AM [facility] RDW 16.9(H) 11.0 - 15.0 % LAB HEMETOLOGY METHOD 11/01/2024 10:57 AM [facility] Platelets 210 130 - 400 K/mcL LAB HEMETOLOGY METHOD 11/01/2024 10:57 AM [facility] MPV 11.2(H) 7.0 - 11.0 FL LAB HEMETOLOGY METHOD 11/01/2024 10:57 AM [facility] NRBC 0.0 <1.0 % LAB HEMETOLOGY METHOD 11/01/2024 10:57 AM EDT [facility] NRBC Absolute 0.00 <0.10 K/mcL LAB HEMETOLOGY METHOD 11/01/2024 10:57 AM EDT [facility] Blood Venous blood specimen / Unknown Venipuncture / Unknown 11/01/2024 6:41 AM EDT 11/01/2024 10:36 AM EDT us Erickson Melton MD LAB BLOOD ORDERABLES Final Result [facility] [address] [place] [address], [place] [phone] * (ABNORMAL) Basic metabolic panel (11/01/2024 6:41 AM EDT) Only the most recent of15 resultswithin the time period is included. Sodium 141 133 - 145 mmol/L LAB CHEMISTRY METHOD 11/01/2024 11:26 AM [facility] Potassium 4.1 3.5 - 5.5 mmol/L LAB CHEMISTRY METHOD 11/01/2024 11:26 AM [facility] Chloride 102 96 - 110 mmol/L LAB CHEMISTRY METHOD 11/01/2024 11:26 AM [facility] CO2 34(H) 21 - 32 mmol/L LAB CHEMISTRY METHOD 11/01/2024 11:26 AM [facility] Anion Gap 5 3 - 11 LAB CHEMISTRY METHOD 11/01/2024 11:26 AM [facility] Glucose 86 70 - 100 mg/dL LAB CHEMISTRY METHOD 11/01/2024 11:26 AM [facility] BUN 23 5 - 25 mg/dL LAB CHEMISTRY METHOD 11/01/2024 11:26 AM [facility] Creatinine 0.74 0.50 - 1.10 mg/dL LAB CHEMISTRY METHOD 11/01/2024 11:26 AM EDT [facility] eGFR 90 >=60 mL/min/1. 73m2 LAB CHEMISTRY METHOD 11/01/2024 11:26 AM EDT [facility] Comment:Calculation based on the??Chronic Kidney Disease Epidemiology Collaboration (CKD-EPI) equation refit??without adjustment for race. BUN/Creatinine Ratio 31.1 LAB CHEMISTRY METHOD 11/01/2024 11:26 AM EDT [facility] Calcium 8.6 8.5 - 10.5 mg/dL LAB CHEMISTRY METHOD 11/01/2024 11:26 AM EDT [facility] Blood Venous blood specimen / Unknown Venipuncture / Unknown 11/01/2024 6:41 AM EDT 11/01/2024 10:40 AM EDT us Erickson Melton MD LAB BLOOD ORDERABLES Final Result [facility] [address] [place] [address], * (ABNORMAL) Clostridium difficile toxin (10/26/2024 12:00 AM EDT) Pathologist [facility] Clostridium difficile GDH Antigen Positive( A) Negative 10/26/2024 4:33 PM EDT [facility] C difficile Toxins A+B, EIA Positive( AA) Negative 10/26/2024 4:33 PM EDT [facility] Comment: CRITICAL RESULT POSITIVE FOR TOXIN PRODUCING CLOSTRIDIOIDES DIFFICILE, NO ADDITIONAL TESTING IS NECESSARY. REPEAT SAMPLES SHOULD NOT BE SUBMITTED FOR TEST OF CURE. Stool Rectum structure / Unknown 10/26/2024 10/26/2024 3:36 PM EDT us Erickson Melton MD LAB MICROBIOLOGY - GENERAL ORDERABLES Final Result [facility] [address] [place] [address], [place] [phone] * ECG-Annotated (10/11/2024) us Provider Onbase MD ECG ORDERABLES Final Result * (ABNORMAL) Manual differential (10/10/2024 6:46 AM EDT) Only the most recent of2 resultswithin the time period is included. Neutrophils % 70.0 % LAB HEMETOLOGY METHOD 10/10/2024 7:51 AM EDT [facility] Lymphocytes % 22.0 % LAB [facility]OLOGY [facility] Monocytes % 5.0 % LAB HEMETOLOGY METHOD 10/10/2024 7:51 AM [facility] Eosinophils % 2.0 % LAB HEMETOLOGY METHOD 10/10/2024 7:51 AM EDT [facility] Basophils % 1.0 % LAB HEMETOLOGY METHOD [facility]24 7[facility] Metamyelocytes % 1.0(H) % LAB HEMETOLOGY METHOD 10/10/2024 7:51 AM [facility] Neutrophils Absolute Manual 2.94 1.50 - 7.00 K/mcL LAB HEMETOLOGY METHOD 10/10[facility]2024 7[facility] Lymphocytes Absolute 0.92(L) 1.00 - 5.00 K/mcL LAB HEMETOLOGY METHOD 10/10/2024 7[facility] Monocytes Absolute Manual 0.21 0.20 - 1.00 K/mcL LAB HEMETOLOGY METHOD 10/10/2024 7:51 AM [facility] Eosinophils Absolute Manual 0.08 0.00 - 0.50 K/mcL LAB HEMETOLOGY METHOD 10/10/2024 7:51 AM EDT [facility] Basophils Absolute Manual 0.04 0.00 - 0.20 K/[facility] LAB HEMETOLOGY METHOD 10/10/2024 7:51 AM EDT [facility] Metamyelocytes Absolute Manual 0.04(H) 0.00 - 0.00 K/[facility] LAB HEMETOLOGY METHOD 10/10/2024 7:51 AM EDT [facility] Rbc Morphology See comment( A) Consistent with indices, Normal for LAB HEMETOLOGY METHOD 10/10/2024 7:51 AM EDT [facility] Comment:RBC: Morphology agre es with CBC Platelet Morphology - WAM See Note(A) Normal LAB HEMETOLOGY METHOD 10/10/2024 7:51 AM EDT [facility] Comment:PLT: Normal Blood Venous blood specimen / Unknown Venipuncture / Unknown 10/10/2024 6:46 AM EDT 10/10/2024 7:00 AM EDT uKnal Jade MD LAB BLOOD ORDERABLES Fi nal Result [facility] [address] [place] [address], * (ABNORMAL) CBC auto differential (10/10/2024 6:46 AM EDT) Only the most recent of10 resultswithin the time period is included. WBC 4.2(L) 4.8 - 10.8 K/mcL LAB HEMETOLOGY METHOD 10/10/2024 7:51 AM EDT [facility] RBC 3.20(L) 3.80 - 4.80 M/mcL LAB HEMETOLOGY METHOD 10/10/2024 7:51 AM EDT [facility] Hemoglobin 10.7(L) 11.5 - 16.0 g/dL LAB HEMETOLOGY METHOD 10/10/2024 7:51 AM EDT [facility] Hematocrit 34.0(L) 35.0 - 47.0 % LAB HEMETOLOGY METHOD 10/10/2024 7:51 AM EDT [facility] MCV 105.9(H) 79.0 - 98.0 FL LAB HEMETOLOGY METHOD 10/10/2024 7:[facility] MCH 33.3(H) 27.0 - 32.0 pcg LAB HEMETOLOGY METHOD 10/10/2024 7:51 AM EDT [facility] MCHC 31.5(L) 32.0 - 37.0 g/dL LAB HEMETOLOGY METHOD 10/10/2024 7:51 AM [facility] RDW 16.5(H) 11.0 - 15.0 % LAB HEMETOLOGY METHOD 10/10/2024 7:[facility] Platelets 233 130 - 400 K/mcL LAB HEMETOLOGY METHOD 10/10/2024 7:51 AM EDT [facility] MPV 10.5 7.0 - 11.0 FL LAB HEMETOLOGY METHOD 10/10/2024 7:51 AM [facility] NRBC 0.0 <1.0 % LAB HEMETOLOGY METHOD 10/10/2024 7:51 AM [facility] NRBC Absolute 0.00 <0.10 K/mcL LAB HEMETOLOGY METHOD 10/10/2024 7:51 AM [facility] Blood Venous blood specimen / Unknown Venipuncture / Unknown 10/10/2024 6:46 AM EDT 10/10/2024 7:00 AM EDT Kunal Jade MD LAB BLOOD ORDERABLES Fi nal Result [facility] [address] [place] [address], * Phosphorus (10/10/2024 6:46 AM EDT) Only the most recent of4 resultswithin the time period is included. Phosphorus 3.5 2.5 - 4.5 mg/dL LAB CHEMISTRY METHOD 10/10/2024 7:38 AM EDT [facility] Blood Venous blood specimen / Unknown Venipuncture / Unknown 10/10/2024 6:46 AM EDT 10/10/2024 7:00 AM EDT us Kunal Jade MD LAB BLOOD ORDERABLES Fi nal Result Performing Organization Address [facility] de Phone Number [facility] [address] [place] [address], * Magnesium (10/10/2024 6:46 AM EDT) Only the most recent of6 resultswithin the time period is included. Magnesium 1.9 1.9 - 2.6 mg/dL LAB CHEMISTRY METHOD 10/10/2024 7:38 AM EDT [facility] Blood Venous blood specimen / Unknown Venipuncture / Unknown 10/10/2024 6:46 AM EDT 10/10/2024 7:00 AM EDT Kunal Jade MD LAB BLOOD ORDERABLES Fi nal Result Performing Organization Address City/[facility]/ZIP Co de Phone Number [facility] [address] [place] [address], [place] [phone] * TH AN ENDOTRACHEAL(NO CHARGE) (10/08/2024 2:30 PM EDT) Narrative Martin Faria CRNA - 10/08/2024 2:30 PM EDT Martin Faria CRNA ? 10/08/2024 ??2:35 PM General Information and Staff Patient location during procedure: OR Performed: resident/QUICK PRINT OPERATOR/CAA Performed by: Martin Faria CRNA Authorized by: [...] Signed Date: 10/08/2024 14:11 ET Workstation ID: [id number] Transcribed By: Self Edit Transcribed Date: 10/08/2024 14:04 ET Narrative 10/08/2024 2:11 PM EDT Indication: Dislodgment of gastrostomy tube Procedure: Written informed consent obtained from the patient's healthcare proxy. Anesthesia services were utilized for sedation during the procedure. Gastric tube site prepped and draped sterilely. 7 Cameroonian dilator placed into the tract and contrast injected demonstrating opacification of the tract and gastric lumen. Short Amplatz wire advanced into the gastric lumen. Tract dilated up to 20 Cameroonian and placement of a 18 Cameroonian gastric tube. 10 mL of sterile water [...] tube site prepped and draped sterilely. 7 Cameroonian dilator placedinto the tract and contrast injected demonstrating opacification of thetract and gastric lumen. Short Amplatz wire advanced into the gastriclumen. Tract dilated up to 20 Cameroonian and placement of a 18 Cameroonian gastrictube. 10 mL of sterile water injected [...] Signed Date: 10/08/2024 14:11 ET Workstation ID: [id number] Transcribed By: Self Edit Transcribed Date: 10/08/2024 14:04 ET Carmita RENTERIA IMG IR PROCEDURES Final Result * (ABNORMAL) Oxcarbazepine level (10/08/2024 6:21 AM EDT) Only the most recent of2 resultswithin the time period is included. Oxcarbazepine 3.3(L) 10 - 35 ug/mL 10/10/2024 11:53 AM EDT [facility] Comment: If applicable, any drug confirmation testing reported here was developed and the performance characteristics determined by [facility]. This confirmation testing has not been cleared or approved by the FDA. The laboratory is regulated under CLIA as qualified to perform high-complexity testing. This test is used for patient testing purposes. It should not be regarded as investigational or for research. Test performed at [facility], [address] , [place], [place] ??[address] ? [phone] Yessy Coulter MD, PhD - Medical Unit Secretary Blood Venous blood specimen / Unknown Venipuncture / Unknown 10/08/2024 6:21 AM EDT 10/08/2024 6:47 AM EDT Zelalem RENTERIA LAB BLOOD ORDERABLES Final Res ult [facility] [address] [place] [address] * SST tube (10/08/2024 6:14 AM EDT) Extra Tube Hold for add-ons. 10/08/2024 8:01 AM EDT [facility] Comment:Auto resulted. Blood Venous blood specimen / Unknown Venipuncture / Unknown 10/08/2024 6:14 AM EDT 10/08/2024 6:49 AM EDT Kunal Jade MD LAB BLOOD ORDERABLES Fi nal Result [facility] [address] [place] [address], [place] [phone] * Lavender tube (10/08/2024 6:14 AM EDT) Extra Tube Hold for add-ons. 10/08/2024 8:01 AM EDT [facility] Comment:Auto resulted. Blood Venous blood specimen / Unknown Venipuncture / Unknown 10/08/2024 6:14 AM EDT 10/08/2024 6:49 AM EDT Kunal Jade MD LAB BLOOD ORDERABLES Fi nal Result [facility] [address] [place] [address], [place] [phone] * XR Abdomen 1 View (10/06/2024 3:37 PM EDT) Anatomical Region Laterality Modality Body Radiographic Caridad ging 10/06/2024 4:36 PM EDT Impressions 10/06/2024 4:37 PM EDT FINDINGS/IMPRESSION: Limited examination status post contrast injection to percutaneous enteric tube demonstrates opacification of the stomach. -------- FINAL REPORT -------- Dictated By: Sima Lawrence Dictated Date: 10/06/2024 16:36 ET Assigned Physician: Sima Lawrence Reviewed and Electronically Signed By: Sima Lawrence Signed Date: 10/06/2024 16:37 ET Workstation ID: [id number] Transcribed By: Self Edit Transcribed Date: 10/06/2024 [...] Signed Date: 10/06/2024 16:37 ET Workstation ID: [id number] Transcribed By: Self Edit Transcribed Date: 10/06/2024 16:36 ET Anna RENTERIA IMG XR PROCEDURES Final Result * Urinalysis with reflex microscopic and culture (10/06/2024 1:13 PM EDT) Only the most recent of2 resultswithin the time period is included. Specific [place] Urine 1.018 1.003 - 1.030 LAB URINALYSIS - AUTOMATED METHOD 10/06/2024 1:56 PM EDT [facility] pH, Urine 7.5 5.0 - 8.0 pH LAB URINALYSIS - AUTOMATED METHOD 10/06/2024 1:56 PM EDT [facility] Leukocytes, Urine Negative Negative LAB URINALYSIS - AUTOMATED METHOD 10/06/2024 1:56 PM [facility] Nitrite, Urine Negative Negative LAB URINALYSIS - AUTOMATED METHOD 10/06/2024 1:56 PM [facility] Protein, Urine Negative <=Trace mg/dL LAB URINALYSIS - AUTOMATED METHOD 10/06/2024 1:56 PM [facility] Glucose, Urine Negative Negative mg/dL LAB URINALYSIS - AUTOMATED METHOD 10/06/2024 1:56 PM [facility] Ketones, Urine Negative Negative mg/dL LAB URINALYSIS - AUTOMATED METHOD 10/06/2024 1:56 PM [facility] Urobilinogen, Urine 0.2 0.2 - 1.0 mg/dL LAB URINALYSIS - AUTOMATED METHOD 10/06/2024 1:56 PM [facility] Bilirubin, Urine Negative Negative LAB URINALYSIS - AUTOMATED METHOD 10/06/2024 1:56 PM [facility] Blood, Urine Negative Negative LAB URINALYSIS - AUTOMATED METHOD 10/06/2024 1:56 PM [facility] Urine Urine specimen obtained by clean catch procedure / Unknown Non-blood Collection / Unknown 10/06/2024 1:13 PM EDT 10/06/2024 1:45 PM EDT Anna RENTERIA LAB URINE ORDERABLES Final Resul t Performing Organization Address City/[facility]/ZIP Co de Phone Number [facility] [address] [place] [address], [place] [phone] * Gonsalves urine culture tube (10/06/2024 1:13 PM EDT) Only the most recent of2 resultswithin the time period is included. [facility] Extra Tube Hold for add-ons. 10/06/2024 3:02 PM EDT [facility] Comment:Auto resulted. Urine Urine specimen obtained by clean catch procedure / Unknown Non-blood Collection / Unknown 10/06/2024 1:13 PM EDT 10/06/2024 1:45 PM EDT Anna RENTERIA LAB URINE ORDERABLES Final Resul t Performing Organization Address [facility] Co de Phone Number [facility] [address] [place] [address], [place] [phone] * MRSA molecular study (10/06/2024 2:10 AM EDT) Only the most recent of5 resultswithin the time period is included. [facility] MRSA Screen PCR Not Detected Not Detected LAB MICROBIOLOGY METHOD 10/06/2024 8:38 AM EDT [facility] Swab Both anterior nares / Unknown Non-blood Collection / Unknown 10/06/2024 2:10 AM EDT 10/06/2024 2:19 AM EDT Nadege RENTERIA LAB MICROBIOLOGY - GENE RAL ORDERABLES Final Result Performing Organization Address City/[facility]/ZIP Co de Phone Number [facility] [address] [place] [address], [place] [phone] * Troponin I high sensitivity (10/05/2024 7:01 PM EDT) Only the most recent of2 resultswithin the time period is included. [facility] High Sensitivity Troponin I 52 <=54 ng/L LAB CHEMISTRY METHOD 10/05/2024 7:53 PM EDT [facility] Blood Venous blood specimen / Unknown Venipuncture / Unknown 10/05/2024 7:01 PM EDT 10/05/2024 7:25 PM EDT Narrative [facility] - 10/05/2024 7:53 PM EDT High levels of biotin in samples may falsely decrease hsTroponin values. ??Use caution when interpreting hsTroponin results in patients taking biotin who exhibit renal impairment (eGFR <60) or in patients taking more than 20 mg/day of biotin. us Peewee RENTERIA LAB BLOOD ORDERABLES Final Re sult [facility] [address] [place] [address], * XR Chest 1 View (10/05/2024 5:27 [...] Signed Date: 10/06/2024 11:13 ET Workstation ID: [id number] Transcribed By: Self Edit Transcribed Date: 10/06/2024 [...] Signed Date: 10/06/2024 11:13 ET Workstation ID: [id number] Transcribed By: Self Edit Transcribed Date: 10/06/2024 11:13 ET us Peewee RENTERIA IMG XR PROCEDURES Final Resul [...] of3 resultswithin the time period is included. [facility] Ventricular Rate ECG 62 BPM GEMUSE Atrial Rate 62 BPM GEMUSE P-R Interval 202 ms GEMUSE QRS Duration 110 ms GEMUSE Q-T Interval 404 ms GEMUSE QTc 410 ms GEMUSE P Wave [place] 16 degrees GEMUSE R [place] -33 degrees GEMUSE T [place] 2 degrees GEMUSE ECG Interpretation Normal sinus [...] of2 resultswithin the time period is included. [facility] Adenovirus Detection by PCR Not Detected Not Detected LAB MICROBIOLOGY METHOD 10/05/2024 5:43 PM EDT [facility] Influenza A PCR Not Detected Not Detected LAB MICROBIOLOGY METHOD 10/05/2024 5:43 PM EDT [facility] Influenza B PCR Not Detected Not Detected LAB MICROBIOLOGY METHOD 10/05/2024 5:43 PM EDT [facility] Coronavirus 229E Not Detected Not Detected LAB MICROBIOLOGY METHOD 10/05/2024 5:43 PM EDT [facility] Coronavirus HKU1 Not Detected Not Detected LAB MICROBIOLOGY METHOD 10/05/2024 5:43 PM EDT [facility] Coronavirus OC43 Not Detected Not Detected LAB MICROBIOLOGY METHOD 10/05/2024 5:43 PM EDT [facility] Coronavirus NL63 Not Detected Not Detected LAB MICROBIOLOGY METHOD 10/05/2024 5:43 PM EDT [facility] Parainfluenza Virus 1 Not Detected Not Detected LAB MICROBIOLOGY METHOD 10/05/2024 5:43 PM EDT [facility] Parainfluenza Virus 2 Not Detected Not Detected LAB MICROBIOLOGY METHOD 10/05/2024 5:43 PM EDT [facility] Parainfluenza Virus 3 Not Detected Not Detected LAB MICROBIOLOGY METHOD 10/05/2024 5:43 PM EDT [facility] Parainfluenza Virus 4 Not Detected Not Detected LAB MICROBIOLOGY METHOD 10/05/2024 5:43 PM EDT [facility] RSV PCR Not Detected Not Detected LAB MICROBIOLOGY METHOD 10/05/2024 5:43 PM EDT [facility] Human Metapneumovirus A and B Not Detected Not Detected LAB MICROBIOLOGY METHOD 10/05/2024 5:43 PM EDT [facility] Rhinovirus/Entero virus Not Detected Not Detected LAB MICROBIOLOGY METHOD 10/05/2024 5:43 PM EDT [facility] Bordetella pertussis Not Detected Not Detected LAB MICROBIOLOGY METHOD 10/05/2024 5:43 PM EDT [facility] Bordetella parapertussis Not Detected Not Detected LAB MICROBIOLOGY METHOD 10/05/2024 5:43 PM EDT [facility] Mycoplasma pneumo by PCR Not Detected Not Detected LAB MICROBIOLOGY METHOD 10/05/2024 5:43 PM EDT [facility] Chlamydia pneumoniae Not Detected Not Detected LAB MICROBIOLOGY METHOD 10/05/2024 5:43 PM EDT [facility] SARS COV-2 Not Detected Not Detected LAB MICROBIOLOGY METHOD 10/05/2024 5:43 PM EDT [facility] Swab Both anterior nares / Unknown Non-blood Collection / Unknown 10/05/2024 4:18 PM EDT 10/05/2024 4:39 PM EDT Narrative [facility] - 10/05/2024 5:43 PM EDT Testing was performed using the [employer] Respiratory Pathogen PCR Assay. All results must [...] OR DERABLES Final Result Performing Organization Address City/[facility]/ZIP Co de Phone Number [facility] [address] [place] [address], [place] [phone] * (ABNORMAL) POCT Glucose, blood (10/04/2024 7:26 AM EDT) Only the most recent of10 resultswithin the time period is included. Glucose POCT 123(H) 70 - 100 mg/dL 10/04/2024 7:27 AM EDT [facility] Blood Capillary blood specimen / Unknown 10/04/2024 7:26 AM EDT 10/04/2024 7:28 AM EDT Rolanda Granados MD LAB POINT OF CARE TE ST DOCKED DEVICE UNSOLICITED RESULTS Final Result Performing Organization Address [facility]/ZIP Co de Phone Number [facility] [address] [place] [address], [place] [phone] * Lactate (10/01/2024 7:00 AM EDT) Lactate 2.0 0.4 - 2.0 mmol/L LAB CHEMISTRY METHOD 10/01/2024 8:34 AM EDT [facility] Blood Venous blood specimen / Unknown Venipuncture / Unknown 10/01/2024 7:00 AM EDT 10/01/2024 7:38 AM EDT Zelalem RENTERIA LAB BLOOD ORDERABLES Final Res ult Performing Organization Address [facility] Co de Phone Number [facility] [address] [place] [address], [place] [phone] * (ABNORMAL) Lactate, with reflex (10/01/2024 2:10 AM EDT) Only the most recent of2 resultswithin the time period is included. LACTIC ACID 2.2(H) 0.4 - 2.0 mmol/L LAB CHEMISTRY METHOD 10/01/2024 2:52 AM EDT [facility] Blood Venous blood specimen / Unknown Venipuncture / Unknown 10/01/2024 2:10 AM EDT 10/01/2024 2:26 AM EDT Madelyn Woodard MD LAB BLOOD ORDERABLES Fin al Result Performing Organization Address [facility]/ZIP Co de Phone Number [facility] [address] [place] [address], [place] [phone] * CT Chest wo Contrast (10/01/2024 1:59 [...] at 5 days 10/06/2024 3:09 AM EDT [facility] Blood Venous blood specimen / Unknown Venipuncture / Unknown 09/30/2024 11:46 PM EDT 09/30/2024 11:51 PM EDT Madelyn Woodard MD LAB MICROBIOLOGY - GENER AL ORDERABLES Final Result Performing Organization Address [facility]/ZIP Co de Phone Number [facility] [address] [place] [address], * Legionella antigen urine, EIA (09/30/2024 10:57 PM EDT) Legionella Antigen, Ur Negative Negative 10/01/2024 9:25 AM EDT [facility] Urine Urine specimen obtained by clean catch procedure / Unknown Non-blood Collection / Unknown 09/30/2024 10:57 PM EDT 09/30/2024 11:40 PM EDT Narrative [facility] - 10/01/2024 9:25 AM EDT Negative for Legionella pneumophilia serogroup 1 antigen. This presumptive result suggests no current or recent infection due to L. pneumophilia serogroup 1. Culture is recommended if Legionella infection is till suspected, as other serogroups and species of Legionella are not detected by this test. Zelalem RENTERIA LAB URINE ORDERABLES Final Res ult Performing Organization Address [facility] Co de Phone Number [facility] [address] [place] [address], * Culture urine (09/30/2024 10:57 PM EDT) Culture, Urine No growth 10/02/2024 11:03 AM EDT [facility] Urine Urine specimen obtained by clean catch procedure / Unknown Non-blood Collection / Unknown 09/30/2024 10:57 PM EDT 09/30/2024 11:40 PM EDT Carline RENTERIA LAB MICROBIOLOGY - GEN ERAL ORDERABLES Final Result Performing Organization Address [facility]/ZIP Co de Phone Number [facility] [address] [place] [address], * Lipase (09/30/2024 10:13 PM EDT) Lipase 22 13 - 75 unit/L LAB CHEMISTRY METHOD 09/30/2024 10:50 PM EDT [facility] Blood Venous blood specimen / Unknown Venipuncture / Unknown 09/30/2024 10:13 PM EDT 09/30/2024 10:24 PM EDT us Madelyn Woodard MD LAB BLOOD ORDERABLES Fin al Result [facility] [address] [place] [address], * (ABNORMAL) Comprehensive metabolic panel (09/30/2024 10:13 PM EDT) Only the most recent of3 resultswithin the time period is included. Pathologist [facility] [place] Sodium 140 133 - 145 mmol/L LAB CHEMISTRY METHOD 09/30/2024 10:50 PM [facility] Potassium 4.4 3.5 - 5.5 mmol/L LAB CHEMISTRY METHOD 09/30/2024 10:50 PM [facility] Chloride 101 96 - 110 mmol/L LAB CHEMISTRY METHOD 09/30/2024 10:50 PM [facility] CO2 35(H) 21 - 32 mmol/L LAB CHEMISTRY METHOD 09/30/2024 10:50 PM [facility] Anion Gap 4 3 - 11 LAB CHEMISTRY METHOD 09/30/2024 10:50 PM [facility] Glucose 107(H) 70 - 100 mg/dL LAB CHEMISTRY METHOD 09/30/2024 10:50 PM [facility] BUN 19 5 - 25 mg/dL LAB CHEMISTRY METHOD 09/30/2024 10:50 PM [facility] Creatinine 0.85 0.50 - 1.10 mg/dL LAB CHEMISTRY METHOD 09/30/2024 10:50 PM EDT [facility] eGFR 77 >=60 mL/min/1. 73m2 LAB CHEMISTRY METHOD 09/30/2024 10:50 PM [facility] Comment:Calculation based on the??Chronic Kidney Disease Epidemiology Collaboration (CKD-EPI) equation refit??without adjustment for race. BUN/Creatinine Ratio 22.4 LAB CHEMISTRY METHOD 09/30/2024 10:50 PM T [facility] Calcium 8.9 8.5 - 10.5 mg/dL LAB CHEMISTRY METHOD 09/30/2024 10:50 PM [facility] AST (SGOT) 22 10 - 42 unit/L LAB CHEMISTRY METHOD 09/30/2024 10:50 PM [facility] ALT (SGPT) 33 10 - 60 unit/L LAB CHEMISTRY METHOD 09/30/2024 10:50 PM [facility] Alkaline Phosphatase 125(H) 42 - 121 unit/L LAB CHEMISTRY METHOD 09/30/2024 10:50 PM [facility] Total Protein 6.9 6.0 - 8.0 g/dL LAB CHEMISTRY METHOD 09/30/2024 10:50 PM [facility] Albumin 2.9(L) 3.2 - 5.0 g/dL LAB CHEMISTRY METHOD 09/30/2024 10:50 PM [facility] Total Bilirubin 0.3 0.0 - 1.4 mg/dL LAB CHEMISTRY METHOD 09/30/2024 10:50 PM [facility] Blood Venous blood specimen / Unknown Venipuncture / Unknown 09/30/2024 10:13 PM EDT 09/30/2024 10:24 PM EDT us Madelyn Woodard MD LAB BLOOD ORDERABLES Fin al Result [facility] [address] [place] [address], [place] [phone] * (ABNORMAL) Thyroxine total (09/19/2024 9:04 AM EDT) T4, Total 2.8(L) 4.5 - 10.9 mcg/dL LAB CHEMISTRY METHOD 09/19/2024 1:40 PM EDT [facility] Blood Venous blood specimen / Unknown Venipuncture / Unknown 09/19/2024 9:04 AM EDT 09/19/2024 11:18 AM EDT us Erickson Melton MD LAB BLOOD ORDERABLES Final Result Performing Organization Address City/[facility]/ZIP Co de Phone Number [facility] [address] [place] [address], [place] [phone] * (ABNORMAL) Thyroid stimulating hormone (09/13/2024 8:54 AM EDT) TSH 7.10(H) 0.40 - 4.00 mcIU/mL LAB CHEMISTRY METHOD 09/13/2024 1:18 PM EDT [facility] Blood Venous blood specimen / Unknown Venipuncture / Unknown 09/13/2024 8:54 AM EDT 09/13/2024 10:34 AM EDT us Erickson Melton MD LAB BLOOD ORDERABLES Final Result [facility] [address] [place] [address], [place] [phone] from Last 3 Months Additional Health Concerns Infection Onset Date Last Indicated C. 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
--- OUTSIDE RECORDS SUMMARY | 2024-11-07 14:54 | XMS_ITS | Encounter Summary ---
Author Organization [facility] Address [address] [place] [address] Care Team Providers Care Route Sales Representative Name Role Phone Erickson Melton MD Primary Care Provider [phone] Encounter Details Date Type Department Care Team (Late st Contact Info) Description 09/26/2024 Lab Requisition [facility] - Main Lab [address] [facility] [place] [address] Erickson Melton MD [address] [place] [id number] Anemia, unspecified; Hypothyroidism, unspecified; Other seizures (CMS/HCC [...] mmol/L LAB CHEMISTRY METHOD 09/27/2024 8:30 AM [facility] Potassium 3.9 3.5 - 5.5 mmol/L LAB CHEMISTRY METHOD 09/27/2024 8:30 AM [facility] Chloride 102 96 - 110 mmol/L LAB CHEMISTRY METHOD 09/27/2024 8:30 AM [facility] CO2 37(H) 21 - 32 mmol/L LAB CHEMISTRY METHOD 09/27/2024 8:30 AM [facility] Anion Gap 3 3 - 11 LAB CHEMISTRY METHOD 09/27/2024 8:30 AM [facility] Glucose 108(H) 70 - 100 mg/dL LAB CHEMISTRY METHOD 09/27/2024 8:30 AM [facility] BUN 18 5 - 25 mg/dL LAB CHEMISTRY METHOD 09/27/2024 8:30 AM [facility] Creatinine 0.67 0.50 - 1.10 mg/dL LAB CHEMISTRY METHOD 09/27/2024 8:30 AM [facility] eGFR 98 >=60 mL/min/1. 73m2 LAB CHEMISTRY METHOD 09/27/2024 8:30 AM [facility] Comment:Calculation based on the??Chronic Kidney Disease Epidemiology Collaboration (CKD-EPI) equation refit??without adjustment for race. BUN/Creatinine Ratio 26.9 LAB CHEMISTRY METHOD 09/27/2024 8:30 AM [facility] Calcium 8.7 8.5 - 10.5 mg/dL LAB CHEMISTRY METHOD 09/27/2024 8:30 AM [facility] Blood Venous blood specimen / Unknown Venipuncture / Unknown 09/27/2024 7:12 AM EDT 09/27/2024 8:01 AM EDT us Erickson Melton MD LAB BLOOD ORDERABLES Final Result [facility] [address] [place] [address], * (ABNORMAL) Complete blood count (09/27/2024 7:12 AM EDT) WBC 7.2 4.8 - 10.8 K/mcL LAB HEMETOLOGY METHOD 09/27/2024 8:09 AM EDT [facility] RBC 3.20(L) 3.80 - 4.80 M/mcL LAB HEMETOLOGY METHOD 09/27/2024 8:09 AM EDT [facility] Hemoglobin 10.9(L) 11.5 - 16.0 g/dL LAB HEMETOLOGY METHOD 09/27/2024 8:09 AM EDT [facility] Hematocrit 35.3 35.0 - 47.0 % LAB HEMETOLOGY METHOD 09/27/2024 8:09 AM EDT [facility] MCV 109.6(H) 79.0 - 98.0 FL LAB HEMETOLOGY METHOD [facility]24 [facility] MCH 33.9(H) 27.0 - 32.0 pcg LAB HEMETOLOGY METHOD 09/27/2024 8:[facility] MCHC 30.9(L) 32.0 - 37.0 g/dL LAB HEMETOLOGY METHOD 09/27/2024 8:[facility] RDW 16.3(H) 11.0 - 15.0 % LAB HEMETOLOGY METHOD 09/27/2024 8:[facility] Platelets 268 130 - 400 K/mcL LAB HEMETOLOGY METHOD 09/27/2024 8:09 AM EDT [facility] MPV 10.7 7.0 - 11.0 FL LAB HEMETOLOGY METHOD 09/27/2024 8:09 AM EDT [facility] NRBC 0.0 <1.0 % LAB HEMETOLOGY METHOD 09/27/2024 8:09 AM EDT [facility] NRBC Absolute 0.00 <0.10 K/mcL LAB HEMETOLOGY METHOD 09/27/2024 8:09 AM EDT [facility] Blood Venous blood specimen / Unknown Venipuncture / Unknown 09/27/2024 7:12 AM EDT 09/27/2024 8:01 AM EDT Erickson Melton MD LAB BLOOD ORDERABLES Final Result [facility] [address] [place] [address], documented in this encounter Visit Diagnoses Diagnosis [...] documented as of this encounter Care Teams Route Sales Representative Relationship Specialty Start Date End Date Erickson Melton MD [address] [place] [id number] PCP - General Internal Medicine 09/13/24 documented as of this encounter
[2024-11-07 16:32] VITALS: BP 130/98; PULSE 68; RESP 16; TEMP 36.3; O2SAT 96
== END 2024-11-07 16:36 | disposition skilled nursing facility (03) ==
PROVIDERS: Emergency Provider Emergency Medicine Emergency Medical Services; PCP Internal Medicine
DX: K94.23 Gastrostomy malfunction (principal)
CPT/HCPCS: 74018; 99282; 99283

== ENCOUNTER → 2024-11-07 12:25 | Outpatient (BNV) | payer MEDICARE, MEDICAID, SELFPAY | PROVIDERS: Emergency Provider Emergency Medicine Emergency Medical Services; PCP Internal Medicine; Visit Provider Radiology Diagnostic Radiology | DX: Z93.1 Gastrostomy status (principal) | CPT/HCPCS: 74018 ==

== ENCOUNTER 2024-12-13 19:11 | Emergency (ER) | payer MEDICARE, MEDICAID, SELFPAY ==
[2024-12-13 19:14] VITALS: PULSE 65; O2SAT 96
--- NOTE | 2024-12-13 19:33 | ED_ITS ---
HPI - General Adult General Chief complaint: General Medical Stated complaint: g-tube site infection from [facility] [place] [facility] Time Seen by Provider: 12/13/24 19:32 Source: other (spiritual care coordinator) Limitations: other (Down syndrome) History of Present Illness ED Provider: Imelda Bartholomew PA-C HPI narrative: 64-year-old female with a history of, hypothyroid, CVA, Down syndrome, dementia, Jorge L's, with G-tube dependence secondary to dysphagia and recurrent aspiration pneumonia status post PEG on September 01, 2024, presents given concern for infection at G-tube site. I spoke with the director from [facility] the jail where the patient [facility], she just returned from rehab, they are unfamiliar with the G-tube, they are noticing yellow secretions at the site. The patient has not had a fever. There was another issue, the patient does not have her TPN, the provider from the rehab facility did not initiate a prescription. They reached out to the patient's primary care provider, she will have her TPN tomorrow evening. Related Data Home Medications ?Medication ?Instructions ?Recorded ?Confirmed cetyl and stearate 1 appl topical MOTH 12/11/23 09/28/24 alcohol-propylen glycol-sls topical cream (Cetaphil topical cream) acetaminophen 650 mg/20.3 mL oral 640 mg feeding tube Q4H PRN fever 09/28/24 09/28/24 solution or pain bisacodyl 10 mg rectal suppository 10 mg AZ DAILY PRN Constipation 09/28/24 09/28/24 ipratropium 0.5 mg-albuterol 3 mg 3 ml inhalation Q6H PRN Dyspnea 09/28/24 09/28/24 (2.5 mg base)/3 mL nebulization soln magnesium hydroxide 400 mg/5 mL 30 ml PO DAILY PRN Constipation 09/28/24 09/28/24 oral suspension midodrine 5 mg tablet 5 mg PO DAILY 09/28/24 09/28/24 sodium phosphates 19 gram-7 118 ml AZ DAILY PRN Constipation 09/28/24 09/28/24 gram/118 mL enema (Fleet Enema) Previous Rx's ?Medication ?Instructions ?Recorded aspirin 81 mg chewable tablet 81 mg feeding tube DAILY #90 tabs 09/08/24 cholecalciferol (vitamin D3) 25 25 mcg feeding tube DAILY #30 tabs 09/08/24 mcg (1,000 unit) tablet dextromethorphan-guaifenesin 10 10 ml feeding tube Q4H PRN cough 09/08/24 mg-100 mg/5 mL oral syrup #500 mL gabapentin 300 mg capsule 300 mg feeding tube BID #60 caps 09/08/24 levothyroxine 137 mcg tablet 137 mcg feeding tube DAILY@0600 09/08/24 (Synthroid) #30 tabs oxcarbazepine 150 mg tablet 150 mg feeding tube BID #60 tabs 09/08/24 (Trileptal) oxcarbazepine 300 mg tablet 300 mg feeding tube BID #60 tabs 09/08/24 trazodone 50 mg tablet 50 mg feeding tube BEDTIME PRN 09/08/24 Sleep #30 tabs calcium 600 mg (as 1 tab PO BID@1600,2000 #60 tabs 09/21/24 carbonate)-vitamin D3 10 mcg (400 unit) tablet sennosides 8.6 mg-docusate sodium 1 tab PO BEDTIME #28 tabs 09/21/24 50 mg tablet (Senna Plus) cefdinir 250 mg/5 mL oral 300 mg (6 mL) PO BID 7 days #84 mL 09/23/24 suspension metronidazole 500 mg/5 mL oral 500 mg (5 mL) PO BID 6 days #60 mL 09/23/24 suspension vancomycin 50 mg/mL oral solution 125 mg (2.5 mL) PO QID 10 days 09/28/24 #100 mL hydrocortisone 2.5 % topical cream 1 appl AZ BID PRN hemorrhoids #30 11/08/24 with perineal applicator grams (Proctosol HC) fluticasone propionate 50 1 spray intranasal DAILY #16 grams 12/13/24 mcg/actuation nasal spray,suspension Allergies Allergy/AdvReac Type Severity Reaction Status Date / Time Sulfa (Sulfonamide Allergy Mild HIVES Verified 12/13/24 20:15 Antibiotics) sulfamethoxazole Allergy Mild HIVES Verified 12/13/24 20:15 [From Bactrim] amoxicillin [Amoxicillin] Allergy Unknown HIVES Verified 12/13/24 20:15 Clindamycin HCl Allergy Unknown rash Verified 12/13/24 20:15 trimethoprim [From Bactrim] Allergy Unknown HIVES Verified 12/13/24 20:15 Review of Systems 2 Review of Systems: Yes all other systems are reviewed and are negative Constitutional: Constitutional: Denies fatigue and Denies fever(s) Cardiovascular: Cardiovascular: Denies chest pain and Denies dyspnea Respiratory: Respiratory: Denies dyspnea Gastrointestinal: Gastrointestinal: Denies abdominal pain, Denies nausea and Denies vomiting Endocrine: Endocrine: Denies fatigue [facility] Past Medical History Attestation statement: The following information was validated with the patient. Medical History Medicare annual wellness visit, subsequent Preoperative cardiovascular examination New onset left bundle branch block (LBBB) Lethargy COVID-19 virus infection Mental status alteration Colon cancer screening Atlantoaxial instability Cholelithiasis Mental and behavioral problem Hypercholesterolemia Vitamin D deficiency Closed right ankle fracture Patent foramen ovale Hypothyroid Megaloblastic anemia CVA (cerebral vascular accident) Cataracts, bilateral Down syndrome Jorge L's disease Surgical History Clubfoot Hx of tubal ligation Hx of cataract surgery History of colonoscopy Family History Family History Father No problems noted. Mother Hx of cancer of lung Social History Social History Household Members: Other Household Members Other:: [facility] Housing: Other Housing Other:: [facility] Do you presently have visiting nurse or other home services: Yes Unable to assess alcohol history related to: Unknown Alcohol intake: never Comment: jail staff at bedside Patient Tobacco Use Status: Never used Tobacco e-Cigarette/Vaping Use: Never Used Second Hand Smoke Exposure: No Advance Directives: No Advance Directives Information Provided: No Advance Directives Date on File: 04/27/23 service: No Current occupational status: disabled Cognitive needs: Yes Hearing needs: No Vision needs: No Physical Exam ED Vital Signs: Vital Signs - 24 hr 12/13/24 20:10 Pulse Rate 70 Respiratory Rate 16 Blood Pressure 104/79 BMI result Body Mass Index 30.4 Const Other: Alert Resp Effort & Inspection: normal respiratory effort Cardio Other: Normal peripheral perfusion GI Other: G-tube was intact, the skin surrounding the site cars without erythema or warmth, it is not tender to the patient, I see dried stomach contents, Skin Other: Warm dry no rash Neuro General: no focal motor deficits and CN's II-XI intact bilaterally Psych Other: Pleasant cooperative Medical Decision Making Medical Decision Making MDM Narrative: 64-year-old female with a history of, hypothyroid, CVA, Down syndrome, dementia, Jorge L's, with G-tube dependence secondary to dysphagia and recurrent aspiration pneumonia status post PEG on September 01, 2024, presents given concern for infection at G-tube site. I spoke with the director from [facility], the jail where the patient resides, she just returned from rehab, they are unfamiliar with the G-tube, they are noticing yellow secretions at the site. The patient has not had a fever. There was another issue, the patient does not have her TPN, the provider from the rehab facility did not initiate a prescription. They reached out to the patient's primary care provider, she will have her TPN tomorrow evening. Problem: G-tube dependent History: Per patient's administrative medical director I have considered the following differential diagnoses: Cellulitis, purulent cellulitis, intra-abdominal abscess, electrolyte abnormality, dehydration Plan: There was no evidence of infection, there was just unfamiliar already with the G-tube. In regard to the TPN issue, we will screen basic labs to be sure there was no abnormality. We do not need to admit the patient, I spoke with the hospitalist, we are unable to obtain TPN overnight, the pharmacy typically formulate it is the TPN. I spoke with the director, they are able to give the patient and sure, they just need a written order stated in the discharge instructions. We will do so I have independently reviewed the following tests: Labs: No leukocytosis, not anemic, no electrolyte abnormality noted Lab Data 12/13/24 20:22 12/13/24 20:22 Labs: Lab Results 12/13/24 Range/Units 20:22 WBC 4.0 L (4.8-10.8) X10*3/uL RBC 3.82 L (4.20-5.50) X10*6/uL Hgb 13.1 (12.0-16.0) g/dl Hct 40.4 (37.0-47.0) % MCV 105.8 H (80.0-98.0) fL MCH 34.3 H (27.0-33.0) pg MCHC 32.4 (31.0-35.0) g/dl RDW 14.6 (11.0-16.0) % Plt Count 178 (160-400) X10*3/uL MPV 10.5 (9.4-12.3) fL Immature Gran % (Auto) 0.3 (0.0-0.4) % Neut % (Auto) 48.9 (45-73) % Lymph % (Auto) 34.4 (20-40) % Robertson % (Auto) 11.3 H (2-11) % Eos % (Auto) 3.8 (0-4) % Baso % (Auto) 1.3 (0-2) % Lymph # (Auto) 1.4 (1.2-4.9) X10*3/uL Robertson # (Auto) 0.5 (0.1-1.2) X10*3/uL Eos # (Auto) 0.2 (0.0-0.4) X10*3/uL Baso # (Auto) 0.1 (0.0-0.2) X10*3/uL Abs Immat Gran (auto) 0.01 (0.00-0.03) X10*3/uL Absolute Neuts (auto) 2.0 (2.0-8.3) x10*3/uL Absolute Nucleated RBC 0.000 (0.0-0.012) X10*3/uL Nucleated RBC % (auto) 0.0 (0.0-0.2) /100WBC Sodium 145 (135-145) mmol/L Potassium 4.3 (3.3-5.1) mmol/L Chloride 105 (96-108) mmol/L Carbon Dioxide 32 H (22-29) mmol/L Anion Gap 12 (12-20) BUN 27 H (9-16) mg/dL Creatinine 0.66 (0.5-1.4) mg/dL Estim Creat Clear Calc 24.9 Estimated GFR > 60 Random Glucose 86 (60-115) mg/dL Calcium 9.4 (8.4-10.2) mg/dL Magnesium 2.3 (1.6-2.6) mg/dL Discharge Plan Discharge Clinical Impression: G tube feedings Patient Disposition: Home, Self-Care Additional Instructions: Screening labs were obtained, there were no abnormalities noted. There was also no infection associated with the G-tube, when I am visualizing is normal stomach contents. For overnight, until the patient receives her TPN, you should use Ensure, per her regular feeding schedule. Prescriptions: No Action sennosides-docusate sodium [Senna Plus] 8.6-50 mg tablet 1 tab PO BEDTIME Qty: 28 0RF calcium carbonate-vitamin D3 600 mg-10 mcg (400 unit) tablet 1 tab PO BID@1600,2000 Qty: 60 0RF hydrocortisone [Proctosol HC] 2.5 % cream with perineal applicator 1 appl AZ BID PRN (Reason: hemorrhoids) Qty: 30 0RF fluticasone propionate 50 mcg/actuation spray,suspension 1 spray intranasal DAILY Qty: 16 0RF levothyroxine [Synthroid] 137 mcg tablet 137 mcg feeding tube DAILY@0600 Qty: 30 0RF oxcarbazepine [Trileptal] 150 mg tablet 150 mg feeding tube BID Qty: 60 0RF trazodone 50 mg Tablet 50 mg feeding tube BEDTIME PRN (Reason: Sleep) Qty: 30 0RF oxcarbazepine 300 mg tablet 300 mg feeding tube BID Qty: 60 0RF dextromethorphan-guaifenesin 10-100 mg/5 mL syrup 10 ml feeding tube Q4H PRN (Reason: cough) Qty: 500 0RF gabapentin 300 mg capsule 300 mg feeding tube BID Qty: 60 0RF aspirin 81 mg tablet,chewable 81 mg feeding tube DAILY Qty: 90 0RF cholecalciferol (vitamin D3) 25 mcg (1,000 unit) tablet 25 mcg feeding tube DAILY Qty: 30 0RF metronidazole 500 mg/5 mL suspension 500 mg PO BID 6 Days Qty: 60 0RF Rx Instructions: END DATE 10/02/2024 cefdinir 250 mg/5 mL suspension for reconstitution 300 mg PO BID 7 Days Qty: 84 0RF Rx Instructions: END DATE 10/01/2024 Cetaphil Cream 1 appl TOPICAL MOTH Rx Instructions: after showers on Thursday and ipratropium-albuterol 0.5 mg-3 mg(2.5 mg base)/3 mL Solution For Nebulization 3 ml INHALATION Q6H PRN (Reason: Dyspnea) midodrine 5 mg Tablet 5 mg PO DAILY Rx Instructions: hold for SBP >130 magnesium hydroxide 400 mg/5 mL Suspension 30 ml PO DAILY PRN (Reason: Constipation) bisacodyl 10 mg Suppository 10 mg AZ DAILY PRN (Reason: Constipation) Fleet Enema 19-7 gram/118 mL Enema 118 ml AZ DAILY PRN (Reason: Constipation) acetaminophen 650 mg/20.3 mL solution 640 mg feeding tube Q4H PRN (Reason: fever or pain) vancomycin 50 mg/mL recon soln 125 mg PO QID 10 Days Qty: 100 0RF Print Language: Vietnamese
[2024-12-13 20:10] VITALS: BP 104/79; PULSE 70; RESP 16; BMI 30.4
--- NOTE | 2024-12-13 20:10 | PC.NURSE ---
unable to obtain rest of vitals as pt gets agitated with attempt.
[2024-12-13 20:25] LABS: MANUAL DIFF FLAG NO
[2024-12-13 20:26] LABS: Basophils Absolute Auto 0.1 X10*3/uL (0.0-0.2); Basophils Percent Auto 1.3 % (0-2); Eosinophils Absolute Auto 0.2 X10*3/uL (0.0-0.4); Eosinophils Percent Auto 3.8 % (0-4); Hematocrit 40.4 % (37.0-47.0); Hemoglobin 13.1 g/dl (12.0-16.0); Imm Gran Abs Auto 0.01 X10*3/uL (0.00-0.03); Imm Gran Pct Auto 0.3 % (0.0-0.4); Lymphocytes Absolute Auto 1.4 X10*3/uL (1.2-4.9); Lymphocytes Percent Auto 34.4 % (20-40); Mean Corpuscular HGB Conc 32.4 g/dl (31.0-35.0); Mean Corpuscular Hemoglobin 34.3 pg (27.0-33.0); Mean Corpuscular Volume 105.8 fL (80.0-98.0); Mean Platelet Volume 10.5 fL (9.4-12.3); Monocytes Absolute Auto 0.5 X10*3/uL (0.1-1.2); Monocytes Percent Auto 11.3 % (2-11); Neutrophils Percent Auto 48.9 % (45-73); Platelet Count 178 X10*3/uL (160-400); Red Blood Count 3.82 X10*6/uL (4.20-5.50); Red Cell Distribution Width 14.6 % (11.0-16.0)
[2024-12-13 20:40] LABS: Anion Gap 12 (12-20); Blood Urea Nitrogen 27 mg/dL (9-16); Calcium 9.4 mg/dL (8.4-10.2); Carbon Dioxide 32 mmol/L (22-29); Chloride 105 mmol/L (96-108); Creatinine Clr Calc Pharmacy 24.9; Estimated Glomerular Filt Rate > 60; Glucose Random 86 mg/dL (60-115); Magnesium 2.3 mg/dL (1.6-2.6); Potassium 4.3 mmol/L (3.3-5.1); Sodium 145 mmol/L (135-145)
[2024-12-13 22:00] VITALS: BP 104/79; PULSE 70; RESP 16; TEMP 36.6; O2SAT 0
== END 2024-12-13 22:00 | disposition home or self-care (01) ==
PROVIDERS: Physician Assistant Medical; Emergency Provider Emergency Medicine Emergency Medical Services; PCP Internal Medicine
DX: R13.10 Dysphagia, unspecified (principal); Z79.899 Other long term (current) drug therapy
CPT/HCPCS: 36415; 80048; 83735; 85025; 99282; 99283

== ENCOUNTER 2024-12-16 11:45 | Outpatient (AMB) | payer MEDICARE, MEDICAID, SELFPAY ==
--- NOTE | 2024-12-16 11:49 | MHC.PC.OV ---
Vital Signs 12/16/24 11:51 Weight 81 lb 12.664 oz BP 130/62 Blood Pressure Location Lt brachial Position Sitting Pulse 55 Pulse Source Pulse Oximeter Temp 97.4 F Temp Source Temporal Artery Scan Pulse Oximetry (%) 94 Oxygen Delivery Method Room Air Intake Visit [facility] Intake Note: Patient is here for hospital discharge follow up. Patient was discharged from [facility] on 12/06/24. Well Driller Required: No Solutions Manager: Present (Sister and Program superviser) Accompanied by: Staff Allergies Sulfa (Sulfonamide Antibiotics) Allergy (Mild, Verified 12/16/24 11:50) HIVES sulfamethoxazole [From Bactrim] Allergy (Mild, Verified 12/16/24 11:50) HIVES amoxicillin [Amoxicillin] Allergy (Unknown, Verified 12/16/24 11:50) HIVES Clindamycin HCl Allergy (Unknown, Verified 12/16/24 11:50) rash trimethoprim [From Bactrim] Allergy (Unknown, Verified 12/16/24 11:50) HIVES Tobacco use date assessed: 12/16/24 Fall risk assessment: No Falls in past year Last assessed Fall Risk: 12/16/24 Dental Screening Dental Screen Date: 12/16/24 Did you have a dental visit in the last 12 months?: Yes Did you have a dental problem in the last 6 months where you did not have access to dental care?: No Was dental information given to patient?: Patient has dentist [facility] Medical History Medicare annual wellness visit, subsequent Preoperative cardiovascular examination New onset left bundle branch block (LBBB) Lethargy COVID-19 virus infection Mental status alteration Colon cancer screening Atlantoaxial instability Cholelithiasis Mental and behavioral problem Hypercholesterolemia Vitamin D deficiency Closed right ankle fracture Patent foramen ovale Hypothyroid Megaloblastic anemia CVA (cerebral vascular accident) Cataracts, bilateral Down syndrome Jorge L's disease Surgical History Clubfoot Hx of tubal ligation Hx of cataract surgery History of colonoscopy Family History Father No problems noted. Mother Hx of cancer of lung Social History Household Members: Other Household Members Other:: [facility] Housing: Other Housing Other:: [facility] Do you presently have visiting nurse or other home services: Yes Unable to assess alcohol history related to: Unknown Alcohol intake: never Comment: long-term staff at bedside Patient Tobacco Use Status: Never used Tobacco e-Cigarette/Vaping Use: Never Used Second Hand Smoke Exposure: No Advance Directives Date on File: 04/27/23 service: No Current occupational status: disabled Cognitive needs: Yes (Wheelchair) Hearing needs: No Vision needs: Yes (Glasses) Questionnaire PHQ-9 Over the last 2 weeks, how often have you been bothered by any of the following problems? 1. Little interest or pleasure in doing things: not at all 2. Feeling down, depressed, or hopeless: not at all 3. Trouble falling or staying asleep, or sleeping too much: not at all 4. Feeling tired or having little energy: not at all 5. Poor appetite or overeating: not at all 6. Feeling bad about yourself - or that you are a failure or have let yourself or your family down: not at all 7. Trouble concentrating on things, such as reading the newspaper or watching television: not at all 8. Moving or speaking so slowly that other people could have noticed. Or the opposite - being so fidgety or restless that you have been moving around a lot more than usual: not at all 9. Thoughts that you would be better off or of hurting yourself in some way: not at all Total score: 0 Depression Screening Interpretation: Negative Depression Screening Done: Yes Source: Developed by Drs. Monico Cuellar, Peggy Morris, Parvez Guerrier and colleagues, with an educational tesha from [employer]. Thrive Questionnaire Date Thrive assessed: 08/25/24 AUDIT C Alcohol Use Questionnaire (AUDIT-C) 1. How often do you have a drink containing alcohol?: Never Total Score: 0 NEHA-7 AMB Questionnaire NEHA-7 Date NEHA - 7 assessed: 12/16/24 Feeling nervous, anxious, or on edge: 0 = Not at all Not being able to stop or control worryin = Not at all Worrying too much about different things: 0 = Not at all Trouble relaxin = Not at all Being so restless that it is hard to sit still: 0 = Not at all Becoming easily annoyed or irritable: 0 = Not at all Feeling afraid as if something awful might happen: 0 = Not at all Total NEHA-7 score (0-4 normal; 5-9 mild; 10-14 moderate; 15-21 severe): 0 Source: Developed by Drs. Monico Cuellar, Peggy Morris, Parvez Guerrier and colleagues, with an educational tesha from [employer]. Physical exam (Primary Care) Vital Signs: Last Vital Signs Temp 97.4 F 12/16/24 11:51 Pulse 55 12/16/24 11:51 BP 130/62 12/16/24 11:51 Pulse Ox 94 12/16/24 11:51 Oxygen Delivery Method Room Air 12/16/24 11:51 Tobacco/Smoking Status: Tobacco use Status Tobacco use date assessed 12/16/24 12/16/24 11:56 Patient Tobacco Use Status Never used Tobacco 12/16/24 11:56 e-Cigarette/Vaping Use Never Used 12/16/24 11:56 PHQ-9: PHQ-9 Score PHQ-9: Total score 0 12/16/24 12:12 Depression Screening Interpretation: Negative Thrive Assessment: Date of Thrive Assessment Date Thrive assessed 08/25/24 12/16/24 11:56 Const General: alert; No acute distress Eyes Conjunctivae: conjunctivae normal Resp Auscultation: clear to auscultation bilaterally Cardio Rate: regular rate Rhythm: regular rhythm Extrem General: Yes normal to inspection and No edema Coding Level of Care Code Est Pt Level 4 (41031) Complex EM visit Add On G2211 Diagnoses PEG (percutaneous endoscopic gastrostomy) status Z93.1 Down syndrome Q90.9 Hypothyroidism, unspecified type E03.9 Hypothyroidism type: unspecified Seizure disorder G40.909 Hypotension I95.9 C. difficile diarrhea A04.72 Right shoulder pain M25.511 Assessment & Plan Assessment & Plan (1) PEG (percutaneous endoscopic gastrostomy) status: Code(s): Z93.1 - Gastrostomy status Category: Surgical Plan: Receiving Osmolite (2) Down syndrome: Code(s): Q90.9 - Down syndrome, unspecified Category: Medical Plan: Supportive treatment (3) Hypothyroid: Comment: Myxedema March 2019 Code(s): E03.9 - Hypothyroidism, unspecified Category: Medical Qualifiers: Hypothyroidism type: unspecified Qualified Code(s): E03.9 - Hypothyroidism, unspecified Plan: Continue with thyroid medication 137 mcg once a day will need blood work (4) Seizure disorder: Code(s): G40.909 - Epilepsy, unspecified, not intractable, without status epilepticus Category: Medical Plan: Patient has seen Neurology continuing with gabapentin Trileptal and Magdaleno (5) Hypotension: Code(s): I95.9 - Hypotension, unspecified Category: Medical Plan: Patient placed on midodrine (6) C. difficile diarrhea: Code(s): A04.72 - Enterocolitis due to Clostridium difficile, not specified as recurrent Category: Medical Plan: s/p treatment (7) Right shoulder pain: Code(s): M25.511 - Pain in right shoulder Category: Medical Plan History of Present Illness The patient is a 64-year-old female presenting for follow-up after recent hospitalizations and management of multiple chronic conditions. The patient has a history of Down syndrome and dementia, which have been managed with supportive care and medications. She also has a seizure disorder for which she is on carbamazepine and gabapentin, with recent discussions about adjusting her medication regimen. The patient has a history of hypothyroidism, managed with thyroid medication, although recent blood work indicated elevated thyroid levels. She also has hypercholesterolemia and osteopenia, which are being monitored. The patient experienced aspiration pneumonia in the past, and she has a gastrostomy tube placed on September 01, 2024, to assist with feeding. She had an ER visit on December 13 for a suspected infection at the G-tube site, but no infection was found. She has a left bundle branch block and has experienced episodes of hypotension, which are being managed with midodrine. Her blood work from December 13 showed microcytosis and mild leukopenia, with normal renal function and electrolytes. The patient was hospitalized in August 2024 for bilateral pneumonia with pulmonary edema, requiring intubation and subsequent extubation. Health Maintenance Social History - Functional status: The patient has limited mobility and requires assistance with daily activities. - Exercise: The patient has no current exercise routine and is primarily sedentary. - Nutritional intake: The patient receives nutrition through a gastrostomy tube and has tolerated Ensure feeds. Review of Systems - Cardiovascular: Denies chest pain or palpitations. - Respiratory: Reports increased dizziness and dyspnea on exertion. - Neurological: Reports increased dizziness and denies recent seizures. - Gastrointestinal: Denies abdominal pain or changes in bowel habits. Physical Exam Results - Labs: Blood work on December 13 showed normal blood count, microcytosis, mild leukopenia, normal electrolytes, normal renal function, and elevated thyroid levels. - Imaging: CT scan in August 2024 showed bilateral pneumonia with pulmonary edema. Plan The patient will continue with her current thyroid medication regimen, with adjustments as needed based on follow-up blood work to monitor thyroid levels. For her seizure disorder, the plan includes continuing carbamazepine and considering adjustments to gabapentin or oxcarbazepine based on neurology recommendations. The patient's hypotension is being managed with midodrine, and her blood pressure will be monitored to ensure it remains within the target range. Nutritional support will continue through the gastrostomy tube, with adjustments to feeding schedules as needed to optimize her nutritional status and comfort. The patient will undergo further evaluation for her shoulder pain, including potential imaging and physical therapy interventions to improve mobility and reduce discomfort. Patient was informed and verbally consented to the use of an ambient scribe for clinic note documentation during this visit. Discussion Notes During the visit, we discussed the management of the patient's thyroid levels, emphasizing the importance of regular blood work to monitor and adjust her medication as needed. We also reviewed her seizure management plan, considering potential adjustments to her medication regimen in consultation with neurology. The patient's hypotension management with midodrine was addressed, and we agreed to monitor her blood pressure closely. Nutritional support through the gastrostomy tube was discussed, with a focus on optimizing her feeding schedule for comfort and nutritional adequacy. We also planned for further evaluation of her shoulder pain, including imaging and potential physical therapy to improve her mobility and reduce pain. Patient Instructions - Continue taking thyroid medication as prescribed and follow up with blood work to monitor levels. - Maintain current seizure medication regimen and consult neurology for any changes. - Monitor blood pressure regularly and report any significant changes. - Follow the gastrostomy tube feeding schedule and report any issues with feeding or discomfort. - Schedule follow-up for shoulder pain evaluation and potential physical therapy. Orders: Orders Complete Blood Count Auto Diff Today E03.9 - Hypothyroidism, unspecified Comprehensive Met. Panel Today E03.9 - Hypothyroidism, unspecified CDiff Gene PCR Today E03.9 - Hypothyroidism, unspecified Vitamin B12 and Folate Today E03.9 - Hypothyroidism, unspecified Magnesium Today E03.9 - Hypothyroidism, unspecified Phosphorus Today E03.9 - Hypothyroidism, unspecified Thyroid Stimulating Hormone Today E03.9 - Hypothyroidism, unspecified Free T4 (Free Thyroxine) Today E03.9 - Hypothyroidism, unspecified Vitamin D 25-OH Total Today E03.9 - Hypothyroidism, unspecified XR shoulder RT min 2V Today M25.511 - Pain in right shoulder Medications: New Lactobacillus acidophilus (Acidophilus capsule) 10 mg feeding tube DAILY 30 caps 0RF gabapentin 100 mg feeding tube BEDTIME 30 caps 0RF nutritional supplements (Osmolite 1.5 Drew) Bolus feed 24ml for a total of 1440ml daily. Elevate head of bed to 30-45 degrees during feed and 1 hour after. 1,440 ea feeding tube Q4H 237 mL 0RF Changed From oxcarbazepine 300 mg feeding tube BID 60 tabs 0RF G40.909 - Epilepsy, unspecified, not intractable, without status epilepticus To oxcarbazepine 75 mg (1/2 x 150 mg) feeding tube BID 30 tabs 3RF 30 days G40.909 - Epilepsy, unspecified, not intractable, without status epilepticus Discontinued cefdinir END DATE 10/01/2024 Discontinued Reason: Patient Completed Course 300 mg (6 mL) PO BID 7 days 84 mL 0RF metronidazole END DATE 10/02/2024 Discontinued Reason: Patient Completed Course 500 mg (5 mL) PO BID 6 days 60 mL 0RF sennosides-docusate sodium 8.6-50 mg (Senna Plus) Discontinued Reason: Patient no longer taking 1 tab PO BEDTIME 28 tabs 0RF
[2024-12-16 11:51] VITALS: BP 130/62; PULSE 55; TEMP 36.3; O2SAT 94
--- OUTSIDE RECORDS SUMMARY | 2024-12-16 12:42 | XMS_ITS | Data Portability ---
Author Organization [facility], [address] Address [address] [place] [address] Assessment No assessment recorded. Plan of Treatment Reminders Order Date Submit Date Provider Last Modified By Organization Details Last Modified Time Details Appointments None recorded. Lab None recorded. Referral emergency medicine referral 2022 023 [email or web address] [facility], [address] [place], [address], 3 08:00:22 Procedures None recorded. Surgeries None recorded. Imaging None recorded. Medication Orders None recorded. Patient TargetsNo targets recorded. Patient Instructions Encounter Date Encounter Id Patient Instructions Last Modified By Organization Details Last Modified Time 10/21/2022 [id number] You have been advised to go now to the Emergency Department for further evaluation. [facility] ER has been advised of your impending arrival. Not available 10/21/2022 17:01:48 Reason for Referral Emergency Medicine Referral for Petechiae of skin New petechial rash bilateral lower extremities (since last night) Referring Physician: Sveta Martin, Urgent Care, Encounter Date: 10/21/2022 Problems Name Problem SNOMED Code Status Onset Date Resolution Date Notes Provider Name and Address Organization Details Recorded Time Feeling agitated 10506052 Active 2022 IRIS COUVERTIE R null, [place] - [facility] 3 15:15:15 Mood disorder 55109611 Active 2022 IRIS COUVERTIE R null, [place] - [facility] 3 15:15:25 Aggressive behavior 74968816 Active 2022 IRIS COUVERTIE R null, PA - [facility] 3 15:15:36 Constipation 48592116 Active 2022 IRIS COUVERTIE R null, PA - [facility] 3 15:15:52 Hypothyroidism 74546443 Active 2022 IRIS COUVERTIE R null, [place] - [facility] 3 15:16:05 Allergic rhinitis 73519580 Active 2022 IRIS COUVERTIE R null, [place] - [facility] 3 15:16:38 Tinea pedis 8075198 Active 2022 IRIS COUVERTIE R null, [place] - [facility] 3 15:16:53 Sleep disorder 05961619 Active 2022 IRIS COUVERTIE R null, [place] - [facility] 3 15:18:09 Problem Notes None recorded. Medical Equipment None Reported. Allergies Allergen ID Allergen Name Allergen Category Reaction Reaction Severity Criticality Documentation Date Start Date Code Code System Note Provider Name and Address Organization Details Recorded Time 738429 amoxicill in medicatio n Not available Not available Not available 10/21/2022 723 RxNorm IRIS COUVERTIE R null, PA - [facility] 3 15:04:10 456455 Bactrim medicatio n Not available Not available Not available 10/21/2022 77480 9 RxNorm IRIS COUVERTIE R null, [place] - [facility] 3 15:04:17 219247 Substance with sulfonami de structure and antibacte rial mechanism of action (substanc e) medicatio n Not available Not available Not available 10/21/2022 89103 8003 SNOMED IRIS COUVERTIE R null, [place] - [facility] 3 15:04:22 031887 clindamyc in Not available Not available Not [...] % 94 % 124.46 cm 24.7 kg/m2 12318.8 6 g 96 mm[Hg] 69 mm[Hg] [facility]ORIO [facility] 3 15:11:15 Social History Question Answer Notes LastModified by Organizat ion Details LastModified Time Tobacco Smoking Status Never Smoker [facility] 10/21/2022 15:06:57 What Is Your Water Source? City Information not available 10/21/2022 What Is Your Heat Source? Other Information not available 10/21/2022 Have You Had Direct Contact, Or Contact During Intimacy, With Monkeypox Rash, Scabs, Or Body Fluids From A Person With Monkeypox? No Information not available 10/21/2022 Have You Recently Traveled Abroad? No Information not available 10/21/2022 Sex: Unknown Functional Status Question Answer Note LastModified by Organizat ion Details LastModified Time Do you use any illicit or recreational drugs? No Information not available 10/21/2022 Do you or have you ever used any other forms of tobacco or nicotine? No Information not available 10/21/2022 What is your level of alcohol consumption? None Information not available 10/21/2022 Mental Status None recorded. Family History Nothing Reported. Medical History No medical history recorded. Gynecological HistoryNo gynecological history recorded. Obstetrics History GPAL:G 0 P 0 0 0 0 Past Encounters Encounter ID Performer Location Encounter Start Date Encounter Closed Date Diagnosis/Indication Diagnosis SNOMED-CT Code Diagnosis ICD10 Code Diagnosis Note [id number] [place] [address] [address] 10/21/2022 09:24:57 10/21/2022 17:07:10 Petechiae of skin 919203166 R23.3 Health Concerns Section Related Observation LastModified by Organization Detai ls LastModified Time None Recorded Concern Status LastModified by Organization Details LastModified Time None Recorded Advance Directives Directive None Recorded Payers Insurance Date Sequence Insurance Name Policy Number Policy Lu Covered Member ID Lu Member ID Guarantor Name 10/21/2022 1 [place] [employer] Whitney Lucero [id number] Whitney Lucero 10/21/2022 2 [place] Whitney Szymanskity [id number] Whitney Lucero Notes Date Note Type Note [...] with hx of Down's syndrome brought by nursing home staff member for evaluation of a red rash to her lower legs noted first last night. The patient is a poor historian and history obtained by nursing home staff member. No hx of fever, runny nose, cough, vomiting, diarrhea. No new medications, soaps or lotions. The rash does not appear to be itchy but seems to be spreading. Sveta Martin MD [address] [place], [address], [place] - [facility] 10/21/2022 17:07:58 OBGyn Episode No OBEpisode recorded.
== END 2024-12-16 12:48 | disposition home or self-care (01) ==
PROVIDERS: PCP Internal Medicine; Visit Provider Internal Medicine
DX: Z93.1 Gastrostomy status (principal); Q90.9 Down syndrome, unspecified; E03.9 Hypothyroidism, unspecified; G40.909 Epilepsy, unspecified, not intractable, without status epilepticus; I95.9 Hypotension, unspecified; A04.72 Enterocolitis due to Clostridium difficile, not specified as recurrent; M25.511 Pain in right shoulder

== ENCOUNTER → 2024-12-16 11:45 | Outpatient (BNVA) | payer MEDICARE, MEDICAID, SELFPAY | PROVIDERS: PCP Internal Medicine; Visit Provider Internal Medicine | DX: Z93.1 Gastrostomy status (principal); Q90.9 Down syndrome, unspecified; E03.9 Hypothyroidism, unspecified; G40.909 Epilepsy, unspecified, not intractable, without status epilepticus; I95.9 Hypotension, unspecified; A04.72 Enterocolitis due to Clostridium difficile, not specified as recurrent; M25.511 Pain in right shoulder | CPT/HCPCS: 99212 ==

== ENCOUNTER 2025-01-11 16:33 | Emergency (ER) | payer MEDICARE, MEDICAID, SELFPAY ==
--- NOTE | ~2025-01-11 | XR_ITS ---
CLINICAL HISTORY: G tube placement confirm --- Additional Notes or Special Instructions: GASTROGRAFFIN Abdominal radiograph Comparison: 11/07/24 Findings: Percutaneous gastrostomy tube in the left upper quadrant status post injection of 30 cc of Gastrografin. Gastrografin is seen within the stomach and proximal duodenum. There is a nonobstructive bowel gas pattern. Stool quantity is normal. No pneumoperitoneum or pneumatosis. No acute osseous or soft tissue abnormality. Impression: Properly positioned and functioning percutaneous gastrostomy tube. This document has been electronically signed by: Aspen Gavin MD on 01/11/2025 18:24:17
[2025-01-11 16:47] VITALS: BP 108/68; PULSE 80; RESP 16; BMI 16.8
[2025-01-11 16:56] VITALS: PULSE 78; TEMP 36.4; O2SAT 92
--- OUTSIDE RECORDS SUMMARY | 2025-01-11 17:10 | XMS_ITS | Encounter Summary ---
Author Organization [facility] Address [address] [place] [address] Care Team Providers Care Hand Zipper Trimmer Name Role Phone Erickson Melton MD Primary Care Provider [phone] Encounter Details Date Type Department Care Team (Late st Contact Info) Description 10/27/2024 Lab Requisition [facility] Lab [address] [facility] [place] [address] Erickson Melton MD [address] [place] [address] Enterocolitis due to Clostridium difficile, not specified [...] your loved ones. For example, child welfare assistant or elderly care for an older adult? [...] mmol/L LAB CHEMISTRY METHOD 10/27/2024 9:[address] [facility] Potassium 4.3 3.5 - 5.5 mmol/L LAB CHEMISTRY METHOD 10/27/2024 9:[address] [facility] Comment:Hemolysis present Chloride 105 96 - 110 mmol/L LAB CHEMISTRY METHOD 10/27/2024 9:[address] [facility] CO2 29 21 - 32 mmol/L LAB CHEMISTRY METHOD 10/27/2024 9:[address] [facility] Anion Gap 6 3 - 11 LAB CHEMISTRY METHOD 10/27/2024 9:[address] [facility] Glucose 82 70 - 100 mg/dL LAB CHEMISTRY METHOD 10/27/2024 9:[address] [facility] BUN 33(H) 5 - 25 mg/dL LAB CHEMISTRY METHOD 10/27/2024 9:[address] [facility] Creatinine 0.68 0.50 - 1.10 mg/dL LAB CHEMISTRY METHOD 10/27/2024 9:[address] [facility] eGFR 97 >=60 mL/min/1. 73m2 LAB CHEMISTRY METHOD 10/27/2024 9:[address] [facility] Comment:Calculation based on the Chronic Kidney Disease Epidemiology Collaboration (CKD-EPI) equation refit without adjustment for race. BUN/Creatinine Ratio 48.5 LAB CHEMISTRY METHOD 10/27/2024 9:[address] [facility] Calcium 8.7 8.5 - 10.5 mg/dL LAB CHEMISTRY METHOD 10/27/2024 9:[address] [facility] Blood Venous blood specimen / Unknown Venipuncture / Unknown 10/27/2024 6:46 AM EDT 10/27/2024 7:59 AM EDT us Erickson Melton MD LAB BLOOD ORDERABLES Final Result [facility] [address] [place] [address], * (ABNORMAL) Complete blood count (10/27/2024 6:46 AM EDT) WBC 10.5 4.8 - 10.8 K/mcL LAB HEMETOLOGY METHOD 10/27/2024 8:39 AM EDT [facility] RBC 3.80 3.80 - 4.80 M/mcL LAB HEMETOLOGY METHOD 10/27/2024 8:[address] [facility] Hemoglobin 13.0 11.5 - 16.0 g/dL LAB HEMETOLOGY METHOD 10/27/2024 8:[address] [facility] Hematocrit 42.2 35.0 - 47.0 % LAB HEMETOLOGY METHOD 10/27/2024 8:[address] [facility] MCV 111.9(H) 79.0 - 98.0 FL LAB HEMETOLOGY METHOD 10/27/2024 8:[address] [facility] MCH 34.5(H) 27.0 - 32.0 pcg LAB HEMETOLOGY METHOD 10/27/2024 8:[address] [facility] MCHC 30.8(L) 32.0 - 37.0 g/dL LAB HEMETOLOGY METHOD 10/27/2024 8:[address] [facility] RDW 17.3(H) 11.0 - 15.0 % LAB HEMETOLOGY METHOD 10/27/2024 8:[address] [facility] Platelets 181 130 - 400 K/mcL LAB HEMETOLOGY METHOD 10/27/2024 8:[address] [facility] MPV 10.6 7.0 - 11.0 FL LAB HEMETOLOGY METHOD 10/27/2024 8:39 AM EDT [facility] NRBC 0.0 <1.0 % LAB HEMETOLOGY METHOD 10/27/2024 8:39 AM EDT [facility] NRBC Absolute 0.00 <0.10 K/mcL LAB HEMETOLOGY METHOD 10/27/2024 8:39 AM EDT [facility] Blood Venous blood specimen / Unknown Venipuncture / Unknown 10/27/2024 6:46 AM EDT 10/27/2024 7:59 AM EDT us Erickson Melton MD LAB BLOOD ORDERABLES Final Result [facility] [address] [place] [address], documented in this encounter Visit Diagnoses Diagnosis Enterocolitis due to Clostridium difficile, not specified as recurrent documented in this encounter Additional Health Concerns Infection Onset Date Last Indicated Resolved Time C. difficile Comment:Tested (+) at SNF; started on PO ABT 09/29/24 NL 09/29/2024 10/26/2024 11/19/2024 7:04 PM EDT documented as of this encounter Care Teams Hand Zipper Trimmer Relationship Specialty Start Date End Date Erickson Melton MD [address] [place] [id number] PCP - General Internal Medicine 09/13/24 documented as of this encounter
--- OUTSIDE RECORDS SUMMARY | 2025-01-11 17:10 | XMS_ITS | Patient Health Record ---
Author Organization [facility] Address [address] [facility] [facility] [address] [place] [address] Care Team Providers Care Computer Technical Specialist Name Role Phone Geronimo KEEN, Erickson Primary Care Provider Keisha Faye Unavailable [phone] Allergies Allergen (clinical drug ingredient) Drug/Non Drug Allergy documented on EMR Reaction Allergy Type Onset Date Status amoxicillin Amoxicillin Unknown Drug Allergy Act luisa clindamycin Clindamycin Unknown Drug Allergy Act luisa Substance with sulfonamide structure and antibacterial mechanism of action (substance) Sulfa Antibiotics Unknown Drug Allergy Active sulfamethoxazole Sulfamethoxazole Unknown Drug Allergy Active trimethoprim Trimethoprim Unknown Drug Allergy A ctive Reason For Referral No Information Medications Medication SIG (Take, Route, Frequency, Duration) Notes Start Date End Date Status Aspirin 81 MG 1 tablet G-Tube Once a day 09/10/2024 Active Levothyroxine Sodium 137 MCG 1 tablet G- Tube in the morning 09/10/2024 Active Acetaminophen 160 MG/5ML 20 mL G-Tube every 4 hrs As needed for pain 09/09/2024 Active Ipratropium-Albuterol 0.5-2.5 (3) MG/3ML 3 mL Inhalation every 6 hrs As needed 09/22/2024 Active Acetaminophen 160 MG/5ML 20 mL G-Tube every 4 hrs As needed for fever 09/09/2024 Active Gabapentin 300 MG 1 capsule G-Tube twi ce a day 09/09/2024 Active Fluticasone Propionate 50 MCG/ACT 1 spray in each nostril Nasally once a day 09/10/2024 Active Cetaphil Moisturizing - as directed Externally As needed 09/09/2024 Active Midodrine HCl 5 MG 1 tablet G-Tube 3 ti mes a day 09/24/2024 Active Calcium 600/Vitamin D 600-10 MG-MCG 1 tablet G-Tube twice a day 09/09/2024 Active Bisacodyl 10 MG 1 suppository Rectal Once a day As needed 09/09/2024 Active Magnesium Hydroxide 400 MG/5ML 30 mL Orally Once a day As needed 09/09/2024 Active Enema 7-19 GM/118ML as directed Rectal As needed 09/09/2024 Active Dextromethorphan-guaiFENesin 5-50 MG/5ML 10 mL G-Tube every 4 hrs As needed 09/09/2024 Active Senna Plus 8.6-50 MG 1 tablet G-Tube at bedtime 09/09/2024 Active Cholecalciferol 25 MCG (1000 UT) 1 tablet G-Tube Once a day 09/10/2024 Active Proctosol HC 2.5 % 1 application to rectum Externally Twice a day As needed 09/09/2024 Active OXcarbazepine 300 MG 1 tablet G-Tube Twi ce a day 09/22/2024 Active Problems Problem Type SNOMED Code ICD Code Onset Dates Problem Status W/U Status Risk Notes Problem Megaloblastic anemia (22413482) Other megaloblastic anemias, 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 Problem Hypothyroidism (54127080) Hypothyroidism, unspecified (E03.9) Active confirmed Problem Autoimmune thyroiditis (15910957) Autoimmune thyroiditis (E06.3) Active confirmed Problem Protein calorie malnutrition (093671115) Unspecified protein-calorie malnutrition (E46) Active confirmed Problem Vitamin D deficiency (74300981) Vitamin D deficiency, unspecified (E55.9) Active confirmed Problem Hyperlipidemia (64618515) Hyperlipidemia, unspecified (E78.5) Active confirmed Problem Encephalopathy (47256677) Encephalopathy, unspecified (G93.40) Active confirmed Problem Sequelae of cerebral infarction (872413699) Unspecified 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) Active confirmed Problem Pressure ulcer of sacral region, stage 1 (L89.151) Active confirmed Problem Acquired clubfoot, 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) Active confirmed Problem Down syndrome (44390215) Down syndrome, unspecified (Q90.9) Active confirmed Problem Oropharyngeal dysphagia (65051418) Dysphagia, oropharyngeal phase (R13.12) Active confirmed Problem Walking disability (730156972) Difficulty in walking, not elsewhere classified (R26.2) Active confirmed Problem Gastrostomy present (220700664) 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 confirmed Problem Dementia (81488594) Unspecified dementia, unspecified severity, without behavioral disturbance, psychotic disturbance, mood disturbance, and anxiety (F03.90) Active confirmed Vital Signs Weight 86.2 lbs 09/30/2024 Weight reflecte d from 09/30/24 on [facility] Encounters Encounter Location Date Provider Diagnosis [address] [place] [address] 09/30/2024 Keisha Segura Pressure ulcer of sacral region, stage 1 L89.151 ; Unspecified protein-calorie malnutrition E46 ; Unspecified sequelae of cerebral infarction I69.30 ; Down syndrome, unspecified Q90.9 and Unspecified dementia, unspecified severity, without behavioral disturbance, psychotic disturbance, mood disturbance, and anxiety F03.90 Assessments Encounter Date Diagnosis (ICD Code) Assessment Notes Treatment Notes Treatment Clinical Notes Section Notes 09/30/2024 Unspecified protein-calorie malnutrition (ICD-10 - E46) 09/30/2024 Pressure ulcer of sacral region, stage 1 (ICD-10 - L89.151) On exam, VSS, cooperative with care. We rolled her and examined her buttocks and coccyx region. They are CDI without open wounds ulcerations rashes or sxs infection. Triad paste was applied I recommended nursing apply HBC with care to her buttocks and coccyx. Turn, reposition & offload Q2 hours & PRN to aid in wound healing. RAFY mattress to remain in place. Encourage appropriate dietary supplementation to aid in skin integrity. She does not require a follow up at this time but I will follow up with new or reopened areas and nursing will reach out in the interim w any questions or concerns. Patient and nursing agree w plan of care. I Keisha Segura MSN, AGPCNP-BC examined, evaluated and treated the patient. Dr. Marti Martinez was available for any question or concerns that I may have had. 09/30/2024 Unspecified sequelae of cerebral infarction (ICD-10 - I69.30) 09/30/2024 Down syndrome, unspecified (ICD-10 - Q90.9) 09/30/2024 Unspecified dementia, unspecified severity, without behavioral disturbance, psychotic disturbance, mood disturbance, and anxiety (ICD-10 - F03.90) Plan Of Treatment No Information Insurance Providers Payer Name Payer Address Payer Phone Subscriber Number Group Number Insured Name Patient Relationship to Insured Coverage Start Date Coverage End Date Medicare [address] [place], [place] [id number] Whitney Lucero Self - patient is the insured [employer] (Medicaid) [address] [place], [place] [id number] Whitney Lucero Self - patient is the insured Medical (General) History Medical History History ICD Code Abnormal posture R29.3 Acute pulmonary edema J81.0 Acute respiratory failure with hypoxia J 96.01 Acquired clubfoot, unspecified foot M21. 549 Aspiration of fluid as the c ause of abnormal reaction of the patient, or of later complication, without mention of misadventure at the time of the procedure Y84.4 Autoimmune thyroiditis E06.3 Difficulty in walking, not elsewhere cla ssified R26.2 Down syndrome, unspecified Q90.9 Dysphagia, oropharyngeal phase R13.12 Encephalopathy, unspecified G93.40 Gastrostomy status Z93.1 Hyperlipidemia, unspecified E78.5 Hypothyroidism, unspecified E03.9 Muscle weakness (generalized) M62.81 Other megaloblastic anemias, not elsewhe re classified D53.1 Pneumonia, unspecified organism J18.9 Unspecified dementia, unspec ified severity, without behavioral disturbance, psychotic disturbance, mood disturbance, and anxiety F03.90 Unspecified protein-calorie malnutrition E46 Unspecified sequelae of cerebral infarct ion I69.30 Vitamin D deficiency, unspecified E55.9 Weakness R53.1
--- NOTE | 2025-01-11 17:16 | ED.GENADULT ---
HPI - General Adult General Chief complaint: General Medical Stated complaint: infect around g tube redness Time Seen by Provider: 01/11/25 17:15 Related Data Home Medications ?Medication ?Instructions ?Recorded ?Confirmed midodrine 5 mg tablet 10 mg feeding tube TID 12/16/24 Previous Rx's ?Medication ?Instructions ?Recorded vancomycin 50 mg/mL oral solution 125 mg (2.5 mL) PO QID 10 days 09/28/24 #100 mL Lactobacillus acidophilus 10 mg feeding tube DAILY #30 caps 12/16/24 (Acidophilus capsule) acetaminophen 650 mg/20.3 mL oral 640 mg (19.9877 mL) feeding tube 12/16/24 solution Q4H PRN fever or pain #1,015 mL aspirin 81 mg chewable tablet 81 mg feeding tube DAILY #90 tabs 12/16/24 bisacodyl 10 mg rectal suppository 10 mg VT DAILY PRN Constipation 12/16/24 #12 ea cetyl and stearate 1 appl topical MOTH #454 grams 12/16/24 alcohol-propylen glycol-sls topical cream (Cetaphil topical cream) cholecalciferol (vitamin D3) 25 25 mcg feeding tube DAILY #30 tabs 12/16/24 mcg (1,000 unit) tablet fluticasone propionate 50 1 spray intranasal DAILY #16 grams 12/16/24 mcg/actuation nasal spray,suspension gabapentin 100 mg capsule 100 mg feeding tube BEDTIME #30 12/16/24 caps hydrocortisone 2.5 % topical cream 1 appl VT BID PRN hemorrhoids #30 12/16/24 with perineal applicator grams (Proctosol HC) ipratropium 0.5 mg-albuterol 3 mg 3 ml inhalation Q6H PRN Dyspnea 12/16/24 (2.5 mg base)/3 mL nebulization #90 mL soln levothyroxine 137 mcg tablet 137 mcg feeding tube DAILY@0600 12/16/24 (Synthroid) #30 tabs magnesium hydroxide 400 mg/5 mL 30 ml PO DAILY PRN Constipation 12/16/24 oral suspension #355 mL nutritional supplements 0.06 1,440 ea feeding tube Q4H #237 mL 12/16/24 gram-1.5 kcal/mL oral liquid (Osmolite 1.5 Drew) oxcarbazepine 150 mg tablet 75 mg (1/2 x 150 mg) feeding tube 12/16/24 BID 30 days #30 tabs sodium phosphates 19 gram-7 118 ml VT DAILY PRN Constipation 12/16/24 gram/118 mL enema (Fleet Enema) #133 mL trazodone 50 mg tablet 50 mg feeding tube BEDTIME PRN 12/16/24 Sleep #30 tabs calcium 600 mg (as 1 tab PO BID@1600,2000 #60 tabs 01/09/25 carbonate)-vitamin D3 10 mcg (400 unit) tablet cefadroxil 500 mg capsule 500 mg PO BID 7 days #14 caps 01/11/25 vancomycin 125 mg capsule 125 mg PO QID 2 weeks #56 caps 01/11/25 Allergies Allergy/AdvReac Type Severity Reaction Status Date / Time Sulfa (Sulfonamide Allergy Mild HIVES Verified 01/11/25 16:48 Antibiotics) sulfamethoxazole (From Allergy Mild HIVES Verified 01/11/25 16:48 Bactrim) amoxicillin (Amoxicillin) Allergy Unknown HIVES Verified 01/11/25 16:48 Clindamycin HCl Allergy Unknown rash Verified 01/11/25 16:48 trimethoprim (From Bactrim) Allergy Unknown HIVES Verified 01/11/25 16:48 [facility] Past Medical History Medical History Medicare annual wellness visit, subsequent Preoperative cardiovascular examination New onset left bundle branch block (LBBB) Lethargy COVID-19 virus infection Mental status alteration Colon cancer screening Atlantoaxial instability Cholelithiasis Mental and behavioral problem Hypercholesterolemia Vitamin D deficiency Closed right ankle fracture Patent foramen ovale Hypothyroid Megaloblastic anemia CVA (cerebral vascular accident) Cataracts, bilateral Down syndrome Jorge L's disease Surgical History Clubfoot Hx of tubal ligation Hx of cataract surgery History of colonoscopy Family History Family History Father No problems noted. Mother Hx of cancer of lung Social History Social History Household Members: Other Household Members Other:: CHD Housing: Other Housing Other:: jail Do you presently have visiting nurse or other home services: Yes Unable to assess alcohol history related to: Unknown Alcohol intake: never Comment: snf staff at bedside Patient Tobacco Use Status: Never used Tobacco e-Cigarette/Vaping Use: Never Used Second Hand Smoke Exposure: No Advance Directives Date on File: 10/26/24 service: No Current occupational status: disabled Cognitive needs: Yes (Wheelchair) Hearing needs: No Vision needs: Yes (Glasses) Physical Exam ED Vital Signs: Vital Signs - 24 hr 01/11/25 16:47 01/11/25 16:56 01/11/25 16:56 Temperature 97.5 F Pulse Rate 80 78 Respiratory Rate 16 Blood Pressure 108/68 Pulse Oximetry 92 Oxygen Delivery Method Room Air Room Air 01/11/25 18:33 01/11/25 22:32 Temperature 97.3 F 97.3 F Pulse Rate 78 78 Respiratory Rate 16 16 Blood Pressure 112/92 H 112/92 H Pulse Oximetry 93 93 Oxygen Delivery Method Room Air Room Air BMI result Body Mass Index 16.8 Const Other: EXAM: Gen: Down facies Alert, awake, well appearing, well hydrated. Preoccupied with folding socks, pleasant and interactive Head: Atraumatic Eyes: Anicteric, Normal conjunctiva. ENT: Moist mucosa, no pallor. ? Neck: Supple. Skin: ?No observable rash or bruising on exposed or examined skin Respiratory: Breathing comfortably, No distress.Clear to auscultation bilaterally, symmetric chest expansion, No wheeze, rales, ronchi. Cardiovascular: Regular rate and rhythm. No murmurs or rub. Well perfused periphery, warm extremities. No edema. ? Abdominal: G-tube minimally erythematous there is mild perhaps purulent secretion around the edges and somewhat expressible from the ostomy site no fluctuance tube appears in adequate position externally. Flushing well. No focal tenderness. Soft, no objective distension. No palpable masses or obvious organomegaly. ?No guarding, no rebound tenderness or other peritoneal findings. : No flank tenderness. Neuro: Alert. Gross movement of all extremities intact. ? Psych: Calm. Cooperative. MSK: No grossly visible deformity. Vital signs: See flowsheet Medications Administered Discontinued Medications Generic Name Dose Route Start Last Admin Trade Name Freq PRN Reason Stop Dose Admin Diatrizoate Meglum/Diatrizoate Sod 30 ml 01/11/25 18:02 01/11/25 18:03 Diatrizoate Meglumine, Sodium 30 Ml Solution PO 01/11/25 18:03 30 ml ONCE ONE Administration Medical Decision Making Medical Decision Making MDM Narrative: Medical Decision Making: [age] female with Down sent for evaluation of low BP at the facility, recurrence of diarrhea in the setting of recent C diff treatment, and G-tube evaluation possibly misplaced and/or infected site. The patient was not hypotensive in our ED and looked comfortable. Abdomen is soft nontender as exam above shows possible purulence from the site though no severe findings to suggest abscess or fistula tracking or other severe complication. The tube is flushing well and the x-ray reveals adequate positioning per Radiology and my reading. Discharge with 1st time recurrent C diff antibiotic vancomycin 2 weeks crushed given through PEG tube. Cefadroxil for possible soft tissue infection related to ostomy site this needs to be watched closely. Preliminary Favored Differential Diagnosis: Possible G-tube malfunction or misplacement, gastrostomy infection, C diff recurrence no signs or symptoms or examination findings to suggest C diff complication or bowel perforation or obstruction among additional considered etiologies Testing Interpreted Independently: Not Applicable Radiology or Lab testing Results Reviewed: X-ray reveals adequate placement of 2 Consults: Not Applicable Independent Historians/External Chart Reviews: I spoke with supervising director of the facility to coordinate care aftercare and confirmed we evaluated for all the issues they were concerned about Social Determinants of Health Impacting MDM/Planning: Not Applicable Discharge Plan Discharge Clinical Impression: Cellulitis, Clostridial gastroenteritis Patient Disposition: Home, Self-Care Instructions: Cellulitis (ED) Additional Instructions: DISCHARGE DIAGNOSES: Confirm placement of gastric tube. Purulence of the gastric tube of unclear cause possibly infection this was cultured and we have started antibiotics prescribed see attached paperwork. Abdomen soft and nontender. We attempted to test her stool in the emergency department and we will empirically treat with another course of antibiotic for presumed Clostridium difficile HISTORY OF PRESENTATION: ?Per text messages shown to us you wanted us to evaluate discharge or possible infection from the ostomy site, placement of the ostomy, low blood pressures that we did not detect here in the emergency department and diarrhea in the setting of recent C diff treatment EMERGENCY DEPARTMENT COURSE,TESTS, TREATMENTS: While in the ED today x-ray was performed showing adequate placement of the gastric tube No low blood pressures were measured. Examination was reassuring DISCHARGE MEDICATIONS: ?[We have made no changes to your regular medication regimen] we have added cefadroxil for possible infection of the gastric tube site, PEG Vancomycine FOLLOW-UP: ?Call your primary or general physician soon as possible to discuss your symptoms, your ED visit and to discuss follow up plans Primary physician should evaluate this patient within 48 hours of ED discharge INSTRUCTIONS ?& RETURN PRECAUTIONS: If any symptoms change first call your primary physician, if it is after-hours your primary doctors office should have a provider concrete batching plant operator you can speak with. If the symptoms are severe or very concerning to you then call 911 or return to the ED. Noé Guerra MD Emergency Physician [facility] Prescriptions: New cefadroxil 500 mg capsule 500 mg PO BID 7 Days Qty: 14 0RF vancomycin 125 mg capsule 125 mg PO QID 14 Days Qty: 56 0RF No Action acetaminophen 650 mg/20.3 mL solution 640 mg feeding tube Q4H PRN (Reason: fever or pain) Qty: 1015 0RF aspirin 81 mg tablet,chewable 81 mg feeding tube DAILY Qty: 90 0RF bisacodyl 10 mg suppository 10 mg VT DAILY PRN (Reason: Constipation) Qty: 12 12RF Cetaphil Cream 1 appl TOPICAL MOTH Qty: 454 12RF Rx Instructions: after showers on Thursday and cholecalciferol (vitamin D3) 25 mcg (1,000 unit) tablet 25 mcg feeding tube DAILY Qty: 30 12RF fluticasone propionate 50 mcg/actuation spray,suspension 1 spray intranasal DAILY Qty: 16 12RF hydrocortisone [Proctosol HC] 2.5 % cream with perineal applicator 1 appl VT BID PRN (Reason: hemorrhoids) Qty: 30 0RF ipratropium-albuterol 0.5 mg-3 mg(2.5 mg base)/3 mL solution for nebulization 3 ml INHALATION Q6H PRN (Reason: Dyspnea) Qty: 90 0RF levothyroxine [Synthroid] 137 mcg tablet 137 mcg feeding tube DAILY@0600 Qty: 30 12RF magnesium hydroxide 400 mg/5 mL suspension 30 ml PO DAILY PRN (Reason: Constipation) Qty: 355 0RF oxcarbazepine 150 mg tablet 75 mg feeding tube BID 30 Days Qty: 30 3RF Fleet Enema 19-7 gram/118 mL enema 118 ml VT DAILY PRN (Reason: Constipation) Qty: 133 0RF trazodone 50 mg tablet 50 mg feeding tube BEDTIME PRN (Reason: Sleep) Qty: 30 0RF calcium carbonate-vitamin D3 600 mg-10 mcg (400 unit) tablet 1 tab PO BID@1600,2000 Qty: 60 0RF vancomycin 50 mg/mL recon soln 125 mg PO QID 10 Days Qty: 100 0RF midodrine 5 mg tablet 10 mg feeding tube TID Rx Instructions: hold for SBP >130 Acidophilus Capsule 10 mg feeding tube DAILY Qty: 30 0RF gabapentin 100 mg capsule 100 mg feeding tube BEDTIME Qty: 30 0RF Osmolite 1.5 Drew 0.06 gram-1.5 kcal/mL liquid 1,440 ea feeding tube Q4H Qty: 237 0RF Rx Instructions: Bolus feed 24ml for a total of 1440ml daily. Elevate head of bed to 30-45 degrees during feed and 1 hour after. Interventions: ED Discharge Assessment Last Done: 01/11/25 22:32 Discharge Date/Time: 01/11/25 22:33 Print Language: [place]
[2025-01-11 18:33] VITALS: BP 112/92; PULSE 78; RESP 16; TEMP 36.3; O2SAT 93
--- NOTE | 2025-01-11 18:33 | PC.NURSE ---
patient g tube noted to have redness and purulent dc, pus swabbed with culture and sent to lab. patient shows no signs of pain/discomfort at this time. patient folding socks she came with from [facility]. staff member at bedside, states he is willing to tx patient home.
[2025-01-11 22:32] VITALS: BP 112/92; PULSE 78; RESP 16; TEMP 36.3; O2SAT 93
--- OUTSIDE RECORDS SUMMARY | 2025-02-04 20:00 | XMS_ITS | Clinical Summary ---
Author Organization Unknown Care Team Providers Care Flight Nurse Name Role Phone NORIS KEEN, WANDA Unavailable Unavailable ZEINAB RN, AURE Unavailable Unavailable Payers Payer Name Policy Type Policy Number Effective Date Expira tion Date MEDIC[place] - [place] [id number] Problems Condition Name Condition Details Condition Category Status Onset Date Resolution Date Last Treatment Date Treating Clinician Comments ENTEROCOLITI S D/T CLOSTRIDIUM DIFFICILE, NOT SPCF RECUR Active 07-06 00:00: 00 ACUTE RESPIRATORY FAILURE WITH HYPOXIA Active 07-06 00:00: 00 ACUTE PULMONARY EDEMA Active 07-06 00:00: 00 PNEUMONITIS DUE TO INHALATION OF FOOD AND VOMIT Active 07-06 00:00: 00 HYPOTHYROIDI SM, UNSPECIFIED Active 07-06 00:00: 00 DEM IN OTH DIS CLASSD ELSWHR, UNSP SEV, WITH OTH BEH DISTRB Active 07-06 00:00: 00 GASTROSTOMY STATUS Active 07-06 00:00: 00 ANEMIA, UNSPECIFIED Active - 00:00: 00 OTHER HYPOTENSION Active 07-06 00:00: 00 HYPERLIPIDEM IA, UNSPECIFIED Active 07-06 00:00: 00 DOWN SYNDROME, UNSPECIFIED Active - 00:00: 00 ENCEPHALOPAT HY, UNSPECIFIED Active 07-06 00:00: 00 DYSPHASIA FOLLOWING CEREBRAL INFARCTION Active - 00:00: 00 DYSPHAGIA, UNSPECIFIED Active - 00:00: 00 Problems related to health literacy Active - 00:00: 00 DEPENDENCE ON WHEELCHAIR Active 07-06 00:00: 00 SCORER SINGLE (CURRENT) USE OF ASPIRIN Active 07-06 00:00: 00 OTHER SCORER SINGLE (CURRENT) DRUG THERAPY Active 07-06 00:00: 00 Allergies, Adverse Reactions, Alerts Allergy Name Allergy Type Status Severity Reaction(s) Onset Date Inactive Date Treating Clinician Comments AMOXICILLIN Propensity to adverse reactions Active 12-08 23:26: 45 CLINDAMYCIN HCL Propensity to adverse reactions Active 12-08 23:27: 03 SULFAMETHOXA ZOLE Propensity to adverse reactions Active 12-08 23:28: 12 TRIMETHOPRIM Propensity to adverse reactions Active 12-08 23:29: 57 SULFA (SULFONAMIDE ANTIBIOTICS) Propensity to adverse reactions Active 12-12 09:06: 05 Medications Ordered Medication Name Filled Medication Name Start Date Stop Date Current Medication? Ordering Clinician Indication Dosage Frequency Signature (SIG) Comments Components Acidophilus capsule 12-08 00:00: 00 Yes [id number] 1 capsule DAILY 1 capsule DAILY (route: oral) Alternate Route: G-TUBE. Med Classific ation: Gastroint estinal Therapy Agents Pain Relief (acetaminop hen) 160 mg/5 mL oral liquid 12-08 00:00: 00 Yes [id number] 640 mg EVERY 4 HOURS 640 mg EVERY 4 HOURS (route: oral) Alternate Route: G-TUBE. Med Classific ation: Analgesic , Anti-infl ammatory or Antipyret ic Aspirin Childrens 81 mg chewable tablet 12-08 00:00: 00 Yes [id number] 1 tablet DAILY 1 tablet DAILY (route: oral) Alternate Route: G-TUBE. Med Classific ation: Hematolog ical Agents Cetaphil Moisturizin g lotion 12-08 00:00: 00 Yes [id number] 1 mL NEEDED 1 mL NEEDED (route: topical) Med Classific ation: Dermatolo gical Dulcolax (magnesium hydroxide) 400 mg/5 mL oral suspension 12-08 00:00: 00 Yes [id number] 30 mL DAILY 30 mL DAILY (route: oral) Alternate Route: G-TUBE. Med Classific ation: Gastroint estinal Therapy Agents Fleet Enema 19 gram-7 gram/118 mL 12-08 00:00: 00 Yes [id number] 19 g DAILY 19 g EDWINA Y (route: rectal) Med Classific ation: Gastroint estinal Therapy Agents fluticasone propionate 50 mcg/actuati on nasal spray,suspe nsion 12-08 00:00: 00 Yes [id number] 1 spray DAILY 1 spray DAILY (route: nasal) Med Classific ation: Respirato ry Therapy Agents gabapentin 100 mg capsule 12-08 00:00: 00 Yes [id number] 1 capsule BEDTIME 1 capsule BEDTIME (route: oral) Alternate Route: G-TUBE. Med Classific ation: Central Nervous System Agents ipratropium 0.5 mg-albutero l 2.5 mg/2.5 mL solution for nebulizatio n 12-08 00:00: 00 Yes [id number] 3 mg NEEDED 3 mg NEEDED (route: inhalation ) Med Classific ation: Respirato ry Therapy Agents levothyroxi ne 137 mcg tablet 12-08 00:00: 00 Yes [id number] 1 tablet DAILY 1 tablet DAILY (route: oral) Alternate Route: G-TUBE. Med Classific ation: Endocrine midodrine 5 mg tablet 12-08 00:00: 00 Yes [id number] 2 tablet 3 TIMES DAILY 2 tablet 3 TIMES DAILY (route: oral) Alternate Route: G-TUBE. Med Classific ation: Cardiovas cular Therapy Agents oxcarbazepi ne 150 mg tablet 12-08 00:00: 00 Yes [id number] 1 tablet 2 TIMES DAILY 1 tablet 2 TIMES DAILY (route: oral) Alternate Route: G-TUBE. Med Classific ation: Central Nervous System Agents Proctosol HC 2.5 % topical cream perineal applicator 12-08 00:00: 00 Yes [id number] 1 applica tor 2 TIMES DAILY 1 applicator 2 TIMES DAILY (route: topical) Med Classific ation: Anorectal Preparati ons vancomycin 50 mg/mL oral solution 12-08 00:00: 00 Yes [id number] 2.5 mL EVERY OTHER DAY 2.5 mL EVERY OTHER DAY (route: oral) Alternate Route: G-TUBE. Med Classific ation: Anti-Infe ctive Agents Vital Signs Vital Name Observation Time Observation Value Commen ts Temperature 2025-01-07 11:30:00.000 97.4 [degF] Temperature 2025-01-04 11:23:00.000 97 [degF] Temperature 2024-12-30 11:56:00.000 97.8 [degF] Temperature 2024-12-28 10:42:00.000 98.2 [degF] Temperature 2024-12-28 10:40:00.000 98.2 [degF] Temperature 2024-12-23 10:10:00.000 97.8 [degF] Temperature 2024-12-22 09:34:00.000 98 [degF] Temperature 2024-12-19 11:05:00.000 97.8 [degF] Temperature 2024-12-13 10:24:00.000 97.1 [degF] Temperature 2024-12-08 09:17:00.000 97.5 [degF] BMI (%) 2024-12-08 09:17:00.000 17 kg/m2 Height 2024-12-08 09:17:00.000 56 [in_us] Pulse 2025-01-07 11:30:00.000 72 /min Pulse 2025-01-04 11:23:00.000 70 /min Pulse 2024-12-30 11:56:00.000 60 /min Pulse 2024-12-28 10:40:00.000 60 /min Pulse 2024-12-28 10:25:00.000 64 /min Pulse 2024-12-23 10:10:00.000 60 /min Pulse 2024-12-22 09:34:00.000 62 /min Pulse 2024-12-19 11:05:00.000 66 /min Pulse 2024-12-13 10:24:00.000 60 /min Pulse 2024-12-08 09:17:00.000 61 /min O2 Saturation (%) 2025-01-04 11:23:00.000 97 % O2 Saturation (%) 2024-12-28 10:40:00.000 93 % O2 Saturation (%) 2024-12-13 10:24:00.000 93 % O2 Saturation (%) 2024-12-08 09:17:00.000 94 % Respirations 2025-01-07 11:30:00.000 18 /min Respirations 2025-01-04 11:23:00.000 19 /min Respirations 2024-12-30 11:56:00.000 18 /min Respirations 2024-12-28 10:40:00.000 18 /min Respirations 2024-12-28 10:25:00.000 18 /min Respirations 2024-12-23 10:10:00.000 18 /min Respirations 2024-12-19 11:05:00.000 16 /min Respirations 2024-12-13 10:24:00.000 17 /min Respirations 2024-12-08 09:17:00.000 14 /min Weight (lbs) 2024-12-08 09:17:00.000 80 [lb_av] Systolic Blood Pressure 2025-01-07 11:30:00.000 122 mm [Hg] Systolic Blood Pressure 2025-01-04 11:23:00.000 126 mm [Hg] Systolic Blood Pressure 2024-12-30 11:56:00.000 116 mm [Hg] Systolic Blood Pressure 2024-12-28 10:42:00.000 128 mm [Hg] Systolic Blood Pressure 2024-12-28 10:40:00.000 128 mm [Hg] Systolic Blood Pressure 2024-12-23 10:10:00.000 114 mm [Hg] Systolic Blood Pressure 2024-12-22 09:34:00.000 110 mm [Hg] Systolic Blood Pressure 2024-12-19 11:05:00.000 112 mm [Hg] Systolic Blood Pressure 2024-12-13 10:24:00.000 118 mm [Hg] Systolic Blood Pressure 2024-12-08 09:17:00.000 122 mm [Hg] Diastolic Blood Pressure 2025-01-07 11:30:00.000 68 mm [Hg] Diastolic Blood Pressure 2025-01-04 11:23:00.000 70 mm [Hg] Diastolic Blood Pressure 2024-12-30 11:56:00.000 64 mm [Hg] Diastolic Blood Pressure 2024-12-28 10:42:00.000 62 mm [Hg] Diastolic Blood Pressure 2024-12-28 10:40:00.000 62 mm [Hg] Diastolic Blood Pressure 2024-12-23 10:10:00.000 64 mm [Hg] Diastolic Blood Pressure 2024-12-22 09:34:00.000 62 mm [Hg] Diastolic Blood Pressure 2024-12-19 11:05:00.000 64 mm [Hg] Diastolic Blood Pressure 2024-12-13 10:24:00.000 62 mm [Hg] Diastolic Blood Pressure 2024-12-08 09:17:00.000 76 mm [Hg] Plan of Treatment Planned Activity Planned Date Details Comments Future Scheduled Test SKILLED NU RSE TO EVALUATE PATIENT, IDENTIFY PRIMARY AND CO-MORBID CONDITIONS CODED PER CODING GUIDELINES, AND DEVELOP PATIENT SPECIFIC PLAN OF CARE THAT INCLUDES PATIENT GOAL FOR HOME HEALTH. [code = SKILLED NURSE TO EVALUATE PATIENT, IDENTIFY PRIMARY AND CO-MORBID CONDITIONS CODED PER CODING GUIDELINES, AND DEVELOP PATIENT SPECIFIC PLAN OF CARE THAT INCLUDES PATIENT GOAL FOR HOME HEALTH.] Future Scheduled Test SKILLED NU RSE FOR O/A, TEACHING RELATED TO GERD FOR EARLY IDENTIFICATION OF EXACERBATION OF DISEASE PROCESS. [code = SKILLED NURSE FOR O/A, TEACHING RELATED TO GERD FOR EARLY IDENTIFICATION OF EXACERBATION OF DISEASE PROCESS.] Future Scheduled Test SKILLED NU RSE FOR O/A OF RESPIRATORY SYSTEM TO IDENTIFY CHANGES ASSOCIATED WITH EXACERBATION AND TO PROVIDE SKILLED TEACHING ON MANAGEMENT OF RESPIRATORY FAILURE WITH HYPOXIA, PNA DISEASE PROCESS. [code = SKILLED NURSE FOR O/A OF RESPIRATORY SYSTEM TO IDENTIFY CHANGES ASSOCIATED WITH EXACERBATION AND TO PROVIDE SKILLED TEACHING ON MANAGEMENT OF RESPIRATORY FAILURE WITH HYPOXIA, PNA DISEASE PROCESS.] Future Scheduled Test SKILLED NU RSE FOR O/A AND SKILLED TEACHING RELATED TO SIGNS AND SYMPTOMS OF INFECTION AND INFECTION CONTROL MEASURES. [code = SKILLED NURSE FOR O/A AND SKILLED TEACHING RELATED TO SIGNS AND SYMPTOMS OF INFECTION AND INFECTION CONTROL MEASURES.] Future Scheduled Test SKILLED NU RSE FOR O/A OF SELF-CARE DEFICITS AND TO PROVIDE TEACHING RELATED TO SAFE PROVISION OF ADLS. [code = SKILLED NURSE FOR O/A OF SELF-CARE DEFICITS AND TO PROVIDE TEACHING RELATED TO SAFE PROVISION OF ADLS.] Future Scheduled Test SKILLED NU RSE FOR O/A OF MUSCULOSKELETAL STATUS AND TEACHING ON MEASURES TO MANAGE WEAKNESS AND TO MAINTAIN SAFETY WITH ACTIVITY [code = SKILLED NURSE FOR O/A OF MUSCULOSKELETAL STATUS AND TEACHING ON MEASURES TO MANAGE WEAKNESS AND TO MAINTAIN SAFETY WITH ACTIVITY] Future Scheduled Test SKILLED NU RSE FOR O/A AND TEACHING OF ENDOCRINE SYSTEM TO IDENTIFY CHANGES ASSOCIATED WITH EXACERBATION OF HYPOTHYROIDISM FOR EARLY INTERVENTION OF COMPLICATIONS. [code = SKILLED NURSE FOR O/A AND TEACHING OF ENDOCRINE SYSTEM TO IDENTIFY CHANGES ASSOCIATED WITH EXACERBATION OF HYPOTHYROIDISM FOR EARLY INTERVENTION OF COMPLICATIONS.] Future Scheduled Test SKILLED NU RSE FOR O/A TO IDENTIFY CHANGES ASSOCIATED WITH DOWN SYNDROME, ENCEPHALOPATHY, DYSPHASIA AND PROVIDE INSTRUCTION RELATED TO SAFETY MEASURES TO PREVENT INJURY SECONDARY TO IMPAIRED NEUROLOGICAL STATUS. SKILLED NURSE TO REPORT SIGNIFICANT CHANGES OF NEUROLOGIC STATUS TO PHYSICIAN FOR EARLY INTERVENTION. [code = SKILLED NURSE FOR O/A TO IDENTIFY CHANGES ASSOCIATED WITH DOWN SYNDROME, ENCEPHALOPATHY, DYSPHASIA AND PROVIDE INSTRUCTION RELATED TO SAFETY MEASURES TO PREVENT INJURY SECONDARY TO IMPAIRED NEUROLOGICAL STATUS. SKILLED NURSE TO REPORT SIGNIFICANT CHANGES OF NEUROLOGIC STATUS TO PHYSICIAN FOR EARLY INTERVENTION.] Future Scheduled Test PHYSICAL T HERAPIST TO EVALUATE PATIENT FOR GAIT TRAINING/BUILDING [code = PHYSICAL THERAPIST TO EVALUATE PATIENT FOR GAIT TRAINING/BUILDING] Future Scheduled Test SKILLED NU RSE FOR O/A AND SKILLED TEACHING RELATED TO ALTERED SKIN INTEGRITY RASH. [code = SKILLED NURSE FOR O/A AND SKILLED TEACHING RELATED TO ALTERED SKIN INTEGRITY RASH.] Future Scheduled Test SKILLED NU RSE FOR OBSERVATION AND ASSESSMENT TO IDENTIFY CHANGES ASSOCIATED WITH UNSPECIFIED DEMENTIA AND TEACHING RELATED TO SAFETY MEASURES TO PREVENT INJURY, ELOPEMENT RISKS, BEHAVIOR CHANGES, ACTIVITIES, AND ENVIRONMENTAL CHANGES ALL SECONDARY TO IMPAIRED COGNITIVE STATUS. [code = SKILLED NURSE FOR OBSERVATION AND ASSESSMENT TO IDENTIFY CHANGES ASSOCIATED WITH UNSPECIFIED DEMENTIA AND TEACHING RELATED TO SAFETY MEASURES TO PREVENT INJURY, ELOPEMENT RISKS, BEHAVIOR CHANGES, ACTIVITIES, AND ENVIRONMENTAL CHANGES ALL SECONDARY TO IMPAIRED COGNITIVE STATUS.] Future Scheduled Test SKILLED NU RSE FOR O/A AND TEACHING ON SIGNS AND SYMPTOMS AND MANAGEMENT OF HYPOTENSION [code = SKILLED NURSE FOR O/A AND TEACHING ON SIGNS AND SYMPTOMS AND MANAGEMENT OF HYPOTENSION] Future Scheduled Test SKILLED NU RSE FOR O/A AND SKILLED TEACHING RELATED TO SIGNS AND SYMPTOMS AND MANAGEMENT OF ANEMIA. [code = SKILLED NURSE FOR O/A AND SKILLED TEACHING RELATED TO SIGNS AND SYMPTOMS AND MANAGEMENT OF ANEMIA.] Future Scheduled Test VIRTUAL SIT FREQUENCY: 3 PRN VIRTUAL VISITS MAY BE PERFORMED UTILIZING [employer] SYSTEM TO OPTIMIZE SKILLED SERVICES FURNISHED ON THE PLAN OF CARE. SKILLED NURSE TO ESTABLISH SUPPORT MEASURES TO MINIMIZE RISK OF REHOSPITALIZATION, AND INSTRUCT PATIENT/CAREGIVER ON METHODS TO REDUCE AVOIDABLE HOSPITALIZATION. [code = VIRTUAL VISIT FREQUENCY: 3 PRN VIRTUAL VISITS MAY BE PERFORMED UTILIZING TELE[employer] SYSTEM TO OPTIMIZE SKILLED SERVICES FURNISHED ON THE PLAN OF CARE. SKILLED NURSE TO ESTABLISH SUPPORT MEASURES TO MINIMIZE RISK OF REHOSPITALIZATION, AND INSTRUCT PATIENT/CAREGIVER ON METHODS TO REDUCE AVOIDABLE HOSPITALIZATION.] Future Scheduled Test PATIENT NARVAEZ S A RISK OF HOSPITALIZATION AND ED USE. SKILLED NURSE TO ESTABLISH SUPPORT MEASURES TO MINIMIZE RISK OF HOSPITALIZATION AND ED USE, AND INSTRUCT PATIENT/CAREGIVER ON METHODS TO REDUCE AVOIDABLE HOSPITALIZATION AND ED USE. [code = PATIENT HAS A RISK OF HOSPITALIZATION AND ED USE. SKILLED NURSE TO ESTABLISH SUPPORT MEASURES TO MINIMIZE RISK OF HOSPITALIZATION AND ED USE, AND INSTRUCT PATIENT/CAREGIVER ON METHODS TO REDUCE AVOIDABLE HOSPITALIZATION AND ED USE.] Future Scheduled Test SKILLED NU RSE TO PROVIDE INSTRUCTION TO PATIENT/CAREGIVER RELATED TO DISCHARGE PLANNING. [code = SKILLED NURSE TO PROVIDE INSTRUCTION TO PATIENT/CAREGIVER RELATED TO DISCHARGE PLANNING.] Future Scheduled Test SKILLED NU RSE TO PERFORM ENVIRONMENTAL SAFETY RISK ASSESSMENT AND FALL RISK ASSESSMENT AND PROVIDE INSTRUCTION TO IMPLEMENT ENVIRONMENTAL SAFETY AND FALL PREVENTION STRATEGIES THROUGHOUT THE CERTIFICATION PERIOD. SKILLED NURSE WILL MAINTAIN SITUATIONAL AWARENESS AND WILL NOTIFY CLINICAL PHYSICIST CRYOGENICS AND PHYSICIAN/PROVIDER WITH ANY CHANGE IN CONDITION. [code = SKILLED NURSE TO PERFORM ENVIRONMENTAL SAFETY RISK ASSESSMENT AND FALL RISK ASSESSMENT AND PROVIDE INSTRUCTION TO IMPLEMENT ENVIRONMENTAL SAFETY AND FALL PREVENTION STRATEGIES THROUGHOUT THE CERTIFICATION PERIOD. SKILLED NURSE WILL MAINTAIN SITUATIONAL AWARENESS AND WILL NOTIFY CLINICAL PHYSICIST CRYOGENICS AND PHYSICIAN/PROVIDER WITH ANY CHANGE IN CONDITION.] Future Scheduled Test SKILLED NU RSE FOR OBSERVATION AND ASSESSMENT OF PATIENTS PAIN LEVEL AND EFFECTIVENESS OF PAIN MANAGEMENT REGIMEN. SKILLED NURSE TO INSTRUCT PATIENT/CAREGIVER REGARDING PHARMACOLOGIC AND NON-PHARMACOLOGIC PAIN CONTROL MEASURES. SKILLED NURSE TO REPORT TO PHYSICIAN IF PAIN LEVEL IS OUTSIDE OF ESTABLISHED PARAMETERS. [code = SKILLED NURSE FOR OBSERVATION AND ASSESSMENT OF PATIENTS PAIN LEVEL AND EFFECTIVENESS OF PAIN MANAGEMENT REGIMEN. SKILLED NURSE TO INSTRUCT PATIENT/CAREGIVER REGARDING PHARMACOLOGIC AND NON-PHARMACOLOGIC PAIN CONTROL MEASURES. SKILLED NURSE TO REPORT TO PHYSICIAN IF PAIN LEVEL IS OUTSIDE OF ESTABLISHED PARAMETERS.] Future Scheduled Test SKILLED NU RSE TO ASSESS PATIENT'S SKIN INTEGRITY AND INSTRUCT PATIENT/CAREGIVER ON MEASURES TO PREVENT PRESSURE ULCERS. [code = SKILLED NURSE TO ASSESS PATIENT'S SKIN INTEGRITY AND INSTRUCT PATIENT/CAREGIVER ON MEASURES TO PREVENT PRESSURE ULCERS.] Future Scheduled Test SKILLED NU RSE TO REVIEW PATIENT MEDICATIONS (PRESCRIPTION/OTC). INSTRUCT PATIENT/CAREGIVER ON ALL MEDICATIONS INCLUDING PURPOSE, WHEN TO TAKE, IMPORTANCE OF MEDICATION ADHERENCE, MONITORING OF EFFECTIVENESS, ADVERSE DRUG REACTIONS, POSSIBLE SIDE EFFECTS, AND WHEN TO NOTIFY AGENCY OR PHYSICIAN/PROVIDER OF ANY CONCERNS. [code = SKILLED NURSE TO REVIEW PATIENT MEDICATIONS (PRESCRIPTION/OTC). INSTRUCT PATIENT/CAREGIVER ON ALL MEDICATIONS INCLUDING PURPOSE, WHEN TO TAKE, IMPORTANCE OF MEDICATION ADHERENCE, MONITORING OF EFFECTIVENESS, ADVERSE DRUG REACTIONS, POSSIBLE SIDE EFFECTS, AND WHEN TO NOTIFY AGENCY OR PHYSICIAN/PROVIDER OF ANY CONCERNS.] Future Scheduled Test PHYSICAL T HERAPIST TO EVALUATE PATIENT SECONDARY TO FUNCTIONAL DEFICITS/SAFETY CONCERNS. PHYSICAL THERAPY TO ESTABLISH /UPGRADE/DOWNGRADE THERAPEUTIC EXERCISE PROGRAM AND INSTRUCT PATIENT/CAREGIVER ON EXERCISE PRECAUTIONS WITH WRITTEN HOME PROGRAM. MAY INCLUDE PROM, AAROM, AROM, RROM APPROPRIATE TO IMPROVE FUNCTIONAL STRENGTH AND RANGE OF MOTION. PHYSICAL THERAPY TO INSTRUCT PATIENT/CAREGIVER ON SAFE TRANSFER TECHNIQUES USING PROPER BODY MECHANICS AND EQUIPMENT. PHYSICAL THERAPY TO INSTRUCT PATIENT/CAREGIVER ON GAIT TRAINING TECHNIQUES USING APPROPRIATE ASSISTIVE DEVICE, PROPER BODY MECHANICS TO IMPROVE MOBILITY, AND PREVENT INJURY OF PATIENT AND/OR CAREGIVER. PHYSICAL THERAPY TO ASSESS AND RECOMMEND HOME SAFETY ADAPTATIONS AND EDUCATE PATIENT /CAREGIVER ON FALL PREVENTION STRATEGIES. SUMMARY OF THERAPY EVAL/ASSESSMENT FINDINGS AND REASON(S) SKILLS OF A THERAPIST ARE INDICATED: PATIENT REFERRED TO HOME THERAPY DUE TO RECENT HOSPITALIZATION FOR ASPIRATION PNEUMONIA. PATIENT IS NOW NPO. PATIENCE PRIOR LEVEL OF MOBILITY WAS INDEPENDENT IN PRISON. PATIENT HAS BEEN NON-AMBULATORY DID TAKE A FEW STEPS WITH HER SISTER YESTERDAY. PAST MEDICAL HISTORY INCLUDES CEREBRAL WHITE MATTER DISEASE, SYNCOPE, HYPERLIPIDEMIA, CONSTIPATION, DEMENTIA, DOWN SYNDROME, OSTEOPENIA, RIGHT ANKLE FRACTURE, CVA, MITRAL VALVE REGURGITATION, LEFT BBB IN PULMONARY EDEMA. PATIENT'S BASELINE WAS INDEPENDENT AND PRISON WITH AMBULATION. GOAL IS TO RETURN TO EMULATION. PATIENT IS PLEASANTLY CONFUSED ABLE TO FOLLOW COMMANDS WITH MINIMAL INSTRUCTION. NO PAIN CURRENTLY REPORTED. PATIENT DOES HAVE BLADDER INCONTINENCE. PATIENT REQUIRES ASSISTANCE TIMES ONE FOR ADL AND IADL CARE. RESTING VITAL SIGNS WITHIN NORMAL LIMITS. NO NOTED EDEMA. BILATERAL LOWER EXTREMITY WEAKNESS CAUSING DIFFICULTY WITH TRANSFERS. PATIENT REQUIRES ASSISTANCE TIMES ONE FOR BED MOBILITY TRANSFERS AND AMBULATION. PATIENT WAS ABLE TO TAKE FOUR STEPS. PATIENT HAS RAMP TO ENTER HOME. PHYSICAL THERAPY WILL FOLLOW ON CAREGIVER TRAINING FUNCTIONAL MOBILITY TRAINING STRENGTH TRAINING ENDURANCE TRAINING. PRISON AGREES WITH PLAN OF CARE. [code = PHYSICAL THERAPIST TO EVALUATE PATIENT SECONDARY TO FUNCTIONAL DEFICITS/SAFETY CONCERNS. PHYSICAL THERAPY TO ESTABLISH /UPGRADE/DOWNGRADE THERAPEUTIC EXERCISE PROGRAM AND INSTRUCT PATIENT/CAREGIVER ON EXERCISE PRECAUTIONS WITH WRITTEN HOME PROGRAM. MAY INCLUDE PROM, AAROM, AROM, RROM APPROPRIATE TO IMPROVE FUNCTIONAL STRENGTH AND RANGE OF MOTION. PHYSICAL THERAPY TO INSTRUCT PATIENT/CAREGIVER ON SAFE TRANSFER TECHNIQUES USING PROPER BODY MECHANICS AND EQUIPMENT. PHYSICAL THERAPY TO INSTRUCT PATIENT/CAREGIVER ON GAIT TRAINING TECHNIQUES USING APPROPRIATE ASSISTIVE DEVICE, PROPER BODY MECHANICS TO IMPROVE MOBILITY, AND PREVENT INJURY OF PATIENT AND/OR CAREGIVER. PHYSICAL THERAPY TO ASSESS AND RECOMMEND HOME SAFETY ADAPTATIONS AND EDUCATE PATIENT /CAREGIVER ON FALL PREVENTION STRATEGIES. SUMMARY OF THERAPY EVAL/ASSESSMENT FINDINGS AND REASON(S) SKILLS OF A THERAPIST ARE INDICATED: PATIENT REFERRED TO HOME THERAPY DUE TO RECENT HOSPITALIZATION FOR ASPIRATION PNEUMONIA. PATIENT IS NOW NPO. PATIENCE PRIOR LEVEL OF MOBILITY WAS INDEPENDENT IN PRISON. PATIENT HAS BEEN NON-AMBULATORY DID TAKE A FEW STEPS WITH HER SISTER YESTERDAY. PAST MEDICAL HISTORY INCLUDES CEREBRAL WHITE MATTER DISEASE, SYNCOPE, HYPERLIPIDEMIA, CONSTIPATION, DEMENTIA, DOWN SYNDROME, OSTEOPENIA, RIGHT ANKLE FRACTURE, CVA, MITRAL VALVE REGURGITATION, LEFT BBB IN PULMONARY EDEMA. PATIENT'S BASELINE WAS INDEPENDENT AND PRISON WITH AMBULATION. GOAL IS TO RETURN TO EMULATION. PATIENT IS PLEASANTLY CONFUSED ABLE TO FOLLOW COMMANDS WITH MINIMAL INSTRUCTION. NO PAIN CURRENTLY REPORTED. PATIENT DOES HAVE BLADDER INCONTINENCE. PATIENT REQUIRES ASSISTANCE TIMES ONE FOR ADL AND IADL CARE. RESTING VITAL SIGNS WITHIN NORMAL LIMITS. NO NOTED EDEMA. BILATERAL LOWER EXTREMITY WEAKNESS CAUSING DIFFICULTY WITH TRANSFERS. PATIENT REQUIRES ASSISTANCE TIMES ONE FOR BED MOBILITY TRANSFERS AND AMBULATION. PATIENT WAS ABLE TO TAKE FOUR STEPS. PATIENT HAS RAMP TO ENTER HOME. PHYSICAL THERAPY WILL FOLLOW ON CAREGIVER TRAINING FUNCTIONAL MOBILITY TRAINING STRENGTH TRAINING ENDURANCE TRAINING. PRISON AGREES WITH PLAN OF CARE.] Goal Patient Goal - P ER CG TO B ABLE TO WALK AGAIN Goal Provider Goal - A PLAN OF CARE WILL BE ESTABLISHED THAT MEETS PATIENT'S ASSISTED NEEDS AND INCLUDES PATIENT GOAL FOR HOME HEALTH. Goal Provider Goal - EXACERBATIONS OF GASTROINTESTINAL DISEASE WILL BE PROMPTLY IDENTIFIED AND INTERVENTIONS IMPLEMENTED TO MINIMIZE RISKS TO PATIENT BY END OF EPISODE. Goal Provider Goal - PATIENT/CAREGIVER WILL VERBALIZE/DEMONSTRATE MANAGEMENT OF RESPIRATORY DISEASE PROCESS. CHANGES IN RESPIRATORY STATUS WILL BE IDENTIFIED AND REPORTED TO PHYSICIAN FOR PROMPT INTERVENTION THROUGHOUT THE CERTIFICATION PERIOD. Goal Provider Goal - PATIENT/CAREGIVER WILL VERBALIZE/DEMONSTRATE UNDERSTANDING OF S/S OF INFECTION AND INFECTION CONTROL MEASURES. SIGNS AND SYMPTOMS OF INFECTION WILL BE IDENTIFIED AND PHYSICIAN NOTIFIED FOR PROMPT INTERVENTION THROUGHOUT THE CERTIFICATION PERIOD. Goal Provider Goal - PATIENT/CAREGIVER WILL VERBALIZE/DEMONSTRATE UNDERSTANDING OF SAFE PROVISION OF ADLS BY THE END OF THE CERTIFICATION PERIOD. Goal Provider Goal - PATIENT/CAREGIVER WILL VERBALIZE/DEMONSTRATE ABILITY TO MANAGE WEAKNESS MUSCULOSKELETAL DISEASE WHILE MAINTAINING SAFETY THROUGHOUT THE EPISODE. Goal Provider Goal - PATIENT/CAREGIVER WILL VERBALIZE SIGNS AND SYMPTOMS OF EXACERBATION OF ENDOCRINE DIAGNOSIS TO REPORT TO NURSE/PHYSICIAN THROUGHOUT THE CERTIFICATION PERIOD. Goal Provider Goal - CHANGES IN NEUROLOGIC STATUS WILL BE IDENTIFIED AND REPORTED TO THE PHYSICIAN FOR PROMPT INTERVENTION OF ASSOCIATED RISK. PATIENT/CAREGIVER WILL VERBALIZE/DEMONSTRATE APPROPRIATE SAFETY MEASURES TO PREVENT INJURY BY THE END OF THE CERTIFICATION PERIOD. Goal Provider Goal - A PHYSICAL THERAPY EVALUATION TO BE COMPLETED WITH RECOMMENDATIONS AND/OR WRITTEN PLAN OF TREATMENT ESTABLISHED FOR PHYSICIANS SIGNATURE. Goal Provider Goal - PATIENT/CAREGIVER WILL VERBALIZE/DEMONSTRATE UNDERSTANDING OF TEACHING RELATED TO ALTERED SKIN INTEGRITY RASH BY END OF CERTIFICATION PERIOD. Goal Provider Goal - PATIENT/CAREGIVER WILL VERBALIZE /DEMONSTRATE APPROPRIATE ENVIRONMENTAL/SAFETY MODIFICATIONS IN RESPONSE TO BEHAVIOR/COGNITIVE CHANGES ASSOCIATED WITH DEMENTIA DIAGNOSIS THROUGHOUT THE CERTIFICATION PERIOD. Goal Provider Goal - PATIENT/CAREGIVER WILL VERBALIZE SIGNS AND SYMPTOMS OF HYPOTENSION AND WILL BE ABLE TO DEMONSTRATE ABILITY TO MANAGE EXACERBATION BY END OF THE EPISODE. Goal Provider Goal - PATIENT/CARGIVER WILL VERBALIZE UNDERSTANDING OF ANEMIA INCLUDING SIGNS AND SYMPTOMS, MANAGEMENT OF COMPLICATIONS, AND PRESCRIBED TREATMENT REGIMEN BY END OF EPISODE. Goal Provider Goal - PATIENT/CAREGIVER WILL UTILIZE VIRTUAL VISITS TO ACHIEVE GOALS OUTLINED ON THE PLAN OF CARE. PATIENT WILL HAVE SUPPORT MEASURES ESTABLISHED TO PREVENT HOSPITALIZATION AND PATIENT/CAREGIVER WILL VERBALIZE/DEMONSTRATE METHODS TO REDUCE AVOIDABLE HOSPITALIZATION THROUGHOUT THE CERTIFICATION PERIOD. Goal Provider Goal - PATIENT WILL HAVE SUPPORT MEASURES ESTABLISHED TO PREVENT HOSPITALIZATION AND ED USE AND PATIENT/CAREGIVER WILL VERBALIZE/DEMONSTRATE METHODS TO REDUCE AVOIDABLE HOSPITALIZATION AND ED USE BY END OF EPISODE. Goal Provider Goal - PATIENT/CAREGIVER WILL VERBALIZE UNDERSTANDING OF DISCHARGE PLANNING INSTRUCTIONS BY DATE OF DISCHARGE. Goal Provider Goal - PATIENT/CAREGIVER WILL VERBALIZE/DEMONSTRATE EFFECTIVE ENVIRONMENTAL SAFETY AND FALL PREVENTION STRATEGIES, WILL REMAIN SAFE IN THE COMMUNITY, AND WILL BE FREE OF DANGER TO SELF AND OTHERS THROUGHOUT THE CERTIFICATION PERIOD. Goal Provider Goal - PATIENT/CAREGIVER WILL DEMONSTRATE UNDERSTANDING OF PHARMACOLOGIC AND NONPHARMACOLOGIC PAIN CONTROL MEASURES AND PATIENT WILL HAVE IMPROVEMENT IN PAIN INTERFERING WITH ACTIVITY EVIDENCED BY PAIN AT A LEVEL THAT IS ACCEPTABLE TO THE PATIENT AND PAIN LEVEL WITHIN ESTABLISHED PARAMETERS BY END OF CERTIFICATION PERIOD. Goal Provider Goal - PATIENT/CAREGIVER WILL VERBALIZE UNDERSTANDING OF PRESSURE ULCER PREVENTION BY END OF THE EPISODE. Goal Provider Goal - PATIENT/CAREGIVER WILL VERBALIZE UNDERSTANDING OF EDUCATION PROVIDED ON MEDICATIONS BY THE END OF THE CERTIFICATION PERIOD. Goal Provider Goal - PHYSICAL THERAPY EVALUATION TO BE COMPLETED WITH RECOMMENDATIONS AND/OR WRITTEN TREATMENT PLAN OF CARE ESTABLISHED FOR THE PHYSICIANS SIGNATURE PATIENT/CAREGIVER WILL PERFORM THERAPEUTIC EXERCISE/S AND DEMONSTRATE PARTICIPATION IN A HOME PROGRAM. PATIENT/CAREGIVER WILL DEMONSTRATE SAFE TRANSFERS USING APPROPRIATE ASSISTIVE DEVICE, BODY MECHANICS AND EQUIPMENT. PATIENT/CAREGIVER WILL DEMONSTRATE IMPROVED GAIT TECHNIQUES TO MINIMIZE RISK OF INJURY. PATIENT/CAREGIVER WILL DEMONSTRATE/VERBALIZE UNDERSTANDING OF RECOMMENDATIONS TO INCREASE SAFETY IN THE HOME AND FALL PREVENTION. Encounters Start Date/Time End Date/Time Encounter Type Admission Type Attending [facility] Care Department Encounter ID Discharge Date Discharge Status Discharge Condition Discharge Reason Percent Goals Met 2024-12-08 00:00:00 2025-02-05 00:00:00 Outpatient NEW ADMISSION [facility] [id number] 45.95
== END 2025-01-11 22:33 | disposition home or self-care (01) ==
PROVIDERS: Emergency Provider Emergency Medicine; PCP Internal Medicine
DX: K52.89 Other specified noninfective gastroenteritis and colitis (principal); L03.90 Cellulitis, unspecified; R19.7 Diarrhea, unspecified; Z79.899 Other long term (current) drug therapy
CPT/HCPCS: 74018; 87070; 87077; 87186; 87205; 99283; 99284

== ENCOUNTER → 2025-01-11 17:23 | Outpatient (BNV) | payer MEDICARE, MEDICAID, SELFPAY | PROVIDERS: Emergency Provider Emergency Medicine; PCP Internal Medicine; Visit Provider Radiology Diagnostic Radiology | DX: Z43.1 Encounter for attention to gastrostomy (principal) | CPT/HCPCS: 74018 ==

== ENCOUNTER → 2025-01-13 23:59 | Outpatient (BNV) | payer MEDICARE, MEDICAID, SELFPAY | PROVIDERS: PCP Internal Medicine; Visit Provider Internal Medicine | DX: J96.01 Acute respiratory failure with hypoxia (principal); J81.0 Acute pulmonary edema | CPT/HCPCS: G0180 ==

== ENCOUNTER 2025-02-17 10:35 | Outpatient (AMB) | payer MEDICARE, MEDICAID, SELFPAY ==
--- NOTE | 2025-02-17 10:39 | MHC.PC.OV ---
Vital Signs 02/17/25 10:41 Weight 78 lb 7.753 oz BP 108/58 L Blood Pressure Location Lt brachial Position Sitting Pulse 74 Pulse Oximetry (%) 98 Intake Visit Reasons: [facility] 01/25 Special Events Assistant Required: No Accompanied by: Self / Same As Patient Allergies Sulfa (Sulfonamide Antibiotics) Allergy (Mild, Verified 02/17/25 10:40) HIVES sulfamethoxazole (From Bactrim) Allergy (Mild, Verified 02/17/25 10:40) HIVES amoxicillin (Amoxicillin) Allergy (Unknown, Verified 02/17/25 10:40) HIVES Clindamycin HCl Allergy (Unknown, Verified 02/17/25 10:40) rash trimethoprim (From Bactrim) Allergy (Unknown, Verified 02/17/25 10:40) HIVES Tobacco use date assessed: 12/16/24 Fall risk assessment: No Falls in past year Dental Screening Dental Screen Date: 02/17/25 Did you have a dental visit in the last 12 months?: Yes Did you have a dental problem in the last 6 months where you did not have access to dental care?: No Was dental information given to patient?: Patient has dentist HPI HPI Comments History of Present Illness Details 64 y/o Female pateint who presents to the clinic accompanied by her pump servicer for HDF. Pt was admitted at [facility] on 01/12 - 01/25 for an evaluation and treatment of Cellulitis around the G-Tube and Cdiff infection. Pt also gets Cdiff infections frequently after Hospital discharges with administration of Abx. The Facility Worker reports that Pt might another infection currently due to loose stool with foul smell. Facility Worker wondering if she needed to bring her to the hospital for Abx administration. Pt has skin irritation around the Gtube/Stoma area that started 2 days ago. [facility] Medical History (Updated 02/17/25 @ 13:10 by Stephain Mackey NP) G-tube site cellulitis Cutaneous candidiasis Medicare annual wellness visit, subsequent Preoperative cardiovascular examination New onset left bundle branch block (LBBB) Lethargy COVID-19 virus infection Mental status alteration Colon cancer screening Atlantoaxial instability Cholelithiasis Mental and behavioral problem Hypercholesterolemia Vitamin D deficiency Closed right ankle fracture Patent foramen ovale Hypothyroid Megaloblastic anemia CVA (cerebral vascular accident) Cataracts, bilateral Down syndrome Jorge L's disease Surgical History Clubfoot Hx of tubal ligation Hx of cataract surgery History of colonoscopy Family History Father No problems noted. Mother Hx of cancer of lung Social History Household Members: Other Household Members Other:: [facility] Housing: Other Housing Other:: [facility] Do you presently have visiting nurse or other home services: Yes Unable to assess alcohol history related to: Unknown Alcohol intake: never Comment: residential staff at bedside Patient Tobacco Use Status: Never used Tobacco e-Cigarette/Vaping Use: Never Used Second Hand Smoke Exposure: No Advance Directives Date on File: 10/26/24 service: No Current occupational status: disabled Cognitive needs: Yes (Wheelchair) Hearing needs: No Vision needs: Yes (Glasses) Questionnaire PHQ-9 Over the last 2 weeks, how often have you been bothered by any of the following problems? 1. Little interest or pleasure in doing things: not at all 2. Feeling down, depressed, or hopeless: not at all Source: Developed by Drs. Monico Cuellar, Peggy Morris, Parvez Guerrier and colleagues, with an educational tesha from [email or web address]. Thrive Questionnaire Date Thrive assessed: 02/17/25 NEHA-7 AMB Questionnaire NEHA-7 Date NEHA - 7 assessed: 02/17/25 Source: Developed by Drs. Monico Cuellar, Peggy Morris, Parvez Guerrier and colleagues, with an educational tesha from [email or web address]. Review of Systems Const All systems reviewed & are unremarkable except as noted in HPI and below Physical exam (Primary Care) Vital Signs: Last Vital Signs Pulse 74 02/17/25 10:41 BP 108/58 L 02/17/25 10:41 Pulse Ox 98 02/17/25 10:41 Tobacco/Smoking Status: Tobacco use Status Tobacco use date assessed 12/16/24 02/17/25 10:41 Patient Tobacco Use Status Never used Tobacco 02/17/25 10:41 e-Cigarette/Vaping Use Never Used 02/17/25 10:41 Thrive Assessment: Date of Thrive Assessment Date Thrive assessed 02/17/25 02/17/25 10:41 Resp Effort & Inspection: normal respiratory effort Auscultation: clear to auscultation bilaterally Cardio Heart sounds: S1 normal heart sound present and S2 normal heart sound present GI Abdomen image:  1. Red, itchy, and scaly patches Coding Level of Care Code Est Pt Level 4 (89358) Diagnoses G-tube site cellulitis K94.22; L03.319 C. difficile diarrhea A04.72 Cutaneous candidiasis B37.2 Time Spent (min) 20 Assessment & Plan Assessment & Plan (1) G-tube site cellulitis: Code(s): K94.22 - Gastrostomy infection; L03.319 - Cellulitis of trunk, unspecified Category: Medical Plan: Resolved. (2) C. difficile diarrhea: Code(s): A04.72 - Enterocolitis due to Clostridium difficile, not specified as recurrent Category: Medical Plan: Advised to return to Hospital for Treatment with IV Abx. (3) Cutaneous candidiasis: Code(s): B37.2 - Candidiasis of skin and nail Category: Medical Plan: Ordered Fungal Cream. Medications: New clotrimazole 1% 1 appl topical BID 30 grams 0RF B37.2 - Candidiasis of skin and nail
--- OUTSIDE RECORDS SUMMARY | 2025-02-17 10:40 | XMS_ITS | Encounter Summary ---
Author Organization [facility] Address [address] [place] [address] Care Team Providers Care Rv Repair Technician Name Role Phone Erickson Melton MD Primary Care Provider [phone] Encounter Details Date Type Department Care Team (Late st Contact Info) Description 10/27/2024 Lab Requisition [facility] [address] [place] [address] Erickson Melton MD [address] [place] [address] Enterocolitis due to Clostridium difficile, not specified [...] care for your loved ones. For example, home child care provider or elderly care for an older adult? [...] mmol/L LAB CHEMISTRY METHOD 10/27/2024 9:33 AM [facility] Potassium 4.3 3.5 - 5.5 mmol/L LAB CHEMISTRY METHOD 10/27/2024 9:33 AM [facility] Comment:Hemolysis present Chloride 105 96 - 110 mmol/L LAB CHEMISTRY METHOD 10/27/2024 9:33 AM [facility] CO2 29 21 - 32 mmol/L LAB CHEMISTRY METHOD 10/27/2024 9:33 AM [facility] Anion Gap 6 3 - 11 LAB CHEMISTRY METHOD 10/27/2024 9:33 AM [facility] Glucose 82 70 - 100 mg/dL LAB CHEMISTRY METHOD 10/27/2024 9:33 AM [facility] BUN 33(H) 5 - 25 mg/dL LAB CHEMISTRY METHOD 10/27/2024 9:33 AM [facility] Creatinine 0.68 0.50 - 1.10 mg/dL LAB CHEMISTRY METHOD 10/27/2024 9:33 AM [facility] eGFR 97 >=60 mL/min/1. 73m2 LAB CHEMISTRY METHOD 10/27/2024 9:33 AM [facility] Comment:Calculation based on the Chronic Kidney Disease Epidemiology Collaboration (CKD-EPI) equation refit without adjustment for race. BUN/Creatinine Ratio 48.5 LAB CHEMISTRY METHOD 10/27/2024 9:33 AM [facility] Calcium 8.7 8.5 - 10.5 mg/dL LAB CHEMISTRY METHOD 10/27/2024 9:33 AM [facility] Blood Venous blood specimen / Unknown Venipuncture / Unknown 10/27/2024 6:46 AM EDT 10/27/2024 7:59 AM EDT us Erickson Melton MD LAB BLOOD ORDERABLES Final Result [facility] [address] [place] [address], * (ABNORMAL) Complete blood count (10/27/2024 6:46 AM EDT) WBC 10.5 4.8 - 10.8 K/mcL LAB HEMETOLOGY METHOD 10/27/2024 8:39 AM EDT [facility] RBC 3.80 3.80 - 4.80 M/mcL LAB HEMETOLOGY METHOD 10/27/2024 8:39 AM [facility] Hemoglobin 13.0 11.5 - 16.0 g/dL LAB HEMETOLOGY METHOD 10/27/2024 8:39 AM [facility] Hematocrit 42.2 35.0 - 47.0 % LAB HEMETOLOGY METHOD 10/27/2024 8:39 AM [facility] MCV 111.9(H) 79.0 - 98.0 FL LAB HEMETOLOGY METHOD 10/27/2024 8:39 AM [facility] MCH 34.5(H) 27.0 - 32.0 pcg LAB HEMETOLOGY METHOD 10/27/2024 8:39 AM [facility] MCHC 30.8(L) 32.0 - 37.0 g/dL LAB HEMETOLOGY METHOD 10/27/2024 8:39 AM [facility] RDW 17.3(H) 11.0 - 15.0 % LAB HEMETOLOGY METHOD 10/27/2024 8:39 AM [facility] Platelets 181 130 - 400 K/mcL LAB HEMETOLOGY METHOD 10/27/2024 8:39 AM [facility] MPV 10.6 7.0 - 11.0 FL LAB HEMETOLOGY METHOD 10/27/2024 8:39 AM EDT [facility] NRBC 0.0 <1.0 % LAB HEMETOLOGY METHOD 10/27/2024 8:39 AM EDT [facility] NRBC Absolute 0.00 <0.10 K/mcL LAB HEMETOLOGY METHOD 10/27/2024 8:39 AM EDT [facility] Blood Venous blood specimen / Unknown Venipuncture / Unknown 10/27/2024 6:46 AM EDT 10/27/2024 7:59 AM EDT Erickson Melton MD LAB BLOOD ORDERABLES Final Result [facility] [address] [place] [address], documented in this encounter Visit Diagnoses Diagnosis Enterocolitis due to Clostridium difficile, not specified as recurrent documented in this encounter Additional Health Concerns Infection Onset Date Last Indicated Resolved Time C. difficile Comment:Tested (+) at SNF; started on PO ABT 09/29/24 NL 09/29/2024 10/26/2024 11/19/2024 7:04 PM EDT C. difficile Rule-Out 01/13/2025 01/13/20252024 4:32 AM EDT C. difficile Rule-Out 01/13/2025 01/13/20252024 10:19 AM EDT C. difficile 01/13/2025 01/13/2025 02/06/2025 7:06 PM EDT documented as of this encounter Care Teams Rv Repair Technician Relationship Specialty Start Date End Date Erickson Melton MD [address] [place] [id number] PCP - General Internal Medicine 09/13/24 documented as of this encounter
[2025-02-17 10:41] VITALS: BP 108/58; PULSE 74; O2SAT 98
== END 2025-02-17 11:33 | disposition home or self-care (01) ==
LOC: HO.HMCH 10:35
PROVIDERS: PCP Internal Medicine; Visit Provider Nurse Practitioner Family
DX: K94.22 Gastrostomy infection (principal); L03.319 Cellulitis of trunk, unspecified; A04.72 Enterocolitis due to Clostridium difficile, not specified as recurrent; B37.2 Candidiasis of skin and nail

== ENCOUNTER → 2025-02-17 10:35 | Outpatient (BNVA) | payer MEDICARE, MEDICAID, SELFPAY | PROVIDERS: PCP Internal Medicine; Visit Provider Nurse Practitioner Family | DX: K94.22 Gastrostomy infection (principal); L03.319 Cellulitis of trunk, unspecified; A04.72 Enterocolitis due to Clostridium difficile, not specified as recurrent; B37.2 Candidiasis of skin and nail | CPT/HCPCS: 99212 ==

== ENCOUNTER 2025-03-04 22:09 | Inpatient (IN) | payer MEDICARE, MEDICAID, SELFPAY ==
--- OUTSIDE RECORDS SUMMARY | 2025-03-03 18:11 | XMS_ITS | Continuity of Care Document ---
Author Organization [facility] ter Address [address] [place] [id number] Care Team Providers Care Lead Front End Developer Name Role Phone Po Alfredo KEEN Primary Care Physician Encounter [facility] Date(s): 02/24/25 - 03/03/[address] [address]- Discharge Disposition: A-D/C Home Attending Physician: Stephani Baum DO Admitting Physician: Juan Diego Sanchez DO Referring Physician: Not on Staff, Referring MD Encounter Type: Disch IP Allergies, Adverse Reactions, Alerts Substance Criticality Severity Reaction Reaction Severity Status clindamycin Amoxycillin all ergy Allergy to sulfa drugs Active amoxicillin 1 Active trimethoprim hives Active sulfa drugs Active 1pt tolerated piperacilin/tazobactam in 11/2018 admission Medications acetaminophen 325 mg oral tablet 650 mg, 2, tablet, By Mouth, Every 8 hours, PRN, Refills 0, Maintenance, Pain, 12/14/17 3:09:08 PM EDT Start Date: 12/14/17 Status: Ordered Medication Dispense Status: Completed Total Allowed Fills: 1 Fills Dispensed: 0 Acidophilus See Instructions, 1 capsule By G tube Daily, 0 Refills, Maintenance, 02/25/25 1:29:00 PM EDT, Partial fill upon patient request if the prescription is for a schedule II opioid drug. Start Date: 02/25/25 Status: Ordered Medication Dispense Status: Completed Total Allowed Fills: 1 Fills Dispensed: 0 albuterol-ipratropium 3 mg-0.5 mg/3 ml inhalation solution 3 mL, Neb, Every 4 hours, PRN Wheezing/Shortness of Breath, # 60 each, 0 Refills, Maintenance, 02/25/25 1:26:00 PM EDT, Solution, Partial fill upon patient request if the prescription is for a schedule II opioid drug. Start Date: 02/25/25 Status: Ordered Medication Dispense Status: Completed Quantity: 60.0 Unit: each Total Allowed Fills: 1 Fills Dispensed: 0 Aspirin Low Dose 81 mg oral tablet, chewable 0 Refills, Maintenance, 01/23/23 11:47:00 AM EDT, Partial fill upon patient request if the prescription is for a schedule II opioid drug. Start Date: 01/23/23 Status: Ordered Medication Dispense Status: Completed Total Allowed Fills: 1 Fills Dispensed: 0 ketoconazole 2% topical cream See Instructions, 1 application Topically twice weekly, 0 Refills, Maintenance, 12/14/17 3:12:41 PM EDT, Cream Start Date: 12/14/17 Status: Ordered Medication Dispense Status: Completed Total Allowed Fills: 1 Fills Dispensed: 0 Levoxyl 0.137 mg oral tablet 1 tablet = 137 mcg, By Mouth, Daily in AM, 0 Refills, Maintenance, 12/14/17 3:08:24 PM EDT, Tablet Start Date: 12/14/17 Status: Ordered Medication Dispense Status: Completed Total Allowed Fills: 1 Fills Dispensed: 0 midodrine 10 mg oral tablet 1 tablet = 10 mg, By Mouth, 3 times a day, # 270 tablet, 0 Refills, Maintenance, 02/25/25 1:15:00 PMEDT, Tablet, Partial fill upon patient request if the prescription is for a schedule II opioid drug. Start Date: 02/25/25 Status: Ordered Medication Dispense Status: Completed Quantity: 270.0 Unit: tablet Total Allowed Fills: 1 Fills Dispensed: 0 midodrine 10 mg oral tablet 1 tablet = 10 mg, By Mouth, 3 times a day, PRN Blood Pressure, Hypotension, # 270 tablet, 0 Refills, Maintenance, 02/25/25 1:15:00 PM EDT, Tablet, Partial fill upon patient request if the prescriptionis for a schedule II opioid drug. Start Date: 02/25/25 Status: Ordered Medication Dispense Status: Completed Quantity: 270.0 Unit: tablet Total Allowed Fills: 1 Fills Dispensed: 0 traZODone 50 mg oral tablet 50 mg, 1, tablet, By Mouth, 2 times a day, PRN, # 30 tablet, Refills 0, Maintenance, Agitation, 01/23/23 11:47:00 AM EDT, Partial fill upon patient request if the prescription is for a schedule II opioid drug. Start Date: 01/23/23 Status: Ordered Medication Dispense Status: Completed Quantity: 30.0 Unit: tablet Total Allowed Fills: 1 Fills Dispensed: 0 Trileptal 150 mg oral tablet 75 mg, G Tube, 2 times a day, Refills 0, Maintenance, 03/01/25 12:46:00 PM EDT, Partial fill upon patient request if the prescription is for a schedule II opioid drug. Start Date: 03/01/25 Status: Ordered Medication Dispense Status: Completed Total Allowed Fills: 1 Fills Dispensed: 0 Problem List Condition Confirmation Course Effective Dates Status H ealth Status Informant Down's syndrome Confirmed Active Cerebrovascular accident (CVA) Confirmed Active COVID-19 1 Confirmed 11/12/21 Active Hyperlipidemia Confirmed Active Hypothyroid Confirmed Active Megaloblastic anemia Confirmed Active White matter disease, unspecified Confirmed Active 1Problem added by Discern Expert Results Radiology Reports * Exam Date Time Procedure Performing Provider Status 03/01/25 9:48 PM Abdomen Comp Inc Dec ub and/or Erect Auth (Verified) Notes: (Abdomen Comp Inc Decub and/or Erect) Reason For Exam: G-tube localization with contrast. Confirm gastric position, rule out leak;Localization Films RESULT: Abdomen Comp Inc Decub and/or Erect Abdomen Comp Inc Decub and/or Erect 1 view INDICATION/CLINICAL QUESTION: Reason: Localization Films; G-tube localization with contrast. Confirm gastric position, rule out leak; Clinical Question(s): Other:; Special Instructions: Please [id number] of gastrograffin into g-tube to confirm position. Page [id number] to inject contrast if needed; Order Comment: 03 01 2025 18:29:57 EDT rn not answering. SW COMPARISON: 02/27/2025 FINDINGS: Appropriately positioned gastrostomy tube with injected contrast in the stomach. Normal bowel gas pattern. No evidence of obstruction. No evidence of pneumoperitoneum. No organomegaly, masses or calcifications. No acute bone findings. Opacities at the lung bases. IMPRESSION: Appropriately positioned gastrostomy tube with injected contrast in the stomach. Opacities at the lung bases, may be atelectasis or pneumonia. Wet read was relayed to Dr. Fernando Shin by Dr. Jad Gardner over the phone on 03/02/2025 at 3:39 AM. I have personally reviewed the images and I agree with this report. WSN: [id number] Ordering Physician: Heidi Boyer Dictated By: Jad Gardner MD Dictated Date/Time: 03/02/25 7:45 am Reviewed By: Raghu Mendez MD, V Signed By: Raghu Mendez MD, V Signed Date/Time: 03/02/25 7:50 am Transcribed By: QUINCY Transcribed Date/Time: 03/02/25 3:40 am * Exam Date Time Procedure Performing Provider Status 02/27/25 10:12 AM Abdomen Comp Inc Dec ub and/or Erect Auth (Verified) Notes: (Abdomen Comp Inc Decub and/or Erect) Reason For Exam: G-tube localization with contrast. Confirm gastric position, rule out leak;Localization Films RESULT: Abdomen Comp Inc Decub and/or Erect Abdomen Comp Inc Decub and/or Erect 2 view INDICATION/CLINICAL QUESTION: Reason: Localization Films; G-tube localization with contrast. Confirm gastric position, rule out leak; Clinical Question(s): Other:; Special Instructions: Please [id number] of gastrograffin into g-tube to confirm position. Page [id number] to inject contrast if needed COMPARISON: CT abdomen/pelvis 02/24/2025 FINDINGS: Injected contrast surrounds the gastrostomy tube balloon within the gastric body and partially opacifies gastric folds. No extraluminal contrast extravasation. Normal bowel gas pattern. No evidence of obstruction. No evidence of pneumoperitoneum. No organomegaly, masses or calcifications. No acute bone findings. IMPRESSION: Appropriately positioned gastrostomy tube. No extraluminal contrast extravasation. I have personally reviewed the images and I agree with this report. WSN: [id number] Ordering Physician: Emily Benjamin Dictated By: Grecia Juarez DO Dictated Date/Time: 02/27/25 10:53 a Reviewed By: Raghu Mendez MD, V Signed By: Raghu Mendez MD, V Signed Date/Time: 02/27/25 10:58 am Transcribed By: QUINCY Transcribed Date/Time: 02/27/25 10:51 am * Exam Date Time Procedure Performing Provider Status 02/25/25 7:[address] Head/Brain W/O Contrast Auth (Verified) Notes: (CT Head/Brain W/O Contrast) Reason For Exam: ? seizure like activity;Other: RESULT: CT Head/Brain W/O Contrast CT Head/Brain W/O Contrast INDICATION: Reason: Other:; ? Seizure like activity; Clinical Question(s): Anoxic Ischemic Encephalopathy; Order Comment: TECHNIQUE: Noncontrast head CT using axial technique and reconstructed in axial and coronal planes.Iterative reconstruction techniques are used to optimize dose and image quality. CTDIvol Head: 48.30 mGy, DLP Head: 1546 mGy*cm. COMPARISON: CT head without contrast 07/29/2019. FINDINGS: Trimming Press Operator view findings, lines and tubes: None. BRAIN AND EXTRA-AXIAL SPACES: Encephalomalacia in the superior left frontal lobe is unchanged. Similar encephalomalacia in the anteroinferior right frontal lobe. Suspect a small focus of encephalomalacia in the lateral left temporal lobe. No parenchymal hemorrhage, midline shift, or mass effect. No definite acute loss of [place]-white matter differentiation. No acute infarct. Negative insular ribbon sign. Atherosclerotic vascular calcification of the carotid arteries but negative hyperdense vessel sign. Moderate prominence of the ventricles and sulci consistent with parenchymal volume loss, greater than would be expected for age. Moderate low-density white matter changes. No subarachnoid hemorrhage. No subdural or epidural collection. CALVARIUM, SKULL BASE, AND SOFT TISSUES: No fractures or suspicious bony lesions. There are superior protrusion of the dens which partially narrows the foramen magnum. There is contact with the brainstem and proximal cervical cord. There isalso widening of the atlantodental interval. There is only marginally more pronounced than the prior examination. The paranasal sinuses and mastoid air cells are clear. Status-post bilateral lens extraction. The extracranial soft tissues are unremarkable. IMPRESSION: No acute intracranial pathology. 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 Parenchymal volume loss greater than would be expected for age with chronic ischemic changes in thewhite matter which may be sequelae of microvascular disease. There are superior protrusion of the dens which partially narrows the foramen magnum. There is contact with the brainstem and proximal cervical cord. There is also widening of the atlantodental interval. There is only marginally more pronounced than the prior examination. The appearance is chronic,though incompletely evaluated on the current examination. If indicated clinically this would be better assessed with MRI of the cervical spine. WSN: [id number] Ordering Physician: Sujata Esqueda Dictated By: Lawrence Collins MD Dictated Date/Time: 02/25/25 8:19 pm Reviewed By: Lawrence Collins MD Signed By: Lawrence Collins MD Signed Date/Time: 02/25/25 8:19 pm Transcribed By: QUINCY Transcribed Date/Time: 02/25/25 8:10 pm * Exam Date Time Procedure Performing Provider Status 02/24/25 5:[address] Angio Chest Auth ([facility]) Notes: (CT Angio Chest) Reason For Exam: PE suspected, Intermediate prob, positive D-dimer;Other: RESULT: CT Angio Chest CT Angio Chest INDICATION: Hx of Present Illness: patient from half-way, staff witnessed seizure like activity lasting about 1 minute, no history of seizures; Reason: Other:; PE suspected, Intermediate prob, positive D-dimer; Clinical Question(s): Pulmonary Embolism; Order Comment: TECHNIQUE: Spiral CTA of the chest was performed after rapid IV contrast administration without cardiac gating, triggered by an JOELLE on the main pulmonary artery. Images are formatted in multiple planes using 2-D multiplanar and 3-D maximum intensity projection. 45 cc of Omnipaque 350 was administered intravenously. Weight-based protocol using automatic tube modulation was used to optimize exposure parameters. CTDIvol Body: 6.92 mGy, DLP Body: 273 mGy*cm. COMPARISONS: None ANGIOGRAPHIC FINDINGS: No pulmonary embolism to the subsegmental level. Normal caliber pulmonary arteries. No acute aortic abnormality seen on this study performed without cardiac gating. NON-ANGIOGRAPHIC FINDINGS: Trimming Press Operator view findings, lines and tubes: None. Trachea and airways: Patent without evidence of tracheal or endobronchial lesion. Lungs and pleura: There is airspace opacity and volume loss with air bronchograms in the right lower lobe consistent with pneumonia. There is a small right pleural effusion. No pneumothorax. Mediastinum and hoda: No mass or hematoma. No mediastinal or hilar lymphadenopathy. No esophageal abnormality. Normal thyroid. Heart: Heart is at the upper limits of normal for size. No pericardial effusion. Chest wall soft tissues: No acute abnormality. Diaphragm: Intact. Upper abdomen: No significant abnormality. Bones: No acute abnormality. IMPRESSION: No evidence of pulmonary embolism. Right lower lobe pneumonia. Small right pleural effusion. WSN: [id number] Ordering Physician: Esmer Britt Dictated By: Bo Zapien MD Dictated Date/Time: 02/24/25 6:06 pm Reviewed By: Bo Zapien MD Signed By: Bo Zapien MD Signed Date/Time: 02/24/25 6:06 pm Transcribed By: QUINCY Transcribed Date/Time: 02/24/25 5:55 pm * Exam Date Time Procedure Performing Provider Status 02/24/25 5:22 PM Chest 2 Views Frontal and Lat Auth (Verified) Notes: (Chest 2 Views Frontal and Lat) Reason For Exam: Shortness of Breath, Fever;Other: RESULT: Chest 2 Views Frontal and Lat Chest 2 Views Frontal and Lat Hx of Present Illness: patient from half-way, staff witnessed seizure like activity lasting about1 minute, no history of seizures; Reason: Other:; Shortness of Breath, Fever; Clinical Question(s):Pneumonia; Order Comment: pt going straight in CT room first @ 02 24 2025 10:48:36 EDT DE 02 24 2025 12:08:19 EDT still has not come over yet for CT. SW COMPARISON: [facility], most recent dated 07/29/2019 FINDINGS: LINES AND TUBES: None. LUNGS AND PLEURA: Best images obtainable as per technologist due to patient condition. Patient unable to raise arms for the lateral view. There is an apparent right basilar opacity which may be secondary to combination of small right pleural effusion and atelectasis versus pneumonia. Slight prominence of the interstitial markings in the lower lungs, likely due to minimal interstitial pulmonary edema. No left pleural effusion. No definite pneumothorax although the lung apices are partially obscured by patient's overlying chin. HEART, MEDIASTINUM AND HODA: Mild cardiomegaly. Normal mediastinal and hilar contour. BONES AND SOFT TISSUES: No acute abnormality. IMPRESSION: Right basilar opacity which may represent a combination of small right pleural effusion and atelectasis versus pneumonia. (Limited lateral view) Minimal interstitial pulmonary edema in the lung bases. Mild cardiomegaly. WSN: [id number] Ordering Physician: Esmer Britt Dictated By: Rola Jones MD Dictated Date/Time: 02/24/25 5:30 pm Reviewed By: Rola Jones MD Signed By: Rola Jones MD Signed Date/Time: 02/24/25 5:30 pm Transcribed By: QUINCY Transcribed Date/Time: 02/24/25 5:28 pm * Exam Date Time Procedure Performing Provider Status 02/24/25 1:[address] Abd/Pelvis W/ IV Contrast Only Auth (Verified) Notes: (CT Abd/Pelvis W/ IV Contrast Only) Reason For Exam: infected g tube ?abscess;Other: RESULT: CT Abd/Pelvis W/ IV Contrast Only CT Abd/Pelvis W/ IV Contrast Only INDICATION / CLINICAL QUESTION: Dementia. Down syndrome. New onset seizure-like activity with no history of seizure. TECHNIQUE: Spiral CT through the abdomen and pelvis with IV contrast formatted in 3 planes. 80 cc of Isovue 300 was administered intravenously. The study was performed without oral contrast. Weight-based protocol using automatic tube modulation was used to optimize exposure parameters. CTDIvol Body: 9.10 mGy, DLP Body: 440 mGy*cm. COMPARISON: None. FINDINGS: Trimming Press Operator View Findings, Lines and Tubes: None.. Visualized lower chest: There is an area of consolidation in the right lower lobe. Part of it does not enhance. Such failure of enhancement can be explained the a focus of necrotic pneumonia, or infarct such as from a nonvisualized pulmonary embolism. There is no pleural effusion. There is no pericardial effusion. Diaphragm: Unremarkable. Liver: 20 mm cyst posteriorly on the right. The liver is otherwise normal.. Portal venous system: No thrombosis involving the portal, splenic or superior mesenteric veins. Gallbladder: Normal size. Probable noncalcified gallstones. Borderline gallbladder wall thickening.. Bile ducts: No biliary dilatation. Spleen: Normal size. No focal abnormality. Pancreas: Normal. Adrenal Glands: Normal. Kidneys and Ureters: Right Kidney: Normal. Left Kidney: Normal. Bladder: Low volume. No focal abnormality or stone disease.. Stomach, Small bowel and Large Bowel: Stomach: Gastrostomy tube in satisfactory position. No gastric abnormality.. Small Bowel: No small bowel dilatation or gross inflammatory change. Large Bowel: No colonic dilatation or constipation. Abnormal appearance of the right colon with wall thickening and mucosal enhancement. There is a similar finding of wall thickening and mucosal enhancement in the sigmoid colon and rectum. The Appendix is normal. Reproductive/Pelvic organs: No pelvic mass or fluid collection. Peritoneum, retroperitoneum, omentum and mesentery: There is no free air. . There is no ascites. Lymph nodes: No enlarged lymph nodes Aorta and iliac vessels: No evidence of abdominal aortic or iliac artery aneurysm Abdominal wall: No abdominal wall hernia Bones: There is no compression fracture. There is no spondylolysis. Minimal grade 1 spondylolisthesis L3 on L4 and L4-L5.4 Moderate Central spinal stenosis L2-L3 and L3-L4. No fracture or bony pelvis or proximal femurs. IMPRESSION: 1. There is an area of consolidation in the right lower lobe suggestive of pneumonia. Part of this consolidated lung shows no enhancement. This regional nonenhancement could be explained either by an area of chronic pneumonia, or by a pulmonary embolism which is not identified on thisCT of the abdomen. . 2. Cholelithiasis. 3. Acute abnormality involving long segments of large bowel, suggestive of some type of nonspecificcolitis. This involves the entire right colon and also the entire sigmoid and rectum. WSN: [id number] Ordering Physician: Esmer Britt Dictated By: Nolan Liu MD Dictated Date/Time: 02/24/25 1:40 pm Reviewed By: Nolan Liu MD Signed By: Nolan Liu MD Signed Date/Time: 02/24/25 1:40 pm Transcribed By: QUINCY Transcribed Date/Time: 02/24/25 1:25 pm Social History Social History Type Response Smoking Status Never (less than 100 in lifetime) entered on: 11/15/18 Sex Female Sex Representation Female (finding) Procedure * Maribel Johnson RN: PERFORM Event Display: Procedures Invasive Line Authored Date: [id number] Vascular Access Insertion Entered On: 02/25/2025 16:58 EDT Performed On: 02/25/2025 16:55 EDT by Maribel Johnson RN Vascular Access Insertion Date of Vascular Access Insertion : 02/25/2025 EDT Procedure Location Vascular Access : D5A Person recording insertion : American Sign Language Teacher American Sign Language Teacher of Vascular Access : Maribel Johnson RN Occupation of Vascular Access 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 Sign Language Teacher : Registered nurse Was demand generator manager a member of PICC/IV Team : Yes Maribel Johnson RN 02/25/2025 16:55 EDT Procedural Comments Risk Factors and Labs Reviewed : Yes Anticoagulation Therapy : No Antiplatelet Therapy : No Maribel Johnson RN 02/25/2025 16:55 EDT Was vascular access order placed : Yes Vascular Access Type : Other: Midline Time Out Performed : Yes Time Out Data : Patient identified, Site verified, Procedure verified, RN attendance Reason for Vascular Access Insertion : Exhausted peripheral IV attempts Suspected Vascular Access Infection : No, the access was not exchanged over a guide wire Hand Hygiene prior to insertion : Yes Maximal sterile barriers used : Mask, Sterile gown, Sterile gloves, Ultrasound sterile cover, Cap, Other: modified sterile barrier Sterile Field Maintained : Yes Skin Preparation : Chlorhexidine (CHG) Skin Prep dry at first skin puncture : Yes Antimicrobial coated catheter used : No Successful central line placement : Yes Vascular Access Catheter Type : Other: PowerGlide Pro Midline Vascular Access Insertion Site : Other: LUE brachial vein Vascular Access Insertion Side : Left Vascular Access Catheter Size : 22g Vascular Access Catheter Length : 8cm Tip location termination site : Axilla Vessel Identified By : Ultrasound Ultrasound Images : Ultrasound Images Not Saved Vascular Access Insertion Circumstance : Non-emergent Vascular Access Catheter Securement : Statlock Vascular Access Dressing : Occlusive Maribel Johnson RN 02/25/2025 16:55 EDT DCP GENERIC CODE Suture needles : 0 Hyndman : 1 Scalpels : 0 Clamps : 0 Guide Wires : 1 Maribel Johnson RN 02/25/2025 16:55 EDT Complications during Insertion : None Tolerated CLIP procedure well : Yes Insertion Attempts : 1 Vascular Access Device QA : PowerGlide Pro Midline 22G x 8cm Vascular Access Device Lot Number : [id number] Vascular Access Device Code : [id number] Vascular Access Device Expiration Date : 03/05/2025 EDT Vascular Access Insertion Comments : V:C ratio <45% Maribel Johnson RN 02/25/2025 16:55 EDT Admission evaluation note * Yin KEEN, Sujata Keita: MODIFY, PERFORM, MODIFY Event Display: Admission Note Authored Date: [id number] Patient: ??VIRIDIANA, WHITNEY ? Age:??64 Years?Sex:??Female?:??1960?? Chief Complaint/Reason for Consultation patient from half-way, staff witnessed seizure like activity lasting about 1 minute, no hx of seizures, called 911 currently acting baseline. History of Present Illness 64-year-old female with past medical history of Down syndrome, hypothyroidism, cholelithiasis, hyperlipidemia, dysphagia who is G-tube dependent, recurrent C. difficile, hypotension on midodrine [facility] with concerns for G-tube infection/leak. History obtained from Marie Lopez, programmable logic controller assembler [phone]. Patient is G-tube was placed in [facility], on 02/08/2025 they upsize the tube to 22 Fr. nursing staff noticed worsening rash and purulent drainage starting earlier this week.?? She also had few episodes of diarrhea, concerning for C. difficile recurrence.?? Staff also noticed that she had some shaking movements with upward rolling of eyes and she was screaming that lasted for a minute on 02/24/2025, questionable seizures versus behavior. Patient was sent to the ED for further evaluation due to concern of G-tube malfunction and medication noncompliance. In the ED, vital signs-temperature of 97.7, heart rate 59, respiratory rate 14, blood pressure 89/65, 98% on room air. Labs with WBC of 6.6, hemoglobin 12.5, hematocrit 39.6, platelet 330.?? Basic metabolic profile wasnormal, LFTs within normal limit.?? Lactate was elevated to 2.7.?? Blood cultures were sent. She received 2 L of IV fluid with improvement of lactate 0.9 Given a dose of IV ceftriaxone 1 g, metronidazole 500 mg, vancomycin 1 g, midodrine [address] abdomen and pelvis showed area of consolidation in the right lower lobe suggestive of pneumonia/pulmonary embolism, cholelithiasis, acute abnormality of long segments of large bowel suggesting nonspecific colitis involving the right colon and entire sigmoid and rectum. Chest x-ray showed right basilar opacity.?? Further assessment with CT angio chest showed no evidence of PE, has right lower lobe pneumonia, small right pleural effusion. ?? Patient lives in[facility]in [place] Mother: Cancer of lung Father: of unknown cause Review of Systems Unable to obtain history from??patient Noted to have diarrhea, rash around G-tube site?? Objective Vital Signs?? Temperature: 97.6 DegF (02/25/25 12:00:00) Temperature Route: Axillary (02/25/25 12:00:00) Pulse Rate: 66 bpm (02/25/25 12:00:00) Respiratory Rate: 16 br/min (02/25/25 12:00:00) Systolic Blood Pressure:??87 mm Hg??Low (02/25/25 12:00:00) Diastolic Blood Pressure:??53 mm Hg??Low (02/25/25 12:00:00) Blood pressure sites: Arm, left (02/25/25 12:00:00) Mean Arterial Pressure: 76 mm Hg (02/25/25 05:27:00) Pulse Pressure: 51 mm Hg (02/25/25 05:27:00) Oxygen Saturation: 96 % (02/25/25 12:00:00) Mode of Delivery (Oxygen): Room air (02/25/25 12:00:00) Early Warning Score: 3 (02/25/25 12:02:11) ? Physical Exam General:??Alert, in no acute cardiopulmonary distress. HEENT: atraumatic/normocephalic, EOMI, PERRL Mental Status:??Minimally verbal??at baseline, very soft spoken as per [facility] records?? Respiratory:??Clear to auscultation, air entry appears equal bilaterally. Cardiovascular:??Heart sounds normal. No thrills. Regular rate and rhythm, no murmurs, rubs or gallops. Gastrointestinal:??Abdomen soft, non-tender, non-distended. Normal bowel sounds.?? G tube , pus noted around G tube site , erythema +?? Neurologic:??contracted extremities, minimally verbal at baseline? 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 Assessment:??64-year-old female with past medical history of Down syndrome, hypothyroidism, cholelithiasis, hyperlipidemia, dysphagia who is G-tube dependent, recurrent C. difficile, hypotension on midodrine presenting from [facility] home with concerns for G-tube infection/leak??admitted for further m anagement. ?? G-tube site cellulitis (K94.22) ?Associated with??Gastrostomy tube dependent (Z93.1) ? Patient has been G-tube dependent, strict npo ??G-tube??upsized??to 22 Fr??at [facility]??on 02/08/2023 Noted to have??rash and purulent drainage around the site X 5 days?? CT abdomen??and pelvis??showed??satisfactory positioning of the G-tube No evidence of??collection??or abscess. Surgery was??consulted, recommends??continuing local wound care around G tube, flushed adequately .?Surgery cleared her to use G-tube.? Wound care?? Blood cx NO growth detected at this time, follow-up culture results ? Diarrhea (R19.7) Recurrent Clostridioides difficile diarrhea (A04.71) ? diarrhea for the last few days, h/o recurrent c.diff?? Pt s sister reports that she??responded to??fidaxomicin in the past?? CT abdomen pelvis showed nonspecific colitis on the right??colon,??sigmoid and rectum Started on??vancomycin??prophylaxis??for C. difficile, contact isolation?? Check C. difficile??and??GI PCR profile ? Community acquired pneumonia of right lower lobe of lung (J18.9):??CT chest??showed??right lower lobe pneumonia Likely residual enhancement??from area of chronic pneumonia??due to aspiration Patient received IV ceftriaxone, Flagyl,??vancomycin in the ED Hold further antibiotics as procalcitonin??is??negative??encouraging??discouraging antibiotic use Keep head of bed??elevated??30 to 45 degrees If develops??symptoms or signs of??pneumonia,??please start antibiotic ?? Hypotension (I95.9):??Patient is on midodrine??10 mg??3 times daily??as needed hypertension Blood pressure has been soft,??received 2 L IV fluid bolus??in the ER Could be due to??ongoing diarrhea??and??tube feed being held?? IVF NS 500cc??bolus?? Restart tube feeds ?? Down syndrome (Q90.9):??Patient is on??Trileptal??75 mg twice daily??for??her behaviors,??not for seizure. Dose being weaned off??by her PCP As per??manager group home??Marie??patient did have a questionable??seizure-like??activity??involving??shaking of??her body and??eye rolling movement??with??patient screaming that lasted for??a minute??yesterday. Will get routine EEG, CT??head??without contrast ?? Hypophosphatemia IV Phos repleted Recheck levels in the evening and replete ?? Hypothyroidism (E03.9):??Subclinical hypothyroidism Continue levothyroxine ??Repeat levels in 4 weeks ?? VTE Prophylaxis:??Heparin subcu ?VTE Prophylaxis Assessment:??VTE Prophylaxis Ordered ?? Code Status:??Full code, confirmed by pt's sister and Guardian Erin? Histories Past Medical History/Problem List Active Problems(7) Cerebrovascular accident (CVA) COVID-19 Down's syndrome Hyperlipidemia Hypothyroid Megaloblastic anemia White matter disease, unspecified ? Past Surgical History Cataract Clubfoot - congenital ? Social History Alcohol Details:??Use: Never. Home/Environment Details: Living situation: Home with assistance. Lives with: [employer] Works for [employer] -> [employer]. Has 1:1 care. Substance Abuse Details:??Use: Never. Tobacco Details:??Use: Never (less than 100 in lifetime). ? Family History Mother: Cancer of lung ? Medications Home Medications Acetaminophen (acetaminophen 325 mg oral tablet)??650 Milligram 2 tablet By Mouth Every 8 hours as needed Pain Albuterol/Ipratropium (albuterol-ipratropium 3 mg-0.5 mg/3 ml inhalation solution)??3 Milliliter Neb Every 4 hours as needed Wheezing/Shortness of Breath Calcium And Vitamin D Combination (Calcium 600 +D)??By Mouth 2 times a day Cholecalciferol (Vitamin D3 1000 intl units oral tablet)??1 tab(s) 1,000 International Unit By Mouth Daily in AM Docusate-Senna (Senna Plus 50 mg-8.6 mg oral tablet)??2 tab(s) By Mouth Daily at bedtime fluoride-potassium nitrate topical (PreviDent 5000 Enamel Protect 1.1%-5% topical paste)??1 reynaldo Topically 2 times a day Fluticasone Nasal (Flonase 50 mcg/inh nasal spray)??2 spray(s) Nares, Both Daily Gabapentin (gabapentin 300 mg oral capsule)??300 Milligram 1 capsule By Mouth 2 times a day Guaifenesin (guaiFENesin 100 mg/5 mL oral liquid)??10 Milliliter 200 Milligram By Mouth Every 4 hours as needed for cough Ibuprofen (ibuprofen 100 mg oral tablet)??2 tab(s) 200 Milligram By Mouth Every 6 hours as needed for fever Ketoconazole (ketoconazole 2% topical cream)??See Instructions 1 application Topically twice weekly Lactobacillus Acidophilus (Acidophilus)??See Instructions 1 capsule By G tube ??Daily Levothyroxine (Levoxyl 0.137 mg oral tablet)??1 tab(s) 137 Microgram By Mouth Daily in AM Lorazepam (LORazepam 1 mg oral tablet)??1 tab(s) 1 Milligram By Mouth Daily as needed as needed foranxiety Midodrine (midodrine 10 mg oral tablet)??1 tab(s) 10 Milligram By Mouth 3 times a day Midodrine (midodrine 10 mg oral tablet)??1 tab(s) 10 Milligram By Mouth 3 times a day as needed Blood Pressure Hypotension Ondansetron (ondansetron 4 mg oral tablet)??1 tab(s) 4 Milligram By Mouth Every 6 hours Oxcarbazepine (Trileptal 150 mg oral tablet)??450 Milligram 3 tablet By Mouth 2 times a day Oxcarbazepine (Trileptal 150 mg oral tablet)??See Instructions 75 mg ??tablet By Mouth 2 times a day Trazodone (traZODone 50 mg oral tablet)??50 Milligram 1 tablet By Mouth 2 times a day as needed Agitation ? Results Recent Labs BACTERIOLOGY Blood Culture Results Preliminary report ()?? 02/24/2025 10:37 Blood Culture Isolate 1 Comment ()?? 02/24/2025 10:37 Blood Cult 2 Results Preliminary report ()?? 02/24/2025 10:37 Blood Culture 2 Isolate 1 Comment ()?? 02/24/2025 10:37 ?? BLOOD COUNT & DIFF WBC 6.6 k/mm3 ()?? 02/24/2025 10:37 RBC 3.78 m/mm3 (Low)?? 02/24/2025 10:37 Hgb 12.5 Gm/dL ()?? 02/24/2025 10:37 Hct 39.6 % ()?? 02/24/2025 10:37 MCV 104.8 femtoliters (High)?? 02/24/2025 10:37 MCH 33.1 pg ()?? 02/24/2025 10:37 MCHC 31.6 Gm/dL (Low)?? 02/24/2025 10:37 Platelet Count 330 k/mm3 ()?? 02/24/2025 10:37 RDW-SD 63.1 femtoliters (High)?? 02/24/2025 10:37 MPV 10.5 femtoliters ()?? 02/24/2025 10:37 Nucleated RBC (Automated) 0.0 #/100 WBC'S ()?? 02/24/2025 10:37 Abs. NRBC 0.0 k/mm3 ()?? 02/24/2025 10:37 Abs. Neut 4.9 k/mm3 ()?? 02/24/2025 10:37 Abs. Lymph 1.1 k/mm3 ()?? 02/24/2025 10:37 Abs. [place] 0.5 k/mm3 ()?? 02/24/2025 10:37 Abs. Eo 0.1 k/mm3 ()?? 02/24/2025 10:37 Abs. Baso 0.1 k/mm3 ()?? 02/24/2025 10:37 Neut % 73.7 % ()?? 02/24/2025 10:37 Lymph % 16.1 % ()?? 02/24/2025 10:37 [place]assen % 7.3 % ()?? 02/24/2025 10:37 Eos % 1.2 % ()?? 02/24/2025 10:37 Baso % 0.8 % ()?? 02/24/2025 10:37 Imm Gran 0.9 % ()?? 02/24/2025 10:37 Abs. Imm Gran 0.1 k/mm3 ()?? 02/24/2025 10:37 ?? CHEM GENERAL Sodium 142 mmol/L ()?? 02/25/2025 08:45 Potassium 3.6 mmol/L ()?? 02/25/2025 08:45 Chloride 107 mmol/L ()?? 02/25/2025 08:45 Bicarbonate Level 25 mmol/L ()?? 02/25/2025 08:45 Anion Gap 10 mmol/L ()?? 02/25/2025 08:45 Glucose Level 100 mg/dL (High)?? 02/25/2025 08:45 Glucose, POC 96 mg/dL ()?? 02/25/2025 08:52 BUN 10 mg/dL ()?? 02/25/2025 08:45 Creatinine-Blood 0.70 mg/dL ()?? 02/25/2025 08:45 Estimated GFR Creatinine 97 ML/MIN/1.73 M2 ()?? 02/25/2025 08:45 Calcium 7.9 mg/dL (Low)?? 02/25/2025 08:45 Phosphorus 1.9 mg/dL (Low)?? 02/25/2025 08:45 Magnesium 2.3 mg/dL ()?? 02/25/2025 08:45 Protein, Total 6.7 Gm/dL ()?? 02/24/2025 10:37 Albumin 3.2 Gm/dL (Low)?? 02/24/2025 10:37 AG Ratio 0.9 ()?? 02/24/2025 10:37 Alkaline Phosphatase 96 units/L ()?? 02/24/2025 10:37 Lipase, Serum/Plasma 19 units/L ()?? 02/24/2025 10:37 AST (SGOT) 20 units/L ()?? 02/24/2025 10:37 ALT (SGPT) 11 units/L ()?? 02/24/2025 10:37 Bilirubin, Total 0.3 mg/dL ()?? 02/24/2025 10:37 Lactate 0.9 mmol/L ()?? 02/25/2025 08:45 ?? ENDOCRINE/TUMOR MARKER TSH 40.30 uIU/mL (High)?? 02/24/2025 10:37 Free T4 1.25 ng/dL ()?? 02/24/2025 10:37 ?? MISC. CHEMISTRY Procalcitonin 0.04 ng/mL ()?? 02/25/2025 08:45 ?? UA/URINALYSIS Appear/Color, Urine COLORLESS ()?? 02/24/2025 13:00 Specific [place], Urine 1.008 ()?? 02/24/2025 13:00 pH, Urine 7.5 ()?? 02/24/2025 13:00 Albumin, Urine NEGATIVE ()?? 02/24/2025 13:00 Glucose, Urine NEGATIVE ()?? 02/24/2025 13:00 Ketones, Urine NEGATIVE ()?? 02/24/2025 13:00 Bilirubin, Urine NEGATIVE ()?? 02/24/2025 13:00 Hemoglobin, Urine NEGATIVE ()?? 02/24/2025 13:00 Nitrite, Urine NEGATIVE ()?? 02/24/2025 13:00 Leukocyte, Urine NEGATIVE ()?? 02/24/2025 13:00 Urobilinogen NORMAL mg/dL ()?? 02/24/2025 13:00 WBC's, Urine 1 /HPF ()?? 02/24/2025 13:00 RBC's, Urine <1 /HPF () 02/24/2025 13:00 Hold Urine Culture Testing available 48 hours from time of collection. ()?? 02/24/2025 13:00 ?? VIROLOGY Influenza A PCR NEGATIVE ()?? 02/24/2025 23:08 Influenza B PCR NEGATIVE ()?? 02/24/2025 23:08 RSV PCR NEGATIVE ()?? 02/24/2025 23:08 COVID-19 PCR Result NEGATIVE ()?? 02/24/2025 23:08 ? EKG study * Event Display: ECG 12-Lead Authored Date: Please click on pdf link to open report * Event Display: ECG 12-Lead Authored Date: Ventricular Rate: 57 BPM Atrial Rate: 57 BPM P-R Interval: 198 ms QRS Duration: 110 ms Q-T Interval: 466 ms QTC Calculation(Bazett): 453 ms P [place]: 22 degrees R [place]: -38 degrees T [place]: 24 degrees Sinus bradycardia Left axis deviation Incomplete left bundle branch block Poor R wave progression in V1-V3 may be normal variant or due to anteroseptal infarct or misplaced leads Abnormal ECG When compared with ECG of 29-Jul-2019 10:13, QRS duration has increased Confirmed by LYDIA KEEN, [facility] ([id number]) on 02/24/2025 12:39:40 PM [place]: [facility] * Dianne Trejo RN: PERFORM, SIGN, VERIFY, MODIFY, SIGN, MODIFY, SIGN Event Display: [facility] Authored Date: Patient: WHITNEY KEMP Age: 64 years Sex: Female : 1960 Associated Diagnoses: None Author: Dianne Trejo RN Findings Problem Related to Alteration in Neurological : Alteration in Neurological Function/new 03/02/2025 21:00 EDT Alteration in Neuro status Related to Other: AMS Goals & Outcomes, Neurological Lab studies/diagnostic tests within pt specific limits, Pt is safe with transfers & activities, Pt will be hemodynamically stable, Pt will be Neurologically stable, Pt will maintain intact skin integrity, Pt will remain free from injury, Pt will resume/maintain adequate cardiac output, Pt will state importance of adhering to medication regime, Pt/caregiver will receive psychosocial support as needed, Pt/caregiver will state understanding of rehab plan, Pt/caregiver will state strategies to reduce risk factors, Pt/caregiver will state understanding aspiration precautions, Pt/caregiver will state understanding dietary modifications, Pt/caregiver will state understanding of disease process, Pt/caregiver will state understanding of plan/goals of care, Pt/caregiver will state understanding of the D/C plan, Resolved problem, Goals/Outcomes met Interventions, Neurological Assess/monitor for abnormal posturing, Assess/monitor for gaze pattern/extraocular movements, Assess/monitor for increased Intracranial Pressure, Assess/monitor neurologicstatus, Assess/monitor VS per unit standards & prn, Call/Report variances in assessments to provider, Collaborate w/ provider to implement appropriate guidelines BH Goals/Interventions, Neurological Yes Neurological, Problem Start 02/25/2025 20:05 Reviewed plan with, Neurological Patient Patient Progression, Neurological Pt progressing according to plan . Nursing Data Neurological Data. : Neurological Data. 03/02/2025 20:00 EDT Tongue Disposition Midline Neurological Symptoms Alteration in speech quality, Difficulty swallowing, Impaired mental ability Level of Consciousness Confusion Orientated to person, place, time Person Hallucinations None Facial Symmetry Intact Characteristics of Speech Expressive aphasia Swallowing Difficulty None Pupil description, left Regular Pupil description, right Regular Pupil reaction, left Brisk Pupil reaction, right Brisk Strength LUE 5-Active movement against gravity & full resistance Strength RUE 5-Active movement against gravity & full resistance Strength LLE 5-Active movement against gravity & full resistance Strength RLE 5-Active movement against gravity & full resistance Tone LUE Normal Tone RUE Normal Tone LLE Normal Tone RLE Normal Sensation LUE Intact Sensation RUE Intact Sensation LLE Intact Sensation RLE Intact Movement LUE Spontaneous Movement RUE Spontaneous Movement LLE Spontaneous Movement RLE Spontaneous Gait Unable to assess Tremors None Response Eye Opening Spontaneously Motor Response-Adult Obeys commands Verbal Response-Adult Disoriented and converses [place] Coma Score 14 FACES Scale Score 4 Pain Interventions Pharmacological, PRN medication Neuro WNL except Corneal/Blink Reflex Intact right, Absent right Eyes and Movements Conjugate gaze: Move in same direction at same speed Headache None . Evaluation Patient received for care at ~2200 as a transfer from [facility]; VSS on room air, afebrile, alert and oriented to name only. Patient speech clear and appropriate; able to make some needs known but requiresreorientation and direction. Eyes PERRLA; tracks and follows bid writer during assessment. Patient strength 5/5 to all extremities. Does not exhibit or endorse any signs of numbness or tingling. Patient does not exhibit any changes to vision, dizziness, or blurred vision. Patient does not exhibit any n/v; tollerating dysphagia diet with regular thin liquids. Please see biophysical for complete head to toe assessment as per [facility] flowsheets. Plan of care ongoing; call costa left within reach. Safety paramters maintained. Patient remains in soft restraints as per orders to avoid removal of lines. 0300: Patient hypotensive with a blood pressure of as low as 80/40 (multiple checks), bradycardic with HR as low as 45. Patient given PRN Midodrine x 1 and placed in reverse trendelenburg with SBP still between 70-90's. Patient sleeping and unable to communicate if experiencing any symptoms at thistime but she is easily rousable. Teaching coverage made aware at this time. Awaiting new orders. 0500: 500 ml bolus of LR given as per MD orders; patient BP remains 92/56 and MD aware. Patient is apparently hypotensive at baseline and takes Midodrine. Plan of care continues; will continue to monitor.. * Dianne Trejo RN: VERIFY, PERFORM, SIGN Event Display: Progress Note Hospital Authored Date: Patient: WHITNEY KEMP Age: 64 years Sex: Female : 1960 Associated Diagnoses: None Author: Dianne Trejo RN Findings Problem Related to Alteration in Neurological : Alteration in Neurological Function/new 03/02/2025 21:00 EDT Alteration in Neuro status Related to Other: AMS Goals & Outcomes, Neurological Lab studies/diagnostic tests within pt specific limits, Pt is safe with transfers & activities, Pt will be hemodynamically stable, Pt will be Neurologically stable, Pt will maintain intact skin integrity, Pt will remain free from injury, Pt will resume/maintain adequate cardiac output, Pt will state importance of adhering to medication regime, Pt/caregiver will receive psychosocial support as needed, Pt/caregiver will state understanding of rehab plan, Pt/caregiver will state strategies to reduce risk factors, Pt/caregiver will state understanding aspiration precautions, Pt/caregiver will state understanding dietary modifications, Pt/caregiver will state understanding of disease process, Pt/caregiver will state understanding of plan/goals of care, Pt/caregiver will state understanding of the D/C plan, Resolved problem, Goals/Outcomes met Interventions, Neurological Assess/monitor for abnormal posturing, Assess/monitor for gaze pattern/extraocular movements, Assess/monitor for increased Intracranial Pressure, Assess/monitor neurologicstatus, Assess/monitor VS per unit standards & prn, Call/Report variances in assessments to provider, Collaborate w/ provider to implement appropriate guidelines BH Goals/Interventions, Neurological Yes Neurological, Problem Start 02/25/2025 20:05 Reviewed plan with, Neurological Patient Patient Progression, Neurological Pt progressing according to plan . Nursing Data Neurological Data. : Neurological Data. 03/02/2025 20:00 EDT Tongue Disposition Midline Neurological Symptoms Alteration in speech quality, Difficulty swallowing, Impaired mental ability Level of Consciousness Confusion Orientated to person, place, time Person Hallucinations None Facial Symmetry Intact Characteristics of Speech Expressive aphasia Swallowing Difficulty None Pupil description, left Regular Pupil description, right Regular Pupil reaction, left Brisk Pupil reaction, right Brisk Strength LUE 5-Active movement against gravity & full resistance Strength RUE 5-Active movement against gravity & full resistance Strength LLE 5-Active movement against gravity & full resistance Strength RLE 5-Active movement against gravity & full resistance Tone LUE Normal Tone RUE Normal Tone LLE Normal Tone RLE Normal Sensation LUE Intact Sensation RUE Intact Sensation LLE Intact Sensation RLE Intact Movement LUE Spontaneous Movement RUE Spontaneous Movement LLE Spontaneous Movement RLE Spontaneous Gait Unable to assess Tremors None Response Eye Opening Spontaneously Motor Response-Adult Obeys commands Verbal Response-Adult Disoriented and converses [place] Coma Score 14 FACES Scale Score 4 Pain Interventions Pharmacological, PRN medication Neuro WNL except Corneal/Blink Reflex Intact right, Absent right Eyes and Movements Conjugate gaze: Move in same direction at same speed Headache None . Evaluation Patient received for care at 1900; VSS on room air, afebrile, alert and oriented to name (unable toassess complete level of orienttion as patient is non-verbal). Patient was able to make some needs known by communicating pain to abdomen during application of bacitracin ointment and withdrawing from assessmet at this time; otherwise patient appears to be comfortable with no signs of pain or distresst. Eyes PERRLA; does not exhibit any changes to vision and tracks and follows bid writer during assessment. Patient strength 5/5 to all extremities. Does not exhibit any signs of numbness or tingling. Patient does not exhibit any changes to vision, dizziness, or blurred vision. Patient does not exhibit any n/v; remains NPO with continuation of tube feeeds at 2100 (was temporarily stopped from [id number] as per orders). G tube flushing and feeds ongoing as per orders; meds crushed and given via this route. Please see biophysical for complete head to toe assessment as per [facility] flowsheets. Plan of care ongoing; call costa left within reach. Safety paramters maintained. . * [place] KEEN, Keshav Saeed: PERFORM Event Display: Progress Note Hospital Authored Date: [id number] Patient: ??WHITNEY KEMP ? Age:??64 Years?Sex:??Female?:??1960?? Subjective Last night she??pulled her G-tube. ??It was replaced by surgery. ??X-ray was completed that showed appropriate positioning. ??Overnight she apparently had significant pain for which she was given??morphine by the night team.?? On evaluation this morning she is otherwise well-appearing and talk to both??legal guardians and they reported that she looks like she normally does.?? While we do not??think that her??G-tube removal was??intentional it does seem??like the most likely reason that might beexplaining why she is having so much irritation at the G-tube site. ??There is also concerns that is leaking around the??G-tube touch which is normal to some degree. ??There is cement irritation to the skin but this is??probably explained with??the significant mild irritation from??pulling at the G-tube. ?? Last 24 hours has been afebrile. ??Today there was a concern of systolic blood pressure in the 70s for which RT was consulted and they recommended IV fluids. ??She was otherwise well-appearing.?? Labs were collected that did not show any leukocytosis or any other significant abnormalities. ??K was mildly low for which which we replaced.?? Phosphorus was 3.0.?? Given pain and a watery diarrhea??this morning we??restarted investigations for C. difficile??given colitis on CT on admission.?? If we are able to collectible out then we can potentially discharge however??is possible this is within normal boundary for what she does at home.?? We will??continue to watch and we will??hope that she will remain stable and we can try to discharge her back to her half-way tomorrow afternoon. ?? Plan for today: ?CBC CMP and CRP in the morning ??? Contact precautions ?C. difficile and GI PCR for watery stool Review of Systems Review of systems negative except as stated above. Objective Vital Signs?? Temperature: 97.7 DegF (03/02/25 16:00:00) Temperature Route: Oral (03/02/25 16:00:00) Pulse Rate:??51 bpm??Low (03/02/25 16:00:00) Respiratory Rate: 16 br/min (03/02/25 16:00:00) Systolic Blood Pressure: 129 mm Hg (03/02/25 16:00:00) Diastolic Blood Pressure: 66 mm Hg (03/02/25 16:00:00) Blood pressure sites: Leg, left (03/02/25 16:00:00) Mean Arterial Pressure: 72 mm Hg (03/02/25 14:13:00) Pulse Pressure: 78 mm Hg (03/02/25 14:13:00) Oxygen Saturation:??90 %??Low (03/02/25 16:00:00) Mode of Delivery (Oxygen): Room air (03/02/25 16:00:00) Early Warning Score: 4 (03/02/25 16:42:25) ? Physical Exam Awake and active??in bed, no acute distress, contracted, small for age Folding socks happily. Lungs CTA No murmurs, RRR,??warm and well perfused Abdomen soft, nontender. Binder in place, G tube insertion site non infected appearing R gluteal pressure wound, otherwise no skin lesions Assessment/Plan Assessment:??64-year-old female with a history of Down syndrome, hypothyroidism, cholelithiasis, hyperlipidemia, dysphagia who is G-tube dependent, recurrent C. difficile, hypotension on midodrine presenting from [facility] with concerns for G-tube infection/leak admitted for further management. Does not appear to have infection or C diff. Some symptoms on 03/02, will delay DC and observe 1 moreday. ?? Gastrostomy tube dependent (Z93.1) Patient has been G-tube dependent, strict npo G-tube upsized to 22 Fr at [facility] on 02/08/2023 Noted to have rash and purulent drainage around the site X 5 days, but this may have been leakage of tube feeds around button with irritation CT abdomen and pelvis showed satisfactory positioning of the G-tube, no evidence of collection or abscess Surgery was consulted, recommends continuing local wound care around G tube, flushed adequately Surgery cleared her to use G-tube On exam G tube site appears non-erythematous,??non-purulent, not tender to palpation, self removed g tube MA 02/27, but replaced and KUB verified no leak. ?? Plan: - Continuous feeds - Surgery consult if g tube removal again - If ongoing intolerance GJ tube would be next step ?? 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 - No Vancomycin for C. difficile at this time -restart Contact isolation -F/u??C. difficile and GI PCR profile - CBC??BMP CRP in AM ?? Community acquired pneumonia of right lower lobe of lung (J18.9):?? CT chest showed right lower lobe pneumonia Likely residual enhancement from area of chronic pneumonia due to aspiration Patient received IV ceftriaxone, Flagyl, vancomycin in the ED Procalcitonin??0.04 ?? -Hold further abx at this time -Keep head of bed elevated 30 to 45 degrees ?? Hypotension (I95.9):?? Patient is on midodrine 10 mg 3 times daily as needed for??hypotension Blood pressure has been soft, received 2 L IV fluid bolus in the ER Could be due to ongoing diarrhea and tube feed being held ?? -Continue midodrine - 1 L IVF today ?? Hypophosphatemia (E83.39):?? IV Phos repleted ?? -Monitor phos level ?? Down syndrome (Q90.9):?? Patient is on Trileptal (oxcarbazepine) 75 mg twice daily for behavior, not for seizures Dose being weaned off by her PCP As per manager group home Marie patient did have a questionable seizure-like activity involving shaking of her body and eye rolling movement with patient screaming that lasted for a minute yesterday CTH w/o contrast was non-acute ?? -Continue oxcarbazepine -F/u??routine EEG ?? Hypothyroidism (E03.9):??Continue levothyroxine 137 ?? VTE Prophylaxis:??SQH Code Status:??Full Diet:??Tube feeds ?? Patient was discussed with attending physician, Dr. Baum ?? Keshav Fragoso PGY-4 Resident Physician Internal Medicine-Pediatrics Pager # [phone] ?? Please excuse any??typographical or grammatical errors given the use of??dictation software.? * Stephani Baum DO: PERFORM Event Display: Progress Note Hospital Authored Date: Attending Attestation:??I have seen and evaluated this patient. ??I have discussed the case and itsmanagement with the resident and agree with the findings and plan as documented in the resident???snote. ?? Consult note * Lizzie King RN: PERFORM, SIGN, VERIFY Event Display: Consultation Note Authored Date: [id number] Patient: WHITNEY KEMP Age: 64 years Sex: Female : 1960 Associated Diagnoses: None Author: Lizzie King RN R Ischium 03/03 Buttocks 03/03 GTube 03/03 History of Presenting Problem Reason for referral Wound: Description Location- Peristomal (Gtube) Etiology- Fungal Dermatitis Wound Bed- traction induced widening of the stomal tract with surrounding erythematous macular papular rash with satellite lesions extending to the groin and upper abdomen Janet Wound- intact Edges- irregular and diffuse Drainage- intact Odor- none No fluctuance or induration Goals- stabilization of the gtube, antifungal treatment with peristomal Miconazole 2% (with dimethicone) and allevyn foam dressing for offloading tubing . Wound: Description Location- R Ischium Etiology- Deep Tissue Pressure Injury Present on Admission Wound Bed- nonblanching purple discoloration with small area of full thickness skin loss centrally and exposed olmstead slough and pink tissue Janet Wound- intact, dry desquamation Edges- defined Drainage- scant serosanguineous Odor- none Patient endorsed pain with palpation No fluctuance or induration Goals- offloading, Triad cream for moist wound healing and enhanced autolytic debridement of slough . Wound RN consult entered to assess g tube stoma and gluteal soft tissue wounds and make topical recommendations. Patient was admitted from [facility] due to concern for G tube infection/leaking. Whitney has a PMH of down syndrome, hypothyroidism, cholelithiasis, HLD, dysphagia, GT dependence, recurrent C. Diff and hypotension. Upon entering the room patient is lying in bed with social group worker present. Wound RN role explained and social group worker is agreeable to assessment as well as photodocumentation. I introduced myself to Whitney and she greeted me with a big smile. I assessed her abdomen which is described in detail above. Of note she is noted to have a large/heavy gtube with a widened track. Whitney is able to roll onto her left side with some assistance to allow for assessment of her right ischium. I shared recommendations for Triad cream and provided incontinence care as she had a BM. Update provided to direct care RN and social group worker. Update also provided to Dr. Fragoso. Recommendations: 1.) GTube: Cleanse with normal saline. Pat dry. Apply Miconazole 2% ointment to the peristomal areaand extending to the upper abdomen and groin (anywhere with rash). Apply an Allevyn foam dressing beneath the bumper of the tube. Reapply Miconazole 2% every 12 hours. Change Allevyn daily. Ensure there is slack on the tubing and it is not pulling. May use commercial securement device 2.) Buttocks: Cleanse with pH balanced cleanser. Pat dry. Apply Triad dressing thinly to open areas. Reapply thin layer as needed with incontinence care. 3.) Continue use of specialty bed/low air loss mattress 4.) Turn and reposition every 2 hours and PRN 5.) Continue incontinence care as well as moisture management 6.) Continue to offload bony prominences with black wedges (distribution) 7.) Float heels with [employer]el[employer] boots (distribution) 8.) Continue to provide optimal nutritional support 9.) Provide offloading cushion to chair when patient OOB Please reconsult wound care RNs for deterioration in wound/skin status Plan Time spent 31-45 minutes * Cynthia Bowles: PERFORM Event Display: Consultation Note Authored Date: [id number] Patient: ??WHITNEY KEMP ? Age:??64 Years?Sex:??Female?:??1960?? History of Present Illness 64F??with PMH significant for??CVA, Down syndrome (nonverbal), HLD,??hypothyroidism, and megaloblastic anemia. Presented today from half-way for concerns of G-tube infection. Research Fellow from the??group??home stated she had this G-tube placed at [facility] in October of this year. Also noted she r epresented to their ED on 02/08, where??they upsized the tube to a 22 Fr. Nursing staff first noticed??a??worsening??rash at the surrounding skin 4 days ago, in addition to purulent discharge. G-tube was last used this morning and was able to be flushed appropriately. Slightly hypotensive otherwise hemodynamically stable upon arrival. Labs notable for WBC 6.6 and lactate 2.7 (pt was receiving??second 1L IVF bolus at the time of exam). CT A/P demonstrated??G-tube to be in good position and nonspecific large bowel colitis. EGS was consulted for further evaluation.?? Review of Systems Unable to obtain, pt is nonverbal.?? Physical Exam Vitals & Measurements T:??97.8?F?? HR:??59??(Peripheral)?? RR:??19?? BP:??99/59?? SpO2:??95%?? General:??Alert, no acute distress. Cardiac: RRR. Pulm: No increased WOB, RR even and unlabored. GI: Abdomen soft, non-tender, non-distended.??G-tube??in??place with??surrounding??erythema??at the??skin, small amount of purulent discharge around??tube,??non-malodorous.?? Neuro:??Moves all extremities spontaneously. Sensation intact bilat UE and LE.?? Assessment/Plan 64F??with PMH significant for??CVA, Down syndrome (nonverbal), HLD,??hypothyroidism, and megaloblastic anemia. Presented today from half-way for concerns of G-tube infection. Research Fellow from the??group??home stated she had this G-tube placed at [facility] in October of this year. Also noted she r epresented to their ED on 02/08, where??they upsized the tube to a 22 Fr. Nursing staff first noticed??a??worsening??rash at the surrounding skin 4 days ago, in addition to purulent discharge. G-tube was last used this morning and was able to be flushed appropriately. Slightly hypotensive otherwise hemodynamically stable upon arrival. Labs notable for WBC 6.6 and lactate 2.7 (pt was receiving??second 1L IVF bolus at the time of exam). CT A/P demonstrated??G-tube to be in good position and nonspecific large bowel colitis. EGS was consulted for further evaluation. Given her WBC is normal and??there is no evidence of abscess on imaging, no??surgical intervention warranted??at this time. Would rec ommend local wound care to the skin at G-tube site.? Recommendations: -No??surgical intervention warranted??at this time -Local wound care to the skin at G-tube site -Remainder of care per primary team, EGS will sign off ?? Discussed with Dr. Lombardi?? [place]??[phone] with questions or concerns. ?? Problem List/Past Medical History Ongoing Cerebrovascular accident (CVA) COVID-19 Down's syndrome Hyperlipidemia Hypothyroid Megaloblastic anemia White matter disease, unspecified Procedure/Surgical History Cataract Clubfoot - congenital Home Medications Acetaminophen: 650 mg = 2 tablet, By Mouth, Every 8 hours, PRN (Pain) Aspirin Calcium And Vitamin D Combination: By Mouth, 2 times a day Cholecalciferol: 1,000 International_Units = 1 tablet, By Mouth, Daily in AM Docusate-Senna: 2 tablet, By Mouth, Daily at bedtime fluoride-potassium nitrate topical: 1 application, Topically, 2 times a day Fluticasone Nasal: 2 sprays, Nares, Both, Daily Gabapentin: 300 mg = 1 capsule, By Mouth, 2 times a day Guaifenesin: 200 mg = 10 mL, By Mouth, Every 4 hours, PRN (for cough) Ibuprofen: 200 mg = 2 tablet, By Mouth, Every 6 hours, PRN (for fever) Ketoconazole: See Instructions, 1 application Topically twice weekly Levothyroxine: 137 mcg = 1 tablet, By Mouth, Daily in AM Lorazepam: 1 mg = 1 tablet, By Mouth, Daily, PRN (as needed for anxiety) Ondansetron: 4 mg = 1 tablet, By Mouth, Every 6 hours Oxcarbazepine: 450 mg = 3 tablet, By Mouth, 2 times a day Trazodone: 50 mg = 1 tablet, By Mouth, Daily at bedtime Allergies amoxicillin clindamycin??(Amoxycillin allergy, Allergy to sulfa drugs) sulfa drugs trimethoprim??(hives) Social History Alcohol Use: Never. Home/Environment Living situation: Home with assistance. Lives with: [employer] Works for [employer] -> [facility]. Has 1:1 care. Substance Abuse Use: Never. Tobacco Use: Never (less than 100 in lifetime). Family History Mother: Cancer of lung Lab Results Labs Last 24 Hours BLOOD COUNT & DIFF ? Event Name?? Event Result?? Date/Time?? WBC 6.6 k/mm3 02/24/25 10:37:00 RBC 3.78 m/mm3??Low 02/24/25 10:37:00 Hgb 12.5 Gm/dL 02/24/25 10:37:00 Hct 39.6 % 02/24/25 10:37:00 MCV 104.8 femtoliters??High 02/24/25 10:37:00 MCH 33.1 pg 02/24/25 10:37:00 MCHC 31.6 Gm/dL??Low 02/24/25 10:37:00 Platelet Count 330 k/mm3 02/24/25 10:37:00 MPV 10.5 femtoliters 02/24/25 10:37:00 Nucleated RBC (Automated) 0 #/100 WBC'S 02/24/25 10:37:00 ? CHEM GENERAL ? Event Name?? Event Result?? Date/Time?? Sodium 140 mmol/L 02/24/25 10:37:00 Chloride 98 mmol/L 02/24/25 10:37:00 Bicarbonate Level 29 mmol/L 02/24/25 10:37:00 Anion Gap 13 mmol/L 02/24/25 10:37:00 Glucose Level 88 mg/dL 02/24/25 10:37:00 BUN 17 mg/dL 02/24/25 10:37:00 Creatinine-Blood 0.8 mg/dL 02/24/25 10:37:00 Magnesium 2.4 mg/dL??High 02/24/25 10:37:00 Alkaline Phosphatase 96 units/L 02/24/25 10:37:00 AST (SGOT) 20 units/L 02/24/25 10:37:00 ALT (SGPT) 11 units/L 02/24/25 10:37:00 Bilirubin, Total 0.3 mg/dL 02/24/25 10:37:00 ? Images (02/24/2025 13:[address] Abd/Pelvis W/ IV Contrast Only) RESULT: CT Abd/Pelvis W/ IV Contrast Only CT Abd/Pelvis W/ IV Contrast Only? INDICATION / CLINICAL QUESTION: Dementia. Down syndrome. New onset seizure-like activity with no history of seizure. ?? TECHNIQUE: Spiral CT through the abdomen and pelvis with IV contrast formatted in 3 planes. 80 cc of Isovue 300 was administered intravenously. The study was performed without oral contrast. Weight-based protocol using automatic tube modulation was used to optimize exposure parameters. CTDIvol Body: 9.10 mGy, ??DLP Body: 440 mGy*cm. ? COMPARISON: None. ?? FINDINGS:? Trimming Press Operator View Findings, Lines and Tubes: None.. ?? Visualized lower chest: There is an area of consolidation in the right lower lobe. Part of it does not enhance. Such failure of enhancement can be explained the a focus of necrotic pneumonia, or infarct such as from a nonvisualized pulmonary embolism. ?There is no pleural effusion. There is no pericardial effusion.? Diaphragm: Unremarkable. ?? Liver: 20 mm cyst posteriorly on the right. The liver is otherwise normal.. ?? Portal venous system: No thrombosis involving the portal, splenic or superior mesenteric veins. ?? Gallbladder: Normal size. Probable noncalcified gallstones. Borderline gallbladder wall thickening.. ?? Bile ducts: No biliary dilatation. ?? Spleen: Normal size. No focal abnormality. ?? Pancreas: Normal. ?? Adrenal Glands: Normal. ?? Kidneys and Ureters: Right Kidney: Normal. ?? Left Kidney: Normal. ?? Bladder: Low volume. No focal abnormality or stone disease.. ?? Stomach, Small bowel and Large Bowel:?? Stomach: Gastrostomy tube in satisfactory position. No gastric abnormality.. Small Bowel: No small bowel dilatation or gross inflammatory change. Large Bowel: No colonic dilatation or constipation. Abnormal appearance of the right colon with wall thickening and mucosal enhancement. There is a similar finding of wall thickening and mucosal enhancement in the sigmoid colon and rectum. ?? The Appendix is normal. ?? Reproductive/Pelvic organs: No pelvic mass or fluid collection.? Peritoneum, retroperitoneum, omentum and mesentery:?? There is no free air. . There is no ascites. ?? Lymph nodes: No enlarged lymph nodes ?? Aorta and iliac vessels: No evidence of abdominal aortic or iliac artery aneurysm ? Abdominal wall: No abdominal wall hernia ?? Bones: ?? There is no compression fracture. There is no spondylolysis. Minimal grade 1 spondylolisthesis L3 on L4 and L4-L5.4 Moderate Central spinal stenosis L2-L3 and L3-L4. ??No fracture or bony pelvis or proximal femurs. ?? IMPRESSION:?? 1. There is an area of consolidation in the right lower lobe suggestive of pneumonia. Part of this consolidated lung shows no enhancement. This regional nonenhancement could be explained either by an area of chronic pneumonia, or by a pulmonary embolism which is not identified on thisCT of the abdomen. ?? .?? 2. Cholelithiasis. ?? 3. Acute abnormality involving long segments of large bowel, suggestive of some type of nonspecificcolitis. This involves the entire right colon and also the entire sigmoid and rectum. [1] [1]??CT Abd/Pelvis W/ IV Contrast Only; Noe KEEN, Nolan Agrawal 02/24/2025 13:15 EDT * Maria C KEEN, Alva Martinez: PERFORM Event Display: Consultation Note Authored Date: [id number] ?? Attending Attestation: ?? The patient was seen,??and discussed with the team on the date of service documented. ??The clinical course, labs, and radiological studies were reviewed by me and findings on exam confirmed. ??I agree with the findings and assessment and plan as delineated above. ?? --- Alva Lombardi MD Division of Trauma, Acute Care Surgery, and Surgical Critical Care Note * Liana Snyder RN: PERFORM Event Display: Discharge/Transfer Note Hospital Authored Date: [id number] Nursing Discharge Note Entered On: 03/03/2025 18:14 EDT Performed On: 03/03/2025 18:11 EDT by Liana Snyder RN Nursing Discharge Note 2 Discharge Time : 03/03/2025 18:11 EDT Discharge Level of Care at Discharge : Homehealth/VNA Discharge VNA/Hospice/Home Care(v001) : [facility] [place] [phone] Patient Left Unit Via : Ambulance Patient Accompanied Off Unit with : Ambulance/Chair Van Personnel Handover Given to Transport Personnel : Yes DC Instructions Provided & Signed by Pt : No Patient Understands D/C Instructions : No Patient Instructions Discharge Signed : No Instructions for Discharge Comments : DC to [facility], pt unable to sign Did Pt have Specialty Bed or Wound Vac : No Liana Snyder RN - 03/03/2025 18:13 EDT * Keshav Fragoso MD: PERFORM Event Display: Discharge/Transfer Note Hospital Authored Date: [id number] Patient: ??WHITNEY KEMP ? Age:??64 Years?Sex:??Female?:??1960?? 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) Hypothyroidism (E03.9) Down syndrome (Q90.9) H/O: CVA (cerebrovascular accident) (Z86.73) Hypotension (I95.9) Hypophosphatemia (E83.39) _ Discharge Medications Acetaminophen (acetaminophen 325 mg oral tablet)??650 Milligram 2 tablet By Mouth Every 8 hours as needed Pain Albuterol/Ipratropium (albuterol-ipratropium 3 mg-0.5 mg/3 ml inhalation solution)??3 Milliliter Neb Every 4 hours as needed Wheezing/Shortness of Breath Ketoconazole (ketoconazole 2% topical cream)??See Instructions 1 application Topically twice weekly Lactobacillus Acidophilus (Acidophilus)??See Instructions 1 capsule By G tube ??Daily Levothyroxine (Levoxyl 0.137 mg oral tablet)??1 tab(s) 137 Microgram By Mouth Daily in AM Midodrine (midodrine 10 mg oral tablet)??1 tab(s) 10 Milligram By Mouth 3 times a day Midodrine (midodrine 10 mg oral tablet)??1 tab(s) 10 Milligram By Mouth 3 times a day as needed Blood Pressure Hypotension Oxcarbazepine (Trileptal 150 mg oral tablet)??75 Milligram G Tube 2 times a day Trazodone (traZODone 50 mg oral tablet)??50 Milligram 1 tablet By Mouth 2 times a day as needed Agitation ? Discharge Medications Changed Oxcarbazepine (Trileptal 150 mg oral tablet)75 Milligram Gastrostomy/PEG Tube twice a day. Unchanged Acetaminophen (acetaminophen 325 mg oral tablet)2 tab(s) Oral every 8 hours as needed Pain. Albuterol/Ipratropium (albuterol-ipratropium 3 mg-0.5 mg/3 ml inhalation solution)3 Milliliter Nebulized inhalation every 4 hours as needed Wheezing/Shortness of Breath. Aspirin (Aspirin Low Dose 81 mg oral tablet, chewable) Ketoconazole (ketoconazole 2% topical cream)See Instructions. 1 application Topically twice weekly. Lactobacillus Acidophilus (Acidophilus)1 capsule By G tube Daily. Levothyroxine (Levoxyl 0.137 mg oral tablet)1 tab(s) Oral Daily in the morning. Midodrine (midodrine 10 mg oral tablet)1 tab(s) Oral 3 times a day as needed Blood Pressure. Hypotension. Midodrine (midodrine 10 mg oral tablet)1 tab(s) Oral 3 times a day. Trazodone (traZODone 50 mg oral tablet)1 tab(s) Oral twice a day as needed Agitation. Discontinued Calcium And Vitamin D Combination (Calcium 600 +D)Oral twice a day. Cholecalciferol (Vitamin D3 1000 intl units oral tablet)1 tab(s) Oral Daily in the morning. Docusate-Senna (Senna Plus 50 mg-8.6 mg oral tablet)2 tab(s) Oral Daily at Bedtime. fluoride-potassium nitrate topical (PreviDent 5000 Enamel Protect 1.1%-5% topical paste)1 reynaldo Topically twice a day. Fluticasone Nasal (Flonase 50 mcg/inh nasal spray)2 spray(s) Nares, Both Daily. Refills: 0. Gabapentin (gabapentin 300 mg oral capsule)1 capsule Oral twice a day. Guaifenesin (guaiFENesin 100 mg/5 mL oral liquid)10 Milliliter Oral every 4 hours as needed for cough. Ibuprofen (ibuprofen 100 mg oral tablet)2 tab(s) Oral every 6 hours as needed for fever. Lorazepam (LORazepam 1 mg oral tablet)1 tab(s) Oral Daily as needed as needed for anxiety. Ondansetron (ondansetron 4 mg oral tablet)1 tab(s) Oral every 6 hours. Hospital Course 64 year old female who awas admitted on 02/24/25 for evaluation of G tube, concern of cellulitis.??In the ED, vital signs-temperature of 97.7, heart rate 59, respiratory rate 14, blood pressure 89/65,98% on room air. Labs with WBC of 6.6, hemoglobin 12.5, hematocrit 39.6, platelet 330. Basic metabolic profile was normal, LFTs within normal limit. Lactate was elevated to 2.7. Blood cultures were sent. She received 2 L of IV fluid with improvement of lactate 0.9. Given a dose of IV ceftriaxone 1 g, metronidazole 500 mg, vancomycin 1 g, midodrine [address] abdomen and pelvis showed area of consolidation in the right lower lobe suggestive of pneumonia/pulmonary embolism, cholelithiasis, acute abnormality of long segments of large bowel suggesting nonspecific colitis involving the right colon and entire sigmoid and rectum. Chest x-ray showed right basilar opacity. Further assessment with CT angio chest showed no evidence of PE, has right lower lobe pneumonia, small right pleural effusion. Surgery was consulted for G tube evaluation, it was determined that there was no acute intervention and we did not appreciate concern for soft tissue infection around the g tube site. On 02/27/25, G tube button was self removed and subsequently replaced. KUB with contrast via G tube showed appropriateplacement without leakage. As we tried to restart tube feeds there was concern of discomfort and overflow around the button with bolus feeds so we changed her g-tube regimen to continuous feeds. She tolerated her feeds without concern thereafter. There was also concern of c. diff infection and oralvancomycin was initiated. We were unable to collect a stool sample for testing given small and infrequent bowel movements, and it was determined that her stools did not suggest c. diff infection. Vancomycin was discontinued. She otherwise was determined to be at baseline with elisa vital signs, labs and physical exam and decision to discharge back to half-way was made on 03/01/25. However, priorto morning of planned??discharge she??again self removed her G-tube for what surgery was called andit was replaced with KUB confirmation.??That same night she was also??showing signs for??severe abdominal pain for which??morphine was given by cross-cover team.??Morning of??03/02/2025 she had a watery bowel movement and there was concern of??hypotension for which we initiated??evaluation for??C. difficile or other GI infection.??Her labs at that time did not show any leukocytosis she was afebrile and she responded well with??intravenous fluids and her normal regimen of midodrine.??She did not have an additional bowel movement for the remainder of the day and the??hospital course after that was??uncomplicated with normal vital signs and??no fevers.??We called her half-way to??discuss and this does seem to be??a chronic pattern of??diarrhea and pain for her.??I had??numerous conversations with her??legal guardians and it was determined that??further management of the G-tube and her abdominal symptoms would??be continued??after discharge. She does not have a provider that manages her G-tube and I recommend that she be reestablished with the??provider who??placed the G-tube originally.??Legal guardian still working on establishing care. ? Recommendations: ??- Given pt not tolerating bolus feeds, will change regimen to continuous as follows: standard 1.2kcal/mL non-fiber containing formula (Osmolite 1.2) at a goal rate of 38mL/hr x 22hrs (to provide 2hr bowel rest). TF regimen will provide 1003kcals (28kcals/kg), 46g PRO (1.2gm/kg), 67% RDIs, 685mL free water which meets pt's nutritional needs. ??To sum: ??- 38cc/hr for 22 hours a day with standard 1.2kcal/mL non-fiber containing formula (Osmolite 1.2) ??- 205cc free water flushes every 8 hours ??- 30cc free water before and after medication administrations - Setup immediate follow up with specialists for Gtube evaluation and management - Should not be brought back to hospital for concern of c. diff unless having profuse watery diarrhea, more than 3 a day and fevers ? Objective Vital Signs?? Temperature: 97.6 DegF (03/03/25 11:00:00) Temperature Route: Axillary (03/03/25 11:00:00) Pulse Rate: 71 bpm (03/03/25 11:00:00) Respiratory Rate: 16 br/min (03/03/25 11:00:00) Systolic Blood Pressure:??141 mm Hg??High (03/03/25 11:00:00) Diastolic Blood Pressure:??92 mm Hg??High (03/03/25 11:00:00) Blood pressure sites: Leg, right (03/03/25 11:00:00) Mean Arterial Pressure: 72 mm Hg (03/02/25 14:13:00) Pulse Pressure: 49 mm Hg (03/03/25 11:00:00) Oxygen Saturation: 94 % (03/03/25 11:00:00) Mode of Delivery (Oxygen): Room air (03/03/25 11:00:00) Early Warning Score: 7 (03/03/25 11:41:30) ? . Physical Exam Sleeping in bed, awakens easily to voice,??no acute distress, contracted, small for age Lungs CTA No murmurs, RRR,??warm and well perfused Abdomen soft, nontender. Binder in place, G tube insertion site non infected appearing R gluteal pressure wound, otherwise no skin lesions [facility] Pending Results No Pending Results Follow-Up Appointments Added Follow Up ?Time Frame ?Comments Po Alfredo KEEN?Within one week Patient Instructions You were evaluated for concern of infection around G tube site. Surgery was consulted, however there was not evidence of infection. There was some difficulties with your tube feeds and your tube feeding regimen was changed to continuous. There was concern about colitis and C. difficile infection, however you did not have clinical features that would suggest this infection and your vitals and lab work continued to be normal. You are being discharged, you should have a follow up with your PCP within 1 week of discharge. Please establish??a??relationship with a??provided who??can manage your??G?? Tube??concerns going forward.??We did not make any changes to your medication regimen. Home Health Face to Face ^HomeHealthFTF Results Image ?XR Chest 2 Views Frontal and Lat??02/24/2025 17:22 by Sheba Brown ? RESULT: Chest 2 Views Frontal and Lat ? Chest 2 Views Frontal and Lat Hx of Present Illness: patient from half-way, staff witnessed seizure like activity lasting about 1 minute, no history of seizures; Reason: Other:; Shortness of Breath, Fever; Clinical Question(s): Pneumonia; Order Comment: pt going straight in CT room first @ 02 24 2025 10:48:36 EDT DE 02 24 2025 12:08:19 EDT still has not come over yet for CT. SW COMPARISON: [facility], most recent dated 07/29/2019 FINDINGS: LINES AND TUBES: None. LUNGS AND PLEURA: Best images obtainable as per technologist due to patient condition. Patient unable to raise arms for the lateral view.There is an apparent right basilar opacity which may be secondary to combination of small right pleural effusion and atelectasis versus pneumonia. Slight prominence of the interstitial markings in the lower lungs, likely due to minimal interstitial pulmonary edema. No left pleural effusion. No definite pneumothorax although the lung apices are partially obscured by patient's overlying chin. HEART, MEDIASTINUM AND HODA: Mild cardiomegaly. Normal mediastinal and hilar contour. BONES AND SOFT TISSUES: No acute abnormality. IMPRESSION: Right basilar opacity which may represent a combination of small right pleural effusion and atelectasis versus pneumonia. (Limited lateral view) Minimal interstitial pulmonary edema in the lung bases. Mild cardiomegaly. ?CT Abd/Pelvis W/ IV Contrast Only??02/24/2025 13:15 by Lina Gordillo ? RESULT: CT Abd/Pelvis W/ IV Contrast Only ? CT Abd/Pelvis W/ IV Contrast Only INDICATION / CLINICAL QUESTION: Dementia. Down syndrome. New onset seizure-like activity with no history of seizure. TECHNIQUE: Spiral CT through the abdomen and pelvis with IV contrast formatted in 3 planes. 80 cc of Isovue 300 was administered intravenously. The study was performed without oral contrast. Weight-based protocol using automatic tube modulation wasused to optimize exposure parameters. CTDIvol Body: 9.10 mGy, DLP Body: 440 mGy*cm. COMPARISON: None. FINDINGS: Trimming Press Operator View Findings, Lines and Tubes: None.. Visualized lower chest: There is an area of consolidation in the right lower lobe. Part of it does not enhance. Such failure of enhancement can be explained the a focus of necrotic pneumonia, or infarct such as from a nonvisualized pulmonary embolism. There is no pleural effusion. There is no pericardial effusion. Diaphragm: Unremarkable. Liver: 20 mm cyst posteriorly on the right. The liver is otherwise normal.. Portal venous system: No thrombosis involving the portal, splenic or superior mesenteric veins. Gallbladder: Normal size. Probable noncalcified gallstones. Borderline gallbladder wall thickening.. Bile ducts: No biliary dilatation. Spleen: Normal size. No focal abnormality. Pancreas: Normal. Adrenal Glands: Normal. Kidneys and Ureters: Right Kidney: Normal. Left Kidney: Normal. Bladder: Low volume. No focal abnormality orstone disease.. Stomach, Small bowel and Large Bowel: Stomach: Gastrostomy tube in satisfactory position. No gastric abnormality.. Small Bowel: No small bowel dilatation or gross inflammatory change.Large Bowel: No colonic dilatation or constipation. Abnormal appearance of the right colon with wall thickening and mucosal enhancement. There is a similar finding of wall thickening and mucosal enhancement in the sigmoid colon and rectum. The Appendix is normal. Reproductive/Pelvic organs: No pelvic mass or fluid collection. Peritoneum, retroperitoneum, omentum and mesentery: There is no free air. . There is no ascites. Lymph nodes: No enlarged lymph nodes Aorta and iliac vessels: No evidence of abdominal aortic or iliac artery aneurysm Abdominal wall: No abdominal wall hernia Bones: There is no compression fracture. There is no spondylolysis. Minimal grade 1 spondylolisthesis L3 on L4 andL4-L5.4 Moderate Central spinal stenosis L2-L3 and L3-L4. No fracture or bony pelvis or proximal femurs. IMPRESSION: 1. There is an area of consolidation in the right lower lobe suggestive of pneumonia. Part of this consolidated lung shows no enhancement. This regional nonenhancement could be explained either by an area of chronic pneumonia, or by a pulmonary embolism which is not identified on this CT of the abdomen. . 2. Cholelithiasis. 3. Acute abnormality involving long segments of large bowel, suggestive of some type of nonspecific colitis. This involves the entire right colon and also the entire sigmoid and rectum. ?CT Angio Chest??02/24/2025 17:39 by Beth Guzmán ? RESULT: CT Angio Chest ? CT Angio Chest INDICATION: Hx of Present Illness: patient from half-way, staff witnessed seizure like activity lasting about 1 minute, no history of seizures; Reason: Other:; PE suspected, Intermediate prob, positive D-dimer; Clinical Question(s): Pulmonary Embolism; Order Comment: TECHNIQUE: Spiral CTA of the chest was performed after rapid IV contrast administration without cardiac gating, triggered by an JOELLE on the main pulmonary artery. Images are formatted in multiple planes using 2-D multiplanar and 3-D maximum intensity projection. 45 cc of Omnipaque 350 was administered intravenously. Weight-based protocol using automatic tube modulation was used to optimize exposure parameters. CT DIvol Body: 6.92 mGy, DLP Body: 273 mGy*cm. COMPARISONS: None ANGIOGRAPHIC FINDINGS: No pulmonary embolism to the subsegmental level. Normal caliber pulmonary arteries. No acute aortic abnormality seen on this study performed without cardiac gating. NON-ANGIOGRAPHIC FINDINGS: Trimming Press Operator view findings, lines and tubes: None. Trachea and airways: Patent without evidence of tracheal or endobronchial lesion. Lungs and pleura: There is airspace opacity and volume loss with air bronchograms in the right lower lobe consistent with pneumonia. There is a small right pleural effusion. No pneumothorax. Mediastinum and hoda: No mass or hematoma. No mediastinal or hilar lymphadenopathy. No esophageal abnormality. Normal thyroid. Heart: Heart is at the upper limits of normal for size. No pericardial effusion. Chest wall soft tissues: No acute abnormality. Diaphragm: Intact. Upper abdomen: No significant abnormality. Bones: No acute abnormality. IMPRESSION: No evidence of pulmonary embolism. Right lower lobe pneumonia. Small right pleural effusion. WSN: [id number] Ordering Physician: Esmer Britt ?CT Head/Brain W/O Contrast??02/25/2025 19:47 by Lucero Nunes ? RESULT: CT Head/Brain W/O Contrast ? CT Head/Brain W/O Contrast INDICATION: Reason: Other:; ? Seizure like activity; Clinical Question(s): Anoxic Ischemic Encephalopathy; Order Comment: TECHNIQUE: Noncontrast head CT using axial technique and reconstructed in axial and coronal planes. Iterative reconstruction techniques are used to optimize dose and image quality. CTDIvol Head: 48.30 mGy, DLP Head: 1546 mGy*cm. COMPARISON: CT head wi thout contrast 07/29/2019. FINDINGS: Trimming Press Operator view findings, lines and tubes: None. BRAIN AND EXTRA-AXIAL SPACES: Encephalomalacia in the superior left frontal lobe is unchanged. Similar encephalomalaciain the anteroinferior right frontal lobe. Suspect a small focus of encephalomalacia in the lateral left temporal lobe. No parenchymal hemorrhage, midline shift, or mass effect. No definite acute [place]-white matter differentiation. No acute infarct. Negative insular ribbon sign. Atherosclerotic vascular calcification of the carotid arteries but negative hyperdense vessel sign. Moderate prominence of the ventricles and sulci consistent with parenchymal volume loss, greater than would be expected for age. Moderate low-density white matter changes. No subarachnoid hemorrhage. No subdural or epidural collection. CALVARIUM, SKULL BASE, AND SOFT TISSUES: No fractures or suspicious bony lesions. There are superior protrusion of the dens which partially narrows the foramen magnum. There is contact with the brainstem and proximal cervical cord. There is also widening of the atlantodental in terval. There is only marginally more pronounced than the prior examination. The paranasal sinuses and mastoid air cells are clear. Status-post bilateral lens extraction. The extracranial soft tissues are unremarkable. IMPRESSION: No acute intracranial pathology. 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 Parenchymal volume loss greater than would be expected for age with chronic ischemic changes in the white matter which may be sequelae of microvascular disease. There are superior protrusion of the dens which partially narrows the foramen magnum. There is contact with the brainstem and proximal cervical cord. There is also widening of the atlantodental interval. There is only marginally more pronounced than the prior examination. The appearance is chronic, though incompletelyevaluated on the current examination. If indicated clinically this would be better assessed with MRI of the cervical spine. WSN: [id number] Ordering Physician: Sujata Esqueda ?XR ABD COMP/DECUB/ERECT??02/27/2025 10:12 by Ally Lopez ? RESULT: Abdomen Comp Inc Decub and/or Erect ? Abdomen Comp Inc Decub and/or Erect 2 view INDICATION/CLINICAL QUESTION: Reason: Localization Films; G-tube localization with contrast. Confirm gastric position, rule out leak; Clinical Question(s): Other:; Special Instructions: Please inject 30cc of gastrograffin into g-tube to confirm position. Page [id number] to inject contrast if needed COMPARISON: CT abdomen/pelvis 02/24/2025 FINDINGS: Injected contrast surrounds the gastrostomy tube balloon within the gastric body and partially opacifies gastric folds. No extraluminal contrast extravasation. Normal bowel gas pattern. No evidence of obstruction. No evidence of pneumoperitoneum. No organomegaly, masses or calcifications. No acute bone findings. IMPRESSION: Appropriately positioned gastrostomy tube. No extraluminal contrast extravasation. I have personally reviewed the images and I agree with this report. WSN: [id number] Ordering Physician:Emily Benjamin ?? Signature Line ? Dictated By: Grecia Juarez DO Dictated Date/Time: 02/27/25 10:53 a Reviewed By: Raghu Mendez MD, V Signed By: Raghu Mendez MD, V Signed Date/Time: 02/27/25 10:58 am Transcribed By: CSRosina Transcribed Date/Time: 02/27/25 10:51 am ? Patient was discussed with attending physician, Dr. Baum ?? Keshav Fragoso PGY-4 Resident Physician Internal Medicine-Pediatrics Pager # [phone] ?? Please excuse any??typographical or grammatical errors given the use of??dictation software.? 50??minutes spent on discharge * Stephani Baum DO: PERFORM Event Display: Discharge/Transfer Note Hospital Authored Date: Attending Attestation:??I have seen and evaluated this patient. ??I have discussed the case and itsmanagement with the resident and agree with the findings and plan as documented in the resident???snote. ?? * Liana Snyder RN: PERFORM Event Display: Patient Education/Instruction Authored Date: [id number] Inpatient Adult Discharge Instructions. [address] [address] Name: WHITNEY KEMP : 1960?? Visit: 02/24/2025 18:57?? Current Date: 03/03/2025 13:13 ?? Account: [id number]?? Inpatient Adult Discharge Instructions We would like to thank you for allowing us to assist you with your healthcare needs. The following includes patient education materials and information regarding your injury/illness. Our entire staffstrives to provide an excellent experience for our patients and their families. PLEASE ENSURE YOU FOLLOW-UP PER THE INSTRUCTIONS BELOW! ?? YOUR OPINION IS IMPORTANT TO US! Please complete the survey you may receive by mail or email. Your feedback will be used to make improvements to the healthcare experiences of our patients and their families. Surveys are administered by [employer] ?? If further treatment with your primary care physician or another doctor is recommended, it is important for you to keep the appointment. Call your primary care physician or return to the Emergency Department immediately if your condition worsens, fails to improve, or new symptoms develop. If you need to find a doctor, you can call [facility] [employer] for a referral at [phone] or toll free at [phone]) or log in to [email or web address].. ?? [facility], in keeping with [facility] guidance, no longer requires face masks for staff, patientsor visitors in most situations. Similiar to time spent indoors at other locations, there is the chance that you were exposed to repiratory viruses during your time with us (such as flu or COVID-19). If you develop symptoms concerning for a viral respiratory infection, please seek testing (and treatment if indicated) from your medical provider or home test kit. ?? You can view and manage your care through the patient portal or by using a health care reynaldo of your choosing. [employer] is a website that allows you to securely view your medical information including your hospital discharge summary, office visit summaries, medications and follow-up visits. You can also request appointments, renew medications, and request access to your medical information using a health care reynaldo of your choosing, or just ask a question. You are entitled to know the individuals who participated in your treatment.This information is available within your medical record and will be provided upon your request. You can enroll at [email or web address] or register during your next office visit. You have been discharged from [facility], Patient Care Unit: D5A??. If you have any questions or concerns following your procedure, please call your surgeon?s office for assistance. [facility] Your Care Team Attending Physician Stephani Baum DO?? Consulting Providers Stephani Baum DO?? Discharging Providers [place] KEEN, Keshav Saeed Reason for Your Visit patient from half-way, staff witnessed seizure like activity lasting about 1 minute, no hx of seizures, called 911 currently acting baseline.?? Your Diagnosis Community acquired pneumonia of right lower lobe of lung Diarrhea Down syndrome G-tube site cellulitis Gastrostomy tube dependent H/O: CVA (cerebrovascular accident) Hypophosphatemia Hypotension Hypothyroidism Recurrent Clostridioides difficile diarrhea Tests Performed Below is a partial list of the tests performed during your hospitalization. You may have had other tests and procedures not included in this list. Please discuss all test results with your provider. Basic Metabolic Panel Blood Culture Blood Culture #2 Blood Culture 2 Results Blood Culture Result CBC CBC w/ Differential Comprehensive Metabolic Panel COVID-19, RSV, and Flu A/B, Rapid PCR CRP FREE T4 GLUCOSE POC HOLD GREEN TUBE Lactate Level Lipase Magnesium Level Mg Level Phosphorus Level PROCALCITONIN TSH with T4 Reflex (Adults Only) Urinalysis w/hold for Urine Culture CT Abd/Pelvis W/ IV Contrast Only CT Angio Chest CT Head/Brain W/O IV Contrast XR ABD COMP/DECUB/ERECT XR Chest 2 Views Frontal and Lat Basic Metabolic Panel?? Blood Culture?? Blood Culture #2?? Blood Culture 2 Results?? Blood Culture Result?? C Reactive Protein (CRP)?? CBC?? CBC w/ Differential?? COVID-19, RSV, and Flu A/B, Rapid PCR?? CT Abd/Pelvis W/ IV Contrast Only?? CT Angio Chest?? CT Head/Brain W/O Contrast (CT Head/Brain W/O IV Contrast)?? Comprehensive Metabolic Panel?? Free T4?? Glucose POC?? Hold Green Top Tube (HOLD GREEN TUBE)?? Lactic Acid Level (Lactate Level)?? Lipase?? Magnesium Level (Mg Level)?? Phosphorus Level?? Procalcitonin Level (PROCALCITONIN)?? TSH with T4 Reflex (Adults Only)?? Urinalysis w/hold for Urine Culture?? Abdomen Comp Inc Decub and/or Erect (XR ABD COMP/DECUB/ERECT)?? Chest 2 Views Frontal and Lat (XR Chest 2 Views Frontal and Lat)?? Primary Care Provider Alfredo Walls MD? Advance Directive Health Care Proxy on File No Discharge Vitals Temperature: 97.6 DegF Weight: 35.5 kg Pulse Rate: 71 bpm ?? Respiratory Rate: 16 br/min ?? Systolic Blood Pressure:??141 mm Hg??High ?? Diastolic Blood Pressure:??92 mm Hg??High ?? Oxygen Saturation: 94 % ?? Studies Pending All studies ordered during this hospital stay have been completed unless listed below. Please discuss all pending results with your provider listed above in these instructions. ?? No incomplete studies found?? What to do next Instructions From Your Doctor You were evaluated for concern of infection around G tube site. Surgery was consulted, however there was not evidence of infection. There was some difficulties with your tube feeds and your tube feeding regimen was changed to continuous. There was concern about colitis and C. difficile infection, however you did not have clinical features that would suggest this infection and your vitals and lab work continued to be normal. You are being discharged, you should have a follow up with your PCP within 1 week of discharge. Please establish??a??relationship with a??provided who??can manage your??G?? Tube??concerns going forward.??We did not make any changes to your medication regimen. ?? Orders?? to transport, time frame pending., ??03/03/25 12:34:00 EDT?? You Need to Schedule the Following Appointments Follow Up with??Alfredo Walls MD When:Within Within one week Where:[address] [place] [id number]- Discharge Medications WHITNEY KEMP :1960 Visit Date:02/24/2025 Medications: Please continue your medications until treatment is completed or stopped by your provider. Medications not listed below should be discontinued. Discuss any questions related to medications with your provider. What How Much When Instructions Next Dose Changed Oxcarbazepine (Trileptal 150 mg oral tablet) 75 Milligram Gastrostomy/PEG Tube Twice a day Ordering Physician: Keshav Fragoso MD 03/03/25 9pm Unchanged Acetaminophen (acetaminophen 325 mg oral tablet) 2 tab(s) Oral Every 8 hours as needed for Pain Take as prescribed Unchanged Albuterol/ Ipratropium (albuterol-ipratropium 3 mg-0.5 mg/ 3 ml inhalation solution) 3 Milliliter Nebulized inhalation Every 4 hours as needed for Wheezing/Shortness of Breath Take as prescribed Unchanged Aspirin (Aspirin Low Dose 81 mg oral tablet, chewable) Tomorrow 03/04/25 9am Unchanged Ketoconazole (ketoconazole 2% topical cream) See Instructions Special Instructions: 1 application Topically twice weekly ?? Not given, resume as prescribed Unchanged Lactobacillus Acidophilus (Acidophilus) See instructions Special Instructions: 1 capsule By G tube Daily Tomorrow 03/04/25 9am Unchanged Levothyroxine (Levoxyl 0.137 mg oral tablet) 1 tab(s) Oral Daily in the morning Tomorrow 03/04/25 7am Unchanged Midodrine (midodrine 10 mg oral tablet) 1 tab(s) Oral 3 times a day as needed for Blood Pressure Special Instructions: Hypotension ?? Take as prescribed Unchanged Midodrine (midodrine 10 mg oral tablet) 1 tab(s) Oral 3 times a day Today 03/03/25 3pm Unchanged Trazodone (traZODone 50 mg oral tablet) 1 tab(s) Oral Twice a day as needed for Agitation Take as prescribed ?? What How Much When Comments Stop Taking Calcium And Vitamin D Combination (Calcium 600 +D) Oral Twice a day Stop Taking Cholecalciferol (Vitamin D3 1000 intl units oral tablet) 1 tab(s) Oral Daily in the morning Stop Taking Docusate-Senna (Senna Plus 50 mg-8.6 mg oral tablet) 2 tab(s) Oral Daily at Bedtime Stop Taking fluoride-potassium nitrate topical (PreviDent 5000 Enamel Protect 1.1%-5% topical paste) 1 reynaldo Topically Twice a day Stop Taking Fluticasone Nasal (Flonase 50 mcg/ inh nasal spray) 2 spray(s) Nares, Both Daily Ordering Physician: Keshav Fragoso MD Stop Taking Gabapentin (gabapentin 300 mg oral capsule) 1 capsule Oral Twice a day Stop Taking Guaifenesin (guaiFENesin 100 mg/ 5 mL oral liquid) 10 Milliliter Oral Every 4 hours as needed for for cough Stop Taking Ibuprofen (ibuprofen 100 mg oral tablet) 2 tab(s) Oral Every 6 hours as needed for for fever Stop Taking Lorazepam (LORazepam 1 mg oral tablet) 1 tab(s) Oral Daily as needed for as needed for anxiety Stop Taking Ondansetron (ondansetron 4 mg oral tablet) 1 tab(s) Oral Every 6 hours Ordering Physician: Alfredo Walls MD Prescription Given During Visit No new medications prescribed at time of discharge.?? Laboratory Results Below is a partial list of the most recent Laboratory test results done prior to this discharge. You may have had other tests and procedures not included in this list. Please discuss all test resultswith your provider. Basic Metabolic Panel (03/03/2025) ???Sodium - 141 mmol/L???Potassium - 3.7 mmol/L???Chloride - 107 mmol/L???Bicarbonate Level - 31 mmol/L???Anion Gap - 3 mmol/L???Glucose Level - 107 mg/dL???BUN - 8 mg/dL???Creatinine-Blood - 0.59 mg/dL???Estimated GFR Creatinine - 101 ML/MIN/1.73 M2???Calcium - 7.8 mg/dL Blood Culture (02/24/2025) ???Blood Culture Results - Final report???Blood Culture Specimen Source - BLOOD Blood Culture #2 (02/24/2025) ???Blood Cult 2 Results - Final report???Blood Culture 2 Specimen Source - BLOOD Blood Culture 2 Results (02/24/2025) ???Blood Culture 2 Isolate 1 - Comment Blood Culture Result (02/24/2025) ???Blood Culture Isolate 1 - Comment CBC (02/27/2025) ???WBC - 5.1 k/mm3???RBC - 3.13 m/mm3???Hgb - 10.4 Gm/dL???Hct - 32.8 %???MCV - 104.8 femtoliters???MCH - 33.2 pg???MCHC - 31.7 Gm/dL???Platelet Count - 206 k/mm3???RDW-SD - 62.6 femtoliters???MPV - 10.3 femtoliters???Nucleated RBC (Automated) - 0.0 #/100 WBC'S???Abs. NRBC - 0.0 k/mm3 CBC w/ Differential (03/03/2025) ???WBC - 3.6 k/mm3???RBC - 3.10 m/mm3???Hgb - 10.2 Gm/dL???Hct - 32.4 %???MCV - 104.5 femtoliters???MCH - 32.9 pg???MCHC - 31.5 Gm/dL???Platelet Count - 180 k/mm3???RDW-SD - 64.6 femtoliters???MPV - 10.5 femtoliters???Nucleated RBC (Automated) - 0.0 #/100 WBC'S???Abs. NRBC - 0.0 k/mm3???Abs. Neut -2.2 k/mm3???Abs. Lymph - 0.8 k/mm3???Abs. Lassen - 0.3 k/mm3???Abs. Eo - 0.2 k/mm3???Abs. Baso - 0.0 k/mm3???Neut % - 62.1 %???Lymph % - 22.3 %???Lassen % - 9.2 %???Eos % - 4.7 %???Baso % - 1.1 %???Imm Gran - 0.6 %???Abs. Imm Gran - 0.0 k/mm3 Comprehensive Metabolic Panel (03/02/2025) ???Sodium - 143 mmol/L???Potassium - 3.2 mmol/L???Chloride - 106 mmol/L???Bicarbonate Level - 29 mmol/L???Anion Gap - 8 mmol/L???Glucose Level - 83 mg/dL???BUN - 8 mg/dL???Creatinine-Blood - 0.62 mg/dL???Estimated GFR Creatinine - 99 ML/MIN/1.73 M2???Calcium - 8.0 mg/dL???Protein, Total - 5.3 Gm/dL???Albumin - 2.5 Gm/dL???AG Ratio - 0.9???Alkaline Phosphatase - 68 units/L???AST (SGOT) - 19 units/L???ALT (SGPT) - 12 units/L???Bilirubin, Total - 0.3 mg/dL COVID-19, RSV, and Flu A/B, Rapid PCR (02/24/2025) ???Influenza A PCR - NEGATIVE???Influenza B PCR - NEGATIVE???RSV PCR - NEGATIVE???COVID-19 PCR Specimen Source - NASAL???COVID-19 PCR Result - NEGATIVE CRP (03/03/2025) ???C-Reactive Protein - 4.4 mg/dL FREE T4 (02/24/2025) ???Free T4 - 1.25 ng/dL GLUCOSE POC (03/03/2025) ???Glucose, POC - 97 mg/dL HOLD GREEN TUBE (02/25/2025) ???Hold Green Top - SPECIMEN DISCARDED AFTER 1 WEEK Lactate Level (03/02/2025) ???Lactate - 1.2 mmol/L Lipase (02/24/2025) ???Lipase, Serum/Plasma - 19 units/L Magnesium Level (02/27/2025) ???Magnesium - 2.0 mg/dL Mg Level (03/02/2025) ???Magnesium - 2.0 mg/dL Phosphorus Level (03/02/2025) ???Phosphorus - 3.0 mg/dL PROCALCITONIN (02/25/2025) ???Procalcitonin - 0.04 ng/mL TSH with T4 Reflex (Adults Only) (02/24/2025) ???TSH - 40.30 uIU/mL Urinalysis w/hold for Urine Culture (02/24/2025) ???Appear/Color, Urine - COLORLESS???Specific [place], Urine - 1.008???pH, Urine - 7.5???Albumin, Urine - NEGATIVE???Glucose, Urine - NEGATIVE???Ketones, Urine - NEGATIVE???Bilirubin, Urine - NEGATIVE???Hemoglobin, Urine - NEGATIVE???Nitrite, Urine - NEGATIVE???Leukocyte, Urine - NEGATIVE???Urobilin ogen - NORMAL WBC's, Urine - 1 /HPF RBC's, Urine - <1 /HPF Hold Urine Culture - Testing available 48 hours from time of collection. Allergies (NKA means No Known Allergies) amoxicillin clindamycin??Amoxycillin allergy, Allergy to sulfa drugs sulfa drugs trimethoprim??hives Problems Active Problems??(7) Cerebrovascular accident (CVA)?? COVID-19?? Down's syndrome?? Hyperlipidemia?? Hypothyroid?? Megaloblastic anemia?? White matter disease, unspecified?? Education Materials Below is the list of Educational Leaflet Providered with your Discharge Instructions. Valuables and Belongings I fully understand and agree that [facility] accepts no responsibility for all my personal property including clothing, toilet articles, radios, jewelry, dentures, hearing aids, rings, money, or any other property that is in my possession or is brought to me after admission. I understand certain valuables may be placed in a hospital safe for a short period of time. I understand that the hospital is not liable for loss or damage due to accident, fire, or other natural occurrence while said property is in the safe. I accept full responsibility for any personal property that I keep with me, and will not hold the hospital responsible in case of loss or disappearance. I acknowledge that i have been encouraged to send valuables and belongings home. ?? Date for Pt to Sign Valuables/Belongings: 02/25/25 05:47:00 ?? Other Discharge Information ? Pulmonary Rehab Status?? Pulmonary Rehab Discharge Status?? Respiratory Rate: 16 br/min ? Common Emergency Awareness Tips IS IT A STROKE? Act FAST and Check for these signs: FACE Does the face look uneven? ARM Does one arm drift down? SPEECH Does their speech sound strange? TIME Call at any sign of stroke ?? Heart Attack Signs Chest discomfort: Most heart attacks involve discomfort in the center of the chest and lasts more than a few minutes, or goes away and comes back. It can feel like uncomfortable pressure, squeezing, fullness or pain. Discomfort in upper body: Symptoms can include pain or discomfort in one or both arms, back, neck, jaw or stomach. Shortness of breath: With or without discomfort. Other signs: Breaking out in a cold sweat, nausea, or lightheaded. Remember, MINUTES DO MATTER. If you experience any of these heart attack warning signs, call to get immediate medical attention! ?? Smoking can increase your chances of developing chronic health problems and can cause harmful effects to other family members in your house. If you smoke, you are strongly encouraged to quit. Please call [facility] at [phone] or [phone]) or log in to [email or web address] for referrals to smoking cessation programs. ?? 183 Suicide & Crisis Lifeline is available 26/01 if you or someone you know needs to find a reason to keep living. By calling 541 you'll be connected to a skilled, trained counselor at a crisis center in your area. INPATIENT DISCHARGE INSTRUCTIONS SIGNATURE PAGE FELISA KEMPNDA Location:[facility] Registration Date and Time:02/24/2025 18:57 EDT Primary Care Physician: Alfredo Walls MD, Attending Physician: Stephani Baum DO, I WHITNEY KEMP, have received the above patient education materials/instructions and have verbalized understanding. If ambulance or transport services are being used I further acknowledge being given a choice of service. ?? If you need to contact me, please call me at this number: . Patient/Engineering Scientist Name: Patient/Engineering Scientist Signature: Relationship to Patient: Witness Name/Signature: Date: * Liana Snyder RN: PERFORM Event Display: Patient Education Leaflets Authored Date: [id number] Gastrostomy Feeding Tube Care: Flushing ?? 33962 Gastrostomy Feeding Tube Care: Flushing With gastrostomy tube feeding, you need to keep the tube from getting clogged. You do this by flushing it with warm water after each feeding and before and after giving any medicines. There are different types of gastrostomy feeding tubes. One type has a connection that lets you plug or push the syringe into the feeding tube port. A newer type has a twist-on safety connector. The twist-on safety connector means you must use a specific type of syringe that twists onto your feeding tube port. Check with your care team to make sure you are following the steps for your specific type of gastrostomy tube. Ask for written gastrostomy tube instructions. Review the material with a care customer solutions teammate before you leave the hospital. Don't hesitate to ask questions and take notes. Have the information repeated as many times as needed until it's clear to you. Wash your hands with soap and water before and after handling the feeding tube. Plug-in syringe and tube ?? Twist-on syringe and tube ?? For continuous feeding Flush the feeding tube with warm water and a clean the syringe before the first daily feeding, after the last daily feeding, and other times as instructed. Follow the steps below: 1. Fill a clean bowl with warm water. 2. Put the tip of the syringe in the water. 3. Draw up 15 to 30 cc (mL) of water.Follow your provider's specific instructions. The exact amount of water to use will vary depending on your age, condition, and situation. 4. Turn off the pump. 5. Close the clamp on the feeding bag tubing. 6. Remove the tubing from the port. 7. Put the tip of the syringe in the feeding port. ??? Plug-in port. If you have a plug-in feeding tube port, push the tip of the syringe into the feeding tube port. ??? Twist-on port. If you have a twist-on feeding tube port, screw the syringe tip onto your feeding port. 8. Push the plunger down. 9. Let the water run through the feeding tube. 10. Start the feeding or close the cap on the feeding port. 11. Tape the tube to the skin with medical tape. ?? Plug-in syringe and tube ?? Twist-on syringe and tube ?? For bolus feeding You may be told to flush the feeding tube before and after each feeding, or just after feedings. Use a clean syringe and warm water. Follow the steps below: 1. Fill a clean bowl with warm water. 2. Put the tip of the syringe in the water. 3. Draw up ____ cc (mL) of water. (Tap water is okay to use.)??Follow your provider's specific instructions. The exact amount of water to use will vary depending on your age, condition, and situation. 4. Open the cap on the feeding port. 5. Put the tip of the syringe in the feeding port. ??? Plug-in port. If you have a plug-in type feeding tube port, push the tip of the syringe into the feeding tube port. ??? Twist-on port. If you have a twist-on feeding tube port, screw the syringe tip onto your feeding port. 6. Push down on the plunger. Let the water run through the tube. 7. Close the cap. 8. Tape the tube to the skin with medical tape. ?? Last Reviewed Date: 2024 00:00:00 ?? [employer]. All rights reserved. This information is not intended as a substitute for professional medical care. Always follow your healthcare professional's instructions. ?? * Liana Snyder RN: PERFORM Event Display: Patient Education Leaflets Authored Date: [id number] Diarrhea with Uncertain Cause (Adult) ?? [id number] Diarrhea with Uncertain Cause (Adult) Diarrhea is when stools are loose and watery. This can be caused by: ??? Viral infections. ??? Bacterial infections. ??? Food poisoning. ??? Parasites. ??? Irritable bowel syndrome (IBS). ??? Inflammatory bowel diseases, such as ulcerative colitis, Crohn's disease, and celiac disease. ??? Food intolerance, such as to lactose, the sugar found in milk and milk products. ??? A reaction to medicines like antibiotics, laxatives, cancer medicines, and antacids. ??? Abdominal surgery. Along with diarrhea, you may also have: ??? Abdominal pain and cramping. ??? Nausea and vomiting. ??? Loss of bowel control. ??? A fever and chills. ??? Bloody stools. In some cases, antibiotics may help to treat diarrhea. You may have a stool sample test which is done to see what is causing your diarrhea, and if antibiotics will help treat it. The results of a stool sample test may take several days. The health care provider may not give you antibiotics until they have the stool test results. Diarrhea can cause dehydration. This is the loss of too much water and other fluids from the body. When this occurs, you must replace those body fluids. This can be done with oral rehydration solutions. Oral rehydration solutions are available at drugstores and grocery stores without a prescription. Sports drinks are not the best choice if you are very dehydrated. They usually have too much sugarand not enough electrolytes. Home care Follow all instructions given by your health care provider. Rest at home for the next 24 hours, or until you feel better. Stay away from caffeine, tobacco, and alcohol. These can make diarrhea, cramping, and pain worse. If taking medicines: ??? Whdj-vdj-zfmjqyi nausea and diarrhea medicines are generally OK unless you experience fever or blood in the stool. Check with your provider first in those circumstances. ??? You may use acetaminophen or nonsteroidal anti-inflammatory drugs (NSAIDs) such as ibuprofen or naproxen to reduce pain and fever. Don???t use these if you have chronic liver or kidney disease, or ever had a stomach ulceror gastrointestinal??bleeding. Don't use NSAID medicines on an empty stomach or if you are already taking a NSAID for another condition (like arthritis) or are on daily aspirin therapy (such as for heart disease or after a stroke). Talk with your provider first. ??? If antibiotics were prescribed, be sure you take them until they are finished. Don???t stop taking them even when you feel better. Antibiotics must be taken exactly as prescribed. To prevent the spread of illness: ??? Remember that washing with soap and clean, running water or using alcohol- based glass forming crew member are the best ways to prevent the spread of infection. Wash your hands after going to the bathroom. Dry your hands with a single-use towel (like a paper towel). ??? If possible, use a separate toilet if youare having diarrhea or clean the toilet after each use. ??? Wash your hands before eating. ??? Wash your hands before and after preparing food. Keep in mind that people with diarrhea or vomiting should not prepare food for others. ??? Wash your hands after using cutting boards, counter tops, and knives that have been in contact with raw foods. ??? Wash and then peel fruits and vegetables. ??? Keep uncooked meats away from cooked and rdure-gb-yji foods. ??? Use a food thermometer when cooking. Cook poultry to at least 165??F (74??C). Cook ground meat (beef, veal, pork, gotti) to at least 160??F(71??C). Cook fresh beef, veal, gotti, and pork to at least 145??F (63??C). ??? Don???t eat raw or undercooked eggs (poached or dave side up), poultry, meat, or unpasteurized milk and juices. Food and drinks The main goal while treating vomiting or diarrhea is to prevent dehydration. This is done by takingsmall amounts of liquids often. ??? Keep in mind that liquids are more important than food right now. ??? Drink only small amounts of liquids at a time. ??? Don???t force yourself to eat, especially if you are??having cramping, vomiting, or diarrhea. Don???t eat large amounts at a time, even if you are hungry. ??? If you eat, stay away from fatty, greasy, spicy, or fried foods. ??? Don???t eat dairy foods or drink milk if you have diarrhea.??These can make??diarrhea worse. During the first 24 hours you can try: ??? Oral rehydration solutions.??Sports drinks may be used if you are not too dehydrated and are otherwise healthy. ??? Soft drinks without caffeine. ??? Amy lalita. ??? Water (plain or flavored). ??? Decaf tea or coffee. ??? Clear broth, consomm??, or bouillon. ??? Gelatin, ice pops, or frozen fruit juice bars. The second 24 hours, if you are feeling better, you can add: ??? Hot cereal, plain toast, bread, rolls, or crackers. ??? Plain noodles, rice, mashed potatoes, chicken noodle soup, or rice soup. ??? Applesauce, unsweetened canned fruit (no pineapple). ??? Bananas. As you recover: ??? Broaden your diet when you feel ready. In general, a low-fat diet may be bettertolerated. This includes lean meat, poultry, and fish. ??? Limit fiber. Initially limit raw or lightly cooked vegetables, fresh fruits except bananas, or bran cereals. Add them back when you feel ready. ??? Limit caffeine and chocolate. ??? Limit dairy. If you tolerated dairy products before your diarrhea, add them back when you feel ready. Some people are lactose intolerant for a while after diarrhea. ??? Don???t use spices or seasonings except salt. ??? Go back to your normal diet over time, as you feel better and your symptoms improve. ??? If the symptoms come back, go back to a simple diet or clear liquids and contact your health care provider. ?? Follow-up care Follow up with your health care provider, or as advised. If a stool sample was taken or cultures were done, call the provider for the results as instructed. ?? Call 911 Call 911 if you have: ??? Trouble breathing. ??? Confusion. ??? Extreme drowsiness or trouble walking. ??? Loss of consciousness. ??? A rapid heart rate. ??? Chest pain. ??? A stiff neck. ??? A seizure. ?? When to get medical advice Contact your health care provider right away if: ??? You have abdominal pain that gets worse. ??? You have constant lower right abdominal pain. ??? You have continued vomiting and inability to keep liquids down. ??? You have diarrhea more than 5 times a day. ??? You have blood in vomit or stool. ??? You have dark urine or no urine for 8 hours, dry mouth and tongue, tiredness, weakness, or dizziness. ??? You have drowsiness. ??? You have a new rash. ??? You don???t get better in 2 to 3 days. ???You have a fever of 100.4??F (38??C) or higher, or as advised by your provider. ?? Last Reviewed Date: 2024 00:00:00 ?? 5536-0584 [employer]. All rights reserved. This information is not intended as a substitute for professional medical care. Always follow your healthcare professional's instructions. ?? * Liana Snyder RN: PERFORM Event Display: Patient Education Leaflets Authored Date: [id number] Treating Diarrhea ?? 68361 Treating Diarrhea Diarrhea happens when you have loose, watery, or frequent bowel movements. It's a common problem with many causes. Most cases of diarrhea clear up on their own. But certain cases may need treatment. Be sure to see your health care provider??if your symptoms don't get better in a few days. Getting relief Treatment of diarrhea depends on its cause. If it's caused by bacterial or parasite infection, it'soften treated with antibiotics. Diarrhea from other causes, such as a stomach virus, often improveswith simple home treatment. The tips below may help ease your symptoms. ??? Drink plenty of fluids. This helps prevent too much fluid loss (dehydration). The fluids shouldcontain water, salt, and sugar. Oral rehydration solution (ORS), a mixture of glucose and sodium, works best. You can buy it without a prescription. ??? Don't have drinks with caffeine. Don't drink al cohol, coffee, tea, or milk. These can irritate your intestines and??make symptoms worse. ??? Avoidfruits and vegetables that can cause gas. These include broccoli, peppers, beans, peas, berries, prunes, chickpeas, green leafy vegetables, and corn. ??? Don't drink fruit juices or liquids that are high in sugar. ??? Suck on ice chips first if drinking fluids makes you queasy. ??? Eat more starchyfoods like rice, cereal, and crackers. Don't eat red foods. They might look like blood in diarrhea.??? Return to your normal diet slowly. You may want to eat bland foods at first, such as rice and toast. You may need to stay away from certain foods for a while, such as dairy products. These can make symptoms worse. Ask your??health care provider??if there are any other foods you should stay awayfrom. ??? If your doctor prescribed antibiotics, take them as directed. Don't stop taking them justbecause you feel better. You need to take the full course of antibiotics. ??? Don't take anti-diarrhea medicines without asking your??provider??first. ??? Keep in mind that you may be infectious. Wash your hands often with soap and clean, running water. Or use an alcohol-based glass forming crew member that contains at least 60% alcohol. ?? Call your health care provider?? Call your provider right away if:? You have chills or a fever of 100.4??F ( 38.0??C) or higher, or as directed by your provider. ??? You have severe pain. ??? You have worsening diarrhea or diarrhea for more than 2 days. ??? Your vomit or stool has blood in it. ??? You have symptoms of dehydration (dizziness, dry mouth and tongue, rapid pulse, dark urine). ?? Last Reviewed Date: 2024 00:00:00 ?? 7768-5797 [employer]. All rights reserved. This information is not intended as a substitute for professional medical care. Always follow your healthcare professional's instructions. ?? * [place] KEEN, Keshav Saeed: MODIFY, PERFORM Event Display: Discharge/Transfer Note Hospital Authored Date: [id number] Patient: ??WHITNEY KEMP ? Age:??64 Years?Sex:??Female?:??1960?? 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) Hypothyroidism (E03.9) Down syndrome (Q90.9) H/O: CVA (cerebrovascular accident) (Z86.73) Hypotension (I95.9) Hypophosphatemia (E83.39) _ Discharge Medications Acetaminophen (acetaminophen 325 mg oral tablet)??650 Milligram 2 tablet By Mouth Every 8 hours as needed Pain Albuterol/Ipratropium (albuterol-ipratropium 3 mg-0.5 mg/3 ml inhalation solution)??3 Milliliter Neb Every 4 hours as needed Wheezing/Shortness of Breath Ketoconazole (ketoconazole 2% topical cream)??See Instructions 1 application Topically twice weekly Lactobacillus Acidophilus (Acidophilus)??See Instructions 1 capsule By G tube ??Daily Levothyroxine (Levoxyl 0.137 mg oral tablet)??1 tab(s) 137 Microgram By Mouth Daily in AM Midodrine (midodrine 10 mg oral tablet)??1 tab(s) 10 Milligram By Mouth 3 times a day Midodrine (midodrine 10 mg oral tablet)??1 tab(s) 10 Milligram By Mouth 3 times a day as needed Blood Pressure Hypotension Oxcarbazepine (Trileptal 150 mg oral tablet)??75 Milligram G Tube 2 times a day Trazodone (traZODone 50 mg oral tablet)??50 Milligram 1 tablet By Mouth 2 times a day as needed Agitation ? Discharge Medications Changed Oxcarbazepine (Trileptal 150 mg oral tablet)75 Milligram Gastrostomy/PEG Tube twice a day. Unchanged Acetaminophen (acetaminophen 325 mg oral tablet)2 tab(s) Oral every 8 hours as needed Pain. Albuterol/Ipratropium (albuterol-ipratropium 3 mg-0.5 mg/3 ml inhalation solution)3 Milliliter Nebulized inhalation every 4 hours as needed Wheezing/Shortness of Breath. Aspirin (Aspirin Low Dose 81 mg oral tablet, chewable) Ketoconazole (ketoconazole 2% topical cream)See Instructions. 1 application Topically twice weekly. Lactobacillus Acidophilus (Acidophilus)1 capsule By G tube Daily. Levothyroxine (Levoxyl 0.137 mg oral tablet)1 tab(s) Oral Daily in the morning. Midodrine (midodrine 10 mg oral tablet)1 tab(s) Oral 3 times a day as needed Blood Pressure. Hypotension. Midodrine (midodrine 10 mg oral tablet)1 tab(s) Oral 3 times a day. Trazodone (traZODone 50 mg oral tablet)1 tab(s) Oral twice a day as needed Agitation. Discontinued Calcium And Vitamin D Combination (Calcium 600 +D)Oral twice a day. Cholecalciferol (Vitamin D3 1000 intl units oral tablet)1 tab(s) Oral Daily in the morning. Docusate-Senna (Senna Plus 50 mg-8.6 mg oral tablet)2 tab(s) Oral Daily at Bedtime. fluoride-potassium nitrate topical (PreviDent 5000 Enamel Protect 1.1%-5% topical paste)1 reynaldo Topically twice a day. Fluticasone Nasal (Flonase 50 mcg/inh nasal spray)2 spray(s) Nares, Both Daily. Refills: 0. Gabapentin (gabapentin 300 mg oral capsule)1 capsule Oral twice a day. Guaifenesin (guaiFENesin 100 mg/5 mL oral liquid)10 Milliliter Oral every 4 hours as needed for cough. Ibuprofen (ibuprofen 100 mg oral tablet)2 tab(s) Oral every 6 hours as needed for fever. Lorazepam (LORazepam 1 mg oral tablet)1 tab(s) Oral Daily as needed as needed for anxiety. Ondansetron (ondansetron 4 mg oral tablet)1 tab(s) Oral every 6 hours. Hospital Course In the ED, vital signs-temperature of 97.7, heart rate 59, respiratory rate 14, blood pressure 89/65, 98% on room air.??Labs with WBC of 6.6, hemoglobin 12.5, hematocrit 39.6, platelet 330. Basic metabolic profile was normal, LFTs within normal limit. Lactate was elevated to 2.7. Blood cultures were sent.??She received 2 L of IV fluid with improvement of lactate 0.9.??Given a dose of IV ceftriaxone 1 g, metronidazole 500 mg, vancomycin 1 g, midodrine 5 mg.??CT abdomen and pelvis showed area of consolidation in the right lower lobe suggestive of pneumonia/pulmonary embolism, cholelithiasis, acute abnormality of long segments of large bowel suggesting nonspecific colitis involving the right colon and entire sigmoid and rectum.??Chest x-ray showed right basilar opacity. Further assessment with CT angio chest showed no evidence of PE, has right lower lobe pneumonia, small right pleural effusion. Surgery was consulted for G tube evaluation, it was determined that there was no acute intervention and we did not appreciate concern for soft tissue infection around the g tube site. On 02/27/25, G tube button was self removed and subsequently replaced. KUB with contrast via G tube showed appropriate placement without leakage. As we tried to restart tube feeds there was concern of discomfortand overflow around the button with bolus feeds so we changed her g-tube regimen to continuous feeds. She tolerated her feeds without concern thereafter. There was also concern of c. diff infection and oral vancomycin was initiated. We were unable to collect a stool sample for testing given small and infrequent bowel movements, and it was determined that her stools did not suggest c. diff infection. Vancomycin was discontinued. She otherwise was determined to be at baseline with elisa vital signs, labs and physical exam and decision to discharge back to half-way was made. ?? Recommendations: - Given pt not tolerating bolus feeds, will change regimen to continuos as follows: standard 1.2kcal/mL non-fiber containing formula (Osmolite 1.2) at a goal rate of 38mL/hr x 22hrs (to provide 2hr bowel rest). TF regimen will provide 1003kcals (28kcals/kg), 46g PRO (1.2gm/kg), 67% RDIs, 685mL freewater which meets pt's nutritional needs.?? To sum: -??38cc/hr for 22 hours a day with standard 1.2kcal/mL non-fiber containing formula (Osmolite 1.2) - 205cc free water flushes every 8 hours - 30cc free water before and after medication administrations Objective Vital Signs?? Temperature: 97.6 DegF (03/01/25 11:00:00) Temperature Route: Axillary (03/01/25 11:00:00) Pulse Rate:??53 bpm??Low (03/01/25 11:00:00) Respiratory Rate: 16 br/min (03/01/25 11:00:00) Systolic Blood Pressure: 105 mm Hg (03/01/25 11:00:00) Diastolic Blood Pressure: 61 mm Hg (03/01/25 11:00:00) Blood pressure sites: Arm, left (03/01/25 11:00:00) Pulse Pressure: 24 mm Hg (03/01/25 03:00:00) Oxygen Saturation:??93 %??Low (03/01/25 11:00:00) Mode of Delivery (Oxygen): Room air (03/01/25 11:00:00) Early Warning Score: 4 (03/01/25 11:12:45) ? . Physical Exam Sleeping in bed, awakens easily to voice,??no acute distress, contracted, small for age Lungs CTA No murmurs, RRR,??warm and well perfused Abdomen soft, nontender. Binder in place, G tube insertion site non infected appearing R gluteal pressure wound, otherwise no skin lesions [facility] Pending Results No Pending Results Follow-Up Appointments Added Follow Up ?Time Frame ?Comments Po Alfredo KEEN?Within one week Patient Instructions You were evaluated for concern of infection around G tube site. Surgery was consulted, however there was not evidence of infection. There was some difficulties with your tube feeds and your tube feeding regimen was changed to continuous. There was concern about colitis and C. difficile infection, however you did not have clinical features that would suggest this infection and your vitals and lab work continued to be normal. You are being discharged, you should have a follow up with your PCP within 1 week of discharge. We did not make any changes to your medication regimen. Home Health Face to Face ^HomeHealthFTF Results Image ?XR Chest 2 Views Frontal and Lat??02/24/2025 17:22 by Sheba Brown ? RESULT: Chest 2 Views Frontal and Lat ? Chest 2 Views Frontal and Lat Hx of Present Illness: patient from half-way, staff witnessed seizure like activity lasting about 1 minute, no history of seizures; Reason: Other:; Shortness of Breath, Fever; Clinical Question(s): Pneumonia; Order Comment: pt going straight in CT room first @ 02 24 2025 10:48:36 EDT DE 02 24 2025 12:08:19 EDT still has not come over yet for CT. SW COMPARISON: [facility], most recent dated 07/29/2019 FINDINGS: LINES AND TUBES: None. LUNGS AND PLEURA: Best images obtainable as per technologist due to patient condition. Patient unable to raise arms for the lateral view.There is an apparent right basilar opacity which may be secondary to combination of small right pleural effusion and atelectasis versus pneumonia. Slight prominence of the interstitial markings in the lower lungs, likely due to minimal interstitial pulmonary edema. No left pleural effusion. No definite pneumothorax although the lung apices are partially obscured by patient's overlying chin. HEART, MEDIASTINUM AND HODA: Mild cardiomegaly. Normal mediastinal and hilar contour. BONES AND SOFT TISSUES: No acute abnormality. IMPRESSION: Right basilar opacity which may represent a combination of small right pleural effusion and atelectasis versus pneumonia. (Limited lateral view) Minimal interstitial pulmonary edema in the lung bases. Mild cardiomegaly. ?CT Abd/Pelvis W/ IV Contrast Only??02/24/2025 13:15 by Lina Gordillo ? RESULT: CT Abd/Pelvis W/ IV Contrast Only ? CT Abd/Pelvis W/ IV Contrast Only INDICATION / CLINICAL QUESTION: Dementia. Down syndrome. New onset seizure-like activity with no history of seizure. TECHNIQUE: Spiral CT through the abdomen and pelvis with IV contrast formatted in 3 planes. 80 cc of Isovue 300 was administered intravenously. The study was performed without oral contrast. Weight-based protocol using automatic tube modulation wasused to optimize exposure parameters. CTDIvol Body: 9.10 mGy, DLP Body: 440 mGy*cm. COMPARISON: None. FINDINGS: Trimming Press Operator View Findings, Lines and Tubes: None.. Visualized lower chest: There is an area of consolidation in the right lower lobe. Part of it does not enhance. Such failure of enhancement can be explained the a focus of necrotic pneumonia, or infarct such as from a nonvisualized pulmonary embolism. There is no pleural effusion. There is no pericardial effusion. Diaphragm: Unremarkable. Liver: 20 mm cyst posteriorly on the right. The liver is otherwise normal.. Portal venous system: No thrombosis involving the portal, splenic or superior mesenteric veins. Gallbladder: Normal size. Probable noncalcified gallstones. Borderline gallbladder wall thickening.. Bile ducts: No biliary dilatation. Spleen: Normal size. No focal abnormality. Pancreas: Normal. Adrenal Glands: Normal. Kidneys and Ureters: Right Kidney: Normal. Left Kidney: Normal. Bladder: Low volume. No focal abnormality orstone disease.. Stomach, Small bowel and Large Bowel: Stomach: Gastrostomy tube in satisfactory position. No gastric abnormality.. Small Bowel: No small bowel dilatation or gross inflammatory change.Large Bowel: No colonic dilatation or constipation. Abnormal appearance of the right colon with wall thickening and mucosal enhancement. There is a similar finding of wall thickening and mucosal enhancement in the sigmoid colon and rectum. The Appendix is normal. Reproductive/Pelvic organs: No pelvic mass or fluid collection. Peritoneum, retroperitoneum, omentum and mesentery: There is no free air. . There is no ascites. Lymph nodes: No enlarged lymph nodes Aorta and iliac vessels: No evidence of abdominal aortic or iliac artery aneurysm Abdominal wall: No abdominal wall hernia Bones: There is no compression fracture. There is no spondylolysis. Minimal grade 1 spondylolisthesis L3 on L4 andL4-L5.4 Moderate Central spinal stenosis L2-L3 and L3-L4. No fracture or bony pelvis or proximal femurs. IMPRESSION: 1. There is an area of consolidation in the right lower lobe suggestive of pneumonia. Part of this consolidated lung shows no enhancement. This regional nonenhancement could be explained either by an area of chronic pneumonia, or by a pulmonary embolism which is not identified on this CT of the abdomen. . 2. Cholelithiasis. 3. Acute abnormality involving long segments of large bowel, suggestive of some type of nonspecific colitis. This involves the entire right colon and also the entire sigmoid and rectum. ?CT Angio Chest??02/24/2025 17:39 by Beth Guzmán ? RESULT: CT Angio Chest ? CT Angio Chest INDICATION: Hx of Present Illness: patient from half-way, staff witnessed seizure like activity lasting about 1 minute, no history of seizures; Reason: Other:; PE suspected, Intermediate prob, positive D-dimer; Clinical Question(s): Pulmonary Embolism; Order Comment: TECHNIQUE: Spiral CTA of the chest was performed after rapid IV contrast administration without cardiac gating, triggered by an JOELLE on the main pulmonary artery. Images are formatted in multiple planes using 2-D multiplanar and 3-D maximum intensity projection. 45 cc of Omnipaque 350 was administered intravenously. Weight-based protocol using automatic tube modulation was used to optimize exposure parameters. CT DIvol Body: 6.92 mGy, DLP Body: 273 mGy*cm. COMPARISONS: None ANGIOGRAPHIC FINDINGS: No pulmonary embolism to the subsegmental level. Normal caliber pulmonary arteries. No acute aortic abnormality seen on this study performed without cardiac gating. NON-ANGIOGRAPHIC FINDINGS: Trimming Press Operator view findings, lines and tubes: None. Trachea and airways: Patent without evidence of tracheal or endobronchial lesion. Lungs and pleura: There is airspace opacity and volume loss with air bronchograms in the right lower lobe consistent with pneumonia. There is a small right pleural effusion. No pneumothorax. Mediastinum and hoda: No mass or hematoma. No mediastinal or hilar lymphadenopathy. No esophageal abnormality. Normal thyroid. Heart: Heart is at the upper limits of normal for size. No pericardial effusion. Chest wall soft tissues: No acute abnormality. Diaphragm: Intact. Upper abdomen: No significant abnormality. Bones: No acute abnormality. IMPRESSION: No evidence of pulmonary embolism. Right lower lobe pneumonia. Small right pleural effusion. WSN: [id number] Ordering Physician: Esmer Britt ?CT Head/Brain W/O Contrast??02/25/2025 19:47 by Lucero Nunes ? RESULT: CT Head/Brain W/O Contrast ? CT Head/Brain W/O Contrast INDICATION: Reason: Other:; ? Seizure like activity; Clinical Question(s): Anoxic Ischemic Encephalopathy; Order Comment: TECHNIQUE: Noncontrast head CT using axial technique and reconstructed in axial and coronal planes. Iterative reconstruction techniques are used to optimize dose and image quality. CTDIvol Head: 48.30 mGy, DLP Head: 1546 mGy*cm. COMPARISON: CT head wi thout contrast 07/29/2019. FINDINGS: Trimming Press Operator view findings, lines and tubes: None. BRAIN AND EXTRA-AXIAL SPACES: Encephalomalacia in the superior left frontal lobe is unchanged. Similar encephalomalaciain the anteroinferior right frontal lobe. Suspect a small focus of encephalomalacia in the lateral left temporal lobe. No parenchymal hemorrhage, midline shift, or mass effect. No definite acute [place]-white matter differentiation. No acute infarct. Negative insular ribbon sign. Atherosclerotic vascular calcification of the carotid arteries but negative hyperdense vessel sign. Moderate prominence of the ventricles and sulci consistent with parenchymal volume loss, greater than would be expected for age. Moderate low-density white matter changes. No subarachnoid hemorrhage. No subdural or epidural collection. CALVARIUM, SKULL BASE, AND SOFT TISSUES: No fractures or suspicious bony lesions. There are superior protrusion of the dens which partially narrows the foramen magnum. There is contact with the brainstem and proximal cervical cord. There is also widening of the atlantodental in terval. There is only marginally more pronounced than the prior examination. The paranasal sinuses and mastoid air cells are clear. Status-post bilateral lens extraction. The extracranial soft tissues are unremarkable. IMPRESSION: No acute intracranial pathology. 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 Parenchymal volume loss greater than would be expected for age with chronic ischemic changes in the white matter which may be sequelae of microvascular disease. There are superior protrusion of the dens which partially narrows the foramen magnum. There is contact with the brainstem and proximal cervical cord. There is also widening of the atlantodental interval. There is only marginally more pronounced than the prior examination. The appearance is chronic, though incompletelyevaluated on the current examination. If indicated clinically this would be better assessed with MRI of the cervical spine. WSN: [id number] Ordering Physician: Sujata Esqueda ?XR ABD COMP/DECUB/ERECT??02/27/2025 10:12 by Ally Lopez ? RESULT: Abdomen Comp Inc Decub and/or Erect ? Abdomen Comp Inc Decub and/or Erect 2 view INDICATION/CLINICAL QUESTION: Reason: Localization Films; G-tube localization with contrast. Confirm gastric position, rule out leak; Clinical Question(s): Other:; Special Instructions: Please inject 30cc of gastrograffin into g-tube to confirm position. Page [id number] to inject contrast if needed COMPARISON: CT abdomen/pelvis 02/24/2025 FINDINGS: Injected contrast surrounds the gastrostomy tube balloon within the gastric body and partially opacifies gastric folds. No extraluminal contrast extravasation. Normal bowel gas pattern. No evidence of obstruction. No evidence of pneumoperitoneum. No organomegaly, masses or calcifications. No acute bone findings. IMPRESSION: Appropriately positioned gastrostomy tube. No extraluminal contrast extravasation. I have personally reviewed the images and I agree with this report. WSN: [id number] Ordering Physician:Emily Benjamin ?? Signature Line ? Dictated By: Grecia Juarez DO Dictated Date/Time: 02/27/25 10:53 a Reviewed By: Raghu Mendez MD, V Signed By: Raghu Mendez MD, V Signed Date/Time: 02/27/25 10:58 am Transcribed By: QUINCY Transcribed Date/Time: 02/27/25 10:51 am ?? Patient was discussed with attending physician, Dr. Benítez ?? Keshav Fragoso PGY-4 Resident Physician Internal Medicine-Pediatrics Pager # [phone] ?? Please excuse any??typographical or grammatical errors given the use of??dictation software.? 50??minutes spent on discharge * Keshav Fragoso MD: PERFORM Event Display: Discharge/Transfer Note Hospital Authored Date: [id number] No acute events overnight.?? She is nonverbal but otherwise is well-appearing and unchanged from previous on my examination. ?? Last 5 hours she has been afebrile hemodynamically stable. ??She is only had 1 bowel movement. ??Nonew??labs.?? She is in normal urine output. ??Seems to be??tolerating all of her feeds.?? We discussed her free water with nutrition added on 205 cc every 8 hours.?? We are now planning to discharge back to the half-way.?? We clarified??instructions??for her continuous tube feeds. ??We will plan to discharge tomorrow morning, today's note will be??serving as a progress note.?? In addition I spoke with??guardian Erin at length about G- tube issues??and I explained to her that any ongoing concerns with the G-tube needs to be managed by the provider that initially placed it. ??She will??look back in her records to find which provider placed at [place] and call them for immediate follow-up.?? She additionally had a question of whether the type of feeds were causing additional irritation for which this does not seem to be something that??would be expected and we will keep her out of her normal feeds for now. * Evelyn KEEN, Vin: PERFORM Event Display: Discharge/Transfer Note Hospital Authored Date: Attending Attestation:??I have seen and evaluated this patient. ??I have discussed the case and itsmanagement with the resident and agree with the findings and plan as documented in the resident???snote. Patient Care team information Care Team Personnel Name: Devon El RN Position: [facility] RN Member Role: Primary Care Nurse Name: Chery Yepez RN Position: [facility] RN Member Role: Primary Care Nurse Name: Stephanie Wall RN Position: [facility] RN Member Role: Primary Care Nurse Name: Shamika Finch NP Position: [facility] Associate Professional Member Role: Primary Care Nurse Name: Emily Bazzi RN Position: [facility] RN Member Role: Primary Care Nurse Name: Shauna Black Position: [facility] RN Supv Member Role: Primary Care Nurse Name: Suki Cerda RN Position: [facility] Financial Services Counselor Member Role: Primary Care Nurse Name: Fahad Bruner RN Position: [facility] RN Member Role: Primary Care Nurse Name: Ashanti Corrigan RN Position: [facility] ED RN W/OE and Tasks Member Role: Primary Care Nurse Name: Brooklyn Walden RN Position: [facility] AMB Nurse Member Role: Primary Care Nurse Name: Alfredo Walls MD Position: Reference Physician Member Role: PCP Address: [address] [place] [address] Telecom: Name: Benny HORN, Nadege Position: S RN Member Role: Primary Care Nurse Care Team Related Persons Name: ERIN LOPEZ Name: DONTE KEMP Insurance Providers Guarantor name: VALERIA Health Plan Information #: 1 Payer: MEDICARE A INPT 25 Payer Identifier: VALERIA Member Number: [id number] Group Number: [employer]ERIA Subscriber Identifier: [id number] Relationship to Subscriber: self Coverage Type: MEDICARE Coverage Verification Date: NA Telecom: NA Address: Health Plan Information #: 2 Payer: [employer] Payer Identifier: VALERIA Member Number: [id number] Group Number: Subscriber Identifier: [id number] Relationship to Subscriber: self Coverage Type: MEDICAID Coverage Verification Date: NA Telecom: Address:
--- NOTE | ~2025-03-04 | CT_ITS ---
CLINICAL HISTORY: Pleural effusions and aspiration pneumonia picked CT chest without contrast Comparison: CT/REG/SR - CT ABDOMEN PELVIS W IV CON - 03/05/25 01:36 EDT Findings: Multifocal areas of consolidation identified within the lungs. This is most pronounced within the left lower lobe where there is a dense area of consolidation. Trace associated left pleural effusion. Less pronounced areas of consolidation seen within the lingula, right middle lobe, and right lower lobe. Mainstem bronchi are patent. No pneumothorax. Calcification of the mitral valve and coronary arteries. No pathologically enlarged lymph nodes are identified. Generalized 3rd spacing. Moderate to severe degenerative change throughout the lower cervical spine and upper thoracic spine without acute fracture. IMPRESSION: 1. Multifocal areas of consolidation within the lungs, most pronounced within the left lower lobe. This is most characteristic of multifocal pneumonia. 2. Trace left pleural effusion. This document has been electronically signed by: Gilbert Babin MD on 03/05/2025 05:13:41
--- NOTE | ~2025-03-04 | US_ITS ---
CLINICAL HISTORY: LUE edema bruising Venous duplex ultrasound left upper extremity Comparison: None provided Findings: Acute deep venous thrombosis in the median cubital vein in the cephalic vein within the forearm. Remaining deep left upper extremity veins appear patent. The radial and ulnar veins were not visualized. IMPRESSION: 1. Positive for acute deep venous thrombosis in the median cubital vein and cephalic vein of the forearm. This document has been electronically signed by: Kalyan Rawls MD on 03/07/2025 20:00:45
--- NOTE | ~2025-03-04 | CT_ITS ---
CLINICAL HISTORY: g tube site infection? intra abdominal abscess CT abdomen and pelvis with contrast Comparison: CT/SR - CT ABDOMEN PELVIS WITH IV CONTRAST - 04/27/23 18:21 EDT Findings: The study is limited by motion artifact and artifact. There are minimal bilateral pleural effusions. There is a small loculated component of the right pleural effusion. There is consolidation in the left lower lobe. There is atelectasis in the right lung base. There may be some consolidation amongst the atelectasis in the right lower lobe. There is cholelithiasis. There is a small cyst in the right lobe of the liver. Liver is otherwise unremarkable. The pancreas, spleen, adrenal glands, and kidneys are unremarkable. There is a G-tube in the stomach. There is soft tissue induration in the abdominal wall around the subcutaneous portion of the G-tube. There is no abscess. There is no free fluid or free air. There is rectal wall thickening versus under distention. The remainder of the gastrointestinal tract is unremarkable. The aorta is normal in diameter. No enlarged lymph nodes are seen. There are small left periuterine varices. Uterus is atrophic. The bladder is unremarkable. There are degenerative changes in the lumbar spine. There is stable multilevel degenerative grade 1 anterolisthesis. There is no acute fracture or suspicious lytic or sclerotic lesion. IMPRESSION: 1. Study is limited by motion artifact. 2. Consolidation in the left lower lobe consistent with pneumonia or aspiration pneumonitis. Atelectasis and possible mild additional consolidation in the right lower lobe. 3. Minimal bilateral pleural effusions. 4. Soft tissue induration in the abdominal wall around the subcutaneous portion of the G-tube suggestive of cellulitis. There is no abscess. 5. Rectal wall thickening versus under distention. Mild proctitis is possible. This document has been electronically signed by: Sumit Jones MD on 03/05/2025 02:25:49
[2025-03-04 22:16] VITALS: BP 124/81; PULSE 61; O2SAT 94
[2025-03-04 22:43] VITALS: BP 122/64; PULSE 56; RESP 16; TEMP 37.1; O2SAT 96; BMI 21.6
--- NOTE | 2025-03-04 23:57 | ED_ITS ---
HPI - General Adult General Chief complaint: Wound/Laceration Stated complaint: G tube dislodged &bleeding, pain unable to rec med Time Seen by Provider: 03/04/25 22:19 Source: EMS History of Present Illness ED Provider: Imelda Bartholomew PA-C HPI narrative: 64-year-old female with a history of hypothyroid, CVA, Down syndrome, dementia, Jorge L's, with G-tube dependence secondary to dysphagia and recurrent aspiration pneumonia status post PEG on September 01, 2024, presents given concern for infection at G-tube site. Unclear duration of symptoms per longterm report and from EMS. History extremely limited secondary to patient's underlying cognitive impairment Related Data Previous Rx's ?Medication ?Instructions ?Recorded vancomycin 50 mg/mL oral solution 125 mg (2.5 mL) PO Q ID 10 days 09/28/24 #100 mL acetaminophen 650 mg/20.3 mL oral 640 mg (19.9877 mL) feeding tube 12/16/24 solution Q4H PRN fever or pain #1,015 mL bisacodyl 10 mg rectal suppository 10 mg NH DAILY PRN Constipation 12/16/24 #12 ea cetyl and stearate 1 appl topical MOTH #454 gra ms 12/16/24 alcohol-propylen glycol-sls topical cream (Cetaphil topical cream) cholecalciferol (vitamin D3) 25 25 mcg feeding tube DA CONOR #30 tabs 12/16/24 mcg (1,000 unit) tablet fluticasone propionate 50 1 spray intranasal DAILY #16 grams 12/16/24 mcg/actuation nasal spray,suspension gabapentin 100 mg capsule 100 mg feeding tube BEDTIME #30 12/16/24 caps hydrocortisone 2.5 % topical cream 1 appl NH BID PRN h emorrhoids #30 12/16/24 with perineal applicator grams (Proctosol HC) ipratropium 0.5 mg-albuterol 3 mg 3 ml inhalation Q6H PRN Dyspnea 12/16/24 (2.5 mg base)/3 mL nebulization #90 mL soln magnesium hydroxide 400 mg/5 mL 30 ml PO DAILY PRN Con stipation 12/16/24 oral suspension #355 mL nutritional supplements 0.06 1,440 ea feeding tube Q4H #237 mL 12/16/24 gram-1.5 kcal/mL oral liquid (Osmolite 1.5 Drew) oxcarbazepine 150 mg tablet 75 mg (1/2 x 150 mg) feedi ng tube 12/16/24 BID 30 days #30 tabs sodium phosphates 19 gram-7 118 ml NH DAILY PRN Consti pation 12/16/24 gram/118 mL enema (Fleet Enema) #133 mL trazodone 50 mg tablet 50 mg feeding tube BEDTIME P RN 12/16/24 Sleep #30 tabs cefadroxil 500 mg capsule 500 mg PO BID 7 days #14 cap s 01/11/25 vancomycin 125 mg capsule 125 mg PO QID 2 weeks #56 ca ps 01/11/25 clotrimazole 1 % topical cream 1 appl topical BID #30 grams 02/17/25 Lactobacillus acidophilus 10 mg feeding tube DAILY #30 caps 02/23/25 (Acidophilus capsule) aspirin 81 mg chewable tablet 81 mg feeding tube DAILY #90 tabs 02/23/25 calcium 600 mg (as 1 tab PO BID@1600,2000 #60 t abs 02/23/25 carbonate)-vitamin D3 10 mcg (400 unit) tablet levothyroxine 137 mcg tablet 137 mcg feeding tube EDWINA Y@0600 02/23/25 (Synthroid) #30 tabs midodrine 5 mg tablet 10 mg (2 x 5 mg) feeding tub e TID 02/23/25 #90 tabs Allergies Allergy/AdvReac Type Severity Reaction Status Date / Time Sulfa (Sulfonamide Allergy Mild HIVES Verified 03/04/25 22:46 Antibiotics) sulfamethoxazole (From Allergy Mild HIVES Verified 03/04/25 22:46 Bactrim) amoxicillin (Amoxicillin) Allergy Unknown HIVES Verified 03/04/25 22:46 Clindamycin HCl Allergy Unknown rash Verified 03/04/25 22:46 trimethoprim (From Bactrim) Allergy Unknown HIVES Verified 03/04/25 22:46 Review of Systems 2 Review of Systems: Unable to obtain secondary to underlying mental disability Yes all other systems are reviewed and are negative [facility] Past Medical History Attestation statement: The following information was validated with the patient. Medical History (Updated 03/05/25 @ 03:23 by MYRA Dominguez) G-tube site cellulitis Cutaneous candidiasis Medicare annual wellness visit, subsequent Preoperative cardiovascular examination New onset left bundle branch block (LBBB) Lethargy COVID-19 virus infection Mental status alteration Colon cancer screening Atlantoaxial instability Cholelithiasis Mental and behavioral problem Hypercholesterolemia Vitamin D deficiency Closed right ankle fracture Patent foramen ovale Hypothyroid Megaloblastic anemia CVA (cerebral vascular accident) Cataracts, bilateral Down syndrome Jorge L's disease Surgical History Clubfoot Hx of tubal ligation Hx of cataract surgery History of colonoscopy Family History Family History Father No problems noted. Mother Hx of cancer of lung Social History Social History Household Members: Other Household Members Other:: [facility] Housing: Other Housing Other:: [facility] Do you presently have visiting nurse or other home services: Yes Unable to assess alcohol history related to: Unknown Alcohol intake: never Comment: longterm staff at bedside Patient Tobacco Use Status: Never used Tobacco e-Cigarette/Vaping Use: Never Used Second Hand Smoke Exposure: No Advance Directives: Yes Advance Directives on File: Yes Advance Directives Date on File: 10/26/24 service: No Current occupational status: disabled Cognitive needs: Yes (Wheelchair) Hearing needs: No Vision needs: Yes (Glasses) Physical Exam ED Vital Signs: Vital Signs - 24 hr 03/04/25 22:43 Temperature 98.7 F Pulse Rate 56 Respiratory Rate 16 Blood Pressure 122/64 Pulse Oximetry 96 Oxygen Delivery Method Room Air BMI result Body Mass Index 21.6 Const Other: Alert Orientation/consciousness: oriented to person Resp Other: Poor inspiratory effort, patient not cooperating to auscultate lung pelayo Cardio Other: Normal peripheral perfusion GI Other: The tissues surrounding the G-tube site is macerated, indurated and erythematous, appears to be an mixed infection tinea versus cellulitis, with chafed skin Skin Other: warm dry no rash Neuro General: oriented to person, gait normal, no focal motor deficits and CN's II-XI intact bilaterally Psych Other: Somewhat uncooperative while trying to place an IV line Course Reevaluation(s) Reevaluation #1: speaking with the legal guardian Karyna Burton... She was aware that the patient was going to be brought to the emergency room. I questioned the erythema/cellulitis over the abdominal wall, she states it has been there for several days, it is still of unclear duration Time: 23:57 Reevaluation #2: Spoke with Karyna again, I relayed to her that the patient was going to be admitted for aspiration pneumonia, pleural effusions and cellulitis of the abdominal wall. I am adding on a dedicated chest CT secondary to the findings found on the abdominal CT, we will cover with ceftriaxone and doxycycline for the abdominal wall cellulitis, aspiration pneumonia. Time: 04:08 Medications Administered Discontinued Medications Generic Name Dose Route Start Last Admin Trade Name Trayq PRN Reason Stop Dose Admin Ceftriaxone Sodium 2 gm 03/05/25 03:16 03/05/25 03:59 Ceftriaxone Sodium 2 Gm Vial IVPUSH 03/05/25 03:17 2 gm ONCE ONE Administration Clotrimazole 1 appl 03/04/25 23:44 03/05/25 00:11 Clotrimazole 1 % Cream 15 Gm Tube TOPICAL 03/04/25 23:45 Not Given ONCE ONE Protocol Furosemide 20 mg 03/05/25 03:19 03/05/25 03:59 Furosemide 20 Mg/2 Ml Vial IVPUSH 03/05/25 03:20 20 mg ONCE ONE Administration Protocol Doxycycline Hyclate 100 mg/ 250 mls @ 166.67 mls/hr 03/05/25 03:16 03/05/25 04:09 Sodium Chloride IV 03/05/25 04:45 166.67 mls/hr ONCE ONE Administration Iohexol 85 ml 03/05/25 01:46 03/05/25 01:53 Iohexol 350 Mg/Ml 100 Ml Infus..Btl IV 03/05/25 01:47 85 ml ONCE ONE Administration Midazolam HCl 2.5 mg 03/05/25 01:10 03/05/25 01:17 Midazolam Hcl 5 Mg/Ml Vial IVPUSH 03/05/25 01:11 2.5 mg ONCE ONE Administration Midazolam HCl 2.5 mg 03/05/25 03:47 03/05/25 04:09 Midazolam Hcl 5 Mg/Ml Vial IVPUSH 03/05/25 03:48 2.5 mg ONCE ONE Administration Medical Decision Making Medical Decision Making MDM Narrative: 64-year-old female with a history of hypothyroid, CVA, Down syndrome, dementia, Jorge L's, with G-tube dependence secondary to dysphagia and recurrent aspiration pneumonia status post PEG on September 01, 2024, presents given concern for infection at G-tube site. Unclear duration of symptoms per longterm report and from EMS. History extremely limited secondary to patient's underlying cognitive impairment Problem: G-tube dependent, down syndrome, hypothyroidism, dementia, seizure disorder History: Per longterm record and EMS I have considered the following differential diagnoses: G-tube dysfunction, cellulitis, abdominal wall abscess versus intra-abdominal abscess, candidal infection Plan: Based on my exam, it appears the patient has a mixed infection of cellulitis versus candidal infection, the skin is chafed, and macerated in some areas. The G-tube is functioning, I flushed at bedside, this is not an issue. We will be obtaining CT scan abdomen and pelvis to be sure it is functional and to rule out other pathology such as intra-abdominal abscess. In addition to screening labs we will add on blood cultures and a lactate in the event that the patient does require antibiotics. In the meantime, her skin irritation we will be treated with a moisture barrier. I have independently reviewed the following tests: Labs: No overall leukocytosis, left shift noted, not anemic CT abdomen and pelvis:IMPRESSION: 1. Study is limited by motion artifact. 2. Consolidation in the left lower lobe consistent with pneumonia or aspiration pneumonitis. Atelectasis and possible mild additional consolidation in the right lower lobe. 3. Minimal bilateral pleural effusions. 4. Soft tissue induration in the abdominal wall around the subcutaneous portion of the G-tube suggestive of cellulitis. There is no abscess. 5. Rectal wall thickening versus under distention. Mild proctitis is possible. Differential Diagnosis Differential Diagnoses: The differential diagnosis associated with the presentation includes See medical decision-making Admission/Observation Consideration of admission/observation: Escalation of care including admission/observation considered We will be admitted Consult Healthcare Provider Management of the patient was discussed with: Hospitalist Lab Data MDM Lab Attestation statement: I reviewed the patient's lab results. 03/04/25 23:39 03/05/25 00:31 Labs: Lab Results 03/04/25 03/05/25 Range/Units 23:39 00:31 WBC 6.5 (4.8-10.8) X10*3/uL RBC 3.72 L (4.20-5.50) X10*6/uL Hgb 12.6 (12.0-16.0) g/dl Hct 37.5 (37.0-47.0) % MCV 100.8 H (80.0-98.0) fL MCH 33.9 H (27.0-33.0) pg MCHC 33.6 (31.0-35.0) g/dl RDW 17.5 H (11.0-16.0) % Plt Count 193 (160-400) X10*3/uL MPV 10.8 (9.4-12.3) fL Immature Gran % (Auto) 0.5 H (0.0-0.4) % Neut % (Auto) 75.8 H (45-73) % Lymph % (Auto) 14.2 L (20-40) % Faulk % (Auto) 7.2 (2-11) % Eos % (Auto) 1.7 (0-4) % Baso % (Auto) 0.6 (0-2) % Lymph # (Auto) 0.9 L (1.2-4.9) X10*3/uL Faulk # (Auto) 0.5 (0.1-1.2) X10*3/uL Eos # (Auto) 0.1 (0.0-0.4) X10*3/uL Baso # (Auto) 0.0 (0.0-0.2) X10*3/uL Abs Immat Gran (auto) 0.03 (0.00-0.03) X10*3/uL Absolute Neuts (auto) 4.9 (2.0-8.3) x10*3/uL Absolute Nucleated RBC 0.000 (0.0-0.012) X10*3/uL Nucleated RBC % (auto) 0.0 (0.0-0.2) /100WBC Sodium 143 (135-145) mmol/L Potassium 4.0 (3.3-5.1) mmol/L Chloride 103 (96-108) mmol/L Carbon Dioxide 29 (22-29) mmol/L Anion Gap 15 (12-20) BUN 10 (9-16) mg/dL Creatinine 0.64 (0.5-1.4) mg/dL Estim Creat Clear Calc 41.1 Estimated GFR > 60 Random Glucose 96 (60-115) mg/dL Lactic Acid 1.6 (0.5-2.0) mmol/L Calcium 8.7 D (8.4-10.2) mg/dL Magnesium 2.2 (1.6-2.6) mg/dL Total Bilirubin 0.4 (0.0-1.0) mg/dL AST 24 (5-31) U/L ALT 12 (0-31) U/L Alkaline Phosphatase 71 (39-117) U/L Total Protein 6.5 (6.5-8.0) g/dL Albumin 3.2 L (3.5-5.0) g/dL Radiology Impression Discussion of test interpretation with radiology: I have reviewed the radiologist's reading. Independent Historian Clinical information obtained from an independent historian. History obtained from or confirmed by: EMS Critical Care Time Critical Care Time Critical Care Time: Yes Total Critical Care Time: 35 Attestation: I Imelda Bartholomew PA-C have personally performed 35 minutes of critical to care time not including lines and procedures; need for IV antibiotic therapy, aspiration pneumonia, abdominal wall cellulitis, need for admission, reaching out to guardian, etc. Discharge Plan Discharge Clinical Impression: Bilateral pleural effusion, Abdominal wall cellulitis, Aspiration pneumonia Patient Disposition: Admitted As Inpatient
[2025-03-05] VITALS (13 sets, daily range): BP systolic 86–133; BP diastolic 45–86; PULSE 42–80; RESP 12–16; TEMP 35.6–36.2; O2SAT 91–97; BMI 23.0
--- NOTE | 2025-03-05 | ECG_ITS ---
Test Reason : BRADYCARDIA Blood Pressure : */* mmHG Vent. Rate : 52 BPM Atrial Rate : 52 BPM P-R Int : 194 ms QRS Dur : 112 ms QT Int : 528 ms P-R-T Axes : 63 -2 -14 degrees QTcB Int : 491 ms Sinus bradycardia Septal infarct , age undetermined Non-specific intra-ventricular conduction block Abnormal ECG When compared with ECG of 26-Oct-2024 16:59, QRS axis Shifted right ST now depressed in Inferior leads ST no longer elevated in Anterior leads Referred By: Satish Cristina Electronically Signed By: SAMEERA JOYNER MD
--- NOTE | 2025-03-05 00:03 | HO.SKINPHOTO ---
Location: Left abd area Category: Stage: Length: Width: Depth: cm Location: Category: Stage: Length: Width: Depth: cm Location: Category: Stage: Length: Width: Depth: cm Location: Category: Stage: Length: Width: Depth: cm Location: Category: Stage: Length: Width: Depth: cm Location: Category: Stage: Length: Width: Depth: cm
--- NOTE | 2025-03-05 00:05 | PC.NURSE ---
Multiple failed attempts at obtaining IV access. Pt did not tolerated well. Able to obtain 20G L wrist. Wrap. skilled nursing staff at bedside. Red/inflammed area around the g tube site. Tender to touch. Barrier cream applied per JANINA verbal order. Lotrimin cream not available in the pyxis. JANINA made aware. Will place new order in SEP. Barrier cream applied.
[2025-03-05 00:12] LABS: Hematocrit 37.5 % (37.0-47.0); Hemoglobin 12.6 g/dl (12.0-16.0); Imm Gran Abs Auto 0.03 X10*3/uL (0.00-0.03); Imm Gran Pct Auto 0.5 % (0.0-0.4); Lymphocytes Absolute Auto 0.9 X10*3/uL (1.2-4.9); MANUAL DIFF FLAG NO; Mean Corpuscular HGB Conc 33.6 g/dl (31.0-35.0); Mean Corpuscular Hemoglobin 33.9 pg (27.0-33.0); Mean Corpuscular Volume 100.8 fL (80.0-98.0); NRBC Abs Auto 0.000 X10*3/uL (0.0-0.012); NRBC Pct Auto 0.0 /100WBC (0.0-0.2); Platelet Count 193 X10*3/uL (160-400); Red Blood Count 3.72 X10*6/uL (4.20-5.50); White Blood Count 6.5 X10*3/uL (4.8-10.8)
--- OUTSIDE RECORDS SUMMARY | 2025-03-05 00:27 | XMS_ITS | Encounter Summary ---
Author Organization [facility] Address [address] [place] [address] Care Team Providers Care Cad Application Support Specialist Name Role Phone Erickson Melton MD Primary Care Provider [phone] Encounter Details Date Type Department Care Team (Late st Contact Info) Description 09/19/2024 Lab Requisition [facility] - Main Lab [address] [facility] [place] [address] Erickson Melton MD [address] [place] [id number] Anemia, unspecified; Hypothyroidism, unspecified; Other seizures (CMS/HCC [...] mmol/L LAB CHEMISTRY METHOD 09/20/2024 11:27 AM [facility] Potassium 4.0 3.5 - 5.5 mmol/L LAB CHEMISTRY METHOD 09/20/2024 11:27 AM [facility] Chloride 97 96 - 110 mmol/L LAB CHEMISTRY METHOD 09/20/2024 11:27 AM [facility] CO2 36(H) 21 - 32 mmol/L LAB CHEMISTRY METHOD 09/20/2024 11:27 AM [facility] Anion Gap 6 3 - 11 LAB CHEMISTRY METHOD 09/20/2024 11:27 AM [facility] Glucose 121(H) 70 - 100 mg/dL LAB CHEMISTRY METHOD 09/20/2024 11:27 AM [facility] BUN 27(H) 5 - 25 mg/dL LAB CHEMISTRY METHOD 09/20/2024 11:27 AM [facility] Creatinine 0.71 0.50 - 1.10 mg/dL LAB CHEMISTRY METHOD 09/20/2024 11:27 AM [facility] eGFR 95 >=60 mL/min/1. 73m2 LAB CHEMISTRY METHOD 09/20/2024 11:27 AM [facility] Comment:Calculation based on the Chronic Kidney Disease Epidemiology Collaboration (CKD-EPI) equation refit without adjustment for race. BUN/Creatinine Ratio 38.0 LAB CHEMISTRY METHOD 09/20/2024 11:27 AM [facility] Calcium 8.4(L) 8.5 - 10.5 mg/dL LAB CHEMISTRY METHOD 09/20/2024 11:27 AM [facility] Blood Venous blood specimen / Unknown Venipuncture / Unknown 09/20/2024 7:49 AM EDT 09/20/2024 10:04 AM EDT Erickson Melton MD LAB BLOOD ORDERABLES Final Result [facility] [address] [place] [address], * (ABNORMAL) Complete blood count (09/20/2024 7:49 AM EDT) WBC 6.1 4.8 - 10.8 K/mcL LAB HEMETOLOGY METHOD 09/20/2024 10:34 AM EDT [facility] RBC 3.30(L) 3.80 - 4.80 M/mcL LAB HEMETOLOGY METHOD 09/20/2024 10:34 AM EDT [facility] Hemoglobin 11.1(L) 11.5 - 16.0 g/dL LAB HEMETOLOGY METHOD 09/20/2024 10:34 AM EDT [facility] Hematocrit 36.2 35.0 - 47.0 % LAB HEMETOLOGY METHOD 09/20/2024 10:34 AM EDT [facility] MCV 109.7(H) 79.0 - 98.0 FL LAB [facility]OLOGY [facility] MCH 33.6(H) 27.0 - 32.0 pcg LAB HEMETOLOGY METHOD 09/20/2024 10:34 AM EDT [facility] MCHC 30.7(L) 32.0 - 37.0 g/dL LAB HEMETOLOGY METHOD 09/20/2024 10:34 AM EDT [facility] RDW 14.6 11.0 - 15.0 % LAB HEMETOLOGY METHOD [facility]20[facility]24 [facility] Platelets 269 130 - 400 K/mcL LAB HEMETOLOGY METHOD 09/20/2024 10:34 AM EDT [facility] MPV 11.5(H) 7.0 - 11.0 FL LAB HEMETOLOGY METHOD 09/20/2024 10:34 AM EDT [facility] NRBC 0.0 <1.0 % [facility] 09/20/2024 10:34 AM EDT [facility] NRBC Absolute 0.00 <0.10 K/mcL LAB HEMETOLOGY METHOD 09/20/2024 10:34 AM EDT [facility] Blood Venous blood specimen / Unknown Venipuncture / Unknown 09/20/2024 7:49 AM EDT 09/20/2024 10:04 AM EDT Erickson Melton MD LAB BLOOD ORDERABLES Final Result [facility] [address] [place] [address], documented in this encounter Visit Diagnoses Diagnosis Anemia, unspecified Hypothyroidism, unspecified Other seizures (CMS/HCC V24, CMS/HCC V28) documented in this encounter Additional Health Concerns Infection Onset Date Last Indicated Resolved Time C. difficile Comment:Tested (+) at SNF; started on PO ABT 09/29/24 NL 09/29/2024 10/26/2024 11/19/2024 7:04 PM EDT Respiratory Rule-Out 09/30/2024 09/30/2024 025 11:14 PM EDT COVID-19 Rule-Out 09/30/2024 09/30/2024 09/30/2024 11:14 PM EDT Respiratory Rule-Out 10/05/2024 10/05/2024 025 5:43 PM EDT COVID-19 Rule-Out 10/05/2024 10/05/2024 10/05/2024 5:43 PM EDT C. difficile Rule-Out 01/13/2025 01/13/20252024 4:32 AM EDT C. difficile Rule-Out 01/13/2025 01/13/20252024 10:19 AM EDT C. difficile 01/13/2025 01/13/2025 02/06/2025 7:06 PM EDT documented as of this encounter Care Teams Cad Application Support Specialist Relationship Specialty Start Date End Date Erickson Melton MD [address] [place] [address] PCP - General Internal Medicine 09/13/24 documented as of this encounter
--- OUTSIDE RECORDS SUMMARY | 2025-03-05 00:27 | XMS_ITS | Encounter Summary ---
Author Organization [facility] Address [address] [place] [address] Care Team Providers Care Driftman Name Role Phone Erickson Melton MD Primary Care Provider +1- [phone] Encounter Details Date Type Department Care Team (Late st Contact Info) Description 11/28/[address] [facility] - Main Lab 299 [facility] [place] [address] Erickson Melton MD [address] [place] [address] Pneumonia, unspecified organism; Anemia, unspecified Social History [...] Associated Diagnosis Comments COMPLETE BLOOD COUNT Routine 11/29/2024 5:44 AM EDT Pneumonia, unspecified organism Anemia, unspecified BASIC METABOLIC PANEL Routine 11/29/2024 5:44 AM EDT Pneumonia, unspecified organism Anemia, unspecified documented in this encounter Results * Basic metabolic panel (11/29/2024 5:44 AM EDT) Sodium 139 133 - 145 mmol/L LAB CHEMISTRY METHOD 11/29/2024 7:09 AM [facility] Potassium 4.2 3.5 - 5.5 mmol/L LAB CHEMISTRY METHOD 11/29/2024 7:09 AM [facility] Chloride 103 96 - 110 mmol/L LAB CHEMISTRY METHOD 11/29/2024 7:09 AM [facility] CO2 29 21 - 32 mmol/L LAB CHEMISTRY METHOD 11/29/2024 7:09 AM [facility] Anion Gap 7 3 - 11 LAB CHEMISTRY METHOD 11/29/2024 7:09 AM [facility] Glucose 89 70 - 100 mg/dL LAB CHEMISTRY METHOD 11/29/2024 7:09 AM [facility] BUN 23 5 - 25 mg/dL LAB CHEMISTRY METHOD 11/29/2024 7:09 AM [facility] Creatinine 0.64 0.50 - 1.10 mg/dL LAB CHEMISTRY METHOD 11/29/2024 7:09 AM [facility] eGFR 99 >=60 mL/min/1. 73m2 LAB CHEMISTRY METHOD 11/29/2024 7:09 AM [facility] Comment:Calculation based on the Chronic Kidney Disease Epidemiology Collaboration (CKD-EPI) equation refit without adjustment for race. BUN/Creatinine Ratio 35.9 LAB CHEMISTRY METHOD 11/29/2024 7:09 AM [facility] Calcium 9.6 8.5 - 10.5 mg/dL LAB CHEMISTRY METHOD 11/29/2024 7:09 AM [facility] Blood Venous blood specimen / Unknown Venipuncture / Unknown 11/29/2024 5:44 AM EDT 11/29/2024 6:24 AM EDT us Erickson Melton MD LAB BLOOD ORDERABLES Final Result [facility] [address] [place] [address], * (ABNORMAL) Complete blood count (11/29/2024 5:44 AM EDT) WBC 3.9(L) 4.8 - 10.8 K/mcL LAB HEMETOLOGY METHOD 11/29/2024 6:54 AM EDT [facility] RBC 3.90 3.80 - 4.80 M/mcL LAB HEMETOLOGY METHOD 11/29/2024 6:54 AM EDT [facility] Hemoglobin 13.1 11.5 - 16.0 g/dL LAB HEMETOLOGY METHOD 11/29/2024 6:54 AM EDT [facility] Hematocrit 41.5 35.0 - 47.0 % LAB HEMETOLOGY METHOD 11/29/2024 6:54 AM EDT [facility] MCV 106.1(H) 79.0 - 98.0 FL LAB HEMETOLOGY METHOD 11/29/2024 6:54 AM EDT [facility] MCH 33.5(H) 27.0 - 32.0 pcg LAB [facility]OLOG[facility] MCHC 31.6(L) 32.0 - 37.0 g/dL LAB HEMETOLOGY METHOD 11/29/2024 6:54 AM EDT [facility] RDW 15.2(H) 11.0 - 15.0 % LAB HEMETOLOGY METHOD 11/29/2024 6:54 AM EDT [facility] Platelets 200 130 - 400 K/mcL LAB HEMETOLOGY METHOD 11/29/2024 6:54 AM EDT [facility] MPV 10.8 7.0 - 11.0 FL LAB HEMETOLOGY METHOD 11/29/2024 6:54 AM EDT [facility] NRBC 0.0 <1.0 % LAB HEMETOLOGY METHOD 11/29/2024 6:54 AM EDT [facility] NRBC Absolute 0.00 <0.10 K/mcL LAB HEMETOLOGY METHOD 11/29/2024 6:54 AM EDT [facility] Blood Venous blood specimen / Unknown Venipuncture / Unknown 11/29/2024 5:44 AM EDT 11/29/2024 6:27 AM EDT Erickson Melton MD LAB BLOOD ORDERABLES Final Result [facility] [address] [place] [address], documented in this encounter Visit Diagnoses Diagnosis Pneumonia, unspecified organism Anemia, unspecified documented in this encounter Additional Health Concerns Infection Onset Date Last Indicated Resolved Time C. difficile Rule-Out 01/13/2025 01/13/20252024 4:32 AM EDT C. difficile Rule-Out 01/13/2025 01/13/20252024 10:19 AM EDT C. difficile 01/13/2025 01/13/2025 02/06/2025 7:06 PM EDT documented as of this encounter Care Teams Driftman Relationship Specialty Start Date End Date Erickson Melton MD [address] [place] [address] PCP - General Internal Medicine 09/13/24 documented as of this encounter
--- OUTSIDE RECORDS SUMMARY | 2025-03-05 00:27 | XMS_ITS | Encounter Summary ---
Author Organization [facility] Address [address] [place] [address] Care Team Providers Care Director Of Outreach Name Role Phone Erickson Melton MD Primary Care Provider +1- [phone] Encounter Details Date Type Department Care Team (Late st Contact Info) Description 09/26/2024 Lab Requisition [facility] - Main Lab 299 [facility] [place] [address] Erickson Melton MD [address] [place] [address] Anemia, unspecified; Hypothyroidism, unspecified; Other seizures (CMS/HCC [...] mmol/L LAB CHEMISTRY METHOD 09/27/2024 8:30 AM [facility] Potassium 3.9 3.5 - 5.5 mmol/L LAB CHEMISTRY METHOD 09/27/2024 8:30 AM [facility] Chloride 102 96 - 110 mmol/L LAB CHEMISTRY METHOD 09/27/2024 8:30 AM [facility] CO2 37(H) 21 - 32 mmol/L LAB CHEMISTRY METHOD 09/27/2024 8:30 AM [facility] Anion Gap 3 3 - 11 LAB CHEMISTRY METHOD 09/27/2024 8:30 AM [facility] Glucose 108(H) 70 - 100 mg/dL LAB CHEMISTRY METHOD 09/27/2024 8:30 AM [facility] BUN 18 5 - 25 mg/dL LAB CHEMISTRY METHOD 09/27/2024 8:30 AM [facility] Creatinine 0.67 0.50 - 1.10 mg/dL LAB CHEMISTRY METHOD 09/27/2024 8:30 AM [facility] eGFR 98 >=60 mL/min/1. 73m2 LAB CHEMISTRY METHOD 09/27/2024 8:30 AM [facility] Comment:Calculation based on the Chronic Kidney Disease Epidemiology Collaboration (CKD-EPI) equation refit without adjustment for race. BUN/Creatinine Ratio 26.9 LAB CHEMISTRY METHOD 09/27/2024 8:30 AM [facility] Calcium 8.7 8.5 - 10.5 mg/dL LAB CHEMISTRY METHOD 09/27/2024 8:30 AM [facility] Blood Venous blood specimen / Unknown Venipuncture / Unknown 09/27/2024 7:12 AM EDT 09/27/2024 8:01 AM EDT us Erickson Melton MD LAB BLOOD ORDERABLES Final Result [facility] [address] [place] [address], * (ABNORMAL) Complete blood count (09/27/2024 7:12 AM EDT) WBC 7.2 4.8 - 10.8 K/mcL LAB HEMETOLOGY METHOD 09/27/2024 8:09 AM EDT [facility] RBC 3.20(L) 3.80 - 4.80 M/mcL LAB HEMETOLOGY METHOD 09/27/2024 8:09 AM [facility] Hemoglobin 10.9(L) 11.5 - 16.0 g/dL LAB HEMETOLOGY METHOD 09/27/2024 8:09 AM [facility] Hematocrit 35.3 35.0 - 47.0 % LAB HEMETOLOGY METHOD 09/27/2024 8:09 AM [facility] MCV 109.6(H) 79.0 - 98.0 FL LAB HEMETOLOGY METHOD 09/27/2024 8:09 AM [facility] MCH 33.9(H) 27.0 - 32.0 pcg LAB HEMETOLOGY METHOD 09/27/2024 8:09 AM [facility] MCHC 30.9(L) 32.0 - 37.0 g/dL LAB HEMETOLOGY METHOD 09/27/2024 8:09 AM [facility] RDW 16.3(H) 11.0 - 15.0 % LAB HEMETOLOGY METHOD 09/27/2024 8:09 AM [facility] Platelets 268 130 - 400 K/mcL LAB HEMETOLOGY METHOD 09/27/2024 8:09 AM [facility] MPV 10.7 7.0 - 11.0 FL LAB HEMETOLOGY METHOD 09/27/2024 8:09 AM EDT [facility] NRBC 0.0 <1.0 % LAB HEMETOLOGY METHOD 09/27/2024 8:09 AM EDT [facility] NRBC Absolute 0.00 <0.10 K/mcL LAB HEMETOLOGY METHOD 09/27/2024 8:09 AM EDT [facility] Blood Venous blood specimen / Unknown Venipuncture / Unknown 09/27/2024 7:12 AM EDT 09/27/2024 8:01 AM EDT Erickson Melton MD LAB BLOOD ORDERABLES Final Result [facility] [address] [place] [address], documented in this encounter Visit Diagnoses Diagnosis Anemia, unspecified Hypothyroidism, unspecified Other seizures (CMS/HCC V24, CMS/HCC V28) documented in this encounter Additional Health Concerns Infection Onset Date Last Indicated Resolved Time C. difficile Comment:Tested (+) at [facility]; started on PO ABT 09/29/24 NL 09/29/2024 [...] documented as of this encounter Care Teams Director Of Outreach Relationship Specialty Start Date End Date Erickson Melton MD [address] [place] [id number] PCP - General Internal Medicine 09/13/24 documented as of this encounter
--- OUTSIDE RECORDS SUMMARY | 2025-03-05 00:27 | XMS_ITS | Encounter Summary ---
Author Organization [facility] Address [address] [place] [address] Care Team Providers Care Anesthesia Resident Name Role Phone Eirckson Melton MD Primary Care Provider +1- [phone] Encounter Details Date Type Department Care Team (Late st Contact Info) Description 10/17/2024 Lab Requisition [facility] - Main Lab 299 [facility] [place] [address] Erickson Melton MD [address] [place] [address] Pneumonia, unspecified organism; Anemia, unspecified Social History [...] for your loved ones. For example, child health associate or elderly care for an older [...] mmol/L LAB CHEMISTRY METHOD 10/18/2024 11:47 AM [facility] Potassium 4.0 3.5 - 5.5 mmol/L LAB CHEMISTRY METHOD 10/18/2024 11:47 AM [facility] Chloride 99 96 - 110 mmol/L LAB CHEMISTRY METHOD 10/18/2024 11:47 AM [facility] CO2 35(H) 21 - 32 mmol/L LAB CHEMISTRY METHOD 10/18/2024 11:47 AM [facility] Anion Gap 5 3 - 11 LAB CHEMISTRY METHOD 10/18/2024 11:47 AM [facility] Glucose 76 70 - 100 mg/dL LAB CHEMISTRY METHOD 10/18/2024 11:47 AM [facility] BUN 19 5 - 25 mg/dL LAB CHEMISTRY METHOD 10/18/2024 11:47 AM [facility] Creatinine 0.71 0.50 - 1.10 mg/dL LAB CHEMISTRY METHOD 10/18/2024 11:47 AM [facility] eGFR 95 >=60 mL/min/1. 73m2 LAB CHEMISTRY METHOD 10/18/2024 11:47 AM [facility] Comment:Calculation based on the Chronic Kidney Disease Epidemiology Collaboration (CKD-EPI) equation refit without adjustment for race. BUN/Creatinine Ratio 26.8 LAB CHEMISTRY METHOD 10/18/2024 11:47 AM [facility] Calcium 9.4 8.5 - 10.5 mg/dL LAB CHEMISTRY METHOD 10/18/2024 11:47 AM [facility] Blood Venous blood specimen / Unknown Venipuncture / Unknown 10/18/2024 8:38 AM EDT 10/18/2024 10:05 AM EDT us Erickson Melton MD LAB BLOOD ORDERABLES Final Result [facility] [address] [place] [address], * (ABNORMAL) Complete blood count (10/18/2024 8:38 AM EDT) WBC 2.4(L) 4.8 - 10.8 K/mcL LAB HEMETOLOGY METHOD 10/18/2024 11:22 AM EDT [facility] RBC 3.60(L) 3.80 - 4.80 M/mcL LAB HEMETOLOGY METHOD 10/[facility]24 [facility] Hemoglobin 12.3 11.5 - 16.0 g/dL LAB HEMETOLOGY METHOD 10/18/2024 11:22 AM [facility] Hematocrit 39.0 35.0 - 47.0 % LAB HEMETOLOGY METHOD 10/18/2024 11[facility] MCV 107.7(H) 79.0 - 98.0 FL LAB HEMETOLOGY METHOD 10/18/2024 11:22 AM [facility] MCH 34.0(H) 27.0 - 32.0 pcg LAB HEMETOLOGY METHOD 10/18/2024 11:22 AM [facility] MCHC 31.5(L) 32.0 - 37.0 g/dL LAB HEMETOLOGY METHOD 10/18/2024 11:22 AM [facility] RDW 17.2(H) 11.0 - 15.0 % LAB HEMETOLOGY METHOD 10/18/2024 11:22 AM [facility] Platelets 238 130 - 400 K/mcL LAB HEMETOLOGY METHOD 10/18/2024 11:22 AM [facility] MPV 10.8 7.0 - 11.0 [...] Final Result [facility] [address] [place] [address], documented in this encounter Visit Diagnoses Diagnosis [...] documented as of this encounter Care Teams Anesthesia Resident Relationship Specialty Start Date End Date Erickson Melton MD [address] [place] [id number] PCP - General Internal Medicine 09/13/24 documented as of this encounter
--- OUTSIDE RECORDS SUMMARY | 2025-03-05 00:27 | XMS_ITS | Encounter Summary ---
Author Organization [facility] Address [address] [place] [address] Care Team Providers Care Development Mgr Name Role Phone Erickson Melton MD Primary Care Provider +1- [phone] Encounter Details Date Type Department Care Team (Late st Contact Info) Description 10/26/2024 Lab Requisition [facility] - Main Lab 299 [facility] [place] [address] Erickson Melton MD [address] [place] [address] Diarrhea, unspecified Social History Tobacco Use Types [...] your loved ones. For example, child protective services specialist or elderly care for an older adult? [...] Positive( A) Negative 10/26/2024 4:33 PM EDT [facility] C difficile Toxins A+B, EIA Positive( AA) Negative 10/26/2024 4:33 PM EDT [facility] Comment: CRITICAL RESULT POSITIVE FOR TOXIN PRODUCING CLOSTRIDIOIDES DIFFICILE, NO ADDITIONAL TESTING IS NECESSARY. REPEAT SAMPLES SHOULD NOT BE SUBMITTED FOR TEST OF CURE. Stool Rectum structure / Unknown 10/26/2024 10/26/2024 3:36 PM EDT Erickson Melton MD LAB MICROBIOLOGY - GENERAL ORDERABLES Final Result [facility] [address] [place] [address], documented in this encounter Visit Diagnoses Diagnosis [...] documented as of this encounter Care Teams Development Mgr Relationship Specialty Start Date End Date Erickson Melton MD [address] [place] [address] PCP - General Internal Medicine 09/13/24 documented as of this encounter
--- OUTSIDE RECORDS SUMMARY | 2025-03-05 00:27 | XMS_ITS | Encounter Summary ---
Author Organization [facility] Address [address] [place] [address] Care Team Providers Care Commercial Title Examiner Name Role Phone Erickson Melton MD Primary Care Provider +1- [phone] Encounter Details Date Type Department Care Team (Late st Contact Info) Description 10/27/[address] [facility] - Main Lab 299 [facility] [place] [address] Erickson Melton MD [address] [place] [address] Enterocolitis due to Clostridium difficile, not specified [...] care for your loved ones. For example, registered nurse maternal child or elderly care for an older adult? [...] mmol/L LAB CHEMISTRY METHOD 10/27/2024 9:33 AM [facility] Potassium 4.3 3.5 - 5.5 mmol/L LAB CHEMISTRY METHOD 10/27/2024 9:33 AM [facility] Comment:Hemolysis present Chloride 105 96 - 110 mmol/L LAB CHEMISTRY METHOD 10/27/2024 9:33 AM [facility] CO2 29 21 - 32 mmol/L LAB CHEMISTRY METHOD 10/27/2024 9:33 AM [facility] Anion Gap 6 3 - 11 LAB CHEMISTRY METHOD 10/27/2024 9:33 AM [facility] Glucose 82 70 - 100 mg/dL LAB CHEMISTRY METHOD 10/27/2024 9:33 AM [facility] BUN 33(H) 5 - 25 mg/dL LAB CHEMISTRY METHOD 10/27/2024 9:33 AM [facility] Creatinine 0.68 0.50 - 1.10 mg/dL LAB CHEMISTRY METHOD 10/27/2024 9:33 AM [facility] eGFR 97 >=60 mL/min/1. 73m2 LAB CHEMISTRY METHOD 10/27/2024 9:33 AM [facility] Comment:Calculation based on the Chronic Kidney Disease Epidemiology Collaboration (CKD-EPI) equation refit without adjustment for race. BUN/Creatinine Ratio 48.5 LAB CHEMISTRY METHOD 10/27/2024 9:33 AM [facility] Calcium 8.7 8.5 - 10.5 mg/dL LAB CHEMISTRY METHOD 10/27/2024 9:33 AM [facility] Blood Venous blood specimen / Unknown Venipuncture / Unknown 10/27/2024 6:46 AM EDT 10/27/2024 7:59 AM EDT us Erickson Melton MD LAB BLOOD ORDERABLES Final Result [facility] [address] [place] [address], * (ABNORMAL) Complete blood count (10/27/2024 6:46 AM EDT) WBC 10.5 4.8 - 10.8 K/mcL LAB HEMETOLOGY METHOD 10/27/2024 8:39 AM EDT [facility] RBC 3.80 3.80 - 4.80 M/mcL LAB HEMETOLOGY METHOD 10/27/2024 8:39 AM [facility] Hemoglobin 13.0 11.5 - 16.0 g/dL LAB HEMETOLOGY METHOD 10/27/2024 8:39 AM [facility] Hematocrit 42.2 35.0 - 47.0 % LAB HEMETOLOGY METHOD 10/27/2024 8:39 AM [facility] MCV 111.9(H) 79.0 - 98.0 FL LAB HEMETOLOGY METHOD 10/27/2024 8:39 AM [facility] MCH 34.5(H) 27.0 - 32.0 pcg LAB HEMETOLOGY METHOD 10/27/2024 8:39 AM [facility] MCHC 30.8(L) 32.0 - 37.0 g/dL LAB HEMETOLOGY METHOD 10/27/2024 8:39 AM [facility] RDW 17.3(H) 11.0 - 15.0 % LAB HEMETOLOGY METHOD 10/27/2024 8:39 AM [facility] Platelets 181 130 - 400 K/mcL LAB HEMETOLOGY METHOD 10/27/2024 8:39 AM [facility] MPV 10.6 7.0 - 11.0 FL LAB HEMETOLOGY METHOD 10/27/2024 8:39 AM EDT [facility] NRBC 0.0 <1.0 % LAB HEMETOLOGY METHOD 10/27/2024 8:39 AM EDT [facility] NRBC Absolute 0.00 <0.10 K/mcL LAB HEMETOLOGY METHOD 10/27/2024 8:39 AM EDT [facility] Blood Venous blood specimen / Unknown Venipuncture / Unknown 10/27/2024 6:46 AM EDT 10/27/2024 7:59 AM EDT Erickson Melton MD LAB BLOOD ORDERABLES Final Result [facility] [address] [place] [address], documented in this encounter Visit Diagnoses Diagnosis [...] documented as of this encounter Care Teams Commercial Title Examiner Relationship Specialty Start Date End Date Erickson Melton MD [address] [place] [id number] PCP - General Internal Medicine 09/13/24 documented as of this encounter
--- OUTSIDE RECORDS SUMMARY | 2025-03-05 00:27 | XMS_ITS | Patient Health Record ---
Author Organization [facility] Address [address] [facility] [address] [place] [address] Care Team Providers Care Petroleum Analyst Name Role Phone Geroniom KEEN, Erickson Primary Care Provider Keisha Faye Unavailable [phone] Allergies Allergen (clinical drug ingredient) Drug/Non Drug Allergy documented on EMR Reaction Allergy Type Onset Date Status Information temporarily unavailable Amoxicillin Unknown Drug Allergy Active Information temporarily unavailable Clindamycin Unknown Drug Allergy Active Information temporarily unavailable Sulfa Antibiotics Unknown Drug Allergy Active Information temporarily unavailable Sulfamethoxazole Unknown Drug Allergy Active Information temporarily unavailable Trimethoprim Unknown Drug Allergy Active Reason For Referral No Information Medications Medication [...] Problem Status W/U Status Risk Notes Problem Information temporarily unavailable Other megaloblastic anemias, 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 Problem Information temporarily unavailable Hypothyroidism, unspecified (E03.9) Active confirmed Problem Information temporarily unavailable Autoimmune thyroiditis (E06.3) Active confirmed Problem Information temporarily unavailable Unspecified protein-calorie malnutrition (E46) Active confirmed Problem Information temporarily unavailable Vitamin D deficiency, unspecified (E55.9) Active confirmed Problem Information temporarily unavailable Hyperlipidemia, unspecified (E78.5) Active confirmed Problem Information temporarily unavailable Encephalopathy, unspecified (G93.40) Active confirmed Problem Information temporarily unavailable Unspecified 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) Active confirmed Problem Information temporarily unavailable Pressure ulcer of sacral region, stage 1 (L89.151) Active confirmed Problem Information temporarily unavailable Acquired clubfoot, 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) Active confirmed Problem Information temporarily unavailable Down syndrome, unspecified (Q90.9) Active confirmed Problem Information temporarily unavailable Dysphagia, oropharyngeal phase (R13.12) Active confirmed Problem Information temporarily unavailable Difficulty in walking, not elsewhere classified (R26.2) Active confirmed Problem Information temporarily unavailable 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 confirmed Problem Information temporarily unavailable Unspecified dementia, unspecified severity, without behavioral disturbance, psychotic disturbance, mood disturbance, and anxiety (F03.90) Active confirmed Vital Signs Weight 86.2 lbs 09/30/2024 Weight reflecte d from 09/30/24 on [facility] Encounters Encounter Location Date Provider Diagnosis [address] [place] [address] 09/30/2024 Keisha Segura Pressure ulcer of sacral [...] Coverage End Date Medicare [address] [place], [place] [id number] Whitney Lucero Self - patient is the insured [facility] (Medicaid) [address] [place], [place] [id number] Whitney Lucero Self - patient is the [...]
--- OUTSIDE RECORDS SUMMARY | 2025-03-05 00:27 | XMS_ITS | Encounter Summary ---
Author Organization [facility] Address [address] [place] [address] Care Team Providers Care Mold Yard Crane Operator Name Role Phone Erickson Melton MD Primary Care Provider +1- [phone] Encounter Details Date Type Department Care Team (Late st Contact Info) Description 12/12/2024 Lab Requisition [facility] - Main Lab [address] [facility] [place] [address] Erickson Melton MD [address] [place] [address] Pneumonia, unspecified organism; Anemia, unspecified Social History [...] your loved ones. For example, early childhood education specialist or elderly care for an older [...] as of this encounter Visit Diagnoses Diagnosis Pneumonia, unspecified organism Anemia, unspecified documented in this encounter Additional Health Concerns Infection Onset Date Last Indicated Resolved Time C. difficile Rule-Out 01/13/2025 01/13/20252024 4:32 AM EDT C. difficile Rule-Out 01/13/2025 01/13/20252024 10:19 AM EDT C. difficile 01/13/2025 01/13/202502/06/2025 7:06 PM EDT documented as of this encounter Care Teams Mold Yard Crane Operator Relationship Specialty Start Date End Date Erickson Melton MD [address] [place] [address] PCP - General Internal Medicine 09/13/24 documented as of this encounter
--- OUTSIDE RECORDS SUMMARY | 2025-03-05 00:27 | XMS_ITS | Encounter Summary ---
Author Organization [facility] Address [address] [place] [address] Care Team Providers Care Natural Science Manager Name Role Phone Erickson Melton MD Primary Care Provider +1- [phone] Encounter Details Date Type Department Care Team (Late st Contact Info) Description 11/14/2024 Lab Requisition [facility] - Main Lab [address] [facility] [place] [address] Erickson Melton MD [address] [place] [address] Pneumonia, unspecified organism; Anemia, unspecified Social History [...] your loved ones. For example, child care team lead or elderly care for an older adult? [...] Associated Diagnosis Comments COMPLETE BLOOD COUNT Routine 11/15/2024 8:04 AM EDT Pneumonia, unspecified organism Anemia, unspecified BASIC METABOLIC PANEL Routine 11/15/2024 8:04 AM EDT Pneumonia, unspecified organism Anemia, unspecified documented in this encounter Results * (ABNORMAL) Basic metabolic panel (11/15/2024 8:04 AM EDT) Sodium 138 133 - 145 mmol/L LAB CHEMISTRY METHOD 11/15/2024 11:23 AM [facility] Potassium 4.3 3.5 - 5.5 mmol/L LAB CHEMISTRY METHOD 11/15/2024 11:23 AM [facility] Chloride 103 96 - 110 mmol/L LAB CHEMISTRY METHOD 11/15/2024 11:23 AM [facility] CO2 30 21 - 32 mmol/L LAB CHEMISTRY METHOD 11/15/2024 11:23 AM [facility] Anion Gap 5 3 - 11 LAB CHEMISTRY METHOD 11/15/2024 11:23 AM [facility] Glucose 68(L) 70 - 100 mg/dL LAB CHEMISTRY METHOD 11/15/2024 11:23 AM [facility] BUN 26(H) 5 - 25 mg/dL LAB CHEMISTRY METHOD 11/15/2024 11:23 AM [facility] Creatinine 0.66 0.50 - 1.10 mg/dL LAB CHEMISTRY METHOD 11/15/2024 11:23 AM [facility] eGFR 98 >=60 mL/min/1. 73m2 LAB CHEMISTRY METHOD 11/15/2024 11:23 AM [facility] Comment:Calculation based on the Chronic Kidney Disease Epidemiology Collaboration (CKD-EPI) equation refit without adjustment for race. BUN/Creatinine Ratio 39.4 LAB CHEMISTRY METHOD 11/15/2024 11:23 AM [facility] Calcium 8.8 8.5 - 10.5 mg/dL LAB CHEMISTRY METHOD 11/15/2024 11:23 AM [facility] Blood Venous blood specimen / Unknown Venipuncture / Unknown 11/15/2024 8:04 AM EDT 11/15/2024 10:29 AM EDT Erickson Melton MD LAB BLOOD ORDERABLES Final Result [facility] [address] [place] [address], * (ABNORMAL) Complete blood count (11/15/2024 8:04 AM EDT) WBC 5.4 4.8 - 10.8 K/mcL LAB HEMETOLOGY METHOD 11/15/2024 11:00 AM EDT [facility] RBC 3.80 3.80 - 4.80 M/mcL LAB HEMETOLOGY METHOD 11/15/2024 11:00 AM [facility] Hemoglobin 13.0 11.5 - 16.0 g/dL LAB HEMETOLOGY METHOD 11/15/2024 11:00 AM [facility] Hematocrit 40.9 35.0 - 47.0 % LAB HEMETOLOGY METHOD 11/15/2024 11:00 AM [facility] MCV 107.3(H) 79.0 - 98.0 FL LAB HEMETOLOGY METHOD 11/15/2024 11:00 AM [facility] MCH 34.1(H) 27.0 - 32.0 pcg LAB HEMETOLOGY METHOD 11/15/2024 11:00 AM [facility] MCHC 31.8(L) 32.0 - 37.0 g/dL LAB HEMETOLOGY METHOD 11/15/2024 11:00 AM [facility] RDW 16.0(H) 11.0 - 15.0 % LAB HEMETOLOGY METHOD 11/15/2024 11:00 AM [facility] Platelets 225 130 - 400 K/mcL LAB HEMETOLOGY METHOD 11/15/2024 11:00 AM [facility] MPV 11.1(H) 7.0 - 11.0 FL LAB HEMETOLOGY METHOD 11/15/2024 11:00 AM EDT [facility] NRBC 0.0 <1.0 % LAB HEMETOLOGY METHOD 11/15/2024 11:00 AM EDT [facility] NRBC Absolute 0.00 <0.10 K/mcL LAB HEMETOLOGY METHOD 11/15/2024 11:00 AM EDT [facility] Blood Venous blood specimen / Unknown Venipuncture / Unknown 11/15/2024 8:04 AM EDT 11/15/2024 10:29 AM EDT Erickson Melton MD LAB BLOOD ORDERABLES Final Result [facility] [address] [place] [address], documented in this encounter Visit Diagnoses Diagnosis [...] documented as of this encounter Care Teams Natural Science Manager Relationship Specialty Start Date End Date Erickson Melton MD [address] [place] [id number] PCP - General Internal Medicine 09/13/24 documented as of this encounter
--- OUTSIDE RECORDS SUMMARY | 2025-03-05 00:27 | XMS_ITS | Encounter Summary ---
Author Organization [facility] Address [address] [place] [address] Care Team Providers Care Truck Engine Assembler Name Role Phone Erickson Melton MD Primary Care Provider +1- [phone] Encounter Details Date Type Department Care Team (Late st Contact Info) Description 11/07/[address] [facility] - Main Lab [address] [facility] [place] [address] Erickson Melton MD [address] [place] [address] Anemia, unspecified; Pneumonia, unspecified organism Social History Tobacco Use Types Packs/Day Years [...] for your loved ones. For example, children's literature professor or elderly care for an older adult? [...] Associated Diagnosis Comments COMPLETE BLOOD COUNT Routine 11/08/2024 7:23 AM EDT Anemia, unspecified Pneumonia, unspecified organism BASIC METABOLIC PANEL Routine 11/08/2024 7:23 AM EDT Anemia, unspecified Pneumonia, unspecified organism documented in this encounter Results * (ABNORMAL) Basic metabolic panel (11/08/2024 7:23 AM EDT) Sodium 142 133 - 145 mmol/L LAB CHEMISTRY METHOD 11/08/2024 1:23 PM [facility] Potassium 4.7 3.5 - 5.5 mmol/L LAB CHEMISTRY METHOD 11/08/2024 1:23 PM [facility] Comment:Hemolysis present Chloride 104 96 - 110 mmol/L LAB CHEMISTRY METHOD 11/08/2024 1:23 PM [facility] CO2 30 21 - 32 mmol/L LAB CHEMISTRY METHOD 11/08/2024 1:23 PM [facility] Anion Gap 8 3 - 11 LAB CHEMISTRY METHOD 11/08/2024 1:23 PM [facility] Glucose 80 70 - 100 mg/dL LAB CHEMISTRY METHOD 11/08/2024 1:23 PM [facility] BUN 25 5 - 25 mg/dL LAB CHEMISTRY METHOD 11/08/2024 1:23 PM [facility] Creatinine 0.74 0.50 - 1.10 mg/dL LAB CHEMISTRY METHOD 11/08/2024 1:23 PM [facility] eGFR 90 >=60 mL/min/1. 73m2 LAB CHEMISTRY METHOD 11/08/2024 1:23 PM [facility] Comment:Calculation based on the Chronic Kidney Disease Epidemiology Collaboration (CKD-EPI) equation refit without adjustment for race. BUN/Creatinine Ratio 33.8 LAB CHEMISTRY METHOD 11/08/2024 1:23 PM [facility] Calcium 8.3(L) 8.5 - 10.5 mg/dL LAB CHEMISTRY METHOD 11/08/2024 1:23 PM [facility] Blood Venous blood specimen / Unknown Venipuncture / Unknown 11/08/2024 7:23 AM EDT 11/08/2024 10:27 AM EDT Erickson Melton MD LAB BLOOD ORDERABLES Final Result [facility] [address] [place] [address], * (ABNORMAL) Complete blood count (11/08/2024 7:23 AM EDT) WBC 4.7(L) 4.8 - 10.8 K/mcL LAB HEMETOLOGY METHOD 11/08/2024 11:11 AM EDT [facility] RBC 3.90 3.80 - 4.80 M/mcL LAB HEMETOLOGY METHOD 11/[facility] Hemoglobin 13.1 11.5 - 16.0 g/dL LAB HEMETOLOGY METHOD 11/08/2024 11:11 AM [facility] Hematocrit 41.6 35.0 - 47.0 % LAB HEMETOLOGY METHOD 11/08/2024 11:[facility] MCV 107.5(H) 79.0 - 98.0 FL LAB HEMETOLOGY METHOD 11/08/2024 11:11 AM [facility] MCH 33.9(H) 27.0 - 32.0 pcg LAB HEMETOLOGY METHOD 11/08/2024 11:11 AM [facility] MCHC 31.5(L) 32.0 - 37.0 g/dL LAB HEMETOLOGY METHOD 11/08/2024 11:11 AM [facility] RDW 16.2(H) 11.0 - 15.0 % LAB HEMETOLOGY METHOD 11/08/2024 11:11 AM [facility] Platelets 225 130 - 400 K/mcL LAB HEMETOLOGY METHOD 11/08/2024 11:11 AM [facility] MPV 11.2(H) 7.0 - 11.0 FL LAB HEMETOLOGY METHOD 11/08/2024 11:11 AM EDT [facility] NRBC 0.0 <1.0 % LAB HEMETOLOGY METHOD 11/08/2024 11:11 AM EDT [facility] NRBC Absolute 0.00 <0.10 K/mcL LAB HEMETOLOGY METHOD 11/08/2024 11:11 AM EDT [facility] Blood Venous blood specimen / Unknown Venipuncture / Unknown 11/08/2024 7:23 AM EDT 11/08/2024 10:25 AM EDT us Erickson Melton MD LAB BLOOD ORDERABLES Final Result [facility] [address] [place] [address], documented in this encounter Visit Diagnoses Diagnosis Anemia, unspecified Pneumonia, unspecified organism documented in this encounter Additional Health Concerns Infection Onset Date Last Indicated Resolved Time C. difficile Comment:Tested (+) at SNF; started on PO ABT 09/29/24 NL 09/29/2024 10/26/2024 11/19/2024 7:04 PM EDT C. difficile Rule-Out 01/13/2025 01/13/20252024 4:32 AM EDT C. difficile Rule-Out 01/13/2025 01/13/20252024 10:19 AM EDT C. difficile 01/13/2025 01/13/2025 02/06/2025 7:06 PM EDT documented as of this encounter Care Teams Truck Engine Assembler Relationship Specialty Start Date End Date Erickson Melton MD [address] [place] [id number] PCP - General Internal Medicine 09/13/24 documented as of this encounter
--- OUTSIDE RECORDS SUMMARY | 2025-03-05 00:27 | XMS_ITS | Encounter Summary ---
Author Organization [facility] [address] Address [address] [place] [address] Care Team Providers Care Licensing Court Magistrate Name Role Phone Erickson Melton MD Primary Care Provider +1- [phone] Encounter Details Date Type Department Care Team (Late st Contact Info) Description 12/05/2024 Lab Requisition [facility] - Main Lab [address] [facility] [place] [address] Erickson Melton MD [address] [place] [address] Pneumonia, unspecified organism; Anemia, unspecified Social History [...] for your loved ones. For example, children's zoo caretaker or elderly care for an older adult? [...] Associated Diagnosis Comments COMPLETE BLOOD COUNT Routine 12/06/2024 7:48 AM EDT Pneumonia, unspecified organism Anemia, unspecified BASIC METABOLIC PANEL Routine 12/06/2024 7:48 AM EDT Pneumonia, unspecified organism Anemia, unspecified documented in this encounter Results * (ABNORMAL) Basic metabolic panel (12/06/2024 7:48 AM EDT) Sodium 142 133 - 145 mmol/L LAB CHEMISTRY METHOD 12/06/2024 11:47 AM [facility] Potassium 4.1 3.5 - 5.5 mmol/L LAB CHEMISTRY METHOD 12/06/2024 11:47 AM [facility] Comment:Hemolysis present Chloride 106 96 - 110 mmol/L LAB CHEMISTRY METHOD 12/06/2024 11:47 AM [facility] CO2 26 21 - 32 mmol/L LAB CHEMISTRY METHOD 12/06/2024 11:47 AM [facility] Anion Gap 10 3 - 11 LAB CHEMISTRY METHOD 12/06/2024 11:47 AM [facility] Glucose 73 70 - 100 mg/dL LAB CHEMISTRY METHOD 12/06/2024 11:47 AM [facility] BUN 24 5 - 25 mg/dL LAB CHEMISTRY METHOD 12/06/2024 11:47 AM [facility] Creatinine 0.65 0.50 - 1.10 mg/dL LAB CHEMISTRY METHOD 12/06/2024 11:47 AM [facility] eGFR 98 >=60 mL/min/1. 73m2 LAB CHEMISTRY METHOD 12/06/2024 11:47 AM [facility] Comment:Calculation based on the Chronic Kidney Disease Epidemiology Collaboration (CKD-EPI) equation refit without adjustment for race. BUN/Creatinine Ratio 36.9 LAB CHEMISTRY METHOD 12/06/2024 11:47 AM [facility] Calcium 8.4(L) 8.5 - 10.5 mg/dL LAB CHEMISTRY METHOD 12/06/2024 11:47 AM [facility] Blood Venous blood specimen / Unknown Venipuncture / Unknown 12/06/2024 7:48 AM EDT 12/06/2024 9:05 AM EDT Erickson Melton MD LAB BLOOD ORDERABLES Final Result [facility] [address] [place] [address], * (ABNORMAL) Complete blood count (12/06/2024 7:48 AM EDT) WBC 3.8(L) 4.8 - 10.8 K/mcL LAB HEMETOLOGY METHOD 12/06/2024 11:40 AM EDT [facility] RBC 3.80 3.80 - 4.80 M/mcL LAB HEMETOLOGY METHOD 12/06/2024 11:40 AM EDT [facility] Hemoglobin 12.7 11.5 - 16.0 g/dL LAB HEMETOLOGY METHOD 12/06/2024 11:[facility] Hematocrit 40.7 35.0 - 47.0 % LAB HEMETOLOGY METHOD 12/06/2024 11:40 AM EDT [facility] MCV 108.5(H) 79.0 - 98.0 FL LAB HEMETOLOGY METHOD 12/06/2024 11:40 AM EDT [facility] MCH 33.9(H) 27.0 - 32.0 pcg LAB HEMETOLOGY METHOD 12/06/2024 11:40 AM EDT [facility] MCHC 31.2(L) 32.0 - 37.0 g/dL LAB HEMETOLOGY METHOD 12/06/2024 11:40 AM EDT [facility] RDW 15.0 11.0 - 15.0 % LAB HEMETOLOGY METHOD 12/06/2024 11:40 AM EDT [facility] Platelets 160 130 - 400 K/mcL LAB HEMETOLOGY METHOD 12/06/2024 11:40 [facility] MPV 11.2(H) 7.0 - 11.0 FL LAB HEMETOLOGY METHOD 12/06/2024 11:40 AM EDT [facility] NRBC 0.0 <1.0 % LAB HEMETOLOGY METHOD 12/06/2024 11:40 AM EDT [facility] NRBC Absolute 0.00 <0.10 K/mcL LAB HEMETOLOGY METHOD 12/06/2024 11:40 AM EDT [facility] Blood Venous blood specimen / Unknown Venipuncture / Unknown 12/06/2024 7:48 AM EDT 12/06/2024 9:05 AM EDT Erickson Melton MD LAB BLOOD ORDERABLES Final Result [facility] [address] [place] [address], documented in this encounter Visit Diagnoses Diagnosis Pneumonia, unspecified organism Anemia, unspecified documented in this encounter Additional Health Concerns Infection Onset Date Last Indicated Resolved Time C. difficile Rule-Out 01/13/2025 01/13/20252024 4:32 AM EDT C. difficile Rule-Out 01/13/2025 01/13/20252024 10:19 AM EDT C. difficile 01/13/2025 01/13/2025 02/06/2025 7:06 PM EDT documented as of this encounter Care Teams Licensing Court Magistrate Relationship Specialty Start Date End Date Erickson Melton MD [address] [place] [address] PCP - General Internal Medicine 09/13/24 documented as of this encounter
--- OUTSIDE RECORDS SUMMARY | 2025-03-05 00:27 | XMS_ITS | Clinical Summary ---
Author Organization [address] Address [address] [place] [id number] Phone Care Team Providers Care Manager Of Regulatory Affairs Name Role Phone Erickson Melton MD Primary Care Provider [phone] Allergies Active Allergy Reactions Criticality Noted Date Comments Amoxicillin Unknown 09/30/2024 Patient has tolerated cefdinir in [address] [facility] and also ceftriaxone at [facility] 2024 Clindamycin Unknown 09/30/2024 Sulfa (Sulfonamide Antibiotics) 09/30/2024 Sulfamethoxazole Unknown 09/30/2024 Trimethoprim Unknown 09/30/2024 Medications Synthroid 137 mcg tablet Take 1 tablet (137 mcg total) via g-tube 1 (one) time each day before breakfast. 8 Active traZODone (DESYREL) 50 mg tablet Take 1 tablet (50 mg total) by mouth 2 (two) times a day if needed (AGITATION). 3 Active aspirin 81 mg chewable tablet 1 tablet (81 mg total) 1 (one) time each day. G-TUBE Active OXcarbazepine (TRILEPTAL) 150 mg tablet Take 0.5 tablets (75 mg total) via g-tube 2 (two) times a day. Active acetaminophen 160 mg/5 mL elixir Take 640 mg via g-tube every 6 (six) hours if needed (fever). Active Lactobacillus acidophilus (Acidophilus) capsule Take 1 capsule by mouth 1 (one) time each day. Active fluticasone propionate (FLONASE) 50 mcg/actuation nasal spray Administer 1 spray into each nostril 1 (one) time each day. 0 Active midodrine (PROAMATINE) 10 mg tablet Take 1 tablet (10 mg total) via g-tube 3 (three) times a day before meals. 5 Active nutritional supplements (Osmolite 1.5 Drew) 0.06 gram-1.5 kcal/mL liquid Take 1.5 g by mouth every 4 (four) hours. Active ipratropium-alb uteroL (DUONEB) 0.5-2.5 mg/3 mL nebulizer solution Take 3 mL by nebulization every 6 (six) hours if needed for shortness of breath. 5 Active hydrocortisone 2.5 % cream 1 Application 2 (two) times a day if needed (HEMORROIDS). 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 e 01/13/2025 Pneumonia of both lower lobes due to infectious organism 10/01/2024 Resolved Problems Problem Noted Date Diagnosed Date Resolved Date Fever 10/01/2024 10/01/2024 Encounters Date Type Department Care Team Description 02/08/2025 10:25 AM EDT - 02/08/2025 5:00 PM EDT Emergency [facility] [address] [place] [address] Yasmany Hand MD 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[facility] V24, [facility] V28) (Primary Dx) Discharge Disposition: Home or Self Care 01/18/2025 2:02 PM EDT Anesthesia Event [facility] Interventional Radiology [address] [place] [address] Kwaku Knutson DO 01/12/2025 3:45 PM EDT - 01/25/2025 4:30 PM EDT Hospital Encounter [facility] [address] [place] [address] Saran Willis MD Flores, Carlos M, MD Kela, MD Daniel Elena Yar M, MD 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) Discharge Disposition: [facility] 12/12/2024 Lab Requisition [facility] - Main Lab [address] [facility] [place] [address] Erickson Melton MD Pneumonia, unspecified organism; Anemia, unspecified 12/05/2024 Lab Requisition [facility] - Main Lab [address] [facility] [place] [address] Erickson Melton MD Pneumonia, unspecified organism; Anemia, unspecified from Last 3 Months Surgical History Surgery Date Site/Laterality Comments TUBAL LIGATION GASTROTOMY CATARACT EXTRACTION Medical History Medical History Date Comments Down syndrome Dementia ([facility] V24, [facility] V28) CVA (cerebral vascular accident) ([facility] V24, [facility] V28) Hypothyroidism Aspiration pneumonia ([facility] V24, [facility] V28) C. difficile colitis Social History Tobacco [...] for your loved ones. For example, children's librarian or elderly care for an older adult? [...] Safety Answer Date Record ed Physical Abuse 01/25/2025 Verbal Abuse 01/25/2025 Comments No Sex and Gender Information Value Date Recorded Sex Assigned at Female 09/30/2024 10:42 PM EDT Legal Sex Female 5:46 PM EST Gender Identity Female 09/30/2024 10:42 PM EDT Sexual Orientation Straight 09/30/2024 10 :42 PM EDT Obstetrics History Last Filed Vital Signs Vital Sign Reading Time Taken Comments Blood Pressure 97/60 02/08/2025 10:26 AM EDT Pulse 60 02/08/2025 10:26 AM EDT Temperature 36.4 C (97.6 F) 02/08/2025 10:26 AM EDT Respiratory Rate 12 02/08/2025 10:26 AM EDT Oxygen Saturation 93% 02/08/2025 10:26 AM EDT Inhaled Oxygen Concentration - - Weight [...] 2) 2010 Breast Cancer Screening 11/02/2011 11/01/2009 Depression Screening 07/06/2024 Cholesterol Screening (Lipid Panel) 09/13/2024 Colorectal Cancer Screening: Colonoscopy 09/13/2024 HIV Screening 09/13/2024 Hepatitis C Screening 09/13/2024 Medicare Annual Wellness Visit 09/13/2024 Influenza Vaccine (#1) 2025 , 03/31/2023, 05/16/2022, Additional history exists Social Influencers of Health Screening 10/06/2025 10/06/2024 DTaP,Tdap,and Td Vaccines (2 - Td or Tdap) 09/06/2033 09/07/2023 RSV Immunization Adult Patients (1 - 1-dose 75+ series) 2035 COVID-19 Vaccine Completed 04/29/2024, , 04/30/2021, Additional history exists HIB Vaccines Aged Out [...] Procedure Name Priority Date/Time Associated Diagnosis Comments ED FEEDING TUBE REPLACEMENT Routine 02/08/2025 3:35 PM EDT XR ABDOMEN 1 VIEW STAT 02/08/2025 1:5 6 PM EDT POCT GLUCOSE BLOOD Routine 01/25/2025 11 :43 AM EDT BASIC METABOLIC PANEL Timed 01/25/2025 6:58 AM EDT POCT GLUCOSE BLOOD Routine 01/24/2025 11 :33 PM EDT POCT GLUCOSE BLOOD Routine 01/24/2025 6: 53 PM EDT POCT GLUCOSE BLOOD Routine 01/24/2025 12 :09 PM EDT BASIC METABOLIC PANEL Timed 01/24/2025 6:54 AM EDT LAVENDER - EDTA Routine 01/24/2025 6:51 AM EDT EXTRA TUBES Routine 01/24/2025 6:51 AM EDT POCT GLUCOSE BLOOD Routine 01/24/2025 3: 59 AM EDT POCT GLUCOSE BLOOD Routine 01/23/2025 6: 08 PM EDT POCT GLUCOSE BLOOD Routine 01/23/2025 12 :03 PM EDT POCT GLUCOSE BLOOD Routine 01/23/2025 10 :33 AM EDT POCT GLUCOSE BLOOD Routine 01/23/2025 6: 31 AM EDT BASIC METABOLIC PANEL Timed 01/23/2025 6:15 AM EDT LAVENDER - EDTA Routine 01/23/2025 6:10 AM EDT EXTRA TUBES Routine 01/23/2025 6:10 AM EDT POCT GLUCOSE BLOOD Routine 01/23/2025 12 :01 AM EDT POCT GLUCOSE BLOOD Routine 01/22/2025 7: 58 PM EDT POCT GLUCOSE BLOOD Routine 01/22/2025 6: 07 PM EDT POCT GLUCOSE BLOOD Routine 01/22/2025 11 :07 AM EDT POCT GLUCOSE BLOOD Routine 01/22/2025 7: 27 AM EDT POCT GLUCOSE BLOOD Routine 01/22/2025 6: 42 AM EDT LAVENDER - EDTA Routine 01/22/2025 5:48 AM EDT EXTRA TUBES Routine 01/22/2025 5:48 AM EDT BASIC METABOLIC PANEL Timed 01/22/2025 5:48 AM EDT POCT GLUCOSE BLOOD Routine 01/21/2025 11 :46 PM EDT POCT GLUCOSE BLOOD Routine 01/21/2025 2: 50 PM EDT CBC WITH AUTO DIFFERENTIAL Timed 01/21/2025 5:34 AM EDT BASIC METABOLIC PANEL Timed 01/21/2025 5:34 AM EDT CBC AND DIFFERENTIAL Timed 01/21/2025 5:34 AM EDT POCT GLUCOSE BLOOD Routine 01/21/2025 5: 12 AM EDT POCT GLUCOSE BLOOD Routine 01/20/2025 3: 48 PM EDT POCT GLUCOSE BLOOD Routine 01/20/2025 10 :21 AM EDT POCT GLUCOSE BLOOD Routine 01/20/2025 5: 55 AM EDT CBC WITH AUTO DIFFERENTIAL Timed 01/20/2025 5:53 AM EDT BASIC METABOLIC PANEL Timed 01/20/2025 5:53 AM EDT CBC AND DIFFERENTIAL Timed 01/20/2025 5:53 AM EDT POCT GLUCOSE BLOOD Routine 01/20/2025 3: 25 AM EDT POCT GLUCOSE BLOOD Routine 01/19/2025 9: 33 PM EDT POCT GLUCOSE BLOOD Routine 01/19/2025 5: 51 PM EDT POCT GLUCOSE BLOOD Routine 01/19/2025 2: 41 PM EDT BASIC METABOLIC PANEL Timed 01/19/2025 7:10 AM EDT CBC WITH AUTO DIFFERENTIAL Timed 01/19/2025 7:09 AM EDT CBC AND DIFFERENTIAL Timed 01/19/2025 7:09 AM EDT POCT GLUCOSE BLOOD Routine 01/19/2025 6: 24 AM EDT POCT GLUCOSE BLOOD Routine 01/19/2025 12 :39 AM EDT POCT GLUCOSE BLOOD Routine 01/18/2025 5: 10 PM EDT IR CHANGE G-TUBE/GJ-TUBE PERC FLUORO Routine 01/18/2025 2:54 PM EDT TH AN ENDOTRACHEAL(NO CHARGE) Routine 01/18/2025 2:22 PM EDT CBC WITH AUTO DIFFERENTIAL Routine 01/18/2025 12:38 PM EDT CBC AND DIFFERENTIAL Routine 01/18/2025 12:38 PM EDT POCT GLUCOSE BLOOD Routine 01/18/2025 11 :36 AM EDT POCT GLUCOSE BLOOD Routine 01/18/2025 5: 44 AM EDT BASIC METABOLIC PANEL Timed 01/18/2025 5:28 AM EDT ECG 12-LEAD Routine 01/18/2025 1:53 AM EDT POCT GLUCOSE BLOOD Routine 01/17/2025 4: 26 PM EDT POCT GLUCOSE BLOOD Routine 01/17/2025 11 :13 AM EDT CBC WITH AUTO DIFFERENTIAL Timed 01/17/2025 10:26 AM EDT BASIC METABOLIC PANEL Timed 01/17/2025 10:26 AM EDT CBC AND DIFFERENTIAL Timed 01/17/2025 10:26 AM EDT POCT GLUCOSE BLOOD Routine 01/17/2025 7: 12 AM EDT POCT GLUCOSE BLOOD Routine 01/17/2025 6: 15 AM EDT POCT GLUCOSE BLOOD Routine 01/16/2025 11 :54 PM EDT POCT GLUCOSE BLOOD Routine 01/16/2025 11 :21 AM EDT POCT GLUCOSE BLOOD Routine 01/16/2025 7: 42 AM EDT POCT GLUCOSE BLOOD Routine 01/16/2025 6: 43 AM EDT LAVENDER - EDTA Routine 01/16/2025 6:22 AM EDT EXTRA TUBES Routine 01/16/2025 6:22 AM EDT BASIC METABOLIC PANEL Routine 01/16/2025 6:22 AM EDT POCT GLUCOSE BLOOD Routine 01/16/2025 12 :54 AM EDT POCT GLUCOSE BLOOD Routine 01/15/2025 3: 10 PM EDT POCT GLUCOSE BLOOD Routine 01/15/2025 7: 52 AM EDT CBC WITH AUTO DIFFERENTIAL Routine 01/15/2025 6:23 AM EDT CBC AND DIFFERENTIAL Routine 01/15/2025 6:23 AM EDT BASIC METABOLIC PANEL Routine 01/15/2025 6:23 AM EDT POCT GLUCOSE BLOOD Routine 01/15/2025 12 :32 AM EDT POCT GLUCOSE BLOOD Routine 01/14/2025 6: 08 PM EDT CBC WITH AUTO DIFFERENTIAL Routine 01/14/2025 6:23 AM EDT CBC AND DIFFERENTIAL Routine 01/14/2025 6:23 AM EDT MAGNESIUM Routine 01/14/2025 6:23 AM EDT BASIC METABOLIC PANEL Routine 01/14/2025 6:23 AM EDT POCT GLUCOSE BLOOD Routine 01/14/2025 6: 17 AM EDT CLOSTRIDIUM DIFFICILE PCR STAT 01/13/2025 8:53 AM EDT CLOSTRIDIUM DIFFICILE TOXIN STAT 01/13/2025 8:53 AM EDT CLOSTRIDIUM DIFFICILE TOXIN STAT 01/13/2025 3:36 AM EDT US ABDOMEN LIMITED STAT 01/13/2025 12 :[address] ABDOMEN PELVIS W CONTRAST STAT 01/12/2025 10:20 PM EDT LACTATE STAT 01/12/2025 7:40 PM EDT CBC WITH AUTO DIFFERENTIAL STAT 01/12/2025 6:55 PM EDT LIPASE STAT 01/12/2025 6:55 PM EDT MAGNESIUM STAT 01/12/2025 6:55 PM EDT COMPREHENSIVE METABOLIC PANEL STAT 01/12/2025 6:55 PM EDT CBC AND DIFFERENTIAL STAT 01/12/2025 6:55 PM EDT BASIC METABOLIC PANEL Routine 12/06/2024 7:48 AM EDT Pneumonia, unspecified organism Anemia, unspecified COMPLETE BLOOD COUNT Routine 12/06/2024 7:48 AM EDT Pneumonia, unspecified organism Anemia, unspecified from Last 3 Months Results * Feeding Tube Replacement (02/08/2025 3:35 PM EDT) Yasmany Andersen MD - 02/08/2025 3:35 PM EDT Yasmany Hand MD 02/08/2025 3:38 PM Feeding Tube Replacement Date/Time: 02/08/2025 3:35 PM Performed by: Yasmany Hand MD Authorized by: Yasmany Hand MD Consent: Consent given by: Healthcare agent Risks, benefits, and alternatives were discussed: yes [place] protocol: Patient identity confirmed: Arm band Pre-procedure details: Old tube type: Gastrostomy Old tube size: 18 Fr Sedation: Sedation type: None Procedure details: Patient position: Supine Procedure type: Replacement Bulb inflation volume: 22French 20 cc balloon Post-procedure details: Placement/position confirmation: Gastric contents aspirated and x-ray Placement difficulty: None Procedure completion: Tolerated well, no immediate complications us Yasmany Hand MD IN CLINIC/BEDSIDE ORDERAB LES Final Result * XR Abdomen 1 View (02/08/2025 1:56 PM EDT) Anatomical Region Laterality Modality Body Radiographic Caridad ging 02/08/2025 2:10 PM EDT Impressions 02/08/2025 2:11 PM EDT Well-positioned gastric tube. -------- FINAL REPORT -------- Dictated By: Shola Leija Dictated Date: 02/08/2025 14:10 ET Assigned Physician: Shola Leija Reviewed and Electronically Signed By: Shola Leija Signed Date: 02/08/2025 14:11 ET Workstation ID: [id number] Transcribed By: Self Edit Transcribed Date: 02/08/2025 14:10 ET Narrative 02/08/2025 2:11 PM EDT INDICATION: Evaluation of G-tube FINDINGS: Single view of the abdomen was obtained. Compared to study from October 06, 2024. G-tube is well positioned with balloon insufflated along the greater curvature of the stomach. Contrast is gastric lumen as well as along the duodenum and proximal jejunal loops. No extravasation. Procedure Note Shola Leija MD - 02/08/2025 INDICATION: Evaluation of G-tube FINDINGS: Single view of the abdomen was obtained. Compared to study fromOctober 06, 2024. G-tube is well positioned with balloon insufflated along the greatercurvature of the stomach. Contrast is gastric lumen as well as along theduodenum and proximal jejunal loops. No extravasation. IMPRESSION: Well-positioned gastric tube. -------- FINAL REPORT -------- Dictated By: Shola Leija Dictated Date: 02/08/2025 14:10 ET Assigned Physician: Shola Leija Reviewed and Electronically Signed By: Shola Leija Signed Date: 02/08/2025 14:11 ET Workstation ID: [id number] Transcribed By: Self Edit Transcribed Date: 02/08/2025 14:10 ET us Yasmany Hand MD IMG XR PROCEDURES Final R esult * POCT Glucose, blood (01/25/2025 11:43 AM EDT) Only the most recent of44 resultswithin the time period is included. [facility] Glucose POCT 87 70 - 100 mg/dL 01/25/2025 11:45 AM EDT [facility] Blood Capillary blood specimen / Unknown 01/25/2025 11:43 AM EDT 01/25/2025 11:46 AM EDT Jean Paul Medel MD LAB POINT O F CARE TEST DOCKED DEVICE UNSOLICITED RESULTS Final Result [facility] [address] [place] [address], * (ABNORMAL) Basic metabolic panel (01/25/2025 6:58 AM EDT) Only the most recent of13 resultswithin the time period is included. Sodium 139 133 - 145 mmol/L LAB CHEMISTRY METHOD 01/25/2025 8:[address] [facility] Potassium 4.9 3.5 - 5.5 mmol/L LAB CHEMISTRY METHOD 01/25/2025 8:[address] [facility] Chloride 102 96 - 110 mmol/L LAB CHEMISTRY METHOD 01/25/2025 8:[address] [facility] CO2 31 21 - 32 mmol/L LAB CHEMISTRY METHOD 01/25/2025 8:[address] [facility] Anion Gap 6 3 - 11 LAB CHEMISTRY METHOD 01/25/2025 8:[address] [facility] Glucose 82 70 - 100 mg/dL LAB CHEMISTRY METHOD 01/25/2025 8:[address] [facility] BUN 29(H) 5 - 25 mg/dL LAB CHEMISTRY METHOD 01/25/2025 8:[address] [facility] Creatinine 0.84 0.50 - 1.10 mg/dL LAB CHEMISTRY METHOD 01/25/2025 8:[address] [facility] eGFR 78 >=60 mL/min/1. 73m2 LAB CHEMISTRY METHOD 01/25/2025 8:[address] [facility] Comment:Calculation based on the Chronic Kidney Disease Epidemiology Collaboration (CKD-EPI) equation refit without adjustment for race. BUN/Creatinine Ratio 34.5 LAB CHEMISTRY METHOD 01/25/2025 8:06 AM EDT [facility] Calcium 9.3 8.5 - 10.5 mg/dL LAB CHEMISTRY METHOD 01/25/2025 8:06 AM EDT [facility] Blood Venous blood specimen / Unknown Venipuncture / Unknown 01/25/2025 6:58 AM EDT 01/25/2025 7:13 AM EDT Andrea Sanchez MD LAB BLOOD ORDERABLES Final Resul t Performing Organization Address [facility]/ZIP Co de Phone Number [facility] [address] [place] [address], [place] [phone] * Lavender tube (01/24/2025 6:51 AM EDT) Only the most recent of4 resultswithin the time period is included. Extra Tube Hold for add-ons. 01/24/2025 9:01 AM EDT [facility] Comment:Auto resulted. Blood Venous blood specimen / Unknown 01/24/2025 6:51 AM EDT 01/24/2025 7:15 AM EDT Jean Paul Medel MD LAB BLOOD ORDERABLE S Final Result Performing Organization Address City/[facility]/ZIP Co de Phone Number [facility] [address] [place] [address], [place] [phone] * (ABNORMAL) CBC auto differential (01/21/2025 5:34 AM EDT) Only the most recent of8 resultswithin the time period is included. WBC 7.0 4.8 - 10.8 K/[facility] LAB HEMETOLOGY METHOD 01/21/2025 7:15 AM EDT [facility] RBC 4.00 3.80 - 4.80 M/mcL LAB HEMETOLOGY METHOD 01/21/2025 7:15 AM EDT [facility] Hemoglobin 13.2 11.5 - 16.0 g/dL LAB HEMETOLOGY METHOD 01/21/2025 7:[address] [facility] Hematocrit 41.5 35.0 - 47.0 % LAB HEMETOLOGY METHOD 01/21/2025 7:[address] [facility] MCV 104.0(H) 79.0 - 98.0 FL LAB HEMETOLOGY METHOD 01/21/2025 7:[address] [facility] MCH 33.1(H) 27.0 - 32.0 pcg LAB HEMETOLOGY METHOD 01/21/2025 7:[address] [facility] MCHC 31.8(L) 32.0 - 37.0 g/dL LAB HEMETOLOGY METHOD 01/21/2025 7:[address] [facility] RDW 14.9 11.0 - 15.0 % LAB HEMETOLOGY METHOD 01/21/2025 7:[address] [facility] Platelets 216 130 - 400 K/mcL LAB HEMETOLOGY METHOD 01/21/2025 7:[address] [facility] MPV 10.4 7.0 - 11.0 FL LAB HEMETOLOGY METHOD 01/21/2025 7:[address] [facility] NRBC 0.0 <1.0 % LAB HEMETOLOGY METHOD 01/21/2025 7:[address] [facility] NRBC Absolute 0.00 <0.10 K/mcL LAB HEMETOLOGY METHOD 01/21/2025 7:[address] [facility] Neutrophils Relative 73.1 % LAB HEMETOLOGY METHOD 01/21/2025 7:[address] [facility] Lymphocytes Relative 12.1 % LAB HEMETOLOGY METHOD 01/21/2025 7:15 AM EDT [facility] Monocytes Relative 11.0 % LAB HEMETOLOGY METHOD 01/21/2025 7:[address] [facility] Eosinophils Relative 2.4 % LAB HEMETOLOGY METHOD 01/21/2025 7:15 AM T [facility] Basophils Relative 0.7 % LAB HEMETOLOGY METHOD 01/21/2025 7:[address] [facility] Immature Granulocytes Relative 0.7 % LAB HEMETOLOGY METHOD 01/21/2025 7:[address] [facility] Neutrophils Absolute 5.14 1.50 - 7.00 K/mcL LAB HEMETOLOGY METHOD 01/21/2025 7:[address] [facility] Lymphocytes Absolute 0.85(L) 1.00 - 5.00 K/mcL LAB HEMETOLOGY METHOD 01/21/2025 7:[address] [facility] Monocytes Absolute 0.77 0.20 - 1.00 K/mcL LAB HEMETOLOGY METHOD 01/21/2025 7:[address] [facility] Eosinophils Absolute 0.17 0.00 - 0.50 K/mcL LAB HEMETOLOGY METHOD 01/21/2025 7:[address] [facility] Basophils Absolute 0.05 0.00 - 0.20 K/mcL LAB HEMETOLOGY METHOD 01/21/2025 7:[address] [facility] Immature Granulocytes Absolute 0.05(H) 0.00 - 0.03 K/mcL LAB HEMETOLOGY METHOD 01/21/2025 7:[address] [facility] Blood Venous blood specimen / Unknown Venipuncture / Unknown 01/21/2025 5:34 AM EDT 01/21/2025 6:12 AM EDT us Andrea Sanchez MD LAB BLOOD ORDERABLES Final Resul t [facility] [address] [place] [address], * IR Change G-Tube/GJ-Tube Perc Fluoro (01/18/2025 2:54 PM EDT) Anatomical Region Laterality Modality N/A Interventional R adiology 01/19/2025 8:42 AM EDT Impressions 01/19/2025 8:46 AM EDT Impression: 18-Honduran gastrostomy tube replacement. Described cellulitis around the gastrostomy tube appears to be responding well to treatment. No progression noted. Anesthesia support required for gastrostomy tube placement due to patient's underlying condition. -------- FINAL REPORT -------- Dictated By: Yves Manning Dictated Date: 01/19/2025 08:42 ET Assigned Physician: Yves Manning Reviewed and Electronically Signed By: Yves Manning Signed Date: 01/19/2025 08:46 ET Workstation ID: [id number] Transcribed By: Self Edit Transcribed Date: 01/19/2025 08:42 ET Narrative 01/19/2025 8:46 AM EDT Gastrostomy tube exchange INDICATION: Patient with need for routine gastrostomy tube exchange. Cyst also concern for infection surrounding the gastrostomy tube. Patient is currently taking antibiotics for some redness that was noted around the gastrostomy site. COMPARISON: Gastrostomy exchange 10/06/2024. Due to the patient's underlying capacities, general anesthesia was necessitated for routine gastrostomy tube exchange as has been the past. Anesthesia assistance is greatly appreciated. A timeout was performed per institutional guidelines. Patient was assessed in the angiography suite. The patient's gastrostomy tube appears intact. There is a minor amount of pinkish discoloration surrounding the gastrostomy tube. There is a skin marker that is at least 2 times larger than the area of pinkness that had been drawn previously likely demonstrating the extent of the erythema. As such, she has responded well to her antibiotic course and there is no definite evidence of acute or progressive infection. Decision was made to move forward with exchange. Initial fluoroscopic imaging cancers appropriate positioning of the gastrostomy tube after injection of a dilute amount of contrast into the collapsed stomach. A 0.035 wire was advanced through the gastrostomy tube. The balloon was deflated. And the tube was removed utilizing pimple technique. A new 18-Honduran gastrostomy tube was easily advanced over the wire with balloon inflated in the stomach with a dilute mixture of STERILE WATER and contrast. Additional administration of contrast through the gastrostomy port demonstrates appropriate positioning. The Blake disc was advanced to the skin. After being extubated, the patient was discharged in stable condition. Anticipate exchange of gastrostomy tube in 4-6 months Procedure Note Yves Manning MD - 01/19/2025 Gastrostomy tube exchange INDICATION: Patient with need for routine gastrostomy tube exchange. Cystalso concern for infection surrounding the gastrostomy tube. Patient iscurrently taking antibiotics for some redness that was noted around thegastrostomy site. COMPARISON: Gastrostomy exchange 10/06/2024. Due to the patient's underlying capacities, general anesthesia wasnecessitated for routine gastrostomy tube exchange as has been the past.Anesthesia assistance is greatly appreciated. A timeout was performed per institutional guidelines. Patient was assessed in the angiography suite. The patient's gastrostomytube appears intact. There is a minor amount of pinkish discolorationsurrounding the gastrostomy tube. There is a skin marker that is at least2 times larger than the area of pinkness that had been drawn previouslylikely demonstrating the extent of the erythema. As such, she hasresponded well to her antibiotic course and there is no definite evidenceof acute or progressive infection. Decision was made to move forward withexchange. Initial fluoroscopic imaging cancers appropriate positioning of thegastrostomy tube after injection of a dilute amount of contrast into thecollapsed stomach. A 0.035 wire was advanced through the gastrostomytube. The balloon was deflated. And the tube was removed utilizingpimple technique. A new 18-Honduran gastrostomy tube was easily advancedover the wire with balloon inflated in the stomach with a dilute mixtureof STERILE WATER and contrast. Additional administration of contrastthrough the gastrostomy port demonstrates appropriate positioning. TheMolnar disc was advanced to the skin. After being extubated, the patient was discharged in stable condition.Anticipate exchange of gastrostomy tube in 4-6 months IMPRESSION: Impression: 18-Honduran gastrostomy tube replacement. Described cellulitis around the gastrostomy tube appears to be respondingwell to treatment. No progression noted. Anesthesia support required for gastrostomy tube placement due topatient's underlying condition. -------- FINAL REPORT -------- Dictated By: Yves Manning Dictated Date: 01/19/2025 08:42 ET Assigned Physician: Yves Manning Reviewed and Electronically Signed By: Yves Mannign Signed Date: 01/19/2025 08:46 ET Workstation ID: [id number] Transcribed By: Self Edit Transcribed Date: 01/19/2025 08:42 ET us Vincent Trejo MD IMG IR PROCEDURES Final Resul t * TH AN ENDOTRACHEAL(NO CHARGE) (01/18/2025 2:22 PM EDT) Margaret Garduno CRNA - 01/18/2025 2:22 PM EDT Margaret Poole CRNA 01/18/2025 2:23 PM General Information and Staff Patient location during procedure: OR Performed by: Margaret Poole CRNA Authorized by: Kwaku Knutson DO Intubation Airway not difficult Urgency: elective Final Airway Details Successful airway: ETT Cuffed: yes Successful intubation technique: video laryngoscopy Facilitating devices/methods: intubating stylet Endotracheal tube insertion site: oral Blade: Anjana Blade size: #3 ETT size (mm): 6.0 Cormack-Lehane Classification: grade I - full view of glottis Placement verified by: chest auscultation and capnometry Measured from: lips ETT to lips (cm): 22 Number of attempts at approach: 1 Ventilation between attempts: none Number of other approaches attempted: 0Final airway type: endotracheal airway Indications and Patient Condition Indications for airway management: anesthesia and airway protection Spontaneous ventilation: present Sedation level: Yes Preoxygenated: yes Soft Tissue Damage: No Dentition Unchanged: Yes Patient position: neutral MILS not maintained throughout Mask difficulty assessment: 0 - not attempted Start Time: 01/18/2025 2:11 PMStop Time: 01/18/2025 2:11 PM us Kwaku Knutson DO ANESTHESIA ORDERABLES Final Res ult * ECG 12 lead (01/18/2025 1:53 AM EDT) Pathologist [facility] Ventricular Rate ECG 59 BPM GEMUSE Atrial Rate 59 BPM GEMUSE P-R Interval 186 ms GEMUSE QRS Duration 120 ms GEMUSE Q-T Interval 488 ms GEMUSE QTc 483 ms GEMUSE P Wave Kn[place]ocker 49 degrees GEMUSE R [place]ocker -43 degrees GEMUSE ECG Interpretation Sinus bradycardia Left bundle branch block Abnormal ECG When compared with ECG of 05-OCT-2024 16:32, No significant change was found Confirmed by KENNETH WALTERS ([id number]) on 01/18/2025 10:18:31 AM GEMUSE 01/18/2025 1:53 AM EDT 01/18/2025 10:18 AM EDT Andrea Sanchez MD ECG ORDERABLES Final Result Performing Organization Address City/[facility]/ZIP Co de Phone Number GEMUSE * Magnesium (01/14/2025 6:23 AM EDT) Only the most recent of2 resultswithin the time period is included. [facility] Magnesium 2.1 1.9 - 2.6 mg/dL LAB CHEMISTRY METHOD 01/14/2025 7:27 AM EDT [facility] Blood Venous blood specimen / Unknown Venipuncture / Unknown 01/14/2025 6:23 AM EDT 01/14/2025 6:46 AM EDT Vincent Trejo MD LAB BLOOD ORDERABLES Final Re sult [facility] [address] [place] [address], * (ABNORMAL) Clostridium difficile molecular study (01/13/2025 8:53 AM EDT) [facility] Clostridium difficile PCR Positive (AA) Negative LAB MICROBIOLOGY METHOD 01/13/2025 11:19 AM EDT [facility] Comment: CRITICAL RESULT POSITIVE FOR TOXIN PRODUCING CLOSTRIDIOIDES DIFFICILE, NO ADDITIONAL TESTING IS NECESSARY. REPEAT SAMPLES SHOULD NOT BE SUBMITTED FOR TEST OF CURE. Stool Rectum structure / Unknown Non-blood Collection / Unknown 01/13/2025 8:53 AM EDT 01/13/2025 10:18 AM EDT us Vincent Trejo MD LAB MICROBIOLOGY - GENERAL OR DERABLES Final Result Performing Organization Address [facility]/[place] de Phone Number [facility] [address] [place] [address], [place] [phone] * Clostridium difficile toxin (01/13/2025 8:53 AM EDT) Only the most recent of2 resultswithin the time period is included. C difficile Toxins A+B, EIA 01/13/2025 10:19 AM EDT [facility] Comment:Refer to C. difficil e PCR assay for results. Stool Rectum structure / Unknown Non-blood Collection / Unknown 01/13/2025 8:53 AM EDT 01/13/2025 8:53 AM EDT us Vincent Trejo MD LAB MICROBIOLOGY - GENERAL OR DERABLES Final Result Performing Organization Address [facility] de Phone Number [facility] [address] [place] [address], [place] [phone] * US Abdomen Limited (01/13/2025 12:33 AM EDT) Anatomical Region Laterality Modality Body Ultrasound 01/13/2025 1:13 AM EDT Impressions 01/13/2025 1:13 AM EDT 1. Significantly limited exam due to patient inability to cooperate. 2. Cholelithiasis is noted. No definite pericholecystic fluid. Common bile duct is normal in caliber measuring 2 mm. This document has been electronically signed by: Igor Garza M.D. on 01/13/2025 01:13:24 Narrative 01/13/2025 1:13 AM EDT INDICATION: pain ULTRASOUND ABDOMEN LIMITED COMPARISON: CT abdomen/pelvis 01/12/2025. FINDINGS: Exam is significantly limited due to patient inability to cooperate. Pancreas is not well visualized due to overlying bowel gas. Liver is not optimally visualized. Cyst in the right hepatic lobe is estimated to measure 1.3 x 1.2 x 1.2 cm on image 33. Gallbladder is underdistended. Cholelithiasis is noted. Assessment is limited due to patient inability to be properly positioned. No definite pericholecystic fluid. Common bile duct measures 2 mm in caliber. Right kidney is not optimally visualized. There is no hydronephrosis. Procedure Note Igor Garza MD - 01/13/2025 INDICATION: pain ULTRASOUND ABDOMEN LIMITED COMPARISON: CT abdomen/pelvis 01/12/2025. FINDINGS: Exam is significantly limited due to patient inability to cooperate. Pancreas is not well visualized due to overlying bowel gas. Liver is not optimally visualized. Cyst in the right hepatic lobe is estimated to measure 1.3 x 1.2 x 1.2 cm on image 33. Gallbladder is underdistended. Cholelithiasis is noted. Assessment is limited due to patient inability to be properly positioned. No definite pericholecystic fluid. Common bile duct measures 2 mm in caliber. Right kidney is not optimally visualized. There is no hydronephrosis. IMPRESSION: 1. Significantly limited exam due to patient inability to cooperate. 2. Cholelithiasis is noted. No definite pericholecystic fluid. Commonbile duct is normal in caliber measuring 2 mm. This document has been electronically signed by: Igor Garza M.D. on 01/13/2025 01:13:24 us Scot Phyllis RUIZ US PROCEDURES Final Result * CT Abdomen Pelvis w Contrast (01/12/2025 10:20 PM EDT) Anatomical Region Laterality Modality Body Computed Tomogra phy 01/12/2025 11:2 5 PM EDT Impressions 01/12/2025 11:25 PM EDT 1. Findings suggesting proctocolitis, as detailed above. No evidence of a bowel obstruction or free air. No abscess. 2. Skin thickening is noted adjacent to the PEG tube site. This can be correlated with physical exam. 3. Distal stomach appears thick-walled. Mild stranding/haziness is questioned adjacent to a portion of the distal stomach. An infectious or inflammatory process is suspected. 3. Cholelithiasis is again suspected. A tiny amount of fluid is questioned in between the liver and gallbladder. This can be further assessed with a follow-up right upper quadrant ultrasound. 5. Additional findings are detailed above. This document has been electronically signed by: Igor Garza M.D. on 01/12/2025 23:25:24 Narrative 01/12/2025 11:25 PM EDT INDICATION: Abdominal pain, acute, nonlocalized CT ABDOMEN AND PELVIS WITH CONTRAST COMPARISON: 10/05/2024. FINDINGS: Gastrostomy tube is noted with balloon and tip terminating in the stomach. Skin thickening is noted adjacent to the PEG tube site, for example seen on axial image 60. This can be correlated with physical exam. Bibasilar atelectasis is present. Cardiomegaly is noted. Liver is enlarged and estimated to measure approximately 19.3 cm on coronal image 44. Cyst in the right hepatic lobe is again noted and measures 2.0 cm. A subcentimeter low-attenuation lesion in the left hepatic lobe is too small to characterize. Cholelithiasis is again suspected. Tiny amount of fluid is questioned in between the liver and gallbladder, for example seen on axial image 52. Distal stomach appears thick-walled. Mild stranding/haziness is questioned adjacent to a portion of the distal stomach on axial image 70. An infectious or inflammatory process is suspected. No CT evidence of acute pancreatitis. Spleen is unremarkable. Mild thickening of the adrenal glands is again noted. Subcentimeter low-attenuation lesion in the left kidney is too small to characterize. No hydronephrosis or obstructing stone. Urinary bladder is underdistended. Abdominal aorta is normal in caliber, without evidence of an aneurysm or dissection. Portions of small bowel and colon are partially obscured due to motion/streak artifact. No evidence of a bowel obstruction or free air. Mucosal enhancement is noted involving the colon and rectum. Accurate assessment for wall thickening is difficult due to underdistention, however portions of the rectum and colon are suspected to be thick-walled. Additionally, stranding/haziness is noted adjacent to portions of the colon, for example seen adjacent to the ascending colon on axial image 103. Imaging findings suggest proctocolitis. No abscess. What is suspected to represent a borderline sized low-density lymph node is noted adjacent to the left renal vein on axial image 52 and measures 10 mm in short axis dimension. This does not appear to be significantly changed. The bone windows demonstrate no acute abnormalities. There is mild anterolisthesis of L3 on L4, and L4 on L5. Procedure Note Igor Garza MD - 01/12/2025 INDICATION: Abdominal pain, acute, nonlocalized CT ABDOMEN AND PELVIS WITH CONTRAST COMPARISON: 10/05/2024. FINDINGS: Gastrostomy tube is noted with balloon and tip terminating in the stomach. Skin thickening is noted adjacent to the PEG tube site, for example seen on axial image 60. This can be correlated with physicalexam. Bibasilar atelectasis is present. Cardiomegaly is noted. Liver isenlarged and estimated to measure approximately 19.3 cm on coronal image 44. Cyst in the right hepatic lobe is again noted and measures 2.0 cm. A subcentimeter low-attenuation lesion in the left hepatic lobe is toosmall to characterize. Cholelithiasis is again suspected. Tiny amount of fluid is questioned in between the liver and gallbladder, for example seen on axial image 52. Distal stomach appears thick-walled. Mild stranding/haziness isquestioned adjacent to a portion of the distal stomach on axial image 70. An infectious or inflammatory process is suspected. No CT evidence of acute pancreatitis. Spleen is unremarkable. Mild thickening of the adrenal glands is again noted. Subcentimeter low-attenuation lesion in the left kidney is too small to characterize.No hydronephrosis or obstructing stone. Urinary bladder is underdistended. Abdominal aorta is normal in caliber, without evidence of an aneurysm or dissection. Portions of small bowel and colon are partially obscured due to motion/streak artifact. No evidence of a bowel obstruction or freeair. Mucosal enhancement is noted involving the colon and rectum. Accurate assessment for wall thickening is difficult due to underdistention, however portions of the rectum and colon are suspected to bethick-walled. Additionally, stranding/haziness is noted adjacent to portions of the colon, for example seen adjacent to the ascending colon on axial image 103. Imaging findings suggest proctocolitis. No abscess. What issuspected to represent a borderline sized low-density lymph node is noted adjacent to the left renal vein on axial image 52 and measures 10 mm in shortaxis dimension. This does not appear to be significantly changed. The bone windows demonstrate no acute abnormalities. There is mildanterolisthesis of L3 on L4, and L4 on L5. IMPRESSION: 1. Findings suggesting proctocolitis, as detailed above. No evidence ofa bowel obstruction or free air. No abscess. 2. Skin thickening is noted adjacent to the PEG tube site. This can be correlated with physical exam. 3. Distal stomach appears thick-walled. Mild stranding/haziness is questioned adjacent to a portion of the distal stomach. An infectious or inflammatory process is suspected. 3. Cholelithiasis is again suspected. A tiny amount of fluid isquestioned in between the liver and gallbladder. This can be further assessed witha follow-up right upper quadrant ultrasound. 5. Additional findings are detailed above. This document has been electronically signed by: Igor Garza M.D. on 01/12/2025 23:25:24 us Saran Willis MD IMG CT PROCEDURES Final Result * Lactate (01/12/2025 7:40 PM EDT) [facility] Lactate 0.9 0.4 - 2.0 mmol/L LAB CHEMISTRY METHOD 01/12/2025 8:10 PM EDT [facility] Blood Venous blood specimen / Unknown Venipuncture / Unknown 01/12/2025 7:40 PM EDT 01/12/2025 7:44 PM EDT us Saran Willis MD LAB BLOOD ORDERABLES Final Resu lt [facility] [address] [place] [address], [place] [phone] * Lipase (01/12/2025 6:55 PM EDT) [facility] Lipase 23 13 - 75 unit/L LAB CHEMISTRY METHOD 01/12/2025 7:[address] [facility] Blood Venous blood specimen / Unknown Venipuncture / Unknown 01/12/2025 6:55 PM EDT 01/12/2025 7:09 PM EDT us Bo RENTERIA LAB BLOOD ORDERABLES Ness l Result [facility] [address] [place] [address], * (ABNORMAL) Comprehensive metabolic panel (01/12/2025 6:55 PM EDT) Sodium 141 133 - 145 mmol/L LAB CHEMISTRY METHOD 01/12/2025 8:[address] [facility] Potassium 4.1 3.5 - 5.5 mmol/L LAB CHEMISTRY METHOD 01/12/2025 8:[address] [facility] Chloride 106 96 - 110 mmol/L LAB CHEMISTRY METHOD 01/12/2025 8:[address] [facility] CO2 32 21 - 32 mmol/L LAB CHEMISTRY METHOD 01/12/2025 8:[address] [facility] Anion Gap 3 3 - 11 LAB CHEMISTRY METHOD 01/12/2025 8:[address] [facility] Glucose 94 70 - 100 mg/dL LAB CHEMISTRY METHOD 01/12/2025 8:[address] [facility] BUN 24 5 - 25 mg/dL LAB CHEMISTRY METHOD 01/12/2025 8:[address] [facility] Creatinine 0.61 0.50 - 1.10 mg/dL LAB CHEMISTRY METHOD 01/12/2025 8:[address] [facility] eGFR 100 >=60 mL/min/1. 73m2 LAB CHEMISTRY METHOD 01/12/2025 8:[address] [facility] Comment:Calculation based on the Chronic Kidney Disease Epidemiology Collaboration (CKD-EPI) equation refit without adjustment for race. BUN/Creatinine Ratio 39.3 LAB CHEMISTRY METHOD 01/12/2025 8:[address] [facility] Calcium 8.5 8.5 - 10.5 mg/dL LAB CHEMISTRY METHOD 01/12/2025 8:[address] [facility] AST (SGOT) 22 10 - 42 unit/L LAB CHEMISTRY METHOD 01/12/2025 8:[address] [facility] ALT (SGPT) 19 10 - 60 unit/L LAB CHEMISTRY METHOD 01/12/2025 8:[address] [facility] Alkaline Phosphatase 80 42 - 121 unit/L LAB CHEMISTRY METHOD 01/12/2025 8:[address] [facility] Total Protein 6.0 6.0 - 8.0 g/dL LAB CHEMISTRY METHOD 01/12/2025 8:[address] [facility] Albumin 2.6(L) 3.2 - 5.0 g/dL LAB CHEMISTRY METHOD 01/12/2025 8:[address] [facility] Total Bilirubin 0.3 0.0 - 1.4 mg/dL LAB CHEMISTRY METHOD 01/12/2025 8:[address] [facility] Blood Venous blood specimen / Unknown Venipuncture / Unknown 01/12/2025 6:55 PM EDT 01/12/2025 7:09 PM EDT us Bo RENTERIA LAB BLOOD ORDERABLES Ness l Result [facility] [address] [place] [address], * (ABNORMAL) Complete blood count (12/06/2024 7:48 AM EDT) WBC 3.8(L) 4.8 - 10.8 K/mcL LAB HEMETOLOGY METHOD 12/06/2024 11:[address] [facility] RBC 3.80 3.80 - 4.80 M/mcL LAB HEMETOLOGY METHOD 12/06/2024 11:[address] [facility] Hemoglobin 12.7 11.5 - 16.0 g/dL LAB HEMETOLOGY METHOD 12/06/2024 11:[address] [facility] Hematocrit 40.7 35.0 - 47.0 % LAB HEMETOLOGY METHOD 12/06/2024 11:[address] [facility] MCV 108.5(H) 79.0 - 98.0 FL LAB HEMETOLOGY METHOD 12/06/2024 11:[address] [facility] MCH 33.9(H) 27.0 - 32.0 pcg LAB HEMETOLOGY METHOD 12/06/2024 11:[address] [facility] MCHC 31.2(L) 32.0 - 37.0 g/dL LAB HEMETOLOGY METHOD 12/06/2024 11:[address] [facility] RDW 15.0 11.0 - 15.0 % LAB HEMETOLOGY METHOD 12/06/2024 11:[address] [facility] Platelets 160 130 - 400 K/mcL LAB HEMETOLOGY METHOD 12/06/2024 11:[address] [facility] MPV 11.2(H) 7.0 - 11.0 FL LAB HEMETOLOGY METHOD 12/06/2024 11:[address] [facility] NRBC 0.0 <1.0 % LAB HEMETOLOGY METHOD 12/06/2024 11:[address] [facility] NRBC Absolute 0.00 <0.10 K/mcL LAB HEMETOLOGY METHOD 12/06/2024 11:[address] 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 Do not modify or discontinue any currently active code status orders. * Full Code - Default Date Activated Date Inactivated Comments 10/05/2024 9:03 [...] Agents on File Name Relationship Healthcare Agent [facility] Communication Karyna [facility] Care Agent Care Teams Manager Of Regulatory Affairs Relationship Specialty Start Date End Date Erickson Melton MD [address] [place] [address] PCP - General Internal Medicine 09/13/24
--- OUTSIDE RECORDS SUMMARY | 2025-03-05 00:27 | XMS_ITS | Encounter Summary ---
Author Organization [facility] Address [address] [place] [address] Care Team Providers Care Curriculum Specialist Name Role Phone Erickson Melton MD Primary Care Provider [phone]- [phone] Encounter Details Date Type Department Care Team (Late st Contact Info) Description 09/19/2024 Lab Requisition [facility] [address] [facility] [place] [address] Erickson Melton MD [address] [place] [id number] Other seizures (CMS/HCC V24, CMS/HCC V28); Hypothyroidism, [...] (ABNORMAL) Thyroxine total (09/19/2024 9:04 AM EDT) [facility] T4, Total 2.8(L) 4.5 - 10.9 mcg/dL LAB CHEMISTRY METHOD 09/19/2024 1:40 PM EDT [facility] Blood Venous blood specimen / Unknown Venipuncture / Unknown 09/19/2024 9:04 AM EDT 09/19/2024 11:18 AM EDT Erickson Melton MD LAB BLOOD ORDERABLES Final Result [facility] [address] [place] [address], * (ABNORMAL) Comprehensive metabolic panel (09/19/2024 9:04 AM EDT) [facility] Sodium 139 133 - 145 mmol/L LAB CHEMISTRY METHOD 09/19/2024 1:38 PM [facility] Potassium 4.2 3.5 - 5.5 mmol/L LAB CHEMISTRY METHOD 09/19/2024 1:38 PM [facility] Chloride 97 96 - 110 mmol/L LAB CHEMISTRY METHOD 09/19/2024 1:38 PM T [facility] CO2 38(H) 21 - 32 mmol/L LAB CHEMISTRY METHOD 09/19/2024 1:38 PM [facility] Anion Gap 4 3 - 11 LAB CHEMISTRY METHOD 09/19/2024 1:38 PM [facility] Glucose 98 70 - 100 mg/dL LAB CHEMISTRY METHOD 09/19/2024 1:38 PM [facility] BUN 27(H) 5 - 25 mg/dL LAB CHEMISTRY METHOD 09/19/2024 1:38 PM T [facility] Creatinine 0.67 0.50 - 1.10 mg/dL LAB CHEMISTRY METHOD 09/19/2024 1:38 PM T [facility] eGFR 98 >=60 mL/min/1. 73m2 LAB CHEMISTRY METHOD 09/19/2024 1:38 PM [facility] Comment:Calculation based on the Chronic Kidney Disease Epidemiology Collaboration (CKD-EPI) equation refit without adjustment for race. BUN/Creatinine Ratio 40.3 LAB CHEMISTRY METHOD 09/19/2024 1:38 PM T [facility] Calcium 8.9 8.5 - 10.5 mg/dL LAB CHEMISTRY METHOD 09/19/2024 1:38 PM [facility] AST (SGOT) 20 10 - 42 unit/L LAB CHEMISTRY METHOD 09/19/2024 1:38 PM [facility] ALT (SGPT) 32 10 - 60 unit/L LAB CHEMISTRY METHOD 09/19/2024 1:38 PM [facility] Alkaline Phosphatase 144(H) 42 - 121 unit/L LAB CHEMISTRY METHOD 09/19/2024 1:38 PM [facility] Total Protein 6.6 6.0 - 8.0 g/dL LAB CHEMISTRY METHOD 09/19/2024 1:38 PM [facility] Albumin 2.6(L) 3.2 - 5.0 g/dL LAB CHEMISTRY METHOD 09/19/2024 1:38 PM [facility] Total Bilirubin 0.2 0.0 - 1.4 mg/dL LAB CHEMISTRY METHOD 09/19/2024 1:38 PM [facility] Blood Venous blood specimen / Unknown Venipuncture / Unknown 09/19/2024 9:04 AM EDT 09/19/2024 11:18 AM EDT us Erickson Melton MD LAB BLOOD ORDERABLES Final Result [facility] [address] [place] [address], * (ABNORMAL) Complete blood count (09/19/2024 9:04 AM EDT) [facility] WBC 7.4 4.8 - 10.8 K/mcL LAB HEMETOLOGY METHOD 09/19/2024 11:51 AM EDT [facility] RBC 3.30(L) 3.80 - 4.80 M/mcL LAB HEMETOLOGY METHOD 09/19/2024 11:51 AM EDT [facility] Hemoglobin 11.0(L) 11.5 - 16.0 g/dL LAB HEMETOLOGY METHOD 09/19/2024 11:51 AM [facility] Hematocrit 35.4 35.0 - 47.0 % LAB HEMETOLOGY METHOD 09/19/2024 11:51 AM [facility] MCV 108.3(H) 79.0 - 98.0 FL LAB HEMETOLOGY METHOD 09/19/2024 11:51 AM [facility] MCH 33.6(H) 27.0 - 32.0 pcg LAB HEMETOLOGY METHOD 09/19/2024 11:51 AM [facility] MCHC 31.1(L) 32.0 - 37.0 g/dL LAB HEMETOLOGY METHOD 09/19/2024 11:51 AM [facility] RDW 14.5 11.0 - 15.0 % LAB HEMETOLOGY METHOD 09/19/2024 11:51 AM [facility] Platelets 291 130 - 400 K/mcL LAB HEMETOLOGY METHOD 09/19/2024 11:51 AM [facility] MPV 11.1(H) 7.0 - 11.0 FL [...] Final Result [facility] [address] [place] [address], documented in this encounter Visit Diagnoses Diagnosis [...] documented as of this encounter Care Teams Curriculum Specialist Relationship Specialty Start Date End Date Erickson Melton MD [address] [place] [address] PCP - General Internal Medicine 09/13/24 documented as of this encounter
--- OUTSIDE RECORDS SUMMARY | 2025-03-05 00:27 | XMS_ITS | Encounter Summary ---
Author Organization [facility] Address [address] [place] [address] Care Team Providers Care Card Lacer Name Role Phone Erickson Melton MD Primary Care Provider +1- [phone] Encounter Details Date Type Department Care Team (Late st Contact Info) Description 10/24/2024 Lab Requisition [facility] - Main Lab 299 [facility] [place] [address] Erickson Melton MD [address] [place] [address] Pneumonia, unspecified organism; Anemia, unspecified Social History [...] loved ones. For example, child and family therapist or elderly care for an older adult? [...] mmol/L LAB CHEMISTRY METHOD 10/25/2024 11:17 AM [facility] Potassium 4.2 3.5 - 5.5 mmol/L LAB CHEMISTRY METHOD 10/25/2024 11:17 AM [facility] Chloride 102 96 - 110 mmol/L LAB CHEMISTRY METHOD 10/25/2024 11:17 AM [facility] CO2 31 21 - 32 mmol/L LAB CHEMISTRY METHOD 10/25/2024 11:17 AM [facility] Anion Gap 9 3 - 11 LAB CHEMISTRY METHOD 10/25/2024 11:17 AM [facility] Glucose 98 70 - 100 mg/dL LAB CHEMISTRY METHOD 10/25/2024 11:17 AM [facility] BUN 26(H) 5 - 25 mg/dL LAB CHEMISTRY METHOD 10/25/2024 11:17 AM [facility] Creatinine 0.71 0.50 - 1.10 mg/dL LAB CHEMISTRY METHOD 10/25/2024 11:17 AM [facility] eGFR 95 >=60 mL/min/1. 73m2 LAB CHEMISTRY METHOD 10/25/2024 11:17 AM [facility] Comment:Calculation based on the Chronic Kidney Disease Epidemiology Collaboration (CKD-EPI) equation refit without adjustment for race. BUN/Creatinine Ratio 36.6 LAB CHEMISTRY METHOD 10/25/2024 11:17 AM [facility] Calcium 8.8 8.5 - 10.5 mg/dL LAB CHEMISTRY METHOD 10/25/2024 11:17 AM [facility] Blood Venous blood specimen / Unknown Venipuncture / Unknown 10/25/2024 8:09 AM EDT 10/25/2024 9:05 AM EDT us Erickson Melton MD LAB BLOOD ORDERABLES Final Result [facility] [address] [place] [address], * (ABNORMAL) Complete blood count (10/25/2024 8:09 AM EDT) WBC 5.1 4.8 - 10.8 K/mcL LAB HEMETOLOGY METHOD 10/25/2024 10:40 AM EDT [facility] RBC 3.70(L) 3.80 - 4.80 M/mcL LAB HEMETOLOGY METHOD 10/25/2024 10:40 AM EDT [facility] Hemoglobin 12.7 11.5 - 16.0 g/dL LAB HEMETOLOGY METHOD 10/25[facility]2024 10[facility]40 [facility] Hematocrit 40.0 35.0 - 47.0 % LAB HEMETOLOGY METHOD 10/25/2024 10:40 AM EDT [facility] MCV 107.2(H) 79.0 - 98.0 FL LAB HEMETOLOGY METHOD 10/25/2024 10:40 AM EDT [facility] MCH 34.0(H) 27.0 - 32.0 pcg LAB HEMETOLOGY METHOD 10/25/2024 10:40 [facility] MCHC 31.8(L) 32.0 - 37.0 g/dL LAB HEMETOLOGY METHOD 10/25/2024 10:40 AM EDT [facility] RDW 16.7(H) 11.0 - 15.0 % LAB HEMETOLOGY METHOD 10/25/2024 10:40 AM EDT [facility] Platelets 189 130 - 400 K/mcL LAB HEMETOLOGY METHOD 10/25/2024 10:40 [facility] MPV 11.2(H) 7.0 - 11.0 FL LAB HEMETOLOGY METHOD 10/25/2024 10:40 AM EDT [facility] NRBC 0.0 <1.0 % LAB HEMETOLOGY METHOD 10/25/2024 10:40 AM EDT [facility] NRBC Absolute 0.00 <0.10 K/mcL LAB HEMETOLOGY METHOD 10/25/2024 10:40 AM EDT [facility] Blood Venous blood specimen / Unknown Venipuncture / Unknown 10/25/2024 8:09 AM EDT 10/25/2024 9:05 AM EDT Erickson Melton MD LAB BLOOD ORDERABLES Final Result [facility] [address] [place] [address], documented in this encounter Visit Diagnoses Diagnosis [...] documented as of this encounter Care Teams Card Lacer Relationship Specialty Start Date End Date Erickson Melton MD [address] [place] [id number] PCP - General Internal Medicine 09/13/24 documented as of this encounter
--- OUTSIDE RECORDS SUMMARY | 2025-03-05 00:27 | XMS_ITS | Encounter Summary ---
Author Organization [facility] Address [address] [place] [address] Care Team Providers Care Light Equipment Operator Name Role Phone Erickson Melton MD Primary Care Provider +1- [phone] Encounter Details Date Type Department Care Team (Late st Contact Info) Description 11/21/2024 Lab Requisition [facility] - Main Lab 299 [facility] [place] [address] Erickson Melton MD [address] [place] [address] Pneumonia, unspecified organism; Anemia, unspecified Social History [...] for your loved ones. For example, child development instructor or elderly care for an older adult? [...] Associated Diagnosis Comments COMPLETE BLOOD COUNT Routine 11/22/2024 7:30 AM EDT Pneumonia, unspecified organism Anemia, unspecified BASIC METABOLIC PANEL Routine 11/22/2024 7:30 AM EDT Pneumonia, unspecified organism Anemia, unspecified documented in this encounter Results * (ABNORMAL) Basic metabolic panel (11/22/2024 7:30 AM EDT) Sodium 138 133 - 145 mmol/L LAB CHEMISTRY METHOD 11/22/2024 11:50 AM [facility] Potassium 4.0 3.5 - 5.5 mmol/L LAB CHEMISTRY METHOD 11/22/2024 11:50 AM [facility] Chloride 102 96 - 110 mmol/L LAB CHEMISTRY METHOD 11/22/2024 11:50 AM [facility] CO2 26 21 - 32 mmol/L LAB CHEMISTRY METHOD 11/22/2024 11:50 AM [facility] Anion Gap 10 3 - 11 LAB CHEMISTRY METHOD 11/22/2024 11:50 AM [facility] Glucose 88 70 - 100 mg/dL LAB CHEMISTRY METHOD 11/22/2024 11:50 AM [facility] BUN 27(H) 5 - 25 mg/dL LAB CHEMISTRY METHOD 11/22/2024 11:50 AM [facility] Creatinine 0.64 0.50 - 1.10 mg/dL LAB CHEMISTRY METHOD 11/22/2024 11:50 AM [facility] eGFR 99 >=60 mL/min/1. 73m2 LAB CHEMISTRY METHOD 11/22/2024 11:50 AM [facility] Comment:Calculation based on the Chronic Kidney Disease Epidemiology Collaboration (CKD-EPI) equation refit without adjustment for race. BUN/Creatinine Ratio 42.2 LAB CHEMISTRY METHOD 11/22/2024 11:50 AM [facility] Calcium 8.6 8.5 - 10.5 mg/dL LAB CHEMISTRY METHOD 11/22/2024 11:50 AM [facility] Blood Venous blood specimen / Unknown Venipuncture / Unknown 11/22/2024 7:30 AM EDT 11/22/2024 10:25 AM EDT us Erickson Melton MD LAB BLOOD ORDERABLES Final Result [facility] [address] [place] [address], * (ABNORMAL) Complete blood count (11/22/2024 7:30 AM EDT) WBC 5.4 4.8 - 10.8 K/mcL LAB HEMETOLOGY METHOD 11/22/2024 10:41 AM EDT [facility] RBC 3.80 3.80 - 4.80 M/mcL LAB HEMETOLOGY METHOD 11/22/2024 10:41 AM EDT [facility] Hemoglobin 13.1 11.5 - 16.0 g/dL LAB HEMETOLOGY METHOD 11/22/2024 10:41 AM EDT [facility] Hematocrit 40.5 35.0 - 47.0 % LAB HEMETOLOGY METHOD 11/22/2024 10:41 AM EDT [facility] MCV 105.5(H) 79.0 - 98.0 FL LAB HEMETOLOGY METHOD 11/22/2024 10:41 AM EDT [facility] MCH 34.1(H) 27.0 - 32.0 pcg LAB HEMETOLOGY METHOD 11/22/2024 10:41 AM EDT [facility] MCHC 32.3 32.0 - 37.0 g/dL LAB HEMETOLOGY METHOD 11/22/2024 10:41 AM EDT [facility] RDW 15.9(H) 11.0 - 15.0 % LAB HEMETOLOGY METHOD 11/22/2024 10:41 AM EDT [facility] Platelets 219 130 - 400 K/mcL LAB HEMETOLOGY METHOD 11/22/2024 10:41 AM EDT [facility] MPV 10.8 7.0 - 11.0 FL LAB HEMETOLOGY METHOD 11/22/2024 10:41 AM EDT [facility] NRBC 0.0 <1.0 % LAB HEMETOLOGY METHOD 11/22/2024 10:41 AM EDT [facility] NRBC Absolute 0.00 <0.10 K/mcL LAB HEMETOLOGY METHOD 11/22/2024 10:41 AM EDT [facility] Blood Venous blood specimen / Unknown Venipuncture / Unknown 11/22/2024 7:30 AM EDT 11/22/2024 10:25 AM EDT Erickson Melton MD LAB BLOOD ORDERABLES Final Result [facility] [address] [place] [address], documented in this encounter Visit Diagnoses Diagnosis Pneumonia, unspecified organism Anemia, unspecified documented in this encounter Additional Health Concerns Infection Onset Date Last Indicated Resolved Time C. difficile Rule-Out 01/13/2025 01/13/20252024 4:32 AM EDT C. difficile Rule-Out 01/13/2025 01/13/20252024 10:19 AM EDT C. difficile 01/13/2025 01/13/2025 02/06/2025 7:06 PM EDT documented as of this encounter Care Teams Light Equipment Operator Relationship Specialty Start Date End Date Erickson Melton MD [address] [place] [id number] PCP - General Internal Medicine 09/13/24 documented as of this encounter
--- OUTSIDE RECORDS SUMMARY | 2025-03-05 00:27 | XMS_ITS | Encounter Summary ---
Author Organization [facility] Address [address] [place] [address] Care Team Providers Care Freight Forwarder Name Role Phone Erickson Melton MD Primary Care Provider +1- [phone] Encounter Details Date Type Department Care Team (Late st Contact Info) Description 10/31/2024 Lab Requisition [facility] - Main Lab 299 [facility] [place] [address] Erickson Melton MD [address] [place] [address] Pneumonia, unspecified organism; Anemia, unspecified Social History [...] your loved ones. For example, child care associate teacher or elderly care for an older [...] mmol/L LAB CHEMISTRY METHOD 11/01/2024 11:26 AM [facility] Potassium 4.1 3.5 - 5.5 mmol/L LAB CHEMISTRY METHOD 11/01/2024 11:26 AM [facility] Chloride 102 96 - 110 mmol/L LAB CHEMISTRY METHOD 11/01/2024 11:26 AM [facility] CO2 34(H) 21 - 32 mmol/L LAB CHEMISTRY METHOD 11/01/2024 11:26 AM [facility] Anion Gap 5 3 - 11 LAB CHEMISTRY METHOD 11/01/2024 11:26 AM [facility] Glucose 86 70 - 100 mg/dL LAB CHEMISTRY METHOD 11/01/2024 11:26 AM [facility] BUN 23 5 - 25 mg/dL LAB CHEMISTRY METHOD 11/01/2024 11:26 AM [facility] Creatinine 0.74 0.50 - 1.10 mg/dL LAB CHEMISTRY METHOD 11/01/2024 11:26 AM [facility] eGFR 90 >=60 mL/min/1. 73m2 LAB CHEMISTRY METHOD 11/01/2024 11:26 AM [facility] Comment:Calculation based on the Chronic Kidney Disease Epidemiology Collaboration (CKD-EPI) equation refit without adjustment for race. BUN/Creatinine Ratio 31.1 LAB CHEMISTRY METHOD 11/01/2024 11:26 AM [facility] Calcium 8.6 8.5 - 10.5 mg/dL LAB CHEMISTRY METHOD 11/01/2024 11:26 AM [facility] Blood Venous blood specimen / Unknown Venipuncture / Unknown 11/01/2024 6:41 AM EDT 11/01/2024 10:40 AM EDT us Erickson Melton MD LAB BLOOD ORDERABLES Final Result [facility] [address] [place] [address], * (ABNORMAL) Complete blood count (11/01/2024 6:41 AM EDT) WBC 9.2 4.8 - 10.8 K/mcL LAB HEMETOLOGY METHOD 11/01/2024 10:57 AM EDT [facility] RBC 3.90 3.80 - 4.80 M/mcL LAB HEMETOLOGY METHOD 11/01/2024 10:57 AM EDT [facility] Hemoglobin 13.5 11.5 - 16.0 g/dL LAB HEMETOLOGY METHOD 11/01/2024 10:57 AM EDT [facility] Hematocrit 43.3 35.0 - 47.0 % LAB HEMETOLOGY METHOD 11/01/2024 10:57 AM EDT [facility] MCV 110.7(H) 79.0 - 98.0 FL LAB HEMETOLOGY METHOD 11/01/2024 10:57 AM EDT [facility] MCH 34.5(H) 27.0 - 32.0 pcg LAB HEMETOLOGY METHOD 11/01/2024 10:57 AM EDT [facility] MCHC 31.2(L) 32.0 - 37.0 g/dL LAB HEMETOLOGY METHOD 11/01/2024 10:57 AM EDT [facility] RDW 16.9(H) 11.0 - 15.0 % LAB HEMETOLOGY METHOD 11/01/2024 10:57 AM EDT [facility] Platelets 210 130 - 400 K/mcL LAB HEMETOLOGY METHOD 11/01/2024 10:57 AM EDT [facility] MPV 11.2(H) 7.0 - 11.0 FL LAB HEMETOLOGY METHOD 11/01/2024 10:57 AM EDT [facility] NRBC 0.0 <1.0 % LAB HEMETOLOGY METHOD 11/01/2024 10:57 AM EDT [facility] NRBC Absolute 0.00 <0.10 K/mcL LAB HEMETOLOGY METHOD 11/01/2024 10:57 AM EDT [facility] Blood Venous blood specimen / Unknown Venipuncture / Unknown 11/01/2024 6:41 AM EDT 11/01/2024 10:36 AM EDT Erickson Melton MD LAB BLOOD ORDERABLES Final Result [facility] [address] [place] [address], documented in this encounter Visit Diagnoses Diagnosis [...] documented as of this encounter Care Teams Freight Forwarder Relationship Specialty Start Date End Date Erickson Melton MD [address] [place] [id number] PCP - General Internal Medicine 09/13/24 documented as of this encounter
--- OUTSIDE RECORDS SUMMARY | 2025-03-05 00:27 | XMS_ITS | Encounter Summary ---
Author Organization [facility] Address [address] [place] [address] Care Team Providers Care Cvicu Rn Name Role Phone Erickson Melton MD Primary Care Provider +1- [phone] Encounter Details Date Type Department Care Team (Late st Contact Info) Description 09/13/2024 Lab Requisition [facility] - Main Lab 299 [facility] [place] [address] Erickson Melton MD [address] [place] [address] Anemia, unspecified; Hypothyroidism, unspecified; Other seizures (CMS/HCC [...] - 35 ug/mL 09/16/2024 12:30 PM EDT [facility] Comment: If applicable, any drug confirmation testing reported here was developed and the performance characteristics determined by [facility]. This confirmation testing has not been cleared or approved by the FDA. The laboratory is regulated under CLIA as qualified to perform high-complexity testing. This test is used for patient testing purposes. It should not be regarded as investigational or for research. Test performed at [facility], [address] , [place] [address] Yessy Coulter MD, PhD - Credit Administration Specialist Blood Venous blood specimen / Unknown Venipuncture / Unknown 09/13/2024 8:54 AM EDT 09/13/2024 10:34 AM EDT Erickson Melton MD LAB BLOOD ORDERABLES Final Result [facility] [address] [place] [address] * (ABNORMAL) Thyroid stimulating hormone (09/13/2024 8:54 AM EDT) TSH 7.10(H) 0.40 - 4.00 mcIU/mL LAB CHEMISTRY METHOD 09/13/2024 1:18 PM EDT [facility] Blood Venous blood specimen / Unknown Venipuncture / Unknown 09/13/2024 8:54 AM EDT 09/13/2024 10:34 AM EDT us Erickson Melton MD LAB BLOOD ORDERABLES Final Result [facility] [address] [place] [address], * (ABNORMAL) Comprehensive metabolic panel (09/13/2024 8:54 AM EDT) Sodium 142 133 - 145 mmol/L LAB CHEMISTRY METHOD 09/13/2024 1:41 PM [facility] Potassium 4.3 3.5 - 5.5 mmol/L LAB CHEMISTRY METHOD 09/13/2024 1:41 PM [facility] Chloride 99 96 - 110 mmol/L LAB CHEMISTRY METHOD 09/13/2024 1:41 PM [facility] CO2 36(H) 21 - 32 mmol/L LAB CHEMISTRY METHOD 09/13/2024 1:41 PM [facility] Comment:Results verified by repeat testing Anion Gap 7 3 - 11 LAB CHEMISTRY METHOD 09/13/2024 1:41 PM [facility] Glucose 105(H) 70 - 100 mg/dL LAB CHEMISTRY METHOD 09/13/2024 1:41 PM [facility] BUN 23 5 - 25 mg/dL LAB CHEMISTRY METHOD 09/13/2024 1:41 PM [facility] Creatinine 0.77 0.50 - 1.10 mg/dL LAB CHEMISTRY METHOD 09/13/2024 1:41 PM [facility] eGFR 86 >=60 mL/min/1. 73m2 LAB CHEMISTRY METHOD 09/13/2024 1:41 PM [facility] Comment:Calculation based on the Chronic Kidney Disease Epidemiology Collaboration (CKD-EPI) equation refit without adjustment for race. BUN/Creatinine Ratio 29.9 LAB CHEMISTRY METHOD 09/13/2024 1:41 PM [facility] Calcium 8.9 8.5 - 10.5 mg/dL LAB CHEMISTRY METHOD 09/13/2024 1:41 PM T [facility] AST (SGOT) 25 10 - 42 unit/L LAB CHEMISTRY METHOD 09/13/2024 1:41 PM [facility] ALT (SGPT) 24 10 - 60 unit/L LAB CHEMISTRY METHOD 09/13/2024 1:41 PM T [facility] Alkaline Phosphatase 118 42 - 121 unit/L LAB CHEMISTRY METHOD 09/13/2024 1:41 PM EDT [facility] Total Protein 6.9 6.0 - 8.0 g/dL LAB CHEMISTRY METHOD 09/13/2024 1:41 PM [facility] Albumin 2.8(L) 3.2 - 5.0 g/dL LAB CHEMISTRY METHOD 09/13/2024 1:41 PM [facility] Total Bilirubin 0.2 0.0 - 1.4 mg/dL LAB CHEMISTRY METHOD 09/13/2024 1:41 PM [facility] Blood Venous blood specimen / Unknown Venipuncture / Unknown 09/13/2024 8:54 AM EDT 09/13/2024 10:34 AM EDT Erickson Melton MD LAB BLOOD ORDERABLES Final Result [facility] [address] [place] [address], * (ABNORMAL) Complete blood count (09/13/2024 8:54 AM EDT) WBC 7.6 4.8 - 10.8 K/mcL LAB HEMETOLOGY METHOD 09/13/2024 12:06 PM [facility] RBC 3.60(L) 3.80 - 4.80 M/mcL LAB HEMETOLOGY METHOD 09/13/2024 12:06 PM [facility] Hemoglobin 12.1 11.5 - 16.0 g/dL LAB HEMETOLOGY METHOD 09/13/2024 12:06 PM EDT [facility] Hematocrit 38.2 35.0 - 47.0 % LAB HEMETOLOGY METHOD 09/13/2024 12:06 PM [facility] MCV 107.0(H) 79.0 - 98.0 FL LAB HEMETOLOGY METHOD [facility] MCH 33.9(H) 27.0 - 32.0 pcg LAB HEMETOLOGY METHOD 09/13/2024 12:06 PM [facility] MCHC 31.7(L) 32.0 - 37.0 g/dL LAB HEMETOLOGY METHOD 09/13/2024 12:06 PM [facility] RDW 14.0 11.0 - 15.0 % LAB HEMETOLOGY METHOD 09/13/2024 12:06 PM [facility] Platelets 327 130 - 400 K/mcL LAB HEMETOLOGY METHOD 09/13/2024 12:06 PM [facility] MPV 11.0 7.0 - 11.0 FL LAB HEMETOLOGY METHOD 09/13/2024 12:06 PM [facility] NRBC 0.0 <1.0 % LAB HEMETOLOGY METHOD 09/13/2024 12:06 PM [facility] NRBC Absolute 0.00 <0.10 K/mcL LAB HEMETOLOGY METHOD 09/13/2024 12:06 PM [facility] Blood Venous blood specimen / Unknown Venipuncture / Unknown 09/13/2024 8:54 AM EDT 09/13/2024 10:34 AM EDT us Erickson Melton MD LAB BLOOD ORDERABLES Final Result [facility] [address] [place] [address], documented in this encounter Visit Diagnoses Diagnosis [...] documented as of this encounter Care Teams Cvicu Rn Relationship Specialty Start Date End Date Erickson Melton MD [address] [place] [id number] PCP - General Internal Medicine 09/13/24 documented as of this encounter
--- OUTSIDE RECORDS SUMMARY | 2025-03-05 00:27 | XMS_ITS | Encounter Summary ---
Author Organization [facility] Address [address] [place] [address] Care Team Providers Care Cad Manager Name Role Phone Erickson Melton MD Primary Care Provider +1- [phone] Encounter Details Date Type Department Care Team (Late st Contact Info) Description 10/03/2024 Lab Requisition [facility] - Main Lab 299 [facility] [place] [address] Erickson Melton MD [address] [place] [address] Anemia, unspecified; Hypothyroidism, unspecified; Other seizures (CMS/HCC [...] for your loved ones. For example, children's tutor or elderly care for an older adult? [...] 10/26/2024 11/19/2024 7:04 PM EDT Respiratory Rule-Out 10/05/2024 10/05/2024 025 5:43 PM EDT COVID-19 Rule-Out 10/05/2024 10/05/2024 10/05/2024 5:43 PM EDT C. difficile Rule-Out 01/13/2025 01/13/20252024 4:32 AM EDT C. difficile Rule-Out 01/13/2025 01/13/20252024 10:19 AM EDT C. difficile 01/13/2025 01/13/2025 02/06/2025 7:06 PM EDT documented as of this encounter Care Teams Cad Manager Relationship Specialty Start Date End Date Erickson Melton MD [address] [place] [id number] PCP - General Internal Medicine 09/13/24 documented as of this encounter
[2025-03-05 00:51] LABS: Alanine Aminotransferase 12 U/L (0-31); Albumin Level 3.2 g/dL (3.5-5.0); Alkaline Phosphatase 71 U/L (39-117); Anion Gap 15 (12-20); Aspartate Amino Transferase 24 U/L (5-31); Blood Urea Nitrogen 10 mg/dL (9-16); Calcium 8.7 mg/dL (8.4-10.2); Carbon Dioxide 29 mmol/L (22-29); Chloride 103 mmol/L (96-108); Creatinine Clr Calc Pharmacy 41.1; Estimated Glomerular Filt Rate > 60; Magnesium 2.2 mg/dL (1.6-2.6); Potassium 4.0 mmol/L (3.3-5.1); Sodium 143 mmol/L (135-145); Total Protein 6.5 g/dL (6.5-8.0)
[2025-03-05] MEDS: iohexoL 350 MG/ML 100 ML INFUS..BTL 85 ML IV (01:53)
--- NOTE | 2025-03-05 03:33 | P.HPHOSP_ITS ---
History of Present Illness Date of Service: 03/05/25 Attending physician on admission: Efrain Garcia Chief Complaint: GT site issue Patient is a 64-year-old female with a past medical history significant for hypothyroidism, trisomy 21, through ensure, history CVA, G-tube dependency secondary to dysphagia and recurrent aspiration pneumonia, who presented to the ED due to a nonfunctioning G-tube per EMS. The patient had a G-tube replaced 2 days ago. Surrounding the G-tube site is red and tender to touch. The patient is unable to provide much history due to her intellectual disability, nursing home member could not offer any info either. Workup in the ED including abdominopelvic CT showed left lower lobe pneumonia possibly aspiration versus aspiration pneumonitis, and mild bilateral pleural effusions, cellulitis surrounding the G-tube site as well as rectal wall thickening ?proctitis. She was started on ceftriaxone and doxycycline in the ED for coverage of cellulitis and pneumonia. She was also given Lasix 20 mg for the bilateral pleural effusions. Her G she was tested in the ED and was functioning however does have surrounding cellulitis. Review of Systems 2 Review of Systems: Yes Unobtainable due to mental condition [facility] Medical History (Updated 03/05/25 @ 03:23 by MYRA Dominguez) G-tube site cellulitis Cutaneous candidiasis Medicare annual wellness visit, subsequent Preoperative cardiovascular examination New onset left bundle branch block (LBBB) Lethargy COVID-19 virus infection Mental status alteration Colon cancer screening Atlantoaxial instability Cholelithiasis Mental and behavioral problem Hypercholesterolemia Vitamin D deficiency Closed right ankle fracture Patent foramen ovale Hypothyroid Megaloblastic anemia CVA (cerebral vascular accident) Cataracts, bilateral Down syndrome Jorge L's disease Family History Father No problems noted. Mother Hx of cancer of lung Surgical History Clubfoot Hx of tubal ligation Hx of cataract surgery History of colonoscopy Social History Household Members: Other Household Members Other:: [facility] Housing: Other Housing Other:: senior living Do you presently have visiting nurse or other home services: Yes Unable to assess alcohol history related to: Unknown Alcohol intake: never Comment: nursing home staff at bedside Patient Tobacco Use Status: Never used Tobacco Smoked in Last 30 Days: No e-Cigarette/Vaping Use: Never Used Second Hand Smoke Exposure: No Use of substances other than those prescribed or required for medical reasons: No Advance Directives: Yes Advance Directives on File: Yes Advance Directives Date on File: 10/26/24 Nutrition Risks: Difficulty chewing, Difficulty swallowing and On aspiration precautions Patient : No service: No Current occupational status: disabled Cognitive needs: Yes (Wheelchair) Hearing needs: No Vision needs: Yes (Glasses) Meds Allergies Allergy/AdvReac Type Severity Reaction Status Date / Time Sulfa (Sulfonamide Allergy Mild HIVES Verified 03/04/25 22:46 Antibiotics) sulfamethoxazole (From Allergy Mild HIVES Verified 03/04/25 22:46 Bactrim) amoxicillin (Amoxicillin) Allergy Unknown HIVES Verified 03/04/25 22:46 Clindamycin HCl Allergy Unknown rash Verified 03/04/25 22:46 trimethoprim (From Bactrim) Allergy Unknown HIVES Verified 03/04/25 22:46 Active Medications: Current Medications Doxycycline Hyclate 100 mg/ (Sodium Chloride) 250 mls @ 166.67 mls/hr IV ONCE ONE Stop: 03/05/25 04:45 Physical Exam 2 Vital Signs and Narrative: Vital Signs: Last Vital Signs Temp 98.7 F 03/04/25 22:43 Pulse 56 03/04/25 22:43 Resp 16 03/04/25 22:43 BP 122/64 03/04/25 22:43 Pulse Ox 96 03/04/25 22:43 O2 Del Method Room Air 03/04/25 22:43 BMI result Body Mass Index 21.6 General: Alert and oriented to person, no acute distress Resp: CTA bilaterally, limited exam as patient is unable to follow commands CVS: S1, S2, RRR GI: +BS, NT, no distention Skin: Warm, dry. Erythema and warmth surrounding G-tube site Neuro: Motor grossly intact bilaterally Extremities: No pitting edema Psych: Appropriate affect Results Labs 03/04/25 23:39 03/05/25 00:31 Labs: Laboratory Results - last 24 hr 03/04/25 03/05/25 23:39 00:31 MCV 100.8 H MCH 33.9 H MCHC 33.6 RDW 17.5 H Plt Count 193 MPV 10.8 Immature Gran % (Auto) 0.5 H Neut % (Auto) 75.8 H Lymph % (Auto) 14.2 L [place] % (Auto) 7.2 Eos % (Auto) 1.7 Baso % (Auto) 0.6 Lymph # (Auto) 0.9 L [place] # (Auto) 0.5 Eos # (Auto) 0.1 Baso # (Auto) 0.0 Abs Immat Gran (auto) 0.03 Absolute Neuts (auto) 4.9 Absolute Nucleated RBC 0.000 Nucleated RBC % (auto) 0.0 Anion Gap 15 Estim Creat Clear Calc 41.1 Estimated GFR > 60 Random Glucose 96 Lactic Acid 1.6 Calcium 8.7 D Magnesium 2.2 Total Bilirubin 0.4 AST 24 ALT 12 Alkaline Phosphatase 71 Total Protein 6.5 Albumin 3.2 L Assessment and Plan (1) G-tube site cellulitis: Status: Acute (2) Aspiration pneumonia: Status: Acute Plan Patient is a 64-year-old female with a past medical history significant for hypothyroidism, trisomy 21, dementia, history CVA, G-tube dependency secondary to dysphagia, recent c diff, and recurrent aspiration pneumonia, who presented to the ED due to a nonfunctioning G-tube per EMS. G-tube/abdominal wall cellulitis - no leukocytosis, vital signs stable, lactic acid normal, blood cultures x2 pending, no sepsis - A/P CT with Consolidation in the left lower lobe consistent with pneumonia or aspiration pneumonitis. Atelectasis and possible mild additional consolidation in the right lower lobe.Minimal bilateral pleural effusions.Soft tissue induration in the abdominal wall around the subcutaneous portion of the G-tube suggestive of cellulitis. There is no abscess.Rectal wall thickening versus under distention. Mild proctitis is possible. - started on ceftriaxone and doxy in ED, continue - clotrimazole cream around G tube site - G tube functioning checked in ED, patent - monitor CBC and BMP Aspiration pneumonia - no leukocytosis, vital signs stable, lactic acid normal, blood cultures x2 pending, no sepsis - chest CT with Multifocal areas of consolidation within the lungs, most pronounced within the left lower lobe. This is most characteristic of multifocal pneumonia. Trace left pleural effusion. - on doxy and ceftriaxone, continue - given lasix 20mg x1 in ED - monitor CBC and BMP ?proctitis on CT - per med hx pt recently treated for c diff - no known diarrhea or rectal bleeding - continue to monitor hypothyroid - continue levothyroxine Hypotension - on midodrine 10 mg t.i.d., given 1x dose now pending med rec with good improvement of BP G-tube dependency - we will need G-tube feeds confirmed - on gentle IVF currently med rec pending full code (presumed from previous visits, nursing home member is calling to confirm) VTE prophy: lovenox Patient with abdominal wall cellulitis complicated by aspiration pneumonia, requiring admission for at least 2 midnight stay for IV antibiotics and monitoring. Quality Stroke Does the patient have a stroke diagnosis?: No VTE Prior VTE?: No VTE Risk Level:: Medical - moderate - high VTE Device Contraindication: Treatment Not Indicated VTE Drug Contraindication: N/A - Med Ordered
[2025-03-05] MEDS: Furosemide 20 MG/2 ML VIAL IVPUSH (03:59)
[2025-03-05] MEDS: Dextrose 5 % and 0.45 % NaCl 1,000 ML 50 ML IVCONT (07:18)
[2025-03-05] MEDS: 0.9 % Sodium Chloride Flush 3 ML SYRINGE IVFLUSH ×3 (07:19→23:40)
--- NOTE | 2025-03-05 07:54 | PC.NURSE ---
late entry, report was taken from previous rn pt currently asleep, [facility]. it was understood from report that pt was npo and being admitted for pna and cellulitus. IVF are infusing.
--- NOTE | 2025-03-05 08:20 | PHA.MEDREC ---
Addendum entered by Sara Thomson RPh 03/05/25 08:37: Reviewed by pharmacist Original Note: Pharmacy Consult ? Medication Reconciliation Pharmacy has completed the medication reconciliation.Confirmed med list with list provided by member of long term.
--- NOTE | 2025-03-05 09:11 | PC.NURSE ---
Pt has remained asleep, withdraws from light tactile stimuli but goes right back to sleep. hospitalist notified of VS, awaiting orders. her skin is pale cool and dry with clear ls and no peripheral edema. sinus yesica on monitor
--- NOTE | 2025-03-05 09:33 | PC.NURSE ---
PAC from the floor has evaluated pt, plan is to give 500ml bolus of LR and midrodine via g tube and monitor, admit changed to TELE.
[2025-03-05] MEDS: Lactated Ringers 500 ML 999 ML IV (09:35)
--- NOTE | 2025-03-05 10:30 | PM.EVENT ---
Event Note Date of Service: 03/05/25 Event Note: Assume care of the pt early in the morning. Notified by nursing that patient's heart rate was in the 40s and BP soft as 71/51. Pt primarily nonverbal but appears asymptomatic. Pt with a hx of bradycardia and hypotension. Gave pt 500cc bolus and home midodrine 10mg. BP currently 108/45. Will continue to closely monitor. Have reviewed plan by admitting provider and will have nutition see pt for tube feeding input in the setting of possible continue aspiration. Otherwise agree with plan as detailed there. Time Spent With Patient Time: Total time managing care of this patient today ____ minutes.
[2025-03-05] MEDS: Clotrimazole 1 % Cream 15 GM TUBE 1 APPL TOPICAL ×2 (15:37→22:43)
--- NOTE | 2025-03-05 20:36 | P.EN_ITS ---
Event Note Date of Service: 03/05/25 Event Note: Patient is a 64-year-old female with trisomy 21 and had a PEG tube placed in August of 2024 and had this changed over at [facility] in November. Complaints of the G-tube being leaking and causing skin breakdown and the surrounding skin and as a result we are being consulted. Patient does not eat or drink orally and gets bolus tube feeds but seems to be getting pneumonias from aspiration. Suggestions for her tube feeds--slow trickle feeds over longer period of time or smaller boluses multiple times in the day. Have patient be sitting up when gets the tube feed boluses. If still having issues consider converting the G into a gastrojejunostomy feeding tube with plan to decompress the G-gastric aspect but feed into the J aspect. As for the skin rash hold on the antifungal medication and plan on using zinc oxide at least 20% daily all around the area. We will try to secure the bolster so that it prevents the tube from falling back with laxity. Time Spent With Patient Time: Total time managing care of this patient today ____ minutes.
[2025-03-06] VITALS (9 sets, daily range): BP systolic 98–123; BP diastolic 50–81; PULSE 51–104; RESP 16–18; TEMP 34.6–36.6; O2SAT 92–98; BMI 23.0
[2025-03-06] MEDS: Dextrose 5 % and 0.45 % NaCl 1,000 ML 50 ML IVCONT ×2 (03:32→21:15)
--- NOTE | 2025-03-06 07:42 | HO.PM.IMPN ---
Subjective Subjective Date of Service: 03/06/25 Interval History: Patient continues to be mildly hypotensive however this appears to be her baseline given autonomic dysfunction Of bare hugger, mildly hypothermic-likely her baseline Patient was able to communicate yes every time I asked her if I could examine her this is likely an improvement her from her prior medical condition Seen by GI- we will likely start trickle feeds and uptitrate as tolerated Review of Systems Review of Systems: Yes Unobtainable due to mental status Physical Exam Vital Signs: Vital Signs: Last Vital Signs Temp 97.4 F 03/06/25 06:12 Pulse 53 03/06/25 04:00 Resp 16 03/06/25 04:00 BP 120/65 03/06/25 04:00 Pulse Ox 98 03/06/25 04:00 O2 Del Method Room Air 03/06/25 04:00 BMI result Body Mass Index 23.0 Objective Data Active Medications Acetaminophen (Acetaminophen 325 Mg Tablet) 650 mg G-TUBE Q6H PRN PRN Reason: Pain, Mild 1-3,fever,headache Albuterol/Ipratropium (Albuterol/Iprat 2.5/0.5mg 3 Ml Ampul.Neb) 3 ml INHALE Q6H PRN PRN Reason: Dyspnea Aspirin (Aspirin 81 Mg Tab.Chew) 81 mg G-TUBE DAILY D[facility] Calcium Carbonate (Calcium Carbonate 750 Mg Tab.Chew) 750 mg G-TUBE Q4H PRN PRN Reason: Heartburn Ceftriaxone Sodium (Ceftriaxone Sodium 1 Gm Vial) 1 gm IVPUSH Q24H COUNTS INCLUDE 234 BEDS AT THE [facility] Last Admin: 03/06/25 03:31 Dose: 1 gm Documented By: ANDREZ Clotrimazole (Clotrimazole 1 % Cream 15 Gm Tube) 1 appl TOPICAL BID DANDY; Protocol Last Admin: 03/05/25 22:43 Dose: 1 appl Documented By: GLORIA Enoxaparin Sodium (Enoxaparin Sodium 40 Mg/0.4 Ml Syringe) 40 mg SUBCUT Q24H COUNTS INCLUDE 234 BEDS AT THE [facility] Last Admin: 03/06/25 06:01 Dose: 40 mg Documented By: ANDREZ Fluticasone Propionate (Fluticasone Propionate Nasal 16 Gm [place]) 1 spray NOSTRIL-B DAILY COUNTS INCLUDE 234 BEDS AT THE [facility] Hydrocortisone (Hydrocortisone 2.5 % Rectal Cr 30 Gm Tube) 1 appl SC BID PRN PRN Reason: Hemorrhoids Dextrose/Sodium Chloride (D51/2ns) 1,000 mls @ 50 mls/hr IVCONT .Q20H COUNTS INCLUDE 234 BEDS AT THE [facility] Last Admin: 03/06/25 03:32 Dose: 50 mls/hr Documented By: ANDREZ Doxycycline Hyclate 100 mg/ (Sodium Chloride) 250 mls @ 166.67 mls/hr IV Q12H COUNTS INCLUDE 234 BEDS AT THE [facility] Last Infusion: 03/06/25 05:15 Dose: Infused Documented By: ANDREZ Levothyroxine Sodium (Levothyroxine Sodium 112 Mcg Tablet) 112 mcg G-TUBE DAILY@0600 COUNTS INCLUDE 234 BEDS AT THE [facility] Last Admin: 03/06/25 06:02 Dose: 112 mcg Documented By: ANDREZ Levothyroxine Sodium (Levothyroxine Sodium 25 Mcg Tablet) 25 mcg PO DAILY@0600 COUNTS INCLUDE 234 BEDS AT THE [facility] Last Admin: 03/06/25 06:02 Dose: 25 mcg Documented By: ANDREZ Magnesium Hydroxide (Milk Of Magnesia 30 Ml Oral.Susp) 30 ml G-TUBE DAILY PRN PRN Reason: Constipation Melatonin (Melatonin 3 Mg Tablet) 6 mg G-TUBE BEDTIME PRN PRN Reason: Insomnia Midodrine (Midodrine Hcl 10 Mg Tablet) 10 mg G-TUBE TID COUNTS INCLUDE 234 BEDS AT THE [facility] Last Admin: 03/05/25 23:17 Dose: Not Given Documented By: GLORIA Non-Admin Reason: SBP 133 Ondansetron HCl (Ondansetron Hcl 4 Mg/2 Ml Vial) 4 mg IVPUSH Q8H PRN PRN Reason: Nausea and Vomiting Oxcarbazepine (Oxcarbazepine 150 Mg Tablet) 75 mg G-TUBE BID COUNTS INCLUDE 234 BEDS AT THE [facility] Last Admin: 03/05/25 23:39 Dose: 75 mg Documented By: GLORIA Sodium Chloride (0.9 % Sodium Chloride Flush 3 Ml Syringe) 3 ml IVFLUSH QSHIFT COUNTS INCLUDE 234 BEDS AT THE [facility] Last Admin: 03/05/25 23:40 Dose: 3 ml Documented By: GLORIA Trazodone HCl (Trazodone Hcl 50 Mg Tablet) 50 mg G-TUBE BID PRN PRN Reason: behavioral disturbance/agitation Vitamin D (Cholecalciferol (Vitamin D3) 25 Mcg Tablet) 25 mcg G-TUBE DAILY COUNTS INCLUDE 234 BEDS AT THE [facility] Zinc Oxide (Zinc Oxide 20% Ointment 28.35 Gm Tube) 1 appl TOPICAL DAILY COUNTS INCLUDE 234 BEDS AT THE [facility]; Protocol Labs 03/06/25 08:09 03/06/25 09:01 Microbiology Microbiology Results: Microbiology 03/04/25 23:39 Blood Culture - Preliminary Blood - Venous No growth after 24 hours. 03/04/25 23:39 Blood Culture - Preliminary Blood - Venous No growth after 24 hours. Assessment and Plan (1) G-tube site cellulitis: Status: Acute Plan Patient is a 64-year-old female with a past medical history significant for hypothyroidism, trisomy 21, dementia, history CVA, G-tube dependency secondary to dysphagia, recent c diff, and recurrent aspiration pneumonia, who presented to the ED due to a nonfunctioning G-tube per EMS. G-tube/abdominal wall cellulitis History of C diff G-tube dependency Re-initiated G-tube feeds ? Proctitis on CT imaging Initially there was a question of GI tube area cellulitis versus displacement Surgery consulted -we will switch clotrimazole to zinc oxide per their recs CTA/P suggestive of mild abdominal wall induration suggestive of cellulitis We will continue ceftriaxone and doxy Patient is not hypoxic on room air Per surgery, the we will challenge her with trickle GI feeds and uptitrate poor tolerance Bolus fluid flushes in between No formulary probiotics, hence encouraged the staff to give probiotics in G-tube feeds- no indication for treatment for C diff at this time Left lower lobe consolidation- possible pneumonia Mild left pleural effusion-was given Lasix IV once in the ED We will continue ceftriaxone and doxycycline, deescalate based on sepsis workup Patient appears to have autonomic dysfunction causing chronically mild hypotension-appears to be asymptomatic Hypothermia-appears to be her baseline hypothyroid - continue levothyroxine Hypotension Possible autonomic dysfunction - on midodrine 10 mg t.i.d. full code (presumed from previous visits, [facility] member is calling to confirm) VTE prophy: lovenox Quality Stroke Does the patient have a stroke diagnosis?: No VTE Prior VTE?: No VTE Risk Level:: Medical - moderate - high VTE Device Contraindication: Treatment Not Indicated VTE Drug Contraindication: N/A - Med Ordered
[2025-03-06 08:17] LABS: Hematocrit 41.8 % (37.0-47.0); Hemoglobin 13.4 g/dl (12.0-16.0); Imm Gran Abs Auto 0.04 X10*3/uL (0.00-0.03); Imm Gran Pct Auto 1.5 % (0.0-0.4); Lymphocytes Absolute Auto 0.9 X10*3/uL (1.2-4.9); MANUAL DIFF FLAG SCAN; Mean Corpuscular HGB Conc 32.1 g/dl (31.0-35.0); Mean Corpuscular Hemoglobin 33.7 pg (27.0-33.0); Mean Corpuscular Volume 105.0 fL (80.0-98.0); NRBC Abs Auto 0.000 X10*3/uL (0.0-0.012); NRBC Pct Auto 0.0 /100WBC (0.0-0.2); Platelet Count 155 X10*3/uL (160-400); Red Blood Count 3.98 X10*6/uL (4.20-5.50); SCAN SMEAR FLAG 1; White Blood Count 2.7 X10*3/uL (4.8-10.8)
[2025-03-06 09:31] LABS: Anion Gap 14 (12-20); Blood Urea Nitrogen 6 mg/dL (9-16); Calcium 8.2 mg/dL (8.4-10.2); Carbon Dioxide 27 mmol/L (22-29); Chloride 105 mmol/L (96-108); Creatinine Clr Calc Pharmacy 43.2; Estimated Glomerular Filt Rate > 60; Potassium 3.7 mmol/L (3.3-5.1); Sodium 142 mmol/L (135-145)
--- NOTE | 2025-03-06 14:59 | MHC.CM.PN ---
IMM given 03/06. This CM met with pts sister/co-guardian Karyna, present at bedside, shelter employee also present in the room. Pt lives in a [facility] run shelter, she will return there via BLS once medically cleared. Per pts sister Karyna, she is the primary contact. Karyna requests we also call the manager publishing Marie at [phone]. This CM spoke with Marie the manager publishing to coordinate care, she understands that we will work with her on the pts discharge plan. PCP: Dr. Fuentes Po
--- NOTE | 2025-03-06 15:09 | MHC.CLN ---
NUTRITION PATIENT WITH PNEUMONIA AND QUESTION OF ASPIRATION FROM TUBE FEEDING. RECEIVES BOLUS TUBE FEEDINGS AT LONG TERM. RECOMMEND CONTINUOUS TUBE FEEDING, OSMOLITE 1.5 AT 30 ML PER HOUR, FREE WATER FLUSHES 120 ML Q 4 HOURS. PROVIDES 1080 KCALS (28 KCALS/KG), 45 G PROTEIN (1.2 G/KG), 1269 ML TOTAL FREE WATER FROM FORMULA AND FLUSHES (32.9 ML/KG). START TUBE FEED AT 10 ML PER HOUR. INCREASE BY 10 ML EVERY 4 HOURS TO MAX GOAL RATE 30 ML PER HOUR. FOLLOW FOR TUBE FEED TOLERANCE. SEE CLINICAL NUTRITION ASSESSMENT 03/06/25.
[2025-03-06] MEDS: 0.9 % Sodium Chloride Flush 3 ML SYRINGE IVFLUSH (17:32)
--- NOTE | 2025-03-06 18:49 | PM.PNGS ---
Subjective Subjective Date of Service: 03/06/25 Patient reports: no new complaints Interval history: pt seems more comfortable Physical Exam Vital Signs: Vital Signs: Last Vital Signs Temp 97.8 F 03/06/25 16:00 Pulse 71 03/06/25 16:00 Resp 18 03/06/25 16:00 BP 118/64 03/06/25 16:00 Pulse Ox 97 03/06/25 16:00 O2 Del Method Room Air 03/06/25 16:00 BMI result Body Mass Index 23.0 Skin: Other: the skin area around the tube is less excoriated the bolster doesn't stay secure Objective Data Active Medications Acetaminophen (Acetaminophen 325 Mg Tablet) 650 mg G-TUBE Q6H PRN PRN Reason: Pain, Mild 1-3,fever,headache Albuterol/Ipratropium (Albuterol/Iprat 2.5/0.5mg 3 Ml Ampul.Neb) 3 ml INHALE Q6H PRN PRN Reason: Dyspnea Aspirin (Aspirin 81 Mg Tab.Chew) 81 mg G-TUBE DAILY [facility] Last Admin: 03/06/25 08:41 Dose: 81 mg Documented By: JORGE Calcium Carbonate (Calcium Carbonate 750 Mg Tab.Chew) 750 mg G-TUBE Q4H PRN PRN Reason: Heartburn Ceftriaxone Sodium (Ceftriaxone Sodium 1 Gm Vial) 1 gm IVPUSH Q24H [facility] Last Admin: 03/06/25 03:31 Dose: 1 gm Documented By: ANDREZ Enoxaparin Sodium (Enoxaparin Sodium 40 Mg/0.4 Ml Syringe) 40 mg SUBCUT Q24H [facility] Last Admin: 03/06/25 06:01 Dose: 40 mg Documented By: ANDREZ Fluticasone Propionate (Fluticasone Propionate Nasal 16 Gm [place]) 1 spray NOSTRIL-B DAILY [facility] Last Admin: 03/06/25 12:15 Dose: Not Given Documented By: JORGE Non-Admin Reason: Patient Refused Hydrocortisone (Hydrocortisone 2.5 % Rectal Cr 30 Gm Tube) 1 appl [place] BID PRN PRN Reason: Hemorrhoids Dextrose/Sodium Chloride (D51/2ns) 1,000 mls @ 50 mls/hr IVCONT .Q20H [facility] Last Admin: 03/06/25 03:32 Dose: 50 mls/hr Documented By: ANDREZ Doxycycline Hyclate 100 mg/ (Sodium Chloride) 250 mls @ 166.67 mls/hr IV Q12H [facility] Last Infusion: 03/06/25 16:59 Dose: Infused Documented By: JORGE Ketorolac Tromethamine (Ketorolac Tromethamine 15 Mg/Ml Vial) 15 mg IM Q6H PRN PRN Reason: Pain, Moderate(Pain Scale 4-6) Last Admin: 03/06/25 15:28 Dose: 15 mg Documented By: JROGE Levothyroxine Sodium (Levothyroxine Sodium 112 Mcg Tablet) 112 mcg G-TUBE DAILY@0600 [facility] Last Admin: 03/06/25 06:02 Dose: 112 mcg Documented By: ANDREZ Levothyroxine Sodium (Levothyroxine Sodium 25 Mcg Tablet) 25 mcg PO DAILY@0600 [facility] Last Admin: 03/06/25 06:02 Dose: 25 mcg Documented By: ANDREZ Magnesium Hydroxide (Milk Of Magnesia 30 Ml Oral.Susp) 30 ml G-TUBE DAILY PRN PRN Reason: Constipation Melatonin (Melatonin 3 Mg Tablet) 6 mg G-TUBE BEDTIME PRN PRN Reason: Insomnia Midodrine (Midodrine Hcl 10 Mg Tablet) 10 mg G-TUBE TID [facility] Last Admin: 03/06/25 15:23 Dose: 10 mg Documented By: JORGE Ondansetron HCl (Ondansetron Hcl 4 Mg/2 Ml Vial) 4 mg IVPUSH Q8H PRN PRN Reason: Nausea and Vomiting Oxcarbazepine (Oxcarbazepine 150 Mg Tablet) 75 mg G-TUBE BID [facility] Last Admin: 03/06/25 08:41 Dose: 75 mg Documented By: JORGE Sodium Chloride (0.9 % Sodium Chloride Flush 3 Ml Syringe) 3 ml IVFLUSH QSHIFT [facility] Last Admin: 03/06/25 17:32 Dose: 3 ml Documented By: JORGE Trazodone HCl (Trazodone Hcl 50 Mg Tablet) 50 mg G-TUBE BID PRN PRN Reason: behavioral disturbance/agitation Vitamin D (Cholecalciferol (Vitamin D3) 25 Mcg Tablet) 25 mcg G-TUBE DAILY [facility] Last Admin: 03/06/25 08:41 Dose: 25 mcg Documented By: HO.CONND Zinc Oxide (Zinc Oxide 20% Ointment 28.35 Gm Tube) 1 appl TOPICAL DAILY [facility]; Protocol Last Admin: 03/06/25 12:17 Dose: 1 appl Documented By: JORGE Labs 03/06/25 08:09 03/06/25 09:01 Labs: Laboratory Results - last 24 hr 03/06/25 03/06/25 08:09 09:01 MCV 105.0 H MCH 33.7 H MCHC 32.1 RDW 17.8 H Plt Count 155 L MPV 11.3 Immature Gran % (Auto) 1.5 H Neut % (Auto) 51.3 Lymph % (Auto) 32.5 [place] % (Auto) 8.8 Eos % (Auto) 3.3 Baso % (Auto) 2.6 H Lymph # (Auto) 0.9 L [place] # (Auto) 0.2 Eos # (Auto) 0.1 Baso # (Auto) 0.1 Abs Immat Gran (auto) 0.04 H Absolute Neuts (auto) 1.4 L Absolute Nucleated RBC 0.000 Nucleated RBC % (auto) 0.0 Smear Tech's Comments VERIFIED Anion Gap 14 Estim Creat Clear Calc 43.2 Estimated GFR > 60 Random Glucose 89 Calcium 8.2 L Microbiology Microbiology Results: Microbiology 03/04/25 23:39 Blood Culture - Preliminary Blood - Venous No growth after 24 hours. 03/04/25 23:39 Blood Culture - Preliminary Blood - Venous No growth after 24 hours. Procedures Date of Service Date of Service: 03/06/25 Progress Note: A&P Assessment and plan (1) G-tube site cellulitis: Status: Acute Plan pt is doing a bit better re - skin - cont with zinc oxide spread widely to the area consider - suturing the bolster to her skin and secure around the tube so it does not slide in and out Note -- if pt aspirating causing pneumonia and needs tube feeds then consider consulting IR to do a Gastro - Jej tube where the feeds can be deposited distal to the stomach to prevent aspiration Time Spent With Patient Time: Total time managing care of this patient today ____ minutes. Quality Stroke Does the patient have a stroke diagnosis?: No VTE Prior VTE?: No VTE Risk Level:: Medical - moderate - high VTE Device Contraindication: Treatment Not Indicated VTE Drug Contraindication: N/A - Med Ordered
[2025-03-07] VITALS (7 sets, daily range): BP systolic 94–136; BP diastolic 53–68; PULSE 50–62; RESP 14–16; TEMP 36.1–36.7; O2SAT 95–98
[2025-03-07 08:07] LABS: MANUAL DIFF FLAG NO
[2025-03-07 08:13] LABS: Hematocrit 38.6 % (37.0-47.0); Hemoglobin 12.7 g/dl (12.0-16.0); Imm Gran Abs Auto 0.02 X10*3/uL (0.00-0.03); Imm Gran Pct Auto 0.5 % (0.0-0.4); Lymphocytes Absolute Auto 1.0 X10*3/uL (1.2-4.9); Mean Corpuscular HGB Conc 32.9 g/dl (31.0-35.0); Mean Corpuscular Hemoglobin 33.8 pg (27.0-33.0); Mean Corpuscular Volume 102.7 fL (80.0-98.0); NRBC Abs Auto 0.000 X10*3/uL (0.0-0.012); NRBC Pct Auto 0.0 /100WBC (0.0-0.2); Platelet Count 191 X10*3/uL (160-400); Red Blood Count 3.76 X10*6/uL (4.20-5.50); White Blood Count 4.2 X10*3/uL (4.8-10.8)
[2025-03-07 08:29] LABS: Alanine Aminotransferase 11 U/L (0-31); Albumin Level 3.0 g/dL (3.5-5.0); Alkaline Phosphatase 68 U/L (39-117); Anion Gap 13 (12-20); Aspartate Amino Transferase 30 U/L (5-31); Blood Urea Nitrogen 6 mg/dL (9-16); Calcium 8.2 mg/dL (8.4-10.2); Carbon Dioxide 26 mmol/L (22-29); Chloride 107 mmol/L (96-108); Creatinine Clr Calc Pharmacy 46.1; Estimated Glomerular Filt Rate > 60; Potassium 3.7 mmol/L (3.3-5.1); Sodium 142 mmol/L (135-145); Total Protein 6.6 g/dL (6.5-8.0)
--- NOTE | 2025-03-07 14:00 | HO.PM.IMPN ---
Subjective Subjective Date of Service: 03/07/25 Interval History: appears to be improving Review of Systems Review of Systems: Yes Unobtainable due to mental status Physical Exam Vital Signs: Vital Signs: Last Vital Signs Temp 97.5 F 03/07/25 11:53 Pulse 50 03/07/25 11:53 Resp 16 03/07/25 11:53 BP 104/61 03/07/25 11:53 Pulse Ox 97 03/07/25 11:53 O2 Del Method Room Air 03/07/25 11:53 BMI result Body Mass Index 23.0 Skin: Other: the skin area around the tube is less excoriated the bolster doesn't stay secure Objective Data Active Medications Acetaminophen (Acetaminophen 325 Mg Tablet) 650 mg G-TUBE Q6H PRN PRN Reason: Pain, Mild 1-3,fever,headache Albuterol/Ipratropium (Albuterol/Iprat 2.5/0.5mg 3 Ml Ampul.Neb) 3 ml INHALE Q6H PRN PRN Reason: Dyspnea Aspirin (Aspirin 81 Mg Tab.Chew) 81 mg G-TUBE DAILY [facility] Last Admin: 03/07/25 08:19 Dose: 81 mg Documented By: ROBER Calcium Carbonate (Calcium Carbonate 750 Mg Tab.Chew) 750 mg G-TUBE Q4H PRN PRN Reason: Heartburn Ceftriaxone Sodium (Ceftriaxone Sodium 1 Gm Vial) 1 gm IVPUSH Q24H [facility] Last Admin: 03/07/25 03:15 Dose: 1 gm Documented By: VIVIANA Enoxaparin Sodium (Enoxaparin Sodium 40 Mg/0.4 Ml Syringe) 40 mg SUBCUT Q24H [facility] Last Admin: 03/07/25 08:31 Dose: Not Given Documented By: ROBER Non-Admin Reason: Patient Refused Fluticasone Propionate (Fluticasone Propionate Nasal 16 Gm [place]) 1 spray NOSTRIL-B DAILY [facility] Last Admin: 03/07/25 08:31 Dose: Not Given Documented By: ROBER Non-Admin Reason: Patient Refused Hydrocortisone (Hydrocortisone 2.5 % Rectal Cr 30 Gm Tube) 1 appl [place] BID PRN PRN Reason: Hemorrhoids Doxycycline Hyclate 100 mg/ (Sodium Chloride) 250 mls @ 166.67 mls/hr IV Q12H [facility] Last Infusion: 03/07/25 06:03 Dose: Infused Documented By: VIVIANA Ketorolac Tromethamine (Ketorolac Tromethamine 15 Mg/Ml Vial) 15 mg IM Q6H PRN PRN Reason: Pain, Moderate(Pain Scale 4-6) Last Admin: 03/06/25 15:28 Dose: 15 mg Documented By: JORGE Levothyroxine Sodium (Levothyroxine Sodium 112 Mcg Tablet) 112 mcg G-TUBE DAILY@0600 [facility] Last Admin: 03/07/25 06:07 Dose: 112 mcg Documented By: VIVIANA Levothyroxine Sodium (Levothyroxine Sodium 25 Mcg Tablet) 25 mcg PO DAILY@0600 [facility] Last Admin: 03/07/25 06:07 Dose: 25 mcg Documented By: VIVIANA Magnesium Hydroxide (Milk Of Magnesia 30 Ml Oral.Susp) 30 ml G-TUBE DAILY PRN PRN Reason: Constipation Melatonin (Melatonin 3 Mg Tablet) 6 mg G-TUBE BEDTIME PRN PRN Reason: Insomnia Midodrine (Midodrine Hcl 10 Mg Tablet) 10 mg G-TUBE TID [facility] Last Admin: 03/07/25 08:19 Dose: 10 mg Documented By: ROBER Ondansetron HCl (Ondansetron Hcl 4 Mg/2 Ml Vial) 4 mg IVPUSH Q8H PRN PRN Reason: Nausea and Vomiting Oxcarbazepine (Oxcarbazepine 150 Mg Tablet) 75 mg G-TUBE BID [facility] Last Admin: 03/07/25 08:19 Dose: 75 mg Documented By: ROBER Sodium Chloride (0.9 % Sodium Chloride Flush 3 Ml Syringe) 3 ml IVFLUSH QSHIFT [facility] Last Admin: 03/07/25 08:20 Dose: Not Given Documented By: ROBER Non-Admin Reason: IV Running Trazodone HCl (Trazodone Hcl 50 Mg Tablet) 50 mg G-TUBE BID PRN PRN Reason: behavioral disturbance/agitation Vitamin D (Cholecalciferol (Vitamin D3) 25 Mcg Tablet) 25 mcg G-TUBE DAILY [facility] Last Admin: 03/07/25 08:19 Dose: 25 mcg Documented By: ROBER Zinc Oxide (Zinc Oxide 20% Ointment 28.35 Gm Tube) 1 appl TOPICAL DAILY [facility]; Protocol Last Admin: 03/07/25 08:19 Dose: 1 appl Documented By: ROBER Labs 03/07/25 06:59 03/07/25 06:59 Labs: Laboratory Results - last 24 hr 03/07/25 06:59 MCV 102.7 H MCH 33.8 H MCHC 32.9 RDW 17.4 H Plt Count 191 MPV 10.5 Immature Gran % (Auto) 0.5 H Neut % (Auto) 59.7 Lymph % (Auto) 22.6 [place] % (Auto) 15.0 H Eos % (Auto) 1.2 Baso % (Auto) 1.0 Lymph # (Auto) 1.0 L [place] # (Auto) 0.6 Eos # (Auto) 0.1 Baso # (Auto) 0.0 Abs Immat Gran (auto) 0.02 Absolute Neuts (auto) 2.5 Absolute Nucleated RBC 0.000 Nucleated RBC % (auto) 0.0 Anion Gap 13 Estim Creat Clear Calc 46.1 Estimated GFR > 60 Random Glucose 85 Calcium 8.2 L Total Bilirubin 0.4 AST 30 ALT 11 Alkaline Phosphatase 68 Total Protein 6.6 Albumin 3.0 L Microbiology Microbiology Results: Microbiology 03/04/25 23:39 Blood Culture - Preliminary Blood - Venous No growth after 48 hours. 03/04/25 23:39 Blood Culture - Preliminary Blood - Venous No growth after 48 hours. Assessment and Plan (1) G-tube site cellulitis: Status: Acute Plan Patient is a 64-year-old female with a past medical history significant for hypothyroidism, trisomy 21, dementia, history CVA, G-tube dependency secondary to dysphagia, recent c diff, and recurrent aspiration pneumonia, who presented to the ED due to a nonfunctioning G-tube per EMS - currently being challenged with diet and once resolved can DC. HDS is at her baseline G-tube/abdominal wall cellulitis History of C diff G-tube dependency Re-initiated G-tube feeds ? Proctitis on CT imaging Initially there was a question of GI tube area cellulitis versus displacement - appears to be more of a cellulitis given imgaing and response to abx Surgery consulted -we will switch clotrimazole to zinc oxide per their recs CTA/P suggestive of mild abdominal wall induration suggestive of cellulitis We will continue ceftriaxone and doxy Patient is not hypoxic on room air Per surgery, the we will challenge her with trickle GI feeds and uptitrate poor tolerance Bolus fluid flushes in between No formulary probiotics, hence encouraged the staff to give probiotics in G-tube feeds- no indication for treatment for C diff at this time Left lower lobe consolidation- possible pneumonia Mild left pleural effusion-was given Lasix IV once in the ED We will continue ceftriaxone and doxycycline, deescalate based on sepsis workup Patient appears to have autonomic dysfunction causing chronically mild hypotension-appears to be asymptomatic Hypothermia-appears to be her baseline hypothyroid - continue levothyroxine Hypotension Possible autonomic dysfunction - on midodrine 10 mg t.i.d. full code (presumed from previous visits, custodial member is calling to confirm) VTE prophy: Blockboard Quality Stroke Does the patient have a stroke diagnosis?: No VTE Prior VTE?: No VTE Risk Level:: Medical - moderate - high VTE Device Contraindication: Treatment Not Indicated VTE Drug Contraindication: N/A - Med Ordered
--- NOTE | 2025-03-07 15:56 | PC.NURSE ---
Assumed care at 0700 - pt from intermediate - no accompanying staff at bedside. Patient alert to person - unable to answer additional question - requires frequent redirection, uncooperative w/ care. Pt refusing AM lovenox. Edema to left hand below IV noted - IV patent. Worsening edema w/ bruising noted to left extremity noted - IV paused and removed - MD notified - US Venous ordered and pending - #20g ultrasound guided placed to DANIE - L extremity elevated and ice packs attempted but pt noncompliant. Care ongoing.
[2025-03-07] MEDS: 0.9 % Sodium Chloride Flush 3 ML SYRINGE IVFLUSH (20:52)
--- NOTE | 2025-03-07 21:03 | PC.NURSE ---
Notified Dr. Plunkett of pt. US left arm results: positive for DVT. Dr. Plunkett to look at report. Pt. on Lovenox q24hrs and refused dose this AM. Dr. Plunkett informed of this as well.
[2025-03-08] VITALS (8 sets, daily range): BP systolic 92–124; BP diastolic 54–80; PULSE 47–63; RESP 14–19; TEMP 36.1–36.6; O2SAT 96–99
[2025-03-08 08:07] LABS: Hematocrit 35.4 % (37.0-47.0); Hemoglobin 11.5 g/dl (12.0-16.0); Imm Gran Abs Auto 0.00 X10*3/uL (0.00-0.03); Imm Gran Pct Auto 0.0 % (0.0-0.4); Lymphocytes Absolute Auto 0.7 X10*3/uL (1.2-4.9); MANUAL DIFF FLAG SCAN; Mean Corpuscular HGB Conc 32.5 g/dl (31.0-35.0); Mean Corpuscular Hemoglobin 33.5 pg (27.0-33.0); Mean Corpuscular Volume 103.2 fL (80.0-98.0); NRBC Abs Auto 0.000 X10*3/uL (0.0-0.012); NRBC Pct Auto 0.0 /100WBC (0.0-0.2); Platelet Count 203 X10*3/uL (160-400); Red Blood Count 3.43 X10*6/uL (4.20-5.50); SCAN SMEAR FLAG 1
[2025-03-08 08:09] LABS: White Blood Count 2.5 X10*3/uL (4.8-10.8)
--- NOTE | 2025-03-08 08:16 | P.PNIM_ITS ---
Subjective Subjective Date of Service: 03/08/25 Interval History: Pt at goal TF, clinically back to baseline Spoke to wholesale manager - she needs some paperwork to sort through along with [place] [facility] [place] return to Review of Systems Review of Systems: Yes Unobtainable due to mental condition and Unobtainable due to mental status Physical Exam 2 Exam: Exam: G tube site - C/D/I Pt was resting peacefully at bedside Vital Signs: Vital Signs: Last Vital Signs Temp 97.8 F 03/08/25 08:00 Pulse 55 03/08/25 08:00 Resp 16 03/08/25 08:00 BP 100/58 L 03/08/25 08:00 Pulse Ox 96 03/08/25 08:00 O2 Del Method Room Air 03/08/25 08:00 BMI result Body Mass Index 23.0 Skin: Other: the skin area around the tube is less excoriated the bolster doesn't stay secure Objective Data Active Medications Acetaminophen (Acetaminophen 325 Mg Tablet) 650 mg G-TUBE Q6H PRN PRN Reason: Pain, Mild 1-3,fever,headache Albuterol/Ipratropium (Albuterol/Iprat 2.5/0.5mg 3 Ml Ampul.Neb) 3 ml INHALE Q6H PRN PRN Reason: Dyspnea Aspirin (Aspirin 81 Mg Tab.Chew) 81 mg G-TUBE DAILY [facility] Last Admin: 03/07/25 08:19 Dose: 81 mg Documented By: ROBER Calcium Carbonate (Calcium Carbonate 750 Mg Tab.Chew) 750 mg G-TUBE Q4H PRN PRN Reason: Heartburn Ceftriaxone Sodium (Ceftriaxone Sodium 1 Gm Vial) 1 gm IVPUSH Q24H [facility] Last Admin: 03/08/25 05:51 Dose: Not Given Documented By: THAD Non-Admin Reason: no iv-dr. rivero aware Enoxaparin Sodium (Enoxaparin Sodium 40 Mg/0.4 Ml Syringe) 40 mg SUBCUT Q24H [facility] Last Admin: 03/07/25 08:31 Dose: Not Given Documented By: ROBER Non-Admin Reason: Patient Refused Fluticasone Propionate (Fluticasone Propionate Nasal 16 Gm [place]) 1 spray NOSTRIL-B DAILY [facility] Last Admin: 03/07/25 08:31 Dose: Not Given Documented By: ROBER Non-Admin Reason: Patient Refused Hydrocortisone (Hydrocortisone 2.5 % Rectal Cr 30 Gm Tube) 1 appl [place] BID PRN PRN Reason: Hemorrhoids Doxycycline Hyclate 100 mg/ (Sodium Chloride) 250 mls @ 166.67 mls/hr IV Q12H [facility] Last Admin: 03/08/25 05:51 Dose: Not Given Documented By: THAD Non-Admin Reason: no iv dr. rivero aware Peg form given Ketorolac Tromethamine (Ketorolac Tromethamine 15 Mg/Ml Vial) 15 mg IM Q6H PRN PRN Reason: Pain, Moderate(Pain Scale 4-6) Last Admin: 03/06/25 15:28 Dose: 15 mg Documented By: JORGE Levothyroxine Sodium (Levothyroxine Sodium 112 Mcg Tablet) 112 mcg G-TUBE DAILY@0600 [facility] Last Admin: 03/08/25 04:21 Dose: 112 mcg Documented By: THAD Levothyroxine Sodium (Levothyroxine Sodium 25 Mcg Tablet) 25 mcg PO DAILY@0600 [facility] Last Admin: 03/08/25 04:21 Dose: 25 mcg Documented By: THAD Magnesium Hydroxide (Milk Of Magnesia 30 Ml Oral.Susp) 30 ml G-TUBE DAILY PRN PRN Reason: Constipation Melatonin (Melatonin 3 Mg Tablet) 6 mg G-TUBE BEDTIME PRN PRN Reason: Insomnia Last Admin: 03/07/25 20:51 Dose: 6 mg Documented By: THAD Midodrine (Midodrine Hcl 10 Mg Tablet) 10 mg G-TUBE TID [facility] Last Admin: 03/07/25 20:52 Dose: 10 mg Documented By: THAD Ondansetron HCl (Ondansetron Hcl 4 Mg/2 Ml Vial) 4 mg IVPUSH Q8H PRN PRN Reason: Nausea and Vomiting Oxcarbazepine (Oxcarbazepine 150 Mg Tablet) 75 mg G-TUBE BID [facility] Last Admin: 03/07/25 20:52 Dose: 75 mg Documented By: THAD Sodium Chloride (0.9 % Sodium Chloride Flush 3 Ml Syringe) 3 ml IVFLUSH QSHIFT [facility] Last Admin: 03/07/25 20:52 Dose: 3 ml Documented By: THAD Trazodone HCl (Trazodone Hcl 50 Mg Tablet) 50 mg G-TUBE BID PRN PRN Reason: behavioral disturbance/agitation Vitamin D (Cholecalciferol (Vitamin D3) 25 Mcg Tablet) 25 mcg G-TUBE DAILY [facility] Last Admin: 03/07/25 08:19 Dose: 25 mcg Documented By: ROBER Zinc Oxide (Zinc Oxide 20% Ointment 28.35 Gm Tube) 1 appl TOPICAL DAILY [facility]; Protocol Last Admin: 03/07/25 08:19 Dose: 1 appl Documented By: ROBER Labs 03/08/25 07:37 03/08/25 07:37 Labs: Laboratory Results - last 24 hr 03/07/25 03/08/25 06:59 07:37 MCV 103.2 H MCH 33.5 H MCHC 32.5 RDW 17.3 H Plt Count 203 MPV 10.4 Anion Gap 13 Estim Creat Clear Calc 46.1 Estimated GFR > 60 Random Glucose 85 Calcium 8.2 L Total Bilirubin 0.4 AST 30 ALT 11 Alkaline Phosphatase 68 Total Protein 6.6 Albumin 3.0 L Assessment and Plan (1) G-tube site cellulitis: Status: Acute Plan Patient is a 64-year-old female with a past medical history significant for hypothyroidism, trisomy 21, dementia, history CVA, G-tube dependency secondary to dysphagia, recent c diff, and recurrent aspiration pneumonia, who presented to the ED due to a nonfunctioning G-tube per EMS - currently being challenged with diet and once resolved can DC. HDS is at her baseline G-tube/abdominal wall cellulitis History of C diff G-tube dependency Re-initiated G-tube feeds ? Proctitis on CT imaging Pt at goal TF, clinically back to baseline Spoke to wholesale manager - she needs some paperwork to sort through along with [place] [facility] [place] to return [place] Surgery consulted -zinc oxide topical to G tube area CTA/P suggestive of mild abdominal wall induration suggestive of cellulitis We will stop all abx given Cdiff history and resolution of presumed cellulitis No formulary probiotics, hence encouraged the staff to give probiotics in G- tube feeds- no indication for treatment for C diff at this time Left lower lobe consolidation- possible pneumonia -resolved Mild left pleural effusion-was given Lasix IV once in the ED We will stop all abx given Cdiff history and resolution of presumed cellulitis Patient appears to have autonomic dysfunction causing chronically mild hypotension-appears to be asymptomatic Hypothermia-appears to be her baseline hypothyroid - continue levothyroxine Hypotension Possible autonomic dysfunction - on midodrine 10 mg t.i.d. VTE prophy: lovenox Quality Stroke Does the patient have a stroke diagnosis?: No VTE Prior VTE?: No VTE Risk Level:: Medical - moderate - high VTE Device Contraindication: Treatment Not Indicated VTE Drug Contraindication: N/A - Med Ordered
[2025-03-08 08:26] LABS: Alanine Aminotransferase 9 U/L (0-31); Albumin Level 2.8 g/dL (3.5-5.0); Alkaline Phosphatase 62 U/L (39-117); Anion Gap 9 (12-20); Aspartate Amino Transferase 28 U/L (5-31); Blood Urea Nitrogen 7 mg/dL (9-16); Calcium 8.0 mg/dL (8.4-10.2); Carbon Dioxide 28 mmol/L (22-29); Chloride 110 mmol/L (96-108); Creatinine Clr Calc Pharmacy 46.8; Estimated Glomerular Filt Rate > 60; Potassium 3.8 mmol/L (3.3-5.1); Sodium 143 mmol/L (135-145); Total Protein 6.0 g/dL (6.5-8.0)
--- NOTE | 2025-03-08 11:03 | MHC.CLN ---
F/U TF RUNNING AT MAX GOAL RATE-TOLERATING WELL PER NSG REVIEWED LABS CONTINUE OSMOLITE 1.5 TF AT 30 ML PER HOUR WITH 120 ML Q 4 HOURS FREE WATER FLUSHES PROVIDES 1080 KCALS (28 KCALS/KG), 45 G PROTEIN (1.2 G/KG), 1269 ML TOTAL FREE WATER FROM FORMULA AND FLUSHES (32.9 ML/KG) MONITOR TOLERANCE AND LYTES
--- NOTE | 2025-03-08 14:31 | MHC.CM.PN ---
Pt. has been medically cleared to DC, CM has contacted usp nurse, Marie, she had many questions, and forms needed to be completed for pt. to DC to home, awaiting those questions and forms to be sent to KAMAR from Marie.
[2025-03-09] VITALS (9 sets, daily range): BP systolic 98–149; BP diastolic 52–85; PULSE 50–60; RESP 14–18; TEMP 36.1–36.8; O2SAT 93–100
[2025-03-09 06:56] LABS: MANUAL DIFF FLAG NO
[2025-03-09 07:08] LABS: Hematocrit 38.3 % (37.0-47.0); Hemoglobin 12.2 g/dl (12.0-16.0); Imm Gran Abs Auto 0.02 X10*3/uL (0.00-0.03); Imm Gran Pct Auto 0.5 % (0.0-0.4); Lymphocytes Absolute Auto 0.9 X10*3/uL (1.2-4.9); Mean Corpuscular HGB Conc 31.9 g/dl (31.0-35.0); Mean Corpuscular Hemoglobin 32.9 pg (27.0-33.0); Mean Corpuscular Volume 103.2 fL (80.0-98.0); NRBC Abs Auto 0.000 X10*3/uL (0.0-0.012); NRBC Pct Auto 0.0 /100WBC (0.0-0.2); Platelet Count 204 X10*3/uL (160-400); Red Blood Count 3.71 X10*6/uL (4.20-5.50); White Blood Count 3.7 X10*3/uL (4.8-10.8)
[2025-03-09 07:28] LABS: Alanine Aminotransferase 14 U/L (0-31); Albumin Level 3.2 g/dL (3.5-5.0); Alkaline Phosphatase 67 U/L (39-117); Anion Gap 12 (12-20); Aspartate Amino Transferase 34 U/L (5-31); Blood Urea Nitrogen 9 mg/dL (9-16); Calcium 8.6 mg/dL (8.4-10.2); Carbon Dioxide 29 mmol/L (22-29); Chloride 105 mmol/L (96-108); Creatinine Clr Calc Pharmacy 46.8; Estimated Glomerular Filt Rate > 60; Potassium 3.8 mmol/L (3.3-5.1); Sodium 142 mmol/L (135-145); Total Protein 6.7 g/dL (6.5-8.0)
--- NOTE | 2025-03-09 08:58 | P.DS_ITS ---
DS: Providers Provider Date of Service: 03/09/25 Date of admission: 03/05/25 03:30 Date of discharge: 03/09/25 Primary care physician: Alfredo Walls MD Consults: 03/05/25 15:47 Consult to General Surgery Routine Consulting Provider: [facility] Reason for consultation: Stomach contents leaking around PEG tube, eval for button PEG? DS: Diagnosis Discharge Diagnosis (1) G-tube site cellulitis: Status: Acute DS: Summary Time Attestation Discharge Coordination Time (in mins): 35 Quality: Safe Use of Opioids Does Pt have an Active Cancer Diagnosis on the Problem List?: No Quality: Stroke Does the patient have a stroke diagnosis?: No Physical Exam Exam: Exam: G tube site - C/D/I Pt was resting peacefully at bedside Vital Signs: Vital Signs: Last Vital Signs Temp 97.0 F 03/09/25 07:46 Pulse 56 03/09/25 07:46 Resp 16 03/09/25 07:46 BP 99/63 03/09/25 07:46 Pulse Ox 93 03/09/25 07:46 O2 Del Method Room Air 03/09/25 07:46 BMI result Body Mass Index 23.0 Skin: Other: the skin area around the tube is less excoriated the bolster doesn't stay secure DS: Data Data Completed and Pending Completed studies during hospitalization [Text1]: Procedures Insertion of Endotracheal Airway into Trachea, Via Natural or Artificial Opening (08/24/24) Insertion of Feeding Device into Stomach, Percutaneous Approach (08/24/24) Introduction of Vasopressor into Peripheral Vein, Percutaneous Approach (08/24/24) Respiratory Ventilation, 24-96 Consecutive Hours (08/24/24) Respiratory Ventilation, Less than 24 Consecutive Hours (08/24/24) Labs on day of discharge: Laboratory Results - last 24 hr 03/09/25 06:39 WBC 3.7 L RBC 3.71 L Hgb 12.2 Hct 38.3 MCV 103.2 H MCH 32.9 MCHC 31.9 RDW 17.5 H Plt Count 204 MPV 10.4 Immature Gran % (Auto) 0.5 H Neut % (Auto) 61.2 Lymph % (Auto) 22.8 [place] % (Auto) 12.3 H Eos % (Auto) 2.1 Baso % (Auto) 1.1 Lymph # (Auto) 0.9 L [place] # (Auto) 0.5 Eos # (Auto) 0.1 Baso # (Auto) 0.0 Abs Immat Gran (auto) 0.02 Absolute Neuts (auto) 2.3 Absolute Nucleated RBC 0.000 Nucleated RBC % (auto) 0.0 Sodium 142 Potassium 3.8 Chloride 105 Carbon Dioxide 29 Anion Gap 12 BUN 9 Creatinine 0.58 Estim Creat Clear Calc 46.8 Estimated GFR > 60 Random Glucose 86 Calcium 8.6 D Total Bilirubin 0.3 AST 34 H ALT 14 Alkaline Phosphatase 67 Total Protein 6.7 Albumin 3.2 L Preliminary micro results at discharge 03/04/25 23:39 Blood Culture - Preliminary Blood - Venous No growth after 48 hours. 03/04/25 23:39 Blood Culture - Preliminary Blood - Venous No growth after 48 hours. Discharge Plan Discharge Anticipated Discharge Date/Time: 03/09/25 13:59 Patient Disposition: Home Health Service Discharge Diagnosis: G-tube site cellulitis/pneumonia-resolved Referrals: Po,Alfredo Khalil MD [Primary Care Provider, Internal Medicine] - 1 Week Discharge Medications: New zinc oxide 20 % Ointment 1 appl topical DAILY Qty: 2043.8 0RF Protocol: Apply to: Apply to: gtube site of irritation Continued cholecalciferol (vitamin D3) 25 mcg (1,000 unit) tablet 25 mcg feeding tube DAILY Qty: 30 12RF fluticasone propionate 50 mcg/actuation spray,suspension 1 spray intranasal DAILY Qty: 16 12RF hydrocortisone [Proctosol HC] 2.5 % cream with perineal applicator 1 appl [place] BID PRN (Reason: hemorrhoids) Qty: 30 0RF ipratropium-albuterol 0.5 mg-3 mg(2.5 mg base)/3 mL solution for nebulization 3 ml INHALATION Q6H PRN (Reason: Dyspnea) Qty: 90 0RF oxcarbazepine 150 mg tablet 75 mg feeding tube BID 30 Days Qty: 30 3RF aspirin 81 mg tablet,chewable 81 mg feeding tube DAILY Qty: 90 3RF midodrine 5 mg tablet 10 mg feeding tube TID Qty: 90 0RF Rx Instructions: hold for SBP >130 calcium carbonate-vitamin D3 600 mg-10 mcg (400 unit) tablet 1 tab PO BID@1600,2000 Qty: 60 12RF Acidophilus Capsule 10 mg feeding tube DAILY Qty: 30 12RF levothyroxine [Synthroid] 137 mcg tablet 137 mcg feeding tube DAILY@0600 Qty: 30 5RF acetaminophen 650 mg/20.3 mL solution 640 mg feeding tube Q4H PRN (Reason: fever or pain) trazodone 50 mg tablet 50 mg feeding tube BID PRN (Reason: behavioral disturbance/agitation) clotrimazole 1 % cream 1 appl topical BID Qty: 30 0RF Discharge Orders: Discharge Order (Routine); Ordered 03/09/25 Ordered By: Kera Salinas Diet: TF RUNNING AT MAX GOAL RA Activity on Discharge: As tolerated Stand Alone Forms: Patient Portal Discharge page Print Language: [place] Activity Restrictions/Additional Instructions: G-tube/abdominal wall cellulitis resolved History of C diff stable G-tube dependency chronic Re-initiated G-tube feeds tolerating well ? Proctitis on CT imaging -no current concerns Patient is a 64-year-old female with a past medical history significant for hypothyroidism, trisomy 21, dementia, history CVA, G-tube dependency secondary to dysphagia, recent c diff, and recurrent aspiration pneumonia, who presented to the ED due to a nonfunctioning G-tube per EMS . She was thought to have sepsis secondary to G-tube site cellulitis versus pneumonia as a possible etiology versus her chronic confusion/baseline which might have led to her site G-tube being dislodged. She was treated on broad-spectrum antibiotics for 4 days with good resolution. Surgery was consulted with G-tube and deemed it functional and no surgical management was needed during this hospitalization. Wound Care consulted wound care instructions as below. She is not being sent on antibiotics as the site seems to be healing well and she is tolerating the feeds for the past 3 days prior to discharge. She is at her baseline hemodynamic status-mildly soft blood pressure (90/50) bradycardic, hypothermic and is awake and interactive at these pressures and vitals at her baseline. She was challenged with diet for the past 3 days and has since tolerated it. manager architectural for any has been spoken to and they are in agreement with this current plan. currently being challenged with diet and once resolved can DC. HDS is at her baseline Left lower lobe consolidation- possible pneumonia -resolved Mild left pleural effusion-was given Lasix IV once in the ED Autonomic dysfunction-hypotensive, bradycardic, hypothermic appears to be her baseline She was initially treated with 4 days of antibiotics, and it was stopped prior to discharge given her history of C diff we did not want her to have a flare. She was not hypoxic at room air which is her baseline hypothyroid - continue levothyroxine Hypotension Possible autonomic dysfunction - on midodrine 10 mg t.i.d. Superficial arm DVT Likely provoked in the setting of infiltrated IV site-deemed superficial, would follow up with outpatient scan in about 1-2 3 months, outpatient workup. Risks versus benefits weight and patient would benefit from not starting anticoagulation given high has bled score VTE prophy: Was maintained with lovenox F/U TF RUNNING AT MAX GOAL RATE-TOLERATING WELL PER NSG REVIEWED LABS CONTINUE OSMOLITE 1.5 TF AT 30 ML PER HOUR WITH 120 ML Q 4 HOURS FREE WATER FLUSHES PROVIDES 1080 KCALS (28 KCALS/KG), 45 G PROTEIN (1.2 G/KG), 1269 ML TOTAL FREE WATER FROM FORMULA AND FLUSHES (32.9 ML/KG) MONITOR TOLERANCE AND LYTES Topical Wound Care Recommendations: Abdomen / G Tube site - Cleanse with Normal saline pat dry. Apply [place] skin protectant every other day, allow to dry. Cover skin under G-tube with Hydrocolloid (4x 4 square) with drain split cut, hold for a few seconds to ensure seal. Place gauze under bumper over hydrocolloid.? There should be ? - 1cm of laxity between entry point and the bumper to prevent ulceration.??Push bumper towards skin to minimize space not more than 1cm. Change hydrocolloid every other day and PRN. Change drain gauze sponges twice a day and as needed when wet. Care Plan Goals: Wound care healing Encouraged to have probiotics Health Concerns: See above Plan of Treatment: See above Assessment: See above
--- NOTE | 2025-03-09 11:48 | HO.WOUND ---
Wound Consult: Initial 64yr old?female admitted to [facility] on 03/05/25 03:30- See progress notes and H&P for detailed history.? Wound consult placed for Gtube site skin break down.? arrival to bedside patient was alone in room - she lives in a [facility]ci and is set for d./c today. Provider requested skin around G tube be assessed and topical recommendations made prior to d/c. Patient was alert and awake but did not converse with this engineering writer - she was agreeable to assessment.? G tube at resting position - skin folds creating space for bumper to extend and pooling of drainage / tube feeding Inferior skin break down Superior skin break down With Hydrocolloid in use - allows skin to have less creases improving dressing and skin healing. GTube Etiology: MASD?? Wound Bed: scattered open areas under and around g-tube, red pink moist wound bed Drainage / Odor: difficult to assess drainage from tube feeding vs drainage - yellow [place] mucus consistency Edges: ? irregular Janet wound: ?red pink improving erythema per chart review No Induration, Fluctuance or Warmth noted Pain: tender to touch per pt grimacing Goals of Treatment: ? Protect tissue from moisture and friction Recommendations: Abdomen / G Tube site - Cleanse with Normal saline pat dry. Apply [place] skin protectant every other day, allow to dry. Cover skin under G-tube with Hydrocolloid (4x 4 square) with drain split cut, hold for a few seconds to ensure seal. Place gauze under bumper over hydrocolloid.? There should be ? - 1cm of laxity between entry point and the bumper to prevent ulceration.??Push bumper towards skin to minimize space not more than 1cm. Change hydrocolloid every other day and PRN. Change drain gauze sponges twice a day and as needed when wet. Re-consult wound care Nurse for wound deterioration or wound changes.
--- NOTE | 2025-03-09 13:49 | MHC.CM.PN ---
Addendum entered by Elisha Figueroa 03/09/25 14:38: Per group controller Mraie, they need to cancel the discharge for today as they are still waiting for their nurse to write the wound care orders, and need to verify the tube feeding orders as well among other factors. BLS cancelled. Pts sister/co-guardian Karyna was called and notified. Hospitalist notified. Original Note: Pt is medically cleared for discharge back to her snf. This CM spoke with Marie the group controller. Marie requested a wound care consult which was completed, wound care recommendations sent to Marie and their nurse is writing up the orders per [place] regulations. Awaiting orders for MD to sign for the snf. Marie requested the pt return to the snf prior to 3pm. BLS/[facility] booked for 2:30pm today. This CM spoke with pts sister/co-guardian Karyna to discuss discharge plans, she is aware and in agreement with the discharge plan. Second IMM given 03/09, addressed with Karyna.
--- NOTE | 2025-03-09 14:46 | P.PNIM_ITS ---
Subjective Subjective Date of Service: 03/09/25 Interval History: Patient was initially supposed to be discharged today, [facility] needs further instructions specifically for tube feeds and wound care and hence she will continues to to stay inpatient today Review of Systems Review of Systems: Yes Unobtainable due to mental condition and Unobtainable due to mental status Physical Exam 2 Exam: Exam: G tube site - C/D/I Pt was resting peacefully at bedside Vital Signs: Vital Signs: Last Vital Signs Temp 97.9 F 03/09/25 11:44 Pulse 54 03/09/25 11:44 Resp 16 03/09/25 11:44 BP 107/57 L 03/09/25 11:44 Pulse Ox 99 03/09/25 11:44 O2 Del Method Room Air 03/09/25 11:44 BMI result Body Mass Index 23.0 Skin: Other: the skin area around the tube is less excoriated the bolster doesn't stay secure Objective Data Active Medications Acetaminophen (Acetaminophen 325 Mg Tablet) 650 mg G-TUBE Q6H PRN PRN Reason: Pain, Mild 1-3,fever,headache Albuterol/Ipratropium (Albuterol/Iprat 2.5/0.5mg 3 Ml Ampul.Neb) 3 ml INHALE Q6H PRN PRN Reason: Dyspnea Aspirin (Aspirin 81 Mg Tab.Chew) 81 mg G-TUBE DAILY ON LICENSE OF [facility] Last Admin: 03/09/25 09:10 Dose: 81 mg Documented By: CHARLOTTE Calcium Carbonate (Calcium Carbonate 750 Mg Tab.Chew) 750 mg G-TUBE Q4H PRN PRN Reason: Heartburn Doxycycline Monohydrate (Doxycycline Monohydrate 100 Mg Capsule) 100 mg PO Q12H ON LICENSE OF [facility] Last Admin: 03/09/25 05:02 Dose: 100 mg Documented By: THAD Enoxaparin Sodium (Enoxaparin Sodium 40 Mg/0.4 Ml Syringe) 40 mg SUBCUT Q24H ON LICENSE OF [facility] Last Admin: 03/09/25 09:09 Dose: 40 mg Documented By: CHARLOTTE Fluticasone Propionate (Fluticasone Propionate Nasal 16 Gm [place]) 1 spray NOSTRIL-B DAILY ON LICENSE OF [facility] Last Admin: 03/09/25 09:12 Dose: Not Given Documented By: CHARLOTTE Non-Admin Reason: called pharmacy Hydrocortisone (Hydrocortisone 2.5 % Rectal Cr 30 Gm Tube) 1 appl [place] BID PRN PRN Reason: Hemorrhoids Ketorolac Tromethamine (Ketorolac Tromethamine 15 Mg/Ml Vial) 15 mg IM Q6H PRN PRN Reason: Pain, Moderate(Pain Scale 4-6) Last Admin: 03/06/25 15:28 Dose: 15 mg Documented By: JORGE Levothyroxine Sodium (Levothyroxine Sodium 112 Mcg Tablet) 112 mcg G-TUBE DAILY@0600 ON LICENSE OF [facility] Last Admin: 03/09/25 05:06 Dose: 112 mcg Documented By: THAD Levothyroxine Sodium (Levothyroxine Sodium 25 Mcg Tablet) 25 mcg PO DAILY@0600 ON LICENSE OF [facility] Last Admin: 03/09/25 05:06 Dose: 25 mcg Documented By: THAD Magnesium Hydroxide (Milk Of Magnesia 30 Ml Oral.Susp) 30 ml G-TUBE DAILY PRN PRN Reason: Constipation Melatonin (Melatonin 3 Mg Tablet) 6 mg G-TUBE BEDTIME PRN PRN Reason: Insomnia Last Admin: 03/07/25 20:51 Dose: 6 mg Documented By: THAD Midodrine (Midodrine Hcl 10 Mg Tablet) 10 mg G-TUBE TID ON LICENSE OF [facility] Last Admin: 03/09/25 09:11 Dose: 10 mg Documented By: CHARLOTTE Ondansetron HCl (Ondansetron Hcl 4 Mg/2 Ml Vial) 4 mg IVPUSH Q8H PRN PRN Reason: Nausea and Vomiting Oxcarbazepine (Oxcarbazepine 150 Mg Tablet) 75 mg G-TUBE BID ON LICENSE OF [facility] Last Admin: 03/09/25 09:10 Dose: 75 mg Documented By: CHARLOTTE Sodium Chloride (0.9 % Sodium Chloride Flush 3 Ml Syringe) 3 ml IVFLUSH QSHIFT ON LICENSE OF [facility] Last Admin: 03/09/25 09:08 Dose: Not Given Documented By: CHARLOTTE Non-Admin Reason: No Access Trazodone HCl (Trazodone Hcl 50 Mg Tablet) 50 mg G-TUBE BID PRN PRN Reason: behavioral disturbance/agitation Vitamin D (Cholecalciferol (Vitamin D3) 25 Mcg Tablet) 25 mcg G-TUBE DAILY ON LICENSE OF [facility] Last Admin: 03/09/25 09:27 Dose: 25 mcg Documented By: CHARLOTTE Zinc Oxide (Zinc Oxide 20% Ointment 28.35 Gm Tube) 1 appl TOPICAL DAILY [facility]; Protocol Last Admin: 03/09/25 09:12 Dose: 1 appl Documented By: CHARLOTTE Labs 03/09/25 06:39 03/09/25 06:39 Labs: Laboratory Results - last 24 hr 03/09/25 06:39 MCV 103.2 H MCH 32.9 MCHC 31.9 RDW 17.5 H Plt Count 204 MPV 10.4 Immature Gran % (Auto) 0.5 H Neut % (Auto) 61.2 Lymph % (Auto) 22.8 [place] % (Auto) 12.3 H Eos % (Auto) 2.1 Baso % (Auto) 1.1 Lymph # (Auto) 0.9 L [place] # (Auto) 0.5 Eos # (Auto) 0.1 Baso # (Auto) 0.0 Abs Immat Gran (auto) 0.02 Absolute Neuts (auto) 2.3 Absolute Nucleated RBC 0.000 Nucleated RBC % (auto) 0.0 Anion Gap 12 Estim Creat Clear Calc 46.8 Estimated GFR > 60 Random Glucose 86 Calcium 8.6 D Total Bilirubin 0.3 AST 34 H ALT 14 Alkaline Phosphatase 67 Total Protein 6.7 Albumin 3.2 L Assessment and Plan (1) G-tube site cellulitis: Status: Acute Plan Patient is a 64-year-old female with a past medical history significant for hypothyroidism, trisomy 21, dementia, history CVA, G-tube dependency secondary to dysphagia, recent c diff, and recurrent aspiration pneumonia, who presented to the ED due to a nonfunctioning G-tube per EMS - currently being challenged with diet and once resolved can DC. HDS is at her baseline G-tube/abdominal wall cellulitis History of C diff G-tube dependency Re-initiated G-tube feeds ? Proctitis on CT imaging Pt at goal TF, clinically back to baseline Spoke to dog track kennel manager - she needs some paperwork to sort through along with our [facility] CM for the pt to return to Surgery consulted -zinc oxide topical to G tube area CTA/P suggestive of mild abdominal wall induration suggestive of cellulitis We will stop all abx given Cdiff history and resolution of presumed cellulitis No formulary probiotics, hence encouraged the staff to give probiotics in G- tube feeds- no indication for treatment for C diff at this time Left lower lobe consolidation- possible pneumonia -resolved Mild left pleural effusion-was given Lasix IV once in the ED We will stop all abx given Cdiff history and resolution of presumed cellulitis Patient appears to have autonomic dysfunction causing chronically mild hypotension-appears to be asymptomatic Hypothermia-appears to be her baseline Likely provoked Superficial left arm DVT Rescan in 1-2 months outpatient, conservative manage hypothyroid - continue levothyroxine Hypotension Possible autonomic dysfunction - on midodrine 10 mg t.i.d. VTE prophy: lovenox Quality Stroke Does the patient have a stroke diagnosis?: No VTE Prior VTE?: No VTE Risk Level:: Medical - moderate - high VTE Device Contraindication: Treatment Not Indicated VTE Drug Contraindication: N/A - Med Ordered
[2025-03-10] VITALS: BP 97/60; PULSE 55; RESP 16; TEMP 36.3; O2SAT 100
[2025-03-10 04:00] VITALS: BP 91/50; PULSE 55; RESP 16; TEMP 36.1; O2SAT 100
[2025-03-10 06:30] LABS: MANUAL DIFF FLAG NO
[2025-03-10 06:41] LABS: Hematocrit 37.0 % (37.0-47.0); Hemoglobin 12.1 g/dl (12.0-16.0); Imm Gran Abs Auto 0.01 X10*3/uL (0.00-0.03); Imm Gran Pct Auto 0.2 % (0.0-0.4); Lymphocytes Absolute Auto 0.8 X10*3/uL (1.2-4.9); Mean Corpuscular HGB Conc 32.7 g/dl (31.0-35.0); Mean Corpuscular Hemoglobin 33.4 pg (27.0-33.0); Mean Corpuscular Volume 102.2 fL (80.0-98.0); NRBC Abs Auto 0.000 X10*3/uL (0.0-0.012); NRBC Pct Auto 0.0 /100WBC (0.0-0.2); Platelet Count 201 X10*3/uL (160-400); Red Blood Count 3.62 X10*6/uL (4.20-5.50); White Blood Count 4.3 X10*3/uL (4.8-10.8)
[2025-03-10 06:56] LABS: Alanine Aminotransferase 14 U/L (0-31); Albumin Level 3.1 g/dL (3.5-5.0); Alkaline Phosphatase 71 U/L (39-117); Anion Gap 15 (12-20); Aspartate Amino Transferase 25 U/L (5-31); Blood Urea Nitrogen 8 mg/dL (9-16); Calcium 8.6 mg/dL (8.4-10.2); Carbon Dioxide 26 mmol/L (22-29); Chloride 105 mmol/L (96-108); Creatinine Clr Calc Pharmacy 46.8; Estimated Glomerular Filt Rate > 60; Potassium 4.0 mmol/L (3.3-5.1); Sodium 142 mmol/L (135-145); Total Protein 6.4 g/dL (6.5-8.0)
[2025-03-10 07:35] VITALS: BP 102/56; PULSE 56; RESP 16; TEMP 36.3; O2SAT 98
--- NOTE | 2025-03-10 11:12 | MHC.CM.PN ---
Addendum entered by Elisha Figueroa 03/10/25 13:53: halfway orders received, signed by MD and faxed back to Marie at the long term. Pt will discharge to the long term today via BLS/[facility]. Pts sister/co-guardian Karyna was called and notified. Original Note: EMR reviewed and per MD rounds, pt remains medically cleared for discharge. This CM continues to plan pts discharge to her long term. [facility] liaison in to complete tube feeding orders. This CM emailed store group manager Marie x 3 today with updates, awaiting response. This CM placed a call to Marie, voicemail left, awaiting return call. Still awaiting the long term orders for the pts wound care and tube feeding from the long term. No long term staff present in room when this CM checked.
[2025-03-10 11:32] VITALS: BP 117/58; PULSE 62; RESP 18; TEMP 36.7; O2SAT 96
--- NOTE | 2025-03-10 12:18 | MHC.CLN ---
F/U TF RUNNING AT MAX GOAL RATE-TOLERATING WELL PER NSG PT PREVIOUSLY RECEIVED TF PRIOR TO ADMISSION REVIEWED LABS CONTINUE OSMOLITE 1.5 TF AT 30 ML PER HOUR WITH 120 ML Q 4 HOURS FREE WATER FLUSHES PROVIDES 1080 KCALS (28 KCALS/KG), 45 G PROTEIN (1.2 G/KG), 1269 ML TOTAL FREE WATER FROM FORMULA AND FLUSHES (32.9 ML/KG) CONTINUE TO MONITOR TOLERANCE AND LYTES DISCUSSED CASE WITH CM AND [facility] REGARDING D/C [facility] AGREES WITH CONTINUOUS TF R/T PT'S HX ASPIRATION PNA-TF ORDER VERIFIED RD NAME AND CONTACT INFO GIVEN TO [facility] FOR FURTHER F/U IF NEEDED CM UPDATED
--- NOTE | 2025-03-10 12:20 | P.PNIM_ITS ---
Subjective Subjective Date of Service: 03/10/25 Interval History: No acute overnight events Review of Systems Review of Systems: Yes Unobtainable due to mental condition and Unobtainable due to mental status Physical Exam 2 Exam: Exam: G tube site - C/D/I Pt was resting peacefully at bedside Vital Signs: Vital Signs: Last Vital Signs Temp 98.1 F 03/10/25 11:32 Pulse 62 03/10/25 11:32 Resp 18 03/10/25 11:32 BP 117/58 L 03/10/25 11:32 Pulse Ox 96 03/10/25 11:32 O2 Del Method Room Air 03/10/25 11:32 BMI result Body Mass Index 23.0 Skin: Other: the skin area around the tube is less excoriated the bolster doesn't stay secure Objective Data Active Medications Acetaminophen (Acetaminophen 325 Mg Tablet) 650 mg G-TUBE Q6H PRN PRN Reason: Pain, Mild 1-3,fever,headache Albuterol/Ipratropium (Albuterol/Iprat 2.5/0.5mg 3 Ml Ampul.Neb) 3 ml INHALE Q6H PRN PRN Reason: Dyspnea Aspirin (Aspirin 81 Mg Tab.Chew) 81 mg G-TUBE DAILY [facility] Last Admin: 03/10/25 08:07 Dose: 81 mg Documented By: SLY Calcium Carbonate (Calcium Carbonate 750 Mg Tab.Chew) 750 mg G-TUBE Q4H PRN PRN Reason: Heartburn Doxycycline Monohydrate (Doxycycline Monohydrate 100 Mg Capsule) 100 mg PO Q12H [facility] Last Admin: 03/10/25 04:05 Dose: 100 mg Documented By: PRUDENCE Enoxaparin Sodium (Enoxaparin Sodium 40 Mg/0.4 Ml Syringe) 40 mg SUBCUT Q24H [facility] Last Admin: 03/10/25 06:31 Dose: 40 mg Documented By: PRUDENCE Fluticasone Propionate (Fluticasone Propionate Nasal 16 Gm [place]) 1 spray NOSTRIL-B DAILY [facility] Last Admin: 03/10/25 11:40 Dose: Not Given Documented By: SLY Non-Admin Reason: Med Not Available Hydrocortisone (Hydrocortisone 2.5 % Rectal Cr 30 Gm Tube) 1 appl [place] BID PRN PRN Reason: Hemorrhoids Ketorolac Tromethamine (Ketorolac Tromethamine 15 Mg/Ml Vial) 15 mg IM Q6H PRN PRN Reason: Pain, Moderate(Pain Scale 4-6) Last Admin: 03/06/25 15:28 Dose: 15 mg Documented By: JORGE Levothyroxine Sodium (Levothyroxine Sodium 112 Mcg Tablet) 112 mcg G-TUBE DAILY@0600 [facility] Last Admin: 03/10/25 05:35 Dose: 112 mcg Documented By: PRUDENCE Levothyroxine Sodium (Levothyroxine Sodium 25 Mcg Tablet) 25 mcg PO DAILY@0600 [facility] Last Admin: 03/10/25 08:07 Dose: 25 mcg Documented By: SLY Magnesium Hydroxide (Milk Of Magnesia 30 Ml Oral.Susp) 30 ml G-TUBE DAILY PRN PRN Reason: Constipation Melatonin (Melatonin 3 Mg Tablet) 6 mg G-TUBE BEDTIME PRN PRN Reason: Insomnia Last Admin: 03/07/25 20:51 Dose: 6 mg Documented By: THAD Midodrine (Midodrine Hcl 10 Mg Tablet) 10 mg G-TUBE TID [facility] Last Admin: 03/10/25 08:07 Dose: 10 mg Documented By: SLY Ondansetron HCl (Ondansetron Hcl 4 Mg/2 Ml Vial) 4 mg IVPUSH Q8H PRN PRN Reason: Nausea and Vomiting Oxcarbazepine (Oxcarbazepine 150 Mg Tablet) 75 mg G-TUBE BID [facility] Last Admin: 03/10/25 08:06 Dose: 75 mg Documented By: SLY Sodium Chloride (0.9 % Sodium Chloride Flush 3 Ml Syringe) 3 ml IVFLUSH QSHIFT [facility] Last Admin: 03/10/25 08:08 Dose: Not Given Documented By: SLY Non-Admin Reason: No Access Trazodone HCl (Trazodone Hcl 50 Mg Tablet) 50 mg G-TUBE BID PRN PRN Reason: behavioral disturbance/agitation Vitamin D (Cholecalciferol (Vitamin D3) 25 Mcg Tablet) 25 mcg G-TUBE DAILY [facility] Last Admin: 03/10/25 08:07 Dose: 25 mcg Documented By: SLY Zinc Oxide (Zinc Oxide 20% Ointment 28.35 Gm Tube) 1 appl TOPICAL DAILY [facility]; Protocol Last Admin: 03/10/25 08:09 Dose: 1 appl Documented By: SLY Labs 03/10/25 06:05 03/10/25 06:05 Labs: Laboratory Results - last 24 hr 03/10/25 06:05 MCV 102.2 H MCH 33.4 H MCHC 32.7 RDW 17.6 H Plt Count 201 MPV 10.3 Immature Gran % (Auto) 0.2 Neut % (Auto) 66.2 Lymph % (Auto) 18.4 L [place] % (Auto) 11.9 H Eos % (Auto) 2.6 Baso % (Auto) 0.7 Lymph # (Auto) 0.8 L [place] # (Auto) 0.5 Eos # (Auto) 0.1 Baso # (Auto) 0.0 Abs Immat Gran (auto) 0.01 Absolute Neuts (auto) 2.9 Absolute Nucleated RBC 0.000 Nucleated RBC % (auto) 0.0 Anion Gap 15 Estim Creat Clear Calc 46.8 Estimated GFR > 60 Random Glucose 73 Calcium 8.6 Total Bilirubin 0.4 AST 25 ALT 14 Alkaline Phosphatase 71 Total Protein 6.4 L Albumin 3.1 L Microbiology Microbiology Results: Microbiology 03/04/25 23:39 Blood Culture - Final Blood - Venous No growth after 5 days. 03/04/25 23:39 Blood Culture - Final Blood - Venous No growth after 5 days. Assessment and Plan (1) G-tube site cellulitis: Status: Acute Plan Patient is a 64-year-old female with a past medical history significant for hypothyroidism, trisomy 21, dementia, history CVA, G-tube dependency secondary to dysphagia, recent c diff, and recurrent aspiration pneumonia, who presented to the ED due to a nonfunctioning G-tube per EMS - currently being challenged with diet and once resolved can DC. HDS is at her baseline G-tube/abdominal wall cellulitis - resolved History of C diff - on Metronidazole G-tube dependency - Re-initiated G-tube feeds ? Proctitis on CT imaging Pt at goal TF, clinically back to baseline Spoke to forms analysis manager - she needs some paperwork to sort through along with our [facility] CM for the pt to return to Surgery consulted -zinc oxide topical to G tube area CTA/P suggestive of mild abdominal wall induration suggestive of cellulitis We will stop all abx given Cdiff history and resolution of presumed cellulitis No formulary probiotics, hence encouraged the staff to give probiotics in G- tube feeds- no indication for treatment for C diff at this time Left lower lobe consolidation- possible pneumonia -resolved Mild left pleural effusion-was given Lasix IV once in the ED We will stop all abx given Cdiff history and resolution of presumed cellulitis Patient appears to have autonomic dysfunction causing chronically mild hypotension-appears to be asymptomatic Hypothermia-appears to be her baseline Likely provoked Superficial left arm DVT Rescan in 1-2 months outpatient, conservative manage hypothyroid - continue levothyroxine Hypotension Possible autonomic dysfunction - on midodrine 10 mg t.i.d. VTE prophy: lovenox This note is constructed using voice recognition software. While every effort has been made to ensure accuracy, bundle cutter errors may have been included. Quality Stroke Does the patient have a stroke diagnosis?: No VTE Prior VTE?: No VTE Risk Level:: Medical - moderate - high VTE Device Contraindication: Treatment Not Indicated VTE Drug Contraindication: N/A - Med Ordered
--- NOTE | 2025-03-10 12:54 | HO.WOUND ---
Wound Consult: Follow up 64yr old?female admitted to [facility] [place] 03/05/25 03:30- See progress notes and H&P for detailed history.? Wound consult placed for Gtube site skin break down.? Follow up today as patient was not discharged back to alf as of yet. Todays assessment was to determine appropriate interventions. Hydroclloid remaining mostly in place - removed for skin assessment reveals improving skin integrity overall. Replaced hydrocolloid and dry gauze dressing - readjusted bumper that had migrated away from her skin. If the bumper continues to migrate away from her skin I recommend a replacement of the current size be inplace in an effort for the bumper to remain in place closer to the skin. The bumper aids in decreasing movement of the tube at skin interface. Additionally I added a Tube securement device to her abdoemn to mominmize tube movement leading to less leaking. No other new topical recommendations needed at this time. Detailed from yesterdays consultation: Wound Consult: Initial 64yr old?female admitted to [facility] on 03/05/25 03:30- See progress notes and H&P for detailed history.? Wound consult placed for Gtube site skin break down.? arrival to bedside patient was alone in room - she lives in a alf and is set for d./c today. Provider requested skin around G tube be assessed and topical recommendations made prior to d/c. Patient was alert and awake but did not converse with this advertising copywriter - she was agreeable to assessment.? ? G tube at resting position - skin folds creating space for bumper to extend and pooling of drainage / tube feeding Inferior skin break down Superior skin break down With Hydrocolloid in use - allows skin to have less creases improving dressing and skin healing. GTube Etiology: MASD?? Wound Bed: scattered open areas under and around g-tube, red pink moist wound bed Drainage / Odor: difficult to assess drainage from tube feeding vs drainage - yellow [place] mucus consistency Edges: ? irregular Janet wound: ?red pink improving erythema per chart review No Induration, Fluctuance or Warmth noted Pain: tender to touch per pt grimacing Goals of Treatment: ? Protect tissue from moisture and friction Recommendations: Abdomen / G Tube site - Cleanse with Normal saline pat dry. Apply [place] skin protectant every other day, allow to dry. Cover skin under G-tube with Hydrocolloid (4x 4 square) with drain split cut, hold for a few seconds to ensure seal. Place gauze under bumper over hydrocolloid.? There should be ? - 1cm of laxity between entry point and the bumper to prevent ulceration.??Push bumper towards skin to minimize space not more than 1cm. Change hydrocolloid every other day and PRN. Change drain gauze sponges twice a day and as needed when wet. Re-consult wound care Nurse for wound deterioration or wound changes.
--- NOTE | 2025-03-10 13:42 | P.DS_ITS ---
DS: Providers Provider Date of Service: 03/10/25 Date of admission: 03/05/25 03:30 Date of discharge: 03/10/25 Primary care physician: Alfredo Walls MD Consults: 03/05/25 15:47 Consult to General Surgery Routine Consulting Provider: [facility] [place] [facility] Reason for consultation: Stomach contents leaking around PEG tube, eval for button PEG? 03/09/25 10:45 Consult to Wound Care Routine Reason for consultation: wound care instruction DS: Diagnosis Discharge Diagnosis (1) G-tube site cellulitis: Status: Acute DS: Summary Hospital Course Hospital Course: G-tube/abdominal wall cellulitis - resolved History of C diff - on Metronidazole G-tube dependency - Re-initiated G-tube feeds ? Proctitis on CT imaging Patient is a 64-year-old female with a past medical history significant for hypothyroidism, trisomy 21, dementia, history CVA, G-tube dependency secondary to dysphagia, recent c diff, and recurrent aspiration pneumonia, who presented to the ED due to a nonfunctioning G-tube per EMS - currently being challenged with diet and once resolved can DC. HDS is at her baseline CTA/P suggestive of mild abdominal wall induration suggestive of cellulitis We will stop all abx given Cdiff history and resolution of presumed cellulitis No formulary probiotics, hence encouraged the staff to give probiotics in G- tube feeds- no indication for treatment for C diff at this time Surgery consulted -zinc oxide topical to G tube area Left lower lobe consolidation- possible pneumonia -resolved Mild left pleural effusion-was given Lasix IV once in the ED We will stop all abx given Cdiff history and resolution of presumed cellulitis Patient appears to have autonomic dysfunction causing chronically mild hypotension-appears to be asymptomatic Hypothermia-appears to be her baseline Likely provoked Superficial left arm DVT Rescan in 1-2 months outpatient, conservative manage hypothyroid - continue levothyroxine Hypotension Possible autonomic dysfunction - on midodrine 10 mg t.i.d. VTE prophy: lovenox This note is constructed using voice recognition software. While every effort has been made to ensure accuracy, buck swamper errors may have been included. Time Attestation Discharge Coordination Time (in mins): 35 Quality: Safe Use of Opioids Does Pt have an Active Cancer Diagnosis on the Problem List?: No Quality: Stroke Does the patient have a stroke diagnosis?: No Physical Exam Vital Signs: Vital Signs: Last Vital Signs Temp 98.1 F 03/10/25 11:32 Pulse 62 03/10/25 11:32 Resp 18 03/10/25 11:32 BP 117/58 L 03/10/25 11:32 Pulse Ox 96 03/10/25 11:32 O2 Del Method Room Air 03/10/25 11:32 BMI result Body Mass Index 23.0 DS: Data Data Completed and Pending Completed studies during hospitalization [Text1]: Procedures Insertion of Endotracheal Airway into Trachea, Via Natural or Artificial Opening (08/24/24) Insertion of Feeding Device into Stomach, Percutaneous Approach (08/24/24) Introduction of Vasopressor into Peripheral Vein, Percutaneous Approach () Respiratory Ventilation, 24-96 Consecutive Hours (08/24/24) Respiratory Ventilation, Less than 24 Consecutive Hours (08/24/24) Labs on day of discharge: Laboratory Results - last 24 hr 03/10/25 06:05 WBC 4.3 L RBC 3.62 L Hgb 12.1 Hct 37.0 MCV 102.2 H MCH 33.4 H MCHC 32.7 RDW 17.6 H Plt Count 201 MPV 10.3 Immature Gran % (Auto) 0.2 Neut % (Auto) 66.2 Lymph % (Auto) 18.4 L [place] % (Auto) 11.9 H Eos % (Auto) 2.6 Baso % (Auto) 0.7 Lymph # (Auto) 0.8 L [place] # (Auto) 0.5 Eos # (Auto) 0.1 Baso # (Auto) 0.0 Abs Immat Gran (auto) 0.01 Absolute Neuts (auto) 2.9 Absolute Nucleated RBC 0.000 Nucleated RBC % (auto) 0.0 Sodium 142 Potassium 4.0 Chloride 105 Carbon Dioxide 26 Anion Gap 15 BUN 8 L Creatinine 0.58 Estim Creat Clear Calc 46.8 Estimated GFR > 60 Random Glucose 73 Calcium 8.6 Total Bilirubin 0.4 AST 25 ALT 14 Alkaline Phosphatase 71 Total Protein 6.4 L Albumin 3.1 L Discharge Plan Discharge Anticipated Discharge Date/Time: 03/10/25 13:35 Patient Disposition: Home Health Service Discharge Diagnosis: G-tube site cellulitis/pneumonia-resolved Referrals: Po,Alfredo Khalil MD [Primary Care Provider, Internal Medicine] - 1 Week Discharge Medications: New zinc oxide 20 % Ointment 1 appl topical DAILY Qty: 2043.8 0RF Protocol: Apply to: Apply to: gtube site of irritation Continued cholecalciferol (vitamin D3) 25 mcg (1,000 unit) tablet 25 mcg feeding tube DAILY Qty: 30 12RF fluticasone propionate 50 mcg/actuation spray,suspension 1 spray intranasal DAILY Qty: 16 12RF hydrocortisone [Proctosol HC] 2.5 % cream with perineal applicator 1 appl MA BID PRN (Reason: hemorrhoids) Qty: 30 0RF ipratropium-albuterol 0.5 mg-3 mg(2.5 mg base)/3 mL solution for nebulization 3 ml INHALATION Q6H PRN (Reason: Dyspnea) Qty: 90 0RF oxcarbazepine 150 mg tablet 75 mg feeding tube BID 30 Days Qty: 30 3RF aspirin 81 mg tablet,chewable 81 mg feeding tube DAILY Qty: 90 3RF midodrine 5 mg tablet 10 mg feeding tube TID Qty: 90 0RF Rx Instructions: hold for SBP >130 calcium carbonate-vitamin D3 600 mg-10 mcg (400 unit) tablet 1 tab PO BID@1600,2000 Qty: 60 12RF Acidophilus Capsule 10 mg feeding tube DAILY Qty: 30 12RF levothyroxine [Synthroid] 137 mcg tablet 137 mcg feeding tube DAILY@0600 Qty: 30 5RF acetaminophen 650 mg/20.3 mL solution 640 mg feeding tube Q4H PRN (Reason: fever or pain) trazodone 50 mg tablet 50 mg feeding tube BID PRN (Reason: behavioral disturbance/agitation) clotrimazole 1 % cream 1 appl topical BID Qty: 30 0RF Discharge Orders: Discharge Order (Routine); Ordered 03/10/25 Ordered By: Kera Salinas Diet: TF RUNNING AT MAX GOAL RA Activity on Discharge: As tolerated Stand Alone Forms: Patient Portal Discharge page Print Language: Serbian Activity Restrictions/Additional Instructions: G-tube/abdominal wall cellulitis resolved History of C diff stable G-tube dependency chronic Re-initiated G-tube feeds tolerating well ? Proctitis on CT imaging -no current concerns Patient is a 64-year-old female with a past medical history significant for hypothyroidism, trisomy 21, dementia, history CVA, G-tube dependency secondary to dysphagia, recent c diff, and recurrent aspiration pneumonia, who presented to the ED due to a nonfunctioning G-tube per EMS . She was thought to have sepsis secondary to G-tube site cellulitis versus pneumonia as a possible etiology versus her chronic confusion/baseline which might have led to her site G-tube being dislodged. She was treated on broad-spectrum antibiotics for 4 days with good resolution. Surgery was consulted with G-tube and deemed it functional and no surgical management was needed during this hospitalization. Wound Care consulted wound care instructions as below. She is not being sent on antibiotics as the site seems to be healing well and she is tolerating the feeds for the past 3 days prior to discharge. She is at her baseline hemodynamic status-mildly soft blood pressure (90/50) bradycardic, hypothermic and is awake and interactive at these pressures and vitals at her baseline. She was challenged with diet for the past 3 days and has since tolerated it. manager market research for any has been spoken to and they are in agreement with this current plan. currently being challenged with diet and once resolved can DC. HDS is at her baseline Left lower lobe consolidation- possible pneumonia -resolved Mild left pleural effusion-was given Lasix IV once in the ED Autonomic dysfunction-hypotensive, bradycardic, hypothermic appears to be her baseline She was initially treated with 4 days of antibiotics, and it was stopped prior to discharge given her history of C diff we did not want her to have a flare. She was not hypoxic at room air which is her baseline hypothyroid - continue levothyroxine Hypotension Possible autonomic dysfunction - on midodrine 10 mg t.i.d. Superficial arm DVT Likely provoked in the setting of infiltrated IV site-deemed superficial, would follow up with outpatient scan in about 1-2 3 months, outpatient workup. Risks versus benefits weight and patient would benefit from not starting anticoagulation given high has bled score VTE prophy: Was maintained with lovenox F/U TF RUNNING AT MAX GOAL RATE-TOLERATING WELL PER NSG PT PREVIOUSLY RECEIVED TF PRIOR TO ADMISSION REVIEWED LABS CONTINUE OSMOLITE 1.5 TF AT 30 ML PER HOUR WITH 120 ML Q 4 HOURS FREE WATER FLUSHES PROVIDES 1080 KCALS (28 KCALS/KG), 45 G PROTEIN (1.2 G/KG), 1269 ML TOTAL FREE WATER FROM FORMULA AND FLUSHES (32.9 ML/KG) CONTINUE TO MONITOR TOLERANCE AND LYTES DISCUSSED CASE WITH CM AND [facility] REGARDING D/C [facility] AGREES WITH CONTINUOUS TF R/T PT'S HX ASPIRATION PNA-TF ORDER VERIFIED RD NAME AND CONTACT [facility] G[facility] IF NEEDED CM UPDATED Topical Wound Care Recommendations: Abdomen / G Tube site - Cleanse with Normal saline pat dry. Apply [place] skin protectant every other day, allow to dry. Cover skin under G-tube with Hydrocolloid (4x 4 square) with drain split cut, hold for a few seconds to ensure seal. Place gauze under bumper over hydrocolloid.? There should be ? - 1cm of laxity between entry point and the bumper to prevent ulceration.??Push bumper towards skin to minimize space not more than 1cm. Change hydrocolloid every other day and PRN. Change drain gauze sponges twice a day and as needed when wet. Re-consult wound care Nurse for wound deterioration or wound changes. Care Plan Goals: Wound care healing Encouraged to have probiotics Health Concerns: See above Plan of Treatment: See above Assessment: See above
--- OUTSIDE RECORDS SUMMARY | 2025-04-05 20:00 | XMS_ITS | Clinical Summary ---
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, RECURRENT Active 07-06 00:00: 00 GASTROSTOMY INFECTION Active 07-06 00:00: 00 HYPOTHYROIDI SM, UNSPECIFIED Active 07-06 00:00: 00 DEM IN OTH DIS CLASSD ELSWHR, UNSP SEV, WITH OTH BEH DISTRB Active 07-06 00:00: 00 ANEMIA, UNSPECIFIED Active 07-06 00:00: 00 OTHER HYPOTENSION Active 07-06 00:00: 00 DYSPHASIA FOLLOWING CEREBRAL INFARCTION Active 07-06 00:00: 00 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 Active 07-06 00:00: 00 HYPERLIPIDEM IA, UNSPECIFIED Active 07-06 00:00: 00 DOWN SYNDROME, UNSPECIFIED Active 07-06 00:00: 00 OTHER CONSTIPATION Active 07-06 00:00: 00 AUTOIMMUNE THYROIDITIS Active 07-06 00:00: 00 CATARACT EXTRACTION STATUS, RIGHT EYE Active 07-06 00:00: 00 CATARACT EXTRACTION STATUS, LEFT EYE Active 07-06 00:00: 00 Problems related to health literacy Active 07-06 00:00: 00 DEPENDENCE ON WHEELCHAIR Active 07-06 00:00: 00 LEGAL SUPPORT ANALYST (CURRENT) USE OF ASPIRIN Active 07-06 00:00: 00 OTHER LEGAL SUPPORT ANALYST (CURRENT) DRUG THERAPY Active 07-06 00:00: 00 Allergies, Adverse Reactions, Alerts Allergy Name Allergy Type Status Severity Reaction(s) Onset Date Inactive Date Treating Clinician Comments AMOXICILLIN Propensity to adverse reactions Active 12-08 23:26: 45 SULFAMETHOXA ZOLE Propensity to adverse reactions Active 12-08 23:28: 12 TRIMETHOPRIM Propensity to adverse reactions Active 12-08 23:29: 57 SULFA (SULFONAMIDE ANTIBIOTICS) Propensity to adverse reactions Active 12-12 09:06: 05 CLINDAMYCIN HCL Propensity to adverse reactions Active 12-08 23:27: 03 Medications Ordered Medication Name Filled Medication Name Start Date Stop Date Current Medication? Ordering Clinician Indication Dosage Frequency Signature (SIG) Comments Components Acidophilus capsule 12-08 00:00: 00 Yes [id number] 1 capsule DAILY 1 capsule DAILY (route: oral) Alternate Route: G-TUBE. Med Classific ation: Gastroint estinal Therapy Agents Pain Relief (acetaminop hen) 160 mg/5 mL oral liquid 12-08 00:00: 00 Yes [id number] 640 mg EVERY 4 HOURS 640 mg EVERY 4 HOURS (route: oral) Alternate Route: G-TUBE. Med Classific ation: Analgesic , Anti-infl ammatory or Antipyret ic Aspirin Childrens 81 mg chewable tablet 12-08 00:00: 00 Yes [id number] 1 tablet DAILY 1 tablet DAILY (route: oral) Alternate Route: G-TUBE. Med Classific ation: Hematolog ical Agents Cetaphil Moisturizin g lotion 12-08 00:00: 00 Yes [id number] 1 mL NEEDED 1 mL NEEDED (route: topical) Med Classific ation: Dermatolo gical Dulcolax (magnesium hydroxide) 400 mg/5 mL oral suspension 12-08 00:00: 00 Yes [id number] 30 mL DAILY 30 mL DAILY (route: oral) Alternate Route: G-TUBE. Med Classific ation: Gastroint estinal Therapy Agents Fleet Enema 19 gram-7 gram/118 mL 12-08 00:00: 00 Yes [id number] 19 g DAILY 19 g EDWINA Y (route: rectal) Med Classific ation: Gastroint estinal Therapy Agents fluticasone propionate 50 mcg/actuati on nasal spray,suspe nsion 12-08 00:00: 00 Yes [id number] 1 spray DAILY 1 spray DAILY (route: nasal) Med Classific ation: Respirato ry Therapy Agents gabapentin 100 mg capsule 12-08 00:00: 00 Yes [id number] 1 capsule BEDTIME 1 capsule BEDTIME (route: oral) Alternate Route: G-TUBE. Med Classific ation: Central Nervous System Agents ipratropium 0.5 mg-albutero l 2.5 mg/2.5 mL solution for nebulizatio n 12-08 00:00: 00 Yes [id number] 3 mg NEEDED 3 mg NEEDED (route: inhalation ) Med Classific ation: Respirato ry Therapy Agents levothyroxi ne 137 mcg tablet 12-08 00:00: 00 Yes [id number] 1 tablet DAILY 1 tablet DAILY (route: oral) Alternate Route: G-TUBE. Med Classific ation: Endocrine midodrine 5 mg tablet 12-08 00:00: 00 Yes [id number] 2 tablet 3 TIMES DAILY 2 tablet 3 TIMES DAILY (route: oral) Alternate Route: G-TUBE. Med Classific ation: Cardiovas cular Therapy Agents oxcarbazepi ne 150 mg tablet 12-08 00:00: 00 Yes [id number] 1 tablet 2 TIMES DAILY 1 tablet 2 TIMES DAILY (route: oral) Alternate Route: G-TUBE. Med Classific ation: Central Nervous System Agents Proctosol HC 2.5 % topical cream perineal applicator 12-08 00:00: 00 Yes [id number] 1 applica tor 2 TIMES DAILY 1 applicator 2 TIMES DAILY (route: topical) Med Classific ation: Anorectal Preparati ons vancomycin 50 mg/mL oral solution 12-08 00:00: 00 01-31 00:00 :00 No [id number] 2.5 mL EVERY OTHER DAY 2.5 mL EVERY OTHER DAY (route: oral) Alternate Route: G-TUBE. Med Classific ation: Anti-Infe ctive Agents zinc oxide topical ointment 02-06 00:00: 00 Yes [id number] Per instruc tions NEEDED Per instructio ns NEEDED (route: topical) Med Classific ation: Dermatolo gical Clotrimazol e AF 1 % topical cream 02-16 00:00: 00 Yes [id number] Per instruc tions 2 TIMES DAILY Per instructio ns 2 TIMES DAILY (route: topical) Med Classific ation: Dermatolo gical Vital Signs Vital Name Observation Time Observation Value Commen ts Temperature 2025-02-23 12:31:00.000 98 [degF] Temperature 2025-02-20 10:48:00.000 97.4 [degF] Temperature 2025-02-18 11:07:00.000 97.4 [degF] Temperature 2025-02-15 11:57:00.000 97.2 [degF] Temperature 2025-02-07 12:09:00.000 98.1 [degF] Pulse 2025-02-23 12:31:00.000 70 /min Pulse 2025-02-20 10:48:00.000 68 /min Pulse 2025-02-18 11:07:00.000 62 /min Pulse 2025-02-15 11:57:00.000 67 /min Pulse 2025-02-07 12:09:00.000 72 /min O2 Saturation (%) 2025-02-15 11:57:00.000 93 % O2 Saturation (%) 2025-02-07 12:09:00.000 92 % Respirations 2025-02-23 12:31:00.000 18 /min Respirations 2025-02-20 10:48:00.000 18 /min Respirations 2025-02-18 11:07:00.000 18 /min Respirations 2025-02-15 11:57:00.000 18 /min Systolic Blood Pressure 2025-02-23 12:31:00.000 102 mm [Hg] Systolic Blood Pressure 2025-02-20 10:48:00.000 98 mm[ Hg] Systolic Blood Pressure 2025-02-18 11:07:00.000 102 mm [Hg] Systolic Blood Pressure 2025-02-15 11:57:00.000 100 mm [Hg] Systolic Blood Pressure 2025-02-07 12:09:00.000 90 mm[ Hg] Diastolic Blood Pressure 2025-02-23 12:31:00.000 50 mm [Hg] Diastolic Blood Pressure 2025-02-20 10:48:00.000 52 mm [Hg] Diastolic Blood Pressure 2025-02-18 11:07:00.000 62 mm [Hg] Diastolic Blood Pressure 2025-02-15 11:57:00.000 58 mm [Hg] Diastolic Blood Pressure 2025-02-07 12:09:00.000 52 mm [Hg] Plan of Treatment Planned Activity [...] HEALTH.] Future Scheduled Test SKILLED NU RSE TO [...] PHYSICIAN/PROVIDER OF ANY CONCERNS.] Future Scheduled Test PATIENT NARVAEZ S A [...] MAINTAIN SITUATIONAL AWARENESS AND WILL NOTIFY CLINICAL DIVISION SALES MANAGER AND PHYSICIAN/PROVIDER WITH ANY CHANGE IN CONDITION. [code = SKILLED NURSE TO PERFORM ENVIRONMENTAL SAFETY RISK ASSESSMENT AND FALL RISK ASSESSMENT AND PROVIDE INSTRUCTION TO IMPLEMENT ENVIRONMENTAL SAFETY AND FALL PREVENTION STRATEGIES THROUGHOUT THE CERTIFICATION PERIOD. SKILLED NURSE WILL MAINTAIN SITUATIONAL AWARENESS AND WILL NOTIFY CLINICAL DIVISION SALES MANAGER AND PHYSICIAN/PROVIDER WITH ANY CHANGE IN CONDITION.] Future Scheduled Test SKILLED NU RSE FOR OBSERVATION AND ASSESSMENT OF PATIENT S PAIN LEVEL AND EFFECTIVENESS OF PAIN MANAGEMENT REGIMEN. SKILLED NURSE TO INSTRUCT PATIENT/CAREGIVER REGARDING PHARMACOLOGIC AND NON-PHARMACOLOGIC PAIN CONTROL MEASURES. SKILLED NURSE TO REPORT TO PHYSICIAN IF PAIN LEVEL IS OUTSIDE OF ESTABLISHED PARAMETERS. [code = SKILLED NURSE FOR OBSERVATION AND ASSESSMENT OF PATIENT S PAIN LEVEL AND EFFECTIVENESS OF PAIN MANAGEMENT [...] ULCERS.] Future Scheduled Test SKILLED NU RSE FOR O/A AND SKILLED TEACHING RELATED TO ALTERED SKIN INTEGRITY GTUBE SITE CARE [code = SKILLED NURSE FOR O/A AND SKILLED TEACHING RELATED TO ALTERED SKIN INTEGRITY GTUBE SITE CARE] Future Scheduled Test SKILLED NU RSE FOR TEACHING REGARDING THE ADMINISTRATION OF ENTERAL NUTRITION OSMOLITE 1.5CAL, 1 CAN Q4H INCLUDING TEACHING ON ASPIRATION PRECAUTIONS [code = SKILLED NURSE FOR TEACHING REGARDING THE ADMINISTRATION OF ENTERAL NUTRITION OSMOLITE 1.5CAL, 1 CAN Q4H INCLUDING TEACHING ON ASPIRATION PRECAUTIONS] Future Scheduled Test SKILLED NU RSE FOR O/A, TEACHING RELATED TO ENTEROCOLITIS FOR EARLY IDENTIFICATION OF EXACERBATION OF DISEASE PROCESS. [code = SKILLED NURSE FOR O/A, TEACHING RELATED TO ENTEROCOLITIS FOR EARLY IDENTIFICATION OF EXACERBATION OF DISEASE [...] AND INFECTION CONTROL MEASURES.] Future Scheduled Test VIRTUAL SIT FREQUENCY: 6 PRN VIRTUAL VISITS MAY BE PERFORMED UTILIZING TELECOMMUNICATIONS SYSTEM TO OPTIMIZE SKILLED SERVICES FURNISHED ON THE PLAN OF CARE. SKILLED NURSE TO ESTABLISH SUPPORT MEASURES TO MINIMIZE RISK OF REHOSPITALIZATION, AND INSTRUCT PATIENT/CAREGIVER ON METHODS TO REDUCE AVOIDABLE HOSPITALIZATION. [code = VIRTUAL VISIT FREQUENCY: 6 PRN VIRTUAL VISITS MAY BE PERFORMED UTILIZING TELECOMMUNICATIONS SYSTEM TO OPTIMIZE SKILLED SERVICES FURNISHED ON THE PLAN OF CARE. SKILLED NURSE TO ESTABLISH SUPPORT MEASURES TO MINIMIZE RISK OF REHOSPITALIZATION, AND INSTRUCT PATIENT/CAREGIVER ON METHODS TO REDUCE AVOIDABLE HOSPITALIZATION.] Future Scheduled Test NEED FOR C ONTINUATION OF PHYSICAL THERAPY SERVICES [code = NEED FOR CONTINUATION OF PHYSICAL THERAPY SERVICES] Future Scheduled Test PHYSICAL T HERAPIST TO [...] PRIOR LEVEL OF MOBILITY WAS INDEPENDENT IN [facility]. PATIENT HAS BEEN NON-AMBULATORY DID TAKE A FEW STEPS WITH HER SISTER YESTERDAY. PAST MEDICAL HISTORY INCLUDES CEREBRAL WHITE MATTER DISEASE, SYNCOPE, HYPERLIPIDEMIA, CONSTIPATION, DEMENTIA, DOWN SYNDROME, OSTEOPENIA, RIGHT ANKLE FRACTURE, CVA, MITRAL VALVE REGURGITATION, LEFT BBB IN PULMONARY EDEMA. BASELINE WAS INDEPENDENT IN [facility] AMBULATORY GENERAL GOAL IS TO RETURN TO AMBULATION. PATIENT PLEASANTLY CONFUSED ABLE TO FOLLOW COMMANDS WITH MINIMAL INSTRUCTION. NO PAIN REPORTED.. REPORTED BLADDER INCONTINENCE. PATIENT REQUIRES ASSISTANCE TIMES 1 FOR ADL AND IADL CARE. RESTING VITAL SIGNS WITHIN NORMAL LIMITS. NO NOTED EDEMA. BILATERAL LOWER EXTREMITY WEAKNESS CAUSING DIFFICULTY WITH TRANSFERS. PATIENT REQUIRES ASSISTANCE TIMES ONE FOR BED MOBILITY TRANSFERS AND AMBULATION. PATIENT WAS ABLE TO AMBULATEX 15 FEET WITH HAND HELD ASSISTANCE. . PATIENT HAS RAMP TO ENTER HOME. PHYSICAL THERAPY WILL FOLLOW ON CAREGIVER TRAINING FUNCTIONAL MOBILITY TRAINING STRENGTH TRAINING ENDURANCE TRAINING. [facility] AGREES WITH PLAN OF CARE. [code = [...] PRIOR LEVEL OF MOBILITY WAS INDEPENDENT IN [facility]. PATIENT HAS BEEN NON-AMBULATORY DID TAKE A FEW STEPS WITH HER SISTER YESTERDAY. PAST MEDICAL HISTORY INCLUDES CEREBRAL WHITE MATTER DISEASE, SYNCOPE, HYPERLIPIDEMIA, CONSTIPATION, DEMENTIA, DOWN SYNDROME, OSTEOPENIA, RIGHT ANKLE FRACTURE, CVA, MITRAL VALVE REGURGITATION, LEFT BBB IN PULMONARY EDEMA. BASELINE WAS INDEPENDENT IN [facility] AMBULATORY GENERAL GOAL IS TO RETURN TO AMBULATION. PATIENT PLEASANTLY CONFUSED ABLE TO FOLLOW COMMANDS WITH MINIMAL INSTRUCTION. NO PAIN REPORTED.. REPORTED BLADDER INCONTINENCE. PATIENT REQUIRES ASSISTANCE TIMES 1 FOR ADL AND IADL CARE. RESTING VITAL SIGNS WITHIN NORMAL LIMITS. NO NOTED EDEMA. BILATERAL LOWER EXTREMITY WEAKNESS CAUSING DIFFICULTY WITH TRANSFERS. PATIENT REQUIRES ASSISTANCE TIMES ONE FOR BED MOBILITY TRANSFERS AND AMBULATION. PATIENT WAS ABLE TO AMBULATEX 15 FEET WITH HAND HELD ASSISTANCE. . PATIENT HAS RAMP TO ENTER HOME. PHYSICAL THERAPY WILL FOLLOW ON CAREGIVER TRAINING FUNCTIONAL MOBILITY TRAINING STRENGTH TRAINING ENDURANCE TRAINING. [facility] AGREES WITH PLAN OF CARE.] Goal 2025-01-26 Patient Goal - P ER CG TO B ABLE TO WALK AGAIN Goal Patient Goal - P ER CG TO B ABLE TO WALK AGAIN Goal 2025-02-03 Patient Goal - P ER CG TO B ABLE TO WALK AGAIN Goal Provider Goal - A PLAN OF CARE WILL BE ESTABLISHED THAT MEETS PATIENT'S ASSISTED NEEDS AND INCLUDES PATIENT GOAL FOR HOME HEALTH. Goal Provider Goal - PATIENT/CAREGIVER WILL VERBALIZE [...] OF TEACHING RELATED TO ALTERED SKIN INTEGRITY BY END OF CERTIFICATION PERIOD. Goal Provider Goal - PATIENT/CAREGIVER WILL DEMONSTRATE ABILITY TO ADMINSITER ENTERAL NUTRITION, VERBALIZE METHODS TO PREVENT ASPIRATION AND PERFORM SITE CARE. PATIENT/CAREGIVER WILL REPORT COMPLICATIONS TO SKILLED NURSE /PHYSICIAN. Goal Provider Goal - EXACERBATIONS OF GASTROINTESTINAL [...] PERIOD. Goal Provider Goal - PATIENT/CAREGIVER WILL UTILIZE VIRTUAL VISITS TO ACHIEVE GOALS OUTLINED ON THE PLAN OF CARE. PATIENT WILL HAVE SUPPORT MEASURES ESTABLISHED TO PREVENT HOSPITALIZATION AND PATIENT/CAREGIVER WILL VERBALIZE/DEMONSTRATE METHODS TO REDUCE AVOIDABLE HOSPITALIZATION THROUGHOUT THE CERTIFICATION PERIOD. Goal Provider Goal - PHYSICAL THERAPY SERVICES TO CONTINUE AND PLAN OF TREATMENT CARE WILL BE RE-ESTABLISHED/UPDATED IN THE NEW CERTIFICATION PERIOD. Goal Provider Goal - PHYSICAL THERAPY EVALUATION TO BE COMPLETED WITH RECOMMENDATIONS AND/OR WRITTEN TREATMENT PLAN OF CARE ESTABLISHED FOR THE PHYSICIAN S SIGNATURE PATIENT/CAREGIVER WILL PERFORM THERAPEUTIC EXERCISE/S AND DEMONSTRATE PARTICIPATION IN A HOME PROGRAM. PATIENT/CAREGIVER WILL DEMONSTRATE SAFE TRANSFERS USING APPROPRIATE ASSISTIVE DEVICE, BODY MECHANICS AND EQUIPMENT. PATIENT/CAREGIVER WILL DEMONSTRATE IMPROVED GAIT TECHNIQUES TO MINIMIZE RISK OF INJURY. PATIENT/CAREGIVER WILL DEMONSTRATE/VERBALIZE UNDERSTANDING OF RECOMMENDATIONS TO INCREASE SAFETY IN THE HOME AND FALL PREVENTION. Encounters Start Date/Time End Date/Time Encounter Type Admission Type Attending [facility] Department Encounter ID Discharge Date Discharge Status Discharge Condition Discharge Reason Percent Goals Met 2025-02-06 00:00:00 2025-04-06 00:00:00 Outpatient DAIRTPALAK BRITO ([facility]), LALA [facility] [id number] 34.62
--- OUTSIDE RECORDS SUMMARY | 2025-04-05 20:00 | XMS_ITS | Clinical Summary ---
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 Med Classific ation: Gastroint estinal Therapy Agents Pain Relief (acetaminop hen) 160 mg/5 mL oral liquid 12-08 00:00: 00 Yes [id number] 640 mg EVERY 4 HOURS 640 mg EVERY 4 HOURS (route: oral) Alternate Route: G-TUBE. Med Classific ation: Analgesic , Anti-infl ammatory or Antipyret ic Aspirin Childrens 81 mg chewable tablet 12-08 00:00: 00 Yes [id number] 1 tablet DAILY 1 tablet DAILY (route: oral) Alternate Route: G-TUBE. Med Classific ation: Hematolog ical Agents Cetaphil Moisturizin g lotion 12-08 00:00: 00 Yes [id number] 1 mL NEEDED 1 mL NEEDED (route: topical) Med Classific ation: Dermatolo gical Dulcolax (magnesium hydroxide) 400 mg/5 mL oral suspension 12-08 00:00: 00 Yes [id number] 30 mL DAILY 30 mL DAILY (route: oral) Alternate Route: G-TUBE. Med Classific ation: Gastroint estinal Therapy Agents Fleet Enema 19 gram-7 gram/118 mL 12-08 00:00: 00 Yes [id number] 19 g DAILY 19 g EDWINA Y (route: rectal) Med Classific ation: Gastroint estinal Therapy Agents fluticasone propionate 50 mcg/actuati on nasal spray,suspe nsion 12-08 00:00: 00 Yes [id number] 1 spray DAILY 1 spray DAILY (route: nasal) Med Classific ation: Respirato ry Therapy Agents gabapentin 100 mg capsule 12-08 00:00: 00 Yes [id number] 1 capsule BEDTIME 1 capsule BEDTIME (route: oral) Alternate Route: G-TUBE. Med Classific ation: Central Nervous System Agents ipratropium 0.5 mg-albutero l 2.5 mg/2.5 mL solution for nebulizatio n 12-08 00:00: 00 Yes [id number] 3 mg NEEDED 3 mg NEEDED (route: inhalation ) Med Classific ation: Respirato ry Therapy Agents levothyroxi ne 137 mcg tablet 12-08 00:00: 00 Yes [id number] 1 tablet DAILY 1 tablet DAILY (route: oral) Alternate Route: G-TUBE. Med Classific ation: Endocrine midodrine 5 mg tablet 12-08 00:00: 00 Yes [id number] 2 tablet 3 TIMES DAILY 2 tablet 3 TIMES DAILY (route: oral) Alternate Route: G-TUBE. Med Classific ation: Cardiovas cular Therapy Agents oxcarbazepi ne 150 mg tablet 12-08 00:00: 00 Yes [id number] 1 tablet 2 TIMES DAILY 1 tablet 2 TIMES DAILY (route: oral) Alternate Route: G-TUBE. Med Classific ation: Central Nervous System Agents Proctosol HC 2.5 % topical cream perineal applicator 12-08 00:00: 00 Yes [id number] 1 applica tor 2 TIMES DAILY 1 applicator 2 TIMES DAILY (route: topical) Med Classific ation: Anorectal Preparati ons vancomycin 50 mg/mL oral solution 12-08 00:00: 00 01-31 00:00 :00 No [id number] 2.5 mL EVERY OTHER DAY 2.5 mL EVERY OTHER DAY (route: oral) Alternate Route: G-TUBE. Med Classific ation: Anti-Infe ctive Agents zinc oxide topical ointment 02-06 00:00: 00 Yes [id number] Per instruc tions NEEDED Per instructio ns NEEDED (route: topical) Med Classific ation: Dermatolo gical Clotrimazol e AF 1 % topical cream 02-16 00:00: 00 Yes [id number] Per instruc tions 2 TIMES DAILY Per [...] MAINTAIN SITUATIONAL AWARENESS AND WILL NOTIFY CLINICAL TRACK GRINDER AND PHYSICIAN/PROVIDER WITH ANY CHANGE IN CONDITION. [code = SKILLED NURSE TO PERFORM ENVIRONMENTAL SAFETY RISK ASSESSMENT AND FALL RISK ASSESSMENT AND PROVIDE INSTRUCTION TO IMPLEMENT ENVIRONMENTAL SAFETY AND FALL PREVENTION STRATEGIES THROUGHOUT THE CERTIFICATION PERIOD. SKILLED NURSE WILL MAINTAIN SITUATIONAL AWARENESS AND WILL NOTIFY CLINICAL TRACK GRINDER AND PHYSICIAN/PROVIDER WITH ANY CHANGE IN CONDITION.] [...] PRIOR LEVEL OF MOBILITY WAS INDEPENDENT IN [facility]. PATIENT HAS BEEN NON-AMBULATORY DID TAKE A FEW STEPS WITH HER SISTER YESTERDAY. PAST MEDICAL HISTORY INCLUDES CEREBRAL WHITE MATTER DISEASE, SYNCOPE, HYPERLIPIDEMIA, CONSTIPATION, DEMENTIA, DOWN SYNDROME, OSTEOPENIA, RIGHT ANKLE FRACTURE, CVA, MITRAL VALVE REGURGITATION, LEFT BBB IN PULMONARY EDEMA. BASELINE WAS INDEPENDENT IN [facility] AMBULATORY GENERAL GOAL IS TO RETURN TO [...] FUNCTIONAL MOBILITY TRAINING STRENGTH TRAINING ENDURANCE TRAINING. [facility] AGREES WITH PLAN OF CARE. [code = [...] PRIOR LEVEL OF MOBILITY WAS INDEPENDENT IN [facility]. PATIENT HAS BEEN NON-AMBULATORY DID TAKE A FEW STEPS WITH HER SISTER YESTERDAY. PAST MEDICAL HISTORY INCLUDES CEREBRAL WHITE MATTER DISEASE, SYNCOPE, HYPERLIPIDEMIA, CONSTIPATION, DEMENTIA, DOWN SYNDROME, OSTEOPENIA, RIGHT ANKLE FRACTURE, CVA, MITRAL VALVE REGURGITATION, LEFT BBB IN PULMONARY EDEMA. BASELINE WAS INDEPENDENT IN [facility] AMBULATORY GENERAL GOAL IS TO RETURN TO [...] FUNCTIONAL MOBILITY TRAINING STRENGTH TRAINING ENDURANCE TRAINING. [facility] AGREES WITH PLAN OF CARE.] Goal 2025-01-26 Patient Goal - P ER CG TO B ABLE TO WALK AGAIN Goal Patient Goal - P ER CG TO B ABLE TO WALK AGAIN Goal 2025-02-03 Patient Goal - P ER CG TO B ABLE TO WALK AGAIN Goal Provider Goal - A PLAN OF CARE WILL BE ESTABLISHED THAT MEETS PATIENT'S LONG-TERM NEEDS AND INCLUDES PATIENT GOAL FOR HOME [...] End Date/Time Encounter Type Admission Type Attending [facility] Department Encounter ID Discharge Date Discharge Status Discharge Condition Discharge Reason Percent Goals Met 2025-02-06 00:00:00 2025-04-06 00:00:00 Outpatient DAIRTPALAK BRITO ([facility]), [place] [facility] [id number] 34.62
== END 2025-03-10 15:01 | disposition home health service (06) | DRG 393 ==
LOC: HO.ED 03-05 03:28 → HO.EDOVER 03-05 04:19 → HO.S3 03-05 19:40 → HO.IMC 03-05 19:52
PROVIDERS: Physician Assistant Medical; Admitting Provider Physician Assistant; Emergency Provider Emergency Medicine; PCP Internal Medicine; Visit Provider Student in an Organized Health Care Education/Training Program
DX: K94.22 Gastrostomy infection (principal); J69.0 Pneumonitis due to inhalation of food and vomit; L03.311 Cellulitis of abdominal wall; I82.612 Acute embolism and thrombosis of superficial veins of left upper extremity; E03.9 Hypothyroidism, unspecified; K62.89 Other specified diseases of anus and rectum; F03.90 Unspecified dementia, unspecified severity, without behavioral disturbance, psychotic disturbance, mood disturbance, and anxiety; I95.89 Other hypotension; R13.10 Dysphagia, unspecified; G90.9 Disorder of the autonomic nervous system, unspecified; Q90.9 Down syndrome, unspecified; Z79.82 Long term (current) use of aspirin; Z79.890 Hormone replacement therapy; Z79.899 Other long term (current) drug therapy
CPT/HCPCS: 36415; 71250; 74177; 80048; 80053; 83605; 83735; 85025; 87040; 93005; 93971; 99285; J0696; J1271; J1650; J1885; J1938; J2250; J7120; Q9967

== ENCOUNTER → 2025-03-05 00:01 | Outpatient (BNV) | payer MEDICARE, MEDICAID, SELFPAY | PROVIDERS: Emergency Provider Emergency Medicine; PCP Internal Medicine; Visit Provider Radiology Diagnostic Radiology | DX: K94.22 Gastrostomy infection (principal) | CPT/HCPCS: 74177 ==

== ENCOUNTER 2025-03-05 03:30 | Outpatient (BNV) | payer MEDICARE, MEDICAID, SELFPAY | END 2025-03-05 09:53 | PROVIDERS: Admitting Provider Physician Assistant; Emergency Provider Emergency Medicine; PCP Internal Medicine; Visit Provider Internal Medicine Cardiovascular Disease | DX: I45.4 Nonspecific intraventricular block (principal); R00.1 Bradycardia, unspecified | CPT/HCPCS: 93010 ==

== ENCOUNTER 2025-03-05 03:30 | Outpatient (BNV) | payer MEDICARE, MEDICAID, SELFPAY | END 2025-03-07 15:22 | PROVIDERS: Admitting Provider Physician Assistant; Emergency Provider Emergency Medicine; PCP Internal Medicine; Visit Provider Radiology Diagnostic Radiology | DX: R22.32 Localized swelling, mass and lump, left upper limb (principal) | CPT/HCPCS: 93971 ==

== ENCOUNTER → 2025-03-05 03:30 | Outpatient (BNV) | payer MEDICARE, MEDICAID, SELFPAY | PROVIDERS: Admitting Provider Physician Assistant; Emergency Provider Emergency Medicine; PCP Internal Medicine; Visit Provider Surgery | DX: K94.22 Gastrostomy infection (principal); L03.319 Cellulitis of trunk, unspecified | CPT/HCPCS: 99231; 99499 ==

== ENCOUNTER → 2025-03-05 03:30 | Outpatient (BNV) | payer MEDICARE, MEDICAID, SELFPAY | PROVIDERS: Admitting Provider Physician Assistant; Emergency Provider Emergency Medicine; PCP Internal Medicine; Visit Provider Student in an Organized Health Care Education/Training Program | DX: K94.22 Gastrostomy infection (principal); L03.319 Cellulitis of trunk, unspecified; J69.0 Pneumonitis due to inhalation of food and vomit | CPT/HCPCS: 99223; 99499 ==

== ENCOUNTER 2025-03-17 12:41 | Outpatient (AMB) | payer MEDICARE, MEDICAID, SELFPAY ==
--- NOTE | 2025-03-17 12:46 | A.OFFPC_ITS ---
Vital Signs 03/17/25 12:49 Height 4 ft 3 in Weight 78 lb BMI 21.1 BP 100/70 Blood Pressure Location Lt brachial Position Sitting Temp 97.3 F Temp Source Temporal Artery Scan Intake Visit Reasons: [facility] 03/10 cellulitis Intake Note: Patient is here for hospital discharge and TCM follow up. Patient was discharged from [facility] on 03/11/25. Highway Engineering Teacher Required: No Point Of Care Specialist: Present Accompanied by: STAFF Allergies Sulfa (Sulfonamide Antibiotics) Allergy (Mild, Verified 03/17/25 12:48) HIVES sulfamethoxazole (From Bactrim) Allergy (Mild, Verified 03/17/25 12:48) HIVES amoxicillin (Amoxicillin) Allergy (Unknown, Verified 03/17/25 12:48) HIVES Clindamycin HCl Allergy (Unknown, Verified 03/17/25 12:48) rash trimethoprim (From Bactrim) Allergy (Unknown, Verified 03/17/25 12:48) HIVES Tobacco use date assessed: 03/17/25 Fall risk assessment: No Falls in past year Last assessed Fall Risk: 03/17/25 Dental Screening Dental Screen Date: 02/17/25 [facility] TCM TCM Information Date of Discharge 03/10/25 Discharged From [facility] HPI Comments History of Present Illness Details 64 y/o Female patient who [facility] to [facility] accompanied by Commodity Specialist for HDF. She was admitted at [facility] on 03/05 - 03/10 for an evaluation and treatment of Gtube/Abdominal wall Cellulitis, Cdiff infection due to chronic use of Abx and Pneumonia LLL. She was treated at the hospital and discharged back to Longterm on stable condition. Pt does have h/o Multiple Hospital admissions between [facility] and [facility] - due to chronic Aspiration pneumonia, C-diff infections and G-tube site leakage. The Commodity Specialist ([facility] home attendant) is concerned about this Pt's quality of life - She is planning to have a discussion with the Patient's Sister regarding Hospice Care. Commodity Specialist believes having a Hospice Nurse available 24/7 around the clock will be beneficial and hopeful prevent frequent hospital visits and admissions. She feels that the Caretakers at the senior living are not Skilled enough to care for this complex patient. She would like to have the PCP's (Dr. HAMM) Support on this and even initiate Hospice orders. I discussed the case with PCP (Dr. Hamm) who did not feel Hospice care is needed at this time - he will be willing to order retirement to come to the home to provide Care. [facility] Medical History (Updated 03/17/25 @ 15:29 by Stephani Mackey NP) G-tube site cellulitis Cutaneous candidiasis Medicare annual wellness visit, subsequent Preoperative cardiovascular examination New onset left bundle branch block (LBBB) Lethargy COVID-19 virus infection Mental status alteration Colon cancer screening Atlantoaxial instability Cholelithiasis Mental and behavioral problem Hypercholesterolemia Vitamin D deficiency Closed right ankle fracture Patent foramen ovale Hypothyroid Megaloblastic anemia CVA (cerebral vascular accident) Cataracts, bilateral Down syndrome Jorge L's disease Surgical History (Updated 03/17/25 @ 12:54 by BREANNA Amador) History of surgery Clubfoot Hx of tubal ligation Hx of cataract surgery History of colonoscopy Family History Father No problems noted. Mother Hx of cancer of lung Social History Household Members: Other Household Members Other:: long-term Housing: Other Housing Other:: long-term Do you presently have visiting nurse or other home services: No Unable to assess alcohol history related to: Unknown Alcohol intake: never Comment: long-term staff at bedside Patient Tobacco Use Status: Never used Tobacco e-Cigarette/Vaping Use: Never Used Second Hand Smoke Exposure: No Advance Directives Date on File: 10/26/24 service: No Current occupational status: disabled Cognitive needs: Yes (Wheelchair) Hearing needs: No Vision needs: Yes (Glasses) Questionnaire Thrive Questionnaire Date Thrive assessed: 03/06/25 NEHA-7 AMB Questionnaire NEHA-7 Date NEHA - 7 assessed: 02/17/25 Source: Developed by Drs. Monico Cuellar, Peggy Morris, Parvez Guerrier and colleagues, with an educational tesha from [employer]. Review of Systems Const All systems reviewed & are unremarkable except as noted in HPI and below Physical exam (Primary Care) Vital Signs: Last Vital Signs Temp 97.3 F 03/17/25 12:49 BP 100/70 03/17/25 12:49 BMI result Body Mass Index 21.1 Tobacco/Smoking Status: Tobacco use Status Tobacco use date assessed 03/17/25 03/17/25 12:56 Patient Tobacco Use Status Never used Tobacco 03/17/25 12:47 e-Cigarette/Vaping Use Never Used 03/17/25 12:47 Thrive Assessment: Date of Thrive Assessment Date Thrive assessed 03/06/25 03/17/25 12:47 Const Other: Pt sitting comfortably on her wheelchair General: no acute distress Nutritional Appearance: underweight Limitations: wheelchair Resp Effort & Inspection: normal respiratory effort Cardio Heart sounds: S1 normal heart sound present and S2 normal heart sound present Skin Other: The tissue surrounding the G-tube site is less excoriated, indurated and erythematous, appears to be a mixed infection Tinea versus cellulitis, with chafed skin. Coding Level of Care Code TCM Mod MDM <= 14 Days Diagnoses Aspiration pneumonia of left lower lobe, unspecified aspiration pneumonia type J69.0 Aspiration pneumonia type: unspecified Laterality: left Lung location: lower lobe of lung G-tube site cellulitis K94.22; L03.319 Urinary incontinence R32 Time Spent (min) 20 Assessment & Plan Assessment & Plan (1) Aspiration pneumonia: Code(s): J69.0 - Pneumonitis due to inhalation of food and vomit Category: Medical Qualifiers: Aspiration pneumonia type: unspecified Laterality: left Lung location: lower lobe of lung Qualified Code(s): J69.0 - Pneumonitis due to inhalation of food and vomit Plan: Resolved - stable. (2) G-tube site cellulitis: Code(s): K94.22 - Gastrostomy infection; L03.319 - Cellulitis of trunk, unspecified Category: Medical Plan: Mild improvement on the skin - still mixture of Tinea vs Cellulitis infection. She was prescribed Zinc Oxide to apply on the skin around the Gtube. (3) Urinary incontinence: Code(s): R32 - Unspecified urinary incontinence Category: Medical Plan: Ordered Small size Briefs/diapers and Gloves. Medications: New [ADULT BRIEFS/DIAPERS SMALL SIZE] As directed 60 ea 0RF R32 - Unspecified urinary incontinence [NITRILE GLOVES] As directed 4 ea 0RF R32 - Unspecified urinary incontinence
[2025-03-17 12:49] VITALS: BP 100/70; TEMP 36.3; BMI 21.1
--- OUTSIDE RECORDS SUMMARY | 2025-03-17 15:03 | XMS_ITS | Encounter Summary ---
Author Organization [facility] Address [address] [place] [address] Care Team Providers Care Biomedical Technician Name Role Phone Erickson Melton MD Primary Care Provider [phone] Encounter Details Date Type Department Care Team (Late st Contact Info) Description 09/13/2024 Lab Requisition [facility] Lab [address] [facility] [place] [address] Erickson Melton MD [address] [place] [id number] Anemia, unspecified; Hypothyroidism, unspecified; Other seizures (CMS/HCC [...] - 35 ug/mL 09/16/2024 12:30 PM EDT [facility] Comment: If applicable, any drug confirmation testing reported here was developed and the performance characteristics determined by [facility]. This confirmation testing has not been cleared or approved by the FDA. The laboratory is regulated under CLIA as qualified to perform high-complexity testing. This test is used for patient testing purposes. It should not be regarded as investigational or for research. Test performed at [facility], [address] , [place] [address] Yessy Coulter MD, PhD - Software Engineer Sales Blood Venous blood specimen / Unknown Venipuncture / Unknown 09/13/2024 8:54 AM EDT 09/13/2024 10:34 AM EDT Erickson Melton MD LAB BLOOD ORDERABLES Final Result [facility] [address] [place] [address] * (ABNORMAL) Thyroid stimulating hormone (09/13/2024 8:54 AM EDT) TSH 7.10(H) 0.40 - 4.00 mcIU/mL LAB CHEMISTRY METHOD 09/13/2024 1:18 PM EDT [facility] Blood Venous blood specimen / Unknown Venipuncture / Unknown 09/13/2024 8:54 AM EDT 09/13/2024 10:34 AM EDT us Erickson Melton MD LAB BLOOD ORDERABLES Final Result [facility] [address] [place] [address], * (ABNORMAL) Comprehensive metabolic panel (09/13/2024 8:54 AM EDT) Sodium 142 133 - 145 mmol/L LAB CHEMISTRY METHOD 09/13/2024 1:41 PM [facility] Potassium 4.3 3.5 - 5.5 mmol/L LAB CHEMISTRY METHOD 09/13/2024 1:41 PM [facility] Chloride 99 96 - 110 mmol/L LAB CHEMISTRY METHOD 09/13/2024 1:41 PM [facility] CO2 36(H) 21 - 32 mmol/L LAB CHEMISTRY METHOD 09/13/2024 1:41 PM [facility] Comment:Results verified by repeat testing Anion Gap 7 3 - 11 LAB CHEMISTRY METHOD 09/13/2024 1:41 PM [facility] Glucose 105(H) 70 - 100 mg/dL LAB CHEMISTRY METHOD 09/13/2024 1:41 PM [facility] BUN 23 5 - 25 mg/dL LAB CHEMISTRY METHOD 09/13/2024 1:41 PM [facility] Creatinine 0.77 0.50 - 1.10 mg/dL LAB CHEMISTRY METHOD 09/13/2024 1:41 PM [facility] eGFR 86 >=60 mL/min/1. 73m2 LAB CHEMISTRY METHOD 09/13/2024 1:41 PM [facility] Comment:Calculation based on the Chronic Kidney Disease Epidemiology Collaboration (CKD-EPI) equation refit without adjustment for race. BUN/Creatinine Ratio 29.9 LAB CHEMISTRY METHOD 09/13/2024 1:41 PM [facility] Calcium 8.9 8.5 - 10.5 mg/dL LAB CHEMISTRY METHOD 09/13/2024 1:41 PM T [facility] AST (SGOT) 25 10 - 42 unit/L LAB CHEMISTRY METHOD 09/13/2024 1:41 PM [facility] ALT (SGPT) 24 10 - 60 unit/L LAB CHEMISTRY METHOD 09/13/2024 1:41 PM T [facility] Alkaline Phosphatase 118 42 - 121 unit/L LAB CHEMISTRY METHOD 09/13/2024 1:41 PM EDT [facility] Total Protein 6.9 6.0 - 8.0 g/dL LAB CHEMISTRY METHOD 09/13/2024 1:41 PM [facility] Albumin 2.8(L) 3.2 - 5.0 g/dL LAB CHEMISTRY METHOD 09/13/2024 1:41 PM [facility] Total Bilirubin 0.2 0.0 - 1.4 mg/dL LAB CHEMISTRY METHOD 09/13/2024 1:41 PM [facility] Blood Venous blood specimen / Unknown Venipuncture / Unknown 09/13/2024 8:54 AM EDT 09/13/2024 10:34 AM EDT Erickson Melton MD LAB BLOOD ORDERABLES Final Result [facility] [address] [place] [address], * (ABNORMAL) Complete blood count (09/13/2024 8:54 AM EDT) WBC 7.6 4.8 - 10.8 K/mcL LAB HEMETOLOGY METHOD 09/13/2024 12:06 PM [facility] RBC 3.60(L) 3.80 - 4.80 M/mcL LAB HEMETOLOGY METHOD 09/13/2024 12:06 PM [facility] Hemoglobin 12.1 11.5 - 16.0 g/dL LAB HEMETOLOGY METHOD 09/13/2024 12:06 PM EDT [facility] Hematocrit 38.2 35.0 - 47.0 % LAB HEMETOLOGY METHOD 09/13/2024 12:06 PM [facility] MCV 107.0(H) 79.0 - 98.0 FL LAB HEMETOLOGY METHOD 09/13[facility]24 [facility] MCH 33.9(H) 27.0 - 32.0 pcg LAB HEMETOLOGY METHOD 09/13/2024 12:06 PM [facility] MCHC 31.7(L) 32.0 - 37.0 g/dL LAB HEMETOLOGY METHOD 09/13/2024 12:06 PM [facility] RDW 14.0 11.0 - 15.0 % LAB HEMETOLOGY METHOD 09/13/2024 12:06 PM [facility] Platelets 327 130 - 400 K/mcL LAB HEMETOLOGY METHOD 09/13/2024 12:06 PM [facility] MPV 11.0 7.0 - 11.0 FL LAB HEMETOLOGY METHOD 09/13/2024 12:06 PM [facility] NRBC 0.0 <1.0 % LAB HEMETOLOGY METHOD 09/13/2024 12:06 PM [facility] NRBC Absolute 0.00 <0.10 K/mcL LAB HEMETOLOGY METHOD 09/13/2024 12:06 PM [facility] Blood Venous blood specimen / Unknown Venipuncture / Unknown 09/13/2024 8:54 AM EDT 09/13/2024 10:34 AM EDT us Erickson Melton MD LAB BLOOD ORDERABLES Final Result [facility] [address] [place] [address], documented in this encounter Visit Diagnoses Diagnosis [...] documented as of this encounter Care Teams Biomedical Technician Relationship Specialty Start Date End Date Erickson Melton MD [address] [place] [phone] PCP - General Internal Medicine 09/13/24 documented as of this encounter
--- OUTSIDE RECORDS SUMMARY | 2025-03-17 15:03 | XMS_ITS | Encounter Summary ---
Author Organization [facility] Address [address] [place] [address] Care Team Providers Care Bordereau Clerk Name Role Phone Erickson Melton MD Primary Care Provider [phone]- [phone] Encounter Details Date Type Department Care Team (Late st Contact Info) Description 12/05/2024 Lab Requisition [facility] - Main Lab [address] [facility] [place] [address] Erickson Melton MD [address] [place] [address] Pneumonia, unspecified organism; Anemia, unspecified Social History [...] your loved ones. For example, child care education coordinator or elderly care for an older adult? [...] mmol/L LAB CHEMISTRY METHOD 12/06/2024 11:[address] [facility] Potassium 4.1 3.5 - 5.5 mmol/L LAB CHEMISTRY METHOD 12/06/2024 11:[address] [facility] Comment:Hemolysis present Chloride 106 96 - 110 mmol/L LAB CHEMISTRY METHOD 12/06/2024 11:[address] [facility] CO2 26 21 - 32 mmol/L LAB CHEMISTRY METHOD 12/06/2024 11:[address] [facility] Anion Gap 10 3 - 11 LAB CHEMISTRY METHOD 12/06/2024 11:[address] [facility] Glucose 73 70 - 100 mg/dL LAB CHEMISTRY METHOD 12/06/2024 11:[address] [facility] BUN 24 5 - 25 mg/dL LAB CHEMISTRY METHOD 12/06/2024 11:[address] [facility] Creatinine 0.65 0.50 - 1.10 mg/dL LAB CHEMISTRY METHOD 12/06/2024 11:[address] [facility] eGFR 98 >=60 mL/min/1. 73m2 LAB CHEMISTRY METHOD 12/06/2024 11:[address] [facility] Comment:Calculation based on the Chronic Kidney Disease Epidemiology Collaboration (CKD-EPI) equation refit without adjustment for race. BUN/Creatinine Ratio 36.9 LAB CHEMISTRY METHOD 12/06/2024 11:[address] [facility] Calcium 8.4(L) 8.5 - 10.5 mg/dL LAB CHEMISTRY METHOD 12/06/2024 11:[address] [facility] Blood Venous blood specimen / Unknown Venipuncture / Unknown 12/06/2024 7:48 AM EDT 12/06/2024 9:05 AM EDT Erickson Melton MD LAB BLOOD ORDERABLES Final Result [facility] [address] [place] [address], * (ABNORMAL) Complete blood count (12/06/2024 7:48 AM EDT) WBC 3.8(L) 4.8 - 10.8 K/mcL LAB HEMETOLOGY METHOD 12/06/2024 11:40 AM EDT [facility] RBC 3.80 3.80 - 4.80 M/mcL LAB HEMETOLOGY METHOD 12/06/2024 11:40 AM EDT [facility] Hemoglobin 12.7 11.5 - 16.0 g/dL LAB HEMETOLOGY METHOD [facility] Hematocrit 40.7 35.0 - 47.0 % LAB HEMETOLOGY METHOD 12/06/2024 11:40 AM EDT [facility] MCV 108.5(H) 79.0 - 98.0 FL LAB HEMETOLOGY METHOD 12/06/2024 11:40 AM EDT [facility] MCH 33.9(H) 27.0 - 32.0 pcg LAB HEMETOLOGY METHOD 12/06/2024 11:40 AM EDT [facility] MCHC 31.2(L) 32.0 - 37.0 g/dL LAB HEMETOLOGY METHOD 12/06/2024 11:40 AM EDT [facility] RDW 15.0 11.0 - 15.0 % LAB HEMETOLOGY METHOD 12/06/2024 11:40 AM EDT [facility] Platelets 160 130 - 400 K/mcL LAB HEMETOLOGY METHOD 12/06[facility]24 [facility] MPV 11.2(H) 7.0 - 11.0 FL LAB HEMETOLOGY METHOD 12/06/2024 11:40 AM EDT [facility] NRBC 0.0 <1.0 % LAB HEMETOLOGY METHOD 12/06/2024 11:40 AM EDT [facility] NRBC Absolute 0.00 <0.10 K/mcL LAB HEMETOLOGY METHOD 12/06/2024 11:40 AM EDT [facility] Blood Venous blood specimen / Unknown Venipuncture / Unknown 12/06/2024 7:48 AM EDT 12/06/2024 9:05 AM EDT Erickson Melton MD LAB BLOOD ORDERABLES Final Result [facility] [address] [place] [address], documented in this encounter Visit Diagnoses Diagnosis Pneumonia, unspecified organism Anemia, unspecified documented in this encounter Additional Health Concerns Infection Onset Date Last Indicated Resolved Time C. difficile Rule-Out 01/13/2025 01/13/20252024 4:32 AM EDT C. difficile Rule-Out 01/13/2025 01/13/20252024 10:19 AM EDT C. difficile 01/13/2025 01/13/2025 02/06/2025 7:06 PM EDT documented as of this encounter Care Teams [place] Clerk Relationship Specialty Start Date End Date Erickson Melton MD [address] [place] [address] PCP - General Internal Medicine 09/13/24 documented as of this encounter
--- OUTSIDE RECORDS SUMMARY | 2025-03-17 15:03 | XMS_ITS | Encounter Summary ---
Author Organization [facility] Address [address] [place] [address] Care Team Providers Care Lease Purchase Truck Driver Name Role Phone Erickson Melton MD Primary Care Provider +1- [phone] Encounter Details Date Type Department Care Team (Late st Contact Info) Description 09/19/2024 Lab Requisition [facility] - Main Lab [address] [facility] [place] [address] Erickson Melton MD [address] [place] [id number] Anemia, unspecified; Hypothyroidism, unspecified; Other seizures (CMS/HCC [...] mmol/L LAB CHEMISTRY METHOD 09/20/2024 11:[address] [facility] Potassium 4.0 3.5 - 5.5 mmol/L LAB CHEMISTRY METHOD 09/20/2024 11:[address] [facility] Chloride 97 96 - 110 mmol/L LAB CHEMISTRY METHOD 09/20/2024 11:[address] [facility] CO2 36(H) 21 - 32 mmol/L LAB CHEMISTRY METHOD 09/20/2024 11:[address] [facility] Anion Gap 6 3 - 11 LAB CHEMISTRY METHOD 09/20/2024 11:[address] [facility] Glucose 121(H) 70 - 100 mg/dL LAB CHEMISTRY METHOD 09/20/2024 11:[address] [facility] BUN 27(H) 5 - 25 mg/dL LAB CHEMISTRY METHOD 09/20/2024 11:[address] [facility] Creatinine 0.71 0.50 - 1.10 mg/dL LAB CHEMISTRY METHOD 09/20/2024 11:[address] [facility] eGFR 95 >=60 mL/min/1. 73m2 LAB CHEMISTRY METHOD 09/20/2024 11:[address] [facility] Comment:Calculation based on the Chronic Kidney Disease Epidemiology Collaboration (CKD-EPI) equation refit without adjustment for race. BUN/Creatinine Ratio 38.0 LAB CHEMISTRY METHOD 09/20/2024 11:[address] [facility] Calcium 8.4(L) 8.5 - 10.5 mg/dL LAB CHEMISTRY METHOD 09/20/2024 11:[address] [facility] Blood Venous blood specimen / Unknown Venipuncture / Unknown 09/20/2024 7:49 AM EDT 09/20/2024 10:04 AM EDT Erickson Melton MD LAB BLOOD ORDERABLES Final Result [facility] [address] [place] [address], * (ABNORMAL) Complete blood count (09/20/2024 7:49 AM EDT) WBC 6.1 4.8 - 10.8 K/mcL LAB HEMETOLOGY METHOD 09/20/2024 10:34 AM EDT [facility] RBC 3.30(L) 3.80 - 4.80 M/mcL LAB HEMETOLOGY METHOD 09/20/2024 10:34 AM EDT [facility] Hemoglobin 11.1(L) 11.5 - 16.0 g/dL LAB HEMETOLOGY METHOD 09/20/2024 10:34 AM EDT [facility] Hematocrit 36.2 35.0 - 47.0 % LAB HEMETOLOGY METHOD 09/20/2024 10:34 AM EDT [facility] MCV 109.7(H) 79.0 - 98.0 FL LAB HEMETOLOGY METHOD [facility] MCH 33.6(H) 27.0 - 32.0 pcg LAB HEMETOLOGY METHOD 09/20/2024 10:34 AM EDT [facility] MCHC 30.7(L) 32.0 - 37.0 g/dL LAB HEMETOLOGY METHOD 09/20/2024 10:34 AM EDT [facility] RDW 14.6 11.0 - 15.0 % LAB HEMETOLOGY METHOD [facility] Platelets 269 130 - 400 K/mcL LAB HEMETOLOGY METHOD 09/20/2024 10:34 AM EDT [facility] MPV 11.5(H) 7.0 - 11.0 FL LAB HEMETOLOGY METHOD 09/20/2024 10:34 AM EDT [facility] NRBC 0.0 <1.0 % [facility] 09/20/2024 10:34 AM EDT [facility] NRBC Absolute 0.00 <0.10 K/mcL LAB HEMETOLOGY METHOD 09/20/2024 10:34 AM EDT [facility] Blood Venous blood specimen / Unknown Venipuncture / Unknown 09/20/2024 7:49 AM EDT 09/20/2024 10:04 AM EDT Erickson Melton MD LAB BLOOD ORDERABLES Final Result [facility] [address] [place] [address], documented in this encounter Visit Diagnoses Diagnosis [...] documented as of this encounter Care Teams Lease Purchase Truck Driver Relationship Specialty Start Date End Date Erickson Melton MD [address] [place] [address] PCP - General Internal Medicine 09/13/24 documented as of this encounter
--- OUTSIDE RECORDS SUMMARY | 2025-03-17 15:03 | XMS_ITS | Encounter Summary ---
Author Organization [facility] Address [address] [place] [address] Care Team Providers Care Counter Control Operator Name Role Phone Erickson Melton MD Primary Care Provider +1- [phone] Encounter Details Date Type Department Care Team (Late st Contact Info) Description 11/14/2024 Lab Requisition [facility] - Main Lab [address] [facility] [place] [address] Erickson Melton MD [address] [place] [address] Pneumonia, unspecified organism; Anemia, unspecified Social History [...] for your loved ones. For example, child specialist or elderly care for an older [...] mmol/L LAB CHEMISTRY METHOD 11/15/2024 11:[address] [facility] Potassium 4.3 3.5 - 5.5 mmol/L LAB CHEMISTRY METHOD 11/15/2024 11:[address] [facility] Chloride 103 96 - 110 mmol/L LAB CHEMISTRY METHOD 11/15/2024 11:[address] [facility] CO2 30 21 - 32 mmol/L LAB CHEMISTRY METHOD 11/15/2024 11:[address] [facility] Anion Gap 5 3 - 11 LAB CHEMISTRY METHOD 11/15/2024 11:[address] [facility] Glucose 68(L) 70 - 100 mg/dL LAB CHEMISTRY METHOD 11/15/2024 11:[address] [facility] BUN 26(H) 5 - 25 mg/dL LAB CHEMISTRY METHOD 11/15/2024 11:[address] [facility] Creatinine 0.66 0.50 - 1.10 mg/dL LAB CHEMISTRY METHOD 11/15/2024 11:[address] [facility] eGFR 98 >=60 mL/min/1. 73m2 LAB CHEMISTRY METHOD 11/15/2024 11:[address] [facility] Comment:Calculation based on the Chronic Kidney Disease Epidemiology Collaboration (CKD-EPI) equation refit without adjustment for race. BUN/Creatinine Ratio 39.4 LAB CHEMISTRY METHOD 11/15/2024 11:[address] [facility] Calcium 8.8 8.5 - 10.5 mg/dL LAB CHEMISTRY METHOD 11/15/2024 11:[address] [facility] Blood Venous blood specimen / Unknown Venipuncture / Unknown 11/15/2024 8:04 AM EDT 11/15/2024 10:29 AM EDT Erickson Melton MD LAB BLOOD ORDERABLES Final Result [facility] [address] [place] [address], * (ABNORMAL) Complete blood count (11/15/2024 8:04 AM EDT) WBC 5.4 4.8 - 10.8 K/mcL LAB HEMETOLOGY METHOD 11/15/2024 11:00 AM EDT [facility] RBC 3.80 3.80 - 4.80 M/mcL LAB HEMETOLOGY METHOD 11/15/2024 11:[address] [facility] Hemoglobin 13.0 11.5 - 16.0 g/dL LAB HEMETOLOGY METHOD 11/15/2024 11:[address] [facility] Hematocrit 40.9 35.0 - 47.0 % LAB HEMETOLOGY METHOD 11/15/2024 11:[address] [facility] MCV 107.3(H) 79.0 - 98.0 FL LAB HEMETOLOGY METHOD 11/15/2024 11:[address] [facility] MCH 34.1(H) 27.0 - 32.0 pcg LAB HEMETOLOGY METHOD 11/15/2024 11:[address] [facility] MCHC 31.8(L) 32.0 - 37.0 g/dL LAB HEMETOLOGY METHOD 11/15/2024 11:[address] [facility] RDW 16.0(H) 11.0 - 15.0 % LAB HEMETOLOGY METHOD 11/15/2024 11:[address] [facility] Platelets 225 130 - 400 K/mcL LAB HEMETOLOGY METHOD 11/15/2024 11:[address] [facility] MPV 11.1(H) 7.0 - 11.0 FL LAB HEMETOLOGY METHOD 11/15/2024 11:00 AM EDT [facility] NRBC 0.0 <1.0 % LAB HEMETOLOGY METHOD 11/15/2024 11:00 AM EDT [facility] NRBC Absolute 0.00 <0.10 K/mcL LAB HEMETOLOGY METHOD 11/15/2024 11:00 AM EDT [facility] Blood Venous blood specimen / Unknown Venipuncture / Unknown 11/15/2024 8:04 AM EDT 11/15/2024 10:29 AM EDT Eirckson Melton MD LAB BLOOD ORDERABLES Final Result [facility] [address] [place] [address], documented in this encounter Visit Diagnoses Diagnosis [...] documented as of this encounter Care Teams Counter Control Operator Relationship Specialty Start Date End Date Erickson Melton MD [address] [place] [id number] PCP - General Internal Medicine 09/13/24 documented as of this encounter
--- OUTSIDE RECORDS SUMMARY | 2025-03-17 15:03 | XMS_ITS | Clinical Summary ---
Author Organization [address] Address [address] [place] [id number] Phone Care Team Providers Care Vinyl Welder And Fabricator Name Role Phone Erickson Melton MD Primary Care Provider +1- [phone] Allergies Active Allergy Reactions Criticality Noted Date Comments Amoxicillin Unknown 09/30/2024 Patient has tolerated cefdinir in 2024 at [facility] and also ceftriaxone at [facility] 2024 Clindamycin Unknown 09/30/2024 Sulfa (Sulfonamide Antibiotics) [...] EDT - 02/08/2025 5:00 PM EDT Emergency [facility] Emergency [address] [place] [address] Yasmany Hand MD 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[facility] V24, [facility] V28) (Primary Dx) Discharge Disposition: Home or Self Care 01/18/2025 2:02 PM EDT Anesthesia Event [facility] Interventional Radiology [address] [place] [address] Kwaku Knutson DO 01/12/2025 3:45 PM EDT - 01/25/2025 4:30 PM EDT Hospital Encounter [facility] Medical Surgical Unit [address] [place] [phone] Saran Willis MD Flores, Carlos M, MD Kela, Kashyap Devendrabhai, MD Rasul, Yar M, MD 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) Discharge Disposition: [facility] from Last 3 Months Surgical History Surgery Date Site/Laterality Comments TUBAL LIGATION GASTROTOMY CATARACT EXTRACTION Medical History Medical History Date Comments Down syndrome Dementia ([facility] V24, [facility] V28) CVA (cerebral vascular accident) ([facility] V24, [facility] [place] V28) Hypothyroidism Aspiration pneumonia ([facility] V24, [facility] V28) C. difficile colitis Social History Tobacco [...] loved ones. For example, child and family services specialist or elderly care for an [...] AM EDT POCT GLUCOSE BLOOD Routine 01/17/2025 7 :12 AM EDT POCT GLUCOSE BLOOD Routine 01/17/2025 [...] AND DIFFERENTIAL STAT 01/12/2025 6:55 PM EDT from Last 3 Months Results * Feeding Tube Replacement (02/08/2025 3:35 PM EDT) Narrative Yasmany Hand MD - 02/08/2025 3:35 PM EDT Yasmany Hand MD 02/08/2025 3:38 PM Feeding Tube Replacement Date/Time: 02/08/2025 3:35 PM Performed by: Yasmany Hand MD Authorized by: Yasmany Hand MD Consent: Consent given by: Healthcare agent Risks, benefits, and alternatives were discussed: yes [place] protocol: Patient identity confirmed: Arm band Pre-procedure details: Old tube type: Gastrostomy Old tube size: 18 Fr Sedation: Sedation type: None Procedure details: Patient position: Supine Procedure type: Replacement Bulb inflation volume: 22French 20 cc balloon Post-procedure details: Placement/position confirmation: Gastric contents aspirated and x-ray Placement difficulty: None Procedure completion: Tolerated well, no immediate complications Yasmany Hand MD IN CLINIC/BEDSIDE ORDERAB LES [...] Signed Date: 02/08/2025 14:11 ET Workstation ID: [id number] Transcribed By: Self Edit Transcribed Date: 02/08/2025 [...] the abdomen was obtained. [facility] G-tube is well positioned with balloon insufflated along the greatercurvature of the stomach. Contrast is gastric lumen as well as along theduodenum and proximal jejunal loops. No extravasation. IMPRESSION: Well-positioned gastric tube. -------- FINAL REPORT -------- Dictated By: Shola Leija Dictated Date: 02/08/2025 14:10 ET Assigned Physician: Shola Leija Reviewed and Electronically Signed By: Shola Leija Signed Date: 02/08/2025 14:11 ET Workstation ID: [id number] Transcribed By: Self Edit Transcribed Date: 02/08/2025 14:10 ET Yasmany Hand MD IMG XR PROCEDURES Final R esult * POCT Glucose, blood (01/25/2025 11:43 AM EDT) Only the most recent of44 resultswithin the time period is included. [facility] Glucose POCT 87 70 - 100 mg/dL 01/25/2025 11:45 AM EDT [facility] Blood Capillary blood specimen / Unknown 01/25/2025 11:43 AM EDT 01/25/2025 11:46 AM EDT Jean Paul Medel MD LAB POINT O F CARE TEST DOCKED DEVICE UNSOLICITED RESULTS Final Result [facility] [address] [place] [address], [place] [phone] * (ABNORMAL) Basic metabolic panel (01/25/2025 6:58 AM EDT) Only the most recent of12 resultswithin the time period is included. [facility] Sodium 139 133 - 145 mmol/L LAB CHEMISTRY METHOD 01/25/2025 8:06 AM [facility] Potassium 4.9 3.5 - 5.5 mmol/L LAB CHEMISTRY METHOD 01/25/2025 8:06 AM [facility] Chloride 102 96 - 110 mmol/L LAB CHEMISTRY METHOD 01/25/2025 8:06 AM [facility] CO2 31 21 - 32 mmol/L LAB CHEMISTRY METHOD 01/25/2025 8:06 AM [facility] Anion Gap 6 3 - 11 LAB CHEMISTRY METHOD 01/25/2025 8:06 AM [facility] Glucose 82 70 - 100 mg/dL LAB CHEMISTRY METHOD 01/25/2025 8:06 AM [facility] BUN 29(H) 5 - 25 mg/dL LAB CHEMISTRY METHOD 01/25/2025 8:06 AM [facility] Creatinine 0.84 0.50 - 1.10 mg/dL LAB CHEMISTRY METHOD 01/25/2025 8:06 AM [facility] eGFR 78 >=60 mL/min/1. 73m2 LAB CHEMISTRY METHOD 01/25/2025 8:06 AM [facility] Comment:Calculation based on the Chronic Kidney Disease Epidemiology Collaboration (CKD-EPI) equation refit without adjustment for race. BUN/Creatinine Ratio 34.5 LAB CHEMISTRY METHOD 01/25/2025 8:06 AM [facility] Calcium 9.3 8.5 - 10.5 mg/dL LAB CHEMISTRY METHOD 01/25/2025 8:06 AM [facility] Blood Venous blood specimen / Unknown Venipuncture / Unknown 01/25/2025 6:58 AM EDT 01/25/2025 7:13 AM EDT us Andrea Sanchez MD LAB BLOOD ORDERABLES Final Resul t [facility] [address] [place] [address], [place] [phone] * Lavender tube (01/24/2025 6:51 AM EDT) Only the most recent of4 resultswithin the time period is included. [facility] Extra Tube Hold for add-ons. 01/24/2025 9:01 AM EDT [facility] Comment:Auto resulted. Blood Venous blood specimen / Unknown 01/24/2025 6:51 AM EDT 01/24/2025 7:15 AM EDT Jean Paul Medel MD LAB BLOOD ORDERABLE S Final Result [facility] [address] [place] [address], [place] [phone] * (ABNORMAL) CBC auto differential (01/21/2025 5:34 AM EDT) Only the most recent of8 resultswithin the time period is included. [facility] WBC 7.0 4.8 - 10.8 K/mcL LAB HEMETOLOGY METHOD 01/21/2025 7:15 AM EDT [facility] RBC 4.00 3.80 - 4.80 M/mcL LAB HEMETOLOGY METHOD 01/21/2025 7:15 AM EDT [facility] Hemoglobin 13.2 11.5 - 16.0 g/dL LAB HEMETOLOGY METHOD 01/21/2025 7:15 AM EDT [facility] Hematocrit 41.5 35.0 - 47.0 % LAB HEMETOLOGY METHOD [facility] MCV 104.0(H) 79.0 - 98.0 FL LAB HEMETOLOGY METHOD 01/21/2025 7[facility] MCH 33.1(H) 27.0 - 32.0 pcg LAB HEMETOLOGY METHOD 01/21/2025 7:15 AM [facility] MCHC 31.8(L) 32.0 - 37.0 g/dL LAB HEMETOLOGY METHOD 01/21/2025 7:15 AM [facility] RDW 14.9 11.0 - 15.0 % LAB HEMETOLOGY METHOD 01/21/2025 7:15 AM [facility] Platelets 216 130 - 400 K/mcL LAB HEMETOLOGY METHOD 01/21/2025 7:15 AM [facility] MPV 10.4 7.0 - 11.0 FL LAB HEMETOLOGY METHOD 01/21/2025 7:15 AM [facility] NRBC 0.0 <1.0 % LAB HEMETOLOGY METHOD 01/21/2025 7:15 AM [facility] NRBC Absolute 0.00 <0.10 K/mcL LAB HEMETOLOGY METHOD 01/21/2025 7:15 AM [facility] Neutrophils Relative 73.1 % LAB HEMETOLOGY METHOD 01/21/2025 7:15 AM [facility] Lymphocytes Relative 12.1 % LAB HEMETOLOGY METHOD 01/21/2025 7:15 AM [facility] Monocytes Relative 11.0 % LAB HEMETOLOGY METHOD 01/21/2025 7:15 AM [facility] Eosinophils Relative 2.4 % LAB HEMETOLOGY METHOD 01/21/2025 7:15 AM [facility] Basophils Relative 0.7 % LAB HEMETOLOGY METHOD 01/21/2025 7:15 AM [facility] Immature Granulocytes Relative 0.7 % LAB HEMETOLOGY METHOD 01/21/2025 7:15 AM [facility] Neutrophils Absolute 5.14 1.50 - 7.00 K/[facility] LAB HEMETOLOGY METHOD 01/21/2025 7:15 AM EDT [facility] Lymphocytes Absolute 0.85(L) 1.00 - 5.00 K/[facility] LAB HEMETOLOGY METHOD 01/21/2025 7:15 AM EDT [facility] Monocytes Absolute 0.77 0.20 - 1.00 K/[facility] LAB HEMETOLOGY METHOD 01/21/2025 7:15 AM EDT [facility] Eosinophils Absolute 0.17 0.00 - 0.50 K/[facility] LAB HEMETOLOGY METHOD 01/21/2025 7:15 AM EDT [facility] Basophils Absolute 0.05 0.00 - 0.20 K/[facility] LAB HEMETOLOGY METHOD 01/21/2025 7:15 AM EDT [facility] Immature Granulocytes Absolute 0.05(H) 0.00 - 0.03 K/[facility] LAB HEMETOLOGY METHOD 01/21/2025 7:15 AM EDT [facility] Blood Venous blood specimen / Unknown Venipuncture / Unknown 01/21/2025 5:34 AM EDT 01/21/2025 6:12 AM EDT us Andrea Sanchez MD LAB BLOOD ORDERABLES Final Resul t [facility] [address] [place] [address], * IR Change G-Tube/GJ-Tube Perc Fluoro (01/18/2025 2:54 PM EDT) Anatomical Region Laterality Modality N/A Interventional R adiology 01/19/2025 8:42 AM EDT Impressions 01/19/2025 8:46 AM EDT Impression: 18-[place] gastrostomy tube replacement. Described cellulitis around the gastrostomy tube appears to be responding well to treatment. No progression noted. Anesthesia support required for gastrostomy tube placement due to patient's underlying condition. -------- FINAL REPORT -------- Dictated By: Yves Manning Dictated Date: 01/19/2025 08:42 ET Assigned Physician: Yves Manning Reviewed and Electronically Signed By: Yves Manning Signed Date: 01/19/2025 08:46 ET Workstation ID: [id number] Transcribed By: Self Edit Transcribed Date: 01/19/2025 [...] was removed utilizing pimple technique. A new 18-[place] gastrostomy tube was easily advanced over the [...] tube was removed utilizingpimple technique. A new 18-[place] gastrostomy tube was easily advancedover the wire with balloon inflated in the stomach with a dilute mixtureof STERILE WATER and contrast. Additional administration of contrastthrough the gastrostomy port demonstrates appropriate positioning. TheMolnar disc was advanced to the skin. After being extubated, the patient was discharged in stable condition.Anticipate exchange of gastrostomy tube in 4-6 months IMPRESSION: Impression: 18-[place] gastrostomy tube replacement. Described cellulitis around the gastrostomy tube appears to be respondingwell to treatment. No progression noted. Anesthesia support required for gastrostomy tube placement due topatient's underlying condition. -------- FINAL REPORT -------- Dictated By: Yves Manning Dictated Date: 01/19/2025 08:42 ET Assigned Physician: Yves Manning Reviewed and Electronically Signed By: Yves Manning Signed Date: 01/19/2025 08:46 ET Workstation ID: [id number] Transcribed By: Self Edit Transcribed Date: 01/19/2025 [...] 01/18/2025 2:11 PMStop Time: 01/18/2025 2:11 PM Kwaku Knutson DO ANESTHESIA ORDERABLES Final Res ult * ECG 12 lead (01/18/2025 1:53 AM EDT) Ventricular Rate ECG 59 BPM GEMUSE Atrial Rate 59 BPM GEMUSE P-R Interval 186 ms GEMUSE QRS Duration 120 ms GEMUSE Q-T Interval 488 ms GEMUSE QTc 483 ms GEMUSE P Wave [place] 49 degrees GEMUSE R [place] -43 degrees GEMUSE ECG Interpretation Sinus bradycardia Left bundle branch block Abnormal ECG When compared with ECG of 05-OCT-2024 16:32, No significant change was found Confirmed by KENNETH WALTERS ([id number]) on 01/18/2025 10:18:31 AM GEMUSE 01/18/2025 1:53 AM EDT 01/18/2025 10:18 AM EDT us Andrea Sanchez MD ECG ORDERABLES Final Result Performing Organization Address [facility] de Phone Number GEMUSE * Magnesium (01/14/2025 6:23 AM EDT) Only the most recent of2 resultswithin the time period is included. Pathologist [facility] Magnesium 2.1 1.9 - 2.6 mg/dL LAB CHEMISTRY METHOD 01/14/2025 7:27 AM EDT [facility] Blood Venous blood specimen / Unknown Venipuncture / Unknown 01/14/2025 6:23 AM EDT 01/14/2025 6:46 AM EDT us Vincent Trejo MD LAB BLOOD ORDERABLES Final Re sult Performing Organization Address [facility] de Phone Number [facility] [address] [place] [address], [place] [phone] * (ABNORMAL) Clostridium difficile molecular study (01/13/2025 8:53 AM EDT) [facility] Clostridium difficile PCR Positive (AA) Negative LAB MICROBIOLOGY METHOD 01/13/2025 11:19 AM EDT [facility] Comment: CRITICAL RESULT POSITIVE FOR TOXIN PRODUCING CLOSTRIDIOIDES DIFFICILE, NO ADDITIONAL TESTING IS NECESSARY. REPEAT SAMPLES SHOULD NOT BE SUBMITTED FOR TEST OF CURE. Stool Rectum structure / Unknown Non-blood Collection / Unknown 01/13/2025 8:53 AM EDT 01/13/2025 10:18 AM EDT us Vincent Trejo MD LAB MICROBIOLOGY - GENERAL OR DERABLES Final Result Performing Organization Address [facility] de Phone Number [facility] [address] [place] [address], [place] [phone] * Clostridium difficile toxin (01/13/2025 8:53 AM EDT) Only the most recent of2 resultswithin the time period is included. C difficile Toxins A+B, EIA 01/13/2025 10:19 AM EDT [facility] Comment:Refer to C. difficil e PCR assay for results. Stool Rectum structure / Unknown Non-blood Collection / Unknown 01/13/2025 8:53 AM EDT 01/13/2025 8:53 AM EDT us Vincent Trejo MD LAB MICROBIOLOGY - GENERAL OR DERABLES Final Result [facility] [address] [place] [address], [place] [phone] * US Abdomen Limited (01/13/2025 12:33 AM [...] M.D. on 01/13/2025 01:13:24 us Scot Phyllis Willis MD IMG US PROCEDURES Final Result * CT Abdomen [...] by: Igor Garza M.D. on 01/12/2025 23:25:24 Saran Willis MD IMG CT PROCEDURES Final Result * Lactate (01/12/2025 7:40 PM EDT) [facility] Lactate 0.9 0.4 - 2.0 mmol/L LAB CHEMISTRY METHOD 01/12/2025 8:10 PM EDT [facility] Blood Venous blood specimen / Unknown Venipuncture / Unknown 01/12/2025 7:40 PM EDT 01/12/2025 7:44 PM EDT Saran Willis MD LAB BLOOD ORDERABLES Final Resu lt Performing Organization Address [facility]/ZIP Co de Phone Number [facility] [address] [place] [address], [place] [phone] * Lipase (01/12/2025 6:55 PM EDT) [facility] Lipase 23 13 - 75 unit/L LAB CHEMISTRY METHOD 01/12/2025 7:50 PM EDT [facility] Blood Venous blood specimen / Unknown Venipuncture / Unknown 01/12/2025 6:55 PM EDT 01/12/2025 7:09 PM EDT Bo RENTERIA LAB BLOOD ORDERABLES Ness l Result Performing Organization Address [facility]/ZIP Co de Phone Number [facility] [address] [place] [address], [place] [phone] * (ABNORMAL) Comprehensive metabolic panel (01/12/2025 6:55 PM EDT) [facility] Sodium 141 133 - 145 mmol/L LAB CHEMISTRY METHOD 01/12/2025 8:05 PM [facility] Potassium 4.1 3.5 - 5.5 mmol/L LAB CHEMISTRY METHOD 01/12/2025 8:05 PM [facility] Chloride 106 96 - 110 mmol/L LAB CHEMISTRY METHOD 01/12/2025 8:05 PM [facility] CO2 32 21 - 32 mmol/L LAB CHEMISTRY METHOD 01/12/2025 8:05 PM [facility] Anion Gap 3 3 - 11 LAB CHEMISTRY METHOD 01/12/2025 8:05 PM [facility] Glucose 94 70 - 100 mg/dL LAB CHEMISTRY METHOD 01/12/2025 8:05 PM [facility] BUN 24 5 - 25 mg/dL LAB CHEMISTRY METHOD 01/12/2025 8:05 PM [facility] Creatinine 0.61 0.50 - 1.10 mg/dL LAB CHEMISTRY METHOD 01/12/2025 8:05 PM [facility] eGFR 100 >=60 mL/min/1. 73m2 LAB CHEMISTRY METHOD 01/12/2025 8:05 PM [facility] Comment:Calculation based on the Chronic Kidney Disease Epidemiology Collaboration (CKD-EPI) equation refit without adjustment for race. BUN/Creatinine Ratio 39.3 LAB CHEMISTRY METHOD 01/12/2025 8:05 PM [facility] Calcium 8.5 8.5 - 10.5 mg/dL LAB CHEMISTRY METHOD 01/12/2025 8:05 PM [facility] AST (SGOT) 22 10 - 42 unit/L LAB CHEMISTRY METHOD 01/12/2025 8:05 PM [facility] ALT (SGPT) 19 10 - 60 unit/L LAB CHEMISTRY METHOD 01/12/2025 8:05 PM [facility] Alkaline Phosphatase 80 42 - 121 unit/L LAB CHEMISTRY METHOD 01/12/2025 8:05 PM EDT [facility] Total Protein 6.0 6.0 - 8.0 g/dL LAB CHEMISTRY METHOD 01/12/2025 8:05 PM EDT [facility] Albumin 2.6(L) 3.2 - 5.0 g/dL LAB CHEMISTRY METHOD 01/12/2025 8:05 PM EDT [facility] Total Bilirubin 0.3 0.0 - 1.4 mg/dL LAB CHEMISTRY METHOD 01/12/2025 8:05 PM EDT [facility] Blood Venous blood specimen / Unknown Venipuncture / Unknown 01/12/2025 6:55 PM EDT 01/12/2025 7:09 PM EDT us Bo RENTERIA LAB BLOOD ORDERABLES Ness winston Result [facility] [address] [place] [address], from Last 3 Months Insurance MEDICARE MEDICAID - [place] Advance Directives Documents on File Type Date Recorded 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 Communication [facility] Care Agent ([place]) Care Teams Vinyl Welder And Fabricator Relationship Specialty Start Date End Date Erickson Melton MD [address] [place] [address] PCP - General Internal Medicine 09/13/24
--- OUTSIDE RECORDS SUMMARY | 2025-03-17 15:03 | XMS_ITS | Encounter Summary ---
Author Organization [facility] Address [address] [place] [address] Care Team Providers Care Yield Loss Inspector Name Role Phone Erickson Melton MD Primary Care Provider [phone]- [phone] Encounter Details Date Type Department Care Team (Late st Contact Info) Description 11/28/2024 Lab Requisition [facility] - Main Lab [address] [facility] [place] [address] Erickson Melton MD [address] [place] [address] Pneumonia, unspecified organism; Anemia, unspecified Social History [...] mmol/L LAB CHEMISTRY METHOD 11/29/2024 7:09 AM [facility] Potassium 4.2 3.5 - 5.5 mmol/L LAB CHEMISTRY METHOD 11/29/2024 7:09 AM [facility] Chloride 103 96 - 110 mmol/L LAB CHEMISTRY METHOD 11/29/2024 7:09 AM [facility] CO2 29 21 - 32 mmol/L LAB CHEMISTRY METHOD 11/29/2024 7:09 AM [facility] Anion Gap 7 3 - 11 LAB CHEMISTRY METHOD 11/29/2024 7:09 AM [facility] Glucose 89 70 - 100 mg/dL LAB CHEMISTRY METHOD 11/29/2024 7:09 AM [facility] BUN 23 5 - 25 mg/dL LAB CHEMISTRY METHOD 11/29/2024 7:09 AM [facility] Creatinine 0.64 0.50 - 1.10 mg/dL LAB CHEMISTRY METHOD 11/29/2024 7:09 AM [facility] eGFR 99 >=60 mL/min/1. 73m2 LAB CHEMISTRY METHOD 11/29/2024 7:09 AM [facility] Comment:Calculation based on the Chronic Kidney Disease Epidemiology Collaboration (CKD-EPI) equation refit without adjustment for race. BUN/Creatinine Ratio 35.9 LAB CHEMISTRY METHOD 11/29/2024 7:09 AM [facility] Calcium 9.6 8.5 - 10.5 mg/dL LAB CHEMISTRY METHOD 11/29/2024 7:09 AM [facility] Blood Venous blood specimen / Unknown Venipuncture / Unknown 11/29/2024 5:44 AM EDT 11/29/2024 6:24 AM EDT us Erickson Melton MD LAB BLOOD ORDERABLES Final Result [facility] [address] [place] [address], * (ABNORMAL) Complete blood count (11/29/2024 5:44 AM EDT) WBC 3.9(L) 4.8 - 10.8 K/mcL LAB HEMETOLOGY METHOD 11/29/2024 6:54 AM EDT [facility] RBC 3.90 3.80 - 4.80 M/mcL LAB HEMETOLOGY METHOD 11/29/2024 6:54 AM EDT [facility] Hemoglobin 13.1 11.5 - 16.0 g/dL LAB HEMETOLOGY METHOD 11/29/2024 6:54 AM EDT [facility] Hematocrit 41.5 35.0 - 47.0 % LAB HEMETOLOGY METHOD 11/29/2024 6:54 AM EDT [facility] MCV 106.1(H) 79.0 - 98.0 FL LAB HEMETOLOGY METHOD 11/29/2024 6:54 AM EDT [facility] MCH 33.5(H) 27.0 - 32.0 pcg LAB HEMETOLOGY METHOD 11/[facility]24 [facility] MCHC 31.6(L) 32.0 - 37.0 g/dL LAB HEMETOLOGY METHOD 11/29/2024 6:54 AM EDT [facility] RDW 15.2(H) 11.0 - 15.0 % LAB HEMETOLOGY METHOD 11/29/2024 6:54 AM EDT [facility] Platelets 200 130 - 400 K/mcL LAB HEMETOLOGY METHOD 11/29/2024 6:54 AM EDT [facility] MPV 10.8 7.0 - 11.0 FL LAB HEMETOLOGY METHOD 11/29/2024 6:54 AM EDT [facility] NRBC 0.0 <1.0 % LAB HEMETOLOGY METHOD 11/29/2024 6:54 AM EDT [facility] NRBC Absolute 0.00 <0.10 K/mcL LAB HEMETOLOGY METHOD 11/29/2024 6:54 AM EDT [facility] Blood Venous blood specimen / Unknown Venipuncture / Unknown 11/29/2024 5:44 AM EDT 11/29/2024 6:27 AM EDT Erickson Melton MD LAB BLOOD ORDERABLES Final Result [facility] [address] [place] [address], documented in this encounter Visit Diagnoses Diagnosis Pneumonia, unspecified organism Anemia, unspecified documented in this encounter Additional Health Concerns Infection Onset Date Last Indicated Resolved Time C. difficile Rule-Out 01/13/2025 01/13/20252024 4:32 AM EDT C. difficile Rule-Out 01/13/2025 01/13/20252024 10:19 AM EDT C. difficile 01/13/2025 01/13/2025 02/06/2025 7:06 PM EDT documented as of this encounter Care Teams Yield Loss Inspector Relationship Specialty Start Date End Date Erickson Melton MD [address] [place] [id number] PCP - General Internal Medicine 09/13/24 documented as of this encounter
--- OUTSIDE RECORDS SUMMARY | 2025-03-17 15:03 | XMS_ITS | Encounter Summary ---
Author Organization [facility] Address [address] [place] [address] Care Team Providers Care Supervisor Porcelain Department Name Role Phone Erickson Melton MD Primary Care Provider +1- [phone] Encounter Details Date Type Department Care Team (Late st Contact Info) Description 09/19/2024 Lab Requisition [facility] - Main Lab 299 [facility] [place] [address] Erickson Metlon MD [address] [place] [id number] Other seizures (CMS/HCC V24, CMS/HCC V28); Hypothyroidism, [...] (ABNORMAL) Thyroxine total (09/19/2024 9:04 AM EDT) [facility] T4, Total 2.8(L) 4.5 - 10.9 mcg/dL LAB CHEMISTRY METHOD 09/19/2024 1:40 PM EDT [facility] Blood Venous blood specimen / Unknown Venipuncture / Unknown 09/19/2024 9:04 AM EDT 09/19/2024 11:18 AM EDT Erickson Melton MD LAB BLOOD ORDERABLES Final Result [facility] [address] [place] [address], * (ABNORMAL) Comprehensive metabolic panel (09/19/2024 9:04 AM EDT) [facility] Sodium 139 133 - 145 mmol/L LAB CHEMISTRY METHOD 09/19/2024 1:38 PM [facility] Potassium 4.2 3.5 - 5.5 mmol/L LAB CHEMISTRY METHOD 09/19/2024 1:38 PM [facility] Chloride 97 96 - 110 mmol/L LAB CHEMISTRY METHOD 09/19/2024 1:38 PM T [facility] CO2 38(H) 21 - 32 mmol/L LAB CHEMISTRY METHOD 09/19/2024 1:38 PM [facility] Anion Gap 4 3 - 11 LAB CHEMISTRY METHOD 09/19/2024 1:38 PM [facility] Glucose 98 70 - 100 mg/dL LAB CHEMISTRY METHOD 09/19/2024 1:38 PM [facility] BUN 27(H) 5 - 25 mg/dL LAB CHEMISTRY METHOD 09/19/2024 1:38 PM T [facility] Creatinine 0.67 0.50 - 1.10 mg/dL LAB CHEMISTRY METHOD 09/19/2024 1:38 PM T [facility] eGFR 98 >=60 mL/min/1. 73m2 LAB CHEMISTRY METHOD 09/19/2024 1:38 PM [facility] Comment:Calculation based on the Chronic Kidney Disease Epidemiology Collaboration (CKD-EPI) equation refit without adjustment for race. BUN/Creatinine Ratio 40.3 LAB CHEMISTRY METHOD 09/19/2024 1:38 PM T [facility] Calcium 8.9 8.5 - 10.5 mg/dL LAB CHEMISTRY METHOD 09/19/2024 1:38 PM [facility] AST (SGOT) 20 10 - 42 unit/L LAB CHEMISTRY METHOD 09/19/2024 1:38 PM [facility] ALT (SGPT) 32 10 - 60 unit/L LAB CHEMISTRY METHOD 09/19/2024 1:38 PM [facility] Alkaline Phosphatase 144(H) 42 - 121 unit/L LAB CHEMISTRY METHOD 09/19/2024 1:38 PM [facility] Total Protein 6.6 6.0 - 8.0 g/dL LAB CHEMISTRY METHOD 09/19/2024 1:38 PM [facility] Albumin 2.6(L) 3.2 - 5.0 g/dL LAB CHEMISTRY METHOD 09/19/2024 1:38 PM [facility] Total Bilirubin 0.2 0.0 - 1.4 mg/dL LAB CHEMISTRY METHOD 09/19/2024 1:38 PM [facility] Blood Venous blood specimen / Unknown Venipuncture / Unknown 09/19/2024 9:04 AM EDT 09/19/2024 11:18 AM EDT us Erickson Melton MD LAB BLOOD ORDERABLES Final Result [facility] [address] [place] [address], * (ABNORMAL) Complete blood count (09/19/2024 9:04 AM EDT) [facility] WBC 7.4 4.8 - 10.8 K/mcL LAB HEMETOLOGY METHOD 09/19/2024 11:51 AM EDT [facility] RBC 3.30(L) 3.80 - 4.80 M/mcL LAB HEMETOLOGY METHOD 09/19/2024 11:51 AM EDT [facility] Hemoglobin 11.0(L) 11.5 - 16.0 g/dL LAB HEMETOLOGY METHOD 09/19/2024 11:51 AM [facility] Hematocrit 35.4 35.0 - 47.0 % LAB HEMETOLOGY METHOD 09/19/2024 11:51 AM [facility] MCV 108.3(H) 79.0 - 98.0 FL LAB HEMETOLOGY METHOD 09/19/2024 11:51 AM [facility] MCH 33.6(H) 27.0 - 32.0 pcg LAB HEMETOLOGY METHOD 09/19/2024 11:51 AM [facility] MCHC 31.1(L) 32.0 - 37.0 g/dL LAB HEMETOLOGY METHOD 09/19/2024 11:51 AM [facility] RDW 14.5 11.0 - 15.0 % LAB HEMETOLOGY METHOD 09/19/2024 11:51 AM [facility] Platelets 291 130 - 400 K/mcL LAB HEMETOLOGY METHOD 09/19/2024 11:51 AM [facility] MPV 11.1(H) 7.0 - 11.0 FL LAB HEMETOLOGY METHOD 09/19/2024 11:51 AM EDT [facility] NRBC 0.0 <1.0 % LAB HEMETOLOGY METHOD 09/19/2024 11:51 AM EDT [facility] NRBC Absolute 0.00 <0.10 K/mcL LAB HEMETOLOGY METHOD 09/19/2024 11:51 AM EDT [facility] Blood Venous blood specimen / Unknown Venipuncture / Unknown 09/19/2024 9:04 AM EDT 09/19/2024 11:18 AM EDT us Erickson Melton MD LAB BLOOD ORDERABLES Final Result [facility] [address] [place] [address], documented in this encounter Visit Diagnoses Diagnosis [...] documented as of this encounter Care Teams Supervisor Porcelain Department Relationship Specialty Start Date End Date Erickson Melton MD [address] [place] [address] PCP - General Internal Medicine 09/13/24 documented as of this encounter
--- OUTSIDE RECORDS SUMMARY | 2025-03-17 15:03 | XMS_ITS | Encounter Summary ---
Author Organization [facility] Address [address] [place] [address] Care Team Providers Care Senior Care Assistant Name Role Phone Erickson Melton MD Primary Care Provider +1- [phone] Encounter Details Date Type Department Care Team (Late st Contact Info) Description 10/31/2024 Lab Requisition [facility] - Main Lab 299 [facility] [place] [address] Erickson Melton MD [address] [place] [address] Pneumonia, unspecified organism; Anemia, unspecified Social History [...] care for your loved ones. For example, exceptional children teacher assistant or elderly care for an older [...] mmol/L LAB CHEMISTRY METHOD 11/01/2024 11:26 AM [facility] Potassium 4.1 3.5 - 5.5 mmol/L LAB CHEMISTRY METHOD 11/01/2024 11:26 AM [facility] Chloride 102 96 - 110 mmol/L LAB CHEMISTRY METHOD 11/01/2024 11:26 AM [facility] CO2 34(H) 21 - 32 mmol/L LAB CHEMISTRY METHOD 11/01/2024 11:26 AM [facility] Anion Gap 5 3 - 11 LAB CHEMISTRY METHOD 11/01/2024 11:26 AM [facility] Glucose 86 70 - 100 mg/dL LAB CHEMISTRY METHOD 11/01/2024 11:26 AM [facility] BUN 23 5 - 25 mg/dL LAB CHEMISTRY METHOD 11/01/2024 11:26 AM [facility] Creatinine 0.74 0.50 - 1.10 mg/dL LAB CHEMISTRY METHOD 11/01/2024 11:26 AM [facility] eGFR 90 >=60 mL/min/1. 73m2 LAB CHEMISTRY METHOD 11/01/2024 11:26 AM [facility] Comment:Calculation based on the Chronic Kidney Disease Epidemiology Collaboration (CKD-EPI) equation refit without adjustment for race. BUN/Creatinine Ratio 31.1 LAB CHEMISTRY METHOD 11/01/2024 11:26 AM [facility] Calcium 8.6 8.5 - 10.5 mg/dL LAB CHEMISTRY METHOD 11/01/2024 11:26 AM [facility] Blood Venous blood specimen / Unknown Venipuncture / Unknown 11/01/2024 6:41 AM EDT 11/01/2024 10:40 AM EDT us Erickson Melton MD LAB BLOOD ORDERABLES Final Result [facility] [address] [place] [address], * (ABNORMAL) Complete blood count (11/01/2024 6:41 AM EDT) WBC 9.2 4.8 - 10.8 K/mcL LAB HEMETOLOGY METHOD 11/01/2024 10:57 AM EDT [facility] RBC 3.90 3.80 - 4.80 M/mcL LAB HEMETOLOGY METHOD 11/01/2024 10:57 AM EDT [facility] Hemoglobin 13.5 11.5 - 16.0 g/dL LAB HEMETOLOGY METHOD 11/01/2024 10:57 AM EDT [facility] Hematocrit 43.3 35.0 - 47.0 % LAB HEMETOLOGY METHOD 11/01/2024 10:57 AM EDT [facility] MCV 110.7(H) 79.0 - 98.0 FL LAB HEMETOLOGY METHOD 11/01/2024 10:57 AM EDT [facility] MCH 34.5(H) 27.0 - 32.0 pcg LAB HEMETOLOGY METHOD 11/01/2024 10:57 AM EDT [facility] MCHC 31.2(L) 32.0 - 37.0 g/dL LAB HEMETOLOGY METHOD 11/01/2024 10:57 AM EDT [facility] RDW 16.9(H) 11.0 - 15.0 % LAB HEMETOLOGY METHOD 11/01/2024 10:57 AM EDT [facility] Platelets 210 130 - 400 K/mcL LAB HEMETOLOGY METHOD 11/01/2024 10:57 AM EDT [facility] MPV 11.2(H) 7.0 - 11.0 FL LAB HEMETOLOGY METHOD 11/01/2024 10:57 AM EDT [facility] NRBC 0.0 <1.0 % LAB HEMETOLOGY METHOD 11/01/2024 10:57 AM EDT [facility] NRBC Absolute 0.00 <0.10 K/mcL LAB HEMETOLOGY METHOD 11/01/2024 10:57 AM EDT [facility] Blood Venous blood specimen / Unknown Venipuncture / Unknown 11/01/2024 6:41 AM EDT 11/01/2024 10:36 AM EDT Erickson Melton MD LAB BLOOD ORDERABLES Final Result [facility] [address] [place] [address], documented in this encounter Visit Diagnoses Diagnosis [...] as of this encounter Care Teams Senior Care Assistant Relationship Specialty Start Date End Date Erickson Melton MD [address] [place] [id number] PCP - General Internal Medicine 09/13/24 documented as of this encounter
--- OUTSIDE RECORDS SUMMARY | 2025-03-17 15:03 | XMS_ITS | Encounter Summary ---
Author Organization [facility] Address [address] [place] [address] Care Team Providers Care Information Assistant Name Role Phone Erickson Melton MD Primary Care Provider +1- [phone] Encounter Details Date Type Department Care Team (Late st Contact Info) Description 09/26/2024 Lab Requisition [facility] - Main Lab 299 [facility] [place] [address] Erickson Melton MD [address] [place] [address] Anemia, unspecified; Hypothyroidism, unspecified; Other seizures (CMS/HCC [...] mmol/L LAB CHEMISTRY METHOD 09/27/2024 8:30 AM [facility] Potassium 3.9 3.5 - 5.5 mmol/L LAB CHEMISTRY METHOD 09/27/2024 8:30 AM [facility] Chloride 102 96 - 110 mmol/L LAB CHEMISTRY METHOD 09/27/2024 8:30 AM [facility] CO2 37(H) 21 - 32 mmol/L LAB CHEMISTRY METHOD 09/27/2024 8:30 AM [facility] Anion Gap 3 3 - 11 LAB CHEMISTRY METHOD 09/27/2024 8:30 AM [facility] Glucose 108(H) 70 - 100 mg/dL LAB CHEMISTRY METHOD 09/27/2024 8:30 AM [facility] BUN 18 5 - 25 mg/dL LAB CHEMISTRY METHOD 09/27/2024 8:30 AM [facility] Creatinine 0.67 0.50 - 1.10 mg/dL LAB CHEMISTRY METHOD 09/27/2024 8:30 AM [facility] eGFR 98 >=60 mL/min/1. 73m2 LAB CHEMISTRY METHOD 09/27/2024 8:30 AM [facility] Comment:Calculation based on the Chronic Kidney Disease Epidemiology Collaboration (CKD-EPI) equation refit without adjustment for race. BUN/Creatinine Ratio 26.9 LAB CHEMISTRY METHOD 09/27/2024 8:30 AM [facility] Calcium 8.7 8.5 - 10.5 mg/dL LAB CHEMISTRY METHOD 09/27/2024 8:30 AM [facility] Blood Venous blood specimen / Unknown Venipuncture / Unknown 09/27/2024 7:12 AM EDT 09/27/2024 8:01 AM EDT us Erickson Melton MD LAB BLOOD ORDERABLES Final Result [facility] [address] [place] [address], * (ABNORMAL) Complete blood count (09/27/2024 7:12 AM EDT) WBC 7.2 4.8 - 10.8 K/mcL LAB HEMETOLOGY METHOD 09/27/2024 8:09 AM EDT [facility] RBC 3.20(L) 3.80 - 4.80 M/mcL LAB HEMETOLOGY METHOD 09/27/2024 8:09 AM [facility] Hemoglobin 10.9(L) 11.5 - 16.0 g/dL LAB HEMETOLOGY METHOD 09/27/2024 8:09 AM [facility] Hematocrit 35.3 35.0 - 47.0 % LAB HEMETOLOGY METHOD 09/27/2024 8:09 AM [facility] MCV 109.6(H) 79.0 - 98.0 FL LAB HEMETOLOGY METHOD 09/27/2024 8:09 AM [facility] MCH 33.9(H) 27.0 - 32.0 pcg LAB HEMETOLOGY METHOD 09/27/2024 8:09 AM [facility] MCHC 30.9(L) 32.0 - 37.0 g/dL LAB HEMETOLOGY METHOD 09/27/2024 8:09 AM [facility] RDW 16.3(H) 11.0 - 15.0 % LAB HEMETOLOGY METHOD 09/27/2024 8:09 AM [facility] Platelets 268 130 - 400 K/mcL LAB HEMETOLOGY METHOD 09/27/2024 8:09 AM T [facility] MPV 10.7 7.0 - 11.0 FL LAB HEMETOLOGY METHOD 09/27/2024 8:09 AM EDT [facility] NRBC 0.0 <1.0 % LAB HEMETOLOGY METHOD 09/27/2024 8:09 AM EDT [facility] NRBC Absolute 0.00 <0.10 K/mcL LAB HEMETOLOGY METHOD 09/27/2024 8:09 AM EDT [facility] Blood Venous blood specimen / Unknown Venipuncture / Unknown 09/27/2024 7:12 AM EDT 09/27/2024 8:01 AM EDT Erickson Melton MD LAB BLOOD ORDERABLES Final Result [facility] [address] [place] [address], documented in this encounter Visit Diagnoses Diagnosis Anemia, unspecified Hypothyroidism, unspecified Other seizures (CMS/HCC V24, CMS/HCC V28) documented in this encounter Additional Health Concerns Infection Onset Date Last Indicated Resolved Time C. difficile Comment:Tested (+) at [facility]; started on PO ABT 09/29/24 NL 09/29/2024 [...] documented as of this encounter Care Teams Information Assistant Relationship Specialty Start Date End Date Erickson Melton MD [address] [place] [phone] PCP - General Internal Medicine 09/13/24 documented as of this encounter
--- OUTSIDE RECORDS SUMMARY | 2025-03-17 15:03 | XMS_ITS | Encounter Summary ---
Author Organization [facility] Address [address] [place] [address] Care Team Providers Care Compotype Operator Name Role Phone Erickson Melton MD Primary Care Provider +1- [phone] Encounter Details Date Type Department Care Team (Late st Contact Info) Description 10/27/2024 Lab Requisition [facility] - Main Lab 299 [facility] [place] [address] Erickson Melton MD [address] [place] [address] Enterocolitis due to Clostridium difficile, not specified [...] mmol/L LAB CHEMISTRY METHOD 10/27/2024 9:33 AM [facility] Potassium 4.3 3.5 - 5.5 mmol/L LAB CHEMISTRY METHOD 10/27/2024 9:33 AM [facility] Comment:Hemolysis present Chloride 105 96 - 110 mmol/L LAB CHEMISTRY METHOD 10/27/2024 9:33 AM [facility] CO2 29 21 - 32 mmol/L LAB CHEMISTRY METHOD 10/27/2024 9:33 AM [facility] Anion Gap 6 3 - 11 LAB CHEMISTRY METHOD 10/27/2024 9:33 AM [facility] Glucose 82 70 - 100 mg/dL LAB CHEMISTRY METHOD 10/27/2024 9:33 AM [facility] BUN 33(H) 5 - 25 mg/dL LAB CHEMISTRY METHOD 10/27/2024 9:33 AM [facility] Creatinine 0.68 0.50 - 1.10 mg/dL LAB CHEMISTRY METHOD 10/27/2024 9:33 AM [facility] eGFR 97 >=60 mL/min/1. 73m2 LAB CHEMISTRY METHOD 10/27/2024 9:33 AM [facility] Comment:Calculation based on the Chronic Kidney Disease Epidemiology Collaboration (CKD-EPI) equation refit without adjustment for race. BUN/Creatinine Ratio 48.5 LAB CHEMISTRY METHOD 10/27/2024 9:33 AM [facility] Calcium 8.7 8.5 - 10.5 mg/dL LAB CHEMISTRY METHOD 10/27/2024 9:33 AM [facility] Blood Venous blood specimen / Unknown Venipuncture / Unknown 10/27/2024 6:46 AM EDT 10/27/2024 7:59 AM EDT us Erickson Melton MD LAB BLOOD ORDERABLES Final Result [facility] [address] [place] [address], * (ABNORMAL) Complete blood count (10/27/2024 6:46 AM EDT) WBC 10.5 4.8 - 10.8 K/mcL LAB HEMETOLOGY METHOD 10/27/2024 8:39 AM EDT [facility] RBC 3.80 3.80 - 4.80 M/mcL LAB HEMETOLOGY METHOD 10/27/2024 8:39 AM [facility] Hemoglobin 13.0 11.5 - 16.0 g/dL LAB HEMETOLOGY METHOD 10/27/2024 8:39 AM [facility] Hematocrit 42.2 35.0 - 47.0 % LAB HEMETOLOGY METHOD 10/27/2024 8:39 AM [facility] MCV 111.9(H) 79.0 - 98.0 FL LAB HEMETOLOGY METHOD 10/27/2024 8:39 AM [facility] MCH 34.5(H) 27.0 - 32.0 pcg LAB HEMETOLOGY METHOD 10/27/2024 8:39 AM [facility] MCHC 30.8(L) 32.0 - 37.0 g/dL LAB HEMETOLOGY METHOD 10/27/2024 8:39 AM [facility] RDW 17.3(H) 11.0 - 15.0 % LAB HEMETOLOGY METHOD 10/27/2024 8:39 AM [facility] Platelets 181 130 - 400 K/mcL LAB HEMETOLOGY METHOD 10/27/2024 8:39 AM [facility] MPV 10.6 7.0 - 11.0 FL LAB HEMETOLOGY METHOD 10/27/2024 8:39 AM EDT [facility] NRBC 0.0 <1.0 % LAB HEMETOLOGY METHOD 10/27/2024 8:39 AM EDT [facility] NRBC Absolute 0.00 <0.10 K/mcL LAB HEMETOLOGY METHOD 10/27/2024 8:39 AM EDT [facility] Blood Venous blood specimen / Unknown Venipuncture / Unknown 10/27/2024 6:46 AM EDT 10/27/2024 7:59 AM EDT Erickson Melton MD LAB BLOOD ORDERABLES Final Result [facility] [address] [place] [address], documented in this encounter Visit Diagnoses Diagnosis [...] documented as of this encounter Care Teams Compotype Operator Relationship Specialty Start Date End Date Erickson Melton MD [address] [place] [phone] PCP - General Internal Medicine 09/13/24 documented as of this encounter
--- OUTSIDE RECORDS SUMMARY | 2025-03-17 15:03 | XMS_ITS | Encounter Summary ---
Author Organization [facility] Address [address] [place] [address] Care Team Providers Care Apparel Fashion Designer Name Role Phone Erickson Melton MD Primary Care Provider +1- [phone] Encounter Details Date Type Department Care Team (Late st Contact Info) Description 11/07/2024 Lab Requisition [facility] - Main Lab 299 [facility] [place] [address] Erickson Melton MD [address] [place] [address] Anemia, unspecified; Pneumonia, unspecified organism Social History [...] for your loved ones. For example, childcare aide or elderly care for an older adult? [...] mmol/L LAB CHEMISTRY METHOD 11/08/2024 1:23 PM [facility] Potassium 4.7 3.5 - 5.5 mmol/L LAB CHEMISTRY METHOD 11/08/2024 1:23 PM [facility] Comment:Hemolysis present Chloride 104 96 - 110 mmol/L LAB CHEMISTRY METHOD 11/08/2024 1:23 PM [facility] CO2 30 21 - 32 mmol/L LAB CHEMISTRY METHOD 11/08/2024 1:23 PM [facility] Anion Gap 8 3 - 11 LAB CHEMISTRY METHOD 11/08/2024 1:23 PM [facility] Glucose 80 70 - 100 mg/dL LAB CHEMISTRY METHOD 11/08/2024 1:23 PM [facility] BUN 25 5 - 25 mg/dL LAB CHEMISTRY METHOD 11/08/2024 1:23 PM [facility] Creatinine 0.74 0.50 - 1.10 mg/dL LAB CHEMISTRY METHOD 11/08/2024 1:23 PM [facility] eGFR 90 >=60 mL/min/1. 73m2 LAB CHEMISTRY METHOD 11/08/2024 1:23 PM [facility] Comment:Calculation based on the Chronic Kidney Disease Epidemiology Collaboration (CKD-EPI) equation refit without adjustment for race. BUN/Creatinine Ratio 33.8 LAB CHEMISTRY METHOD 11/08/2024 1:23 PM [facility] Calcium 8.3(L) 8.5 - 10.5 mg/dL LAB CHEMISTRY METHOD 11/08/2024 1:23 PM [facility] Blood Venous blood specimen / Unknown Venipuncture / Unknown 11/08/2024 7:23 AM EDT 11/08/2024 10:27 AM EDT Erickson Melton MD LAB BLOOD ORDERABLES Final Result [facility] [address] [place] [address], * (ABNORMAL) Complete blood count (11/08/2024 7:23 AM EDT) WBC 4.7(L) 4.8 - 10.8 K/mcL LAB HEMETOLOGY METHOD 11/08/2024 11:11 AM EDT [facility] RBC 3.90 3.80 - 4.80 M/mcL LAB [facility]EMETOLOGY [facility] Hemoglobin 13.1 11.5 - 16.0 g/dL LAB HEMETOLOGY METHOD 11/08/2024 11:11 AM [facility] Hematocrit 41.6 35.0 - 47.0 % LAB HEMETOLOGY METHOD [facility]24 [facility] MCV 107.5(H) 79.0 - 98.0 FL LAB HEMETOLOGY METHOD 11/08/2024 11:11 AM [facility] MCH 33.9(H) 27.0 - 32.0 pcg LAB HEMETOLOGY METHOD 11/08/2024 11:11 AM [facility] MCHC 31.5(L) 32.0 - 37.0 g/dL LAB HEMETOLOGY METHOD 11/08/2024 11[facility] RDW 16.2(H) 11.0 - 15.0 % LAB HEMETOLOGY METHOD 11/08/2024 11:11 AM [facility] Platelets 225 130 - 400 K/mcL LAB HEMETOLOGY METHOD 11/08/2024 11:11 AM [facility] MPV 11.2(H) 7.0 - 11.0 FL LAB HEMETOLOGY METHOD 11/08/2024 11:11 AM EDT [facility] NRBC 0.0 <1.0 % LAB HEMETOLOGY METHOD 11/08/2024 11:11 AM EDT [facility] NRBC Absolute 0.00 <0.10 K/mcL LAB HEMETOLOGY METHOD 11/08/2024 11:11 AM EDT [facility] Blood Venous blood specimen / Unknown Venipuncture / Unknown 11/08/2024 7:23 AM EDT 11/08/2024 10:25 AM EDT us Erickson Melton MD LAB BLOOD ORDERABLES Final Result [facility] [address] [place] [address], documented in this encounter Visit Diagnoses Diagnosis [...] documented as of this encounter Care Teams Apparel Fashion Designer Relationship Specialty Start Date End Date Erickson Melton MD [address] [place] [id number] PCP - General Internal Medicine 09/13/24 documented as of this encounter
--- OUTSIDE RECORDS SUMMARY | 2025-03-17 15:03 | XMS_ITS | Encounter Summary ---
Author Organization [facility] Address [address] [place] [address] Care Team Providers Care Transplanter Name Role Phone Erickson Melton MD Primary Care Provider +1- [phone] Encounter Details Date Type Department Care Team (Late st Contact Info) Description 10/26/2024 Lab Requisition [facility] - Main Lab 299 [facility] [place] [address] Erickson Melton MD [address] [place] [address] Diarrhea, unspecified Social History Tobacco Use Types [...] Positive( A) Negative 10/26/2024 4:33 PM EDT [facility] C difficile Toxins A+B, EIA Positive( AA) Negative 10/26/2024 4:33 PM EDT [facility] Comment: CRITICAL RESULT POSITIVE FOR TOXIN PRODUCING CLOSTRIDIOIDES DIFFICILE, NO ADDITIONAL TESTING IS NECESSARY. REPEAT SAMPLES SHOULD NOT BE SUBMITTED FOR TEST OF CURE. Stool Rectum structure / Unknown 10/26/2024 10/26/2024 3:36 PM EDT Erickson Melton MD LAB MICROBIOLOGY - GENERAL ORDERABLES Final Result [facility] [address] [place] [address], documented in this encounter Visit Diagnoses Diagnosis [...] documented as of this encounter Care Teams Transplanter Relationship Specialty Start Date End Date Erickson Melton MD [address] [place] [address] PCP - General Internal Medicine 09/13/24 documented as of this encounter
--- OUTSIDE RECORDS SUMMARY | 2025-03-17 15:03 | XMS_ITS | Encounter Summary ---
Author Organization [facility] Address [address] [place] [address] Care Team Providers Care Shrimp Trawler Captain Name Role Phone Erickson Melton MD Primary Care Provider +1- [phone] Encounter Details Date Type Department Care Team (Late st Contact Info) Description 10/24/2024 Lab Requisition [facility] - Main Lab [address] [facility] [place] [address] Erickson Melton MD [address] [place] [address] Pneumonia, unspecified organism; Anemia, unspecified Social History [...] mmol/L LAB CHEMISTRY METHOD 10/25/2024 11:17 AM [facility] Potassium 4.2 3.5 - 5.5 mmol/L LAB CHEMISTRY METHOD 10/25/2024 11:17 AM [facility] Chloride 102 96 - 110 mmol/L LAB CHEMISTRY METHOD 10/25/2024 11:17 AM [facility] CO2 31 21 - 32 mmol/L LAB CHEMISTRY METHOD 10/25/2024 11:17 AM [facility] Anion Gap 9 3 - 11 LAB CHEMISTRY METHOD 10/25/2024 11:17 AM [facility] Glucose 98 70 - 100 mg/dL LAB CHEMISTRY METHOD 10/25/2024 11:17 AM [facility] BUN 26(H) 5 - 25 mg/dL LAB CHEMISTRY METHOD 10/25/2024 11:17 AM [facility] Creatinine 0.71 0.50 - 1.10 mg/dL LAB CHEMISTRY METHOD 10/25/2024 11:17 AM [facility] eGFR 95 >=60 mL/min/1. 73m2 LAB CHEMISTRY METHOD 10/25/2024 11:17 AM [facility] Comment:Calculation based on the Chronic Kidney Disease Epidemiology Collaboration (CKD-EPI) equation refit without adjustment for race. BUN/Creatinine Ratio 36.6 LAB CHEMISTRY METHOD 10/25/2024 11:17 AM [facility] Calcium 8.8 8.5 - 10.5 mg/dL LAB CHEMISTRY METHOD 10/25/2024 11:17 AM [facility] Blood Venous blood specimen / Unknown Venipuncture / Unknown 10/25/2024 8:09 AM EDT 10/25/2024 9:05 AM EDT us Erickson Melton MD LAB BLOOD ORDERABLES Final Result [facility] [address] [place] [address], * (ABNORMAL) Complete blood count (10/25/2024 8:09 AM EDT) WBC 5.1 4.8 - 10.8 K/mcL LAB HEMETOLOGY METHOD 10/25/2024 10:40 AM EDT [facility] RBC 3.70(L) 3.80 - 4.80 M/mcL LAB HEMETOLOGY METHOD 10/25/2024 10:40 AM EDT [facility] Hemoglobin 12.7 11.5 - 16.0 g/dL LAB HEMETOLOGY METHOD 10/[facility] Hematocrit 40.0 35.0 - 47.0 % LAB HEMETOLOGY METHOD 10/25/2024 10:40 AM EDT [facility] MCV 107.2(H) 79.0 - 98.0 FL LAB HEMETOLOGY METHOD 10/25/2024 10:40 AM EDT [facility] MCH 34.0(H) 27.0 - 32.0 pcg LAB HEMETOLOGY METHOD 10/25/2024 10:40 [facility] MCHC 31.8(L) 32.0 - 37.0 g/dL LAB HEMETOLOGY METHOD 10/25/2024 10:40 AM EDT [facility] RDW 16.7(H) 11.0 - 15.0 % LAB HEMETOLOGY METHOD 10/25/2024 10:40 AM EDT [facility] Platelets 189 130 - 400 K/mcL LAB HEMETOLOGY METHOD 10/25/2024 10:40 [facility] MPV 11.2(H) 7.0 - 11.0 FL LAB HEMETOLOGY METHOD 10/25/2024 10:40 AM EDT [facility] NRBC 0.0 <1.0 % LAB HEMETOLOGY METHOD 10/25/2024 10:40 AM EDT [facility] NRBC Absolute 0.00 <0.10 K/mcL LAB HEMETOLOGY METHOD 10/25/2024 10:40 AM EDT [facility] Blood Venous blood specimen / Unknown Venipuncture / Unknown 10/25/2024 8:09 AM EDT 10/25/2024 9:05 AM EDT Erickson Melton MD LAB BLOOD ORDERABLES Final Result [facility] [address] [place] [address], documented in this encounter Visit Diagnoses Diagnosis [...] documented as of this encounter Care Teams Shrimp Trawler Captain Relationship Specialty Start Date End Date Erickson Melton MD [address] [place] [id number] PCP - General Internal Medicine 09/13/24 documented as of this encounter
--- OUTSIDE RECORDS SUMMARY | 2025-03-17 15:03 | XMS_ITS | Patient Health Record ---
Author Organization [facility] Address [address] 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 Problem Hypothyroidism (24330597) Hypothyroidism, unspecified (E03.9) Active confirmed Problem Autoimmune thyroiditis (16510930) Autoimmune thyroiditis (E06.3) Active confirmed Problem Protein calorie malnutrition (674815774) Unspecified protein-calorie malnutrition (E46) Active confirmed Problem Vitamin D deficiency (21841979) Vitamin D deficiency, unspecified (E55.9) Active confirmed Problem Hyperlipidemia (87302633) Hyperlipidemia, unspecified (E78.5) Active confirmed Problem Encephalopathy (79742642) Encephalopathy, unspecified (G93.40) Active confirmed Problem 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) Active confirmed Problem Pressure ulcer of sacral region, stage 1 (L89.151) Active confirmed Problem Acquired clubfoot, 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) Active confirmed Problem Down syndrome (40468580) Down syndrome, unspecified (Q90.9) Active confirmed Problem Oropharyngeal dysphagia (72322538) Dysphagia, oropharyngeal phase (R13.12) Active confirmed Problem Walking disability (117337000) Difficulty in walking, not elsewhere classified (R26.2) Active confirmed Problem Gastrostomy present (019094779) 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 confirmed Problem Dementia (74377791) Unspecified dementia, unspecified severity, without behavioral disturbance, psychotic disturbance, mood disturbance, and anxiety (F03.90) Active confirmed Vital Signs Weight 86.2 lbs 09/30/2024 Weight reflecte d from 09/30/24 on [facility] Encounters Encounter Location Date Provider Diagnosis [address] [place] [address] 09/30/2024 Keisha Segura Pressure ulcer of sacral [...] Medicare [address] [place], [place] [id number] Whitnye Lucero Self - patient is the insured [employer] (Medicaid) [address] [place], [place] [id number] Whitney Lucero Self - patient is the [...]
--- OUTSIDE RECORDS SUMMARY | 2025-03-17 15:03 | XMS_ITS | Encounter Summary ---
Author Organization [facility] Address [address] [place] [address] Care Team Providers Care Shrimping Boat Captain Name Role Phone Erickson Melton MD Primary Care Provider +1- [phone] Encounter Details Date Type Department Care Team (Late st Contact Info) Description 10/03/2024 Lab Requisition [facility] - Main Lab [address] [facility] [place] [address] Erickson Melton MD [address] [place] [address] Anemia, unspecified; Hypothyroidism, unspecified; Other seizures (CMS/HCC [...] care for your loved ones. For example, director of early childhood or elderly care for an older adult? [...] documented as of this encounter Care Teams Shrimping Boat Captain Relationship Specialty Start Date End Date Erickson Melton MD [address] [place] [id number] PCP - General Internal Medicine 09/13/24 documented as of this encounter
--- OUTSIDE RECORDS SUMMARY | 2025-03-17 15:03 | XMS_ITS | Encounter Summary ---
Author Organization [facility] Address [address] [place] [address] Care Team Providers Care Customs Consultant Name Role Phone Erickson Melton MD Primary Care Provider +1- [phone] Encounter Details Date Type Department Care Team (Late st Contact Info) Description 10/17/2024 Lab Requisition [facility] - Main Lab [address] [facility] [place] [address] Erickson Melton MD [address] [place] [address] Pneumonia, unspecified organism; Anemia, unspecified Social History [...] your loved ones. For example, child welfare specialist or elderly care for an older [...] mmol/L LAB CHEMISTRY METHOD 10/18/2024 11:47 AM [facility] Potassium 4.0 3.5 - 5.5 mmol/L LAB CHEMISTRY METHOD 10/18/2024 11:47 AM [facility] Chloride 99 96 - 110 mmol/L LAB CHEMISTRY METHOD 10/18/2024 11:47 AM [facility] CO2 35(H) 21 - 32 mmol/L LAB CHEMISTRY METHOD 10/18/2024 11:47 AM [facility] Anion Gap 5 3 - 11 LAB CHEMISTRY METHOD 10/18/2024 11:47 AM [facility] Glucose 76 70 - 100 mg/dL LAB CHEMISTRY METHOD 10/18/2024 11:47 AM [facility] BUN 19 5 - 25 mg/dL LAB CHEMISTRY METHOD 10/18/2024 11:47 AM [facility] Creatinine 0.71 0.50 - 1.10 mg/dL LAB CHEMISTRY METHOD 10/18/2024 11:47 AM [facility] eGFR 95 >=60 mL/min/1. 73m2 LAB CHEMISTRY METHOD 10/18/2024 11:47 AM [facility] Comment:Calculation based on the Chronic Kidney Disease Epidemiology Collaboration (CKD-EPI) equation refit without adjustment for race. BUN/Creatinine Ratio 26.8 LAB CHEMISTRY METHOD 10/18/2024 11:47 AM [facility] Calcium 9.4 8.5 - 10.5 mg/dL LAB CHEMISTRY METHOD 10/18/2024 11:47 AM [facility] Blood Venous blood specimen / Unknown Venipuncture / Unknown 10/18/2024 8:38 AM EDT 10/18/2024 10:05 AM EDT us Erickson Melton MD LAB BLOOD ORDERABLES Final Result [facility] [address] [place] [address], * (ABNORMAL) Complete blood count (10/18/2024 8:38 AM EDT) WBC 2.4(L) 4.8 - 10.8 K/mcL LAB HEMETOLOGY METHOD 10/18/2024 11:22 AM EDT [facility] RBC 3.60(L) 3.80 - 4.80 M/mcL LAB HEMETOLOGY METHOD [facility] Hemoglobin 12.3 11.5 - 16.0 g/dL LAB HEMETOLOGY METHOD 10/18/2024 11:22 AM [facility] Hematocrit 39.0 35.0 - 47.0 % LAB HEMETOLOGY METHOD 10/18/2024 [facility] MCV 107.7(H) 79.0 - 98.0 FL LAB HEMETOLOGY METHOD 10/18/2024 11:22 AM [facility] MCH 34.0(H) 27.0 - 32.0 pcg LAB HEMETOLOGY METHOD 10/18/2024 11:22 AM [facility] MCHC 31.5(L) 32.0 - 37.0 g/dL LAB HEMETOLOGY METHOD 10/18/2024 11:22 AM [facility] RDW 17.2(H) 11.0 - 15.0 % LAB HEMETOLOGY METHOD 10/18/2024 11:22 AM [facility] Platelets 238 130 - 400 K/mcL LAB HEMETOLOGY METHOD 10/18/2024 11:22 AM [facility] MPV 10.8 7.0 - 11.0 FL LAB HEMETOLOGY METHOD 10/18/2024 11:22 AM EDT [facility] NRBC 0.0 <1.0 % LAB HEMETOLOGY METHOD 10/18/2024 11:22 AM EDT [facility] NRBC Absolute 0.00 <0.10 K/mcL LAB HEMETOLOGY METHOD 10/18/2024 11:22 AM EDT [facility] Blood Venous blood specimen / Unknown Venipuncture / Unknown 10/18/2024 8:38 AM EDT 10/18/2024 10:05 AM EDT Erickson Melton MD LAB BLOOD ORDERABLES Final Result [facility] [address] [place] [address], documented in this encounter Visit Diagnoses Diagnosis [...] documented as of this encounter Care Teams Customs Consultant Relationship Specialty Start Date End Date Erickson Melton MD [address] [place] [id number] PCP - General Internal Medicine 09/13/24 documented as of this encounter
--- OUTSIDE RECORDS SUMMARY | 2025-03-17 15:03 | XMS_ITS | Encounter Summary ---
Author Organization [facility] Address [address] [place] [address] Care Team Providers Care Assistant Basketball Coach Name Role Phone Erickson Melton MD Primary Care Provider +1- [phone] Encounter Details Date Type Department Care Team (Late st Contact Info) Description 11/21/2024 Lab Requisition [facility] - Main Lab [address] [facility] [place] [address] Erickson Melton MD [address] [place] [address] Pneumonia, unspecified organism; Anemia, unspecified Social History [...] [facility] [address] [place] [address], * (ABNORMAL) Complete blood count (11/22/2024 7:30 AM EDT) WBC 5.4 4.8 - 10.8 K/mcL LAB HEMETOLOGY METHOD 11/22/2024 10:41 AM EDT [facility] RBC 3.80 3.80 - 4.80 M/mcL LAB HEMETOLOGY METHOD 11/22/2024 10:41 AM EDT [facility] Hemoglobin 13.1 11.5 - 16.0 g/dL LAB HEMETOLOGY METHOD 11/22/2024 10:41 AM EDT [facility] Hematocrit 40.5 35.0 - 47.0 % LAB HEMETOLOGY METHOD 11/22/2024 10:41 AM EDT [facility] MCV 105.5(H) 79.0 - 98.0 FL LAB HEMETOLOGY METHOD 11/22/2024 10:41 AM EDT [facility] MCH 34.1(H) 27.0 - 32.0 pcg LAB HEMETOLOGY METHOD 11/22/2024 10:41 AM EDT [facility] MCHC 32.3 32.0 - 37.0 g/dL LAB HEMETOLOGY METHOD 11/22/2024 10:41 AM EDT [facility] RDW 15.9(H) 11.0 - 15.0 % LAB HEMETOLOGY METHOD 11/22/2024 10:41 AM EDT [facility] Platelets 219 130 - 400 K/mcL LAB HEMETOLOGY METHOD 11/22/2024 10:41 AM EDT [facility] MPV 10.8 7.0 - 11.0 FL LAB HEMETOLOGY METHOD 11/22/2024 10:41 AM EDT [facility] NRBC 0.0 <1.0 % LAB HEMETOLOGY METHOD 11/22/2024 10:41 AM EDT [facility] NRBC Absolute 0.00 <0.10 K/mcL LAB HEMETOLOGY METHOD 11/22/2024 10:41 AM EDT [facility] Blood Venous blood specimen / Unknown Venipuncture / Unknown 11/22/2024 7:30 AM EDT 11/22/2024 10:25 AM EDT Erickson Melton MD LAB BLOOD ORDERABLES Final Result [facility] [address] [place] [address], documented in this encounter Visit Diagnoses Diagnosis Pneumonia, unspecified organism Anemia, unspecified documented in this encounter Additional Health Concerns Infection Onset Date Last Indicated Resolved Time C. difficile Rule-Out 01/13/2025 01/13/20252024 4:32 AM EDT C. difficile Rule-Out 01/13/2025 01/13/20252024 10:19 AM EDT C. difficile 01/13/2025 01/13/2025 02/06/2025 7:06 PM EDT documented as of this encounter Care Teams Assistant Basketball Coach Relationship Specialty Start Date End Date Erickson Melton MD [address] [place] [id number] PCP - General Internal Medicine 09/13/24 documented as of this encounter
--- OUTSIDE RECORDS SUMMARY | 2025-03-17 15:03 | XMS_ITS | Encounter Summary ---
Author Organization [facility] Address [address] [place] [address] Care Team Providers Care Skirt Trimmer Name Role Phone Erickson Melton MD Primary Care Provider +1- [phone] Encounter Details Date Type Department Care Team (Late st Contact Info) Description 12/12/2024 Lab Requisition [facility] - Main Lab [address] [facility] [place] [address] Erickson Melton MD [address] [place] [address] Pneumonia, unspecified organism; Anemia, unspecified Social History [...] documented as of this encounter Care Teams Skirt Trimmer Relationship Specialty Start Date End Date Erickson Melton MD [address] [place] [address] PCP - General Internal Medicine 09/13/24 documented as of this encounter
--- OUTSIDE RECORDS SUMMARY | 2025-04-05 20:00 | XMS_ITS | Clinical Summary ---
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, LALA Unavailable Un available Payers Payer Name Policy Type Policy Number Effective Date Expira tion Date MEDICARE - [place]GS [place] - PDGM [id number] Problems Condition Name Condition Details Condition Category Status Onset Date Resolution Date Last Treatment Date Treating Clinician Comments GASTROSTOMY INFECTION Active 07-06 00:00: 00 UNSPECIFIED PROTEIN-MILLER REMI MALNUTRITION Active 07-06 00:00: 00 HYPOTHYROIDI SM, UNSPECIFIED Active 07-06 00:00: 00 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, MODERATE, WITH ANXIETY Active 07-06 00:00: 00 DEM IN OTHER DIS CLASSD ELSWHR, MOD, WITH OTHER BEH DISTURB Active 07-06 00:00: 00 DEM IN OTHER DIS CLASSD ELSWHR, MODERATE, WITH MOOD DISTURB Active 07-06 00:00: 00 CHRONIC RESPIRATORY FAILURE WITH HYPOXIA Active 07-06 00:00: 00 ANEMIA, UNSPECIFIED Active 07-06 00:00: 00 OTHER HYPOTENSION Active 07-06 00:00: 00 DYSPHASIA FOLLOWING CEREBRAL INFARCTION Active 07-06 00:00: 00 HYPERLIPIDEM IA, UNSPECIFIED Active 07-06 00:00: 00 DOWN SYNDROME, UNSPECIFIED Active 07-06 00:00: 00 CATARACT EXTRACTION STATUS, RIGHT EYE Active 07-06 00:00: 00 CATARACT EXTRACTION STATUS, LEFT EYE Active 07-06 00:00: 00 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 Med Classific ation: Gastroint estinal Therapy Agents Pain Relief (acetaminop hen) 160 mg/5 mL oral liquid 12-08 00:00: 00 Yes [id number] 640 mg EVERY 4 HOURS 640 mg EVERY 4 HOURS (route: oral) Alternate Route: G-TUBE. Med Classific ation: Analgesic , Anti-infl ammatory or Antipyret ic Aspirin Childrens 81 mg chewable tablet 12-08 00:00: 00 Yes [id number] 1 tablet DAILY 1 tablet DAILY (route: oral) Alternate Route: G-TUBE. Med Classific ation: Hematolog ical Agents Cetaphil Moisturizin g lotion 12-08 00:00: 00 Yes [id number] 1 mL NEEDED 1 mL NEEDED (route: topical) Med Classific ation: Dermatolo gical Dulcolax (magnesium hydroxide) 400 mg/5 mL oral suspension 12-08 00:00: 00 Yes [id number] 30 mL DAILY 30 mL DAILY (route: oral) Alternate Route: G-TUBE. Med Classific ation: Gastroint estinal Therapy Agents Fleet Enema 19 gram-7 gram/118 mL 12-08 00:00: 00 Yes [id number] 19 g DAILY 19 g EDWINA Y (route: rectal) Med Classific ation: Gastroint estinal Therapy Agents fluticasone propionate 50 mcg/actuati on nasal spray,suspe nsion 12-08 00:00: 00 03-03 23:59 :00 No [id number] 1 spray DAILY 1 spray DAILY (route: nasal) Med Classific ation: Respirato ry Therapy Agents gabapentin 100 mg capsule 12-08 00:00: 00 03-03 23:59 :00 No [id number] 1 capsule BEDTIME 1 capsule BEDTIME (route: oral) Alternate Route: G-TUBE. Med Classific ation: Central Nervous System Agents ipratropium 0.5 mg-albutero l 2.5 mg/2.5 mL solution for nebulizatio n 12-08 00:00: 00 Yes [id number] 3 mg NEEDED 3 mg NEEDED (route: inhalation ) Med Classific ation: Respirato ry Therapy Agents levothyroxi ne 137 mcg tablet 12-08 00:00: 00 Yes [id number] 1 tablet DAILY 1 tablet DAILY (route: oral) Alternate Route: G-TUBE. Med Classific ation: Endocrine midodrine 5 mg tablet 12-08 00:00: 00 Yes [id number] 2 tablet 3 TIMES DAILY 2 tablet 3 TIMES DAILY (route: oral) Alternate Route: G-TUBE. Med Classific ation: Cardiovas cular Therapy Agents oxcarbazepi ne 150 mg tablet 12-08 00:00: 00 03-03 23:59 :00 No [id number] 1 tablet 2 TIMES DAILY 1 tablet 2 TIMES DAILY (route: oral) Alternate Route: G-TUBE. Med Classific ation: Central Nervous System Agents Proctosol HC 2.5 % topical cream perineal applicator 12-08 00:00: 00 Yes [id number] 1 applica tor 2 TIMES DAILY 1 applicator 2 TIMES DAILY (route: topical) Med Classific ation: Anorectal Preparati ons vancomycin 50 mg/mL oral solution 12-08 00:00: 00 01-31 00:00 :00 No [id number] 2.5 mL EVERY OTHER DAY 2.5 mL EVERY OTHER DAY (route: oral) Alternate Route: G-TUBE. Med Classific ation: Anti-Infe ctive Agents zinc oxide topical ointment 02-06 00:00: 00 Yes [id number] Per instruc tions NEEDED Per instructio ns NEEDED (route: topical) Med Classific ation: Dermatolo gical Clotrimazol e AF 1 % topical cream 02-16 00:00: 00 Yes [id number] Per instruc tions 2 TIMES DAILY Per instructio ns 2 TIMES DAILY (route: topical) Med Classific ation: Dermatolo gical oxcarbazepi ne 150 mg tablet 03-03 00:00: 00 Yes [id number] 75 mg 2 TIMES DAILY 75 mg 2 TIMES DAILY (route: oral) Med Classific ation: Central Nervous System Agents trazodone 50 mg tablet 03-03 00:00: 00 Yes [id number] 1 tablet 2 TIMES DAILY 1 tablet 2 TIMES DAILY (route: oral) Med Classific ation: Central Nervous System Agents Vital Signs Vital Name Observation Time Observation Value Commen ts Temperature 2025-03-14 14:40:00.000 97.3 [degF] Temperature 2025-02-23 12:31:00.000 98 [degF] Temperature 2025-02-20 10:48:00.000 97.4 [degF] Temperature 2025-02-18 11:07:00.000 97.4 [degF] Temperature 2025-02-15 11:57:00.000 97.2 [degF] Temperature 2025-02-07 12:09:00.000 98.1 [degF] BMI (%) 2025-03-14 14:40:00.000 25 kg/m2 Height 2025-03-14 14:40:00.000 47 [in_us] Pulse 2025-03-14 14:40:00.000 70 /min Pulse 2025-02-23 12:31:00.000 70 /min Pulse 2025-02-20 10:48:00.000 68 /min Pulse 2025-02-18 11:07:00.000 62 /min Pulse 2025-02-15 11:57:00.000 67 /min Pulse 2025-02-07 12:09:00.000 72 /min O2 Saturation (%) 2025-03-14 14:40:00.000 93 % O2 Saturation (%) 2025-02-15 11:57:00.000 93 % O2 Saturation (%) 2025-02-07 12:09:00.000 92 % Respirations 2025-03-14 14:40:00.000 18 /min Respirations 2025-02-23 12:31:00.000 18 /min Respirations 2025-02-20 10:48:00.000 18 /min Respirations 2025-02-18 11:07:00.000 18 /min Respirations 2025-02-15 11:57:00.000 18 /min Weight (lbs) 2025-03-14 14:40:00.000 80 [lb_av] Systolic Blood Pressure 2025-03-14 14:40:00.000 100 mm [Hg] Systolic Blood Pressure 2025-02-23 12:31:00.000 102 mm [Hg] Systolic Blood Pressure 2025-02-20 10:48:00.000 98 mm[ Hg] Systolic Blood Pressure 2025-02-18 11:07:00.000 102 mm [Hg] Systolic Blood Pressure 2025-02-15 11:57:00.000 100 mm [Hg] Systolic Blood Pressure 2025-02-07 12:09:00.000 90 mm[ Hg] Diastolic Blood Pressure 2025-03-14 14:40:00.000 78 mm [Hg] Diastolic Blood Pressure 2025-02-23 12:31:00.000 50 mm [...] MAINTAIN SITUATIONAL AWARENESS AND WILL NOTIFY CLINICAL LACE PAPER MACHINE OPERATOR AND PHYSICIAN/PROVIDER WITH ANY CHANGE IN CONDITION. [code = SKILLED NURSE TO PERFORM ENVIRONMENTAL SAFETY RISK ASSESSMENT AND FALL RISK ASSESSMENT AND PROVIDE INSTRUCTION TO IMPLEMENT ENVIRONMENTAL SAFETY AND FALL PREVENTION STRATEGIES THROUGHOUT THE CERTIFICATION PERIOD. SKILLED NURSE WILL MAINTAIN SITUATIONAL AWARENESS AND WILL NOTIFY CLINICAL LACE PAPER MACHINE OPERATOR AND PHYSICIAN/PROVIDER WITH ANY CHANGE IN CONDITION.] [...] PRIOR LEVEL OF MOBILITY WAS INDEPENDENT IN CARE HOME. PATIENT HAS BEEN NON-AMBULATORY DID TAKE A FEW STEPS WITH HER SISTER YESTERDAY. PAST MEDICAL HISTORY INCLUDES CEREBRAL WHITE MATTER DISEASE, SYNCOPE, HYPERLIPIDEMIA, CONSTIPATION, DEMENTIA, DOWN SYNDROME, OSTEOPENIA, RIGHT ANKLE FRACTURE, CVA, MITRAL VALVE REGURGITATION, LEFT BBB IN PULMONARY EDEMA. BASELINE WAS INDEPENDENT IN CARE HOME AMBULATORY GENERAL GOAL IS TO RETURN TO [...] FUNCTIONAL MOBILITY TRAINING STRENGTH TRAINING ENDURANCE TRAINING. CARE HOME AGREES WITH PLAN OF CARE. [code = [...] PRIOR LEVEL OF MOBILITY WAS INDEPENDENT IN CARE HOME. PATIENT HAS BEEN NON-AMBULATORY DID TAKE A FEW STEPS WITH HER SISTER YESTERDAY. PAST MEDICAL HISTORY INCLUDES CEREBRAL WHITE MATTER DISEASE, SYNCOPE, HYPERLIPIDEMIA, CONSTIPATION, DEMENTIA, DOWN SYNDROME, OSTEOPENIA, RIGHT ANKLE FRACTURE, CVA, MITRAL VALVE REGURGITATION, LEFT BBB IN PULMONARY EDEMA. BASELINE WAS INDEPENDENT IN CARE HOME AMBULATORY GENERAL GOAL IS TO RETURN TO [...] FUNCTIONAL MOBILITY TRAINING STRENGTH TRAINING ENDURANCE TRAINING. CARE HOME AGREES WITH PLAN OF CARE.] Goal 2025-01-26 Patient Goal - P ER CG TO B ABLE TO WALK AGAIN Goal 2025-03-14 Patient Goal - P ER CG TO B ABLE TO WALK AGAIN Goal Patient Goal - P ER CG TO B ABLE TO WALK AGAIN Goal 2025-02-03 Patient Goal - P ER CG TO B ABLE TO WALK AGAIN Goal Provider Goal - A PLAN OF CARE WILL BE ESTABLISHED THAT MEETS PATIENT'S SHELTER NEEDS AND INCLUDES PATIENT GOAL FOR HOME [...] SAFETY IN THE HOME AND FALL PREVENTION. Progress Notes Progress Notes <paragraph>[Visit Date: 2024 by MILADIS KOENIG RN]:</paragraph><paragraph>LITA 03/14</paragraph><paragraph></paragraph><paragraph>THE PATIENT IS RECEIVING HOMECARE DUE TO: GASTROSTOMY INFECTION </paragraph><paragraph></paragraph><paragraph>RECENT HOSPITALIZATION/INPATIENT ADMISSION RELATED TO: 02/24-03/03 CONCERN FOR CELLULITIS TO G-TUBE SITE, STAY COMPLICATED BY PATIENT SELF REMOVING G-TUBE. </paragraph><paragraph></paragraph><paragraph>NEW/CHANGED MEDICATIONS: OXCARBAZEPINE CHANGED TO 75 MG BID VIA PEG TUBE </paragraph><paragraph></paragraph><paragraph>PATIENT LIVING SITUATION/CAREGIVER STATUS: PATIENT LIVES IN CARE HOME WITH / ASSISTANCE. NATHEN IS COLOR TESTER OF CARE HOME. </paragraph><paragraph></paragraph><paragraph>RECENT FALLS: DENIES ANY RECENT FALLS </paragraph><paragraph></paragraph><paragraph>SUMMARIZE SKILLED NEED: DISEASE MANAGEMENT AND EDUCATION</paragraph><paragraph></paragraph><paragraph>MD COMMUNICATION: MD OFFICE MADE AWARE OF UPDATED POC AND RECERTIFICATION </paragraph><paragraph></paragraph><paragraph>UPCOMING APPOINTMENTS: DENTAL APPT TODAY, AWAITING PCP F/U </paragraph><paragraph></paragraph><paragraph>PAYOR SOURCE: MEDICARE </paragraph><paragraph></paragraph><paragraph>ABNORMAL VITALS: VS WITHIN SET PARAMETERS </paragraph><paragraph></paragraph><paragraph>ABNORMAL PHYSICAL ASSESSMENT FINDINGS: NO ABNOMRAL PHYSICAL FINDINGS </paragraph><paragraph></paragraph><paragraph>OBSERVATION AND ASSESSMENT PROVIDED: PATIENT IS A 64 Y/O FEMALE WHO WAS ADMITTED FOR SUSPICION OF CELLULITIS TO G- TUBE SITE. PATIENT HAS BEEN HOSPITALIZED MULTIPLE TIMES IN THE PAST 3 MONTHS FOR GASTROSTOMY TUBE COMPLICATIONS. PMH: ANEMIA, DYSPHAGIA, CHRONIC RESPIRATORY FAILURE, DOWN SYNDROME, HYPOTHYROID, HLD, CATARACTS BL, ASP PNA, DEMENTIA W/ BEHAVIORAL DISTURBANCES, HYPOXIA, SEIZURES, C-DIFF. PATIENT IS ALERT, NON-VERBAL FOR MOST OF VISIT. PATIENT SAID NO WHEN ATTEMPTING TO TAKE BLOOD PRESSURE. NO OBSERVATIONAL FINDINGS NOTED FOR PAIN DURING THIS VISIT. LUNGS SOUNDS ARE CLEAR ON RA. NO SOB NOTED. INCONTINENT X2. CG HAS NO CONCERNS FOR UTI, DENIES ANY RECENT UTI SYMPTOMS. LBM 9/8, PATIENT STATES IT WAS STILL LOOSE WHICH IS A CHRONIC FINDING WITH PATIENT. SKIN IS INTACT OTHER THAN G-TUBE INCISION. PATIENT IS WC BOUND SINCE LAST HOSPITALIZATION. PATIENT TOTALLY DEPENDENT ON CAREGIVERS. PATIENT TAKES ALL MEDICATIONS THROUGH G-TUBE. DURING MOST RECENT HOSPITALIZATION, PATIENT WAS TRANSITIONED TO CONTINUOUS TUBE FEEDS, OSMOLITE 1.2. CG STATES PATIENT IS TOLERATING WELL. NO N/V, ABDOMINAL PAIN, DISCOMFORT, OR BLOATING. MED REC PERFORMED, NO ISSUES FOUND. POC IS TO CONTINUE SNV 1X/WEEK FOR DISEASE MANAGEMENT AND EDUCATION. </paragraph><paragraph></paragraph><paragraph>EDUCATION: PATIENTS CG EDUCATED ON IMPORTANCE OF KEEPING G-TUBE SECURE PATIENT HAS A HISTORY OF SELF-REMOVING. EDUCATED ON S/S OF INFECTION TO G-TUBE SITE INCLUDING REDNESS, SWELLING, OR DRAINAGE. EDUCATED ON S/S FOR NON-TOLERANCE TO CONTINUOUS TUBE FEEDS INCLUDING NAUSEA, VOMITING, BLOATING, AND ABDOMINAL PAIN. CG STATES UNDERSTANDING. </paragraph><paragraph></paragraph><paragraph>INTERVENTIONS NEEDED AT NEXT VISIT: G-TUBE ASSESSMENT AND EDUCATION, GI ASSESSMENT, NEUROLOGIC ASSESSMENT, RESPIRATORY ASSESSMENT </paragraph><paragraph></paragraph><paragraph>ANTICIPATED DISCHARGE PLAN: DC UNDER CARE OF CG AND MD ONCE GOALS ARE MET. </paragraph><paragraph></paragraph><paragraph>PT AND CAREGIVER INSTRUCTED TO CALL CINDY MARSHALL WITH ANY QUESTIONS OR CONCERNS AND/OR CHANGES IN CONDITION, STATE UNDERSTANDING</paragraph> Encounters Start Date/Time End Date/Time Encounter Type Admission Type Attending [facility] Care Department Encounter ID Discharge Date Discharge Status Discharge Condition Discharge Reason Percent Goals Met 2025-02-06 00:00:00 2025-04-06 00:00:00 Outpatient DAIRTPALAK BRITO ([facility] [id number] 30.77
== END 2025-03-17 14:30 | disposition home or self-care (01) ==
LOC: HO.HMCH 12:41
PROVIDERS: PCP Internal Medicine; Visit Provider Nurse Practitioner Family
DX: J69.0 Pneumonitis due to inhalation of food and vomit (principal); K94.22 Gastrostomy infection; L03.319 Cellulitis of trunk, unspecified; R32 Unspecified urinary incontinence

== ENCOUNTER → 2025-03-17 12:41 | Outpatient (BNVA) | payer MEDICARE, MEDICAID, SELFPAY | PROVIDERS: PCP Internal Medicine; Visit Provider Nurse Practitioner Family | DX: J69.0 Pneumonitis due to inhalation of food and vomit (principal); K94.22 Gastrostomy infection; L03.319 Cellulitis of trunk, unspecified; R32 Unspecified urinary incontinence | CPT/HCPCS: 99495 ==

== ENCOUNTER 2025-04-13 09:47 | Outpatient (AMB) | payer MEDICARE, MEDICAID, SELFPAY ==
[2025-04-13 09:57] VITALS: BP 100/64
--- NOTE | 2025-04-13 09:57 | A.OFFPC_ITS ---
Vital Signs 3 04/13/25 09:57 Height 4 ft 3 in BMI Reason not done Patient refused/unable BP 100/64 Blood Pressure Location Lt brachial Position Sitting Intake Visit Reasons: 3mth f/u Accompanied by: water supervisor Allergies Sulfa (Sulfonamide Antibiotics) Allergy (Mild, Verified 04/13/25 10:01) HIVES sulfamethoxazole (From Bactrim) Allergy (Mild, Verified 04/13/25 10:01) HIVES amoxicillin (Amoxicillin) Allergy (Unknown, Verified 04/13/25 10:01) HIVES Clindamycin HCl Allergy (Unknown, Verified 04/13/25 10:01) rash trimethoprim (From Bactrim) Allergy (Unknown, Verified 04/13/25 10:01) HIVES Medication List - Last Reconciled 04/13/25 by Alfredo Walls MD acetaminophen 640 mg feeding tube Q4H PRN [ADULT BRIEFS/DIAPERS SMALL SIZE As directed] aspirin 81 mg feeding tube DAILY clotrimazole 1% 1 appl topical BID fluticasone propionate 50 mcg/actuation 1 spray intranasal DAILY hydrocortisone 2.5% (Proctosol HC) 1 appl WA BID PRN Lactobacillus acidophilus 10 mg feeding tube TID levothyroxine (Synthroid) 137 mcg feeding tube DAILY@0600 midodrine 10 mg PO TID [NITRILE GLOVES As directed] nystatin 1 appl topical TID oxcarbazepine 150 mg feeding tube BID 30 days trazodone 50 mg feeding tube BID PRN zinc oxide 20% 1 appl See Protocol topical DAILY Tobacco use date assessed: 04/13/25 Fall risk assessment: No Falls in past year Last assessed Fall Risk: 04/13/25 Dental Screening Dental Screen Date: 04/13/25 Did you have a dental visit in the last 12 months?: Yes Did you have a dental problem in the last 6 months where you did not have access to dental care?: No Was dental information given to patient?: Patient has dentist [facility] Medical History G-tube site cellulitis Cutaneous candidiasis Medicare annual wellness visit, subsequent Preoperative cardiovascular examination New onset left bundle branch block (LBBB) Lethargy COVID-19 virus infection Mental status alteration Colon cancer screening Atlantoaxial instability Cholelithiasis Mental and behavioral problem Hypercholesterolemia Vitamin D deficiency Closed right ankle fracture Patent foramen ovale Hypothyroid Megaloblastic anemia CVA (cerebral vascular accident) Cataracts, bilateral Down syndrome Jorge L's disease Surgical History History of surgery Clubfoot Hx of tubal ligation Hx of cataract surgery History of colonoscopy Family History Father No problems noted. Mother Hx of cancer of lung Social History Household Members: Other Household Members Other:: [facility] Housing: Other Housing Other:: [facility] Do you presently have visiting nurse or other home services: No Alcohol intake: never Comment: [facility] staff at bedside Patient Tobacco Use Status: Never used Tobacco e-Cigarette/Vaping Use: Never Used Second Hand Smoke Exposure: No Advance Directives Date on File: 10/26/24 service: No Current occupational status: disabled Cognitive needs: Yes (Wheelchair) Hearing needs: No Vision needs: Yes (Glasses) Questionnaire PHQ-9 Over the last 2 weeks, how often have you been bothered by any of the following problems? 1. Little interest or pleasure in doing things: not at all 2. Feeling down, depressed, or hopeless: not at all 3. Trouble falling or staying asleep, or sleeping too much: not at all 4. Feeling tired or having little energy: not at all 5. Poor appetite or overeating: not at all 6. Feeling bad about yourself - or that you are a failure or have let yourself or your family down: not at all 7. Trouble concentrating on things, such as reading the newspaper or watching television: not at all 8. Moving or speaking so slowly that other people could have noticed. Or the opposite - being so fidgety or restless that you have been moving around a lot more than usual: not at all 9. Thoughts that you would be better off or of hurting yourself in some way: not at all Total score: 0 Source: Developed by Drs. Monico Cuellar, Peggy Morris, Parvez Guerrier and colleagues, with an educational tesha from [employer]. Thrive Questionnaire Date Thrive assessed: 03/06/25 I am a: Parent/Caregiver What is your living situation today?: I have a steady place to live Within the past 12 months, did the food you bought not last and you didn't have the money to get more?: I choose not to answer this question Within the past 12 months, did you worry whether your food would run out before you got money to buy more?: I choose not to answer this question Do you have trouble paying for medicines?: I choose not to answer this question Do you have trouble getting transportation to medical appointments?: I choose not to answer this question Do you have trouble paying your heating and electricity bill?: I choose not to answer this question Do you have trouble taking care of your child, family member or friend?: I choose not to answer this question Do you have trouble with day-to-day activities such as bathing, preparing meals, shopping, managing finances, etc.?: I choose not to answer this question Are you currently unemployed and looking for a job?: I choose not to answer this question Are you interested in more education?: I choose not to answer this question Please select the resources that you would like help with: None Currently or been in a relationship where the following occur: No concerns reported THRIVE Score: 0 AUDIT C Alcohol Use Questionnaire (AUDIT-C) 1. How often do you have a drink containing alcohol?: Never 3. How often do you have six or more drinks on one occasion?: Never Total Score: 0 NEHA-7 AMB Questionnaire NEHA-7 Date NEHA - 7 assessed: 02/17/25 Feeling nervous, anxious, or on edge: 0 = Not at all Not being able to stop or control worryin = Not at all Worrying too much about different things: 0 = Not at all Trouble relaxin = Not at all Being so restless that it is hard to sit still: 0 = Not at all Becoming easily annoyed or irritable: 0 = Not at all Feeling afraid as if something awful might happen: 0 = Not at all Total NEHA-7 score (0-4 normal; 5-9 mild; 10-14 moderate; 15-21 severe): 0 Source: Developed by Drs. Monico Cuellar, Peggy Morris, Parvez Guerrier and colleagues, with an educational tesha from [employer]. Physical exam (Primary Care) Vital Signs: Last Vital Signs BP 100/64 04/13/25 09:57 Tobacco/Smoking Status: Tobacco use Status Tobacco use date assessed 04/13/25 04/13/25 10:06 Patient Tobacco Use Status Never used Tobacco 04/13/25 10:06 e-Cigarette/Vaping Use Never Used 04/13/25 10:06 PHQ-9: PHQ-9 Score PHQ-9: Total score 0 04/13/25 10:21 Thrive Assessment: Date of Thrive Assessment Date Thrive assessed 03/06/25 04/13/25 10:06 Currently or been in a relationship where the following occur: No concerns reported Const General: alert; No acute distress Eyes Conjunctivae: conjunctivae normal Resp Auscultation: clear to auscultation bilaterally Cardio Rate: regular rate Rhythm: regular rhythm GI Inspection: Yes normal to inspection Abdomen image: 2 1. g tube with mild redness around the area Extrem General: Yes normal to inspection and No edema Coding Level of Care Code Est Pt Level 4 (63886) Complex EM visit Add On G2211 Diagnoses Seizure disorder G40.909 PEG (percutaneous endoscopic gastrostomy) status Z93.1 Hypothyroidism, unspecified type E03.9 Hypothyroidism type: unspecified Down syndrome Q90.9 Assessment & Plan Assessment & Plan (1) Seizure disorder: Code(s): G40.909 - Epilepsy, unspecified, not intractable, without status epilepticus Category: Medical Plan: Patient on trazodone, oxcarbazepine midodrine (2) PEG (percutaneous endoscopic gastrostomy) status: Code(s): Z93.1 - Gastrostomy status Category: Surgical Plan: Continue with PEG tube care (3) Hypothyroid: Comment: Myxedema March 2019 Code(s): E03.9 - Hypothyroidism, unspecified Category: Medical Qualifiers: Hypothyroidism type: unspecified Qualified Code(s): E03.9 - Hypothyroidism, unspecified Plan: Continue with thyroid medication (4) Down syndrome: Code(s): Q90.9 - Down syndrome, unspecified Category: Medical Plan: Supportive care Plan History of Present Illness The patient is a 65-year-old female presenting for a follow-up visit. The patient has a history of Down syndrome and hypothyroidism, which have been managed with thyroid medication. She also has hypercholesterolemia, urinary retention, and a history of acute hypoxemic respiratory failure due to COVID-19. The patient has experienced pneumonia and has a seizure disorder, with a recent hospitalization in March 2021 for a question of seizures or stroke. An EEG in March 2022 showed moderate generalized slowing of the background, indicating a diffuse disturbance of cerebral function associated with metabolic or hypoxemic ischemic etiology. The patient is on a PEG tube and has had issues with G-tube infections, including cellulitis and right lower lobe pneumonia. She also has a history of cholelithiasis, transspecific colitis, and Clostridioides difficile diarrhea. The patient has been experiencing fungal infections, particularly around the G- tube site and on her feet, managed with Lotrimin and zinc oxide. Her sister has been involved in her care, advocating for changes in medication and probiotic use. Health Maintenance - Vaccinations: Received flu shot Social History - Family involvement: Sister actively involved in care decisions and medication management Review of Systems - Neurological: Reports lethargy and subdued behavior, denies recent seizure activity - Gastrointestinal: Reports history of Clostridioides difficile diarrhea - Integumentary: Reports fungal infections around G-tube site and feet Physical Exam - Integumentary: Fungal infection noted around G-tube site, requiring cleaning and dressing application Results - Labs: Normal blood count with mild leukopenia, normal electrolytes, renal function, and liver function - Imaging: CT scan showing no intracranial pathology - EEG: Abnormality due to moderate generalized slowing of the background, indicating diffuse disturbance of cerebral function Plan Patient was informed and verbally consented to the use of an ambient scribe for clinic note documentation during this visit. 1. Seizure Disorder The patient has a history of seizures, with a recent hospitalization for a question of seizures or stroke. An EEG showed moderate generalized slowing, and the patient is currently on oxcarbazepine for management. The sister requested a change from Keppra due to behavioral concerns, and the patient is now on a seizure protocol. 2. Fungal Infections The patient experiences recurrent fungal infections around the G-tube site and on her feet. Management includes the use of Lotrimin and zinc oxide, with consideration for nystatin powder to keep the area dry. 3. Peg Tube Care The patient is on a PEG tube and has experienced issues with G-tube infections, including cellulitis and pneumonia. Care involves regular cleaning and monitoring for signs of infection, with a plan to consult gastroenterology for further management. 4. Hypothyroidism The patient has a history of hypothyroidism, managed with thyroid medication. 5. Hypercholesterolemia The patient has hypercholesterolemia, which is being monitored as part of her ongoing care. Discussion Notes During the visit, we discussed the management of the patient's seizure disorder, including the recent change from Keppra to oxcarbazepine due to behavioral concerns. We also reviewed the care plan for her PEG tube, emphasizing the importance of regular cleaning and monitoring for infections. The patient's sister was involved in discussions regarding probiotic use and the management of fungal infections. Patient Instructions - Continue taking thyroid medication as prescribed. - Follow the seizure protocol and monitor for any seizure activity. - Maintain PEG tube care, ensuring regular cleaning and monitoring for signs of infection. - Use Lotrimin and zinc oxide for fungal infections, and consider nystatin powder to keep the area dry. Medications: Changed 2 From Lactobacillus acidophilus 10 mg feeding tube DAILY 30 caps 12RF To Lactobacillus acidophilus 10 mg feeding tube TID 90 caps 12RF Discontinued 2 ipratropium-albuterol 0.5 mg-3 mg(2.5 mg base)/3 mL Discontinued Reason: Patient Completed Course 3 mL inhalation Q6H PRN 90 mL 0RF Dyspnea
== END 2025-04-13 10:43 | disposition home or self-care (01) ==
PROVIDERS: PCP Internal Medicine; Visit Provider Internal Medicine
DX: G40.909 Epilepsy, unspecified, not intractable, without status epilepticus (principal); Z93.1 Gastrostomy status; E03.9 Hypothyroidism, unspecified; Q90.9 Down syndrome, unspecified

== ENCOUNTER → 2025-04-13 09:47 | Outpatient (BNVA) | payer MEDICARE, MEDICAID, SELFPAY | PROVIDERS: PCP Internal Medicine; Visit Provider Internal Medicine | DX: Q90.9 Down syndrome, unspecified (principal); E03.9 Hypothyroidism, unspecified; G40.909 Epilepsy, unspecified, not intractable, without status epilepticus; E78.00 Pure hypercholesterolemia, unspecified; Z96.89 Presence of other specified functional implants; Z93.1 Gastrostomy status | CPT/HCPCS: 96127; 99212 ==

== ENCOUNTER 2025-04-20 09:57 | Outpatient (AMB) | payer MEDICARE, MEDICAID, SELFPAY ==
--- NOTE | 2025-04-20 10:01 | A.OFFVIS_ITS ---
Vital Signs 04/20/25 10:14 Height 4 ft 3 in Weight 68 lb BMI 18.4 BP 114/68 Blood Pressure Location Rt radial Position Sitting Pulse 48 L Pulse Source Monitor Intake Visit Reasons: Gastrostomy status Intake Note: Returning pt for mgmt of constipation, hx of gastroenteritis + pancreatitis. YARI 2020. CC: Pt is being evaluated today for continued weight loss (unintentional) as well as G Tube maintenance. Document Control Coordinator Required: No Accompanied by: Self / Same As Patient Allergies Sulfa (Sulfonamide Antibiotics) Allergy (Mild, Verified 04/20/25 10:12) HIVES sulfamethoxazole (From Bactrim) Allergy (Mild, Verified 04/20/25 10:12) HIVES amoxicillin (Amoxicillin) Allergy (Unknown, Verified 04/20/25 10:12) HIVES Clindamycin HCl Allergy (Unknown, Verified 04/20/25 10:12) rash trimethoprim (From Bactrim) Allergy (Unknown, Verified 04/20/25 10:12) HIVES HPI HPI Gastrostomy status: Details: 65-year-old female with a history of hypothyroid, CVA, Down syndrome, dementia, Jorge L's, with G-tube dependence secondary to dysphagia and recurrent aspira tion pneumonia status post PEG on September 01, 2024 presents in the office today for consultation. Patient is on fluid restriction and currently has no order that can state that all medications can be mixed when giving through G-tube. Patient is currently residing at the custodial. The nurse from custodial called pharmacy and per pharmacist it is okay to mix medication. Patient previously has seen Dr. Munoz and will be seen by him. Here today to receive an order for crushing and mixing medications together. Patient is nonverbal besides stating yes or no. Patient is tired and sleepy. Sleeping for most of the appointment. Patient is here with staff who is very well aware of patient's being. Both staff members and the flight attendant/inflight supervisor who was neon electrician with us deny any GI concerning symptoms. [facility] Medical History G-tube site cellulitis Cutaneous candidiasis Medicare annual wellness visit, subsequent Preoperative cardiovascular examination New onset left bundle branch block (LBBB) Lethargy COVID-19 virus infection Mental status alteration Colon cancer screening Atlantoaxial instability Cholelithiasis Mental and behavioral problem Hypercholesterolemia Vitamin D deficiency Closed right ankle fracture Patent foramen ovale Hypothyroid Megaloblastic anemia CVA (cerebral vascular accident) Cataracts, bilateral Down syndrome Jorge L's disease Surgical History History of surgery Clubfoot Hx of tubal ligation Hx of cataract surgery History of colonoscopy Family History Father No problems noted. Mother Hx of cancer of lung Social History Household Members: Other Household Members Other:: custodial Housing: Other Housing Other:: custodial Do you presently have visiting nurse or other home services: No Alcohol intake: never Comment: custodial staff at bedside Patient Tobacco Use Status: Never used Tobacco e-Cigarette/Vaping Use: Never Used Second Hand Smoke Exposure: No Advance Directives Date on File: 10/26/24 service: No Current occupational status: disabled Cognitive needs: Yes (Wheelchair) Hearing needs: No Vision needs: Yes (Glasses) Review of Systems Const All systems reviewed & are unremarkable except as noted in HPI and below Physical Exam Vital Signs: Last Vital Signs Pulse 48 L 04/20/25 10:14 BP 114/68 04/20/25 10:14 BMI result Body Mass Index 18.4 Appearance: Alert. Nonverbal sometimes but then occasionally says yes or no. No acute distress. Eyes: Pupils equal, round and reactive to light. ENT: Pharynx normal. Neck: Normal inspection. Neck supple. CVS: Normal heart rate and rhythm. Pulses normal. Respiratory: No respiratory distress. Breath sounds normal. Abdomen: Soft and nontender. G tube in place no signs of infection Skin: Skin warm and dry. Normal skin color. Normal skin turgor. Extremities: No lower extremity edema. Assessment & Plan Assessment & Plan (1) PEG (percutaneous endoscopic gastrostomy) status: Code(s): Z93.1 - Gastrostomy status Category: Surgical Plan Okay for patient to crush medication as reviewed by patient's pharmacist. Patient will follow-up with Dr. Munoz at his next available appointment. Staff will call our office if patient will experience any GI concerning symptoms. Staff verbalizes understanding of instructions and agreeable to plan of care. They were given the opportunity to ask questions and all questions answered. Thank you for allowing me to participate in her care Coding Level of Care Code New Pt Level 3 (99951) Diagnoses PEG (percutaneous endoscopic gastrostomy) status Z93.1 Time Spent (min) 40 Comment 30 minutes spent with patient and additional 10 minutes spent reviewing her records
[2025-04-20 10:14] VITALS: BP 114/68; PULSE 48; BMI 18.4
--- OUTSIDE RECORDS SUMMARY | 2025-04-20 11:47 | XMS_ITS | Patient Health Record ---
Author Organization [facility] Address [address] [place] [address] Care Team Providers Care Strategy Analyst Name Role Phone Geronimo KEEN, Erickson Primary Care Provider Keisha Faye Unavailable [phone] Allergies Allergen (clinical drug ingredient) Drug/Non Drug [...] W/U Status Risk Notes Problem Megaloblastic anemia (34986307) Other megaloblastic anemias, 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 Problem Hypothyroidism (82197859) Hypothyroidism, unspecified (E03.9) Active confirmed Problem Autoimmune thyroiditis (80536109) Autoimmune thyroiditis (E06.3) Active confirmed Problem Protein calorie malnutrition (817505913) Unspecified protein-calorie malnutrition (E46) Active confirmed Problem Vitamin D deficiency (10032802) Vitamin D deficiency, unspecified (E55.9) Active confirmed Problem Hyperlipidemia (69649235) Hyperlipidemia, unspecified (E78.5) Active confirmed Problem Encephalopathy (75247415) Encephalopathy, unspecified (G93.40) Active confirmed Problem Sequelae of cerebral infarction (758134031) Unspecified 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) Active confirmed Problem Pressure ulcer of sacral region, stage 1 (L89.151) Active confirmed Problem Acquired clubfoot, 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) Active confirmed Problem Down syndrome (14495214) Down syndrome, unspecified (Q90.9) Active confirmed Problem Oropharyngeal dysphagia (15219285) Dysphagia, oropharyngeal phase (R13.12) Active confirmed Problem Walking disability (651351711) Difficulty in walking, not elsewhere classified (R26.2) Active confirmed Problem Gastrostomy present (465653670) 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 confirmed Problem Dementia (85564873) Unspecified dementia, unspecified severity, without behavioral disturbance, psychotic disturbance, mood disturbance, and anxiety (F03.90) Active confirmed Vital Signs Weight 86.2 lbs 09/30/2024 Weight reflecte d from 09/30/24 on [facility] Encounters Encounter Location Date Provider Diagnosis [address] [place] [address] 09/30/2024 Keisha Segura Pressure ulcer of sacral [...] Medicare [address] [place], [place] [id number] Whitney Lucero Self - patient is the insured [facility] (Medicaid) [address] [place], [place] [id number] Whitney Lucero Self - patient is the [...]
--- OUTSIDE RECORDS SUMMARY | 2025-04-20 11:47 | XMS_ITS | Data Portability ---
Author Organization [facility], [id number] Address [address] [place] [address] Assessment No assessment recorded. Plan of Treatment Reminders Order Date Submit Date Provider Last Modified By Organization Details Last Modified Time Details Appointments None recorded. Lab None recorded. Referral emergency medicine referral 2022 023 [email or web address] [facility] Emergency Room, [address] [place] [address], [id number], 3 08:00:22 Procedures None recorded. Surgeries None recorded. Imaging None recorded. Medication Orders None recorded. Patient TargetsNo targets recorded. Patient Instructions Encounter Date Encounter Id Patient Instructions Last Modified By Organization Details Last Modified Time 10/21/2022 [id number] You have been advised to go now to the Emergency Department for further evaluation. [facility] ER has been advised of your impending arrival. [email or web address] Not available 10/21/2022 17:01:48 Reason for Referral Emergency Medicine Referral for Petechiae of skin New petechial rash bilateral lower extremities (since last night) Referring Physician: Sveta Martin, Urgent Care, Encounter Date: 10/21/2022 Problems Name Problem SNOMED Code Status Onset Date Resolution Date Notes Provider Name and Address Organization Details Recorded Time Feeling agitated 64217824 Active 2022 IRIS PENNY R null, [place] - [facility] 3 15:15:15 Mood disorder 34292190 Active 2022 IRIS PENNY R null, PA - [facility] 3 15:15:25 Aggressive behavior 91566932 Active 2022 IRIS PENNY R null, PA - [facility] 3 15:15:36 Constipation 08749795 Active 2022 IRIS COUVERTIE R null, PA - [facility] 3 15:15:52 Hypothyroidism 97714433 Active 2022 IRIS COUVERTIE R null, PA - [facility] 3 15:16:05 Allergic rhinitis 17717617 Active 2022 IRIS COUVERTIE R null, PA - [facility] 3 15:16:38 Tinea pedis 8378931 Active 2022 IRIS COUVERTIE R null, PA - [facility] 3 15:16:53 Sleep disorder 95302959 Active 2022 IRIS COUVERTIE R null, PA - [facility] 3 15:18:09 Problem Notes None recorded. Medical Equipment None Reported. Allergies Allergen ID Allergen Name Allergen Category Reaction Reaction Severity Criticality Documentation Date Start Date Code Code System Note Provider Name and Address Organization Details Recorded Time 869429 amoxicill in medicatio n Not available Not available Not available 10/21/2022 723 RxNorm IRIS COUVERTIE R null, PA - [facility] 3 15:04:10 162091 Bactrim medicatio n Not available Not available Not available 10/21/2022 32156 9 RxNorm IRIS COUVERTIE R null, PA - [facility] 3 15:04:17 033206 Substance with sulfonami de structure and antibacte rial mechanism of action (substanc e) medicatio n Not available Not available Not available 10/21/2022 50276 8003 SNOMED IRIS COUVERTIE R null, PA - [facility] 3 15:04:22 277697 clindamyc in Not available Not available Not [...] Body mass index (BMI) Body weight Systolic And Diastolic Provider Name and Address Organization Details Last Updated DateTime 3 98.2 [degF] 18 /min 58 /min 94 % 94 % 124.46 cm 24.7 kg/m2 97594.8 6 g 96/69 mm[Hg] [facility] 3 15:11:15 Social [...] Diagnosis SNOMED-CT Code Diagnosis ICD10 Code Diagnosis IMO Codes Diagnosis Note [id number] [place]veta [place] [address] [address] 10/21/2022 09:24:57 10/21/2022 17:07:10 Petechiae of skin 538749037 R23.3 Health Concerns Section Related Observation LastModified by Organization Detai ls LastModified Time None Recorded Concern Status LastModified by Organization Details LastModified Time None Recorded Advance Directives Directive None Recorded Payers Insurance Date Sequence Insurance Name Policy Number Policy Lu Covered Member ID Lu Member ID Guarantor Name 10/21/2022 1 [place] [employer] Whitney Lucero [id number] Whitney Lucero 10/21/2022 2 [place] [facility] Whitney Lucero [id number] Whitney Lucero Notes Date Note Type Note Provider Name and Address Organization Details Recorded Time 10/21/2022 text/html UC Rash/Skin LesionReported by PatientHPIFor quality, patient reportsspreading. For source of patient information, patient reportsinformation obtained from otherandpatient arrived at urgent care ambulatory. For location, patient reportslegs. For severity, patient reportsmoderate. For context, patient reportsno new detergent or skin product,no recent change in medication,no recent travel,no recent illness, andnot affiliated with chemicals/pesticides. For associated symptoms, patient reportsno feverandno fatigue. For treatment history, patient reportsno history of treatment. For duration, (began last night.).62 year old female with hx of Down's syndrome brought by detention staff member for evaluation of a red rash to her lower legs noted first last night. The patient is a poor historian and history obtained by detention staff member. No hx of fever, runny nose, cough, vomiting, diarrhea. No new medications, soaps or lotions. The rash does not appear to be itchy but seems to be spreading. Sveta Martin MD [address] [place] [address] [place], [address], PA - [facility] 10/21/2022 17:07:58 OBGyn Episode No OBEpisode recorded.
--- OUTSIDE RECORDS SUMMARY | 2025-04-20 11:47 | XMS_ITS | Encounter Summary ---
Author Organization [facility] Address [address] [place] [address] Care Team Providers Care Automation Tester Name Role Phone Erickson Melton MD Primary Care Provider +1- [phone] Encounter Details Date Type Department Care Team (Late st Contact Info) Description 09/19/[address] [facility] - Main Lab [address] [facility] [place] [address] Erickson Melton MD [address] [place] [address] Anemia, unspecified; Hypothyroidism, unspecified; Other seizures (CMS/HCC [...] Final Result [facility] [address] [place] [address], * (ABNORMAL) Complete blood count (09/20/2024 7:49 AM EDT) WBC 6.1 4.8 - 10.8 K/mcL LAB HEMETOLOGY METHOD 09/20/2024 10:34 AM EDT [facility] RBC 3.30(L) 3.80 - 4.80 M/mcL LAB HEMETOLOGY METHOD 09/20/2024 10:34 AM EDT [facility] Hemoglobin 11.1(L) 11.5 - 16.0 g/dL LAB HEMETOLOGY METHOD 09/20/2024 10:34 AM EDT [facility] Hematocrit 36.2 35.0 - 47.0 % LAB HEMETOLOGY METHOD 09/20/2024 10:34 AM EDT [facility] MCV 109.7(H) 79.0 - 98.0 FL LAB [facility] MCH 33.6(H) 27.0 - 32.0 pcg LAB HEMETOLOGY METHOD 09/20/2024 10:34 AM EDT [facility] MCHC 30.7(L) 32.0 - 37.0 g/dL LAB HEMETOLOGY METHOD 09/20/2024 10:34 AM EDT [facility] RDW 14.6 11.0 - 15.0 % LAB H[facility]OLOGY [facility] Platelets 269 130 - 400 K/mcL LAB HEMETOLOGY METHOD 09/20/2024 10:34 AM EDT [facility] MPV 11.5(H) 7.0 - 11.0 FL LAB HEMETOLOGY METHOD 09/20/2024 10:34 AM EDT [facility] NRBC 0.0 <1.0 % LAB [facility] 09/20/2024 10:34 AM EDT [facility] NRBC Absolute 0.00 <0.10 K/mcL LAB HEMETOLOGY METHOD 09/20/2024 10:34 AM EDT [facility] Blood Venous blood specimen / Unknown Venipuncture / Unknown 09/20/2024 7:49 AM EDT 09/20/2024 10:04 AM EDT Erickson Melton MD LAB BLOOD ORDERABLES Final Result [facility] [address] [place] [address], documented in this encounter Visit Diagnoses Diagnosis [...] documented as of this encounter Care Teams Automation Tester Relationship Specialty Start Date End Date Erickson Melton MD [address] [place] [address] PCP - General Internal Medicine 09/13/24 documented as of this encounter
--- OUTSIDE RECORDS SUMMARY | 2025-04-20 11:47 | XMS_ITS | Encounter Summary ---
Author Organization [facility] Address [address] [place] [address] Care Team Providers Care Utilities Equipment Repairer Name Role Phone Erickson Melton MD Primary Care Provider +1- [phone] Encounter Details Date Type Department Care Team (Late st Contact Info) Description 12/12/2024 Lab Requisition [facility] - Main Lab 299 [facility] [place] [address] Erickson Melton MD [address] [place] [address] Pneumonia, unspecified organism; Anemia, unspecified Social History [...] for your loved ones. For example, child nutrition director or elderly care for an older [...] Date Recorded What is your living situation? Unrecognized valu e 10/06/2024 Interpersonal Safety Answer Date Record ed Physical Abuse Unrecognized value 10/10/2024 Verbal Abuse Unrecognized value 10/10/2024 Comments No Sex and Gender Information [...] documented as of this encounter Care Teams Utilities Equipment Repairer Relationship Specialty Start Date End Date Erickson Melton MD [address] [place] [address] PCP - General Internal Medicine 09/13/24 documented as of this encounter
--- OUTSIDE RECORDS SUMMARY | 2025-04-20 11:47 | XMS_ITS | Encounter Summary ---
Author Organization [facility] Address [address] [place] [address] Care Team Providers Care Scheduler Name Role Phone Erickson Melton MD Primary Care Provider +1- [phone] Encounter Details Date Type Department Care Team (Late st Contact Info) Description 12/05/2024 Lab Requisition [facility] - Main Lab 299 [facility] [place] [address] Erickson Melton MD [address] [place] [address] Pneumonia, unspecified organism; Anemia, unspecified Social History [...] for your loved ones. For example, children's ministries director or elderly care for an older [...] mmol/L LAB CHEMISTRY METHOD 12/06/2024 11:47 AM [facility] Potassium 4.1 3.5 - 5.5 mmol/L LAB CHEMISTRY METHOD 12/06/2024 11:47 AM [facility] Comment:Hemolysis present Chloride 106 96 - 110 mmol/L LAB CHEMISTRY METHOD 12/06/2024 11:47 AM [facility] CO2 26 21 - 32 mmol/L LAB CHEMISTRY METHOD 12/06/2024 11:47 AM [facility] Anion Gap 10 3 - 11 LAB CHEMISTRY METHOD 12/06/2024 11:47 AM [facility] Glucose 73 70 - 100 mg/dL LAB CHEMISTRY METHOD 12/06/2024 11:47 AM [facility] BUN 24 5 - 25 mg/dL LAB CHEMISTRY METHOD 12/06/2024 11:47 AM [facility] Creatinine 0.65 0.50 - 1.10 mg/dL LAB CHEMISTRY METHOD 12/06/2024 11:47 AM [facility] eGFR 98 >=60 mL/min/1. 73m2 LAB CHEMISTRY METHOD 12/06/2024 11:47 AM [facility] Comment:Calculation based on the Chronic Kidney Disease Epidemiology Collaboration (CKD-EPI) equation refit without adjustment for race. BUN/Creatinine Ratio 36.9 LAB CHEMISTRY METHOD 12/06/2024 11:47 AM [facility] Calcium 8.4(L) 8.5 - 10.5 mg/dL LAB CHEMISTRY METHOD 12/06/2024 11:47 AM [facility] Blood Venous blood specimen / Unknown Venipuncture / Unknown 12/06/2024 7:48 AM EDT 12/06/2024 9:05 AM EDT Erickson Melton MD LAB BLOOD ORDERABLES Final Result [facility] [address] [place] [address], * (ABNORMAL) Complete blood count (12/06/2024 7:48 AM EDT) WBC 3.8(L) 4.8 - 10.8 K/mcL LAB HEMETOLOGY METHOD 12/06/2024 11:[address] [facility] RBC 3.80 3.80 - 4.80 M/mcL LAB HEMETOLOGY METHOD 12/06/2024 11:[address] [facility] Hemoglobin 12.7 11.5 - 16.0 g/dL LAB HEMETOLOGY METHOD 12/06/2024 11:[address] [facility] Hematocrit 40.7 35.0 - 47.0 % LAB HEMETOLOGY METHOD 12/06/2024 11:[address] [facility] MCV 108.5(H) 79.0 - 98.0 FL LAB HEMETOLOGY METHOD 12/06/2024 11:40 AM [facility] MCH 33.9(H) 27.0 - 32.0 pcg LAB HEMETOLOGY METHOD 12/06/2024 11:[address] [facility] MCHC 31.2(L) 32.0 - 37.0 g/dL LAB HEMETOLOGY METHOD 12/06/2024 11:[address] [facility] RDW 15.0 11.0 - 15.0 % LAB HEMETOLOGY METHOD 12/06/2024 11:40 AM [facility] Platelets 160 130 - 400 K/mcL LAB HEMETOLOGY METHOD 12/06/2024 11:40 AM [facility] MPV 11.2(H) 7.0 - 11.0 FL LAB HEMETOLOGY METHOD 12/06/2024 11:[address] [facility] NRBC 0.0 <1.0 % LAB HEMETOLOGY METHOD 12/06/2024 11:[address] [facility] NRBC Absolute 0.00 <0.10 K/mcL LAB HEMETOLOGY METHOD 12/06/2024 11:[address] [facility] Blood Venous blood specimen / Unknown Venipuncture / Unknown 12/06/2024 7:48 AM EDT 12/06/2024 9:05 AM EDT Erickson Melton MD LAB BLOOD ORDERABLES Final Result [facility] [address] [place] [address], documented in this encounter Visit Diagnoses Diagnosis Pneumonia, unspecified organism Anemia, unspecified documented in this encounter Additional Health Concerns Infection Onset Date Last Indicated Resolved Time C. difficile Rule-Out 01/13/2025 01/13/20252024 4:32 AM EDT C. difficile Rule-Out 01/13/2025 01/13/20252024 10:19 AM EDT C. difficile 01/13/2025 01/13/2025 02/06/2025 7:06 PM EDT documented as of this encounter Care Teams Scheduler Relationship Specialty Start Date End Date Erickson Melton MD [address] [place] [address] PCP - General Internal Medicine 09/13/24 documented as of this encounter
--- OUTSIDE RECORDS SUMMARY | 2025-04-20 11:47 | XMS_ITS | Encounter Summary ---
Author Organization [facility] Address [address] [place] [address] Care Team Providers Care Dry Clipper Tender Name Role Phone Erickson Melton MD Primary Care Provider +1- [phone] Encounter Details Date Type Department Care Team (Late st Contact Info) Description 11/14/2024 Lab Requisition [facility] - Main Lab 299 [facility] [place] [address] Erickson Melton MD [address] [place] [address] Pneumonia, unspecified organism; Anemia, unspecified Social History [...] your loved ones. For example, child care centre director or elderly care for an older [...] mmol/L LAB CHEMISTRY METHOD 11/15/2024 11:23 AM [facility] Potassium 4.3 3.5 - 5.5 mmol/L LAB CHEMISTRY METHOD 11/15/2024 11:23 AM [facility] Chloride 103 96 - 110 mmol/L LAB CHEMISTRY METHOD 11/15/2024 11:23 AM [facility] CO2 30 21 - 32 mmol/L LAB CHEMISTRY METHOD 11/15/2024 11:23 AM [facility] Anion Gap 5 3 - 11 LAB CHEMISTRY METHOD 11/15/2024 11:23 AM [facility] Glucose 68(L) 70 - 100 mg/dL LAB CHEMISTRY METHOD 11/15/2024 11:23 AM [facility] BUN 26(H) 5 - 25 mg/dL LAB CHEMISTRY METHOD 11/15/2024 11:23 AM [facility] Creatinine 0.66 0.50 - 1.10 mg/dL LAB CHEMISTRY METHOD 11/15/2024 11:23 AM [facility] eGFR 98 >=60 mL/min/1. 73m2 LAB CHEMISTRY METHOD 11/15/2024 11:23 AM [facility] Comment:Calculation based on the Chronic Kidney Disease Epidemiology Collaboration (CKD-EPI) equation refit without adjustment for race. BUN/Creatinine Ratio 39.4 LAB CHEMISTRY METHOD 11/15/2024 11:23 AM [facility] Calcium 8.8 8.5 - 10.5 mg/dL LAB CHEMISTRY METHOD 11/15/2024 11:23 AM [facility] Blood Venous blood specimen / Unknown Venipuncture / Unknown 11/15/2024 8:04 AM EDT 11/15/2024 10:29 AM EDT Erickson Melton MD LAB BLOOD ORDERABLES Final Result [facility] [address] [place] [address], * (ABNORMAL) Complete blood count (11/15/2024 8:04 AM EDT) WBC 5.4 4.8 - 10.8 K/mcL LAB HEMETOLOGY METHOD 11/15/2024 11:00 AM EDT [facility] RBC 3.80 3.80 - 4.80 M/mcL LAB HEMETOLOGY METHOD [facility] Hemoglobin 13.0 11.5 - 16.0 g/dL LAB HEMETOLOGY METHOD 11/15/2024 11:00 AM [facility] Hematocrit 40.9 35.0 - 47.0 % LAB HEMETOLOGY METHOD 11/15/2024 11:00 AM [facility] MCV 107.3(H) 79.0 - 98.0 FL LAB HEMETOLOGY METHOD 11/15/2024 11:00 AM [facility] MCH 34.1(H) 27.0 - 32.0 pcg LAB HEMETOLOGY METHOD 11/15/2024 11:00 AM [facility] MCHC 31.8(L) 32.0 - 37.0 g/dL LAB HEMETOLOGY METHOD 11/15/2024 11:00 AM [facility] RDW 16.0(H) 11.0 - 15.0 % LAB HEMETOLOGY METHOD 11/15/2024 11:00 AM [facility] Platelets 225 130 - 400 K/mcL LAB HEMETOLOGY METHOD 11/15/2024 11:00 AM [facility] MPV 11.1(H) 7.0 - 11.0 FL LAB HEMETOLOGY METHOD 11/15/2024 11:00 AM EDT [facility] NRBC 0.0 <1.0 % LAB HEMETOLOGY METHOD 11/15/2024 11:00 AM EDT [facility] NRBC Absolute 0.00 <0.10 K/mcL LAB HEMETOLOGY METHOD 11/15/2024 11:00 AM EDT [facility] Blood Venous blood specimen / Unknown Venipuncture / Unknown 11/15/2024 8:04 AM EDT 11/15/2024 10:29 AM EDT Erickson Melton MD LAB BLOOD ORDERABLES Final Result [facility] [address] [place] [address], documented in this encounter Visit Diagnoses Diagnosis [...] documented as of this encounter Care Teams Dry Clipper Tender Relationship Specialty Start Date End Date Erickson Melton MD [address] [place] [address] PCP - General Internal Medicine 09/13/24 documented as of this encounter
--- OUTSIDE RECORDS SUMMARY | 2025-04-20 11:47 | XMS_ITS | Encounter Summary ---
Author Organization [facility] Address [address] [place] [address] Care Team Providers Care Senior Data Modeler Name Role Phone Erickson Melton MD Primary Care Provider +1- [phone] Encounter Details Date Type Department Care Team (Late st Contact Info) Description 11/21/2024 Lab Requisition [facility] - Main Lab 299 [facility] [place] [address] Erickson Melton MD [address] [place] [address] Pneumonia, unspecified organism; Anemia, unspecified Social History [...] care for your loved ones. For example, special needs child caregiver or elderly care for an older adult? [...] mmol/L LAB CHEMISTRY METHOD 11/22/2024 11:50 AM [facility] Potassium 4.0 3.5 - 5.5 mmol/L LAB CHEMISTRY METHOD 11/22/2024 11:50 AM [facility] Chloride 102 96 - 110 mmol/L LAB CHEMISTRY METHOD 11/22/2024 11:50 AM [facility] CO2 26 21 - 32 mmol/L LAB CHEMISTRY METHOD 11/22/2024 11:50 AM [facility] Anion Gap 10 3 - 11 LAB CHEMISTRY METHOD 11/22/2024 11:50 AM [facility] Glucose 88 70 - 100 mg/dL LAB CHEMISTRY METHOD 11/22/2024 11:50 AM [facility] BUN 27(H) 5 - 25 mg/dL LAB CHEMISTRY METHOD 11/22/2024 11:50 AM [facility] Creatinine 0.64 0.50 - 1.10 mg/dL LAB CHEMISTRY METHOD 11/22/2024 11:50 AM [facility] eGFR 99 >=60 mL/min/1. 73m2 LAB CHEMISTRY METHOD 11/22/2024 11:50 AM [facility] Comment:Calculation based on the Chronic Kidney Disease Epidemiology Collaboration (CKD-EPI) equation refit without adjustment for race. BUN/Creatinine Ratio 42.2 LAB CHEMISTRY METHOD 11/22/2024 11:50 AM [facility] Calcium 8.6 8.5 - 10.5 mg/dL LAB CHEMISTRY METHOD 11/22/2024 11:50 AM [facility] Blood Venous blood specimen / Unknown Venipuncture / Unknown 11/22/2024 7:30 AM EDT 11/22/2024 10:25 AM EDT us Erickson Melton MD LAB BLOOD ORDERABLES Final Result [facility] [address] [place] [address], * (ABNORMAL) Complete blood count (11/22/2024 7:30 AM EDT) WBC 5.4 4.8 - 10.8 K/mcL LAB HEMETOLOGY METHOD 11/22/2024 10:[address] [facility] RBC 3.80 3.80 - 4.80 M/mcL LAB HEMETOLOGY METHOD 11/22/2024 10:[address] [facility] Hemoglobin 13.1 11.5 - 16.0 g/dL LAB HEMETOLOGY METHOD 11/22/2024 10:[address] [facility] Hematocrit 40.5 35.0 - 47.0 % LAB HEMETOLOGY METHOD 11/22/2024 10:[address] [facility] MCV 105.5(H) 79.0 - 98.0 FL LAB HEMETOLOGY METHOD 11/22/2024 10:[address] [facility] MCH 34.1(H) 27.0 - 32.0 pcg LAB HEMETOLOGY METHOD 11/22/2024 10:[address] [facility] MCHC 32.3 32.0 - 37.0 g/dL LAB HEMETOLOGY METHOD 11/22/2024 10:[address] [facility] RDW 15.9(H) 11.0 - 15.0 % LAB HEMETOLOGY METHOD 11/22/2024 10:[address] [facility] Platelets 219 130 - 400 K/mcL LAB HEMETOLOGY METHOD 11/22/2024 10:[address] [facility] MPV 10.8 7.0 - 11.0 FL LAB HEMETOLOGY METHOD 11/22/2024 10:[address] [facility] NRBC 0.0 <1.0 % LAB HEMETOLOGY METHOD 11/22/2024 10:[address] [facility] NRBC Absolute 0.00 <0.10 K/mcL LAB HEMETOLOGY METHOD 11/22/2024 10:[address] [facility] Blood Venous blood specimen / Unknown Venipuncture / Unknown 11/22/2024 7:30 AM EDT 11/22/2024 10:25 AM EDT Erickson Melton MD LAB BLOOD ORDERABLES Final Result [facility] [address] [place] [address], documented in this encounter Visit Diagnoses Diagnosis Pneumonia, unspecified organism Anemia, unspecified documented in this encounter Additional Health Concerns Infection Onset Date Last Indicated Resolved Time C. difficile Rule-Out 01/13/2025 01/13/20252024 4:32 AM EDT C. difficile Rule-Out 01/13/2025 01/13/20252024 10:19 AM EDT C. difficile 01/13/2025 01/13/2025 02/06/2025 7:06 PM EDT documented as of this encounter Care Teams Senior Data Modeler Relationship Specialty Start Date End Date Erickson Melton MD [address] [place] [address] PCP - General Internal Medicine 09/13/24 documented as of this encounter
--- OUTSIDE RECORDS SUMMARY | 2025-04-20 11:47 | XMS_ITS | Encounter Summary ---
Author Organization [facility] Address [address] [place] [address] Care Team Providers Care Incubator Machine Operator Name Role Phone Erickson Melton MD Primary Care Provider +1- [phone] Encounter Details Date Type Department Care Team (Late st Contact Info) Description 10/26/2024 Lab Requisition [facility] - Main Lab [address] [facility] [place] [address] Erickson Melton MD [address] [place] [address] Diarrhea, unspecified Social History Tobacco Use Types [...] your loved ones. For example, child care cook or elderly care for an older adult? [...] Positive( A) Negative 10/26/2024 4:33 PM EDT [facility] C difficile Toxins A+B, EIA Positive( AA) Negative 10/26/2024 4:33 PM EDT [facility] Comment: CRITICAL RESULT POSITIVE FOR TOXIN PRODUCING CLOSTRIDIOIDES DIFFICILE, NO ADDITIONAL TESTING IS NECESSARY. REPEAT SAMPLES SHOULD NOT BE SUBMITTED FOR TEST OF CURE. Stool Rectum structure / Unknown 10/26/2024 10/26/2024 3:36 PM EDT us Erickson Melton MD LAB MICROBIOLOGY - GENERAL ORDERABLES Final Result [facility] [address] [place] [address], documented in this encounter Visit Diagnoses Diagnosis [...] documented as of this encounter Care Teams Incubator Machine Operator Relationship Specialty Start Date End Date Erickson Melton MD [address] [place] [address] PCP - General Internal Medicine 09/13/24 documented as of this encounter
--- OUTSIDE RECORDS SUMMARY | 2025-04-20 11:47 | XMS_ITS | Encounter Summary ---
Author Organization [facility] Address [address] [place] [address] Care Team Providers Care Kitchen Food Assembler Name Role Phone Erickson Melton MD Primary Care Provider +1- [phone] Encounter Details Date Type Department Care Team (Late st Contact Info) Description 11/07/2024 Lab Requisition [facility] - Main Lab [address] [facility] [place] [address] Erickson Melton MD [address] [place] [address] Anemia, unspecified; Pneumonia, unspecified organism Social History [...] your loved ones. For example, child care provider or elderly care for [...] mmol/L LAB CHEMISTRY METHOD 11/08/2024 1:23 PM [facility] Potassium 4.7 3.5 - 5.5 mmol/L LAB CHEMISTRY METHOD 11/08/2024 1:23 PM [facility] Comment:Hemolysis present Chloride 104 96 - 110 mmol/L LAB CHEMISTRY METHOD 11/08/2024 1:23 PM [facility] CO2 30 21 - 32 mmol/L LAB CHEMISTRY METHOD 11/08/2024 1:23 PM [facility] Anion Gap 8 3 - 11 LAB CHEMISTRY METHOD 11/08/2024 1:23 PM [facility] Glucose 80 70 - 100 mg/dL LAB CHEMISTRY METHOD 11/08/2024 1:23 PM [facility] BUN 25 5 - 25 mg/dL LAB CHEMISTRY METHOD 11/08/2024 1:23 PM [facility] Creatinine 0.74 0.50 - 1.10 mg/dL LAB CHEMISTRY METHOD 11/08/2024 1:23 PM [facility] eGFR 90 >=60 mL/min/1. 73m2 LAB CHEMISTRY METHOD 11/08/2024 1:23 PM [facility] Comment:Calculation based on the Chronic Kidney Disease Epidemiology Collaboration (CKD-EPI) equation refit without adjustment for race. BUN/Creatinine Ratio 33.8 LAB CHEMISTRY METHOD 11/08/2024 1:23 PM [facility] Calcium 8.3(L) 8.5 - 10.5 mg/dL LAB CHEMISTRY METHOD 11/08/2024 1:23 PM [facility] Blood Venous blood specimen / Unknown Venipuncture / Unknown 11/08/2024 7:23 AM EDT 11/08/2024 10:27 AM EDT Erickson Melton MD LAB BLOOD ORDERABLES Final Result [facility] [address] [place] [address], * (ABNORMAL) Complete blood count (11/08/2024 7:23 AM EDT) WBC 4.7(L) 4.8 - 10.8 K/mcL LAB HEMETOLOGY METHOD 11/08/2024 11:11 AM EDT [facility] RBC 3.90 3.80 - 4.80 M/mcL LAB HEMETOLOGY METHOD 11/08/2024 11:11 AM [facility] Hemoglobin 13.1 11.5 - 16.0 g/dL LAB HEMETOLOGY METHOD 11/08/2024 11:11 AM [facility] Hematocrit 41.6 35.0 - 47.0 % LAB HEMETOLOGY METHOD 11/08/2024 11:11 AM [facility] MCV 107.5(H) 79.0 - 98.0 FL LAB HEMETOLOGY METHOD 11/08/2024 11:11 AM [facility] MCH 33.9(H) 27.0 - 32.0 pcg LAB HEMETOLOGY METHOD 11/08/2024 11:11 AM [facility] MCHC 31.5(L) 32.0 - 37.0 g/dL LAB HEMETOLOGY METHOD 11/08/2024 11:11 AM [facility] RDW 16.2(H) 11.0 - 15.0 % LAB HEMETOLOGY METHOD 11/08/2024 11:11 AM [facility] Platelets 225 130 - 400 K/mcL LAB HEMETOLOGY METHOD 11/08/2024 11:11 AM [facility] MPV 11.2(H) 7.0 - 11.0 FL LAB HEMETOLOGY METHOD 11/08/2024 11:11 AM EDT [facility] NRBC 0.0 <1.0 % LAB HEMETOLOGY METHOD 11/08/2024 11:11 AM EDT [facility] NRBC Absolute 0.00 <0.10 K/mcL LAB HEMETOLOGY METHOD 11/08/2024 11:11 AM EDT [facility] Blood Venous blood specimen / Unknown Venipuncture / Unknown 11/08/2024 7:23 AM EDT 11/08/2024 10:25 AM EDT Erickson Melton MD LAB BLOOD ORDERABLES Final Result [facility] [address] [place] [address], documented in this encounter Visit Diagnoses Diagnosis [...] documented as of this encounter Care Teams Kitchen Food Assembler Relationship Specialty Start Date End Date Erickson Melton MD [address] [place] [id number] PCP - General Internal Medicine 09/13/24 documented as of this encounter
--- OUTSIDE RECORDS SUMMARY | 2025-04-20 11:47 | XMS_ITS | Encounter Summary ---
Author Organization [facility] Address [address] [place] [address] Care Team Providers Care Advanced Practice Provider Name Role Phone Erickson Melton MD Primary Care Provider +1- [phone] Encounter Details Date Type Department Care Team (Late st Contact Info) Description 10/03/[address] [facility] - Main Lab 299 [facility] [place] [address] Erickson Melton MD [address] [place] [address] Anemia, unspecified; Hypothyroidism, unspecified; Other seizures (CMS/HCC [...] for your loved ones. For example, child support officer or elderly care for an older adult? [...] Date Record ed Physical Abuse Unrecognized value 10/07/2024 Verbal Abuse Unrecognized value 10/07/2024 Comments Unknown Sex and Gender Information [...] documented as of this encounter Care Teams Advanced Practice Provider Relationship Specialty Start Date End Date Erickson Melton MD [address] [place] [address] PCP - General Internal Medicine 09/13/24 documented as of this encounter
--- OUTSIDE RECORDS SUMMARY | 2025-04-20 11:47 | XMS_ITS | Encounter Summary ---
Author Organization [facility] Address [address] [place] [address] Care Team Providers Care Coring Machine Operator Name Role Phone Erickson Melton MD Primary Care Provider +1- [phone] Encounter Details Date Type Department Care Team (Late st Contact Info) Description 09/19/2024 Lab Requisition [facility] - Main Lab 299 [facility] [place] [address] Erickson Melton MD [address] [place] [id number] Other seizures (CMS/HCC V24, CMS/HCC V28); Hypothyroidism, [...] (ABNORMAL) Thyroxine total (09/19/2024 9:04 AM EDT) [facility] T4, Total 2.8(L) 4.5 - 10.9 mcg/dL LAB CHEMISTRY METHOD 09/19/2024 1:40 PM EDT [facility] Blood Venous blood specimen / Unknown Venipuncture / Unknown 09/19/2024 9:04 AM EDT 09/19/2024 11:18 AM EDT Erickson Melton MD LAB BLOOD ORDERABLES Final Result [facility] [address] [place] [address], * (ABNORMAL) Comprehensive metabolic panel (09/19/2024 9:04 AM EDT) [facility] Sodium 139 133 - 145 mmol/L LAB CHEMISTRY METHOD 09/19/2024 1:38 PM [facility] Potassium 4.2 3.5 - 5.5 mmol/L LAB CHEMISTRY METHOD 09/19/2024 1:38 PM [facility] Chloride 97 96 - 110 mmol/L LAB CHEMISTRY METHOD 09/19/2024 1:38 PM T [facility] CO2 38(H) 21 - 32 mmol/L LAB CHEMISTRY METHOD 09/19/2024 1:38 PM [facility] Anion Gap 4 3 - 11 LAB CHEMISTRY METHOD 09/19/2024 1:38 PM [facility] Glucose 98 70 - 100 mg/dL LAB CHEMISTRY METHOD 09/19/2024 1:38 PM [facility] BUN 27(H) 5 - 25 mg/dL LAB CHEMISTRY METHOD 09/19/2024 1:38 PM T [facility] Creatinine 0.67 0.50 - 1.10 mg/dL LAB CHEMISTRY METHOD 09/19/2024 1:38 PM T [facility] eGFR 98 >=60 mL/min/1. 73m2 LAB CHEMISTRY METHOD 09/19/2024 1:38 PM [facility] Comment:Calculation based on the Chronic Kidney Disease Epidemiology Collaboration (CKD-EPI) equation refit without adjustment for race. BUN/Creatinine Ratio 40.3 LAB CHEMISTRY METHOD 09/19/2024 1:38 PM T [facility] Calcium 8.9 8.5 - 10.5 mg/dL LAB CHEMISTRY METHOD 09/19/2024 1:38 PM [facility] AST (SGOT) 20 10 - 42 unit/L LAB CHEMISTRY METHOD 09/19/2024 1:38 PM [facility] ALT (SGPT) 32 10 - 60 unit/L LAB CHEMISTRY METHOD 09/19/2024 1:38 PM [facility] Alkaline Phosphatase 144(H) 42 - 121 unit/L LAB CHEMISTRY METHOD 09/19/2024 1:38 PM [facility] Total Protein 6.6 6.0 - 8.0 g/dL LAB CHEMISTRY METHOD 09/19/2024 1:38 PM [facility] Albumin 2.6(L) 3.2 - 5.0 g/dL LAB CHEMISTRY METHOD 09/19/2024 1:38 PM [facility] Total Bilirubin 0.2 0.0 - 1.4 mg/dL LAB CHEMISTRY METHOD 09/19/2024 1:38 PM [facility] Blood Venous blood specimen / Unknown Venipuncture / Unknown 09/19/2024 9:04 AM EDT 09/19/2024 11:18 AM EDT us Erickson Melton MD LAB BLOOD ORDERABLES Final Result [facility] [address] [place] [address], * (ABNORMAL) Complete blood count (09/19/2024 9:04 AM EDT) [facility] WBC 7.4 4.8 - 10.8 K/mcL LAB HEMETOLOGY METHOD 09/19/2024 11:51 AM EDT [facility] RBC 3.30(L) 3.80 - 4.80 M/mcL LAB HEMETOLOGY METHOD 09/19/2024 11:51 AM EDT [facility] Hemoglobin 11.0(L) 11.5 - 16.0 g/dL LAB HEMETOLOGY METHOD 09/19/2024 11:51 AM [facility] Hematocrit 35.4 35.0 - 47.0 % LAB HEMETOLOGY METHOD 09/19/2024 11:51 AM [facility] MCV 108.3(H) 79.0 - 98.0 FL LAB HEMETOLOGY METHOD 09/19/2024 11:51 AM [facility] MCH 33.6(H) 27.0 - 32.0 pcg LAB HEMETOLOGY METHOD 09/19/2024 11:51 AM [facility] MCHC 31.1(L) 32.0 - 37.0 g/dL LAB HEMETOLOGY METHOD 09/19/2024 11:51 AM [facility] RDW 14.5 11.0 - 15.0 % LAB HEMETOLOGY METHOD 09/19/2024 11:51 AM [facility] Platelets 291 130 - 400 K/mcL LAB HEMETOLOGY METHOD 09/19/2024 11:51 AM [facility] MPV 11.1(H) 7.0 - 11.0 FL LAB HEMETOLOGY METHOD 09/19/2024 11:51 AM EDT [facility] NRBC 0.0 <1.0 % LAB HEMETOLOGY METHOD 09/19/2024 11:51 AM EDT [facility] NRBC Absolute 0.00 <0.10 K/mcL LAB HEMETOLOGY METHOD 09/19/2024 11:51 AM EDT [facility] Blood Venous blood specimen / Unknown Venipuncture / Unknown 09/19/2024 9:04 AM EDT 09/19/2024 11:18 AM EDT us Erickson Melton MD LAB BLOOD ORDERABLES Final Result [facility] [address] [place] [address], documented in this encounter Visit Diagnoses Diagnosis [...] documented as of this encounter Care Teams Coring Machine Operator Relationship Specialty Start Date End Date Erickson Melton MD [address] [place] [address] PCP - General Internal Medicine 09/13/24 documented as of this encounter
--- OUTSIDE RECORDS SUMMARY | 2025-04-20 11:47 | XMS_ITS | Encounter Summary ---
Author Organization [facility] Address [address] [place] [address] Care Team Providers Care Health Screener Name Role Phone Erickson Melton MD Primary Care Provider +1- [phone] Encounter Details Date Type Department Care Team (Late st Contact Info) Description 10/24/2024 Lab Requisition [facility] - Main Lab [address] [facility] [place] [address] Erickson Melton MD [address] [place] [address] Pneumonia, unspecified organism; Anemia, unspecified Social History [...] your loved ones. For example, child nutrition assistant or elderly care for an older [...] mmol/L LAB CHEMISTRY METHOD 10/25/2024 11:17 AM [facility] Potassium 4.2 3.5 - 5.5 mmol/L LAB CHEMISTRY METHOD 10/25/2024 11:17 AM [facility] Chloride 102 96 - 110 mmol/L LAB CHEMISTRY METHOD 10/25/2024 11:17 AM [facility] CO2 31 21 - 32 mmol/L LAB CHEMISTRY METHOD 10/25/2024 11:17 AM [facility] Anion Gap 9 3 - 11 LAB CHEMISTRY METHOD 10/25/2024 11:17 AM [facility] Glucose 98 70 - 100 mg/dL LAB CHEMISTRY METHOD 10/25/2024 11:17 AM [facility] BUN 26(H) 5 - 25 mg/dL LAB CHEMISTRY METHOD 10/25/2024 11:17 AM [facility] Creatinine 0.71 0.50 - 1.10 mg/dL LAB CHEMISTRY METHOD 10/25/2024 11:17 AM [facility] eGFR 95 >=60 mL/min/1. 73m2 LAB CHEMISTRY METHOD 10/25/2024 11:17 AM [facility] Comment:Calculation based on the Chronic Kidney Disease Epidemiology Collaboration (CKD-EPI) equation refit without adjustment for race. BUN/Creatinine Ratio 36.6 LAB CHEMISTRY METHOD 10/25/2024 11:17 AM [facility] Calcium 8.8 8.5 - 10.5 mg/dL LAB CHEMISTRY METHOD 10/25/2024 11:17 AM [facility] Blood Venous blood specimen / Unknown Venipuncture / Unknown 10/25/2024 8:09 AM EDT 10/25/2024 9:05 AM EDT Erickson Melton MD LAB BLOOD ORDERABLES Final Result [facility] [address] [place] [address], * (ABNORMAL) Complete blood count (10/25/2024 8:09 AM EDT) WBC 5.1 4.8 - 10.8 K/mcL LAB HEMETOLOGY METHOD 10/25/2024 10:40 AM EDT [facility] RBC 3.70(L) 3.80 - 4.80 M/mcL LAB HEMETOLOGY METHOD 10/25/2024 10:40 AM EDT [facility] Hemoglobin 12.7 11.5 - 16.0 g/dL LAB HEMETOLOGY METHOD 10/25/2024 10:40 AM [facility] Hematocrit 40.0 35.0 - 47.0 % LAB HEMETOLOGY METHOD 10/25/2024 10:40 AM EDT [facility] MCV 107.2(H) 79.0 - 98.0 FL LAB HEMETOLOGY METHOD 10/25/2024 10:40 AM T [facility] MCH 34.0(H) 27.0 - 32.0 pcg LAB HEMETOLOGY METHOD 10/25/2024 10:40 AM T [facility] MCHC 31.8(L) 32.0 - 37.0 g/dL LAB HEMETOLOGY METHOD 10/25/2024 10:40 AM EDT [facility] RDW 16.7(H) 11.0 - 15.0 % LAB HEMETOLOGY METHOD 10/25/2024 10:40 AM T [facility] Platelets 189 130 - 400 K/mcL LAB HEMETOLOGY METHOD 10/25/2024 10:40 AM EDT [facility] MPV 11.2(H) 7.0 [...] Result [facility] [address] [place] [address], documented in this encounter Visit Diagnoses Diagnosis [...] documented as of this encounter Care Teams Health Screener Relationship Specialty Start Date End Date Erickson Melton MD [address] [place] [address] PCP - General Internal Medicine 09/13/24 documented as of this encounter
--- OUTSIDE RECORDS SUMMARY | 2025-04-20 11:47 | XMS_ITS | Clinical Summary ---
Author Organization [address] Address [address] [place] [phone] Phone Care Team Providers Care Roll Shop Supervisor Name Role Phone Erickson Melton MD Primary Care Provider +1- [phone] Allergies Active Allergy Reactions Criticality Noted Date Comments Amoxicillin Unknown 09/30/2024 Patient has tolerated cefdinir in 2024 at [facility] and also ceftriaxone at [facility] 2024 Clindamycin Unknown 09/30/2024 Sulfa (Sulfonamide [...] EDT - 02/08/2025 5:00 PM EDT Emergency [facility] Emergency [address] [place] [address] Yasmany Hand MD 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[facility] V24, [facility] V28) (Primary Dx) Discharge Disposition: Home or Self Care 01/18/2025 2:02 PM EDT Anesthesia Event [facility] Interventional Radiology [address] [place] [address] Kwaku Knutson DO 01/12/2025 3:45 PM EDT - 01/25/2025 4:30 PM EDT Hospital Encounter [facility] Medical Surgical Unit [address] [place] [id number] Saran Willis MD Flores, Carlos M, MD Kela, Kashyap Devendrabhai, MD Rasul, Yar M, MD 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) Discharge Disposition: Senior Care Care Facility from Last 3 Months Surgical History Surgery Date Site/Laterality Comments TUBAL LIGATION GASTROTOMY CATARACT EXTRACTION Medical History Medical History Date Comments Down syndrome Dementia ([facility] V24, [facility] V28) CVA (cerebral vascular accident) ([facility] V24, [facility] [place] V28) Hypothyroidism Aspiration pneumonia ([facility] V24, [facility] V28) C. difficile colitis Social History Tobacco [...] for your loved ones. For example, child adolescent care or elderly care for an older adult? [...] Date Record ed Physical Abuse Unrecognized value 01/25/2025 Verbal Abuse Unrecognized value 01/25/2025 Comments No Sex and Gender Information [...] Health Maintenance Due Date Last Done Comments Colorectal Cancer Screening: Colonoscopy 1960 Cervical Cancer Screening: Pap Smear 1981 Pneumococcal Vaccine: 50+ Years (1 of 1 - PCV) 2010 Zoster Vaccines (1 of 2) 2010 Breast Cancer Screening 11/02/2011 11/01/2009 Depression Screening 07/06/2024 Cholesterol Screening (Lipid Panel) 09/13/2024 Hepatitis C Screening 09/13/2024 Medicare Annual Wellness Visit 09/13/2024 Osteoporosis Screening (Bone Density Screening) 09/13/2024 Influenza Vaccine (#1) 2025 , 03/31/2023, 05/16/2022, Additional history exists COVID-19 Vaccine ( season) 2025 04/29/2024, 12/25/2021, 04/30/2021, Additional history exists Social Influencers of Health Screening 10/06/2025 10/06/2024 Falls Risk Assessment 01/25/2026 01/25/2025 DTaP,Tdap,and Td Vaccines (2 - Td or Tdap) 09/06/2033 09/07/2023 RSV Immunization Adult Patients (1 - 1-dose 75+ series) 2035 HIB Vaccines Aged Out No longer eligi [...] ECG 12-LEAD Routine 01/18/2025 1:53 AM EDT from Last 3 Months Results * Feeding Tube Replacement (02/08/2025 3:35 PM EDT) Yasmany Andersen MD - 02/08/2025 3:35 PM EDT Yasmany Hand MD 02/08/2025 3:38 PM Feeding Tube Replacement Date/Time: 02/08/2025 3:35 PM Performed by: Yasmany Hand MD Authorized by: Yasmany Hand MD Consent: Consent given by: Healthcare agent Risks, benefits, and alternatives were discussed: yes [place] protocol: Patient identity confirmed: Arm band Pre-procedure [...] Signed Date: 02/08/2025 14:11 ET Workstation ID: [id number] Transcribed By: Self Edit Transcribed Date: 02/08/2025 [...] the [facility] obtained[facility] is well positioned with balloon [...] Signed Date: 02/08/2025 14:11 ET Workstation ID: [id number] Transcribed By: Self Edit Transcribed Date: 02/08/2025 14:10 ET Yasmany Hand MD IMG XR PROCEDURES Final R esult * POCT Glucose, blood (01/25/2025 11:43 AM EDT) Only the most recent of30 resultswithin the time period is included. [facility] Glucose POCT 87 70 - 100 mg/dL 01/25/2025 11:45 AM EDT [facility] Blood Capillary blood specimen / Unknown 01/25/2025 11:43 AM EDT 01/25/2025 11:46 AM EDT Jean Paul Medel MD LAB POINT O F CARE TEST DOCKED DEVICE UNSOLICITED RESULTS Final Result [facility] [address] [place] [address], [place] [phone] * (ABNORMAL) Basic metabolic panel (01/25/2025 6:58 AM EDT) Only the most recent of8 resultswithin the time period is included. [facility] Sodium 139 133 - 145 mmol/L LAB CHEMISTRY METHOD 01/25/2025 8:06 AM EDT [facility] Potassium 4.9 3.5 - 5.5 mmol/L LAB CHEMISTRY METHOD 01/25/2025 8:06 AM [facility] Chloride 102 96 - 110 mmol/L LAB CHEMISTRY METHOD 01/25/2025 8:06 AM [facility] CO2 31 21 - 32 mmol/L LAB CHEMISTRY METHOD 01/25/2025 8:06 AM [facility] Anion Gap 6 3 - 11 LAB CHEMISTRY METHOD 01/25/2025 8:06 AM [facility] Glucose 82 70 - 100 mg/dL LAB CHEMISTRY METHOD 01/25/2025 8:06 AM [facility] BUN 29(H) 5 - 25 mg/dL LAB CHEMISTRY METHOD 01/25/2025 8:06 AM [facility] Creatinine 0.84 0.50 - 1.10 mg/dL LAB CHEMISTRY METHOD 01/25/2025 8:06 AM [facility] eGFR 78 >=60 mL/min/1. 73m2 LAB CHEMISTRY METHOD 01/25/2025 8:06 AM [facility] Comment:Calculation based on the Chronic Kidney Disease Epidemiology Collaboration (CKD-EPI) equation refit without adjustment for race. BUN/Creatinine Ratio 34.5 LAB CHEMISTRY METHOD 01/25/2025 8:06 AM [facility] Calcium 9.3 8.5 - 10.5 mg/dL LAB CHEMISTRY METHOD 01/25/2025 8:06 AM [facility] Blood Venous blood specimen / Unknown Venipuncture / Unknown 01/25/2025 6:58 AM EDT 01/25/2025 7:13 AM EDT us Andrea Sanchez MD LAB BLOOD ORDERABLES Final Resul t [facility] [address] [place] [address], * Lavender tube (01/24/2025 6:51 AM EDT) Only the most recent of3 resultswithin the time period is included. [facility] Extra Tube Hold for add-ons. 01/24/2025 9:01 AM EDT [facility] Comment:Auto resulted. Blood Venous blood specimen / Unknown 01/24/2025 6:51 AM EDT 01/24/2025 7:15 AM EDT Jean Paul Medel MD LAB BLOOD ORDERABLE S Final Result [facility] [address] [place] [address], [place] [phone] * (ABNORMAL) CBC auto differential (01/21/2025 5:34 AM EDT) Only the most recent of4 resultswithin the time period is included. [facility] WBC 7.0 4.8 - 10.8 K/mcL LAB HEMETOLOGY METHOD 01/21/2025 7:15 AM EDT [facility] RBC 4.00 3.80 - 4.80 M/mcL LAB HEMETOLOGY METHOD 01/21/2025 7:15 AM EDT [facility] Hemoglobin 13.2 11.5 - 16.0 g/dL LAB HEMETOLOGY METHOD 01/21/2025 7:15 AM EDT [facility] Hematocrit 41.5 35.0 - 47.0 % LAB HEMETOLOGY METHOD 01/21/2025 7:15 AM T [facility] MCV 104.0(H) 79.0 - 98.0 FL LAB HEMETOLOGY METHOD 01/21/2025 7:15 AM [facility] MCH 33.1(H) 27.0 - 32.0 pcg LAB HEMETOLOGY METHOD 01/21/2025 7:15 AM EDT [facility] MCHC 31.8(L) 32.0 - 37.0 g/dL LAB HEMETOLOGY METHOD [facility] RDW 14.9 11.0 - 15.0 % LAB HEMETOLOGY METHOD 01/21/2025 7:15 AM [facility] Platelets 216 130 - 400 K/mcL LAB HEMETOLOGY METHOD 01/21/2025 7:15 AM [facility] MPV 10.4 7.0 - 11.0 FL LAB HEMETOLOGY METHOD 01/21/2025 7:15 AM [facility] NRBC 0.0 <1.0 % LAB HEMETOLOGY METHOD 01/21/2025 7:15 AM [facility] NRBC Absolute 0.00 <0.10 K/mcL LAB HEMETOLOGY METHOD 01/21/2025 7:15 AM [facility] Neutrophils Relative 73.1 % LAB HEMETOLOGY METHOD 01/21/2025 7:15 AM [facility] Lymphocytes Relative 12.1 % LAB HEMETOLOGY METHOD 01/21/2025 7:15 AM [facility] Monocytes Relative 11.0 % LAB HEMETOLOGY METHOD 01/21/2025 7:15 AM [facility] Eosinophils Relative 2.4 % LAB HEMETOLOGY METHOD 01/21/2025 7:15 AM [facility] Basophils Relative 0.7 % LAB HEMETOLOGY METHOD 01/21/2025 7:15 AM [facility] Immature Granulocytes Relative 0.7 % LAB HEMETOLOGY METHOD 01/21/2025 7:15 AM [facility] Neutrophils Absolute 5.14 1.50 - 7.00 K/mcL LAB HEMETOLOGY METHOD 01/21/2025 7:15 AM [facility] Lymphocytes Absolute 0.85(L) 1.00 - 5.00 K/mcL LAB HEMETOLOGY METHOD 01/21/2025 7:15 AM EDT [facility] Monocytes Absolute 0.77 0.20 - 1.00 K/[facility] LAB HEMETOLOGY METHOD 01/21/2025 7:15 AM EDT [facility] Eosinophils Absolute 0.17 0.00 - 0.50 K/[facility] LAB HEMETOLOGY METHOD 01/21/2025 7:15 AM EDT [facility] Basophils Absolute 0.05 0.00 - 0.20 K/[facility] LAB HEMETOLOGY METHOD 01/21/2025 7:[address] [facility] Immature Granulocytes Absolute 0.05(H) 0.00 - 0.03 K/[facility] LAB HEMETOLOGY METHOD 01/21/2025 7:15 AM EDT [facility] Blood Venous blood specimen / Unknown Venipuncture / Unknown 01/21/2025 5:34 AM EDT 01/21/2025 6:12 AM EDT us Andrea Sanchez MD LAB BLOOD ORDERABLES Final Resul t [facility] [address] [place] [address], * IR Change G-Tube/GJ-Tube Perc Fluoro (01/18/2025 2:54 PM EDT) Anatomical Region Laterality Modality N/A Interventional R adiology 01/19/2025 8:42 AM EDT Impressions 01/19/2025 8:46 AM EDT Impression: 18-Salvadorean gastrostomy tube replacement. Described cellulitis around the gastrostomy tube appears to be responding well to treatment. No progression noted. Anesthesia support required for gastrostomy tube placement due to patient's underlying condition. -------- FINAL REPORT -------- Dictated By: Yves Manning Dictated Date: 01/19/2025 08:42 ET Assigned Physician: Yves Manning Reviewed and Electronically Signed By: Yves Manning Signed Date: 01/19/2025 08:46 ET Workstation ID: [id number] Transcribed By: Self Edit Transcribed Date: 01/19/2025 [...] was removed utilizing pimple technique. A new 18-Salvadorean gastrostomy tube was easily advanced over the [...] tube was removed utilizingpimple technique. A new 18-Salvadorean gastrostomy tube was easily advancedover the wire with balloon inflated in the stomach with a dilute mixtureof STERILE WATER and contrast. Additional administration of contrastthrough the gastrostomy port demonstrates appropriate positioning. TheMolnar disc was advanced to the skin. After being extubated, the patient was discharged in stable condition.Anticipate exchange of gastrostomy tube in 4-6 months IMPRESSION: Impression: 18-Salvadorean gastrostomy tube replacement. Described cellulitis around the gastrostomy tube appears to be respondingwell to treatment. No progression noted. Anesthesia support required for gastrostomy tube placement due topatient's underlying condition. -------- FINAL REPORT -------- Dictated By: Yves Manning Dictated Date: 01/19/2025 08:42 ET Assigned Physician: Yves Manning Reviewed and Electronically Signed By: Yves Manning Signed Date: 01/19/2025 08:46 ET Workstation ID: [id number] Transcribed By: Self Edit Transcribed Date: 01/19/2025 08:42 ET us Vincent Trejo MD IMG IR PROCEDURES Final Resul t * TH AN ENDOTRACHEAL(NO CHARGE) (01/18/2025 2:22 PM EDT) Narrative Margaret Poole CRNA - 01/18/2025 2:22 PM EDT Margaret [...] GEMUSE QTc 483 ms GEMUSE P Wave [place] 49 degrees GEMUSE R [place] -43 degrees GEMUSE ECG Interpretation Sinus bradycardia Left bundle branch block Abnormal ECG When compared with ECG of 05-OCT-2024 16:32, No significant change was found Confirmed by KENNETH WALTERS ([id number]) on 01/18/2025 10:18:31 AM [facility] 01/18/2025 1:53 AM EDT 01/18/2025 10:18 AM EDT us Andrea Sanchez MD ECG ORDERABLES Final Result [facility] from Last 3 Months Insurance MEDICARE [place]ICA[place] - [place] Advance Directives Documents on File Type Date Recorded Patient Stonecutter Assistant Expl anation Advance Directives and Livin g [...] Agents on File Name Relationship Healthcare Agent [facility] Communication [facility] Agent Care Teams Roll Shop Supervisor Relationship Specialty Start Date End Date Erickson Melton MD [address] [place] [address] PCP - General Internal Medicine 09/13/24
--- OUTSIDE RECORDS SUMMARY | 2025-04-20 11:47 | XMS_ITS | Encounter Summary ---
Author Organization [facility] Address [address] [place] [address] Care Team Providers Care Surgical Garment Assembler Name Role Phone Erickson Melton MD Primary Care Provider +1- [phone] Encounter Details Date Type Department Care Team (Late st Contact Info) Description 11/28/[address] [facility] [address] [facility] [place] [address] Erickson Melton MD [address] [place] [address] Pneumonia, unspecified organism; Anemia, unspecified Social History [...] for your loved ones. For example, director child development center or elderly care for an older adult? [...] mmol/L LAB CHEMISTRY METHOD 11/29/2024 7:09 AM [facility] Potassium 4.2 3.5 - 5.5 mmol/L LAB CHEMISTRY METHOD 11/29/2024 7:09 AM [facility] Chloride 103 96 - 110 mmol/L LAB CHEMISTRY METHOD 11/29/2024 7:09 AM [facility] CO2 29 21 - 32 mmol/L LAB CHEMISTRY METHOD 11/29/2024 7:09 AM [facility] Anion Gap 7 3 - 11 LAB CHEMISTRY METHOD 11/29/2024 7:09 AM [facility] Glucose 89 70 - 100 mg/dL LAB CHEMISTRY METHOD 11/29/2024 7:09 AM [facility] BUN 23 5 - 25 mg/dL LAB CHEMISTRY METHOD 11/29/2024 7:09 AM [facility] Creatinine 0.64 0.50 - 1.10 mg/dL LAB CHEMISTRY METHOD 11/29/2024 7:09 AM [facility] eGFR 99 >=60 mL/min/1. 73m2 LAB CHEMISTRY METHOD 11/29/2024 7:09 AM [facility] Comment:Calculation based on the Chronic Kidney Disease Epidemiology Collaboration (CKD-EPI) equation refit without adjustment for race. BUN/Creatinine Ratio 35.9 LAB CHEMISTRY METHOD 11/29/2024 7:09 AM [facility] Calcium 9.6 8.5 - 10.5 mg/dL LAB CHEMISTRY METHOD 11/29/2024 7:09 AM [facility] Blood Venous blood specimen / Unknown Venipuncture / Unknown 11/29/2024 5:44 AM EDT 11/29/2024 6:24 AM EDT us Erickson Melton MD LAB BLOOD ORDERABLES Final Result [facility] [address] [place] [address], * (ABNORMAL) Complete blood count (11/29/2024 5:44 AM EDT) WBC 3.9(L) 4.8 - 10.8 K/mcL LAB HEMETOLOGY METHOD 11/29/2024 6:54 AM EDT [facility] RBC 3.90 3.80 - 4.80 M/mcL LAB HEMETOLOGY METHOD 11/29/2024 6:54 AM EDT [facility] Hemoglobin 13.1 11.5 - 16.0 g/dL LAB HEMETOLOGY METHOD 11/29/2024 6:54 AM EDT [facility] Hematocrit 41.5 35.0 - 47.0 % LAB HEMETOLOGY METHOD 11/29/2024 6:54 AM EDT [facility] MCV 106.1(H) 79.0 - 98.0 FL LAB HEMETOLOGY METHOD 11/29/2024 6:54 AM EDT [facility] MCH 33.5(H) 27.0 - 32.0 pcg LAB HEMETOLOGY METHOD 11/29/2024 6:54 AM EDT [facility] MCHC 31.6(L) 32.0 - 37.0 g/dL LAB HEMETOLOGY METHOD 11/29/2024 6:54 AM EDT [facility] RDW 15.2(H) 11.0 - 15.0 % LAB HEMETOLOGY METHOD 11/29/2024 6:54 AM EDT [facility] Platelets 200 130 - 400 K/mcL LAB HEMETOLOGY METHOD 11/29/2024 6:54 AM EDT [facility] MPV 10.8 7.0 - 11.0 FL LAB HEMETOLOGY METHOD 11/29/2024 6:54 AM EDT [facility] NRBC 0.0 <1.0 % LAB HEMETOLOGY METHOD 11/29/2024 6:54 AM EDT [facility] NRBC Absolute 0.00 <0.10 K/mcL LAB HEMETOLOGY METHOD 11/29/2024 6:54 AM EDT [facility] Blood Venous blood specimen / Unknown Venipuncture / Unknown 11/29/2024 5:44 AM EDT 11/29/2024 6:27 AM EDT Erickson Melton MD LAB BLOOD ORDERABLES Final Result [facility] [address] [place] [address], documented in this encounter Visit Diagnoses Diagnosis Pneumonia, unspecified organism Anemia, unspecified documented in this encounter Additional Health Concerns Infection Onset Date Last Indicated Resolved Time C. difficile Rule-Out 01/13/2025 01/13/20252024 4:32 AM EDT C. difficile Rule-Out 01/13/2025 01/13/20252024 10:19 AM EDT C. difficile 01/13/2025 01/13/2025 02/06/2025 7:06 PM EDT documented as of this encounter Care Teams Surgical Garment Assembler Relationship Specialty Start Date End Date Erickson Melton MD [address] [place] [id number] PCP - General Internal Medicine 09/13/24 documented as of this encounter
--- OUTSIDE RECORDS SUMMARY | 2025-04-20 11:47 | XMS_ITS | Encounter Summary ---
Author Organization [facility] Address [address] [place] [address] Care Team Providers Care Raw Shellfish Preparer Name Role Phone Erickson Melton MD Primary Care Provider +1- [phone] Encounter Details Date Type Department Care Team (Late st Contact Info) Description 09/13/2024 Lab Requisition [facility] - Main Lab [address] [facility] [place] [address] Erickson Melton MD [address] [place] [address] Anemia, unspecified; Hypothyroidism, unspecified; Other seizures (CMS/HCC [...] - 35 ug/mL 09/16/2024 12:30 PM EDT [facility] Comment: If applicable, any drug confirmation testing reported here was developed and the performance characteristics determined by [facility]. This confirmation testing has not been cleared or approved by the FDA. The laboratory is regulated under CLIA as qualified to perform high-complexity testing. This test is used for patient testing purposes. It should not be regarded as investigational or for research. Test performed at [facility], [address] , [place] [address] Yessy Coulter MD, PhD - Charge Hand Blood Venous blood specimen / Unknown Venipuncture / Unknown 09/13/2024 8:54 AM EDT 09/13/2024 10:34 AM EDT Erickson Melton MD LAB BLOOD ORDERABLES Final Result [facility] [address] [place] [address] * (ABNORMAL) Thyroid stimulating hormone (09/13/2024 8:54 AM EDT) TSH 7.10(H) 0.40 - 4.00 mcIU/mL LAB CHEMISTRY METHOD 09/13/2024 1:18 PM EDT [facility] Blood Venous blood specimen / Unknown Venipuncture / Unknown 09/13/2024 8:54 AM EDT 09/13/2024 10:34 AM EDT us Erickson Melton MD LAB BLOOD ORDERABLES Final Result [facility] [address] [place] [address], * (ABNORMAL) Comprehensive metabolic panel (09/13/2024 8:54 AM EDT) Sodium 142 133 - 145 mmol/L LAB CHEMISTRY METHOD 09/13/2024 1:41 PM [facility] Potassium 4.3 3.5 - 5.5 mmol/L LAB CHEMISTRY METHOD 09/13/2024 1:41 PM [facility] Chloride 99 96 - 110 mmol/L LAB CHEMISTRY METHOD 09/13/2024 1:41 PM [facility] CO2 36(H) 21 - 32 mmol/L LAB CHEMISTRY METHOD 09/13/2024 1:41 PM [facility] Comment:Results verified by repeat testing Anion Gap 7 3 - 11 LAB CHEMISTRY METHOD 09/13/2024 1:41 PM [facility] Glucose 105(H) 70 - 100 mg/dL LAB CHEMISTRY METHOD 09/13/2024 1:41 PM [facility] BUN 23 5 - 25 mg/dL LAB CHEMISTRY METHOD 09/13/2024 1:41 PM [facility] Creatinine 0.77 0.50 - 1.10 mg/dL LAB CHEMISTRY METHOD 09/13/2024 1:41 PM [facility] eGFR 86 >=60 mL/min/1. 73m2 LAB CHEMISTRY METHOD 09/13/2024 1:41 PM [facility] Comment:Calculation based on the Chronic Kidney Disease Epidemiology Collaboration (CKD-EPI) equation refit without adjustment for race. BUN/Creatinine Ratio 29.9 LAB CHEMISTRY METHOD 09/13/2024 1:41 PM [facility] Calcium 8.9 8.5 - 10.5 mg/dL LAB CHEMISTRY METHOD 09/13/2024 1:41 PM T [facility] AST (SGOT) 25 10 - 42 unit/L LAB CHEMISTRY METHOD 09/13/2024 1:41 PM [facility] ALT (SGPT) 24 10 - 60 unit/L LAB CHEMISTRY METHOD 09/13/2024 1:41 PM T [facility] Alkaline Phosphatase 118 42 - 121 unit/L LAB CHEMISTRY METHOD 09/13/2024 1:41 PM EDT [facility] Total Protein 6.9 6.0 - 8.0 g/dL LAB CHEMISTRY METHOD 09/13/2024 1:41 PM [facility] Albumin 2.8(L) 3.2 - 5.0 g/dL LAB CHEMISTRY METHOD 09/13/2024 1:41 PM [facility] Total Bilirubin 0.2 0.0 - 1.4 mg/dL LAB CHEMISTRY METHOD 09/13/2024 1:41 PM [facility] Blood Venous blood specimen / Unknown Venipuncture / Unknown 09/13/2024 8:54 AM EDT 09/13/2024 10:34 AM EDT Erickson Melton MD LAB BLOOD ORDERABLES Final Result [facility] [address] [place] [address], * (ABNORMAL) Complete blood count (09/13/2024 8:54 AM EDT) WBC 7.6 4.8 - 10.8 K/mcL LAB HEMETOLOGY METHOD 09/13/2024 12:06 PM [facility] RBC 3.60(L) 3.80 - 4.80 M/mcL LAB HEMETOLOGY METHOD 09/13/2024 12:06 PM [facility] Hemoglobin 12.1 11.5 - 16.0 g/dL LAB HEMETOLOGY METHOD 09/13/2024 12:06 PM EDT [facility] Hematocrit 38.2 35.0 - 47.0 % LAB HEMETOLOGY METHOD 09/13/2024 12:06 PM [facility] MCV 107.0(H) 79.0 - 98.0 FL LAB HEMETOLOGY METHOD 09/13[facility]2024 12:[facility] MCH 33.9(H) 27.0 - 32.0 pcg LAB HEMETOLOGY METHOD 09/13/2024 12:06 PM [facility] MCHC 31.7(L) 32.0 - 37.0 g/dL LAB HEMETOLOGY METHOD 09/13/2024 12:06 PM [facility] RDW 14.0 11.0 - 15.0 % LAB HEMETOLOGY METHOD 09/13/2024 12:06 PM [facility] Platelets 327 130 - 400 K/mcL LAB HEMETOLOGY METHOD 09/13/2024 12:06 PM [facility] MPV 11.0 7.0 - 11.0 FL LAB HEMETOLOGY METHOD 09/13/2024 12:06 PM [facility] NRBC 0.0 <1.0 % LAB HEMETOLOGY METHOD 09/13/2024 12:06 PM [facility] NRBC Absolute 0.00 <0.10 K/mcL LAB HEMETOLOGY METHOD 09/13/2024 12:06 PM [facility] Blood Venous blood specimen / Unknown Venipuncture / Unknown 09/13/2024 8:54 AM EDT 09/13/2024 10:34 AM EDT us Erickson Melton MD LAB BLOOD ORDERABLES Final Result [facility] [address] [place] [address], documented in this encounter Visit Diagnoses Diagnosis [...] documented as of this encounter Care Teams Raw Shellfish Preparer Relationship Specialty Start Date End Date Erickson Melton MD [address] [place] [address] PCP - General Internal Medicine 09/13/24 documented as of this encounter
--- OUTSIDE RECORDS SUMMARY | 2025-04-20 11:47 | XMS_ITS | Encounter Summary ---
Author Organization [facility] Address [address] [place] [address] Care Team Providers Care Water Taxi Captain Name Role Phone Erickson Melton MD Primary Care Provider +1- [phone] Encounter Details Date Type Department Care Team (Late st Contact Info) Description 10/27/2024 Lab Requisition [facility] - Main Lab [address] [facility] [place] [address] Erickson Melton MD [address] [place] [address] Enterocolitis due to Clostridium difficile, not specified [...] your loved ones. For example, early childhood teacher or elderly care for an older [...] Result [facility] [address] [place] [address], * (ABNORMAL) Complete blood count (10/27/2024 6:46 AM EDT) WBC 10.5 4.8 - 10.8 K/mcL LAB HEMETOLOGY METHOD 10/27/2024 8:39 AM EDT [facility] RBC 3.80 3.80 - [...] LAB HEMETOLOGY METHOD 10/27/2024 8:39 AM T [facility] MPV 10.6 7.0 - 11.0 FL LAB HEMETOLOGY METHOD 10/27/2024 8:39 AM EDT [facility] NRBC 0.0 <1.0 % LAB HEMETOLOGY METHOD 10/27/2024 8:39 AM EDT [facility] NRBC Absolute 0.00 <0.10 K/mcL LAB HEMETOLOGY METHOD 10/27/2024 8:39 AM EDT [facility] Blood Venous blood specimen / Unknown Venipuncture / Unknown 10/27/2024 6:46 AM EDT 10/27/2024 7:59 AM EDT Erickson Melton MD LAB BLOOD ORDERABLES Final Result [facility] [address] [place] [address], documented in this encounter Visit Diagnoses Diagnosis [...] documented as of this encounter Care Teams Water Taxi Captain Relationship Specialty Start Date End Date Erickson Melton MD [address] [place] [id number] PCP - General Internal Medicine 09/13/24 documented as of this encounter
--- OUTSIDE RECORDS SUMMARY | 2025-04-20 11:47 | XMS_ITS | Encounter Summary ---
Author Organization [facility] Address [address] [place] [address] Care Team Providers Care Logistics Analyst Name Role Phone Erickson Melton MD Primary Care Provider +1- [phone] Encounter Details Date Type Department Care Team (Late st Contact Info) Description 10/17/2024 Lab Requisition [facility] - Main Lab [address] [facility] [place] [address] Erickson Melton MD [address] [place] [address] Pneumonia, unspecified organism; Anemia, unspecified Social History [...] your loved ones. For example, child welfare worker or elderly care for an older adult? [...] mmol/L LAB CHEMISTRY METHOD 10/18/2024 11:47 AM [facility] Potassium 4.0 3.5 - 5.5 mmol/L LAB CHEMISTRY METHOD 10/18/2024 11:47 AM [facility] Chloride 99 96 - 110 mmol/L LAB CHEMISTRY METHOD 10/18/2024 11:47 AM [facility] CO2 35(H) 21 - 32 mmol/L LAB CHEMISTRY METHOD 10/18/2024 11:47 AM [facility] Anion Gap 5 3 - 11 LAB CHEMISTRY METHOD 10/18/2024 11:47 AM [facility] Glucose 76 70 - 100 mg/dL LAB CHEMISTRY METHOD 10/18/2024 11:47 AM [facility] BUN 19 5 - 25 mg/dL LAB CHEMISTRY METHOD 10/18/2024 11:47 AM [facility] Creatinine 0.71 0.50 - 1.10 mg/dL LAB CHEMISTRY METHOD 10/18/2024 11:47 AM [facility] eGFR 95 >=60 mL/min/1. 73m2 LAB CHEMISTRY METHOD 10/18/2024 11:47 AM [facility] Comment:Calculation based on the Chronic Kidney Disease Epidemiology Collaboration (CKD-EPI) equation refit without adjustment for race. BUN/Creatinine Ratio 26.8 LAB CHEMISTRY METHOD 10/18/2024 11:47 AM [facility] Calcium 9.4 8.5 - 10.5 mg/dL LAB CHEMISTRY METHOD 10/18/2024 11:47 AM [facility] Blood Venous blood specimen / Unknown Venipuncture / Unknown 10/18/2024 8:38 AM EDT 10/18/2024 10:05 AM EDT us Erickson Melton MD LAB BLOOD ORDERABLES Final Result [facility] [address] [place] [address], * (ABNORMAL) Complete blood count (10/18/2024 8:38 AM EDT) WBC 2.4(L) 4.8 - 10.8 K/mcL LAB HEMETOLOGY METHOD 10/18/2024 11:22 AM EDT [facility] RBC 3.60(L) 3.80 - 4.80 M/mcL LAB HEMETOLOGY METHOD 10/18/2024 11:22 AM [facility] Hemoglobin 12.3 11.5 - 16.0 g/dL LAB HEMETOLOGY METHOD 10/18/2024 11:22 AM [facility] Hematocrit 39.0 35.0 - 47.0 % LAB HEMETOLOGY METHOD 10/18/2024 11:22 AM [facility] MCV 107.7(H) 79.0 - 98.0 FL LAB HEMETOLOGY METHOD 10/18/2024 11:22 AM [facility] MCH 34.0(H) 27.0 - 32.0 pcg LAB HEMETOLOGY METHOD 10/18/2024 11:22 AM [facility] MCHC 31.5(L) 32.0 - 37.0 g/dL LAB HEMETOLOGY METHOD 10/18/2024 11:22 AM [facility] RDW 17.2(H) 11.0 - 15.0 % LAB HEMETOLOGY METHOD 10/18/2024 11:22 AM [facility] Platelets 238 130 - 400 K/mcL LAB HEMETOLOGY METHOD 10/18/2024 11:22 AM [facility] MPV 10.8 7.0 - 11.0 FL LAB HEMETOLOGY METHOD 10/18/2024 11:22 AM EDT [facility] NRBC 0.0 <1.0 % LAB HEMETOLOGY METHOD 10/18/2024 11:22 AM EDT [facility] NRBC Absolute 0.00 <0.10 K/mcL LAB HEMETOLOGY METHOD 10/18/2024 11:22 AM EDT [facility] Blood Venous blood specimen / Unknown Venipuncture / Unknown 10/18/2024 8:38 AM EDT 10/18/2024 10:05 AM EDT Erickson Melton MD LAB BLOOD ORDERABLES Final Result [facility] [address] [place] [address], documented in this encounter Visit Diagnoses Diagnosis [...] documented as of this encounter Care Teams Logistics Analyst Relationship Specialty Start Date End Date Erickson Melton MD [address] [place] [id number] PCP - General Internal Medicine 09/13/24 documented as of this encounter
--- OUTSIDE RECORDS SUMMARY | 2025-04-20 11:47 | XMS_ITS | Encounter Summary ---
Author Organization [facility] Address [address] [place] [address] Care Team Providers Care Wallcovering Hanger Name Role Phone Erickson Melton MD Primary Care Provider +1- [phone] Encounter Details Date Type Department Care Team (Late st Contact Info) Description 10/31/2024 Lab Requisition [facility] - Main Lab [address] [facility] [place] [address] Erickson Melton MD [address] [place] [address] Pneumonia, unspecified organism; Anemia, unspecified Social History [...] care for your loved ones. For example, senior care manager or elderly care for an older adult? [...] [facility] [address] [place] [address], * (ABNORMAL) Complete blood count (11/01/2024 6:41 AM EDT) WBC 9.2 4.8 - 10.8 K/mcL LAB HEMETOLOGY METHOD 11/01/2024 10:57 AM EDT [facility] RBC 3.90 3.80 - 4.80 M/mcL LAB HEMETOLOGY METHOD 11/01/2024 10:57 AM EDT [facility] Hemoglobin 13.5 11.5 - 16.0 g/dL LAB HEMETOLOGY METHOD [facility] Hematocrit 43.3 35.0 - 47.0 % LAB HEMETOLOGY METHOD 11/01/2024 10:57 [facility] MCV 110.7(H) 79.0 - 98.0 FL LAB HEMETOLOGY METHOD 11/01/2024 10:57 AM EDT [facility] MCH 34.5(H) 27.0 - 32.0 pcg LAB HEMETOLOGY METHOD 11/01/2024 10:57 AM EDT [facility] MCHC 31.2(L) 32.0 - 37.0 g/dL LAB HEMETOLOGY METHOD 11/01/2024 10:57 AM EDT [facility] RDW 16.9(H) 11.0 - 15.0 % LAB HEMETOLOGY METHOD 11/01/2024 10:57 AM EDT [facility] Platelets 210 130 - 400 K/mcL LAB HEMETOLOGY METHOD 11/01/2024 10:57 [facility] MPV 11.2(H) 7.0 - 11.0 FL LAB HEMETOLOGY METHOD 11/01/2024 10:57 AM EDT [facility] NRBC 0.0 <1.0 % LAB HEMETOLOGY METHOD 11/01/2024 10:57 AM EDT [facility] NRBC Absolute 0.00 <0.10 K/mcL LAB HEMETOLOGY METHOD 11/01/2024 10:57 AM EDT [facility] Blood Venous blood specimen / Unknown Venipuncture / Unknown 11/01/2024 6:41 AM EDT 11/01/2024 10:36 AM EDT us Erickson Melton MD LAB BLOOD ORDERABLES Final Result [facility] [address] [place] [address], documented in this encounter Visit Diagnoses Diagnosis [...] documented as of this encounter Care Teams Wallcovering Hanger Relationship Specialty Start Date End Date Erickson Melton MD [address] [place] [phone] PCP - General Internal Medicine 09/13/24 documented as of this encounter
--- OUTSIDE RECORDS SUMMARY | 2025-04-20 11:48 | XMS_ITS | Encounter Summary ---
Author Organization [facility] Address [address] [place] [address] Care Team Providers Care Window Shade Cutter Name Role Phone Erickson Melton MD Primary Care Provider +1- [phone] Encounter Details Date Type Department Care Team (Late st Contact Info) Description 09/26/2024 Lab Requisition [facility] - Main Lab [address] [facility] [place] [address] Erickson Melton MD [address] [place] [id number] Anemia, unspecified; Hypothyroidism, unspecified; Other seizures (CMS/HCC [...] mmol/L LAB CHEMISTRY METHOD 09/27/2024 8:30 AM [facility] Potassium 3.9 3.5 - 5.5 mmol/L LAB CHEMISTRY METHOD 09/27/2024 8:30 AM [facility] Chloride 102 96 - 110 mmol/L LAB CHEMISTRY METHOD 09/27/2024 8:30 AM [facility] CO2 37(H) 21 - 32 mmol/L LAB CHEMISTRY METHOD 09/27/2024 8:30 AM [facility] Anion Gap 3 3 - 11 LAB CHEMISTRY METHOD 09/27/2024 8:30 AM [facility] Glucose 108(H) 70 - 100 mg/dL LAB CHEMISTRY METHOD 09/27/2024 8:30 AM [facility] BUN 18 5 - 25 mg/dL LAB CHEMISTRY METHOD 09/27/2024 8:30 AM [facility] Creatinine 0.67 0.50 - 1.10 mg/dL LAB CHEMISTRY METHOD 09/27/2024 8:30 AM [facility] eGFR 98 >=60 mL/min/1. 73m2 LAB CHEMISTRY METHOD 09/27/2024 8:30 AM [facility] Comment:Calculation based on the Chronic Kidney Disease Epidemiology Collaboration (CKD-EPI) equation refit without adjustment for race. BUN/Creatinine Ratio 26.9 LAB CHEMISTRY METHOD 09/27/2024 8:30 AM [facility] Calcium 8.7 8.5 - 10.5 mg/dL LAB CHEMISTRY METHOD 09/27/2024 8:30 AM [facility] Blood Venous blood specimen / Unknown Venipuncture / Unknown 09/27/2024 7:12 AM EDT 09/27/2024 8:01 AM EDT us Erickson Melton MD LAB BLOOD ORDERABLES Final Result [facility] [address] [place] [address], * (ABNORMAL) Complete blood count (09/27/2024 7:12 AM EDT) WBC 7.2 4.8 - 10.8 K/mcL LAB HEMETOLOGY METHOD 09/27/2024 8:09 AM EDT [facility] RBC 3.20(L) 3.80 - 4.80 M/mcL LAB HEMETOLOGY METHOD 09/27/2024 8:09 AM [facility] Hemoglobin 10.9(L) 11.5 - 16.0 g/dL LAB HEMETOLOGY METHOD 09/27/2024 8:09 AM [facility] Hematocrit 35.3 35.0 - 47.0 % LAB HEMETOLOGY METHOD 09/27/2024 8:09 AM [facility] MCV 109.6(H) 79.0 - 98.0 FL LAB HEMETOLOGY METHOD 09/27/2024 8:09 AM [facility] MCH 33.9(H) 27.0 - 32.0 pcg LAB HEMETOLOGY METHOD 09/27/2024 8:09 AM [facility] MCHC 30.9(L) 32.0 - 37.0 g/dL LAB HEMETOLOGY METHOD 09/27/2024 8:09 AM [facility] RDW 16.3(H) 11.0 - 15.0 % LAB HEMETOLOGY METHOD 09/27/2024 8:09 AM [facility] Platelets 268 130 - 400 K/mcL LAB HEMETOLOGY METHOD 09/27/2024 8:09 AM T [facility] MPV 10.7 7.0 - 11.0 FL LAB HEMETOLOGY METHOD 09/27/2024 8:09 AM EDT [facility] NRBC 0.0 <1.0 % LAB HEMETOLOGY METHOD 09/27/2024 8:09 AM EDT [facility] NRBC Absolute 0.00 <0.10 K/mcL LAB HEMETOLOGY METHOD 09/27/2024 8:09 AM EDT [facility] Blood Venous blood specimen / Unknown Venipuncture / Unknown 09/27/2024 7:12 AM EDT 09/27/2024 8:01 AM EDT Erickson Melton MD LAB BLOOD ORDERABLES Final Result [facility] [address] [place] [address], documented in this encounter Visit Diagnoses Diagnosis Anemia, unspecified Hypothyroidism, unspecified Other seizures (CMS/HCC V24, CMS/HCC V28) documented in this encounter Additional Health Concerns Infection Onset Date Last Indicated Resolved Time C. difficile Comment:Tested (+) at [facility]; started on PO ABT 09/29/24 NL 09/29/2024 [...] documented as of this encounter Care Teams Window Shade Cutter Relationship Specialty Start Date End Date Erickson Melton MD [address] [place] [id number] PCP - General Internal Medicine 09/13/24 documented as of this encounter
--- OUTSIDE RECORDS SUMMARY | 2025-06-05 20:00 | XMS_ITS | Clinical Summary ---
Author Organization Unknown Care Team Providers Care Education General Manager Name Role Phone PO , WANDA Unavailable Unavailable CHELSEA PT, MARIEL Unavailable Unavailable SARIAH CRAWLEY LPN, HEBER Unavailable Héctor KOENIG RN, MILADIS Unavailable Unavailable Payers Payer Name Policy Type Policy Number Effective Date Expira tion Date MEDICARE - FORMERLY [facility]/[place] - [facility] [id number] Problems Condition Name Condition Details Condition Category Status Onset Date Resolution Date Last Treatment Date Treating Clinician Comments OTHER SEIZURES Active 03-26 00:00: 00 Allergies, Adverse Reactions, Alerts Allergy [...] 12-08 00:00: 00 04-05 23:59 :00 No [id number] 1 capsule DAILY 1 capsule DAILY (route: oral) Alternate Route: G-TUBE. Med Classific ation: Gastroint estinal Therapy Agents Pain Relief (acetaminop hen) 160 mg/5 mL oral liquid 12-08 00:00: 00 04-05 23:59 :00 No [id number] 640 mg EVERY 4 HOURS 640 mg EVERY 4 HOURS (route: oral) Alternate Route: G-TUBE. Med Classific ation: Analgesic , Anti-infl ammatory or Antipyret ic Aspirin Childrens 81 mg chewable tablet 12-08 00:00: 00 04-05 23:59 :00 No [id number] 1 tablet DAILY 1 tablet DAILY (route: oral) Alternate Route: G-TUBE. Med Classific ation: Hematolog ical Agents Cetaphil Moisturizin g lotion 12-08 00:00: 00 04-05 23:59 :00 No [id number] 1 mL NEEDED 1 mL NEEDED (route: topical) Med Classific ation: Dermatolo gical Dulcolax (magnesium hydroxide) 400 mg/5 mL oral suspension 12-08 00:00: 00 04-05 23:59 :00 No [id number] 30 mL DAILY 30 mL DAILY (route: oral) Alternate Route: G-TUBE. Med Classific ation: Gastroint estinal Therapy Agents Fleet Enema 19 gram-7 gram/118 mL 12-08 00:00: 00 04-05 23:59 :00 No [id number] 19 g DAILY 19 g DAILY (route: rectal) Med Classific ation: Gastroint estinal Therapy Agents fluticasone propionate 50 mcg/actuati on nasal spray,suspe nsion 12-08 00:00: 00 03-03 23:59 :00 No [id number] 1 spray DAILY 1 spray DAILY (route: nasal) Med Classific ation: Respirato ry Therapy Agents gabapentin 100 mg capsule 12-08 00:00: 00 03-03 23:59 :00 No [id number] 1 capsule BEDTIME 1 capsule BEDTIME (route: oral) Alternate Route: G-TUBE. Med Classific ation: Central Nervous System Agents ipratropium 0.5 mg-albutero l 2.5 mg/2.5 mL solution for nebulizatio n 12-08 00:00: 00 04-05 23:59 :00 No [id number] 3 mg NEEDED 3 mg NEEDED (route: inhalation ) Med Classific ation: Respirato ry Therapy Agents levothyroxi ne 137 mcg tablet 12-08 00:00: 04-05 23:59 :00 No [id number] 1 tablet DAILY 1 tablet DAILY (route: oral) Alternate Route: G-TUBE. Med Classific ation: Endocrine midodrine 5 mg tablet 12-08 00:00: 00 04-05 23:59 :00 No [id number] 2 tablet 3 TIMES DAILY 2 tablet 3 TIMES DAILY (route: oral) Alternate Route: G-TUBE. Med Classific ation: Cardiovas cular Therapy Agents oxcarbazepi ne 150 mg tablet 12-08 00:00: 00 03-03 23:59 :00 No [id number] 1 tablet 2 TIMES DAILY 1 tablet 2 TIMES DAILY (route: oral) Alternate Route: G-TUBE. Med Classific ation: Central Nervous System Agents Proctosol HC 2.5 % topical cream perineal applicator 12-08 00:00: 00 04-05 23:59 :00 No [id number] 1 applica tor 2 TIMES DAILY 1 applicator 2 TIMES DAILY (route: topical) Med Classific ation: Anorectal Preparati ons vancomycin 50 mg/mL oral solution 12-08 00:00: 00 01-31 00:00 :00 No [id number] 2.5 mL EVERY OTHER DAY 2.5 mL EVERY OTHER DAY (route: oral) Alternate Route: G-TUBE. Med Classific ation: Anti-Infe ctive Agents zinc oxide topical ointment 04 00:00: 00 04-05 23:59 :00 No [id number] Per instruc tions NEEDED Per instructio ns NEEDED (route: topical) Med Classific ation: Dermatolo gical Clotrimazol e AF 1 % topical cream 814 00:00: 00 04-05 23:59 :00 No [id number] Per instruc tions 2 TIMES DAILY Per instructio ns 2 TIMES DAILY (route: topical) Med Classific ation: Dermatolo gical oxcarbazepi ne 150 mg tablet 03-03 00:00: 00 04-05 23:59 :00 No [id number] 75 mg 2 TIMES DAILY 75 mg 2 TIMES DAILY (route: oral) Med Classific ation: Central Nervous System Agents trazodone 50 mg tablet 03-03 00:00: 00 04-05 23:59 :00 No [id number] 1 tablet 2 TIMES DAILY 1 tablet 2 TIMES DAILY (route: oral) Med Classific ation: Central Nervous System Agents Immunizations Ordered Immunization Name Filled Immunization Name Date Status Comments Refusal Reason INFLUENZA, TIV (INACTIVATED) 2024-04-13 00:00:00 Vital Signs Vital Name Observation Time Observation Value Commen ts Temperature 2025-04-18 15:34:00.000 97.9 [degF] Temperature 2025-04-14 09:30:00.000 97.3 [degF] Temperature 2025-04-12 10:39:00.000 96.8 [degF] Temperature 2025-04-08 12:34:00.000 97.6 [degF] BMI (%) 2025-04-08 17:56:51.000 26 kg/m2 Height 2025-04-08 17:50:39.000 47 [in_us] Pulse 2025-04-18 15:34:00.000 62 /min Pulse 2025-04-14 09:30:00.000 66 /min Pulse 2025-04-12 10:39:00.000 62 /min Pulse 2025-04-11 13:38:00.000 64 /min Pulse 2025-04-08 12:34:00.000 62 /min O2 Saturation (%) 2025-04-08 12:34:00.000 96 % Respirations 2025-04-18 15:34:00.000 20 /min Respirations 2025-04-14 09:30:00.000 20 /min Respirations 2025-04-12 10:39:00.000 20 /min Respirations 2025-04-11 10:10:00.000 20 /min Respirations 2025-04-08 12:34:00.000 16 /min Weight (lbs) 2025-04-08 17:56:51.000 84 [lb_av] Systolic Blood Pressure 2025-04-18 15:34:00.000 94 mm[ Hg] Systolic Blood Pressure 2025-04-14 09:30:00.000 96 mm[ Hg] Systolic Blood Pressure 2025-04-11 10:07:00.000 96 mm[ Hg] Systolic Blood Pressure 2025-04-08 12:34:00.000 90 mm[ Hg] Diastolic Blood Pressure 2025-04-18 15:34:00.000 60 mm [...] MAINTAIN SITUATIONAL AWARENESS AND WILL NOTIFY CLINICAL DIRECTOR SALES SUPPORT AND PHYSICIAN/PROVIDER WITH ANY CHANGE IN CONDITION. [code = SKILLED NURSE TO PERFORM ENVIRONMENTAL SAFETY RISK ASSESSMENT AND FALL RISK ASSESSMENT AND PROVIDE INSTRUCTION TO IMPLEMENT ENVIRONMENTAL SAFETY AND FALL PREVENTION STRATEGIES THROUGHOUT THE CERTIFICATION PERIOD. SKILLED NURSE WILL MAINTAIN SITUATIONAL AWARENESS AND WILL NOTIFY CLINICAL DIRECTOR SALES SUPPORT AND PHYSICIAN/PROVIDER WITH ANY CHANGE IN CONDITION.] [...] CARE.] Future Scheduled Test SKILLED NU RSE TO [...] INCONTINENCE.] Future Scheduled Test SKILLED NU RSE MAY [...] AND INFECTION CONTROL MEASURES.] Future Scheduled Test PHYSICAL T HERAPIST TO EVALUATE PATIENT FOR STRENGTHENING [code = PHYSICAL THERAPIST TO EVALUATE PATIENT FOR STRENGTHENING] Future Scheduled Test SKILLED NU RSE TO INSTRUCT PATIENT/CAREGIVER ON PREVENTION OF SEPSIS, AND SIGNS AND SYMPTOMS OF SEPSIS TO REPORT. [code = SKILLED NURSE TO INSTRUCT PATIENT/CAREGIVER ON PREVENTION OF SEPSIS, AND SIGNS AND SYMPTOMS OF SEPSIS TO REPORT.] Future Scheduled Test PHYSICAL T HERAPY TO EVALUATE AND TREAT. PHYSICAL THERAPY EVALUATION PERFORMED. NO ADDITIONAL VISITS REQUIRED. PHYSICAL THERAPY EVALUATION ONLY (04/12/25) PATIENT IS A 65 YO FEMALE WITH PHYSICAL THERAPY REFERRAL AFTER REHOSPITALIZATION ON 04/06/25 DUE TO SEIZURE IN HALF-WAY, WHILE IN HOSPITAL ER PATIENT DEMO TONIC CLONIC SEIZURE. PMH: ANEMIA, DYSPHAGIA, CHRONIC RESPIRATORY FAILURE, DOWN SYNDROME, HYPOTHYROID, HYPOTENSION, HLD, CATARACTS BL, ASP PNA, DEMENTIA W/ BEHAVIORAL DISTURBANCES, HYPOXIA, SEIZURES, C-DIFF, G TUBE LEAKING. FALL HISTORY: NO RECENT FALLS REPORTED PLOF: PATIENT LIVES IN HALF-WAY WITH 24/7 CARE. PATIENT MOSTLY WHEELCHAIR BOUND AND ABLE TO AMB SHORT DISTANCES WITH HANDHELD ASSIST SINCE 12/18/24. CLOF: PATIENT IS ALERT, NON-VERBAL FOR MOST OF VISIT. VISIT COMPLETED WITH [facility] HALF-WAY STAFF MEMBER PRESENT. PATIENT HAS A 24/7 DRIP G-TUBE. DME: W/C, HOSPITAL BED, BED SIDE COMMODE, SHOWER CHAIR, GRAB BARS PATIENT UNABLE TO SELF PROPEL WHEELCHAIR. UNABLE TO FORMALLY MANUAL MUSCLE TEST PATIENT UNABLE TO FOLLOW COMMANDS. HOWEVER BLES DEMO BILAT LE ROM WFL AND BILAT LE STRENGTH AT LEAST 3+/5. PATIENT RESISTANT TO FOLLOWING THIS THERAPIST'S COMMANDS WITH ATTEMPTING TRANSFERS. CG [facility] HALF-WAY STAFF REPORTS PATIENT RELUCTANT TO FOLLOW COMMANDS FROM UNKNOWN PERSONS AND THAT PATIENT HAS BEHAVIORAL ISSUES. WITH ENCOURAGEMENT FROM [facility], PATIENT COMPLETED SIT ->STAND FROM WHEELCHAIR WITH OPERATING ROOM SURGICAL TECHNOLOGIST. PATIENT AMB 50' WITH OPERATING ROOM SURGICAL TECHNOLOGIST ASSIST FROM [facility] AND THIS THERAPIST TRANSPORTING G-TUB DRIP STAND. PATIENT DEMO BILAT LE REDUCED STEP LENGTHS, DECREASED HIP AND KNEE EXT WITH STANCE PHASE, FOOT FLAT AT INITIAL CONTACT, 0 FALLS/LOB. DISCUSSED WITH NANCIE MCGEE THAT PATIENT'S DECREASED COGNTION RESULT IN INABILITY TO ATTEMPT FWW USAGE. NANCIE MCGEE REPORTS THAT HALF-WAY STAFF ASSISTS PATIENT WITH AMB AT LEAST 1X DAY. DUE TO PATIENT AT MAX FUNCTIONAL LEVEL, REQUIRES ASSIST WITH ALL TRANSFERS AND AMB DUE TO DECREASED COGNITION RESULTING IN INABILITY TO USE FWW, RECENT SEIZURES, AND 24/7 G-TUBE DRIP, PHYSICAL THERAPY EVAL ONLY. PATIENT INFORMED ABOUT PHYSICAL THERAPY EVAL ONLY HOWEVER MADE NO VERBAL RESPONSE. [facility] PLASTER BLOCK LAYER VERBALIZED SUPPORT FOR PT EVAL ONLY. THIS THERAPIST CALLED AND SPOKE WITH [facility] DIRECTOR ([phone]) INFORMING ABOUT PHYSICAL THERAPY EVAL ONLY WITH NATHEN VERBALIZING AGREEMENT. NOTIFIED ABOUT PATIENT STATUS AND EVAL ONLY. [code = PHYSICAL THERAPY TO EVALUATE AND TREAT. PHYSICAL THERAPY EVALUATION PERFORMED. NO ADDITIONAL VISITS REQUIRED. PHYSICAL THERAPY EVALUATION ONLY (04/12/25) PATIENT IS A 65 YO FEMALE WITH PHYSICAL THERAPY REFERRAL AFTER REHOSPITALIZATION ON 04/06/25 DUE TO SEIZURE IN HALF-WAY, WHILE IN HOSPITAL ER PATIENT DEMO TONIC CLONIC SEIZURE. PMH: ANEMIA, DYSPHAGIA, CHRONIC RESPIRATORY FAILURE, DOWN SYNDROME, HYPOTHYROID, HYPOTENSION, HLD, CATARACTS BL, ASP PNA, DEMENTIA W/ BEHAVIORAL DISTURBANCES, HYPOXIA, SEIZURES, C-DIFF, G TUBE LEAKING. FALL HISTORY: NO RECENT FALLS REPORTED PLOF: PATIENT LIVES IN HALF-WAY WITH 24/7 CARE. PATIENT MOSTLY WHEELCHAIR BOUND AND ABLE TO AMB SHORT DISTANCES WITH HANDHELD ASSIST SINCE 12/18/24. CLOF: PATIENT IS ALERT, NON-VERBAL FOR MOST OF VISIT. VISIT COMPLETED WITH [facility] HALF-WAY STAFF MEMBER PRESENT. PATIENT HAS A 24/7 DRIP G-TUBE. DME: W/C, HOSPITAL BED, BED SIDE COMMODE, SHOWER CHAIR, GRAB BARS PATIENT UNABLE TO SELF PROPEL WHEELCHAIR. UNABLE TO FORMALLY MANUAL MUSCLE TEST PATIENT UNABLE TO FOLLOW COMMANDS. HOWEVER BLES DEMO BILAT LE ROM WFL AND BILAT LE STRENGTH AT LEAST 3+/5. PATIENT RESISTANT TO FOLLOWING THIS THERAPIST'S COMMANDS WITH ATTEMPTING TRANSFERS. CG [facility] HALF-WAY STAFF REPORTS PATIENT RELUCTANT TO FOLLOW COMMANDS FROM UNKNOWN PERSONS AND THAT PATIENT HAS BEHAVIORAL ISSUES. WITH ENCOURAGEMENT FROM [facility], PATIENT COMPLETED SIT ->STAND FROM WHEELCHAIR WITH OPERATING ROOM SURGICAL TECHNOLOGIST. PATIENT AMB 50' WITH OPERATING ROOM SURGICAL TECHNOLOGIST ASSIST FROM [facility] AND THIS THERAPIST TRANSPORTING G-TUB DRIP STAND. PATIENT DEMO BILAT LE REDUCED STEP LENGTHS, DECREASED HIP AND KNEE EXT WITH STANCE PHASE, FOOT FLAT AT INITIAL CONTACT, 0 FALLS/LOB. DISCUSSED WITH NANCIE MCGEE THAT PATIENT'S DECREASED COGNTION RESULT IN INABILITY TO ATTEMPT FWW USAGE. NANCIE MCGEE REPORTS THAT HALF-WAY STAFF ASSISTS PATIENT WITH AMB AT LEAST 1X DAY. DUE TO PATIENT AT MAX FUNCTIONAL LEVEL, REQUIRES ASSIST WITH ALL TRANSFERS AND AMB DUE TO DECREASED COGNITION RESULTING IN INABILITY TO USE FWW, RECENT SEIZURES, AND 24/7 G-TUBE DRIP, PHYSICAL THERAPY EVAL ONLY. PATIENT INFORMED ABOUT PHYSICAL THERAPY EVAL ONLY HOWEVER MADE NO VERBAL RESPONSE. [facility] PLASTER BLOCK LAYER VERBALIZED SUPPORT FOR PT EVAL ONLY. THIS THERAPIST CALLED AND SPOKE WITH [facility] DIRECTOR ([phone]) INFORMING ABOUT PHYSICAL THERAPY EVAL ONLY WITH NATHEN VERBALIZING AGREEMENT. NOTIFIED ABOUT PATIENT STATUS AND EVAL ONLY.] Goal Patient Goal - STAY OUT OF H OSPITAL Goal Provider Goal - A PLAN OF CARE WILL BE ESTABLISHED THAT MEETS PATIENT'S NURSING HOME NEEDS AND INCLUDES PATIENT GOAL FOR [...] THE EPISODE. Goal Provider Goal - PATIENT / CAREGIVER WILL VERBALIZE UNDERSTANDING OF BARRIERS PREVENTING PROPER CARE AND DEMONSTRATE MEASURES TO ELIMINATE THOSE BARRIERS DURING THIS EPISODE. Goal Provider Goal - CHANGES IN PSYCHOSOCIAL [...] THE EPISODE. Goal Provider Goal - PATIENT / CAREGIVER WILL VERBALIZE UNDERSTANDING OF EFFECTS OF URINARY INCONTINENCE BY THE END OF THE CERTIFICATION PERIOD. Goal Provider Goal - URINE SPECIMEN WILL BE OBTAINED PRN FOR SIGNS AND SYMPTOMS OF UTI AND RESULTS WILL BE REPORTED TO PHYSICIAN THROUGHOUT THE CERTIFICATION PERIOD. Goal Provider Goal - PATIENT/CAREGIVER WILL DEMONSTRATE ABILITY TO ADMINSITER ENTERAL NUTRITION, VERBALIZE METHODS TO PREVENT ASPIRATION AND PERFORM SITE CARE. PATIENT/CAREGIVER WILL REPORT COMPLICATIONS TO SKILLED NURSE /PHYSICIAN. Goal Provider Goal - PATIENT/CAREGIVER WILL VERBALIZE/DEMONSTRATE [...] PHYSICIAN S SIGNATURE. Goal Provider Goal - PATIENT WILL BE FREE FROM INFECTION AND PATIENT/CAREGIVER WILL VERBALIZE UNDERSTANDING OF SIGNS AND SYMPTOMS AND METHODS TO PREVENT SEPSIS BY END OF THE EPISODE. Goal Provider Goal - NONE Progress Notes Progress Notes <paragraph>[Visit Date: 2024 by HEBER CRAWLEY LPN]:</paragraph><paragraph>SNV 04/18</paragraph><paragraph></paragraph><paragraph>ABNORMAL VITALS: WITHIN ESTABLISHED PARAMETERS, UTO O2SAT </paragraph><paragraph></paragraph><paragraph>FALLS: N </paragraph><paragraph></paragraph><paragraph>MEDICATION CHANGES: N</paragraph><paragraph></paragraph><paragraph>OBSERVATION AND ASSESSMENT PROVIDED: PATIENT IS ALERT AND ORIENTED TO SELF, SITTING UP IN A WHEELCHAIR FOLDING SOCKS, IN GOOD SPIRITS AND SMILING UPON SN ARRIVAL. VSS, UTO O2SATS, PT BREATHING COMFORTABLY, PINK SKIN COLOR, CAP FILL <2 SEC, LS CLEAR ON RA, SKIN AROUND GTUBE IS MUCH IMPROVED. PT WITH H/O SKIN IRRITATION AND FUNGAL ISSUES, SITE IMPROVING WITH CONSISTENT CARE. NO RECENT SEIZURE ACTIVITY. TOLERATING MEDS WELL, PT OCCASIONALLY LOOKS OUT OF IT , WONDERING IF SIDE EFFECT, STAFF MONITORING. STOOLS BACK TO LOOSE AND FREQUENT SINCE THIS MORNING, NO UNUSUAL FOUL ODOR. </paragraph><paragraph></paragraph><paragraph>EDUCATION: CONT CURRENT CARE, MONITOR HYDRATION, CALL WITH CONCERNS. </paragraph><paragraph></paragraph><paragraph>INTERVENTIONS NEEDED AT NEXT VISIT: ASSESSMENT </paragraph><paragraph></paragraph><paragraph>COMMUNICATION WITH MD: N.A </paragraph><paragraph></paragraph><paragraph>NEXT MD APPOINTMENT: GI 04/20</paragraph><paragraph></paragraph><paragraph>PT AND CAREGIVER INSTRUCTED TO CALL CINDY MARSHALL WITH ANY QUESTIONS OR CONCERNS AND/OR CHANGES IN CONDITION. </paragraph><paragraph></paragraph><paragraph>HEBER CRAWLEY LPN</paragraph> Encounters Start Date/Time End Date/Time Encounter Type Admission Type Attending Clinicians Care Facility Care Department Encounter ID Discharge Date Discharge Status Discharge Condition Discharge Reason Percent Goals Met 2025-04-08 00:00:00 2025-06-06 00:00:00 Outpatient MILADIS MANRIQUE [facility] [id number] 31.03
== END 2025-04-20 10:56 | disposition home or self-care (01) ==
LOC: HO.HGI 09:58
PROVIDERS: PCP Internal Medicine; Visit Provider Nurse Practitioner Family
DX: Z93.1 Gastrostomy status (principal)
CPT/HCPCS: 99203

== ENCOUNTER → 2025-04-20 09:57 | Outpatient (BNVA) | payer MEDICARE, MEDICAID, SELFPAY | PROVIDERS: PCP Internal Medicine; Visit Provider Nurse Practitioner Family | DX: Z93.1 Gastrostomy status (principal) | CPT/HCPCS: 99202 ==

== ENCOUNTER 2025-05-01 10:06 | Outpatient (AMB) | payer MEDICARE, MEDICAID, SELFPAY ==
--- NOTE | 2025-05-01 10:22 | A.OFFVIS_ITS ---
VS Expanded 05/01/25 11:47 Height 4 ft 3 in Weight 68 lb BMI 18.4 Intake Visit Reasons: Gastrostomy status Allergies Sulfa (Sulfonamide Antibiotics) Allergy (Mild, Verified 04/20/25 10:12) HIVES sulfamethoxazole (From Bactrim) Allergy (Mild, Verified 04/20/25 10:12) HIVES amoxicillin (Amoxicillin) Allergy (Unknown, Verified 04/20/25 10:12) HIVES Clindamycin HCl Allergy (Unknown, Verified 04/20/25 10:12) rash trimethoprim (From Bactrim) Allergy (Unknown, Verified 04/20/25 10:12) HIVES Nutrition Presentation Details: Pt presents for MNT for nutritional feeds via PEG feeding tube assessment Pt in underweight category Pt resides in [facility] and 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 Pt is non verbal. Per staff Pt has minimal physical activity, Pt came to this appt in a wheelchair. Pt is getting her nutrition via PEG due to risk of aspiration pneumonia. Pt is currently on Osmolite 1.5 at 30 ml per hr for 24 hrs/day and 120 ml water flushes 5 times a day. Staff reports Pt was having difficulties tolerating higher feeding rates :up to 38 ml/hr with upset stomach, increase drainage and diarrhea. Staff reports patient is tolerating current rate of 30 ml/hr well, however not gaining weight. Staff reports Pt has 1 loose BM per day, staff reports this is much improved since on 30 ml/hr feeding rate. Pt's wt in Mar 2025 between 78 lbs to 80 lbs , current weight at 68 lbs (BMI at 18.4) Diet Assmnt Details: Currently on Osmolite 1.5 getting 30ml/hr (Total 720 ML/D) continuously via PEG feeding tube and 120 ml water flushes 5 times a day = 1080 staci, 45g prot, no fiber, 1147 ml water (from formula and water flushes) . Per staff , Pt not gaining wait, and not tolerating higher than 30 ml /hr feeding rate due to GI discomfort, diarrhea . Pt will benefit from higher calorie feeding formula. May recommend switching to TWOCAL HN at goal rate of 28 ml/hr for 24 hours (increasing calories by 250) Assessment Recommendation: Nutrition Needs Calculation Weight: 68 lb (31 kg) Estimated kcal needs (kcal/day): 1,300 (Gradually increasing calories by 100-250 from current intake of 1080 to promote weight gain) Estimated protein needs (gm/day): 60 (1-2g/kg BW) Estimated fluid needs (mls/day): 1,000 (33 ml/kg BW) [facility] Medical History G-tube site cellulitis Cutaneous candidiasis Medicare annual wellness visit, subsequent Preoperative cardiovascular examination New onset left bundle branch block (LBBB) Lethargy COVID-19 virus infection Mental status alteration Colon cancer screening Atlantoaxial instability Cholelithiasis Mental and behavioral problem Hypercholesterolemia Vitamin D deficiency Closed right ankle fracture Patent foramen ovale Hypothyroid Megaloblastic anemia CVA (cerebral vascular accident) Cataracts, bilateral Down syndrome Jorge L's disease Surgical History History of surgery Clubfoot Hx of tubal ligation Hx of cataract surgery History of colonoscopy Family History Father No problems noted. Mother Hx of cancer of lung Social History Household Members: Other Household Members Other:: [facility] Housing: Other Housing Other:: [facility] Do you presently have visiting nurse or other home services: No Alcohol intake: never Comment: [facility] staff at bedside Patient Tobacco Use Status: Never used Tobacco e-Cigarette/Vaping Use: Never Used Second Hand Smoke Exposure: No Advance Directives Date on File: 10/26/24 service: No Current occupational status: disabled Cognitive needs: Yes (Wheelchair) Hearing needs: No Vision needs: Yes (Glasses) Assessment & Plan Assessment & Plan (1) Underweight: Code(s): R63.6 - Underweight Category: Medical Plan: Protein Calorie malnutrition, recent weight loss of 10 lbs in a month with BMI at 18.4 (04/2025), not tolerating higher rate than 30 ml/hr continously for 24 hours on current formula (osmolite 1.5) Plan RECOMMEND: Change feeding tube formula to TwoCal HN via PEG feeding tube INITIAL RATE : 25 ml/hour continuously (TOTAL 600 ml/d) and 120 ml water flushes 5 times a day , monitor tolerance to feeding and monitor weight, continue this rate for 2 days (This provides 1187 calories , 50 g prot, 3 g fiber, 1020 ml water (from formula + flushes) ADVANCE RATE on Day 3 to GOAL 28 ml/hr continuously(672 ML/D) and 110 ml water flushes 5 times a day , monitor tolerance to feeding and monitor weight (This will provide 1330 calories, 56 g prot, 3 g fiber, 1020 ml water (from feeding formula and water flushes) l Coding Level of Care Code Nutr Indiv Intake (58605) Diagnoses Underweight R63.6 Time Spent (min) 30
[2025-05-01 11:47] VITALS: BMI 18.4
== END 2025-05-01 11:15 | disposition home or self-care (01) ==
LOC: HO.ENCR 10:07
PROVIDERS: PCP Internal Medicine; Visit Provider Dietitian, Registered
DX: R63.6 Underweight (principal)

== ENCOUNTER → 2025-05-01 10:06 | Outpatient (BNVA) | payer MEDICARE, MEDICAID, SELFPAY | PROVIDERS: PCP Internal Medicine; Visit Provider Dietitian, Registered | DX: R63.6 Underweight (principal); Z93.1 Gastrostomy status; Z71.3 Dietary counseling and surveillance | CPT/HCPCS: 97802 ==

== ENCOUNTER 2025-05-18 14:45 | Outpatient (AMB) | payer MEDICARE, MEDICAID, SELFPAY ==
[2025-05-18 14:50] VITALS: BP 96/50; PULSE 68; BMI 18.5
--- NOTE | 2025-05-18 14:50 | A.OFFVIS_ITS ---
Vital Signs 05/18/25 14:50 Height 4 ft 3 in Weight 68 lb 9 oz BMI 18.5 BP 96/50 L Blood Pressure Location Lt brachial Position Sitting Pulse 68 Pulse Source Pulse Oximeter Intake Visit Reasons: Follow up- BP Dropping Sociology Instructor Required: No Accompanied by: Other Relationship Allergies Sulfa (Sulfonamide Antibiotics) Allergy (Mild, Verified 05/18/25 14:55) HIVES sulfamethoxazole (From Bactrim) Allergy (Mild, Verified 05/18/25 14:55) HIVES amoxicillin (Amoxicillin) Allergy (Unknown, Verified 05/18/25 14:55) HIVES Clindamycin HCl Allergy (Unknown, Verified 05/18/25 14:55) rash trimethoprim (From Bactrim) Allergy (Unknown, Verified 05/18/25 14:55) HIVES Medication List - Last Reconciled 05/18/25 by Theo Noriega NP acetaminophen 640 mg feeding tube Q4H PRN [ADULT BRIEFS/DIAPERS SMALL SIZE As directed] aspirin 81 mg feeding tube DAILY clotrimazole 1% 1 appl topical BID fluticasone propionate 50 mcg/actuation 1 spray intranasal DAILY hydrocortisone 2.5% (Proctosol HC) 1 appl NM BID PRN Lactobacillus acidophilus 10 mg feeding tube TID levothyroxine (Synthroid) 137 mcg feeding tube DAILY@0600 midodrine 10 mg (2 x 5 mg) G-tube TID [NITRILE GLOVES As directed] nystatin 1 appl topical TID oxcarbazepine 150 mg feeding tube BID 30 days trazodone 50 mg feeding tube BID PRN [TwoCal HN goal rate of 28 ml/hr for 24 hrs via feeding pump cartons/cans per day : 2.8 TwoCal HN goal rate of 28 ml/hr for 24 hrs via feeding pump cartons/cans per day : 2.8 /day cans per month : 90 calories per day : 1,330 kcal] zinc oxide 20% 1 appl See Protocol topical DAILY HPI Comments Details: This is a 65-year-old female patient coming in for preop cardiac risk stratification for upcoming dental workup. Patient with Down syndrome who comes from a care home and is here with a mathematics teacher who provided with all the information. The patient occasionally in the odds appropriately to questions. Traffic I Manager states that patient has been in in the hospital multiple times for aspiration pneumonia and since then patient's healthcare proxy decided for a G- tube placement. Traffic I Manager states that patient has had a lot of complications with G-tube malfunction and patient pulling at it. Traffic I Manager also states that patient has been in and out of the hospital multiple times for seizures most recently week of April where they had to replace the GI tube due to malfunction again. Patient with a history of chronic hypotension for which patient takes midodrine. Patient otherwise with no cardiac symptoms. [facility] Medical History G-tube site cellulitis Cutaneous candidiasis Medicare annual wellness visit, subsequent Preoperative cardiovascular examination New onset left bundle branch block (LBBB) Lethargy COVID-19 virus infection Mental status alteration Colon cancer screening Atlantoaxial instability Cholelithiasis Mental and behavioral problem Hypercholesterolemia Vitamin D deficiency Closed right ankle fracture Patent foramen ovale Hypothyroid Megaloblastic anemia CVA (cerebral vascular accident) Cataracts, bilateral Down syndrome Jorge L's disease Surgical History History of surgery Clubfoot Hx of tubal ligation Hx of cataract surgery History of colonoscopy Family History Father No problems noted. Mother Hx of cancer of lung Social History Household Members: Other Household Members Other:: care home Housing: Other Housing Other:: care home Do you presently have visiting nurse or other home services: No Alcohol intake: never Comment: care home staff at bedside Patient Tobacco Use Status: Never used Tobacco e-Cigarette/Vaping Use: Never Used Second Hand Smoke Exposure: No Advance Directives Date on File: 10/26/24 service: No Current occupational status: disabled Cognitive needs: Yes (Wheelchair) Hearing needs: No Vision needs: Yes (Glasses) Review of Systems Const Denies daytime sleepiness, Denies difficulty sleeping, Denies snoring, Denies stops breathing during sleep and Denies weakness Card Denies chest pain, Denies rapid heart rate, Denies irregular heart rhythm, Denies claudication, Denies leg edema, Denies lightheadedness, Denies palpitations, Denies dyspnea, Denies dyspnea on exertion, Denies orthopnea, Denies paroxysmal nocturnal dyspnea and Denies slow heart rate Resp Denies cough, Denies dyspnea, Denies dyspnea on exertion and Denies snoring GI Reports no additional complaints, Denies hematochezia, Denies change in stool character and Denies dyspepsia Musc Denies abnormal gait, Denies muscle weakness and Denies numbness Neuro Denies abnormal gait, Denies numbness and Denies weakness Endo Denies palpitations Physical Exam Vital Signs: Last Vital Signs Pulse 68 05/18/25 14:50 BP 96/50 L 05/18/25 14:50 BMI result Body Mass Index 18.5 Const General: cooperative, comfortable and no acute distress HEENT Head: Yes normal to inspection Neck Neck: Yes normal visual inspection Chest Chest palpation & inspection: normal inspection of the chest Resp Effort & Inspection: normal respiratory effort Auscultation: clear to auscultation bilaterally Cardio Rate: regular rate Rhythm: regular rhythm Heart sounds: S1 normal heart sound present, S2 normal heart sound present, no click, no gallops, Murmur heart sound present and no rubs Peripheral pulses: Peripheral pulses 2+ throughout GI Palpation (GI): Soft to palpation Skin General skin exam: no rashes or lesions noted Extrem General: Yes normal to inspection Psych Appearance: well kempt Assessment & Plan Assessment & Plan (1) Hypotension: Code(s): I95.9 - Hypotension, unspecified Category: Medical Plan: Chronic hypotension. They brought in her blood pressure log averaging between high 80s to 90s systolically. Patient is on midodrine after which mathematics teacher states that patient's blood pressures does arises in the 1 teens. Patient is asymptomatic with a low blood pressures. Case take her also notes that since change in the formula 4 patient's G-tube, patient has been feeling much better overall. Clinically stable and euvolemic. Patient does not occasionally appropriately to yes and no questions. Not in any acute distress. No complaints of cardiac symptoms from mathematics teacher. Blood pressure today is low normal. (2) LBBB (left bundle branch block): Code(s): I44.7 - Left bundle-branch block, unspecified Category: Medical Plan: Not new. EKG revealed from the hospital visit where it is unchanged. (3) Preop cardiovascular exam: Code(s): Z01.810 - Encounter for preprocedural cardiovascular examination Plan: Patient is planning for undergoing a dental surgery under general anesthesia. We will get an echo and plan to quit an addendum to this note depending on findings of the echo. This note was generated using voice recognition software. While every effort has been made to ensure accuracy and proper executive sous chef, there may be occasional errors that could affect the content or meaning of the described symptoms. Orders: Orders CA echo transthoracic complete Today I44.7 - Left bundle-branch block, unspecified, Z01.810 - Encounter for preprocedural cardiovascular examination Coding Level of Care Code Est Pt Level 4 (76413) Complex EM visit Add On G2211 Diagnoses Hypotension I95.9 LBBB (left bundle branch block) I44.7 Preop cardiovascular exam Z01.810 Time Spent (min) 32 Comment Time spent in reviewing the chart, test results, assessment, counseling and documentation.
--- OUTSIDE RECORDS SUMMARY | 2025-05-18 18:03 | XMS_ITS | Encounter Summary ---
Author Organization [facility] Address [address] [place] [address] Care Team Providers Care Brim Pouncer Machine Operator Name Role Phone Erickson Melton MD Primary Care Provider +1- [phone] Encounter Details Date Type Department Care Team (Late st Contact Info) Description 11/07/2024 Lab Requisition [facility] - Main Lab [address] [facility] [place] [address] Erickson Melton MD [address] [place] [address] Anemia, unspecified; Pneumonia, unspecified organism Social History [...] your loved ones. For example, child welfare caseworker or elderly care for an older adult? [...] mmol/L LAB CHEMISTRY METHOD 11/08/2024 1:23 PM [facility] Potassium 4.7 3.5 - 5.5 mmol/L LAB CHEMISTRY METHOD 11/08/2024 1:23 PM [facility] Comment:Hemolysis present Chloride 104 96 - 110 mmol/L LAB CHEMISTRY METHOD 11/08/2024 1:23 PM [facility] CO2 30 21 - 32 mmol/L LAB CHEMISTRY METHOD 11/08/2024 1:23 PM [facility] Anion Gap 8 3 - 11 LAB CHEMISTRY METHOD 11/08/2024 1:23 PM [facility] Glucose 80 70 - 100 mg/dL LAB CHEMISTRY METHOD 11/08/2024 1:23 PM [facility] BUN 25 5 - 25 mg/dL LAB CHEMISTRY METHOD 11/08/2024 1:23 PM [facility] Creatinine 0.74 0.50 - 1.10 mg/dL LAB CHEMISTRY METHOD 11/08/2024 1:23 PM [facility] eGFR 90 >=60 mL/min/1. 73m2 LAB CHEMISTRY METHOD 11/08/2024 1:23 PM [facility] Comment:Calculation based on the Chronic Kidney Disease Epidemiology Collaboration (CKD-EPI) equation refit without adjustment for race. BUN/Creatinine Ratio 33.8 LAB CHEMISTRY METHOD 11/08/2024 1:23 PM [facility] Calcium 8.3(L) 8.5 - 10.5 mg/dL LAB CHEMISTRY METHOD 11/08/2024 1:23 PM [facility] Blood Venous blood specimen / Unknown Venipuncture / Unknown 11/08/2024 7:23 AM EDT 11/08/2024 10:27 AM EDT Erickson Melton MD LAB BLOOD ORDERABLES Final Result [facility] [address] [place] [address], * (ABNORMAL) Complete blood count (11/08/2024 7:23 AM EDT) WBC 4.7(L) 4.8 - 10.8 K/mcL LAB HEMETOLOGY METHOD 11/08/2024 11:11 AM EDT [facility] RBC 3.90 3.80 - 4.80 M/mcL LAB HEMETOLOGY METHOD 11/08/2024 11:11 AM [facility] Hemoglobin 13.1 11.5 - 16.0 g/dL LAB HEMETOLOGY METHOD 11/08/2024 11:11 AM [facility] Hematocrit 41.6 35.0 - 47.0 % LAB HEMETOLOGY METHOD 11/08/2024 11:11 AM [facility] MCV 107.5(H) 79.0 - 98.0 FL LAB HEMETOLOGY METHOD 11/08/2024 11:11 AM [facility] MCH 33.9(H) 27.0 - 32.0 pcg LAB HEMETOLOGY METHOD 11/08/2024 11:11 AM [facility] MCHC 31.5(L) 32.0 - 37.0 g/dL LAB HEMETOLOGY METHOD 11/08/2024 11:11 AM [facility] RDW 16.2(H) 11.0 - 15.0 % LAB HEMETOLOGY METHOD 11/08/2024 11:11 AM [facility] Platelets 225 130 - 400 K/mcL LAB HEMETOLOGY METHOD 11/08/2024 11:11 AM [facility] MPV 11.2(H) 7.0 - 11.0 FL LAB HEMETOLOGY METHOD 11/08/2024 11:11 AM EDT [facility] NRBC 0.0 <1.0 % LAB HEMETOLOGY METHOD 11/08/2024 11:11 AM EDT [facility] NRBC Absolute 0.00 <0.10 K/mcL LAB HEMETOLOGY METHOD 11/08/2024 11:11 AM EDT [facility] Blood Venous blood specimen / Unknown Venipuncture / Unknown 11/08/2024 7:23 AM EDT 11/08/2024 10:25 AM EDT Erickson Melton MD LAB BLOOD ORDERABLES Final Result [facility] [address] [place] [address], documented in this encounter Visit Diagnoses Diagnosis [...] documented as of this encounter Care Teams Brim Pouncer Machine Operator Relationship Specialty Start Date End Date Erickson Melton MD [address] [place] [id number] PCP - General Internal Medicine 09/13/24 documented as of this encounter
--- OUTSIDE RECORDS SUMMARY | 2025-05-18 18:03 | XMS_ITS | Clinical Summary ---
Author Organization [address] Address [address] [place] [phone] Phone Care Team Providers Care Global Regulatory Lead Name Role Phone Erickson Melton MD Primary Care Provider +1- [phone] Allergies Active Allergy Reactions Criticality Noted Date Comments Amoxicillin Unknown 09/30/2024 Patient has tolerated cefdinir in 2024 at [facility] and also ceftriaxone at [facility] 2024 Clindamycin Unknown 09/30/2024 Sulfa (Sulfonamide [...] Diagnosed Date Resolved Date Fever 10/01/2024 10/01/2024 Surgical History Surgery Date Site/Laterality Comments TUBAL LIGATION GASTROTOMY CATARACT EXTRACTION Medical History Medical History Date Comments Down syndrome Dementia ([facility] V24, [facility] V28) CVA (cerebral vascular accident) ([facility] V24, [facility] V28) Hypothyroidism Aspiration pneumonia ([facility] V24, [facility] V28) C. difficile colitis Social [...] your loved ones. 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
--- OUTSIDE RECORDS SUMMARY | 2025-05-18 18:03 | XMS_ITS | Encounter Summary ---
Author Organization [facility] Address [address] [place] [address] Care Team Providers Care Salon Coordinator Name Role Phone Erickson Melton MD Primary Care Provider +1- [phone] Encounter Details Date Type Department Care Team (Late st Contact Info) Description 11/21/2024 Lab Requisition [facility] - Main Lab [address] [facility] [place] [address] Erickson Melton MD [address] [place] [address] Pneumonia, unspecified organism; Anemia, unspecified Social History [...] care for your loved ones. For example, childrens club attendant or elderly care for an older adult? [...] mmol/L LAB CHEMISTRY METHOD 11/22/2024 11:50 AM [facility] Potassium 4.0 3.5 - 5.5 mmol/L LAB CHEMISTRY METHOD 11/22/2024 11:50 AM [facility] Chloride 102 96 - 110 mmol/L LAB CHEMISTRY METHOD 11/22/2024 11:50 AM [facility] CO2 26 21 - 32 mmol/L LAB CHEMISTRY METHOD 11/22/2024 11:50 AM [facility] Anion Gap 10 3 - 11 LAB CHEMISTRY METHOD 11/22/2024 11:50 AM [facility] Glucose 88 70 - 100 mg/dL LAB CHEMISTRY METHOD 11/22/2024 11:50 AM [facility] BUN 27(H) 5 - 25 mg/dL LAB CHEMISTRY METHOD 11/22/2024 11:50 AM [facility] Creatinine 0.64 0.50 - 1.10 mg/dL LAB CHEMISTRY METHOD 11/22/2024 11:50 AM [facility] eGFR 99 >=60 mL/min/1. 73m2 LAB CHEMISTRY METHOD 11/22/2024 11:50 AM [facility] Comment:Calculation based on the Chronic Kidney Disease Epidemiology Collaboration (CKD-EPI) equation refit without adjustment for race. BUN/Creatinine Ratio 42.2 LAB CHEMISTRY METHOD 11/22/2024 11:50 AM [facility] Calcium 8.6 8.5 - 10.5 mg/dL LAB CHEMISTRY METHOD 11/22/2024 11:50 AM [facility] Blood Venous blood specimen / Unknown Venipuncture / Unknown 11/22/2024 7:30 AM EDT 11/22/2024 10:25 AM EDT us Erickson Melton MD LAB BLOOD ORDERABLES Final Result [facility] [address] [place] [address], * (ABNORMAL) Complete blood count (11/22/2024 7:30 [...] Final Result [facility] [address] [place] [address], documented in this encounter Visit Diagnoses Diagnosis Pneumonia, unspecified organism Anemia, unspecified documented in this encounter Additional Health Concerns Infection Onset Date Last Indicated Resolved Time C. difficile Rule-Out 01/13/2025 01/13/20252024 4:32 AM EDT C. difficile Rule-Out 01/13/2025 01/13/20252024 10:19 AM EDT C. difficile 01/13/2025 01/13/2025 02/06/2025 7:06 PM EDT documented as of this encounter Care Teams Salon Coordinator Relationship Specialty Start Date End Date Erickson Melton MD [address] [place] [id number] PCP - General Internal Medicine 09/13/24 documented as of this encounter
--- OUTSIDE RECORDS SUMMARY | 2025-05-18 18:03 | XMS_ITS | Encounter Summary ---
Author Organization [facility] Address [address] [place] [address] Care Team Providers Care Plastic Surgery Manager Name Role Phone Erickson Melton MD Primary Care Provider +1- [phone] Encounter Details Date Type Department Care Team (Late st Contact Info) Description 12/05/2024 Lab Requisition [facility] - Main Lab [address] [facility] [place] [address] Erickson Melton MD [address] [place] [address] Pneumonia, unspecified organism; Anemia, unspecified Social History [...] mmol/L LAB CHEMISTRY METHOD 12/06/2024 11:47 AM [facility] Potassium 4.1 3.5 - 5.5 mmol/L LAB CHEMISTRY METHOD 12/06/2024 11:47 AM [facility] Comment:Hemolysis present Chloride 106 96 - 110 mmol/L LAB CHEMISTRY METHOD 12/06/2024 11:47 AM [facility] CO2 26 21 - 32 mmol/L LAB CHEMISTRY METHOD 12/06/2024 11:47 AM [facility] Anion Gap 10 3 - 11 LAB CHEMISTRY METHOD 12/06/2024 11:47 AM [facility] Glucose 73 70 - 100 mg/dL LAB CHEMISTRY METHOD 12/06/2024 11:47 AM [facility] BUN 24 5 - 25 mg/dL LAB CHEMISTRY METHOD 12/06/2024 11:47 AM [facility] Creatinine 0.65 0.50 - 1.10 mg/dL LAB CHEMISTRY METHOD 12/06/2024 11:47 AM [facility] eGFR 98 >=60 mL/min/1. 73m2 LAB CHEMISTRY METHOD 12/06/2024 11:47 AM [facility] Comment:Calculation based on the Chronic Kidney Disease Epidemiology Collaboration (CKD-EPI) equation refit without adjustment for race. BUN/Creatinine Ratio 36.9 LAB CHEMISTRY METHOD 12/06/2024 11:47 AM [facility] Calcium 8.4(L) 8.5 - 10.5 mg/dL LAB CHEMISTRY METHOD 12/06/2024 11:47 AM [facility] Blood Venous blood specimen / Unknown Venipuncture / Unknown 12/06/2024 7:48 AM EDT 12/06/2024 9:05 AM EDT Erickson Melton MD LAB BLOOD ORDERABLES Final Result [facility] [address] [place] [address], * (ABNORMAL) Complete blood count (12/06/2024 7:48 AM EDT) WBC 3.8(L) 4.8 - 10.8 K/mcL LAB HEMETOLOGY METHOD 12/06/2024 11:40 AM EDT [facility] RBC 3.80 3.80 - 4.80 M/mcL LAB HEMETOLOGY METHOD 12/06/2024 11:40 AM EDT [facility] Hemoglobin 12.7 11.5 - 16.0 g/dL LAB HEMETOLOGY METHOD 12/06/2024 11:40 AM T [facility] Hematocrit 40.7 35.0 - 47.0 % LAB HEMETOLOGY METHOD 12/06/2024 11:40 AM EDT [facility] MCV 108.5(H) 79.0 - 98.0 FL LAB HEMETOLOGY METHOD 12/06/2024 11:40 AM [facility] MCH 33.9(H) 27.0 - 32.0 pcg LAB HEMETOLOGY METHOD 12/06/2024 11:40 AM T [facility] MCHC 31.2(L) 32.0 - 37.0 g/dL LAB HEMETOLOGY METHOD 12/06/2024 11:40 AM EDT [facility] RDW 15.0 11.0 - 15.0 % LAB HEMETOLOGY METHOD 12/06/2024 11:40 AM [facility] Platelets 160 130 - 400 K/mcL LAB HEMETOLOGY METHOD 12/06/2024 11:40 AM [facility] MPV 11.2(H) 7.0 - 11.0 FL LAB HEMETOLOGY METHOD 12/06/2024 11:40 AM EDT [facility] NRBC 0.0 <1.0 % LAB HEMETOLOGY METHOD 12/06/2024 11:40 AM EDT [facility] NRBC Absolute 0.00 <0.10 K/mcL LAB HEMETOLOGY METHOD 12/06/2024 11:40 AM EDT [facility] Blood Venous blood specimen / Unknown Venipuncture / Unknown 12/06/2024 7:48 AM EDT 12/06/2024 9:05 AM EDT Erickson Melton MD LAB BLOOD ORDERABLES Final Result [facility] [address] [place] [address], documented in this encounter Visit Diagnoses Diagnosis Pneumonia, unspecified organism Anemia, unspecified documented in this encounter Additional Health Concerns Infection Onset Date Last Indicated Resolved Time C. difficile Rule-Out 01/13/2025 01/13/20252024 4:32 AM EDT C. difficile Rule-Out 01/13/2025 01/13/20252024 10:19 AM EDT C. difficile 01/13/2025 01/13/2025 02/06/2025 7:06 PM EDT documented as of this encounter Care Teams Plastic Surgery Manager Relationship Specialty Start Date End Date Erickson Melton MD [address] [place] [address] PCP - General Internal Medicine 09/13/24 documented as of this encounter
--- OUTSIDE RECORDS SUMMARY | 2025-05-18 18:03 | XMS_ITS | Encounter Summary ---
Author Organization [facility] Address [address] [place] [address] Care Team Providers Care Examination Scorer Name Role Phone Erickson Melton MD Primary Care Provider +1- [phone] Encounter Details Date Type Department Care Team (Late st Contact Info) Description 10/24/2024 Lab Requisition [facility] - Main Lab [address] [facility] [place] [address] Erickson Melton MD [address] [place] [address] Pneumonia, unspecified organism; Anemia, unspecified Social History [...] your loved ones. For example, child support case officer or elderly care for an older [...] mmol/L LAB CHEMISTRY METHOD 10/25/2024 11:17 AM [facility] Potassium 4.2 3.5 - 5.5 mmol/L LAB CHEMISTRY METHOD 10/25/2024 11:17 AM [facility] Chloride 102 96 - 110 mmol/L LAB CHEMISTRY METHOD 10/25/2024 11:17 AM [facility] CO2 31 21 - 32 mmol/L LAB CHEMISTRY METHOD 10/25/2024 11:17 AM [facility] Anion Gap 9 3 - 11 LAB CHEMISTRY METHOD 10/25/2024 11:17 AM [facility] Glucose 98 70 - 100 mg/dL LAB CHEMISTRY METHOD 10/25/2024 11:17 AM [facility] BUN 26(H) 5 - 25 mg/dL LAB CHEMISTRY METHOD 10/25/2024 11:17 AM [facility] Creatinine 0.71 0.50 - 1.10 mg/dL LAB CHEMISTRY METHOD 10/25/2024 11:17 AM [facility] eGFR 95 >=60 mL/min/1. 73m2 LAB CHEMISTRY METHOD 10/25/2024 11:17 AM [facility] Comment:Calculation based on the Chronic Kidney Disease Epidemiology Collaboration (CKD-EPI) equation refit without adjustment for race. BUN/Creatinine Ratio 36.6 LAB CHEMISTRY METHOD 10/25/2024 11:17 AM [facility] Calcium 8.8 8.5 - 10.5 mg/dL LAB CHEMISTRY METHOD 10/25/2024 11:17 AM [facility] Blood Venous blood specimen / Unknown Venipuncture / Unknown 10/25/2024 8:09 AM EDT 10/25/2024 9:05 AM EDT Erickson Melton MD LAB BLOOD ORDERABLES Final Result [facility] [address] [place] [address], * (ABNORMAL) Complete blood count (10/25/2024 8:09 AM EDT) WBC 5.1 4.8 - 10.8 K/mcL LAB HEMETOLOGY METHOD 10/25/2024 10:40 AM EDT [facility] RBC 3.70(L) 3.80 - 4.80 M/mcL LAB HEMETOLOGY METHOD 10/25/2024 10:40 AM EDT [facility] Hemoglobin 12.7 11.5 - 16.0 g/dL LAB HEMETOLOGY METHOD 10/25/2024 10:40 AM [facility] Hematocrit 40.0 35.0 - [...] Result [facility] [address] [place] [address], documented in this encounter Visit Diagnoses Diagnosis [...] documented as of this encounter Care Teams Examination Scorer Relationship Specialty Start Date End Date Erickson Melton MD [address] [place] [id number] PCP - General Internal Medicine 09/13/24 documented as of this encounter
--- OUTSIDE RECORDS SUMMARY | 2025-05-18 18:03 | XMS_ITS | Patient Health Record ---
Author Organization [facility] Address [address] [facility] [address] [place] [address] Care Team Providers Care Flight Test Data Acquisition Technician Name Role Phone Geronimo KEEN, Erickson Primary Care Provider Kiesha Faye Unavailable [phone] Allergies Allergen (clinical drug ingredient) Drug/Non Drug [...] W/U Status Risk Notes Problem Megaloblastic anemia (41048047) Other megaloblastic anemias, 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 Problem Hypothyroidism (48013788) Hypothyroidism, unspecified (E03.9) Active confirmed Problem Autoimmune thyroiditis (15497668) Autoimmune thyroiditis (E06.3) Active confirmed Problem Protein calorie malnutrition (935105715) Unspecified protein-calorie malnutrition (E46) Active confirmed Problem Vitamin D deficiency (83853909) Vitamin D deficiency, unspecified (E55.9) Active confirmed Problem Hyperlipidemia (07336080) Hyperlipidemia, unspecified (E78.5) Active confirmed Problem Encephalopathy (08532483) Encephalopathy, unspecified (G93.40) Active confirmed Problem Sequelae of cerebral infarction (488197010) Unspecified 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) Active confirmed Problem Pressure ulcer of sacral region, stage 1 (L89.151) Active confirmed Problem Acquired clubfoot, 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) Active confirmed Problem Down syndrome (07125879) Down syndrome, unspecified (Q90.9) Active confirmed Problem Oropharyngeal dysphagia (95715115) Dysphagia, oropharyngeal phase (R13.12) Active confirmed Problem Walking disability (060118129) Difficulty in walking, not elsewhere classified (R26.2) Active confirmed Problem Gastrostomy present (653790086) 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 confirmed Problem Dementia (85311712) Unspecified dementia, unspecified severity, without behavioral disturbance, psychotic disturbance, mood disturbance, and anxiety (F03.90) Active confirmed Vital Signs Weight 86.2 lbs 09/30/2024 Weight reflecte d from 09/30/24 on [facility] Encounters Encounter Location Date Provider Diagnosis [address] [place] [address] 09/30/2024 Keisha Segura Pressure ulcer of sacral [...] Medicare [address] [place], [place] [id number] Whitney Lucero Self - patient is the insured Unight (Medicaid) [address] [place], [place] [id number] Whitney Lucero Self - patient is the [...]
--- OUTSIDE RECORDS SUMMARY | 2025-05-18 18:03 | XMS_ITS | Encounter Summary ---
Author Organization [facility] Address [address] [place] [address] Care Team Providers Care Sem Manager Name Role Phone Erickson Melton MD Primary Care Provider +1- [phone] Encounter Details Date Type Department Care Team (Late st Contact Info) Description 12/12/2024 Lab Requisition [facility] - Main Lab 299 [facility] [place] [address] Erickson Melton MD [address] [place] [address] Pneumonia, unspecified organism; Anemia, unspecified Social History [...] your loved ones. For example, early childhood special educator or elderly care for an older adult? [...] documented as of this encounter Care Teams Sem Manager Relationship Specialty Start Date End Date Erickson Melton MD [address] [place] [address] PCP - General Internal Medicine 09/13/24 documented as of this encounter
--- OUTSIDE RECORDS SUMMARY | 2025-05-18 18:03 | XMS_ITS | Encounter Summary ---
Author Organization [facility] Address [address] [place] [address] Care Team Providers Care Pitch Gatherer Name Role Phone Erickson Melton MD Primary Care Provider +1- [phone] Encounter Details Date Type Department Care Team (Late st Contact Info) Description 10/26/2024 Lab Requisition [facility] - Main Lab 299 [facility] [place] [address] Erickson Melton MD [address] [place] [address] Diarrhea, unspecified Social History Tobacco Use Types [...] your loved ones. For example, early childhood assistant or elderly care for an older [...] Final Result [facility] [address] [place] [address], documented in this encounter Visit Diagnoses Diagnosis [...] documented as of this encounter Care Teams Pitch Gatherer Relationship Specialty Start Date End Date Erickson Melton MD [address] [place] [address] PCP - General Internal Medicine 09/13/24 documented as of this encounter
--- OUTSIDE RECORDS SUMMARY | 2025-05-18 18:03 | XMS_ITS | Encounter Summary ---
Author Organization [facility] Address [address] [place] [address] Care Team Providers Care Vice President Of Development Name Role Phone Erickson Melton MD Primary Care Provider +1- [phone] Encounter Details Date Type Department Care Team (Late st Contact Info) Description 10/03/2024 Lab Requisition [facility] - Main Lab 299 [facility] [place] [address] Erickson Melton MD [address] [place] [address] Anemia, unspecified; Hypothyroidism, unspecified; Other seizures (CMS/HCC [...] for your loved ones. For example, child study team director or elderly care for an older [...] documented as of this encounter Care Teams Vice President Of Development Relationship Specialty Start Date End Date Erickson Melton MD [address] [place] [address] PCP - General Internal Medicine 09/13/24 documented as of this encounter
--- OUTSIDE RECORDS SUMMARY | 2025-05-18 18:03 | XMS_ITS | Encounter Summary ---
Author Organization [facility] Address [address] [place] [address] Care Team Providers Care Co Founder And Cto Name Role Phone Erickson Melton MD Primary Care Provider +1- [phone] Encounter Details Date Type Department Care Team (Late st Contact Info) Description 10/17/2024 Lab Requisition [facility] - Main Lab 299 [facility] [place] [address] Erickson Melton MD [address] [place] [address] Pneumonia, unspecified organism; Anemia, unspecified Social History [...] care for your loved ones. For example, vocational childcare teacher or elderly care for an older [...] mmol/L LAB CHEMISTRY METHOD 10/18/2024 11:47 AM [facility] Potassium 4.0 3.5 - 5.5 mmol/L LAB CHEMISTRY METHOD 10/18/2024 11:47 AM [facility] Chloride 99 96 - 110 mmol/L LAB CHEMISTRY METHOD 10/18/2024 11:47 AM [facility] CO2 35(H) 21 - 32 mmol/L LAB CHEMISTRY METHOD 10/18/2024 11:47 AM [facility] Anion Gap 5 3 - 11 LAB CHEMISTRY METHOD 10/18/2024 11:47 AM [facility] Glucose 76 70 - 100 mg/dL LAB CHEMISTRY METHOD 10/18/2024 11:47 AM [facility] BUN 19 5 - 25 mg/dL LAB CHEMISTRY METHOD 10/18/2024 11:47 AM [facility] Creatinine 0.71 0.50 - 1.10 mg/dL LAB CHEMISTRY METHOD 10/18/2024 11:47 AM [facility] eGFR 95 >=60 mL/min/1. 73m2 LAB CHEMISTRY METHOD 10/18/2024 11:47 AM [facility] Comment:Calculation based on the Chronic Kidney Disease Epidemiology Collaboration (CKD-EPI) equation refit without adjustment for race. BUN/Creatinine Ratio 26.8 LAB CHEMISTRY METHOD 10/18/2024 11:47 AM [facility] Calcium 9.4 8.5 - 10.5 mg/dL LAB CHEMISTRY METHOD 10/18/2024 11:47 AM [facility] Blood Venous blood specimen / Unknown Venipuncture / Unknown 10/18/2024 8:38 AM EDT 10/18/2024 10:05 AM EDT us Erikcson Melton MD LAB BLOOD ORDERABLES Final Result [facility] [address] [place] [address], * (ABNORMAL) Complete blood count (10/18/2024 8:38 AM EDT) WBC 2.4(L) 4.8 - 10.8 K/mcL LAB HEMETOLOGY METHOD 10/18/2024 11:22 AM EDT [facility] RBC 3.60(L) 3.80 - 4.80 M/mcL LAB HEMETOLOGY METHOD 10/18/2024 11:22 AM [facility] Hemoglobin 12.3 11.5 - 16.0 g/dL LAB HEMETOLOGY METHOD 10/18/2024 11:22 AM [facility] Hematocrit 39.0 35.0 - 47.0 % LAB HEMETOLOGY METHOD 10/18/2024 11:22 AM [facility] MCV 107.7(H) 79.0 - 98.0 FL LAB HEMETOLOGY METHOD 10/18/2024 11:22 AM [facility] MCH 34.0(H) 27.0 - 32.0 pcg LAB HEMETOLOGY METHOD 10/18/2024 11:22 AM [facility] MCHC 31.5(L) 32.0 - 37.0 g/dL LAB HEMETOLOGY METHOD 10/18/2024 11:22 AM [facility] RDW 17.2(H) 11.0 - 15.0 % LAB HEMETOLOGY METHOD 10/18/2024 11:22 AM [facility] Platelets 238 130 - 400 K/mcL LAB HEMETOLOGY METHOD 10/18/2024 11:22 AM [facility] MPV 10.8 7.0 - 11.0 FL LAB HEMETOLOGY METHOD 10/18/2024 11:22 AM EDT [facility] NRBC 0.0 <1.0 % LAB HEMETOLOGY METHOD 10/18/2024 11:22 AM EDT [facility] NRBC Absolute 0.00 <0.10 K/mcL LAB HEMETOLOGY METHOD 10/18/2024 11:22 AM EDT [facility] Blood Venous blood specimen / Unknown Venipuncture / Unknown 10/18/2024 8:38 AM EDT 10/18/2024 10:05 AM EDT Erickson Melton MD LAB BLOOD ORDERABLES Final Result [facility] [address] [place] [address], documented in this encounter Visit Diagnoses Diagnosis [...] documented as of this encounter Care Teams Co Founder And Cto Relationship Specialty Start Date End Date Erickson Melton MD [address] [place] [address] PCP - General Internal Medicine 09/13/24 documented as of this encounter
--- OUTSIDE RECORDS SUMMARY | 2025-05-18 18:03 | XMS_ITS | Encounter Summary ---
Author Organization [facility] Address [address] [place] [address] Care Team Providers Care Reservations And Ticketing Agent Name Role Phone Erickson Melton MD Primary Care Provider +1- [phone] Encounter Details Date Type Department Care Team (Late st Contact Info) Description 10/31/2024 Lab Requisition [facility] - Main Lab [address] [facility] [place] [address] Erickson Melton MD [address] [place] [address] Pneumonia, unspecified organism; Anemia, unspecified Social History [...] ones. For example, child and family services worker or elderly care for an older [...] mmol/L LAB CHEMISTRY METHOD 11/01/2024 11:26 AM [facility] Potassium 4.1 3.5 - 5.5 mmol/L LAB CHEMISTRY METHOD 11/01/2024 11:26 AM [facility] Chloride 102 96 - 110 mmol/L LAB CHEMISTRY METHOD 11/01/2024 11:26 AM [facility] CO2 34(H) 21 - 32 mmol/L LAB CHEMISTRY METHOD 11/01/2024 11:26 AM [facility] Anion Gap 5 3 - 11 LAB CHEMISTRY METHOD 11/01/2024 11:26 AM [facility] Glucose 86 70 - 100 mg/dL LAB CHEMISTRY METHOD 11/01/2024 11:26 AM [facility] BUN 23 5 - 25 mg/dL LAB CHEMISTRY METHOD 11/01/2024 11:26 AM [facility] Creatinine 0.74 0.50 - 1.10 mg/dL LAB CHEMISTRY METHOD 11/01/2024 11:26 AM [facility] eGFR 90 >=60 mL/min/1. 73m2 LAB CHEMISTRY METHOD 11/01/2024 11:26 AM [facility] Comment:Calculation based on the Chronic Kidney Disease Epidemiology Collaboration (CKD-EPI) equation refit without adjustment for race. BUN/Creatinine Ratio 31.1 LAB CHEMISTRY METHOD 11/01/2024 11:26 AM [facility] Calcium 8.6 8.5 - 10.5 mg/dL LAB CHEMISTRY METHOD 11/01/2024 11:26 AM [facility] Blood Venous blood specimen / Unknown Venipuncture / Unknown 11/01/2024 6:41 AM EDT 11/01/2024 10:40 AM EDT us Erickson Melton MD LAB BLOOD ORDERABLES Final Result [facility] [address] [place] [address], * (ABNORMAL) Complete blood count (11/01/2024 6:41 AM EDT) WBC 9.2 4.8 - 10.8 K/mcL LAB HEMETOLOGY METHOD 11/01/2024 10:57 AM EDT [facility] RBC 3.90 3.80 - 4.80 M/mcL LAB HEMETOLOGY METHOD 11/01/2024 10:57 AM EDT [facility] Hemoglobin 13.5 11.5 - 16.0 g/dL LAB HEMETOLOGY METHOD [facility] Hematocrit 43.3 35.0 - 47.0 % LAB HEMETOLOGY METHOD 11/01/2024 [facility] MCV 110.7(H) 79.0 - 98.0 FL LAB HEMETOLOGY METHOD 11/01/2024 10:57 AM EDT [facility] MCH 34.5(H) 27.0 - 32.0 pcg LAB HEMETOLOGY METHOD 11/01/2024 10:57 AM EDT [facility] MCHC 31.2(L) 32.0 - 37.0 g/dL LAB HEMETOLOGY METHOD 11/01/2024 10:57 AM EDT [facility] RDW 16.9(H) 11.0 - 15.0 % LAB HEMETOLOGY METHOD 11/01/2024 10:57 AM EDT [facility] Platelets 210 130 - 400 K/mcL LAB HEMETOLOGY METHOD 11/01[facility]2024 [facility] MPV 11.2(H) 7.0 - 11.0 FL LAB HEMETOLOGY METHOD 11/01/2024 10:57 AM EDT [facility] NRBC 0.0 <1.0 % LAB HEMETOLOGY METHOD 11/01/2024 10:57 AM EDT [facility] NRBC Absolute 0.00 <0.10 K/mcL LAB HEMETOLOGY METHOD 11/01/2024 10:57 AM EDT [facility] Blood Venous blood specimen / Unknown Venipuncture / Unknown 11/01/2024 6:41 AM EDT 11/01/2024 10:36 AM EDT us Erickson Melton MD LAB BLOOD ORDERABLES Final Result [facility] [address] [place] [address], documented in this encounter Visit Diagnoses Diagnosis [...] documented as of this encounter Care Teams Reservations And Ticketing Agent Relationship Specialty Start Date End Date Erickson Melton MD [address] [place] [id number] PCP - General Internal Medicine 09/13/24 documented as of this encounter
--- OUTSIDE RECORDS SUMMARY | 2025-05-18 18:03 | XMS_ITS | Encounter Summary ---
Author Organization [facility] Address [address] [place] [address] Care Team Providers Care Design Draftsman Name Role Phone Erickson Melton MD Primary Care Provider +1- [phone] Encounter Details Date Type Department Care Team (Late st Contact Info) Description 11/28/2024 Lab Requisition [facility] - Main Lab 299 [facility] [place] [address] Erickson Melton MD [address] [place] [address] Pneumonia, unspecified organism; Anemia, unspecified Social History [...] for your loved ones. For example, child day care teacher or elderly care for an [...] Final Result [facility] [address] [place] [address], * (ABNORMAL) Complete blood count (11/29/2024 5:44 AM EDT) WBC 3.9(L) 4.8 - 10.8 K/mcL LAB HEMETOLOGY METHOD 11/29/2024 6:54 AM EDT [facility] RBC 3.90 3.80 - 4.80 M/mcL LAB HEMETOLOGY METHOD 11/29/2024 6:54 AM EDT [facility] Hemoglobin 13.1 11.5 - 16.0 g/dL LAB HEMETOLOGY METHOD 11/29/2024 6:54 AM EDT [facility] Hematocrit 41.5 35.0 - 47.0 % LAB HEMETOLOGY METHOD 11/29/2024 6:54 AM EDT [facility] MCV 106.1(H) 79.0 - 98.0 FL LAB HEMETOLOGY METHOD 11/29/2024 6:54 AM EDT [facility] MCH 33.5(H) 27.0 - 32.0 pcg LAB HEMETOLOGY METHOD 11/29/2024 6:54 AM EDT [facility] MCHC 31.6(L) 32.0 - 37.0 g/dL LAB HEMETOLOGY METHOD 11/29/2024 6:54 AM EDT [facility] RDW 15.2(H) 11.0 - 15.0 % LAB HEMETOLOGY METHOD 11/29/2024 6:54 AM EDT [facility] Platelets 200 130 - 400 K/mcL LAB HEMETOLOGY METHOD 11/29/2024 6:54 AM EDT [facility] MPV 10.8 7.0 - 11.0 FL LAB HEMETOLOGY METHOD 11/29/2024 6:54 AM EDT [facility] NRBC 0.0 <1.0 % LAB HEMETOLOGY METHOD 11/29/2024 6:54 AM EDT [facility] NRBC Absolute 0.00 <0.10 K/mcL LAB HEMETOLOGY METHOD 11/29/2024 6:54 AM EDT [facility] Blood Venous blood specimen / Unknown Venipuncture / Unknown 11/29/2024 5:44 AM EDT 11/29/2024 6:27 AM EDT Erickson Melton MD LAB BLOOD ORDERABLES Final Result [facility] [address] [place] [address], documented in this encounter Visit Diagnoses Diagnosis Pneumonia, unspecified organism Anemia, unspecified documented in this encounter Additional Health Concerns Infection Onset Date Last Indicated Resolved Time C. difficile Rule-Out 01/13/2025 01/13/20252024 4:32 AM EDT C. difficile Rule-Out 01/13/2025 01/13/20252024 10:19 AM EDT C. difficile 01/13/2025 01/13/2025 02/06/2025 7:06 PM EDT documented as of this encounter Care Teams Design Draftsman Relationship Specialty Start Date End Date Erickson Melton MD [address] [place] [id number] PCP - General Internal Medicine 09/13/24 documented as of this encounter
--- OUTSIDE RECORDS SUMMARY | 2025-05-18 18:03 | XMS_ITS | Encounter Summary ---
Author Organization [facility] Address [address] [place] [address] Care Team Providers Care Transit Vehicle Inspector Name Role Phone Erickson Melton MD Primary Care Provider +1- [phone] Encounter Details Date Type Department Care Team (Late st Contact Info) Description 11/14/2024 Lab Requisition [facility] - Main Lab 299 [facility] [place] [address] Erickson Melton MD [address] [place] [address] Pneumonia, unspecified organism; Anemia, unspecified Social History [...] your loved ones. For example, child development consultant or elderly care for an older adult? [...] mmol/L LAB CHEMISTRY METHOD 11/15/2024 11:23 AM [facility] Potassium 4.3 3.5 - 5.5 mmol/L LAB CHEMISTRY METHOD 11/15/2024 11:23 AM [facility] Chloride 103 96 - 110 mmol/L LAB CHEMISTRY METHOD 11/15/2024 11:23 AM [facility] CO2 30 21 - 32 mmol/L LAB CHEMISTRY METHOD 11/15/2024 11:23 AM [facility] Anion Gap 5 3 - 11 LAB CHEMISTRY METHOD 11/15/2024 11:23 AM [facility] Glucose 68(L) 70 - 100 mg/dL LAB CHEMISTRY METHOD 11/15/2024 11:23 AM [facility] BUN 26(H) 5 - 25 mg/dL LAB CHEMISTRY METHOD 11/15/2024 11:23 AM [facility] Creatinine 0.66 0.50 - 1.10 mg/dL LAB CHEMISTRY METHOD 11/15/2024 11:23 AM [facility] eGFR 98 >=60 mL/min/1. 73m2 LAB CHEMISTRY METHOD 11/15/2024 11:23 AM [facility] Comment:Calculation based on the Chronic Kidney Disease Epidemiology Collaboration (CKD-EPI) equation refit without adjustment for race. BUN/Creatinine Ratio 39.4 LAB CHEMISTRY METHOD 11/15/2024 11:23 AM [facility] Calcium 8.8 8.5 - 10.5 mg/dL LAB CHEMISTRY METHOD 11/15/2024 11:23 AM [facility] Blood Venous blood specimen / Unknown Venipuncture / Unknown 11/15/2024 8:04 AM EDT 11/15/2024 10:29 AM EDT Erickson Melton MD LAB BLOOD ORDERABLES Final Result [facility] [address] [place] [address], * (ABNORMAL) Complete blood count (11/15/2024 8:04 AM EDT) WBC 5.4 4.8 - 10.8 K/mcL LAB HEMETOLOGY METHOD 11/15/2024 11:00 AM EDT [facility] RBC 3.80 3.80 - 4.80 M/mcL LAB HEMETOLOGY METHOD [facility] Hemoglobin 13.0 11.5 - 16.0 g/dL LAB HEMETOLOGY METHOD 11/15/2024 11:00 AM [facility] Hematocrit 40.9 35.0 - 47.0 % LAB HEMETOLOGY METHOD 11/15/2024 11:00 AM [facility] MCV 107.3(H) 79.0 - 98.0 FL LAB HEMETOLOGY METHOD 11/15/2024 11:00 AM [facility] MCH 34.1(H) 27.0 - 32.0 pcg LAB HEMETOLOGY METHOD 11/15/2024 11:00 AM [facility] MCHC 31.8(L) 32.0 - 37.0 g/dL LAB HEMETOLOGY METHOD 11/15/2024 11:00 AM [facility] RDW 16.0(H) 11.0 - 15.0 % LAB HEMETOLOGY METHOD 11/15/2024 11:00 AM [facility] Platelets 225 130 - 400 K/mcL LAB HEMETOLOGY METHOD 11/15/2024 11:00 AM [facility] MPV 11.1(H) 7.0 - 11.0 FL LAB HEMETOLOGY METHOD 11/15/2024 11:00 AM EDT [facility] NRBC 0.0 <1.0 % LAB HEMETOLOGY METHOD 11/15/2024 11:00 AM EDT [facility] NRBC Absolute 0.00 <0.10 K/mcL LAB HEMETOLOGY METHOD 11/15/2024 11:00 AM EDT [facility] Blood Venous blood specimen / Unknown Venipuncture / Unknown 11/15/2024 8:04 AM EDT 11/15/2024 10:29 AM EDT Erickson Melton MD LAB BLOOD ORDERABLES Final Result [facility] [address] [place] [address], documented in this encounter Visit Diagnoses Diagnosis [...] documented as of this encounter Care Teams Transit Vehicle Inspector Relationship Specialty Start Date End Date Erickson Melton MD [address] [place] [id number] PCP - General Internal Medicine 09/13/24 documented as of this encounter
--- OUTSIDE RECORDS SUMMARY | 2025-05-18 18:03 | XMS_ITS | Encounter Summary ---
Author Organization [facility] Address [address] [place] [address] Care Team Providers Care Receiver Name Role Phone Erickson Melton MD Primary Care Provider +1- [phone] Encounter Details Date Type Department Care Team (Late st Contact Info) Description 10/27/2024 Lab Requisition [facility] - Main Lab 299 [facility] [place] [address] Erickson Melton MD [address] [place] [address] Enterocolitis due to Clostridium difficile, not specified [...] mmol/L LAB CHEMISTRY METHOD 10/27/2024 9:33 AM [facility] Potassium 4.3 3.5 - 5.5 mmol/L LAB CHEMISTRY METHOD 10/27/2024 9:33 AM [facility] Comment:Hemolysis present Chloride 105 96 - 110 mmol/L LAB CHEMISTRY METHOD 10/27/2024 9:33 AM [facility] CO2 29 21 - 32 mmol/L LAB CHEMISTRY METHOD 10/27/2024 9:33 AM [facility] Anion Gap 6 3 - 11 LAB CHEMISTRY METHOD 10/27/2024 9:33 AM [facility] Glucose 82 70 - 100 mg/dL LAB CHEMISTRY METHOD 10/27/2024 9:33 AM [facility] BUN 33(H) 5 - 25 mg/dL LAB CHEMISTRY METHOD 10/27/2024 9:33 AM [facility] Creatinine 0.68 0.50 - 1.10 mg/dL LAB CHEMISTRY METHOD 10/27/2024 9:33 AM [facility] eGFR 97 >=60 mL/min/1. 73m2 LAB CHEMISTRY METHOD 10/27/2024 9:33 AM [facility] Comment:Calculation based on the Chronic Kidney Disease Epidemiology Collaboration (CKD-EPI) equation refit without adjustment for race. BUN/Creatinine Ratio 48.5 LAB CHEMISTRY METHOD 10/27/2024 9:33 AM [facility] Calcium 8.7 8.5 - 10.5 mg/dL LAB CHEMISTRY METHOD 10/27/2024 9:33 AM [facility] Blood Venous blood specimen / Unknown Venipuncture / Unknown 10/27/2024 6:46 AM EDT 10/27/2024 7:59 AM EDT Erickson Melton MD LAB BLOOD ORDERABLES Final Result [facility] [address] [place] [address], * (ABNORMAL) Complete blood count (10/27/2024 6:46 AM EDT) WBC 10.5 4.8 - 10.8 K/mcL LAB HEMETOLOGY METHOD 10/27/2024 8:39 AM EDT [facility] RBC 3.80 3.80 - 4.80 M/mcL LAB HEMETOLOGY METHOD 10/27/2024 8:39 AM [facility] Hemoglobin 13.0 11.5 - 16.0 g/dL LAB HEMETOLOGY METHOD 10/27/2024 8:39 AM [facility] Hematocrit 42.2 35.0 - 47.0 % LAB HEMETOLOGY METHOD 10/27/2024 8:39 AM [facility] MCV 111.9(H) 79.0 - 98.0 FL LAB HEMETOLOGY METHOD 10/27/2024 8:39 AM [facility] MCH 34.5(H) 27.0 - 32.0 pcg LAB HEMETOLOGY METHOD 10/27/2024 8:39 AM [facility] MCHC 30.8(L) 32.0 - 37.0 g/dL LAB HEMETOLOGY METHOD 10/27/2024 8:39 AM [facility] RDW 17.3(H) 11.0 - 15.0 % LAB HEMETOLOGY METHOD 10/27/2024 8:39 AM [facility] Platelets 181 130 - 400 [...] Result [facility] [address] [place] [address], documented in this encounter Visit Diagnoses Diagnosis [...] documented as of this encounter Care Teams Receiver Relationship Specialty Start Date End Date Erickson Melton MD [address] [place] [id number] PCP - General Internal Medicine 09/13/24 documented as of this encounter
--- OUTSIDE RECORDS SUMMARY | 2025-05-18 18:04 | XMS_ITS | Encounter Summary ---
Author Organization [facility] Address [address] [place] [address] Care Team Providers Care Rough Rice Grader Name Role Phone Erickson Melton MD Primary Care Provider +1- [phone] Encounter Details Date Type Department Care Team (Late st Contact Info) Description 09/19/2024 Lab Requisition [facility] - Main Lab 299 [facility] [place] [address] Erickson Melton MD [address] [place] [address] Other seizures (CMS/HCC V24, CMS/HCC V28); Hypothyroidism, [...] (ABNORMAL) Thyroxine total (09/19/2024 9:04 AM EDT) [facility] T4, Total 2.8(L) 4.5 - 10.9 mcg/dL LAB CHEMISTRY METHOD 09/19/2024 1:40 PM EDT [facility] Blood Venous blood specimen / Unknown Venipuncture / Unknown 09/19/2024 9:04 AM EDT 09/19/2024 11:18 AM EDT Erickson Melton MD LAB BLOOD ORDERABLES Final Result [facility] [address] [place] [address], * (ABNORMAL) Comprehensive metabolic panel (09/19/2024 9:04 AM EDT) [facility] Sodium 139 133 - 145 mmol/L LAB CHEMISTRY METHOD 09/19/2024 1:38 PM [facility] Potassium 4.2 3.5 - 5.5 mmol/L LAB CHEMISTRY METHOD 09/19/2024 1:38 PM [facility] Chloride 97 96 - 110 mmol/L LAB CHEMISTRY METHOD 09/19/2024 1:38 PM T [facility] CO2 38(H) 21 - 32 mmol/L LAB CHEMISTRY METHOD 09/19/2024 1:38 PM [facility] Anion Gap 4 3 - 11 LAB CHEMISTRY METHOD 09/19/2024 1:38 PM [facility] Glucose 98 70 - 100 mg/dL LAB CHEMISTRY METHOD 09/19/2024 1:38 PM [facility] BUN 27(H) 5 - 25 mg/dL LAB CHEMISTRY METHOD 09/19/2024 1:38 PM T [facility] Creatinine 0.67 0.50 - 1.10 mg/dL LAB CHEMISTRY METHOD 09/19/2024 1:38 PM T [facility] eGFR 98 >=60 mL/min/1. 73m2 LAB CHEMISTRY METHOD 09/19/2024 1:38 PM [facility] Comment:Calculation based on the Chronic Kidney Disease Epidemiology Collaboration (CKD-EPI) equation refit without adjustment for race. BUN/Creatinine Ratio 40.3 LAB CHEMISTRY METHOD 09/19/2024 1:38 PM T [facility] Calcium 8.9 8.5 - 10.5 mg/dL LAB CHEMISTRY METHOD 09/19/2024 1:38 PM [facility] AST (SGOT) 20 10 - 42 unit/L LAB CHEMISTRY METHOD 09/19/2024 1:38 PM [facility] ALT (SGPT) 32 10 - 60 unit/L LAB CHEMISTRY METHOD 09/19/2024 1:38 PM [facility] Alkaline Phosphatase 144(H) 42 - 121 unit/L LAB CHEMISTRY METHOD 09/19/2024 1:38 PM [facility] Total Protein 6.6 6.0 - 8.0 g/dL LAB CHEMISTRY METHOD 09/19/2024 1:38 PM [facility] Albumin 2.6(L) 3.2 - 5.0 g/dL LAB CHEMISTRY METHOD 09/19/2024 1:38 PM [facility] Total Bilirubin 0.2 0.0 - 1.4 mg/dL LAB CHEMISTRY METHOD 09/19/2024 1:38 PM [facility] Blood Venous blood specimen / Unknown Venipuncture / Unknown 09/19/2024 9:04 AM EDT 09/19/2024 11:18 AM EDT us Erickson Melton MD LAB BLOOD ORDERABLES Final Result [facility] [address] [place] [address], * (ABNORMAL) Complete blood count (09/19/2024 9:04 AM EDT) [facility] WBC 7.4 4.8 - 10.8 K/mcL LAB HEMETOLOGY METHOD 09/19/2024 11:51 AM EDT [facility] RBC 3.30(L) 3.80 - 4.80 M/mcL LAB HEMETOLOGY METHOD 09/19/2024 11:51 AM EDT [facility] Hemoglobin 11.0(L) 11.5 - 16.0 g/dL LAB HEMETOLOGY METHOD 09/19/2024 11:51 AM [facility] Hematocrit 35.4 35.0 - 47.0 % LAB HEMETOLOGY METHOD 09/19/2024 11:51 AM [facility] MCV 108.3(H) 79.0 - 98.0 FL LAB HEMETOLOGY METHOD 09/19/2024 11:51 AM [facility] MCH 33.6(H) 27.0 - 32.0 pcg LAB HEMETOLOGY METHOD 09/19/2024 11:51 AM [facility] MCHC 31.1(L) 32.0 - 37.0 g/dL LAB HEMETOLOGY METHOD 09/19/2024 11:51 AM [facility] RDW 14.5 11.0 - 15.0 % LAB HEMETOLOGY METHOD 09/19/2024 11:51 AM [facility] Platelets 291 130 - 400 K/mcL LAB HEMETOLOGY METHOD 09/19/2024 11:51 AM [facility] MPV 11.1(H) 7.0 - 11.0 FL LAB HEMETOLOGY METHOD 09/19/2024 11:51 AM EDT [facility] NRBC 0.0 <1.0 % LAB HEMETOLOGY METHOD 09/19/2024 11:51 AM EDT [facility] NRBC Absolute 0.00 <0.10 K/mcL LAB HEMETOLOGY METHOD 09/19/2024 11:51 AM EDT [facility] Blood Venous blood specimen / Unknown Venipuncture / Unknown 09/19/2024 9:04 AM EDT 09/19/2024 11:18 AM EDT us Erickson Melton MD LAB BLOOD ORDERABLES Final Result [facility] [address] [place] [address], documented in this encounter Visit Diagnoses Diagnosis [...] documented as of this encounter Care Teams Rough Rice Grader Relationship Specialty Start Date End Date Erickson Melton MD [address] [place] [address] PCP - General Internal Medicine 09/13/24 documented as of this encounter
--- OUTSIDE RECORDS SUMMARY | 2025-05-18 18:04 | XMS_ITS | Encounter Summary ---
Author Organization [facility] Address [address] [place] [address] Care Team Providers Care Information Technology Program Manager Name Role Phone Erickson Melton MD Primary Care Provider +1- [phone] Encounter Details Date Type Department Care Team (Late st Contact Info) Description 09/19/2024 Lab Requisition [facility] - Main Lab [address] [facility] [place] [address] Erickson Melton MD [address] [place] [address] Anemia, unspecified; Hypothyroidism, unspecified; Other seizures (CMS/HCC [...] mmol/L LAB CHEMISTRY METHOD 09/20/2024 11:27 AM [facility] Potassium 4.0 3.5 - 5.5 mmol/L LAB CHEMISTRY METHOD 09/20/2024 11:27 AM [facility] Chloride 97 96 - 110 mmol/L LAB CHEMISTRY METHOD 09/20/2024 11:27 AM [facility] CO2 36(H) 21 - 32 mmol/L LAB CHEMISTRY METHOD 09/20/2024 11:27 AM [facility] Anion Gap 6 3 - 11 LAB CHEMISTRY METHOD 09/20/2024 11:27 AM [facility] Glucose 121(H) 70 - 100 mg/dL LAB CHEMISTRY METHOD 09/20/2024 11:27 AM [facility] BUN 27(H) 5 - 25 mg/dL LAB CHEMISTRY METHOD 09/20/2024 11:27 AM [facility] Creatinine 0.71 0.50 - 1.10 mg/dL LAB CHEMISTRY METHOD 09/20/2024 11:27 AM [facility] eGFR 95 >=60 mL/min/1. 73m2 LAB CHEMISTRY METHOD 09/20/2024 11:27 AM [facility] Comment:Calculation based on the Chronic Kidney Disease Epidemiology Collaboration (CKD-EPI) equation refit without adjustment for race. BUN/Creatinine Ratio 38.0 LAB CHEMISTRY METHOD 09/20/2024 11:27 AM [facility] Calcium 8.4(L) 8.5 - 10.5 mg/dL LAB CHEMISTRY METHOD 09/20/2024 11:27 AM [facility] Blood Venous blood specimen / Unknown Venipuncture / Unknown 09/20/2024 7:49 AM EDT 09/20/2024 10:04 AM EDT Erickson Melton MD LAB BLOOD ORDERABLES Final Result [facility] [address] [place] [address], * (ABNORMAL) Complete blood count (09/20/2024 7:49 AM EDT) WBC 6.1 4.8 - 10.8 K/mcL LAB HEMETOLOGY METHOD 09/20/2024 10:34 AM EDT [facility] RBC 3.30(L) 3.80 - 4.80 M/mcL LAB HEMETOLOGY METHOD 09/20/2024 10:34 AM EDT [facility] Hemoglobin 11.1(L) 11.5 - 16.0 g/dL LAB HEMETOLOGY METHOD 09/20/2024 10:34 AM EDT [facility] Hematocrit 36.2 35.0 - 47.0 % LAB HEMETOLOGY METHOD 09/20/2024 10:34 AM EDT [facility] MCV 109.7(H) 79.0 - 98.0 FL LAB [facility]EMETOLOGY METHOD [facility] MCH 33.6(H) 27.0 - 32.0 pcg LAB HEMETOLOGY METHOD 09/20/2024 10:34 AM EDT [facility] MCHC 30.7(L) 32.0 - 37.0 g/dL LAB HEMETOLOGY METHOD 09/20/2024 10:34 AM EDT [facility] RDW 14.6 11.0 - 15.0 % LAB HEMETOLOGY METHOD 09/20[facility]2024 [facility] Platelets 269 130 - 400 K/mcL LAB HEMETOLOGY METHOD 09/20/2024 10:34 AM EDT [facility] MPV 11.5(H) 7.0 - 11.0 FL LAB HEMETOLOGY METHOD 09/20/2024 10:34 AM EDT [facility] NRBC 0.0 <1.0 % [facility] 09/20/2024 10:34 AM EDT [facility] NRBC Absolute 0.00 <0.10 K/mcL LAB HEMETOLOGY METHOD 09/20/2024 10:34 AM EDT [facility] Blood Venous blood specimen / Unknown Venipuncture / Unknown 09/20/2024 7:49 AM EDT 09/20/2024 10:04 AM EDT Erickson Melton MD LAB BLOOD ORDERABLES Final Result [facility] [address] [place] [address], documented in this encounter Visit Diagnoses Diagnosis [...] as of this encounter Care Teams Information Technology Program Manager Relationship Specialty Start Date End Date Erickson Melton MD [address] [place] [address] PCP - General Internal Medicine 09/13/24 documented as of this encounter
--- OUTSIDE RECORDS SUMMARY | 2025-05-18 18:04 | XMS_ITS | Data Portability ---
Author Organization [facility], [id number] Address [address] [place] [address] Assessment No assessment recorded. Plan of Treatment Reminders Order Date Submit Date Provider Last Modified By Organization Details Last Modified Time Details Appointments None recorded. Lab None recorded. Referral emergency medicine referral 2022 023 [email or web address] [facility] Emergency Room, [address] [place] [address], [phone], 3 08:00:22 Procedures None recorded. Surgeries None recorded. Imaging None recorded. Medication Orders None recorded. Patient TargetsNo targets recorded. Patient Instructions Encounter Date Encounter Id Patient Instructions Last Modified By Organization Details Last Modified Time 10/21/2022 [id number] You have been advised to go now to the Emergency Department for further evaluation. [facility] ER has been advised of your impending arrival. [email or web address] Not available 10/21/2022 17:01:48 Reason for Referral Emergency Medicine Referral for Petechiae of skin New petechial rash bilateral lower extremities (since last night) Referring Physician: Sveta Martin, Urgent Care, Encounter Date: 10/21/2022 Problems Name Problem SNOMED Code Status Onset Date Resolution Date Notes Provider Name and Address Organization Details Recorded Time Feeling agitated 79004375 Active 2022 IRIS PENNY R null, [place] - [facility] 3 15:15:15 Mood disorder 47392968 Active 2022 IRIS PENNY R null, PA - [facility] 3 15:15:25 Aggressive behavior 48703916 Active 2022 LIBORIO FRANCIS R null, PA - [facility] 3 15:15:36 Constipation 84507212 Active 2022 IRIS COUVERTIE R null, PA - [facility] 3 15:15:52 Hypothyroidism 37033791 Active 2022 IRIS COUVERTIE R null, PA - [facility] 3 15:16:05 Allergic rhinitis 30363488 Active 2022 IRIS COUVERTIE R null, PA - [facility] 3 15:16:38 Tinea pedis 0967254 Active 2022 IRIS COUVERTIE R null, PA - [facility] 3 15:16:53 Sleep disorder 25446919 Active 2022 IRIS COUVERTIE R null, PA - [facility] 3 15:18:09 Problem Notes None recorded. Medical Equipment None Reported. Allergies Allergen ID Allergen Name Allergen Category Reaction Reaction Severity Criticality Documentation Date Start Date Code Code System Note Provider Name and Address Organization Details Recorded Time 854314 amoxicill in medicatio n Not available Not available Not available 10/21/2022 723 RxNorm IRIS COUVERTIE R null, PA - [facility] 3 15:04:10 729714 Bactrim medicatio n Not available Not available Not available 10/21/2022 03815 9 RxNorm IRIS COUVERTIE R null, PA - [facility] 3 15:04:17 683559 Substance with sulfonami de structure and antibacte rial mechanism of action (substanc e) medicatio n Not available Not available Not available 10/21/2022 14496 8003 SNOMED IRIS COUVERTIE R null, PA - [facility] 3 15:04:22 684950 clindamyc in Not available Not available Not [...] % 94 % 124.46 cm 24.7 kg/m2 80422.8 6 g 96/69 mm[Hg] [facility] [...] ICD10 Code Diagnosis IMO Codes Diagnosis Note [id number] [place] [address] [address] 10/21/2022 09:24:57 10/21/2022 17:07:10 Petechiae of skin 633527739 R23.3 Health Concerns Section Related Observation LastModified by Organization Detai ls LastModified Time None Recorded Concern Status LastModified by Organization Details LastModified Time None Recorded Advance Directives Directive None Recorded Payers Insurance Date Sequence Insurance Name Policy Number Policy Lu Covered Member ID Lu Member ID Guarantor Name 10/21/2022 1 [place] [employer] Whitney Lucero [id number] Whitney Lucero 10/21/2022 2 [place] [facility] Whitney Lucero [id number] Whitney Lucero Notes Date Note Type Note [...] with hx of Down's syndrome brought by [facility] staff member for evaluation of a red rash to her lower legs noted first last night. The patient is a poor historian and history obtained by [facility] staff member. No hx of fever, runny nose, cough, vomiting, diarrhea. No new medications, soaps or lotions. The rash does not appear to be itchy but seems to be spreading. Sveta Martin MD [address] [place] [address] [place], [address], [place] - [facility] 10/21/2022 17:07:58 OBGyn Episode No OBEpisode recorded.
--- OUTSIDE RECORDS SUMMARY | 2025-05-18 18:04 | XMS_ITS | Encounter Summary ---
Author Organization [facility] Address [address] [place] [address] Care Team Providers Care Industrial Psychology Teacher Name Role Phone Erickson Melton MD Primary Care Provider +1- [phone] Encounter Details Date Type Department Care Team (Late st Contact Info) Description 09/13/2024 Lab Requisition [facility] - Main Lab 299 [facility] [place] [address] Erickson Melton MD [address] [place] [address] Anemia, unspecified; Hypothyroidism, unspecified; Other seizures (CMS/HCC [...] - 35 ug/mL 09/16/2024 12:[address] [facility] Comment: If applicable, any drug confirmation testing reported here was developed and the performance characteristics determined by [facility]. This confirmation testing has not been cleared or approved by the FDA. The laboratory is regulated under CLIA as qualified to perform high-complexity testing. This test is used for patient testing purposes. It should not be regarded as investigational or for research. Test performed at [facility], [address] , [place] [address] Yessy Coultre MD, PhD - [facility] Blood Venous blood specimen / Unknown Venipuncture / Unknown 09/13/2024 8:54 AM EDT 09/13/2024 10:34 AM EDT Erickson Melton MD LAB BLOOD ORDERABLES Final Result [facility] [address] [place] [address] * (ABNORMAL) Thyroid stimulating hormone (09/13/2024 8:54 AM EDT) TSH 7.10(H) 0.40 - 4.00 mcIU/mL LAB CHEMISTRY METHOD 09/13/2024 1:18 PM EDT [facility] Blood Venous blood specimen / Unknown Venipuncture / Unknown 09/13/2024 8:54 AM EDT 09/13/2024 10:34 AM EDT us Erickson Melton MD LAB BLOOD ORDERABLES Final Result [facility] [address] [place] [address], * (ABNORMAL) Comprehensive metabolic panel (09/13/2024 8:54 AM EDT) Sodium 142 133 - 145 mmol/L LAB CHEMISTRY METHOD 09/13/2024 1:41 PM [facility] Potassium 4.3 3.5 - 5.5 mmol/L LAB CHEMISTRY METHOD 09/13/2024 1:41 PM [facility] Chloride 99 96 - 110 mmol/L LAB CHEMISTRY METHOD 09/13/2024 1:41 PM [facility] CO2 36(H) 21 - 32 mmol/L LAB CHEMISTRY METHOD 09/13/2024 1:41 PM [facility] Comment:Results verified by repeat testing Anion Gap 7 3 - 11 LAB CHEMISTRY METHOD 09/13/2024 1:41 PM [facility] Glucose 105(H) 70 - 100 mg/dL LAB CHEMISTRY METHOD 09/13/2024 1:41 PM [facility] BUN 23 5 - 25 mg/dL LAB CHEMISTRY METHOD 09/13/2024 1:41 PM [facility] Creatinine 0.77 0.50 - 1.10 mg/dL LAB CHEMISTRY METHOD 09/13/2024 1:41 PM [facility] eGFR 86 >=60 mL/min/1. 73m2 LAB CHEMISTRY METHOD 09/13/2024 1:41 PM [facility] Comment:Calculation based on the Chronic Kidney Disease Epidemiology Collaboration (CKD-EPI) equation refit without adjustment for race. BUN/Creatinine Ratio 29.9 LAB CHEMISTRY METHOD 09/13/2024 1:41 PM [facility] Calcium 8.9 8.5 - 10.5 mg/dL LAB CHEMISTRY METHOD 09/13/2024 1:41 PM T [facility] AST (SGOT) 25 10 - 42 unit/L LAB CHEMISTRY METHOD 09/13/2024 1:41 PM [facility] ALT (SGPT) 24 10 - 60 unit/L LAB CHEMISTRY METHOD 09/13/2024 1:41 PM T [facility] Alkaline Phosphatase 118 42 - 121 unit/L LAB CHEMISTRY METHOD 09/13/2024 1:41 PM EDT [facility] Total Protein 6.9 6.0 - 8.0 g/dL LAB CHEMISTRY METHOD 09/13/2024 1:41 PM [facility] Albumin 2.8(L) 3.2 - 5.0 g/dL LAB CHEMISTRY METHOD 09/13/2024 1:41 PM [facility] Total Bilirubin 0.2 0.0 - 1.4 mg/dL LAB CHEMISTRY METHOD 09/13/2024 1:41 PM [facility] Blood Venous blood specimen / Unknown Venipuncture / Unknown 09/13/2024 8:54 AM EDT 09/13/2024 10:34 AM EDT Erickson Melton MD LAB BLOOD ORDERABLES Final Result [facility] [address] [place] [address], * (ABNORMAL) Complete blood count (09/13/2024 8:54 AM EDT) WBC 7.6 4.8 - 10.8 K/mcL LAB HEMETOLOGY METHOD 09/13/2024 12:06 PM [facility] RBC 3.60(L) 3.80 - 4.80 M/mcL LAB HEMETOLOGY METHOD 09/13/2024 12:06 PM [facility] Hemoglobin 12.1 11.5 - 16.0 g/dL LAB HEMETOLOGY METHOD 09/13/2024 12:06 PM EDT [facility] Hematocrit 38.2 35.0 - 47.0 % LAB HEMETOLOGY METHOD 09/13/2024 12:06 PM [facility] MCV 107.0(H) 79.0 - 98.0 FL LAB HEMETOLOGY METHOD 09/13[facility]2024 12[facility] MCH 33.9(H) 27.0 - 32.0 pcg LAB HEMETOLOGY METHOD 09/13/2024 12:06 PM [facility] MCHC 31.7(L) 32.0 - 37.0 g/dL LAB HEMETOLOGY METHOD 09/13/2024 12:06 PM [facility] RDW 14.0 11.0 - 15.0 % LAB HEMETOLOGY METHOD 09/13/2024 12:06 PM [facility] Platelets 327 130 - 400 K/mcL LAB HEMETOLOGY METHOD 09/13/2024 12:06 PM [facility] MPV 11.0 7.0 - 11.0 FL LAB HEMETOLOGY METHOD 09/13/2024 12:06 PM [facility] NRBC 0.0 <1.0 % LAB HEMETOLOGY METHOD 09/13/2024 12:06 PM [facility] NRBC Absolute 0.00 <0.10 K/mcL LAB HEMETOLOGY METHOD 09/13/2024 12:06 PM [facility] Blood Venous blood specimen / Unknown Venipuncture / Unknown 09/13/2024 8:54 AM EDT 09/13/2024 10:34 AM EDT us Erickson Melton MD LAB BLOOD ORDERABLES Final Result [facility] [address] [place] [address], documented in this encounter Visit Diagnoses Diagnosis [...] documented as of this encounter Care Teams Industrial Psychology Teacher Relationship Specialty Start Date End Date Erickson Melton MD [address] [place] [address] PCP - General Internal Medicine 09/13/24 documented as of this encounter
--- OUTSIDE RECORDS SUMMARY | 2025-05-18 18:04 | XMS_ITS | Encounter Summary ---
Author Organization [facility] Address [address] [place] [address] Care Team Providers Care Product Development Director Name Role Phone Erickson Melton MD Primary Care Provider +1- [phone] Encounter Details Date Type Department Care Team (Late st Contact Info) Description 09/26/2024 Lab Requisition [facility] - Main Lab 299 [facility] [place] [address] Erickson Melton MD [address] [place] [address] Anemia, unspecified; Hypothyroidism, unspecified; Other seizures (CMS/HCC [...] Result [facility] [address] [place] [address], * (ABNORMAL) Complete blood count (09/27/2024 7:12 AM EDT) WBC 7.2 4.8 - 10.8 K/mcL LAB HEMETOLOGY METHOD 09/27/2024 8:09 AM EDT [facility] RBC 3.20(L) 3.80 - 4.80 M/mcL LAB HEMETOLOGY METHOD 09/27/2024 8:09 AM [facility] Hemoglobin 10.9(L) 11.5 - 16.0 g/dL LAB HEMETOLOGY METHOD 09/27/2024 8:09 AM [facility] Hematocrit 35.3 35.0 - 47.0 % LAB HEMETOLOGY METHOD 09/27/2024 8:09 AM [facility] MCV 109.6(H) 79.0 - 98.0 FL LAB HEMETOLOGY METHOD 09/27/2024 8:09 AM [facility] MCH 33.9(H) 27.0 - 32.0 pcg LAB HEMETOLOGY METHOD 09/27/2024 8:09 AM [facility] MCHC 30.9(L) 32.0 - 37.0 g/dL LAB HEMETOLOGY METHOD 09/27/2024 8:09 AM [facility] RDW 16.3(H) 11.0 - 15.0 % LAB HEMETOLOGY METHOD 09/27/2024 8:09 AM [facility] Platelets 268 130 - [...] Result [facility] [address] [place] [address], documented in this encounter Visit Diagnoses Diagnosis Anemia, unspecified Hypothyroidism, unspecified Other seizures (CMS/HCC V24, CMS/HCC V28) documented in this encounter Additional Health Concerns Infection Onset Date Last Indicated Resolved Time C. difficile Comment:Tested (+) at [facility]; started on PO ABT 09/29/24 NL 09/29/2024 [...] documented as of this encounter Care Teams Product Development Director Relationship Specialty Start Date End Date Erickson Melton MD [address] [place] [id number] PCP - General Internal Medicine 09/13/24 documented as of this encounter
--- OUTSIDE RECORDS SUMMARY | 2025-06-05 19:00 | XMS_ITS | Clinical Summary ---
Author Organization Unknown Care Team Providers [facility] Technicians Name Role Phone PO , WANDA Unavailable Unavailable CHELSEA PT, MARIEL Unavailable Unavailable SARIAH CRAWLEY LPN, HEBER Unavailable Héctor STUBBS RN, BINH Unavailable Unavailable LIBERTY RN, MILADIS Unavailable Unavailable Payers Payer Name Policy Type Policy Number Effective Date Expira tion Date MEDICARE - 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 Med Classific ation: Gastroint estinal Therapy Agents Pain Relief (acetaminop hen) 160 mg/5 mL oral liquid 12-08 00:00: 00 04-05 23:59 :00 No [id number] 640 mg EVERY 4 HOURS 640 mg EVERY 4 HOURS (route: oral) Alternate Route: G-TUBE. Med Classific ation: Analgesic , Anti-infl ammatory or Antipyret ic Aspirin Childrens 81 mg chewable tablet 12-08 00:00: 00 04-05 23:59 :00 No [id number] 1 tablet DAILY 1 tablet DAILY (route: oral) Alternate Route: G-TUBE. Med Classific ation: Hematolog ical Agents Cetaphil Moisturizin g lotion 12-08 00:00: 00 04-05 23:59 :00 No [id number] 1 mL NEEDED 1 mL NEEDED (route: topical) Med Classific ation: Dermatolo gical Dulcolax (magnesium hydroxide) 400 mg/5 mL oral suspension 12-08 00:00: 00 04-05 23:59 :00 No [id number] 30 mL DAILY 30 mL DAILY (route: oral) Alternate Route: G-TUBE. Med Classific ation: Gastroint estinal Therapy Agents Fleet Enema 19 gram-7 gram/118 mL 12-08 00:00: 00 04-05 23:59 :00 No [id number] 19 g DAILY 19 g DAILY (route: rectal) Med Classific ation: Gastroint estinal Therapy Agents fluticasone propionate 50 mcg/actuati on nasal spray,suspe nsion 12-08 00:00: 00 03-03 23:59 :00 No [id number] 1 spray DAILY 1 spray DAILY (route: nasal) Med Classific ation: Respirato ry Therapy Agents gabapentin 100 mg capsule 12-08 00:00: 03-03 23:59 :00 No [id number] 1 capsule BEDTIME 1 capsule BEDTIME (route: oral) Alternate Route: G-TUBE. Med Classific ation: Central Nervous System Agents ipratropium 0.5 mg-albutero l 2.5 mg/2.5 mL solution for nebulizatio n 12-08 00:00: 00 04-05 23:59 :00 No [id number] 3 mg NEEDED 3 mg NEEDED (route: inhalation ) Med Classific ation: Respirato ry Therapy Agents levothyroxi ne 137 mcg tablet 12-08 00:00: 00 04-05 23:59 :00 No [id number] 1 tablet DAILY 1 tablet DAILY (route: oral) Alternate Route: G-TUBE. Med Classific ation: Endocrine midodrine 5 mg tablet 12-08 00:00: 00 04-05 23:59 :00 No [id number] 2 tablet 3 TIMES DAILY 2 tablet 3 TIMES DAILY (route: oral) Alternate Route: G-TUBE. Med Classific ation: Cardiovas cular Therapy Agents oxcarbazepi ne 150 mg tablet 12-08 00:00: 00 03-03 23:59 :00 No [id number] 1 tablet 2 TIMES DAILY 1 tablet 2 TIMES DAILY (route: oral) Alternate Route: G-TUBE. Med Classific ation: Central Nervous System Agents Proctosol HC 2.5 % topical cream perineal applicator 12-08 00:00: 00 04-05 23:59 :00 No [id number] 1 applica tor 2 TIMES DAILY 1 applicator 2 TIMES DAILY (route: topical) Med Classific ation: Anorectal Preparati ons vancomycin 50 mg/mL oral solution 12-08 00:00: 00 01-31 00:00 :00 No [id number] 2.5 mL EVERY OTHER DAY 2.5 mL EVERY OTHER DAY (route: oral) Alternate Route: G-TUBE. Med Classific ation: Anti-Infe ctive Agents zinc oxide topical ointment 02-06 00:00: 00 04-05 23:59 :00 No [id number] Per instruc tions NEEDED Per instructio ns NEEDED (route: topical) Med Classific ation: Dermatolo gical Clotrimazol e AF 1 % topical cream 02-16 00:00: 00 04-05 23:59 :00 No [id number] Per instruc tions 2 TIMES DAILY Per instructio ns 2 TIMES DAILY (route: topical) Med Classific ation: Dermatolo gical oxcarbazepi ne 150 mg tablet 03-03 00:00: 00 04-05 23:59 :00 No [id number] 75 mg 2 TIMES DAILY 75 mg 2 TIMES DAILY (route: oral) Med Classific ation: Central Nervous System Agents trazodone 50 mg tablet 03-03 00:00: 00 04-05 23:59 :00 No [id number] 1 tablet 2 TIMES DAILY 1 tablet 2 TIMES DAILY (route: oral) Med Classific ation: Central Nervous System Agents acetaminoph en 160 mg/5 mL (5 mL) oral solution 2024-07 0-04 00:00: 00 Yes [id number] 650 mg NEEDED 650 mg NEEDED (route: oral) Med Classific ation: Analgesic , Anti-infl ammatory or Antipyret ic aspirin 81 mg tablet 2024-07 0 00:00: 00 Yes [id number] 1 tablet DAILY 1 tablet DAILY (route: oral) Med Classific ation: Hematolog ical Agents levothyroxi ne 137 mcg tablet 2024-07 0 00:00: 00 Yes [id number] 1 tablet DAILY 1 tablet DAILY (route: oral) Med Classific ation: Endocrine midodrine 10 mg tablet 2024-07 0 00:00: 00 Yes [id number] 1 tablet 3 TIMES DAILY 1 tablet 3 TIMES DAILY (route: oral) Med Classific ation: Cardiovas cular Therapy Agents oxcarbazepi ne 150 mg tablet 2024-07 0 00:00: 00 Yes [id number] 1 tablet 2 TIMES DAILY 1 tablet 2 TIMES DAILY (route: oral) Med Classific ation: Central Nervous System Agents trazodone 50 mg tablet 2024-07 00:00: 00 Yes [id number] 1 tablet BEDTIME 1 tablet BEDTIME (route: oral) Med Classific ation: Central Nervous System Agents Lactobacill us acidophilus 500 million cell capsule 12-06 00:00: 00 Yes [id number] 1 capsule 3 TIMES DAILY 1 capsule [...] CVA, RISK FACTORS, AND METHODS TO MANAGE INTERMEDIATE EFFECTS OF CVA. [code = SKILLED NURSE TO INSTRUCT PATIENT/CAREGIVER ON WARNING SIGNS OF CVA, RISK FACTORS, AND METHODS TO MANAGE INTERMEDIATE EFFECTS OF CVA.] Future Scheduled Test SKILLED [...] MAINTAIN SITUATIONAL AWARENESS AND WILL NOTIFY CLINICAL WAREHOUSE FREIGHT HANDLER AND PHYSICIAN/PROVIDER WITH ANY CHANGE IN CONDITION. [code = SKILLED NURSE TO PERFORM ENVIRONMENTAL SAFETY RISK ASSESSMENT AND FALL RISK ASSESSMENT AND PROVIDE INSTRUCTION TO IMPLEMENT ENVIRONMENTAL SAFETY AND FALL PREVENTION STRATEGIES THROUGHOUT THE CERTIFICATION PERIOD. SKILLED NURSE WILL MAINTAIN SITUATIONAL AWARENESS AND WILL NOTIFY CLINICAL WAREHOUSE FREIGHT HANDLER AND PHYSICIAN/PROVIDER WITH ANY CHANGE IN CONDITION.] [...] REHOSPITALIZATION ON 04/06/25 DUE TO SEIZURE IN [facility], WHILE IN HOSPITAL ER PATIENT DEMO TONIC CLONIC SEIZURE. PMH: ANEMIA, DYSPHAGIA, CHRONIC RESPIRATORY FAILURE, DOWN SYNDROME, HYPOTHYROID, HYPOTENSION, HLD, CATARACTS BL, ASP PNA, DEMENTIA W/ BEHAVIORAL DISTURBANCES, HYPOXIA, SEIZURES, C-DIFF, G TUBE LEAKING. FALL HISTORY: NO RECENT FALLS REPORTED PLOF: PATIENT LIVES IN [facility] WITH 24/7 CARE. PATIENT MOSTLY WHEELCHAIR BOUND AND ABLE TO AMB SHORT DISTANCES WITH HANDHELD ASSIST SINCE 12/18/24. CLOF: PATIENT IS ALERT, NON-VERBAL FOR MOST OF VISIT. VISIT COMPLETED WITH [facility] STAFF MEMBER PRESENT. PATIENT HAS A 24/7 DRIP G-TUBE. DME: W/C, HOSPITAL BED, BED SIDE COMMODE, SHOWER CHAIR, GRAB BARS PATIENT UNABLE TO SELF PROPEL WHEELCHAIR. UNABLE TO FORMALLY MANUAL MUSCLE TEST PATIENT UNABLE TO FOLLOW COMMANDS. HOWEVER BLES DEMO BILAT LE ROM WFL AND BILAT LE STRENGTH AT LEAST 3+/5. PATIENT RESISTANT TO FOLLOWING THIS THERAPIST'S COMMANDS WITH ATTEMPTING TRANSFERS. NANCIE MCGEE [facility] STAFF REPORTS PATIENT RELUCTANT TO FOLLOW COMMANDS FROM UNKNOWN PERSONS AND THAT PATIENT HAS BEHAVIORAL ISSUES. WITH ENCOURAGEMENT FROM [facility], PATIENT COMPLETED SIT ->STAND FROM WHEELCHAIR WITH SWEATBAND DECORATING MACHINE OPERATOR. PATIENT AMB 50' WITH SWEATBAND DECORATING MACHINE OPERATOR ASSIST FROM [facility] AND THIS THERAPIST TRANSPORTING G-TUB DRIP STAND. PATIENT DEMO BILAT LE REDUCED STEP LENGTHS, DECREASED HIP AND KNEE EXT WITH STANCE PHASE, FOOT FLAT AT INITIAL CONTACT, 0 FALLS/LOB. DISCUSSED WITH NANCIE MCGEE THAT PATIENT'S DECREASED COGNTION RESULT IN INABILITY TO ATTEMPT FWW USAGE. NANCIE MCGEE REPORTS THAT [facility] STAFF ASSISTS PATIENT WITH AMB AT LEAST 1X DAY. DUE TO PATIENT AT MAX FUNCTIONAL LEVEL, REQUIRES ASSIST WITH ALL TRANSFERS AND AMB DUE TO DECREASED COGNITION RESULTING IN INABILITY TO USE FWW, RECENT SEIZURES, AND 24/7 G-TUBE DRIP, PHYSICAL THERAPY EVAL ONLY. PATIENT INFORMED ABOUT PHYSICAL THERAPY EVAL ONLY HOWEVER MADE NO VERBAL RESPONSE. EVERARDO CEREAL MILLER VERBALIZED SUPPORT FOR PT EVAL ONLY. THIS THERAPIST CALLED AND SPOKE WITH [facility] DIRECTOR ([phone]) INFORMING ABOUT PHYSICAL THERAPY EVAL ONLY WITH NATHEN VERBALIZING AGREEMENT. NOTIFIED ABOUT PATIENT STATUS AND EVAL ONLY. [code = PHYSICAL THERAPY TO EVALUATE AND TREAT. PHYSICAL THERAPY EVALUATION PERFORMED. NO ADDITIONAL VISITS REQUIRED. PHYSICAL THERAPY EVALUATION ONLY (04/12/25) PATIENT IS A 65 YO FEMALE WITH PHYSICAL THERAPY REFERRAL AFTER REHOSPITALIZATION ON 04/06/25 DUE TO SEIZURE IN [facility], WHILE IN HOSPITAL ER PATIENT DEMO TONIC CLONIC SEIZURE. PMH: ANEMIA, DYSPHAGIA, CHRONIC RESPIRATORY FAILURE, DOWN SYNDROME, HYPOTHYROID, HYPOTENSION, HLD, CATARACTS BL, ASP PNA, DEMENTIA W/ BEHAVIORAL DISTURBANCES, HYPOXIA, SEIZURES, C-DIFF, G TUBE LEAKING. FALL HISTORY: NO RECENT FALLS REPORTED PLOF: PATIENT LIVES IN [facility] WITH 24/7 CARE. PATIENT MOSTLY WHEELCHAIR BOUND AND ABLE TO AMB SHORT DISTANCES WITH HANDHELD ASSIST SINCE 12/18/24. CLOF: PATIENT IS ALERT, NON-VERBAL FOR MOST OF VISIT. VISIT COMPLETED WITH [facility] STAFF MEMBER PRESENT. PATIENT HAS A 24/7 DRIP G-TUBE. DME: W/C, HOSPITAL BED, BED SIDE COMMODE, SHOWER CHAIR, GRAB BARS PATIENT UNABLE TO SELF PROPEL WHEELCHAIR. UNABLE TO FORMALLY MANUAL MUSCLE TEST PATIENT UNABLE TO FOLLOW COMMANDS. HOWEVER BLES DEMO BILAT LE ROM WFL AND BILAT LE STRENGTH AT LEAST 3+/5. PATIENT RESISTANT TO FOLLOWING THIS THERAPIST'S COMMANDS WITH ATTEMPTING TRANSFERS. CG [facility] STAFF REPORTS PATIENT RELUCTANT TO FOLLOW COMMANDS FROM UNKNOWN PERSONS AND THAT PATIENT HAS BEHAVIORAL ISSUES. WITH ENCOURAGEMENT FROM [facility], PATIENT COMPLETED SIT ->STAND FROM WHEELCHAIR WITH SWEATBAND DECORATING MACHINE OPERATOR. PATIENT AMB 50' WITH SWEATBAND DECORATING MACHINE OPERATOR ASSIST FROM [facility] AND THIS THERAPIST TRANSPORTING G-TUB DRIP STAND. PATIENT DEMO BILAT LE REDUCED STEP LENGTHS, DECREASED HIP AND KNEE EXT WITH STANCE PHASE, FOOT FLAT AT INITIAL CONTACT, 0 FALLS/LOB. DISCUSSED WITH NANCIE MCGEE THAT PATIENT'S DECREASED COGNTION RESULT IN INABILITY TO ATTEMPT FWW USAGE. NANCIE MCGEE REPORTS THAT [facility] STAFF ASSISTS PATIENT WITH AMB AT LEAST 1X DAY. DUE TO PATIENT AT MAX FUNCTIONAL LEVEL, REQUIRES ASSIST WITH ALL TRANSFERS AND AMB DUE TO DECREASED COGNITION RESULTING IN INABILITY TO USE FWW, RECENT SEIZURES, AND 24/7 G-TUBE DRIP, PHYSICAL THERAPY EVAL ONLY. PATIENT INFORMED ABOUT PHYSICAL THERAPY EVAL ONLY HOWEVER MADE NO VERBAL RESPONSE. EVERARDO CEREAL MILLER VERBALIZED SUPPORT FOR PT EVAL ONLY. THIS THERAPIST CALLED AND SPOKE WITH [facility] DIRECTOR ([phone]) INFORMING ABOUT PHYSICAL THERAPY EVAL ONLY WITH NATHEN VERBALIZING AGREEMENT. MD NOTIFIED ABOUT PATIENT STATUS AND EVAL ONLY.] Goal Patient Goal - STAY OUT OF H OSPITAL Goal Provider Goal - A PLAN OF CARE WILL BE ESTABLISHED THAT MEETS PATIENT'S INTERMEDIATE NEEDS AND INCLUDES PATIENT GOAL FOR HOME [...] CERTIFICATION PERIOD. Goal Provider Goal - NONE Progress Notes Progress Notes <paragraph>[Visit Date: 2024 by HEBER CRAWLEY LPN]:</paragraph><paragraph>SNV 05/16</paragraph><paragraph></paragraph><paragraph>ABNORMAL VITALS: WITHIN PTS ESTABLISHED PARAMETERS </paragraph><paragraph></paragraph><paragraph>FALLS: NO FALLS. </paragraph><paragraph></paragraph><paragraph>MEDICATION CHANGES: NO CHANGES </paragraph><paragraph></paragraph><paragraph>OBSERVATION AND ASSESSMENT PROVIDED: PATIENT IS ALERT AND ORIENTED X2 MOSTLY NONVERBAL. PATIENT IS APPEARS GENERALLY WELL, IN GOOD SPIRITS, WALKING BACK FROM BATHROOM WITH ASSISTANCE OF STAFF SMILING. VITAL SIGNS ARE WITHIN PATIENT'S BASELINE, PATIENT IS TOLERATING AT THE TRILEPTAL WELL AND NO NEW SEIZURE ACTIVITIES REPORTED. THE PEG SITE SHOWS SLIGHT SCABBING AROUND EDGES BUT OVERALL IMPROVED SKIN CONDITION WITH NO SIGNS OF INFECTION. PATIENT IS OBSERVED WALKING SHORT DISTANCES WITH ASSISTANCE AND BEING ENCOURAGED TO AMBULATE DAILY BY STAFF TO MAINTAIN FUNCTION. NUTRITION IS ON A HIGH CALORIE FEEDING REGIMEN AND PT IS TOLERATING WELL, AFEBRILE, LSCTA, STABLE SEIZURE DISORDER ON CURRENT MEDICATIONS. MOBILITY IMPROVING WITH ASSISTANCE. SKIN CONDITION AT PEG SITE STABLE WITH CURRENT CARE. CALENDAR REVIEWED, NURSE WILL CALL DAY PRIOR TO CONFIRM VISITS</paragraph><paragraph></paragraph><paragraph>EDUCATION: ENCOURAGED DAILY MOBILITY, MAINTAIN SKIN CARE PROTOCOL, KEEP SITE CLEAN, DRY AND INTACT. MONITOR FOR ANY CHANGES IN SKIN INTEGRITY OR SIGNS OF INFECTION. FACILITY STAFF RECEPTIVE TO INFORMATION AND VERBALIZED UNDERSTANDING</paragraph><paragraph></paragraph><paragraph>INTERVENTIONS NEEDED AT NEXT VISIT: ASSESSMENT </paragraph><paragraph></paragraph><paragraph>COMMUNICATION WITH MD: N.A </paragraph><paragraph></paragraph><paragraph>NEXT MD APPOINTMENT: PCP 05/25 </paragraph><paragraph></paragraph><paragraph>PT AND CAREGIVER INSTRUCTED TO CALL CINDY MARSHALL WITH ANY QUESTIONS OR CONCERNS AND/OR CHANGES IN CONDITION. </paragraph><paragraph></paragraph><paragraph>HEBER CRAWLEY LPN</paragraph> Encounters Start Date/Time End Date/Time Encounter Type Admission Type Attending Clinicians Care Facility Care Department Encounter ID Discharge Date Discharge Status Discharge Condition Discharge Reason Percent Goals Met 2025-04-08 00:00:00 2025-06-06 00:00:00 Outpatient [facility] [id number] 26.67
== END 2025-05-18 15:48 | disposition home or self-care (01) ==
LOC: HO.HCS 14:47
PROVIDERS: PCP Internal Medicine
DX: I95.9 Hypotension, unspecified (principal); I44.7 Left bundle-branch block, unspecified; Z01.810 Encounter for preprocedural cardiovascular examination
CPT/HCPCS: 99214; G2211

== ENCOUNTER → 2025-05-18 14:45 | Outpatient (BNVA) | payer MEDICARE, MEDICAID, SELFPAY | PROVIDERS: PCP Internal Medicine | DX: I95.9 Hypotension, unspecified (principal); Z01.810 Encounter for preprocedural cardiovascular examination; I44.7 Left bundle-branch block, unspecified; Z79.82 Long term (current) use of aspirin | CPT/HCPCS: 99212 ==

== ENCOUNTER 2025-05-26 10:58 | Outpatient (AMB) | payer MEDICARE, MEDICAID, SELFPAY ==
--- NOTE | 2025-05-26 11:10 | A.OFFPC_ITS ---
Vital Signs 05/26/25 11:12 Height 4 ft 3 in Weight 76 lb 4.479 oz BMI 20.6 BP 110/66 Blood Pressure Location Lt brachial Position Sitting Temp 97.1 F Temp Source Temporal Artery Scan Intake Visit Reasons: [facility] 05/25 Intake Note: Patient is here to follow-up after a visit the emergency department at [facility] on 05/25/25. Product Test Specialist Required: No Certified Massage Therapist: Present Accompanied by: staffs. Allergies Sulfa (Sulfonamide Antibiotics) Allergy (Mild, Verified 05/26/25 11:12) HIVES sulfamethoxazole (From Bactrim) Allergy (Mild, Verified 05/26/25 11:12) HIVES amoxicillin (Amoxicillin) Allergy (Unknown, Verified 05/26/25 11:12) HIVES Clindamycin HCl Allergy (Unknown, Verified 05/26/25 11:12) rash trimethoprim (From Bactrim) Allergy (Unknown, Verified 05/26/25 11:12) HIVES Tobacco use date assessed: 05/26/25 Fall risk assessment: No Falls in past year Last assessed Fall Risk: 05/26/25 Dental Screening Dental Screen Date: 04/13/25 HPI HPI Comments History of Present Illness Details 65 y/o female presents today for [facility] l discharge follow-up. H si gnificant for stroke, Down syndrome, hypothyroidism, hyperlipidemia, and G-tube dependence. She was admitted at [facility] from 05/21?05/25 for evaluation and treatment of shortness of breath and cough; diagnosed with bilateral lower lobe pneumonia. She completed her prescribed antibiotic course: Cefdinir 300 mg via G-tube twice daily and doxycycline. Today, patient appears well. No current complaints or concerns reported by caregiver. No fever, cough, breathing difficulty, or changes in baseline status. [facility] Medical History G-tube site cellulitis Cutaneous candidiasis Medicare annual wellness visit, subsequent Preoperative cardiovascular examination New onset left bundle branch block (LBBB) Lethargy COVID-19 virus infection Mental status alteration Colon cancer screening Atlantoaxial instability Cholelithiasis Mental and behavioral problem Hypercholesterolemia Vitamin D deficiency Closed right ankle fracture Patent foramen ovale Hypothyroid Megaloblastic anemia CVA (cerebral vascular accident) Cataracts, bilateral Down syndrome Jorge L's disease Surgical History History of surgery Clubfoot Hx of tubal ligation Hx of cataract surgery History of colonoscopy Family History Father No problems noted. Mother Hx of cancer of lung Social History Household Members: Other Household Members Other:: jail Housing: Other Housing Other:: jail Do you presently have visiting nurse or other home services: No Alcohol intake: never Comment: jail staff at bedside Patient Tobacco Use Status: Never used Tobacco e-Cigarette/Vaping Use: Never Used Second Hand Smoke Exposure: No Advance Directives Date on File: 10/26/24 service: No Current occupational status: disabled Cognitive needs: Yes (Wheelchair) Hearing needs: No Vision needs: Yes (Glasses) Questionnaire Thrive Questionnaire Date Thrive assessed: 04/13/25 I am a: Parent/Caregiver What is your living situation today?: I have a steady place to live Within the past 12 months, did the food you bought not last and you didn't have the money to get more?: I choose not to answer this question Within the past 12 months, did you worry whether your food would run out before you got money to buy more?: I choose not to answer this question Do you have trouble paying for medicines?: I choose not to answer this question Do you have trouble getting transportation to medical appointments?: I choose not to answer this question Do you have trouble paying your heating and electricity bill?: I choose not to answer this question Do you have trouble taking care of your child, family member or friend?: I choose not to answer this question Do you have trouble with day-to-day activities such as bathing, preparing meals, shopping, managing finances, etc.?: I choose not to answer this question Are you currently unemployed and looking for a job?: I choose not to answer this question Are you interested in more education?: I choose not to answer this question Please select the resources that you would like help with: None Currently or been in a relationship where the following occur: No concerns reported THRIVE Score: 0 NEHA-7 AMB Questionnaire NEHA-7 Date NEHA - 7 assessed: 02/17/25 Source: Developed by Drs. Monico Cuellar, Peggy Morris, Parvez Guerrier and colleagues, with an educational tesha from [employer]. Review of Systems Const All systems reviewed & are unremarkable except as noted in HPI and below Physical exam (Primary Care) Vital Signs: Last Vital Signs Temp 97.1 F 05/26/25 11:12 BP 110/66 05/26/25 11:12 BMI result Body Mass Index 20.6 Tobacco/Smoking Status: Tobacco use Status Tobacco use date assessed 05/26/25 05/26/25 11:24 Patient Tobacco Use Status Never used Tobacco 05/26/25 11:24 e-Cigarette/Vaping Use Never Used 05/26/25 11:24 Thrive Assessment: Date of Thrive Assessment Date Thrive assessed 04/13/25 05/26/25 11:24 Currently or been in a relationship where the following occur: No concerns reported Const General: no acute distress, alert, awake and Physically active Resp Effort & Inspection: normal respiratory effort Auscultation: clear to auscultation bilaterally Cardio Heart sounds: S1 normal heart sound present and S2 normal heart sound present Coding Level of Care Code Est Pt Level 4 (07820) Diagnoses Multifocal pneumonia J18.9 Time Spent (min) 20 Assessment & Plan Assessment & Plan (1) Multifocal pneumonia: Code(s): J18.9 - Pneumonia, unspecified organism Category: Medical Plan: Recent bilateral lower lobe pneumonia, resolved ? Patient has completed full course of cefdinir and doxycycline. No residual symptoms. Stable on exam. Continue routine care and monitoring at home. Encourage hydration and pulmonary hygiene as tolerated. Monitor for return of symptoms: fever, cough, SOB, increased secretions, decreased intake via G-tube, or any decline in baseline.
[2025-05-26 11:12] VITALS: BP 110/66; TEMP 36.2; BMI 20.6
--- OUTSIDE RECORDS SUMMARY | 2025-05-26 11:50 | XMS_ITS | Clinical Summary ---
Author Organization [address] Address [address] [place] [phone] Phone Care Team Providers Care Ring Rolling Machine Operator Name Role Phone Erickson Melton MD Primary Care Provider +1- [phone] Allergies Active Allergy Reactions Criticality Noted Date Comments Amoxicillin Unknown 09/30/2024 Patient has tolerated cefdinir in 2024 at [facility] and also ceftriaxone at [facility] 2024 Clindamycin Unknown 09/30/2024 Sulfa (Sulfonamide [...] Medical History Date Comments Down syndrome Dementia ([facility] V24, [facility] V28) CVA (cerebral vascular accident) ([facility] V24, [facility] V28) Hypothyroidism Aspiration pneumonia ([facility] V24, [facility] V28) C. difficile colitis Social [...] your loved ones. For example, early childhood aide classroom or elderly care for an older adult? [...] Documents on File Type Date Recorded Patient Manager Solution Expl anation Advance Directives and Livin g [...] Agents on File Name Relationship Healthcare Agent [facility] Communication [facility] Care Agent ([employer]) Care Teams Ring Rolling Machine Operator Relationship Specialty Start Date End Date Erickson Melton MD [address] [place] [address] PCP - General Internal Medicine 09/13/24
--- OUTSIDE RECORDS SUMMARY | 2025-05-26 11:50 | XMS_ITS | Encounter Summary ---
Author Organization [facility] Address [address] [place] [address] Care Team Providers Care Slate Worker Name Role Phone Erickson Melton MD Primary Care Provider +1- [phone] Encounter Details Date Type Department Care Team (Late st Contact Info) Description 10/31/2024 Lab Requisition [facility] - Main Lab [address] [facility] [place] [address] Erickson Melton MD [address] [place] [address] Pneumonia, unspecified organism; Anemia, unspecified Social History [...] your loved ones. For example, child care supervisor or elderly care for an older adult? [...] mmol/L LAB CHEMISTRY METHOD 11/01/2024 11:26 AM [facility] Potassium 4.1 3.5 - 5.5 mmol/L LAB CHEMISTRY METHOD 11/01/2024 11:26 AM [facility] Chloride 102 96 - 110 mmol/L LAB CHEMISTRY METHOD 11/01/2024 11:26 AM [facility] CO2 34(H) 21 - 32 mmol/L LAB CHEMISTRY METHOD 11/01/2024 11:26 AM [facility] Anion Gap 5 3 - 11 LAB CHEMISTRY METHOD 11/01/2024 11:26 AM [facility] Glucose 86 70 - 100 mg/dL LAB CHEMISTRY METHOD 11/01/2024 11:26 AM [facility] BUN 23 5 - 25 mg/dL LAB CHEMISTRY METHOD 11/01/2024 11:26 AM [facility] Creatinine 0.74 0.50 - 1.10 mg/dL LAB CHEMISTRY METHOD 11/01/2024 11:26 AM [facility] eGFR 90 >=60 mL/min/1. 73m2 LAB CHEMISTRY METHOD 11/01/2024 11:26 AM [facility] Comment:Calculation based on the Chronic Kidney Disease Epidemiology Collaboration (CKD-EPI) equation refit without adjustment for race. BUN/Creatinine Ratio 31.1 LAB CHEMISTRY METHOD 11/01/2024 11:26 AM [facility] Calcium 8.6 8.5 - 10.5 mg/dL LAB CHEMISTRY METHOD 11/01/2024 11:26 AM [facility] Blood Venous blood specimen / Unknown Venipuncture / Unknown 11/01/2024 6:41 AM EDT 11/01/2024 10:40 AM EDT us Erickson Melton MD LAB BLOOD ORDERABLES Final Result [facility] [address] [place] [address], * (ABNORMAL) Complete blood count (11/01/2024 6:41 AM EDT) WBC 9.2 4.8 - 10.8 K/mcL LAB HEMETOLOGY METHOD 11/01/2024 10:57 AM EDT [facility] RBC 3.90 3.80 - 4.80 M/mcL LAB HEMETOLOGY METHOD 11/01/2024 10:57 AM EDT [facility] Hemoglobin 13.5 11.5 - 16.0 g/dL LAB HEMETOLOGY METHOD 11/01[facility]24 [facility] Hematocrit 43.3 35.0 - 47.0 % LAB HEMETOLOGY METHOD 11/01/2024 10:57 [facility] MCV 110.7(H) 79.0 - 98.0 [...] K/mcL LAB HEMETOLOGY METHOD 11/01/2024 10:57 [facility] MPV [...] Result [facility] [address] [place] [address], documented in this encounter Visit Diagnoses Diagnosis [...] documented as of this encounter Care Teams Slate Worker Relationship Specialty Start Date End Date Erickson Melton MD [address] [place] [id number] PCP - General Internal Medicine 09/13/24 documented as of this encounter
--- OUTSIDE RECORDS SUMMARY | 2025-05-26 11:50 | XMS_ITS | Encounter Summary ---
Author Organization [facility] Address [address] [place] [address] Care Team Providers Care Television News Reporter Name Role Phone Erickson Melton MD Primary Care Provider +1- [phone] Encounter Details Date Type Department Care Team (Late st Contact Info) Description 10/27/2024 Lab Requisition [facility] - Main Lab [address] [facility] [place] [address] Erickson Melton MD [address] [place] [address] Enterocolitis due to Clostridium difficile, not specified [...] mmol/L LAB CHEMISTRY METHOD 10/27/2024 9:33 AM [facility] Potassium 4.3 3.5 - 5.5 mmol/L LAB CHEMISTRY METHOD 10/27/2024 9:33 AM [facility] Comment:Hemolysis present Chloride 105 96 - 110 mmol/L LAB CHEMISTRY METHOD 10/27/2024 9:33 AM [facility] CO2 29 21 - 32 mmol/L LAB CHEMISTRY METHOD 10/27/2024 9:33 AM [facility] Anion Gap 6 3 - 11 LAB CHEMISTRY METHOD 10/27/2024 9:33 AM [facility] Glucose 82 70 - 100 mg/dL LAB CHEMISTRY METHOD 10/27/2024 9:33 AM [facility] BUN 33(H) 5 - 25 mg/dL LAB CHEMISTRY METHOD 10/27/2024 9:33 AM [facility] Creatinine 0.68 0.50 - 1.10 mg/dL LAB CHEMISTRY METHOD 10/27/2024 9:33 AM [facility] eGFR 97 >=60 mL/min/1. 73m2 LAB CHEMISTRY METHOD 10/27/2024 9:33 AM [facility] Comment:Calculation based on the Chronic Kidney Disease Epidemiology Collaboration (CKD-EPI) equation refit without adjustment for race. BUN/Creatinine Ratio 48.5 LAB CHEMISTRY METHOD 10/27/2024 9:33 AM [facility] Calcium 8.7 8.5 - 10.5 mg/dL LAB CHEMISTRY METHOD 10/27/2024 9:33 AM [facility] Blood Venous blood specimen / Unknown Venipuncture / Unknown 10/27/2024 6:46 AM EDT 10/27/2024 7:59 AM EDT Erickson Melton MD LAB BLOOD ORDERABLES Final Result [facility] [address] [place] [address], * (ABNORMAL) Complete blood count (10/27/2024 6:46 AM EDT) WBC 10.5 4.8 - 10.8 K/mcL LAB HEMETOLOGY METHOD 10/27/2024 8:39 AM EDT [facility] RBC 3.80 3.80 - 4.80 M/mcL LAB HEMETOLOGY METHOD 10/27/2024 8:39 AM [facility] Hemoglobin 13.0 11.5 - 16.0 g/dL LAB HEMETOLOGY METHOD 10/27/2024 8:39 AM [facility] Hematocrit 42.2 35.0 - 47.0 % LAB HEMETOLOGY METHOD 10/27/2024 8:39 AM [facility] MCV 111.9(H) 79.0 - 98.0 FL LAB HEMETOLOGY METHOD 10/27/2024 8:39 AM [facility] MCH 34.5(H) 27.0 - 32.0 pcg LAB HEMETOLOGY METHOD 10/27/2024 8:39 AM [facility] MCHC 30.8(L) 32.0 - 37.0 g/dL LAB HEMETOLOGY METHOD 10/27/2024 8:39 AM [facility] RDW 17.3(H) 11.0 - 15.0 % LAB HEMETOLOGY METHOD 10/27/2024 8:39 AM [facility] Platelets 181 130 - 400 K/mcL LAB HEMETOLOGY METHOD 10/27/2024 8:39 AM T [facility] MPV 10.6 7.0 - 11.0 FL LAB HEMETOLOGY METHOD 10/27/2024 8:39 AM EDT [facility] NRBC 0.0 <1.0 % LAB HEMETOLOGY METHOD 10/27/2024 8:39 AM EDT [facility] NRBC Absolute 0.00 <0.10 K/mcL LAB HEMETOLOGY METHOD 10/27/2024 8:39 AM EDT [facility] Blood Venous blood specimen / Unknown Venipuncture / Unknown 10/27/2024 6:46 AM EDT 10/27/2024 7:59 AM EDT Erickson Melton MD LAB BLOOD ORDERABLES Final Result [facility] [address] [place] [address], documented in this encounter Visit Diagnoses Diagnosis [...] documented as of this encounter Care Teams Television News Reporter Relationship Specialty Start Date End Date Erickson Melton MD [address] [place] [address] PCP - General Internal Medicine 09/13/24 documented as of this encounter
--- OUTSIDE RECORDS SUMMARY | 2025-05-26 11:51 | XMS_ITS | Encounter Summary ---
Author Organization [facility] Address [address] [place] [address] Care Team Providers Care Customer Associate Name Role Phone Erickson Melton MD Primary Care Provider +1- [phone] Encounter Details Date Type Department Care Team (Late st Contact Info) Description 10/17/2024 Lab Requisition [facility] - Main Lab [address] [facility] [place] [address] Erickson Melton MD [address] [place] [address] Pneumonia, unspecified organism; Anemia, unspecified Social History [...] care for your loved ones. For example, teacher early childhood development or elderly care for an older adult? [...] mmol/L LAB CHEMISTRY METHOD 10/18/2024 11:47 AM [facility] Potassium 4.0 3.5 - 5.5 mmol/L LAB CHEMISTRY METHOD 10/18/2024 11:47 AM [facility] Chloride 99 96 - 110 mmol/L LAB CHEMISTRY METHOD 10/18/2024 11:47 AM [facility] CO2 35(H) 21 - 32 mmol/L LAB CHEMISTRY METHOD 10/18/2024 11:47 AM [facility] Anion Gap 5 3 - 11 LAB CHEMISTRY METHOD 10/18/2024 11:47 AM [facility] Glucose 76 70 - 100 mg/dL LAB CHEMISTRY METHOD 10/18/2024 11:47 AM [facility] BUN 19 5 - 25 mg/dL LAB CHEMISTRY METHOD 10/18/2024 11:47 AM [facility] Creatinine 0.71 0.50 - 1.10 mg/dL LAB CHEMISTRY METHOD 10/18/2024 11:47 AM [facility] eGFR 95 >=60 mL/min/1. 73m2 LAB CHEMISTRY METHOD 10/18/2024 11:47 AM [facility] Comment:Calculation based on the Chronic Kidney Disease Epidemiology Collaboration (CKD-EPI) equation refit without adjustment for race. BUN/Creatinine Ratio 26.8 LAB CHEMISTRY METHOD 10/18/2024 11:47 AM [facility] Calcium 9.4 8.5 - 10.5 mg/dL LAB CHEMISTRY METHOD 10/18/2024 11:47 AM [facility] Blood Venous blood specimen / Unknown Venipuncture / Unknown 10/18/2024 8:38 AM EDT 10/18/2024 10:05 AM EDT us Erickson Melton MD LAB BLOOD ORDERABLES Final Result [facility] [address] [place] [address], * (ABNORMAL) Complete blood count (10/18/2024 8:38 AM EDT) WBC 2.4(L) 4.8 - 10.8 K/mcL LAB HEMETOLOGY METHOD 10/18/2024 11:[address] [facility] RBC 3.60(L) 3.80 - 4.80 M/mcL LAB HEMETOLOGY METHOD 10/18/2024 11:22 AM [facility] Hemoglobin 12.3 11.5 - 16.0 g/dL LAB HEMETOLOGY METHOD 10/18/2024 11:22 AM [facility] Hematocrit 39.0 35.0 - 47.0 % LAB HEMETOLOGY METHOD 10/18/2024 11:22 AM [facility] MCV 107.7(H) 79.0 - 98.0 FL LAB HEMETOLOGY METHOD 10/18/2024 11:22 AM [facility] MCH 34.0(H) 27.0 - 32.0 pcg LAB HEMETOLOGY METHOD 10/18/2024 11:22 AM [facility] MCHC 31.5(L) 32.0 - 37.0 g/dL LAB HEMETOLOGY METHOD 10/18/2024 11:22 AM [facility] RDW 17.2(H) 11.0 - 15.0 % LAB HEMETOLOGY METHOD 10/18/2024 11:22 AM [facility] Platelets 238 130 - 400 K/mcL LAB HEMETOLOGY METHOD 10/18/2024 11:22 AM [facility] MPV 10.8 7.0 - 11.0 FL LAB HEMETOLOGY METHOD 10/18/2024 11:[address] [facility] NRBC 0.0 <1.0 % LAB HEMETOLOGY METHOD 10/18/2024 11:[address] [facility] NRBC Absolute 0.00 <0.10 K/mcL LAB HEMETOLOGY METHOD 10/18/2024 11:[address] [facility] Blood Venous blood specimen / Unknown Venipuncture / Unknown 10/18/2024 8:38 AM EDT 10/18/2024 10:05 AM EDT Erickson Melton MD LAB BLOOD ORDERABLES Final Result [facility] [address] [place] [address], documented in this encounter Visit Diagnoses Diagnosis [...] documented as of this encounter Care Teams Customer Associate Relationship Specialty Start Date End Date Erickson Melton MD [address] [place] [address] PCP - General Internal Medicine 09/13/24 documented as of this encounter
--- OUTSIDE RECORDS SUMMARY | 2025-05-26 11:51 | XMS_ITS | Encounter Summary ---
Author Organization [facility] Address [address] [place] [address] Care Team Providers Care Night Coordinator Name Role Phone Erickson Melton MD Primary Care Provider +1- [phone] Encounter Details Date Type Department Care Team (Late st Contact Info) Description 12/05/2024 Lab Requisition [facility] - Main Lab [address] [facility] [place] [address] Erickson Melton MD [address] [place] [address] Pneumonia, unspecified organism; Anemia, unspecified Social History [...] for your loved ones. For example, children's choir director or elderly care for an older [...] mmol/L LAB CHEMISTRY METHOD 12/06/2024 11:47 AM [facility] Potassium 4.1 3.5 - 5.5 mmol/L LAB CHEMISTRY METHOD 12/06/2024 11:47 AM [facility] Comment:Hemolysis present Chloride 106 96 - 110 mmol/L LAB CHEMISTRY METHOD 12/06/2024 11:47 AM [facility] CO2 26 21 - 32 mmol/L LAB CHEMISTRY METHOD 12/06/2024 11:47 AM [facility] Anion Gap 10 3 - 11 LAB CHEMISTRY METHOD 12/06/2024 11:47 AM [facility] Glucose 73 70 - 100 mg/dL LAB CHEMISTRY METHOD 12/06/2024 11:47 AM [facility] BUN 24 5 - 25 mg/dL LAB CHEMISTRY METHOD 12/06/2024 11:47 AM [facility] Creatinine 0.65 0.50 - 1.10 mg/dL LAB CHEMISTRY METHOD 12/06/2024 11:47 AM [facility] eGFR 98 >=60 mL/min/1. 73m2 LAB CHEMISTRY METHOD 12/06/2024 11:47 AM [facility] Comment:Calculation based on the Chronic Kidney Disease Epidemiology Collaboration (CKD-EPI) equation refit without adjustment for race. BUN/Creatinine Ratio 36.9 LAB CHEMISTRY METHOD 12/06/2024 11:47 AM [facility] Calcium 8.4(L) 8.5 - 10.5 mg/dL LAB CHEMISTRY METHOD 12/06/2024 11:47 AM [facility] Blood Venous blood specimen / Unknown Venipuncture / Unknown 12/06/2024 7:48 AM EDT 12/06/2024 9:05 AM EDT Erickson Melton MD LAB BLOOD ORDERABLES Final Result [facility] [address] [place] [address], * (ABNORMAL) Complete blood count (12/06/2024 7:48 AM EDT) WBC 3.8(L) 4.8 - 10.8 K/mcL LAB HEMETOLOGY METHOD 12/06/2024 11:40 AM EDT [facility] RBC 3.80 3.80 - 4.80 M/mcL LAB HEMETOLOGY METHOD 12/06/2024 11:40 AM EDT [facility] Hemoglobin 12.7 11.5 - 16.0 g/dL LAB HEMETOLOGY METHOD 12/06/2024 11:40 AM T [facility] Hematocrit 40.7 35.0 - 47.0 % LAB HEMETOLOGY METHOD 12/06/2024 11:40 AM EDT [facility] MCV 108.5(H) 79.0 - 98.0 FL LAB HEMETOLOGY METHOD 12/06/2024 11:40 AM [facility] MCH 33.9(H) 27.0 - 32.0 pcg LAB HEMETOLOGY METHOD 12/06/2024 11:40 AM T [facility] MCHC 31.2(L) 32.0 - 37.0 g/dL LAB HEMETOLOGY METHOD 12/06/2024 11:40 AM EDT [facility] RDW 15.0 11.0 - 15.0 % LAB HEMETOLOGY METHOD 12/06/2024 11:40 AM [facility] Platelets 160 130 - 400 K/mcL LAB HEMETOLOGY METHOD 12/06/2024 11:40 AM [facility] MPV 11.2(H) 7.0 - 11.0 FL LAB HEMETOLOGY METHOD 12/06/2024 11:40 AM EDT [facility] NRBC 0.0 <1.0 % LAB HEMETOLOGY METHOD 12/06/2024 11:40 AM EDT [facility] NRBC Absolute 0.00 <0.10 K/mcL LAB HEMETOLOGY METHOD 12/06/2024 11:40 AM EDT [facility] Blood Venous blood specimen / Unknown Venipuncture / Unknown 12/06/2024 7:48 AM EDT 12/06/2024 9:05 AM EDT Erickson Melton MD LAB BLOOD ORDERABLES Final Result [facility] [address] [place] [address], documented in this encounter Visit Diagnoses Diagnosis Pneumonia, unspecified organism Anemia, unspecified documented in this encounter Additional Health Concerns Infection Onset Date Last Indicated Resolved Time C. difficile Rule-Out 01/13/2025 01/13/20252024 4:32 AM EDT C. difficile Rule-Out 01/13/2025 01/13/20252024 10:19 AM EDT C. difficile 01/13/2025 01/13/2025 02/06/2025 7:06 PM EDT documented as of this encounter Care Teams Night Coordinator Relationship Specialty Start Date End Date Erickson Melton MD [address] [place] [address] PCP - General Internal Medicine 09/13/24 documented as of this encounter
--- OUTSIDE RECORDS SUMMARY | 2025-05-26 11:51 | XMS_ITS | Encounter Summary ---
Author Organization [facility] Address [address] [place] [address] Care Team Providers Care Lift Driver Name Role Phone Erickson Melton MD Primary Care Provider +1- [phone] Encounter Details Date Type Department Care Team (Late st Contact Info) Description 11/21/2024 Lab Requisition [facility] - Main Lab 299 [facility] [place] [address] Erickson Melton MD [address] [place] [address] Pneumonia, unspecified organism; Anemia, unspecified Social History [...] your loved ones. For example, child care director or elderly care for an older [...] Final Result [facility] [address] [place] [address], * (ABNORMAL) Complete blood count (11/22/2024 7:30 [...] Final Result [facility] [address] [place] [address], documented in this encounter Visit Diagnoses Diagnosis Pneumonia, unspecified organism Anemia, unspecified documented in this encounter Additional Health Concerns Infection Onset Date Last Indicated Resolved Time C. difficile Rule-Out 01/13/2025 01/13/20252024 4:32 AM EDT C. difficile Rule-Out 01/13/2025 01/13/20252024 10:19 AM EDT C. difficile 01/13/2025 01/13/2025 02/06/2025 7:06 PM EDT documented as of this encounter Care Teams Lift Driver Relationship Specialty Start Date End Date Erickson Melton MD [address] [place] [address] PCP - General Internal Medicine 09/13/24 documented as of this encounter
--- OUTSIDE RECORDS SUMMARY | 2025-05-26 11:51 | XMS_ITS | Encounter Summary ---
Author Organization [facility] Address [address] [place] [address] Care Team Providers Care Senior Etl Developer Name Role Phone Erickson Melton MD Primary Care Provider +1- [phone] Encounter Details Date Type Department Care Team (Late st Contact Info) Description 09/19/2024 Lab Requisition [facility] - Main Lab 299 [facility] [place] [address] Erickson Melton MD [address] [place] [address] Anemia, unspecified; Hypothyroidism, unspecified; Other seizures (CMS/HCC [...] mmol/L LAB CHEMISTRY METHOD 09/20/2024 11:[address] [facility] Potassium 4.0 3.5 - 5.5 mmol/L LAB CHEMISTRY METHOD 09/20/2024 11:[address] [facility] Chloride 97 96 - 110 mmol/L LAB CHEMISTRY METHOD 09/20/2024 11:[address] [facility] CO2 36(H) 21 - 32 mmol/L LAB CHEMISTRY METHOD 09/20/2024 11:[address] [facility] Anion Gap 6 3 - 11 LAB CHEMISTRY METHOD 09/20/2024 11:[address] [facility] Glucose 121(H) 70 - 100 mg/dL LAB CHEMISTRY METHOD 09/20/2024 11:[address] [facility] BUN 27(H) 5 - 25 mg/dL LAB CHEMISTRY METHOD 09/20/2024 11:[address] [facility] Creatinine 0.71 0.50 - 1.10 mg/dL LAB CHEMISTRY METHOD 09/20/2024 11:[address] [facility] eGFR 95 >=60 mL/min/1. 73m2 LAB CHEMISTRY METHOD 09/20/2024 11:[address] [facility] Comment:Calculation based on the Chronic Kidney Disease Epidemiology Collaboration (CKD-EPI) equation refit without adjustment for race. BUN/Creatinine Ratio 38.0 LAB CHEMISTRY METHOD 09/20/2024 11:[address] [facility] Calcium 8.4(L) 8.5 - 10.5 mg/dL LAB CHEMISTRY METHOD 09/20/2024 11:[address] [facility] Blood Venous blood specimen / Unknown Venipuncture / Unknown 09/20/2024 7:49 AM EDT 09/20/2024 10:04 AM EDT Erickson Melton MD LAB BLOOD ORDERABLES Final Result [facility] [address] [place] [address], * (ABNORMAL) Complete blood count (09/20/2024 7:49 [...] HOSPITAL LAB NRBC 0.0 <1.0 % [facility] 09/20/2024 10:34 AM EDT [facility] NRBC Absolute 0.00 <0.10 K/mcL LAB HEMETOLOGY METHOD 09/20/2024 10:34 AM EDT [facility] Blood Venous blood specimen / Unknown Venipuncture / Unknown 09/20/2024 7:49 AM EDT 09/20/2024 10:04 AM EDT Erickson Melton MD LAB BLOOD ORDERABLES Final Result [facility] [address] [place] [address], documented in this encounter Visit Diagnoses Diagnosis [...] as of this encounter Care Teams Senior Etl Developer Relationship Specialty Start Date End Date Erickson Melton MD [address] [place] [address] PCP - General Internal Medicine 09/13/24 documented as of this encounter
--- OUTSIDE RECORDS SUMMARY | 2025-05-26 11:51 | XMS_ITS | Encounter Summary ---
Author Organization [facility] Address [address] [place] [address] Care Team Providers Care Legal Billing Clerk Name Role Phone Erickson Melton MD Primary Care Provider +1- [phone] Encounter Details Date Type Department Care Team (Late st Contact Info) Description 09/19/[address] [facility] - Main Lab 299 [facility] [place] [address] Erickson Melton MD [address] [place] [address] Other seizures (CMS/HCC V24, CMS/HCC V28); Hypothyroidism, [...] (ABNORMAL) Thyroxine total (09/19/2024 9:04 AM EDT) [facility] T4, Total 2.8(L) 4.5 - 10.9 mcg/dL LAB CHEMISTRY METHOD 09/19/2024 1:40 PM EDT [facility] Blood Venous blood specimen / Unknown Venipuncture / Unknown 09/19/2024 9:04 AM EDT 09/19/2024 11:18 AM EDT Erickson Melton MD LAB BLOOD ORDERABLES Final Result [facility] [address] [place] [address], * (ABNORMAL) Comprehensive metabolic panel (09/19/2024 9:04 AM EDT) [facility] Sodium 139 133 - 145 mmol/L LAB CHEMISTRY METHOD 09/19/2024 1:38 PM [facility] Potassium 4.2 3.5 - 5.5 mmol/L LAB CHEMISTRY METHOD 09/19/2024 1:38 PM [facility] Chloride 97 96 - 110 mmol/L LAB CHEMISTRY METHOD 09/19/2024 1:38 PM T [facility] CO2 38(H) 21 - 32 mmol/L LAB CHEMISTRY METHOD 09/19/2024 1:38 PM [facility] Anion Gap 4 3 - 11 LAB CHEMISTRY METHOD 09/19/2024 1:38 PM [facility] Glucose 98 70 - 100 mg/dL LAB CHEMISTRY METHOD 09/19/2024 1:38 PM [facility] BUN 27(H) 5 - 25 mg/dL LAB CHEMISTRY METHOD 09/19/2024 1:38 PM T [facility] Creatinine 0.67 0.50 - 1.10 mg/dL LAB CHEMISTRY METHOD 09/19/2024 1:38 PM T [facility] eGFR 98 >=60 mL/min/1. 73m2 LAB CHEMISTRY METHOD 09/19/2024 1:38 PM [facility] Comment:Calculation based on the Chronic Kidney Disease Epidemiology Collaboration (CKD-EPI) equation refit without adjustment for race. BUN/Creatinine Ratio 40.3 LAB CHEMISTRY METHOD 09/19/2024 1:38 PM T [facility] Calcium 8.9 8.5 - 10.5 mg/dL LAB CHEMISTRY METHOD 09/19/2024 1:38 PM [facility] AST (SGOT) 20 10 - 42 unit/L LAB CHEMISTRY METHOD 09/19/2024 1:38 PM [facility] ALT (SGPT) 32 10 - 60 unit/L LAB CHEMISTRY METHOD 09/19/2024 1:38 PM [facility] Alkaline Phosphatase 144(H) 42 - 121 unit/L LAB CHEMISTRY METHOD 09/19/2024 1:38 PM [facility] Total Protein 6.6 6.0 - 8.0 g/dL LAB CHEMISTRY METHOD 09/19/2024 1:38 PM [facility] Albumin 2.6(L) 3.2 - 5.0 g/dL LAB CHEMISTRY METHOD 09/19/2024 1:38 PM [facility] Total Bilirubin 0.2 0.0 - 1.4 mg/dL LAB CHEMISTRY METHOD 09/19/2024 1:38 PM [facility] Blood Venous blood specimen / Unknown Venipuncture / Unknown 09/19/2024 9:04 AM EDT 09/19/2024 11:18 AM EDT us Erickson Melton MD LAB BLOOD ORDERABLES Final Result [facility] [address] [place] [address], * (ABNORMAL) Complete blood count (09/19/2024 9:04 AM EDT) [facility] WBC 7.4 4.8 - 10.8 K/mcL LAB HEMETOLOGY METHOD 09/19/2024 11:51 AM EDT [facility] RBC 3.30(L) 3.80 - 4.80 M/mcL LAB HEMETOLOGY METHOD 09/19/2024 11:51 AM EDT [facility] Hemoglobin 11.0(L) 11.5 - 16.0 g/dL LAB HEMETOLOGY METHOD 09/19/2024 11:51 AM [facility] Hematocrit 35.4 35.0 - 47.0 % LAB HEMETOLOGY METHOD 09/19/2024 11:51 AM [facility] MCV 108.3(H) 79.0 - 98.0 FL LAB HEMETOLOGY METHOD 09/19/2024 11:51 AM [facility] MCH 33.6(H) 27.0 - 32.0 pcg LAB HEMETOLOGY METHOD 09/19/2024 11:51 AM [facility] MCHC 31.1(L) 32.0 - 37.0 g/dL LAB HEMETOLOGY METHOD 09/19/2024 11:51 AM [facility] RDW 14.5 11.0 - 15.0 % LAB HEMETOLOGY METHOD 09/19/2024 11:51 AM [facility] Platelets 291 130 - 400 K/mcL LAB HEMETOLOGY METHOD 09/19/2024 11:51 AM [facility] MPV 11.1(H) 7.0 - 11.0 [...] Final Result [facility] [address] [place] [address], documented in this encounter Visit Diagnoses Diagnosis [...] documented as of this encounter Care Teams Legal Billing Clerk Relationship Specialty Start Date End Date Erickson Melton MD [address] [place] [address] PCP - General Internal Medicine 09/13/24 documented as of this encounter
--- OUTSIDE RECORDS SUMMARY | 2025-05-26 11:51 | XMS_ITS | Encounter Summary ---
Author Organization [facility] Address [address] [place] [address] Care Team Providers Care Supervisor Train Operations Name Role Phone Erickson Melton MD Primary Care Provider +1- [phone] Encounter Details Date Type Department Care Team (Late st Contact Info) Description 10/24/2024 Lab Requisition [facility] - Main Lab 299 [facility] [place] [address] Erickson Melton MD [address] [place] [address] Pneumonia, unspecified organism; Anemia, unspecified Social History [...] your loved ones. For example, child care sitter or elderly care for an older adult? [...] mmol/L LAB CHEMISTRY METHOD 10/25/2024 11:17 AM [facility] Potassium 4.2 3.5 - 5.5 mmol/L LAB CHEMISTRY METHOD 10/25/2024 11:17 AM [facility] Chloride 102 96 - 110 mmol/L LAB CHEMISTRY METHOD 10/25/2024 11:17 AM [facility] CO2 31 21 - 32 mmol/L LAB CHEMISTRY METHOD 10/25/2024 11:17 AM [facility] Anion Gap 9 3 - 11 LAB CHEMISTRY METHOD 10/25/2024 11:17 AM [facility] Glucose 98 70 - 100 mg/dL LAB CHEMISTRY METHOD 10/25/2024 11:17 AM [facility] BUN 26(H) 5 - 25 mg/dL LAB CHEMISTRY METHOD 10/25/2024 11:17 AM [facility] Creatinine 0.71 0.50 - 1.10 mg/dL LAB CHEMISTRY METHOD 10/25/2024 11:17 AM [facility] eGFR 95 >=60 mL/min/1. 73m2 LAB CHEMISTRY METHOD 10/25/2024 11:17 AM [facility] Comment:Calculation based on the Chronic Kidney Disease Epidemiology Collaboration (CKD-EPI) equation refit without adjustment for race. BUN/Creatinine Ratio 36.6 LAB CHEMISTRY METHOD 10/25/2024 11:17 AM [facility] Calcium 8.8 8.5 - 10.5 mg/dL LAB CHEMISTRY METHOD 10/25/2024 11:17 AM [facility] Blood Venous blood specimen / Unknown Venipuncture / Unknown 10/25/2024 8:09 AM EDT 10/25/2024 9:05 AM EDT Erickson Melton MD LAB BLOOD ORDERABLES Final Result [facility] [address] [place] [address], * (ABNORMAL) Complete blood count (10/25/2024 8:09 AM EDT) WBC 5.1 4.8 - 10.8 K/mcL LAB HEMETOLOGY METHOD 10/25/2024 10:40 AM EDT [facility] RBC 3.70(L) 3.80 - 4.80 M/mcL LAB HEMETOLOGY METHOD 10/25/2024 10:40 AM EDT [facility] Hemoglobin 12.7 11.5 - 16.0 g/dL LAB HEMETOLOGY METHOD 10/25/2024 10:40 AM [facility] Hematocrit 40.0 35.0 - 47.0 % LAB HEMETOLOGY METHOD 10/25/2024 10:40 AM EDT [facility] MCV 107.2(H) 79.0 - 98.0 FL LAB HEMETOLOGY METHOD 10/25/2024 10:40 AM T [facility] MCH 34.0(H) 27.0 - 32.0 pcg LAB HEMETOLOGY METHOD 10/25/2024 10:40 AM T [facility] MCHC 31.8(L) 32.0 - 37.0 g/dL LAB HEMETOLOGY METHOD 10/25/2024 10:40 AM EDT [facility] RDW 16.7(H) 11.0 - 15.0 % LAB HEMETOLOGY METHOD 10/25/2024 10:40 AM T [facility] Platelets 189 130 - 400 K/mcL LAB HEMETOLOGY METHOD 10/25/2024 10:40 AM EDT [facility] MPV 11.2(H) 7.0 - 11.0 FL LAB HEMETOLOGY METHOD 10/25/2024 10:40 AM EDT [facility] NRBC 0.0 <1.0 % LAB HEMETOLOGY METHOD 10/25/2024 10:40 AM EDT [facility] NRBC Absolute 0.00 <0.10 K/mcL LAB HEMETOLOGY METHOD 10/25/2024 10:40 AM EDT [facility] Blood Venous blood specimen / Unknown Venipuncture / Unknown 10/25/2024 8:09 AM EDT 10/25/2024 9:05 AM EDT Erickson Melton MD LAB BLOOD ORDERABLES Final Result [facility] [address] [place] [address], documented in this encounter Visit Diagnoses Diagnosis [...] as of this encounter Care Teams Supervisor Train Operations Relationship Specialty Start Date End Date Erickson Melton MD [address] [place] [address] PCP - General Internal Medicine 09/13/24 documented as of this encounter
--- OUTSIDE RECORDS SUMMARY | 2025-05-26 11:51 | XMS_ITS | Data Portability ---
Author Organization [facility], [address] Address [address] [place] [address] Assessment No assessment recorded. Plan of Treatment Reminders Order Date Submit Date Provider Last Modified By Organization Details Last Modified Time Details Appointments None recorded. Lab None recorded. Referral emergency medicine referral 2022 023 [email or web address] [facility] Emergency Room, [address] [place] [address], [id number], 3 08:00:22 Procedures None recorded. Surgeries None recorded. Imaging None recorded. Medication Orders None recorded. Patient TargetsNo targets recorded. Patient Instructions Encounter Date Encounter Id Patient Instructions Last Modified By Organization Details Last Modified Time 10/21/2022 [id number] You have been advised to go now to the Emergency Department for further evaluation. [facility] ER has been advised of your impending arrival. [email or web address] Not available 10/21/2022 17:01:48 Reason for Referral Emergency Medicine Referral for Petechiae of skin New petechial rash bilateral lower extremities (since last night) Referring Physician: Sveta Martin, Urgent Care, Encounter Date: 10/21/2022 Problems Name Problem SNOMED Code Status Onset Date Resolution Date Notes Provider Name and Address Organization Details Recorded Time Feeling agitated 43032883 Active 2022 IRIS PENNY R null, [place] - [facility] 3 15:15:15 Mood disorder 51397710 Active 2022 IRIS PENNY R null, [place] - [facility] 3 15:15:25 Aggressive behavior 23459449 Active 2022 IRIS PENNY R null, [place] - [facility] 3 15:15:36 Constipation 09486611 Active 2022 IRIS COUVERTIE R null, PA - [facility] 3 15:15:52 Hypothyroidism 44710818 Active 2022 IRIS COUVERTIE R null, [place] - [facility] 3 15:16:05 Allergic rhinitis 70599205 Active 2022 IRIS COUVERTIE R null, [place] - [facility] 3 15:16:38 Tinea pedis 7039905 Active 2022 IRIS COUVERTIE R null, [place] - [facility] 3 15:16:53 Sleep disorder 86943108 Active 2022 IRIS COUVERTIE R null, [place] - [facility] 3 15:18:09 Problem Notes None recorded. Medical Equipment None Reported. Allergies Allergen ID Allergen Name Allergen Category Reaction Reaction Severity Criticality Documentation Date Start Date Code Code System Note Provider Name and Address Organization Details Recorded Time 310259 amoxicill in medicatio n Not available Not available Not available 10/21/2022 723 RxNorm IRIS COUVERTIE R null, PA - [facility] 3 15:04:10 457390 Bactrim medicatio n Not available Not available Not available 10/21/2022 64477 9 RxNorm IRIS COUVERTIE R null, [place] - [facility] 3 15:04:17 607900 Substance with sulfonami de structure and antibacte rial mechanism of action (substanc e) medicatio n Not available Not available Not available 10/21/2022 53293 8003 SNOMED IRIS COUVERTIE R null, PA - [facility] 3 15:04:22 338825 clindamyc in Not available Not available Not [...] temperature Respiratory rate Heart rate Oxygen saturation Body height Body mass index (BMI) Body weight Systolic And Diastolic Provider Name and Address Organization Details Last Updated DateTime 3 98.2 [degF] 18 /min 58 /min 94 % 124.46 cm 24.7 kg/m2 14031.8 6 g 96/69 mm[Hg] LIBORIO Ferrell [facility] 3 15:11:15 Social History Question Answer Notes LastModified by Organizat ion Details LastModified Time Tobacco Smoking Status Never Smoker [facility] 10/21/2022 15:06:57 What Is Your Water Source? [facility] Information not available 10/21/2022 What Is Your [...] ICD10 Code Diagnosis IMO Codes Diagnosis Note [id number] [place] [address] [address] 10/21/2022 09:24:57 10/21/2022 17:07:10 Petechiae of skin 847634855 R23.3 Health Concerns Section Related Observation LastModified by Organization Detai ls LastModified Time None Recorded Concern Status LastModified by Organization Details LastModified Time None Recorded Advance Directives Directive None Recorded Payers Insurance Date Sequence Insurance Name Policy Number Policy Lu Covered Member ID Lu Member ID Guarantor Name 10/21/2022 1 [place] [employer] Whitney Lucero [id number] Whitney Lucero 10/21/2022 2 [place] [facility] Whitney Lucero [id number] Whitney Lucero Notes Date Note Type Note [...] with hx of Down's syndrome brought by long term staff member for evaluation of a red rash to her lower legs noted first last night. The patient is a poor historian and history obtained by long term staff member. No hx of fever, runny nose, cough, vomiting, diarrhea. No new medications, soaps or lotions. The rash does not appear to be itchy but seems to be spreading. Sveta aMrtin MD [address] [place] [address] [place], [address], [place] - [facility] 10/21/2022 17:07:58 OBGyn Episode No OBEpisode recorded.
--- OUTSIDE RECORDS SUMMARY | 2025-05-26 11:51 | XMS_ITS | Encounter Summary ---
Author Organization [facility] Address [address] [place] [address] Care Team Providers Care Clutch Specialist Name Role Phone Erickson Melton MD Primary Care Provider +1- [phone] Encounter Details Date Type Department Care Team (Late st Contact Info) Description 09/13/2024 Lab Requisition [facility] - Main Lab 299 [facility] [place] [address] Erickson Melton MD [address] [place] [address] Anemia, unspecified; Hypothyroidism, unspecified; Other seizures (CMS/HCC [...] - 35 ug/mL 09/16/2024 12:30 PM EDT [facility] Comment: If applicable, any drug confirmation testing reported here was developed and the performance characteristics determined by [facility]. This confirmation testing has not been cleared or approved by the FDA. The laboratory is regulated under CLIA as qualified to perform high-complexity testing. This test is used for patient testing purposes. It should not be regarded as investigational or for research. Test performed at [facility], [address] , [place] [address] Yessy Coulter MD, PhD - [employer] Blood Venous blood specimen / Unknown Venipuncture / Unknown 09/13/2024 8:54 AM EDT 09/13/2024 10:34 AM EDT Erickson Melton MD LAB BLOOD ORDERABLES Final Result [facility] [address] [place] [address] * (ABNORMAL) Thyroid stimulating hormone (09/13/2024 8:54 AM EDT) TSH 7.10(H) 0.40 - 4.00 mcIU/mL LAB CHEMISTRY METHOD 09/13/2024 1:18 PM EDT [facility] Blood Venous blood specimen / Unknown Venipuncture / Unknown 09/13/2024 8:54 AM EDT 09/13/2024 10:34 AM EDT us Erickson Melton MD LAB BLOOD ORDERABLES Final Result [facility] [address] [place] [address], * (ABNORMAL) Comprehensive metabolic panel (09/13/2024 8:54 AM EDT) Sodium 142 133 - 145 mmol/L LAB CHEMISTRY METHOD 09/13/2024 1:41 PM [facility] Potassium 4.3 3.5 - 5.5 mmol/L LAB CHEMISTRY METHOD 09/13/2024 1:41 PM [facility] Chloride 99 96 - 110 mmol/L LAB CHEMISTRY METHOD 09/13/2024 1:41 PM [facility] CO2 36(H) 21 - 32 mmol/L LAB CHEMISTRY METHOD 09/13/2024 1:41 PM [facility] Comment:Results verified by repeat testing Anion Gap 7 3 - 11 LAB CHEMISTRY METHOD 09/13/2024 1:41 PM [facility] Glucose 105(H) 70 - 100 mg/dL LAB CHEMISTRY METHOD 09/13/2024 1:41 PM [facility] BUN 23 5 - 25 mg/dL LAB CHEMISTRY METHOD 09/13/2024 1:41 PM [facility] Creatinine 0.77 0.50 - 1.10 mg/dL LAB CHEMISTRY METHOD 09/13/2024 1:41 PM [facility] eGFR 86 >=60 mL/min/1. 73m2 LAB CHEMISTRY METHOD 09/13/2024 1:41 PM [facility] Comment:Calculation based on the Chronic Kidney Disease Epidemiology Collaboration (CKD-EPI) equation refit without adjustment for race. BUN/Creatinine Ratio 29.9 LAB CHEMISTRY METHOD 09/13/2024 1:41 PM [facility] Calcium 8.9 8.5 - 10.5 mg/dL LAB CHEMISTRY METHOD 09/13/2024 1:41 PM T [facility] AST (SGOT) 25 10 - 42 unit/L LAB CHEMISTRY METHOD 09/13/2024 1:41 PM [facility] ALT (SGPT) 24 10 - 60 unit/L LAB CHEMISTRY METHOD 09/13/2024 1:41 PM T [facility] Alkaline Phosphatase 118 42 - 121 unit/L LAB CHEMISTRY METHOD 09/13/2024 1:41 PM EDT [facility] Total Protein 6.9 6.0 - 8.0 g/dL LAB CHEMISTRY METHOD 09/13/2024 1:41 PM [facility] Albumin 2.8(L) 3.2 - 5.0 g/dL LAB CHEMISTRY METHOD 09/13/2024 1:41 PM [facility] Total Bilirubin 0.2 0.0 - 1.4 mg/dL LAB CHEMISTRY METHOD 09/13/2024 1:41 PM [facility] Blood Venous blood specimen / Unknown Venipuncture / Unknown 09/13/2024 8:54 AM EDT 09/13/2024 10:34 AM EDT Erickson Melton MD LAB BLOOD ORDERABLES Final Result [facility] [address] [place] [address], * (ABNORMAL) Complete blood count (09/13/2024 8:54 AM EDT) WBC 7.6 4.8 - 10.8 K/mcL LAB HEMETOLOGY METHOD 09/13/2024 12:06 PM [facility] RBC 3.60(L) 3.80 - 4.80 M/mcL LAB HEMETOLOGY METHOD 09/13/2024 12:06 PM [facility] Hemoglobin 12.1 11.5 - 16.0 g/dL LAB HEMETOLOGY METHOD 09/13/2024 12:06 PM EDT [facility] Hematocrit 38.2 35.0 - 47.0 % LAB HEMETOLOGY METHOD 09/13/2024 12:06 PM [facility] MCV 107.0(H) 79.0 - 98.0 FL LAB HEMETOLOGY METHOD [facility]24 [facility] MCH 33.9(H) 27.0 - 32.0 pcg LAB HEMETOLOGY METHOD 09/13/2024 12:06 PM [facility] MCHC 31.7(L) 32.0 - 37.0 g/dL LAB HEMETOLOGY METHOD 09/13/2024 12:06 PM [facility] RDW 14.0 11.0 - 15.0 % LAB HEMETOLOGY METHOD 09/13/2024 12:06 PM [facility] Platelets 327 130 - 400 K/mcL LAB HEMETOLOGY METHOD 09/13/2024 12:06 PM [facility] MPV 11.0 7.0 - 11.0 FL LAB HEMETOLOGY METHOD 09/13/2024 12:06 PM [facility] NRBC 0.0 <1.0 % LAB HEMETOLOGY METHOD 09/13/2024 12:06 PM [facility] NRBC Absolute 0.00 <0.10 K/mcL LAB HEMETOLOGY METHOD 09/13/2024 12:06 PM [facility] Blood Venous blood specimen / Unknown Venipuncture / Unknown 09/13/2024 8:54 AM EDT 09/13/2024 10:34 AM EDT us Erickson Melton MD LAB BLOOD ORDERABLES Final Result [facility] [place] [facility] [address] [place] [address], documented in this encounter Visit Diagnoses Diagnosis [...] documented as of this encounter Care Teams Clutch Specialist Relationship Specialty Start Date End Date Erickson Melton MD [address] [place] [id number] PCP - General Internal Medicine 09/13/24 documented as of this encounter
--- OUTSIDE RECORDS SUMMARY | 2025-05-26 11:51 | XMS_ITS | Encounter Summary ---
Author Organization [facility] Address [address] [place] [address] Care Team Providers Care Appraiser Name Role Phone Erickson Melton MD Primary Care Provider +1- [phone] Encounter Details Date Type Department Care Team (Late st Contact Info) Description 11/28/2024 Lab Requisition [facility] - Main Lab [address] [facility] [place] [address] Erickson Melton MD [address] [place] [address] Pneumonia, unspecified organism; Anemia, unspecified Social History [...] care for your loved ones. For example, neonatal intensive care nurse or elderly care for an older adult? [...] mmol/L LAB CHEMISTRY METHOD 11/29/2024 7:09 AM [facility] Potassium 4.2 3.5 - 5.5 mmol/L LAB CHEMISTRY METHOD 11/29/2024 7:09 AM [facility] Chloride 103 96 - 110 mmol/L LAB CHEMISTRY METHOD 11/29/2024 7:09 AM [facility] CO2 29 21 - 32 mmol/L LAB CHEMISTRY METHOD 11/29/2024 7:09 AM [facility] Anion Gap 7 3 - 11 LAB CHEMISTRY METHOD 11/29/2024 7:09 AM [facility] Glucose 89 70 - 100 mg/dL LAB CHEMISTRY METHOD 11/29/2024 7:09 AM [facility] BUN 23 5 - 25 mg/dL LAB CHEMISTRY METHOD 11/29/2024 7:09 AM [facility] Creatinine 0.64 0.50 - 1.10 mg/dL LAB CHEMISTRY METHOD 11/29/2024 7:09 AM [facility] eGFR 99 >=60 mL/min/1. 73m2 LAB CHEMISTRY METHOD 11/29/2024 7:09 AM [facility] Comment:Calculation based on the Chronic Kidney Disease Epidemiology Collaboration (CKD-EPI) equation refit without adjustment for race. BUN/Creatinine Ratio 35.9 LAB CHEMISTRY METHOD 11/29/2024 7:09 AM [facility] Calcium 9.6 8.5 - 10.5 mg/dL LAB CHEMISTRY METHOD 11/29/2024 7:09 AM [facility] Blood Venous blood specimen / Unknown Venipuncture / Unknown 11/29/2024 5:44 AM EDT 11/29/2024 6:24 AM EDT us Erickson Melton MD LAB BLOOD ORDERABLES Final Result [facility] [address] [place] [address], * (ABNORMAL) Complete blood count (11/29/2024 5:44 AM EDT) WBC 3.9(L) 4.8 - 10.8 K/mcL LAB HEMETOLOGY METHOD 11/29/2024 6:54 AM EDT [facility] RBC 3.90 3.80 - 4.80 M/mcL LAB HEMETOLOGY METHOD 11/29/2024 6:54 AM EDT [facility] Hemoglobin 13.1 11.5 - 16.0 g/dL LAB HEMETOLOGY METHOD 11/29/2024 6:54 AM EDT [facility] Hematocrit 41.5 35.0 - 47.0 % LAB HEMETOLOGY METHOD 11/29/2024 6:54 AM EDT [facility] MCV 106.1(H) 79.0 - 98.0 FL LAB HEMETOLOGY METHOD 11/29/2024 6:54 AM EDT [facility] MCH 33.5(H) 27.0 - 32.0 pcg LAB HEMETOLOGY METHOD 11/29/2024 6:54 AM EDT [facility] MCHC 31.6(L) 32.0 - 37.0 g/dL LAB HEMETOLOGY METHOD 11/29/2024 6:54 AM EDT [facility] RDW 15.2(H) 11.0 - 15.0 % LAB HEMETOLOGY METHOD 11/29/2024 6:54 AM EDT [facility] Platelets 200 130 - 400 K/mcL LAB HEMETOLOGY METHOD 11/29/2024 6:54 AM EDT [facility] MPV 10.8 7.0 - 11.0 FL LAB HEMETOLOGY METHOD 11/29/2024 6:54 AM EDT [facility] NRBC 0.0 <1.0 % LAB HEMETOLOGY METHOD 11/29/2024 6:54 AM EDT [facility] NRBC Absolute 0.00 <0.10 K/mcL LAB HEMETOLOGY METHOD 11/29/2024 6:54 AM EDT [facility] Blood Venous blood specimen / Unknown Venipuncture / Unknown 11/29/2024 5:44 AM EDT 11/29/2024 6:27 AM EDT Erickson Melton MD LAB BLOOD ORDERABLES Final Result [facility] [address] [place] [address], documented in this encounter Visit Diagnoses Diagnosis Pneumonia, unspecified organism Anemia, unspecified documented in this encounter Additional Health Concerns Infection Onset Date Last Indicated Resolved Time C. difficile Rule-Out 01/13/2025 01/13/20252024 4:32 AM EDT C. difficile Rule-Out 01/13/2025 01/13/20252024 10:19 AM EDT C. difficile 01/13/2025 01/13/2025 02/06/2025 7:06 PM EDT documented as of this encounter Care Teams Appraiser Relationship Specialty Start Date End Date Erickson Melton MD [address] [place] [id number] PCP - General Internal Medicine 09/13/24 documented as of this encounter
--- OUTSIDE RECORDS SUMMARY | 2025-05-26 11:51 | XMS_ITS | Encounter Summary ---
Author Organization [facility] Address [address] [place] [address] Care Team Providers Care Dining Room Manager Name Role Phone Erickson Melton MD Primary Care Provider +1- [phone] Encounter Details Date Type Department Care Team (Late st Contact Info) Description 11/07/[address] [facility] - Main Lab [address] [facility] [place] [address] Erickson Melton MD [address] [place] [address] Anemia, unspecified; Pneumonia, unspecified organism Social History [...] for your loved ones. For example, child nurse or elderly care for an older [...] ORDERABLES Final Result [facility] [address] [place] [address], * (ABNORMAL) Complete blood count (11/08/2024 7:23 [...] Final Result [facility] [address] [place] [address], documented in this encounter Visit Diagnoses Diagnosis [...] documented as of this encounter Care Teams Dining Room Manager Relationship Specialty Start Date End Date Erickson Melton MD [address] [place] [address] PCP - General Internal Medicine 09/13/24 documented as of this encounter
--- OUTSIDE RECORDS SUMMARY | 2025-05-26 11:51 | XMS_ITS | Encounter Summary ---
Author Organization [facility] Address [address] [place] [address] Care Team Providers Care Escort Vehicle Driver Name Role Phone Erickson Melton MD Primary Care Provider +1- [phone] Encounter Details Date Type Department Care Team (Late st Contact Info) Description 10/26/2024 Lab Requisition [facility] - Main Lab 299 [facility] [place] [address] Erickson Melton MD [address] [place] [address] Diarrhea, unspecified Social History Tobacco Use Types [...] your loved ones. For example, child adolescent psychiatrist or elderly care for an older adult? [...] Positive( A) Negative 10/26/2024 4:33 PM EDT [facility] C difficile Toxins A+B, EIA Positive( AA) Negative 10/26/2024 4:33 PM EDT [facility] Comment: CRITICAL RESULT POSITIVE FOR TOXIN PRODUCING CLOSTRIDIOIDES DIFFICILE, NO ADDITIONAL TESTING IS NECESSARY. REPEAT SAMPLES SHOULD NOT BE SUBMITTED FOR TEST OF CURE. Stool Rectum structure / Unknown 10/26/2024 10/26/2024 3:36 PM EDT us Erickson Melton MD LAB MICROBIOLOGY - GENERAL ORDERABLES Final Result [facility] [address] [place] [address], documented in this encounter Visit Diagnoses Diagnosis [...] documented as of this encounter Care Teams Escort Vehicle Driver Relationship Specialty Start Date End Date Erickson Melton MD [address] [place] [address] PCP - General Internal Medicine 09/13/24 documented as of this encounter
--- OUTSIDE RECORDS SUMMARY | 2025-05-26 11:51 | XMS_ITS | Encounter Summary ---
Author Organization [facility] Address [address] [place] [address] Care Team Providers Care Hydraulic Tester Name Role Phone Erickson Melton MD Primary Care Provider +1- [phone] Encounter Details Date Type Department Care Team (Late st Contact Info) Description 11/14/2024 Lab Requisition [facility] - Main Lab 299 [facility] [place] [address] Erickson Melton MD [address] [place] [address] Pneumonia, unspecified organism; Anemia, unspecified Social History [...] your loved ones. For example, early childhood or elderly care for an [...] mmol/L LAB CHEMISTRY METHOD 11/15/2024 11:23 AM [facility] Potassium 4.3 3.5 - 5.5 mmol/L LAB CHEMISTRY METHOD 11/15/2024 11:23 AM [facility] Chloride 103 96 - 110 mmol/L LAB CHEMISTRY METHOD 11/15/2024 11:23 AM [facility] CO2 30 21 - 32 mmol/L LAB CHEMISTRY METHOD 11/15/2024 11:23 AM [facility] Anion Gap 5 3 - 11 LAB CHEMISTRY METHOD 11/15/2024 11:23 AM [facility] Glucose 68(L) 70 - 100 mg/dL LAB CHEMISTRY METHOD 11/15/2024 11:23 AM [facility] BUN 26(H) 5 - 25 mg/dL LAB CHEMISTRY METHOD 11/15/2024 11:23 AM [facility] Creatinine 0.66 0.50 - 1.10 mg/dL LAB CHEMISTRY METHOD 11/15/2024 11:23 AM [facility] eGFR 98 >=60 mL/min/1. 73m2 LAB CHEMISTRY METHOD 11/15/2024 11:23 AM [facility] Comment:Calculation based on the Chronic Kidney Disease Epidemiology Collaboration (CKD-EPI) equation refit without adjustment for race. BUN/Creatinine Ratio 39.4 LAB CHEMISTRY METHOD 11/15/2024 11:23 AM [facility] Calcium 8.8 8.5 - 10.5 mg/dL LAB CHEMISTRY METHOD 11/15/2024 11:23 AM [facility] Blood Venous blood specimen / Unknown Venipuncture / Unknown 11/15/2024 8:04 AM EDT 11/15/2024 10:29 AM EDT Erickson Melton MD LAB BLOOD ORDERABLES Final Result [facility] [address] [place] [address], * (ABNORMAL) Complete blood count (11/15/2024 8:04 AM EDT) WBC 5.4 4.8 - 10.8 K/mcL LAB HEMETOLOGY METHOD 11/15/2024 11:00 AM EDT [facility] RBC 3.80 3.80 - 4.80 M/mcL LAB HEMETOLOGY METHOD [facility] Hemoglobin 13.0 11.5 - 16.0 g/dL LAB HEMETOLOGY METHOD 11/15/2024 11:00 AM [facility] Hematocrit 40.9 35.0 - 47.0 % LAB HEMETOLOGY METHOD 11/15/2024 11:00 AM [facility] MCV 107.3(H) 79.0 - 98.0 FL LAB HEMETOLOGY METHOD 11/15/2024 11:00 AM [facility] MCH 34.1(H) 27.0 - 32.0 pcg LAB HEMETOLOGY METHOD 11/15/2024 11:00 AM [facility] MCHC 31.8(L) 32.0 - 37.0 g/dL LAB HEMETOLOGY METHOD 11/15/2024 11:00 AM [facility] RDW 16.0(H) 11.0 - 15.0 % LAB HEMETOLOGY METHOD 11/15/2024 11:00 AM [facility] Platelets 225 130 - 400 K/mcL LAB HEMETOLOGY METHOD 11/15/2024 11:00 AM [facility] MPV 11.1(H) [...] [facility] [address] [place] [address], documented in this encounter Visit Diagnoses Diagnosis [...] documented as of this encounter Care Teams Hydraulic Tester Relationship Specialty Start Date End Date Erickson Melton MD [address] [place] [id number] PCP - General Internal Medicine 09/13/24 documented as of this encounter
--- OUTSIDE RECORDS SUMMARY | 2025-05-26 11:51 | XMS_ITS | Encounter Summary ---
Author Organization [facility] Address [address] [place] [address] Care Team Providers Care Long Wall Shear Operator Name Role Phone Erickson Melton MD Primary Care Provider +1- [phone] Encounter Details Date Type Department Care Team (Late st Contact Info) Description 10/03/2024 Lab Requisition [facility] - Main Lab [address] [facility] [place] [address] Erickson Melton MD [address] [place] [address] Anemia, unspecified; Hypothyroidism, unspecified; Other seizures (CMS/HCC [...] documented as of this encounter Care Teams Long Wall Shear Operator Relationship Specialty Start Date End Date Erickson Melton MD [address] [place] [address] PCP - General Internal Medicine 09/13/24 documented as of this encounter
--- OUTSIDE RECORDS SUMMARY | 2025-05-26 11:51 | XMS_ITS | Encounter Summary ---
Author Organization [facility] Address [address] [place] [address] Care Team Providers Care Frame Table Operator Helper Name Role Phone Erickson Melton MD Primary Care Provider +1- [phone] Encounter Details Date Type Department Care Team (Late st Contact Info) Description 12/12/2024 Lab Requisition [facility] - Main Lab [address] [facility] [place] [address] Erickson Melton MD [address] [place] [address] Pneumonia, unspecified organism; Anemia, unspecified Social History [...] your loved ones. For example, early childhood services coordinator or elderly care for an older [...] documented as of this encounter Care Teams Frame Table Operator Helper Relationship Specialty Start Date End Date Erickson Melton MD [address] [place] [address] PCP - General Internal Medicine 09/13/24 documented as of this encounter
--- OUTSIDE RECORDS SUMMARY | 2025-05-26 11:51 | XMS_ITS | Encounter Summary ---
Author Organization [facility] Address [address] [place] [address] Care Team Providers Care Record Tester Name Role Phone Erickson Melton MD Primary Care Provider +1- [phone] Encounter Details Date Type Department Care Team (Late st Contact Info) Description 09/26/2024 Lab Requisition [facility] - Main Lab 299 [facility] [place] [address] Erickson Melton MD [address] [place] [address] Anemia, unspecified; Hypothyroidism, unspecified; Other seizures (CMS/HCC [...] mmol/L LAB CHEMISTRY METHOD 09/27/2024 8:30 AM [facility] Potassium 3.9 3.5 - 5.5 mmol/L LAB CHEMISTRY METHOD 09/27/2024 8:30 AM [facility] Chloride 102 96 - 110 mmol/L LAB CHEMISTRY METHOD 09/27/2024 8:30 AM [facility] CO2 37(H) 21 - 32 mmol/L LAB CHEMISTRY METHOD 09/27/2024 8:30 AM [facility] Anion Gap 3 3 - 11 LAB CHEMISTRY METHOD 09/27/2024 8:30 AM [facility] Glucose 108(H) 70 - 100 mg/dL LAB CHEMISTRY METHOD 09/27/2024 8:30 AM [facility] BUN 18 5 - 25 mg/dL LAB CHEMISTRY METHOD 09/27/2024 8:30 AM [facility] Creatinine 0.67 0.50 - 1.10 mg/dL LAB CHEMISTRY METHOD 09/27/2024 8:30 AM [facility] eGFR 98 >=60 mL/min/1. 73m2 LAB CHEMISTRY METHOD 09/27/2024 8:30 AM [facility] Comment:Calculation based on the Chronic Kidney Disease Epidemiology Collaboration (CKD-EPI) equation refit without adjustment for race. BUN/Creatinine Ratio 26.9 LAB CHEMISTRY METHOD 09/27/2024 8:30 AM [facility] Calcium 8.7 8.5 - 10.5 mg/dL LAB CHEMISTRY METHOD 09/27/2024 8:30 AM [facility] Blood Venous blood specimen / Unknown Venipuncture / Unknown 09/27/2024 7:12 AM EDT 09/27/2024 8:01 AM EDT us Erickson Melton MD LAB BLOOD ORDERABLES Final Result [facility] [address] [place] [address], * (ABNORMAL) Complete blood count (09/27/2024 7:12 AM EDT) WBC 7.2 4.8 - 10.8 K/mcL LAB HEMETOLOGY METHOD 09/27/2024 8:09 AM EDT [facility] RBC 3.20(L) 3.80 - 4.80 M/mcL LAB HEMETOLOGY METHOD 09/27/2024 8:09 AM [facility] Hemoglobin 10.9(L) 11.5 - 16.0 g/dL LAB HEMETOLOGY METHOD 09/27/2024 8:09 AM [facility] Hematocrit 35.3 35.0 - 47.0 % LAB HEMETOLOGY METHOD 09/27/2024 8:09 AM [facility] MCV 109.6(H) 79.0 - 98.0 FL LAB HEMETOLOGY METHOD 09/27/2024 8:09 AM [facility] MCH 33.9(H) 27.0 - 32.0 pcg LAB HEMETOLOGY METHOD 09/27/2024 8:09 AM [facility] MCHC 30.9(L) 32.0 - 37.0 g/dL LAB HEMETOLOGY METHOD 09/27/2024 8:09 AM [facility] RDW 16.3(H) 11.0 - 15.0 % LAB HEMETOLOGY METHOD 09/27/2024 8:09 AM [facility] Platelets 268 130 - 400 K/mcL LAB HEMETOLOGY METHOD 09/27/2024 8:09 AM T [facility] MPV 10.7 7.0 - 11.0 FL LAB HEMETOLOGY METHOD 09/27/2024 8:09 AM EDT [facility] NRBC 0.0 <1.0 % LAB HEMETOLOGY METHOD 09/27/2024 8:09 AM EDT [facility] NRBC Absolute 0.00 <0.10 K/mcL LAB HEMETOLOGY METHOD 09/27/2024 8:09 AM EDT [facility] Blood Venous blood specimen / Unknown Venipuncture / Unknown 09/27/2024 7:12 AM EDT 09/27/2024 8:01 AM EDT Erickson Melton MD LAB BLOOD ORDERABLES Final Result [facility] [address] [place] [address], documented in this encounter Visit Diagnoses Diagnosis Anemia, unspecified Hypothyroidism, unspecified Other seizures (CMS/HCC V24, CMS/HCC V28) documented in this encounter Additional Health Concerns Infection Onset Date Last Indicated Resolved Time C. difficile Comment:Tested (+) at [facility]; started on PO ABT 09/29/24 NL [...] documented as of this encounter Care Teams Record Tester Relationship Specialty Start Date End Date Erickson Melton MD [address] [place] [id number] PCP - General Internal Medicine 09/13/24 documented as of this encounter
--- OUTSIDE RECORDS SUMMARY | 2025-06-05 19:00 | XMS_ITS | Clinical Summary ---
Author Organization Unknown Care Team Providers Care System Specialist Name Role Phone PO , WNADA Unavailable Unavailable CHELSEA PT, MARIEL Unavailable Unavailable SARIAH CRAWLEY REST ROOM MATRON, HEBER Unavailable Unavabalwinder MACDONALD REST ROOM MATRON, AGAPITO Unavailable Unavailable ENOC RN, BINH Unavailable Unavailable LIBERTY RN, MILADIS Unavailable Unavailable Payers Payer Name Policy Type Policy Number Effective Date Expira tion Date MEDICARE - [facility] [place] - PD [id number] Problems Condition Name Condition Details Condition Category Status Onset Date Resolution Date Last Treatment Date Treating Clinician Comments 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 Active 07-06 00:00: 00 HYPOTHYROIDI SM, UNSPECIFIED Active 07-06 00:00: 00 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, MODERATE, WITH ANXIETY Active 07-06 00:00: 00 DEM IN OTHER DIS CLASSD ELSWHR, MOD, WITH OTHER BEH DISTURB Active 07-06 00:00: 00 DEM IN OTHER DIS CLASSD ELSWHR, MODERATE, WITH MOOD DISTURB Active 07-06 00:00: 00 CHRONIC RESPIRATORY FAILURE WITH HYPOXIA Active 07-06 00:00: 00 UNSPECIFIED PROTEIN-MILLER REMI MALNUTRITION Active 07-06 00:00: 00 GASTROSTOMY INFECTION Active 07-06 00:00: 00 ESSENTIAL (PRIMARY) HYPERTENSION Active 07-06 00:00: 00 DOWN SYNDROME, UNSPECIFIED Active 07-06 00:00: 00 GASTRO-ESOPH AGEAL REFLUX DISEASE WITHOUT ESOPHAGITIS Active 07-06 00:00: 00 ANEMIA, UNSPECIFIED Active 07-06 00:00: 00 OTHER HYPOTENSION Active 07-06 00:00: 00 DYSPHASIA FOLLOWING CEREBRAL INFARCTION Active 07-06 00:00: 00 HYPERLIPIDEM IA, UNSPECIFIED Active 07-06 00:00: 00 OTHER SPECIFIED DISEASES OF BLOOD AND BLOOD-FORMIN G ORGANS Active 07-06 00:00: 00 SPINAL STENOSIS, OCCIPITO-ANDREA ANTO-AXIAL REGION Active 07-06 00:00: 00 CATARACT EXTRACTION STATUS, LEFT EYE Active 07-06 00:00: 00 DEPENDENCE ON WHEELCHAIR Active 07-06 00:00: 00 RESIDENTIAL (CURRENT) USE OF ASPIRIN Active 07-06 00:00: 00 Allergies, Adverse Reactions, Alerts Allergy Name Allergy Type Status Severity Reaction(s) Onset Date Inactive Date Treating Clinician Comments AMOXICILLIN Propensity to adverse reactions Active 2024-07 18:36: 39 SULFAMETHOXA ZOLE-TRIMETH OPRIM Propensity to adverse reactions Active 2024-07 18:37: 03 CLINDAMYCIN HCL Propensity to adverse reactions Active 2024-07 18:37: 13 Medications Ordered Medication Name Filled Medication Name Start Date Stop Date Current Medication? Ordering Clinician Indication Dosage Frequency Signature (SIG) Comments Components Acidophilus capsule 12-08 00:00: 00 04-05 23:59 :00 No [id number] 1 capsule DAILY 1 capsule DAILY (route: oral) Alternate Route: G-TUBE. Med Classific ation: Gastroint estinal Therapy Agents Pain Relief (acetaminop hen) 160 mg/5 mL oral liquid 12-08 00:00: 04-05 23:59 :00 No [id number] 640 mg EVERY 4 HOURS 640 mg EVERY 4 HOURS (route: oral) Alternate Route: G-TUBE. Med Classific ation: Analgesic , Anti-infl ammatory or Antipyret ic Aspirin Childrens 81 mg chewable tablet 12-08 00:00: 00 04-05 23:59 :00 No [id number] 1 tablet DAILY 1 tablet DAILY (route: oral) Alternate Route: G-TUBE. Med Classific ation: Hematolog ical Agents Cetaphil Moisturizin g lotion 12-08 00:00: 04-05 23:59 :00 No [id number] 1 mL NEEDED 1 mL NEEDED (route: topical) Med Classific ation: Dermatolo gical Dulcolax (magnesium hydroxide) 400 mg/5 mL oral suspension 12-08 00:00: 00 04-05 23:59 :00 No [id number] 30 mL DAILY 30 mL DAILY (route: oral) Alternate Route: G-TUBE. Med Classific ation: Gastroint estinal Therapy Agents Fleet Enema 19 gram-7 gram/118 mL 12-08 00:00: 00 04-05 23:59 :00 No [id number] 19 g DAILY 19 g DAILY (route: rectal) Med Classific ation: Gastroint estinal Therapy Agents fluticasone propionate 50 mcg/actuati on nasal spray,suspe nsion 12-08 00:00: 00 03-03 23:59 :00 No [id number] 1 spray DAILY 1 spray DAILY (route: nasal) Med Classific ation: Respirato ry Therapy Agents gabapentin 100 mg capsule 12-08 00:00: 03-03 23:59 :00 No [id number] 1 capsule BEDTIME 1 capsule BEDTIME (route: oral) Alternate Route: G-TUBE. Med Classific ation: Central Nervous System Agents ipratropium 0.5 mg-albutero l 2.5 mg/2.5 mL solution for nebulizatio n 12-08 00:00: 04-05 23:59 :00 No [id number] 3 mg NEEDED 3 mg NEEDED (route: inhalation ) Med Classific ation: Respirato ry Therapy Agents levothyroxi ne 137 mcg tablet 12-08 00:00: 00 04-05 23:59 :00 No [id number] 1 tablet DAILY 1 tablet DAILY (route: oral) Alternate Route: G-TUBE. Med Classific ation: Endocrine midodrine 5 mg tablet 12-08 00:00: 00 04-05 23:59 :00 No [id number] 2 tablet 3 TIMES DAILY 2 tablet 3 TIMES DAILY (route: oral) Alternate Route: G-TUBE. Med Classific ation: Cardiovas cular Therapy Agents oxcarbazepi ne 150 mg tablet 12-08 00:00: 00 03-03 23:59 :00 No [id number] 1 tablet 2 TIMES DAILY 1 tablet 2 TIMES DAILY (route: oral) Alternate Route: G-TUBE. Med Classific ation: Central Nervous System Agents Proctosol HC 2.5 % topical cream perineal applicator 12-08 00:00: 00 04-05 23:59 :00 No [id number] 1 applica tor 2 TIMES DAILY 1 applicator 2 TIMES DAILY (route: topical) Med Classific ation: Anorectal Preparati ons vancomycin 50 mg/mL oral solution 12-08 00:00: 00 01-31 00:00 :00 No [id number] 2.5 mL EVERY OTHER DAY 2.5 mL EVERY OTHER DAY (route: oral) Alternate Route: G-TUBE. Med Classific ation: Anti-Infe ctive Agents zinc oxide topical ointment 02-06 00:00: 00 04-05 23:59 :00 No [id number] Per instruc tions NEEDED Per instructio ns NEEDED (route: topical) Med Classific ation: Dermatolo gical Clotrimazol e AF 1 % topical cream 14 00:00: 00 04-05 23:59 :00 No [id number] Per instruc tions 2 TIMES DAILY Per instructio ns 2 TIMES DAILY (route: topical) Med Classific ation: Dermatolo gical oxcarbazepi ne 150 mg tablet 03-03 00:00: 00 04-05 23:59 :00 No [id number] 75 mg 2 TIMES DAILY 75 mg 2 TIMES DAILY (route: oral) Med Classific ation: Central Nervous System Agents trazodone 50 mg tablet 03-03 00:00: 00 04-05 23:59 :00 No [id number] 1 tablet 2 TIMES DAILY 1 tablet 2 TIMES DAILY (route: oral) Med Classific ation: Central Nervous System Agents acetaminoph en 160 mg/5 mL (5 mL) oral solution 2024-07 0 00:00: 00 Yes [id number] 650 mg NEEDED 650 mg NEEDED (route: oral) Med Classific ation: Analgesic , Anti-infl ammatory or Antipyret ic aspirin 81 mg tablet 2024-07 0-04 00:00: 00 Yes [id number] 1 tablet DAILY 1 tablet DAILY (route: oral) Med Classific ation: Hematolog ical Agents levothyroxi ne 137 mcg tablet 2024-07 0 00:00: 00 Yes [id number] 1 tablet DAILY 1 tablet DAILY (route: oral) Med Classific ation: Endocrine midodrine 10 mg tablet 2024-07 0 00:00: 00 Yes [id number] 1 tablet 3 TIMES DAILY 1 tablet 3 TIMES DAILY (route: oral) Med Classific ation: Cardiovas cular Therapy Agents oxcarbazepi ne 150 mg tablet 2024-07 0 00:00: 00 Yes [id number] 1 tablet 2 TIMES DAILY 1 tablet 2 TIMES DAILY (route: oral) Med Classific ation: Central Nervous System Agents trazodone 50 mg tablet 2024-07 0 00:00: 00 Yes [id number] 1 tablet BEDTIME 1 tablet BEDTIME (route: oral) Med Classific ation: Central Nervous System Agents Lactobacill us acidophilus 500 million cell capsule 12-06 00:00: 00 Yes [id number] 1 capsule 3 TIMES DAILY 1 capsule 3 TIMES DAILY (route: oral) Med Classific ation: Gastroint estinal Therapy Agents Immunizations Ordered Immunization Name Filled Immunization Name Date Status Comments Refusal Reason INFLUENZA, TIV (INACTIVATED) 2024-04-13 00:00:00 Vital Signs Vital Name Observation Time Observation Value Commen ts Temperature 2025-05-16 13:55:00.000 98.4 [degF] Temperature 2025-05-01 09:26:00.000 98.2 [degF] Temperature 2025-04-24 12:09:00.000 98.1 [degF] Temperature 2025-04-18 15:34:00.000 97.9 [degF] Temperature 2025-04-14 09:30:00.000 97.3 [degF] Temperature 2025-04-12 10:39:00.000 96.8 [degF] Temperature 2025-04-08 12:34:00.000 97.6 [degF] BMI (%) 2025-04-08 17:56:51.000 26 kg/m2 Height 2025-04-08 17:50:39.000 47 [in_us] Pulse 2025-05-16 13:55:00.000 56 /min Pulse 2025-05-01 09:26:00.000 60 /min Pulse 2025-04-24 12:09:00.000 54 /min Pulse 2025-04-18 15:34:00.000 62 /min Pulse 2025-04-14 09:30:00.000 66 /min Pulse 2025-04-12 10:39:00.000 62 /min Pulse 2025-04-11 13:38:00.000 64 /min Pulse 2025-04-08 12:34:00.000 62 /min O2 Saturation (%) 2025-05-01 09:26:00.000 98 % O2 Saturation (%) 2025-04-08 12:34:00.000 96 % Respirations 2025-05-16 13:55:00.000 18 /min Respirations 2025-05-01 09:26:00.000 20 /min Respirations 2025-04-24 12:09:00.000 18 /min Respirations 2025-04-18 15:34:00.000 20 /min Respirations 2025-04-14 09:30:00.000 20 /min Respirations 2025-04-12 10:39:00.000 20 /min Respirations 2025-04-11 10:10:00.000 20 /min Respirations 2025-04-08 12:34:00.000 16 /min Weight (lbs) 2025-05-01 09:26:00.000 68 [lb_av] Weight (lbs) 2025-04-08 17:56:51.000 84 [lb_av] Systolic Blood Pressure 2025-05-16 13:55:00.000 96 mm[ Hg] Systolic Blood Pressure 2025-05-08 12:56:00.000 100 mm [Hg] Systolic Blood Pressure 2025-05-01 09:26:00.000 108 mm [Hg] Systolic Blood Pressure 2025-04-24 12:09:00.000 92 mm[ Hg] Systolic Blood Pressure 2025-04-18 15:34:00.000 94 mm[ Hg] Systolic Blood Pressure 2025-04-14 09:30:00.000 96 mm[ Hg] Systolic Blood Pressure 2025-04-11 10:07:00.000 96 mm[ Hg] Systolic Blood Pressure 2025-04-08 12:34:00.000 90 mm[ Hg] Diastolic Blood Pressure 2025-05-16 13:55:00.000 50 mm [Hg] Diastolic Blood Pressure 2025-05-08 12:56:00.000 60 mm [Hg] Diastolic Blood Pressure 2025-05-01 09:26:00.000 68 mm [Hg] Diastolic Blood Pressure 2025-04-24 12:09:00.000 59 mm [Hg] Diastolic Blood Pressure 2025-04-18 15:34:00.000 60 mm [Hg] Diastolic Blood Pressure 2025-04-14 09:30:00.000 64 mm [Hg] Diastolic Blood Pressure 2025-04-11 10:07:00.000 60 mm [Hg] Diastolic Blood Pressure 2025-04-08 12:34:00.000 62 mm [Hg] Plan of Treatment Planned Activity [...] Scheduled Test SKILLED NU RSE TO PROVIDE TEACHING/REINFORCEMENT RELATED TO URINARY INCONTINENCE. [code = SKILLED NURSE TO PROVIDE TEACHING/REINFORCEMENT RELATED TO URINARY INCONTINENCE.] Future Scheduled Test SKILLED NU RSE TO ASSESS ANXIETY AND PROVIDE ASSISTANCE TO PATIENT FOR UNDERSTANDING AND MANAGEMENT OF FEELINGS. [code = SKILLED NURSE TO ASSESS ANXIETY AND PROVIDE ASSISTANCE TO PATIENT FOR UNDERSTANDING AND MANAGEMENT OF FEELINGS.] Future Scheduled Test SKILLED NU RSE MAY COLLECT URINE SAMPLE FOR URINE REAGENT STRIP TESTING AND/OR URINALYSIS WITH C S 1-3 PRN IF INDICATED FOR SIGNS AND SYMPTOMS OF UTI. IF REAGENT STRIP TEST IS POSITIVE FOR UTI, SKILLED NURSE TO TAKE URINE SAMPLE TO LAB FOR URINE C S AND REPORT RESULTS TO PHYSICIAN. [code = SKILLED NURSE MAY COLLECT URINE SAMPLE FOR URINE REAGENT STRIP TESTING AND/OR URINALYSIS WITH C S 1-3 PRN IF INDICATED FOR SIGNS AND SYMPTOMS OF UTI. IF REAGENT STRIP TEST IS POSITIVE FOR UTI, SKILLED NURSE TO TAKE URINE SAMPLE TO LAB FOR URINE C S AND REPORT RESULTS TO PHYSICIAN.] Future Scheduled Test SKILLED NU RSE FOR INSTRUCTION/ REINFORCEMENT OF NEEDS RELATED TO NUTRITION/HYDRATION. [code = SKILLED NURSE FOR INSTRUCTION/ REINFORCEMENT OF NEEDS RELATED TO NUTRITION/HYDRATION.] Future Scheduled Test SKILLED NU RSE FOR TEACHING REGARDING THE ADMINISTRATION OF ENTERAL NUTRITION OSMOLITE 1.2 W 250CC H20 FLUSH 4X DAY INCLUDING TEACHING ON ASPIRATION PRECAUTIONS, CHANGE DRAIN SPONGE DAILY AND PRN FOR LOOSENED [code = SKILLED NURSE FOR TEACHING REGARDING THE ADMINISTRATION OF ENTERAL NUTRITION OSMOLITE 1.2 W 250CC H20 FLUSH 4X DAY INCLUDING TEACHING ON ASPIRATION PRECAUTIONS, CHANGE DRAIN SPONGE DAILY AND PRN FOR LOOSENED] Future Scheduled Test SKILLED NU RSE FOR [...] TEACHING ON MANAGEMENT OF RESPIRATORY FAILURE WITH HYPOXIA DISEASE PROCESS. [code = SKILLED NURSE FOR O/A OF RESPIRATORY SYSTEM TO IDENTIFY CHANGES ASSOCIATED WITH EXACERBATION AND TO PROVIDE SKILLED TEACHING ON MANAGEMENT OF RESPIRATORY FAILURE WITH HYPOXIA DISEASE PROCESS.] Future Scheduled Test SKILLED NU RSE FOR O/A AND SKILLED TEACHING RELATED TO SIGNS AND SYMPTOMS OF INFECTION AND INFECTION CONTROL MEASURES. [code = SKILLED NURSE FOR O/A AND SKILLED TEACHING RELATED TO SIGNS AND SYMPTOMS OF INFECTION AND INFECTION CONTROL MEASURES.] Future Scheduled Test SKILLED NU RSE TO INSTRUCT/REINFORCE MEASURES TO PREVENT BARRIERS TO CARE. [code = SKILLED NURSE TO INSTRUCT/REINFORCE MEASURES TO PREVENT BARRIERS TO CARE.] Future Scheduled Test SKILLED NU RSE FOR O/A OF SELF-CARE DEFICITS AND TO PROVIDE TEACHING RELATED TO SAFE PROVISION OF ADLS. [code = SKILLED NURSE FOR O/A OF SELF-CARE DEFICITS AND TO PROVIDE TEACHING RELATED TO SAFE PROVISION OF ADLS.] Future Scheduled Test SKILLED NU RSE TO ASSESS PATIENT S PSYCHOSOCIAL STATUS TO IDENTIFY POTENTIAL ISSUES THAT MAY COMPLICATE THE PROVISION OF THE PLAN OF CARE INCLUDING THE PATIENT S ABILITY TO ACCESS COMMUNITY RESOURCES AND PSYCHOSOCIAL SUPPORT SERVICES. [code = SKILLED NURSE TO ASSESS PATIENT S PSYCHOSOCIAL STATUS TO IDENTIFY POTENTIAL ISSUES THAT MAY COMPLICATE THE PROVISION OF THE PLAN OF CARE INCLUDING THE PATIENT S ABILITY TO ACCESS COMMUNITY RESOURCES AND PSYCHOSOCIAL SUPPORT SERVICES.] Future Scheduled Test SKILLED NU RSE FOR O/A AND TEACHING OF ENDOCRINE SYSTEM TO IDENTIFY CHANGES ASSOCIATED WITH EXACERBATION OF HYPOTHYROIDISM FOR EARLY INTERVENTION OF COMPLICATIONS. [code = SKILLED NURSE FOR O/A AND TEACHING OF ENDOCRINE SYSTEM TO IDENTIFY CHANGES ASSOCIATED WITH EXACERBATION OF HYPOTHYROIDISM FOR EARLY INTERVENTION OF COMPLICATIONS.] Future Scheduled Test PHYSICAL T HERAPIST TO EVALUATE PATIENT FOR STRENGTHENING [code = PHYSICAL THERAPIST TO EVALUATE PATIENT FOR STRENGTHENING] Future Scheduled Test SKILLED NU RSE TO INSTRUCT ON SAFETY MEASURES TO PREVENT INJURY SECONDARY TO SEIZURE DISORDER/IMPAIRED NEUROLOGICAL STATUS. [code = SKILLED NURSE TO INSTRUCT ON SAFETY MEASURES TO PREVENT INJURY SECONDARY TO SEIZURE DISORDER/IMPAIRED NEUROLOGICAL STATUS.] Future Scheduled Test SKILLED NU RSE TO PROVIDE TEACHING ON SIGNS AND SYMPTOMS AND MANAGEMENT OF HYPERTENSION. [code = SKILLED NURSE TO PROVIDE TEACHING ON SIGNS AND SYMPTOMS AND MANAGEMENT OF HYPERTENSION.] Future Scheduled Test SKILLED NU RSE FOR O/A AND SKILLED TEACHING RELATED TO ALTERED SKIN INTEGRITY GTUBE SITE [code = SKILLED NURSE FOR O/A AND SKILLED TEACHING RELATED TO ALTERED SKIN INTEGRITY GTUBE SITE] Future Scheduled Test SKILLED NU RSE FOR OBSERVATION AND ASSESSMENT TO IDENTIFY CHANGES ASSOCIATED WITH DEMENTIA AND TEACHING RELATED TO SAFETY MEASURES TO PREVENT INJURY, ELOPEMENT RISKS, BEHAVIOR CHANGES, ACTIVITIES, AND ENVIRONMENTAL CHANGES ALL SECONDARY TO IMPAIRED COGNITIVE STATUS. [code = SKILLED NURSE FOR OBSERVATION AND ASSESSMENT TO IDENTIFY CHANGES ASSOCIATED WITH DEMENTIA AND TEACHING RELATED TO SAFETY MEASURES [...] HYPOTENSION] Future Scheduled Test SKILLED NU RSE TO INSTRUCT PATIENT/CAREGIVER ON WARNING SIGNS OF CVA, RISK FACTORS, AND METHODS TO MANAGE FUELS SALES REPRESENTATIVE EFFECTS OF CVA. [code = SKILLED NURSE TO INSTRUCT PATIENT/CAREGIVER ON WARNING SIGNS OF CVA, RISK FACTORS, AND METHODS TO MANAGE FUELS SALES REPRESENTATIVE EFFECTS OF CVA.] Future Scheduled Test SKILLED NU RSE FOR O/A AND SKILLED TEACHING RELATED TO SIGNS AND SYMPTOMS AND MANAGEMENT OF ANEMIA. [code = SKILLED NURSE FOR O/A AND SKILLED TEACHING RELATED TO SIGNS AND SYMPTOMS AND MANAGEMENT OF ANEMIA.] Future Scheduled Test SKILLED NU RSE TO INSTRUCT PATIENT/CAREGIVER ON PREVENTION OF SEPSIS, AND SIGNS AND SYMPTOMS OF SEPSIS TO REPORT. [code = SKILLED NURSE TO INSTRUCT PATIENT/CAREGIVER ON PREVENTION OF SEPSIS, AND SIGNS AND SYMPTOMS OF SEPSIS TO REPORT.] Future Scheduled Test PATIENT NARVAEZ S A [...] MAINTAIN SITUATIONAL AWARENESS AND WILL NOTIFY CLINICAL EMERGENCY SPECIALIST AND PHYSICIAN/PROVIDER WITH ANY CHANGE IN CONDITION. [code = SKILLED NURSE TO PERFORM ENVIRONMENTAL SAFETY RISK ASSESSMENT AND FALL RISK ASSESSMENT AND PROVIDE INSTRUCTION TO IMPLEMENT ENVIRONMENTAL SAFETY AND FALL PREVENTION STRATEGIES THROUGHOUT THE CERTIFICATION PERIOD. SKILLED NURSE WILL MAINTAIN SITUATIONAL AWARENESS AND WILL NOTIFY CLINICAL EMERGENCY SPECIALIST AND PHYSICIAN/PROVIDER WITH ANY CHANGE IN CONDITION.] [...] ANY CONCERNS.] Future Scheduled Test PHYSICAL T HERAPY TO EVALUATE AND TREAT. PHYSICAL THERAPY EVALUATION PERFORMED. NO ADDITIONAL VISITS REQUIRED. PHYSICAL THERAPY EVALUATION ONLY (04/12/25) PATIENT IS A 65 YO FEMALE WITH PHYSICAL THERAPY REFERRAL AFTER REHOSPITALIZATION ON 04/06/25 DUE TO SEIZURE IN LONG-TERM, WHILE IN HOSPITAL ER PATIENT DEMO TONIC CLONIC SEIZURE. PMH: ANEMIA, DYSPHAGIA, CHRONIC RESPIRATORY FAILURE, DOWN SYNDROME, HYPOTHYROID, HYPOTENSION, HLD, CATARACTS BL, ASP PNA, DEMENTIA W/ BEHAVIORAL DISTURBANCES, HYPOXIA, SEIZURES, C-DIFF, G TUBE LEAKING. FALL HISTORY: NO RECENT FALLS REPORTED PLOF: PATIENT LIVES IN LONG-TERM WITH 24/7 CARE. PATIENT MOSTLY WHEELCHAIR BOUND AND ABLE TO AMB SHORT DISTANCES WITH HANDHELD ASSIST SINCE 12/18/24. CLOF: PATIENT IS ALERT, NON-VERBAL FOR MOST OF VISIT. VISIT COMPLETED WITH [facility] LONG-TERM STAFF MEMBER PRESENT. PATIENT HAS A 24/7 DRIP G-TUBE. DME: W/C, HOSPITAL BED, BED SIDE COMMODE, SHOWER CHAIR, GRAB BARS PATIENT UNABLE TO SELF PROPEL WHEELCHAIR. UNABLE TO FORMALLY MANUAL MUSCLE TEST PATIENT UNABLE TO FOLLOW COMMANDS. HOWEVER BLES DEMO BILAT LE ROM WFL AND BILAT LE STRENGTH AT LEAST 3+/5. PATIENT RESISTANT TO FOLLOWING THIS THERAPIST'S COMMANDS WITH ATTEMPTING TRANSFERS. NANCIE MCGEE LONG-TERM STAFF REPORTS PATIENT RELUCTANT TO FOLLOW COMMANDS FROM UNKNOWN PERSONS AND THAT PATIENT HAS BEHAVIORAL ISSUES. WITH ENCOURAGEMENT FROM [facility], PATIENT COMPLETED SIT ->STAND FROM WHEELCHAIR WITH PRECISION FILER HAND. PATIENT AMB 50' WITH PRECISION FILER HAND ASSIST FROM [facility] AND THIS THERAPIST TRANSPORTING G-TUB DRIP STAND. PATIENT DEMO BILAT LE REDUCED STEP LENGTHS, DECREASED HIP AND KNEE EXT WITH STANCE PHASE, FOOT FLAT AT INITIAL CONTACT, 0 FALLS/LOB. DISCUSSED WITH NANCIE MCGEE THAT PATIENT'S DECREASED COGNTION RESULT IN INABILITY TO ATTEMPT FWW USAGE. NANCIE MCGEE REPORTS THAT LONG-TERM STAFF ASSISTS PATIENT WITH AMB AT LEAST 1X DAY. DUE TO PATIENT AT MAX FUNCTIONAL LEVEL, REQUIRES ASSIST WITH ALL TRANSFERS AND AMB DUE TO DECREASED COGNITION RESULTING IN INABILITY TO USE FWW, RECENT SEIZURES, AND 24/7 G-TUBE DRIP, PHYSICAL THERAPY EVAL ONLY. PATIENT INFORMED ABOUT PHYSICAL THERAPY EVAL ONLY HOWEVER MADE NO VERBAL RESPONSE. [facility] SIDE DOOR MAN VERBALIZED SUPPORT FOR PT EVAL ONLY. THIS THERAPIST CALLED AND SPOKE WITH [facility] DIRECTOR ([phone]) INFORMING ABOUT PHYSICAL THERAPY EVAL ONLY WITH NATHEN VERBALIZING AGREEMENT. NOTIFIED ABOUT PATIENT STATUS AND EVAL ONLY. [code = PHYSICAL THERAPY TO EVALUATE AND TREAT. PHYSICAL THERAPY EVALUATION PERFORMED. NO ADDITIONAL VISITS REQUIRED. PHYSICAL THERAPY EVALUATION ONLY (04/12/25) PATIENT IS A 65 YO FEMALE WITH PHYSICAL THERAPY REFERRAL AFTER REHOSPITALIZATION ON 04/06/25 DUE TO SEIZURE IN LONG-TERM, WHILE IN HOSPITAL ER PATIENT DEMO TONIC CLONIC SEIZURE. PMH: ANEMIA, DYSPHAGIA, CHRONIC RESPIRATORY FAILURE, DOWN SYNDROME, HYPOTHYROID, HYPOTENSION, HLD, CATARACTS BL, ASP PNA, DEMENTIA W/ BEHAVIORAL DISTURBANCES, HYPOXIA, SEIZURES, C-DIFF, G TUBE LEAKING. FALL HISTORY: NO RECENT FALLS REPORTED PLOF: PATIENT LIVES IN LONG-TERM WITH 24/7 CARE. PATIENT MOSTLY WHEELCHAIR BOUND AND ABLE TO AMB SHORT DISTANCES WITH HANDHELD ASSIST SINCE 12/18/24. CLOF: PATIENT IS ALERT, NON-VERBAL FOR MOST OF VISIT. VISIT COMPLETED WITH [facility] STAFF MEMBER PRESENT. PATIENT HAS A 24/7 DRIP G-TUBE. DME: W/C, HOSPITAL BED, BED SIDE COMMODE, SHOWER CHAIR, GRAB BARS PATIENT UNABLE TO SELF PROPEL WHEELCHAIR. UNABLE TO FORMALLY MANUAL MUSCLE TEST PATIENT UNABLE TO FOLLOW COMMANDS. HOWEVER BLES DEMO BILAT LE ROM WFL AND BILAT LE STRENGTH AT LEAST 3+/5. PATIENT RESISTANT TO FOLLOWING THIS THERAPIST'S COMMANDS WITH ATTEMPTING TRANSFERS. CG [facility] LONG-TERM STAFF REPORTS PATIENT RELUCTANT TO FOLLOW COMMANDS FROM UNKNOWN PERSONS AND THAT PATIENT HAS BEHAVIORAL ISSUES. WITH ENCOURAGEMENT FROM [facility], PATIENT COMPLETED SIT ->STAND FROM WHEELCHAIR WITH PRECISION FILER HAND. PATIENT AMB 50' WITH PRECISION FILER HAND ASSIST FROM [facility] AND THIS THERAPIST TRANSPORTING G-TUB DRIP STAND. PATIENT DEMO BILAT LE REDUCED STEP LENGTHS, DECREASED HIP AND KNEE EXT WITH STANCE PHASE, FOOT FLAT AT INITIAL CONTACT, 0 FALLS/LOB. DISCUSSED WITH NANCIE MCGEE THAT PATIENT'S DECREASED COGNTION RESULT IN INABILITY TO ATTEMPT FWW USAGE. NANCIE MCGEE REPORTS THAT LONG-TERM STAFF ASSISTS PATIENT WITH AMB AT LEAST 1X DAY. DUE TO PATIENT AT MAX FUNCTIONAL LEVEL, REQUIRES ASSIST WITH ALL TRANSFERS AND AMB DUE TO DECREASED COGNITION RESULTING IN INABILITY TO USE FWW, RECENT SEIZURES, AND 24/7 G-TUBE DRIP, PHYSICAL THERAPY EVAL ONLY. PATIENT INFORMED ABOUT PHYSICAL THERAPY EVAL ONLY HOWEVER MADE NO VERBAL RESPONSE. [facility] SIDE DOOR MAN VERBALIZED SUPPORT FOR PT EVAL ONLY. THIS THERAPIST CALLED AND SPOKE WITH [facility] DIRECTOR ([phone]) INFORMING ABOUT PHYSICAL THERAPY EVAL ONLY WITH NATHEN VERBALIZING AGREEMENT. MD NOTIFIED ABOUT PATIENT STATUS AND EVAL ONLY.] Goal Patient Goal - STAY OUT OF H OSPITAL Goal Provider Goal - A PLAN OF CARE WILL BE ESTABLISHED THAT MEETS PATIENT'S GROUP HOME NEEDS AND INCLUDES PATIENT GOAL FOR HOME HEALTH. Goal Provider Goal - PATIENT / CAREGIVER WILL VERBALIZE UNDERSTANDING OF EFFECTS OF URINARY INCONTINENCE BY THE END OF THE CERTIFICATION PERIOD. Goal Provider Goal - SYMPTOMS OF ANXIETY ARE IDENTIFIED AND INTERVENTIONS INITIATED TO ENABLE PATIENT TO UNDERSTAND AND MANAGE FEELINGS THROUGHOUT EPISODE. Goal Provider Goal - URINE SPECIMEN WILL BE OBTAINED PRN FOR SIGNS AND SYMPTOMS OF UTI AND RESULTS WILL BE REPORTED TO PHYSICIAN THROUGHOUT THE CERTIFICATION PERIOD. Goal Provider Goal - PATIENT/CAREGIVER WILL DEMONSTRATE ABILITY TO SELF MANAGE NEEDS RELATED TO NUTRITION/HYDRATION THROUGHOUT THE EPISODE. Goal Provider Goal - PATIENT/CAREGIVER WILL DEMONSTRATE [...] CERTIFICATION PERIOD. Goal Provider Goal - PATIENT / CAREGIVER WILL VERBALIZE UNDERSTANDING OF BARRIERS PREVENTING PROPER CARE AND DEMONSTRATE MEASURES TO ELIMINATE THOSE BARRIERS DURING THIS EPISODE. Goal Provider Goal - PATIENT/CAREGIVER WILL VERBALIZE/DEMONSTRATE UNDERSTANDING OF SAFE PROVISION OF ADLS BY THE END OF THE CERTIFICATION PERIOD. Goal Provider Goal - CHANGES IN PSYCHOSOCIAL STATUS WILL BE IDENTIFIED AND PLAN IMPLEMENTED TO MINIMIZE PATIENT RISKS THROUGHOUT THE CERTIFICATION PERIOD. Goal Provider Goal - PATIENT/CAREGIVER WILL VERBALIZE SIGNS AND SYMPTOMS OF EXACERBATION OF ENDOCRINE DIAGNOSIS TO REPORT TO NURSE/PHYSICIAN THROUGHOUT THE CERTIFICATION PERIOD. Goal Provider Goal - A PHYSICAL THERAPY EVALUATION TO BE COMPLETED WITH RECOMMENDATIONS AND/OR WRITTEN PLAN OF TREATMENT ESTABLISHED FOR PHYSICIAN S SIGNATURE. Goal Provider Goal - PATIENT/CAREGIVER WILL VERBALIZE/DEMONSTRATE SEIZURE PRECAUTIONS AND CARE OF PATIENT TO PROMOTE SAFETY AND PREVENT INJURY BY THE END OF THE CERTIFICATION PERIOD. Goal Provider Goal - PATIENT/CAREGIVER WILL VERBALIZE SIGNS AND SYMPTOMS OF HYPERTENSION AND WILL BE ABLE TO DEMONSTRATE ABILITY TO MANAGE EXACERBATION BY END OF THE EPISODE. Goal Provider Goal - PATIENT/CAREGIVER WILL VERBALIZE/DEMONSTRATE UNDERSTANDING OF TEACHING RELATED TO ALTERED SKIN INTEGRITY OF CERTIFICATION PERIOD. Goal Provider Goal - PATIENT/CAREGIVER WILL VERBALIZE /DEMONSTRATE APPROPRIATE ENVIRONMENTAL/SAFETY MODIFICATIONS IN RESPONSE TO BEHAVIOR/COGNITIVE CHANGES ASSOCIATED WITH DEMENTIA DIAGNOSIS THROUGHOUT THE CERTIFICATION PERIOD. Goal Provider Goal - PATIENT/CAREGIVER WILL VERBALIZE SIGNS AND SYMPTOMS OF HYPOTENSION AND WILL BE ABLE TO DEMONSTRATE ABILITY TO MANAGE EXACERBATION BY END OF THE EPISODE. Goal Provider Goal - PATIENT/CAREGIVER WILL DEMONSTRATE COMPLIANCE WITH TREATMENT REGIME AND VERBALIZE SIGNS AND SYMPTOMS TO REPORT WELL POSSIBLE COMPLICATIONS OF CVA BY END OF EPISODE. Goal Provider Goal - PATIENT/CARGIVER WILL VERBALIZE UNDERSTANDING OF ANEMIA INCLUDING SIGNS AND SYMPTOMS, MANAGEMENT OF COMPLICATIONS, AND PRESCRIBED TREATMENT REGIMEN BY END OF EPISODE. Goal Provider Goal - PATIENT WILL BE FREE FROM INFECTION AND PATIENT/CAREGIVER WILL VERBALIZE UNDERSTANDING OF SIGNS AND SYMPTOMS AND METHODS TO PREVENT SEPSIS BY END OF THE EPISODE. Goal Provider Goal - PATIENT WILL HAVE [...] THE CERTIFICATION PERIOD. Goal Provider Goal - NONE Encounters Start Date/Time End Date/Time Encounter Type Admission Type Attending [facility] Facility Care Department Encounter ID Discharge Date Discharge Status Discharge Condition Discharge Reason Percent Goals Met 2025-04-08 00:00:00 2025-06-06 00:00:00 Outpatient [facility] [id number] 26.67
== END 2025-05-26 11:40 | disposition home or self-care (01) ==
LOC: HO.HMCH 10:59
PROVIDERS: PCP Internal Medicine; Visit Provider Nurse Practitioner Family
DX: J18.9 Pneumonia, unspecified organism (principal)

== ENCOUNTER → 2025-05-26 10:58 | Outpatient (BNVA) | payer MEDICARE, MEDICAID, SELFPAY | PROVIDERS: PCP Internal Medicine; Visit Provider Nurse Practitioner Family | DX: J18.9 Pneumonia, unspecified organism (principal) | CPT/HCPCS: 99212 ==

== ENCOUNTER → 2025-06-19 13:57 | Outpatient (REF) | payer MEDICARE, MEDICAID, SELFPAY ==
--- NOTE | 2025-06-19 14:02 | CA_ITS ---
Transthoracic Echocardiogram Patient (Last, First, Middle): Whitney Lucero, Gender: F Date of : 1960 Age: 65 Procedure Date: 06/19/2025 Procedure Type: Transthoracic Echocardiogram Location: OP Height: 129. cm Weight: 33.57 kg BSA: 1.08 m2 Heart Rate: 91 bpm BP: 85 / 35 mmHg Machine Shop Supervisor: ALEXA Dillard MD: Theo Noriega NP Cash Application Representative: Tyler Sapp MD Symptoms: I44.7 - Left bundle-branch block, unspecified Study Quality: Adequate ECG Rhythm: Sinus Conclusions: - 1. Normal LV ejection fraction of 65-70% with mild LVH with grade 2 diastolic dysfunction 2. Calcific aortic and mitral valve changes noted with mildly increased gradient across the left ventricular outflow track 3. Normal RV systolic pressure 4. No gross pericardial effusion Findings Left Ventricle Normal left ventricular size and systolic function. There is mildly increased left ventricular wall thickness. The visually estimated ejection fraction is between 65-70%. Spectral Doppler is indicative of a pseudonormal filling pattern. E/E prime ratio is >15, consistent with elevated filling pressures. Evidence suggests grade II (moderate) diastolic dysfunction. Right Ventricle Normal right ventricular cavity size and systolic function. Atria The left atrium is normal in size. There is lipomatous hypertrophy of the interatrial septum. There is no evidence of interatrial shunt. The right atrium is normal in size. Aortic Valve The aortic valve was not well visualized. There is mild calcification of the aortic valve. There is mild aortic valve regurgitation. Mildly increased gradient across the aortic valve, could be related to minimal subaortic obstruction related to left ventricular hypertrophy. Early aortic stenosis can not be ruled out Mitral Valve There is mild anterior and posterior mitral leaflet thickening. There is moderate mitral annular calcification. There is trace mitral valve regurgitation. There is no mitral valve stenosis. Pulmonic Valve The pulmonic valve was not well visualized. Tricuspid Valve Likely normal tricuspid valve structure and function. There is mild tricuspid valve regurgitation. The right ventricular systolic pressure is normal. The right ventricular systolic pressure is 28 mmHg. Normal right atrial pressure. There is no evidence of pulmonary hypertension. Great Vessels All visible segments of the aorta are normal in size. The pulmonary artery was not well visualized. Venous The inferior vena cava is normal in size and collapses greater than 50% with inspiration. Pericardium/Pleural There is no evidence of pericardial effusion. Prior Study Comparison No significant change compared to prior study dated: 08/05/2022. Measurements 2D Linear Measurements IVSd: 1.22 0.6-0.9/0.6-1.0 cm LVIDd: 2.92 3.9-5.3/4.2-5.9 cm LVIDd Index: 2.70 2.4-3.2/2.2-3.1 cm/m2 LVIDs: 1.82 2.0-3.6 cm LVPWd: 1.16 0.7-1.1 cm LA Diam: 2.30 2.7-3.8/3.0-4.0 cm LAIDs Index: 2.13 1.5-2.3 cm/m2 LV Mass: 128.94 67-162/88-224 g LV Mass Index: 119.39 43-95/49-115 g/m2 LVOT Diam: 2.00 3.0+(-)1.3 cm 2D Systolic Function EF 4C: 66.50 >55% EF 2C: 66.60 >55% EF BiP: 67.90 >55% Mitral Valve MV VTI: 0.43 MV Pk Paul: 1.24 MV Mn Paul: 0.81 MV Pk Grad: 6.00 MV Mn Grad: 3.00 MV Pk E: 1.05 MV PK A: 0.88 MV Decel Time: 477.00 E/A: 1.20 E'Lateral: 4.35 E'Medial: 2.84 E/E' Med: 37.00 E/E' Lat: 24.10 PHT: 140.00 MVA PHT: 1.57 MVA Continuity: 2.01 Decel [place]: 2.19 Aortic Valve AoV Pk Paul: 1.90 AoV Mn Paul: 1.30 AoV VTI: 0.35 AoV Pk Grad: 14.00 Aov Mn Grad: 8.00 HAL Cont.VTI: 2.46 LVOT LVOT Pk Paul: 1.56 LVOT Mn Paul: 1.01 LVOT VTI: 0.28 LVOT Pk Grad: 10.00 LVOT Mn Grad: 5.00 LVOT Diam: 2.00 LVOT Area: 3.14 Diastolic Function MV Pk E: 1.05 MV Pk A: 0.88 E/A: 1.20 E'Medial: 2.84 E/E' Med: 37.00 E' Laterial: 4.35 E/E' Lat: 24.10 Right Ventricle TAPSE (mm): 27.70 TVS' Paul: 18.50 Tricuspid Valve TR Pk Paul: 2.52 TR Pk Grad: 25.00 RA Press: 3.00 RVSP: 28.00 Great Vessels Aorta Sinus of Valsalva: 3.10 2.0-3.5 cm Ao Asc: 3.10 2.1-3.4 cm Pulmonary Valve PV Pk Paul: 1.22 Peak PV Grad: 6.00 Updated in Other Vendor System with Status of Final Tyler Sapp MD electronically signed on 06/20/2025 12:39:59 PM with status of Final
--- OUTSIDE RECORDS SUMMARY | 2025-06-19 20:19 | XMS_ITS | Clinical Summary ---
Author Organization [address] Address [address] [place] [id number] Phone Care Team Providers Care Oil And Gas Superintendent Name Role Phone Erickson Melton MD Primary Care Provider [phone] Allergies Active Allergy Reactions Criticality Noted Date Comments Amoxicillin Unknown 09/30/2024 Patient has tolerated cefdinir in 2024 at [facility] and also ceftriaxone at [facility] 2024 Clindamycin Unknown 09/30/2024 Sulfa (Sulfonamide Antibiotics) [...] Medical History Date Comments Down syndrome Dementia ([facility] V24, [facility] V28) CVA (cerebral vascular accident) ([facility] V24, [facility] V28) Hypothyroidism Aspiration pneumonia ([facility] V24, [facility] V28) C. difficile colitis Social History [...] your loved ones. For example, director child abuse therapy or elderly care for an older adult? [...] Orientation Straight 09/30/2024 10 :42 PM EDT Last Filed Vital Signs Vital Sign Reading [...] Documents on File Type Date Recorded Patient Mail Sorter Expl anation Advance Directives and Livin g [...] Agents on File Name Relationship Healthcare Agent [facility] Communication [facility] Care Agent [phone] ([place]) Care Teams Oil And Gas Superintendent Relationship Specialty Start Date End Date Erickson Melton MD [address] [place] [address] PCP - General Internal Medicine 09/13/24
--- OUTSIDE RECORDS SUMMARY | 2025-06-19 20:19 | XMS_ITS | Data Portability ---
Author Organization [facility] Ng s, [id number] Address [address] [place] [address] Assessment No assessment recorded. Plan of Treatment Reminders Order Date Submit Date Provider Last Modified By Organization Details Last Modified Time Details Appointments None recorded. Lab None recorded. Referral emergency medicine referral 2022 023 [email or web address] [facility], [address] [place] [address], [id number], 3 08:00:22 Procedures None recorded. Surgeries None recorded. Imaging None recorded. Medication Orders None recorded. Patient TargetsNo targets recorded. Patient Instructions Encounter Date Encounter Id Patient Instructions Last Modified By Organization Details Last Modified Time 10/21/2022 [id number] You have been advised to go now to the Emergency Department for further evaluation. [facility] ER has been advised of your impending arrival. Not available 10/21/2022 17:01:48 Reason for Referral Emergency Medicine Referral for Petechiae of skin New petechial rash bilateral lower extremities (since last night) Referring Physician: Sveta Martin, Urgent Care, Encounter Date: 10/21/2022 Problems Name Problem SNOMED Code Status Onset Date Resolution Date Notes Provider Name and Address Organization Details Recorded Time Feeling agitated 12524152 Active 2022 IRIS PENNY R null, [place] - [facility] 3 15:15:15 Mood disorder 83726465 Active 2022 IRIS PENNY R null, PA - [facility] 3 15:15:25 Aggressive behavior 63374690 Active 2022 IRIS PENNY R null, PA - [facility] 3 15:15:36 Constipation 82484058 Active 2022 IRIS COUVERTIE R null, PA - [facility] 3 15:15:52 Hypothyroidism 66941725 Active 2022 IRIS COUVERTIE R null, PA - [facility] 3 15:16:05 Allergic rhinitis 50195378 Active 2022 IRIS COUVERTIE R null, PA - [facility] 3 15:16:38 Tinea pedis 1615981 Active 2022 IRIS COUVERTIE R null, PA - [facility] 3 15:16:53 Sleep disorder 89040746 Active 2022 IRIS COUVERTIE R null, PA - [facility] 3 15:18:09 Problem Notes None recorded. Medical Equipment None Reported. Allergies Allergen ID Allergen Name Allergen Category Reaction Reaction Severity Criticality Documentation Date Start Date Code Code System Note Provider Name and Address Organization Details Recorded Time 341461 amoxicill in medicatio n Not available Not available Not available 10/21/2022 723 RxNorm IRIS COUVERTIE R null, PA - [facility] 3 15:04:10 900905 Bactrim medicatio n Not available Not available Not available 10/21/2022 31238 9 RxNorm IRIS COUVERTIE R null, PA - [facility] 3 15:04:17 689928 Substance with sulfonami de structure and antibacte rial mechanism of action (substanc e) medicatio n Not available Not available Not available 10/21/2022 67566 8003 SNOMED IRIS COUVERTIE R null, PA - [facility] 3 15:04:22 919881 clindamyc in Not available Not available Not [...] /min 94 % 124.46 cm 24.7 kg/m2 68368.8 6 g 96/69 mm[Hg] LIBORIO Ferrell [facility] 3 15:11:15 Social History Question Answer Notes LastModified by Organizat ion Details LastModified Time Tobacco Smoking Status Never Smoker MYRA Meraz [facility] 10/21/2022 15:06:57 What Is Your Water Source? [facility] Information not available 10/21/2022 What Is Your [...] ICD10 Code Diagnosis IMO Codes Diagnosis Note [id number] Sveta Martin [place] [address] [address] 10/21/2022 09:24:57 10/21/2022 17:07:10 Petechiae of skin 744492083 R23.3 Health Concerns Section Related Observation LastModified by Organization Detai ls LastModified Time None Recorded Concern Status LastModified by Organization Details LastModified Time None Recorded Advance Directives Directive None Recorded Payers Insurance Date Sequence Insurance Name Policy Number Policy Lu Covered Member ID Lu Member ID Guarantor Name 10/21/2022 1 [place] [employer] Whitney Lucero [id number] Whitney Lucero 10/21/2022 2 [place] [facility] Whitney Lucero [id number] Whitney Lucero Notes Date Note Type Note [...] with hx of Down's syndrome brought by jail staff member for evaluation of a red rash to her lower legs noted first last night. The patient is a poor historian and history obtained by jail staff member. No hx of fever, runny nose, cough, vomiting, diarrhea. No new medications, soaps or lotions. The rash does not appear to be itchy but seems to be spreading. Sveta Martin MD [address] [place] [address] [place], [address], [place] - [facility] 10/21/2022 17:07:58 OBGyn Episode No OBEpisode recorded.
--- OUTSIDE RECORDS SUMMARY | 2025-06-19 20:19 | XMS_ITS | Encounter Summary ---
Author Organization [facility] Address [address] [place] [address] Care Team Providers Care Telecommunications Switch Technician Name Role Phone Erickson Melton MD Primary Care Provider +1- [phone] Encounter Details Date Type Department Care Team (Late st Contact Info) Description 10/31/2024 Lab Requisition [facility] - Main Lab [address] [facility] [place] [address] Erickson Melton MD [address] [place] [address] Pneumonia, unspecified organism; Anemia, unspecified Social History [...] for your loved ones. For example, childcare administrator or elderly care for an older [...] mmol/L LAB CHEMISTRY METHOD 11/01/2024 11:26 AM [facility] Potassium 4.1 3.5 - 5.5 mmol/L LAB CHEMISTRY METHOD 11/01/2024 11:26 AM [facility] Chloride 102 96 - 110 mmol/L LAB CHEMISTRY METHOD 11/01/2024 11:26 AM [facility] CO2 34(H) 21 - 32 mmol/L LAB CHEMISTRY METHOD 11/01/2024 11:26 AM [facility] Anion Gap 5 3 - 11 LAB CHEMISTRY METHOD 11/01/2024 11:26 AM [facility] Glucose 86 70 - 100 mg/dL LAB CHEMISTRY METHOD 11/01/2024 11:26 AM [facility] BUN 23 5 - 25 mg/dL LAB CHEMISTRY METHOD 11/01/2024 11:26 AM [facility] Creatinine 0.74 0.50 - 1.10 mg/dL LAB CHEMISTRY METHOD 11/01/2024 11:26 AM [facility] eGFR 90 >=60 mL/min/1. 73m2 LAB CHEMISTRY METHOD 11/01/2024 11:26 AM [facility] Comment:Calculation based on the Chronic Kidney Disease Epidemiology Collaboration (CKD-EPI) equation refit without adjustment for race. BUN/Creatinine Ratio 31.1 LAB CHEMISTRY METHOD 11/01/2024 11:26 AM [facility] Calcium 8.6 8.5 - 10.5 mg/dL LAB CHEMISTRY METHOD 11/01/2024 11:26 AM [facility] Blood Venous blood specimen / Unknown Venipuncture / Unknown 11/01/2024 6:41 AM EDT 11/01/2024 10:40 AM EDT us Erickson Melton MD LAB BLOOD ORDERABLES Final Result [facility] [address] [place] [address], * (ABNORMAL) Complete blood count (11/01/2024 6:41 [...] [facility] [address] [place] [address], documented in this encounter Visit Diagnoses Diagnosis [...] documented as of this encounter Care Teams Telecommunications Switch Technician Relationship Specialty Start Date End Date Erickson Melton MD [address] [place] [address] PCP - General Internal Medicine 09/13/24 documented as of this encounter
--- OUTSIDE RECORDS SUMMARY | 2025-06-19 20:19 | XMS_ITS | Encounter Summary ---
Author Organization [facility] Address [address] [place] [address] Care Team Providers Care Steel Pan Form Placing Supervisor Name Role Phone Erickson Melton MD Primary Care Provider +1- [phone] Encounter Details Date Type Department Care Team (Late st Contact Info) Description 12/05/2024 Lab Requisition [facility] - Main Lab 299 [facility] [place] [address] Erickson Melton MD [address] [place] [address] Pneumonia, unspecified organism; Anemia, unspecified Social History [...] your loved ones. For example, child development professor or elderly care for an older [...] Melton MD LAB BLOOD ORDERABLES Final Result [facility] [address] [place] [address], * (ABNORMAL) Complete blood count (12/06/2024 7:48 AM EDT) WBC 3.8(L) 4.8 - 10.8 K/mcL LAB HEMETOLOGY METHOD 12/06/2024 11:40 AM EDT [facility] RBC 3.80 3.80 - 4.80 M/mcL LAB HEMETOLOGY METHOD 12/06/2024 11:40 AM EDT [facility] Hemoglobin 12.7 11.5 - 16.0 g/dL LAB HEMETOLOGY METHOD 12/06/2024 11:40 AM T [facility] Hematocrit 40.7 35.0 - 47.0 % LAB HEMETOLOGY METHOD 12/06/2024 11:40 AM EDT [facility] MCV 108.5(H) 79.0 - 98.0 FL LAB HEMETOLOGY METHOD 12/06/2024 11:40 AM [facility] MCH 33.9(H) 27.0 - 32.0 pcg LAB HEMETOLOGY METHOD 12/06/2024 11:40 AM T [facility] MCHC 31.2(L) 32.0 - 37.0 g/dL LAB HEMETOLOGY METHOD 12/06/2024 11:40 AM EDT [facility] RDW 15.0 11.0 - 15.0 % LAB HEMETOLOGY METHOD 12/06/2024 11:40 AM [facility] Platelets 160 130 - 400 K/mcL LAB HEMETOLOGY METHOD 12/06/2024 11:40 AM [facility] MPV 11.2(H) 7.0 - 11.0 FL LAB HEMETOLOGY METHOD 12/06/2024 11:40 AM EDT [facility] NRBC 0.0 <1.0 % LAB HEMETOLOGY METHOD 12/06/2024 11:40 AM EDT [facility] NRBC Absolute 0.00 <0.10 K/mcL LAB HEMETOLOGY METHOD 12/06/2024 11:40 AM EDT [facility] Blood Venous blood specimen / Unknown Venipuncture / Unknown 12/06/2024 7:48 AM EDT 12/06/2024 9:05 AM EDT Erickson Melton MD LAB BLOOD ORDERABLES Final Result [facility] [address] [place] [address], documented in this encounter Visit Diagnoses Diagnosis Pneumonia, unspecified organism Anemia, unspecified documented in this encounter Additional Health Concerns Infection Onset Date Last Indicated Resolved Time C. difficile Rule-Out 01/13/2025 01/13/20252024 4:32 AM EDT C. difficile Rule-Out 01/13/2025 01/13/20252024 10:19 AM EDT C. difficile 01/13/2025 01/13/2025 02/06/2025 7:06 PM EDT documented as of this encounter Care Teams Steel Pan Form Placing Supervisor Relationship Specialty Start Date End Date Erickson Melton MD [address] [place] [address] PCP - General Internal Medicine 09/13/24 documented as of this encounter
--- OUTSIDE RECORDS SUMMARY | 2025-06-19 20:19 | XMS_ITS | Encounter Summary ---
Author Organization [facility] Address [address] [place] [address] Care Team Providers Care Press Hand Name Role Phone Erickson Melton MD Primary Care Provider +1- [phone] Encounter Details Date Type Department Care Team (Late st Contact Info) Description 10/24/[address] [facility] - Main Lab [address] [facility] [place] [address] Erickson Melton MD [address] [place] [address] Pneumonia, unspecified organism; Anemia, unspecified Social History [...] mmol/L LAB CHEMISTRY METHOD 10/25/2024 11:17 AM [facility] Potassium 4.2 3.5 - 5.5 mmol/L LAB CHEMISTRY METHOD 10/25/2024 11:17 AM [facility] Chloride 102 96 - 110 mmol/L LAB CHEMISTRY METHOD 10/25/2024 11:17 AM [facility] CO2 31 21 - 32 mmol/L LAB CHEMISTRY METHOD 10/25/2024 11:17 AM [facility] Anion Gap 9 3 - 11 LAB CHEMISTRY METHOD 10/25/2024 11:17 AM [facility] Glucose 98 70 - 100 mg/dL LAB CHEMISTRY METHOD 10/25/2024 11:17 AM [facility] BUN 26(H) 5 - 25 mg/dL LAB CHEMISTRY METHOD 10/25/2024 11:17 AM [facility] Creatinine 0.71 0.50 - 1.10 mg/dL LAB CHEMISTRY METHOD 10/25/2024 11:17 AM [facility] eGFR 95 >=60 mL/min/1. 73m2 LAB CHEMISTRY METHOD 10/25/2024 11:17 AM [facility] Comment:Calculation based on the Chronic Kidney Disease Epidemiology Collaboration (CKD-EPI) equation refit without adjustment for race. BUN/Creatinine Ratio 36.6 LAB CHEMISTRY METHOD 10/25/2024 11:17 AM [facility] Calcium 8.8 8.5 - 10.5 mg/dL LAB CHEMISTRY METHOD 10/25/2024 11:17 AM [facility] Blood Venous blood specimen / Unknown Venipuncture / Unknown 10/25/2024 8:09 AM EDT 10/25/2024 9:05 AM EDT Erickson Melton MD LAB BLOOD ORDERABLES Final Result [facility] [address] [place] [address], * (ABNORMAL) Complete blood count (10/25/2024 8:09 AM EDT) WBC 5.1 4.8 - 10.8 K/mcL LAB HEMETOLOGY METHOD 10/25/2024 10:[address] [facility] RBC 3.70(L) 3.80 - 4.80 M/mcL LAB HEMETOLOGY METHOD 10/25/2024 10:[address] [facility] Hemoglobin 12.7 11.5 - 16.0 g/dL LAB HEMETOLOGY METHOD 10/25/2024 10:40 AM [facility] Hematocrit 40.0 35.0 - 47.0 % LAB HEMETOLOGY METHOD 10/25/2024 10:[address] [facility] MCV 107.2(H) 79.0 - 98.0 FL LAB HEMETOLOGY METHOD 10/25/2024 10:[address] [facility] MCH 34.0(H) 27.0 - 32.0 pcg LAB HEMETOLOGY METHOD 10/25/2024 10:[address] [facility] MCHC 31.8(L) 32.0 - 37.0 g/dL LAB HEMETOLOGY METHOD 10/25/2024 10:[address] [facility] RDW 16.7(H) 11.0 - 15.0 % LAB HEMETOLOGY METHOD 10/25/2024 10:[address] [facility] Platelets 189 130 - 400 K/mcL LAB HEMETOLOGY METHOD 10/25/2024 10:[address] [facility] MPV 11.2(H) 7.0 - 11.0 FL LAB HEMETOLOGY METHOD 10/25/2024 10:[address] [facility] NRBC 0.0 <1.0 % LAB HEMETOLOGY METHOD 10/25/2024 10:[address] [facility] NRBC Absolute 0.00 <0.10 K/mcL LAB HEMETOLOGY METHOD 10/25/2024 10:[address] [facility] Blood Venous blood specimen / Unknown Venipuncture / Unknown 10/25/2024 8:09 AM EDT 10/25/2024 9:05 AM EDT Erickson Melton MD LAB BLOOD ORDERABLES Final Result [facility] [address] [place] [address], documented in this encounter Visit Diagnoses Diagnosis [...] documented as of this encounter Care Teams Press Hand Relationship Specialty Start Date End Date Erickson Melton MD [address] [place] [address] PCP - General Internal Medicine 09/13/24 documented as of this encounter
--- OUTSIDE RECORDS SUMMARY | 2025-06-19 20:19 | XMS_ITS | Encounter Summary ---
Author Organization [facility] Address [address] [place] [address] Care Team Providers Care Bookkeeper Name Role Phone Erickson Melton MD Primary Care Provider +1- [phone] Encounter Details Date Type Department Care Team (Late st Contact Info) Description 10/27/2024 Lab Requisition [facility] - Main Lab [address] [facility] [place] [address] Erickson Melton MD [address] [place] [address] Enterocolitis due to Clostridium difficile, not specified [...] care for your loved ones. For example, primary care nurse practitioner or elderly care for an older adult? [...] mmol/L LAB CHEMISTRY METHOD 10/27/2024 9:[address] [facility] Potassium 4.3 3.5 - 5.5 mmol/L LAB CHEMISTRY METHOD 10/27/2024 9:[address] [facility] Comment:Hemolysis present Chloride 105 96 - 110 mmol/L LAB CHEMISTRY METHOD 10/27/2024 9:[address] [facility] CO2 29 21 - 32 mmol/L LAB CHEMISTRY METHOD 10/27/2024 9:[address] [facility] Anion Gap 6 3 - 11 LAB CHEMISTRY METHOD 10/27/2024 9:[address] [facility] Glucose 82 70 - 100 mg/dL LAB CHEMISTRY METHOD 10/27/2024 9:[address] [facility] BUN 33(H) 5 - 25 mg/dL LAB CHEMISTRY METHOD 10/27/2024 9:[address] [facility] Creatinine 0.68 0.50 - 1.10 mg/dL LAB CHEMISTRY METHOD 10/27/2024 9:[address] [facility] eGFR 97 >=60 mL/min/1. 73m2 LAB CHEMISTRY METHOD 10/27/2024 9:[address] [facility] Comment:Calculation based on the Chronic Kidney Disease Epidemiology Collaboration (CKD-EPI) equation refit without adjustment for race. BUN/Creatinine Ratio 48.5 LAB CHEMISTRY METHOD 10/27/2024 9:[address] [facility] Calcium 8.7 8.5 - 10.5 mg/dL LAB CHEMISTRY METHOD 10/27/2024 9:[address] [facility] Blood Venous blood specimen / Unknown Venipuncture / Unknown 10/27/2024 6:46 AM EDT 10/27/2024 7:59 AM EDT Erickson Melton MD LAB BLOOD ORDERABLES Final Result [facility] [address] [place] [address], * (ABNORMAL) Complete blood count (10/27/2024 6:46 AM EDT) WBC 10.5 4.8 - 10.8 K/mcL LAB HEMETOLOGY METHOD 10/27/2024 8:39 AM EDT [facility] RBC 3.80 3.80 - 4.80 M/mcL LAB HEMETOLOGY METHOD 10/27/2024 8:[address] [facility] Hemoglobin 13.0 11.5 - 16.0 g/dL LAB HEMETOLOGY METHOD 10/27/2024 8:[address] [facility] Hematocrit 42.2 35.0 - 47.0 % LAB HEMETOLOGY METHOD 10/27/2024 8:[address] [facility] MCV 111.9(H) 79.0 - 98.0 FL LAB HEMETOLOGY METHOD 10/27/2024 8:[address] [facility] MCH 34.5(H) 27.0 - 32.0 pcg LAB HEMETOLOGY METHOD 10/27/2024 8:[address] [facility] MCHC 30.8(L) 32.0 - 37.0 g/dL LAB HEMETOLOGY METHOD 10/27/2024 8:[address] [facility] RDW 17.3(H) 11.0 - 15.0 % LAB HEMETOLOGY METHOD 10/27/2024 8:[address] [facility] Platelets 181 130 - 400 [...] Result [facility] [address] [place] [address], documented in this encounter Visit Diagnoses Diagnosis [...] documented as of this encounter Care Teams Bookkeeper Relationship Specialty Start Date End Date Erickson Melton MD [address] [place] [address] PCP - General Internal Medicine 09/13/24 documented as of this encounter
--- OUTSIDE RECORDS SUMMARY | 2025-06-19 20:19 | XMS_ITS | Encounter Summary ---
Author Organization [facility] Address [address] [place] [address] Care Team Providers Care Senior Occupational Therapist Name Role Phone Erickson Melton MD Primary Care Provider +1- [phone] Encounter Details Date Type Department Care Team (Late st Contact Info) Description 10/03/2024 Lab Requisition [facility] - Main Lab 299 [facility] [place] [address] Erickson Melton MD [address] [place] [address] Anemia, unspecified; Hypothyroidism, unspecified; Other seizures (CMS/HCC [...] your loved ones. For example, child welfare manager or elderly care for an older [...] as of this encounter Care Teams Senior Occupational Therapist Relationship Specialty Start Date End Date Erickson Melton MD [address] [place] [address] PCP - General Internal Medicine 09/13/24 documented as of this encounter
--- OUTSIDE RECORDS SUMMARY | 2025-06-19 20:19 | XMS_ITS | Encounter Summary ---
Author Organization [facility] Address [address] [place] [address] Care Team Providers Care Certified Prosthetist/Orthotist Name Role Phone Erickson Melton MD Primary Care Provider +1- [phone] Encounter Details Date Type Department Care Team (Late st Contact Info) Description 10/17/2024 Lab Requisition [facility] - Main Lab 299 [facility] [place] [address] Erickson Melton MD [address] [place] [address] Pneumonia, unspecified organism; Anemia, unspecified Social History [...] mmol/L LAB CHEMISTRY METHOD 10/18/2024 11:47 AM [facility] Potassium 4.0 3.5 - 5.5 mmol/L LAB CHEMISTRY METHOD 10/18/2024 11:47 AM [facility] Chloride 99 96 - 110 mmol/L LAB CHEMISTRY METHOD 10/18/2024 11:47 AM [facility] CO2 35(H) 21 - 32 mmol/L LAB CHEMISTRY METHOD 10/18/2024 11:47 AM [facility] Anion Gap 5 3 - 11 LAB CHEMISTRY METHOD 10/18/2024 11:47 AM [facility] Glucose 76 70 - 100 mg/dL LAB CHEMISTRY METHOD 10/18/2024 11:47 AM [facility] BUN 19 5 - 25 mg/dL LAB CHEMISTRY METHOD 10/18/2024 11:47 AM [facility] Creatinine 0.71 0.50 - 1.10 mg/dL LAB CHEMISTRY METHOD 10/18/2024 11:47 AM [facility] eGFR 95 >=60 mL/min/1. 73m2 LAB CHEMISTRY METHOD 10/18/2024 11:47 AM [facility] Comment:Calculation based on the Chronic Kidney Disease Epidemiology Collaboration (CKD-EPI) equation refit without adjustment for race. BUN/Creatinine Ratio 26.8 LAB CHEMISTRY METHOD 10/18/2024 11:47 AM [facility] Calcium 9.4 8.5 - 10.5 mg/dL LAB CHEMISTRY METHOD 10/18/2024 11:47 AM [facility] Blood Venous blood specimen / Unknown Venipuncture / Unknown 10/18/2024 8:38 AM EDT 10/18/2024 10:05 AM EDT us Erickson Melton MD LAB BLOOD ORDERABLES Final Result [facility] [address] [place] [address], * (ABNORMAL) Complete blood count (10/18/2024 8:38 AM EDT) WBC 2.4(L) 4.8 - 10.8 K/mcL LAB HEMETOLOGY METHOD 10/18/2024 11:22 AM EDT [facility] RBC 3.60(L) 3.80 - 4.80 M/mcL LAB HEMETOLOGY METHOD 10/18/2024 11:22 AM [facility] Hemoglobin 12.3 11.5 - 16.0 g/dL LAB HEMETOLOGY METHOD 10/18/2024 11:22 AM [facility] Hematocrit 39.0 35.0 - 47.0 % LAB HEMETOLOGY METHOD 10/18/2024 11:22 AM [facility] MCV 107.7(H) 79.0 - 98.0 FL LAB HEMETOLOGY METHOD 10/18/2024 11:22 AM [facility] MCH 34.0(H) 27.0 - 32.0 pcg LAB HEMETOLOGY METHOD 10/18/2024 11:22 AM [facility] MCHC 31.5(L) 32.0 - 37.0 g/dL LAB HEMETOLOGY METHOD 10/18/2024 11:22 AM [facility] RDW 17.2(H) 11.0 - 15.0 % LAB HEMETOLOGY METHOD 10/18/2024 11:22 AM [facility] Platelets 238 130 - 400 K/mcL LAB HEMETOLOGY METHOD 10/18/2024 11:22 AM [facility] MPV 10.8 7.0 - 11.0 FL LAB HEMETOLOGY METHOD 10/18/2024 11:22 AM EDT [facility] NRBC 0.0 <1.0 % LAB HEMETOLOGY METHOD 10/18/2024 11:22 AM EDT [facility] NRBC Absolute 0.00 <0.10 K/mcL LAB HEMETOLOGY METHOD 10/18/2024 11:22 AM EDT [facility] Blood Venous blood specimen / Unknown Venipuncture / Unknown 10/18/2024 8:38 AM EDT 10/18/2024 10:05 AM EDT Erickson Melton MD LAB BLOOD ORDERABLES Final Result [facility] [address] [place] [address], documented in this encounter Visit Diagnoses Diagnosis [...] documented as of this encounter Care Teams Certified Prosthetist/Orthotist Relationship Specialty Start Date End Date Erickson Melton MD [address] [place] [address] PCP - General Internal Medicine 09/13/24 documented as of this encounter
--- OUTSIDE RECORDS SUMMARY | 2025-06-19 20:20 | XMS_ITS | Encounter Summary ---
Author Organization [facility] Address [address] [place] [address] Care Team Providers Care Molder Wax Ball Name Role Phone Erickson Melton MD Primary Care Provider +1- [phone] Encounter Details Date Type Department Care Team (Late st Contact Info) Description 11/14/2024 Lab Requisition [facility] - Main Lab 299 [facility] [place] [address] Erickson Melton MD [address] [place] [address] Pneumonia, unspecified organism; Anemia, unspecified Social History [...] your loved ones. For example, child care nurse or elderly care for an [...] mmol/L LAB CHEMISTRY METHOD 11/15/2024 11:[address] [facility] Potassium 4.3 3.5 - 5.5 mmol/L LAB CHEMISTRY METHOD 11/15/2024 11:[address] [facility] Chloride 103 96 - 110 mmol/L LAB CHEMISTRY METHOD 11/15/2024 11:[address] [facility] CO2 30 21 - 32 mmol/L LAB CHEMISTRY METHOD 11/15/2024 11:[address] [facility] Anion Gap 5 3 - 11 LAB CHEMISTRY METHOD 11/15/2024 11:[address] [facility] Glucose 68(L) 70 - 100 mg/dL LAB CHEMISTRY METHOD 11/15/2024 11:[address] [facility] BUN 26(H) 5 - 25 mg/dL LAB CHEMISTRY METHOD 11/15/2024 11:[address] [facility] Creatinine 0.66 0.50 - 1.10 mg/dL LAB CHEMISTRY METHOD 11/15/2024 11:[address] [facility] eGFR 98 >=60 mL/min/1. 73m2 LAB CHEMISTRY METHOD 11/15/2024 11:[address] [facility] Comment:Calculation based on the Chronic Kidney Disease Epidemiology Collaboration (CKD-EPI) equation refit without adjustment for race. BUN/Creatinine Ratio 39.4 LAB CHEMISTRY METHOD 11/15/2024 11:[address] [facility] Calcium 8.8 8.5 - 10.5 mg/dL LAB CHEMISTRY METHOD 11/15/2024 11:[address] [facility] Blood Venous blood specimen / Unknown Venipuncture / Unknown 11/15/2024 8:04 AM EDT 11/15/2024 10:29 AM EDT Erickson Melton MD LAB BLOOD ORDERABLES Final Result [facility] [address] [place] [address], * (ABNORMAL) Complete blood count (11/15/2024 8:04 AM EDT) WBC 5.4 4.8 - 10.8 K/mcL LAB HEMETOLOGY METHOD 11/15/2024 11:00 AM EDT [facility] RBC 3.80 3.80 - 4.80 M/mcL LAB HEMETOLOGY METHOD [facility] Hemoglobin 13.0 11.5 - 16.0 g/dL LAB HEMETOLOGY METHOD 11/15/2024 11:[address] [facility] Hematocrit 40.9 35.0 - 47.0 % LAB HEMETOLOGY METHOD 11/15/2024 11:[address] [facility] MCV 107.3(H) 79.0 - 98.0 FL LAB HEMETOLOGY METHOD 11/15/2024 11:[address] [facility] MCH 34.1(H) 27.0 - 32.0 pcg LAB HEMETOLOGY METHOD 11/15/2024 11:[address] [facility] MCHC 31.8(L) 32.0 - 37.0 g/dL LAB HEMETOLOGY METHOD 11/15/2024 11:[address] [facility] RDW 16.0(H) 11.0 - 15.0 % LAB HEMETOLOGY METHOD 11/15/2024 11:[address] [facility] Platelets 225 130 - 400 K/mcL LAB HEMETOLOGY METHOD 11/15/2024 11:[address] [facility] MPV 11.1(H) 7.0 - 11.0 FL LAB HEMETOLOGY METHOD 11/15/2024 11:00 AM EDT [facility] NRBC 0.0 <1.0 % LAB HEMETOLOGY METHOD 11/15/2024 11:00 AM EDT [facility] NRBC Absolute 0.00 <0.10 K/mcL LAB HEMETOLOGY METHOD 11/15/2024 11:00 AM EDT [facility] Blood Venous blood specimen / Unknown Venipuncture / Unknown 11/15/2024 8:04 AM EDT 11/15/2024 10:29 AM EDT Erickson Melton MD LAB BLOOD ORDERABLES Final Result [facility] [address] [place] [address], documented in this encounter Visit Diagnoses Diagnosis [...] documented as of this encounter Care Teams Molder Wax Ball Relationship Specialty Start Date End Date Erickson Melton MD [address] [place] [address] PCP - General Internal Medicine 09/13/24 documented as of this encounter
--- OUTSIDE RECORDS SUMMARY | 2025-06-19 20:20 | XMS_ITS | Encounter Summary ---
Author Organization [facility] Address [address] [place] [address] Care Team Providers Care Deputy Fire Chief Name Role Phone Erickson Melton MD Primary Care Provider +1- [phone] Encounter Details Date Type Department Care Team (Late st Contact Info) Description 11/21/2024 Lab Requisition [facility] - Main Lab 299 [facility] [place] [address] Erickson Melton MD [address] [place] [address] Pneumonia, unspecified organism; Anemia, unspecified Social History [...] for your loved ones. For example, child abuse worker or elderly care for an older [...] mmol/L LAB CHEMISTRY METHOD 11/22/2024 11:50 AM [facility] Potassium 4.0 3.5 - 5.5 mmol/L LAB CHEMISTRY METHOD 11/22/2024 11:50 AM [facility] Chloride 102 96 - 110 mmol/L LAB CHEMISTRY METHOD 11/22/2024 11:50 AM [facility] CO2 26 21 - 32 mmol/L LAB CHEMISTRY METHOD 11/22/2024 11:50 AM [facility] Anion Gap 10 3 - 11 LAB CHEMISTRY METHOD 11/22/2024 11:50 AM [facility] Glucose 88 70 - 100 mg/dL LAB CHEMISTRY METHOD 11/22/2024 11:50 AM [facility] BUN 27(H) 5 - 25 mg/dL LAB CHEMISTRY METHOD 11/22/2024 11:50 AM [facility] Creatinine 0.64 0.50 - 1.10 mg/dL LAB CHEMISTRY METHOD 11/22/2024 11:50 AM [facility] eGFR 99 >=60 mL/min/1. 73m2 LAB CHEMISTRY METHOD 11/22/2024 11:50 AM [facility] Comment:Calculation based on the Chronic Kidney Disease Epidemiology Collaboration (CKD-EPI) equation refit without adjustment for race. BUN/Creatinine Ratio 42.2 LAB CHEMISTRY METHOD 11/22/2024 11:50 AM [facility] Calcium 8.6 8.5 - 10.5 mg/dL LAB CHEMISTRY METHOD 11/22/2024 11:50 AM [facility] Blood Venous blood specimen / Unknown Venipuncture / Unknown 11/22/2024 7:30 AM EDT 11/22/2024 10:25 AM EDT us Erickson Melton MD LAB BLOOD ORDERABLES Final Result [facility] [address] [place] [address], * (ABNORMAL) Complete blood count (11/22/2024 7:30 AM EDT) WBC 5.4 4.8 - 10.8 K/mcL LAB HEMETOLOGY METHOD 11/22/2024 10:41 AM EDT [facility] RBC 3.80 3.80 - 4.80 M/mcL LAB HEMETOLOGY METHOD 11/22/2024 10:41 AM EDT [facility] Hemoglobin 13.1 11.5 - 16.0 g/dL LAB HEMETOLOGY METHOD 11/22/2024 10:41 AM EDT [facility] Hematocrit 40.5 35.0 - 47.0 % LAB HEMETOLOGY METHOD 11/22/2024 10:41 AM EDT [facility] MCV 105.5(H) 79.0 - 98.0 FL LAB HEMETOLOGY METHOD 11/22/2024 10:41 AM EDT [facility] MCH 34.1(H) 27.0 - 32.0 pcg LAB HEMETOLOGY METHOD 11/22/2024 10:41 AM EDT [facility] MCHC 32.3 32.0 - 37.0 g/dL LAB HEMETOLOGY METHOD 11/22/2024 10:41 AM EDT [facility] RDW 15.9(H) 11.0 - 15.0 % LAB HEMETOLOGY METHOD 11/22/2024 10:41 AM EDT [facility] Platelets 219 130 - 400 K/mcL LAB HEMETOLOGY METHOD 11/22/2024 10:41 AM EDT [facility] MPV 10.8 7.0 - 11.0 FL LAB HEMETOLOGY METHOD 11/22/2024 10:41 AM EDT [facility] NRBC 0.0 <1.0 % LAB HEMETOLOGY METHOD 11/22/2024 10:41 AM EDT [facility] NRBC Absolute 0.00 <0.10 K/mcL LAB HEMETOLOGY METHOD 11/22/2024 10:41 AM EDT [facility] Blood Venous blood specimen / Unknown Venipuncture / Unknown 11/22/2024 7:30 AM EDT 11/22/2024 10:25 AM EDT Erickson Melton MD LAB BLOOD ORDERABLES Final Result [facility] [address] [place] [address], documented in this encounter Visit Diagnoses Diagnosis Pneumonia, unspecified organism Anemia, unspecified documented in this encounter Additional Health Concerns Infection Onset Date Last Indicated Resolved Time C. difficile Rule-Out 01/13/2025 01/13/20252024 4:32 AM EDT C. difficile Rule-Out 01/13/2025 01/13/20252024 10:19 AM EDT C. difficile 01/13/2025 01/13/2025 02/06/2025 7:06 PM EDT documented as of this encounter Care Teams Deputy Fire Chief Relationship Specialty Start Date End Date Erickson Melton MD [address] [place] [id number] PCP - General Internal Medicine 09/13/24 documented as of this encounter
--- OUTSIDE RECORDS SUMMARY | 2025-06-19 20:20 | XMS_ITS | Encounter Summary ---
Author Organization [facility] Address [address] [place] [address] Care Team Providers Care Lead Oracle Developer Name Role Phone Erickson Melton MD Primary Care Provider +1- [phone] Encounter Details Date Type Department Care Team (Late st Contact Info) Description 10/26/2024 Lab Requisition [facility] - Main Lab 299 [facility] [place] [address] Erickson Melton MD [address] [place] [address] Diarrhea, unspecified Social History Tobacco Use Types [...] loved ones. For example, early childhood teacher assistant or elderly care for an [...] Positive( A) Negative 10/26/2024 4:33 PM EDT [facility] C difficile Toxins A+B, EIA Positive( AA) Negative 10/26/2024 4:33 PM EDT [facility] Comment: CRITICAL RESULT POSITIVE FOR TOXIN PRODUCING CLOSTRIDIOIDES DIFFICILE, NO ADDITIONAL TESTING IS NECESSARY. REPEAT SAMPLES SHOULD NOT BE SUBMITTED FOR TEST OF CURE. Stool Rectum structure / Unknown 10/26/2024 10/26/2024 3:36 PM EDT us Erickson Melton MD LAB MICROBIOLOGY - GENERAL ORDERABLES Final Result [facility] [address] [place] [address], documented in this encounter Visit Diagnoses Diagnosis [...] documented as of this encounter Care Teams Lead Oracle Developer Relationship Specialty Start Date End Date Erickson Melton MD [address] [place] [address] PCP - General Internal Medicine 09/13/24 documented as of this encounter
--- OUTSIDE RECORDS SUMMARY | 2025-06-19 20:20 | XMS_ITS | Encounter Summary ---
Author Organization [facility] Address [address] [place] [address] Care Team Providers Care Train Braker Name Role Phone Erickson Melton MD Primary Care Provider +1- [phone] Encounter Details Date Type Department Care Team (Late st Contact Info) Description 09/26/2024 Lab Requisition [facility] - Main Lab 299 [facility] [place] [address] Erickson Melton MD [address] [place] [address] Anemia, unspecified; Hypothyroidism, unspecified; Other seizures (CMS/HCC [...] Result [facility] [address] [place] [address], * (ABNORMAL) Complete blood count (09/27/2024 7:12 AM EDT) WBC 7.2 4.8 - 10.8 K/mcL LAB HEMETOLOGY METHOD 09/27/2024 8:09 AM EDT [facility] RBC 3.20(L) 3.80 - 4.80 [...] LAB HEMETOLOGY METHOD 09/27/2024 8:09 AM EDT [facility] NRBC 0.0 <1.0 % LAB HEMETOLOGY METHOD 09/27/2024 8:09 AM EDT [facility] NRBC Absolute 0.00 <0.10 K/mcL LAB HEMETOLOGY METHOD 09/27/2024 8:09 AM EDT [facility] Blood Venous blood specimen / Unknown Venipuncture / Unknown 09/27/2024 7:12 AM EDT 09/27/2024 8:01 AM EDT Erickson Melton MD LAB BLOOD ORDERABLES Final Result [facility] [address] [place] [address], documented in this encounter Visit Diagnoses Diagnosis Anemia, unspecified Hypothyroidism, unspecified Other seizures (CMS/HCC V24, CMS/HCC V28) documented in this encounter Additional Health Concerns Infection Onset Date Last Indicated Resolved Time C. difficile Comment:Tested (+) at [facility]; started on PO ABT 09/29/24 NL [...] documented as of this encounter Care Teams Train Braker Relationship Specialty Start Date End Date Erickson Melton MD [address] [place] [address] PCP - General Internal Medicine 09/13/24 documented as of this encounter
--- OUTSIDE RECORDS SUMMARY | 2025-06-19 20:20 | XMS_ITS | Encounter Summary ---
Author Organization [facility] Address [address] [place] [address] Care Team Providers Care Food Service Employee Name Role Phone Erickson Melton MD Primary Care Provider +1- [phone] Encounter Details Date Type Department Care Team (Late st Contact Info) Description 09/19/[address] [facility] - Main Lab 299 [facility] [place] [address] Erickson Melton MD [address] [place] [address] Other seizures (CMS/HCC V24, CMS/HCC V28); Hypothyroidism, [...] (ABNORMAL) Thyroxine total (09/19/2024 9:04 AM EDT) [facility] T4, Total 2.8(L) 4.5 - 10.9 mcg/dL LAB CHEMISTRY METHOD 09/19/2024 1:40 PM EDT [facility] Blood Venous blood specimen / Unknown Venipuncture / Unknown 09/19/2024 9:04 AM EDT 09/19/2024 11:18 AM EDT Erickson Melton MD LAB BLOOD ORDERABLES Final Result [facility] [address] [place] [address], * (ABNORMAL) Comprehensive metabolic panel (09/19/2024 9:04 AM EDT) [facility] Sodium 139 133 - 145 mmol/L LAB CHEMISTRY METHOD 09/19/2024 1:38 PM [facility] Potassium 4.2 3.5 - 5.5 mmol/L LAB CHEMISTRY METHOD 09/19/2024 1:38 PM [facility] Chloride 97 96 - 110 mmol/L LAB CHEMISTRY METHOD 09/19/2024 1:38 PM T [facility] CO2 38(H) 21 - 32 mmol/L LAB CHEMISTRY METHOD 09/19/2024 1:38 PM [facility] Anion Gap 4 3 - 11 LAB CHEMISTRY METHOD 09/19/2024 1:38 PM [facility] Glucose 98 70 - 100 mg/dL LAB CHEMISTRY METHOD 09/19/2024 1:38 PM [facility] BUN 27(H) 5 - 25 mg/dL LAB CHEMISTRY METHOD 09/19/2024 1:38 PM T [facility] Creatinine 0.67 0.50 - 1.10 mg/dL LAB CHEMISTRY METHOD 09/19/2024 1:38 PM T [facility] eGFR 98 >=60 mL/min/1. 73m2 LAB CHEMISTRY METHOD 09/19/2024 1:38 PM [facility] Comment:Calculation based on the Chronic Kidney Disease Epidemiology Collaboration (CKD-EPI) equation refit without adjustment for race. BUN/Creatinine Ratio 40.3 LAB CHEMISTRY METHOD 09/19/2024 1:38 PM T [facility] Calcium 8.9 8.5 - 10.5 [...] ORDERABLES Final Result [facility] [address] [place] [address], * (ABNORMAL) Complete blood count (09/19/2024 9:04 AM EDT) [facility] WBC 7.4 4.8 - 10.8 K/mcL LAB HEMETOLOGY METHOD 09/19/2024 11:51 AM EDT [facility] RBC 3.30(L) 3.80 - 4.80 M/mcL LAB HEMETOLOGY METHOD 09/19/2024 11:51 AM EDT [facility] Hemoglobin 11.0(L) 11.5 - 16.0 [...] LAB HEMETOLOGY METHOD 09/19/2024 11:51 AM EDT [facility] NRBC 0.0 <1.0 % LAB HEMETOLOGY METHOD 09/19/2024 11:51 AM EDT [facility] NRBC Absolute 0.00 <0.10 K/mcL LAB HEMETOLOGY METHOD 09/19/2024 11:51 AM EDT [facility] Blood Venous blood specimen / Unknown Venipuncture / Unknown 09/19/2024 9:04 AM EDT 09/19/2024 11:18 AM EDT us Erickson Melton MD LAB BLOOD ORDERABLES Final Result [facility] [address] [place] [address], documented in this encounter Visit Diagnoses Diagnosis [...] documented as of this encounter Care Teams Food Service Employee Relationship Specialty Start Date End Date Erickson Melton MD [address] [place] [address] PCP - General Internal Medicine 09/13/24 documented as of this encounter
--- OUTSIDE RECORDS SUMMARY | 2025-06-19 20:20 | XMS_ITS | Encounter Summary ---
Author Organization [facility] Address [address] [place] [address] Care Team Providers Care Screen Maker Name Role Phone Erickson Melton MD Primary Care Provider +1- [phone] Encounter Details Date Type Department Care Team (Late st Contact Info) Description 09/19/2024 Lab Requisition [facility] - Main Lab [address] [facility] [place] [address] Erickson Melton MD [address] [place] [address] Anemia, unspecified; Hypothyroidism, unspecified; Other seizures (CMS/HCC [...] mmol/L LAB CHEMISTRY METHOD 09/20/2024 11:27 AM [facility] Potassium 4.0 3.5 - 5.5 mmol/L LAB CHEMISTRY METHOD 09/20/2024 11:27 AM [facility] Chloride 97 96 - 110 mmol/L LAB CHEMISTRY METHOD 09/20/2024 11:27 AM [facility] CO2 36(H) 21 - 32 mmol/L LAB CHEMISTRY METHOD 09/20/2024 11:27 AM [facility] Anion Gap 6 3 - 11 LAB CHEMISTRY METHOD 09/20/2024 11:27 AM [facility] Glucose 121(H) 70 - 100 mg/dL LAB CHEMISTRY METHOD 09/20/2024 11:27 AM [facility] BUN 27(H) 5 - 25 mg/dL LAB CHEMISTRY METHOD 09/20/2024 11:27 AM [facility] Creatinine 0.71 0.50 - 1.10 mg/dL LAB CHEMISTRY METHOD 09/20/2024 11:27 AM [facility] eGFR 95 >=60 mL/min/1. 73m2 LAB CHEMISTRY METHOD 09/20/2024 11:27 AM [facility] Comment:Calculation based on the Chronic Kidney Disease Epidemiology Collaboration (CKD-EPI) equation refit without adjustment for race. BUN/Creatinine Ratio 38.0 LAB CHEMISTRY METHOD 09/20/2024 11:27 AM [facility] Calcium 8.4(L) 8.5 - 10.5 mg/dL LAB CHEMISTRY METHOD 09/20/2024 11:27 AM [facility] Blood Venous blood specimen / Unknown Venipuncture / Unknown 09/20/2024 7:49 AM EDT 09/20/2024 10:04 AM EDT Erickson Melton MD LAB BLOOD ORDERABLES Final Result [facility] [address] [place] [address], * (ABNORMAL) Complete blood count (09/20/2024 7:49 AM EDT) WBC 6.1 4.8 - 10.8 K/mcL LAB HEMETOLOGY METHOD 09/20/2024 10:34 AM EDT [facility] RBC 3.30(L) 3.80 - 4.80 M/mcL LAB HEMETOLOGY METHOD 09/20/2024 10:34 AM EDT [facility] Hemoglobin 11.1(L) 11.5 - 16.0 g/dL LAB HEMETOLOGY METHOD 09/20/2024 10:34 AM EDT [facility] Hematocrit 36.2 35.0 - 47.0 % LAB HEMETOLOGY METHOD 09/20/2024 10:34 AM EDT [facility] MCV 109.7(H) 79.0 - 98.0 FL LAB HEMETOLOGY METHOD 09/20[facility]24 [facility] MCH 33.6(H) 27.0 - 32.0 pcg LAB HEMETOLOGY METHOD 09/20/2024 10:34 AM EDT [facility] MCHC 30.7(L) 32.0 - 37.0 g/dL LAB HEMETOLOGY METHOD 09/20/2024 10:34 AM EDT [facility] RDW 14.6 11.0 - 15.0 % LAB HEMETOLOGY METHOD 09/20/2024 10:[facility] Platelets 269 130 - 400 K/mcL LAB HEMETOLOGY METHOD 09/20/2024 10:34 AM EDT [facility] MPV 11.5(H) 7.0 - 11.0 FL LAB HEMETOLOGY METHOD 09/20/2024 10:34 AM EDT [facility] NRBC 0.0 <1.0 % [facility] 09/20/2024 10:34 AM EDT [facility] NRBC Absolute 0.00 <0.10 K/mcL LAB HEMETOLOGY METHOD 09/20/2024 10:34 AM EDT [facility] Blood Venous blood specimen / Unknown Venipuncture / Unknown 09/20/2024 7:49 AM EDT 09/20/2024 10:04 AM EDT Erickson Melton MD LAB BLOOD ORDERABLES Final Result [facility] [address] [place] [address], documented in this encounter Visit Diagnoses Diagnosis [...] documented as of this encounter Care Teams Screen Maker Relationship Specialty Start Date End Date Erickson Melton MD [address] [place] [address] PCP - General Internal Medicine 09/13/24 documented as of this encounter
--- OUTSIDE RECORDS SUMMARY | 2025-06-19 20:20 | XMS_ITS | Encounter Summary ---
Author Organization [facility] Address [address] [place] [address] Care Team Providers Care Fur Blowing Machine Operator Name Role Phone Erickson Melton MD Primary Care Provider +1- [phone] Encounter Details Date Type Department Care Team (Late st Contact Info) Description 11/28/2024 Lab Requisition [facility] - Main Lab 299 [facility] [place] [address] Erickson Melton MD [address] [place] [address] Pneumonia, unspecified organism; Anemia, unspecified Social History [...] loved ones. For example, child care centre manager or elderly care for an older [...] mmol/L LAB CHEMISTRY METHOD 11/29/2024 7:09 AM [facility] Potassium 4.2 3.5 - 5.5 mmol/L LAB CHEMISTRY METHOD 11/29/2024 7:09 AM [facility] Chloride 103 96 - 110 mmol/L LAB CHEMISTRY METHOD 11/29/2024 7:09 AM [facility] CO2 29 21 - 32 mmol/L LAB CHEMISTRY METHOD 11/29/2024 7:09 AM [facility] Anion Gap 7 3 - 11 LAB CHEMISTRY METHOD 11/29/2024 7:09 AM [facility] Glucose 89 70 - 100 mg/dL LAB CHEMISTRY METHOD 11/29/2024 7:09 AM [facility] BUN 23 5 - 25 mg/dL LAB CHEMISTRY METHOD 11/29/2024 7:09 AM [facility] Creatinine 0.64 0.50 - 1.10 mg/dL LAB CHEMISTRY METHOD 11/29/2024 7:09 AM [facility] eGFR 99 >=60 mL/min/1. 73m2 LAB CHEMISTRY METHOD 11/29/2024 7:09 AM [facility] Comment:Calculation based on the Chronic Kidney Disease Epidemiology Collaboration (CKD-EPI) equation refit without adjustment for race. BUN/Creatinine Ratio 35.9 LAB CHEMISTRY METHOD 11/29/2024 7:09 AM [facility] Calcium 9.6 8.5 - 10.5 mg/dL LAB CHEMISTRY METHOD 11/29/2024 7:09 AM [facility] Blood Venous blood specimen / Unknown Venipuncture / Unknown 11/29/2024 5:44 AM EDT 11/29/2024 6:24 AM EDT us Erickson Melton MD LAB BLOOD ORDERABLES Final Result [facility] [address] [place] [address], * (ABNORMAL) Complete blood count (11/29/2024 5:44 [...] Final Result [facility] [address] [place] [address], documented in this encounter Visit Diagnoses Diagnosis Pneumonia, unspecified organism Anemia, unspecified documented in this encounter Additional Health Concerns Infection Onset Date Last Indicated Resolved Time C. difficile Rule-Out 01/13/2025 01/13/20252024 4:32 AM EDT C. difficile Rule-Out 01/13/2025 01/13/20252024 10:19 AM EDT C. difficile 01/13/2025 01/13/2025 02/06/2025 7:06 PM EDT documented as of this encounter Care Teams Fur Blowing Machine Operator Relationship Specialty Start Date End Date Erickson Melton MD [address] [place] [id number] PCP - General Internal Medicine 09/13/24 documented as of this encounter
--- OUTSIDE RECORDS SUMMARY | 2025-06-19 20:20 | XMS_ITS | Encounter Summary ---
Author Organization [facility] Address [address] [place] [address] Care Team Providers Care Project Hire Name Role Phone Erickson Melton MD Primary Care Provider +1- [phone] Encounter Details Date Type Department Care Team (Late st Contact Info) Description 11/07/2024 Lab Requisition [facility] - Main Lab [address] [facility] [place] [address] Erickson Melton MD [address] [place] [address] Anemia, unspecified; Pneumonia, unspecified organism Social History [...] mmol/L LAB CHEMISTRY METHOD 11/08/2024 1:23 PM [facility] Potassium 4.7 3.5 - 5.5 mmol/L LAB CHEMISTRY METHOD 11/08/2024 1:23 PM [facility] Comment:Hemolysis present Chloride 104 96 - 110 mmol/L LAB CHEMISTRY METHOD 11/08/2024 1:23 PM [facility] CO2 30 21 - 32 mmol/L LAB CHEMISTRY METHOD 11/08/2024 1:23 PM [facility] Anion Gap 8 3 - 11 LAB CHEMISTRY METHOD 11/08/2024 1:23 PM [facility] Glucose 80 70 - 100 mg/dL LAB CHEMISTRY METHOD 11/08/2024 1:23 PM [facility] BUN 25 5 - 25 mg/dL LAB CHEMISTRY METHOD 11/08/2024 1:23 PM [facility] Creatinine 0.74 0.50 - 1.10 mg/dL LAB CHEMISTRY METHOD 11/08/2024 1:23 PM [facility] eGFR 90 >=60 mL/min/1. 73m2 LAB CHEMISTRY METHOD 11/08/2024 1:23 PM [facility] Comment:Calculation based on the Chronic Kidney Disease Epidemiology Collaboration (CKD-EPI) equation refit without adjustment for race. BUN/Creatinine Ratio 33.8 LAB CHEMISTRY METHOD 11/08/2024 1:23 PM [facility] Calcium 8.3(L) 8.5 - 10.5 mg/dL LAB CHEMISTRY METHOD 11/08/2024 1:23 PM [facility] Blood Venous blood specimen / Unknown Venipuncture / Unknown 11/08/2024 7:23 AM EDT 11/08/2024 10:27 AM EDT Erickson Melton MD LAB BLOOD ORDERABLES Final Result [facility] [address] [place] [address], * (ABNORMAL) Complete blood count (11/08/2024 7:23 AM EDT) WBC 4.7(L) 4.8 - 10.8 K/mcL LAB HEMETOLOGY METHOD 11/08/2024 11:11 AM EDT [facility] RBC 3.90 3.80 - 4.80 M/mcL LAB HEMETOLOGY METHOD 11/08/2024 11:11 AM [facility] Hemoglobin 13.1 11.5 - 16.0 g/dL LAB HEMETOLOGY METHOD 11/08/2024 11:11 AM [facility] Hematocrit 41.6 35.0 - 47.0 % LAB HEMETOLOGY METHOD 11/08/2024 11:11 AM [facility] MCV 107.5(H) 79.0 - 98.0 FL LAB HEMETOLOGY METHOD 11/08/2024 11:11 AM [facility] MCH 33.9(H) 27.0 - 32.0 pcg LAB HEMETOLOGY METHOD 11/08/2024 11:11 AM [facility] MCHC 31.5(L) 32.0 - 37.0 g/dL LAB HEMETOLOGY METHOD 11/08/2024 11:11 AM [facility] RDW 16.2(H) 11.0 - 15.0 % LAB HEMETOLOGY METHOD 11/08/2024 11:11 AM [facility] Platelets 225 130 - 400 K/mcL LAB HEMETOLOGY METHOD 11/08/2024 11:11 AM [facility] MPV 11.2(H) 7.0 - 11.0 [...] Result [facility] [address] [place] [address], documented in this encounter Visit Diagnoses Diagnosis [...] documented as of this encounter Care Teams Project Hire Relationship Specialty Start Date End Date Erickson Melton MD [address] [place] [address] PCP - General Internal Medicine 09/13/24 documented as of this encounter
--- OUTSIDE RECORDS SUMMARY | 2025-06-19 20:20 | XMS_ITS | Encounter Summary ---
Author Organization [facility] Address [address] [place] [address] Care Team Providers Care Executive Pilot Name Role Phone Erickson Melton MD Primary Care Provider +1- [phone] Encounter Details Date Type Department Care Team (Late st Contact Info) Description 09/13/2024 Lab Requisition [facility] - Main Lab [address] [facility] [place] [address] Erickosn Melton MD [address] [place] [address] Anemia, unspecified; Hypothyroidism, unspecified; Other seizures (CMS/HCC [...] - 35 ug/mL 09/16/2024 12:30 PM EDT [facility] Comment: If applicable, any drug confirmation testing reported here was developed and the performance characteristics determined by [facility]. This confirmation testing has not been cleared or approved by the FDA. The laboratory is regulated under CLIA as qualified to perform high-complexity testing. This test is used for patient testing purposes. It should not be regarded as investigational or for research. Test performed at [facility], [address] , [place] [address] Yessy Coulter MD, PhD - Rotor Pilot Blood Venous blood specimen / Unknown Venipuncture / Unknown 09/13/2024 8:54 AM EDT 09/13/2024 10:34 AM EDT Erickson Melton MD LAB BLOOD ORDERABLES Final Result [facility] [address] [place] [address] * (ABNORMAL) Thyroid stimulating hormone (09/13/2024 8:54 AM EDT) TSH 7.10(H) 0.40 - 4.00 mcIU/mL LAB CHEMISTRY METHOD 09/13/2024 1:18 PM EDT [facility] Blood Venous blood specimen / Unknown Venipuncture / Unknown 09/13/2024 8:54 AM EDT 09/13/2024 10:34 AM EDT us Erickson Melton MD LAB BLOOD ORDERABLES Final Result [facility] [address] [place] [address], * (ABNORMAL) Comprehensive metabolic panel (09/13/2024 8:54 AM EDT) Sodium 142 133 - 145 mmol/L LAB CHEMISTRY METHOD 09/13/2024 1:41 PM [facility] Potassium 4.3 3.5 - 5.5 mmol/L LAB CHEMISTRY METHOD 09/13/2024 1:41 PM [facility] Chloride 99 96 - 110 mmol/L LAB CHEMISTRY METHOD 09/13/2024 1:41 PM [facility] CO2 36(H) 21 - 32 mmol/L LAB CHEMISTRY METHOD 09/13/2024 1:41 PM [facility] Comment:Results verified by repeat testing Anion Gap 7 3 - 11 LAB CHEMISTRY METHOD 09/13/2024 1:41 PM [facility] Glucose 105(H) 70 - 100 mg/dL LAB CHEMISTRY METHOD 09/13/2024 1:41 PM [facility] BUN 23 5 - 25 mg/dL LAB CHEMISTRY METHOD 09/13/2024 1:41 PM [facility] Creatinine 0.77 0.50 - 1.10 mg/dL LAB CHEMISTRY METHOD 09/13/2024 1:41 PM [facility] eGFR 86 >=60 mL/min/1. 73m2 LAB CHEMISTRY METHOD 09/13/2024 1:41 PM [facility] Comment:Calculation based on the Chronic Kidney Disease Epidemiology Collaboration (CKD-EPI) equation refit without adjustment for race. BUN/Creatinine Ratio 29.9 LAB CHEMISTRY METHOD 09/13/2024 1:41 PM [facility] Calcium 8.9 8.5 - 10.5 mg/dL LAB CHEMISTRY METHOD 09/13/2024 1:41 PM T [facility] AST (SGOT) 25 10 - 42 unit/L LAB CHEMISTRY METHOD 09/13/2024 1:41 PM [facility] ALT (SGPT) 24 10 - 60 unit/L LAB CHEMISTRY METHOD 09/13/2024 1:41 PM T [facility] Alkaline Phosphatase 118 42 - 121 unit/L LAB CHEMISTRY METHOD 09/13/2024 1:41 PM EDT [facility] Total Protein 6.9 6.0 - 8.0 g/dL LAB CHEMISTRY METHOD 09/13/2024 1:41 PM [facility] Albumin 2.8(L) 3.2 - 5.0 g/dL LAB CHEMISTRY METHOD 09/13/2024 1:41 PM [facility] Total Bilirubin 0.2 0.0 - 1.4 mg/dL LAB CHEMISTRY METHOD 09/13/2024 1:41 PM [facility] Blood Venous blood specimen / Unknown Venipuncture / Unknown 09/13/2024 8:54 AM EDT 09/13/2024 10:34 AM EDT Erickson Melton MD LAB BLOOD ORDERABLES Final Result [facility] [address] [place] [address], * (ABNORMAL) Complete blood count (09/13/2024 8:54 AM EDT) WBC 7.6 4.8 - 10.8 K/mcL LAB HEMETOLOGY METHOD 09/13/2024 12:06 PM [facility] RBC 3.60(L) 3.80 - 4.80 M/mcL LAB HEMETOLOGY METHOD 09/13/2024 12:06 PM [facility] Hemoglobin 12.1 11.5 - 16.0 g/dL LAB HEMETOLOGY METHOD 09/13/2024 12:06 PM EDT [facility] Hematocrit 38.2 35.0 - 47.0 % LAB HEMETOLOGY METHOD 09/13/2024 12:06 PM [facility] MCV 107.0(H) 79.0 - 98.0 FL LAB HEMETOLOGY METHOD [facility] MCH 33.9(H) 27.0 - 32.0 pcg LAB HEMETOLOGY METHOD 09/13/2024 12:06 PM [facility] MCHC 31.7(L) 32.0 - 37.0 g/dL LAB HEMETOLOGY METHOD 09/13/2024 12:06 PM [facility] RDW 14.0 11.0 - 15.0 % LAB HEMETOLOGY METHOD 09/13/2024 12:06 PM [facility] Platelets 327 130 - 400 K/mcL LAB HEMETOLOGY METHOD 09/13/2024 12:06 PM [facility] MPV 11.0 7.0 - 11.0 FL LAB HEMETOLOGY METHOD 09/13/2024 12:06 PM [facility] NRBC 0.0 <1.0 % LAB HEMETOLOGY METHOD 09/13/2024 12:06 PM [facility] NRBC Absolute 0.00 <0.10 K/mcL LAB HEMETOLOGY METHOD 09/13/2024 12:06 PM [facility] Blood Venous blood specimen / Unknown Venipuncture / Unknown 09/13/2024 8:54 AM EDT 09/13/2024 10:34 AM EDT us Erickson Melton MD LAB BLOOD ORDERABLES Final Result [facility] [address] [place] [address], documented in this encounter Visit Diagnoses Diagnosis [...] documented as of this encounter Care Teams Executive Pilot Relationship Specialty Start Date End Date Erickson Melton MD [address] [place] [address] PCP - General Internal Medicine 09/13/24 documented as of this encounter
--- OUTSIDE RECORDS SUMMARY | 2025-06-19 20:20 | XMS_ITS | Encounter Summary ---
Author Organization [facility] Address [address] [place] [address] Care Team Providers Care Bumper And Painter Name Role Phone Erickson Melton MD Primary Care Provider +1- [phone] Encounter Details Date Type Department Care Team (Late st Contact Info) Description 12/12/2024 Lab Requisition [facility] - Main Lab [address] [facility] [place] [address] Erickson Melton MD [address] [place] [address] Pneumonia, unspecified organism; Anemia, unspecified Social History [...] for your loved ones. For example, children's counselor or elderly care for an older [...] documented as of this encounter Care Teams Bumper And Painter Relationship Specialty Start Date End Date Erickson Melton MD [address] [place] [address] PCP - General Internal Medicine 09/13/24 documented as of this encounter
--- OUTSIDE RECORDS SUMMARY | 2025-08-04 19:00 | XMS_ITS | Clinical Summary ---
Author Organization Unknown Care Team Providers Care Director Media Name Role Phone PO , WANDA Unavailable Unavailable CHELSEA PT, MARIEL Unavailable Unavailable SARIAH CRAWLEY TANK BUILDER, HEBER Unavailable Unavabalwinder MACDONALD TANK BUILDER, AGAPITO Unavailable Unavailable ENOC RN, BINH Unavailable Unavailable LIBERTY RN, MILADIS Unavailable Unavailable BACMARIE TANK BUILDER, BLERONA Unavailable Unavailable Payers Payer Name Policy Type Policy Number Effective Date Expira tion Date MEDICARE - [facility] - [facility] [id number] Problems Condition Name Condition Details Condition Category Status Onset Date Resolution Date Last Treatment Date Treating Clinician Comments SEPSIS, UNSPECIFIED ORGANISM Active 07-06 00:00: 00 PNEUMONIA, UNSPECIFIED ORGANISM Active 07-06 00:00: 00 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, MODERATE, WITH ANXIETY Active 07-06 00:00: 00 EPILEPSY, UNSP, NOT INTRACTABLE, WITHOUT STATUS EPILEPTICUS Active 07-06 00:00: 00 HYPOTHYROIDI SM, UNSPECIFIED Active 07-06 00:00: 00 DEM IN OTHER DIS CLASSD ELSWHR, MOD, WITH OTHER BEH DISTURB Active 07-06 00:00: 00 DEM IN OTHER DIS CLASSD ELSWHR, MODERATE, WITH MOOD DISTURB Active 07-06 00:00: 00 CHRONIC RESPIRATORY FAILURE WITH HYPOXIA Active 07-06 00:00: 00 UNSPECIFIED PROTEIN-MILLER REMI MALNUTRITION Active 07-06 00:00: 00 ESSENTIAL (PRIMARY) HYPERTENSION Active 07-06 00:00: 00 DOWN SYNDROME, UNSPECIFIED Active 07-06 00:00: 00 GASTROSTOMY STATUS Active 07-06 00:00: 00 GASTRO-ESOPH AGEAL REFLUX DISEASE WITHOUT ESOPHAGITIS Active 07-06 00:00: 00 ANEMIA, UNSPECIFIED Active 07-06 00:00: 00 DYSPHASIA FOLLOWING CEREBRAL INFARCTION Active 07-06 00:00: 00 HYPERLIPIDEM IA, UNSPECIFIED Active 07-06 00:00: 00 SPINAL STENOSIS, OCCIPITO-ANDREA ANTO-AXIAL REGION Active 07-06 00:00: 00 CATARACT EXTRACTION STATUS, LEFT EYE Active 07-06 00:00: 00 PENITENTIARY (CURRENT) USE OF ASPIRIN Active 07-06 00:00: [...] 12-08 00:00: 00 04-05 23:59 :00 No [id number] 1 capsule DAILY 1 capsule DAILY (route: oral) Alternate Route: G-TUBE. Med Classific ation: Gastroint estinal Therapy Agents Pain Relief (acetaminop hen) 160 mg/5 mL oral liquid 12-08 00:00: 00 04-05 23:59 :00 No [id number] 640 mg EVERY 4 HOURS 640 mg EVERY 4 HOURS (route: oral) Alternate Route: G-TUBE. Med Classific ation: Analgesic , Anti-infl ammatory or Antipyret ic Aspirin Childrens 81 mg chewable tablet 12-08 00:00: 00 04-05 23:59 :00 No [id number] 1 tablet DAILY 1 tablet DAILY (route: oral) Alternate Route: G-TUBE. Med Classific ation: Hematolog ical Agents Cetaphil Moisturizin g lotion 12-08 00:00: 00 04-05 23:59 :00 No [id number] 1 mL NEEDED 1 mL NEEDED (route: topical) Med Classific ation: Dermatolo gical Dulcolax (magnesium hydroxide) 400 mg/5 mL oral suspension 12-08 00:00: 00 04-05 23:59 :00 No [id number] 30 mL DAILY 30 mL DAILY (route: oral) Alternate Route: G-TUBE. Med Classific ation: Gastroint estinal Therapy Agents Fleet Enema 19 gram-7 gram/118 mL 12-08 00:00: 00 04-05 23:59 :00 No [id number] 19 g DAILY 19 g DAILY (route: rectal) Med Classific ation: Gastroint estinal Therapy Agents fluticasone propionate 50 mcg/actuati on nasal spray,suspe nsion 12-08 00:00: 00 03-03 23:59 :00 No [id number] 1 spray DAILY 1 spray DAILY (route: nasal) Med Classific ation: Respirato ry Therapy Agents gabapentin 100 mg capsule 12-08 00:00: 00 03-03 23:59 :00 No [id number] 1 capsule BEDTIME 1 capsule BEDTIME (route: oral) Alternate Route: G-TUBE. Med Classific ation: Central Nervous System Agents ipratropium 0.5 mg-albutero l 2.5 mg/2.5 mL solution for nebulizatio n 12-08 00:00: 00 04-05 23:59 :00 No [id number] 3 mg NEEDED 3 mg NEEDED (route: inhalation ) Med Classific ation: Respirato ry Therapy Agents levothyroxi ne 137 mcg tablet 12-08 00:00: 04-05 23:59 :00 No [id number] 1 tablet DAILY 1 tablet DAILY (route: oral) Alternate Route: G-TUBE. Med Classific ation: Endocrine midodrine 5 mg tablet 12-08 00:00: 00 04-05 23:59 :00 No [id number] 2 tablet 3 TIMES DAILY 2 tablet 3 TIMES DAILY (route: oral) Alternate Route: G-TUBE. Med Classific ation: Cardiovas cular Therapy Agents oxcarbazepi ne 150 mg tablet 12-08 00:00: 00 03-03 23:59 :00 No [id number] 1 tablet 2 TIMES DAILY 1 tablet 2 TIMES DAILY (route: oral) Alternate Route: G-TUBE. Med Classific ation: Central Nervous System Agents Proctosol HC 2.5 % topical cream perineal applicator 12-08 00:00: 00 04-05 23:59 :00 No [id number] 1 applica tor 2 TIMES DAILY 1 applicator 2 TIMES DAILY (route: topical) Med Classific ation: Anorectal Preparati ons vancomycin 50 mg/mL oral solution 12-08 00:00: 00 01-31 00:00 :00 No [id number] 2.5 mL EVERY OTHER DAY 2.5 mL EVERY OTHER DAY (route: oral) Alternate Route: G-TUBE. Med Classific ation: Anti-Infe ctive Agents zinc oxide topical ointment 02-06 00:00: 00 04-05 23:59 :00 No [id number] Per instruc tions NEEDED Per instructio ns NEEDED (route: topical) Med Classific ation: Dermatolo gical Clotrimazol e AF 1 % topical cream 02-16 00:00: 00 04-05 23:59 :00 No [id number] Per instruc tions 2 TIMES DAILY Per instructio ns 2 TIMES DAILY (route: topical) Med Classific ation: Dermatolo gical oxcarbazepi ne 150 mg tablet 03-03 00:00: 00 04-05 23:59 :00 No [id number] 75 mg 2 TIMES DAILY 75 mg 2 TIMES DAILY (route: oral) Med Classific ation: Central Nervous System Agents trazodone 50 mg tablet 03-03 00:00: 00 04-05 23:59 :00 No [id number] 1 tablet 2 TIMES DAILY 1 tablet 2 TIMES DAILY (route: oral) Med Classific ation: Central Nervous System Agents acetaminoph en 160 mg/5 mL (5 mL) oral solution 2024-07 0-04 00:00: 00 Yes [id number] 650 mg NEEDED 650 mg NEEDED (route: oral) Med Classific ation: Analgesic , Anti-infl ammatory or Antipyret ic aspirin 81 mg tablet 2024-07 0- 00:00: 00 Yes [id number] 1 tablet DAILY 1 tablet DAILY (route: oral) Med Classific ation: Hematolog ical Agents levothyroxi ne 137 mcg tablet 2024-07 0- 00:00: 00 Yes [id number] 1 tablet DAILY 1 tablet DAILY (route: oral) Med Classific ation: Endocrine midodrine 10 mg tablet 2024-07 0- 00:00: 00 Yes [id number] 1 tablet 3 TIMES DAILY 1 tablet 3 TIMES DAILY (route: oral) Med Classific ation: Cardiovas cular Therapy Agents oxcarbazepi ne 150 mg tablet 2024-07 0 00:00: 00 Yes [id number] 1 tablet 2 TIMES DAILY 1 tablet 2 TIMES DAILY (route: oral) Med Classific ation: Central Nervous System Agents trazodone 50 mg tablet 2024-07 0 00:00: 00 Yes [id number] 1 tablet BEDTIME 1 tablet BEDTIME (route: oral) Med Classific ation: Central Nervous System Agents Lactobacill us acidophilus 500 million cell capsule 12-06 00:00: 00 Yes [id number] 1 capsule 3 TIMES DAILY 1 capsule 3 TIMES DAILY (route: oral) Med Classific ation: Gastroint estinal Therapy Agents cefdinir 300 mg capsule 2024-07 00:00: 00 05-28 23:59 :00 No [id number] 1 capsule EVERY 12 HOURS 1 capsule EVERY 12 HOURS (route: oral) Med Classific ation: Anti-Infe ctive Agents doxycycline hyclate 100 mg capsule 2024-07 00:00: 00 05-29 23:59 :00 No [id number] 1 capsule EVERY 12 HOURS 1 capsule EVERY 12 HOURS (route: oral) Med Classific ation: Anti-Infe ctive Agents Immunizations Ordered Immunization Name Filled Immunization Name Date Status Comments Refusal Reason INFLUENZA, TIV (INACTIVATED) 2024-04-13 00:00:00 Vital Signs Vital Name Observation Time Observation Value Commen ts Temperature 2025-06-13 15:17:00.000 98.1 [degF] Temperature 2025-06-13 11:03:00.000 97.5 [degF] Temperature 2025-06-08 11:39:00.000 98.2 [degF] Pulse 2025-06-13 15:17:00.000 62 /min Pulse 2025-06-13 11:03:00.000 63 /min Pulse 2025-06-08 11:46:00.000 55 /min O2 Saturation (%) 2025-06-13 11:03:00.000 98 % O2 Saturation (%) 2025-06-08 11:39:00.000 96 % Respirations 2025-06-13 15:17:00.000 18 /min Respirations 2025-06-13 11:03:00.000 16 /min Respirations 2025-06-08 11:39:00.000 18 /min Systolic Blood Pressure 2025-06-13 15:17:00.000 112 mm [Hg] Systolic Blood Pressure 2025-06-13 11:03:00.000 88 mm[ Hg] Systolic Blood Pressure 2025-06-08 11:46:00.000 100 mm [Hg] Diastolic Blood Pressure 2025-06-13 15:17:00.000 62 mm [Hg] Diastolic Blood Pressure 2025-06-13 11:03:00.000 58 mm [Hg] Diastolic Blood Pressure 2025-06-08 11:46:00.000 56 mm [Hg] Plan of Treatment Planned Activity Planned Date Details Comments Future Scheduled Test SKILLED NU RSE TO EVALUATE PATIENT, IDENTIFY PRIMARY AND CO-MORBID CONDITIONS CODED PER CODING GUIDELINES, AND DEVELOP PATIENT SPECIFIC PLAN OF CARE THAT INCLUDES PATIENT GOAL FOR HOME HEALTH. PLAN OF CARE TO INCLUDE 3 PRN VISIT(S) FOR OASIS DATA COLLECTION/COMPREHENSIVE ASSESSMENT AT TIMEPOINTS PER FEDERAL REGULATIONS. THIS INCLUDES VISITS FOR LITA, RECERT, SCIC, AND/OR DC. [code = SKILLED NURSE TO EVALUATE PATIENT, IDENTIFY PRIMARY AND CO-MORBID CONDITIONS CODED PER CODING GUIDELINES, AND DEVELOP PATIENT SPECIFIC PLAN OF CARE THAT INCLUDES PATIENT GOAL FOR HOME HEALTH. PLAN OF CARE TO INCLUDE 3 PRN VISIT(S) FOR OASIS DATA COLLECTION/COMPREHENSIVE ASSESSMENT AT TIMEPOINTS PER FEDERAL REGULATIONS. THIS INCLUDES VISITS FOR LITA, RECERT, SCIC, AND/OR DC.] Future Scheduled Test SKILLED NU RSE TO [...] MAINTAIN SITUATIONAL AWARENESS AND WILL NOTIFY CLINICAL FIRMWARE DEVELOPER AND PHYSICIAN/PROVIDER WITH ANY CHANGE IN CONDITION. [code = SKILLED NURSE TO PERFORM ENVIRONMENTAL SAFETY RISK ASSESSMENT AND FALL RISK ASSESSMENT AND PROVIDE INSTRUCTION TO IMPLEMENT ENVIRONMENTAL SAFETY AND FALL PREVENTION STRATEGIES THROUGHOUT THE CERTIFICATION PERIOD. SKILLED NURSE WILL MAINTAIN SITUATIONAL AWARENESS AND WILL NOTIFY CLINICAL FIRMWARE DEVELOPER AND PHYSICIAN/PROVIDER WITH ANY CHANGE IN CONDITION.] [...] TO PREVENT PRESSURE ULCERS.] Future Scheduled Test PHYSICAL T HERAPIST TO EVALUATE PATIENT FOR PHYSICAL DECONDITIONING [code = PHYSICAL THERAPIST TO EVALUATE PATIENT FOR PHYSICAL DECONDITIONING] Future Scheduled Test SKILLED NU RSE FOR O/A OF RESPIRATORY SYSTEM TO IDENTIFY CHANGES ASSOCIATED WITH EXACERBATION AND TO PROVIDE SKILLED TEACHING ON MANAGEMENT OF PNEUMONIA RESPIRATORY DISEASE PROCESS. [code = SKILLED NURSE FOR O/A OF RESPIRATORY SYSTEM TO IDENTIFY CHANGES ASSOCIATED WITH EXACERBATION AND TO PROVIDE SKILLED TEACHING ON MANAGEMENT OF PNEUMONIA RESPIRATORY DISEASE PROCESS.] Future Scheduled Test SKILLED NU RSE FOR TEACHING REGARDING THE ADMINISTRATION OF ENTERAL NUTRITION VIA G-TUBE, TWOCAL HN AT 28 ML/HR CONTINUOUS VIA KANGAROO PUMP. 5 WATER FLUSHES OF 110 MLS DAILY, AND 30 MLS OF WATER FLUSHES BEFORE AND AFTER MEDICATION ADMINISTRATION. INCLUDING TEACHING ON ASPIRATION PRECAUTIONS, CHANGE DRAIN SPONGE DAILY, AND S/S OF COMPLICATIONS TO REPORT. [code = SKILLED NURSE FOR TEACHING REGARDING THE ADMINISTRATION OF ENTERAL NUTRITION VIA G-TUBE, TWOCAL HN AT 28 ML/HR CONTINUOUS VIA KANGAROO PUMP. 5 WATER FLUSHES OF 110 MLS DAILY, AND 30 MLS OF WATER FLUSHES BEFORE AND AFTER MEDICATION ADMINISTRATION. INCLUDING TEACHING ON ASPIRATION PRECAUTIONS, CHANGE DRAIN SPONGE DAILY, AND S/S OF COMPLICATIONS TO REPORT.] Future Scheduled Test SKILLED NU RSE FOR [...] SKILLED NU RSE TO INSTRUCT PATIENT/CAREGIVER ON COPD TO INCLUDE TEACHING AND SELF-MANAGEMENT RELATED TO COPD DISEASE PROCESS, SIGNS AND SYMPTOMS, AND COMPLICATIONS. [code = SKILLED NURSE TO INSTRUCT PATIENT/CAREGIVER ON COPD TO INCLUDE TEACHING AND SELF-MANAGEMENT RELATED TO COPD DISEASE PROCESS, SIGNS AND SYMPTOMS, AND COMPLICATIONS.] Future Scheduled Test PHYSICAL T HERAPY TO EVALUATE AND TREAT. PHYSICAL THERAPY EVALUATION PERFORMED. NO ADDITIONAL VISITS REQUIRED. [code = PHYSICAL THERAPY TO EVALUATE AND TREAT. PHYSICAL THERAPY EVALUATION PERFORMED. NO ADDITIONAL VISITS REQUIRED.] Goal 2025-05-27 Patient Goal - [facility] OF [facility] Goal 2025-06-05 Patient Goal - STAY OUT OF [facility] Goal Patient Goal - STAY OUT OF [facility] Goal Provider Goal - A PLAN OF CARE WILL BE ESTABLISHED THAT MEETS PATIENT'S [facility] NEEDS AND INCLUDES PATIENT GOAL FOR HOME [...] OF THE EPISODE. Goal Provider Goal - A PHYSICAL THERAPY EVALUATION TO BE COMPLETED WITH RECOMMENDATIONS AND/OR WRITTEN PLAN OF TREATMENT ESTABLISHED FOR PHYSICIAN S SIGNATURE. Goal Provider Goal - PATIENT/CAREGIVER WILL VERBALIZE/DEMONSTRATE MANAGEMENT OF PNEUMONIA RESPIRATORY DISEASE PROCESS. CHANGES IN RESPIRATORY STATUS [...] Goal Provider Goal - PATIENT/CAREGIVER WILL VERBALIZE/DEMONSTRATE KNOWLEDGE AND MANAGEMENT OF COPD BY END OF EPISODE. Goal Provider Goal - NONE Encounters Start Date/Time End Date/Time Encounter Type Admission Type Attending [facility] Care Department Encounter ID Discharge Date Discharge Status Discharge Condition Discharge Reason Percent Goals Met 2025-06-07 00:00:00 2025-08-05 00:00:00 Outpatient RECERTIFIC ATION [facility] [id number] 23.08
== END ==
LOC: HO.CARD 13:57
PROVIDERS: PCP Internal Medicine
DX: Z01.810 Encounter for preprocedural cardiovascular examination (principal); I44.7 Left bundle-branch block, unspecified
CPT/HCPCS: 93306

== ENCOUNTER → 2025-06-19 14:02 | Outpatient (BNV) | payer MEDICARE, MEDICAID, SELFPAY | PROVIDERS: PCP Internal Medicine; Visit Provider Internal Medicine Cardiovascular Disease | DX: I42.2 Other hypertrophic cardiomyopathy (principal); I51.89 Other ill-defined heart diseases; I35.8 Other nonrheumatic aortic valve disorders; I34.89 Other nonrheumatic mitral valve disorders | CPT/HCPCS: 93306 ==